=== PATIENT | female | born 1945 | race Caucasian/White ===

== ENCOUNTER → 2024-01-01 05:00 | Outpatient (REF) | payer MEDICARE, SELFPAY ==
[2024-01-01 08:41] LABS: Hematocrit 38.7 % (37-47); Hemoglobin 12.7 g/dL (12.0-15.0); Mean Corp Hgb Conc 32.8 g/dL (32-36); Mean Corpuscular Hgb 29.3 pg (27.0-32.0); Mean Corpuscular Volume 89.2 fL (81-99); Mean Platelet Vol. 9.1 fl (6.2-12.0); Platelet Count 448 K/mm3 (150-450); RBC Distribution Width CV 13.9 % (11.6-14.6); RBC Distribution Width SD 45.8 fl (35.1-43.9); Red Blood Count 4.34 M/mm3 (4.2-5.4); White Blood Count 10.5 K/mm3 (4.4-11.0)
[2024-01-01 09:21] LABS: Anion Gap 6 (5-15); BUN 12 mg/dL (7-18); BUN/Creat Ratio 14.8 RATIO (10-20); Calcium,Total 9.8 mg/dL (8.5-10.1); Chloride 94 mmol/L (98-107); Cholesterol 129 mg/dL (200); Creatinine, Serum 0.81 mg/dL (0.55-1.02); EST Glomerular Filtration Rate 73 mL/min (>60); Est Glom Filt Rate - Afr Amer 88 mL/min (>60); Glucose 121 mg/dL (74-106); High Density Lipoprotein 55 mg/dL; Magnesium 1.9 mg/dL (1.6-2.6); Sodium Level 127 mmol/L (136-145); Thyroid Stim Hormone (TSH) 7.63 uIU/mL (0.358-3.74); Triglycerides 171 mg/dL; Very Low Density Lipoprotein 34 mg/dL (5-40)
[2024-01-01 12:38] LABS: Hemoglobin A1c 5.5 % (3.8-5.6)
== END ==
LOC: OLS.ACW100 05:00
PROVIDERS: Visit Provider Family Medicine
DX: S22.41XD Multiple fractures of ribs, right side, subsequent encounter for fracture with routine healing (principal); J94.2 Hemothorax; R26.2 Difficulty in walking, not elsewhere classified; R27.9 Unspecified lack of coordination
CPT/HCPCS: 36415; 80048; 80061; 82306; 83036; 83735; 84443; 85027

== ENCOUNTER → 2024-01-10 | Outpatient (REF) | payer MEDICARE, SELFPAY ==
[2024-01-10 08:28] LABS: Hematocrit 34.7 % (37-47); Hemoglobin 11.3 g/dL (12.0-15.0); Mean Corp Hgb Conc 32.6 g/dL (32-36); Mean Platelet Vol. 9.7 fl (6.2-12.0); Platelet Count 239 K/mm3 (150-450); RBC Distribution Width CV 13.4 % (11.6-14.6); RBC Distribution Width SD 45.4 fl (35.1-43.9); Red Blood Count 3.77 M/mm3 (4.2-5.4); White Blood Count 7.8 K/mm3 (4.4-11.0)
[2024-01-10 09:06] LABS: Anion Gap 3 (5-15); BUN 19 mg/dL (7-18); BUN/Creat Ratio 21.1 RATIO (10-20); Calcium,Total 9.8 mg/dL (8.5-10.1); Chloride 103 mmol/L (98-107); EST Glomerular Filtration Rate 65 mL/min (>60); Est Glom Filt Rate - Afr Amer 78 mL/min (>60); Glucose 159 mg/dL (74-106); Potassium 4.3 mmol/L (3.5-5.1); Sodium Level 135 mmol/L (136-145)
== END ==
LOC: OLS.ACW100 05:00
PROVIDERS: Visit Provider Family Medicine
DX: J20.8 Acute bronchitis due to other specified organisms (principal); J45.909 Unspecified asthma, uncomplicated
CPT/HCPCS: 36415; 80048; 85027

== ENCOUNTER → 2024-01-17 05:00 | Outpatient (REF) | payer MEDICARE, SELFPAY ==
[2024-01-17 07:46] LABS: Hematocrit 36.3 % (37-47); Hemoglobin 11.7 g/dL (12.0-15.0); Mean Corp Hgb Conc 32.2 g/dL (32-36); Mean Corpuscular Hgb 29.9 pg (27.0-32.0); Mean Corpuscular Volume 92.8 fL (81-99); Mean Platelet Vol. 9.7 fl (6.2-12.0); Platelet Count 274 K/mm3 (150-450); RBC Distribution Width CV 13.7 % (11.6-14.6); RBC Distribution Width SD 46.3 fl (35.1-43.9); Red Blood Count 3.91 M/mm3 (4.2-5.4); White Blood Count 7.6 K/mm3 (4.4-11.0)
[2024-01-17 08:07] LABS: Anion Gap 4 (5-15); BUN 19 mg/dL (7-18); BUN/Creat Ratio 20.2 RATIO (10-20); Calcium,Total 10.2 mg/dL (8.5-10.1); Chloride 106 mmol/L (98-107); Creatinine, Serum 0.94 mg/dL (0.55-1.02); EST Glomerular Filtration Rate 61 mL/min (>60); Est Glom Filt Rate - Afr Amer 74 mL/min (>60); Glucose 77 mg/dL (74-106); Potassium 4.3 mmol/L (3.5-5.1); Sodium Level 137 mmol/L (136-145)
== END ==
LOC: OLS.ACW100 05:00
PROVIDERS: Visit Provider Family Medicine
DX: M62.81 Muscle weakness (generalized) (principal); S22.41XD Multiple fractures of ribs, right side, subsequent encounter for fracture with routine healing; J94.2 Hemothorax; R53.1 Weakness; R26.2 Difficulty in walking, not elsewhere classified; R27.9 Unspecified lack of coordination
CPT/HCPCS: 36415; 80048; 85027

== ENCOUNTER → 2024-10-23 | Outpatient (REF) | payer MEDICARE, SELFPAY ==
[2024-10-23 08:40] LABS: Hematocrit 40.2 % (37-47); Mean Corp Hgb Conc 32.3 g/dL (32-36); Mean Corpuscular Hgb 29.1 pg (27.0-32.0); Mean Corpuscular Volume 90.1 fL (81-99); Mean Platelet Vol. 9.8 fl (6.2-12.0); Platelet Count 239 K/mm3 (150-450); RBC Distribution Width CV 13.2 % (11.6-14.6); RBC Distribution Width SD 43.3 fl (35.1-43.9); Red Blood Count 4.46 M/mm3 (4.2-5.4); White Blood Count 9.9 K/mm3 (4.4-11.0)
[2024-10-23 11:10] LABS: ALB/GLOB Ratio 1.3 RATIO (0.9-2.4); AST(SGOT) 15 U/L (<=31); Alanine Aminotransfer ALT/SGPT 10 U/L (<=34); Albumin, Serum 3.4 g/dL (3.4-4.8); Alkaline Phosphatase 58 U/L (35-104); Anion Gap 8 (5-15); BUN 23 mg/dL (4-19); BUN/Creat Ratio 27.6 RATIO (10-20); Calcium 10.2 mg/dL (7.6-11.0); Carbon Dioxide 24.2 mmol/L (22.0-29.0); Chloride 103 mmol/L (96-108); Creatinine, Serum 0.8 mg/dL (0.6-1.0); EST Glomerular Filtration Rate 72 (>60); Globulin 2.7 g/dL (2.2-4.2); Glucose 178 mg/dL (70-99); Magnesium 1.9 mg/dL (1.5-2.2); Potassium 4.3 mmol/L (3.3-5.1); Protein, Total 6.1 g/dL (5.9-8.4); Sodium Level 136 mmol/L (133-145); Total Bilirubin 0.28 mg/dL (0.00-1.30); Vitamin D,25 Hydroxy 29.8 ng/mL (30-100)
[2024-10-23 20:13] LABS: Cholesterol 173 mg/dL (<=200); High Density Lipoprotein 38 mg/dL; Low Density Lipoprotein Calc. 94 mg/dL; Triglycerides 208 mg/dL; Very Low Density Lipoprotein 42 mg/dL (5-40); cholesterol:hdl ratio screen 4.58
== END ==
LOC: OLS.ACW100 05:00
PROVIDERS: Visit Provider Family Medicine
DX: N39.0 Urinary tract infection, site not specified (principal); R53.81 Other malaise; R53.83 Other fatigue
CPT/HCPCS: 36415; 80053; 80061; 82306; 83036; 83735; 84443; 85027

== ENCOUNTER → 2024-11-03 | Outpatient (REF) | payer MEDICARE, SELFPAY ==
[2024-11-04 08:56] LABS: Color, Urine Yellow (Yellow); Glucose, Dipstick Normal (Normal); Ketone-Dipstick Negative (Negative); Leukocyte Esterase-Dipstick 25 /ul (Negative); Nitrite-Dipstick Negative (Negative); Occult Blood-Urine 25 /ul (Negative); Protein-Dipstick 30 mg/dl (Negative); Specific Gravity, Urine 1.015 (1.002-1.030); Urine Bilirubin Dipstick Negative (Negative); Urine Clarity Clear (Clear); Urine Urobilinogen Normal (Normal)
== END ==
LOC: OLS.ACW100 21:30
PROVIDERS: Visit Provider Family Medicine
DX: N39.0 Urinary tract infection, site not specified (principal)
CPT/HCPCS: 81002; 87086; 87088

== ENCOUNTER → 2025-06-11 05:00 | Outpatient (REF) | payer MEDICARE, SELFPAY ==
[2025-06-11 09:31] LABS: Hematocrit 38.8 % (37-47); Hemoglobin 13.2 g/dL (12.0-15.0); Mean Corp Hgb Conc 34.0 g/dL (32-36); Mean Corpuscular Volume 87.6 fL (81-99); Mean Platelet Vol. 10.0 fl (6.2-12.0); Platelet Count 264 K/mm3 (150-450); RBC Distribution Width CV 12.8 % (11.6-14.6); RBC Distribution Width SD 41.2 fl (35.1-43.9); Red Blood Count 4.43 M/mm3 (4.2-5.4); White Blood Count 8.5 K/mm3 (4.4-11.0)
[2025-06-11 10:02] LABS: AST(SGOT) 16 U/L (<=31); Alanine Aminotransfer ALT/SGPT 8 U/L (<=34); Albumin, Serum 3.6 g/dL (3.4-4.8); Alkaline Phosphatase 43 U/L (35-104); Anion Gap 9 (5-15); BUN 24 mg/dL (4-19); BUN/Creat Ratio 27.4 RATIO (10-20); Calcium,Total 10.4 mg/dL (7.6-11.0); Carbon Dioxide 25.7 mmol/L (21.0-32.0); Chloride 103 mmol/L (98-108); Cholesterol 188 mg/dL (<=200); Globulin 2.5 g/dL (2.2-4.2); Glucose 152 mg/dL (70-99); Low Density Lipoprotein Calc. 105 mg/dL; Potassium 4.3 mmol/L (3.3-5.1); Triglycerides 217 mg/dL; Very Low Density Lipoprotein 43 mg/dL (5-40); Vitamin D,25 Hydroxy 33.0 ng/mL (30-100); cholesterol:hdl ratio screen 4.76
== END ==
LOC: OLS.ACW100 05:00
PROVIDERS: Visit Provider Family Medicine
DX: N39.0 Urinary tract infection, site not specified (principal); W19.XXXD Unspecified fall, subsequent encounter; Z74.1 Need for assistance with personal care; R53.81 Other malaise; J94.2 Hemothorax
CPT/HCPCS: 36415; 80053; 80061; 82306; 83036; 85027

== ENCOUNTER → 2025-07-03 05:00 | Outpatient (REF) | payer MEDICARE, SELFPAY ==
--- OUTSIDE RECORDS SUMMARY | 2025-07-03 04:11 | XMS RPT_ITS | CCD ---
Author Organization [facility] Care Team Providers Care Bond Analyst Name Role Phone Grecia Mccabe Primary Care Provider [phone] Farida OG, Neno Tipton Primary Care Provider Farida OG, Neno Tipton Primary Care Provider Eliot OG, Grecia Primary Care Provider Mónica Roach Attending Provider Unavailsumi Iqbal MD, Neno Tipton Primary Care Provider Farida OG, Neno Tipton Primary Care Provider Ezzie DYE MAKER - PROGRAM DEVELOPMENT MANAGER, Agueda Unavailable Farida OG, Neno Tipton Primary Care Provider Ezzie DYE MAKER - PROGRAM DEVELOPMENT MANAGER, Agueda Unavailable [phone] Mónica Roach Attending Unavailable Mónica Roach Attending Unavailable Mónica Roach Attending Unavailable Neno Euceda MD Unavailable [phone] FARIDA, NENO Primary Care Unavailable MÓNICA TIWARI Admitting Unavailable ARIES CORTEZ Consulting Unavailable WALDO GUILLEN Attending Unavailable IQBAL, NENO Primary Care Unavailable GUILLENWALDO Attending Unavailable GUILLEN WALDO Admitting Unavailable MANISHA PASTOR Consulting Unavailable IQBAL, NENO Primary Care Unavailable JOSY DUENAS Admitting Unavailable SEEMA BARAHONA Attending Unavailable YIFAN DOOLEY Attending Unavailable IQBAL, NENO Primary Care Unavailable EZZIE, AGUEDA Attending Unavailable EZZIE, AGUEDA Referring Unavailable IQBAL, NENO Primary Care Unavailable EZZIE, AGUEDA Attending Unavailable BIRDIE STEELE Referring Unavailable IQBAL, NENO Primary Care Unavailable JOHN CRUZ Attending Unavailable IQBAL, NENO Primary Care Unavailable JOHN CRUZ Attending Unavailable IQBAL, NENO Primary Care Unavailable IQBAL, NENO Primary Care Unavailable EZZIE, AGUEDA Attending Unavailable AGUEDA BURCH Attending Unavailable [facility] Primary [facility] Unavailable LAZARA MOCTEZUMA Attending Unavailable [facility] Primary [facility] Unavailable Allergies Allergy Classification Reported Allergen(s) Allergy Type Date of Onset Reaction(s) Facility (20 sources) Aluminum aspirin Drug Allergy 5 Swelling, Hives [place] (4 sources) Sulfonamides (Antibiotic) Propensity to adverse reactions to drug 5 Swelling [place] (20 sources) Penicillins Propensity to adverse reactions 2 [facility] (20 sources) Sulfonamides (Antibiotic) Drug Intolerance 5 Hives, Swelling [facility] Medications Current Medications Medication Drug Class(es) Dates Sig (Normalized) Sig (Original) acetaminophen 325 mg / oxyCODONE hydrochloride 5 mg oral tablet (4 sources) Opioid Agonist Start: 08-01-2021 End: 08-06-2021 oxyCODONE-acetamin ophen (PERCOCET) 5-325 MG per tablet Indications: Closed fracture of one rib of left side, initial encounter Take 1 tablet by mouth every 6 hours as needed for Pain for up to 5 days. Intended supply: 5 days. Take lowest dose possible to manage pain 20 tablet 0 08/01/2021 08/06/2021 Active Start: 01-21-2020 oxyCODONE-acet aminophen (PERCOCET) 5-325 MG per tablet 1 tablet Start: 01-21-2020 End: 01-28-2020 take 1-2 tablets by mouth every four hours as needed for pain oxyCODONE-acetaminophen (PERCOCET) 5-325 MG per tablet Indications: Hip fracture requiring operative repair, right, closed, initial encounter ([facility]) Take 1-2 tablets by mouth every 4 hours as needed for Pain for up to 7 days. 42 tablet 0 01/21/2020 01/28/2020 Active End: 01-21-2020 take 1 tablet by mouth three times daily oxyCODONE-acetaminophen (PERCOCET) 5-325 MG per tablet Take 1 tablet by mouth 3 times daily. 0 01/21/2020 Discontinued (LIST CLEANUP) Blood Glucose Monitoring Suppl (BLOOD GLUCOSE MONITOR SYSTEM) w/Device KIT (1 source) Start: 01-20-2020 Blood Glucose Monitoring Suppl (BLOOD GLUCOSE MONITOR SYSTEM) w/Device KIT Indications: Uncontrolled type 2 diabetes mellitus without complication, with long-term current use of insulin (HCC) 1 Device by Does not apply route daily Dispense what is covered by insurance 1 kit 0 01/20/2020 Active bupivacaine hydrochloride 2.5 mg/ml injectable solution (1 source) Amide Local Anesthetic Start: 06-09-2020 bupivacaine (MARCAINE) 0.25 % injection 75 mg Continuous Glucose Sensor (Dexcom G7 Sensor) misc (20 sources) Continuous Gluco se Sensor (Dexcom G7 Sensor) misc 1 Device as needed. Use a new sensor every 10 days. Active docusate sodium 50 mg oral capsule (1 source) Start: 01-21-2020 take 2 capsules by mouth twice daily as needed for pain docusate sodium (COLACE) 50 MG capsule Take 2 capsules by mouth 2 times daily 2x daily as needed for constipation while on pain meds 60 capsule 0 01/21/2020 Active docusate sodium 50 mg / sennosides, fdc 8.6 mg oral tablet (3 sources) Start: 01-21-2020 take 1 tablet by mouth twice daily 1 tablet, Oral, 2 TIMES DAILY, First dose on Sun01/21/20 at 2100, Post-op Start: 12-03-2019 take 2 tablets by [facility] once daily sennosides-docusate sodium (SENOKOT-S) 8.6-50 MG tablet Take 2 tablets by mouth daily 0 12/03/2019 Active Start: 12-03-2019 sennosides-doc usate sodium (SENOKOT-S) 8.6-50 MG tablet 2 tablet doxycycline hyclate 100 mg oral tablet (1 source) Tetracycline-class Drug Start: 01-21-2020 End: 01-28-2020 take 1 tablet by mouth twice daily doxycycline hyclate (VIBRA-TABS) 100 MG tablet Take 1 tablet by mouth 2 times daily for 7 days 14 tablet 0 01/21/2020 01/28/2020 Active ergocalciferol 1.25 mg oral capsule (8 sources) Provitamin D2 Compound Start: 12-29-2023 End: 01-22-2024 take 1 capsule by mouth every week ergocalciferol (Vitamin D2) 1.25 MG (42579 UT) capsule Take 1 capsule (1.25 mg) by mouth 1 (one) time per week for 2 doses. 0 01/14/2024 01/22/2024 Active Start: 12-15-2023 End: 12-24-2023 take 1.25 mg by mouth every week 1.25 mg, Oral, Weekly , First dose on 12/15/23 at 0900, For 4 doses fenofibrate 54 mg oral tablet (20 sources) Peroxisome Proliferator Receptor alpha Agonist Start: 12-19-2023 End: 06-09-2025 take 1 tablet by mouth once daily fenofibrate (Tricor) 54 MG tablet Take 1 tablet (54 mg) by mouth daily. 30 tablet 12/25/2023 Active Start: 07-04-2022 End: 12-24-2023 Start: 07-04-2022 End: 12-31-2022 take 1 tablet by mouth in the morning fenofibrate (Tricor) 145 MG tablet Indications: Mixed hyperlipidemia Take 1 tablet (145 mg) by mouth in the morning. 30 tablet 5 07/04/2022 Active Start: 03-30-2021 take 1 capsule by [facility] once daily fenofibric acid (FIBRICOR) 45 MG CPDR capsule Indications: Mixed hyperlipidemia TAKE 1 CAPSULE BY MOUTH EVERY DAY 90 capsule 1 03/30/2021 Active Start: 01-21-2020 take 54 mg by mouth once daily 54 mg, Oral, DAILY, First dose on Sun01/21/20 at 2100 Substituted for Fenofibrate (Non-Formulary Dose). Start: 11-29-2019 take 54 mg by mouth once daily 54 mg, Oral, DAILY, First dose on 11/29/19 at 0900 Substituted for Fenofibrate (Non-Formulary Dose). Start: 09-25-2019 take 1 capsule by mo ut once daily fenofibric acid (FIBRICOR) 45 MG CPDR capsule Indications: Mixed hyperlipidemia TAKE 1 CAPSULE BY MOUTH DAILY 90 capsule 0 09/25/2019 Active Start: 05-13-2019 take 1 capsule by mo [facility] once daily fenofibric acid (FIBRICOR) 45 MG CPDR capsule TAKE 1 CAPSULE BY MOUTH DAILY 90 capsule 0 05/13/2019 Active glipiZIDE 10 mg oral tablet (5 sources) Sulfonylurea Start: 07-04-2021 take 1 tablet by mouth twice daily before mealtime glipiZIDE (GLUCOTROL) 10 MG tablet Indications: Type 2 diabetes mellitus with hyperglycemia, with long-term current use of insulin ([facility]) TAKE 1 TABLET BY MOUTH TWICE A DAY BEFORE MEALS 180 tablet 1 07/04/2021 Active Start: 09-25-2019 take 1 tablet by daniel th twice daily before mealtime glipiZIDE (GLUCOTROL) 10 MG tablet Indications: Uncontrolled type 2 diabetes mellitus without complication, with long-term current use of insulin ([facility]) Take 1 tablet by mouth 2 times daily (before meals) 180 tablet 0 09/25/2019 Active Start: 05-13-2019 take 1 tablet by daniel th twice daily before mealtime glipiZIDE (GLUCOTROL) 10 MG tablet Take 1 tablet by mouth 2 times daily (before meals) 180 tablet 0 05/13/2019 Active HYDROmorphone (DILAUDID) injection 0.25 mg (1 source) Start: 01-21-2020 HYDROmorphone (DILAUDID) injection 0.25 mg magnesium hydroxide 80 mg/ml oral suspension (1 source) Start: 01-21-2020 take 30 mL by mouth once daily as needed for constipation 30 mL, Oral, DAILY PRN, Constipation, Starting 01/21/20 at 1910 First line therapy for constipation. Post-op 5 ml metoprolol tartrate 1 mg/ml injection (1 source) beta-Adrenerg ic Gustavo Start: 11-29-2019 metoprolol (LOPRESSOR) injection 5 mg mirtazapine 30 mg oral tablet (16 sources) Start: 05-04-2022 End: 12-14-2023 take 1 tablet by mouth once daily mirtazapine (Remeron) 30 MG tablet Take 1 tablet (30 mg) by mouth Nightly. 90 tablet 1 09/01/2022 11/30/2022 Active Start: 03-30-2021 take 1 tablet by daniel th once daily in the evening mirtazapine (REMERON) 30 MG tablet Indications: Mood disorder ([facility]) TAKE 1 TABLET BY MOUTH EVERY DAY IN THE EVENING 90 tablet 1 03/30/2021 Active Start: 01-21-2020 take 30 mg by mouth once daily 30 mg, Oral, NIGHTLY, First dose on 01/21/20 at 2100 Start: 11-29-2019 take 15 mg by mouth once daily 15 mg, Oral, NIGHTLY, First dose on Sun11/29/19 at 2100 Start: 09-25-2019 take 1 tablet by daniel th once daily in the evening mirtazapine (REMERON) 30 MG tablet Indications: Mood disorder (HCC) TAKE 1 TABLET BY MOUTH EVERY DAY IN THE EVENING 90 tablet 0 09/25/2019 Active Start: 05-13-2019 take 1 tablet by daniel th once daily in the evening mirtazapine (REMERON) 30 MG tablet Indications: Mood disorder (HCC) TAKE 1 TABLET BY MOUTH EVERY DAY IN THE EVENING 90 tablet 0 05/13/2019 Active morphine sulfate (PF) injection 1 mg (1 source) Start: 11-29-2019 morphine sulfate (PF) injection 1 mg nitrofurantoin, macrocrystals 25 mg / nitrofurantoin, monohydrate 75 mg oral capsule (6 sources) Nitrofuran Antibacterial Start: 07-01-2025 End: 07-06-2025 take 1 capsule by mouth every twelve hours nitrofurantoin, macrocrystal-mo nohydrate, (Macrobid) 100 MG capsule Take 1 capsule (100 mg) by mouth every 12 hours for 5 days. 10 capsule 07/01/2025 07/06/2025 Active Start: 07-01-2025 End: 07-01-2025 take 1 dose by mouth twice daily 100 mg, Oral, Every 12 hours scheduled (2 times per day), First dose on Sun07/01/25 at 0900, For 11 days, Suspected Indication (Select all that apply): Urinary Tract Infection oxyCODONE hydrochloride 5 mg oral tablet (7 sources) Opioid Agonist Start: 12-24-2023 End: 12-29-2023 Start: 11-29-2019 oxyCODONE (JOSE J ICODONE) immediate release tablet 10 mg Start: 11-29-2019 End: 12-04-2019 take 1 tablet by mouth every six hours as needed for pain oxyCODONE (ROXICODONE) 5 MG immediate release tablet Indications: Closed displaced intertrochanteric fracture of right femur, initial encounter ([facility]) Take 1 tablet by mouth every 6 hours as needed for Pain for up to 3 days. 12 tablet 0 12/01/2019 12/04/2019 Active Promethazine (1 source) Phenothiazine Start: 11-29-2019 promethazine (PHENERGAN) tablet 12.5 mg sodium chloride flush 0.9 % injection 3 mL (1 source) Start: 11-29-2019 sodium chloride flush 0.9 % injection 3 mL tiZANidine 2 mg oral tablet (4 sources) Central alpha-2 Adrenergic Agonist Start: 12-11-2019 take 1 tablet by mouth every eight hours as needed tiZANidine (ZANAFLEX) 2 MG tablet Indications: Neck pain TAKE 1 TABLET BY MOUTH EVERY 8 HOURS NEEDED (POST CVA) 90 tablet 0 12/11/2019 Active Start: 11-29-2019 take 2 mg by mouth e very eight hours as needed 2 mg, Oral, EVERY 8 HOURS PRN, post CVA, Starting 11/29/19 at 0809 Start: 05-13-2019 take 1 tablet by daniel th every eight hours as needed tiZANidine (ZANAFLEX) 2 MG tablet Indications: Neck pain Take 1 tablet by mouth every 8 hours as needed (post CVA) 90 tablet 1 05/13/2019 Active traMADol hydrochloride 50 mg oral tablet (3 sources) Opioid Agonist Start: 01-21-2020 End: 01-28-2020 take 50 mg by mouth every six hours 50 mg, Oral, EVERY 6 HOURS, First dose on Sun01/21/20 at 1930 Ok for patient to refuse Start: 01-16-2020 End: 01-21-2020 take 1 tablet by mouth every four hours as needed for pain, then take 1 tablet by mouth as needed for pain traMADol (ULTRAM) 50 MG tablet Indications: Closed displaced intertrochanteric fracture of right femur, initial encounter ([facility]) Take 1 tablet by mouth every 4 hours as needed for Pain for up to 7 days. Intended supply: 7 days. Take lowest dose possible to manage pain 42 tablet 0 01/16/2020 01/21/2020 Discontinued (REORDER) 1 ml triamcinolone acetonide 40 mg/ml prefilled syringe (2 sources) Corticosteroid Start: 06-09-2020 End: 08-30-2022 triamcinolone acetonide (KENALOG-40) injection 40 mg Completed/Discontinued Medications Medication Drug Class(es) Dates Sig (Normalized) Sig (Original) Acetaminophen (20 sources) Start: 06-28-2025 End: 07-01-2025 take 1 tablet by mouth every six hours as needed for pain and fever acetaminophen (Tylenol) tablet 650 mg Start: 06-05-2025 End: 06-09-2025 take 1 tablet by mouth every six hours as needed for pain and fever acetaminophen (Tylenol) tablet 650 mg Start: 10-18-2024 End: 10-23-2024 take 1 tablet by mouth every six hours as needed for pain and fever acetaminophen (Tylenol) tablet 650 mg Start: 01-11-2024 End: 01-15-2024 take 1 tablet by mouth every six hours as needed for pain and fever acetaminophen (Tylenol) tablet 650 mg Start: 12-13-2023 End: 01-24-2024 take 2 tablets by mouth every eight hours acetaminophen (Tylenol) 500 MG tablet Take 2 tablets (1,000 mg) by mouth in the morning and 2 tablets (1,000 mg) at noon and 2 tablets (1,000 mg) before bedtime. Do all this for 10 days. 60 tablet 0 12/24/2023 01/14/2024 Discontinued Start: 01-21-2020 take 650 mg by mouth every six hours, then take 4000 mg by mouth every twenty-four hours 650 mg, Oral, EVERY 6 HOURS, First dose on Sun01/21/20 at 1930 Maximum dose of acetaminophen is 4000 mg from all sources in 24 hours. Post-op Start: 01-21-2020 End: 01-21-2020 acetaminophen (TYLENOL) tabl et 1,000 mg Start: 12-01-2019 take 2 tablets by mo uth every eight hours acetaminophen (APAP EXTRA STRENGTH) 500 MG tablet Take 2 tablets by mouth every 8 hours 120 tablet 0 12/01/2019 Active Start: 11-29-2019 acetaminophen (TYLENOL) tablet 650 mg albuterol 0.833 mg/ml / ipratropium bromide 0.167 mg/ml inhalation solution (18 sources) Anticholinergic, beta2-Adrenergic Agonist Start: 12-24-2023 End: 12-23-2024 Start: 12-13-2023 End: 12-23-2024 ipratropium-albuterol (Duo-N eb) 0.5-2.5 mg/3 mL nebulizer solution Take 3 mL by nebulization 2 times daily as needed for wheezing. 180 mL 11 12/24/2023 10/21/2024 Discontinued (Discontinued by another clinician) ascorbic acid 500 mg chewable tablet (20 sources) Vitamin C Start: 06-28-2025 End: 07-01-2025 take 1000 mg by mouth once daily 1,000 mg, Oral, Daily, First dose on Sun06/28/25 at 2000 Start: 06-05-2025 End: 06-09-2025 take 1000 mg by mouth once daily 1,000 mg, Oral, Daily , First dose on Sun06/05/25 at 1500 take 2 tablets by [facility] once daily ascorbic acid (Vitamin C) 500 MG tablet Take 1,000 mg by mouth daily. Active End: 12-24-2023 calcium carbonate 500 mg chewable tablet (20 sources) Start: 06-05-2025 End: 06-09-2025 take 500 mg by mouth once daily 500 mg, Oral, Daily, First dose on Sun06/05/25 at 1545 take 1 tablet by mouth once samir y Calcium Carbonate (CALCIUM 600 PO) Take 1 tablet by mouth daily. Active calcium chloride 0.0014 meq/ ml / potassium chloride 0.004 meq/ml / sodium chloride 0.103 meq/ml / sodium lactate 0.028 meq/ml injectable solution (11 sources) Start: 12-19-2023 End: 12-19-2023 500 mL, IntraVENous, at 250 mL/hr, Administer over 2 Hours, Once, On Sun12/19/23 at 1600, For 1 dose Start: 12-13-2023 End: 12-14-2023 500 mL, IntraVENous, at 250 mL/hr, Administer over 2 Hours, Once, On Sun12/13/23 at 1415, For 1 dose Start: 12-13-2023 End: 12-15-2023 take 100 mL intravenously every hour 100 mL/hr, IntraVENous, Continuous, Starting on Sun12/13/23 at 0305 Start: 01-21-2020 End: 01-21-2020 lactated ringers infusion ceFAZolin 2000 mg injection (3 sources) Cephalosporin Antibacterial Start: 12-13-2023 End: 12-13-2023 2,000 mg, IntraVENous, Administer over 30 Minutes, Once, On Sun12/13/23 at 0345, For 1 dose, premix bag, Suspected Indication (Select all that apply): Surgical Prophylaxis Start: 01-21-2020 End: 02-01-2020 2 g, Intravenous, EVERY 8 HO URS, 30 doses, First dose on Sun01/21/20 at 2230, Last dose on 01/31/20 at 1830, Post-op ceFAZolin (ANCEF) 1.5 g in dextrose 5 % 100 mL IVPB (1 source) Start: 11-30-2019 End: 11-30-2019 1.5 g, Intravenous, EVERY 8 HOURS, 2 doses, First dose on 11/30/19 at 1400, Last dose on 11/30/19 at 2200 ceFAZolin (ANCEF) 2 g in dextrose 5 % 100 mL IVPB (1 source) Start: 01-21-2020 End: 01-21-2020 ceFAZolin (ANCEF) 2 g in dex trose 5 % 100 mL IVPB cefepime (Maxipime) 2,000 mg in sodium chloride 0.9 % 50 mL IVPB Mini-Bag Plus (4 sources) Start: 06-28-2025 End: 06-28-2025 Start: 06-05-2025 End: 06-06-2025 take 2000 mg intravenously every twelve hours 2,000 mg, IntraVENous, at 100 mL/hr, Administer over 30 Minutes, Every 12 hours, First dose on Sun06/05/25 at 1020, Mini-Bag Plus bag, Suspected Indication (Select all that apply): Skin and Soft Tissue Infection cefTRIAXone (ROCEPHIN) 1 g I VPB in 50 mL D5W minibag (1 source) Start: 11-29-2019 End: 11-29-2019 cefTRIAXone (ROCEPHIN) 1 g I VPB in 50 mL D5W minibag cefTRIAXone (Rocephin) 1,000 mg in sodium chloride 0.9 % 50 mL IVPB Mini-Bag Plus (12 sources) Start: 06-28-2025 End: 07-01-2025 1,000 mg, IntraVENous, at 10 0 mL/hr, Administer over 30 Minutes, Every 24 hours, First dose on 06/28/25 at 2030, Mini-Bag Plus bag, Suspected Indication (Select all that apply): Aspiration Pneumonia Start: 06-06-2025 End: 06-07-2025 1,000 mg, IntraVENous, at 10 0 mL/hr, Administer over 30 Minutes, Every 24 hours, First dose on 06/06/25 at 1030, Mini-Bag Plus bag, Suspected Indication (Select all that apply): Urinary Tract Infection Start: 10-19-2024 End: 10-22-2024 1,000 mg, IntraVENous, at 10 0 mL/hr, Administer over 30 Minutes, Every 24 hours, First dose on 10/19/24 at 2130, For 4 doses, Mini-Bag Plus bag, Suspected Indication (Select all that apply): Urinary Tract Infection Start: 10-18-2024 End: 10-18-2024 1,000 mg, IntraVENous, at 10 0 mL/hr, Administer over 30 Minutes, Once, On 10/18/24 at 2105, For 1 dose, Mini-Bag Plus bag, Suspected Indication (Select all that apply): Urinary Tract Infection Start: 01-12-2024 End: 01-15-2024 cefTRIAXone (Rocephin) 1,000 mg in sodium chloride 0.9 % 50 mL IVPB Mini-Bag Plus Start: 01-10-2024 End: 01-11-2024 cefTRIAXone (Rocephin) 1,000 mg in sodium chloride 0.9 % 50 mL IVPB Mini-Bag Plus cefTRIAXone sodium 1 g in dextrose 5 % 50 mL IVPB (add-vantage) (1 source) Start: 11-30-2019 End: 12-01-2019 1 g, Intravenous, EVERY 24 HOURS, First dose on Sun11/30/19 at 0800, Until Discontinued cephalexin 500 mg oral capsule (5 sources) Cephalosporin Antibacterial Start: 10-22-2024 End: 10-23-2024 take 500 mg by mouth twice daily 500 mg, Oral, 2 times daily, First dose on Sun10/22/24 at 1630, Suspected Indication (Select all that apply): Urinary Tract Infection Start: 08-30-2022 End: 09-04-2022 cephalexin (Keflex) 500 MG c apsule Indications: Dysuria Take 1 capsule (500 mg) by mouth in the morning and 1 capsule (500 mg) at noon and 1 capsule (500 mg) in the evening and 1 capsule (500 mg) before bedtime. Do all this for 5 days. 20 capsule 0 08/30/2022 09/04/2022 Active Start: 01-21-2020 End: 01-28-2020 take 1 capsule by mouth four times daily cephALEXin (KEFLEX) 500 MG capsule Take 1 capsule by mouth 4 times daily for 7 days 28 capsule 0 01/21/2020 01/28/2020 Active cholecalciferol 0.05 mg oral tablet (20 sources) Vitamin D Start: 06-28-2025 End: 07-01-2025 take 5000 [IU] by mouth once daily 5,000 Units, Oral, Daily, First dose on 06/28/25 at 2000 Start: 06-05-2025 End: 06-09-2025 take 5000 [IU] by mouth once daily 5,000 Units, Oral, Daily, First dose on Sun06/05/25 at 1500 Start: 12-05-2023 take 1 tablet by dnaiel th once daily cholecalciferol (Vitamin D3) 25 MCG (1000 UT) tablet Take 5,000 Units by mouth daily. 125mcg 12/05/2023 Active Start: 12-05-2023 End: 10-23-2024 cholecalciferol (Vitamin D3) 25 MCG (1000 UT) tablet Take by mouth daily. 12/05/2023 Active Start: 11-29-2019 take 5000 [IU] by mo uth once daily 5,000 Units, Oral, DAILY, First dose on 11/29/19 at 0900 End: 12-24-2023 take 1 tablet by daniel th in the morning cholecalciferol (D3-5) 5,000 Units tablet Take 5,000 Units by mouth in the morning. 0 Active Cholecalciferol (VITAMIN D3) 5000 UNITS TABS Take 1,000 Units by mouth daily 0 Active cholecalciferol 9.52 unt/ml / glucose 357 mg/ml oral gel (12 sources) Vitamin D Start: 06-28-2025 End: 07-01-2025 Start: 06-05-2025 End: 06-09-2025 Start: 10-18-2024 End: 10-23-2024 Start: 01-11-2024 End: 01-15-2024 15 g, Oral, As needed, low b lood sugar, Starting on Sun01/11/24 at 0325, If blood glucose less than 50 mg/dL and patient ALERT and NOT NPO, give 2 tubes glucose gel. If blood glucose less than 70 mg/dL and patient ALERT and NOT NPO, give 1 tube glucose gel. Repeat blood glucose in 15 minutes. If blood glucose is less than 70 mg/dL, repeat treatment and recheck blood glucose in 15 minutes x2 and notify provider. Start: 12-13-2023 End: 12-24-2023 15 g, Oral, As needed, low b lood sugar, Starting on Sun12/14/23 at 1056, If blood glucose less than 50 mg/dL and patient ALERT and NOT NPO, give 2 tubes glucose gel. If blood glucose less than 70 mg/dL and patient ALERT and NOT NPO, give 1 tube glucose gel. Repeat blood glucose in 15 minutes. If blood glucose is less than 70 mg/dL, repeat treatment and recheck blood glucose in 15 minutes x2 and notify provider. cyancobalamin (Vitamin B-12) tablet 2,500 mcg (2 sources) Start: 06-05-2025 End: 06-09-2025 take 2500 ug by mouth once daily 2,500 mcg, Oral, Daily, First dose on Sun06/05/25 at 1500 dexamethasone phosphate 10 mg/ml injectable solution (1 source) Corticosteroid Start: 01-21-2020 End: 01-22-2020 10 mg, Intravenous, EVERY 8 HOURS, First dose on Sun01/21/20 at 1930, For 2 doses, Post-op donepezil hydrochloride 10 mg oral tablet (20 sources) Start: 06-05-2025 End: 06-09-2025 take 10 mg by mouth once daily 10 mg, Oral, Daily, First dose on Sun06/05/25 at 1500 Start: 01-21-2025 End: 01-21-2026 take 10 mg by mouth once daily 10 mg, Oral, Daily, Fir st dose on Sun06/28/25 at 2000 Start: 01-21-2025 End: 01-21-2026 take 1 tablet by mouth once daily donepezil (Aricept) 5 MG tablet Take 1 tablet (5 mg) by mouth daily. Take for 30 days and then increase to 10 mg daily next month (see other script). 30 tablet 01/21/2025 05/26/2025 Discontinued (Therapy completed) Drug or medicament (substance) (4 sources) Start: 12-13-2023 End: 12-24-2023 apply 1 dose topically every eight hours Topical, Every 8 hours, First dose on Sun12/13/23 at 1130 Start: 12-13-2023 End: 04-29-2024 Topical, As needed, dry skin , Starting on Cata 12/13/23 at 1128 0.4 ml enoxaparin sodium 100 mg/ml prefilled syringe (6 sources) Low Molecular Weight Heparin Start: 06-05-2025 End: 06-06-2025 inject 40 mg by subcutaneous injection every twenty-four hours 40 mg, SubCUTAneous, Every 24 hours scheduled (Daily), First dose on Sun06/05/25 at 1500, Indication of Use: Prophylaxis-DVT/PE, Indications: Prophylaxis of Venous Thromboembolism Start: 12-19-2023 End: 12-22-2023 inject 40 mg by subcutaneous injection every twelve hours 40 mg, SubCUTAneous, Every 12 hours, First dose (after last modification) on Sun12/19/23 at 1800, Indication of Use: Prophylaxis-DVT/PE, Indications: Prophylaxis of Venous Thromboembolism Start: 12-14-2023 End: 12-19-2023 inject 30 mg by subcutaneous injection every twelve hours 30 mg, SubCUTAneous, Every 12 hours, First dose on Sun12/14/23 at 1800, Indication of Use: Prophylaxis-DVT/PE, Indications: Prophylaxis of Venous Thromboembolism famotidine 20 mg oral tablet (15 sources) Histamine-2 Receptor Antagonist Start: 12-23-2023 End: 12-23-2024 take 1 tablet by mouth twice daily as needed for gastroesophageal reflux disease famotidine (Pepcid) 20 MG tablet Take 1 tablet (20 mg) by mouth 2 times daily as needed for heartburn (heartburn). 60 tablet 12/24/2023 10/21/2024 Discontinued (Therapy completed) Start: 01-21-2020 End: 01-21-2020 famotidine (PEPCID) tablet 2 0 mg 2 ml fentaNYL 0.05 mg/ml injection (2 sources) Opioid Agonist Start: 12-12-2023 End: 12-12-2023 take 1 dose by mouth every hour 50 mcg, IntraVENous, Once, On Sun12/12/23 at 2345, For 1 dose, If oral and IV narcotics ordered, use oral first and only use IV if oral is ineffective or cannot take oral. Do Not give oral and IV within 1 hour of each other unless specifically ordered. fluconazole 50 mg oral tablet (2 sources) Azole Antifungal Start: 06-05-2025 End: 06-05-2025 take 200 mg by mouth once 200 mg, Oral, Once, On Sun06/05/25 at 1025, For 1 dose, Coverage: Itzel, Non-albicans, Itzel albicans, Infection Site: Skin folic acid 1 mg oral tablet (10 sources) Start: 12-16-2023 End: 01-24-2024 take 1 mg by mouth once daily 1 mg, Oral, Daily, First dose on Sun01/11/24 at 0900 End: 12-24-2023 glucagon (rdna) 1 mg injecti on (20 sources) Antihypoglycemic Agent Start: 06-28-2025 End: 07-01-2025 Start: 06-05-2025 End: 06-09-2025 Start: 11-20-2024 End: 05-26-2025 inject 0.2 mL by subcutaneous injection once as needed glucagon (Gvoke HypoPen 2-Pack) 1 MG/0.2ML injection Indications: Type 2 diabetes mellitus with hyperglycemia, with long-term current use of insulin (HCC) Inject 0.2 mL (1 mg) under the skin Once as needed for low blood sugar for up to 8 doses. 2 each 3 11/20/2024 05/26/2025 Discontinued (Therapy completed) Start: 10-18-2024 End: 10-23-2024 Start: 01-11-2024 End: 01-15-2024 1 mg, IntraMUSCular, PRN, lo w blood sugar, Blood glucose less than 70 mg/dL and patient NOT ALERT or NPO and does not have IV access., Starting on Sun01/11/24 at 0325, After administration, attempt intravenous access and start D5W at 100 mL/hr. Repeat blood glucose in 15 minutes x2 and notify provider. Start: 12-14-2023 End: 12-24-2023 1 mg, IntraMUSCular, PRN, lo w blood sugar, Blood glucose less than 70 mg/dL and patient NOT ALERT or NPO and does not have IV access., Starting on Sun12/14/23 at 1056, After administration, attempt intravenous access and start D5W at 100 mL/hr. Repeat blood glucose in 15 minutes x2 and notify provider. Start: 01-21-2020 take 1 mL intravenou s route every hour 1 mg, Intramuscular, PRN, Low blood sugar, Blood glucose less than 70 mg/dL and patient NOT ALERT or NPO and does not have IV access., Starting 01/21/20 at 2038 After administration, attempt intravenous access and start D5W at 100 mL/hr. Repeat blood glucose in 15 minutes x2 and notify provider. Start: 11-29-2019 take 1 mL intravenou s route every hour 1 mg, Intramuscular, PRN, Low blood sugar, Blood glucose less than 70 mg/dL and patient NOT ALERT or NPO and does not have IV access., Starting 11/29/19 at 0809 After administration, attempt intravenous access and start D5W at 100 mL/hr. Repeat blood glucose in 15 minutes x2 and notify provider. 50 ml glucose 50 mg/ml injec tion (20 sources) Start: 06-28-2025 End: 07-01-2025 Start: 06-28-2025 End: 07-01-2025 Start: 06-05-2025 End: 06-09-2025 Start: 06-05-2025 End: 06-09-2025 Start: 11-20-2024 End: 05-26-2025 glucose 4 g chewable tablet Indications: Type 2 diabetes mellitus with hyperglycemia, with long-term current use of insulin ([facility]) Chew 4 tablets (16 g) Daily as needed for low blood sugar. 50 tablet 3 11/20/2024 05/26/2025 Discontinued (Therapy completed) Start: 11-20-2024 End: 11-20-2025 glucose 4 g chewable tablet Indications: Type 2 diabetes mellitus with hyperglycemia, with long-term current use of insulin (HCC) Chew 4 tablets (16 g) Daily as needed for low blood sugar. 50 tablet 3 11/20/2024 11/20/2025 Active Start: 10-18-2024 End: 10-23-2024 Start: 10-18-2024 End: 10-23-2024 12.5 g, IntraVENous, PRN, lo w blood sugar, Blood glucose less than 70 mg/dL and patient NOT ALERT or NPO., Starting on 10/18/24 at 2335, If patient does not respond within 5 minutes, repeat dose x1. Start D5W at 100 mL/hour until ordering provider can be reached. Repeat blood glucose in 15 minutes. If blood glucose is less than 70 mg/dL, repeat treatment and recheck blood glucose in 15 minutes x2. If using Glucostabilizer, dose as instructed per system. Start: 10-18-2024 End: 10-18-2024 50 g, IntraVENous, Once, On 10/18/24 at 1910, For 1 dose Start: 01-11-2024 End: 01-15-2024 12.5 g, IntraVENous, PRN, lo w blood sugar, Blood glucose less than 70 mg/dL and patient NOT ALERT or NPO., Starting on Sun01/11/24 at 0325, If patient does not respond within 5 minutes, repeat dose x1. Start D5W at 100 mL/hour until ordering provider can be reached. Repeat blood glucose in 15 minutes. If blood glucose is less than 70 mg/dL, repeat treatment and recheck blood glucose in 15 minutes x2. If using Glucostabilizer, dose as instructed per system. Start: 01-11-2024 End: 01-15-2024 100 mL/hr, IntraVENous, PRN, Blood sugar less than 70mg/dL, Starting on Sun01/11/24 at 0325, Start infusion following administration of dextrose 50% or glucagon. Start: 12-14-2023 End: 12-24-2023 100 mL/hr, IntraVENous, PRN, Blood sugar less than 70mg/dL, Starting on Sun12/14/23 at 1056, Start infusion following administration of dextrose 50% or glucagon. Start: 12-13-2023 End: 12-24-2023 12.5 g, IntraVENous, PRN, lo w blood sugar, Blood glucose less than 70 mg/dL and patient NOT ALERT or NPO., Starting on Sun12/13/23 at 0302, If patient does not respond within 5 minutes, repeat dose x1. Start D5W at 100 mL/hour until ordering provider can be reached. Repeat blood glucose in 15 minutes. If blood glucose is less than 70 mg/dL, repeat treatment and recheck blood glucose in 15 minutes x2. If using Glucostabilizer, dose as instructed per system. Start: 01-21-2020 15 g, Oral, NC N, Low blood sugar, Starting 01/21/20 at 2038 If blood glucose less than 50 mg/dL and patient ALERT and TOLERATING PO, give 2 tubes glucose gel. If blood glucose less than 70 mg/dL and patient ALERT and TOLERATING PO, give 1 tube glucose gel. Repeat blood glucose in 15 minutes. If blood glucose is less than 70 mg/dL, repeat treatment and recheck blood glucose in 15 minutes x2 and notify provider. Start: 01-21-2020 12.5 g, Intrav enous, PRN, Low blood sugar, Blood glucose less than 70 mg/dL and patient NOT ALERT or NPO., Starting 01/21/20 at 2037 If patient does not respond within 5 minutes, repeat dose x1. Start D5W at 100 mL/hour until ordering provider can be reached. Repeat blood glucose in 15 minutes. If blood glucose is less than 70 mg/dL, repeat treatment and recheck blood glucose in 15 minutes x2. If using Glucostabilizer, dose as instructed per system. Start: 01-21-2020 100 mL/hr, Int ravenous, at 100 mL/hr, PRN, Low blood sugar, Starting 01/21/20 at 2037 Start infusion following administration of dextrose 50% or glucagon. Start: 11-29-2019 15 g, Oral, NC N, Low blood sugar, Starting 11/29/19 at 0809 If blood glucose less than 50 mg/dL and patient ALERT and TOLERATING PO, give 2 tubes glucose gel. If blood glucose less than 70 mg/dL and patient ALERT and TOLERATING PO, give 1 tube glucose gel. Repeat blood glucose in 15 minutes. If blood glucose is less than 70 mg/dL, repeat treatment and recheck blood glucose in 15 minutes x2 and notify provider. Start: 11-29-2019 12.5 g, Intrav enous, PRN, Low blood sugar, Blood glucose less than 70 mg/dL and patient NOT ALERT or NPO., Starting 11/29/19 at 0809 If patient does not respond within 5 minutes, repeat dose x1. Start D5W at 100 mL/hour until ordering provider can be reached. Repeat blood glucose in 15 minutes. If blood glucose is less than 70 mg/dL, repeat treatment and recheck blood glucose in 15 minutes x2. If using Glucostabilizer, dose as instructed per system. Start: 11-29-2019 100 mL/hr, Int ravenous, at 100 mL/hr, PRN, Low blood sugar, Starting 11/29/19 at 0809 Start infusion following administration of dextrose 50% or glucagon. 250 ml glucose 50 mg/ml / sodium chloride 4.5 mg/ml injection (2 sources) Start: 10-19-2024 End: 10-21-2024 take 100 mL intravenously every hour 100 mL/hr, IntraVENous, Continuous, Starting on Sun10/19/24 at 0900 1 ml haloperidol 5 mg/ml prefilled syringe (2 sources) Typical Antipsychotic Start: 10-19-2024 End: 10-23-2024 inject 0.5 mg by intramuscular injection every six hours as needed 0.5 mg, IntraMUSCular, Every 6 hours PRN, agitation, Starting on Sun10/19/24 at 1456, IM route of administration preferred. Because of the risk of TdP and QT prolongation, ECG monitoring is recommended if haloperidol is given IV 1 ml hydrALAZINE hydrochloride 20 mg/ml injection (3 sources) Arteriolar Vasodilator Start: 12-17-2023 End: 12-24-2023 take 10 mg intravenously every four hours as needed for hypertension 10 mg, IntraVENous, Every 4 hours PRN, high blood pressure, Starting on 12/17/23 at 1150, 2nd line Administer for SBP >150. Hold for HR >100. Start: 11-29-2019 hydrALAZINE (A PRESOLINE) injection 5 mg 1 ml HYDROmorphone hydrochloride 1 mg/ml cartridge (6 sources) Opioid Agonist Start: 12-20-2023 End: 12-20-2023 take 0.25 mg by mouth once 0.25 mg, IntraVENous, Once, On Cata 12/20/23 at 0945, For 1 dose, If oral and IV narcotics ordered, use oral first and only use IV if oral is ineffective or cannot take oral. Do Not give oral and IV within 1 hour of each other unless specifically ordered. Start: 12-13-2023 End: 12-13-2023 take 0.5 mg by mouth once 0.5 mg, IntraVENous, Once, O n Cata 12/13/23 at 2300, For 1 dose, If oral and IV narcotics ordered, use oral first and only use IV if oral is ineffective or cannot take oral. Do Not give oral and IV within 1 hour of each other unless specifically ordered. Start: 12-13-2023 End: 12-13-2023 take 0.5 mg by mouth once 0.5 mg, IntraVENous, Once, O n Cata 12/13/23 at 2300, For 1 dose, If oral and IV narcotics ordered, use oral first and only use IV if oral is ineffective or cannot take oral. Do Not give oral and IV within 1 hour of each other unless specifically ordered. Start: 01-21-2020 End: 01-21-2020 HYDROmorphone (DILAUDID) inj ection 0.5 mg Start: 11-30-2019 End: 11-30-2019 HYDROmorphone (DILAUDID) inj ection 0.5 mg insulin glargine 100 unt/ml injectable solution (20 sources) Insulin Analog Start: 06-06-2025 End: 06-10-2026 inject 20 [IU] by subcutaneous injection once daily in the morning 20 Units, SubCUTAneous, Every morning, First dose on Sun06/29/25 at 0900 Start: 12-03-2024 End: 12-03-2025 insulin glargine (Basaglar KwikPen) 100 UNIT/ML pen Indications: Type 2 diabetes mellitus with hyperglycemia, with long-term current use of insulin (HCC) Inject 18 Units under the skin every morning. 16.2 mL 3 12/03/2024 02/20/2025 Discontinued (Reorder) Start: 11-20-2024 End: 02-20-2026 insulin glargine (Basaglar KwikPen) 100 UNIT/ML pen Indications: Type 2 diabetes mellitus with hyperglycemia, with long-term current use of insulin (HCC) Inject 24 Units under the skin every morning. 21.6 mL 3 02/20/2025 06/09/2025 Discontinued (Stop taking at discharge) Start: 10-22-2024 End: 11-20-2024 insulin glargine (Basaglar KwikPen) 100 UNIT/ML pen Inject 12 Units under the skin Nightly. 10/22/2024 11/20/2024 Discontinued (Reorder) Start: 10-21-2024 End: 10-23-2024 inject 12 [IU] by subcutaneous injection once daily in the morning 12 Units, SubCUTAneous, Every morning, First dose on Sun10/21/24 at 1200 Start: 12-20-2023 End: 10-21-2024 inject 13 [IU] by subcutaneous injection twice daily insulin glargine (Lantus) 100 UNIT/ML injection Inject 13 Units under the skin 2 times daily. 10 mL 12/24/2023 10/21/2024 Discontinued (Discontinued by another clinician) Start: 12-19-2023 End: 12-20-2023 inject 10 [IU] by subcutaneous injection twice daily 10 Units, SubCUTAneous, 2 times daily, First dose (after last modification) on 12/19/23 at 2100 Start: 12-15-2023 End: 12-19-2023 inject 15 [IU] by subcutaneous injection twice daily 15 Units, SubCUTAneous, 2 times daily, First dose (after last modification) on 12/15/23 at 0915 Start: 12-13-2023 End: 12-15-2023 inject 30 [IU] by subcutaneous injection twice daily 30 Units, SubCUTAneous, 2 times daily, First dose on Cata 12/13/23 at 1100 Start: 12-22-2022 End: 12-24-2023 Start: 07-07-2022 End: 12-19-2022 inject 30 [IU] by subcutaneous injection in the morning insulin glargine (Basaglar KwikPen) 100 UNIT/ML pen Inject 30 Units under the skin in the morning and 30 Units before bedtime. 3 mL 3 07/07/2022 12/19/2022 Discontinued (Reorder) Start: 07-04-2021 End: 08-03-2021 insulin glargine (BASAGLAR KWIKPEN) 100 UNIT/ML injection pen Indications: Type 2 diabetes mellitus with hyperglycemia, with long-term current use of insulin (HCC) Inject 50 Units into the skin nightly 15 mL 3 07/04/2021 08/03/2021 Active Start: 01-21-2020 inject 40 [IU] by alexis bcutaneous injection once daily 40 Units, Subcutaneous, NIGHTLY, First dose on 01/21/20 at 2100 Start: 11-29-2019 inject 40 [IU] by alexis bcutaneous injection once daily 40 Units, Subcutaneous, NIGHTLY, First dose on 11/29/19 at 2100 Start: 09-25-2019 insulin glargi ne (BASAGLAR KWIKPEN) 100 UNIT/ML injection pen Indications: Uncontrolled type 2 diabetes mellitus without complication, with long-term current use of insulin (HCC) Inject 40 Units into the skin nightly 12 mL 3 09/25/2019 Active Start: 05-13-2019 insulin glargi ne (BASAGLAR KWIKPEN) 100 UNIT/ML injection pen Indications: Uncontrolled type 2 diabetes mellitus without complication, with long-term current use of insulin (HCC) Inject 30 Units into the skin nightly 5 pen 5 05/13/2019 Active End: 10-22-2024 insulin glargine (Basaglar KwikPen) 100 UNIT/ML pen Inject 50 Units under the skin 2 times daily. 10/22/2024 Discontinued insulin lispro 100 unt/ml injectable solution (20 sources) Insulin Analog Start: 06-06-2025 End: 06-09-2026 inject 8 [IU] by subcutaneous injection twice daily before mealtime 8 Units, SubCUTAneous, 2 times daily before meals, First dose on Sun06/29/25 at 0800 Start: 06-05-2025 End: 06-06-2025 inject 12 [IU] by subcutaneous injection twice daily before mealtime 12 Units, SubCUTAneous, 2 times daily before meals, First dose on Sun06/05/25 at 1600 Start: 10-20-2024 End: 10-23-2024 inject 5 [IU] by subcutaneous injection four times daily before mealtime 0-5 Units, SubCUTAneous, 4 times daily before meals & nightly, First dose (after last modification) on Sun10/20/24 at 1700, Low Dose Correction Algorithm Glucose: Dose: LESS than 150 No Insulin 150-199 0 Unit 200-249 1 Units 250-299 2 Units 300-349 3 Units 350-400 4 Units Above 400 5 Units Start: 12-24-2023 End: 10-21-2024 inject 6 [IU] by subcutaneous injection three times daily at mealtime 0-6 Units, SubCUTAneous, 3 times daily with meals, First dose on Sun10/19/24 at 0800, Low Dose Correction Algorithm Glucose: Dose: LESS than 150 No Insulin 150-199 1 Unit 200-249 2 Units 250-299 3 Units 300-349 4 Units 350-400 5 Units Above 400 6 Units Start: 12-24-2023 End: 10-23-2024 inject 4 [IU] by subcutaneous injection three times daily at mealtime 4 Units, SubCUTAneous, 3 times daily with meals, First dose on Sun10/21/24 at 1200 Start: 01-21-2020 inject 10 [IU] by alexis bcutaneous injection three times daily at mealtime 10 Units, Subcutaneous, 3 TIMES DAILY WITH MEALS, First dose on Cata 01/22/20 at 0800 Substituted for Insulin aspart (NOVOLOG). Start: 11-30-2019 End: 11-30-2019 insulin lispro (HUMALOG) inj ection vial 6 Units Start: 11-29-2019 0-6 Units, Sub cutaneous, NIGHTLY, First dose on 11/29/19 at 2100 If continuous tube feedings/TPN/NPO, give correction dose based on result, no reduction in dose. If eating or bolus tube feeding: Medium Dose Corrective Algorithm Glucose: Dose: If <139 &nbs p; No Insulin 140-199 &n bsp; 1 Unit 200-249 &nbsp ; &nb sp; 2 Units 250-299 &nbs p; &n bsp; 3 Units 300-349 &nbs p; &n bsp; 4 Units 350-400 &nbs p; &n bsp; 5 Units Above 400 & nbsp; 6 Units Start: 11-29-2019 inject 10 [IU] by alexis bcutaneous injection three times daily at mealtime 10 Units, Subcutaneous, 3 TIMES DAILY WITH MEALS, First dose on 11/29/19 at 0830 Substituted for Insulin aspart (NOVOLOG). Start: 11-29-2019 0-12 Units, Alexis bcutaneous, 3 TIMES DAILY WITH MEALS, First dose on 11/29/19 at 0830 Medium Dose Corrective Algorithm Glucose: Dose: If <139 &nbs p; No Insulin 140-199 2 Units 200-249 4 Units 250-299 6 Units 300-349 8 Units 350-400 10 Units Above 400 & nbsp; 12 Units Insulin Lispro (Humalog) injection 0-12 Units (4 sources) Start: 06-28-2025 End: 07-01-2025 Insulin Lispro (Humalog) injection 0-12 Units Start: 06-05-2025 End: 06-09-2025 Insulin Lispro (Humalog) inj ection 0-12 Units Insulin Lispro (Humalog) injection 0-6 Units (2 sources) Start: 01-11-2024 End: 01-15-2024 Insulin Lispro (Humalog) injection 0-6 Units 3 ml insulin aspart, human 100 unt/ml pen injector (20 sources) Insulin Analog Start: 11-20-2024 End: 02-20-2026 insulin aspart (NovoLOG FLEXPEN) 100 UNIT/ML pen Indications: Type 2 diabetes mellitus with hyperglycemia, with long-term current use of insulin (HCC) Inject 12 Units under the skin 2 times daily (before meals). 21.6 mL 3 02/20/2025 06/09/2025 Discontinued (Stop taking at discharge) Start: 10-04-2021 End: 08-27-2089 insulin aspart (NovoLOG FLEX PEN) 100 UNIT/ML pen Inject 10 Units under the skin in the morning and 10 Units at noon and 10 Units in the evening. Inject with meals. 9 mL 1 12/22/2022 Active Start: 03-30-2021 End: 08-27-2089 insulin aspart (NOVOLOG FLEX PEN) 100 UNIT/ML injection pen Indications: Type 2 diabetes mellitus with hyperglycemia, with long-term current use of insulin (HCC) Inject 10 Units into the skin 3 times daily (before meals) Do not inject if blood sugar reading 9 mL 3 03/30/2021 08/27/2089 Active Start: 12-01-2019 insulin aspart (NOVOLOG FLEXPEN) 100 UNIT/ML injection pen Sliding scale : if BGT 140-199 2 Units,200-249 4 Units,250-299 6 Units,300-349 8 Units,350-400 10 Units,Above 400-12 Units 5 pen 0 12/01/2019 Active Start: 05-13-2019 End: 08-27-2089 inject 4 [IU] by subcutaneous injection three times daily before mealtime insulin aspart (NovoLOG FLEXPEN) 100 UNIT/ML pen Inject 4 Units under the skin 3 times daily (before meals). 10/22/2024 11/20/2024 Discontinued (Reorder) Start: 05-13-2019 insulin aspart (NOVOLOG FLEXPEN) 100 UNIT/ML injection pen Indications: Uncontrolled type 2 diabetes mellitus without complication, with long-term current use of insulin (HCC) Inject 10 Units into the skin 3 times daily (before meals) 5 pen 3 05/13/2019 Active End: 10-23-2024 inject 15 [IU] by subcutaneous injection three times daily at mealtime Insulin Aspart (NOVOLOG FLEXPEN SC) Inject 15 Units under the skin 3 times daily (with meals). 10/23/2024 Discontinued (Stop taking at discharge) iopamidol (Isovue-370) 76 % injection 75 mL (4 sources) Start: 06-28-2025 End: 06-28-2025 take 75 mL intravenously once as needed 75 mL, IntraVENous, IMG once PRN, contrast, Starting on Sun06/28/25 at 1611, For 1 dose Start: 06-05-2025 End: 06-05-2025 take 75 mL intravenously once as needed 75 mL, IntraVENous, IMG once PRN, contrast, Starting on Sun06/05/25 at 0911, For 1 dose labetalol hydrochloride 5 mg/ml injectable solution (4 sources) beta-Adrenergic Gustavo Start: 06-05-2025 End: 06-09-2025 take 10 mg intravenously every four hours as needed for hypertension Start: 12-17-2023 End: 12-24-2023 take 10 mg intravenously every four hours as needed for hypertension 10 mg, IntraVENous, Every 4 hours PRN, high blood pressure, Starting on 12/17/23 at 1151, 1st line Administer for SBP >150. Hold for HR <60. lidocaine 0.04 mg/mg medicated patch (5 sources) Antiarrhythmic, Amide Local Anesthetic Start: 12-13-2023 End: 12-21-2023 apply 1 dose transdermal route once daily, then apply 1 dose transdermal route every twelve hours 1 patch, TransDERmal, Administer over 12 Hours, Daily, First dose on Cata 12/13/23 at 1030, Apply patch to right chest wall. Patch may remain in place for up to 12 hours in any 24 hour period. Start: 08-01-2021 End: 08-11-2021 apply 1 dose transdermal route once daily lidocaine 4 % external patch Place 1 patch onto the skin daily for 10 days 10 patch 0 08/01/2021 08/11/2021 Active Start: 06-09-2020 lidocaine 1 % injection 20 mL Start: 06-09-2020 End: 08-30-2022 lidocaine (Xylocaine) 1 % injection Inject 20 mL into the skin. 0 06/09/2020 08/30/2022 Discontinued (Med list cleanup) 1 ml LORazepam 2 mg/ml injection (2 sources) Benzodiazepine Start: 01-21-2020 End: 01-21-2020 LORazepam (ATIVAN) injection 1 mg Start: 01-21-2020 End: 01-21-2020 LORazepam (ATIVAN) 2 MG/ML i njection losartan potassium 25 mg oral tablet (20 sources) Angiotensin 2 Receptor Gustavo Start: 01-11-2024 End: 01-15-2024 take 25 mg by mouth once daily 25 mg, Oral, Daily, First dose on Sun01/11/24 at 0900, Indications: Hypertension Start: 12-22-2023 End: 06-09-2025 take 1 tablet by mouth once daily losartan (Cozaar) 25 MG tablet Indications: Hypertension Take 1 tablet (25 mg) by mouth daily. 30 tablet 12/25/2023 Active Start: 07-05-2022 End: 12-24-2023 Start: 07-06-2021 take 1 tablet by daniel th once daily losartan (COZAAR) 50 MG tablet Indications: Essential hypertension Take 1 tablet by mouth daily 90 tablet 0 07/06/2021 Active Start: 01-21-2020 take 25 mg by mouth once daily 25 mg, Oral, DAILY, First dose on 01/21/20 at 2100 Start: 12-01-2019 End: 02-29-2020 take 0.5 tablet by mouth once daily losartan (COZAAR) 25 MG tablet Indications: Essential hypertension Take 0.5 tablets by mouth daily 90 tablet 0 12/01/2019 02/29/2020 Active Start: 11-29-2019 take 25 mg by mouth once daily 25 mg, Oral, DAILY, First dose on 11/29/19 at 0900 Start: 09-25-2019 End: 12-01-2019 take 1 tablet by mouth once daily losartan (COZAAR) 25 MG tablet Indications: Essential hypertension Take 1 tablet by mouth daily 90 tablet 0 09/25/2019 12/01/2019 Discontinued (REORDER) Start: 05-13-2019 End: 08-11-2019 take 1 tablet by mouth once daily losartan (COZAAR) 25 MG tablet Indications: Essential hypertension Take 1 tablet by mouth daily 90 tablet 0 05/13/2019 08/11/2019 Active magnesium oxide 400 mg oral tablet (20 sources) Start: 07-07-2022 End: 07-01-2025 take 400 mg by mouth twice daily 400 mg, Oral, 2 times daily, First dose on 06/28/25 at 2100 Start: 04-19-2021 take 1 tablet by daniel th twice daily magnesium oxide (MAG-OX) 400 (241.3 Mg) MG TABS tablet Indications: Hypomagnesemia TAKE 1 TABLET BY MOUTH TWICE DAILY. 180 tablet 0 04/19/2021 Active Start: 09-25-2019 magnesium oxid e (MAG-OX) tablet 400 mg Start: 05-13-2019 take 1 tablet by daniel th twice daily magnesium oxide (MAG-OX) 400 (240 Mg) MG tablet Indications: Hypomagnesemia Take 1 tablet by mouth 2 times daily 180 tablet 0 05/13/2019 Active 50 ml magnesium sulfate 40 m g/ml injection (2 sources) Start: 11-30-2019 End: 11-30-2019 magnesium sulfate 2 g in 50 mL IVPB premix Start: 11-29-2019 End: 11-29-2019 2 g, Intravenous, at 25 mL/h r, Administer over 2 Hours, ONCE, 11/29/19 at 0900, For 1 dose Infuse over 4 hours melatonin 5 mg oral tablet (20 sources) Start: 12-13-2023 End: 07-01-2025 take 5 mg by mouth once daily 5 mg, Oral, Nightly, First dose on 06/28/25 at 2100 metFORMIN hydrochloride 1000 mg oral tablet (1 source) Biguanide Start: 07-02-2015 End: 08-30-2022 metFORMIN (Glucophage) 1000 MG tablet twice a day. 0 07/02/2015 08/30/2022 Discontinued (Med list cleanup) methocarbamol 500 mg oral tablet (3 sources) Muscle Relaxant Start: 12-13-2023 End: 12-14-2023 take 500 mg by mouth every eight hours 500 mg, Oral, Every 8 hours, First dose on Cata 12/13/23 at 0305, For 48 hours Start: 08-01-2021 End: 08-11-2021 take 1 tablet by mouth three times daily methocarbamol (ROBAXIN) 500 MG tablet Take 1 tablet by mouth 3 times daily for 10 days 30 tablet 0 08/01/2021 08/11/2021 Active 2 ml midazolam 1 mg/ml injection (4 sources) Benzodiazepine Start: 12-13-2023 End: 12-13-2023 2 mg, IntraVENous, Once, On Cata 12/13/23 at 0445, For 1 dose Start: 12-13-2023 End: 12-13-2023 Starting on Cata 12/13/23 at 0 335, For 1 dose, Itzel Dupree: justinainet override 1 ml naloxone hydrochloride 0.4 mg/ml injection (2 sources) Opioid Antagonist Start: 12-13-2023 End: 12-24-2023 0.4 mg, IntraVENous, As needed, opioid reversal, pinpoint pupils, Starting on Cata 12/13/23 at 0304, administer IV PRN for oversedation, RR LESS than 10 Nicotine (2 sources) Cholinergic Nicotinic Agonist Start: 10-20-2024 End: 10-23-2024 nicotine (Nicoderm, Step 2) 14 MG/24HR patch 1 patch nystatin 100 unt/mg topical ointment (8 sources) Polyene Antifungal Start: 06-06-2025 End: 06-09-2026 nystatin (Mycostatin) ointment Apply topically 2 times daily. 06/09/2025 07/01/2025 Discontinued (Stop taking at discharge) 2 ml ondansetron 2 mg/ml injection (4 sources) Serotonin-3 Receptor Antagonist Start: 06-05-2025 End: 06-05-2025 4 mg, IntraVENous, Once, On Sun06/05/25 at 1020, For 1 dose Start: 12-24-2023 End: 12-31-2023 take 4 mg by mouth every eight hours as needed for nausea and vomiting ondansetron ODT (Zofran-ODT) disintegrating tablet 4 mg (8 sources) Start: 06-28-2025 End: 07-01-2025 take 1 tablet by mouth every eight hours as needed for nausea and vomiting ondansetron ODT (Zofran-ODT) disintegrating tablet 4 mg Start: 06-05-2025 End: 06-09-2025 take 1 tablet by mouth every eight hours as needed for nausea and vomiting ondansetron ODT (Zofran-ODT) disintegrating tablet 4 mg Start: 10-18-2024 End: 10-23-2024 take 1 tablet by mouth every eight hours as needed for nausea and vomiting ondansetron ODT (Zofran-ODT) disintegrating tablet 4 mg Start: 01-11-2024 End: 01-15-2024 take 1 tablet by mouth every eight hours as needed for nausea and vomiting ondansetron ODT (Zofran-ODT) disintegrating tablet 4 mg perflutren protein A microsphere (Optison) 3 mL in sodium chloride (PF) 0.9 % 10 mL IV (2 sources) Start: 06-05-2025 End: 06-09-2025 polyethylene glycol 3350 [id number] mg powder for oral solution (16 sources) Osmotic Laxative Start: 06-28-2025 End: 07-01-2025 take 17 g by mouth every twenty-four hours as needed for constipation 17 g, Oral, Daily PRN, constipation, Starting on 06/28/25 at 1945, 1st line for treatment of constipation - give scheduled if no bowel movement in past 24 hours. Start: 06-05-2025 End: 06-09-2025 take 17 g by mouth every twenty-four hours as needed for constipation 17 g, Oral, Daily PRN, constipation, Starting on 06/05/25 at 1448, 1st line for treatment of constipation - give scheduled if no bowel movement in past 24 hours. Start: 10-18-2024 End: 10-23-2024 take 17 g by mouth every twenty-four hours as needed for constipation Start: 01-11-2024 End: 01-15-2024 take 17 g by mouth every twenty-four hours as needed for constipation 17 g, Oral, Daily PRN, constipation, Starting on Sun01/11/24 at 0325, 1st line for treatment of constipation - give scheduled if no bowel movement in past 24 hours. Start: 12-13-2023 End: 12-27-2023 17 g, Oral, Daily, First dos e on Sun12/18/23 at 0900 Start: 01-21-2020 take 1 dose by mouth once daily as needed for constipation polyethylene glycol (MIRALAX) 17 g packet Take 17 g by mouth daily as needed for Constipation Take one packet a day as needed for constipation 14 each 0 01/21/2020 Active Start: 11-29-2019 17 g, Oral, DA SAL PRN, Constipation, Starting 11/29/19 at 0809 First line therapy for constipation microencapsulated potassium chloride 10 meq extended release oral tablet (3 sources) Start: 10-18-2024 End: 10-23-2024 Start: 11-30-2019 End: 11-30-2019 potassium chloride (KLOR-CON M) extended release tablet 40 mEq pravastatin sodium 80 mg oral tablet (20 sources) HMG-CoA Reductase Inhibitor Start: 12-13-2023 End: 12-24-2023 take 80 mg by mouth once daily 80 mg, Oral, Daily, First dose on Cata 12/13/23 at 0900 Start: 07-07-2022 End: 07-01-2025 take 80 mg by mouth once daily 80 mg, Oral, Nightly, F irst dose on 06/28/25 at 2100 Start: 03-30-2021 take 1 tablet by daniel th once daily pravastatin (PRAVACHOL) 80 MG tablet Indications: Mixed hyperlipidemia Take 1 tablet by mouth daily 90 tablet 1 03/30/2021 Active Start: 01-12-2020 take 40 mg by mouth once daily 40 mg, Oral, DAILY, First dose on 01/21/20 at 2100 Start: 09-25-2019 take 40 mg by mouth once daily 40 mg, Oral, DAILY, First dose on 11/29/19 at 2200 Start: 05-13-2019 take 1 tablet by daniel th once daily pravastatin (PRAVACHOL) 40 MG tablet Indications: Uncontrolled type 2 diabetes mellitus without complication, with long-term current use of insulin (HCC) Take 1 tablet by mouth daily 90 tablet 1 05/13/2019 Active QUEtiapine 25 mg oral tablet (2 sources) Atypical Antipsychotic Start: 01-11-2024 End: 01-15-2024 take 1 tablet by mouth every eight hours as needed QUEtiapine (SEROquel) tablet 12.5 mg regular insulin, human 100 unt/ml injectable solution (1 source) Insulin Start: 11-29-2019 End: 11-29-2019 insulin regular (HUMULIN R;NOVOLIN R) injection 5 Units rivaroxaban 10 mg oral tablet (20 sources) Factor Xa Inhibitor Start: 06-29-2025 End: 07-01-2025 take 20 mg by mouth once daily at breakfast 20 mg, Oral, Daily with breakfast, First dose on 06/29/25 at 0800, Anticoagulant! Start: 07-07-2022 End: 06-09-2025 take 1 tablet by mouth once daily in the morning rivaroxaban (Xarelto) 20 MG tablet TAKE 1 TABLET BY MOUTH EVERY MORNING WITH BREAKFAST 90 tablet 1 07/07/2022 Active Start: 03-30-2021 take 1 tablet by daniel th once daily at breakfast rivaroxaban (XARELTO) 20 MG TABS tablet TAKE 1 TABLET BY MOUTH EVERY DAY WITH BREAKFAST 90 tablet 1 03/30/2021 Active Start: 05-13-2019 20 mg, Oral, D AILY WITH BREAKFAST, First dose on Sun01/22/20 at 0800 ANTICOAGULANT! Doses greater than 15 mg/day must be administered with food. sennosides, fdc 8.6 mg oral tablet (20 sources) Start: 10-21-2024 End: 10-23-2024 take 1 tablet by mouth twice daily 8.6 mg (1 tablet), Oral, 2 times daily, First dose (after last modification) on Sun10/21/24 at 2100 Start: 12-16-2023 End: 12-23-2024 take 1 tablet by mouth once daily sennosides (Senokot) 8.6 MG tablet Take 1 tablet (8.6 mg) by mouth Nightly. 30 tablet 12/24/2023 12/23/2024 50 ml sodium chloride 9 mg/m l injection (17 sources) Start: 06-28-2025 End: 06-28-2025 1,000 mL, IntraVENous, at 1, 000 mL/hr, Administer over 1 Hours, Once, On Sun06/28/25 at 1450, For 1 dose Start: 06-05-2025 End: 06-05-2025 1,000 mL, IntraVENous, at 1, 000 mL/hr, Administer over 1 Hours, Once, On Sun06/05/25 at 0935, For 1 dose Start: 12-14-2023 End: 12-24-2023 4 mL, Nebulization, PRN, cou gh, Starting on Sun12/14/23 at 1059 Start: 12-12-2023 End: 12-13-2023 1,000 mL, IntraVENous, at 1, 000 mL/hr, Administer over 1 Hours, Once, On Sun12/12/23 at 2340, For 1 dose Start: 08-01-2021 End: 08-01-2021 0.9 % sodium chloride bolus Start: 01-21-2020 10 mL, Intrave nous, EVERY 12 HOURS SCHEDULED (2 times per day), First dose on Sun01/21/20 at 2100, Post-op Start: 01-21-2020 take 10 mL intravenous route o nce 10 mL, Intravenous, PRN, Line Care, Starting Sun01/21/20 at 1910 After every IV line use Post-op Start: 01-21-2020 End: 01-22-2020 Intravenous, at 125 mL/hr, CONTINUOUS, Starting Sun01/21/20 at 1930, Post-op Start: 11-29-2019 10 mL, Intrave nous, EVERY 12 HOURS SCHEDULED (2 times per day), First dose on 11/29/19 at 0900 Start: 11-29-2019 take 10 mL intraveno us route once as needed 10 mL, Intravenous, PRN, Line Care, After every IV line use, Starting 11/29/19 at 0809 Start: 11-29-2019 End: 11-29-2019 0.9 % sodium chloride bolus Start: 11-29-2019 End: 12-02-2019 0.9 % sodium chloride infusi on stomahesive in petrolatum (E T Mix) (6 sources) Start: 10-20-2024 End: 10-23-2024 Topical, Every 8 hours, Firs t dose on Sun10/20/24 at 1130, Sacrum: Pressure Injury (DTI) - Clean with soap and water, apply ET mix then leave ESTELITA TID and PRN Right buttock: Pressure Injury (Stage 3) - Clean with soap and water, apply ET mix then leave ESTELITA TID and PRN Start: 10-20-2024 End: 10-23-2024 Topical, PRN, dry skin, Star ting on Sun10/20/24 at 1125, Sacrum: Pressure Injury (DTI) - Clean with soap and water, apply ET mix then leave JUMP IRON MACHINE PRESSER TID and PRN Right buttock: Pressure Injury (Stage 3) - Clean with soap and water, apply ET mix then leave ESTELITA TID and PRN Start: 01-11-2024 End: 01-15-2024 stomahesive in petrolatum (E T Mix) traZODone hydrochloride 50 mg oral tablet (20 sources) Serotonin Reuptake Inhibitor Start: 12-14-2023 End: 07-09-2025 take 50 mg by mouth once daily as needed for sleep 50 mg, Oral, Nightly PRN, sleep, Starting on 06/28/25 at 1945 Vancomycin (3 sources) Glycopeptide Antibacterial Start: 06-28-2025 End: 06-28-2025 Start: 01-21-2020 End: 01-21-2020 vancomycin (VANCOCIN) 1000 m g in dextrose 5% 200 mL IVPB 24 hr venlafaxine 75 mg extended release oral capsule (20 sources) Serotonin and Norepinephrine Reuptake Inhibitor Start: 06-29-2025 End: 07-01-2025 take 1 capsule by mouth once daily at breakfast 150 mg, Oral, Daily with breakfast, First dose on 06/29/25 at 0800, Capsule may be swallowed whole, or may be opened and its contents sprinkled on applesauce if consumed immediately without chewing. Do not crush or chew. Start: 06-06-2025 End: 06-10-2026 take 1 capsule by mouth once daily at breakfast venlafaxine XR (Effexor XR) 150 MG 24 hr capsule Take 1 capsule (150 mg) by mouth daily (with breakfast). Do not crush or chew. 06/10/2025 06/10/2026 Active Start: 10-23-2024 End: 10-23-2025 take 3 capsules by mouth once daily at breakfast venlafaxine XR (Effexor XR) 75 MG 24 hr capsule Take 3 capsules (225 mg) by mouth daily (with breakfast). Do not crush or chew. 90 capsule 11 10/23/2024 06/09/2025 Discontinued (Stop taking at discharge) Start: 10-22-2024 End: 10-23-2024 take 1 capsule by mouth once daily at breakfast 225 mg, Oral, Daily with breakfast, First dose (after last modification) on 10/22/24 at 0800, Capsule may be swallowed whole, or may be opened and its contents sprinkled on applesauce if consumed immediately without chewing. Do not crush or chew. Start: 12-16-2023 End: 10-21-2024 take 1 capsule by mouth once daily 75 mg, Oral, Nightly, First dose on 10/18/24 at 2345, Capsule may be swallowed whole, or may be opened and its contents sprinkled on applesauce if consumed immediately without chewing. Do not crush or chew. Start: 12-13-2023 End: 12-14-2023 take 1 capsule by mouth once daily at breakfast 150 mg, Oral, Daily with breakfast, First dose on Cata 12/13/23 at 0800, Capsule may be swallowed whole, or may be opened and its contents sprinkled on applesauce if consumed immediately without chewing. Do not crush or chew. Start: 07-07-2022 End: 10-23-2024 take 1 capsule by mouth once daily at breakfast 150 mg, Oral, Daily with breakfast, First dose on 10/19/24 at 0800, Capsule may be swallowed whole, or may be opened and its contents sprinkled on applesauce if consumed immediately without chewing. Do not crush or chew. Start: 07-07-2022 End: 01-24-2024 take 1 capsule by mouth twice daily 150 mg, Oral, 2 times daily, First dose (after last modification) on 12/15/23 at 1600, Capsule may be swallowed whole, or may be opened and its contents sprinkled on applesauce if consumed immediately without chewing. Do not crush or chew. Start: 03-30-2021 take 1 capsule by mo uth twice daily venlafaxine (EFFEXOR XR) 150 MG extended release capsule Indications: Mood disorder (HCC) TAKE 1 CAPSULE BY MOUTH TWICE A DAY 180 capsule 1 03/30/2021 Active Start: 01-22-2020 take 150 mg by mouth once samir y 150 mg, Oral, DAILY, First dose on Cata 01/22/20 at 0900 Do not crush or break. Start: 09-25-2019 End: 12-24-2019 take 1 capsule by mouth once daily venlafaxine (EFFEXOR XR) 150 MG extended release capsule Indications: Mood disorder (HCC) Take 1 capsule by mouth daily 90 capsule 1 09/25/2019 Active Start: 05-13-2019 take 1 capsule by mo ut twice daily venlafaxine (EFFEXOR XR) 150 MG extended release capsule Indications: Mood disorder (HCC) Take 1 capsule by mouth 2 times daily 180 capsule 1 05/13/2019 Active vitamin b12 1 mg oral tablet (20 sources) Vitamin B12 Start: 06-09-2025 End: 07-01-2025 take 1000 ug by mouth once daily 1,000 mcg, Oral, Daily, First dose on 06/28/25 at 2000 Start: 10-19-2024 End: 10-23-2024 take 500 ug by mouth once daily 500 mcg, Oral, Daily, First dose on 10/19/24 at 0900 Start: 01-11-2024 End: 01-15-2024 take 500 ug by mouth once daily 500 mcg, Oral, Daily, First dose on Sun01/11/24 at 0900 Start: 01-21-2020 take 500 ug by mouth once daily 500 mcg, Oral, DAILY, First dose on Sun01/21/20 at 2100 Start: 11-29-2019 End: 12-24-2023 take 500 ug by mouth once daily 500 mcg, Oral, Daily, First dose on Sun12/16/23 at 1030 End: 06-09-2025 cyanocobalamin (Vitamin B-12 ) 1000 MCG tablet Take 2,500 mcg by mouth daily. 06/09/2025 Discontinued cyanocobalamin ( Vitamin B-12) 1000 MCG tablet Take 500 mcg by mouth in the morning. Active (2 sources) Start: 12-15-2023 End: 12-15-2023 take 75 mL intravenously once as needed 75 mL, IntraVENous, IMG once PRN, contrast, Starting on 12/15/23 at 1315, For 1 dose (8 sources) Start: 12-14-2023 End: 12-24-2023 [Order 1 Start] Name: Insulin Lispro (Humalog) injection 0-18 Units Signed Summary: 0-18 Units, SubCUTAneous, 3 times daily with meals, First dose on Sun12/14/23 at 1700, High Dose Correction Algorithm Glucose: Dose: LESS than 139 No Insulin 140-199 3 Unit 200-249 6 Units 250-299 9 Units 300-349 12 Units 350-400 15 Units Above 400 18 Units [Order 1 End] [Order 2 Start] Name: Insulin Lispro (Humalog) injection 0-18 Units Signed Summary: 0-18 Units, SubCUTAneous, Nightly, First dose on Sun12/14/23 at 2100, If continuous tube feedings/TPN/NPO, give correction dose based on result, no reduction in dose. If eating or bolus tube feeding: High Dose Correction Algorithm Glucose: Dose: LESS than 139 No Insulin 140-199 3 Unit 200-249 6 Units 250-299 9 Units 300-349 12 Units 350-400 15 Units Above 400 18 Units [Order 2 End] Start: 12-13-2023 End: 12-14-2023 take 1000 mg intravenously every eight hours 1,000 mg, IntraVENous, at 100 mL/hr, Administer over 30 Minutes, Every 8 hours, First dose on Sun12/13/23 at 1300, For 1 day, Mini-Bag Plus bag, Suspected Indication (Select all that apply): Surgical Prophylaxis, Surgical Site Infection Start: 12-13-2023 End: 12-24-2023 take 5 mg by mouth every six hours as needed for pain [Order 1 Start] Name: oxyCODONE (Roxicodone) immediate release tablet 5 mg Signed Summary: 5 mg, Oral, Every 6 hours PRN, moderate pain (4-6), Starting on Cata 24 at 0256, Use first if patient is tolerating PO and pain is not acute. May repeat times one, no sooner than 60 minutes if no relief. [Order 1 End] [Order 2 Start] Name: oxyCODONE (Roxicodone) immediate release tablet 10 mg Signed Summary: 10 mg, Oral, Every 6 hours PRN, severe pain (7-10), Starting on Cata 12/13/23 at 0256, Use first if Tolerating PO and pain is not acute. [Order 2 End] Start: 12-13-2023 End: 12-24-2023 take 4 mg by mouth every eight hours as needed for nausea and vomiting [Order 1 Start] Name: ondansetron ODT (Zofran-ODT) disintegrating tablet 4 mg Signed Summary: 4 mg, Oral, Every 8 hours PRN, nausea, vomiting, Starting on Cata 24 at 0252, 1st Line. If inadequate response within 60 minutes, proceed to next-line agent or contact provider if no further options ordered. Patient should allow tablet to dissolve on tongue. Do not remove from blister pack until just before administering. [Order 1 End] [Order 2 Start] Name: ondansetron (Zofran) injection 4 mg Signed Summary: 4 mg, IntraVENous, Every 6 hours PRN, nausea, vomiting, Starting on Cata 24 at 0252, 1st Line. Give IV if patient is unable to take orally. If inadequate response within 60 minutes, proceed to next-line agent or contact provider if no further options ordered. [Order 2 End] Problems Active Problems Problem Classification Problem Date Documented Date Episodic/Chronic Anxiety disorders (20 sources) Mixed anxiety and depressive disorder; Translations: [Other specified anxiety disorders] Onset: 05-06-2015 05-06-2015 Chronic Cancer of breast (20 sources) Malignant neoplasm of upper-outer quadrant of female breast; Translations: [Malignant neoplasm of upper-outer quadrant of left female breast] Onset: 02-03-2016 02-03-2016 Chronic Cardiac dysrhythmias (20 sources) Atrial fibrillation; Translations: [Unspecified atrial fibrillation] Onset: 11-29-2019 12-25-2016 Chronic Chronic ulcer of skin (2 sources) Pressure ulcer of other site, unstageable; Translations: [Pressure ulcer, other site] 12-24-2023 Chronic Crushing injury or internal injury (6 sources) Traumatic pneumothorax; Translations: [Traumatic pneumothorax, initial encounter] Onset: 08-01-2021 12-24-2023 Episodic Delirium, dementia, and amnestic and other cognitive disorders (11 sources) Mixed dementia ; Translations: [Alzheimer's disease, unspecified] Onset: 06-05-2025 01-23-2025 Chronic Diabetes mellitus with complications (20 sources) Insulin treated type 2 diabetes mellitus; Translations: [Type 2 diabetes mellitus with hyperglycemia] Onset: 11-29-2019 06-09-2022 Chronic Diabetes mellitus without complication (20 sources) Type 2 diabetes mellitus; Translations: [Type 2 diabetes mellitus with hyperglycemia] Onset: 05-06-2015 Resolved: 04-02-2021 09-06-2017 Chronic Diseases of white blood cells (20 sources) Leukocytosis; Translations: [Elevated white blood cell count, unspecified] Onset: 11-29-2019 11-29-2019 Chronic Disorders of lipid metabolism (20 sources) Hyperlipidemia; Translations: [Hyperlipidemia, unspecified] Onset: 05-06-2015 07-27-2016 Chronic E Codes: Fall (20 sources) Fall; Translations: [Unspecified fall, initial encounter] Onset: 11-29-2019 11-29-2019 Episodic Essential hypertension (20 sources) Hypertensive disorder; Translations: [Essential hypertension] Onset: 05-06-2015 Resolved: 02-26-2019 02-26-2019 Chronic External cause codes: Fall (3 sources) Fall; Translations: [Fall, initial encounter] Onset: 11-29-2019 11-29-2019 Hypertension with complications and secondary hypertension (2 sources) Hypertension secondary to endocrine disorders; 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] Onset: 02-20-2025 Chronic Miscellaneous mental health disorders (20 sources) Psychophysiologic insomnia; Translations: [Psychophysiologic insomnia] Onset: 05-06-2015 05-06-2015 Chronic Mood disorders (20 sources) Mood disorder; Translations: [Unspecified mood [affective] disorder] Onset: 11-13-2020 11-13-2020 Chronic Nonspecific chest pain (3 sources) Chest pain; Translations: [Other chest pain] 08-11-2023 Episodic Nutritional deficiencies (12 sources) Vitamin D deficiency; Translations: [Vitamin D deficiency, unspecified] Onset: 10-18-2024 10-21-2024 Chronic Other aftercare (4 sources) Polypharmacy ; Translations: [Other nursing home (current) drug therapy] 12-24-2023 Episodic Other aftercare (2 sources) Patient encounter status; Translations: [Encounter for palliative care] 01-21-2025 Episodic Other aftercare (2 sources) terminal gauger (current) use of insulin; Translations: [terminal gauger (current) use of insulin (HCC)] Onset: 06-09-2022 Episodic Other circulatory disease (20 sources) History of cerebrovascular accident; Translations: [Personal history of transient ischemic attack (TIA), and cerebral infarction without residual deficits] Onset: 07-31-2018 07-31-2018 Episodic Other connective tissue disease (3 sources) Recurrent falls ; Translations: [Repeated falls] 12-11-2023 Episodic Other connective tissue disease (1 source) Falls; Translations: [Repeated falls] 10-02-2023 Episodic Other connective tissue disease (3 sources) Pain in right hand; Translations: [Pain in right hand] 02-22-2024 Episodic Other endocrine disorders (20 sources) Hypoglycemia; Translations: [Hypoglycemia, unspecified] Onset: 10-18-2024 10-18-2024 Chronic Other endocrine disorders (2 sources) Hypoglycemia, unspecified; Translations: [Hypoglycemia, unspecified] Onset: 10-18-2024 Chronic Other lower respiratory disease (1 source) Rib pain; Translations: [Pleurodynia] 12-11-2023 Episodic Other nervous system disorders (1 source) Difficulty in walking, not elsewhere classified; Translations: [Difficulty in walking, not elsewhere classified] Onset: 11-28-2024 Chronic Other nervous system disorders (3 sources) Unsteady gait; Translations: [Unsteady gait] Onset: 11-29-2019 11-29-2019 Episodic Other nervous system disorders (8 sources) Impaired cognition; Translations: [Other symptoms and signs involving cognitive functions and awareness] 10-23-2024 Episodic Other non-traumatic joint disorders (3 sources) Pain in right shoulder; Translations: [Pain in joint, shoulder region] 02-22-2024 Episodic Other nutritional; endocrine; and metabolic disorders (20 sources) Hypomagnesemia; Translations: [Hypomagnesemia] Onset: 02-18-2019 02-18-2019 Chronic Other nutritional; endocrine; and metabolic disorders (20 sources) Obesity; Translations: [Other obesity due to excess calories] Onset: 11-29-2019 11-29-2019 Chronic Other nutritional; endocrine; and metabolic disorders (2 sources) Body mass index (BMI) 31.0-31.9, adult; Translations: [Body mass index (BMI) 31.0-31.9, adult] Onset: 10-03-2022 Chronic Residual codes; unclassified (20 sources) Memory impairment; Translations: [Other amnesia] Onset: 11-29-2019 11-29-2019 Episodic Residual codes; unclassified (4 sources) At risk of delirium; Translations: [Other specified personal risk factors, not elsewhere classified] 12-24-2023 Episodic Residual codes; unclassified (2 sources) Delirium; Translations: [Disorientation, unspecified] 10-21-2024 Episodic Residual codes; unclassified (2 sources) Altered mental status; Translations: [Altered mental status, unspecified] 06-28-2025 Episodic Residual codes; unclassified (2 sources) Altered mental status, unspecified; Translations: [Altered mental status, unspecified] Onset: 06-28-2025 Episodic Residual codes; unclassified (2 sources) Other specified personal risk factors, not elsewhere classified; Translations: [Other specified personal risk factors, not elsewhere classified] Onset: 06-05-2025 Episodic Spondylosis; intervertebral disc disorders; other back problems (3 sources) Disorder of vertebral column; Translations: [Sacrococcygeal disorders, not elsewhere classified] 03-17-2023 Episodic Substance-related disorders (20 sources) Tobacco dependence syndrome; Translations: [Nicotine dependence, unspecified, uncomplicated] Onset: 11-29-2019 11-29-2019 Chronic Syncope (4 sources) Syncope; Translations: [Syncope and collapse] Onset: 06-05-2025 06-05-2025 Episodic Unclassified (3 sources) Patient encounter status; Translations: [Examination of participant in clinical trial] Onset: 02-03-2016 02-03-2016 Unclassified (1 source) Obesity, class 1; Translations: [Obesity, class 1] Onset: 10-03-2022 Urinary tract infections (20 sources) Urinary tract infectious disease; Translations: [Escherichia coli urinary tract infection] Onset: 11-29-2019 12-01-2019 Episodic Past or Other Problems Problem Classification Problem Date Documented Date Episodic/Chronic Acute cerebrovascular disease (4 sources) Occlusion of cerebral artery with stroke; Translations: [Cerebral infarction due to unspecified occlusion or stenosis of unspecified cerebral artery] Onset: 6 Resolved: 8 07-31-2018 Chronic Administrative/social admission (1 source) Need for assistance with personal care; Translations: [Need for assistance with personal care] Onset: 5 Episodic Diabetes mellitus without complication (20 sources) Hyperglycemia; Translations: [Hyperglycemia, unspecified] Onset: 3 10-03-2022 Episodic Fracture of neck of femur (hip) (20 sources) Closed fracture of hip; Translations: [Closed intertrochanteric fracture] Onset: 0 11-29-2019 Episodic Genitourinary symptoms and ill-defined conditions (1 source) Dysuria; Translations: [Dysuria] Episodic Malaise and fatigue (20 sources) Asthenia; Translations: [Weakness] Onset: 3 10-03-2022 Episodic Other aftercare (20 sources) Drug therapy finding; Translations: [terminal gauger (current) use of anticoagulants] Onset: 1 06-09-2022 Episodic Other aftercare (2 sources) Encounter for palliative care; Translations: [Encounter for palliative care] Onset: 5 Episodic Other aftercare (2 sources) Other termite control representative (current) drug therapy; Translations: [Other termite control representative (current) drug therapy] Onset: 5 Episodic Other fractures (20 sources) Closed fracture of single left rib; Translations: [Fracture of one rib, left side, initial encounter for closed fracture] Onset: 1 Episodic Other fractures (20 sources) Closed fracture of multiple right ribs; Translations: [Multiple fractures of ribs, right side, initial encounter for closed fracture] Onset: 4 12-24-2023 Episodic Other nervous system disorders (20 sources) Abnormal gait; Translations: [Unsteadiness on feet] Onset: 0 11-29-2019 Episodic Other nervous system disorders (3 sources) Other symptoms and signs involving cognitive functions and awareness; Translations: [Other signs and symptoms involving cognition] Onset: 5 01-14-2025 Episodic Pleurisy; pneumothorax; pulmonary collapse (20 sources) Hemothorax; Translations: [Hemothorax] Onset: 1 Episodic Residual codes; unclassified (3 sources) Tobacco user; Translations: [Tobacco abuse] Onset: 5 Resolved: 7 11-24-2016 Chronic Residual codes; unclassified (20 sources) History of radial keratotomy; Translations: [Other specified postprocedural states] Onset: 6 01-31-2017 Episodic Residual codes; unclassified (1 source) Tobacco user; Translations: [Tobacco use] Onset: 5 Resolved: 7 11-24-2016 Episodic Residual codes; unclassified (20 sources) Noncompliance with therapeutic regimen; Translations: [Noncompliance with treatment regimen] Onset: 2 06-30-2022 Episodic Residual codes; unclassified (9 sources) Amnesia; Translations: [Other amnesia] Onset: 5 12-24-2023 Episodic Residual codes; unclassified (2 sources) Other amnesia; Translations: [Other amnesia] Onset: 3 Episodic Residual codes; unclassified (2 sources) Disorientation, unspecified; Translations: [Disorientation, unspecified] Onset: 5 Episodic Unclassified (1 source) Obesity, class 1; Translations: [Obesity, class 1] Onset: 5 Results Test Name Value Interpretation Reference Range [facility] [id number] 07-02-2025 [id number] Patient Choice Patient Name: BEVERLY AGEE Date of : 1945 [facility] [id number] 07-01-2025 [id number] SOURAV notified of patient dc to [facility]. [facility] [id number] 07-01-2025 [id number] Prison/SNF - N [facility] [address] [facility] [address] [facility] [phone] Patient/Family Choice [facility] [id number] [facility] [id number] Transportation has b een confirmed for 2 PM to [facility]. RN and community health nurse staff notified via secure chat. Son, Charbel, notified via TC. [facility] [phone] [facility] [phone] Discharge med list transmitted to [facility] via [facility] per TCC request. [facility] [id number] Discharge order note d in epic. INSURANCE RISK MANAGER tasked to set up transport to [facility]. [facility] [phone] Auth has been obtain ed for discharge to [facility]. notified via secure chat. [facility] BASIC METABOLIC PANELon 11-0 Anion gap [Moles/Vol] 8 mmol/L Normal 3-13 [facility] Comment on above: Performed By: #### L AB15 ####Fisher Mussel: NOA PRYOR ([id number])[facility] ([facility])[address] [place] [address] Calcium [Mass/Vol] 9.5 mg/dL Normal 8.8-10.0 [facility] Comment on above: Performed By: #### L AB15 ####Fisher Mussel: NOA PRYOR ([phone])[facility] ([facility])[address] [place] [address] Chloride [Moles/Vol] 106 mmol/L Normal 98-107 [facility] Comment on above: Performed By: #### L AB15 ####Fisher Mussel: NOA PRYOR ([phone])[facility])[address] [place] [address] CO2 [Moles/Vol] 24 mmol/L Normal 23-31 [facility] Comment on above: Performed By: #### L AB15 ####Fisher Mussel: NOA PRYOR ([phone])[facility])[address] [place] [address] Creatinine [Mass/Vol] 0.71 mg/dL Normal 0.58-1.12 [facility] Comment on above: Performed By: #### L AB15 ####Fisher Mussel: NOA PRYOR ([phone])[facility])[address] [place] [address] GLOMERULAR FILTRATION RATE ML/MIN/1.73 SQ M.PREDICTED 87.7 mL/min/1.73m*2 Normal >60.0 [facility] Comment on above: Result Comment: Calc ulation based on the Chronic Kidney Disease Epidemiology Collaboration (CKD-EPI) equation refit without adjustment for race Performed By: #### L AB15 ####Fisher Mussel: NOA PRYOR ([phone])[facility] ([facility])[address] [place] [address] Glucose [Mass/Vol] 124 mg/dL High 82-115 [facility] Comment on above: Performed By: #### L AB15 ####Fisher Mussel: NOA PRYOR ([phone])[facility])[address] [place] [address] Potassium [Moles/Vol] 4.0 mmol/L Normal 3.5-5.1 [facility] Comment on above: Result Comment: [facility] potassium values may be up to 0.5 mmol/L lower than serum values. Performed By: #### L AB15 ####Fisher Mussel: NOA [id number])[facility] ([facility])[address] [place] [address] Sodium [Moles/Vol] 138 mmol/L Normal 136-145 [facility] Comment on above: Performed By: #### L AB15 ####Fisher Mussel: NOA PRYOR ([id number])[facility])[address] [place] [address] Urea nitrogen [Mass/Vol] 15 mg/dL Normal 9-23 [facility] Comment on above: Performed By: #### L AB15 ####Fisher Mussel: NOA PRYOR ([id number])[facility])[address] [place] [address] Basic metabolic 1998 panelon 07-01-2025 Anion gap [Moles/Vol] 8 mmol/L 3 - 13 mmol/L [facility] Calcium [Mass/Vol] 9.5 mg/dL 8.8 - 10. 0 mg/dL [facility] Chloride [Moles/Vol] 106 mmol/L 98 - 10 7 mmol/L [facility] CO2 [Moles/Vol] 24 mmol/L 23 - 31 mmol/L [facility] Creatinine [Mass/Vol] 0.71 mg/dL 0.58 - 1.12 mg/dL [facility] GFR/1.73 sq M.predicted (S/P/Bld) [Vol rate/Area] 87.7 mL/min - PINF [facility] Comment on above: Calculation based on the Chronic Kidney Disease Epidemiology Collaboration (CKD-EPI) equation refit without adjustment for race Glucose [Mass/Vol] 124 mg/dL High 82 - 115 mg/dL [facility] Interpretation and review of laboratory results Abnormal [facility] Potassium [Moles/Vol] 4 mmol/L 3.5 - 5.1 mmol/L [facility] Comment on above: Plasma potassium ayesha ues may be up to 0.5 mmol/L lower than serum values. Sodium [Moles/Vol] 138 mmol/L 136 - 145 mmol/L [facility] Urea nitrogen [Mass/Vol] 15 mg/dL 9 - 23 mg/dL [facility] CBC (HEMOGRAM)on 07-01-2025 Erythrocyte distribution width (RBC) [Ratio] 12.8 % Normal 11.5-15.0 [facility] Comment on above: Performed By: #### L [id number] ####Fisher Mussel: NOA PRYOR ([id number])[address] Hematocrit (Bld) [Volume fraction] 36.9 % Normal 35.0-47.0 [facility] Comment on above: Performed By: #### L AB294 ####Fisher Mussel: NOA PRYOR ([id number])[facility])[address] [place] [address] Hemoglobin (Bld) [Mass/Vol] 12.3 g/dL Normal 11.7-16.0 [facility] Comment on above: Performed By: #### L AB294 ####Fisher Mussel: NOA PRYOR ([id number])[address] MCH (RBC) [Entitic mass] 29.4 pg Normal 26.0-34.0 [facility] Comment on above: Performed By: #### L AB294 ####Fisher Mussel: NOA PRYOR ([id number])[facility])[address] [place] [address] MCHC 33.3 % Normal 30.5-36.0 [facility] Comment on above: Performed By: #### L AB294 ####Fisher Mussel: NOA PRYOR ([id number])[facility])[address] [place] [address] MCV (RBC) [Entitic vol] 88.1 fL Normal 77.0-99.0 S [facility] Comment on above: Performed By: #### L AB294 ####Fisher Mussel: NOA PRYOR ([phone])[facility])[address] [place] [address] Platelet mean volume (Bld) [Entitic vol] 9.7 fL Normal 9.0-12.7 [facility] Comment on above: Performed By: #### L AB294 ####Fisher Mussel: NOA PRYOR ([id number])[facility] ([facility])[address] [place] [address] Platelets (Bld) [#/Vol] 214 10*3/uL Normal 140-440 [facility] Comment on above: Performed By: #### L AB294 ####Fisher Mussel: NOA PRYOR ([id number])[facility])[address] [place] [address] RBC (Bld) [#/Vol] 4.19 10*6/uL Normal 3.80-5.20 [facility] Comment on above: Performed By: #### L AB294 ####Fisher Mussel: NOA PRYOR ([id number])[facility])[address] [place] [address] WBC (Bld) [#/Vol] 8.5 10*3/uL Normal 3.6-10.7 [facility] Comment on above: Performed By: #### L AB294 ####Fisher Mussel: NOA PRYOR ([id number])[facility] ([facility])[address] [place] [address] CBC panel Auto (Bld)on 07-01 Erythrocyte distribution width (RBC) [Ratio] 12.8 % 11.5 - 15.0 % [facility] Hematocrit (Bld) [Volume fraction] 36.9 % 35.0 - 47.0 % [facility] Hemoglobin (Bld) [Mass/Vol] 12.3 g/dL 11.7 - 16.0 g/dL [facility] Interpretation and review of laboratory results Normal [facility] MCH (RBC) [Entitic mass] 29.4 pg 26.0 - 34.0 pg [facility] MCHC (RBC) [Mass/Vol] 33.3 % 30.5 - 36.0 % [facility] MCV (RBC) [Entitic vol] 88.1 fL 77.0 - 99.0 fL [facility] Platelet mean volume (Bld) [Entitic vol] 9.7 fL 9.0 - 12.7 fL [facility] Platelets (Bld) [#/Vol] 214 10*3/uL 140 - 440 10*3/uL [facility] RBC (Bld) [#/Vol] 4.19 10*6/uL 3.80 - 5.2 0 10*6/uL [facility] WBC (Bld) [#/Vol] 8.5 10*3/uL 3.6 - 10.7 10*3/uL [facility] Laboratory - Chemistry and C hemistry - challengeon 07-01-2025 Glucose [Mass/Vol] 117 mg/dL High 70 - 100 mg/dL [facility] Glucose [Mass/Vol] 140 mg/dL High 70 - 100 mg/dL [facility] No Panel Informationon 07-01 Interpretation and review of laboratory results Abnormal [facility] Performed by: [address] [address] CLIA ID: [id number] [facility] Interpretation and review of laboratory results Abnormal [facility] Performed by: [address] [address] CLIA ID: [id number] [facility] Nursing Noteon 07-01-2025 Nursing Note Discharge instructio ns printed and placed in packet. IV removed. All belongings packed. Report called to nurse at [facility]. Normal [facility] Progress Noteon 07-01-2025 Progress Note Normal [facility] [id number] 06-30-2025 [id number] Reviewed chart. Spok e with son regarding questions for the Pasrr screen. Completed in [facility] for [facility]. Normal [facility] [id number] Normal [facility] BASIC METABOLIC PANELon Anion gap [Moles/Vol] 7 mmol/L Normal 3-13 [facility] Comment on above: Performed By: #### L AB15 ####Fisher Mussel: NOA PRYOR ([id number])[facility] ([facility])[address] [place] [address] Calcium [Mass/Vol] 9.4 mg/dL Normal 8.8-10.0 [facility] Comment on above: Performed By: #### L AB15 ####Fisher Mussel: NOA PRYOR ([id number])[facility] ([facility])[address] [place] [address] Chloride [Moles/Vol] 107 mmol/L Normal 98-107 [facility] Comment on above: Performed By: #### L AB15 ####Fisher Mussel: NOA PRYOR ([id number])[facility] ([facility])[address] [place] [address] CO2 [Moles/Vol] 23 mmol/L Normal 23-31 [facility] Comment on above: Performed By: #### L AB15 ####Fisher Mussel: NOA PRYOR ([id number])[facility])[address] [place] [address] Creatinine [Mass/Vol] 0.77 mg/dL Normal 0.58-1.12 [facility] Comment on above: Performed By: #### L AB15 ####Fisher Mussel: NOA PRYOR ([id number])[facility] ([facility])[address] [place] [address] GLOMERULAR FILTRATION RATE ML/MIN/1.73 SQ M.PREDICTED 79.6 mL/min/1.73m*2 Normal >60.0 [facility] Comment on above: Result Comment: Calc ulation based on the Chronic Kidney Disease Epidemiology Collaboration (CKD-EPI) equation refit without adjustment for race Performed By: #### L AB15 ####Fisher Mussel: NOA PRYOR ([id number])[facility] ([facility])[address] [place] [address] Glucose [Mass/Vol] 150 mg/dL High 82-115 [facility] Comment on above: Performed By: #### L AB15 ####Fisher Mussel: NOA PRYOR ([id number])[facility])[address] [place] [address] Potassium [Moles/Vol] 4.0 mmol/L Normal 3.5-5.1 [facility] Comment on above: Result Comment: [facility] potassium values may be up to 0.5 mmol/L lower than serum values. Performed By: #### L AB15 ####Fisher Mussel: NOA PRYOR ([id number])[facility])[address] [place] [address] Sodium [Moles/Vol] 137 mmol/L Normal 136-145 [facility] Comment on above: Performed By: #### L AB15 ####Fisher Mussel: NOA PRYOR ([id number])[facility] ([facility])[address] [place] [address] Urea nitrogen [Mass/Vol] 14 mg/dL Normal 9-23 [facility] Comment on above: Performed By: #### L AB15 ####Fisher Mussel: NOA PRYOR ([id number])[facility])[address] [place] [address] Bacteria identified Cx Nom ( U)Ordered By: Darrius Blue on 06-30-2025 Interpretation and review of laboratory results Abnormal [facility] Basic metabolic 1998 panelon 06-30-2025 Anion gap [Moles/Vol] 7 mmol/L 3 - 13 mmol/L [facility] Calcium [Mass/Vol] 9.4 mg/dL 8.8 - 10. 0 mg/dL [facility] Chloride [Moles/Vol] 107 mmol/L 98 - 10 7 mmol/L [facility] CO2 [Moles/Vol] 23 mmol/L 23 - 31 mmol/L [facility] Creatinine [Mass/Vol] 0.77 mg/dL 0.58 - 1.12 mg/dL [facility] GFR/1.73 sq M.predicted (S/P/Bld) [Vol rate/Area] 79.6 mL/min - PINF [facility] Comment on above: Calculation based on the Chronic Kidney Disease Epidemiology Collaboration (CKD-EPI) equation refit without adjustment for race Glucose [Mass/Vol] 150 mg/dL High 82 - 115 mg/dL [facility] Interpretation and review of laboratory results Abnormal [facility] Potassium [Moles/Vol] 4 mmol/L 3.5 - 5.1 mmol/L [facility] Comment on above: Plasma potassium ayesha ues may be up to 0.5 mmol/L lower than serum values. Sodium [Moles/Vol] 137 mmol/L 136 - 145 mmol/L [facility] Urea nitrogen [Mass/Vol] 14 mg/dL 9 - 23 mg/dL [facility] CBC (HEMOGRAM)on 06-30-2025 Erythrocyte distribution width (RBC) [Ratio] 12.8 % Normal 11.5-15.0 [facility] Comment on above: Performed By: #### L [id number] ####Fisher Mussel: NOA PRYOR ([id number])[facility])[address] [place] [address] Hematocrit (Bld) [Volume fraction] 35.2 % Normal 35.0-47.0 [facility] Comment on above: Performed By: #### L AB294 ####Fisher Mussel: NOA PRYOR ([id number])[address] Hemoglobin (Bld) [Mass/Vol] 11.7 g/dL Normal 11.7-16.0 [facility] Comment on above: Performed By: #### L AB294 ####Fisher Mussel: NOA PRYOR ([id number])[address] MCH (RBC) [Entitic mass] 29.4 pg Normal 26.0-34.0 [facility] Comment on above: Performed By: #### L AB294 ####Fisher Mussel: NOA PRYOR ([id number])[address] MCHC 33.2 % Normal 30.5-36.0 [facility] Comment on above: Performed By: #### L AB294 ####Fisher Mussel: NOA PRYOR ([id number])[address] MCV (RBC) [Entitic vol] 88.4 fL Normal 77.0-99.0 [facility] Comment on above: Performed By: #### L AB294 ####Fisher Mussel: NOA PRYOR ([id number])[facility])[address] [place] [address] Platelet mean volume (Bld) [Entitic vol] 9.8 fL Normal 9.0-12.7 [facility] Comment on above: Performed By: #### L AB294 ####Fisher Mussel: NOA PRYOR ([id number])[facility])[address] [place] [address] Platelets (Bld) [#/Vol] 219 10*3/uL Normal 140-440 [facility] Comment on above: Performed By: #### L AB294 ####Fisher Mussel: NOA PRYOR ([id number])[facility])[address] [place] [address] RBC (Bld) [#/Vol] 3.98 10*6/uL Normal 3.80-5.20 [facility] Comment on above: Performed By: #### L AB294 ####Fisher Mussel: NOA PRYOR ([id number])[facility])[address] [place] [address] WBC (Bld) [#/Vol] 8.5 10*3/uL Normal 3.6-10.7 [facility] Comment on above: Performed By: #### L [id number] ####Fisher Mussel: NOA PRYOR ([id number])[facility])[address] [place] [address] CBC panel Auto (Bld)on 06-30 Erythrocyte distribution width (RBC) [Ratio] 12.8 % 11.5 - 15.0 % [facility] Hematocrit (Bld) [Volume fraction] 35.2 % 35.0 - 47.0 % [facility] Hemoglobin (Bld) [Mass/Vol] 11.7 g/dL 11.7 - 16.0 g/dL [facility] Interpretation and review of laboratory results Normal [facility] MCH (RBC) [Entitic mass] 29.4 pg 26.0 - 34.0 pg [facility] MCHC (RBC) [Mass/Vol] 33.2 % 30.5 - 36.0 % [facility] MCV (RBC) [Entitic vol] 88.4 fL 77.0 - 99.0 fL [facility] Platelet mean volume (Bld) [Entitic vol] 9.8 fL 9.0 - 12.7 fL [facility] Platelets (Bld) [#/Vol] 219 10*3/uL 140 - 440 10*3/uL [facility] RBC (Bld) [#/Vol] 3.98 10*6/uL 3.80 - 5.2 0 10*6/uL [facility] WBC (Bld) [#/Vol] 8.5 10*3/uL 3.6 - 10.7 10*3/uL [facility] Consulton 06-30-2025 Consult Normal [facility] Laboratory - Chemistry and C hemistry - challengeon 06-30-2025 Glucose [Mass/Vol] 109 mg/dL High 70 - 100 mg/dL [facility] Glucose [Mass/Vol] 169 mg/dL High 70 - 100 mg/dL [facility] Glucose [Mass/Vol] 100 mg/dL 70 - 100 mg/dL [facility] Glucose [Mass/Vol] 160 mg/dL High 70 - 100 mg/dL [facility] Laboratory - Microbiology an d Antimicrobial susceptibilityOrdered By: Darrius Blue on 06-30-2025 Bacteria identified Cx Nom (U) 10,000-50,000 CFU/mL Enterococcus faecalis Abnormal [facility] Comment on above: Susceptibility testi ng performed only upon request for cultures with multiple types of microorganisms below 100,000 CFU/ml. Bacteria identified Cx Nom (U) 10,000-50,000 CFU/mL Escherichia coli Abnormal [facility] Comment on above: Susceptibility testi ng performed only upon request for cultures with multiple types of microorganisms below 100,000 CFU/ml. No Panel Informationon 06-30 Interpretation and review of laboratory results Abnormal [facility] Performed by: [place] [address] CLIA ID: [id number] [facility] Interpretation and review of laboratory results Abnormal [facility] Performed by: [address] [address] CLIA ID: [id number] [facility] Interpretation and review of laboratory results Normal [facility] Performed by: [address] [address] CLIA ID: [id number] [facility] Interpretation and review of laboratory results Abnormal [facility] Performed by: [place] [id number] CLIA ID: [id number] [facility] Progress Noteon 06-30-2025 Progress Note Nutrition rescreen completed. Chart reviewed. Patient to be monitored and followed by the diet microbiology quality control technician. [place] Normal [facility] Progress Note Normal [facility] Progress Note Normal [facility] Progress Note Normal [facility] [id number] 06-29-2025 [id number] Normal [facility] [id number] 06-29-2025 [id number] Normal [facility] 36on 06-29-2025 36 CMN was faxed to [facility] on 06/19/25 Normal [facility] BASIC METABOLIC PANELon 11-0 Anion gap [Moles/Vol] 5 mmol/L Normal 3-13 [facility] Comment on above: Performed By: #### L AB15 ####Fisher Mussel: NOA PRYOR ([phone])[address] Calcium [Mass/Vol] 9.3 mg/dL Normal 8.8-10.0 [facility] Comment on above: Performed By: #### L AB15 ####Fisher Mussel: NOA PRYOR ([phone])[facility])[address] [place] [address] Chloride [Moles/Vol] 111 mmol/L High 98-107 [facility] Comment on above: Performed By: #### L AB15 ####Fisher Mussel: NOA PRYOR ([id number])[facility])[address] [place] [address] CO2 [Moles/Vol] 21 mmol/L Low 23-31 [facility] Comment on above: Performed By: #### L AB15 ####Fisher Mussel: NOA PRYOR ([id number])[facility])[address] [place] [address] Creatinine [Mass/Vol] 0.79 mg/dL Normal 0.58-1.12 [facility] Comment on above: Performed By: #### L AB15 ####Fisher Mussel: NOA PRYOR ([id number])[facility])[address] [place] [address] [place] GLOMERULAR FILTRATION RATE ML/MIN/1.73 SQ M.PREDICTED 77.2 mL/min/1.73m*2 Normal >60.0 [facility] Comment on above: Result Comment: Calc ulation based on the Chronic Kidney Disease Epidemiology Collaboration (CKD-EPI) equation refit without adjustment for race Performed By: #### L AB15 ####Fisher Mussel: NOA PRYOR ([phone])[facility] ([facility])[address] [place] [address] Glucose [Mass/Vol] 154 mg/dL High 82-115 [facility] Comment on above: Performed By: #### L AB15 ####Fisher Mussel: NOA PRYOR ([phone])[facility] ([facility])[address] [place] [address] [place] Potassium [Moles/Vol] 4.1 mmol/L Normal 3.5-5.1 [facility] Comment on above: Result Comment: [facility] potassium values may be up to 0.5 mmol/L lower than serum values. Performed By: #### L AB15 ####Fisher Mussel: NOA PRYOR ([phone])[facility] ([facility])[address] [place] [address] [place] Sodium [Moles/Vol] 137 mmol/L Normal 136-145 [facility] Comment on above: Performed By: #### L AB15 ####Fisher Mussel: NOA PRYOR ([id number])[facility])[address] [place] [address] [place] Urea nitrogen [Mass/Vol] 12 mg/dL Normal 9-23 [facility] Comment on above: Performed By: #### L AB15 ####Fisher Mussel: NOA [id number])[facility] ([facility])[address] [place] [address] Basic metabolic 1998 panelon 06-29-2025 Anion gap [Moles/Vol] 5 mmol/L 3 - 13 mmol/L [facility] Calcium [Mass/Vol] 9.3 mg/dL 8.8 - 10. 0 mg/dL [facility] Chloride [Moles/Vol] 111 mmol/L High 98 - 10 7 mmol/L [facility] CO2 [Moles/Vol] 21 mmol/L Low 23 - 31 mmol/L [facility] Creatinine [Mass/Vol] 0.79 mg/dL 0.58 - 1.12 mg/dL [facility] GFR/1.73 sq M.predicted (S/P/Bld) [Vol rate/Area] 77.2 mL/min - PINF [facility] Comment on above: Calculation based on the Chronic Kidney Disease Epidemiology Collaboration (CKD-EPI) equation refit without adjustment for race Glucose [Mass/Vol] 154 mg/dL High 82 - 115 mg/dL [facility] Interpretation and review of laboratory results Abnormal [facility] Potassium [Moles/Vol] 4.1 mmol/L 3.5 - 5.1 mmol/L [facility] Comment on above: Plasma potassium ayesha ues may be up to 0.5 mmol/L lower than serum values. Sodium [Moles/Vol] 137 mmol/L 136 - 145 mmol/L [facility] Urea nitrogen [Mass/Vol] 12 mg/dL 9 - 23 mg/dL [facility] CBC W Auto Differential pane l (Bld)on 06-29-2025 Basophils (Bld) [#/Vol] 0.1 10*3/uL 0.0 - 0.2 10*3/uL [facility] Basophils/100 WBC (Bld) 0.7 % 0.0 - 2.0 % [facility] Eosinophils (Bld) [#/Vol] 0.3 10*3/uL 0.0 - 0.5 10*3/uL [facility] Eosinophils/100 WBC (Bld) 3.7 % 0.0 - 6.0 % [facility] Erythrocyte distribution width (RBC) [Ratio] 12.9 % 11.5 - 15.0 % [facility] Hematocrit (Bld) [Volume fraction] 36.7 % 35.0 - 47.0 % [facility] Hemoglobin (Bld) [Mass/Vol] 12 g/dL 11.7 - 16.0 g/dL [facility] Immature granulocytes (Bld) [#/Vol] 0.1 10*3/uL High NINF - 0.1 10*3/uL [facility] Immature granulocytes/100 WBC (Bld) 0.7 % 0.0 - 2.0 % [facility] Interpretation and review of laboratory results Abnormal [facility] Lymphocytes (Bld) [#/Vol] 1.9 10*3/uL 1.0 - 4.3 10*3/uL [facility] Lymphocytes/100 WBC (Bld) 21.5 % 15.0 - 45.0 % [facility] MCH (RBC) [Entitic mass] 29.3 pg 26.0 - 34.0 pg [facility] MCHC (RBC) [Mass/Vol] 32.7 % 30.5 - 36.0 % [facility] MCV (RBC) [Entitic vol] 89.7 fL 77.0 - 99.0 fL [facility] Monocytes (Bld) [#/Vol] 0.6 10*3/uL 0.0 - 0.9 10*3/uL [facility] Monocytes/100 WBC (Bld) 7.1 % 5.0 - 13.0 % [facility] Neutrophils (Bld) [#/Vol] 5.7 10*3/uL 1.8 - 7.5 10*3/uL [facility] Neutrophils/100 WBC (Bld) 66.3 % 38.0 - 82.0 % [facility] Nucleated RBC/100 WBC (Bld) [Ratio] 0 % [facility] Platelet mean volume (Bld) [Entitic vol] 9.7 fL 9.0 - 12.7 fL [facility] Platelets (Bld) [#/Vol] 218 10*3/uL 140 - 440 10*3/uL [facility] RBC (Bld) [#/Vol] 4.09 10*6/uL 3.80 - 5.2 0 10*6/uL [facility] WBC (Bld) [#/Vol] 8.7 10*3/uL 3.6 - 10.7 10*3/uL [facility] CBC WITH AUTO DIFFERENTIALon 06-29-2025 Basophils (Bld) [#/Vol] 0.1 10*3/uL Normal 0.0-0.2 [facility] Comment on above: Performed By: #### L [id number] ####Fisher Mussel: NOA PRYOR ([phone])[facility] ([facility])[address] [place] [address] Basophils/100 WBC (Bld) 0.7 % Normal 0.0-2.0 [facility] Comment on above: Performed By: #### L [id number] ####Fisher Mussel: NOA PRYOR ([id number])[facility])[address] [place] [address] Eosinophils (Bld) [#/Vol] 0.3 10*3/uL Normal 0.0-0.5 [facility] Comment on above: Performed By: #### L [id number] ####Fisher Mussel: NOA PRYOR ([id number])[facility] ([facility])[address] [place] [address] Eosinophils/100 WBC (Bld) 3.7 % Normal 0.0-6.0 [facility] Comment on above: Performed By: #### L [id number] ####Fisher Mussel: NOA PRYOR ([phone])[facility])[address] [place] [address] Erythrocyte distribution width (RBC) [Ratio] 12.9 % Normal 11.5-15.0 [facility] Comment on above: Performed By: #### L [id number] ####Fisher Mussel: NOA PRYOR ([phone])[facility])[address] [place] [address] Hematocrit (Bld) [Volume fraction] 36.7 % Normal 35.0-47.0 [facility] Comment on above: Performed By: #### L [id number] ####Fisher Mussel: NOA PRYOR ([id number])[facility])[address] [place] [address] Hemoglobin (Bld) [Mass/Vol] 12.0 g/dL Normal 11.7-16.0 [facility] Comment on above: Performed By: #### L [id number] ####Fisher Mussel: NOA PRYOR ([id number])[facility])[address] [place] [address] IMMATURE GRANS % 0.7 % Normal 0.0-2.0 [facility] Comment on above: Performed By: #### L [id number] ####Fisher Mussel: NOA PRYOR ([id number])[facility])[address] [place] [address] IMMATURE GRANS ABSOLUTE 0.1 10*3/uL High <0.1 [facility] Comment on above: Performed By: #### L [id number] ####Fisher Mussel: NOA PRYOR ([id number])[address] Lymphocytes (Bld) [#/Vol] 1.9 10*3/uL Normal 1.0-4.3 [facility] Comment on above: Performed By: #### L [id number] ####Fisher Mussel: NOA PRYOR ([id number])[address] Lymphocytes/100 WBC (Bld) 21.5 % Normal 15.0-45.0 [facility] Comment on above: Performed By: #### L [id number] ####Fisher Mussel: NOA PRYOR ([id number])[address] MCH (RBC) [Entitic mass] 29.3 pg Normal 26.0-34.0 [facility] Comment on above: Performed By: #### L [id number] ####Fisher Mussel: NOA PRYOR ([id number])[address] MCHC 32.7 % Normal 30.5-36.0 [facility] Comment on above: Performed By: #### L [id number] ####Fisher Mussel: NOA [id number])[facility] ([facility])[address] [place] [address] MCV (RBC) [Entitic vol] 89.7 fL Normal 77.0-99.0 S [facility] Comment on above: Performed By: #### L [id number] ####Fisher Mussel: NOA PRYOR ([id number])[facility] ([facility])[address] [place] [address] Monocytes (Bld) [#/Vol] 0.6 10*3/uL Normal 0.0-0.9 [facility] Comment on above: Performed By: #### L [id number] ####Fisher Mussel: NOA PRYOR ([id number])[facility] ([facility])[address] [place] [address] Monocytes/100 WBC (Bld) 7.1 % Normal 5.0-13.0 [facility] Comment on above: Performed By: #### L [id number] ####Fisher Mussel: NOA PRYOR ([phone])[facility] ([facility])[address] [place] [address] NEUTROPHILS ABSOLUTE 5.7 10*3/uL Normal 1.8-7.5 [facility] Comment on above: Performed By: #### L [id number] ####Fisher Mussel: NOA PRYOR ([id number])[facility] ([facility])[address] [place] [address] Neutrophils/100 WBC (Bld) 66.3 % Normal 38.0-82.0 [facility] Comment on above: Performed By: #### L [id number] ####Fisher Mussel: NOA PRYOR ([id number])[facility] ([facility])[address] [place] [address] NRBC 0.0 /100 WBCs Normal 0.0-2.0 [facility] Comment on above: Performed By: #### L [id number] ####Fisher Mussel: NOA PRYOR ([phone])[facility] [place] ([facility])[address] [place] [address] Platelet mean volume (Bld) [Entitic vol] 9.7 fL Normal 9.0-12.7 [facility] Comment on above: Performed By: #### L [id number] ####Fisher Mussel: NOA PRYOR ([id number])[facility] ([facility])[address] [place] [address] Platelets (Bld) [#/Vol] 218 10*3/uL Normal 140-440 [facility] Comment on above: Performed By: #### L [id number] ####Fisher Mussel: NOA PRYOR ([id number])[facility] ([facility])[address] [place] [address] RBC (Bld) [#/Vol] 4.09 10*6/uL Normal 3.80-5.20 [facility] Comment on above: Performed By: #### L [id number] ####Fisher Mussel: NOA PRYOR ([phone])[facility] ([facility])[address] [place] [address] WBC (Bld) [#/Vol] 8.7 10*3/uL Normal 3.6-10.7 [facility] Comment on above: Performed By: #### L [id number] ####Fisher Mussel: NOA PRYOR ([id number])[facility] ([facility])[address] [place] [address] ECG 12-LEADon 06-29-2025 ECG 12-LEAD IMPRESSION: EKG shows NSR, LAD, normal [place] QRS and QTC intervals, no STEMI, no SVT, no LVH. Signs of old inferior [place] unchanged. Electronically Signed On 06-29-2025 01:06:23 EST by Ethan Hernandez Normal [facility] - Chemistry and C hemistry - challengeon 06-29-2025 Glucose [Mass/Vol] 135 mg/dL High 70 - 100 mg/dL [facility] Glucose [Mass/Vol] 189 mg/dL High 70 - 100 mg/dL [facility] Glucose [Mass/Vol] 99 mg/dL 70 - 100 mg/dL [facility] Glucose [Mass/Vol] 70 mg/dL 70 - 100 mg/dL [facility] Glucose [Mass/Vol] 155 mg/dL High 70 - 100 mg/dL [facility] [employer] No Panel Informationon 06-29 Interpretation and review of laboratory results Abnormal [facility] Performed by: [facility], [address] [place] [address], [facility] [address] CLIA ID: [id number] [facility] [employer] [facility] Interpretation and review of laboratory results Abnormal [facility] Performed by: [facility], [address] [place] [address], [place] [address] CLIA ID: [id number] [facility] Interpretation and review of laboratory results Normal [facility] Performed by: [facility], [address] [place] [address], [place] [address] CLIA ID: [id number] [facility] [employer] [facility] Interpretation and review of laboratory results Normal [facility] Performed by: [facility], [address] [place] [address], [facility] [address] CLIA ID: [id number] [facility] [employer] [facility] Interpretation and review of laboratory results Abnormal [facility] Performed by: [facility], [address] [place] [address], [place] [address] CLIA ID: [id number] [facility] EKG shows NSR, LAD, normal [place] QRS and QTC intervals, no STEMI, no SVT, no LVH. Signs of old inferior [place] unchanged. Electronically Signed On 06-29-2025 01:06:23 EST by Ethan Hernandez CV Ethan Tobin MD - 06/29/2025 IMPRESSION: EKG shows NSR, LAD, normal NC QRS and QTC intervals, no STEMI, no SVT, no LVH. Signs of old inferior [place] unchanged. Electronically Signed On 06-29-2025 01:06:23 EST by Ethan Hernandez [facility] [employer] No Panel InformationOrdered By: Ethan Hernandez on 06-29-2025 P [place] -10 degrees [facility] [employer] Work Phone: NC Interval 184 ms [facility] Work Phone: QRS [place] -48 degrees [facility] Work Phone: QRSD Interval 88 ms [facility] Work Phone: QT Interval 409 ms [facility] Work Phone: QTC Interval 446 ms [facility] Work Phone: T Wave [place] 26 degrees [employer] Work Phone: [employer] Work Phone: Nursing Noteon 06-29-2025 Nursing Note Normal [facility] [employer] [facility] Progress Noteon 06-29-2025 Progress Note Normal [facility] [employer] [facility] Progress [facility] Normal [facility] [employer] [facility] Vital signsOrdered By: Damien Hernandez on 06-29-2025 Heart rate 71 /min bpm [facility] Work Phone: BLOOD CULTUREon 06-28-2025 Bacteria identified Cx Nom (Bld) Normal [facility] [employer] [facility] Comment on above: Performed By: #### L [id number] ####Fisher Mussel: NOA PRYOR ([id number])[facility] ([address] CBC W Auto Differential pane l (Bld)on 06-28-2025 Basophils (Bld) [#/Vol] 0.1 10*3/uL 0.0 - 0.2 10*3/uL [facility] [employer] Basophils/100 WBC (Bld) 0.6 % 0.0 - 2.0 % [facility] [employer] Eosinophils (Bld) [#/Vol] 0.3 10*3/uL 0.0 - 0.5 10*3/uL [facility] [employer] Eosinophils/100 WBC (Bld) 3 % 0.0 - 6.0 % [facility] [employer] Erythrocyte distribution width (RBC) [Ratio] 13 % 11.5 - 15.0 % [facility] [employer] Hematocrit (Bld) [Volume fraction] 41.9 % 35.0 - 47.0 % [facility] [employer] Hemoglobin (Bld) [Mass/Vol] 13.8 g/dL 11.7 - 16.0 g/dL [facility] [employer] Immature granulocytes (Bld) [#/Vol] 0.1 10*3/uL High NINF - 0.1 10*3/uL [facility] [employer] Immature granulocytes/100 WBC (Bld) 0.5 % 0.0 - 2.0 % [facility] Interpretation and review of laboratory results Abnormal [facility] Lymphocytes (Bld) [#/Vol] 2.7 10*3/uL 1.0 - 4.3 10*3/uL [facility] Lymphocytes/100 WBC (Bld) 26.9 % 15.0 - 45.0 % [facility] MCH (RBC) [Entitic mass] 29.4 pg 26.0 - 34.0 pg [facility] MCHC (RBC) [Mass/Vol] 32.9 % 30.5 - 36.0 % [facility] MCV (RBC) [Entitic vol] 89.1 fL 77.0 - 99.0 fL [facility] Monocytes (Bld) [#/Vol] 0.6 10*3/uL 0.0 - 0.9 10*3/uL [facility] Monocytes/100 WBC (Bld) 5.7 % 5.0 - 13.0 % [facility] Neutrophils (Bld) [#/Vol] 6.4 10*3/uL 1.8 - 7.5 10*3/uL [facility] Neutrophils/100 WBC (Bld) 63.3 % 38.0 - 82.0 % [facility] Nucleated RBC/100 WBC (Bld) [Ratio] 0 % [facility] Platelet mean volume (Bld) [Entitic vol] 10 fL 9.0 - 12.7 fL [facility] Platelets (Bld) [#/Vol] 232 10*3/uL 140 - 440 10*3/uL [facility] RBC (Bld) [#/Vol] 4.7 10*6/uL 3.80 - 5.2 0 10*6/uL [facility] WBC (Bld) [#/Vol] 10.1 10*3/uL 3.6 - 10.7 10*3/uL [facility] CBC WITH AUTO DIFFERENTIALon 06-28-2025 Basophils (Bld) [#/Vol] 0.1 10*3/uL Normal 0.0-0.2 [facility] Comment on above: Performed By: #### L [id number] ####Fisher Mussel: NOA PRYOR ([id number])[facility] [place] ([address] Basophils/100 WBC (Bld) 0.6 % Normal 0.0-2.0 [facility] Comment on above: Performed By: #### L [id number] ####Fisher Mussel: NOA PRYOR ([id number])[facility])[address] [place] [address] Eosinophils (Bld) [#/Vol] 0.3 10*3/uL Normal 0.0-0.5 [facility] Comment on above: Performed By: #### L [id number] ####Fisher Mussel: NOA PRYOR ([id number])[facility])[address] [place] [address] Eosinophils/100 WBC (Bld) 3.0 % Normal 0.0-6.0 [facility] Comment on above: Performed By: #### L [id number] ####Fisher Mussel: NOA PRYOR ([id number])[address] Erythrocyte distribution width (RBC) [Ratio] 13.0 % Normal 11.5-15.0 [facility] Comment on above: Performed By: #### L [id number] ####Fisher Mussel: NOA PRYOR ([id number])[address] Hematocrit (Bld) [Volume fraction] 41.9 % Normal 35.0-47.0 [facility] Comment on above: Performed By: #### L [id number] ####Fisher Mussel: NOA PRYOR ([id number])[facility])[address] [place] [address] Hemoglobin (Bld) [Mass/Vol] 13.8 g/dL Normal 11.7-16.0 [facility] Comment on above: Performed By: #### L [id number] ####Fisher Mussel: NOA PRYOR ([phone])[facility])[address] [place] [address] IMMATURE GRANS % 0.5 % Normal 0.0-2.0 [facility] Comment on above: Performed By: #### L [id number] ####Fisher Mussel: NOA [id number])[facility])[address] [place] [address] IMMATURE GRANS ABSOLUTE 0.1 10*3/uL High <0.1 [facility] Comment on above: Performed By: #### L [id number] ####Fisher Mussel: NOA PRYOR ([id number])[facility])[address] [place] [address] Lymphocytes (Bld) [#/Vol] 2.7 10*3/uL Normal 1.0-4.3 [facility] Comment on above: Performed By: #### L [id number] ####Fisher Mussel: NOA PRYOR ([phone])[facility])[address] [place] [address] Lymphocytes/100 WBC (Bld) 26.9 % Normal 15.0-45.0 [facility] Comment on above: Performed By: #### L [id number] ####Fisher Mussel: NOA PRYOR ([phone])[facility])[address] [place] [address] MCH (RBC) [Entitic mass] 29.4 pg Normal 26.0-34.0 [facility] Comment on above: Performed By: #### L [id number] ####Fisher Mussel: NOA PRYOR ([id number])[facility])[address] [place] [address] MCHC 32.9 % Normal 30.5-36.0 [facility] Comment on above: Performed By: #### L [id number] ####Fisher Mussel: NOA PRYOR ([id number])[facility])[address] [place] [address] MCV (RBC) [Entitic vol] 89.1 fL Normal 77.0-99.0 S [facility] Comment on above: Performed By: #### L [id number] ####Fisher Mussel: NOA PRYOR ([phone])[facility])[address] [place] [address] [place] Monocytes (Bld) [#/Vol] 0.6 10*3/uL Normal 0.0-0.9 [facility] Comment on above: Performed By: #### L [id number] ####Fisher Mussel: NOA PRYOR ([phone])[facility] ([facility])[address] [place] [address] Monocytes/100 WBC (Bld) 5.7 % Normal 5.0-13.0 [facility] Comment on above: Performed By: #### L [id number] ####Fisher Mussel: NOA PRYOR ([id number])[facility] ([facility])[address] [place] [address] NEUTROPHILS ABSOLUTE 6.4 10*3/uL Normal 1.8-7.5 [facility] Comment on above: Performed By: #### L [id number] ####Fisher Mussel: NOA PRYOR ([phone])[facility] ([facility])[address] [place] [address] Neutrophils/100 WBC (Bld) 63.3 % Normal 38.0-82.0 [facility] Comment on above: Performed By: #### L [id number] ####Fisher Mussel: NOA PRYOR ([id number])[facility] ([facility])[address] [place] [address] NRBC 0.0 /100 WBCs Normal 0.0-2.0 [facility] Comment on above: Performed By: #### L [id number] ####Fisher Mussel: NOA PRYOR ([phone])[facility] ([facility])[address] [place] [address] Platelet mean volume (Bld) [Entitic vol] 10.0 fL Normal 9.0-12.7 [facility] Comment on above: Performed By: #### L [id number] ####Fisher Mussel: NOA PRYOR ([id number])[facility] ([facility])[address] [place] [address] [place] Platelets (Bld) [#/Vol] 232 10*3/uL Normal 140-440 [facility] Comment on above: Performed By: #### L [id number] ####Fisher Mussel: NOA PRYOR ([phone])[facility])[address] [place] [address] RBC (Bld) [#/Vol] 4.70 10*6/uL Normal 3.80-5.20 [facility] Comment on above: Performed By: #### L [id number] ####Fisher Mussel: NOA PRYOR ([phone])[facility])[address] [place] [address] WBC (Bld) [#/Vol] 10.1 10*3/uL Normal 3.6-10.7 [facility] Comment on above: Performed By: #### L [id number] ####Fisher Mussel: NOA PRYOR ([phone])[facility])[address] [place] [address] COMPLETE URINALYSIS WITH REF JAMES TO CULTUREon 06-28-2025 BACTERIA (#/HPF) IN URINE Few Abnormal Negative [facility] Comment on above: Performed By: #### L [id number], [id number] ####Fisher Mussel: NOA PRYOR ([id number])[facility])[address] [place] [address] BILIRUBIN, TOTAL PRESENCE IN URINE Negative Normal Negative [facility] Comment on above: Performed By: #### Claribel [id number], [id number] ####Fisher Mussel: NOA PRYOR ([id number])[facility])[address] [place] [address] Clarity (U) Extra Turbid Abnormal Clear [facility] Comment on above: Performed By: #### L [id number], [id number] ####Fisher Mussel: NOA PRYOR ([id number])[address] Color (U) Yellow Normal Lt. Yellow [facility] Comment on above: Performed By: #### L [id number], [id number] ####Fisher Mussel: NOA [id number])[facility] ([facility])[address] [place] [address] GLUCOSE (MG/DL) IN URINE Normal Normal Normal (<70) [facility] Comment on above: Performed By: #### L [id number], [id number] ####Fisher Mussel: NOA PRYOR ([id number])[facility] ([facility])[address] [place] [address] HEMOGLOBIN PRESENCE IN URINE 0.06 mg/dL Abnormal Negative [facility] Comment on above: Performed By: #### L [id number], [id number] ####Fisher Mussel: NOA PRYOR ([id number])[facility] ([facility])[address] [place] [address] HYALINE CASTS (#/LPF) IN URINE SEDIMENT BY MICROSCOPY Negative Normal Negative [facility] Comment on above: Performed By: #### L [id number], [id number] ####Fisher Mussel: NOA PRYOR ([id number])[facility] ([facility])[address] [place] [address] Ketones Ql (U) Negative Normal Negative [facility] Comment on above: Performed By: #### L [id number], [id number] ####Fisher Mussel: NOA PRYOR ([id number])[facility] ([facility])[address] [place] [address] LEUKOCYTE ESTERASE PRESENCE IN URINE BY TEST STRIP 500 Veronica/uL Abnormal Negative [facility] Comment on above: Performed By: #### L AB239, [id number] ####Fisher Mussel: NOA PRYOR ([id number])[facility] ([facility])[address] [place] [address] NITRITE PRESENCE IN URINE Positive Abnormal Negative [facility] Comment on above: Performed By: #### L AB239, [id number] ####Fisher Mussel: NOA PRYOR ([id number])[facility] [place] ([facility])[address] [place] [address] NON-SQUAMOUS EPITHELIAL (#/HPF) IN URINE 0-2 Abnormal Negative [facility] Comment on above: Performed By: #### L AB239, [id number] ####Fisher Mussel: NOA PRYOR ([id number])[facility])[address] [place] [address] pH (U) 8.0 [pH] Normal 5.0-8.0 [facility] Comment on above: Performed By: #### L AB239, [id number] ####Fisher Mussel: NOA PRYOR ([id number])[facility])[address] [place] [address] Protein (U) [Mass/Vol] 30 mg/dL Abnormal Negative [facility] Comment on above: Performed By: #### L AB239, [id number] ####Fisher Mussel: NOA PRYOR ([phone])[facility])[address] [place] [address] RBC (#/HPF) IN URINE SEDIMENT 11-25 Abnormal 0-2 [facility] Comment on above: Performed By: #### Claribel AB239, [id number] ####Fisher Mussel: NOA PRYOR ([phone])[facility])[address] [place] [address] Specific gravity (U) [Rel density] 1.013 Normal 1.005-1.030 [facility] Comment on above: Result Comment: CHERISE Morrison COMMENTS:This specimen has been reflexed to urine culture. Performed By: #### L AB239, [id number] ####Fisher Mussel: NOA PRYOR ([phone])[facility])[address] [place] [address] SQUAMOUS EPITHELIAL CELLS (#/HPF) IN URINE SEDIMENT 0-2 Normal 3-5 [facility] Comment on above: Performed By: #### L AB239, [id number] ####Fisher Mussel: NOA PRYOR ([phone])[facility])[address] [place] [address] UROBILINOGEN (MG/DL) IN URINE Normal Normal Normal (0-1) [facility] Comment on above: Performed By: #### L [id number], [id number] ####Fisher Mussel: NOA PRYOR ([phone])[facility] ([facility])[address] [place] [address] WBC (LEUKOCYTE) (#/HPF) IN URINE SEDIMENT >100 Abnormal 0-5 [facility] Comment on above: Performed By: #### L AB239, [id number] ####Fisher Mussel: NOA PRYOR ([phone])[facility] ([facility])[address] [place] [address] WBC (LEUKOCYTE) CLUMPS (#/HPF) IN URINE SEDIMENT Many Abnormal Negative [facility] Comment on above: Performed By: #### Claribel AB239, [id number] ####Fisher Mussel: NOA PRYOR ([phone])[facility])[address] [place] [address] COMPREHENSIVE METABOLIC PANE Satnam 06-28-2025 Albumin [Mass/Vol] 3.7 g/dL Normal 3.1-4.5 [facility] Comment on above: Performed By: #### L AB17, [id number] ####Fisher Mussel: NOA PRYOR ([id number])[facility] ([facility])[address] [place] [address] ALP [Catalytic activity/Vol] 59 U/L Normal 40-150 [facility] Comment on above: Performed By: #### L AB17, [id number] ####Fisher Mussel: NOA PRYOR ([phone])[facility])[address] [place] [address] ALT [Catalytic activity/Vol] U/L Normal <30 [facility] Comment on above: Performed By: #### L AB17, [id number] ####Fisher Mussel: NOA PRYOR ([id number])[facility])[address] [place] [address] Anion gap [Moles/Vol] 10 mmol/L Normal 3-13 [facility] Comment on above: Performed By: #### L AB17, [id number] ####Fisher Mussel: NOA PRYOR ([phone])[facility] ([facility])[address] [place] [address] [place] AST [Catalytic activity/Vol] 15 U/L Normal <34 [facility] Comment on above: Performed By: #### Claribel BLISS, [id number] ####Fisher Mussel: NOA PRYOR ([id number])[facility] ([facility])[address] [place] [address] Bilirubin [Mass/Vol] 0.5 mg/dL Normal <1.2 [facility] Comment on above: Performed By: #### Claribel BLISS, [id number] ####Fisher Mussel: NOA PRYOR ([phone])[facility] ([facility])[address] [place] [address] Calcium [Mass/Vol] 10.1 mg/dL High 8.8-10.0 [facility] Comment on above: Performed By: #### Claribel BLISS, [id number] ####Fisher Mussel: NOA PRYOR ([id number])[facility] ([facility])[address] [place] [address] [place] Chloride [Moles/Vol] 104 mmol/L Normal 98-107 [facility] Comment on above: Performed By: #### Claribel BLISS, [id number] ####Fisher Mussel: NOA PRYOR ([id number])[facility] ([facility])[address] [place] [address] [place] CO2 [Moles/Vol] 24 mmol/L Normal 23-31 [facility] Comment on above: Performed By: #### Claribel AB17, [id number] ####Fisher Mussel: NOA PRYOR ([id number])[facility] ([facility])[address] [place] [address] [place] Creatinine [Mass/Vol] 0.93 mg/dL Normal 0.58-1.12 [facility] Comment on above: Performed By: #### Claribel AB17, [id number] ####Fisher Mussel: NOA PRYOR ([id number])[facility] ([facility])[address] [place] [address] GLOMERULAR FILTRATION RATE ML/MIN/1.73 SQ M.PREDICTED 63.4 mL/min/1.73m*2 Normal >60.0 [facility] Comment on above: Result Comment: Calc ulation based on the Chronic Kidney Disease Epidemiology Collaboration (CKD-EPI) equation refit without adjustment for race Performed By: #### Claribel BLISS, [id number] ####Fisher Mussel: NOA PRYOR ([id number])[facility])[address] [place] [address] Glucose [Mass/Vol] 164 mg/dL High 82-115 [facility] Comment on above: Performed By: #### Claribel BLISS, [id number] ####Fisher Mussel: NOA PRYOR ([id number])[facility])[address] [place] [address] Potassium [Moles/Vol] 4.6 mmol/L Normal 3.5-5.1 [facility] Comment on above: Result Comment: [facility] potassium values may be up to 0.5 mmol/L lower than serum values. Performed By: #### Claribel BLISS, [id number] ####Fisher Mussel: NOA PRYOR ([id number])[address] Protein [Mass/Vol] 7.0 g/dL Normal 6.4-8.3 [facility] Comment on above: Performed By: #### Claribel BLISS, [id number] ####Fisher Mussel: NOA PRYOR ([id number])[facility])[address] [place] [address] [place] Sodium [Moles/Vol] 138 mmol/L Normal 136-145 [facility] Comment on above: Performed By: #### Claribel BLISS, [id number] ####Fisher Mussel: NOA PRYOR ([phone])[address] Urea nitrogen [Mass/Vol] 12 mg/dL Normal 9-23 [facility] Comment on above: Performed By: #### Claribel BLISS, [id number] ####Fisher Mussel: NOA PRYOR ([id number])[facility] ([facility])[address] [place] [address] CT ABDOMEN PELVIS W CONTRAST on 06-28-2025 CT ABDOMEN PELVIS W CONTRAST Normal [facility] CT Abdomen and Pelvis W cont rast Hunter 06-28-2025 1. Diffuse bladder w all thickening. Recommend correlation with urinalysis. 2. Colonic diverticulosis. 3. Atherosclerotic changes, as detailed above. Report Dictated on Electronically Signed By: Dolores Castro MD Electronically Signed Date/Time: 06/28/2025 4:37 PM [facility] RADIOLOGY SYSTEM [facility] 1945 [id number] Exam Date/Time: 06/28/2025 16:07 Procedure: CT ABDOMEN PELVIS W CONTRAST Ordering Provider: AMBROSE MICHAEL Reason For Exam: Abdominal pain, acute, nonlocalized EXAM: CT Abdomen and Pelvis With Intravenous Contrast CLINICAL INDICATION: Abdominal pain, acute, nonlocalized TECHNIQUE: Axial computed tomography images of the abdomen and pelvis with intravenous contrast. This CT exam was performed using one or more of the following dose reduction techniques: automated exposure control, adjustment of the mA and/or kV according to patient size, and/or use of iterative reconstruction technique. COMPARISON: CT abdomen pelvis from 06/05/2025 FINDINGS: LUNG BASES: Calcified left lower lobe granulomas. Interstitial scarring in the lung bases. No consolidation. HEART: Mild cardiomegaly. Aortic valve and mitral annulus calcification. Mild coronary artery calcifications within the [id number]. ABDOMEN: LIVER: Unremarkable. No significant intrahepatic ductal dilatation. Liver is smooth in contour. GALLBLADDER AND BILE DUCTS: Cholecystectomy. Mild prominence of the extrahepatic duct, which appears essentially unchanged since prior. This likely reflects dynamic changes following cholecystectomy. PANCREAS: Diffuse pancreatic parenchymal atrophy. No abnormal pancreatic ductal dilatation. SPLEEN: Unremarkable. No splenomegaly. ADRENALS: Redemonstration of a hypodense right adrenal lesion, measuring 13 mm, compatible with a benign adenoma. Benign fat density 13 mm right adrenal myelolipoma. No follow-up imaging is recommended. KIDNEYS AND URETERS: Simple renal cortical cysts, measuring up to 18 mm. Subcentimeter renal cortical hypodensities are too small to definitively characterize, but likely represent cysts. No follow-up imaging is recommended. No hydronephrosis. STOMACH AND BOWEL: No bowel obstruction. No bowel wall pneumatosis. Colonic diverticulosis. No evidence of acute diverticulitis. PELVIS: APPENDIX: Normal appendix. BLADDER: Diffuse bladder wall thickening. Evaluation of the urinary bladder is limited by metallic artifact. REPRODUCTIVE: Apparent hysterectomy. ABDOMEN and PELVIS: INTRAPERITONEAL SPACE: Unremarkable. No free air. No significant fluid collection. BONES/JOINTS: Degenerative change of the spine. Right posterior rib fixation hardware. Chronic rib fractures. 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 Chronic L5 vertebral body compression fracture. SOFT TISSUES: Bilateral gluteal muscle atrophy. VASCULATURE: Moderate to advanced atherosclerotic changes within the abdomen/pelvis. There appears to be severe stenosis versus occlusion of the proximal superficial femoral arteries bilaterally, similar to prior. LYMPH NODES: Unremarkable. No enlarged lymph nodes. [facility] RADIOLOGY SYSTEM Dolores Castro M D - 06/28/2025 Patient Name: BEVERLY AGEE [facility] 1945 [id number] Exam Date/Time: 06/28/2025 16:07 Procedure: CT ABDOMEN PELVIS W CONTRAST Ordering Provider: AMBROSE MICHAEL Reason For Exam: Abdominal pain, acute, nonlocalized EXAM: CT Abdomen and Pelvis With Intravenous Contrast CLINICAL INDICATION: Abdominal pain, acute, nonlocalized TECHNIQUE: Axial computed tomography images of the abdomen and pelvis with intravenous contrast. This CT exam was performed using one or more of the following dose reduction techniques: automated exposure control, adjustment of the mA and/or kV according to patient size, and/or use of iterative reconstruction technique. COMPARISON: CT abdomen pelvis from 06/05/2025 FINDINGS: LUNG BASES: Calcified left lower lobe granulomas. Interstitial scarring in the lung bases. No consolidation. HEART: Mild cardiomegaly. Aortic valve and mitral annulus calcification. Mild coronary artery calcifications within the [id number]. ABDOMEN: LIVER: Unremarkable. No significant intrahepatic ductal dilatation. Liver is smooth in contour. GALLBLADDER AND BILE DUCTS: Cholecystectomy. Mild prominence of the extrahepatic duct, which appears essentially unchanged since prior. This likely reflects dynamic changes following cholecystectomy. PANCREAS: Diffuse pancreatic parenchymal atrophy. No abnormal pancreatic ductal dilatation. SPLEEN: Unremarkable. No splenomegaly. ADRENALS: Redemonstration of a hypodense right adrenal lesion, measuring 13 mm, compatible with a benign adenoma. Benign fat density 13 mm right adrenal myelolipoma. No follow-up imaging is recommended. KIDNEYS AND URETERS: Simple renal cortical cysts, measuring up to 18 mm. Subcentimeter renal cortical hypodensities are too small to definitively characterize, but likely represent cysts. No follow-up imaging is recommended. No hydronephrosis. STOMACH AND BOWEL: No bowel obstruction. No bowel wall pneumatosis. Colonic diverticulosis. No evidence of acute diverticulitis. PELVIS: APPENDIX: Normal appendix. BLADDER: Diffuse bladder wall thickening. Evaluation of the urinary bladder is limited by metallic artifact. REPRODUCTIVE: Apparent hysterectomy. ABDOMEN and PELVIS: INTRAPERITONEAL SPACE: Unremarkable. No free air. No significant fluid collection. BONES/JOINTS: Degenerative change of the spine. Right posterior rib fixation hardware. Chronic rib fractures. 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 Chronic L5 vertebral body compression fracture. SOFT TISSUES: Bilateral gluteal muscle atrophy. VASCULATURE: Moderate to advanced atherosclerotic changes within the abdomen/pelvis. There appears to be severe stenosis versus occlusion of the proximal superficial femoral arteries bilaterally, similar to prior. LYMPH NODES: Unremarkable. No enlarged lymph nodes. IMPRESSION: 1. Diffuse bladder wall thickening. Recommend correlation with urinalysis. 2. Colonic diverticulosis. 3. Atherosclerotic changes, as detailed above. Report Dictated on Electronically Signed By: Dolores Castro MD Electronically Signed Date/Time: 06/28/2025 4:37 PM [facility] CT HEAD WO IV CONTRASTon CT HEAD WO IV CONTRAST Normal [facility] CT Head WO contraston 2024 1. No acute intracranial findings. 2. Probable chronic ischemic and atrophic changes. Report Dictated on Electronically Signed By: Floyd Nelson MD Electronically Signed Date/Time: 06/28/2025 4:19 PM [facility] Pulmonx SYSTEM Patient Name: BEVERLY SEE : 1945 Exam Date/Time: 06/28/2025 16:07 Procedure: CT HEAD WO IV CONTRAST Ordering Provider: AMBROSE MICHAEL Reason For Exam: AMS CT BRAIN WITHOUT CONTRAST CLINICAL INDICATION: AMS TECHNIQUE: CT scan of the brain without IV contrast. Multiplanar reformations. Dose reduction was employed with automated exposure control. COMPARISON: May,. FINDINGS: No apparent mass or mass effect, hemorrhage, midline shift or hydrocephalus. No evidence of acute cortical infarct. No abnormal, extra-axial fluid or air collection. Patchy low density in the periventricular and subcortical white matter is nonspecific, but may relate to chronic small vessel ischemic change. 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 Moderate, diffuse volume loss. Osseous calvarium grossly intact. [facility] Floyd Nelson MD - 06/28/2025 Patient Name: BEVERLY AGEE : 1945 [id number] Exam Date/Time: 06/28/2025 16:07 Procedure: CT HEAD WO IV CONTRAST Ordering Provider: AMBROSE MICHAEL Reason For Exam: AMS CT BRAIN WITHOUT CONTRAST CLINICAL INDICATION: AMS TECHNIQUE: CT scan of the brain without IV contrast. Multiplanar reformations. Dose reduction was employed with automated exposure control. COMPARISON: May,. FINDINGS: No apparent mass or mass effect, hemorrhage, midline shift or hydrocephalus. No evidence of acute cortical infarct. No abnormal, extra-axial fluid or air collection. Patchy low density in the periventricular and subcortical white matter is nonspecific, but may relate to chronic small vessel ischemic change. 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 Moderate, diffuse volume loss. Osseous calvarium grossly intact. IMPRESSION: 1. No acute intracranial findings. 2. Probable chronic ischemic and atrophic changes. Report Dictated on Electronically Signed By: Floyd Nelson MD Electronically Signed Date/Time: 06/28/2025 4:[address] [employer] [address] Head WO contrastOrdered B y: Floyd Nelson on 06-28-2025 [employer] Work Phone: Comprehensive metabolic 1998 panelon 06-28-2025 Albumin [Mass/Vol] 3.7 g/dL 3.1 - 4.5 g/dL [facility] ALP [Catalytic activity/Vol] 59 U/L 40 - 150 U/L [facility] ALT [Catalytic activity/Vol] U/L NINF - 30 U/L [facility] Anion gap [Moles/Vol] 10 mmol/L 3 - 13 mmol/L [facility] AST [Catalytic activity/Vol] 15 U/L NINF - 34 U/L [facility] Bilirubin [Mass/Vol] 0.5 mg/dL NINF - 1.2 mg/dL [facility] Calcium [Mass/Vol] 10.1 mg/dL High 8.8 - 10. 0 mg/dL [facility] Chloride [Moles/Vol] 104 mmol/L 98 - 10 7 mmol/L [facility] CO2 [Moles/Vol] 24 mmol/L 23 - 31 mmol/L [facility] Creatinine [Mass/Vol] 0.93 mg/dL 0.58 - 1.12 mg/dL [facility] GFR/1.73 sq M.predicted (S/P/Bld) [Vol rate/Area] 63.4 mL/min - PINF [facility] Comment on above: Calculation based on the Chronic Kidney Disease Epidemiology Collaboration (CKD-EPI) equation refit without adjustment for race Glucose [Mass/Vol] 164 mg/dL High 82 - 115 mg/dL [facility] Interpretation and review of laboratory results Abnormal [facility] Potassium [Moles/Vol] 4.6 mmol/L 3.5 - 5.1 mmol/L [facility] Comment on above: Plasma potassium ayesha ues may be up to 0.5 mmol/L lower than serum values. Protein [Mass/Vol] 7 g/dL 6.4 - 8.3 g/dL [facility] Sodium [Moles/Vol] 138 mmol/L 136 - 145 mmol/L [facility] Urea nitrogen [Mass/Vol] 12 mg/dL 9 - 23 mg/dL [facility] ED Nursing Noteon 06-28-2025 ED Nursing Note Normal [facility] ED Nursing Note Pt's saturated brief removed. Placed on a purwick after it was explained to pt and pt agreeable to it. Normal [facility] ED Provider Noteon ED Provider Note Normal [facility] HIGH SENSITIVITY TROPONIN, S ERIAL BASELINEon 06-28-2025 TROPONIN HS SERIAL BASELINE <3 Normal <=14 [facility] Comment on above: Result Comment: In i ndividuals presenting with symptoms > 2h, a baseline troponin <= 5 ng/L suggests acutecardiac injury is unlikely and further serial testing is generally not indicated. Performed By: #### L AB17, [id number] ####Fisher Mussel: NOA PRYOR ([phone])[facility] ([facility] [place] [address] HIGH SENSITIVITY TROPONIN, S ERIAL, SECOND TESTon 06-28-2025 2H TROPONIN HS (SERIAL 2ND TROPONIN) <3 Normal <=14 [facility] Comment on above: Result Comment: Delt a value was unable to be calculated as both baseline and serial troponin tests were below the level of quantitation. As both baseline and 2h troponin values are below the level of quantitation, acute cardiac injury is unlikely. Performed By: #### L [id number] ####Fisher Mussel: NOA PRYOR ([phone])[facility] ([facility])[address] [place] [address] LACTIC ACID WITH REFLEXon Lactate [Moles/Vol] 1.3 mmol/L Normal 0.5-2.2 [facility] Comment on above: Performed By: #### L [id number] ####Fisher Mussel: NOA PRYOR ([phone])[facility] ([facility])[address] [place] [address] Laboratory - Chemistry and C hemistry - challengeon 06-28-2025 Glucose [Mass/Vol] 137 mg/dL High 70 - 100 mg/dL [facility] Lactate [Moles/Vol] 1.3 mmol/L 0.5 - 2. 2 mmol/L [facility] No Panel Informationon 06-28 Interpretation and review of laboratory results Abnormal [facility] Performed by: [place] [address] CLIA ID: [id number] [facility] 2h Troponin HS (Serial 2nd Troponin) ng/L NINF - 14 ng/L [facility] Comment on above: Delta value was unab le to be calculated as both baseline and serial troponin tests were below the level of quantitation. As both baseline and 2h troponin values are below the level of quantitation, acute cardiac injury is unlikely. Interpretation and review of laboratory results Normal [facility] Radiology Study observation (narrative) [facility] sam Interpretation and review of laboratory results Normal [facility] Troponin HS Serial Baseline ng/L NINF - 14 ng/L [facility] Comment on above: In individuals prese nting with symptoms > 2h, a baseline troponin <= 5 ng/L suggests acute cardiac injury is unlikely and further serial testing is generally not indicated. [facility] Interpretation and review of laboratory results Normal [facility] URINE CULTUREon 06-28-2025 Bacteria identified Cx Nom (U) Normal [facility] Comment on above: Performed By: #### L AB239, [id number] ####Fisher Mussel: NOA PRYOR ([phone])[facility] ([address] Urinalysis complete panel (U )Ordered By: Radha Santizo on 06-28-2025 Bacteria LM.HPF (Urine sed) [#/Area] Few Abnormal Negative /HPF [facility] Bilirubin Ql (U) Negative Negative mg/dL [facility] Clarity (U) Extra Turbid Abnormal [facility] Yellow Lt. Yellow [facility] Epithelial cells.squamous LM.HPF (Urine sed) [#/Area] 0-2 [facility] Glucose Ql (U) Normal Normal (<70) mg/dL [facility] Hemoglobin Ql (U) 0.06 mg/dL Abnormal Negative [facility] Hyaline casts Auto (Urine sed) [#/Area] Negative Negative /LPF [facility] Interpretation and review of laboratory results Abnormal [facility] Ketones (U) [Mass/Vol] Negative Negat estrella mg/dL [facility] Leukocyte clumps LM.HPF (Urine sed) [#/Area] Many Abnormal Negative /HPF [facility] Leukocyte esterase Test strip Ql (U) 500 Abnormal Negative Veronica/uL [facility] Nitrite Ql (U) Positive Abnormal Negative [facility] Non-Squamous Epithalial Cells, Urine 0-2 Abnormal Negative /HPF [facility] pH (U) 8.0 [pH] 5.0 - 8.0 pH [facility] Protein (U) [Mass/Vol] 30 mg/dL Abnormal Negative [facility] RBC LM.HPF (Urine sed) [#/Area] 11-25 Abnormal [facility] Specific gravity (U) [Rel density] 1.013 1.005 - 1.030 [facility] Urobilinogen (U) [Mass/Vol] Normal Normal (0-1) mg/dL [facility] WBC LM.HPF (Urine sed) [#/Area] /[HPF] Abnormal [facility] This specimen has be en reflexed to urine culture. [facility] XR Chest Single viewon 06-28 No acute cardiopulmonary abnormality. Stable mild prominence of the cardiac silhouette. Report Dictated on Electronically Signed By: Dolores Castro MD Electronically Signed Date/Time: 06/28/2025 3:16 PM [facility] Pulmonx SYSTEM Patient Name: BEVERLY SEE : 1945 Exam Date/Time: 06/28/2025 15:07 Procedure: XR CHEST 1 VIEW Ordering Provider: AMBROSE MICHAEL Reason For Exam: sob EXAM: XR Chest, 1 View CLINICAL INDICATION: sob TECHNIQUE: Frontal view of the chest. COMPARISON: Chest radiograph from 06/05/2025 FINDINGS: LUNGS AND PLEURAL SPACES: Mild interstitial scarring. No consolidation. No pneumothorax. HEART: Stable mild prominence of the cardiac silhouette. MEDIASTINUM: Unremarkable. Normal mediastinal contour. BONES/JOINTS: Fixation hardware associated with 2 of the right ribs. Degenerative change of the spine. Left acromioclavicular and bilateral glenohumeral joint DJD. Chronic rib fractures. VASCULATURE: Calcification of the thoracic aorta. [facility] Dolores Castro M D - 06/28/2025 Patient Name: BEVERLY AGEE : 1945 Exam Date/Time: 06/28/2025 15:07 Procedure: XR CHEST 1 VIEW Ordering Provider: AMBROSE MICHAEL Reason For Exam: sob EXAM: XR Chest, 1 View CLINICAL INDICATION: sob TECHNIQUE: Frontal view of the chest. COMPARISON: Chest radiograph from 06/05/2025 FINDINGS: LUNGS AND PLEURAL SPACES: Mild interstitial scarring. No consolidation. No pneumothorax. HEART: Stable mild prominence of the cardiac silhouette. MEDIASTINUM: Unremarkable. Normal mediastinal contour. BONES/JOINTS: Fixation hardware associated with 2 of the right ribs. Degenerative change of the spine. Left acromioclavicular and bilateral glenohumeral joint DJD. Chronic rib fractures. VASCULATURE: Calcification of the thoracic aorta. IMPRESSION: No acute cardiopulmonary abnormality. Stable mild prominence of the cardiac silhouette. Report Dictated on Electronically Signed By: Dolores Castro MD Electronically Signed Date/Time: 06/28/2025 3:16 PM EST [facility] Radiology Study observation (narrative) [facility] XR Chest Single viewOrdered By: Dolores Castro on 06-28-2025 [facility] 36on 06-26-2025 36 Normal [facility] 36on 06-24-2025 36 Normal [facility] 36on 06-23-2025 36 Normal [facility] 36on 06-18-2025 36 Faxed form to Dayna at [employer]. Normal [facility] 36 Normal [facility] 36on 06-17-2025 36 Normal [facility] [id number] 06-11-2025 [id number] Patient Choice Patient Name: BEVERLY AGEE Date of : 1945 [facility] [id number] 06-09-2025 [id number] Social Work [id number] completed in [place]. Notified TCC and facility via [employer]. [facility] [id number] [facility] [id number] Prison/SNF - [address] [facility] [phone] Patient/Family Choice [facility] [id number] Discharge med list transmitted to [facility] via [employer] per TCC request. [facility] [phone] Transport arranged f or 2pm to [facility] [facility]. Called and updated son/HPOA Charbel- agreeable. Phys, pt and bedside RN updated. [facility] [id number] [facility] [id number] [facility] CBC (HEMOGRAM)on 06-09-2025 Erythrocyte distribution width (RBC) [Ratio] 12.6 % Normal 11.5-15.0 [facility] Comment on above: Performed By: #### L [id number] ####Fisher Mussel: NOA PRYOR ([id number])[address] Hematocrit (Bld) [Volume fraction] 39.0 % Normal 35.0-47.0 [facility] Comment on above: Performed By: #### L AB294 ####Fisher Mussel: NOA PRYOR ([id number])[address] Hemoglobin (Bld) [Mass/Vol] 13.0 g/dL Normal 11.7-16.0 [facility] Comment on above: Performed By: #### L AB294 ####Fisher Mussel: NOA PRYOR ([id number])[address] MCH (RBC) [Entitic mass] 29.6 pg Normal 26.0-34.0 [facility] Comment on above: Performed By: #### L AB294 ####Fisher Mussel: NOA PRYOR ([id number])[address] MCHC 33.3 % Normal 30.5-36.0 [facility] Comment on above: Performed By: #### L AB294 ####Fisher Mussel: NOA PRYOR ([phone])[facility] ([facility])[address] [place] [address] MCV (RBC) [Entitic vol] 88.8 fL Normal 77.0-99.0 S [facility] Comment on above: Performed By: #### L AB294 ####Fisher Mussel: NOA PRYOR ([phone])[facility] ([facility])[address] [place] [address] Platelet mean volume (Bld) [Entitic vol] 9.4 fL Normal 9.0-12.7 [facility] Comment on above: Performed By: #### L AB294 ####Fisher Mussel: NOA PRYOR ([phone])[facility] ([facility])[address] [place] [address] Platelets (Bld) [#/Vol] 242 10*3/uL Normal 140-440 [facility] Comment on above: Performed By: #### L AB294 ####Fisher Mussel: NOA PRYOR ([phone])[facility] ([facility])[address] [place] [address] RBC (Bld) [#/Vol] 4.39 10*6/uL Normal 3.80-5.20 [facility] Comment on above: Performed By: #### L AB294 ####Fisher Mussel: NOA PRYOR ([phone])[facility] ([facility])[address] [place] [address] WBC (Bld) [#/Vol] 8.8 10*3/uL Normal 3.6-10.7 [facility] Comment on above: Performed By: #### L [id number] ####Fisher Mussel: NOA PRYOR ([phone])[facility])[address] [place] [address] CBC panel Auto (Bld)on 06-09 Erythrocyte distribution width (RBC) [Ratio] 12.6 % 11.5 - 15.0 % [facility] Hematocrit (Bld) [Volume fraction] 39 % 35.0 - 47.0 % [facility] Hemoglobin (Bld) [Mass/Vol] 13 g/dL 11.7 - 16.0 g/dL [facility] Interpretation and review of laboratory results Normal [facility] MCH (RBC) [Entitic mass] 29.6 pg 26.0 - 34.0 pg [facility] MCHC (RBC) [Mass/Vol] 33.3 % 30.5 - 36.0 % [facility] MCV (RBC) [Entitic vol] 88.8 fL 77.0 - 99.0 fL [facility] Platelet mean volume (Bld) [Entitic vol] 9.4 fL 9.0 - 12.7 fL [facility] Platelets (Bld) [#/Vol] 242 10*3/uL 140 - 440 10*3/uL [facility] RBC (Bld) [#/Vol] 4.39 10*6/uL 3.80 - 5.2 0 10*6/uL [facility] WBC (Bld) [#/Vol] 8.8 10*3/uL 3.6 - 10.7 10*3/uL [facility] COMPREHENSIVE METABOLIC PANE Satnam 06-09-2025 Albumin [Mass/Vol] 3.0 g/dL Low 3.4-4.8 [facility] Comment on above: Performed By: #### L AB17 ####Fisher Mussel: NOA PRYOR ([phone])[facility])[address] [place] [address] ALP [Catalytic activity/Vol] 39 U/L Low 40-150 [facility] Comment on above: Performed By: #### L AB17 ####Fisher Mussel: NOA PRYOR ([phone])[facility] [place] ([facility])[address] [place] [address] ALT [Catalytic activity/Vol] 6 U/L Normal <30 [facility] Comment on above: Performed By: #### L AB17 ####Fisher Mussel: NOA PRYOR ([id number])[facility] [place] ([facility])[address] [place] [address] Anion gap [Moles/Vol] 7 mmol/L Normal 3-13 [facility] Comment on above: Performed By: #### L AB17 ####Fisher Mussel: NOA PRYOR ([phone])[facility] [place] ([facility])[address] [place] [address] AST [Catalytic activity/Vol] 19 U/L Normal <34 [facility] Comment on above: Performed By: #### L AB17 ####Fisher Mussel: NOA PRYOR ([id number])[facility] [place] ([facility])[address] [place] [address] Bilirubin [Mass/Vol] 0.3 mg/dL Normal <1.2 [facility] Comment on above: Performed By: #### L AB17 ####Fisher Mussel: NOA PRYOR ([phone])[facility] [place] ([facility])[address] [place] [address] Calcium [Mass/Vol] 9.8 mg/dL Normal 8.8-10.0 [facility] Comment on above: Performed By: #### L AB17 ####Fisher Mussel: NOA PRYOR ([phone])[facility] [place] [facility])[address] [place] [address] [place] Chloride [Moles/Vol] 107 mmol/L Normal 98-107 [facility] Comment on above: Performed By: #### L AB17 ####Fisher Mussel: NOA PRYOR ([phone])[facility] [place] ([facility])[address] [place] [address] [place] CO2 [Moles/Vol] 24 mmol/L Normal 23-31 [facility] Comment on above: Performed By: #### L AB17 ####Fisher Mussel: NOA PRYOR ([id number])[facility] [place] ([facility])[address] [place] [address] [place] Creatinine [Mass/Vol] 0.79 mg/dL Normal 0.57-1.11 [facility] Comment on above: Performed By: #### L AB17 ####Fisher Mussel: NOA PRYOR ([phone])[facility] [place] ([facility])[address] [place] [address] GLOMERULAR FILTRATION RATE ML/MIN/1.73 SQ M.PREDICTED 77.2 mL/min/1.73m*2 Normal >60.0 [facility] Comment on above: Result Comment: Calc ulation based on the Chronic Kidney Disease Epidemiology Collaboration (CKD-EPI) equation refit without adjustment for race Performed By: #### L AB17 ####Fisher Mussel: NOA PRYOR ([id number])[facility])[address] [place] [address] Glucose [Mass/Vol] 110 mg/dL Normal 82-115 [facility] Comment on above: Performed By: #### L AB17 ####Fisher Mussel: NOA PRYOR ([phone])[address] Potassium [Moles/Vol] 4.2 mmol/L Normal 3.5-5.1 [facility] Comment on above: Result Comment: [facility] potassium values may be up to 0.5 mmol/L lower than serum values. Performed By: #### L AB17 ####Fisher Mussel: NOA PRYOR ([id number])[address] Protein [Mass/Vol] 5.8 g/dL Low 6.4-8.3 [facility] Comment on above: Performed By: #### L AB17 ####Fisher Mussel: NOA PRYOR ([id number])[place] [address] [place] Sodium [Moles/Vol] 138 mmol/L Normal 136-145 [facility] Comment on above: Performed By: #### L AB17 ####Fisher Mussel: NOA PRYOR ([id number])[address] Urea nitrogen [Mass/Vol] 19 mg/dL Normal 9-23 [facility] Comment on above: Performed By: #### L AB17 ####Fisher Mussel: NOA PRYOR ([phone])[facility] ([facility])[address] [place] [address] Comprehensive metabolic 1998 panelon 06-09-2025 Albumin [Mass/Vol] 3 g/dL Low 3.4 - 4.8 g/dL [facility] ALP [Catalytic activity/Vol] 39 U/L Low 40 - 150 U/L [facility] ALT [Catalytic activity/Vol] 6 U/L NINF - 30 U/L [facility] Anion gap [Moles/Vol] 7 mmol/L 3 - 13 mmol/L [facility] AST [Catalytic activity/Vol] 19 U/L NINF - 34 U/L [facility] Bilirubin [Mass/Vol] 0.3 mg/dL NINF - 1.2 mg/dL [facility] Calcium [Mass/Vol] 9.8 mg/dL 8.8 - 10. 0 mg/dL [facility] Chloride [Moles/Vol] 107 mmol/L 98 - 10 7 mmol/L [facility] CO2 [Moles/Vol] 24 mmol/L 23 - 31 mmol/L [facility] Creatinine [Mass/Vol] 0.79 mg/dL 0.57 - 1.11 mg/dL [facility] GFR/1.73 sq M.predicted (S/P/Bld) [Vol rate/Area] 77.2 mL/min - PINF [facility] Comment on above: Calculation based on the Chronic Kidney Disease Epidemiology Collaboration (CKD-EPI) equation refit without adjustment for race Glucose [Mass/Vol] 110 mg/dL 82 - 115 mg/dL [facility] Interpretation and review of laboratory results Abnormal [facility] Potassium [Moles/Vol] 4.2 mmol/L 3.5 - 5.1 mmol/L [facility] Comment on above: Plasma potassium ayesha ues may be up to 0.5 mmol/L lower than serum values. Protein [Mass/Vol] 5.8 g/dL Low 6.4 - 8.3 g/dL [facility] Sodium [Moles/Vol] 138 mmol/L 136 - 145 mmol/L [facility] Urea nitrogen [Mass/Vol] 19 mg/dL 9 - 23 mg/dL [facility] Laboratory - Chemistry and C hemistry - challengeon 06-09-2025 Glucose [Mass/Vol] 153 mg/dL High 70 - 100 mg/dL [facility] Glucose [Mass/Vol] 134 mg/dL High 70 - 100 mg/dL [facility] No Panel Informationon 06-09 Interpretation and review of laboratory results Abnormal [facility] Performed by: [facility], [address] [place] [address] CLIA ID: [id number] [facility] Interpretation and review of laboratory results Abnormal [facility] Performed by: [facility], [address] [place] [address] CLIA ID: [id number] [facility] Nursing Noteon 06-09-2025 Nursing Note Called report to [facility]. Ivs taken out. Tele taken off. Belongings gathered by nurse. Transport here to transport pt to new facility. Normal [facility] Progress Noteon 06-09-2025 Progress Note Normal [facility] [id number] 06-08-2025 [id number] Normal [facility] CBC (HEMOGRAM)on 06-08-2025 Erythrocyte distribution width (RBC) [Ratio] 12.8 % Normal 11.5-15.0 [facility] Comment on above: Performed By: #### L [id number] ####Fisher Mussel: NOA PRYOR ([id number])[address] Hematocrit (Bld) [Volume fraction] 37.7 % Normal 35.0-47.0 [facility] Comment on above: Performed By: #### L [id number] ####Fisher Mussel: NOA PRYOR ([id number])[facility])[address] [place] [address] Hemoglobin (Bld) [Mass/Vol] 12.5 g/dL Normal 11.7-16.0 [facility] Comment on above: Performed By: #### L [id number] ####Fisher Mussel: NOA PRYOR ([id number])[facility])[address] [place] [address] MCH (RBC) [Entitic mass] 29.4 pg Normal 26.0-34.0 [facility] Comment on above: Performed By: #### L [id number] ####Fisher Mussel: NOA PRYOR ([id number])[facility] ([facility])[address] [place] [address] MCHC 33.2 % Normal 30.5-36.0 [facility] Comment on above: Performed By: #### L [id number] ####Fisher Mussel: NOA PRYOR ([id number])[facility] ([facility])[address] [place] [address] MCV (RBC) [Entitic vol] 88.7 fL Normal 77.0-99.0 S [facility] Comment on above: Performed By: #### L [id number] ####Fisher Mussel: NOA PRYOR ([id number])[facility])[address] [place] [address] Platelet mean volume (Bld) [Entitic vol] 9.4 fL Normal 9.0-12.7 [facility] Comment on above: Performed By: #### L [id number] ####Fisher Mussel: NOA PRYOR ([id number])[facility] ([facility])[address] [place] [address] [place] Platelets (Bld) [#/Vol] 229 10*3/uL Normal 140-440 [facility] Comment on above: Performed By: #### L [id number] ####Fisher Mussel: NOA PRYOR ([phone])[facility])[address] [place] [address] RBC (Bld) [#/Vol] 4.25 10*6/uL Normal 3.80-5.20 [facility] Comment on above: Performed By: #### L [id number] ####Fisher Mussel: NOA PRYOR ([id number])[facility] ([facility])[address] [place] [address] [place] WBC (Bld) [#/Vol] 8.5 10*3/uL Normal 3.6-10.7 [facility] Comment on above: Performed By: #### L [id number] ####Fisher Mussel: NOA PRYOR ([id number])[facility] ([facility])[address] [place] [address] CBC panel Auto (Bld)on 06-08 Erythrocyte distribution width (RBC) [Ratio] 12.8 % 11.5 - 15.0 % [facility] Hematocrit (Bld) [Volume fraction] 37.7 % 35.0 - 47.0 % [facility] Hemoglobin (Bld) [Mass/Vol] 12.5 g/dL 11.7 - 16.0 g/dL [facility] Interpretation and review of laboratory results Normal [facility] MCH (RBC) [Entitic mass] 29.4 pg 26.0 - 34.0 pg [facility] MCHC (RBC) [Mass/Vol] 33.2 % 30.5 - 36.0 % [facility] MCV (RBC) [Entitic vol] 88.7 fL 77.0 - 99.0 fL [facility] Platelet mean volume (Bld) [Entitic vol] 9.4 fL 9.0 - 12.7 fL [facility] Platelets (Bld) [#/Vol] 229 10*3/uL 140 - 440 10*3/uL [facility] RBC (Bld) [#/Vol] 4.25 10*6/uL 3.80 - 5.2 0 10*6/uL [facility] WBC (Bld) [#/Vol] 8.5 10*3/uL 3.6 - 10.7 10*3/uL [facility] COMPREHENSIVE METABOLIC PANE Satnam 06-08-2025 Albumin [Mass/Vol] 2.9 g/dL Low 3.4-4.8 [facility] Comment on above: Performed By: #### L AB17 ####Fisher Mussel: NOA PRYOR ([phone])[facility])[address] [place] [address] ALP [Catalytic activity/Vol] 40 U/L Normal 40-150 [facility] Comment on above: Performed By: #### L AB17 ####Fisher Mussel: NOA PRYOR ([id number])[facility] [facility])[address] [place] [address] ALT [Catalytic activity/Vol] U/L Normal <30 [facility] Comment on above: Performed By: #### L AB17 ####Fisher Mussel: NOA PRYOR ([phone])[facility] [place] [facility])[address] [place] [address] Anion gap [Moles/Vol] 6 mmol/L Normal 3-13 [facility] Comment on above: Performed By: #### L AB17 ####Fisher Mussel: NOA PRYOR ([id number])[facility] [place] ([facility])[address] [place] [address] AST [Catalytic activity/Vol] 16 U/L Normal <34 [facility] Comment on above: Performed By: #### L AB17 ####Fisher Mussel: NOA PRYOR ([phone])[facility] ([facility])[address] [place] [address] Bilirubin [Mass/Vol] 0.3 mg/dL Normal <1.2 [facility] Comment on above: Performed By: #### L AB17 ####Fisher Mussel: NOA PRYOR ([id number])[facility] ([facility])[address] [place] [address] Calcium [Mass/Vol] 9.4 mg/dL Normal 8.8-10.0 [facility] Comment on above: Performed By: #### L AB17 ####Fisher Mussel: NOA PRYOR ([id number])[facility] [place] ([facility])[address] [place] [address] [place] Chloride [Moles/Vol] 107 mmol/L Normal 98-107 [facility] Comment on above: Performed By: #### L AB17 ####Fisher Mussel: NOA PRYOR ([phone])[facility] [place] [facility])[address] [place] [address] [place] CO2 [Moles/Vol] 26 mmol/L Normal 23-31 [facility] Comment on above: Performed By: #### L AB17 ####Fisher Mussel: NOA PRYOR ([phone])[facility] [place] [facility])[address] [place] [address] [place] Creatinine [Mass/Vol] 0.76 mg/dL Normal 0.57-1.11 [facility] Comment on above: Performed By: #### L AB17 ####Fisher Mussel: NOA PRYOR ([phone])[facility])[address] [place] [address] GLOMERULAR FILTRATION RATE ML/MIN/1.73 SQ M.PREDICTED 80.8 mL/min/1.73m*2 Normal >60.0 [facility] Comment on above: Result Comment: Calc ulation based on the Chronic Kidney Disease Epidemiology Collaboration (CKD-EPI) equation refit without adjustment for race Performed By: #### L AB17 ####Fisher Mussel: NOA PRYOR ([phone])[facility])[address] [place] [address] Glucose [Mass/Vol] 110 mg/dL Normal 82-115 [facility] Comment on above: Performed By: #### L AB17 ####Fisher Mussel: NOA PRYOR ([id number])[address] Potassium [Moles/Vol] 4.1 mmol/L Normal 3.5-5.1 [facility] Comment on above: Result Comment: [facility] potassium values may be up to 0.5 mmol/L lower than serum values. Performed By: #### L AB17 ####Fisher Mussel: NOA PRYOR ([phone])[address] Protein [Mass/Vol] 5.8 g/dL Low 6.4-8.3 [facility] Comment on above: Performed By: #### L AB17 ####Fisher Mussel: NOA PRYOR ([id number])[address] Sodium [Moles/Vol] 139 mmol/L Normal 136-145 [facility] Comment on above: Performed By: #### L AB17 ####Fisher Mussel: NOA PRYOR ([phone])[facility])[address] [place] [address] [place] Urea nitrogen [Mass/Vol] 18 mg/dL Normal 9-23 [facility] Comment on above: Performed By: #### L AB17 ####Fisher Mussel: NOA PRYOR ([phone])[facility] ([facility] Comprehensive metabolic 1998 panelon 06-08-2025 Albumin [Mass/Vol] 2.9 g/dL Low 3.4 - 4.8 g/dL [facility] ALP [Catalytic activity/Vol] 40 U/L 40 - 150 U/L [facility] ALT [Catalytic activity/Vol] U/L NINF - 30 U/L [facility] Anion gap [Moles/Vol] 6 mmol/L 3 - 13 mmol/L [facility] AST [Catalytic activity/Vol] 16 U/L NINF - 34 U/L [facility] Bilirubin [Mass/Vol] 0.3 mg/dL NINF - 1.2 mg/dL [facility] Calcium [Mass/Vol] 9.4 mg/dL 8.8 - 10. 0 mg/dL [facility] Chloride [Moles/Vol] 107 mmol/L 98 - 10 7 mmol/L [facility] CO2 [Moles/Vol] 26 mmol/L 23 - 31 mmol/L [facility] Creatinine [Mass/Vol] 0.76 mg/dL 0.57 - 1.11 mg/dL [facility] GFR/1.73 sq M.predicted (S/P/Bld) [Vol rate/Area] 80.8 mL/min - PINF [facility] Comment on above: Calculation based on the Chronic Kidney Disease Epidemiology Collaboration (CKD-EPI) equation refit without adjustment for race Glucose [Mass/Vol] 110 mg/dL 82 - 115 mg/dL [facility] Interpretation and review of laboratory results Abnormal [facility] Potassium [Moles/Vol] 4.1 mmol/L 3.5 - 5.1 mmol/L [facility] Comment on above: Plasma potassium ayesha ues may be up to 0.5 mmol/L lower than serum values. Protein [Mass/Vol] 5.8 g/dL Low 6.4 - 8.3 g/dL [facility] Sodium [Moles/Vol] 139 mmol/L 136 - 145 mmol/L [facility] Urea nitrogen [Mass/Vol] 18 mg/dL 9 - 23 mg/dL [facility] Laboratory - Chemistry and C hemistry - challengeon 06-08-2025 Glucose [Mass/Vol] 84 mg/dL 70 - 100 mg/dL [facility] Glucose [Mass/Vol] 168 mg/dL High 70 - 100 mg/dL [facility] Glucose [Mass/Vol] 219 mg/dL High 70 - 100 mg/dL [facility] Glucose [Mass/Vol] 226 mg/dL High 70 - 100 mg/dL [facility] Glucose [Mass/Vol] 124 mg/dL High 70 - 100 mg/dL [facility] No Panel Informationon 06-08 Interpretation and review of laboratory results Normal [facility] Performed by: [address] [address] CLIA ID: [id number] [facility] Interpretation and review of laboratory results Abnormal [facility] Performed by: [address] [address] CLIA ID: [id number] [facility] Interpretation and review of laboratory results Abnormal [facility] Performed by: [address] [address] CLIA ID: [id number] [facility] Interpretation and review of laboratory results Abnormal [facility] Performed by: [address] [address] CLIA ID: [id number] [facility] Interpretation and review of laboratory results Abnormal [facility] Performed by: [address] [address] CLIA ID: [id number] [facility] Progress Noteon 06-08-2025 Progress Note [facility] Bacteria identified Cx Nom ( U)Ordered By: Darrius Blue on 06-07-2025 Interpretation and review of laboratory results Abnormal [facility] CBC (HEMOGRAM)on 06-07-2025 Erythrocyte distribution width (RBC) [Ratio] 12.8 % Normal 11.5-15.0 [facility] Comment on above: Performed By: #### L [id number] ####Fisher Mussel: NOA PRYOR ([id number])[facility] ([facility])[address] [place] [address] Hematocrit (Bld) [Volume fraction] 36.1 % Normal 35.0-47.0 [facility] Comment on above: Performed By: #### L [id number] ####Fisher Mussel: NOA PRYOR ([phone])[facility])[address] [place] [address] Hemoglobin (Bld) [Mass/Vol] 12.1 g/dL Normal 11.7-16.0 [facility] Comment on above: Performed By: #### L [id number] ####Fisher Mussel: NOA PRYOR ([phone])[facility])[address] [place] [address] MCH (RBC) [Entitic mass] 30.0 pg Normal 26.0-34.0 [facility] Comment on above: Performed By: #### L [id number] ####Fisher Mussel: NOA PRYOR ([phone])[facility] ([facility])[address] [place] [address] MCHC 33.5 % Normal 30.5-36.0 [facility] Comment on above: Performed By: #### L [id number] ####Fisher Mussel: NOA PRYOR ([id number])[facility] ([facility])[address] [place] [address] MCV (RBC) [Entitic vol] 89.4 fL Normal 77.0-99.0 S [facility] Comment on above: Performed By: #### L [id number] ####Fisher Mussel: NOA PRYOR ([id number])[facility] ([facility])[address] [place] [address] Platelet mean volume (Bld) [Entitic vol] 9.8 fL Normal 9.0-12.7 [facility] Comment on above: Performed By: #### L [id number] ####Fisher Mussel: NOA PRYOR ([phone])[facility] ([facility])[address] [place] [address] Platelets (Bld) [#/Vol] 232 10*3/uL Normal 140-440 [facility] Comment on above: Performed By: #### L [id number] ####Fisher Mussel: NOA PRYOR ([id number])[facility])[address] [place] [address] RBC (Bld) [#/Vol] 4.04 10*6/uL Normal 3.80-5.20 [facility] Comment on above: Performed By: #### L [id number] ####Fisher Mussel: NOA PRYOR ([id number])[facility])[address] [place] [address] WBC (Bld) [#/Vol] 9.5 10*3/uL Normal 3.6-10.7 [facility] Comment on above: Performed By: #### L [id number] ####Fisher Mussel: NOA PRYOR ([id number])[facility])[address] [place] [address] CBC panel Auto (Bld)on 06-07 Erythrocyte distribution width (RBC) [Ratio] 12.8 % 11.5 - 15.0 % [facility] Hematocrit (Bld) [Volume fraction] 36.1 % 35.0 - 47.0 % [facility] Hemoglobin (Bld) [Mass/Vol] 12.1 g/dL 11.7 - 16.0 g/dL [facility] Interpretation and review of laboratory results Normal [facility] MCH (RBC) [Entitic mass] 30 pg 26.0 - 34.0 pg [facility] MCHC (RBC) [Mass/Vol] 33.5 % 30.5 - 36.0 % [facility] MCV (RBC) [Entitic vol] 89.4 fL 77.0 - 99.0 fL [facility] Platelet mean volume (Bld) [Entitic vol] 9.8 fL 9.0 - 12.7 fL [facility] Platelets (Bld) [#/Vol] 232 10*3/uL 140 - 440 10*3/uL [facility] RBC (Bld) [#/Vol] 4.04 10*6/uL 3.80 - 5.2 0 10*6/uL [facility] WBC (Bld) [#/Vol] 9.5 10*3/uL 3.6 - 10.7 10*3/uL [facility] COMPREHENSIVE METABOLIC PANE Satnam 06-07-2025 Albumin [Mass/Vol] 2.9 g/dL Low 3.4-4.8 [facility] Comment on above: Performed By: #### L [id number] ####Fisher Mussel: NOA PRYOR ([id number])[facility] ([facility])[address] [place] [address] ALP [Catalytic activity/Vol] 41 U/L Normal 40-150 [facility] Comment on above: Performed By: #### L [id number] ####Fisher Mussel: NOA PRYOR ([phone])[facility] ([facility])[address] [place] [address] ALT [Catalytic activity/Vol] U/L Normal <30 [facility] Comment on above: Performed By: #### L [id number] ####Fisher Mussel: NOA PRYOR ([id number])[facility] ([facility])[address] [place] [address] Anion gap [Moles/Vol] 6 mmol/L Normal 3-13 [facility] Comment on above: Performed By: #### L [id number] ####Fisher Mussel: NOA PRYOR ([id number])[facility] ([facility])[address] [place] [address] AST [Catalytic activity/Vol] 18 U/L Normal <34 [facility] Comment on above: Performed By: #### L [id number] ####Fisher Mussel: NOA PRYOR ([id number])[facility] ([facility])[address] [place] [address] [place] Bilirubin [Mass/Vol] 0.4 mg/dL Normal <1.2 [facility] Comment on above: Performed By: #### L [id number] ####Fisher Mussel: NOA PRYOR ([id number])[facility] ([facility])[address] [place] [address] Calcium [Mass/Vol] 9.3 mg/dL Normal 8.8-10.0 [facility] Comment on above: Performed By: #### L [id number] ####Fisher Mussel: NOA PRYOR ([id number])[facility] ([facility])[address] [place] [address] Chloride [Moles/Vol] 105 mmol/L Normal 98-107 [facility] Comment on above: Performed By: #### L [id number] ####Fisher Mussel: NOA PRYOR ([id number])[facility] ([facility])[address] [place] [address] CO2 [Moles/Vol] 25 mmol/L Normal 23-31 [facility] Comment on above: Performed By: #### L [id number] ####Fisher Mussel: NOA PRYOR ([id number])[facility])[address] [place] [address] Creatinine [Mass/Vol] 0.81 mg/dL Normal 0.57-1.11 [facility] Comment on above: Performed By: #### L [id number] ####Fisher Mussel: NOA PRYOR ([id number])[facility] ([facility])[address] [place] [address] [place] GLOMERULAR FILTRATION RATE ML/MIN/1.73 SQ M.PREDICTED 74.9 mL/min/1.73m*2 Normal >60.0 [facility] Comment on above: Result Comment: Calc ulation based on the Chronic Kidney Disease Epidemiology Collaboration (CKD-EPI) equation refit without adjustment for race Performed By: #### L [id number] ####Fisher Mussel: NOA PRYOR ([id number])[facility] ([facility])[address] [place] [address] [place] Glucose [Mass/Vol] 106 mg/dL Normal 82-115 [facility] Comment on above: Performed By: #### L [id number] ####Fisher Mussel: NOA PRYOR ([id number])[facility] [place] ([facility])[address] [place] [address] [place] Potassium [Moles/Vol] 4.1 mmol/L Normal 3.5-5.1 [facility] Comment on above: Result Comment: [facility] potassium values may be up to 0.5 mmol/L lower than serum values. Performed By: #### L [id number] ####Fisher Mussel: NOA PRYOR ([id number])[facility] ([facility])[address] [place] [address] Protein [Mass/Vol] 5.6 g/dL Low 6.4-8.3 [facility] Comment on above: Performed By: #### L [id number] ####Fisher Mussel: NOA PRYOR ([id number])[facility] [place] ([facility])[address] [place] [address] Sodium [Moles/Vol] 136 mmol/L Normal 136-145 [facility] Comment on above: Performed By: #### L [id number] ####Fisher Mussel: NOA PRYOR ([id number])[facility] [place] ([facility])[address] [place] [address] Urea nitrogen [Mass/Vol] 18 mg/dL Normal 9-23 [facility] Comment on above: Performed By: #### L [id number] ####Fisher Mussel: NOA PRYOR ([id number])[facility])[address] [place] [address] Comprehensive metabolic 1998 panelon 06-07-2025 Albumin [Mass/Vol] 2.9 g/dL Low 3.4 - 4.8 g/dL [facility] ALP [Catalytic activity/Vol] 41 U/L 40 - 150 U/L [facility] ALT [Catalytic activity/Vol] U/L NINF - 30 U/L [facility] Anion gap [Moles/Vol] 6 mmol/L 3 - 13 mmol/L [facility] AST [Catalytic activity/Vol] 18 U/L NINF - 34 U/L [facility] Bilirubin [Mass/Vol] 0.4 mg/dL NINF - 1.2 mg/dL [facility] Calcium [Mass/Vol] 9.3 mg/dL 8.8 - 10. 0 mg/dL [facility] Chloride [Moles/Vol] 105 mmol/L 98 - 10 7 mmol/L [facility] CO2 [Moles/Vol] 25 mmol/L 23 - 31 mmol/L [facility] Creatinine [Mass/Vol] 0.81 mg/dL 0.57 - 1.11 mg/dL [facility] GFR/1.73 sq M.predicted (S/P/Bld) [Vol rate/Area] 74.9 mL/min - PINF [facility] Comment on above: Calculation based on the Chronic Kidney Disease Epidemiology Collaboration (CKD-EPI) equation refit without adjustment for race Glucose [Mass/Vol] 106 mg/dL 82 - 115 mg/dL [facility] Interpretation and review of laboratory results Abnormal [facility] Potassium [Moles/Vol] 4.1 mmol/L 3.5 - 5.1 mmol/L [facility] Comment on above: Plasma potassium ayesha ues may be up to 0.5 mmol/L lower than serum values. Protein [Mass/Vol] 5.6 g/dL Low 6.4 - 8.3 g/dL [facility] Sodium [Moles/Vol] 136 mmol/L 136 - 145 mmol/L [facility] Urea nitrogen [Mass/Vol] 18 mg/dL 9 - 23 mg/dL [facility] Laboratory - Chemistry and C hemistry - challengeon 06-07-2025 Glucose [Mass/Vol] 139 mg/dL High 70 - 100 mg/dL [facility] Glucose [Mass/Vol] 212 mg/dL High 70 - 100 mg/dL [facility] Glucose [Mass/Vol] 177 mg/dL High 70 - 100 mg/dL [facility] Glucose [Mass/Vol] 166 mg/dL High 70 - 100 mg/dL [facility] Glucose [Mass/Vol] 120 mg/dL High 70 - 100 mg/dL [facility] Laboratory - Microbiology an d Antimicrobial susceptibilityOrdered By: Darrius Blue on 06-07-2025 Bacteria identified Cx Nom (U) Normal urogenital aly present [facility] Bacteria identified Cx Nom (U) >100,000 CFU/mL Escherichia coli Abnormal [facility] No Panel Informationon 06-07 Interpretation and review of laboratory results Abnormal [facility] Performed by: [address] [address] CLIA ID: [id number] [facility] Interpretation and review of laboratory results Abnormal [facility] Performed by: [address] [address] CLIA ID: [id number] [facility] Interpretation and review of laboratory results Abnormal [facility] Performed by: [facility], [address] [place] [address], [facility] [address] CLIA ID: [id number] [facility] Interpretation and review of laboratory results Abnormal [facility] Performed by: [facility], [address] [place] [address] CLIA ID: [id number] [facility] Interpretation and review of laboratory results Abnormal [facility] Performed by: [facility], [address] [place] [address], [facility] [address] CLIA ID: [id number] [facility] Nursing Noteon 06-07-2025 Nursing Note This RN called repor t to 4N RN. Normal [facility] Progress Noteon 06-07-2025 Progress Note Normal [facility] Progress Note Normal [facility] Progress Note Normal [facility] US Heart TransthoracicOrdere d By: Myles Iqbal on 06-07-2025 Aortic Sinus Valsalva 3.8 cm [facility] [employer] Work Phone: Aortic Sinus Valsalva Index 2 cm/m2 [facility] Work Phone: Aortic valve Mean systole pressure gradient by US.doppler derived full Bernoulli 4 mmHg [facility] Work Phone: Aortic valve Orifice area by US 3.1 cm2 [facility] Work Phone: Aortic valve Peak systolic flow by US.doppler 0.9 m/s [facility] Work Phone: Ascending Aorta 3.5 cm [facility] Work Phone: Ascending Aorta Index 1.84 cm/m2 [facility] [employer] Work Phone: AV Area by Peak Velocity 2.1 cm2 [facility] Work Phone: AV Area by VTI 2.1 cm2 [facility] Work Phone: AV Peak Gradient 7 mmHg [facility] Work Phone: AV Peak Velocity 1.3 m/s [facility] Work Phone: AV Velocity Ratio 0.69 [facility] Work Phone: [phone] AV VTI 26.2 cm [facility] Work Phone: [phone] JEWEL/BSA Peak Velocity 1.1 cm2/m2 [facility] Work Phone: [phone] JEWEL/BSA VTI 1.1 cm2/m2 [facility] Work Phone: [phone] E/E' Lateral 11.83 [facility] Work Phone: [phone] E/E' Ratio (Averaged) 14.79 [facility] [employer] Work Phone: [phone] E/E' Septal 17.75 [facility] Work Phone: [phone] Est. RA Pressure 3 mmHg [facility] Work Phone: [phone] Fractional Shortening 2D 28 % 28 - 44 % [facility] Work Phone: [phone] Interpretation and review of laboratory results Abnormal [facility] Work Phone: [phone] IVC Diameter 1.4 cm [facility] [employer] Work Phone: [phone] IVSd 1.3 cm Abnormal 0.6 - 0.9 cm [facility] [employer] Work Phone: [phone] LA Diameter 4 cm [facility] [employer] Work Phone: [phone] LA Size Index 2.11 cm/m2 [facility] Work Phone: [phone] LA Volume 2C 43 mL 22 - 52 mL [facility] [employer] Work Phone: [phone] LA Volume 4C 45 mL 22 - 52 mL [facility] [employer] Work Phone: [phone] LA Volume A/L 48 mL [facility] [employer] Work Phone: [phone] LA Volume BP 45 mL 22 - 52 mL [facility] [employer] Work Phone: [phone] LA Volume Index 2C 23 mL/m2 16 - 34 mL/m2 [facility] [employer] Work Phone: [phone] LA Volume Index 4C 24 mL/m2 16 - 34 mL/m2 [facility] [employer] Work Phone: [phone] LA Volume Index A/L 25 mL/m2 16 - 34 mL/m2 [facility] [employer] Work Phone: LA Volume Index BP 24 ml/m2 16 - 34 ml/m2 [facility] Work Phone: [phone] Left ventricular Ejection fraction by US.2D+Calculated by biplane method of disks 66 % 55 - 100 % [facility] Work Phone: [phone] LV E' Lateral Velocity 6 cm/s [facility] Work Phone: [phone] LV E' Septal Velocity 4 cm/s [facility] Work Phone: LV EDV A2C 73 mL [facility] Work Phone: [phone] LV EDV A4C 67 mL [facility] Work Phone: [phone] LV EDV BP 72 mL 56 - 104 mL [facility] Work Phone: [phone] LV EDV Index A2C 38 mL/m2 [facility] Work Phone: [phone] LV EDV Index A4C 35 mL/m2 [facility] Work Phone: LV EDV Index BP 38 mL/m2 [facility] Work Phone: [phone] LV Ejection Fraction A2C 68 % [facility] Work Phone: [phone] LV Ejection Fraction A4C 63 % [facility] Work Phone: LV ESV A2C 23 mL [facility] Work Phone: [phone] LV ESV A4C 25 mL [facility] Work Phone: [phone] LV ESV BP 24 mL 19 - 49 mL [facility] Work Phone: LV ESV Index A2C 12 mL/m2 [facility] Work Phone: LV ESV Index A4C 13 mL/m2 [facility] Work Phone: LV ESV Index BP 13 mL/m2 [facility] Work Phone: LV Mass 2D 243.3 g Abnormal 67 - 162 g [facility] Work Phone: [phone] LV Mass 2D Index 128 g/m2 Abnormal 43 - 95 g/m2 [facility] Work Phone: LV RWT Ratio 0.61 [facility] Work Phone: [phone] LVIDd 4.6 cm 3.9 - 5.3 cm [facility] Work Phone: [phone] LVIDd Index 2.42 cm/m2 [facility] Work [phone] LVIDs 3.3 cm [facility] Work Phone: [phone] LVIDs Index 1.74 cm/m2 [facility] [employer] Work Phone: [phone] LVOT Cardiac Output 4.3 liter/mi nut e [facility] [employer] Work Phone: [phone] [facility]OT [facility]: [phone] LVOT Mean Gradient 2 mmHg [facility] [employer] Work Phone: [phone] LVOT Peak Gradient 3 mmHg [facility] [employer] Work Phone: LVOT Peak Velocity 0.9 m/s [facility] [employer] Work Phone: [phone] LVOT Stroke Volume Index 29.1 mL/m2 [facility] [employer] Work Phone: [phone] LVOT SV 55.3 ml [facility] [employer] Work Phone: [phone] LVOT VTI 17.6 cm [facility] [employer] Work Phone: LVOT:AV VTI Index 0.67 [facility] Work Phone: LVPWd 1.4 cm Abnormal 0.6 - 0.9 cm [facility] Work Phone: MV A Velocity 0.97 m/s [facility] Work Phone: [phone] MV Area by VTI 1.9 cm2 [facility] Work Phone: [phone] MV E Velocity 0.71 m/s [facility] Work Phone: [phone] MV E Wave Deceleration Time 233.4 ms [facility] Work Phone: [phone] MV E/A 0.73 [facility] Work Phone: MV Max Velocity 1.2 m/s [facility] Work Phone: MV Mean Gradient 3 mmHg [facility] Work Phone: MV Mean Velocity 0.8 m/s [facility] Work Phone: MV Peak Gradient 6 mmHg [facility] Work Phone: MV VTI 29.2 cm [facility] Work Phone: MV:LVOT VTI Index 1.66 [facility] Work Phone: PV Max Velocity 0.8 m/s [facility] Work Phone: PV Mean Gradient 1 mmHg [facility] Work Phone: PV Mean Velocity 0.6 m/s [facility] Work Phone: PV Peak Gradient 3 mmHg [facility] Work Phone: RA Area 4C 23 mL [facility] Work Phone: RV Basal Dimension 2.9 cm [facility] Work Phone: RV Free Wall Peak S' 10 cm/s [facility] Work Phone: RV Longitudinal Dimension 5.3 cm [facility] Work Phone: RV Mid Dimension 2.6 cm [facility] Work Phone: RVOT Mean Gradient 1 mmHg [facility] Work Phone: RVOT Peak Gradient 2 mmHg [facility] Work Phone: RVOT Peak Velocity 0.7 m/s [facility] Work Phone: RVOT VTI 14.4 cm [facility] Work Phone: Sinotubular Junction 2.7 cm [facility] Work Phone: TAPSE 1.4 cm Abnormal 1.7 cm [facility] Work Phone: [facility] Work Phone: Heart Transthoracicon Left Ventricle: Left ventricle size is normal. Mildly increased wall thickness. Normal left ventricular systolic function. EF by 2D [employer] Biplane is 66%. Normal wall motion. Right Ventricle: Right ventricle size is normal. Normal systolic function. No significant valvular abnormalities. Left Ventricle Left ventricle size is normal. Mildly increased wall thickness. Normal left ventricular systolic function. EF by 2D [employer]plane is 66%. Normal wall motion. Indeterminate diastolic function. Right Ventricle Right ventricle size is normal. Normal systolic function. Left Atrium Left atrium size is normal. Right Atrium Right atrium size is normal. IVC/SVC IVC diameter is normal and decreases greater than 50% during inspiration; therefore the estimated right atrial pressure is normal (~3 mmHg). Mitral Valve Mildly thickened leaflets. Mild annular calcification. Trace regurgitation. No stenosis noted. Tricuspid Valve Valve structure is normal. Trace regurgitation. Unable to assess RVSP due to insignificant tricuspid regurgitation. Aortic Valve Trileaflet. No cusp thickening. No cusp calcification. Trace regurgitation. No stenosis. Pulmonic Valve Valve structure is normal. Trace regurgitation. Ascending Aorta Normal sized sinuses of Valsalva. Mildly dilated ascending aorta. Ao ascending diameter is 3.5 cm. Pericardium Evidence of prominent epicardial fat. No pericardial effusion. Septum No interatrial shunt visualized on color Doppler. Study Details Image quality: adequate. Heart rate: 68 bpm. Blood pressure: 136/60 mmHg. No contrast was given. Comparison Study There is a prior study available for comparison. Prior study date: 08/29/2016. Echo Additional Conclusions No significant valvular abnormalities. Wall Scoring Baseline Score Index: 1.00 The left ventricular wall motion is normal. CV CPACS 25-hydroxyvitamin D3 [Mass/V ol]on 06-06-2025 Interpretation and review of laboratory results Normal [employer] Target concentration : 30 - 40 ng/mL; toxicity seen at concentrations >100 ng/mL Less than 20 ng/mL: Indicative of Vit D deficiency Test performed by [employer], measuring Total Vitamin D, not individual fractions. [employer] CBC (HEMOGRAM)on 06-06-2025 Erythrocyte distribution width (RBC) [Ratio] 13.0 % Normal 11.5-15.[address] [employer] [facility] Comment on above: Performed By: #### L [id number] ####Fisher Mussel: NOA PRYOR ([id number])[facility] ([facility] [place] [address] Hematocrit (Bld) [Volume fraction] 40.1 % Normal 35.0-47.0 [facility] Comment on above: Performed By: #### L [id number] ####Fisher Mussel: NOA PRYOR ([id number])[facility])[address] [place] [address] Hemoglobin (Bld) [Mass/Vol] 13.0 g/dL Normal 11.7-16.0 [facility] Comment on above: Performed By: #### L [id number] ####Fisher Mussel: NOA PRYOR ([phone])[facility] ([facility])[address] [place] [address] MCH (RBC) [Entitic mass] 29.0 pg Normal 26.0-34.0 [facility] Comment on above: Performed By: #### L [id number] ####Fisher Mussel: NOA PRYOR ([id number])[facility])[address] [place] [address] MCHC 32.4 % Normal 30.5-36.0 [facility] Comment on above: Performed By: #### L [id number] ####Fisher Mussel: NOA PRYOR ([id number])[facility] ([facility])[address] [place] [address] MCV (RBC) [Entitic vol] 89.5 fL Normal 77.0-99.0 S [facility] Comment on above: Performed By: #### L [id number] ####Fisher Mussel: NOA PRYOR ([id number])[facility])[address] [place] [address] Platelet mean volume (Bld) [Entitic vol] 9.8 fL Normal 9.0-12.7 [facility] Comment on above: Performed By: #### L [id number] ####Fisher Mussel: NOA PRYOR ([id number])[facility])[address] [place] [address] Platelets (Bld) [#/Vol] 243 10*3/uL Normal 140-440 [facility] Comment on above: Performed By: #### L [id number] ####Fisher Mussel: NOA PRYOR ([id number])[facility] ([facility])[address] [place] [address] RBC (Bld) [#/Vol] 4.48 10*6/uL Normal 3.80-5.20 [facility] Comment on above: Performed By: #### L [id number] ####Fisher Mussel: NOA PRYOR ([id number])[facility] ([facility])[address] [place] [address] WBC (Bld) [#/Vol] 10.4 10*3/uL Normal 3.6-10.7 [facility] Comment on above: Performed By: #### L [id number] ####Fisher Mussel: NOA PRYOR ([id number])[facility] ([facility])[address] [place] [address] CBC panel Auto (Bld)Ordered By: Mariely Whitaker on 06-06-2025 Erythrocyte distribution width (RBC) [Ratio] 13 % 11.5 - 15.0 % [facility] Hematocrit (Bld) [Volume fraction] 40.1 % 35.0 - 47.0 % [facility] Hemoglobin (Bld) [Mass/Vol] 13 g/dL 11.7 - 16.0 g/dL [facility] Interpretation and review of laboratory results Normal [facility] MCH (RBC) [Entitic mass] 29 pg 26.0 - 34.0 pg [facility] MCHC (RBC) [Mass/Vol] 32.4 % 30.5 - 36.0 % [facility] MCV (RBC) [Entitic vol] 89.5 fL 77.0 - 99.0 fL [facility] Platelet mean volume (Bld) [Entitic vol] 9.8 fL 9.0 - 12.7 fL [facility] Platelets (Bld) [#/Vol] 243 10*3/uL 140 - 440 10*3/uL [facility] RBC (Bld) [#/Vol] 4.48 10*6/uL 3.80 - 5.2 0 10*6/uL [facility] WBC (Bld) [#/Vol] 10.4 10*3/uL 3.6 - 10.7 10*3/uL [facility] COMPREHENSIVE METABOLIC PANE Satnam 06-06-2025 Albumin [Mass/Vol] 3.1 g/dL Low 3.4-4.8 [facility] Comment on above: Performed By: #### L [id number] ####Fisher Mussel: NOA PRYOR ([id number])[facility] ([facility])[address] [place] [address] ALP [Catalytic activity/Vol] 42 U/L Normal 40-150 [facility] Comment on above: Performed By: #### L [id number] ####Fisher Mussel: NOA PRYOR ([id number])[facility] ([facility])[address] [place] [address] ALT [Catalytic activity/Vol] 7 U/L Normal <30 [facility] Comment on above: Performed By: #### L [id number] ####Fisher Mussel: NOA PRYOR ([id number])[facility] ([facility])[address] [place] [address] Anion gap [Moles/Vol] 8 mmol/L Normal 3-13 [facility] Comment on above: Performed By: #### L [id number] ####Fisher Mussel: NOA PRYOR ([id number])[facility] ([facility])[address] [place] [address] AST [Catalytic activity/Vol] 17 U/L Normal <34 [facility] Comment on above: Performed By: #### L [id number] ####Fisher Mussel: NOA PRYOR ([id number])[facility])[address] [place] [address] Bilirubin [Mass/Vol] 0.4 mg/dL Normal <1.2 [facility] Comment on above: Performed By: #### L [id number] ####Fisher Mussel: NOA PRYOR ([id number])[facility] [facility] [place] [address] Calcium [Mass/Vol] 9.6 mg/dL Normal 8.8-10.0 [facility] Comment on above: Performed By: #### L [id number] ####Fisher Mussel: NOA PRYOR ([phone])[facility] ([facility])[address] [place] [address] Chloride [Moles/Vol] 106 mmol/L Normal 98-107 [facility] Comment on above: Performed By: #### L [id number] ####Fisher Mussel: NOA PRYOR ([phone])[facility] ([facility])[address] [place] [address] CO2 [Moles/Vol] 24 mmol/L Normal 23-31 [facility] Comment on above: Performed By: #### L [id number] ####Fisher Mussel: NOA PRYOR ([phone])[facility])[address] [place] [address] Creatinine [Mass/Vol] 0.89 mg/dL Normal 0.57-1.11 [facility] Comment on above: Performed By: #### L [id number] ####Fisher Mussel: NOA PRYOR ([phone])[facility] ([facility])[address] [place] [address] GLOMERULAR FILTRATION RATE ML/MIN/1.73 SQ M.PREDICTED 66.9 mL/min/1.73m*2 Normal >60.0 [facility] Comment on above: Result Comment: Calc ulation based on the Chronic Kidney Disease Epidemiology Collaboration (CKD-EPI) equation refit without adjustment for race Performed By: #### L [id number] ####Fisher Mussel: NOA PRYOR ([phone])[facility] ([facility])[address] [place] [address] Glucose [Mass/Vol] 123 mg/dL High 82-115 [facility] Comment on above: Performed By: #### L [id number] ####Fisher Mussel: NOA PRYOR ([phone])[facility])[address] [place] [address] Potassium [Moles/Vol] 4.1 mmol/L Normal 3.5-5.1 [facility] Comment on above: Result Comment: [facility] potassium values may be up to 0.5 mmol/L lower than serum values. Performed By: #### L [id number] ####Fisher Mussel: NOA PRYOR ([phone])[facility] ([facility])[address] [place] [address] Protein [Mass/Vol] 5.7 g/dL Low 6.4-8.3 [facility] Comment on above: Performed By: #### L [id number] ####Fisher Mussel: NOA PRYOR ([phone])[facility])[address] [place] [address] Sodium [Moles/Vol] 138 mmol/L Normal 136-145 [facility] Comment on above: Performed By: #### L [id number] ####Fisher Mussel: NOA PRYOR ([phone])[facility])[address] [place] [address] Urea nitrogen [Mass/Vol] 22 mg/dL Normal 9-23 [facility] Comment on above: Performed By: #### L [id number] ####Fisher Mussel: NOA PRYOR ([phone])[facility] ([facility])[address] [place] [address] Comprehensive metabolic 1998 panelOrdered By: Junito Carmen on 06-06-2025 Albumin [Mass/Vol] 3.1 g/dL Low 3.4 - 4.8 g/dL [facility] ALP [Catalytic activity/Vol] 42 U/L 40 - 150 U/L [facility] ALT [Catalytic activity/Vol] 7 U/L NINF - 30 U/L [facility] Anion gap [Moles/Vol] 8 mmol/L 3 - 13 mmol/L [facility] AST [Catalytic activity/Vol] 17 U/L NINF - 34 U/L [facility] Bilirubin [Mass/Vol] 0.4 mg/dL NINF - 1.2 mg/dL [facility] Calcium [Mass/Vol] 9.6 mg/dL 8.8 - 10. 0 mg/dL [facility] Chloride [Moles/Vol] 106 mmol/L 98 - 10 7 mmol/L [facility] CO2 [Moles/Vol] 24 mmol/L 23 - 31 mmol/L [facility] Creatinine [Mass/Vol] 0.89 mg/dL 0.57 - 1.11 mg/dL [facility] GFR/1.73 sq M.predicted (S/P/Bld) [Vol rate/Area] 66.9 mL/min - PINF [facility] Comment on above: Calculation based on the Chronic Kidney Disease Epidemiology Collaboration (CKD-EPI) equation refit without adjustment for race Glucose [Mass/Vol] 123 mg/dL High 82 - 115 mg/dL [facility] Interpretation and review of laboratory results Abnormal [facility] Potassium [Moles/Vol] 4.1 mmol/L 3.5 - 5.1 mmol/L [facility] Comment on above: Plasma potassium ayesha ues may be up to 0.5 mmol/L lower than serum values. Protein [Mass/Vol] 5.7 g/dL Low 6.4 - 8.3 g/dL [facility] Sodium [Moles/Vol] 138 mmol/L 136 - 145 mmol/L [facility] Urea nitrogen [Mass/Vol] 22 mg/dL 9 - 23 mg/dL [facility] Consulton 06-06-2025 Consult Normal [facility] Laboratory - Chemistry and C hemistry - challengeon 06-06-2025 Glucose [Mass/Vol] 122 mg/dL High 70 - 100 mg/dL [facility] Glucose [Mass/Vol] 186 mg/dL High 70 - 100 mg/dL [facility] Glucose [Mass/Vol] 132 mg/dL High 70 - 100 mg/dL [facility] Glucose [Mass/Vol] 59 mg/dL Low 70 - 100 mg/dL [facility] 25-hydroxyvitamin D3 [Mass/Vol] 35 ng/mL 20 - 50 ng/mL [facility] No Panel Informationon 06-06 Interpretation and review of laboratory results Abnormal [facility] Performed by: [address] [address] CLIA ID: [id number] [facility] Interpretation and review of laboratory results Abnormal [facility] Performed by: [address] [address] CLIA ID: [id number] [facility] Interpretation and review of laboratory results Abnormal [facility] Performed by: [address] [address] CLIA ID: [id number] [facility] Interpretation and review of laboratory results Abnormal [facility] Performed by: [facility], [address] [place] [address] CLIA ID: [id number] [facility] Nursing Noteon 06-06-2025 Nursing Note RN contacted Dr. Jennings concerning patients scheduled insulin dose this morning and the resulting blood glucose drop to 59. Patient is ordered lantus, which was delayed giving due to order needing adjusted by pharmacy. RN asking about lantus dose. Normal [facility] Progress Noteon 06-06-2025 Progress Note Normal [facility] Progress Note Normal [facility] Progress Note Normal [facility] VITAMIN D DEFICIENCY SCREENI NG (VIT D 25)on 06-06-2025 VIT D 25-OH, TOTAL 35 ng/mL Normal See comment [facility] Comment on above: Result Comment: CHERISE Morrison COMMENTS:Target concentration: 30 - 40 ng/mL; toxicity seen at concentrations >100 ng/mLLess than 20 ng/mL: Indicative of Vit D deficiencyTest performed by Royal Wins, measuring Total Vitamin D, not individual fractions. Performed By: #### L [id number] ####Fisher Mussel: NOA PRYOR ([phone])[facility] ([facility])[address] [place] [address] BASIC METABOLIC PANELon 10- Anion gap [Moles/Vol] 9 mmol/L Normal 3-13 [facility] Comment on above: Performed By: #### L AB15, [id number], LAB62, [id number], [id number], LAB46 ####Fisher Mussel: NOA PRYOR ([phone])[facility] ([facility])[address] [place] [address] Calcium [Mass/Vol] 10.8 mg/dL High 8.8-10.0 [facility] Comment on above: Performed By: #### L AB15, [id number], LAB62, [id number], [id number], LAB46 ####Fisher Mussel: NOA PRYOR ([phone])[facility] ([facility])[address] [place] [address] Chloride [Moles/Vol] 99 mmol/L Normal 98-107 [facility] Comment on above: Performed By: #### L AB15, [id number], LAB62, [id number], [id number], LAB46 ####Fisher Mussel: NOA PRYOR ([id number])[facility] ([facility])[address] [place] [address] CO2 [Moles/Vol] 26 mmol/L Normal 23-31 [facility] Comment on above: Performed By: #### L AB15, [id number], LAB62, [id number], [id number], LAB46 ####Fisher Mussel: NOA PRYOR ([phone])[facility] [place] ([facility])[address] [place] [address] Creatinine [Mass/Vol] 1.24 mg/dL High 0.57-1.11 [facility] Comment on above: Performed By: #### L AB15, [id number], LAB62, [id number], [id number], LAB46 ####Fisher Mussel: NOA PRYOR ([phone])[facility] ([facility])[address] [place] [address] GLOMERULAR FILTRATION RATE ML/MIN/1.73 SQ M.PREDICTED 44.9 mL/min/1.73m*2 Low >60.0 [facility] Comment on above: Result Comment: Calc ulation based on the Chronic Kidney Disease Epidemiology Collaboration (CKD-EPI) equation refit without adjustment for race Performed By: #### L AB15, SPQ102, LAB62, [id number], [id number], LAB46 ####Fisher Mussel: NOA PRYOR ([phone])[facility] [place] ([facility])[address] [place] [address] [place] Glucose [Mass/Vol] 332 mg/dL High 82-115 [facility] Comment on above: Performed By: #### L AB15, [id number], LAB62, [id number], [id number], LAB46 ####Fisher Mussel: NOA PRYOR ([phone])[facility])[address] [place] [address] [place] Potassium [Moles/Vol] 5.1 mmol/L Normal 3.5-5.1 [facility] Comment on above: Result Comment: [facility] potassium values may be up to 0.5 mmol/L lower than serum values. Performed By: #### L AB15, CIM730, LAB62, [id number], [id number], LAB46 ####Fisher Mussel: NOA PRYOR ([phone])[facility] ([facility])[address] [place] [address] Sodium [Moles/Vol] 134 mmol/L Low 136-145 [facility] Comment on above: Performed By: #### L AB15, BOU105, LAB62, [id number], [id number], LAB46 ####Fisher Mussel: NOA PRYOR ([phone])[facility] ([facility])[address] [place] [address] Urea nitrogen [Mass/Vol] 23 mg/dL Normal 9-23 [facility] Comment on above: Performed By: #### L AB15, [id number], LAB62, [id number], [id number], LAB46 ####Fisher Mussel: NOA PRYOR ([phone])[facility] ([facility])[address] [place] [address] BLOOD CULTUREon 06-05-2025 Bacteria identified Cx Nom (Bld) Normal [facility] Comment on above: Performed By: #### L [id number] ####Fisher Mussel: NOA PRYOR ([phone])[facility] ([facility])[address] [place] [address] BLOOD TYPE AND SCREEN GELon 06-05-2025 ABO GROUPING A Normal [facility] Comment on above: Performed By: #### L [id number] ####Fisher Mussel: NOA PRYOR ([phone])[facility] BLOOD B[facility] ([facility])[address] [place] [address] RH TYPE IN BLOOD Positive Normal [facility] Comment on above: Performed By: #### L [id number] ####Fisher Mussel: NOA PRYOR ([phone])[facility] ([facility])[address] [place] [address] Basic metabolic 1998 panelon 06-05-2025 Anion gap [Moles/Vol] 9 mmol/L 3 - 13 mmol/L [facility] Calcium [Mass/Vol] 10.8 mg/dL High 8.8 - 10. 0 mg/dL [facility] Chloride [Moles/Vol] 99 mmol/L 98 - 10 7 mmol/L [facility] CO2 [Moles/Vol] 26 mmol/L 23 - 31 mmol/L [facility] Creatinine [Mass/Vol] 1.24 mg/dL High 0.57 - 1.11 mg/dL [facility] GFR/1.73 sq M.predicted (S/P/Bld) [Vol rate/Area] 44.9 mL/min Low - PINF [facility] Comment on above: Calculation based on the Chronic Kidney Disease Epidemiology Collaboration (CKD-EPI) equation refit without adjustment for race Glucose [Mass/Vol] 332 mg/dL High 82 - 115 mg/dL [facility] Interpretation and review of laboratory results Abnormal [facility] Potassium [Moles/Vol] 5.1 mmol/L 3.5 - 5.1 mmol/L [facility] Comment on above: Plasma potassium ayesha ues may be up to 0.5 mmol/L lower than serum values. Sodium [Moles/Vol] 134 mmol/L Low 136 - 145 mmol/L [facility] Urea nitrogen [Mass/Vol] 23 mg/dL 9 - 23 mg/dL [facility] Blood type and Crossmatch pa oscar (Bld)on 06-05-2025 ABO group Nom (Bld) A [facility] Blood group antibody screen GEL Ql Negative [facility] D Ag Ql (RBC) Positive [facility] CBC W Auto Differential pane l (Bld)on 06-05-2025 Basophils (Bld) [#/Vol] 0.2 10*3/uL 0.0 - 0.2 10*3/uL [facility] Basophils/100 WBC (Bld) 0.8 % 0.0 - 2.0 % [facility] Eosinophils (Bld) [#/Vol] 0.1 10*3/uL 0.0 - 0.5 10*3/uL [facility] Eosinophils/100 WBC (Bld) 0.3 % 0.0 - 6.0 % [facility] Erythrocyte distribution width (RBC) [Ratio] 12.6 % 11.5 - 15.0 % [facility] Hematocrit (Bld) [Volume fraction] 45.6 % 35.0 - 47.0 % [facility] Hemoglobin (Bld) [Mass/Vol] 15.4 g/dL 11.7 - 16.0 g/dL [facility] Immature granulocytes (Bld) [#/Vol] 0.2 10*3/uL High NINF - 0.1 10*3/uL [facility] Immature granulocytes/100 WBC (Bld) 1.2 % 0.0 - 2.0 % [facility] Interpretation and review of laboratory results Abnormal [facility] Lymphocytes (Bld) [#/Vol] 2.5 10*3/uL 1.0 - 4.3 10*3/uL [facility] Lymphocytes/100 WBC (Bld) 13.8 % Low 15.0 - 45.0 % [facility] MCH (RBC) [Entitic mass] 29.3 pg 26.0 - 34.0 pg [facility] MCHC (RBC) [Mass/Vol] 33.8 % 30.5 - 36.0 % [facility] MCV (RBC) [Entitic vol] 86.9 fL 77.0 - 99.0 fL [facility] Monocytes (Bld) [#/Vol] 1.3 10*3/uL High 0.0 - 0.9 10*3/uL [facility] Monocytes/100 WBC (Bld) 7.2 % 5.0 - 13.0 % [facility] Neutrophils (Bld) [#/Vol] 14 10*3/uL High 1.8 - 7.5 10*3/uL [facility] Neutrophils/100 WBC (Bld) 76.7 % 38.0 - 82.0 % [facility] Nucleated RBC/100 WBC (Bld) [Ratio] 0 % [facility] Platelet mean volume (Bld) [Entitic vol] 9.6 fL 9.0 - 12.7 fL [facility] Platelets (Bld) [#/Vol] 314 10*3/uL 140 - 440 10*3/uL [facility] RBC (Bld) [#/Vol] 5.25 10*6/uL High 3.80 - 5.2 0 10*6/uL [facility] WBC (Bld) [#/Vol] 18.2 10*3/uL High 3.6 - 10.7 10*3/uL [facility] CBC WITH AUTO DIFFERENTIALon 06-05-2025 Basophils (Bld) [#/Vol] 0.2 10*3/uL Normal 0.0-0.2 [facility] Comment on above: Performed By: #### L [id number] ####Fisher Mussel: NOA PRYOR ([phone])[facility] ([facility])[address] [place] [address] [place] Basophils/100 WBC (Bld) 0.8 % Normal 0.0-2.0 S [facility] Comment on above: Performed By: #### L [id number] ####Fisher Mussel: NOA PRYOR ([phone])[facility])[address] [place] [address] Eosinophils (Bld) [#/Vol] 0.1 10*3/uL Normal 0.0-0.5 [facility] Comment on above: Performed By: #### L [id number] ####Fisher Mussel: NOA PRYOR ([phone])[facility] ([facility])[address] [place] [address] Eosinophils/100 WBC (Bld) 0.3 % Normal 0.0-6.0 [facility] Comment on above: Performed By: #### L [id number] ####Fisher Mussel: NOA PRYOR ([phone])[facility])[address] [place] [address] Erythrocyte distribution width (RBC) [Ratio] 12.6 % Normal 11.5-15.0 [facility] Comment on above: Performed By: #### L [id number] ####Fisher Mussel: NOA PRYOR ([phone])[facility] ([facility])[address] [place] [address] Hematocrit (Bld) [Volume fraction] 45.6 % Normal 35.0-47.0 [facility] Comment on above: Performed By: #### L [id number] ####Fisher Mussel: NOA [id number])[facility] ([address] Hemoglobin (Bld) [Mass/Vol] 15.4 g/dL Normal 11.7-16.0 [facility] Comment on above: Performed By: #### L [id number] ####Fisher Mussel: NOA PRYOR ([phone])[facility])[address] [place] [address] IMMATURE GRANS % 1.2 % Normal 0.0-2.0 [facility] Comment on above: Performed By: #### L [id number] ####Fisher Mussel: NOA PRYOR ([phone])[address] IMMATURE GRANS ABSOLUTE 0.2 10*3/uL High <0.1 [facility] Comment on above: Performed By: #### L [id number] ####Fisher Mussel: NOA PRYOR ([phone])[facility])[address] [place] [address] Lymphocytes (Bld) [#/Vol] 2.5 10*3/uL Normal 1.0-4.3 [facility] Comment on above: Performed By: #### L [id number] ####Fisher Mussel: NOA PRYOR ([phone])[address] Lymphocytes/100 WBC (Bld) 13.8 % Low 15.0-45.0 [facility] Comment on above: Performed By: #### L [id number] ####Fisher Mussel: NOA PRYOR ([phone])[facility])[address] [place] [address] MCH (RBC) [Entitic mass] 29.3 pg Normal 26.0-34.0 [facility] Comment on above: Performed By: #### L [id number] ####Fisher Mussel: NOA PRYOR ([phone])[address] MCHC 33.8 % Normal 30.5-36.0 [facility] Comment on above: Performed By: #### L [id number] ####Fisher Mussel: NOA PRYOR ([phone])[facility])[address] [place] [address] MCV (RBC) [Entitic vol] 86.9 fL Normal 77.0-99.0 S [facility] Comment on above: Performed By: #### L [id number] ####Fisher Mussel: NOA PRYOR ([phone])[facility] ([facility])[address] [place] [address] Monocytes (Bld) [#/Vol] 1.3 10*3/uL High 0.0-0.9 [facility] Comment on above: Performed By: #### L [id number] ####Fisher Mussel: NOA PRYOR ([phone])[facility])[address] [place] [address] Monocytes/100 WBC (Bld) 7.2 % Normal 5.0-13.0 [facility] Comment on above: Performed By: #### L [id number] ####Fisher Mussel: NOA PRYOR ([phone])[facility])[address] [place] [address] NEUTROPHILS ABSOLUTE 14.0 10*3/uL High 1.8-7.5 [facility] Comment on above: Performed By: #### L [id number] ####Fisher Mussel: NOA PRYOR ([phone])[facility])[address] [place] [address] Neutrophils/100 WBC (Bld) 76.7 % Normal 38.0-82.0 [facility] Comment on above: Performed By: #### L [id number] ####Fisher Mussel: NOA PRYOR ([phone])[facility])[address] [place] [address] NRBC 0.0 /100 WBCs Normal 0.0-2.0 [facility] Comment on above: Performed By: #### L [id number] ####Fisher Mussel: NOA PRYOR ([phone])[facility] ([facility])[address] [place] [address] Platelet mean volume (Bld) [Entitic vol] 9.6 fL Normal 9.0-12.7 [facility] Comment on above: Performed By: #### L [id number] ####Fisher Mussel: NOA PRYOR ([phone])[facility] ([facility])[address] [place] [address] Platelets (Bld) [#/Vol] 314 10*3/uL Normal 140-440 [facility] Comment on above: Performed By: #### L [id number] ####Fisher Mussel: NOA PRYOR ([phone])[facility] ([facility])[address] [place] [address] RBC (Bld) [#/Vol] 5.25 10*6/uL High 3.80-5.20 [facility] Comment on above: Performed By: #### L [id number] ####Fisher Mussel: NOA PRYOR ([phone])[facility] ([facility])[address] [place] [address] WBC (Bld) [#/Vol] 18.2 10*3/uL High 3.6-10.7 [facility] Comment on above: Performed By: #### L [id number] ####Fisher Mussel: NOA PRYOR ([phone])[facility] ([facility])[address] [place] [address] CKon 06-05-2025 CK [Catalytic activity/Vol] 144 U/L Normal 30-185 [facility] Comment on above: Performed By: #### L [id number], [id number] ####Fisher Mussel: NOA PRYOR ([phone])[facility])[address] [place] [address] CK [Catalytic activity/Vol] 141 U/L Normal 30-185 [facility] Comment on above: Performed By: #### L AB15, [id number], LAB62, [id number], [id number], LAB46 ####Fisher Mussel: NOA PRYOR ([phone])[facility] ([facility])[address] [place] [address] CK [Catalytic activity/Vol]o n 06-05-2025 Interpretation and review of laboratory results Normal [facility] COMPLETE URINALYSIS WITH REF JAMES TO CULTUREon 06-05-2025 BACTERIA (#/HPF) IN URINE Moderate Abnormal Negative [facility] Comment on above: Performed By: #### L [id number], [id number] ####Fisher Mussel: NOA PRYOR ([phone])[facility] ([facility])[address] [place] [address] BILIRUBIN, TOTAL PRESENCE IN URINE Negative Normal Negative [facility] Comment on above: Performed By: #### L [id number], [id number] ####Fisher Mussel: NOA PRYOR ([phone])[facility])[address] [place] [address] Clarity (U) Turbid Abnormal Clear [facility] Comment on above: Performed By: #### L [id number], [id number] ####Fisher Mussel: NOA PRYOR ([phone])[facility])[address] [place] [address] Color (U) Yellow Normal Lt. Yellow [facility] Comment on above: Performed By: #### L [id number], [id number] ####Fisher Mussel: NOA PRYOR ([phone])[facility] ([facility])[address] [place] [address] Glucose (U) [Mass/Vol] 100 mg/dL Abnormal Estrella l (<70) [facility] Comment on above: Performed By: #### L [id number], [id number] ####Fisher Mussel: NOA PRYOR ([phone])[facility])[address] [place] [address] HEMOGLOBIN PRESENCE IN URINE Negative Normal Negative [facility] Comment on above: Performed By: #### L [id number], [id number] ####Fisher Mussel: NOA PRYOR ([phone])[facility] [place] ([facility])[address] [place] [address] HYALINE CASTS (#/LPF) IN URINE SEDIMENT BY MICROSCOPY Negative Normal Negative [facility] Comment on above: Performed By: #### L [id number], [id number] ####Fisher Mussel: NOA PRYOR ([phone])[facility] [place] ([facility])[address] [place] [address] Ketones Ql (U) Negative Normal Negative [facility] Comment on above: Performed By: #### L [id number], [id number] ####Fisher Mussel: NOA PRYOR ([phone])[facility] [place] ([facility])[address] [place] [address] LEUKOCYTE ESTERASE PRESENCE IN URINE BY TEST STRIP 500 Veronica/uL Abnormal Negative [facility] Comment on above: Performed By: #### L [id number], [id number] ####Fisher Mussel: NOA PRYOR ([phone])[facility] [place] ([facility])[address] [place] [address] NITRITE PRESENCE IN URINE Positive Abnormal Negative [facility] Comment on above: Performed By: #### L [id number], [id number] ####Fisher Mussel: NOA PYROR ([phone])[facility] [place] ([facility])[address] [place] [address] pH (U) 7.0 [pH] Normal 5.0-8.0 [facility] Comment on above: Performed By: #### L [id number], [id number] ####Fisher Mussel: NOA PRYOR ([phone])[facility] [place] ([facility])[address] [place] [address] Protein (U) [Mass/Vol] 50 mg/dL Abnormal Negative [facility] Comment on above: Performed By: #### L [id number], [id number] ####Fisher Mussel: NOA PRYOR ([phone])[facility] [facility] ([facility])[address] [place] [address] [place] RBC (#/HPF) IN URINE SEDIMENT 11-25 Abnormal 0-2 [facility] Comment on above: Performed By: #### L [id number], [id number] ####Fisher Mussel: NOA PRYOR ([id number])[address] Specific gravity (U) [Rel density] >1.030 High 1.005-1.030 [facility] Comment on above: Result Comment: CHERISE Morrison COMMENTS:This specimen has been reflexed to urine culture. Performed By: #### L [id number], [id number] ####Fisher Mussel: NOA PRYOR ([id number])[facility] ([facility])[address] [place] [address] SQUAMOUS EPITHELIAL CELLS (#/HPF) IN URINE SEDIMENT 3-5 Normal 3-5 [facility] Comment on above: Performed By: #### L [id number], [id number] ####Fisher Mussel: NOA PRYOR ([id number])[address] UROBILINOGEN (MG/DL) IN URINE Normal Normal Normal (0-1) [facility] Comment on above: Performed By: #### L [id number], [id number] ####Fisher Mussel: NOA PRYOR ([id number])[address] WBC (LEUKOCYTE) (#/HPF) IN URINE SEDIMENT >100 Abnormal 0-5 [facility] Comment on above: Performed By: #### L [id number], [id number] ####Fisher Mussel: NOA PRYOR ([id number])[address] Abdomen and Pelvis WO and W contrast Hunter 06-05-2025 1. Osteopenia with degenerative changes seen throughout the spine with mild superior endplate depression L5 of uncertain age with facet hypertrophy and mild L4-L5 spinal listhesis. Moderate generalized calcific atherosclerosis 2. Old right rib fractures with prior surgery with plating, remote appearing left rib fractures, degenerative joint disease both shoulders. 3. No definite evidence of hemorrhage Report Dictated on Electronically Signed By: Cristian Morgan MD Electronically Signed Date/Time: 06/05/2025 9:31 AM EDT [facility] Patient Name: BEVERLY SEE : 1945 [facility]#: [id number] Exam Date/Time: 06/05/2025 09:10 Procedure: CT CHEST ABDOMEN PELVIS W CONTRAST Ordering Provider: OLIVERA J Reason For Exam: fall with abdominal distension and chest pain HISTORY: Fall CT scans of the chest, abdomen and pelvis were performed following intravenous contrast administration, with images from the lung apices through the pubic symphysis. Dose reduction was employed with automated exposure control. The lungs show scattered areas of interstitial fibrotic appearing change. There is no evidence of pneumothorax or hemothorax. The cardiac size is normal with coronary artery calcifications and enlargement central pulmonary arteries suggesting pulmonary hypertension. There are no pericardial effusions. There is no evidence of mediastinal hematoma. The liver is negative, with no evidence of rupture or laceration. There are no focal liver masses. The gallbladder is absent and biliary tree are normal. The spleen is intact, with no evidence of rupture. The pancreas , stomach, and duodenum are normal except for small hiatal hernia. There is no evidence of free intraperitoneal hemorrhage, and there is no retroperitoneal hemorrhage. There is no free air. There is no evidence of hollow organ injury. There is no evidence of bowel obstruction, and the small bowel, large bowel, and mesentery are unremarkable for moderate diverticulosis colon The kidneys and adrenal glands are intact with small cortical cysts. There is no rupture or hemorrhage. There are no mass lesions nor evidence of obstruction. No calculi are seen. The bladder is unremarkable with prior hysterectomy. No definite acute pelvic fractures are seen with right RIC. No fractures are seen in the thoracic spine. [facility] Cristian Morgan MD - 06/05/2025 [facility] 1945 [id number] Exam Date/Time: 06/05/2025 09:10 Procedure: CT CHEST ABDOMEN PELVIS W CONTRAST Ordering Provider: OLIVERA J Reason For Exam: fall with abdominal distension and chest pain HISTORY: Fall CT scans of the chest, abdomen and pelvis were performed following intravenous contrast administration, with images from the lung apices through the pubic symphysis. Dose reduction was employed with automated exposure control. The lungs show scattered areas of interstitial fibrotic appearing change. There is no evidence of pneumothorax or hemothorax. The cardiac size is normal with coronary artery calcifications and enlargement central pulmonary arteries suggesting pulmonary hypertension. There are no pericardial effusions. There is no evidence of mediastinal hematoma. The liver is negative, with no evidence of rupture or laceration. There are no focal liver masses. The gallbladder is absent and biliary tree are normal. The spleen is intact, with no evidence of rupture. The pancreas , stomach, and duodenum are normal except for small hiatal hernia. There is no evidence of free intraperitoneal hemorrhage, and there is no retroperitoneal hemorrhage. There is no free air. There is no evidence of hollow organ injury. There is no evidence of bowel obstruction, and the small bowel, large bowel, and mesentery are unremarkable for moderate diverticulosis colon The kidneys and adrenal glands are intact with small cortical cysts. There is no rupture or hemorrhage. There are no mass lesions nor evidence of obstruction. No calculi are seen. The bladder is unremarkable with prior hysterectomy. No definite acute pelvic fractures are seen with right RIC. No fractures are seen in the thoracic spine. IMPRESSION: 1. Osteopenia with degenerative changes seen throughout the spine with mild superior endplate depression L5 of uncertain age with facet hypertrophy and mild L4-L5 spinal listhesis. Moderate generalized calcific atherosclerosis 2. Old right rib fractures with prior surgery with plating, remote appearing left rib fractures, degenerative joint disease both shoulders. 3. No definite evidence of hemorrhage Report Dictated on Electronically Signed By: Cristian Morgan MD Electronically Signed Date/Time: 06/05/2025 9:31 AM EDT [facility] CT CERVICAL SPINE WO IV CONT RASTon 06-05-2025 CT CERVICAL SPINE WO IV CONTRAST Normal [facility] CT CHEST ABDOMEN PELVIS W CO NTRASTon 06-05-2025 CT CHEST ABDOMEN PELVIS W CONTRAST Normal [facility] CT Cervical spine WO contras ton 06-05-2025 1. No evidence of cervical spine fracture or dislocation, unchanged since last exam of 10/18/2024. 2. Degenerative changes, as described above. Report Dictated on Electronically Signed By: Cristian Morgan MD Electronically Signed Date/Time: 06/05/2025 9:21 AM EDT [facility] Patient Name: BEVERLY SEE : 1945 Exam Date/Time: 06/05/2025 09:10 Procedure: CT CERVICAL SPINE WO IV CONTRAST Ordering Provider: OLIVERA J Reason For Exam: fall with altered mental staatus Reasons for examination: Fall. Axial scans of the cervical spine are performed from the skull base to the thoracic inlet with sagittal and coronal reconstructions. Dose reduction was employed with automated exposure control. There is normal alignment of the cervical vertebral bodies on the sagittal reconstructions. There is no evidence of fracture or subluxation in the cervical spine. The prevertebral soft-tissues are normal. The craniocervical junction and C1-2 junction appear normal except for anterior hypertrophic degenerative changes. The odontoid is intact with cystic/erosive changes. Degenerative disc disease changes are seen at every level of moderate degree. [facility] Cristian Morgan MD - 06/05/2025 Patient Name: BEVERLY AGEE : 1945 Exam Date/Time: 06/05/2025 09:10 Procedure: CT CERVICAL SPINE WO IV CONTRAST Ordering Provider: OLIVERA J Reason For Exam: fall with altered mental staatus Reasons for examination: Fall. Axial scans of the cervical spine are performed from the skull base to the thoracic inlet with sagittal and coronal reconstructions. Dose reduction was employed with automated exposure control. There is normal alignment of the cervical vertebral bodies on the sagittal reconstructions. There is no evidence of fracture or subluxation in the cervical spine. The prevertebral soft-tissues are normal. The craniocervical junction and C1-2 junction appear normal except for anterior hypertrophic degenerative changes. The odontoid is intact with cystic/erosive changes. Degenerative disc disease changes are seen at every level of moderate degree. IMPRESSION: 1. No evidence of cervical spine fracture or dislocation, unchanged since last exam of 10/18/2024. 2. Degenerative changes, as described above. Report Dictated on Electronically Signed By: Cristian Morgan MD Electronically Signed Date/Time: 06/05/2025 9:21 AM EDT [facility] CT HEAD WO IV CONTRASTon CT HEAD WO IV CONTRAST Normal [facility] CT Head WO contraston 2024 1. Atrophy and remote appearing small vessel white matter/right basal ganglia chronic ischemic/neurodegenerat estrella changes. 2. No definite evidence of acute infarction, mass lesion, nor hemorrhage or fracture. Report Dictated on Electronically Signed By: Cristain Morgan MD Electronically Signed Date/Time: 06/05/2025 9:19 AM EDT [facility] Patient Name: BEVERLY SEE : 1945 Exam Date/Time: 06/05/2025 09:10 Procedure: CT HEAD WO IV CONTRAST Ordering Provider: OLIVERA J Reason For Exam: fall with altered mental status Reasons for examination: Fall with altered mental status Axial unenhanced scans of the brain were obtained. Dose reduction was employed with automated exposure control. The patient has baseline moderate parenchymal volume loss and remote appearing small vessel ischemic / neurodegenerative changes in the periventricular and subcortical white matter of the cerebral hemispheres. There are dilated perivascular spaces. There is no mass lesion or brain edema. There is no hemorrhage. There is no definite evidence of acute infarction. There is no shift or herniation. The brainstem and cerebellum are unremarkable. Bone window images demonstrate no significant abnormalities. The paranasal sinuses and mastoids are unremarkable. [facility] Cristian Morgan MD - 06/05/2025 Patient Name: BEVERLY AGEE : 1945 Exam Date/Time: 06/05/2025 09:10 Procedure: CT HEAD WO IV CONTRAST Ordering Provider: OLIVERA J Reason For Exam: fall with altered mental status Reasons for examination: Fall with altered mental status Axial unenhanced scans of the brain were obtained. Dose reduction was employed with automated exposure control. The patient has baseline moderate parenchymal volume loss and remote appearing small vessel ischemic / neurodegenerative changes in the periventricular and subcortical white matter of the cerebral hemispheres. There are dilated perivascular spaces. There is no mass lesion or brain edema. There is no hemorrhage. There is no definite evidence of acute infarction. There is no shift or herniation. The brainstem and cerebellum are unremarkable. Bone window images demonstrate no significant abnormalities. The paranasal sinuses and mastoids are unremarkable. IMPRESSION: 1. Atrophy and remote appearing small vessel white matter/right basal ganglia chronic ischemic/neurodegenerat estrella changes. 2. No definite evidence of acute infarction, mass lesion, nor hemorrhage or fracture. Report Dictated on Electronically Signed By: Cristian Morgan MD Electronically Signed Date/Time: 06/05/2025 9:19 AM EDT [facility] Consulton 06-05-2025 Consult Normal [facility] Consult Normal [facility] DRUGS OF ABUSEon 06-05-2025 AMPHETAMINE SCREEN Negative Normal [facility] Comment on above: Performed By: #### L [id number] ####Fisher Mussel: NOA PRYOR ([id number])[facility])[address] [place] [address] BARBITURATES SCREEN Negative Normal [facility] Comment on above: Performed By: #### L [id number] ####Fisher Mussel: NOA PRYOR ([id number])[facility])[address] [place] [address] BENZODIAZEPINE SCREEN Negative [facility] Comment on above: Performed By: #### L [id number] ####Fisher Mussel: NOA PRYOR ([id number])[facility])[address] [place] [address] COCAINE METAB. SCREEN Negative Normal [facility] Comment on above: Performed By: #### L [id number] ####Fisher Mussel: NOA PRYOR ([id number])[address] FENTANYL SCREEN, UR QUAL Negative [facility] Comment on above: Result Comment: ORDE R COMMENTS:The expected value for all of the drugs listed above is Negative.The following drugs or drug groups have been screened for by Immunoassay at the following thresholds:Amphetamine class (1000 ng/mL)Barbiturates (200 ng/mL)Benzodiazepines (200 ng/mL)Cocaine (300 ng/mL)Methadone (300 ng/mL)Opiates (300 ng/mL)Oxycodone (100 ng/mL)PCP (25 ng/mL)Fentanyl (1.0 ng/ml)NOTE: These results are for medical treatment only. Analysis performed using non-forensic procedures. POSITIVE results are NOT confirmed by a more specificalternative method unless requested. If confirmation is needed, request confirmation under separate order. Performed By: #### L [id number] ####Fisher Mussel: NOA PRYOR ([phone])[facility] [place] [address] METHADONE SCREEN Negative [facility] Comment on above: Performed By: #### L [id number] ####Fisher Mussel: NOA PRYOR ([phone])[facility] ([facility])[address] [place] [address] OPIATES SCREEN Negative [facility] Comment on above: Performed By: #### L [id number] ####Fisher Mussel: NOA PRYOR ([id number])[facility] ([facility])[address] [place] [address] OXYCODONE SCREEN Negative [facility] Comment on above: Performed By: #### L [id number] ####Fisher Mussel: NOA PRYOR ([id number])[facility] ([facility])[address] [place] [address] PHENCYCLIDINE SCREEN Negative Normal [facility] Comment on above: Performed By: #### L [id number] ####Fisher Mussel: NOA PRYOR ([id number])[facility] ([facility])[address] [place] [address] ECG 12-LEADon 06-05-2025 ECG 12-LEAD IMPRESSION: Sinus rhythm Atrial premature complex Borderline prolonged NC interval Inferior infarct, old Electronically Signed On 06-05-2025 16:32:24 EDT by Rcik Hughes [facility] ED Nursing Noteon 06-05-2025 ED Nursing Note Pt was soiled in uri ne RN performed a complete bed change. [facility] ED Nursing Note Report given to Carmita Ann RN. Normal [facility] ED Provider Noteon ED Provider Note Normal [facility] ETHANOLon 06-05-2025 ETHANOL IN SER/PLAS- ANTONY <10 Normal <10 [facility] Comment on above: Result Comment: ORDE R COMMENTS:CIRCULAR SAWYER HELPER depression is seen >100 mg/dL.NOTE: This result is for medical treatment only. Analysis performed using non-forensic procedures. Performed By: #### L [id number], [id number], [id number], [id number], [id number], LAB46 ####Fisher Mussel: NOA PRYOR ([phone])[address] Ethanol (Bld) [Mass/Vol]on 1 Ethanol [Mass/Vol] mg/dL NINF - 10 mg/dL [facility] CIRCULAR SAWYER HELPER depression is se en >100 mg/dL. NOTE: This result is for medical treatment only. Analysis performed using non-forensic procedures. [facility] HIGH SENSITIVITY TROPONIN, S ERIAL BASELINEon 06-05-2025 TROPONIN HS SERIAL BASELINE 5 ng/L Normal <=14 [facility] Comment on above: Result Comment: In i ndividuals presenting with symptoms > 2h, a baseline troponin <= 5 ng/L suggests acutecardiac injury is unlikely and further serial testing is generally not indicated. Performed By: #### L AB15, [id number], LAB62, [id number], [id number], LAB46 ####Fisher Mussel: NOA PRYOR ([id number])[facility] ([facility])[address] [place] [address] HIGH SENSITIVITY TROPONIN, S ERIAL, SECOND TESTon 06-05-2025 2H TROPONIN HS (SERIAL 2ND TROPONIN) 6 ng/L Normal <=14 [facility] Comment on above: Result Comment: Risi ng or falling troponin delta below 2 ng/L as compared to baseline value suggests thatacute cardiac injury is unlikely. Performed By: #### L [id number], [id number] ####Fisher Mussel: NOA PRYOR ([id number])[facility] ([address] LACTIC ACID WITH REFLEXon Lactate [Moles/Vol] 1.9 mmol/L Normal 0.5-2.2 [facility] Comment on above: Performed By: #### L [id number] ####Fisher Mussel: NOA PRYOR ([id number])[facility] ([facility])[address] [place] [address] Lactate [Moles/Vol] 2.7 mmol/L High 0.5-2.2 [facility] Comment on above: Performed By: #### L [id number] ####Fisher Mussel: NOA PRYOR ([id number])[facility] ([facility])[address] [place] [address] Laboratory - Chemistry and C hemistry - challengeon 06-05-2025 CK [Catalytic activity/Vol] 144 U/L 30 - 185 U/L [facility] Glucose [Mass/Vol] 161 mg/dL High 70 - 100 mg/dL [facility] Lactate [Moles/Vol] 1.9 mmol/L 0.5 - 2. 2 mmol/L [facility] CK [Catalytic activity/Vol] 141 U/L 30 - 185 U/L [facility] Lactate [Moles/Vol] 2.7 mmol/L High 0.5 - 2. 2 mmol/L [facility] Magnesium [Mass/Vol] 1.6 mg/dL 1.6 - 2 .6 mg/dL [facility] Laboratory - Coagulationon 1 aPTT Coag (PPP) [Time] 26.9 s 20.0 - 30.5 s [facility] INR Coag (PPP) [Relative time] 1.1 {INR} 0.9 - 1.1 [facility] Comment on above: Recommended Anticoag ulant Therapy: SEE BELOW ----- INR of 2.0 - 3.0 : - Prophylaxis of Venous Thrombosis (high-risk surgery) - Treatment of Venous Thrombosis - Treatment of Pulmonary Embolism (Includes tissue heart valves, Acute Myocardial Infarction to prevent systemic embolism, Valvular Heart Disease, and Atrial Fibrillation) ----- INR of 2.5 - 3.5 : - Mechanical Prosthetic Valves (high risk) - If oral anticoagulant therapy is used to prevent Myocardial Infarction PT Coag (Bld) [Time] 11.9 s 9.0 - 1 2.0 s [facility] Laboratory - Drug toxicology on 06-05-2025 Amphetamines Screen method >1000 ng/mL Ql (U) Negative [facility] Barbiturates Screen method >200 ng/mL Ql (U) Negative [facility] Benzodiazepines Ql (U) Negative [facility] Methadone Screen Ql (U) Negative [facility] Opiates Screen Ql (U) Negative [facility] oxyCODONE Ql (U) Negative [facility] Phencyclidine Ql (U) Negative [facility] [employer] MAGNESIUMon 06-05-2025 Magnesium [Mass/Vol] 1.6 mg/dL Normal 1.6-2.6 [facility] Comment on above: Result Comment: CHERISE Morrison COMMENTS:Higher values can be expected in females during menses. Performed By: #### L AB15, [id number], LAB62, [id number], [id number], LAB46 ####Fisher Mussel: NOA PRYOR ([id number])[address] Magnesium [Mass/Vol]on 06-05 Higher values can be expected in females during menses. [facility] [employer] No Panel InformationOrdered By: Rick Hughes on 06-05-2025 P [place] 48 degrees [facility] [employer] Work Phone: NC Interval 207 ms [facility] [employer] Work Phone: QRS [place] -54 degrees [facility] [employer] Work Phone: QRSD Interval 91 ms [facility] Work Phone: QT Interval 375 ms [facility] [employer] Work Phone: QTC Interval 473 ms [employer] Work Phone: T Wave [place] 60 degrees [facility] [employer] Work Phone: [facility] [employer] Work Phone: No Panel Informationon 06-05 Sinus rhythm Atrial premature complex Borderline prolonged NC interval Inferior infarct, old Electronically Signed On 06-05-2025 16:32:24 EDT by Rick Hughes CV Rick Varma MD - 06/05/2025 IMPRESSION: Sinus rhythm Atrial premature complex Borderline prolonged NC interval Inferior infarct, old Electronically Signed On 06-05-2025 16:32:24 EDT by Rick Hughes [facility] Interpretation and review of laboratory results Abnormal [facility] Performed by: [facility], [address] [place] [address], [facility] [address] CLIA ID: [id number] [facility] Interpretation and review of laboratory results Normal [facility] 2h Troponin HS (Serial 2nd Troponin) 6 ng/L NINF - 14 ng/L [facility] Comment on above: Rising or falling tr oponin delta below 2 ng/L as compared to baseline value suggests that acute cardiac injury is unlikely. Interpretation and review of laboratory results Normal [facility] COCAINE METAB. SCREEN Negative [facility] FENTANYL SCREEN, UR QUAL Negative [facility] The expected value f or all of the drugs listed above is Negative. The following drugs or drug groups have been screened for by Immunoassay at the following thresholds: Amphetamine class (1000 ng/mL) Barbiturates (200 ng/mL) Benzodiazepines (200 ng/mL) Cocaine (300 ng/mL) Methadone (300 ng/mL) Opiates (300 ng/mL) Oxycodone (100 ng/mL) PCP (25 ng/mL) Fentanyl (1.0 ng/ml) NOTE: These results are for medical treatment only. Analysis performed using non-forensic procedures. POSITIVE results are NOT confirmed by a more specific alternative method unless requested. If confirmation is needed, request confirmation under separate order. [facility] Interpretation and review of laboratory results Normal [facility] Troponin HS Serial Baseline 5 ng/L NINF - 14 ng/L [facility] Comment on above: In individuals prese nting with symptoms > 2h, a baseline troponin <= 5 ng/L suggests acute cardiac injury is unlikely and further serial testing is generally not indicated. [facility] Interpretation and review of laboratory results Abnormal [facility] Interpretation and review of laboratory results Normal [facility] Interpretation and review of laboratory results Normal [facility] Radiology Study observation (narrative) [facility] PHOSPHORUSon 06-05-2025 Phosphate [Mass/Vol] 3.6 mg/dL Normal 2.3-4.7 [facility] Comment on above: Performed By: #### L AB15, [id number], LAB62, [id number], [id number], LAB46 ####Fisher Mussel: NOA PRYOR ([id number])[facility])[address] [place] [address] PROTIME AND APTTon aPTT Coag (Bld) [Time] 26.9 s Normal 20.0-30.5 [facility] Comment on above: Performed By: #### L [id number] ####Fisher Mussel: NOA PRYOR ([id number])[facility] ([facility])[address] [place] [address] INR Coag (PPP) [Relative time] 1.1 {INR} Normal 0.9-1.1 [facility] Comment on above: Result Comment: Gt mmended Anticoagulant Therapy: SEE BELOW----- INR of 2.0 - 3.0 : - Prophylaxis of Venous Thrombosis (high-risk surgery) - Treatment of Venous Thrombosis - Treatment of Pulmonary Embolism (Includes tissue heart valves, Acute Myocardial Infarction to prevent systemic embolism, Valvular Heart Disease, and Atrial Fibrillation)----- INR of 2.5 - 3.5 : - Mechanical Prosthetic Valves (high risk) - If oral anticoagulant therapy is used to prevent Myocardial Infarction Performed By: #### L [id number] ####Fisher Mussel: NOA PRYOR ([phone])[facility] [facility] ([facility])[address] [place] [address] PT Coag (PPP) [Time] 11.9 s Normal 9.0-12.0 [facility] Comment on above: Performed By: #### L [id number] ####Fisher Mussel: NOA PRYOR ([phone])[facility] ([facility])[address] [place] [address] Phosphate [Moles/Vol]on 05-27 Phosphate [Mass/Vol] 3.6 mg/dL 2.3 - 4 .7 mg/dL [facility] Progress Noteon 06-05-2025 Progress Note Normal [facility] URINE CULTUREon 06-05-2025 Bacteria identified Cx Nom (U) Normal [facility] Comment on above: Performed By: #### L [id number], [id number] ####Fisher Mussel: NOA PRYOR ([id number])[facility] ([facility] [place] [address] Urinalysis complete panel (U )Ordered By: Nathalie Catalan on 06-05-2025 Bacteria LM.HPF (Urine sed) [#/Area] Moderate Abnormal Negative /HPF [facility] Bilirubin Ql (U) Negative Negative mg/dL [facility] Clarity (U) Turbid Abnormal Clear [facility] Color (U) Yellow Lt. Yellow [facility] Epithelial cells.squamous LM.HPF (Urine sed) [#/Area] [facility] 100 mg/dL Abnormal Normal (<70) [facility] Hemoglobin Ql (U) Negative Negative mg/dL [facility] Hyaline casts Auto (Urine sed) [#/Area] Negative Negative /LPF [facility] Interpretation and review of laboratory results Abnormal [facility] Ketones (U) [Mass/Vol] Negative Negat estrella mg/dL [facility] Leukocyte esterase Test strip Ql (U) 500 Abnormal Negative Veronica/uL [facility] Nitrite Ql (U) Positive Abnormal Negative [facility] th pH (U) 7.0 [pH] 5.0 - 8.0 pH [facility] Protein (U) [Mass/Vol] 50 mg/dL Abnormal Negative [facility] RBC LM.HPF (Urine sed) [#/Area] 11-25 Abnormal [facility] Specific gravity (U) [Rel density] High 1.005 - 1.030 [facility] Urobilinogen (U) [Mass/Vol] Normal Normal (0-1) mg/dL [facility] WBC LM.HPF (Urine sed) [#/Area] /[HPF] Abnormal [facility] This specimen has be en reflexed to urine culture. [facility] Vital signsOrdered By: Rick Hughes on 06-05-2025 Heart rate 95 /min bpm [facility] Work Phone: XR Chest Single viewon 06-05 Patient Name: BEVERLY SEE : 1945 Exam Date/Time: 06/05/2025 09:06 Procedure: XR CHEST 1 VIEW Ordering Provider: OLIVERA J Reason For Exam: TRAUMA HISTORY: Trauma Frontal view the chest shows no definite acute findings. Prior surgery right lower ribs with plating, cholecystectomy clips. Atherosclerosis aorta with normal heart size. Mild prominent interstitial markings which appear chronic. Report Dictated on Electronically Signed By: Cristian Morgan MD Electronically Signed Date/Time: 06/05/2025 9:15 AM T [facility] Cristian Morgan MD - 06/05/2025 [facility] 1945 [id number] Exam Date/Time: 06/05/2025 09:06 Procedure: XR CHEST 1 VIEW Ordering Provider: OLIVERA J Reason For Exam: TRAUMA HISTORY: Trauma Frontal view the chest shows no definite acute findings. Prior surgery right lower ribs with plating, cholecystectomy clips. Atherosclerosis aorta with normal heart size. Mild prominent interstitial markings which appear chronic. Report Dictated on Electronically Signed By: Crisitan Mrogan MD Electronically Signed Date/Time: 06/05/2025 9:15 AM T [facility] Radiology Study observation (narrative) [facility] alth XR Pelvis 1 or 2 Viewson Patient Name: BEVERLY SEE : 1945 Exam Date/Time: 06/05/2025 09:05 Procedure: XR PELVIS 1-2 VIEWS Ordering Provider: OLIVERA J Reason For Exam: TRAUMA HISTORY: Trauma Frontal view the chest shows no definite acute findings with osteopenia, generalized calcific atherosclerosis. Right RIC with old healed proximal femur fracture. Degenerative joint disease left hip, degenerative changes lower lumbar spine Report Dictated on Electronically Signed By: Cristian Morgan MD Electronically Signed Date/Time: 06/05/2025 9:17 AM T [facility] Cristian Morgan MD - 06/05/2025 Patient Name: BEVERLY AGEE : 1945 [facility]#: [id number] Exam Date/Time: 06/05/2025 09:05 Procedure: XR PELVIS 1-2 VIEWS Ordering Provider: OLIVERA J Reason For Exam: TRAUMA HISTORY: Trauma Frontal view the chest shows no definite acute findings with osteopenia, generalized calcific atherosclerosis. Right RIC with old healed proximal femur fracture. Degenerative joint disease left hip, degenerative changes lower lumbar spine Report Dictated on Electronically Signed By: Cristian Morgan MD Electronically Signed Date/Time: 06/05/2025 9:17 AM EDT [facility] Radiology Study observation (narrative) [facility] XR Pelvis 1 or 2 ViewsOrdere d By: Cristian Morgan on 06-05-2025 [facility] Work Phone: 36on 05-28-2025 36 Spoke to patient's s on and informed him what Ani said. He stated he will have his mom get her fasting bloodwork done. Normal [facility] 36on 05-26-2025 36 Normal [facility] AMB POC HEMOGLOBIN A1Con HbA1c (Bld) [Mass fraction] 9.5 % Abnormal - 5.7 % [facility] HbA1c (Bld) [Mass fraction]o n 05-26-2025 Interpretation and review of laboratory results Abnormal [facility] Progress Noteon 05-26-2025 Progress Note Normal [facility] 36on 04-16-2025 36 Normal [facility] 37on 02-20-2025 37 - Increase Basaglar 24 units qhs - Resume Novolog 12 units 2 times daily before meals Normal [facility] AMB POC GLUCOSE TESTOrdered By: Pao Parikh on 02-20-2025 Glucose [Mass/Vol] 291 mg/dL Abnormal 70 - 100 mg/dL [facility] Interpretation and review of laboratory results Abnormal [facility] Progress Noteon 02-20-2025 Progress Note Normal [facility] 37on 01-21-2025 37 Normal [facility] Progress Noteon 01-21-2025 Progress Note Normal [facility] 36on 01-15-2025 36 Severe hyperglycemia . If the patient is experiencing symptoms of nausea/vomiting/diarrhe a, abd pain, polyuria, polyphagia, polydipsia recommend visiting ER. Will see in 1 month. Son will help her resume her insulin use as prescribed. Will follow. Normal [facility] 36on 01-14-2025 36 Called pts son Marti newby. He verified that she has not been taking her insulin and said that they are looking to get her in palliative care. He said he will be helping her until then. Normal [facility] 36 See dexcom download in media tab Normal [facility] 36 Normal [facility] COMPREHENSIVE METABOLIC PANE Satnam 01-14-2025 Albumin [Mass/Vol] 3.5 g/dL Normal 3.4-4.8 [facility] Comment on above: Performed By: #### L AB17, LAB18 ####Fisher Mussel: NOA PRYOR ([phone])[facility] ([facility])[address] ALP [Catalytic activity/Vol] 63 U/L Normal 40-150 [facility] Comment on above: Performed By: #### L AB17, LAB18 ####Fisher Mussel: NOA PRYOR ([phone])[facility] [place] [place] (SW[place])[address] ALT [Catalytic activity/Vol] 14 U/L Normal <30 [facility] Comment on above: Performed By: #### L AB17, LAB18 ####Fisher Mussel: NOA PRYOR ([phone])[facility] [place] [place] ([place])[address] Anion gap [Moles/Vol] 8 mmol/L Normal 3-13 [facility] Comment on above: Performed By: #### L AB17, LAB18 ####Fisher Mussel: NOA PRYOR ([phone])[facility] ANNIA RITTMAN (SWRLAB)[address] [place] [address] [place] AST [Catalytic activity/Vol] 18 U/L Normal <34 [facility] Comment on above: Performed By: #### L 17, LAB18 ####Fisher Mussel: NOA PRYOR ([phone])[facility] ANNIA RITTMAN (SWRLAB)[address] [place] [address] [place] Bilirubin [Mass/Vol] 0.3 mg/dL Normal <1.2 [facility] Comment on above: Performed By: #### Claribel AB17, LAB18 ####Fisher Mussel: NOA PRYOR ([phone])[facility] [place] [place] ([place])[address] Calcium [Mass/Vol] 10.0 mg/dL Normal 8.8-10.0 [facility] Comment on above: Performed By: #### Claribel RUEDA17, LAB18 ####Fisher Mussel: NOA PRYOR ([phone])[facility] ([place])[address] [place] [address] [place] Chloride [Moles/Vol] 98 mmol/L Normal 98-107 [facility] Comment on above: Performed By: #### Claribel RUEDA17, LAB18 ####Fisher Mussel: NOA PRYOR ([phone])[facility]ITAL[facility]lo CROOKSANNIA RITTMAN (SWRLAB)[address] [place] [address] [place] CO2 [Moles/Vol] 27 mmol/L Normal 23-31 [facility] Comment on above: Performed By: #### L AB17, LAB18 ####Fisher Mussel: NOA PRYOR ([phone])[facility] [place] [place] ([place])[address] [place] [address] [place] Creatinine [Mass/Vol] 1.19 mg/dL High 0.57-1.11 [facility] Comment on above: Performed By: #### L AB17, LAB18 ####Fisher Mussel: NOA PRYOR ([phone])[facility] ([place])[address] GLOMERULAR FILTRATION RATE ML/MIN/1.73 SQ M.PREDICTED 47.2 mL/min/1.73m*2 Low >60.0 [facility] Comment on above: Result Comment: Calc ulation based on the Chronic Kidney Disease Epidemiology Collaboration (CKD-EPI) equation refit without adjustment for race Performed By: #### L 17, LAB18 ####Fisher Mussel: NOA PRYOR ([phone])[facility] MILNER RITTM[place] (SWRLAB)[address] [place] [address] [place] Glucose [Mass/Vol] 519 mg/dL Critically high 82-115 S [facility] Comment on above: Performed By: #### Claribel RUEDA17, LAB18 ####Fisher Mussel: NOA PRYOR ([phone])[facility]ITAL[facility] MILNER RITTM[facility] (SWRLAB)[address] [place] [address] [place] Potassium [Moles/Vol] 5.2 mmol/L High 3.5-5.1 [facility] Comment on above: Result Comment: [facility] potassium values may be up to 0.5 mmol/L lower than serum values. Performed By: #### Claribel BLISS, LAB18 ####Fisher Mussel: NOA PRYOR ([phone])[facility] [place] (SWRL[place])[address] [place] [address] [place] Protein [Mass/Vol] 6.7 g/dL Normal 6.4-8.3 [facility] Comment on above: Performed By: #### L AB17, LAB18 ####Fisher Mussel: NOA PRYOR ([phone])[facility] [place] (SWRLAB)[address] [place] [address] [place] Sodium [Moles/Vol] 133 mmol/L Low 136-145 [facility] Comment on above: Performed By: #### L AB17, LAB18 ####Fisher Mussel: NOA PRYOR ([phone])[facility] [place] [place] (SWRL[place])[address] [place] [address] [place] Urea nitrogen [Mass/Vol] 18 mg/dL Normal 9-23 [facility] Comment on above: Performed By: #### L AB17, LAB18 ####Fisher Mussel: NOA PRYOR ([phone])[facility] ANNIA ADRIANMEIRNAVEED (SWRLAB)[address] [place] [address] Comprehensive metabolic 1998 panelOrdered By: Ragini Melo on 01-14-2025 Albumin [Mass/Vol] 3.5 g/dL 3.4 - 4.8 g/dL [facility] ALP [Catalytic activity/Vol] 63 U/L 40 - 150 U/L [facility] ALT [Catalytic activity/Vol] 14 U/L NINF - 30 U/L [facility] Anion gap [Moles/Vol] 8 mmol/L 3 - 13 mmol/L [facility] AST [Catalytic activity/Vol] 18 U/L NINF - 34 U/L [facility] Bilirubin [Mass/Vol] 0.3 mg/dL NINF - 1.2 mg/dL [facility] Calcium [Mass/Vol] 10 mg/dL 8.8 - 10. 0 mg/dL [facility] Chloride [Moles/Vol] 98 mmol/L 98 - 10 7 mmol/L [facility] CO2 [Moles/Vol] 27 mmol/L 23 - 31 mmol/L [facility] Creatinine [Mass/Vol] 1.19 mg/dL High 0.57 - 1.11 mg/dL [facility] GFR/1.73 sq M.predicted (S/P/Bld) [Vol rate/Area] 47.2 mL/min Low - PINF [facility] Comment on above: Calculation based on the Chronic Kidney Disease Epidemiology Collaboration (CKD-EPI) equation refit without adjustment for race Glucose [Mass/Vol] 519 mg/dL Critically high 82 - 1 15 mg/dL [facility] Interpretation and review of laboratory results Abnormal [facility] Potassium [Moles/Vol] 5.2 mmol/L High 3.5 - 5.1 mmol/L [facility] Comment on above: Plasma potassium ayesha ues may be up to 0.5 mmol/L lower than serum values. Protein [Mass/Vol] 6.7 g/dL 6.4 - 8.3 g/dL [facility] Sodium [Moles/Vol] 133 mmol/L Low 136 - 145 mmol/L [facility] Urea nitrogen [Mass/Vol] 18 mg/dL 9 - 23 mg/dL [facility] HEMOGLOBIN A1Con 01-14-2025 Glucose [Mass/Vol] 249 mg/dL Normal [facility] Comment on above: Result Comment: ORDE R COMMENTS:HbA1c values of 5.7-6.4 percent indicate an increased risk for developing diabetes mellitus. HbA1c values greater than or equal to 6.5 percent are diagnostic of diabetes mellitus. For diagnosis of diabetes in individuals without unequivocal hyperglycemia, results should be confirmed by repeat testing. Performed By: #### L AB90 ####Fisher Mussel: NOA PRYOR ([phone])[facility] [employer] Materials[employer] (RLAB)[address] [place] [address] HEMOGLOBIN A1C 10.3 %HbA1C High <5.7 [facility] Comment on above: Result Comment: Norm al less than 5.7%Prediabetes 5.7% to 6.4%Diabetes 6.5% or higher--HgbA1C levels may not be accurate in patients who have renal disease, received recent blood transfusions, are anemic, or who have dyshemoglobinemia. Performed By: #### L AB90 ####Fisher Mussel: NOA PRYOR ([phone])[facility] [employer] (SWRLAB)[address] [place] [address] Hemoglobin A1con 01-14-2025 Average glucose Estimated from glycated hemoglobin (Bld) [Mass/Vol] 249 mg/dL [facility] HbA1c (Bld) [Mass fraction] 10.3 % High [facility] Comment on above: Normal less than 5.7 % Prediabetes 5.7% to 6.4% Diabetes 6.5% or higher --HgbA1C levels may not be accurate in patients who have renal disease, received recent blood transfusions, are anemic, or who have dyshemoglobinemia. Interpretation and review of laboratory results Abnormal [facility] HbA1c values of 5.7- 6.4 percent indicate an increased risk for developing diabetes mellitus. HbA1c values greater than or equal to 6.5 percent are diagnostic of diabetes mellitus. For diagnosis of diabetes in individuals without unequivocal hyperglycemia, results should be confirmed by repeat testing. [facility] LIPID PANELon 01-14-2025 Cholesterol [Mass/Vol] 212 mg/dL High <200 [facility] Comment on above: Performed By: #### L AB17, LAB18 ####Fisher Mussel: NOA PRYOR ([phone])[facility]ITAL[facility]NER RITTM[facility] (SWRLAB)[address] [place] [address] [place] Cholesterol in HDL [Mass/Vol] 40 mg/dL Low >=60 [facility] Comment on above: Performed By: #### L AB17, LAB18 ####Fisher Mussel: NOA PRYOR ([phone])[facility]ITAL[facility] [place] R[place] (SWRLAB)[address] Cholesterol.total/Subha sterol in HDL [Mass ratio] 5 {ratio} Normal [facility] Comment on above: Result Comment: Ref Range:< 3 Low Risk for CHD3-6 Mod Risk for CHD> 6 High Risk for CHD Performed By: #### L AB17, LAB18 ####Fisher Mussel: NOA PRYOR ([phone])[facility]ITAL[facility]lo CROOKSANNIA RITTMAN (SWRLAB)[address] [place] [address] [place] LOW DENSITY LIPOPROTEIN 98 mg/dL Normal 0-<100 [facility] Comment on above: Performed By: #### L AB17, LAB18 ####Fisher Mussel: NOA PRYOR ([phone])[facility]ITAL[facility]lo CROOKSANNIA RITTMAN (SWRLAB)[address] [place] [address] [place] NON-HDL CHOLESTEROL, CALCULATED 172 High <130 [facility] Comment on above: Performed By: #### L AB17, LAB18 ####Fisher Mussel: NOA PRYOR ([phone])[facility]ITALMarlo CROOKSANNIA RITTMAN (SWRLAB)[address] [place] [address] [place] Triglyceride [Mass/Vol] 371 mg/dL High <150 [facility] Comment on above: Performed By: #### L AB17, LAB18 ####Fisher Mussel: NOA PRYOR ([phone])[facility] ANNIA ADRIANTMAN (SWRLAB)[address] VERY LOW DENSITY LIPOPROTEIN, CALCULATED 74 mg/dL High <=30 [facility] Comment on above: Performed By: #### L AB17, LAB18 ####Fisher Mussel: NOA PRYOR ([phone])[facility] ADRIANTMAN (SWRLAB)[address] Lipid 1996 panelon 5 Cholesterol [Mass/Vol] 212 mg/dL High NINF - 200 mg/dL [facility] [employer] Cholesterol in HDL [Mass/Vol] 40 mg/dL Low 60 - PINF mg/dL [facility] [employer] Cholesterol in LDL [Mass/Vol] 98 mg/dL 0 - <100 [facility] [employer] Cholesterol.total/Subha sterol in HDL [Mass ratio] 5 {ratio} [facility] [employer] Comment on above: Ref Range: < 3 Low Risk for CHD 3-6 Mod Risk for CHD > 6 High Risk for CHD Interpretation and review of laboratory results Abnormal [employer] NON-HDL CHOLESTEROL, CALCULATED 172 High NINF - 130 [facility] [employer] Triglyceride [Mass/Vol] 371 mg/dL High NINF - 150 mg/dL [facility] [employer] VERY LOW DENSITY LIPOPROTEIN, CALCULATED 74 mg/dL High NINF - 30 mg/dL [facility] [employer] [facility] [employer] MISCELLANEOUS SENDOUT TESTon 01-14-2025 RESULT See Comment Normal [facility] Comment on above: Result Comment: CHERISE Morrison COMMENTS:Resulted on behalf of [employer] See attached report. Performed By: #### L AB000 ####[employer] (AMDBEAKER)[id number] [place] [facility] MR Brain WO contraston 01-14 1. No acute intracranial findings. 2. Mild degree of chronic small vessel ischemic change. Report Dictated on Electronically Signed By: Nicholas Nelson MD Electronically Signed Date/Time: 01/14/2025 9:51 PM EDT [facility] [employer] [facility] Patient Name: BEVERLY SEE : 1945 Exam Date/Time: 01/14/2025 12:55 Procedure: MR BRAIN WO CONTRAST Ordering Provider: BURCH BETH Reason For Exam: Mental status change, unknown cause EXAM: MR Head Without Intravenous Contrast CLINICAL INDICATION: Mental status change, unknown cause. Cognitive impairment with memory loss. History of prior stroke. TECHNIQUE: Magnetic resonance images of the head/brain without intravenous contrast in multiple planes. COMPARISON: Several prior studies including brain MRI 08/26/2016. FINDINGS: Limitations: Mild motion artifact on a few sequences. Brain and extra-axial spaces: Moderate degree of diffuse parenchymal volume loss. No extra-axial fluid collection. No restricted diffusion. Mild degree of nonspecific T2/FLAIR hyperintense signal in the periventricular and subcortical white matter and to lesser extent within the meme. Subtle encephalomalacia/gliosi s medial right temporal lobe/hippocampus from remote infarct. No evidence of prior hemorrhage on susceptibility weighted sequences. Bones/joints: Within normal limits. Sinuses: Visualized portions appear fairly well aerated. Mastoid air cells: Trace fluid inferior right and left mastoid air cells, chronic. Orbits: Evidence of prior lens replacement bilaterally. Sella: Within normal limits. [facility] Robby Nelson MD - 01/14/2025 [facility] Name: [facility] 1945 [id number] Exam Date/Time: 01/14/2025 12:55 Procedure: MR BRAIN WO CONTRAST Ordering Provider: BURCH BETH Reason For Exam: Mental status change, unknown cause EXAM: MR Head Without Intravenous Contrast CLINICAL INDICATION: Mental status change, unknown cause. Cognitive impairment with memory loss. History of prior stroke. TECHNIQUE: Magnetic resonance images of the head/brain without intravenous contrast in multiple planes. COMPARISON: Several prior studies including brain MRI 08/26/2016. FINDINGS: Limitations: Mild motion artifact on a few sequences. Brain and extra-axial spaces: Moderate degree of diffuse parenchymal volume loss. No extra-axial fluid collection. No restricted diffusion. Mild degree of nonspecific T2/FLAIR hyperintense signal in the periventricular and subcortical white matter and to lesser extent within the meme. Subtle encephalomalacia/gliosi s medial right temporal lobe/hippocampus from remote infarct. No evidence of prior hemorrhage on susceptibility weighted sequences. Bones/joints: Within normal limits. Sinuses: Visualized portions appear fairly well aerated. Mastoid air cells: Trace fluid inferior right and left mastoid air cells, chronic. Orbits: Evidence of prior lens replacement bilaterally. Sella: Within normal limits. IMPRESSION: 1. No acute intracranial findings. 2. Mild degree of chronic small vessel ischemic change. Report Dictated on Electronically Signed By: Nicholas Nelson MD Electronically Signed Date/Time: 01/14/2025 9:51 PM EDT [employer] Study observation (narrative) [facility] alth MR Brain WO contrastOrdered By: Robby Nelson on 01-14-2025 [employer] Work Phone: [facility]ino AD-DETECT??? PHOSPHORY LATED [id number]), PLASMAon 01-14-2025 [facility] AD DETECT [id number], PLASMA 0.72 pg/mL High < OR = 0.15 [facility] Comment on above: Result Comment: Plas ma [id number] levels are consistent with currentmild cognitive impairment and symptomaticAlzheimer's disease when compared to patients withother neurodegenerative disorders and show strongcorrelation with amyloid PET and tau PET.Lancet Neurol 2021; 20:739-752This test was developed and its analyticalperformance characteristics have been determinedby [employer]. It has not been cleared orapproved by the FDA. This assay has been validatedpursuant to the CLIA regulations and is used forclinical purposes.Test performed by [facility] [address] [place] [id number] [employer] Director: Jazz Richter MD,PHD,MBATest Reported by [employer],[employer],[address] [place], [place] [address]Ilruggjmckayla Dent M.D., Ph.D., Director of [phone], CLIA [id number] Performed By: #### L [id number] ####[employer] (AMDBEAKER)[address] [place] 37on 12-31-2024 37 Normal [facility] Progress Noteon 12-31-2024 Progress Note Normal [facility] 36on 12-05-2024 36 Normal [facility] 36on 12-03-2024 36 Normal [facility] 36 Normal [facility] 36 Normal [facility] 36 Dexcom download in media as per patient request. Please review. Thank you! Normal [facility] 36on 12-02-2024 36 Normal [facility] 36on 11-29-2024 36 Normal [facility] LIPID PANEL, STANDARDon 10-26 Cholesterol [Mass/Vol] 172 mg/dL Normal <200 [facility] Comment on above: Order Comment: 0 0 0 Performed By: #### 7 065, 3630, [id number] #### [facility] [address], [address] [place] [address] Fisher Mussel: Logan Grewal MD Cholesterol in HDL [Mass/Vol] 51 mg/dL Normal > OR = 50 [facility] Comment on above: Order Comment: 0 0 0 Performed By: #### 7 065, 7600, 13573 #### [facility] [address], [address] [place] [address] Fisher Mussel: Logan Grewal MD Cholesterol in LDL [Mass/Vol] 93 mg/dL Normal [facility] Comment on above: Order Comment: 0 0 0 Result Comment: Refe rence range: <100 Desirable range <100 mg/dL for primary prevention; <70 mg/dL for patients with CHD or diabetic patients with > or = 2 CHD risk factors. LDL-C is now calculated using the Jan calculation, which is a validated novel method providing better accuracy than the Friedewald equation in the estimation of LDL-C. Gerson SS et al. CLAYTON. 2013;310(19): 9990-8971 (http://education.[employer]ulus.org.Voxound/faq/LJV794) Performed By: #### 7 095, 6060, 58848 #### [facility] [address], [address] [place] [address] Fisher Mussel: Logan Grewal MD Cholesterol.total/Subha sterol in HDL [Mass ratio] 3.4 {ratio} Normal <5.0 [facility] Comment on above: Order Comment: 0 0 0 Performed By: #### 7 065, 7600, [id number] #### [facility] [address], [address] [place] [address] Fisher Mussel: Logan Grewal MD NON HDL CHOLESTEROL 121 mg/dL (calc) Normal <130 [facility] Comment on above: Order Comment: 0 0 0 Result Comment: For patients with diabetes plus 1 major ASCVD risk factor, treating to a non-HDL-C goal of <100 mg/dL (LDL-C of <70 mg/dL) is considered a therapeutic option. Performed By: #### 7 065, 574, 12954 #### [facility] [place] [address] Fisher Mussel: Logan Grewal MD Triglyceride [Mass/Vol] 189 mg/dL High <150 [facility] Comment on above: Order Comment: 0 0 0 Performed By: #### 7 065, 760, 85681 #### [facility] [place] [address] Fisher Mussel: Logan Grewal MD VITAMIN B12/FOLATE, [facility]UM [facility] Cobalamin (Vitamin B12) [Mass/Vol] 859 pg/mL Normal 200-1100 [facility] Comment on above: Performed By: #### 7 065, 0440, 86625 #### [facility] [place] [address] Fisher Mussel: Logan Grewal MD Folate [Mass/Vol] 8.1 ng/mL Normal [facility] Comment on above: Result Comment: Refe rence Range Low: <3.4 Borderline: 3.4-5.4 Normal: >5.4 Performed By: #### 7 065, 7600, 45889 #### [facility] [place] [address] Fisher Mussel: Logan Grewal MD VITAMIN D,25-OH,TOTAL,IAon 0 11-22-2024 VITAMIN D,25-OH,TOTAL,IA 36 ng/mL Normal 30-100 [facility] Comment on above: Result Comment: Beverly min D Status 25-OH Vitamin D: Deficiency: <20 ng/mL Insufficiency: 20 - 29 ng/mL Optimal: > or = 30 ng/mL For 25-OH Vitamin D testing on patients on D2-supplementation and patients for whom quantitation of D2 and D3 fractions is required, the QuestAssureD(TM) 25-OH VIT D, (D2,D3), LC/MS/MS is recommended: order code 59085 (patients >2yrs). See Note 1 Note 1 For additional information, please refer to http://education.GCW/faq/YMH401 (This link is being provided for informational/ educational purposes only.) Performed By: #### 7 065, 7600, 83268 #### [facility] [place] [address] [facility], [address] [place] [phone] Fisher Mussel: Logan Grewal MD 29on 11-20-2024 29 Addended by: SHAUN FLYNN on: 01/14/2025 01:18 PM Modules accepted: Orders Normal [facility] 37on 11-20-2024 37 Normal [facility] Laboratory - Chemistry and C hemistry - challengeOrdered By: Pao Parikh on 11-20-2024 Glucose [Mass/Vol] 99 mg/dL 70 - 100 mg/dL [facility] No Panel InformationOrdered By: Pao Parikh on 11-20-2024 [facility] Progress Noteon 11-20-2024 Progress Note Normal [facility] Bilirubin Test strip Ql (U)O rdered By: Mónica Ortiz on 11-03-2024 Bilirubin Ql (U) Negative Negative [facility] Glucose Ql (U)Ordered By: Kevin Ortiz on 11-03-2024 Urine Glucose (UA) Normal mg/dl Normal [facility] Ketones Test strip Ql (U)Ord ered By: Mónica Ortiz on 11-03-2024 Ketones Ql (U) Negative Negative [facility] Nitrite Test strip Ql (U)Ord ered By: Mónica Ortiz on 11-03-2024 Nitrite Ql (U) Negative Negative [facility] Protein Test strip Ql (U)Ord ered By: Mónica Ortiz on 11-03-2024 Protein Ql (U) 30 mg/dl High Negative [facility] Urine blood detectionOrdered By: Mónica Ortiz on 11-03-2024 Urine Occult Blood 25 /ul High Negative [facility] Urine clarityOrdered By: Lyle Ortiz on 11-03-2024 Clarity (U) Clear Clear [facility] Urine color determinationOrd ered By: Mónica Ortiz on 11-03-2024 Color (U) Yellow Yellow [facility] Urine cultureOrdered By: Lyle Ortiz on 11-03-2024 Bacteria identified Cx Nom (U) Yeast, not Itzel albicans Abnormal [facility] Urine leukocyte esterase det ection by dipstickOrdered By: Mónica Ortiz on 11-03-2024 Leukocyte esterase Test strip Ql (U) 25 /ul High Negative [facility] Urine pHOrdered By: Mónica liang on 11-03-2024 pH (U) 6.0 [pH] 5.0 - 8.0 [facility] Urine specific gravity measu rementOrdered By: Mónica Ortiz on 11-03-2024 Specific gravity (U) [Rel density] 1.015 1.002-1.030 [facility] Urobilinogen Ql (U)Ordered B y: Mónica Ortiz on 11-03-2024 Urine Urobilinogen Normal mg/dl Normal [facility] [id number] 10-29-2024 [id number] Patient Choice Patient Name: BEVERLY AGEE Date of : 1945 Normal [facility] BUN/creatinine ratioOrdered By: Mónica Ortiz on 10-23-2024 Urea nitrogen/Creatinine [Mass ratio] 27.6 mg/mg High 10- [facility] Bilirubin, totalOrdered By: Mónica Ortiz on 10-23-2024 Bilirubin [Mass/Vol] 0.28 mg/dL 0.00-1.30 [facility] Calculated very low density lipoprotein (VLDL) cholesterol measurementOrdered By: Mónica Ortiz on 10-23-2024 VLDL Cholesterol 42 mg/dL High 5-40 [facility] Carbon dioxide measurementOr dered By: Mónica Ortiz on 10-23-2024 CO2 [Moles/Vol] 24.2 mmol/L 22.0-29.0 [facility] Chloride measurementOrdered By: Mónica Ortiz on 10-23-2024 Chloride [Moles/Vol] 103 mmol/L 96-108 [facility] Erythrocyte distribution wid th (RBC) [Ratio]Ordered By: Mónica Ortiz on 10-23-2024 Erythrocyte distribution width (RBC) [Entitic vol] 43.3 fL 35.1-43.9 [facility] Erythrocyte distribution wid th ratioOrdered By: Mónica Ortiz on 10-23-2024 Erythrocyte distribution width (RBC) [Ratio] 13.2 % 11.6-14.6 [facility] GFR/1.73 sq M.predicted yobany g non-blacks MDRD (S/P/Bld) [Vol rate/Area]Ordered By: Mónica Ortiz on 10-23-2024 Estimated GFR (MDRD) Non-Af Amer 72 >60 [facility] Comment on above: mL/min/1.73m2 CKD-EP I Creatinine Equation (2020) Hematocrit Auto (Bld) [Volum e fraction]Ordered By: Mónica Ortiz on 10-23-2024 Hematocrit (Bld) [Volume fraction] 40.2 % 37-47 [facility] Hemoglobin A1c percentageOrd ered By: Mónica Ortiz on 10-23-2024 HbA1c (Bld) [Mass fraction] 11.0 % >5.7 [facility] Hemoglobin measurementOrdere d By: Mónica Ortiz on 10-23-2024 Hemoglobin (Bld) [Mass/Vol] 13.0 g/dL 12.0-15.0 [facility] LDL calc ser/plasOrdered By: Mónica Ortiz on 10-23-2024 LDL Cholesterol, Calculated 94 mg/dL [facility] Comment on above: Minyuscbzi=203-777 m g/dL & Higher Hdyz=561 mg/dL or greater Laboratory - Chemistry and C hemistry - challengeOrdered By: Mónica Ortiz on 10-23-2024 AST [Catalytic activity/Vol] 15 U/L <32 [facility] MCV (mean corpuscular volume ) determinationOrdered By: Mónica Ortiz on 10-23-2024 MCV (RBC) [Entitic vol] 90.1 fL 81-99 [facility] Magnesium (Unsp spec) [Mass/ Vol]Ordered By: Mónica Ortiz on 10-23-2024 Magnesium [Mass/Vol] 1.9 mg/dL 1.5-2.2 [facility] Mean corpuscular hemoglobin (MCH) determinationOrdered By: Mónica Ortiz on 10-23-2024 MCH (RBC) [Entitic mass] 29.1 pg 27.0-32.0 [facility] Mean corpuscular hemoglobin concentration (MCHC) determinationOrdered By: Mónica Ortiz on 10-23-2024 MCHC (RBC) [Mass/Vol] 32.3 g/dL 32-36 [facility] Mean platelet volume determi nationOrdered By: Mónica Ortiz on 10-23-2024 Platelet mean volume (Bld) [Entitic vol] 9.8 fL 6.2-12.0 [facility] Platelet countOrdered By: Kevin Ortiz on 10-23-2024 Platelets (Bld) [#/Vol] 239 10*3/uL 150-450 [facility] RBC Auto (Bld) [#/Vol]Ordere d By: Mónica Ortiz on 10-23-2024 RBC (Bld) [#/Vol] 4.46 10*6/uL 4.2-5.4 [facility] Screening total cholesterol/ high density lipoprotein (HDL) cholesterol ratioOrdered By: Mónica Ortiz on 10-23-2024 Cholesterol.total/Subha sterol in HDL [Mass ratio] 4.58 {ratio} [facility] Serum creatinine measurement (mass/volume)Ordered By: Mónica Ortiz on 10-23-2024 Creatinine [Mass/Vol] 0.8 mg/dL 0.70-1.20 [facility] Serum globulin measurementOr dered By: Mónica Ortiz on 10-23-2024 Globulin (S) [Mass/Vol] 2.7 g/dL 2.2-4.2 [facility] Serum glucose measurement (m ass/volume)Ordered By: Mónica Ortiz on 10-23-2024 Glucose [Mass/Vol] 178 mg/dL High 70-99 [facility] Serum or plasma alanine barber otransferase (ALT) measurementOrdered By: Mónica Ortiz on 10-23-2024 ALT [Catalytic activity/Vol] 10 U/L <35 [facility] Serum or plasma albumin jonathan urement (mass/volume)Ordered By: Mónica Ortiz on 10-23-2024 Albumin [Mass/Vol] 3.4 g/dL 3.4-4.8 [facility] Serum or plasma albumin/glob ulin mass ratioOrdered By: Mónica Ortiz on 10-23-2024 Albumin/Globulin [Mass ratio] 1.3 {ratio} 0.9-2.4 [facility] Serum or plasma alkaline cassia sphatase measurementOrdered By: Mónica Ortiz on 10-23-2024 ALP [Catalytic activity/Vol] 58 U/L 35-104 [facility] Serum or plasma anion gap de termination (moles/volume)Ordered By: Mónica Ortiz on 10-23-2024 Anion gap [Moles/Vol] 8 mmol/L 5-15 [facility] Serum or plasma calcium jonathan urement (mass/volume)Ordered By: Mónica Ortiz on 10-23-2024 Calcium [Mass/Vol] 10.2 mg/dL 7.6-11.0 [facility] Serum or plasma cholesterol in HDL measurement (mass/volume)Ordered By: Mónica Ortiz on 10-23-2024 Cholesterol in HDL [Mass/Vol] 38 mg/dL Low >40 [facility] Comment on above: National Cholesterol Education Program (NCEP) guidelines:<40 mg/dL: Low HDL-cholesterol (major risk factor for CHD)>= 60 mg/dL: High HDL-cholesterol (negative risk factor for CHD)HDL-cholesterol is affected by a number of factors, e.g. smoking, exercise, hormones, sex and age. Serum or plasma cholesterol measurement (mass/volume)Ordered By: Mónica Ortiz on 10-23-2024 Cholesterol [Mass/Vol] 173 mg/dL <201 [facility] Comment on above: Cholesterol level, D esirable <200 mg/dLBorderline high cholesterol 200-239 mg/dLHigh cholesterol >=240 mg/dLRecommendations of the NCEP Adult Treatment Panel for the following risk-cutoff thresholds for the [place] population. Serum or plasma potassium me asurementOrdered By: Mónica Ortiz on 10-23-2024 Potassium [Moles/Vol] 4.3 mmol/L 3.3-5.1 [facility] Serum or plasma sodium measu rement (moles/volume)Ordered By: Mónica Ortiz on 10-23-2024 Sodium [Moles/Vol] 136 mmol/L 133-145 [facility] Serum or plasma urea nitroge n measurement (mass/volume)Ordered By: Mónica Ortiz on 10-23-2024 Urea nitrogen [Mass/Vol] 23 mg/dL High 4-19 [facility] TSH DL <= 0.005 mIU/L QnOrde red By: Mónica Ortiz on 10-23-2024 Thyroid Stimulating Hormone (TSH) 2.940 uIU/mL 0.300-4.200 [facility] Total proteinOrdered By: Lyle Ortiz on 10-23-2024 Protein [Mass/Vol] 6.1 g/dL 5.9-8.4 [facility] Triglycerides measurementOrd ered By: Mónica Ortiz on 10-23-2024 Triglyceride [Mass/Vol] 208 mg/dL High <199 [facility] Comment on above: The drugs N-Acetylcy steine and Metamizole may falsely depress this assay. Normal range: <150 mg/dLBorderline High: 150-199 mg/dLHigh: 200-499 mg/dLVery High: >500 mg/dL Vitamin D, 25-hydroxyOrdered By: Mónica Ortiz on 10-23-2024 Vitamin D 25-Hydroxy 29.8 ng/mL Low 30-100 [facility] Comment on above: Vitamin D StatusDefi ciency: <20 ng/mL (50nmol/L)Insufficiency: 20-30 ng/mL (50-75 nmol/L)Sufficiency: 30-100 ng/mL (75-250 nmol/L)Toxicity: >100 ng/mL (>250 nmol/L) White blood cell (WBC) count Ordered By: Mónica Ortiz on 10-23-2024 WBC (Bld) [#/Vol] 9.9 10*3/uL 4.4-11.0 [facility] 30on 10-22-2024 30 Normal [facility] [id number] 10-22-2024 [id number] HCL notes discharge plan is SNF. HCL to sign off at this time. [facility] [id number] 10-22-2024 [id number] [facility] [id number] [facility] [phone] Transport requested in [facility]. Awaiting time confirmation. [facility] [id number] [facility] [phone] [facility] BASIC METABOLIC PANELon 09-28 Anion gap [Moles/Vol] 5 mmol/L Normal 3-13 [facility] Comment on above: Performed By: #### L [id number] ####Fisher Mussel: NOA PRYOR ([id number])[facility] ([facility])[address] [place] [address] Calcium [Mass/Vol] 9.6 mg/dL Normal 8.8-10.0 [facility] Comment on above: Performed By: #### L [id number] ####Fisher Mussel: NOA PRYOR ([id number])[facility] ([facility])[address] [place] [address] [place] Chloride [Moles/Vol] 107 mmol/L Normal 98-107 [facility] Comment on above: Performed By: #### L [id number] ####Fisher Mussel: NOA PRYOR ([id number])[facility] ([facility])[address] [place] [address] [place] CO2 [Moles/Vol] 23 mmol/L Normal 23-31 [facility] Comment on above: Performed By: #### L [id number] ####Fisher Mussel: NOA PRYOR ([phone])[facility] ([address] Creatinine [Mass/Vol] 0.79 mg/dL Normal 0.57-1.11 [facility] Comment on above: Performed By: #### L [id number] ####Fisher Mussel: NOA PRYOR ([phone])[facility])[address] [place] [address] GLOMERULAR FILTRATION RATE ML/MIN/1.73 SQ M.PREDICTED 77.2 mL/min/1.73m*2 Normal >60.0 [facility] Comment on above: Result Comment: Calc ulation based on the Chronic Kidney Disease Epidemiology Collaboration (CKD-EPI) equation refit without adjustment for race Performed By: #### L [id number] ####Fisher Mussel: NOA PRYOR ([phone])[address] Glucose [Mass/Vol] 189 mg/dL High 82-115 [facility] Comment on above: Performed By: #### L [id number] ####Fisher Mussel: NOA PRYOR ([phone])[address] Potassium [Moles/Vol] 3.9 mmol/L Normal 3.5-5.1 [facility] Comment on above: Result Comment: [facility] potassium values may be up to 0.5 mmol/L lower than serum values. Performed By: #### L [id number] ####Fisher Mussel: NOA PRYOR ([phone])[address] Sodium [Moles/Vol] 135 mmol/L Low 136-145 [facility] Comment on above: Performed By: #### L [id number] ####Fisher Mussel: NOA [id number])[address] Urea nitrogen [Mass/Vol] 15 mg/dL Normal 9-23 [facility] Comment on above: Performed By: #### L [id number] ####Fisher Mussel: NOA [id number])[facility] [place] [address] Basic metabolic 1998 panelon 10-22-2024 Anion gap [Moles/Vol] 5 mmol/L 3 - 13 mmol/L [facility] Calcium [Mass/Vol] 9.6 mg/dL 8.8 - 10. 0 mg/dL [facility] Chloride [Moles/Vol] 107 mmol/L 98 - 10 7 mmol/L [facility] CO2 [Moles/Vol] 23 mmol/L 23 - 31 mmol/L [facility] Creatinine [Mass/Vol] 0.79 mg/dL 0.57 - 1.11 mg/dL [facility] GFR/1.73 sq M.predicted (S/P/Bld) [Vol rate/Area] 77.2 mL/min - PINF [facility] Comment on above: Calculation based on the Chronic Kidney Disease Epidemiology Collaboration (CKD-EPI) equation refit without adjustment for race Glucose [Mass/Vol] 189 mg/dL High 82 - 115 mg/dL [facility] Interpretation and review of laboratory results Abnormal [facility] Potassium [Moles/Vol] 3.9 mmol/L 3.5 - 5.1 mmol/L [facility] Comment on above: Plasma potassium ayesha ues may be up to 0.5 mmol/L lower than serum values. Sodium [Moles/Vol] 135 mmol/L Low 136 - 145 mmol/L [facility] Urea nitrogen [Mass/Vol] 15 mg/dL 9 - 23 mg/dL [facility] CBC W Auto Differential pane l (Bld)Ordered By: Seymour Pepe on 10-22-2024 Basophils (Bld) [#/Vol] 0.1 10*3/uL 0.0 - 0.2 10*3/uL [facility] Basophils/100 WBC (Bld) 0.9 % 0.0 - 2.0 % [facility] Eosinophils (Bld) [#/Vol] 0.3 10*3/uL 0.0 - 0.5 10*3/uL [facility] Eosinophils/100 WBC (Bld) 2.9 % 0.0 - 6.0 % [facility] Erythrocyte distribution width (RBC) [Ratio] 12.9 % 11.5 - 15.0 % [facility] Hematocrit (Bld) [Volume fraction] 39.9 % 35.0 - 47.0 % [facility] Hemoglobin (Bld) [Mass/Vol] 13.8 g/dL 11.7 - 16.0 g/dL [facility] Immature granulocytes (Bld) [#/Vol] 0.1 10*3/uL High NINF - 0.1 10*3/uL [facility] Immature granulocytes/100 WBC (Bld) 1.1 % 0.0 - 2.0 % [facility] Interpretation and review of laboratory results Abnormal [facility] Lymphocytes (Bld) [#/Vol] 3.5 10*3/uL 1.0 - 4.3 10*3/uL [facility] Lymphocytes/100 WBC (Bld) 38.5 % 15.0 - 45.0 % [facility] MCH (RBC) [Entitic mass] 29.6 pg 26.0 - 34.0 pg [facility] MCHC (RBC) [Mass/Vol] 34.6 % 30.5 - 36.0 % [facility] MCV (RBC) [Entitic vol] 85.6 fL 77.0 - 99.0 fL [facility] Monocytes (Bld) [#/Vol] 0.6 10*3/uL 0.0 - 0.9 10*3/uL [facility] Monocytes/100 WBC (Bld) 6.7 % 5.0 - 13.0 % [facility] Neutrophils (Bld) [#/Vol] 4.5 10*3/uL 1.8 - 7.5 10*3/uL [facility] Neutrophils/100 WBC (Bld) 49.9 % 38.0 - 82.0 % [facility] Nucleated RBC/100 WBC (Bld) [Ratio] 0 % [facility] Platelet mean volume (Bld) [Entitic vol] 9.5 fL 9.0 - 12.7 fL [facility] Platelets (Bld) [#/Vol] 214 10*3/uL 140 - 440 10*3/uL [facility] RBC (Bld) [#/Vol] 4.66 10*6/uL 3.80 - 5.2 0 10*6/uL [facility] WBC (Bld) [#/Vol] 9.1 10*3/uL 3.6 - 10.7 10*3/uL [facility] CBC WITH AUTO DIFFERENTIALon 10-22-2024 Basophils (Bld) [#/Vol] 0.1 10*3/uL Normal 0.0-0.2 [facility] Comment on above: Performed By: #### L [id number] ####Fisher Mussel: NOA PRYOR ([id number])[facility])[address] [place] [address] Basophils/100 WBC (Bld) 0.9 % Normal 0.0-2.0 [facility] Comment on above: Performed By: #### L [id number] ####Fisher Mussel: NOA PRYOR ([id number])[facility])[address] [place] [address] Eosinophils (Bld) [#/Vol] 0.3 10*3/uL Normal 0.0-0.5 [facility] Comment on above: Performed By: #### L [id number] ####Fisher Mussel: NOA PRYOR ([id number])[facility])[address] [place] [address] Eosinophils/100 WBC (Bld) 2.9 % Normal 0.0-6.0 [facility] Comment on above: Performed By: #### L [id number] ####Fisher Mussel: NOA PRYOR ([id number])[facility])[address] [place] [address] Erythrocyte distribution width (RBC) [Ratio] 12.9 % Normal 11.5-15.0 [facility] Comment on above: Performed By: #### L [id number] ####Fisher Mussel: NOA PRYOR ([id number])[facility])[address] [place] [address] Hematocrit (Bld) [Volume fraction] 39.9 % Normal 35.0-47.0 [facility] Comment on above: Performed By: #### L [id number] ####Fisher Mussel: NOA PRYOR ([id number])[facility])[address] [place] [address] Hemoglobin (Bld) [Mass/Vol] 13.8 g/dL Normal 11.7-16.0 [facility] Comment on above: Performed By: #### L [id number] ####Fisher Mussel: NOA PRYOR ([id number])[facility])[address] [place] [address] IMMATURE GRANS % 1.1 % Normal 0.0-2.0 [facility] Comment on above: Performed By: #### L [id number] ####Fisher Mussel: NOA PRYOR ([id number])[facility])[address] [place] [address] IMMATURE GRANS ABSOLUTE 0.1 10*3/uL High <0.1 [facility] Comment on above: Performed By: #### L [id number] ####Fisher Mussel: NOA PRYOR ([id number])[address] Lymphocytes (Bld) [#/Vol] 3.5 10*3/uL Normal 1.0-4.3 [facility] Comment on above: Performed By: #### L [id number] ####Fisher Mussel: NOA PRYOR ([id number])[facility])[address] [place] [address] Lymphocytes/100 WBC (Bld) 38.5 % Normal 15.0-45.0 [facility] Comment on above: Performed By: #### L [id number] ####Fisher Mussel: NOA PRYOR ([phone])[address] MCH (RBC) [Entitic mass] 29.6 pg Normal 26.0-34.0 [facility] Comment on above: Performed By: #### L [id number] ####Fisher Mussel: NOA PRYOR ([id number])[address] MCHC 34.6 % Normal 30.5-36.0 [facility] Comment on above: Performed By: #### L [id number] ####Fisher Mussel: NOA PRYOR ([id number])[facility])[address] [place] [address] MCV (RBC) [Entitic vol] 85.6 fL Normal 77.0-99.0 [facility] Comment on above: Performed By: #### L [id number] ####Fisher Mussel: NOA PRYOR ([id number])[facility] ([facility])[address] [place] [address] Monocytes (Bld) [#/Vol] 0.6 10*3/uL Normal 0.0-0.9 [facility] Comment on above: Performed By: #### L [id number] ####Fisher Mussel: NOA PRYOR ([id number])[facility] ([facility])[address] [place] [address] Monocytes/100 WBC (Bld) 6.7 % Normal 5.0-13.0 [facility] Comment on above: Performed By: #### L [id number] ####Fisher Mussel: NOA PRYOR ([id number])[facility] ([facility])[address] [place] [address] NEUTROPHILS ABSOLUTE 4.5 10*3/uL Normal 1.8-7.5 [facility] Comment on above: Performed By: #### L [id number] ####Fisher Mussel: NOA PRYOR ([id number])[facility] ([facility])[address] [place] [address] Neutrophils/100 WBC (Bld) 49.9 % Normal 38.0-82.0 [facility] Comment on above: Performed By: #### L [id number] ####Fisher Mussel: NOA PRYOR ([id number])[facility] ([facility])[address] [place] [address] NRBC 0.0 /100 WBCs Normal 0.0-2.0 [facility] Comment on above: Performed By: #### L [id number] ####Fisher Mussel: NOA PRYOR ([phone])[facility] ([facility])[address] [place] [address] Platelet mean volume (Bld) [Entitic vol] 9.5 fL Normal 9.0-12.7 [facility] Comment on above: Performed By: #### L [id number] ####Fisher Mussel: NOA PRYOR ([id number])[facility] ([facility])[address] [place] [address] Platelets (Bld) [#/Vol] 214 10*3/uL Normal 140-440 [facility] Comment on above: Performed By: #### L [id number] ####Fisher Mussel: NOA PRYOR ([id number])[facility] ([facility])[address] [place] [address] RBC (Bld) [#/Vol] 4.66 10*6/uL Normal 3.80-5.20 [facility] Comment on above: Performed By: #### L [id number] ####Fisher Mussel: NOA PRYOR ([phone])[facility] ([facility])[address] [place] [address] WBC (Bld) [#/Vol] 9.1 10*3/uL Normal 3.6-10.7 [facility] Comment on above: Performed By: #### L [id number] ####Fisher Mussel: NOA PRYOR ([id number])[facility] ([facility])[address] [place] [address] Laboratory - Chemistry and C hemistry - challengeon 10-22-2024 Glucose [Mass/Vol] 184 mg/dL High 70 - 100 mg/dL [facility] [employer] Glucose [Mass/Vol] 269 mg/dL High 70 - 100 mg/dL [facility] [employer] Glucose [Mass/Vol] 186 mg/dL High 70 - 100 mg/dL [facility] [employer] No Panel Informationon 10-22 Interpretation and review of laboratory results Abnormal [facility] [employer] Performed by: [facility], [address] [place] [address] CLIA ID: [id number] [facility] [employer] [facility] Interpretation and review of laboratory results Abnormal [facility] [employer] Performed by: [facility], [address] [place] [address] CLIA ID: [id number] [facility] Interpretation and review of laboratory results Abnormal [facility] Performed by: [facility], [address] [place] [address] CLIA ID: [id number] [facility] Nursing Noteon 10-22-2024 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 [facility] 30on 10-21-2024 30 Normal [facility] 30 Normal [facility] [id number] 10-21-2024 [id number] Normal [facility] CBC (HEMOGRAM)on 10-21-2024 Erythrocyte distribution width (RBC) [Ratio] 12.6 % Normal 11.5-15.0 [facility] Comment on above: Performed By: #### L [id number] ####Fisher Mussel: NOA PRYOR ([phone])[facility] ([facility])[address] [place] [address] Hematocrit (Bld) [Volume fraction] 42.0 % Normal 35.0-47.0 [facility] Comment on above: Performed By: #### L [id number] ####Fisher Mussel: NOA PRYOR ([phone])[facility] ([facility])[address] [place] [address] Hemoglobin (Bld) [Mass/Vol] 13.7 g/dL Normal 11.7-16.0 [facility] Comment on above: Performed By: #### L AB294 ####Fisher Mussel: NOA PRYOR ([phone])[facility] ([facility])[address] [place] [address] MCH (RBC) [Entitic mass] 29.5 pg Normal 26.0-34.0 [facility] Comment on above: Performed By: #### L AB294 ####Fisher Mussel: NOA PRYOR ([phone])[facility])[address] [place] [address] MCHC 32.6 % Normal 30.5-36.0 [facility] Comment on above: Performed By: #### L AB294 ####Fisher Mussel: NOA PRYOR ([id number])[facility] ([facility])[address] [place] [address] MCV (RBC) [Entitic vol] 90.3 fL Normal 77.0-99.0 S [facility] Comment on above: Performed By: #### L AB294 ####Fisher Mussel: NOA PRYRO ([phone])[facility])[address] [place] [address] Platelet mean volume (Bld) [Entitic vol] 9.1 fL Normal 9.0-12.7 [facility] Comment on above: Performed By: #### L AB294 ####Fisher Mussel: NOA PRYOR ([id number])[facility] ([facility])[address] [place] [address] Platelets (Bld) [#/Vol] 178 10*3/uL Normal 140-440 [facility] Comment on above: Performed By: #### L AB294 ####Fisher Mussel: NOA PRYOR ([phone])[facility])[address] [place] [address] RBC (Bld) [#/Vol] 4.65 10*6/uL Normal 3.80-5.20 [facility] Comment on above: Performed By: #### L AB294 ####Fisher Mussel: NOA PRYOR ([phone])[facility])[address] [place] [address] WBC (Bld) [#/Vol] 8.2 10*3/uL Normal 3.6-10.7 [facility] Comment on above: Performed By: #### L AB294 ####Fisher Mussel: NOA PRYOR ([phone])[facility] ([facility])[address] [place] [address] CBC panel Auto (Bld)on 10-21 Erythrocyte distribution width (RBC) [Ratio] 12.6 % 11.5 - 15.0 % [facility] Hematocrit (Bld) [Volume fraction] 42 % 35.0 - 47.0 % [facility] Hemoglobin (Bld) [Mass/Vol] 13.7 g/dL 11.7 - 16.0 g/dL [facility] Interpretation and review of laboratory results Normal [facility] MCH (RBC) [Entitic mass] 29.5 pg 26.0 - 34.0 pg [facility] MCHC (RBC) [Mass/Vol] 32.6 % 30.5 - 36.0 % [facility] MCV (RBC) [Entitic vol] 90.3 fL 77.0 - 99.0 fL [facility] Platelet mean volume (Bld) [Entitic vol] 9.1 fL 9.0 - 12.7 fL [facility] Platelets (Bld) [#/Vol] 178 10*3/uL 140 - 440 10*3/uL [facility] RBC (Bld) [#/Vol] 4.65 10*6/uL 3.80 - 5.2 0 10*6/uL [facility] WBC (Bld) [#/Vol] 8.2 10*3/uL 3.6 - 10.7 10*3/uL [facility] CORTISOLon 10-21-2024 CORTISOL 9.1 ug/dL Normal 3.7-19.4 [facility] Comment on above: Result Comment: CHERISE Morrison COMMENTS:Before 10am 4.5-22.7 ug/dLAfter 5pm 1.7-14.1 ug/dL Performed By: #### L AB535, LAB61 ####Fisher Mussel: NOA PRYOR ([phone])[facility] ([facility])[address] [place] [address] Cobalamin (Vitamin B12) [Mas s/Vol]on 10-21-2024 Interpretation and review of laboratory results Abnormal [facility] Laboratory - Chemistry and C hemistry - challengeon 10-21-2024 Cobalamin (Vitamin B12) [Mass/Vol] 912 pg/mL High 213 - 816 pg/mL [facility] Glucose [Mass/Vol] 178 mg/dL High 70 - 100 mg/dL [facility] Glucose [Mass/Vol] 239 mg/dL High 70 - 100 mg/dL [facility] TSH Qn 2.07 m[IU]/L [facility] Glucose [Mass/Vol] 275 mg/dL High 70 - 100 mg/dL [facility] 25-hydroxyvitamin D3 [Mass/Vol] 29 ng/mL See comment [facility] Cortisol [Mass/Vol] 9.1 ug/dL 3.7 - 19 .4 ug/dL [facility] Glucose [Mass/Vol] 256 mg/dL High 70 - 100 mg/dL [facility] [employer] No Panel Informationon 10-21 Interpretation and review of laboratory results Abnormal [facility] Performed by: [facility], [address] [place] [id number] CLIA ID: [id number] [facility] Interpretation and review of laboratory results Abnormal [facility] Performed by: [facility], [address] [place] [address] CLIA ID: [id number] [facility] Interpretation and review of laboratory results Abnormal [facility] Performed by: [facility], [address] [place] [address] CLIA ID: [id number] [facility] Interpretation and review of laboratory results Normal [facility] Before 10am 4.5-22.7 ug/dL After 5pm 1.7-14.1 ug/dL [facility] Interpretation and review of laboratory results Abnormal [facility]formed by: [facility], [address] [place] [address] CLIA ID: [id number] [facility] Progress Noteon 10-21-2024 Progress Note Normal [facility] Progress Note Normal [facility] Progress [facility] THYROID STIMULATING HORMONEo n 10-21-2024 THYROID STIMULATING HORMONE 2.07 uIU/mL Normal 0.35-4.94 [facility] Comment on above: Performed By: #### L AB129 ####Fisher Mussel: NOA PRYOR ([id number])[facility] ([facility])[address] [place] [address] TSH Qnon 10-21-2024 Interpretation and review of laboratory results Normal [facility] VITAMIN B12on 10-21-2024 Cobalamin (Vitamin B12) [Mass/Vol] 912 pg/mL High 213-816 [facility] Comment on above: Performed By: #### L AB67 ####Fisher Mussel: CAROL OLIVA ([phone])[facility] ([facility])[address] [place] [address] VITAMIN D DEFICIENCY SCREENI NG (VIT D 25)on 10-21-2024 VIT D 25-OH, TOTAL 29 ng/mL Normal See comment [facility] Comment on above: Result Comment: CHERISE Morrison COMMENTS:Target concentration: 30 - 40 ng/mL; toxicity seen at concentrations >100 ng/mLLess than 20 ng/mL: Indicative of Vit D deficiencyTest performed by [employer], measuring Total Vitamin D, not individual fractions. Performed By: #### L AB535, LAB61 ####Fisher Mussel: NOA PRYOR ([phone])[facility] ([facility])[address] [place] [address] 30on 10-20-2024 30 Normal [facility] 30 Normal [facility] [id number] 10-20-2024 [id number] Continues on IV antibiotics for UTI. Geriatrics and Endocrinology following. May need therapies. TCC will follow for needs. . [facility] [id number] Received routine Soc ial Work consult. Will follow with interdisciplinary team and provide community resources as needed. [facility] BASIC METABOLIC PANELon 09-28 Anion gap [Moles/Vol] 6 mmol/L Normal 3-13 [facility] Comment on above: Performed By: #### L AB15 ####Fisher Mussel: NOA PRYOR ([id number])[facility] ([facility])[address] [place] [address] Calcium [Mass/Vol] 9.6 mg/dL Normal 8.8-10.0 [facility] Comment on above: Performed By: #### L AB15 ####Fisher Mussel: NOA PRYOR ([id number])[facility] ([facility])[address] [place] [address] Chloride [Moles/Vol] 108 mmol/L High 98-107 [facility] Comment on above: Performed By: #### L AB15 ####Fisher Mussel: NOA PRYOR ([id number])[facility] ([facility])[address] [place] [address] CO2 [Moles/Vol] 22 mmol/L Low 23-31 [facility] Comment on above: Performed By: #### L AB15 ####Fisher Mussel: NOA PRYOR ([phone])[facility] ([facility])[address] [place] [address] Creatinine [Mass/Vol] 0.77 mg/dL Normal 0.57-1.11 [facility] Comment on above: Performed By: #### L AB15 ####Fisher Mussel: NOA PRYOR ([phone])[facility] ([facility])[address] [place] [address] [place] GLOMERULAR FILTRATION RATE ML/MIN/1.73 SQ M.PREDICTED 79.6 mL/min/1.73m*2 Normal >60.0 [facility] Comment on above: Result Comment: Calc ulation based on the Chronic Kidney Disease Epidemiology Collaboration (CKD-EPI) equation refit without adjustment for race Performed By: #### L AB15 ####Fisher Mussel: NOA PRYOR ([phone])[facility] ([facility])[address] [place] [address] Glucose [Mass/Vol] 56 mg/dL Low 82-115 [facility] Comment on above: Performed By: #### L AB15 ####Fisher Mussel: NOA PRYOR ([id number])[facility] ([facility])[address] [place] [address] Potassium [Moles/Vol] 4.0 mmol/L Normal 3.5-5.1 [facility] Comment on above: Result Comment: [facility] potassium values may be up to 0.5 mmol/L lower than serum values. Performed By: #### L AB15 ####Fisher Mussel: NOA PRYOR ([phone])[facility] ([facility])[address] [place] [address] Sodium [Moles/Vol] 136 mmol/L Normal 136-145 [facility] Comment on above: Performed By: #### L AB15 ####Fisher Mussel: NOA PRYOR ([phone])[facility] ([facility])[address] [place] [address] Urea nitrogen [Mass/Vol] 11 mg/dL Normal 9-23 [facility] Comment on above: Performed By: #### L AB15 ####Fisher Mussel: NOA PRYOR ([id number])[facility] ([facility])[address] [place] [address] Bacteria identified Cx Nom ( U)Ordered By: Ajit Obrien on 10-20-2024 Interpretation and review of laboratory results Abnormal [facility] Basic metabolic 1998 panelon 10-20-2024 Anion gap [Moles/Vol] 6 mmol/L 3 - 13 mmol/L [facility] Calcium [Mass/Vol] 9.6 mg/dL 8.8 - 10. 0 mg/dL [facility] Chloride [Moles/Vol] 108 mmol/L High 98 - 10 7 mmol/L [facility] CO2 [Moles/Vol] 22 mmol/L Low 23 - 31 mmol/L [facility] Creatinine [Mass/Vol] 0.77 mg/dL 0.57 - 1.11 mg/dL [facility] GFR/1.73 sq M.predicted (S/P/Bld) [Vol rate/Area] 79.6 mL/min - PINF [facility] Comment on above: Calculation based on the Chronic Kidney Disease Epidemiology Collaboration (CKD-EPI) equation refit without adjustment for race Glucose [Mass/Vol] 56 mg/dL Low 82 - 115 mg/dL [facility] Interpretation and review of laboratory results Abnormal [facility] Potassium [Moles/Vol] 4 mmol/L 3.5 - 5.1 mmol/L [facility] Comment on above: Plasma potassium ayesha ues may be up to 0.5 mmol/L lower than serum values. Sodium [Moles/Vol] 136 mmol/L 136 - 145 mmol/L [facility] Urea nitrogen [Mass/Vol] 11 mg/dL 9 - 23 mg/dL [facility] CBC (HEMOGRAM)on 10-20-2024 Erythrocyte distribution width (RBC) [Ratio] 13.0 % Normal 11.5-15.0 [facility] Comment on above: Performed By: #### L AB294 ####Fisher Mussel: NOA PRYOR ([id number])[address] Hematocrit (Bld) [Volume fraction] 40.4 % Normal 35.0-47.0 [facility] Comment on above: Performed By: #### L AB294 ####Fisher Mussel: NOA PRYOR ([id number])[address] Hemoglobin (Bld) [Mass/Vol] 13.5 g/dL Normal 11.7-16.0 [facility] Comment on above: Performed By: #### L AB294 ####Fisher Mussel: NOA PRYOR ([id number])[facility])[address] [place] [address] MCH (RBC) [Entitic mass] 29.0 pg Normal 26.0-34.0 [facility] Comment on above: Performed By: #### L AB294 ####Fisher Mussel: NOA PRYOR ([id number])[address] MCHC 33.4 % Normal 30.5-36.0 [facility] Comment on above: Performed By: #### L AB294 ####Fisher Mussel: NOA PRYOR ([id number])[facility])[address] [place] [address] MCV (RBC) [Entitic vol] 86.9 fL Normal 77.0-99.0 S [facility] Comment on above: Performed By: #### L AB294 ####Fisher Mussel: NOA PRYOR ([phone])[facility])[address] [place] [address] Platelet mean volume (Bld) [Entitic vol] 9.5 fL Normal 9.0-12.7 [facility] Comment on above: Performed By: #### L AB294 ####Fisher Mussel: NOA PRYOR ([phone])[facility])[address] [place] [address] Platelets (Bld) [#/Vol] 226 10*3/uL Normal 140-440 [facility] Comment on above: Performed By: #### L AB294 ####Fisher Mussel: NOA PRYOR ([id number])[facility])[address] [place] [address] RBC (Bld) [#/Vol] 4.65 10*6/uL Normal 3.80-5.20 [facility] Comment on above: Performed By: #### L AB294 ####Fisher Mussel: NOA PRYOR ([id number])[facility])[address] [place] [address] WBC (Bld) [#/Vol] 10.5 10*3/uL Normal 3.6-10.7 [facility] Comment on above: Performed By: #### L AB294 ####Fisher Mussel: NOA PRYOR ([id number])[facility])[address] [place] [address] CBC panel Auto (Bld)on 10-20 Erythrocyte distribution width (RBC) [Ratio] 13 % 11.5 - 15.0 % [facility] Hematocrit (Bld) [Volume fraction] 40.4 % 35.0 - 47.0 % [facility] Hemoglobin (Bld) [Mass/Vol] 13.5 g/dL 11.7 - 16.0 g/dL [facility] Interpretation and review of laboratory results Normal [facility] MCH (RBC) [Entitic mass] 29 pg 26.0 - 34.0 pg [facility] MCHC (RBC) [Mass/Vol] 33.4 % 30.5 - 36.0 % [facility] MCV (RBC) [Entitic vol] 86.9 fL 77.0 - 99.0 fL [facility] Platelet mean volume (Bld) [Entitic vol] 9.5 fL 9.0 - 12.7 fL [facility] Platelets (Bld) [#/Vol] 226 10*3/uL 140 - 440 10*3/uL [facility] RBC (Bld) [#/Vol] 4.65 10*6/uL 3.80 - 5.2 0 10*6/uL [facility] WBC (Bld) [#/Vol] 10.5 10*3/uL 3.6 - 10.7 10*3/uL [facility] Consulton 10-20-2024 Consult Normal [facility] Consult Normal [facility] Consult Normal [facility] Consult Normal [facility] Laboratory - Chemistry and C hemistry - challengeon 10-20-2024 Glucose [Mass/Vol] 253 mg/dL High 70 - 100 mg/dL [facility] Glucose [Mass/Vol] 202 mg/dL High 70 - 100 mg/dL [facility] Glucose [Mass/Vol] 159 mg/dL High 70 - 100 mg/dL [facility] Glucose [Mass/Vol] 80 mg/dL 70 - 100 mg/dL [facility] Laboratory - Microbiology an d Antimicrobial susceptibilityOrdered By: Ajit Obrien on 10-20-2024 Bacteria identified Cx Nom (U) >100,000 CFU/mL Escherichia coli Abnormal [facility] No Panel Informationon 10-20 Interpretation and review of laboratory results Abnormal [facility]formed by: [facility], [address] [place], [place] [id number] CLIA ID: [id number] [facility] Interpretation and review of laboratory results Abnormal [facility] Performed by: [facility], [address] [place] [address] CLIA ID: [id number] [facility] Interpretation and review of laboratory results Abnormal [facility] Performed by: [facility], [address] [place] [address] CLIA ID: [id number] [facility] Interpretation and review of laboratory results Normal [facility] Performed by: [facility], [address] [place] [address] CLIA ID: [id number] [facility] Progress Noteon 10-20-2024 Progress Note Normal [facility] Progress Note Nutrition rescreen completed. Patient referred to the Dietitian due to HgAc1 = 10.8. Sowmya Loya, [place] Normal [facility] 30on 10-19-2024 30 Normal [facility] 30 Normal [facility] CBC (HEMOGRAM)on 10-19-2024 Erythrocyte distribution width (RBC) [Ratio] 12.8 % Normal 11.5-15.0 [facility] Comment on above: Performed By: #### L AB294 ####Fisher Mussel: NOA PRYOR ([phone])[facility])[address] [place] [address] Hematocrit (Bld) [Volume fraction] 38.6 % Normal 35.0-47.0 [facility] Comment on above: Performed By: #### L AB294 ####Fisher Mussel: NOA PRYOR ([phone])[address] Hemoglobin (Bld) [Mass/Vol] 13.3 g/dL Normal 11.7-16.0 [facility] Comment on above: Performed By: #### L AB294 ####Fisher Mussel: NOA PRYOR ([id number])[facility] ([facility])[address] [place] [address] MCH (RBC) [Entitic mass] 29.4 pg Normal 26.0-34.0 [facility] Comment on above: Performed By: #### L AB294 ####Fisher Mussel: NOA PRYOR ([phone])[facility])[address] [place] [address] MCHC 34.5 % Normal 30.5-36.0 [facility] Comment on above: Performed By: #### L AB294 ####Fisher Mussel: NOA PRYOR ([id number])[facility])[address] [place] [address] MCV (RBC) [Entitic vol] 85.4 fL Normal 77.0-99.0 S [facility] Comment on above: Performed By: #### L AB294 ####Fisher Mussel: NOA PRYOR ([phone])[facility] ([facility])[address] [place] [address] Platelet mean volume (Bld) [Entitic vol] 9.3 fL Normal 9.0-12.7 [facility] Comment on above: Performed By: #### L AB294 ####Fisher Mussel: NOA PRYOR ([phone])[facility])[address] [place] [address] Platelets (Bld) [#/Vol] 245 10*3/uL Normal 140-440 [facility] Comment on above: Performed By: #### L AB294 ####Fisher Mussel: NOA PRYOR ([phone])[facility])[address] [place] [address] RBC (Bld) [#/Vol] 4.52 10*6/uL Normal 3.80-5.20 [facility] Comment on above: Performed By: #### L AB294 ####Fisher Mussel: NOA PRYOR ([id number])[facility])[address] [place] [address] WBC (Bld) [#/Vol] 9.7 10*3/uL Normal 3.6-10.7 [facility] Comment on above: Performed By: #### L AB294 ####Fisher Mussel: NOA PRYOR ([id number])[facility])[address] [place] [address] CBC panel Auto (Bld)Ordered By: Josy Victoria on 10-19-2024 Erythrocyte distribution width (RBC) [Ratio] 12.8 % 11.5 - 15.0 % [facility] Hematocrit (Bld) [Volume fraction] 38.6 % 35.0 - 47.0 % [facility] Hemoglobin (Bld) [Mass/Vol] 13.3 g/dL 11.7 - 16.0 g/dL [facility] Interpretation and review of laboratory results Normal [facility] MCH (RBC) [Entitic mass] 29.4 pg 26.0 - 34.0 pg [facility] MCHC (RBC) [Mass/Vol] 34.5 % 30.5 - 36.0 % [facility] MCV (RBC) [Entitic vol] 85.4 fL 77.0 - 99.0 fL [facility] Platelet mean volume (Bld) [Entitic vol] 9.3 fL 9.0 - 12.7 fL [facility] Platelets (Bld) [#/Vol] 245 10*3/uL 140 - 440 10*3/uL [facility] RBC (Bld) [#/Vol] 4.52 10*6/uL 3.80 - 5.2 0 10*6/uL [facility] WBC (Bld) [#/Vol] 9.7 10*3/uL 3.6 - 10.7 10*3/uL [facility] COMPREHENSIVE METABOLIC PANE Satnam 10-19-2024 Albumin [Mass/Vol] 3.2 g/dL Low 3.4-4.8 [facility] Comment on above: Performed By: #### L AB103, LAB17 ####Fisher Mussel: NOA PRYOR ([id number])[address] ALP [Catalytic activity/Vol] 43 U/L Normal 40-150 [facility] Comment on above: Performed By: #### L AB103, LAB17 ####Fisher Mussel: NOA [id number])[address] ALT [Catalytic activity/Vol] 7 U/L Normal <30 [facility] Comment on above: Performed By: #### L AB103, LAB17 ####Fisher Mussel: NOA [id number])[facility] ([facility])[address] [place] [address] [place] Anion gap [Moles/Vol] 8 mmol/L Normal 3-13 [facility] Comment on above: Performed By: #### L AB103, LAB17 ####Fisher Mussel: NOA PRYOR ([id number])[facility] ([facility])[address] AST [Catalytic activity/Vol] 19 U/L Normal <34 [facility] Comment on above: Performed By: #### L AB103, LAB17 ####Fisher Mussel: NOA PRYOR ([phone])[facility] ([facility])[address] Bilirubin [Mass/Vol] 0.3 mg/dL Normal <1.2 [facility] Comment on above: Performed By: #### Claribel HOLCOMB, LAB17 ####Fisher Mussel: NOA PRYOR ([phone])[facility] ([facility])[address] [place] [address] Calcium [Mass/Vol] 9.6 mg/dL Normal 8.8-10.0 [facility] Comment on above: Performed By: #### Claribel HOLCOMB, LAB17 ####Fisher Mussel: NOA PRYOR ([id number])[facility] ([facility])[address] [place] [address] [place] Chloride [Moles/Vol] 107 mmol/L Normal 98-107 [facility] Comment on above: Performed By: #### L AICHA, LAB17 ####Fisher Mussel: NOA PRYOR ([phone])[facility] ([facility])[address] [place] [address] [place] CO2 [Moles/Vol] 24 mmol/L Normal 23-31 [facility] Comment on above: Performed By: #### L AB103, LAB17 ####Fisher Mussel: NOA PRYOR ([phone])[facility] [place] [facility])[address] [place] [address] [place] Creatinine [Mass/Vol] 0.72 mg/dL Normal 0.57-1.11 [facility] Comment on above: Performed By: #### L AB103, LAB17 ####Fisher Mussel: NOA PRYOR ([phone])[facility])[address] [place] [address] GLOMERULAR FILTRATION RATE ML/MIN/1.73 SQ M.PREDICTED 86.2 mL/min/1.73m*2 Normal >60.0 [facility] Comment on above: Result Comment: Calc ulation based on the Chronic Kidney Disease Epidemiology Collaboration (CKD-EPI) equation refit without adjustment for race Performed By: #### L AB103, [id number] ####Fisher Mussel: NOA PRYOR ([id number])[address] Glucose [Mass/Vol] 25 mg/dL Critically low 82-115 [facility] Comment on above: Performed By: #### L AB103, LAB17 ####Fisher Mussel: NOA PRYOR ([id number])[address] Potassium [Moles/Vol] 3.5 mmol/L Normal 3.5-5.1 [facility] Comment on above: Result Comment: [facility] potassium values may be up to 0.5 mmol/L lower than serum values. Performed By: #### L AB103, LAB17 ####Fisher Mussel: NOA PRYOR ([id number])[address] Protein [Mass/Vol] 5.9 g/dL Low 6.4-8.3 [facility] Comment on above: Performed By: #### L AB103, LAB17 ####Fisher Mussel: NOA PRYOR ([phone])[address] Sodium [Moles/Vol] 139 mmol/L Normal 136-145 [facility] Comment on above: Performed By: #### L AB103, LAB17 ####Fisher Mussel: NOA [id number])[address] [place] [address] [place] Urea nitrogen [Mass/Vol] 17 mg/dL Normal - [facility] Comment on above: Performed By: #### L AB103, LAB17 ####Fisher Mussel: NOA PRYOR ([id number])[facility] ([facility])[address] [place] [address] Comprehensive metabolic 1998 panelOrdered By: Yun Siegel on 10-19-2024 Albumin [Mass/Vol] 3.2 g/dL Low 3.4 - 4.8 g/dL [facility] ALP [Catalytic activity/Vol] 43 U/L 40 - 150 U/L [facility] ALT [Catalytic activity/Vol] 7 U/L NINF - 30 U/L [facility] Anion gap [Moles/Vol] 8 mmol/L 3 - 13 mmol/L [facility] AST [Catalytic activity/Vol] 19 U/L [facility] - 34 U/L [facility] Bilirubin [Mass/Vol] 0.3 mg/dL NINF - 1.2 mg/dL [facility] Calcium [Mass/Vol] 9.6 mg/dL 8.8 - 10. 0 mg/dL [facility] Chloride [Moles/Vol] 107 mmol/L 98 - 10 7 mmol/L [facility] CO2 [Moles/Vol] 24 mmol/L 23 - 31 mmol/L [facility] Creatinine [Mass/Vol] 0.72 mg/dL 0.57 - 1.11 mg/dL [facility] GFR/1.73 sq M.predicted (S/P/Bld) [Vol rate/Area] 86.2 mL/min - PINF [facility] Comment on above: Calculation based on the Chronic Kidney Disease Epidemiology Collaboration (CKD-EPI) equation refit without adjustment for race Glucose [Mass/Vol] 25 mg/dL Critically low 82 - 11 5 mg/dL [facility] Interpretation and review of laboratory results Abnormal [facility] Potassium [Moles/Vol] 3.5 mmol/L 3.5 - 5.1 mmol/L [facility] Comment on above: Plasma potassium ayesha ues may be up to 0.5 mmol/L lower than serum values. Protein [Mass/Vol] 5.9 g/dL Low 6.4 - 8.3 g/dL [facility] Sodium [Moles/Vol] 139 mmol/L 136 - 145 mmol/L [facility] Urea nitrogen [Mass/Vol] 17 mg/dL 9 - 23 mg/dL [facility] ECG 12-LEADon 10-19-2024 ECG 12-LEAD IMPRESSION: Sinus rhythm Short NC interval Left axis deviation Electronically Signed On 10-19-2024 01:47:54 EST by Marbin Ambrose Normal [facility] HEMOGLOBIN A1Con 10-19-2024 Glucose [Mass/Vol] 263 mg/dL Normal [facility] Comment on above: Result Comment: ORDE R COMMENTS:If not done within the last 3 [id number] values of 5.7-6.4 percent indicate an increased risk for developing diabetes mellitus. HbA1c values greater than or equal to 6.5 percent are diagnostic of diabetes mellitus. For diagnosis of diabetes in individuals without unequivocal hyperglycemia, results should be confirmed by repeat testing. Performed By: #### L AB90 ####Fisher Mussel: NOA PRYOR ([phone])[facility] [address] HEMOGLOBIN A1C 10.8 %HbA1C High <5.7 [facility] Comment on above: Result Comment: Norm al less than 5.7%Prediabetes 5.7% to 6.4%Diabetes 6.5% or higher--HgbA1C levels may not be accurate in patients who have renal disease, received recent blood transfusions, are anemic, or who have dyshemoglobinemia. Performed By: #### L AB90 ####Fisher Mussel: NOA PRYOR ([phone])[facility] [address] Laboratory - Chemistry and C hemistry - challengeon 10-19-2024 Glucose [Mass/Vol] 157 mg/dL High 70 - 100 mg/dL [facility] Glucose [Mass/Vol] 105 mg/dL High 70 - 100 mg/dL [facility] Glucose [Mass/Vol] 93 mg/dL 70 - 100 mg/dL [facility] Glucose [Mass/Vol] 97 mg/dL 70 - 100 mg/dL [facility] Glucose [Mass/Vol] mg/dL Low 70 - 100 mg/dL [facility] Comment on above: Caregiver Notified; Average glucose Estimated from glycated hemoglobin (Bld) [Mass/Vol] 263 mg/dL [facility] Glucose [Mass/Vol] 94 mg/dL 70 - 100 mg/dL [facility] Magnesium [Mass/Vol] 1.8 mg/dL 1.6 - 2 .6 mg/dL [facility] Glucose [Mass/Vol] 57 mg/dL Low 70 - 100 mg/dL [facility] Glucose [Mass/Vol] mg/dL Low 70 - 100 mg/dL [facility] Comment on above: Caregiver Notified; Laboratory - Hematology and Cell countson 10-19-2024 HbA1c (Bld) [Mass fraction] 10.8 % High NINF [facility] Comment on above: Normal less than 5.7 % Prediabetes 5.7% to 6.4% Diabetes 6.5% or higher --HgbA1C levels may not be accurate in patients who have renal disease, received recent blood transfusions, are anemic, or who have dyshemoglobinemia. MAGNESIUMon 10-19-2024 Magnesium [Mass/Vol] 1.8 mg/dL Normal 1.6-2.6 [facility] Comment on above: Result Comment: CHERISE Morrison COMMENTS:Higher values can be expected in females during menses. Performed By: #### L AB103, LAB17 ####Fisher Mussel: NOA PRYOR ([id number])[facility] ([facility])[address] [place] [address] Magnesium [Mass/Vol]on 10-19 Interpretation and review of laboratory results Normal [facility] Higher values can be expected in females during menses. [facility] [employer] [facility] [employer] No Panel Informationon 10-19 Interpretation and review of laboratory results Abnormal [facility] [employer] Performed by: [facility] [facility], [address] [place] [address] CLIA ID: [id number] [facility] [employer] [facility] Interpretation and review of laboratory results Abnormal [facility] [employer] Performed by: [facility], [address] [place] [address] CLIA ID: [id number] [facility] [employer] [facility] Interpretation and review of laboratory results Normal [facility] [employer] Performed by: [facility], [address] [place] [address] CLIA ID: [id number] [facility] [employer] Interpretation and review of laboratory results Normal [facility] Performed by: [facility], [address] [place] [address] CLIA ID: [id number] [facility] [employer] [facility] [employer] Interpretation and review of laboratory results Abnormal [facility] Performed by: [facility], [address] [place] [address] CLIA ID: [id number] [facility] [employer] [facility] Interpretation and review of laboratory results Abnormal [facility] HbA1c values of 5.7- 6.4 percent indicate an increased risk for developing diabetes mellitus. HbA1c values greater than or equal to 6.5 percent are diagnostic of diabetes mellitus. For diagnosis of diabetes in individuals without unequivocal hyperglycemia, results should be confirmed by repeat testing. [facility] [employer] [facility] Interpretation and review of laboratory results Normal [facility] Performed by: [facility], [address] [place] [address] CLIA ID: [id number] [facility] [employer] [facility] Interpretation and review of laboratory results Abnormal [facility] Performed by: [facility], [address] [place] [address] CLIA ID: [id number] [facility] [employer] [facility] Interpretation and review of laboratory results Abnormal [facility] Performed by: [facility], [address] [place] [address] CLIA ID: [id number] [facility] Sinus rhythm Short NC interval Left axis deviation Electronically Signed On 10-19-2024 01:47:54 EST by Marbin Ambrose CV Marbin Martinez MD - 10/19/2024 IMPRESSION: Sinus rhythm Short NC interval Left axis deviation Electronically Signed On 10-19-2024 01:47:54 EST by Marbin Ambrose [facility] [employer] No Panel InformationOrdered By: Marbin Ambrose on 10-19-2024 P [place] 0 degrees [facility] [employer] Work Phone: NC Interval 78 ms [facility] Work Phone: QRS [place] -37 degrees [facility] [employer] Work Phone: QRSD Interval 97 ms [facility] [employer] Work Phone: QT Interval 433 ms [facility] [employer] Work Phone: QTC Interval 433 ms [employer] Work Phone: T Wave [place] 35 degrees [employer] Work Phone: [employer] Work Phone: Progress Noteon 10-19-2024 Progress Note Normal [employer] [facility] Progress Note Normal [employer] [facility] Vital signsOrdered By: Sukhdeep Ambrose on 10-19-2024 Heart rate 60 /min bpm [employer] Work Phone: CBC W Auto Differential pane l (Bld)on 10-18-2024 Basophils (Bld) [#/Vol] 0 10*3/uL 0.0 - 0.2 10*3/uL [employer] Basophils/100 WBC (Bld) 0.3 % 0.0 - 2.0 % [employer] Eosinophils (Bld) [#/Vol] 0 10*3/uL 0.0 - 0.5 10*3/uL [employer] Eosinophils/100 WBC (Bld) 0.2 % 0.0 - 6.0 % [employer] Erythrocyte distribution width (RBC) [Ratio] 12.5 % 11.5 - 15.0 % [employer] Hematocrit (Bld) [Volume fraction] 41.5 % 35.0 - 47.0 % [employer] Hemoglobin (Bld) [Mass/Vol] 13.6 g/dL 11.7 - 16.0 g/dL [employer] Immature granulocytes (Bld) [#/Vol] 0.1 10*3/uL High NINF - 0.1 10*3/uL [employer] Immature granulocytes/100 WBC (Bld) 1 % 0.0 - 2.0 % [employer] Interpretation and review of laboratory results Abnormal [employer] Lymphocytes (Bld) [#/Vol] 1.4 10*3/uL 1.0 - 4.3 10*3/uL [employer] Lymphocytes/100 WBC (Bld) 14 % Low 15.0 - 45.0 % [employer] MCH (RBC) [Entitic mass] 29.5 pg 26.0 - 34.0 pg [employer] MCHC (RBC) [Mass/Vol] 32.8 % 30.5 - 36.0 % [facility] MCV (RBC) [Entitic vol] 90 fL 77.0 - 99.0 fL [facility] [employer] Monocytes (Bld) [#/Vol] 0.4 10*3/uL 0.0 - 0.9 10*3/uL [facility] Monocytes/100 WBC (Bld) 4.2 % Low 5.0 - 13.0 % [facility] Neutrophils (Bld) [#/Vol] 8.2 10*3/uL High 1.8 - 7.5 10*3/uL [facility] Neutrophils/100 WBC (Bld) 80.3 % 38.0 - 82.0 % [facility] Nucleated RBC/100 WBC (Bld) [Ratio] 0 % [facility] [employer] Platelet mean volume (Bld) [Entitic vol] 9.6 fL 9.0 - 12.7 fL [facility] Platelets (Bld) [#/Vol] 241 10*3/uL 140 - 440 10*3/uL [facility] RBC (Bld) [#/Vol] 4.61 10*6/uL 3.80 - 5.2 0 10*6/uL [facility] WBC (Bld) [#/Vol] 10.2 10*3/uL 3.6 - 10.7 10*3/uL [facility] CBC WITH AUTO DIFFERENTIALon 10-18-2024 Basophils (Bld) [#/Vol] 0.0 10*3/uL Normal 0.0-0.2 [facility] Comment on above: Performed By: #### L [id number] ####Fisher Mussel: NOA PRYOR ([id number])[address] Basophils/100 WBC (Bld) 0.3 % Normal 0.0-2.0 [facility] Comment on above: Performed By: #### L [id number] ####Fisher Mussel: NOA PRYOR ([id number])[facility])[address] [place] [address] Eosinophils (Bld) [#/Vol] 0.0 10*3/uL Normal 0.0-0.5 [facility] Comment on above: Performed By: #### L [id number] ####Fisher Mussel: NOA PRYOR ([id number])[facility])[address] [place] [address] Eosinophils/100 WBC (Bld) 0.2 % Normal 0.0-6.0 [facility] Comment on above: Performed By: #### L [id number] ####Fisher Mussel: NOA PRYOR ([id number])[facility])[address] [place] [address] Erythrocyte distribution width (RBC) [Ratio] 12.5 % Normal 11.5-15.0 [facility] Comment on above: Performed By: #### L [id number] ####Fisher Mussel: NOA PRYOR ([id number])[facility])[address] [place] [address] Hematocrit (Bld) [Volume fraction] 41.5 % Normal 35.0-47.0 [facility] Comment on above: Performed By: #### L [id number] ####Fisher Mussel: NOA PRYOR ([id number])[facility])[address] [place] [address] Hemoglobin (Bld) [Mass/Vol] 13.6 g/dL Normal 11.7-16.0 [facility] Comment on above: Performed By: #### L [id number] ####Fisher Mussel: NOA PRYOR ([id number])[facility])[address] [place] [address] IMMATURE GRANS % 1.0 % Normal 0.0-2.0 [facility] Comment on above: Performed By: #### L [id number] ####Fisher Mussel: NOA PRYOR ([id number])[facility])[address] [place] [address] IMMATURE GRANS ABSOLUTE 0.1 10*3/uL High <0.1 [facility] Comment on above: Performed By: #### L [id number] ####Fisher Mussel: NOA PRYOR ([phone])[facility])[address] [place] [address] [place] Lymphocytes (Bld) [#/Vol] 1.4 10*3/uL Normal 1.0-4.3 [facility] Comment on above: Performed By: #### L [id number] ####Fisher Mussel: NAO PRYOR ([phone])[facility])[address] [place] [address] Lymphocytes/100 WBC (Bld) 14.0 % Low 15.0-45.0 [facility] Comment on above: Performed By: #### L [id number] ####Fisher Mussel: NOA PRYOR ([id number])[facility])[address] [place] [address] MCH (RBC) [Entitic mass] 29.5 pg Normal 26.0-34.0 [facility] Comment on above: Performed By: #### L [id number] ####Fisher Mussel: NOA PRYOR ([id number])[facility])[address] [place] [address] MCHC 32.8 % Normal 30.5-36.0 [facility] Comment on above: Performed By: #### L [id number] ####Fisher Mussel: NOA PRYOR ([id number])[facility])[address] [place] [address] MCV (RBC) [Entitic vol] 90.0 fL Normal 77.0-99.0 S [facility] Comment on above: Performed By: #### L [id number] ####Fisher Mussel: NOA PRYOR ([id number])[facility])[address] [place] [address] Monocytes (Bld) [#/Vol] 0.4 10*3/uL Normal 0.0-0.9 [facility] Comment on above: Performed By: #### L [id number] ####Fisher Mussel: NOA PRYOR ([phone])[facility])[address] [place] [address] Monocytes/100 WBC (Bld) 4.2 % Low 5.0-13.0 [facility] Comment on above: Performed By: #### L [id number] ####Fisher Mussel: NOA PRYOR ([phone])[facility] ([facility])[address] [place] [address] NEUTROPHILS ABSOLUTE 8.2 10*3/uL High 1.8-7.5 [facility] Comment on above: Performed By: #### L [id number] ####Fisher Mussel: NOA PRYOR ([phone])[facility] ([facility])[address] [place] [address] Neutrophils/100 WBC (Bld) 80.3 % Normal 38.0-82.0 [facility] Comment on above: Performed By: #### L [id number] ####Fisher Mussel: NOA PRYOR ([phone])[facility] ([facility])[address] [place] [address] NRBC 0.0 /100 WBCs Normal 0.0-2.0 [facility] Comment on above: Performed By: #### L [id number] ####Fisher Mussel: NOA PRYOR ([id number])[facility] ([facility])[address] [place] [address] Platelet mean volume (Bld) [Entitic vol] 9.6 fL Normal 9.0-12.7 [facility] Comment on above: Performed By: #### L [id number] ####Fisher Mussel: NOA PRYOR ([id number])[facility] ([facility])[address] [place] [address] Platelets (Bld) [#/Vol] 241 10*3/uL Normal 140-440 [facility] Comment on above: Performed By: #### L [id number] ####Fisher Mussel: NOA PRYOR ([id number])[facility] ([facility])[address] [place] [address] RBC (Bld) [#/Vol] 4.61 10*6/uL Normal 3.80-5.20 [facility] Comment on above: Performed By: #### L [id number] ####Fisher Mussel: NOA PRYOR ([id number])[facility])[address] [place] [address] WBC (Bld) [#/Vol] 10.2 10*3/uL Normal 3.6-10.7 [facility] Comment on above: Performed By: #### L [id number] ####Fisher Mussel: NOA PRYOR ([id number])[facility])[address] [place] [address] COMPLETE URINALYSISon 2024 BACTERIA (#/HPF) IN URINE Few Abnormal Negative [facility] Comment on above: Performed By: #### L [id number], [id number] ####Fisher Mussel: NOA PRYOR ([id number])[facility] ([facility])[address] [place] [address] BILIRUBIN, TOTAL PRESENCE IN URINE Negative Normal Negative [facility] Comment on above: Performed By: #### Claribel AB239, [id number] ####Fisher Mussel: NOA PRYOR ([id number])[facility] ([facility])[address] [place] [address] Clarity (U) Turbid Abnormal Clear [facility] Comment on above: Performed By: #### L [id number], [id number] ####Fisher Mussel: NOA PRYOR ([id number])[facility] ([facility])[address] [place] [address] Color (U) Yellow Normal Lt. Yellow [facility] Comment on above: Performed By: #### L [id number], [id number] ####Fisher Mussel: NOA PRYOR ([id number])[facility] ([facility])[address] [place] [address] Glucose (U) [Mass/Vol] 500 mg/dL Abnormal Estrella l (<70) [facility] Comment on above: Performed By: #### L [id number], [id number] ####Fisher Mussel: NOA PRYOR ([id number])[facility] ([facility])[address] [place] [address] HEMOGLOBIN PRESENCE IN URINE Negative Normal Negative [facility] Comment on above: Performed By: #### L [id number], [id number] ####Fisher Mussel: NOA PRYOR ([id number])[facility] ([facility])[address] [place] [address] Ketones Ql (U) Negative Normal Negative [facility] Comment on above: Performed By: #### L [id number], [id number] ####Fisher Mussel: NOA PRYOR ([id number])[facility] ([facility])[address] [place] [address] LEUKOCYTE ESTERASE PRESENCE IN URINE BY TEST STRIP 500 Veronica/uL Abnormal Negative [facility] Comment on above: Performed By: #### L [id number], [id number] ####Fisher Mussel: NOA PRYOR ([id number])[facility] ([facility])[address] [place] [address] NITRITE PRESENCE IN URINE Positive Abnormal Negative [facility] Comment on above: Performed By: #### L [id number], [id number] ####Fisher Mussel: NOA PRYOR ([phone])[facility] ([facility])[address] [place] [address] pH (U) 6.5 [pH] Normal 5.0-8.0 [facility] Comment on above: Performed By: #### L [id number], [id number] ####Fisher Mussel: NOA PRYOR ([id number])[facility] ([facility])[address] [place] [address] Protein (U) [Mass/Vol] 50 mg/dL Abnormal Negative [facility] Comment on above: Performed By: #### L [id number], [id number] ####Fisher Mussel: NOA PRYOR ([id number])[facility] ([facility])[address] [place] [address] [place] RBC (#/HPF) IN URINE SEDIMENT 3-5 Abnormal 0-2 [facility] Comment on above: Performed By: #### L [id number], [id number] ####Fisher Mussel: NOA PRYOR ([id number])[facility] ([facility])[address] [place] [address] Specific gravity (U) [Rel density] 1.019 Normal 1.005-1.030 [facility] Comment on above: Performed By: #### Claribel AB239, [id number] ####Fisher Mussel: NOA PRYOR ([id number])[facility])[address] [place] [address] SQUAMOUS EPITHELIAL CELLS (#/HPF) IN URINE SEDIMENT 0-2 Normal 3-5 [facility] Comment on above: Performed By: #### Claribel AB239, [id number] ####Fisher [employer]: NOA PRYOR ([id number])[facility])[address] [place] [address] UROBILINOGEN (MG/DL) IN URINE Normal Normal Normal (0-1) [facility] Comment on above: Performed By: #### Claribel AB239, [id number] ####Fisher Mussel: NOA PRYOR ([id number])[facility])[address] [place] [address] WBC (LEUKOCYTE) (#/HPF) IN URINE SEDIMENT >100 Abnormal 0-5 [facility] Comment on above: Performed By: #### Claribel AB239, [id number] ####Fisher Mussel: NOA PRYOR ([id number])[facility])[address] [place] [address] COMPREHENSIVE METABOLIC PANE Satnam 10-18-2024 Albumin [Mass/Vol] 3.2 g/dL Low 3.4-4.8 [facility] Comment on above: Performed By: #### L [id number], [id number] ####Fisher Mussel: NOA PRYOR ([id number])[facility])[address] [place] [address] ALP [Catalytic activity/Vol] 43 U/L Normal 40-150 [facility] Comment on above: Performed By: #### L [id number], [id number] ####Fisher Mussel: NAO PRYOR ([id number])[facility])[address] [place] [address] ALT [Catalytic activity/Vol] 8 U/L Normal <30 [facility] Comment on above: Performed By: #### L [id number], [id number] ####Fisher Mussel: NOA PRYOR ([id number])[facility] ([facility])[address] [place] [address] Anion gap [Moles/Vol] 8 mmol/L Normal 3-13 [facility] Comment on above: Performed By: #### L [id number], [id number] ####Fisher Mussel: NOA PRYOR ([id number])[facility] ([facility])[address] [place] [address] AST [Catalytic activity/Vol] 16 U/L Normal <34 [facility] Comment on above: Performed By: #### L [id number], [id number] ####Fisher Mussel: NOA PRYOR ([phone])[facility] [place] ([facility])[address] [place] [address] Bilirubin [Mass/Vol] 0.2 mg/dL Normal <1.2 [facility] Comment on above: Performed By: #### L [id number], [id number] ####Fisher Mussel: NOA PRYOR ([phone])[facility] [place] ([facility])[address] [place] [address] Calcium [Mass/Vol] 9.4 mg/dL Normal 8.8-10.0 [facility] Comment on above: Performed By: #### L [id number], [id number] ####Fisher Mussel: NOA PRYOR ([phone])[facility] ([facility])[address] [place] [address] [place] Chloride [Moles/Vol] 105 mmol/L Normal 98-107 [facility] Comment on above: Performed By: #### L [id number], [id number] ####Fisher Mussel: NOA PRYOR ([id number])[facility] ([facility])[address] [place] [address] CO2 [Moles/Vol] 26 mmol/L Normal 23-31 [facility] Comment on above: Performed By: #### L [id number], [id number] ####Fisher Mussel: NOA PRYOR ([phone])[facility] ([facility])[address] [place] [address] Creatinine [Mass/Vol] 0.82 mg/dL Normal 0.57-1.11 [facility] Comment on above: Performed By: #### L [id number], [id number] ####Fisher Mussel: NOA PRYOR ([phone])[facility])[address] [place] [address] [place] GLOMERULAR FILTRATION RATE ML/MIN/1.73 SQ M.PREDICTED 73.8 mL/min/1.73m*2 Normal >60.0 [facility] Comment on above: Result Comment: Calc ulation based on the Chronic Kidney Disease Epidemiology Collaboration (CKD-EPI) equation refit without adjustment for race Performed By: #### L [id number], [id number] ####Fisher Mussel: NOA PRYOR ([phone])[facility])[address] [place] [address] Glucose [Mass/Vol] 64 mg/dL Low 82-115 [facility] Comment on above: Performed By: #### L [id number], [id number] ####Fisher Mussel: NOA PRYOR ([phone])[address] Potassium [Moles/Vol] 3.4 mmol/L Low 3.5-5.1 [facility] Comment on above: Result Comment: [facility] potassium values may be up to 0.5 mmol/L lower than serum values. Performed By: #### L [id number], [id number] ####Fisher Mussel: NOA PRYOR ([phone])[facility])[address] [place] [address] Protein [Mass/Vol] 6.0 g/dL Low 6.4-8.3 [facility] Comment on above: Performed By: #### L [id number], [id number] ####Fisher Mussel: NOA PRYOR ([id number])[facility])[address] [place] [address] Sodium [Moles/Vol] 139 mmol/L Normal 136-145 [facility] Comment on above: Performed By: #### L [id number], [id number] ####Fisher Mussel: NOA PRYOR ([phone])[facility] ([facility])[address] [place] [address] Urea nitrogen [Mass/Vol] 20 mg/dL Normal 9-23 [facility] Comment on above: Performed By: #### L [id number], [id number] ####Fisher Mussel: NOA PRYOR ([id number])[facility] ([facility])[address] [place] [address] CT CERVICAL SPINE WO IV CONT RASTon 10-18-2024 CT CERVICAL SPINE WO IV CONTRAST Normal [facility] CT Cervical spine WO contras ton 10-18-2024 No fracture or traumatic malalignment. Multilevel cervical spondylosis. Estimated moderate spinal stenosis at C4-5. Report Dictated on Electronically Signed By: Mónica Ly MD Electronically Signed Date/Time: 10/18/2024 8:27 PM EST [facility] [facility] Patient Name: BEVERLY SEE : 1945 Exam Date/Time: 10/18/2024 19:39 Procedure: CT CERVICAL SPINE WO IV CONTRAST Ordering Provider: MARIE TYLER Reason For Exam: possible fall EXAMINATION: CT CERVICAL SPINE WO IV CONTRAST CLINICAL HISTORY: possible fall COMPARISON: None TECHNIQUE: Thin isotropic axial images were obtained from the skull base to the upper thoracic spine without intravenous contrast. Dose reduction was employed with automated exposure control. FINDINGS: Craniocervical Junction: Ganglion cyst in the odontoid process of C2. Degenerative changes of the atlantodental and atlantoaxial joints. Alignment: No traumatic malalignment. Vertebrae: No acute fracture or traumatic malalignment. No aggressive osseous lesions. Severe intervertebral disc height loss with endplate spurring at multiple levels, most pronounced C4. Soft Tissues: No acute abnormality. There are atherosclerotic calcifications at the carotid bifurcations. Canal and Foramina: Estimated moderate spinal stenosis at C4-5 and mild spinal stenosis at other levels. [facility] Mónica Ly M D - 10/18/2024 Patient Name: BEVERLY AGEE : 1945 Exam Date/Time: 10/18/2024 19:39 Procedure: CT CERVICAL SPINE WO IV CONTRAST Ordering Provider: MARIE TYLER Reason For Exam: possible fall EXAMINATION: CT CERVICAL SPINE WO IV CONTRAST CLINICAL HISTORY: possible fall COMPARISON: None TECHNIQUE: Thin isotropic axial images were obtained from the skull base to the upper thoracic spine without intravenous contrast. Dose reduction was employed with automated exposure control. FINDINGS: Craniocervical Junction: Ganglion cyst in the odontoid process of C2. Degenerative changes of the atlantodental and atlantoaxial joints. Alignment: No traumatic malalignment. Vertebrae: No acute fracture or traumatic malalignment. No aggressive osseous lesions. Severe intervertebral disc height loss with endplate spurring at multiple levels, most pronounced C4. Soft Tissues: No acute abnormality. There are atherosclerotic calcifications at the carotid bifurcations. Canal and Foramina: Estimated moderate spinal stenosis at C4-5 and mild spinal stenosis at other levels. IMPRESSION: No fracture or traumatic malalignment. Multilevel cervical spondylosis. Estimated moderate spinal stenosis at C4-5. Report Dictated on Electronically Signed By: Mónica Ly MD Electronically Signed Date/Time: 10/18/2024 8:27 PM [facility] CT HEAD WO IV CONTRASTon CT HEAD WO IV CONTRAST Normal [facility] CT Head WO contraston 2024 No intracranial traumatic injuries. Report Dictated on Electronically Signed By: Mónica Ly MD Electronically Signed Date/Time: 10/18/2024 8:29 PM [facility] Patient Name: BEVERLY SEE : 1945 Exam Date/Time: 10/18/2024 19:39 Procedure: CT HEAD WO IV CONTRAST Ordering Provider: MARIE TYLER Reason For Exam: possible fall CT HEAD WITHOUT CONTRAST CLINICAL HISTORY: possible fall COMPARISON: 11/29/2019 TECHNIQUE: Helical CT of the brain without contrast. Dose reduction was employed with automated exposure control. FINDINGS: Acute Findings: No hemorrhage, mass, or infarct. Chronic Changes: Scattered patchy foci of white matter hypoattenuation, most likely mild chronic microvascular ischemic changes. Ventricles and sulci: Moderate generalized brain parenchymal volume loss with proportionate ventricular enlargement. Other: The skull, included paranasal sinuses and orbits are normal. [facility] Mónica Ly M D - 10/18/2024 Patient Name: BEVERLY AGEE : 1945 Exam Date/Time: 10/18/2024 19:39 Procedure: CT HEAD WO IV CONTRAST Ordering Provider: MARIE TYLER Reason For Exam: possible fall CT HEAD WITHOUT CONTRAST CLINICAL HISTORY: possible fall COMPARISON: 11/29/2019 TECHNIQUE: Helical CT of the brain without contrast. Dose reduction was employed with automated exposure control. FINDINGS: Acute Findings: No hemorrhage, mass, or infarct. Chronic Changes: Scattered patchy foci of white matter hypoattenuation, most likely mild chronic microvascular ischemic changes. Ventricles and sulci: Moderate generalized brain parenchymal volume loss with proportionate ventricular enlargement. Other: The skull, included paranasal sinuses and orbits are normal. IMPRESSION: No intracranial traumatic injuries. Report Dictated on Electronically Signed By: Mónica Ly MD Electronically Signed Date/Time: 10/18/2024 8:29 PM EST [facility] [employer] CT Head WO contrastOrdered B y: Mónica Ly on 10-18-2024 [facility] [employer] Work Phone: Comprehensive metabolic 1998 panelon 10-18-2024 Albumin [Mass/Vol] 3.2 g/dL Low 3.4 - 4.8 g/dL [facility] [employer] ALP [Catalytic activity/Vol] 43 U/L 40 - 150 U/L [facility] [employer] ALT [Catalytic activity/Vol] 8 U/L NINF - 30 U/L [facility] Anion gap [Moles/Vol] 8 mmol/L 3 - 13 mmol/L [facility] AST [Catalytic activity/Vol] 16 U/L NINF - 34 U/L [facility] Bilirubin [Mass/Vol] 0.2 mg/dL NINF - 1.2 mg/dL [facility] Calcium [Mass/Vol] 9.4 mg/dL 8.8 - 10. 0 mg/dL [facility] Chloride [Moles/Vol] 105 mmol/L 98 - 10 7 mmol/L [facility] CO2 [Moles/Vol] 26 mmol/L 23 - 31 mmol/L [facility] Creatinine [Mass/Vol] 0.82 mg/dL 0.57 - 1.11 mg/dL [facility] GFR/1.73 sq M.predicted (S/P/Bld) [Vol rate/Area] 73.8 mL/min - PINF [facility] Comment on above: Calculation based on the Chronic Kidney Disease Epidemiology Collaboration (CKD-EPI) equation refit without adjustment for race Glucose [Mass/Vol] 64 mg/dL Low 82 - 115 mg/dL [facility] Interpretation and review of laboratory results Abnormal [facility] Potassium [Moles/Vol] 3.4 mmol/L Low 3.5 - 5.1 mmol/L [facility] Comment on above: Plasma potassium ayesha ues may be up to 0.5 mmol/L lower than serum values. Protein [Mass/Vol] 6 g/dL Low 6.4 - 8.3 g/dL [facility] Sodium [Moles/Vol] 139 mmol/L 136 - 145 mmol/L [facility] Urea nitrogen [Mass/Vol] 20 mg/dL 9 - 23 mg/dL [facility] ED Nursing Noteon 10-18-2024 ED Nursing Note Pt being transported to . No signs of distress, bilateral breaths unlabored. Pt belongings with pt. Normal [facility] ED Nursing Note Pt in for transport to 5N Normal [facility] ED Nursing Note Pt in CT Normal [facility] ED Provider Noteon ED Provider Note Normal [facility] HIGH SENSITIVITY TROPONIN, S ERIAL BASELINEon 10-18-2024 TROPONIN HS SERIAL BASELINE 4 ng/L Normal <=14 [facility] Comment on above: Result Comment: In i ndividuals presenting with symptoms > 2h, a baseline troponin <= 5 ng/L suggests acutecardiac injury is unlikely and further serial testing is generally not indicated. Performed By: #### L [id number], [id number] ####Fisher Mussel: NOA PRYOR ([phone])[facility] [place] [address] HIGH SENSITIVITY TROPONIN, S ERIAL, SECOND TESTon 10-18-2024 2H TROPONIN HS (SERIAL 2ND TROPONIN) 6 ng/L Normal <=14 [facility] Comment on above: Result Comment: Risi ng or falling troponin delta below 2 ng/L as compared to baseline value suggests thatacute cardiac injury is unlikely. Performed By: #### L [id number] ####Fisher Mussel: NOA PRYOR ([id number])[facility] ([facility])[address] [place] [address] HIGH SENSITIVITY TROPONIN, S ERIAL, THIRD TESTon 10-18-2024 4H TROPONIN HS (SERIAL 3RD TROPONIN) 8 ng/L Normal <=14 [facility] Comment on above: Result Comment: Risi ng or falling troponin delta below 2 ng/L as compared to 2h troponin value suggeststhat acute cardiac injury is unlikely. Performed By: #### L [id number] ####Fisher Mussel: NOA PRYOR ([phone])[facility] ([facility])[address] [place] [address] Laboratory - Chemistry and C hemistry - challengeon 10-18-2024 Glucose [Mass/Vol] 60 mg/dL Low 70 - 100 mg/dL [facility] [employer] Glucose [Mass/Vol] 104 mg/dL High 70 - 100 mg/dL [facility] Glucose [Mass/Vol] 71 mg/dL 70 - 100 mg/dL [facility] Glucose [Mass/Vol] 296 mg/dL High 70 - 100 mg/dL [facility] [employer] No Panel Informationon 10-18 4h Troponin HS (Serial 3rd Troponin) 8 ng/L NINF - 14 ng/L [facility] Comment on above: Rising or falling tr oponin delta below 2 ng/L as compared to 2h troponin value suggests that acute cardiac injury is unlikely. Interpretation and review of laboratory results Normal [facility] Interpretation and review of laboratory results Abnormal [facility] Performed by: [facility], [address] [place] [address] CLIA ID: [id number] [facility] Interpretation and review of laboratory results Abnormal [facility] Performed by: [facility], [address] [place] [address] CLIA ID: [id number] [facility] 2h Troponin HS (Serial 2nd Troponin) 6 ng/L NINF - 14 ng/L [facility] Comment on above: Rising or falling tr oponin delta below 2 ng/L as compared to baseline value suggests that acute cardiac injury is unlikely. Interpretation and review of laboratory results Normal [facility] Interpretation and review of laboratory results Normal [facility] Troponin HS Serial Baseline 4 ng/L NINF - 14 ng/L [facility] Comment on above: In individuals prese nting with symptoms > 2h, a baseline troponin <= 5 ng/L suggests acute cardiac injury is unlikely and further serial testing is generally not indicated. [facility] Interpretation and review of laboratory results Normal [facility] Interpretation and review of laboratory results Abnormal [facility] Performed by: [facility], [address] [place] [address] CLIA ID: [id number] [facility] Radiology Study observation (narrative) [facility] URINE CULTUREon 10-18-2024 Bacteria identified Cx Nom (U) Normal [facility] Comment on above: Performed By: #### L [id number] ####Fisher Mussel: NOA PRYOR ([id number])[facility] ([facility])[address] [place] [address] Urinalysis complete panel (U )Ordered By: Radha Santizo on 10-18-2024 Bacteria LM.HPF (Urine sed) [#/Area] Few Abnormal Negative /HPF [facility] Bilirubin Ql (U) Negative Negative mg/dL [facility] Clarity (U) Turbid Abnormal Clear [facility] Color (U) Yellow Lt. Yellow [facility] Epithelial cells.squamous LM.HPF (Urine sed) [#/Area] 0-2 [facility] Glucose Ql (U) 500 mg/dL Abnormal Normal (<70) [facility] Hemoglobin Ql (U) Negative Negative mg/dL [facility] Interpretation and review of laboratory results Abnormal [facility] Ketones (U) [Mass/Vol] Negative Negat estrella mg/dL [facility] Leukocyte esterase Test strip Ql (U) 500 Abnormal Negative Veronica/uL [facility] Nitrite Ql (U) Positive Abnormal Negative [facility] pH (U) 6.5 [pH] 5.0 - 8.0 pH [facility] Protein (U) [Mass/Vol] 50 mg/dL Abnormal Negative [facility] RBC LM.HPF (Urine sed) [#/Area] 3-5 Abnormal [facility] Specific gravity (U) [Rel density] 1.019 1.005 - 1.030 [facility] Urobilinogen (U) [Mass/Vol] Normal Normal (0-1) mg/dL [facility] WBC LM.HPF (Urine sed) [#/Area] /[HPF] Abnormal [facility] No Panel Informationon 02-21 Radiology Study observation (narrative) [facility] XR Hand - right 3 Viewson * Mild generalized osteopenia. * Moderate to severe osteoarthritic changes involving all the interphalangeal joints manifested by joint space narrowing and marginal spur formation. * Severe osteoarthritic changes of the first carpal metacarpal joint with joint space narrowing and marginal spur formation as well as extensive hypertrophic bone changes * No acute or destructive osseous process. * Unremarkable soft tissues. Report Dictated on Electronically Signed By: Josy Kumar MD Electronically Signed Date/Time: 02/22/2024 4:50 PM EDT [facility] Patient Name: BEVERLY SEE : 1945 Exam Date/Time: 02/22/2024 16:08 Procedure: XR HAND 3+ VIEWS RIGHT Ordering Provider: IQBAL JOSEPH Reason For Exam: [id number] EXAMINATION: XR HAND 3+ VIEWS RIGHT CLINICAL HISTORY: Right hand pain COMPARISON: None TECHNIQUE: XR HAND 3+ VIEWS RIGHT [facility] Josy Kumar MD - 02/22/2024 Patient Name: BEVERLY AGEE : 1945 Exam Date/Time: 02/22/2024 16:08 Procedure: XR HAND 3+ VIEWS RIGHT Ordering Provider: IQBAL JOSEPH Reason For Exam: [id number] EXAMINATION: XR HAND 3+ VIEWS RIGHT CLINICAL HISTORY: Right hand pain COMPARISON: None TECHNIQUE: XR HAND 3+ VIEWS RIGHT IMPRESSION: * Mild generalized osteopenia. * Moderate to severe osteoarthritic changes involving all the interphalangeal joints manifested by joint space narrowing and marginal spur formation. * Severe osteoarthritic changes of the first carpal metacarpal joint with joint space narrowing and marginal spur formation as well as extensive hypertrophic bone changes * No acute or destructive osseous process. * Unremarkable soft tissues. Report Dictated on Electronically Signed By: Josy Kumar MD Electronically Signed Date/Time: 02/22/2024 4:50 PM EDT [employer] XR Hand - right 3 ViewsOrder ed By: Josy Kumar on 02-22-2024 [employer] Work Phone: XR Shoulder - right 2 Viewso n 02-22-2024 * Mild generalized osteopenia. * Severe osteoarthritic changes of the glenohumeral joint and moderate osteoarthritic changes of the acromioclavicular joint. * Narrowing of the subacromial space with calcifications in the region of the rotator cuff compatible with rotator cuff disease and rotator cuff tendinopathy. * No acute or destructive osseous process. * Changes related to remote ORIF of multiple right-sided ribs. * Degenerative changes of the spine. Report Dictated on Electronically Signed By: Josy Kumar MD Electronically Signed Date/Time: 02/22/2024 4:49 PM EDT [facility] 1945 [id number] Exam Date/Time: 02/22/2024 16:08 Procedure: XR SHOULDER 2+ VIEWS RIGHT Ordering Provider: IQBAL JOSEPH Reason For Exam: [id number] EXAMINATION: XR SHOULDER 2+ VIEWS RIGHT CLINICAL HISTORY: Pain in right shoulder. COMPARISON: None TECHNIQUE: XR SHOULDER 2+ VIEWS [facility] Josy Kumar MD - 02/22/2024 Patient Name: BEVERLY AGEE : 1945 [facility]#: [id number] Exam Date/Time: 02/22/2024 16:08 Procedure: XR SHOULDER 2+ VIEWS RIGHT Ordering Provider: IQBAL JOSEPH Reason For Exam: [id number] EXAMINATION: XR SHOULDER 2+ VIEWS RIGHT CLINICAL HISTORY: Pain in right shoulder. COMPARISON: None TECHNIQUE: XR SHOULDER 2+ VIEWS RIGHT IMPRESSION: * Mild generalized osteopenia. * Severe osteoarthritic changes of the glenohumeral joint and moderate osteoarthritic changes of the acromioclavicular joint. * Narrowing of the subacromial space with calcifications in the region of the rotator cuff compatible with rotator cuff disease and rotator cuff tendinopathy. * No acute or destructive osseous process. * Changes related to remote ORIF of multiple right-sided ribs. * Degenerative changes of the spine. Report Dictated on Electronically Signed By: Josy Kumar MD Electronically Signed Date/Time: 02/22/2024 4:49 PM EDT [facility] Laboratory - Chemistry and C hemistry - challengeon 01-15-2024 Glucose [Mass/Vol] 107 mg/dL High 70 - 100 mg/dL [facility] [employer] Glucose [Mass/Vol] 101 mg/dL High 70 - 100 mg/dL [facility] [employer] No Panel Informationon 01-14 Interpretation and review of laboratory results Abnormal [facility] [employer] Performed by: [facility], [address] [place] [address] CLIA ID: [id number] [facility] Interpretation and review of laboratory results Abnormal [facility] Performed by: [facility], [address] [place] [address] CLIA ID: [id number] [facility] Radiology Study observation (narrative) [facility] Radiology Study observation (narrative) [facility] Laboratory - Chemistry and C hemistry - challengeon 01-14-2024 Glucose [Mass/Vol] 114 mg/dL High 70 - 100 mg/dL [facility] [employer] Glucose [Mass/Vol] 155 mg/dL High 70 - 100 mg/dL [facility] [employer] Glucose [Mass/Vol] 157 mg/dL High 70 - 100 mg/dL [facility] Glucose [Mass/Vol] 197 mg/dL High 70 - 100 mg/dL [facility] No Panel Informationon 01-13 Interpretation and review of laboratory results Abnormal [facility] Performed by: [facility], [address] [place] [address] CLIA ID: [id number] [facility] Interpretation and review of laboratory results Abnormal [facility] Performed by: [facility], [address] [place] [address] CLIA ID: [id number] [facility] Interpretation and review of laboratory results Abnormal [facility] Performed by: [facility], [address] [place] [address] CLIA ID: [id number] [facility] Interpretation and review of laboratory results Abnormal [facility] Performed by: [facility], [address] [place] [id number] CLIA ID: [id number] [facility] Radiology Study observation (narrative) [facility] (narrative) [facility] Bacteria identified Cx Nom ( U)Ordered By: Lori Gómez on 01-13-2024 Interpretation and review of laboratory results Abnormal [facility] Laboratory - Chemistry and C hemistry - challengeon 01-13-2024 Glucose [Mass/Vol] 122 mg/dL High 70 - 100 mg/dL [facility] Glucose [Mass/Vol] 112 mg/dL High 70 - 100 mg/dL [facility] Glucose [Mass/Vol] 129 mg/dL High 70 - 100 mg/dL [facility] Glucose [Mass/Vol] 137 mg/dL High 70 - 100 mg/dL [facility] Laboratory - Microbiology an d Antimicrobial susceptibilityOrdered By: Lori Gómez on 01-13-2024 Bacteria identified Cx Nom (U) Normal urogenital aly present [facility] Bacteria identified Cx Nom (U) >100,000 CFU/mL Escherichia coli Abnormal [facility] Panel Informationon 01-12 Interpretation and review of laboratory results Abnormal [facility] Performed by: [facility], [address] [place] [id number] CLIA ID: [id number] [facility] Interpretation and review of laboratory results Abnormal [facility] Performed by: [facility], [address] [place] [address] CLIA ID: [id number] [facility] Interpretation and review of laboratory results Abnormal [facility] Performed by: [facility], [address] [place] [address] CLIA ID: [id number] [facility] Interpretation and review of laboratory results Abnormal [facility] Performed by: [facility], [address] [place] [address] CLIA ID: [id number] [facility] Radiology Study observation (narrative) [facility] Radiology Study observation (narrative) [facility] Radiology Study observation (narrative) [facility] Radiology Study observation (narrative) [facility] Laboratory - Chemistry and C hemistry - challengeon 01-12-2024 Glucose [Mass/Vol] 193 mg/dL High 70 - 100 mg/dL [facility] Glucose [Mass/Vol] 113 mg/dL High 70 - 100 mg/dL [facility] Glucose [Mass/Vol] 120 mg/dL High 70 - 100 mg/dL [facility] Glucose [Mass/Vol] 112 mg/dL High 70 - 100 mg/dL [facility] No Panel Informationon 01-11 Interpretation and review of laboratory results Abnormal [facility] Performed by: [facility], [address] [place] [address] CLIA ID: [id number] [facility] Interpretation and review of laboratory results Abnormal [facility] Performed by: [facility], [address] [place] [id number] CLIA ID: [id number] [facility] Interpretation and review of laboratory results Abnormal [facility] Performed by: [facility], [address] [place] [id number] CLIA ID: [id number] [facility] Interpretation and review of laboratory results Abnormal [facility] Performed by: [facility], [address] [place] [id number] CLIA ID: [id number] [facility] Radiology Study observation (narrative) [facility] Radiology Study observation (narrative) [facility] Radiology Study observation (narrative) [facility] Radiology Study observation (narrative) [facility] Laboratory - Chemistry and C hemistry - challengeon 01-11-2024 Glucose [Mass/Vol] 150 mg/dL High 70 - 100 mg/dL [facility] Glucose [Mass/Vol] 209 mg/dL High 70 - 100 mg/dL [facility] Glucose [Mass/Vol] 160 mg/dL High 70 - 100 mg/dL [facility] Glucose [Mass/Vol] 132 mg/dL High 70 - 100 mg/dL [facility] Troponin I.cardiac [Mass/Vol] ng/mL NINF - 0.034 ng/mL [facility] Lactate [Moles/Vol] 1.1 mmol/L 0.7 - 2. 0 mmol/L [facility] No Panel Informationon 01-10 Interpretation and review of laboratory results Abnormal [facility] Performed by: [facility], [address] [place] [address] CLIA ID: [id number] [facility] Interpretation and review of laboratory results Abnormal [facility] Performed by: [facility], [address] [place] [id number] CLIA ID: [id number] [facility] Interpretation and review of laboratory results Abnormal [facility] Performed by: [facility], [address] [place] [id number] CLIA ID: [id number] [facility] Interpretation and review of laboratory results Abnormal [facility] Performed by: [facility], [address] [place] [id number] CLIA ID: [id number] [facility] Interpretation and review of laboratory results Normal [facility] Radiology Study observation (narrative) [facility] Radiology Study observation (narrative) [facility] Radiology Study observation (narrative) [facility] Radiology Study observation (narrative) [facility] Troponin I.cardiac [Mass/Vol ]on 01-11-2024 Interpretation and review of laboratory results Normal [facility] Patients with high levels of Biotin oral intake (ie >5 mg/day) may have falsely decreased Troponin levels. [facility] CBC W Auto Differential pane l (Bld)on 01-10-2024 Basophils (Bld) [#/Vol] 0.1 10*3/uL 0.0 - 0.2 10*3/uL [facility] Basophils/100 WBC (Bld) 0.8 % 0.0 - 2.0 % [facility] Eosinophils (Bld) [#/Vol] 0.2 10*3/uL 0.0 - 0.5 10*3/uL [facility] Eosinophils/100 WBC (Bld) 2.7 % 0.0 - 6.0 % [facility] Erythrocyte distribution width (RBC) [Ratio] 13.4 % 11.5 - 15.0 % [facility] Hematocrit (Bld) [Volume fraction] 35.6 % 35.0 - 47.0 % [facility] Hemoglobin (Bld) [Mass/Vol] 11.9 g/dL 11.7 - 16.0 g/dL [facility] Immature granulocytes (Bld) [#/Vol] 0.0 10*3/uL NINF - 0.1 10*3/uL [facility] Immature granulocytes/100 WBC (Bld) 0.5 % 0.0 - 2.0 % [facility] Interpretation and review of laboratory results Normal [facility] Lymphocytes (Bld) [#/Vol] 3.3 10*3/uL 1.0 - 4.3 10*3/uL [facility] Lymphocytes/100 WBC (Bld) 37.8 % 15.0 - 45.0 % [facility] MCH (RBC) [Entitic mass] 29.4 pg 26.0 - 34.0 pg [facility] MCHC (RBC) [Mass/Vol] 33.4 % 30.5 - 36.0 % [facility] MCV (RBC) [Entitic vol] 87.9 fL 77.0 - 99.0 fL [facility] Monocytes (Bld) [#/Vol] 0.6 10*3/uL 0.0 - 0.9 10*3/uL [facility] Monocytes/100 WBC (Bld) 7.2 % 5.0 - 13.0 % [facility] Neutrophils (Bld) [#/Vol] 4.5 10*3/uL 1.8 - 7.5 10*3/uL [facility] Neutrophils/100 WBC (Bld) 51.0 % 38.0 - 82.0 % [facility] Nucleated RBC/100 WBC (Bld) [Ratio] 0.0 % [facility] Platelet mean volume (Bld) [Entitic vol] 10.3 fL 9.0 - 12.7 fL [facility] Platelets (Bld) [#/Vol] 281 10*3/uL 140 - 440 10*3/uL [facility] RBC (Bld) [#/Vol] 4.05 10*6/uL 3.80 - 5.2 0 10*6/uL [facility] WBC (Bld) [#/Vol] 8.8 10*3/uL 3.6 - 10.7 10*3/uL [facility] Comprehensive metabolic 1998 panelon 01-10-2024 Albumin [Mass/Vol] 3.9 g/dL 3.5 - 5.0 g/dL [facility] ALP [Catalytic activity/Vol] 64 U/L 38 - 126 U/L [facility] ALT [Catalytic activity/Vol] 14 U/L 0 - 34 U/L [facility] Anion gap [Moles/Vol] 12 mmol/L 3 - 13 mmol/L [facility] AST [Catalytic activity/Vol] 22 U/L 15 - 46 U/L [facility] Bilirubin [Mass/Vol] 0.6 mg/dL 0.2 - 1 .3 mg/dL [facility] Calcium [Mass/Vol] 10.1 mg/dL 8.4 - 10. 4 mg/dL [facility] Chloride [Moles/Vol] 101 mmol/L 98 - 10 7 mmol/L [facility] CO2 [Moles/Vol] 20 mmol/L Low 22 - 30 mmol/L [facility] Creatinine [Mass/Vol] 0.78 mg/dL 0.52 - 1.04 mg/dL [facility] GFR/1.73 sq M.predicted MDRD (S/P/Bld) [Vol rate/Area] 78.8 mL/min/{1.73_m2} - PINF [facility] th Comment on above: Calculation based on the Chronic Kidney Disease Epidemiology Collaboration (CKD-EPI) equation refit without adjustment for race Glucose [Mass/Vol] 193 mg/dL High 70 - 100 mg/dL [facility] Interpretation and review of laboratory results Abnormal [facility] Potassium [Moles/Vol] 4.2 mmol/L 3.5 - 5.1 mmol/L [facility] Protein [Mass/Vol] 6.9 g/dL 6.3 - 8.2 g/dL [facility] Sodium [Moles/Vol] 132 mmol/L Low 135 - 145 mmol/L [facility] Urea nitrogen [Mass/Vol] 16 mg/dL 7 - 17 mg/dL [facility] Laboratory - Chemistry and C hemistry - challengeon 01-10-2024 Troponin I.cardiac [Mass/Vol] ng/mL NINF - 0.034 ng/mL [facility] Glucose [Mass/Vol] 199 mg/dL High 70 - 100 mg/dL [facility] Natriuretic peptide B [Mass/ Vol]on 01-10-2024 Interpretation and review of laboratory results Abnormal [facility] Natriuretic peptide B (Bld) [Mass/Vol] 1360 pg/mL High <20 - 300 [facility] No Panel Informationon 01-09 [facility] Sinus rhythm Left anterior fascicular block No significant change compared to 12/13/2023 Electronically Signed On 01-10-2024 21:40:07 EDT by Shelby Brian Shelby Garcia MD - 01/10/2024 IMPRESSION: Sinus rhythm Left anterior fascicular block No significant change compared to 12/13/2023 Electronically Signed On 01-10-2024 21:40:07 EDT by Shelby Brian [facility] Interpretation and review of laboratory results Abnormal [facility] Performed by: [facility], [address] [place] [address] CLIA ID: [id number] [facility] Radiology Study observation (narrative) Wilbert [facility] No Panel InformationOrdered By: Shelby Carr on 01-10-2024 P Gifford -30 degrees [facility] Work Phone: NC Interval 177 ms [facility] Work Phone: QRS [place] -49 degrees [facility] Work Phone: QRSD Interval 90 ms [facility] [employer] Work Phone: QT Interval 386 ms [facility] Work Phone: QTC Interval 444 ms [facility] Work Phone: T Wave [place] 58 degrees [facility] [employer] Work Phone: [facility] [employer] Work Phone: Troponin I.cardiac [Mass/Vol ]on 01-10-2024 Interpretation and review of laboratory results Normal [facility] Patients with high levels of Biotin oral intake (ie >5 mg/day) may have falsely decreased Troponin levels. [facility] Urinalysis complete panel (U )Ordered By: Dayna Garner on 01-10-2024 Bacteria LM.HPF (Urine sed) [#/Area] Moderate Abnormal Negative /HPF [facility] Bilirubin Ql (U) Negative Negative mg/dL [facility] Clarity (U) Extra Turbid Abnormal Clear [facility] h Color (U) Yellow Lt. Yellow [facility] Epithelial cells.squamous LM.HPF (Urine sed) [#/Area] Negative [facility] Gl[facility] Ql (U) Normal Normal (<70) mg/dL [facility] Hemoglobin Ql (U) 0.06 mg/dL [facility] Hyaline casts Auto (Urine sed) [#/Area] Negative Negative /LPF [facility] Interpretation and review of laboratory results Abnormal [facility] Ketones (U) [Mass/Vol] Negative Negat estrella mg/dL [facility] Leukocyte clumps LM.HPF (Urine sed) [#/Area] Many Abnormal Negative /HPF [facility] Leukocyte esterase Test strip Ql (U) 500 Abnormal Negative Veronica/uL [facility] Nitrite Ql (U) Positive Abnormal Negative [facility] th pH (U) 7.5 [pH] 5.0 - 8.0 pH [facility] Protein (U) [Mass/Vol] 50 mg/dL Abnormal Negative [facility] RBC LM.HPF (Urine sed) [#/Area] 6-10 Abnormal [facility] Specific gravity (U) [Rel density] 1.011 1.005 - 1.030 [facility] Urobilinogen (U) [Mass/Vol] Normal Normal (0-1) mg/dL [facility] WBC LM.HPF (Urine sed) [#/Area] /[HPF] Abnormal [facility] Vital signsOrdered By: Lorena Carr on 01-10-2024 Heart rate 79 /min bpm [facility] [employer] Work Phone: XR Femur - left 2 Viewson No evidence for acute fracture. Osteoarthritis of the left hip. Atherosclerosis. Report Dictated on Electronically Signed By: Marbin Newby MD Electronically Signed Date/Time: 01/10/2024 10:23 PM EDT [facility] Patient Name: BEVERLY SEE : 1945 Exam Date/Time: 01/10/2024 22:07 Procedure: XR FEMUR 2+ VW LEFT Ordering Provider: RICHARDSON PAUL Reason For Exam: Fall, concern for knee/thigh pain LEFT FEMUR CLINICAL INDICATION: Pain Fall, concern for knee/thigh pain AP and lateral plain film views of the left femur were obtained. COMPARISON: None FINDINGS: No fracture or dislocation of the left femur is identified. Atherosclerotic calcifications are noted along the course of the superficial femoral artery. Left total knee arthroplasty is incompletely visualized. There is joint space narrowing osteophyte formation of the left hip. [facility] Marbin Newby MD - 01/10/2024 Patient Name: BEVERLY AGEE : 1945 Exam Date/Time: 01/10/2024 22:07 Procedure: XR FEMUR 2+ VW LEFT Ordering Provider: RICHARDSON PAUL Reason For Exam: Fall, concern for knee/thigh pain LEFT FEMUR CLINICAL INDICATION: Pain Fall, concern for knee/thigh pain AP and lateral plain film views of the left femur were obtained. COMPARISON: None FINDINGS: No fracture or dislocation of the left femur is identified. Atherosclerotic calcifications are noted along the course of the superficial femoral artery. Left total knee arthroplasty is incompletely visualized. There is joint space narrowing osteophyte formation of the left hip. IMPRESSION: No evidence for acute fracture. Osteoarthritis of the left hip. Atherosclerosis. Report Dictated on Electronically Signed By: Marbin Newby MD Electronically Signed Date/Time: 01/10/2024 10:23 PM EDT [facility] Radiology Study observation (narrative) [facility] XR Knee - bilateral 3 Viewso n 01-10-2024 Bilateral total knee arthroplasties without evidence for hardware failure. Report Dictated on Electronically Signed By: Marbin Newby MD Electronically Signed Date/Time: 01/10/2024 10:26 PM [facility] Patient Name: BEVERLY SEE : 1945 Exam Date/Time: 01/10/2024 22:07 Procedure: XR KNEE 3 VIEWS BILATERAL Ordering Provider: RICHARDSON PAUL Reason For Exam: Fall on knees, concern for knee/thigh pain BILATERAL KNEES CLINICAL INDICATION: Bilateral knee pain Fall on knees, concern for knee/thigh pain TECHNIQUE: AP, tunnel, and lateral views of the bilateral knees COMPARISON: Left knee series dated August 01, 2021 FINDINGS: Left knee: No fracture, dislocation, or loosening of the patient's left knee arthroplasty is identified. No joint effusion is seen on the lateral view of the left knee. Atherosclerotic calcifications are noted posterior to the distal femur. Soft tissue detail calcifications are noted anterior to the distal femur. Right knee: No fracture, dislocation, or loosening of the patient's right knee arthroplasty is identified. No joint effusion is seen on the lateral view of the right knee. Atherosclerotic calcifications are noted posterior to the distal femur [facility] Marbin Newby MD - 01/10/2024 Patient Name: BEVERLY AGEE : 1945 Exam Date/Time: 01/10/2024 22:07 Procedure: XR KNEE 3 VIEWS BILATERAL Ordering Provider: RICHARDSON PAUL Reason For Exam: Fall on knees, concern for knee/thigh pain BILATERAL KNEES CLINICAL INDICATION: Bilateral knee pain Fall on knees, concern for knee/thigh pain TECHNIQUE: AP, tunnel, and lateral views of the bilateral knees COMPARISON: Left knee series dated August 01, 2021 FINDINGS: Left knee: No fracture, dislocation, or loosening of the patient's left knee arthroplasty is identified. No joint effusion is seen on the lateral view of the left knee. Atherosclerotic calcifications are noted posterior to the distal femur. Soft tissue detail calcifications are noted anterior to the distal femur. Right knee: No fracture, dislocation, or loosening of the patient's right knee arthroplasty is identified. No joint effusion is seen on the lateral view of the right knee. Atherosclerotic calcifications are noted posterior to the distal femur IMPRESSION: Bilateral total knee arthroplasties without evidence for hardware failure. Report Dictated on Electronically Signed By: Marbin Newby MD Electronically Signed Date/Time: 01/10/2024 10:26 PM EDT [facility] Radiology Study observation (narrative) [facility] - bilateral 3 ViewsO rdered By: Marbin Newby on 01-10-2024 [facility] Work Phone: Laboratory - Chemistry and C hemistry - challengeon 12-24-2023 Glucose [Mass/Vol] 200 mg/dL High 70 - 100 mg/dL [facility] Glucose [Mass/Vol] 104 mg/dL High 70 - 100 mg/dL [facility] No Panel Informationon 12-23 Interpretation and review of laboratory results Abnormal [facility] Interpretation and review of laboratory results Abnormal [facility] Radiology Study observation (narrative) [facility] (narrative) [facility] Basic metabolic 1998 panelon 12-23-2023 Anion gap [Moles/Vol] 9 mmol/L 3 - 13 mmol/L [facility] Calcium [Mass/Vol] 9.7 mg/dL 8.4 - 10. 4 mg/dL [facility] Chloride [Moles/Vol] 97 mmol/L Low 98 - 10 7 mmol/L [facility] CO2 [Moles/Vol] 23 mmol/L 22 - 30 mmol/L [facility] Creatinine [Mass/Vol] 0.58 mg/dL 0.52 - 1.04 mg/dL [facility] GFR/1.73 sq M.predicted MDRD (S/P/Bld) [Vol rate/Area] - PINF [facility] Glucose [Mass/Vol] 122 mg/dL High 70 - 100 mg/dL [facility] Interpretation and review of laboratory results Abnormal [facility] Potassium [Moles/Vol] 3.9 mmol/L 3.5 - 5.1 mmol/L [facility] Sodium [Moles/Vol] 129 mmol/L Low 135 - 145 mmol/L [facility] Urea nitrogen [Mass/Vol] 13 mg/dL 7 - 17 mg/dL [facility] CBC panel Auto (Bld)on 12-22 Erythrocyte distribution width (RBC) [Ratio] 13.8 % 11.5 - 15.0 % [facility] Hematocrit (Bld) [Volume fraction] 34.3 % Low 35.0 - 47.0 % [facility] Hemoglobin (Bld) [Mass/Vol] 11.4 g/dL Low 11.7 - 16.0 g/dL [facility] Interpretation and review of laboratory results Abnormal [facility] MCH (RBC) [Entitic mass] 29.2 pg 26.0 - 34.0 pg [facility] MCHC (RBC) [Mass/Vol] 33.2 % 30.5 - 36.0 % [facility] MCV (RBC) [Entitic vol] 87.7 fL 77.0 - 99.0 fL [facility] Platelet mean volume (Bld) [Entitic vol] 9.1 fL 9.0 - 12.7 fL [facility] Platelets (Bld) [#/Vol] 485 10*3/uL High 140 - 440 10*3/uL [facility] RBC (Bld) [#/Vol] 3.91 10*6/uL 3.80 - 5.2 0 10*6/uL [facility] WBC (Bld) [#/Vol] 10.2 10*3/uL 3.6 - 10.7 10*3/uL [facility] Laboratory - Chemistry and C hemistry - challengeon 12-23-2023 Glucose [Mass/Vol] 124 mg/dL High 70 - 100 mg/dL [facility] Glucose [Mass/Vol] 128 mg/dL High 70 - 100 mg/dL [facility] Glucose [Mass/Vol] 82 mg/dL 70 - 100 mg/dL [facility] Glucose [Mass/Vol] 65 mg/dL Low 70 - 100 mg/dL [facility] Glucose [Mass/Vol] 155 mg/dL High 70 - 100 mg/dL [facility] Glucose [Mass/Vol] 141 mg/dL High 70 - 100 mg/dL [facility] No Panel Informationon 12-22 Interpretation and review of laboratory results Abnormal [facility] Interpretation and review of laboratory results Abnormal [facility] Interpretation and review of laboratory results Normal [facility] Interpretation and review of laboratory results Abnormal [facility] Interpretation and review of laboratory results Abnormal [facility] Interpretation and review of laboratory results Abnormal [facility] Radiology Study observation (narrative) [facility] Rad[facility] Study observation (narrative) [facility] Radiology Study observation (narrative) [facility] Radiology Study observation (narrative) [facility] Radiology Study observation (narrative) [facility] Rad[facility] (narrative) [facility] Laboratory - Chemistry and C hemistry - challengeon 12-22-2023 Glucose [Mass/Vol] 130 mg/dL High 70 - 100 mg/dL [facility] Glucose [Mass/Vol] 144 mg/dL High 70 - 100 mg/dL [facility] Glucose [Mass/Vol] 102 mg/dL High 70 - 100 mg/dL [facility] Glucose [Mass/Vol] 144 mg/dL High 70 - 100 mg/dL [facility] Glucose [Mass/Vol] 182 mg/dL High 70 - 100 mg/dL [facility] No Panel Informationon 12-21 Interpretation and review of laboratory results Abnormal [facility] Interpretation and review of laboratory results Abnormal [facility] Interpretation and review of laboratory results Abnormal [facility] Interpretation and review of laboratory results Abnormal [facility] Interpretation and review of laboratory results Abnormal [facility] Radiology Study observation (narrative) [facility] Radiology Study observation (narrative) [facility] Radiology Study observation (narrative) [facility] Radiology Study observation (narrative) [facility] Radiology Study observation (narrative) [facility] XR Chest Single viewon 12-21 [facility] Radiology Study observation (narrative) [facility] XR Chest Single viewOrdered By: Refugio Kunz on 12-22-2023 [facility] Work Phone: Basic metabolic 1998 panelon 12-21-2023 Anion gap [Moles/Vol] 4 mmol/L 3 - 13 mmol/L [facility] Calcium [Mass/Vol] 9.4 mg/dL 8.4 - 10. 4 mg/dL [facility] Chloride [Moles/Vol] 101 mmol/L 98 - 10 7 mmol/L [facility] CO2 [Moles/Vol] 30 mmol/L 22 - 30 mmol/L [facility] Creatinine [Mass/Vol] 0.69 mg/dL 0.52 - 1.04 mg/dL [facility] GFR/1.73 sq M.predicted MDRD (S/P/Bld) [Vol rate/Area] - PINF [facility] Glucose [Mass/Vol] 79 mg/dL 70 - 100 mg/dL [facility] Interpretation and review of laboratory results Abnormal [facility] Potassium [Moles/Vol] 4.0 mmol/L 3.5 - 5.1 mmol/L [facility] Sodium [Moles/Vol] 135 mmol/L 135 - 145 mmol/L [facility] Urea nitrogen [Mass/Vol] 23 mg/dL High 7 - 17 mg/dL [facility] CBC panel Auto (Bld)on 12-20 Erythrocyte distribution width (RBC) [Ratio] 14.0 % 11.5 - 15.0 % [facility] Hematocrit (Bld) [Volume fraction] 31.6 % Low 35.0 - 47.0 % [facility] Hemoglobin (Bld) [Mass/Vol] 9.9 g/dL Low 11.7 - 16.0 g/dL [facility] Interpretation and review of laboratory results Abnormal [facility] MCH (RBC) [Entitic mass] 28.6 pg 26.0 - 34.0 pg [facility] MCHC (RBC) [Mass/Vol] 31.3 % 30.5 - 36.0 % [facility] MCV (RBC) [Entitic vol] 91.3 fL 77.0 - 99.0 fL [facility] Platelet mean volume (Bld) [Entitic vol] 9.2 fL 9.0 - 12.7 fL [facility] Platelets (Bld) [#/Vol] 406 10*3/uL 140 - 440 10*3/uL [facility] RBC (Bld) [#/Vol] 3.46 10*6/uL Low 3.80 - 5.2 0 10*6/uL [facility] WBC (Bld) [#/Vol] 9.5 10*3/uL 3.6 - 10.7 10*3/uL [facility] Laboratory - Chemistry and C hemistry - challengeon 12-21-2023 Glucose [Mass/Vol] 88 mg/dL 70 - 100 mg/dL [facility] Glucose [Mass/Vol] 91 mg/dL 70 - 100 mg/dL [facility] Glucose [Mass/Vol] 177 mg/dL High 70 - 100 mg/dL [facility] Glucose [Mass/Vol] 101 mg/dL High 70 - 100 mg/dL [facility] No Panel Informationon 12-20 Interpretation and review of laboratory results Normal [facility] Interpretation and review of laboratory results Normal [facility] Interpretation and review of laboratory results Abnormal [facility] Interpretation and review of laboratory results Abnormal [facility] Radiology Study observation (narrative) [facility] Radiology Study observation [facility]narrative) [facility] Study observation (narrative) [facility] Radiology Study observation (narrative) [facility] Basic metabolic 1998 panelon 12-20-2023 Anion gap [Moles/Vol] 3 mmol/L 3 - 13 mmol/L [facility] Calcium [Mass/Vol] 9.3 mg/dL 8.4 - 10. 4 mg/dL [facility] Chloride [Moles/Vol] 99 mmol/L 98 - 10 7 mmol/L [facility] CO2 [Moles/Vol] 31 mmol/L High 22 - 30 mmol/L [facility] Creatinine [Mass/Vol] 0.82 mg/dL 0.52 - 1.04 mg/dL [facility] GFR/1.73 sq M.predicted MDRD (S/P/Bld) [Vol rate/Area] 74.2 mL/min/{1.73_m2} - PINF [facility] th Glucose [Mass/Vol] 83 mg/dL 70 - 100 mg/dL [facility] Interpretation and review of laboratory results Abnormal [facility] Potassium [Moles/Vol] 4.5 mmol/L 3.5 - 5.1 mmol/L [facility] Sodium [Moles/Vol] 133 mmol/L Low 135 - 145 mmol/L [facility] Urea nitrogen [Mass/Vol] 24 mg/dL High 7 - 17 mg/dL [facility] CBC panel Auto (Bld)on 12-19 Erythrocyte distribution width (RBC) [Ratio] 14.0 % 11.5 - 15.0 % [facility] Hematocrit (Bld) [Volume fraction] 27.6 % Low 35.0 - 47.0 % [facility] Hemoglobin (Bld) [Mass/Vol] 8.9 g/dL Low 11.7 - 16.0 g/dL [facility] Interpretation and review of laboratory results Abnormal [facility] MCH (RBC) [Entitic mass] 29.2 pg 26.0 - 34.0 pg [facility] MCHC (RBC) [Mass/Vol] 32.2 % 30.5 - 36.0 % [facility] MCV (RBC) [Entitic vol] 90.5 fL 77.0 - 99.0 fL [facility] Platelet mean volume (Bld) [Entitic vol] 9.6 fL 9.0 - 12.7 fL [facility] Platelets (Bld) [#/Vol] 349 10*3/uL 140 - 440 10*3/uL [facility] RBC (Bld) [#/Vol] 3.05 10*6/uL Low 3.80 - 5.2 0 10*6/uL [facility] WBC (Bld) [#/Vol] 11.1 10*3/uL High 3.6 - 10.7 10*3/uL [facility] Laboratory - Chemistry and C hemistry - challengeon 12-20-2023 Glucose [Mass/Vol] 111 mg/dL High 70 - 100 mg/dL [facility] Glucose [Mass/Vol] 167 mg/dL High 70 - 100 mg/dL [facility] Glucose [Mass/Vol] 131 mg/dL High 70 - 100 mg/dL [facility] Glucose [Mass/Vol] 97 mg/dL 70 - 100 mg/dL [facility] No Panel Informationon 12-19 Interpretation and review of laboratory results Abnormal [facility] Interpretation and review of laboratory results Abnormal [facility] Interpretation and review of laboratory results Abnormal [facility] Interpretation and review of laboratory results Normal [facility] Radiology Study observation (narrative) [facility] Radiology Study observation (narrative) [facility] Radiology Study observation (narrative) [facility] Radiology Study observation (narrative) [facility] XR Chest Single viewon 12-19 [facility] Radiology Study observation (narrative) [facility] Radiology Study observation (narrative) [facility] XR Chest Single viewOrdered By: Trevin Palmer on 12-20-2023 [facility] Work Phone: XR Lumbar spine 2 or 3 Views on 12-20-2023 [facility] Radiology Study observation (narrative) Wilbert Schilling alth Basic metabolic 1998 panelon 12-19-2023 Anion gap [Moles/Vol] 2 mmol/L Low 3 - 13 mmol/L [facility] Calcium [Mass/Vol] 9.3 mg/dL 8.4 - 10. 4 mg/dL [facility] Chloride [Moles/Vol] 98 mmol/L 98 - 10 7 mmol/L [facility] CO2 [Moles/Vol] 32 mmol/L High 22 - 30 mmol/L [facility] Creatinine [Mass/Vol] 0.70 mg/dL 0.52 - 1.04 mg/dL [facility] GFR/1.73 sq M.predicted MDRD (S/P/Bld) [Vol rate/Area] 89.8 mL/min/{1.73_m2} - PINF [facility] Glucose [Mass/Vol] 88 mg/dL 70 - 100 mg/dL [facility] Interpretation and review of laboratory results Abnormal [facility] Potassium [Moles/Vol] 4.3 mmol/L 3.5 - 5.1 mmol/L [facility] Sodium [Moles/Vol] 132 mmol/L Low 135 - 145 mmol/L [facility] Urea nitrogen [Mass/Vol] 19 mg/dL High 7 - 17 mg/dL [facility] CBC panel Auto (Bld)on 12-18 Erythrocyte distribution width (RBC) [Ratio] 13.9 % 11.5 - 15.0 % [facility] Hematocrit (Bld) [Volume fraction] 29.8 % Low 35.0 - 47.0 % [facility] Hemoglobin (Bld) [Mass/Vol] 9.7 g/dL Low 11.7 - 16.0 g/dL [facility] Interpretation and review of laboratory results Abnormal [facility] MCH (RBC) [Entitic mass] 29.3 pg 26.0 - 34.0 pg [facility] MCHC (RBC) [Mass/Vol] 32.6 % 30.5 - 36.0 % [facility] MCV (RBC) [Entitic vol] 90.0 fL 77.0 - 99.0 fL [facility] Platelet mean volume (Bld) [Entitic vol] 9.3 fL 9.0 - 12.7 fL [facility] Platelets (Bld) [#/Vol] 321 10*3/uL 140 - 440 10*3/uL [facility] RBC (Bld) [#/Vol] 3.31 10*6/uL Low 3.80 - 5.2 0 10*6/uL [facility] WBC (Bld) [#/Vol] 11.0 10*3/uL High 3.6 - 10.7 10*3/uL [facility] Laboratory - Chemistry and C hemistry - challengeon 12-19-2023 Glucose [Mass/Vol] 137 mg/dL High 70 - 100 mg/dL [facility] Glucose [Mass/Vol] 164 mg/dL High 70 - 100 mg/dL [facility] Glucose [Mass/Vol] 171 mg/dL High 70 - 100 mg/dL [facility] Glucose [Mass/Vol] 238 mg/dL High 70 - 100 mg/dL [facility] Glucose [Mass/Vol] 109 mg/dL High 70 - 100 mg/dL [facility] No Panel Informationon 12-18 Interpretation and review of laboratory results Abnormal [facility] Interpretation and review of laboratory results Abnormal [facility] Interpretation and review of laboratory results Abnormal [facility] Interpretation and review of laboratory results Abnormal [facility] Interpretation and review of laboratory results Abnormal [facility] Radiology Study observation (narrative) [facility] Radiology Study observation (narrative) [facility] Radiology Study observation (narrative) [facility] Radiology Study observation (narrative) [facility] Single viewon 12-18 [facility] Basic metabolic 1998 panelon 12-18-2023 Anion gap [Moles/Vol] 2 mmol/L Low 3 - 13 mmol/L [facility] Calcium [Mass/Vol] 9.3 mg/dL 8.4 - 10. 4 mg/dL [facility] Chloride [Moles/Vol] 100 mmol/L 98 - 10 7 mmol/L [facility] CO2 [Moles/Vol] 29 mmol/L 22 - 30 mmol/L [facility] Creatinine [Mass/Vol] 0.72 mg/dL 0.52 - 1.04 mg/dL [facility] GFR/1.73 sq M.predicted MDRD (S/P/Bld) [Vol rate/Area] 86.8 mL/min/{1.73_m2} - PINF [facility] Glucose [Mass/Vol] 141 mg/dL High 70 - 100 mg/dL [facility] Interpretation and review of laboratory results Abnormal [facility] Potassium [Moles/Vol] 4.4 mmol/L 3.5 - 5.1 mmol/L [facility] Sodium [Moles/Vol] 131 mmol/L Low 135 - 145 mmol/L [facility] Urea nitrogen [Mass/Vol] 17 mg/dL 7 - 17 mg/dL [facility] CBC panel Auto (Bld)on 12-17 Erythrocyte distribution width (RBC) [Ratio] 13.4 % 11.5 - 15.0 % [facility] Hematocrit (Bld) [Volume fraction] 30.8 % Low 35.0 - 47.0 % [facility] Hemoglobin (Bld) [Mass/Vol] 10.3 g/dL Low 11.7 - 16.0 g/dL [facility] Interpretation and review of laboratory results Abnormal [facility] MCH (RBC) [Entitic mass] 29.8 pg 26.0 - 34.0 pg [facility] MCHC (RBC) [Mass/Vol] 33.4 % 30.5 - 36.0 % [facility] MCV (RBC) [Entitic vol] 89.0 fL 77.0 - 99.0 fL [facility] Platelet mean volume (Bld) [Entitic vol] 9.5 fL 9.0 - 12.7 fL [facility] Platelets (Bld) [#/Vol] 337 10*3/uL 140 - 440 10*3/uL [facility] RBC (Bld) [#/Vol] 3.46 10*6/uL Low 3.80 - 5.2 0 10*6/uL [facility] WBC (Bld) [#/Vol] 14.1 10*3/uL High 3.6 - 10.7 10*3/uL [facility] Laboratory - Chemistry and C hemistry - challengeon 12-18-2023 Glucose [Mass/Vol] 98 mg/dL 70 - 100 mg/dL [facility] Glucose [Mass/Vol] 223 mg/dL High 70 - 100 mg/dL [facility] Glucose [Mass/Vol] 180 mg/dL High 70 - 100 mg/dL [facility] Glucose [Mass/Vol] 120 mg/dL High 70 - 100 mg/dL [facility] No Panel Informationon 12-17 Interpretation and review of laboratory results Normal [facility] Interpretation and review of laboratory results Abnormal [facility] Interpretation and review of laboratory results Abnormal [facility] Interpretation and review of laboratory results Abnormal [facility] Radiology Study observation (narrative) [facility] (narrative) [facility] Shakir al[facility] Radiology Study observation (narrative) [facility] Rad[facility] observation (narrative) [facility] Shakir alth XR Chest Single viewon 12-17 [facility] Radiology Study observation (narrative) [facility] Basic metabolic 1998 panelon 12-17-2023 Anion gap [Moles/Vol] 2 mmol/L Low 3 - 13 mmol/L [facility] Calcium [Mass/Vol] 9.4 mg/dL 8.4 - 10. 4 mg/dL [facility] Chloride [Moles/Vol] 101 mmol/L 98 - 10 7 mmol/L [facility] CO2 [Moles/Vol] 29 mmol/L 22 - 30 mmol/L [facility] Creatinine [Mass/Vol] 0.56 mg/dL 0.52 - 1.04 mg/dL [facility] GFR/1.73 sq M.predicted MDRD (S/P/Bld) [Vol rate/Area] - PINF [facility] Glucose [Mass/Vol] 82 mg/dL 70 - 100 mg/dL [facility] Interpretation and review of laboratory results Abnormal [facility] Potassium [Moles/Vol] 4.0 mmol/L 3.5 - 5.1 mmol/L [facility] Sodium [Moles/Vol] 132 mmol/L Low 135 - 145 mmol/L [facility] Urea nitrogen [Mass/Vol] 11 mg/dL 7 - 17 mg/dL [facility] CBC panel Auto (Bld)on 12-16 Erythrocyte distribution width (RBC) [Ratio] 13.3 % 11.5 - 15.0 % [facility] Hematocrit (Bld) [Volume fraction] 29.5 % Low 35.0 - 47.0 % [facility] Hemoglobin (Bld) [Mass/Vol] 10.1 g/dL Low 11.7 - 16.0 g/dL [facility] Interpretation and review of laboratory results Abnormal [facility] MCH (RBC) [Entitic mass] 30.2 pg 26.0 - 34.0 pg [facility] MCHC (RBC) [Mass/Vol] 34.2 % 30.5 - 36.0 % [facility] MCV (RBC) [Entitic vol] 88.3 fL 77.0 - 99.0 fL [facility] Platelet mean volume (Bld) [Entitic vol] 9.4 fL 9.0 - 12.7 fL [facility] Platelets (Bld) [#/Vol] 285 10*3/uL 140 - 440 10*3/uL [facility] RBC (Bld) [#/Vol] 3.34 10*6/uL Low 3.80 - 5.2 0 10*6/uL [facility] WBC (Bld) [#/Vol] 9.9 10*3/uL 3.6 - 10.7 10*3/uL [facility] Hemoglobin (Bld) [Mass/Vol]o n 12-17-2023 Hematocrit (Bld) [Volume fraction] 33.1 % Low 35.0 - 47.0 % [facility] Interpretation and review of laboratory results Abnormal [facility] Laboratory - Chemistry and C hemistry - challengeon 12-17-2023 Glucose [Mass/Vol] 218 mg/dL High 70 - 100 mg/dL [facility] Glucose [Mass/Vol] 252 mg/dL High 70 - 100 mg/dL [facility] Glucose [Mass/Vol] 252 mg/dL High 70 - 100 mg/dL [facility] Glucose [Mass/Vol] 83 mg/dL 70 - 100 mg/dL [facility] Glucose [Mass/Vol] 95 mg/dL 70 - 100 mg/dL [facility] Laboratory - Hematology and Cell countson 12-17-2023 Hemoglobin (Bld) [Mass/Vol] 11.0 g/dL Low 11.7 - 16.0 g/dL [facility] No Panel Informationon 12-16 Interpretation and review of laboratory results Abnormal [facility] Interpretation and review of laboratory results Abnormal [facility] Interpretation and review of laboratory results Abnormal [facility] Interpretation and review of laboratory results Normal [facility] Interpretation and review of laboratory results Normal [facility] Radiology Study observation (narrative) [facility] Rad[facility]narrative[facility]) [facility]narrative[facility]ative) [facility] XR Chest Single viewon 12-16 [facility] Radiology Study observation (narrative) [facility] RADIOLOGY [facility] Radiology Study observation (narrative) [facility] He alth XR Chest Single viewOrdered By: Mónica Ly on 12-17-2023 [facility] Work Phone: Basic metabolic 1998 panelon 12-16-2023 Anion gap [Moles/Vol] 2 mmol/L Low 3 - 13 mmol/L [facility] Calcium [Mass/Vol] 9.5 mg/dL 8.4 - 10. 4 mg/dL [facility] Chloride [Moles/Vol] 104 mmol/L 98 - 10 7 mmol/L [facility] CO2 [Moles/Vol] 31 mmol/L High 22 - 30 mmol/L [facility] Creatinine [Mass/Vol] 0.60 mg/dL 0.52 - 1.04 mg/dL [facility] GFR/1.73 sq M.predicted MDRD (S/P/Bld) [Vol rate/Area] - PINF [facility] Glucose [Mass/Vol] 58 mg/dL Low 70 - 100 mg/dL [facility] Interpretation and review of laboratory results Abnormal [facility] Potassium [Moles/Vol] 4.0 mmol/L 3.5 - 5.1 mmol/L [facility] Sodium [Moles/Vol] 137 mmol/L 135 - 145 mmol/L [facility] Urea nitrogen [Mass/Vol] 15 mg/dL 7 - 17 mg/dL [facility] CBC panel Auto (Bld)on 12-15 Erythrocyte distribution width (RBC) [Ratio] 13.6 % 11.5 - 15.0 % [facility] Hematocrit (Bld) [Volume fraction] 28.6 % Low 35.0 - 47.0 % [facility] Hemoglobin (Bld) [Mass/Vol] 9.4 g/dL Low 11.7 - 16.0 g/dL [facility] Interpretation and review of laboratory results Abnormal [facility] MCH (RBC) [Entitic mass] 29.2 pg 26.0 - 34.0 pg [facility] MCHC (RBC) [Mass/Vol] 32.9 % 30.5 - 36.0 % [facility] MCV (RBC) [Entitic vol] 88.8 fL 77.0 - 99.0 fL [facility] Platelet mean volume (Bld) [Entitic vol] 9.5 fL 9.0 - 12.7 fL [facility] Platelets (Bld) [#/Vol] 248 10*3/uL 140 - 440 10*3/uL [facility] RBC (Bld) [#/Vol] 3.22 10*6/uL Low 3.80 - 5.2 0 10*6/uL [facility] WBC (Bld) [#/Vol] 10.0 10*3/uL 3.6 - 10.7 10*3/uL [facility] Laboratory - Chemistry and C hemistry - challengeon 12-16-2023 Glucose [Mass/Vol] 99 mg/dL 70 - 100 mg/dL [facility] Glucose [Mass/Vol] 144 mg/dL High 70 - 100 mg/dL [facility] Glucose [Mass/Vol] 130 mg/dL High 70 - 100 mg/dL [facility] Glucose [Mass/Vol] 91 mg/dL 70 - 100 mg/dL [facility] Glucose [Mass/Vol] 123 mg/dL High 70 - 100 mg/dL [facility] Glucose [Mass/Vol] 96 mg/dL 70 - 100 mg/dL [facility] Glucose [Mass/Vol] 106 mg/dL High 70 - 100 mg/dL [facility] Glucose [Mass/Vol] 63 mg/dL Low 70 - 100 mg/dL [facility] Glucose [Mass/Vol] mg/dL Low 70 - 100 mg/dL [facility] No Panel Informationon 12-15 Interpretation and review of laboratory results Normal [facility] Interpretation and review of laboratory results Abnormal [facility] Interpretation and review of laboratory results Abnormal [facility] Interpretation and review of laboratory results Normal [facility] Interpretation and review of laboratory results Abnormal [facility] Interpretation and review of laboratory results Normal [facility] Interpretation and review of laboratory results Abnormal [facility] Interpretation and review of laboratory results Abnormal [facility] Interpretation and review of laboratory results Abnormal [facility] Radiology Study observation (narrative) [facility] Radiology Study observation (narrative) [facility] Radiology Study observation (narrative) [facility] Radiology Study observation (narrative) [facility] Radiology [facility]narrative) [facility] (narrative) [facility] Radiology Study observation (narrative) [facility] Radiology Study observation (narrative) [facility] Radiology Study observation (narrative) [facility] Chest Single viewon 12-15 [facility] Radiology Study observation (narrative) [facility] Basic metabolic 1998 panelon 12-15-2023 Anion gap [Moles/Vol] 3 mmol/L 3 - 13 mmol/L [facility] Calcium [Mass/Vol] 9.3 mg/dL 8.4 - 10. 4 mg/dL [facility] Chloride [Moles/Vol] 106 mmol/L 98 - 10 7 mmol/L [facility] CO2 [Moles/Vol] 27 mmol/L 22 - 30 mmol/L [facility] Creatinine [Mass/Vol] 0.64 mg/dL 0.52 - 1.04 mg/dL [facility] GFR/1.73 sq M.predicted MDRD (S/P/Bld) [Vol rate/Area] - PINF [facility] Glucose [Mass/Vol] 80 mg/dL 70 - 100 mg/dL [facility] Interpretation and review of laboratory results Abnormal [facility] Potassium [Moles/Vol] 3.9 mmol/L 3.5 - 5.1 mmol/L [facility] Sodium [Moles/Vol] 136 mmol/L 135 - 145 mmol/L [facility] Urea nitrogen [Mass/Vol] 20 mg/dL High 7 - 17 mg/dL [facility] CBC panel Auto (Bld)on 12-14 Erythrocyte distribution width (RBC) [Ratio] 13.7 % 11.5 - 15.0 % [facility] Hematocrit (Bld) [Volume fraction] 27.5 % Low 35.0 - 47.0 % [facility] Hemoglobin (Bld) [Mass/Vol] 9.1 g/dL Low 11.7 - 16.0 g/dL [facility] Interpretation and review of laboratory results Abnormal [facility] MCH (RBC) [Entitic mass] 29.5 pg 26.0 - 34.0 pg [facility] MCHC (RBC) [Mass/Vol] 33.1 % 30.5 - 36.0 % [facility] MCV (RBC) [Entitic vol] 89.3 fL 77.0 - 99.0 fL [facility] Platelet mean volume (Bld) [Entitic vol] 9.9 fL 9.0 - 12.7 fL [facility] Platelets (Bld) [#/Vol] 199 10*3/uL 140 - 440 10*3/uL [facility] RBC (Bld) [#/Vol] 3.08 10*6/uL Low 3.80 - 5.2 0 10*6/uL [facility] WBC (Bld) [#/Vol] 8.4 10*3/uL 3.6 - 10.7 10*3/uL [facility] CT Chest W contrast [facility] Radiology Study observation (narrative) [facility] sam CT Chest W contrast IVOrdere d By: Gus Mac on 12-15-2023 [facility] Work Phone: Hemoglobin (Bld) [Mass/Vol]o n 12-15-2023 Hematocrit (Bld) [Volume fraction] 27.1 % Low 35.0 - 47.0 % [facility] Interpretation and review of laboratory results Abnormal [facility] Laboratory - Chemistry and C hemistry - challengeon 12-15-2023 Glucose [Mass/Vol] 87 mg/dL 70 - 100 mg/dL [facility] Glucose [Mass/Vol] 73 mg/dL 70 - 100 mg/dL [facility] Glucose [Mass/Vol] 116 mg/dL High 70 - 100 mg/dL [facility] Glucose [Mass/Vol] 109 mg/dL High 70 - 100 mg/dL [facility] Glucose [Mass/Vol] 81 mg/dL 70 - 100 mg/dL [facility] Glucose [Mass/Vol] 91 mg/dL 70 - 100 mg/dL [facility] Glucose [Mass/Vol] 53 mg/dL Low 70 - 100 mg/dL [facility] Laboratory - Hematology and Cell countson 12-15-2023 Hemoglobin (Bld) [Mass/Vol] 9.1 g/dL Low 11.7 - 16.0 g/dL [facility] No Panel Informationon 12-14 Interpretation and review of laboratory results Normal [facility] Interpretation and review of laboratory results Normal [facility] Interpretation and review of laboratory results Abnormal [facility] Interpretation and review of laboratory results Abnormal [facility] Interpretation and review of laboratory results Normal [facility] Interpretation and review of laboratory results Normal [facility] Interpretation and review of laboratory results Abnormal [facility] Radiology Study observation (narrative) [facility] Radiology Study observation (narrative) [facility] Radiology [facility] (narrative) [facility]narrative[facility] Rad[facility] Study observation (narrative) [facility] Radiology Study observation (narrative) [facility] Radiology Study observation (narrative) [facility] XR Chest Single viewon 12-14 [facility] Radiology Study observation (narrative) [facility] 25-hydroxyvitamin D3 [Mass/V ol]on 12-14-2023 Interpretation and review of laboratory results Abnormal [facility] Basic metabolic 1998 panelon 12-14-2023 Anion gap [Moles/Vol] 2 mmol/L Low 3 - 13 mmol/L [facility] Calcium [Mass/Vol] 9.3 mg/dL 8.4 - 10. 4 mg/dL [facility] Chloride [Moles/Vol] 106 mmol/L 98 - 10 7 mmol/L [facility] CO2 [Moles/Vol] 25 mmol/L 22 - 30 mmol/L [facility] Creatinine [Mass/Vol] 0.84 mg/dL 0.52 - 1.04 mg/dL [facility] GFR/1.73 sq M.predicted MDRD (S/P/Bld) [Vol rate/Area] 72.1 mL/min/{1.73_m2} - PINF [facility] th Glucose [Mass/Vol] 78 mg/dL 70 - 100 mg/dL [facility] Interpretation and review of laboratory results Abnormal [facility] Potassium [Moles/Vol] 3.9 mmol/L 3.5 - 5.1 mmol/L [facility] Sodium [Moles/Vol] 133 mmol/L Low 135 - 145 mmol/L [facility] Urea nitrogen [Mass/Vol] 29 mg/dL High 7 - 17 mg/dL [facility] CBC panel Auto (Bld)on 12-13 Erythrocyte distribution width (RBC) [Ratio] 13.3 % 11.5 - 15.0 % [facility] Hematocrit (Bld) [Volume fraction] 25.2 % Low 35.0 - 47.0 % [facility] Hemoglobin (Bld) [Mass/Vol] 8.1 g/dL Low 11.7 - 16.0 g/dL [facility] Interpretation and review of laboratory results Abnormal [facility] MCH (RBC) [Entitic mass] 29.1 pg 26.0 - 34.0 pg [facility] MCHC (RBC) [Mass/Vol] 32.1 % 30.5 - 36.0 % [facility] MCV (RBC) [Entitic vol] 90.6 fL 77.0 - 99.0 fL [facility] Platelet mean volume (Bld) [Entitic vol] 10.2 fL 9.0 - 12.7 fL [facility] Platelets (Bld) [#/Vol] 183 10*3/uL 140 - 440 10*3/uL [facility] RBC (Bld) [#/Vol] 2.78 10*6/uL Low 3.80 - 5.2 0 10*6/uL [facility] WBC (Bld) [#/Vol] 11.1 10*3/uL High 3.6 - 10.7 10*3/uL [facility] Hemoglobin (Bld) [Mass/Vol]O rdered By: Ester Cat on 12-14-2023 Hematocrit (Bld) [Volume fraction] 24.1 % Low 35.0 - 47.0 % [facility] Interpretation and review of laboratory results Abnormal [facility] Hemoglobin (Bld) [Mass/Vol]O rdered By: Lalo Yu on 12-14-2023 Hematocrit (Bld) [Volume fraction] 23.4 % Low 35.0 - 47.0 % [facility] Interpretation and review of laboratory results Abnormal [facility] Hemoglobin (Bld) [Mass/Vol]o n 12-14-2023 Hematocrit (Bld) [Volume fraction] 25.8 % Low 35.0 - 47.0 % [facility] Interpretation and review of laboratory results Abnormal [facility] Laboratory - Chemistry and C hemistry - challengeon 12-14-2023 Glucose [Mass/Vol] 126 mg/dL High 70 - 100 mg/dL [facility] Glucose [Mass/Vol] 262 mg/dL High 70 - 100 mg/dL [facility] Average glucose Estimated from glycated hemoglobin (Bld) [Mass/Vol] 157 mg/dL [facility] Glucose [Mass/Vol] 120 mg/dL High 70 - 100 mg/dL [facility] 25-hydroxyvitamin D3 [Mass/Vol] 25 ng/mL Low 30 - 100 ng/mL [facility] Laboratory - Hematology and Cell countsOrdered By: Ester Cat on 12-14-2023 Hemoglobin (Bld) [Mass/Vol] 8.2 g/dL Low 11.7 - 16.0 g/dL [facility] Laboratory - Hematology and Cell countson 12-14-2023 HbA1c (Bld) [Mass fraction] 7.1 % High NINF - 5.7 % [facility] Hemoglobin (Bld) [Mass/Vol] 8.4 g/dL Low 11.7 - 16.0 g/dL [facility] Laboratory - Hematology and Cell countsOrdered By: Lalo Yu on 12-14-2023 Hemoglobin (Bld) [Mass/Vol] 7.9 g/dL Low 11.7 - 16.0 g/dL [facility] No Panel Informationon 12-13 Interpretation and review of laboratory results Abnormal [facility] Interpretation and review of laboratory results Abnormal [facility] Blood Expiration Date [id number] [facility] Crossmatch interpretation COMP [facility] Dispense Status Transfused Wilbert King lth Product Blood Type 5100 [facility] PRODUCT CODE [id number] [facility] Unit ABO O [facility] Unit Number [id number] [facility] alth Unit RH Positive [facility] Unit Volume 300 mL [facility] Interpretation and review of laboratory results Abnormal [facility] Interpretation and review of laboratory results Abnormal [facility] CV EPIPHANY [facility] Radiology Study observation (narrative) [facility] Radiology Study observation (narrative) [facility] Radiology Study observation (narrative) [facility] No Panel InformationOrdered By: James Birmingham on 12-14-2023 P [place]ifford -12 degrees [facility] [employer] Work Phone: NC Interval 154 ms [facility] [employer] Work Phone: QRS [place] -43 degrees [facility] [employer] Work Phone: QRSD Interval 92 ms [facility] [employer] Work Phone: QT Interval 404 ms [facility] [employer] Work Phone: QTC Interval 431 ms [facility] [employer] Work Phone: T Wave [place] 19 degrees [facility] [employer] Work Phone: [facility] Work Phone: Vital signsOrdered By: Katiuska Birmingham on 12-14-2023 Heart rate 69 /min bpm [facility] [employer] Work Phone: XR Chest Single viewon 12-13 [facility] Radiology Study observation (narrative) Wilbert vargas Basic metabolic 1998 panelon 12-13-2023 Anion gap [Moles/Vol] 6 mmol/L 3 - 13 mmol/L [facility] Calcium [Mass/Vol] 9.6 mg/dL 8.4 - 10. 4 mg/dL [facility] Chloride [Moles/Vol] 104 mmol/L 98 - 10 7 mmol/L [facility] CO2 [Moles/Vol] 24 mmol/L 22 - 30 mmol/L [facility] Creatinine [Mass/Vol] 1.12 mg/dL High 0.52 - 1.04 mg/dL [facility] GFR/1.73 sq M.predicted MDRD (S/P/Bld) [Vol rate/Area] 51.1 mL/min/{1.73_m2} Low - PINF [facility] Glucose [Mass/Vol] 292 mg/dL High 70 - 100 mg/dL [facility] Interpretation and review of laboratory results Abnormal [facility] Potassium [Moles/Vol] 4.3 mmol/L 3.5 - 5.1 mmol/L [facility] Sodium [Moles/Vol] 134 mmol/L Low 135 - 145 mmol/L [facility] Urea nitrogen [Mass/Vol] 27 mg/dL High 7 - 17 mg/dL [facility] Blood type and Crossmatch pa oscar (Bld)on 12-13-2023 ABO group Nom (Bld) A [facility] Blood group antibody screen GEL Ql Negative [facility] D Ag Ql (RBC) Positive [facility] h [facility] CBC panel Auto (Bld)Ordered By: Edil Batista on 12-13-2023 Erythrocyte distribution width (RBC) [Ratio] 13.3 % 11.5 - 15.0 % [facility] Hematocrit (Bld) [Volume fraction] 33.8 % Low 35.0 - 47.0 % [facility] Hemoglobin (Bld) [Mass/Vol] 11.1 g/dL Low 11.7 - 16.0 g/dL [facility] Interpretation and review of laboratory results Abnormal [facility] MCH (RBC) [Entitic mass] 29.3 pg 26.0 - 34.0 pg [facility] MCHC (RBC) [Mass/Vol] 32.8 % 30.5 - 36.0 % [facility] MCV (RBC) [Entitic vol] 89.2 fL 77.0 - 99.0 fL [facility] Platelet mean volume (Bld) [Entitic vol] 9.7 fL 9.0 - 12.7 fL [facility] Platelets (Bld) [#/Vol] 248 10*3/uL 140 - 440 10*3/uL [facility] RBC (Bld) [#/Vol] 3.79 10*6/uL Low 3.80 - 5.2 0 10*6/uL [facility] WBC (Bld) [#/Vol] 12.9 10*3/uL High 3.6 - 10.7 10*3/uL [facility] Cobalamin (Vitamin B12) [Mas s/Vol]on 12-13-2023 Interpretation and review of laboratory results Normal [facility] Hemoglobin (Bld) [Mass/Vol]o n 12-13-2023 Hematocrit (Bld) [Volume fraction] 26.6 % Low 35.0 - 47.0 % [facility] Interpretation and review of laboratory results Abnormal [facility] Hematocrit (Bld) [Volume fraction] 32.2 % Low 35.0 - 47.0 % [facility] Interpretation and review of laboratory results Abnormal [facility] Laboratory - Chemistry and C hemistry - challengeon 12-13-2023 Glucose [Mass/Vol] 240 mg/dL High 70 - 100 mg/dL [facility] Cobalamin (Vitamin B12) [Mass/Vol] 623 pg/mL 239 - 931 pg/mL [facility] Glucose [Mass/Vol] 230 mg/dL High 70 - 100 mg/dL [facility] Troponin I.cardiac [Mass/Vol] ng/mL NINF - 0.034 ng/mL [facility] Troponin I.cardiac [Mass/Vol] ng/mL [facility] - 0.034 ng/mL [facility] Laboratory - Coagulationon 0 12-13-2023 PT Coag (Bld) [Time] 12.1 s High 9.0 - 1 2.0 s [facility] Laboratory - Hematology and Cell countson 12-13-2023 Hemoglobin (Bld) [Mass/Vol] 8.7 g/dL Low 11.7 - 16.0 g/dL [facility] Hemoglobin (Bld) [Mass/Vol] 10.4 g/dL Low 11.7 - 16.0 g/dL [facility] No Panel Informationon 12-12 Interpretation and review of laboratory results Abnormal [facility] Interpretation and review of laboratory results Abnormal [facility] Radiology Study observation (narrative) [facility] Radiology Study observation (narrative) [facility] PT Coag (Bld) [Time]on 12-12 INR Coag (PPP) [Relative time] 1.1 {INR} 0.9 - 1.1 [facility] Interpretation and review of laboratory results Abnormal [facility] Troponin I.cardiac [Mass/Vol ]on 12-13-2023 Interpretation and review of laboratory results Normal [facility] Interpretation and review of laboratory results Normal [facility] XR Chest Single viewon 12-12 [facility] Radiology Study observation (narrative) [facility] XR Chest Single viewOrdered By: Chico Noguera on 12-13-2023 [facility] Work Phone: CBC W Auto Differential pane l (Bld)on 12-12-2023 Basophils (Bld) [#/Vol] 0.1 10*3/uL 0.0 - 0.2 10*3/uL [facility] Basophils/100 WBC (Bld) 0.4 % 0.0 - 2.0 % [facility] Eosinophils (Bld) [#/Vol] 0.1 10*3/uL 0.0 - 0.5 10*3/uL [facility] Eosinophils/100 WBC (Bld) 0.4 % 0.0 - 6.0 % [facility] Erythrocyte distribution width (RBC) [Ratio] 13.3 % 11.5 - 15.0 % [facility] Hematocrit (Bld) [Volume fraction] 39.6 % 35.0 - 47.0 % [facility] Hemoglobin (Bld) [Mass/Vol] 13.1 g/dL 11.7 - 16.0 g/dL [facility] Immature granulocytes (Bld) [#/Vol] 0.2 10*3/uL High NINF - 0.1 10*3/uL [facility] Immature granulocytes/100 WBC (Bld) 0.9 % 0.0 - 2.0 % [facility] Interpretation and review of laboratory results Abnormal [facility] Lymphocytes (Bld) [#/Vol] 2.5 10*3/uL 1.0 - 4.3 10*3/uL [facility] Lymphocytes/100 WBC (Bld) 15.3 % 15.0 - 45.0 % [facility] MCH (RBC) [Entitic mass] 29.7 pg 26.0 - 34.0 pg [facility] MCHC (RBC) [Mass/Vol] 33.1 % 30.5 - 36.0 % [facility] MCV (RBC) [Entitic vol] 89.8 fL 77.0 - 99.0 fL [facility] Monocytes (Bld) [#/Vol] 1.2 10*3/uL High 0.0 - 0.9 10*3/uL [facility] Monocytes/100 WBC (Bld) 7.4 % 5.0 - 13.0 % [facility] Neutrophils (Bld) [#/Vol] 12.5 10*3/uL High 1.8 - 7.5 10*3/uL [facility] Neutrophils/100 WBC (Bld) 75.6 % 38.0 - 82.0 % [facility] Nucleated RBC/100 WBC (Bld) [Ratio] 0.0 % [facility] Platelet mean volume (Bld) [Entitic vol] 9.8 fL 9.0 - 12.7 fL [facility] Platelets (Bld) [#/Vol] 312 10*3/uL 140 - 440 10*3/uL [facility] RBC (Bld) [#/Vol] 4.41 10*6/uL 3.80 - 5.2 0 10*6/uL [facility] WBC (Bld) [#/Vol] 16.5 10*3/uL High 3.6 - 10.7 10*3/uL [facility] CT Abdomen and Pelvis WO and W contrast Hunter 12-12-2023 [facility] RAD[facility]OLOG[facility] Radiology Study observation (narrative) [facility] CT Abdomen and Pelvis WO and W contrast IVOrdered By: Manisha Conroy on 12-12-2023 [facility] Work Phone: Comprehensive metabolic 1998 panelon 12-12-2023 Albumin [Mass/Vol] 3.7 g/dL 3.5 - 5.0 g/dL [facility] ALP [Catalytic activity/Vol] 52 U/L 38 - 126 U/L [facility] ALT [Catalytic activity/Vol] 13 U/L 0 - 34 U/L [facility] Anion gap [Moles/Vol] 11 mmol/L 3 - 13 mmol/L [facility] AST [Catalytic activity/Vol] 18 U/L 15 - 46 U/L [facility] Bilirubin [Mass/Vol] 0.8 mg/dL 0.2 - 1 .3 mg/dL [facility] Calcium [Mass/Vol] 10.1 mg/dL 8.4 - 10. 4 mg/dL [facility] Chloride [Moles/Vol] 99 mmol/L 98 - 10 7 mmol/L [facility] CO2 [Moles/Vol] 24 mmol/L 22 - 30 mmol/L [facility] Creatinine [Mass/Vol] 0.92 mg/dL 0.52 - 1.04 mg/dL [facility] GFR/1.73 sq M.predicted MDRD (S/P/Bld) [Vol rate/Area] 64.7 mL/min/{1.73_m2} - PINF [facility] th Glucose [Mass/Vol] 299 mg/dL High 70 - 100 mg/dL [facility] Interpretation and review of laboratory results Abnormal [facility] Potassium [Moles/Vol] 4.1 mmol/L 3.5 - 5.1 mmol/L [facility] Protein [Mass/Vol] 6.5 g/dL 6.3 - 8.2 g/dL [facility] Sodium [Moles/Vol] 134 mmol/L Low 135 - 145 mmol/L [facility] Urea nitrogen [Mass/Vol] 21 mg/dL High 7 - 17 mg/dL [facility] Fibrin D-dimer FEU (PPP) [Ma ss/Vol]on 12-12-2023 Interpretation and review of laboratory results Abnormal [facility] Laboratory - Chemistry and C hemistry - challengeon 12-12-2023 Troponin I.cardiac [Mass/Vol] ng/mL NINF - 0.034 ng/mL [facility] Laboratory - Coagulationon 0 12-12-2023 Fibrin D-dimer FEU (PPP) [Mass/Vol] 0.57 mg/L High NINF - 0.50 mg/L [facility] Natriuretic peptide B [Mass/ Vol]on 12-12-2023 Interpretation and review of laboratory results Abnormal [facility] Natriuretic peptide B (Bld) [Mass/Vol] 418 pg/mL High <20 - 300 [facility] No Panel InformationOrdered By: Marbin Flores on 12-12-2023 P [place] 17 degrees [employer] Work Phone: NC Interval 145 ms [employer] Work Phone: QRS [place] -49 degrees [employer] Work Phone: QRSD Interval 79 ms [employer] Work Phone: QT Interval 331 ms [employer] Work Phone: QTC Interval 454 ms [employer] Work Phone: T Wave [place] 35 degrees [employer] Work Phone: [employer] Work Phone: No Panel Informationon 12-11 CV EPIPHANY [employer] Troponin I.cardiac [Mass/Vol ]on 12-12-2023 Interpretation and review of laboratory results Normal [facility] [employer] Vital signsOrdered By: Sukhdeep Flores on 12-12-2023 Heart rate 112 /min bpm [employer] Work Phone: XR Ribs Views and Chest PAon 12-11-2023 1. Right ninth rib fracture. No pneumothorax. 2. Coarse interstitial markings likely related to chronic pulmonary disease. Report Dictated on Electronically Signed By: Dom Guallpa MD Electronically Signed Date/Time: 12/11/2023 2:46 PM EDT [employer] Patient Name: BEVERLY SEE : 1945 Exam Date/Time: 12/11/2023 13:46 Procedure: XR RIBS 2 VIEWS RIGHT WITH CHEST ANTEROPOSTERIOR Ordering Provider: CATALAN ERICA Reason For Exam: FALLING RIGHT RIBS AND CHEST Indication: Fall, pain. Views: PA Chest and three views of the right ribs. Comparison: 08/11/2023. Findings: The cardiomediastinal silhouette is unchanged. Coarse interstitial markings likely related to chronic pulmonary disease. No consolidation, pulmonary edema or sizable pleural effusion. No pneumothorax is noted. Mildly displaced right lateral ninth rib fracture. Degenerative changes in the visualized spine and both shoulders. [facility] [employer] Dom Guallpa MD - 12/11/2023 Patient Name: BEVERLY AGEE : 1945 Exam Date/Time: 12/11/2023 13:46 Procedure: XR RIBS 2 VIEWS RIGHT WITH CHEST ANTEROPOSTERIOR Ordering Provider: CATALAN ERICA Reason For Exam: FALLING RIGHT RIBS AND CHEST Indication: Fall, pain. Views: PA Chest and three views of the right ribs. Comparison: 08/11/2023. Findings: The cardiomediastinal silhouette is unchanged. Coarse interstitial markings likely related to chronic pulmonary disease. No consolidation, pulmonary edema or sizable pleural effusion. No pneumothorax is noted. Mildly displaced right lateral ninth rib fracture. Degenerative changes in the visualized spine and both shoulders. IMPRESSION: 1. Right ninth rib fracture. No pneumothorax. 2. Coarse interstitial markings likely related to chronic pulmonary disease. Report Dictated on Electronically Signed By: Dom Guallpa MD Electronically Signed Date/Time: 12/11/2023 2:46 PM EDT [facility] Radiology Study observation (narrative) [facility] XR Ribs Views and Chest PAOr dered By: Dom Guallpa on 12-11-2023 [facility] [employer] Work Phone: XR Chest 2 Viewson 3 Views interstitial fibrosis without evidence of acute cardiopulmonary process. Report Dictated on Electronically Signed By: Leonel Cobos MD Electronically Signed Date/Time: 08/13/2023 2:34 PM [facility] RADIOLOGY SYSTEM Patient Name: BEVERLY ESE : 1945 Exam Date/Time: 08/11/2023 11:12 Procedure: XR CHEST 2 VIEWS Ordering Provider: IQBAL JOSEPH Reason For Exam: PAIN CLINICAL INFORMATION: Chest pain. Chest x-ray, AP and lateral: AP upright and lateral views are compared to the an AP portable examination of 11/29/2019. There is no abnormality of the mediastinum or cardiac silhouette. There are diffuse increased interstitial densities throughout both lungs consistent with chronic fibrosis. No pleural effusion, vascular congestion, focal consolidation or pneumothorax is seen. 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 [facility] RADIOLOGY SYSTEM Leonel Cboos MD - 08/13/2023 Patient Name: BEVERLY AGEE : 1945 Exam Date/Time: 08/11/2023 11:12 Procedure: XR CHEST 2 VIEWS Ordering Provider: IQBAL JOSEPH Reason For Exam: PAIN CLINICAL INFORMATION: Chest pain. Chest x-ray, AP and lateral: AP upright and lateral views are compared to the an AP portable examination of 11/29/2019. There is no abnormality of the mediastinum or cardiac silhouette. There are diffuse increased interstitial densities throughout both lungs consistent with chronic fibrosis. No pleural effusion, vascular congestion, focal consolidation or pneumothorax is seen. 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 IMPRESSION: Views interstitial fibrosis without evidence of acute cardiopulmonary process. Report Dictated on Electronically Signed By: Leonel Cobos MD Electronically Signed Date/Time: 08/13/2023 2:34 PM [facility] XR Chest 2 ViewsOrdered By: Leonel Cobos on 08-13-2023 [facility] Work Phone: XR Chest 2 Viewson 3 Radiology Study observation (narrative) [facility] XR Lumbar spine 2 or 3 Views on 03-20-2023 Etiology of symptoms is not certain. No acute process visualized. Consider bone scan for persistent symptoms. Report Dictated on Electronically Signed By: Gus Mac MD Electronically Signed Date/Time: 03/20/2023 2:27 PM EDT [facility] RADIOLOGY SYSTEM Patient Name: BEVERLY SEE : 1945 Exam Date/Time: 03/17/2023 09:14 Procedure: XR LUMBAR SPINE 2-3 VIEWS Ordering Provider: IQBAL JOSEPH Reason For Exam: M53.3 Indication: Trauma. Tailbone pain. Sacral pain. FINDINGS: Lumbar spine three views. Bone density normal. Moderate degenerative change multiple levels of the lumbar spine noted including disc space narrowing facet sclerosis spur formation. No compression deformity or fracture. Right hip replaced. [facility] Gus Mac MD - 03/20/2023 Patient Name: BEVERLY AGEE : 1945 Exam Date/Time: 03/17/2023 09:14 Procedure: XR LUMBAR SPINE 2-3 VIEWS Ordering Provider: IQBAL JOSEPH Reason For Exam: M53.3 Indication: Trauma. Tailbone pain. Sacral pain. FINDINGS: Lumbar spine three views. Bone density normal. Moderate degenerative change multiple levels of the lumbar spine noted including disc space narrowing facet sclerosis spur formation. No compression deformity or fracture. Right hip replaced. IMPRESSION: Etiology of symptoms is not certain. No acute process visualized. Consider bone scan for persistent symptoms. Report Dictated on Electronically Signed By: Gus Mac MD Electronically Signed Date/Time: 03/20/2023 2:27 PM EDT [facility] [employer] XR Lumbar spine 2 or 3 Views Ordered By: Gus Mac on 03-20-2023 [facility] [employer] Work Phone: XR Lumbar spine 2 or 3 Views on 03-17-2023 Radiology Study observation (narrative) [facility] AMB POC URINALYSIS DIP STICK AUTO W/O MICROon 08-30-2022 Bilirubin, UA Negative [facility] Blood, UA Negative [facility] Glucose, UA Negative [facility] Interpretation and review of laboratory results Abnormal [facility] Ketones, UA Negative [facility] Leukocytes, UA Moderate [facility] Comment on above: 500 Nitrite, UA Positive [facility] pH, UA 5.0 [facility] Protein, UA 30 [facility] Spec Grav, UA 1.020 [facility] Urobilinogen, UA 0.2 [facility] [employer] Basic Metabolic Panelon 12-0 Calcium [Mass/Vol] 10.0 mg/dL Normal 8.4-10.4 [facility] Comment on above: Performed By: #### H EMDF, BMP3M, LFT3, LIPA4 #### [address] [address] [address] [place], [place] Glucose [Mass/Vol] 293 mg/dL High 70-100 [facility] Comment on above: Performed By: #### H EMDF, BMP3M, LFT3, LIPA4 #### [address] [address] [place], [place] Urea nitrogen [Mass/Vol] 15 mg/dL Normal 9-20 [facility] Comment on above: Performed By: #### H EMDF, BMP3M, LFT3, LIPA4 #### [address] [address] [place], [place] Anion gap [Moles/Vol] 10 mmol/L Normal 3-13 [facility] Comment on above: Performed By: #### H EMDF, BMP3M, LFT3, LIPA4 #### [address] [address] [place], [place] CO2 [Moles/Vol] 26 mmol/L Normal 22-30 [facility] Comment on above: Performed By: #### H EMDF, BMP3M, LFT3, LIPA4 #### [address] [address] [place], [place] Creatinine [Mass/Vol] 0.77 mg/dL Normal 0.52-1.25 [facility] Comment on above: Performed By: #### H EMDF, BMP3M, LFT3, LIPA4 #### [address] [address] [address] [place], [place] GFR/1.73 sq M.predicted among blacks MDRD (S/P/Bld) [Vol rate/Area] 88.2 mL/min/{1.73_m2} Normal >60 [facility] Comment on above: Performed By: #### H EMDF, BMP3M, LFT3, LIPA4 #### [address] [address] [place], [place] GFR/1.73 sq M.predicted among non-blacks MDRD (S/P/Bld) [Vol rate/Area] 76.1 mL/min/{1.73_m2} Normal >60 [facility] Comment on above: Result Comment: KDIG O guidelines provide the following GFR categories: Stage GFR(ml/min/1.73 m2) Terms G1 >=90 Normal or high G2 60-89 Mildly decreased* G3a 45-59 Mildly to moderately decreased G3b 30-44 Moderately to severely decreased G4 15-29 Severely decreased G5 <15 Kidney failure *Relative to young adult level. In the absence of evidence of kidney damage, neither GFR category G1 nor G2 fulfill the criteria for CKD. The CKD-EPI equation is validated in individuals 18 years of age and older. Currently the best equation for estimating glomerular filtration rate (GFR) from serum creatinine in children is the Bedside Leonardo equation. It is less accurate in patients with extremes of muscle mass, restriction of dietary protein, ingestion of creatine, extra-renal metabolism of creatinine, or treatment with medications that affect renal tubular creatinine secretion. Performed By: #### H EMDF, BMP3M, LFT3, LIPA4 #### [address] Chloride [Moles/Vol] 99 mmol/L Normal 98-107 [facility] Comment on above: Performed By: #### H EMDF, BMP3M, LFT3, LIPA4 #### [address] Potassium [Moles/Vol] 4.3 mmol/L Normal 3.5-5.1 [facility] Comment on above: Performed By: #### H EMDF, BMP3M, LFT3, LIPA4 #### [address] Sodium [Moles/Vol] 135 mmol/L Normal 135-145 [facility] Comment on above: Performed By: #### H EMDF, BMP3M, LFT3, LIPA4 #### [address] Basic Metabolic Panel w/ Ref james to MGon 08-01-2021 Anion gap [Moles/Vol] 10 mmol/L 3 - 13 mmol/L [facility] Calcium [Mass/Vol] 10.0 mg/dL 8.4 - 10. 4 mg/dL [facility] Chloride [Moles/Vol] 99 mmol/L 98 - 10 7 mmol/L [facility] CO2 [Moles/Vol] 26 mmol/L 22 - 30 mmol/L [facility] Creatinine [Mass/Vol] 0.77 mg/dL 0.52 - 1.25 mg/dL [facility] EGFR IF NonAfrican Ecuadorean 76.1 mL/min >60 [facility] Comment on above: KDIGO guidelines pro vide the following GFR categories: Stage GFR(ml/min/1.73 m2) Terms G1 >=90 Normal or high G2 60-89 Mildly decreased* G3a 45-59 Mildly to moderately decreased G3b 30-44 Moderately to severely decreased G4 15-29 Severely decreased G5 <15 Kidney failure *Relative to young adult level. In the absence of evidence of kidney damage, neither GFR category G1 nor G2 fulfill the criteria for CKD. The CKD-EPI equation is validated in individuals 18 years of age and older. Currently the best equation for estimating glomerular filtration rate (GFR) from serum creatinine in children is the Bedside Leonardo equation. It is less accurate in patients with extremes of muscle mass, restriction of dietary protein, ingestion of creatine, extra-renal metabolism of creatinine, or treatment with medications that affect renal tubular creatinine secretion. GFR/1.73 sq M.predicted among blacks MDRD (S/P/Bld) [Vol rate/Area] 88.2 mL/min/{1.73_m2} >60 [facility] Glucose [Mass/Vol] 293 mg/dL High 70 - 100 mg/dL [facility] Interpretation and review of laboratory results Abnormal [facility] Potassium [Moles/Vol] 4.3 mmol/L 3.5 - 5.1 mmol/L [facility] Sodium [Moles/Vol] 135 mmol/L 135 - 145 mmol/L [facility] Urea nitrogen (BldV) [Mass/Vol] 15 mg/dL 9 - 20 mg/dL [facility] CBC Auto Differentialon 12-0 Absolute Baso # 0.1 10*3/uL 0.0 - 0.2 10*3/uL [facility] Absolute Neut # 8.9 10*3/uL High 1.8 - 7.0 10*3/uL [facility] Basophils/100 WBC (Bld) 0.6 % 0.0 - 2.0 % [facility] Eosinophils (Bld) [#/Vol] 0.2 10*3/uL 0.0 - 0.5 10*3/uL [facility] Eosinophils/100 WBC (Bld) 1.3 % 1.0 - 6.0 % [facility] Granulocytes/100 WBC (Bld) 70.0 % 40.0 - 80.0 % [facility] Hematocrit (Bld) [Volume fraction] 46.6 % 35.0 - 47.0 % [facility] Hemoglobin.gastrointest inal spec 1 Ql (Stl) 15.6 g/dL 11.7 - 16.0 g/dL [facility] Interpretation and review of laboratory results Abnormal [facility] Lymphocytes (Bld) [#/Vol] 2.7 10*3/uL 1.0 - 4.3 10*3/uL [facility] Lymphocytes/100 WBC (Bld) 21.6 % 20.0 - 40.0 % [facility] MCH (RBC) [Entitic mass] 29.7 pg 26.0 - 34.0 pg [facility] MCHC (RBC) [Mass/Vol] 33.5 % 32.0 - 36.0 % [facility] MCV (RBC) [Entitic vol] 88.9 fL 79.0 - 98.0 fL [facility] Monocytes (Bld) [#/Vol] 0.8 10*3/uL 0.0 - 0.8 10*3/uL [facility] Monocytes/100 WBC (Bld) 6.5 % 2.0 - 10.0 % [facility] Platelet distribution width (Bld) [Ratio] 13.5 % 11.5 - 14.5 % [facility] Platelet mean volume (Bld) [Entitic vol] 7.9 fL 7.4 - 10.4 fL [facility] Platelets (Bld) [#/Vol] 224 10*3/uL 140 - 440 10*3/uL [facility] RBC (Bld) [#/Vol] 5.24 10*6/uL High 3.80 - 5.2 0 10*6/uL [facility] WBC (Bld) [#/Vol] 12.7 10*3/uL High 3.6 - 10.7 10*3/uL [facility] Test Performed by [facility], [address] [place] [id number] [facility] CR Knee 3 Views Lefton 08-01 CR Knee 3 Views Left Patient Name: BEVERLY CASTANON Diagnostic Radiology ACCESSION EXAM DATE/TIME PROCEDURE ORDERING PROVIDER [id number] 08/01/2021 17:33 EST CR Knee 3 Views Left [id number] BARRIOS CPT code 73313 Reason For Exam (CR Knee 3 Views Left) pain sp fall Report LEFT KNEE THREE VIEWS CLINICAL INDICATION: pain sp fall TECHNIQUE: Three views of the left knee. COMPARISON: None FINDINGS: Bones are osteopenic. Left total knee arthroplasty appears uncomplicated. Small joint effusion. No fracture or dislocation seen. IMPRESSION: 1. Left total knee arthroplasty. Small joint effusion. Report Dictated on Workstation: ADIN Final Dictated: 08/01/2021 6:19 pm Dictating Physician: MD CAMARENA JOHN R Signed Date and Time: 08/01/2021 6:20 pm Signed by: MD CAMARENA JOHN R Transcribed Date and Time: 08/01/2021 6:[address] [facility] [address] CHEST WO CONTRASTon 08-01 Patient Name: BEVERLY SEE Computed Tomography ACCESSION EXAM DATE/TIME PROCEDURE ORDERING PROVIDER [id number] 08/01/2021 14:[address] Thorax w/o Contrast [id number] KEN HODGE CPT code 11228 Reason For Exam (CT Thorax w/o Contrast) rib and LUQ pain Report CT scan chest: 08/01/2021. CLINICAL INFORMATION: Left-sided pain. FINDINGS: CT scans of the chest were performed at 3 mm slice thickness. No prior studies for comparison. There is a small left pleural effusion and left basal atelectasis. There is a nondisplaced fracture of the left 11th rib. No pneumothorax is identified. There is respiratory motion throughout the examination which could obscure small nodules. No parenchymal mass lesions or infiltrates are otherwise seen. No right pleural effusion is identified. No mediastinal or hilar lymphadenopathy is identified. IMPRESSION: Fracture left 11th rib with left pleural effusion. Left basal atelectasis. Study limited due to lack of contrast. No abnormalities otherwise identified. Report Dictated on --- Final --- Dictated: 08/01/2021 2:47 pm Dictating Physician: MD SHARMA RISA Signed Date and Time: 08/01/2021 2:55 pm Signed by: MD SHARMA RISA Transcribed Date and Time: 08/01/2021 2:47 [facility] Laly Sharma MD - 08/01/2021 [id number] ACCESSION EXAM DATE/TIME PROCEDURE ORDERING PROVIDER [id number] 08/01/2021 14:[address] Thorax w/o Contrast [id number] -KEN STRONG CPT code 18903 Reason For Exam (CT Thorax w/o Contrast) rib and LUQ pain Report CT scan chest: 08/01/2021. CLINICAL INFORMATION: Left-sided pain. FINDINGS: CT scans of the chest were performed at 3 mm slice thickness. No prior studies for comparison. There is a small left pleural effusion and left basal atelectasis. There is a nondisplaced fracture of the left 11th rib. No pneumothorax is identified. There is respiratory motion throughout the examination which could obscure small nodules. No parenchymal mass lesions or infiltrates are otherwise seen. No right pleural effusion is identified. No mediastinal or hilar lymphadenopathy is identified. IMPRESSION: Fracture left 11th rib with left pleural effusion. Left basal atelectasis. Study limited due to lack of contrast. No abnormalities otherwise identified. Report Dictated on --- Final --- Dictated: 08/01/2021 2:47 pm Dictating Physician: MD SAHRMA RISA Signed Date and Time: 08/01/2021 2:55 pm Signed by: MD SHARMA RISA Transcribed Date and Time: 08/01/2021 2:47 [facility] Work Phone: Radiology Study observation (narrative) [facility] Work Phone: CT CHEST WO CONTRASTOrdered By: Laly Sharma on 08-01-2021 [facility] Work Phone: CT Chest w/o Contraston CT Chest w/o Contrast [facility]: [id number] Comput[facility] Tom[facility] ACCESSION EXAM DATE/TIME PROCEDURE ORDERING PROVIDER [id number] 08/01/2021 14:[address] Thorax w/o Contrast [id number] -KEN STRONG CPT code 13676 Reason For Exam (CT Thorax w/o Contrast) rib and LUQ pain Report CT scan chest: 08/01/2021. CLINICAL INFORMATION: Left-sided pain. FINDINGS: CT scans of the chest were performed at 3 mm slice thickness. No prior studies for comparison. There is a small left pleural effusion and left basal atelectasis. There is a nondisplaced fracture of the left 11th rib. No pneumothorax is identified. There is respiratory motion throughout the examination which could obscure small nodules. No parenchymal mass lesions or infiltrates are otherwise seen. No right pleural effusion is identified. No mediastinal or hilar lymphadenopathy is identified. IMPRESSION: Fracture left 11th rib with left pleural effusion. Left basal atelectasis. Study limited due to lack of contrast. No abnormalities otherwise identified. Report Dictated on Final Dictated: 08/01/2021 2:47 pm Dictating Physician: MD SHARMA RISA Signed Date and Time: 08/01/2021 2:55 pm Signed by: MD SHARMA RISA Transcribed Date and Time: 08/01/2021 2:47 Normal [facility] ED Provider Noteon ED Provider Note Emergency Department Encounter [facility] EMERGENCY DEPT Patient: Beverly Agee : 1945 Date of Evaluation: 08/01/2021 ED Supervising Physician: Josh Mercedes MD I independently examined and evaluated Beverly Agee. In brief, Beverly Agee is a 75 y.o. female that presents to the emergency department left-sided thoracoabdominal pain Focused exam: Lungs clear to auscultation slight pain with palpation lateral rib cage abdomen is benign Brief ED course/MDM: Patient presenting with thoracoabdominal pain after a fall 3 days ago she is awake alert well-appearing CT shows 1/11 rib fracture with a hemothorax plan to consult trauma. All diagnostic, treatment, and disposition decisions were made by myself in conjunction with the MILKA. For all further details of the patient's emergency department visit, please see their documentation. (Please note that portions of this note may have been completed with a voice recognition program. Efforts were made to edit the dictations but occasionally words are mis-transcribed.) Josh Mercedes MD [facility] Josh Mercedes MD 08/01/21 1530 Normal [facility] Hemogram w/ Autodiffon 08-01 Abs Baso Cnt 0.1 10*3/uL Normal 0.0-0.2 [facility] Comment on above: Performed By: #### H EMDF, BMP3M, LFT3, LIPA4 #### [address] [address] Abs Neutrophile Cnt 8.9 10*3/uL High 1.8-7.0 [facility] Comment on above: Performed By: #### H EMDF, BMP3M, LFT3, LIPA4 #### [address] [address] Basophils/100 WBC (Bld) 0.6 % Normal 0.0-2.0 S [facility] Comment on above: Performed By: #### H EMDF, BMP3M, LFT3, LIPA4 #### [address] [address] Eosinophils (Bld) [#/Vol] 0.2 10*3/uL Normal 0.0-0.5 [facility] Comment on above: Performed By: #### H EMDF, BMP3M, LFT3, LIPA4 #### [address] [address] Eosinophils/100 WBC (Bld) 1.3 % Normal 1.0-6.0 [facility] Comment on above: Performed By: #### H EMDF, BMP3M, LFT3, LIPA4 #### [address] [address] Erythrocyte distribution width (RBC) [Ratio] 13.5 % Normal 11.5-14.5 [facility] Comment on above: Performed By: #### H EMDF, BMP3M, LFT3, LIPA4 #### [address] Granulocytes/100 WBC (Bld) 70.0 % Normal 40.0-80.0 [facility] Comment on above: Performed By: #### H EMDF, BMP3M, LFT3, LIPA4 #### [address] Hematocrit (Bld) [Volume fraction] 46.6 % Normal 35.0-47.0 [facility] Comment on above: Performed By: #### H EMDF, BMP3M, LFT3, LIPA4 #### [address] Hemoglobin (Bld) [Mass/Vol] 15.6 g/dL Normal 11.7-16.0 [facility] Comment on above: Performed By: #### H EMDF, BMP3M, LFT3, LIPA4 #### [address] Lymphocytes (Bld) [#/Vol] 2.7 10*3/uL Normal 1.0-4.3 [facility] Comment on above: Performed By: #### H EMDF, BMP3M, LFT3, LIPA4 #### [address] Lymphocytes/100 WBC (Bld) 21.6 % Normal 20.0-40.0 [facility] Comment on above: Performed By: #### H EMDF, BMP3M, LFT3, LIPA4 #### [address] MCH (RBC) [Entitic mass] 29.7 pg Normal 26.0-34.0 [facility] Comment on above: Performed By: #### H EMDF, BMP3M, LFT3, LIPA4 #### [address] MCHC 33.5 % Normal 32.0-36.0 [facility] Comment on above: Performed By: #### H EMDF, BMP3M, LFT3, LIPA4 #### [place] [address] [address] [place], [place] MCV (RBC) [Entitic vol] 88.9 fL Normal 79.0-98.0 S [facility] Comment on above: Performed By: #### H EMDF, BMP3M, LFT3, LIPA4 #### [address] [address] [address] [place], [place] Monocytes (Bld) [#/Vol] 0.8 10*3/uL Normal 0.0-0.8 [facility] Comment on above: Performed By: #### H EMDF, BMP3M, LFT3, LIPA4 #### [address] Monocytes/100 WBC (Bld) 6.5 % Normal 2.0-10.0 S [facility] Comment on above: Performed By: #### H EMDF, BMP3M, LFT3, LIPA4 #### [address] [address] [address] [place], [place] Platelet mean volume (Bld) [Entitic vol] 7.9 fL Normal 7.4-10.4 [facility] Comment on above: Performed By: #### H EMDF, BMP3M, LFT3, LIPA4 #### [place] [place] [address] [address] [place], [place] Platelets (Bld) [#/Vol] 224 10*3/uL Normal 140-440 [facility] Comment on above: Performed By: #### H EMDF, BMP3M, LFT3, LIPA4 #### [place] [place] [address] [address] [place], [place] RBC (Bld) [#/Vol] 5.24 10*6/uL High 3.80-5.20 [facility] Comment on above: Performed By: #### H EMDF, BMP3M, LFT3, LIPA4 #### [address] [address] [place], [place] WBC (Bld) [#/Vol] 12.7 10*3/uL High 3.6-10.7 [facility] Comment on above: Performed By: #### H EMDF, BMP3M, LFT3, LIPA4 #### [place] [address] [address] [place] Hepatic Functionon 1 ALP [Catalytic activity/Vol] 92 U/L Normal 38-126 [facility] Comment on above: Performed By: #### H EMDF, BMP3M, LFT3, LIPA4 #### [place] [place] [address] [address] [place], [place] ALT [Catalytic activity/Vol] 11 U/L Normal 0-34 [facility] Comment on above: Result Comment: The ALT test is performed by an updated assay method. Please note that the reference intervals have been changed and are now sex specific. Performed By: #### H EMDF, BMP3M, LFT3, LIPA4 #### [place] [place] [address] [address] [place], [place] AST [Catalytic activity/Vol] 16 U/L Normal 15-46 [facility] Comment on above: Performed By: #### H EMDF, BMP3M, LFT3, LIPA4 #### [address] [place] [address] [address] [place], [place] Protein [Mass/Vol] 7.0 g/dL Normal 6.3-8.2 [facility] Comment on above: Performed By: #### H EMDF, BMP3M, LFT3, LIPA4 #### [place] [place] [address] [address] [place] Bilirubin [Mass/Vol] 0.6 mg/dL Normal 0.2-1.3 [facility] Comment on above: Performed By: #### H EMDF, BMP3M, LFT3, LIPA4 #### [place] [place] [address] [address] [place], [place] Bilirubin.indirect [Mass/Vol] 0.0 mg/dL Normal 0.0-0.3 [facility] Comment on above: Performed By: #### H EMDF, BMP3M, LFT3, LIPA4 #### [place] [address] [address] [place] Albumin [Mass/Vol] 4.0 g/dL Normal 3.5-5.0 [facility] Comment on above: Performed By: #### H EMDF, BMP3M, LFT3, LIPA4 #### [address] [address] Hepatic Function Panelon Albumin [Mass/Vol] 4.0 g/dL 3.5 - 5.0 g/dL [facility] ALP (Bld) [Catalytic activity/Vol] 92 U/L 38 - 126 U/L [facility] ALT [Catalytic activity/Vol] 11 U/L 0 - 34 U/L [facility] Comment on above: The ALT test is perf ormed by an updated assay method. Please note that the reference intervals have been changed and are now sex specific. AST [Catalytic activity/Vol] 16 U/L 15 - 46 U/L [facility] Bilirubin [Mass/Vol] 0.6 mg/dL 0.2 - 1 .3 mg/dL [facility] Bilirubin.indirect [Mass/Vol] 0.0 mg/dL 0.0 - 0.3 mg/dL [facility] Free PSA/Total PSA [Mass fraction] 7.0 g/dL 6.3 - 8.2 g/dL [facility] Lipaseon 08-01-2021 Lipase [Catalytic activity/Vol] 36 U/L Normal 23-300 [facility] Comment on above: Performed By: #### H EMDF, BMP3M, LFT3, LIPA4 #### [address] [address] Lipase [Catalytic activity/Vol] 36 U/L 23 - 300 U/L [facility] No Panel Informationon 08-01 Test Performed by [facility], [address] [place] [id number] [facility] XR KNEE LEFT (3 VIEWS)on Patient Name: BEVERLY SEE Diagnostic Radiology ACCESSION EXAM DATE/TIME PROCEDURE ORDERING PROVIDER [id number] 08/01/2021 17:33 EST CR Knee 3 Views Left [id number] STEVEN MUNROE CPT code 37419 Reason For Exam (CR Knee 3 Views Left) pain sp fall Report LEFT KNEE THREE VIEWS CLINICAL INDICATION: pain sp fall TECHNIQUE: Three views of the left knee. COMPARISON: None FINDINGS: Bones are osteopenic. Left total knee arthroplasty appears uncomplicated. Small joint effusion. No fracture or dislocation seen. IMPRESSION: 1. Left total knee arthroplasty. Small joint effusion. Report Dictated on Workstation: ADIN --- Final --- Dictated: 08/01/2021 6:19 pm Dictating Physician: MD CAMARENA JOHN R Signed Date and Time: 08/01/2021 6:20 pm Signed by: MD CAMARENA JOHN R Transcribed Date and Time: 08/01/2021 6:19 [facility] Gus Camarena MD - 08/01/2021 Patient Name: BEVERLY AGEE Diagnostic Radiology ACCESSION EXAM DATE/TIME PROCEDURE ORDERING PROVIDER [id number] 08/01/2021 17:33 EST CR Knee 3 Views Left [id number] [facility] CPT code 93020 Reason For Exam (CR Knee 3 Views Left) pain sp fall Report LEFT KNEE THREE VIEWS CLINICAL INDICATION: pain sp fall TECHNIQUE: Three views of the left knee. COMPARISON: None FINDINGS: Bones are osteopenic. Left total knee arthroplasty appears uncomplicated. Small joint effusion. No fracture or dislocation seen. IMPRESSION: 1. Left total knee arthroplasty. Small joint effusion. Report Dictated on Workstation: ADIN --- Final --- Dictated: 08/01/2021 6:19 pm Dictating Physician: MD CAMARENA JOHN R Signed Date and Time: 08/01/2021 6:20 pm Signed by: MD CAMARENA JOHN R Transcribed Date and Time: 08/01/2021 6:19 [facility] Work Phone: Radiology Study observation (narrative) [facility] Work Phone: XR KNEE LEFT (3 VIEWS)Chrise florentino By: Gus Camarena on 08-01-2021 [facility] Work Phone: CULT/STAIN - AEROBIC AND HARVINDER Silveira 01-26-2020 CULT/STAIN - AEROBIC AND ANAEROBIC STAIN GRAM --> Status: F Few polymorphonuclear cells/lpf. No organisms seen. No organisms seen. CULT./ST. BACTERIA --> Status: F No growth at 5 days. CULTURE ANAEROBE --> Status: F No growth of anaerobes at 5 days. Normal [facility] Comment on above: Performed By: #### C VOLODYMYR #### [facility] [address] [place] [address] CULTURE AND STAIN - TISSUEon 01-24-2020 CULTURE AND STAIN - TISSUE CULTURE & STAIN - TISSUE --> Status: F No growth at 3 days. Normal [facility] Comment on above: Performed By: #### T SGL #### [facility] [address] #### LRC #### [address] [address] Leukodepleted Red Cellson Leukodepleted Red Cells Leukodepleted Re d Cells: [id number] released 01/24/20 08:46 TR1 Unit Blood Type: O Unit Blood Rh: POS Blood Product Code: AS3 Unit Number: [id number] Unit Status: released Barcoded Unit Number: =[id number] Barcoded Product Code: = Barcoded ABO/Rh: =%5100 Unit Expiration: [id number] Leukodepleted Red Cells: [id number] released 01/24/20 08:46 TR1 Unit Blood Type: O Unit Blood Rh: POS Blood Product Code: LP2 Unit Number: [id number] Unit Status: released Barcoded Unit Number: =[id number] Barcoded Product Code: = Barcoded ABO/Rh: =%5100 Unit Expiration: [id number] Normal [facility] Comment on above: Performed By: #### T SGL #### [facility] [address] [place], [place] [address] [place] [address] #### LRC #### [address] [address] Glucose,Bedsideon 01-23-2020 Glucose [Mass/Vol] 214 mg/dL High 70-100 [facility] Comment on above: Result Comment: Test performed by glucose meter. Results may be 10%-15% lower than serum/plasma values. (CLIA ID [id number]) Performed By: #### T SGL #### [facility] [address] [place] [address] [facility] #### LRC #### [address] [address] Glucose [Mass/Vol] 96 mg/dL Normal 70-100 [facility] Comment on above: Result Comment: Test performed by glucose meter. Results may be 10%-15% lower than serum/plasma values. (CLIA ID [id number]) Performed By: #### T SGL #### [facility] [address] [place] [address] [facility] #### LRC #### [address] [address] POCT Glucoseon 01-23-2020 Glucose [Mass/Vol] 214 mg/dL High 70 - 100 mg/dL [place], [place] Comment on above: Test performed by gl ucose meter. Results may be 10%-15% lower than serum/plasma values. (CLIA ID [id number]) Interpretation and review of laboratory results Abnormal [place], [place] Test Performed by [facility], [address] Glucose [Mass/Vol] 96 mg/dL 70 - 100 mg/dL [place] Comment on above: Test performed by gl ucose meter. Results may be 10%-15% lower than serum/plasma values. (CLIA ID [id number]) Test Performed by [facility], [address] [place], [place] [address] [place] [address] [id number] 01-23-2020 SARS-CoV-2 SARS-CoV-2 --> Statu s: F Not Detected Expected Result: Not Detected _ Real-time, RT-PCR performed on the [employer] System by the [facility]. Negative results do not preclude SARS-CoV-2 infection and should not be used as the sole basis for treatment or other patient management decisions. This assay was developed by [employer] and distributed under an Emergency Use Authorization (EUA) granted by the FDA for the qualitative detection of SARS-CoV-2 nucleic acid. Expected Result: Not Detected _ Real-time, RT-PCR performed on the [employer] System by the [facility]. Negative results do not preclude SARS-CoV-2 infection and should not be used as the sole basis for treatment or other patient management decisions. This assay was developed by [employer] and distributed under an Emergency Use Authorization (EUA) granted by the FDA for the qualitative detection of SARS-CoV-2 nucleic acid. Normal [facility] Comment on above: Order Comment: Speci men Source Comment:Nasopharyngeal Swab Performed By: #### T SGL #### [facility] [address] [place] [address] [facility] #### LRC #### [address] [address] Basic Metabolic Panelon 05-2 Anion gap [Moles/Vol] 12 Normal [facility] Comment on above: Performed By: #### T SGL #### [facility] [address] [place] [address] [facility] #### LRC #### [address] [address] Calcium [Mass/Vol] 9.5 mg/dL Normal 8.4-10.4 [facility] Comment on above: Performed By: #### T SGL #### [facility] [address] [place] [address] [facility] #### LRC #### [address] [address] CO2 [Moles/Vol] 23 mmol/L Normal 22-30 [facility] Comment on above: Performed By: #### T SGL #### [facility] [address] [place] [address] [facility] #### LRC #### [address] [address] Glucose [Mass/Vol] 273 mg/dL High 70-100 [facility] Comment on above: Performed By: #### T SGL #### [facility] [address] [place] [address] [facility] #### LRC #### [address] [address] Urea nitrogen [Mass/Vol] 11 mg/dL Normal 7-20 [facility] Comment on above: Performed By: #### T SGL #### [facility] [address] [place] [address] [facility] #### LRC #### [address] [address] Creatinine [Mass/Vol] 0.61 mg/dL Normal 0.52-1.25 [facility] Comment on above: Performed By: #### T SGL #### [facility] [address] [place] [address] [facility] #### LRC #### [address] [address] GFR/1.73 sq M predicted among blacks MDRD (S/P/Bld) [Vol rate/Area] mL/min/{1.73_m2} Normal >60 [facility] Comment on above: Performed By: #### T SGL #### [place] [address] [place] [address] [facility] #### LRC #### [address] [address] GFR/1.73 sq M predicted among non-blacks MDRD (S/P/Bld) [Vol rate/Area] mL/min/{1.73_m2} Normal >60 [facility] Comment on above: Result Comment: KDIG O guidelines provide the following GFR categories: Stage GFR(ml/min/1.73 m2) Terms G1 >=90 Normal or high G2 60-89 Mildly decreased* G3a 45-59 Mildly to moderately decreased G3b 30-44 Moderately to severely decreased G4 15-29 Severely decreased G5 <15 Kidney failure *Relative to young adult level. In the absence of evidence of kidney damage, neither GFR category G1 nor G2 fulfill the criteria for CKD. The CKD-EPI equation is validated in individuals 18 years of age and older. Currently the best equation for estimating glomerular filtration rate (GFR) from serum creatinine in children is the Bedside Leonardo equation. It is less accurate in patients with extremes of muscle mass, restriction of dietary protein, ingestion of creatine, extra-renal metabolism of creatinine, or treatment with medications that affect renal tubular creatinine secretion. Performed By: #### T SGL #### [facility] [address] [place] [address] [facility] #### LRC #### [address] [address] Chloride [Moles/Vol] 101 mmol/L Normal 98-107 [facility] Comment on above: Performed By: #### T SGL #### [facility] [address] [place] [address] [facility] #### LRC #### [address] [address] Potassium [Moles/Vol] 4.4 mmol/L Normal 3.5-5.1 [facility] Comment on above: Performed By: #### T SGL #### [facility] [address] [place] [address] [facility] #### LRC #### [address] [address] Sodium [Moles/Vol] 135 mmol/L Normal 135-145 [facility] Comment on above: Performed By: #### T SGL #### [facility] [address] [place] [address] [facility] #### LRC #### [address] [address] Anion gap [Moles/Vol] 12 mmol/L [place], [place] Calcium [Mass/Vol] 9.5 mg/dL 8.4 - 10. 4 mg/dL [place], [place] Chloride [Moles/Vol] 101 mmol/L 98 - 10 7 mmol/L [place] CO2 [Moles/Vol] 23 mmol/L 22 - 30 mmol/L [place] Creatinine [Mass/Vol] 0.61 mg/dL 0.52 - 1.25 mg/dL [place] EGFR IF NonAfrican Ecuadorean >90.0 >60 mL/min [place] Comment on above: KDIGO guidelines pro vide the following GFR categories: Stage GFR(ml/min/1.73 m2) Terms G1 >=90 Normal or high G2 60-89 Mildly decreased* G3a 45-59 Mildly to moderately decreased G3b 30-44 Moderately to severely decreased G4 15-29 Severely decreased G5 <15 Kidney failure *Relative to young adult level. In the absence of evidence of kidney damage, neither GFR category G1 nor G2 fulfill the criteria for CKD. The CKD-EPI equation is validated in individuals 18 years of age and older. Currently the best equation for estimating glomerular filtration rate (GFR) from serum creatinine in children is the Bedside Leonardo equation. It is less accurate in patients with extremes of muscle mass, restriction of dietary protein, ingestion of creatine, extra-renal metabolism of creatinine, or treatment with medications that affect renal tubular creatinine secretion. GFR/1.73 sq M predicted among blacks MDRD (S/P/Bld) [Vol rate/Area] mL/min/{1.73_m2} >60 mL/min [place], [place] Glucose [Mass/Vol] 273 mg/dL High 70 - 100 mg/dL [place] Interpretation and review of laboratory results Abnormal [place] Potassium [Moles/Vol] 4.4 mmol/L 3.5 - 5.1 mmol/L [place] Sodium [Moles/Vol] 135 mmol/L 135 - 145 mmol/L [place] Urea nitrogen [Mass/Vol] 11 mg/dL 7 - 20 mg/dL [place] Test Performed by [facility] [employer] [facility], [address] [place], [place] [address] [place] COVID-19on 01-22-2020 SARS-CoV-2 Not Detected Expected Result: Not Detected _ Real-time, RT-PCR performed on the [employer] System by the [facility]. Negative results do not preclude SARS-CoV-2 infection and should not be used as the sole basis for treatment or other patient management decisions. This assay was developed by [employer] and distributed under an Emergency Use Authorization (EUA) granted by the FDA for the qualitative detection of SARS-CoV-2 nucleic acid. [place], [place] Test Performed by [employer] [facility], [address] [place] [address] Specimen Source Comment:Nasopharyngeal Swab [facility] [place], [place] CULTURE ANAEROBEon 0 CULTURE ANAEROBE CULTURE ANAEROBE --> Status: F No growth of anaerobes at 5 days. STAIN GRAM --> Status: F Rare polymorphonuclear cells/lpf. No organisms seen. No organisms seen. Normal [facility] Comment on above: Performed By: #### T SGL #### [facility] [address] [place] [address] [facility] #### LRC #### [address] [address] Glucose,Bedsideon 01-22-2020 Glucose [Mass/Vol] 99 mg/dL Normal 70-100 [facility] Comment on above: Result Comment: Test performed by glucose meter. Results may be 10%-15% lower than serum/plasma values. (CLIA ID [id number]) Performed By: #### T SGL #### [facility] [address] [place], [place] [address] [place] [address] #### LRC #### [address] [address] Glucose [Mass/Vol] 220 mg/dL High 70-100 [facility] Comment on above: Result Comment: Test performed by glucose meter. Results may be 10%-15% lower than serum/plasma values. (CLIA ID [id number]) Performed By: #### T SGL #### [facility] [address] [place] [address] [facility] #### LRC #### [address] [address] Glucose [Mass/Vol] 158 mg/dL High 70-100 [facility], [place] Comment on above: Test performed by gl ucose meter. Results may be 10%-15% lower than serum/plasma values. (CLIA ID [id number]) Result Comment: Test performed by glucose meter. Results may be 10%-15% lower than serum/plasma values. (CLIA ID [id number]) Performed By: #### T SGL #### [facility] [address] [place] [address] [facility] #### LRC #### [address] [address] Glucose [Mass/Vol] 310 mg/dL High 70-100 [facility] Comment on above: Result Comment: Test performed by glucose meter. Results may be 10%-15% lower than serum/plasma values. (CLIA ID [id number]) Performed By: #### T SGL #### [facility] [address] [place] [address] [facility] #### LRC #### [address] [address] Hemoglobin AND Hematocriton 01-22-2020 Hematocrit (Bld) [Volume fraction] 30.8 % Low 35.0-47.0 [facility] Comment on above: Performed By: #### H GHCT, BMP3 #### [facility] [address] [place] [address] Hemoglobin (Bld) [Mass/Vol] 10.1 g/dL Low 11.7-16.0 [facility] Comment on above: Performed By: #### H GHCT, BMP3 #### [facility] [address] [place] [address] Hemoglobin and hematocrit, b loodon 01-22-2020 Hematocrit (Bld) [Volume fraction] 30.8 % Low 35 - 47 % [place] Hemoglobin (Bld) [Mass/Vol] 10.1 g/dL Low 11.7 - 16 g/dL [place] Interpretation and review of laboratory results Abnormal [facility], [place] Test Performed by [facility], [address] [place], [place] [address] [place], [place] [address] [place], [place] Otheron 01-22-2020 Interpretation and review of laboratory results Abnormal [facility] [place] [place] Test Performed by [facility], [address] [place], [place] [address] [place] [address], [place] POCT Glucoseon 01-22-2020 Glucose [Mass/Vol] 99 mg/dL 70 - 100 mg/dL [place] Comment on above: Test performed by gl ucose meter. Results may be 10%-15% lower than serum/plasma values. (CLIA ID [id number]) Test Performed by [facility], [address], [place], [place] [address] [place] Glucose [Mass/Vol] 220 mg/dL High 70 - 100 mg/dL [place] Comment on above: Test performed by gl ucose meter. Results may be 10%-15% lower than serum/plasma values. (CLIA ID [id number]) Glucose [Mass/Vol] 310 mg/dL High 70 - 100 mg/dL [place] Comment on above: Test performed by gl ucose meter. Results may be 10%-15% lower than serum/plasma values. (CLIA ID [id number]) Interpretation and review of laboratory results Abnormal [place] Test Performed by [facility], [address], [place], [place] [address] [place] CBCon 01-21-2020 Erythrocyte distribution width (RBC) [Ratio] 13.9 % 11.5 - 14.5 % [place] Hematocrit (Bld) [Volume fraction] 42.0 % 35 - 47 % [place] Hemoglobin (Bld) [Mass/Vol] 13.6 g/dL 11.7 - 16 g/dL [place] MCH (RBC) [Entitic mass] 28.5 pg 26 - 34 pg [place] MCHC (RBC) [Mass/Vol] 32.4 % 32 - 36 % [place], [place] MCV (RBC) [Entitic vol] 87.9 fL 79 - 98 fL [place], [place] Platelet mean volume (Bld) [Entitic vol] 7.6 fL 7.4 - 10.4 fL [place] Platelets (Bld) [#/Vol] 382 10*3/uL 140 - 440 10*3/uL [place] RBC (Bld) [#/Vol] 4.78 10*6/uL 3.8 - 5.2 10*6/uL [place] WBC (Bld) [#/Vol] 10.5 10*3/uL 3.6 - 10.7 10*3/uL [place] Test Performed by [facility], [address], [place] [address] [facility], [place] CR Hip w/ Pelvis 1 View Righ ton 01-21-2020 CR Hip w/ Pelvis 1 View Right Patient Name: BEVERLY AGEE Diagnostic Radiology Exam Date/Time 01/21/2020 17:34:39 EDT Exam CR Hip w/ Pelvis 1 View Right n Ordering Physician DEYVI BUSH, DOM Sellers Accession Number [id number] CPT4 Codes 74471 () Reason For Exam s/p RIC Report RIGHT HIP: CLINICAL INDICATION: Right hip pain. TECHNIQUE: AP Pelvis and frog leg lateral views of the right hip were obtained. COMPARISON: 11/30/2019. FINDINGS: There is interval replacement of right hip dynamic screw and medullary angella for right hip arthroplasty. Right hip arthroplasty with iliac screw fixation and cerclage wire around the femoral stem are intact and aligned in position. No loosening is seen. There is medial displacement of the lesser trochanter, unchanged from prior exam. Dystrophic calcification is seen about the proximal femur. There is no evidence for fracture or dislocation. Normal bone mineral density is evident. There is soft tissue air within the right lateral hip consistent with postoperative changes.. Surgical drain is seen within the right lateral hip soft tissues. Right superficial femoral atherosclerotic changes are identified. IMPRESSION: Status post right hip arthroplasty. No loosening. Drainage tube placement. Report Dictated on Final Dictating Physician: MOE FARIAS DO, I Signed Date and Time: 01/21/2020 6:59 pm Signed by: MOE FARIAS DO, I Transcribed Date and Time: 01/21/2020 7:00 Normal [facility] Glucose,Bedsideon 01-21-2020 Glucose [Mass/Vol] 318 mg/dL High 70-100 [facility] Comment on above: Result Comment: Test performed by glucose meter. Results may be 10%-15% lower than serum/plasma values. (CLIA ID [id number]) Performed By: #### B GLU #### [facility] [address] [place] [address] Glucose [Mass/Vol] 216 mg/dL High 70-100 [facility] Comment on above: Result Comment: Test performed by glucose meter. Results may be 10%-15% lower than serum/plasma values. (CLIA ID [id number]) Performed By: #### B GLU #### [facility] [address] [place] [address] Glucose [Mass/Vol] 129 mg/dL High 70-100 [facility] Comment on above: Result Comment: Test performed by glucose meter. Results may be 10%-15% lower than serum/plasma values. (CLIA ID [id number]) Performed By: #### B GLU #### [facility] [address] [place] [address] Hemogramon 01-21-2020 Erythrocyte distribution width (RBC) [Ratio] 13.9 % Normal 11.5-14.5 [facility] Comment on above: Performed By: #### H EMOG #### [facility] [address] [place] [address] Hematocrit (Bld) [Volume fraction] 42.0 % Normal 35.0-47.0 [facility] Comment on above: Performed By: #### H EMOG #### [facility] [address] [place] [address] Hemoglobin (Bld) [Mass/Vol] 13.6 g/dL Normal 11.7-16.0 [facility] Comment on above: Performed By: #### H EMOG #### [facility] [address] [place] [address] MCH (RBC) [Entitic mass] 28.5 pg Normal 26.0-34.0 [facility] Comment on above: Performed By: #### H EMOG #### [facility] [address] [place] [address] MCHC (RBC) [Mass/Vol] 32.4 % Normal 32.0-36.0 [facility] Comment on above: Performed By: #### H EMOG #### [facility] [address] [place] [address] MCV (RBC) [Entitic vol] 87.9 fL Normal 79.0-98.0 [facility] Comment on above: Performed By: #### H EMOG #### [facility] [address] [place] [address] Platelet mean volume (Bld) [Entitic vol] 7.6 fL Normal 7.4-10.4 [facility] Comment on above: Performed By: #### H EMOG #### [facility] [address] [place] [address] Platelets (Bld) [#/Vol] 382 10*3/uL Normal 140-440 [facility] Comment on above: Performed By: #### H EMOG #### [facility] [address] [place] [address] RBC (Bld) [#/Vol] 4.78 10*6/uL Normal 3.80-5.20 [facility] Comment on above: Performed By: #### H EMOG #### [facility] [address] [place] [address] WBC (Bld) [#/Vol] 10.5 10*3/uL Normal 3.6-10.7 [facility] Comment on above: Performed By: #### H EMOG #### [facility] [address] [place] [address] Op Noteon 01-21-2020 Op Note [facility] [address] [place] [address] Dept: [phone] Loc: [phone] Operative Report Patient Name: Beverly Agee Date of : 1945 Date of Surgery: 01/21/2020 Pre-operative diagnosis: Right failed hip fracture surgery Post-operative diagnosis: Same Procedure(s): Conversion of previous surgery to right total hip arthroplasty Surgeon: Melo Keane M.D. Seat Cover Maker(s): Taran BECKFORD The first-management assistant was critical to all steps of the operation, including retraction and leg stabilization during exposure and bone preparation, as well as the deep and superficial wound closure. I understand that section 1842(b)(7)(D) of the Social Security Act generally prohibits Medicare physician fee schedule payment for the services of assistants at surgery in teaching hospitals when qualified residents are available to furnish such services. I certify that the services for which payment is claimed were medically necessary and that no qualified resident was available to perform the services. I further understand that these services are subject to post-payment review by the Medicare carrier. Heather boyd, rakesh pgy1 Anesthesia: Spinal EBL: 400 IVF: Crystalloid Medications: One gram of Vancomycin was given., 1 gram Tranexamic acid Complications: None Intraop findings: severe degenerative joint disease Implants: biomet balta [id number] stem with A 50 body, g7 50mm multihole cup, 40mm dual mobility liner, 40mm poly ball with a biolox delta ceramic 28mm -6 ball Clinical History/Indication for Surgery This is a 74 y.o.-year-old patient with a history of a right intertrochanteric hip fracture. She underwent nailing without complication. Her x-rays in 2 weeks with an appropriate position however she had 2 falls and increasing pain and presentation my office was found have cut out of the nail into the acetabulum. After review of the appropriate imaging studies, a detailed physical examination and history, it was recommended that the patient undergo right total hip arthroplasty as the patient had failed conservative management. The risks and benefits of hip arthroplasty have been discussed with the patient which include, but are not limited to, infections (including severe sequelae), potential component failure, fracture, DVT, pulmonary embolus, nerve palsy, dislocation, leg length inequality, persistent pain, wound healing complications, transfusions and . Operative Procedure: The patient was identified in the pre-operative holding area and the operative site was marked by the patient and myself. Prophylactic antibiotics were administered intravenously within 1 hour prior to skin incision. The patient was positioned right side up on the operating table. The pelvis was secured to the operating table between hip positioners. A time out was performed and the right lower extremity was prepped and draped in the usual sterile fashion. A posterior approach was utilized to expose the hip joint. The skin was sharply incised down to and through the iliotibial band and gluteus liam fascia. Deep Charnley retractors were placed and the trochanteric bursa was incised. A cobra retractor was placed over the femoral neck between the gluteus medius and minimus. A capsulotomy was performed along the proximal edge and parallel to the piriformis tendon extending from the posterior rim of the acetabulum to its insertion on the greater trochanter. The capsule, piriformis tendon, short external rotators and quadratus femoris were taken down as a single video player mechanic the posterior aspect of the proximal femur exposing the lesser trochanter. At this point prophylactic cable was then placed below the level of the fracture. The lag and compression screw was removed. The femoral head was then dislocated and found to have no evidence of healing. Any soft tissue overlying the saddle of the femoral neck adjacent to the greater trochanter was removed. Next the proximal aspect of the nail was identified and distal locking screw was removed Nail was easily removed from the top. The wound was then irrigated a dilute Betadine solution as well as 3 L normal saline. The acetabulum was then exposed. The inferior capsule was incised. A partial capsulotomy was performed along the superior and anterior aspect of the acetabulum to facilitate retraction of the femur anterior to the socket. The pubis and the ischium were palpated and deep retractors were placed. The residual labrum was sharply excised. There was a hole in the anterior superior acetabulum however I didn't feel there is enough remaining bone to purchase a cup in the anterior superior posterior inferior aspects of the acetabulum. Reaming of the acetabulum was guided by the [employer] anteversion of the acetabulum which was defined by the plane between the pubis and the ischium as well as the transverse acetabular ligament. The reamers were kept reltively parallel to this plane and the edge of the reamer was advanced just medial to the transverse acetabular ligament. Inclination of the reamers was held between 40-45 degrees. The acetabulum was progressively reamed until the anterior and posterior de la torre were engaged with a 49 mm reamer. A multi-hole 50 mm porous coated cup was impacted with satisfactory anteversion and inclination using anatomic landmarks and external reference points. Primary stability of the cup was achieved. Multiple screws were then placed in the posterior superior quadrant. A neutral 40mm inner diameter dual mobility liner was inserted and locked into the socket. The femur was then exposed. A canal finder was used to find the center point of the canal. The femur was then reamed to a size 15. Any bony prominences along the anterior aspect of the greater trochanter relative to the anterior aspect of the femoral neck were also taken down to minimize the risk of bony impingement on the pelvis. Fluoroscopic images were obtained and showed excellent cortical fit with no evidence of perforation. The hip was reduced and taken through a range of motion to impingment. Combined anteversion, offset and leg lengths were also assessed. Attention was focused on restoring leg lengths and offset as closely as possible according to the pre-operative plan and to maximize the range of motion possible before encountering prosthetic or bony impingment. The femoral trial was removed, the canal irrigated, and a size 15 150 stem inserted. Axial and rotational stability of the stem was achieved. A size a 50 mm body was impacted in attached with the screw. A 40/28 mm -6 femoral head was impacted on a clean, dry trunion and the hip reduced. The wound was thoroughly irrigated with 3 liters of an antibiotic solution and the posterior capsulotomy closed with a #3 ethibond. The sciatic nerve was palpated and it did not feel to be under undue tension. The iliotibial band and the gluteus liam fascia were closed with a #1 vicryl. A subcutaneous drain was placed. The skin was then closed with 2-0 vicryl and a running 4-0 monocryl suture. The final instrument count was correct and a sterile bandage applied. The patient was taken to recovery in a satisfactory condition. Post-Operative Instructions: 50% weightbearing Strict anterior posterior hip precautions dvt proph: Okay to resume home anticoagulation Continue antibiotics for cultures are pending followup 2-4wks Signed by: Melo Keane MD Date Time: 01/21/2020 4:33 PM Normal [facility] POCT Glucoseon 01-21-2020 Glucose [Mass/Vol] 318 mg/dL High 70 - 100 mg/dL [facility] Comment on above: Test performed by [employer] ucose meter. Results may be 10%-15% lower than serum/plasma values. (CLIA ID [id number]) Interpretation and review of laboratory results Abnormal [employer] Test Performed by [facility], [address], [place], [place] [address] [employer] Glucose [Mass/Vol] 216 mg/dL High 70 - 100 mg/dL [employer] Comment on above: Test performed by [employer] ucose meter. Results may be 10%-15% lower than serum/plasma values. (CLIA ID [id number]) Interpretation and review of laboratory results Abnormal [employer] Test Performed by [facility], [address], [place], [place] [id number] [place] [address] Glucose [Mass/Vol] 129 mg/dL High 70 - 100 mg/dL [facility] [place] Comment on above: Test performed by gl ucose meter. Results may be 10%-15% lower than serum/plasma values. (CLIA ID [id number]) Interpretation and review of laboratory results Abnormal [facility] [employer] [place] Test Performed by [facility], [address] [place] [address] [facility] [employer] YOLANDA TS GELon 01-21-2020 TS GEL ABO Group: A Rh, Gel: POS Antibody Screen Gel: NEG Normal [facility] [employer] [facility] Comment on above: Performed By: #### T SGL #### [facility] [address] [place], [place] [id number] [place] [address] #### LRC #### [address] [address] TYPE AND SCREENon 01-21-2020 Sodium [Moles/Vol] Negative [facility] [employer] Sodium [Moles/Vol] Positive [facility] Sodium [Moles/Vol] A [facility] Test Performed by [facility], [address] [place], [place] [id number] [place], [place] [address] [place] XR HIP 1 VW W PELVIS RIGHTon 01-21-2020 Woody, [facility] Incoming Radiology Results From [facility] - 01/21/2020 7:00 PM EDT Patient Name: BEVERLY AGEE ---Diagnostic Radiology--- Exam Date/Time 01/21/2020 17:34:39 EDT Exam CR Hip w/ Pelvis 1 View Right n Ordering Physician DEYVI BUSH NICHOLAS A Accession Number [id number] CPT4 Codes 34967 () Reason For Exam s/p RIC Report RIGHT HIP: CLINICAL INDICATION: Right hip pain. TECHNIQUE: AP Pelvis and frog leg lateral views of the right hip were obtained. COMPARISON: 11/30/2019. FINDINGS: There is interval replacement of right hip dynamic screw and medullary angella for right hip arthroplasty. Right hip arthroplasty with iliac screw fixation and cerclage wire around the femoral stem are intact and aligned in position. No loosening is seen. There is medial displacement of the lesser trochanter, unchanged from prior exam. Dystrophic calcification is seen about the proximal femur. There is no evidence for fracture or dislocation. Normal bone mineral density is evident. There is soft tissue air within the right lateral hip consistent with postoperative changes.. Surgical drain is seen within the right lateral hip soft tissues. Right superficial femoral atherosclerotic changes are identified. IMPRESSION: Status post right hip arthroplasty. No loosening. Drainage tube placement. Report Dictated on --- Final --- Dictating Physician: MOE FARIAS DO, I Signed Date and Time: 01/21/2020 6:59 pm Signed by: MOE FARIAS DO, I Transcribed Date and Time: 01/21/2020 7:00 [place], [place] Patient Name: BEVERLY SEE ---Diagnostic Radiology--- Exam Date/Time 01/21/2020 17:34:39 EDT Exam CR Hip w/ Pelvis 1 View Right n Ordering Physician DEYVI BUSH, DOM Sellers Accession Number [id number] CPT4 Codes 08263 () Reason For Exam s/p RIC Report RIGHT HIP: CLINICAL INDICATION: Right hip pain. TECHNIQUE: AP Pelvis and frog leg lateral views of the right hip were obtained. COMPARISON: 11/30/2019. FINDINGS: There is interval replacement of right hip dynamic screw and medullary angella for right hip arthroplasty. Right hip arthroplasty with iliac screw fixation and cerclage wire around the femoral stem are intact and aligned in position. No loosening is seen. There is medial displacement of the lesser trochanter, unchanged from prior exam. Dystrophic calcification is seen about the proximal femur. There is no evidence for fracture or dislocation. Normal bone mineral density is evident. There is soft tissue air within the right lateral hip consistent with postoperative changes.. Surgical drain is seen within the right lateral hip soft tissues. Right superficial femoral atherosclerotic changes are identified. IMPRESSION: Status post right hip arthroplasty. No loosening. Drainage tube placement. Report Dictated on --- Final --- Dictating Physician: MOE FARIAS DO, I Signed Date and Time: 01/21/2020 6:59 pm Signed by: MOE FARIAS DO, I Transcribed Date and Time: 01/21/2020 7:00 [place], [place] Basic Metabolic Panel w/ Ref james to MGon 12-03-2019 Anion gap [Moles/Vol] 4 mmol/L [place], [place] Comment on above: Test Performed by [facility], [facility] [place] [address] Calcium [Mass/Vol] 9.0 mg/dL 8.4 - 10. 4 mg/dL [place], [place] Comment on above: Test Performed by [employer] [facility], [facility] [place] [address] Chloride [Moles/Vol] 102 mmol/L 98 - 10 7 mmol/L [place] Comment on above: Test Performed by [facility], [facility] [place] [address] CO2 [Moles/Vol] 30 mmol/L 22 - 30 mmol/L [place] Comment on above: Test Performed by [facility], [facility] [place] [address] Creatinine [Mass/Vol] 0.53 mg/dL 0.52 - 1.25 mg/dL [place] Comment on above: Test Performed by [facility], [facility] [place] [address] EGFR IF NonAfrican Ecuadorean >60.0 >60 mL/min [place], [place] Comment on above: Test Performed by [facility] [employer] [facility], [facility] [place] [address] Source- MDRD equation with creatinine calibration to IDMS(NKDEP) eGFR not recommended for drug dose adjustment GFR/1.73 sq M predicted among blacks MDRD (S/P/Bld) [Vol rate/Area] mL/min/{1.73_m2} >60 mL/min [place], [place] Comment on above: Test Performed by [employer] [facility], [facility] [place] [address] Glucose [Mass/Vol] 219 mg/dL High 70 - 100 mg/dL [place] Comment on above: Test Performed by [employer] [facility], [facility] [place] [address] Interpretation and review of laboratory results Abnormal [place] Potassium [Moles/Vol] 3.8 mmol/L 3.5 - 5.1 mmol/L [place] Comment on above: Test Performed by [facility], [address] [place] [address] Sodium [Moles/Vol] 135 mmol/L 135 - 145 mmol/L [place] Urea nitrogen [Mass/Vol] 12 mg/dL 7 - 20 mg/dL [place] Comment on above: Test Performed by [facility], [address] [place] [address] Test Performed by [facility], [address] [place] [address] [place], [place] CBCon 12-03-2019 Erythrocyte distribution width (RBC) [Ratio] 13.5 % 11.5 - 14.5 % [place] Comment on above: Test Performed by [facility], [address] [place] [address] Hematocrit (Bld) [Volume fraction] 30.2 % Low 35 - 47 % [place] Comment on above: Test Performed by [facility], [address] [place] [address] Hemoglobin (Bld) [Mass/Vol] 10.1 g/dL Low 11.7 - 16 g/dL [place] Comment on above: Test Performed by [facility], [address] [place] [address] Interpretation and review of laboratory results Abnormal [place] MCH (RBC) [Entitic mass] 29.9 pg 26 - 34 pg [place] Comment on above: Test Performed by [facility], [address] [place] [address] MCHC (RBC) [Mass/Vol] 33.5 % 32 - 36 % [place] Comment on above: Test Performed by [facility], [address] [place] [address] MCV (RBC) [Entitic vol] 89.3 fL 79 - 98 fL [place], [place] Comment on above: Test Performed by [facility] [employer] [facility], [facility] [place] [address] Platelet mean volume (Bld) [Entitic vol] 7.9 fL 7.4 - 10.4 fL [place] Comment on above: Test Performed by [facility], [address] [place] [address] Platelets (Bld) [#/Vol] 250 10*3/uL 140 - 440 10*3/uL [place] Comment on above: Test Performed by [facility], [address] [place] [address] RBC (Bld) [#/Vol] 3.38 10*6/uL Low 3.8 - 5.2 10*6/uL [place] Comment on above: Test Performed by [facility], [address] [place] [address] WBC (Bld) [#/Vol] 11.5 10*3/uL High 3.6 - 10.7 10*3/uL [place] Test Performed by [facility], [address] [place] [address] [place] POCT Glucoseon 12-03-2019 Glucose [Mass/Vol] 230 mg/dL High 70 - 100 mg/dL [place] Comment on above: Test performed by gl ucose meter. Results may be 10%-15% lower than serum/plasma values. (CLIA ID [id number]) Interpretation and review of laboratory results Abnormal [place] Test Performed by [facility], [address] [place] [address] [place] Glucose [Mass/Vol] 286 mg/dL High 70 - 100 mg/dL [place] Comment on above: Test performed by gl ucose meter. Results may be 10%-15% lower than serum/plasma values. (CLIA ID [id number]) Interpretation and review of laboratory results Abnormal [place] Test Performed by [facility], [address] [place] [address] [place] Glucose [Mass/Vol] 251 mg/dL High 70 - 100 mg/dL [place] Comment on above: Test performed by gl ucose meter. Results may be 10%-15% lower than serum/plasma values. (CLIA ID [id number]) Interpretation and review of laboratory results Abnormal [place] Test Performed by [facility], [facility] [place] [address] [place] Glucose [Mass/Vol] 283 mg/dL High 70 - 100 mg/dL [place] Comment on above: Test performed by gl ucose meter. Results may be 10%-15% lower than serum/plasma values. (CLIA ID [id number]) Interpretation and review of laboratory results Abnormal [place] Test Performed by [facility], [facility] [place] [address] [place] Basic Metabolic Panel w/ Ref james to MGon 12-02-2019 Anion gap [Moles/Vol] 6 mmol/L [place] Comment on above: Test Performed by [employer] [facility], [facility] [place] [address] Calcium [Mass/Vol] 8.8 mg/dL 8.4 - 10. 4 mg/dL [place] Comment on above: Test Performed by [employer] [facility], [facility] [place] [address] Chloride [Moles/Vol] 105 mmol/L 98 - 10 7 mmol/L [place] Comment on above: Test Performed by [facility] [facility], [facility] [place] [address] CO2 [Moles/Vol] 26 mmol/L 22 - 30 mmol/L [place] Comment on above: Test Performed by [facility] [facility], [address] [place] [address] Creatinine [Mass/Vol] 0.61 mg/dL 0.52 - 1.25 mg/dL [place] Comment on above: Test Performed by [facility] [facility], [facility] [place] [address] EGFR IF NonAfrican Ecuadorean >60.0 >60 mL/min [place] Comment on above: Test Performed by [facility], [facility] [place] [address] Source- MDRD equation with creatinine calibration to IDMS(NKDEP) eGFR not recommended for drug dose adjustment GFR/1.73 sq M predicted among blacks MDRD (S/P/Bld) [Vol rate/Area] mL/min/{1.73_m2} >60 mL/min [place] Comment on above: Test Performed by [facility], [facility] [place] [address] Glucose [Mass/Vol] 105 mg/dL High 70 - 100 mg/dL [place] Comment on above: Test Performed by [facility], [facility] [place] [address] Interpretation and review of laboratory results Abnormal [place] Potassium [Moles/Vol] 3.6 mmol/L 3.5 - 5.1 mmol/L [place] Comment on above: Test Performed by [facility], [facility] [place] [address] Sodium [Moles/Vol] 137 mmol/L 135 - 145 mmol/L [place] Urea nitrogen [Mass/Vol] 13 mg/dL 7 - 20 mg/dL [place], [place] Comment on above: Test Performed by [facility], [facility] [place] [address] Test Performed by [facility], [address] [place] [address] [place], [place] CBCon 12-02-2019 Erythrocyte distribution width (RBC) [Ratio] 13.3 % 11.5 - 14.5 % [place] Comment on above: Test Performed by [facility], [facility] [place] [address] Hematocrit (Bld) [Volume fraction] 27.4 % Low 35 - 47 % [place] Comment on above: Test Performed by [facility], [facility] [place] [address] Hemoglobin (Bld) [Mass/Vol] 9.2 g/dL Low 11.7 - 16 g/dL [place] Comment on above: Test Performed by [facility], [facility] [place] [address] Interpretation and review of laboratory results Abnormal [place] MCH (RBC) [Entitic mass] 30.2 pg 26 - 34 pg [place] Comment on above: Test Performed by [facility], [facility] [place] [address] MCHC (RBC) [Mass/Vol] 33.6 % 32 - 36 % [place], [place] Comment on above: Test Performed by [facility], [address] [place] [place] [address] MCV (RBC) [Entitic vol] 89.9 fL 79 - 98 fL [place] Comment on above: Test Performed by [facility], [address] [place] [place] [address] Platelet mean volume (Bld) [Entitic vol] 8.3 fL 7.4 - 10.4 fL [place] Comment on above: Test Performed by [facility], [address] [place] [address] Platelets (Bld) [#/Vol] 205 10*3/uL 140 - 440 10*3/uL [place] Comment on above: Test Performed by [facility], [address] [place] [address] RBC (Bld) [#/Vol] 3.05 10*6/uL Low 3.8 - 5.2 10*6/uL [place] Comment on above: Test Performed by [facility], [address] [place] [address] WBC (Bld) [#/Vol] 12.0 10*3/uL High 3.6 - 10.7 10*3/uL [place] Test Performed by [facility], [address] [place] [address] [place], [place] POCT Glucoseon 12-02-2019 Glucose [Mass/Vol] 237 mg/dL High 70 - 100 mg/dL [place] Comment on above: Test performed by gl ucose meter. Results may be 10%-15% lower than serum/plasma values. (CLIA ID [id number]) Interpretation and review of laboratory results Abnormal [place] Test Performed by [facility], [address] [place] [address] [place] Glucose [Mass/Vol] 266 mg/dL High 70 - 100 mg/dL [place] Comment on above: Test performed by gl ucose meter. Results may be 10%-15% lower than serum/plasma values. (CLIA ID [id number]) Interpretation and review of laboratory results [facility] [place] Test Performed by [employer] [facility], [address] [facility] [place] [address] [facility], [place] Glucose [Mass/Vol] 241 mg/dL High 70 - 100 mg/dL [place] Comment on above: Test performed by gl ucose meter. Results may be 10%-15% lower than serum/plasma values. (CLIA ID [id number]) Interpretation and review of laboratory results Abnormal [facility] Test Performed by [employer] [facility], [address] [place] [address] [facility], [place] Glucose [Mass/Vol] 158 mg/dL High 70 - 100 mg/dL [place], [place] Comment on above: Test performed by gl ucose meter. Results may be 10%-15% lower than serum/plasma values. (CLIA ID [id number]) Interpretation and review of laboratory results Abnormal [facility] [employer]- [place] Test Performed by [employer] [facility], [address] [place] [address] [place] Glucose [Mass/Vol] 122 mg/dL High 70 - 100 mg/dL [place], [place] Comment on above: Test performed by gl ucose meter. Results may be 10%-15% lower than serum/plasma values. (CLIA ID [id number]) Interpretation and review of laboratory results Abnormal [facility] [employer] Test Performed by [employer] [facility], [facility] [place] [address] [place] Basic Metabolic Panel w/ Ref james to MGon 12-01-2019 Anion gap [Moles/Vol] 6 mmol/L [place], [place] Comment on above: Test Performed by [employer] [facility], [address] [place] [address] Calcium [Mass/Vol] 8.6 mg/dL 8.4 - 10. 4 mg/dL [place] Comment on above: Test Performed by [facility], [address] [place] [address] Chloride [Moles/Vol] 102 mmol/L 98 - 10 7 mmol/L [place] Comment on above: Test Performed by [facility], [facility] [place] [address] CO2 [Moles/Vol] 22 mmol/L 22 - 30 mmol/L [place] Comment on above: Test Performed by [facility], [facility] [place] [address] Creatinine [Mass/Vol] 0.64 mg/dL 0.52 - 1.25 mg/dL [place] Comment on above: Test Performed by [facility], [facility] [place] [address] EGFR IF NonAfrican Ecuadorean >60.0 >60 mL/min [place], [place] Comment on above: Test Performed by [facility], [facility] [place] [address] Source- MDRD equation with creatinine calibration to IDMS(NKDEP) eGFR not recommended for drug dose adjustment GFR/1.73 sq M predicted among blacks MDRD (S/P/Bld) [Vol rate/Area] mL/min/{1.73_m2} >60 mL/min [place] Comment on above: Test Performed by [facility], [facility] [place] [address] Glucose [Mass/Vol] 322 mg/dL High 70 - 100 mg/dL [place], [place] Comment on above: Test Performed by [facility] [employer] [facility], [facility] [place] [address] Interpretation and review of laboratory results Abnormal [place] Potassium [Moles/Vol] 4.2 mmol/L 3.5 - 5.1 mmol/L [place] Comment on above: Test Performed by [facility] [employer] [facility], [facility] [place] [address] Sodium [Moles/Vol] 131 mmol/L Low 135 - 145 mmol/L [place] Urea nitrogen [Mass/Vol] 17 mg/dL 7 - 20 mg/dL [place] Comment on above: Test Performed by [employer] [facility], [facility] [place] [address] Test Performed by [facility], [facility] [place] [address] [place] CBCon 12-01-2019 Erythrocyte distribution width (RBC) [Ratio] 13.3 % 11.5 - 14.5 % [place] Comment on above: Test Performed by [facility], [facility] [place] [address] Hematocrit (Bld) [Volume fraction] 30.1 % Low 35 - 47 % [place] Comment on above: Test Performed by [facility], [facility] [place] [address] Hemoglobin (Bld) [Mass/Vol] 10.0 g/dL Low 11.7 - 16 g/dL [place] Comment on above: Test Performed by [facility], [facility] [place] [address] Interpretation and review of laboratory results Abnormal [place] MCH (RBC) [Entitic mass] 29.8 pg 26 - 34 pg [place] Comment on above: Test Performed by [facility], [facility] [place] [address] MCHC (RBC) [Mass/Vol] 33.4 % 32 - 36 % [place], [place] Comment on above: Test Performed by [facility], [facility] [place] [address] MCV (RBC) [Entitic vol] 89.3 fL 79 - 98 fL [place], [place] Comment on above: Test Performed by [facility], [facility] [place] [address] Platelet mean volume (Bld) [Entitic vol] 8.3 fL 7.4 - 10.4 fL [place] Comment on above: Test Performed by [facility], [address] [place] [address] Platelets (Bld) [#/Vol] 194 10*3/uL 140 - 440 10*3/uL [place] Comment on above: Test Performed by [facility], [address] [place] [address] RBC (Bld) [#/Vol] 3.37 10*6/uL Low 3.8 - 5.2 10*6/uL [place] Comment on above: Test Performed by [facility], [address] [place] [address] WBC (Bld) [#/Vol] 11.0 10*3/uL High 3.6 - 10.7 10*3/uL [facility] Test Performed by [facility], [facility] [place] [address] [facility] Culture, Urineon 12-01-2019 Bacteria identified Cx Nom (U) Escherichia coli Abnormal [facility], [place] Bacteria identified Cx Nom (U) >100,000 CFU/ml [facility] Comment on above: Test Performed by [facility], [facility] [place] [address] Interpretation and review of laboratory results Abnormal [facility] Test Performed by [facility], [facility] [place] [address] [facility], [place] POCT Glucoseon 12-01-2019 Glucose [Mass/Vol] 406 mg/dL High 70 - 100 mg/dL [facility], [place] Comment on above: Test performed by gl ucose meter. Results may be 10%-15% lower than serum/plasma values. (CLIA ID [id number]) Interpretation and review of laboratory results Abnormal [facility] [employer] Test Performed by [facility], [facility] [place] [address] [facility], [place] Glucose [Mass/Vol] 436 mg/dL High 70 - 100 mg/dL [facility], [place] Comment on above: Test performed by gl ucose meter. Results may be 10%-15% lower than serum/plasma values. (CLIA ID [id number]) Interpretation and review of laboratory results Abnormal [facility] [employer] Test Performed by [facility], [facility] [place] [address] [facility], [place] Glucose [Mass/Vol] 247 mg/dL High 70 - 100 mg/dL [facility], [place] Comment on above: Test performed by gl ucose meter. Results may be 10%-15% lower than serum/plasma values. (CLIA ID [id number]) Interpretation and review of laboratory results Abnormal [facility] Test Performed by [facility], [facility] [place] [address] [place] Glucose [Mass/Vol] 334 mg/dL High 70 - 100 mg/dL [place] Comment on above: Test performed by ucose meter. Results may be 10%-15% lower than serum/plasma values. (CLIA ID [id number]) Interpretation and review of laboratory results Abnormal [place] Test Performed by [facility], [facility] [place], [place] [address] [place] [address] Add On Lab Teston 11-30-2019 Sodium [Moles/Vol] Accepted [place], [place] Comment on above: Specimen available & acceptable for analysis. Test Performed by [facility], [facility] [place], [place] [address] [place] [address] Sodium [Moles/Vol] Accepted [place], [place] Comment on above: Specimen available & acceptable for analysis. Test Performed by [facility], [facility] [place], [place] [address] [place] [address] Basic Metabolic Panelon Anion gap [Moles/Vol] 7 mmol/L [place], [place] Comment on above: Test Performed by [facility], [facility] [place] [address] Calcium [Mass/Vol] 8.4 mg/dL 8.4 - 10. 4 mg/dL [place] Comment on above: Test Performed by [facility], [facility] [place] [address] Chloride [Moles/Vol] 104 mmol/L 98 - 10 7 mmol/L [place] Comment on above: Test Performed by [facility], [facility] [place] [address] CO2 [Moles/Vol] 21 mmol/L Low 22 - 30 mmol/L [place], [place] Comment on above: Test Performed by [facility], [facility] [place] [address] Creatinine [Mass/Vol] 0.54 mg/dL 0.52 - 1.25 mg/dL [place], [place] Comment on above: Test Performed by [facility], [facility] [place] [address] EGFR IF NonAfrican Ecuadorean >60.0 >60 mL/min [place] Comment on above: Test Performed by [facility], [address] [place] [address] Source- MDRD equation with creatinine calibration to IDMS(NKDEP) eGFR not recommended for drug dose adjustment GFR/1.73 sq M predicted among blacks MDRD (S/P/Bld) [Vol rate/Area] mL/min/{1.73_m2} >60 mL/min [place] Comment on above: Test Performed by [facility], [address] [place] [address] Glucose [Mass/Vol] 133 mg/dL High 70 - 100 mg/dL [place], [place] Comment on above: Test Performed by [facility], [address] [place] [address] Potassium [Moles/Vol] 3.3 mmol/L Low 3.5 - 5.1 mmol/L [place], [place] Comment on above: Test Performed by [facility], [address] [place] [address] Sodium [Moles/Vol] 132 mmol/L Low 135 - 145 mmol/L [place] Urea nitrogen [Mass/Vol] 15 mg/dL 7 - 20 mg/dL [place], [place] Comment on above: Test Performed by [facility], [address] [place] [address] CBCon 11-30-2019 Erythrocyte distribution width (RBC) [Ratio] 13.6 % 11.5 - 14.5 % [place] Comment on above: Test Performed by [facility], [address] [place] [address] Hematocrit (Bld) [Volume fraction] 33.6 % Low 35 - 47 % [place] Comment on above: Test Performed by [facility], [address] [place] [address] Hemoglobin (Bld) [Mass/Vol] 11.5 g/dL Low 11.7 - 16 g/dL [place], [place] Comment on above: Test Performed by [facility], [address] [place] [address] repeated Interpretation and review of laboratory results Abnormal [place] MCH (RBC) [Entitic mass] 30.2 pg 26 - 34 pg [place], [place] Comment on above: Test Performed by [facility], [address] [place] [address] MCHC (RBC) [Mass/Vol] 34.1 % 32 - 36 % [place], [place] Comment on above: Test Performed by [facility], [facility] [address] [facility] [place] [address] MCV (RBC) [Entitic vol] 88.4 fL 79 - 98 fL [place] Comment on above: Test Performed by [facility], [facility] [address] [facility] [place] [address] Platelet mean volume (Bld) [Entitic vol] 8.1 fL 7.4 - 10.4 fL [place], [place] Comment on above: Test Performed by [facility], [facility] [place] [address] Platelets (Bld) [#/Vol] 192 10*3/uL 140 - 440 10*3/uL [place] Comment on above: Test Performed by [facility], [facility] [place] [address] RBC (Bld) [#/Vol] 3.80 10*6/uL 3.8 - 5.2 10*6/uL [place], [place] Comment on above: Test Performed by [facility], [facility] [place] [address] WBC (Bld) [#/Vol] 11.6 10*3/uL High 3.6 - 10.7 10*3/uL [place] Test Performed by [facility], [facility] [place] [facility] [place] [address] [place], [place] CKon 11-30-2019 Total CK 281 U/L High 30 - 170 U/L [place], [place] EKG 12 Leadon 11-30-2019 [facility] Test Date: 2019-11-29 Pat Name: Beverly Agee Department: 1AH6 Room: [facility] Gender: F Filler In: SAEED : 1945 Requested By: KHADAR CHUA Order Number: [id number] [place] MD: Rick Sawant Measurements Intervals [place] Rate: 77 P: 14 NC: 139 QRS: -35 QRSD: 114 T: QT: 430 QTc: 487 Interpretive Statements Sinus rhythm Borderline IVCD with LAD Nonspecific T abnrm, anterolateral leads Borderline prolonged QT interval Electronically Signed On 11-30-2019 11:17:35 EDT by Rick Sawant [place], [place], [facility] Incoming Cardiology Results From [facility] - 11/30/2019 11:18 AM EDT [facility] Test Date: 2019-11-29 Pat Name: Beverly Agee Department: 1A6 Room: [facility] Gender: F Filler In: YB : 1945 Requested By: KHADAR CUHA Order Number: [id number] Reading MD: Rick Sawant Measurements Intervals [place] Rate: 77 P: 14 NC: 139 QRS: -35 QRSD: 114 T: QT: 430 QTc: 487 Interpretive Statements Sinus rhythm Borderline IVCD with LAD Nonspecific T abnrm, anterolateral leads Borderline prolonged QT interval Electronically Signed On 11-30-2019 11:17:35 EDT by Rick Sawant [place], [place] Hepatic function panelon Albumin [Mass/Vol] 3.1 g/dL Low 3.5 - 5 g/dL [place] ALP [Catalytic activity/Vol] 68 U/L 38 - 126 U/L [place], [place] Comment on above: Test Performed by [facility], [address] [place] [address] ALT [Catalytic activity/Vol] 11 U/L 0 - 34 U/L [place] Comment on above: Test Performed by [facility], [address] [place] [address] The ALT test is performed by an updated assay method. Please note that the reference intervals have been changed and are now sex specific. AST [Catalytic activity/Vol] 27 U/L 15 - 46 U/L [place], [place] Comment on above: Test Performed by [facility], [address] [place] [address] Bilirubin Ql (U) 0.4 mg/dL 0.2 - 1.3 mg/dL [place], [place] Comment on above: Test Performed by [facility], [address] [place] [address] [place] [address] Bilirubin.direct [Mass/Vol] 0.0 mg/dL 0 - 0.3 mg/dL [place], [place] Comment on above: Test Performed by [facility], [address] [place] [address] Interpretation and review of laboratory results Abnormal [place] Protein [Mass/Vol] 5.7 g/dL Low 6.3 - 8.2 g/dL [place], [place] Comment on above: Test Performed by [facility], [address] [place] [address] Test Performed by [facility], [facility] [place] [address] [place] Magnesiumon 11-30-2019 Magnesium [Mass/Vol] 1.5 mg/dL Low 1.6 - 2 .3 mg/dL [place] Otheron 11-30-2019 Interpretation and review of laboratory results Abnormal [place] Test Performed by [facility], [facility] [place] [address] [place], [place] POCT Glucoseon 11-30-2019 Glucose [Mass/Vol] 359 mg/dL High 70 - 100 mg/dL [place], [place] Comment on above: Test performed by gl ucose meter. Results may be 10%-15% lower than serum/plasma values. (CLIA ID [id number]) Interpretation and review of laboratory results Abnormal [place] Test Performed by [facility], [facility] [place] [address] [place], [place] Glucose [Mass/Vol] 345 mg/dL High 70 - 100 mg/dL [place], [place] Comment on above: Test performed by gl ucose meter. Results may be 10%-15% lower than serum/plasma values. (CLIA ID [id number]) Interpretation and review of laboratory results Abnormal [place] Test Performed by [facility], [address] [place] [address] [place] Glucose [Mass/Vol] 286 mg/dL High 70 - 100 mg/dL [place], [place] Comment on above: Test performed by gl ucose meter. Results may be 10%-15% lower than serum/plasma values. (CLIA ID [id number]) Interpretation and review of laboratory results Abnormal [facility] Test Performed by [facility], [address] [place] [place] [address] [facility] Glucose [Mass/Vol] 244 mg/dL High 70 - 100 mg/dL [facility] Comment on above: Test performed by gl ucose meter. Results may be 10%-15% lower than serum/plasma values. (CLIA ID [id number]) Interpretation and review of laboratory results Abnormal [facility] Test Performed by [facility], [address] [place] [place] [address] [facility] Glucose [Mass/Vol] 268 mg/dL High 70 - 100 mg/dL [facility] Comment on above: Test performed by gl ucose meter. Results may be 10%-15% lower than serum/plasma values. (CLIA ID [id number]) Interpretation and review of laboratory results Abnormal [facility] Test Performed by [facility], [address] [place] [address] [facility] Glucose [Mass/Vol] 224 mg/dL High 70 - 100 mg/dL [facility] Comment on above: Test performed by gl ucose meter. Results may be 10%-15% lower than serum/plasma values. (CLIA ID [id number]) Interpretation and review of laboratory results Abnormal [facility] Test Performed by [facility] [facility], [address] [place] [address] [facility] XR FEMUR RIGHT (MIN 2 VIEWS) on 11-30-2019 [facility], [facility] Incoming Radiology Results From [facility] - 11/30/2019 3:33 PM EDT Patient Name: BEVERLY AGEE ---Diagnostic Radiology--- Exam Date/Time 11/30/2019 15:29:03 EDT Exam CR Femur 2+ Views Right n Ordering Physician MD SHARON, RAPHAEL GARCIA Accession Number [id number] CPT4 Codes 22054 () Reason For Exam post op portable Report AP and lateral views of the right femur, 11/30/2019. Reason for examination: Right leg pain. Follow-up fracture. COMPARISON: 11/29/2019. FINDINGS: There has been interval surgical reduction and fixation of a comminuted, intertrochanteric fracture of the right proximal femur noted on the previous study. The lesser trochanter remains avulsed, in relatively stable position. This is the only notably displaced fracture fragment. An intramedullary angella is present, extending from the greater trochanter to the proximal diaphysis. Proximal and distal fixation screws are present. Surgical hardware appears intact. There are surgical skin prakash lateral to the proximal femur. No new fracture is identified. There is no evidence of hip dislocation. A right knee arthroplasty is again noted. IMPRESSION: Interval surgical reduction and fixation of fracture of the right proximal femur. Report Dictated on --- Final --- Dictated: 11/30/2019 3:28 pm Dictating Physician: MD BARCLAY JOE M Signed Date and Time: 11/30/2019 3:32 pm Signed by: MD BARCLAY JOE M Transcribed Date and Time: 11/30/2019 3:28 [place] Patient Name: BEVERLY SEE ---Diagnostic Radiology--- Exam Date/Time 11/30/2019 15:29:03 EDT Exam CR Femur 2+ Views Right n Ordering Physician MD HERRERA JAMES EDWARD Accession Number [id number] CPT4 Codes 30300 () Reason For Exam post op portable Report AP and lateral views of the right femur, 11/30/2019. Reason for examination: Right leg pain. Follow-up fracture. COMPARISON: 11/29/2019. FINDINGS: There has been interval surgical reduction and fixation of a comminuted, intertrochanteric fracture of the right proximal femur noted on the previous study. The lesser trochanter remains avulsed, in relatively stable position. This is the only notably displaced fracture fragment. An intramedullary angella is present, extending from the greater trochanter to the proximal diaphysis. Proximal and distal fixation screws are present. Surgical hardware appears intact. There are surgical skin prakash lateral to the proximal femur. No new fracture is identified. There is no evidence of hip dislocation. A right knee arthroplasty is again noted. IMPRESSION: Interval surgical reduction and fixation of fracture of the right proximal femur. Report Dictated on --- Final --- Dictated: 11/30/2019 3:28 pm Dictating Physician: MD BARCLAY JOE M Signed Date and Time: 11/30/2019 3:32 pm Signed by: MD BARCLAY JOE M Transcribed Date and Time: 11/30/2019 3:28 [place], [place] Add On Lab Teston 11-29-2019 Sodium [Moles/Vol] Accepted [place], [place] Comment on above: Specimen available & acceptable for analysis. Test Performed by [facility], [address] [place] [address] Sodium [Moles/Vol] Accepted [place] Comment on above: Specimen available & acceptable for analysis. Test Performed by [facility] [facility], [address] [place] [address] Sodium [Moles/Vol] Accepted [place], [place] Comment on above: Specimen available & acceptable for analysis. Test Performed by [facility], [address] [place] [address] Brain Natriuretic Peptideon 11-29-2019 Interpretation and review of laboratory results Abnormal [place] Natriuretic peptide B (Bld) [Mass/Vol] 221 pg/mL High 0 - 125 pg/mL [place] Test Performed by [facility], [address] [place] [address] CKon 11-29-2019 Total CK 283 U/L High 30 - 170 U/L [place] CT Cervical Spine WO Contras ton 11-29-2019 [facility] Incoming Radiology Results From [facility] - 11/29/2019 4:21 AM EDT Patient Name: BEVERLY AGEE ---CT--- Exam Date/Time 11/29/2019 04:09:[address] Spine Cervical w/o Contrast Ordering Physician DONY JUSTIN DANIEL M Accession Number [id number] CPT4 Codes 35511 () Reason For Exam fall, on floor for 24 hours Report Clinical indication: Fall. Pain. Comparison: None Radiation dose: DLP 556 mGycm Multidetector imaging from skull base through thoracic inlet was performed with axial, coronal and sagittal reconstructions evaluated. No fracture is noted. There are severe degenerative changes diffusely with severe disc height loss and endplate hypertrophy. Hypertrophic facet arthropathy is also present diffusely. There is no focal level of significant spondylolisthesis. Canal stenosis is most severe at C6-C7. Multilevel foraminal stenosis is noted. IMPRESSION: No acute osseous abnormality is noted in the cervical spine. Severe degenerative changes with canal stenosis most severe at C6-C7 and multilevel foraminal stenoses Report Dictated on --- Final --- Dictated: 11/29/2019 4:17 am Dictating Physician: MD MARIA DIANE Signed Date and Time: 11/29/2019 4:20 am Signed by: MD MARIA DIANE Transcribed Date and Time: 11/29/2019 4:17 [place] Patient Name: BEVERLY SEE ---CT--- Exam Date/Time 11/29/2019 04:09:[address] Spine Cervical w/o Contrast Ordering Physician DONY JUSTIN DANIEL M Accession Number [id number] CPT4 Codes 43758 () Reason For Exam fall, on floor for 24 hours Report Clinical indication: Fall. Pain. Comparison: None Radiation dose: DLP 556 mGycm Multidetector imaging from skull base through thoracic inlet was performed with axial, coronal and sagittal reconstructions evaluated. No fracture is noted. There are severe degenerative changes diffusely with severe disc height loss and endplate hypertrophy. Hypertrophic facet arthropathy is also present diffusely. There is no focal level of significant spondylolisthesis. Canal stenosis is most severe at C6-C7. Multilevel foraminal stenosis is noted. IMPRESSION: No acute osseous abnormality is noted in the cervical spine. Severe degenerative changes with canal stenosis most severe at C6-C7 and multilevel foraminal stenoses Report Dictated on --- Final --- Dictated: 11/29/2019 4:17 am Dictating Physician: MD MARIA DIANE Signed Date and Time: 11/29/2019 4:20 am Signed by: MD MARIA DIANE Transcribed Date and Time: 11/29/2019 4:17 [facility], [place] CT Head WO Contraston 2019 Patient Name: BEVERLY SEE ---CT--- Exam Date/Time 11/29/2019 04:08:[address] Head or Brain w/o Contrast Ordering Physician DONY JUSTIN DANIEL M Accession Number [id number] CPT4 Codes 00073 () Reason For Exam fall, on floor for 24 hours Report Clinical indication: Fall. On floor for 24 hours. Pain. Comparison: 08/25/2016 Radiation dose: DLP 1324 mGycm Imaging between skull base and vertex was performed without intravenous contrast. No intracranial hemorrhage, edema, mass or mass effect is identified. No extra axial hemorrhagic collections are identified. 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 No fracture the calvarium is identified. IMPRESSION: No acute intracranial abnormality is identified specifically with no acute infarction identified. Report Dictated on --- Final --- Dictated: 11/29/2019 4:16 am Dictating Physician: MD MARIA DIANE Signed Date and Time: 11/29/2019 4:17 am Signed by: MD MARIA DIANE Transcribed Date and Time: 11/29/2019 4:16 [facility], [place] [facility] Incoming Radiology Results From [facility] - 11/29/2019 4:18 AM EDT Patient Name: BEVERLY AGEE ---CT--- Exam Date/Time 11/29/2019 04:08:[address] Head or Brain w/o Contrast Ordering Physician DONY JUSTIN DANIEL M Accession Number [id number] CPT4 Codes 05554 () Reason For Exam fall, on floor for 24 hours Report Clinical indication: Fall. On floor for 24 hours. Pain. Comparison: 08/25/2016 Radiation dose: DLP 1324 mGycm Imaging between skull base and vertex was performed without intravenous contrast. No intracranial hemorrhage, edema, mass or mass effect is identified. No extra axial hemorrhagic collections are identified. 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 No fracture the calvarium is identified. IMPRESSION: No acute intracranial abnormality is identified specifically with no acute infarction identified. Report Dictated on --- Final --- Dictated: 11/29/2019 4:16 am Dictating Physician: MD MARIA DIANE Signed Date and Time: 11/29/2019 4:17 am Signed by: MD MARIA DIANE Transcribed Date and Time: 11/29/2019 4:16 [place], [place] Comprehensive Metabolic Pane satnam 11-29-2019 Albumin [Mass/Vol] 4.2 g/dL 3.5 - 5 g/dL [place], [place] Comment on above: Test Performed by [facility], [address] [place] [address] ALP [Catalytic activity/Vol] 94 U/L 38 - 126 U/L [place], [place] Comment on above: Test Performed by [facility], [address] [place] [address]26 ALT [Catalytic activity/Vol] 15 U/L 0 - 34 U/L [place] Comment on above: Test Performed by [facility], [address] [place] [address] The ALT test is performed by an updated assay method. Please note that the reference intervals have been changed and are now sex specific. Anion gap [Moles/Vol] 11 mmol/L [place], [place] Comment on above: Test Performed by [facility], [address] [place] [address] AST [Catalytic activity/Vol] 22 U/L 15 - 46 U/L [place] Comment on above: Test Performed by [address] [address] Bilirubin Ql (U) 0.6 mg/dL 0.2 - 1.3 mg/dL [place] Comment on above: Test Performed by [facility], [address] [place] [address] Calcium [Mass/Vol] 9.6 mg/dL 8.4 - 10. 4 mg/dL [place], [place] Comment on above: Test Performed by [facility], [facility] [place] [address] Chloride [Moles/Vol] 99 mmol/L 98 - 10 7 mmol/L [place] Comment on above: Test Performed by [facility], [facility] [place] [address] CO2 [Moles/Vol] 24 mmol/L 22 - 30 mmol/L [place] Comment on above: Test Performed by [facility], [facility] [place] [address] Creatinine [Mass/Vol] 0.69 mg/dL 0.52 - 1.25 mg/dL [place] Comment on above: Test Performed by [facility], [facility] [place] [address] EGFR IF NonAfrican Ecuadorean >60.0 >60 mL/min [place] Comment on above: Test Performed by [facility], [facility] [place] [address] Source- MDRD equation with creatinine calibration to IDVA(NKDEP) eGFR not recommended for drug dose adjustment GFR/1.73 sq M predicted among blacks MDRD (S/P/Bld) [Vol rate/Area] mL/min/{1.73_m2} >60 mL/min [place] Comment on above: Test Performed by [facility], [facility] [place] [address] Glucose [Mass/Vol] 452 mg/dL Critically high 70 - 1 00 mg/dL [place], [place] Comment on above: Test Performed by [facility], [facility] [place] [address] Potassium [Moles/Vol] 4.0 mmol/L 3.5 - 5.1 mmol/L [place] Comment on above: Test Performed by [facility], [facility] [place] [address] Protein [Mass/Vol] 7.0 g/dL 6.3 - 8.2 g/dL [place] Comment on above: Test Performed by [facility], [facility] [place] [address] Sodium [Moles/Vol] 134 mmol/L Low 135 - 145 mmol/L [place] Urea nitrogen [Mass/Vol] 21 mg/dL High 7 - 20 mg/dL [place] Comment on above: Test Performed by [facility], [address] [place] [address] Hemoglobin A1Con 11-29-2019 eAG 303 mg/dL [place], [place] Comment on above: Test Performed by [facility], [address] [place] [address] HbA1c (Bld) [Mass fraction] 12.2 % High 4 - 5.7 % [place] Comment on above: --HgbA1C levels may not be accurate in patients who have renal disease, received recent blood transfusions, are anemic, or who have dyshemoglobinemia. Interpretation and review of laboratory results Abnormal [place] Test Performed by [id number] [place] [address] Hemogram (CBC) w/Auto Diffon 11-29-2019 Absolute Baso # 0.1 10*3/uL 0 - 0.2 10*3/uL [place] Comment on above: Test Performed by [facility], [address] [place] [address] Absolute Neut # 10.5 10*3/uL High 1.8 - 7 10*3/uL [place] Comment on above: Test Performed by [facility], [address] [place] [address] Basophils/100 WBC (Bld) 0.7 % 0 - 2 % [place], [place] Comment on above: Test Performed by [facility], [address] [place] [address] Eosinophils (Bld) [#/Vol] 0.0 10*3/uL 0 - 0.5 10*3/uL [place] Comment on above: Test Performed by [facility], [address] [place] [address] Eosinophils/100 WBC (Bld) 0.1 % Low 1 - 6 % [place] Comment on above: Test Performed by [facility], [address] [place] [address] Erythrocyte distribution width (RBC) [Ratio] 13.7 % 11.5 - 14.5 % [place] Comment on above: Test Performed by [facility], [address] [place] [address] Granulocytes/100 WBC (Bld) 76.2 % 40 - 80 % [place] Comment on above: Test Performed by [facility], [address] [place] [address] Hematocrit (Bld) [Volume fraction] 42.0 % 35 - 47 % [place] Comment on above: Test Performed by [facility], [address] [place] [address] Hemoglobin (Bld) [Mass/Vol] 14.2 g/dL 11.7 - 16 g/dL [place] Comment on above: Test Performed by [facility], [address] [place] [address] Interpretation and review of laboratory results Abnormal [place] Lymphocytes (Bld) [#/Vol] 2.3 10*3/uL 1 - 4.3 10*3/uL [place] Comment on above: Test Performed by [facility], [address] [place] [address] Lymphocytes/100 WBC (Bld) 16.5 % Low 20 - 40 % [place] Comment on above: Test Performed by [facility], [address] [place] [address] MCH (RBC) [Entitic mass] 29.9 pg 26 - 34 pg [place], [place] Comment on above: Test Performed by [facility], [address] [place] [address] MCHC (RBC) [Mass/Vol] 33.7 % 32 - 36 % [place], [place] Comment on above: Test Performed by [facility], [address] [place] [address] MCV (RBC) [Entitic vol] 88.8 fL 79 - 98 fL [place] Comment on above: Test Performed by [facility], [address] [place] [address] Monocytes (Bld) [#/Vol] 0.9 10*3/uL High 0 - 0.8 10*3/uL [place] Comment on above: Test Performed by [facility], [address] [place] [address] Monocytes/100 WBC (Bld) 6.5 % 2 - 10 % [place] Comment on above: Test Performed by [facility], [address] [place] [address] Platelet mean volume (Bld) [Entitic vol] 8.2 fL 7.4 - 10.4 fL [place] Comment on above: Test Performed by [facility], [address] [place] [address] Platelets (Bld) [#/Vol] 243 10*3/uL 140 - 440 10*3/uL [place] Comment on above: Test Performed by [facility], [address] [place] [address] RBC (Bld) [#/Vol] 4.72 10*6/uL 3.8 - 5.2 10*6/uL [place] Comment on above: Test Performed by [facility], [address] [place] [address] WBC (Bld) [#/Vol] 13.8 10*3/uL High 3.6 - 10.7 10*3/uL [place] Test Performed by [facility], [address] [place] [address] [place] Magnesiumon 11-29-2019 Magnesium [Mass/Vol] 1.5 mg/dL Low 1.6 - 2 .3 mg/dL [place] Metabolic Panelon 11-29-2019 Sodium [Moles/Vol] Negative [place] Otheron 11-29-2019 Test Performed by [facility], [address] [place] [address] [place] Interpretation and review of laboratory results Abnormal [place] Test Performed by [facility], [address] [place] [address] [place] POCT Glucoseon 11-29-2019 Glucose [Mass/Vol] 306 mg/dL High 70 - 100 mg/dL [facility] Comment on above: Test performed by gl ucose meter. Results may be 10%-15% lower than serum/plasma values. (CLIA ID [id number]) Interpretation and review of laboratory results Abnormal [facility] [place] [place] Test Performed by [facility], [address] [place] [address] [facility] Glucose [Mass/Vol] 220 mg/dL High 70 - 100 mg/dL [facility] Comment on above: Test performed by gl ucose meter. Results may be 10%-15% lower than serum/plasma values. (CLIA ID [id number]) Interpretation and review of laboratory results Abnormal [facility] [employer]- [place] Test Performed by [facility], [facility] [place] [address] [facility] Glucose [Mass/Vol] 343 mg/dL High 70 - 100 mg/dL [place], [place] Comment on above: Test performed by gl ucose meter. Results may be 10%-15% lower than serum/plasma values. (CLIA ID [id number]) Interpretation and review of laboratory results Abnormal [facility] [employer]- [place] Test Performed by [facility], [facility] [place] [address] [facility] Glucose [Mass/Vol] 322 mg/dL High 70 - 100 mg/dL [place], [place] Comment on above: Test performed by gl ucose meter. Results may be 10%-15% lower than serum/plasma values. (CLIA ID [id number]) Interpretation and review of laboratory results Abnormal [facility] [employer]- [place] Test Performed by [facility], [address] [place] [address] [place] Protime/INR & PTTon 11-29-19 20 aPTT Coag (Bld) [Time] 23.9 s 20 - 30.5 s [place], [place] Comment on above: Test Performed by [facility], [address] [place] [address] NOTE: The therapeutic time for Heparin anticoagulation, based on Xa activity inhibition, is an APTT of 46-80 seconds. INR Coag (PPP) [Relative time] 1.0 {INR} [place] Comment on above: Test Performed by [facility], [facility] [place] [address] Recommended Anticoagulant Therapy: SEE BELOW ----- INR of 2.0 - 3.0 : - Prophylaxis of Venous Thrombosis (high-risk surgery) - Treatment of Venous Thrombosis - Treatment of Pulmonary Embolism (Includes tissue heart valves, Acute Myocardial Infarction to prevent systemic embolism, Valvular Heart Disease, and Atrial Fibrillation) ----- INR of 2.5 - 3.5 : - Mechanical Prosthetic Valves (high risk) - If oral anticoagulant therapy is used to prevent Myocardial Infarction PT Coag (PPP) [Time] 11 s 9 - 12 s [place], [place] Comment on above: . Test Performed by [facility], [facility] [place] [place] [address] [place] [address] TYPE AND SCREENon 11-29-2019 Sodium [Moles/Vol] Negative [place] Comment on above: Test Performed by [facility], [facility] [place] [address] Sodium [Moles/Vol] Positive [place], [place] Comment on above: Test Performed by [facility], [address] [place] [address] Sodium [Moles/Vol] A [place] Test Performed by [facility], [facility] [place], [place] [address] [place] [address] Troponin x1on 11-29-2019 Troponin I.cardiac [Mass/Vol] ng/mL 0 - 0.034 ng/mL [place] Comment on above: . Urinalysison 11-29-2019 Appearance (U) Turbid Clear NA [place] Comment on above: Test Performed by [facility], [facility] [place] [address] Bacteria, UA Moderate Negative /[HPF] [place] Comment on above: Test Performed by [facility], [facility] [place] [address] Bilirubin Urine Negative Negative mg/dL [place] Comment on above: Test Performed by [facility], [facility] [place] [address] Color (U) Light-Yellow Lt. Yellow NA [place], [place] Comment on above: Test Performed by [facility], [address] [facility] [place] [address] Glucose, Ur >1,000 Normal (<70) mg/dL [place] Ketones Ql (U) Trace Negative mg/dL [place] Comment on above: Test Performed by [facility], [facility] [address] [facility] [place] [address] LEUKOCYTES, UA 500 Negative Veronica/uL [place] Comment on above: Test Performed by [facility], [address] [facility] [place] [address] Mucous Threads Few Negative /[LPF] [place] Comment on above: Test Performed by [facility], [facility] [place] [facility] [place] [address] Nitrite, Urine Positive Negative NA [place], [place] Comment on above: Test Performed by [facility], [facility] [place] [facility] [place] [address] Occult Blood,Urine 0.03 mg/dL Negative [place], [place] Comment on above: Test Performed by [facility], [facility] [place] [facility] [place] [address] pH (U) 5.5 [pH] [place] Comment on above: Test Performed by [facility], [facility] [place] [facility] [place] [address] Protein (U) [Mass/Vol] Negative Negat estrella mg/dL [place], [place] Comment on above: Test Performed by [facility], [facility] [address] [facility] [place] [place] [address] RBC (U) [#/Vol] 6-10 0 - 2 /[HPF] [place] Comment on above: Test Performed by [facility], [facility] [address] [facility] [place] [place] [address] Specific [place], Urine >1.030 [place] Comment on above: Test Performed by [facility], [facility] [address] [facility] [place] [place] [address] Squam Epithel, UA 0-2 3 - 5 /[HPF] [place] Comment on above: Test Performed by [facility], [facility] [address] [facility] [address] [place] [address] Urobilinogen, Urine Normal Normal (0-1) mg/dL [place] Comment on above: Test Performed by [facility], [address] [place] [address] WBC Clumps, Urine Moderate Negative /[HPF] [place] Comment on above: Test Performed by [facility], [address] [place] [address] WBC, UA >100 0 - 5 /[HPF] [place] Comment on above: Test Performed by [facility], [address] [place] [address] Test Performed by [facility], [address] [place] [address] [place] XR CHEST PORTABLEon 11-29-19 [facility] Incoming Radiology Results From [facility] - 11/29/2019 5:04 AM EDT Patient Name: BEVERLY AGEE ---Diagnostic Radiology--- Exam Date/Time 11/29/2019 04:48:39 EDT Exam CR Chest Portable Ordering Physician DONY JUSTIN DANIEL M Accession Number [id number] CPT4 Codes 82288 () Reason For Exam cough, weakness Report PORTABLE CHEST Clinical indication: cough, weakness Comparison: 08/06/2018. The cardiac silhouette and mediastinal contours are not enlarged. Aorta is atherosclerotic. Lungs are clear. No pleural effusions are noted. IMPRESSION: No acute radiographic abnormality Report Dictated on --- Final --- Dictated: 11/29/2019 5:02 am Dictating Physician: MD MARIA DIANE Signed Date and Time: 11/29/2019 5:03 am Signed by: MD MARIA DIANE Transcribed Date and Time: 11/29/2019 5:02 [place], [place] Patient Name: BEVERLY SEE ---Diagnostic Radiology--- Exam Date/Time 11/29/2019 04:48:39 EDT Exam CR Chest Portable Ordering Physician DONY JUSTIN DANIEL M Accession Number [id number] CPT4 Codes 39373 () Reason For Exam cough, weakness Report PORTABLE CHEST Clinical indication: cough, weakness Comparison: 08/06/2018. The cardiac silhouette and mediastinal contours are not enlarged. Aorta is atherosclerotic. Lungs are clear. No pleural effusions are noted. IMPRESSION: No acute radiographic abnormality Report Dictated on --- Final --- Dictated: 11/29/2019 5:02 am Dictating Physician: MD MARIA DIANE Signed Date and Time: 11/29/2019 5:03 am Signed by: MD MARIA DIANE Transcribed Date and Time: 11/29/2019 5:02 [facility] [place] [place] X[facility] HIP RIGHT (2-3 VIEWS)on 0 11-29-2019 Patient Name: BEVERLY SEE ---Diagnostic Radiology--- Exam Date/Time 11/29/2019 04:48:39 EDT Exam CR Hip w/ Pelvis 2 or 3 Views Right n Ordering Physician DONY JUSTIN DANIEL M Accession Number [id number] CPT4 Codes 72747 () Reason For Exam pain, fall Report Right hip CLINICAL INDICATION: Pain after fall AP view of the pelvis and AP and lateral views of the right hip were obtained. There is severely comminuted intertrochanteric fracture of the right femur with proximal displacement of the femoral shaft fracture fragment. No significant anterior to posterior angulation or displacement is noted. There is no fracture noted in the pelvis. IMPRESSION: Comminuted intertrochanteric fracture with proximal displacement of the femoral shaft fracture fragment Report Dictated on --- Final --- Dictated: 11/29/2019 5:01 am Dictating Physician: MD MARIA DIANE Signed Date and Time: 11/29/2019 5:02 am Signed by: MD MARIA DIANE Transcribed Date and Time: 11/29/2019 5:01 [facility] [place], [place] [facility] Incoming Radiology Results From [facility] - 11/29/2019 5:04 AM EDT Patient Name: BEVERLY AGEE ---Diagnostic Radiology--- Exam Date/Time 11/29/2019 04:48:39 EDT Exam CR Hip w/ Pelvis 2 or 3 Views Right n Ordering Physician DONY JUSTIN DANIEL M Accession Number [id number] CPT4 Codes 83244 () Reason For Exam pain, fall Report Right hip CLINICAL INDICATION: Pain after fall AP view of the pelvis and AP and lateral views of the right hip were obtained. There is severely comminuted intertrochanteric fracture of the right femur with proximal displacement of the femoral shaft fracture fragment. No significant anterior to posterior angulation or displacement is noted. There is no fracture noted in the pelvis. IMPRESSION: Comminuted intertrochanteric fracture with proximal displacement of the femoral shaft fracture fragment Report Dictated on --- Final --- Dictated: 11/29/2019 5:01 am Dictating Physician: MD MARIA DIANE Signed Date and Time: 11/29/2019 5:02 am Signed by: MD MARIA DIANE Transcribed Date and Time: 11/29/2019 5:01 [place] XR KNEE RIGHT (1-2 VIEWS)on 11-29-2019 [facility] Incoming Radiology [facility] [facility] - 11/29/2019 5:02 AM EDT Patient Name: BEVERLY AGEE ---Diagnostic Radiology--- Exam Date/Time 11/29/2019 04:48:39 EDT Exam CR Knee 1 or 2 Views Right Ordering Physician DONY JUSTIN DANIEL M Accession Number [id number] CPT4 Codes 46345 () Reason For Exam rt hip fracture, include distal femur Report Right knee CLINICAL INDICATION: Right hip fracture. Evaluate distal femur. AP and lateral views of the right knee were obtained. There is an endoprosthesis. No fracture, dislocation or joint effusion is noted. IMPRESSION: No acute abnormality is noted in the right knee Report Dictated on --- Final --- Dictated: 11/29/2019 5:00 am Dictating Physician: MD MARIA DIANE Signed Date and Time: 11/29/2019 5:01 am Signed by: MD MARIA DIANE Transcribed Date and Time: 11/29/2019 5:00 [place] Patient Name: BEVERLY SEE ---Diagnostic Radiology--- Exam Date/Time 11/29/2019 04:48:39 EDT Exam CR Knee 1 or 2 Views Right Ordering Physician DONY JUSTIN DANIEL M Accession Number [id number] CPT4 Codes 69849 () Reason For Exam rt hip fracture, include distal femur Report Right knee CLINICAL INDICATION: Right hip fracture. Evaluate distal femur. AP and lateral views of the right knee were obtained. There is an endoprosthesis. No fracture, dislocation or joint effusion is noted. IMPRESSION: No acute abnormality is noted in the right knee Report Dictated on --- Final --- Dictated: 11/29/2019 5:00 am Dictating Physician: MD MARIA DIANE Signed Date and Time: 11/29/2019 5:01 am Signed by: MD MARIA DIANE Transcribed Date and Time: 11/29/2019 5:00 [place], [place] Vital Signs Date Time Vital Sign Value Performing Clinician Faci lity 07-01-2025 07:26-0500 Body temperature 97.7 [degF] Marbin Ambrose MD Work Phone: [facility] [employer] 07-01-2025 07:26-0500 Diastolic blood pressure 77 mm[Hg] Marbin Ambrose MD Work Phone: [facility] [employer] 07-01-2025 07:26-0500 Heart rate 59 /min Marbin Ambrose MD Work Phone: [facility] [employer] 07-01-2025 07:26-0500 Respiratory rate 18 /min Marbin Ambrose MD Work Phone: [employer] 07-01-2025 07:26-0500 SaO2% (BldA) [Mass fraction] 97 % Marbin Ambrose MD Work Phone: [facility] [employer] 07-01-2025 07:26-0500 Systolic blood pressure 117 mm[Hg] Marbin Ambrose MD Work Phone: [facility] [employer] 06-28-2025 19:59-0500 Body height 167.6 cm Marbin Ambrose MD Work Phone: [employer] 06-28-2025 19:59-0500 Body mass index (BMI) [Ratio] 28.15 kg/m2 Marbin Ambrose MD Work Phone: [employer] 06-28-2025 19:59-0500 Body weight 79.1 kg Marbin Ambrose MD Work Phone: [employer] 06-09-2025 08:07-0400 Body temperature 97.59 [degF] NICOLASA Olivera MD Work Phone: [employer] 06-09-2025 08:07-0400 Diastolic blood pressure 63 mm[Hg] NICOLASA Olivera MD Work Phone: [employer] 06-09-2025 08:07-0400 Heart rate 58 /min NICOLASA Olivrea MD Work Phone: [employer] 06-09-2025 08:07-0400 Respiratory rate 14 /min NICOLASA Olivera MD Work Phone: [employer] 06-09-2025 08:07-0400 SaO2% (BldA) [Mass fraction] 94 % NICOLASA Olivera MD Work Phone: [employer] 06-09-2025 08:07-0400 Systolic blood pressure 137 mm[Hg] NICOLASA Olivera MD Work Phone: [employer] 06-05-2025 14:40-0400 Body height 167.6 cm NICOLASA Olivera MD Work Phone: [employer] 06-05-2025 14:40-0400 Body mass index (BMI) [Ratio] 28.54 kg/m2 NICOLASA Olivera MD Work Phone: [employer] 06-05-2025 14:40-0400 Body weight 80.2 kg NICOLASA Olivera MD Work Phone: [employer] 05-26-2025 15:27-0400 Body height 167.6 cm iYfan Dooley DYE MAKER - PROGRAM DEVELOPMENT MANAGER Work Phone: [employer] 05-26-2025 15:27-0400 Body mass index (BMI) [Ratio] 29.54 kg/m2 Yifan Dooley DYE MAKER - PROGRAM DEVELOPMENT MANAGER Work Phone: [facility] [employer] 05-26-2025 15:27-0400 Body weight 83.01 kg Yifan Dooley DYE MAKER - PROGRAM DEVELOPMENT MANAGER Work Phone: [facility] [employer] 05-26-2025 15:27-0400 Diastolic blood pressure 76 mm[Hg] Yifan Dooley DYE MAKER - PROGRAM DEVELOPMENT MANAGER Work Phone: [facility] [employer] 05-26-2025 15:27-0400 Heart rate 102 /min Yifan Dooley DYE MAKER - PROGRAM DEVELOPMENT MANAGER Work Phone: [facility] [employer] 05-26-2025 15:27-0400 Systolic blood pressure 124 mm[Hg] Yifan Dooley DYE MAKER - PROGRAM DEVELOPMENT MANAGER Work Phone: [facility] [employer] 02-20-2025 13:50-0400 Diastolic blood pressure 70 mm[Hg] Gunner Stall PA-C Work Phone: [facility] [employer] 02-20-2025 13:50-0400 Systolic blood pressure 132 mm[Hg] Gunner Stall PA-C Work Phone: [facility] [employer] 02-20-2025 13:41-0400 Body height 160 cm Gunner Stall PA-C Work Phone: [facility] [employer] 02-20-2025 13:41-0400 Body mass index (BMI) [Ratio] 28.52 kg/m2 Gunner Stall PA-C Work Phone: [facility] [employer] 02-20-2025 13:41-0400 Body weight 73.03 kg Gunner Stall PA-C Work Phone: [facility] [employer] 02-20-2025 13:41-0400 Heart rate 98 /min Gunner Stall PA-C Work Phone: [facility] [employer] 01-21-2025 13:27-0400 Body mass index (BMI) [Ratio] 30.72 kg/m2 Agueda Burch DYE MAKER - PROGRAM DEVELOPMENT MANAGER Work Phone: [facility] [employer] 01-21-2025 13:27-0400 Body weight 78.65 kg Agueda Ezluisae DYE MAKER - PROGRAM DEVELOPMENT MANAGER Work Phone: [facility] [employer] 01-21-2025 11:40-0400 Body height 160 cm Lazara Moctezuma DYE MAKER - PROGRAM DEVELOPMENT MANAGER Work Phone: [facility] [employer] 01-21-2025 11:40-0400 Body mass index (BMI) [Ratio] 30.11 kg/m2 Lazara Moctezuma DYE MAKER - PROGRAM DEVELOPMENT MANAGER Work Phone: [facility] [employer] 01-21-2025 11:40-0400 Body temperature 96.3 [degF] Lazara Moctezuma DYE MAKER - PROGRAM DEVELOPMENT MANAGER Work Phone: [facility] [employer] 01-21-2025 11:40-0400 Body weight 77.11 kg Lazara Moctezuma DYE MAKER - PROGRAM DEVELOPMENT MANAGER Work Phone: [facility] [employer] 01-21-2025 11:40-0400 Diastolic blood pressure 71 mm[Hg] Lazara Moctezuma DYE MAKER - PROGRAM DEVELOPMENT MANAGER Work Phone: [facility] [employer] 01-21-2025 11:40-0400 Heart rate 75 /min Lazara Moctezuma DYE MAKER - PROGRAM DEVELOPMENT MANAGER Work Phone: [facility] [employer] 01-21-2025 11:40-0400 Respiratory rate 12 /min Lazara Moctezuma DYE MAKER - PROGRAM DEVELOPMENT MANAGER Work Phone: [facility] [employer] 01-21-2025 11:40-0400 SaO2% (BldA) [Mass fraction] 97 % Lazara Moctezuma DYE MAKER - PROGRAM DEVELOPMENT MANAGER Work Phone: [facility] [employer] 01-21-2025 11:40-0400 Systolic blood pressure 127 mm[Hg] Lazara Moctezuma DYE MAKER - PROGRAM DEVELOPMENT MANAGER Work Phone: [facility] [employer] 12-31-2024 14:50-0400 Diastolic blood pressure 62 mm[Hg] Agueda Ezzie DYE MAKER - PROGRAM DEVELOPMENT MANAGER Work Phone: [facility] [employer] 12-31-2024 14:50-0400 Heart rate 106 /min Agueda Ezzie DYE MAKER - PROGRAM DEVELOPMENT MANAGER Work Phone: [facility] [employer] 12-31-2024 14:50-0400 Systolic blood pressure 99 mm[Hg] Agueda Burch DYE MAKER - PROGRAM DEVELOPMENT MANAGER Work Phone: [employer] 12-31-2024 14:49-0400 Body mass index (BMI) [Ratio] 30.44 kg/m2 Agueda Burch DYE MAKER - PROGRAM DEVELOPMENT MANAGER Work Phone: [employer] 12-31-2024 14:49-0400 Body weight 77.93 kg Agueda Burch DYE MAKER - PROGRAM DEVELOPMENT MANAGER Work Phone: [employer] 11-20-2024 13:03-0400 Body height 160 cm Gunner Stall PA-C Work Phone: [employer] 11-20-2024 13:03-0400 Body mass index (BMI) [Ratio] 30.9 kg/m2 Gunner Stall PA-C Work Phone: [employer] 11-20-2024 13:03-0400 Body weight 79.11 kg Gunner Stall PA-C Work Phone: [employer] 11-20-2024 13:03-0400 Diastolic blood pressure 74 mm[Hg] Gunner Stall PA-C Work Phone: [employer] 11-20-2024 13:03-0400 Heart rate 88 /min Gunner Stall PA-C Work Phone: [employer] 11-20-2024 13:03-0400 Systolic blood pressure 134 mm[Hg] Gunner Stall PA-C Work Phone: [employer] 10-22-2024 07:58-0500 Body temperature 97.3 [degF] Wilber Gombash DO Work Phone: [employer] 10-22-2024 07:58-0500 Diastolic blood pressure 74 mm[Hg] Wilber Gombash DO Work Phone: [employer] 10-22-2024 07:58-0500 Heart rate 80 /min Wilber Gombash DO Work Phone: [employer] 10-22-2024 07:58-0500 Respiratory rate 16 /min Wilber Gombash DO Work Phone: [employer] 10-22-2024 07:58-0500 SaO2% (BldA) [Mass fraction] 96 % Wilber Gombash DO Work Phone: [employer] 10-22-2024 07:58-0500 Systolic blood pressure 148 mm[Hg] Wilber Gombash DO Work Phone: [employer] 10-22-2024 07:12-0500 Body height 160 cm Wilber Gombash DO Work Phone: [employer] 10-18-2024 23:47-0500 Body mass index (BMI) [Ratio] 31.59 kg/m2 Wilber Gombash DO Work Phone: [employer] 10-18-2024 23:47-0500 Body weight 80.88 kg Wilber Suleiman DO Work Phone: [employer] 01-15-2024 05:40-0400 Body temperature 96.3 [degF] Topher Alejandrarakola DO Work Phone: [employer] 01-15-2024 05:40-0400 Diastolic blood pressure 64 mm[Hg] Topher Mudrakola DO Work Phone: [employer] 01-15-2024 05:40-0400 Heart rate 71 /min Topher Aeljandrarakola DO Work Phone: [employer] 01-15-2024 05:40-0400 Respiratory rate 18 /min Topher Alejandrarakola DO Work Phone: [employer] 01-15-2024 05:40-0400 SaO2% (BldA) [Mass fraction] 100 % Topher Mudrakola DO Work Phone: [employer] 01-15-2024 05:40-0400 Systolic blood pressure 133 mm[Hg] Topher Mudrakola DO Work Phone: [employer] 01-10-2024 18:54-0400 Body height 167.6 cm Topher Mudrakola DO Work Phone: [facility] [employer] 01-10-2024 18:54-0400 Body mass index (BMI) [Ratio] 25.82 kg/m2 Topher Saini DO Work Phone: [facility] [employer] 01-10-2024 18:54-0400 Body weight 72.58 kg Topher Saini DO Work Phone: [facility] [employer] 12-24-2023 15:48-0400 Body temperature 97.59 [degF] Alexander Ledbetter MD Work Phone: [facility] [employer] 12-24-2023 15:48-0400 Diastolic blood pressure 58 mm[Hg] Alexander Ledbetter MD Work Phone: [facility] [employer] 12-24-2023 15:48-0400 Heart rate 97 /min Alexander Ledbetter MD Work Phone: [facility] [employer] 12-24-2023 15:48-0400 Respiratory rate 16 /min Alexander Ledbetter MD Work Phone: [facility] [employer] 12-24-2023 15:48-0400 SaO2% (BldA) [Mass fraction] 99 % Alexander Ledbetter MD Work Phone: [facility] [employer] 12-24-2023 15:48-0400 Systolic blood pressure 100 mm[Hg] Alexander Ledbetter MD Work Phone: [facility] [employer] 12-12-2023 21:42-0400 Body height 160 cm Alexander Ledbetter MD Work Phone: [facility] [employer] 12-12-2023 21:42-0400 Body mass index (BMI) [Ratio] 28.34 kg/m2 Alexander Ledbetter MD Work Phone: [facility] [employer] 12-12-2023 21:42-0400 Body weight 72.58 kg Alexander Ledbetter MD Work Phone: [facility] [employer] 12-11-2023 13:21-0400 Body mass index (BMI) [Ratio] 26.63 kg/m2 Mariah Hossein DO Work Phone: [facility] [employer] 12-11-2023 13:21-0400 Body temperature 97 [degF] Mariah Catalan DO Work Phone: [facility] [employer] 12-11-2023 13:21-0400 Body weight 72.58 kg Mariah Catalan DO Work Phone: [facility] [employer] 12-11-2023 13:21-0400 Diastolic blood pressure 78 mm[Hg] Mariah Catalan DO Work Phone: [facility] [employer] 12-11-2023 13:21-0400 Heart rate 74 /min Mariah Catalan DO Work Phone: [facility] [employer] 12-11-2023 13:21-0400 SaO2% (BldA) [Mass fraction] 96 % Mariah Catalan DO Work Phone: [facility] [employer] 12-11-2023 13:21-0400 Systolic blood pressure 132 mm[Hg] Mariah Catalan DO Work Phone: [facility] [employer] 08-30-2022 15:57-0500 Body height 165.1 cm Laisha Hodge APRN - DONY Work Phone: [facility] [employer] 08-30-2022 15:57-0500 Body mass index (BMI) [Ratio] 34.65 kg/m2 Laisha Hodge APRN - PROGRAM DEVELOPMENT MANAGER Work Phone: [facility] [employer] 08-30-2022 15:57-0500 Body temperature 97.11 [degF] Laisha Hodge APRN - PROGRAM DEVELOPMENT MANAGER Work Phone: [facility] [employer] 08-30-2022 15:57-0500 Body weight 94.44 kg Laisha Hodge DYE MAKER - PROGRAM DEVELOPMENT MANAGER Work Phone: [facility] [employer] 08-30-2022 15:57-0500 Diastolic blood pressure 84 mm[Hg] Laisha Hodge APRN - PROGRAM DEVELOPMENT MANAGER Work Phone: [facility] [employer] 08-30-2022 15:57-0500 Heart rate 99 /min Laisha Hodge APRN - PROGRAM DEVELOPMENT MANAGER Work Phone: [facility] [employer] 08-30-2022 15:57-0500 SaO2% (BldA) [Mass fraction] 96 % Laisha Hodge APRN Mariella PROGRAM DEVELOPMENT MANAGER Work Phone: [facility] 08-30-2022 15:57-0500 Systolic blood pressure 130 mm[Hg] Laisha Hodge APRN Mariella PROGRAM DEVELOPMENT MANAGER Work Phone: [facility] 08-01-2021 17:06-0500 Diastolic blood pressure 77 mm[Hg] Josh Mercedes MD Work Phone: [facility] 08-01-2021 17:06-0500 Heart rate 104 /min Josh Daren OG Work Phone: [facility] 08-01-2021 17:06-0500 Respiratory rate 20 /min Josh Mercedes MD Work Phone: [facility] 08-01-2021 17:06-0500 SaO2% (BldA) [Mass fraction] 94 % Johs Mercedes MD Work Phone: [facility] 08-01-2021 17:06-0500 Systolic blood pressure 131 mm[Hg] Josh Mercedes MD Work Phone: [facility] 08-01-2021 13:45-0500 Body height 165.1 cm Josh Mercedes MD Work Phone: [facility] 08-01-2021 13:45-0500 Body mass index (BMI) [Ratio] 36.61 kg/m2 Johs Mercedes MD Work Phone: [facility] 08-01-2021 13:45-0500 Body temperature 98.29 [degF] Josh Mercedes MD Work Phone: [facility] 08-01-2021 13:45-0500 Body weight 99.79 kg Josh Mercedes MD Work Phone: [facility] 01-23-2020 12:12-0400 Body Temperature 97.39 [degF] [facility], [place] 01-23-2020 12:12-0400 BP Diastolic 56 mm[Hg] [facility] [place] 01-23-2020 12:12-0400 BP Systolic 96 mm[Hg] [facility] , [place] 01-23-2020 12:12-0400 Pulse (Heart Rate) 88 /min [facility], [place] 01-23-2020 12:12-0400 Pulse Oximetry 97 % [facility] , [place] 01-23-2020 12:12-0400 Respiratory Rate 16 /min [facility] [place] 01-21-2020 12:24-0400 BMI (Body Mass Index) 31.3 kg/m2 Melo Keane [facility], [place] 01-21-2020 12:24-0400 Body weight 85.31 kg [facility] , [place] 01-21-2020 12:24-0400 Height 165.1 cm [facility] [place] 12-03-2019 06:16-0400 Body Temperature 96.91 [degF] [facility] [place] 12-03-2019 06:16-0400 BP Diastolic 52 mm[Hg] [facility] [place] 12-03-2019 06:16-0400 BP Systolic 104 mm[Hg] [facility] [place] 12-03-2019 06:16-0400 Pulse (Heart Rate) 79 /min [facility] [place] 12-03-2019 06:16-0400 Pulse Oximetry 91 % [facility] [place] 12-03-2019 06:16-0400 Respiratory Rate 18 /min [facility] [place] 11-29-2019 04:04-0400 BMI (Body Mass Index) 33.28 kg/m2 Ez Cano [facility], [place] 11-29-2019 04:04-0400 Body weight 90.72 kg [facility] [place] 11-29-2019 04:04-0400 Height 165.1 cm [place] Encounters Encounter Date Encounter Type Care Provider Facility Start: 06-28-2025 End: 07-01-2025 ambulatory [facility] Start: 06-28-2025 End: 07-01-2025 Evaluation and management of inpatient Marbin Ambrose MD Work Phone: [facility] Comment on above: Urinary tract infect ion in female (Primary Dx); Altered mental status, unspecified altered mental status type Start: 06-24-2025 End: 06-24-2025 Telephone encounter Neno Euceda MD Work Phone: [facility] Comment on above: New Patient (07/02/25 1:00 PM new patient appointment/) Start: 06-23-2025 End: 06-23-2025 Telephone encounter Neno Iqbal MD Work Phone: [facility] Clinical Communication Comment on above: Other Start: 06-11-2025 ambulatory Mónica Rodriguez ity:[facility] Start: 06-05-2025 End: 06-09-2025 ambulatory [facility] Start: 06-05-2025 End: 06-09-2025 Evaluation and management of inpatient J Vivienne Olivera MD Work Phone: [facility] Medical Unit [address] Comment on above: Fall, initial encoun ter (Primary Dx); Syncope, unspecified syncope type; Mixed Alzheimer and vascular dementia (CMS/HCC); At risk for delirium Start: 05-26-2025 End: 05-26-2025 Office outpatient visit 25 minutes Yifan Dooley DYE MAKER - PROGRAM DEVELOPMENT MANAGER Work Phone: [facility] Comment on above: Type 2 diabetes quentin itus with hyperglycemia, with long-term current use of insulin (HCC) (Primary Dx); Hypertension associated with type 2 diabetes mellitus (HCC); Hyperlipidemia associated with type 2 diabetes mellitus (HCC); Class 1 obesity with serious comorbidity and body mass index (BMI) of 31.0 to 31.9 in adult, unspecified obesity type Start: 05-26-2025 End: 05-26-2025 ambulatory [facility] Start: 05-26-2025 End: 05-26-2025 Telephone encounter Yifan Dooley DYE MAKER - PROGRAM DEVELOPMENT MANAGER Work Phone: [facility] Start: 04-16-2025 End: 04-16-2025 Telephone encounter Agueda Burch DYE MAKER - PROGRAM DEVELOPMENT MANAGER [facility] Start: 02-20-2025 End: 02-20-2025 Office outpatient visit 25 minutes John Nancy CARNES Work Phone: [facility] Comment on above: Type 2 diabetes quentin itus with hyperglycemia, with long-term current use of insulin (HCC) (Primary Dx); Hypertension associated with type 2 diabetes mellitus (HCC); Hyperlipidemia associated with type 2 diabetes mellitus (HCC); Class 1 obesity with serious comorbidity and body mass index (BMI) of 31.0 to 31.9 in adult, unspecified obesity type Start: 02-20-2025 End: 02-20-2025 ambulatory JOHN CRUZ [facility] Start: 02-05-2025 End: 04-07-2025 Follow-up encounter Agueda Burch DYE MAKER - PROGRAM DEVELOPMENT MANAGER Work Phone: [facility] Comment on above: Phosphorylated 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), Plasma Start: 01-22-2025 End: 03-24-2025 Follow-up encounter Agueda Burch DYE MAKER - PROGRAM DEVELOPMENT MANAGER Work Phone: [facility] Comment on above: MR brain wo contrast Start: 01-21-2025 End: 01-21-2025 Office outpatient visit 40 minutes Agueda Paresh DYE MAKER - PROGRAM DEVELOPMENT MANAGER Work Phone: [facility] Comment on above: Mixed Alzheimer's an d vascular dementia (HCC) (Primary Dx); Depression, unspecified depression type Start: 01-21-2025 End: 01-21-2025 ambulatory AGUEDA BURCH [facility] Start: 01-21-2025 End: 01-21-2025 ambulatory LAZARA MOCTEZUMA [facility] Start: 01-21-2025 End: 01-21-2025 Office outpatient visit 25 minutes Lazara Moctezuma DYE MAKER - PROGRAM DEVELOPMENT MANAGER Work Phone: [facility] Comment on above: Memory impairment (P rimary Dx); Palliative care encounter Start: 01-15-2025 End: 03-17-2025 Follow-up encounter John BECKFORD-C Work Phone: [facility] Comment on above: Lipid panel Start: 01-14-2025 End: 04-15-2025 Patient encounter procedure Shaun Lara RN [facility] al Communication Comment on above: Other symptoms and s igns involving cognitive functions and awareness (Primary Dx); Other amnesia Start: 01-14-2025 End: 01-14-2025 ambulatory Shaun Lara RN [facility] Clinical Communication Start: 12-31-2024 End: 12-31-2024 Office outpatient visit 40 minutes [facility] RADHA - PROGRAM DEVELOPMENT MANAGER Work Phone: [facility] Comment on above: Memory loss (Primary Dx); Cognitive impairment; Depression, unspecified depression type Start: 12-31-2024 End: 12-31-2024 ambulatory [facility] Start: 12-05-2024 End: 12-05-2024 ambulatory Danni Mckeon RN [facility] Clinical Communication Start: 12-05-2024 End: 12-05-2024 [facility] Start: 12-02-2024 End: 12-03-2024 Telephone encounter John Cruz PA-C Work Phone: [facility] Start: 11-29-2024 End: 11-29-2024 [facility]ulatory [facility] Start: 11-29-2024 End: 11-29-2024 Patient encounter procedure Glenda Oliveira RN [facility] al Communication Start: 11-20-2024 End: 11-20-2024 Office outpatient new 45 minutes John BECKFORD-C Work Phone: [facility] Comment on above: Type 2 diabetes quentin itus with hyperglycemia, with long-term current use of insulin (HCC) (Primary Dx); Hypertension associated with type 2 diabetes mellitus (HCC) (HCC); Hyperlipidemia associated with type 2 diabetes mellitus (HCC) (HCC); Class 1 obesity with serious comorbidity and body mass index (BMI) of 31.0 to 31.9 in adult, unspecified obesity type Start: 11-20-2024 End: 11-20-2024 [facility] Start: 11-03-2024 End: 11-03-2024 ambulatory Mónica Angel OLS [facility] Work Phone: Start: 11-03-2024 End: 11-03-2024 Departed Referred Mónica Cro[place]sworth - [address] Start: 11-03-2024 Registered Referred Mónica Alan ltmilonorberto Milner - [address] Start: 11-03-2024 End: 11-03-2024 ambulatory Mónica Angel SAN Facility:[facility] Start: 10-23-2024 End: 10-23-2024 ambulatory Mónica SAN [facility] Work Phone: Start: 10-23-2024 End: 10-23-2024 Departed Referred Mónica Milner - [address] Start: 10-23-2024 End: 10-23-2024 ambulatory Mónica Angel SAN Facility:[facility] Start: 10-18-2024 End: 10-22-2024 Evaluation and management of inpatient Wilber Marie DO Work Phone: [facility] Comment on above: Hypoglycemia (Primar y Dx); Urinary tract infection without hematuria, site unspecified; Cognitive impairment; Fall, initial encounter; Vitamin D deficiency; Polypharmacy; Delirium Start: 03-24-2024 End: 03-24-2024 ambulatory Shaun Hill RN [facility] Start: 03-24-2024 End: 03-24-2024 Patient encounter procedure Shaun Hill RN [facility] Start: 02-22-2024 End: 05-23-2024 Subsequent hospital visit by physician Neno Iqbal MD Work Phone: [facility] Radiology Comment on above: Pain in right hand; Pain in right shoulder Pain in right hand ( Primary Dx); Pain in right shoulder Start: 01-10-2024 End: 01-15-2024 Evaluation and management of inpatient Topher Saini DO Work Phone: [facility] Respiratory Unit 7W Comment on above: Complicated UTI (uri nary tract infection) (Primary Dx); Fall, initial encounter Start: 12-12-2023 End: 12-24-2023 Evaluation and management of inpatient Alexander Ledbetter MD Work Phone: [facility] Surgical Progressive Care Unit PCU H6 Start: 12-11-2023 End: 12-11-2023 Office outpatient visit 15 minutes Mariah Catalan DO Work Phone: [facility] Comment on above: Rib pain on right si de (Primary Dx); Frequent falls Start: 10-02-2023 Transcribe Orders Neno Iqbal MD Work Phone: [facility] Central Scheduling Comment on above: Repeated falls (Prim ana paula Dx) Start: 09-27-2023 Transcribe Orders Neno Iqbal MD Work Phone: [facility] Central Scheduling Start: 09-02-2023 ambulatory Femi Bhatia RN [facility] Clinical Communication Start: 09-02-2023 Patient encounter procedure Femi mcfarlane RN [facility] Clinical Communication Start: 08-11-2023 End: 08-11-2023 Subsequent hospital visit by physician Neno Iqbal MD Work Phone: [facility] X-ray Imaging Comment on above: Other chest pain Other chest pain (Pr imary Dx) Start: 03-17-2023 End: 03-17-2023 Subsequent hospital visit by physician Neno Iqbal MD Work Phone: [facility] X-ray Imaging Comment on above: Sacrococcygeal disor ders, not elsewhere classified Sacrococcygeal disor ders, not elsewhere classified (Primary Dx) Start: 02-17-2023 ambulatory Jocelyne Adam RN [facility] Clinical Communication Start: 02-17-2023 Patient encounter procedure Jocelyne Adam RN [facility] Clinical Communication Start: 12-18-2022 Shilo salguero MD Work Phone: [facility] Internal Medicine Start: 09-11-2022 Telephone encounter Laisha Brownlee rter DYE MAKER - PROGRAM DEVELOPMENT MANAGER Work Phone: [facility] Comment on above: Release of Informati on Start: 08-31-2022 Refill Grecia salguero MD Work Phone: [facility] [place] [facility] Start: 08-30-2022 End: 08-30-2022 Office outpatient visit 25 minutes Laisha Hodge DYE MAKER - PROGRAM DEVELOPMENT MANAGER Work Phone: [facility] Comment on above: Dysuria (Primary Dx) Start: 08-25-2022 ambulatory Charlotte Berkowitz RN [facility] C linical Communication Start: 08-25-2022 Patient encounter procedure Charlotte tee RN [facility] Clinical Communication Start: 08-01-2021 End: 08-01-2021 Emergency department patient visit Josh Mercedes MD Work Phone: [facility] Emergency Dept Comment on above: Closed fracture of o ne rib of left side, initial encounter (Primary Dx); Hemothorax Start: 01-21-2020 End: 01-23-2020 Subsequent hospital visit by physician Melo Keane Work Phone: [facility] MED SURG Comment on above: Hip fracture requiri ng operative repair, right, closed, initial encounter (HCC) (Primary Dx); Closed displaced intertrochanteric fracture of right femur, initial encounter (HCC) Start: 11-29-2019 End: 12-03-2019 Evaluation and management of inpatient Ez Cano Work Phone: [facility] Comment on above: Hyperglycemia (Prima ry Dx); Generalized weakness; Urinary tract infection without hematuria, site unspecified; Fall, initial encounter; Closed displaced intertrochanteric fracture of right femur, initial encounter (HCC); Essential hypertension Start: 08-01-2019 End: 08-01-2019 Subsequent hospital visit by physician Grecia Mccabe Work Phone: [facility] Comment on above: Arrived Start: 02-03-2016 Patient encounter procedure Shital Mercedes MD Work Phone: [facility] Work Phone: Procedures Date Procedure Procedure Detail Performing Clinician Start: 07-01-2025 Glucose quantitative blood xcpt reagent strip Waldo Guillen MD Work Phone: Start: 07-01-2025 Glucose quantitative blood xcpt reagent strip Waldo Guillen MD Work Phone: Start: 07-01-2025 Basic metabolic pane l calcium total Mindi Shirley Stanik DYE MAKER - PROGRAM DEVELOPMENT MANAGER Work Phone: Start: 06-30-2025 Glucose quantitative blood xcpt reagent strip Waldo Guillen MD Work Phone: Start: 06-30-2025 Glucose quantitative blood xcpt reagent strip Waldo Guillen MD Work Phone: Start: 06-30-2025 Glucose quantitative blood xcpt reagent strip Waldo Guillen MD Work Phone: Start: 06-30-2025 Glucose quantitative blood xcpt reagent strip Waldo Guillen MD Work Phone: Start: 06-30-2025 Basic metabolic pane l calcium total Mindi Shirley Stanandrea DYE MAKER - PROGRAM DEVELOPMENT MANAGER Work Phone: Start: 06-29-2025 Glucose quantitative blood xcpt reagent strip Waldo Guillen MD Work Phone: Start: 06-29-2025 Glucose quantitative blood xcpt reagent strip Waldo Guillen MD Work Phone: Start: 06-29-2025 Glucose quantitative blood xcpt reagent strip Waldo Guillen MD Work Phone: Start: 06-29-2025 Glucose quantitative blood xcpt reagent strip Waldo Guillen MD Work Phone: Start: 06-29-2025 End: 06-29-2025 Basic metabolic panel calcium total Darrin Iniguez MD Work Phone: Start: 06-28-2025 Glucose quantitative blood xcpt reagent strip Darrin Iniguez MD Work Phone: Start: 06-28-2025 Assay of troponin quantitative Annabel Ferreira DO Work Phone: Start: 06-28-2025 Culture bacterial quanttative colony count urine Annabel Ferreira DO Work Phone: Start: 06-28-2025 Ct abdomen & pelvis w/contrast material Annabel Ferreira DO Work Phone: Start: 06-28-2025 Ct head/brain w/o co ntrast material Annabel Ferreira DO Work Phone: Start: 06-28-2025 Radiologic exam ches t single view Annabel Ferreira DO Work Phone: Start: 06-28-2025 Ecg routine ecg w/le ast 12 lds trcg only w/o i&r Annabel Ferreira DO Work Phone: Start: 06-28-2025 Bacteria identified in Blood by Culture Annabel Ferreira DO Work Phone: Start: 06-28-2025 Comprehensive metabo lic panel Annabel Ferreira DO Work Phone: Start: 06-09-2025 Glucose quantitative blood xcpt reagent strip Seema Barahona MD Work Phone: Start: 06-09-2025 Glucose quantitative blood xcpt reagent strip Seema Barahona MD Work Phone: Start: 06-09-2025 Comprehensive metabo lic panel Jayy White MD Work Phone: Start: 06-08-2025 Glucose quantitative blood xcpt reagent strip Josy Duenas MD Work Phone: Start: 06-08-2025 Glucose quantitative blood xcpt reagent strip Josy Duensa MD Work Phone: Start: 06-08-2025 End: 06-08-2025 Glucose quantitative blood xcpt reagent strip Josy Duenas MD Work Phone: Start: 06-08-2025 End: 06-08-2025 Comprehensive metabolic panel Jayy White MD Work Phone: Start: 06-07-2025 Glucose quantitative blood xcpt reagent strip Yayo Merrittntire DO Work Phone: Start: 06-07-2025 Glucose quantitative blood xcpt reagent strip Yayo Ramírezire DO Work Phone: Start: 06-07-2025 Glucose quantitative blood xcpt reagent strip Yayo Ramírezire DO Work Phone: Start: 06-07-2025 Glucose quantitative blood xcpt reagent strip Yayo Merrittntire DO Work Phone: Start: 06-07-2025 Glucose quantitative blood xcpt reagent strip Yayo Merrittntire DO Work Phone: Start: 06-07-2025 Comprehensive metabo lic panel Jayy White MD Work Phone: Start: 06-06-2025 Glucose quantitative blood xcpt reagent strip Yayo Merrittntire DO Work Phone: Start: 06-06-2025 Echo tthrc r-t 2d w/wom-mode compl spec&colr d Jayy White MD Work Phone: Start: 06-06-2025 Glucose quantitative blood xcpt reagent strip Yayo Ramírezire DO Work Phone: Start: 06-06-2025 End: 06-06-2025 Glucose quantitative blood xcpt reagent strip Yayo Ramírezire DO Work Phone: Start: 06-06-2025 Comprehensive metabo lic panel Jayy White MD Work Phone: Start: 06-05-2025 Glucose quantitative blood xcpt reagent strip Jayy White MD Work Phone: Start: 06-05-2025 Assay of lactate J Franca Olivera MD Work Phone: Start: 06-05-2025 Bacteria identified in Blood by Culture Rob Shepard MD Work Phone: Start: 06-05-2025 Creatine kinase total H link White MD Work Phone: Start: 06-05-2025 Culture bacterial quanttative colony count urine J Vivienne Olivera MD Work Phone: Start: 06-05-2025 Drug tst prsmv instr mnt chem analyzers pr date J Vivienne Olivera MD Work Phone: Start: 06-05-2025 Ct abdomen & pelvis w/contrast material Jen Olivera MD Work Phone: Start: 06-05-2025 Ct cervical spine w/ o contrast material Jen Olivera MD Work Phone: Start: 06-05-2025 Ct head/brain w/o co ntrast material Jen Olivera MD Work Phone: Start: 06-05-2025 Ecg routine ecg w/le ast 12 lds trcg only w/o i&r Jen Olivera MD Work Phone: Start: 06-05-2025 Radiologic exam ches t single view Jen Olivear MD Work Phone: Start: 06-05-2025 Radiologic examinati on pelvis 1/2 views Jen Olivera MD Work Phone: Start: 06-05-2025 Antibody screen NENO IQBAL Comment on above: Performed By: #### L [id number] ####Fisher Mussel: NOA PRYOR ([id number])[facility] ([address] Start: 06-05-2025 Basic metabolic pane l calcium total Jen Olivera MD Work Phone: Start: 06-05-2025 Drug test def 1-7 classes Jen Olivera MD Work Phone: Start: 05-26-2025 Hemoglobin glycosylated a1c Yifan Dooley DYE MAKER - PROGRAM DEVELOPMENT MANAGER Work Phone: Start: 05-26-2025 Follow-up visit NENO IQBAL Start: 02-20-2025 Follow-up visit NENO IQBAL Start: 02-20-2025 Glucose post glucose dose Gunner Stall PA-C Work Phone: Start: 01-21-2025 End: 01-21-2025 Follow-up visit NENO IQBAL Start: 01-14-2025 Comprehensive metabo lic panel John Stall PA-C Work Phone: Start: 01-14-2025 Lipid panel John Sta ll PA-C Work Phone: Start: 12-31-2024 Follow-up visit NENO IQBAL Start: 11-20-2024 Glucose post glucose dose John Stall PA-C Work Phone: Start: 11-20-2024 Follow-up visit NENO IQBAL Start: 11-03-2024 Urine culture Mónica Guerra hner OLS Start: 10-22-2024 Glucose quantitative blood xcpt reagent strip Waldo Guillen MD Work Phone: Start: 10-22-2024 Glucose quantitative blood xcpt reagent strip Waldo Guillen MD Work Phone: Start: 10-22-2024 Glucose quantitative blood xcpt reagent strip Waldo Guillen MD Work Phone: Start: 10-22-2024 Basic metabolic pane l calcium total Waldo Guillen MD Work Phone: Start: 10-21-2024 Glucose quantitative blood xcpt reagent strip Waldo Guillen MD Work Phone: Start: 10-21-2024 End: 10-21-2024 Cyanocobalamin vitamin b-12 May Fern Aron DYE MAKER - PROGRAM DEVELOPMENT MANAGER Work Phone: Start: 10-21-2024 Assay of thyroid stimulating hormone tsh May M Banko DYE MAKER - PROGRAM DEVELOPMENT MANAGER Work Phone: Start: 10-21-2024 Glucose quantitative blood xcpt reagent strip Waldo Guillen MD Work Phone: Start: 10-21-2024 End: 10-21-2024 Cortisol total Dwayne Tutu-Radha Work Phone: Start: 10-20-2024 Glucose quantitative blood xcpt reagent strip Darrin Iniguez MD Work Phone: Start: 10-20-2024 Glucose quantitative blood xcpt reagent strip Darrin Iniguez MD Work Phone: Start: 10-20-2024 Glucose quantitative blood xcpt reagent strip Darrin Iniguez MD Work Phone: Start: 10-20-2024 Glucose quantitative blood xcpt reagent strip Darrin Iniguez MD Work Phone: Start: 10-20-2024 Basic metabolic pane l calcium total Darrin Iniguez MD Work Phone: Start: 10-19-2024 Glucose quantitative blood xcpt reagent strip Darrin Iniguez MD Work Phone: Start: 10-19-2024 Glucose quantitative blood xcpt reagent strip Darrin Iniguez MD Work Phone: Start: 10-19-2024 Glucose quantitative blood xcpt reagent strip Darrin Iniguez MD Work Phone: Start: 10-19-2024 End: 10-19-2024 POCT GLUCOSE METER UNSOLICITED RESULTS Darrin Iniguez MD Work Phone: Start: 10-19-2024 End: 10-19-2024 Comprehensive metabolic panel Mónica Tiwari MD Work Phone: Start: 10-19-2024 POCT GLUCOSE METER UNSOLICITED RESULTS Mónica Tiwari MD Work Phone: Start: 10-18-2024 End: 10-18-2024 Assay of troponin quantitative Melinda Jesus Manuel DO Work Phone: Start: 10-18-2024 End: 10-18-2024 Assay of troponin quantitative Melinda Jesus Manuel DO Work Phone: Start: 10-18-2024 Culture bacterial quanttative colony count urine Melinda Jesus Manuel DO Work Phone: Start: 10-18-2024 Urinalysis complete panel - Urine Melinda Jesus Manuel DO Work Phone: Start: 10-18-2024 Ct cervical spine w/ o contrast material Melinda Jesus Manuel DO Work Phone: Start: 10-18-2024 Ct head/brain w/o co ntrast material Melinda Ken DO Work Phone: Start: 10-18-2024 End: 10-18-2024 Comprehensive metabolic panel Melinda Ken DO Work Phone: Start: 10-18-2024 Ecg routine ecg w/le ast 12 lds trcg only w/o i&r Melinda Ken DO Work Phone: Start: 02-22-2024 Radex shoulder compl ete minimum 2 views Neno Iqbal MD Work Phone: Start: 01-15-2024 Glucose quantitative blood xcpt reagent strip Graciela Ledbetter DO Work Phone: Start: 01-15-2024 Glucose quantitative blood xcpt reagent strip Graciela Ledbetter DO Work Phone: Start: 01-14-2024 Glucose quantitative blood xcpt reagent strip Ethan Urbina MD Work Phone: Start: 01-14-2024 Glucose quantitative blood xcpt reagent strip Ethan Urbina MD Work Phone: Start: 01-14-2024 Glucose quantitative blood xcpt reagent strip Ethan Urbina MD Work Phone: Start: 01-14-2024 Glucose quantitative blood xcpt reagent strip Ethan Urbina MD Work Phone: Start: 01-13-2024 Glucose quantitative blood xcpt reagent strip Ethan Urbina MD Work Phone: Start: 01-13-2024 Glucose quantitative blood xcpt reagent strip Ethan Urbina MD Work Phone: Start: 01-13-2024 Glucose quantitative blood xcpt reagent strip Ethan Urbina MD Work Phone: Start: 01-13-2024 Glucose quantitative blood xcpt reagent strip Ethan Urbina MD Work Phone: Start: 01-12-2024 Glucose quantitative blood xcpt reagent strip Ethan Urbina MD Work Phone: Start: 01-12-2024 Glucose quantitative blood xcpt reagent strip Ethan Urbina MD Work Phone: Start: 01-12-2024 Glucose quantitative blood xcpt reagent strip Ethan Urbina MD Work Phone: Start: 01-12-2024 Glucose quantitative blood xcpt reagent strip Ethan Urbina MD Work Phone: Start: 01-11-2024 Glucose quantitative blood xcpt reagent strip Ethan Urbina MD Work Phone: Start: 01-11-2024 Glucose quantitative blood xcpt reagent strip Ethan Urbina MD Work Phone: Start: 01-11-2024 Glucose quantitative blood xcpt reagent strip Ethan Urbina MD Work Phone: Start: 01-11-2024 Glucose quantitative blood xcpt reagent strip Ethan Urbina MD Work Phone: Start: 01-11-2024 Assay of troponin quantitative Evan Richardson MD Work Phone: Start: 01-10-2024 Assay of lactate Topher Yeny DO Work Phone: Start: 01-10-2024 Culture bacterial quanttative colony count urine Evan Richardson MD Work Phone: Start: 01-10-2024 Urinalysis complete panel - Urine Evan Richardson MD Work Phone: Start: 01-10-2024 End: 01-10-2024 Radiologic examination femur minimum 2 views Evan Richardson MD Work Phone: Start: 01-10-2024 Ecg routine ecg w/le ast 12 lds trcg only w/o i&r Evan Richardson MD Work Phone: Start: 01-10-2024 Comprehensive metabo lic panel Evan Richardson MD Work Phone: Start: 01-10-2024 Glucose quantitative blood xcpt reagent strip Topher Saini DO Work Phone: Start: 12-24-2023 Glucose quantitative blood xcpt reagent strip Charlotte Braswell MD Work Phone: Start: 12-24-2023 Glucose quantitative blood xcpt reagent strip Charlotte Braswell MD Work Phone: Start: 12-23-2023 Glucose quantitative blood xcpt reagent strip Charlotte Braswell MD Work Phone: Start: 12-23-2023 Glucose quantitative blood xcpt reagent strip Charlotte Braswell MD Work Phone: Start: 12-23-2023 End: 12-23-2023 Glucose quantitative blood xcpt reagent strip Charlotte Braswell MD Work Phone: Start: 12-23-2023 Glucose quantitative blood xcpt reagent strip Charlotte Braswell MD Work Phone: Start: 12-23-2023 Glucose quantitative blood xcpt reagent strip Charlotte Braswell MD Work Phone: Start: 12-23-2023 Basic metabolic pane l calcium total Charlotte Damon DYE MAKER - PROGRAM DEVELOPMENT MANAGER Work Phone: Start: 12-22-2023 Glucose quantitative blood xcpt reagent strip Charlotte Braswell MD Work Phone: Start: 12-22-2023 Glucose quantitative blood xcpt reagent strip Charlotte Braswell MD Work Phone: Start: 12-22-2023 Glucose quantitative blood xcpt reagent strip Charlotte Braswell MD Work Phone: Start: 12-22-2023 End: 12-22-2023 Glucose quantitative blood xcpt reagent strip Charlotte Braswell MD Work Phone: Start: 12-22-2023 Radiologic exam ches t single view Charlotte Damon DYE MAKER - PROGRAM DEVELOPMENT MANAGER Work Phone: Start: 12-21-2023 Glucose quantitative blood xcpt reagent strip Charlotte Braswell MD Work Phone: Start: 12-21-2023 Glucose quantitative blood xcpt reagent strip Charlotte Braswell MD Work Phone: Start: 12-21-2023 Glucose quantitative blood xcpt reagent strip Charlotte Braswell MD Work Phone: Start: 12-21-2023 Glucose quantitative blood xcpt reagent strip Charlotte Braswell MD Work Phone: Start: 12-21-2023 Basic metabolic pane l calcium total Lucille Soto MD Work Phone: Start: 12-20-2023 Glucose quantitative blood xcpt reagent strip Charlotte Braswell MD Work Phone: Start: 12-20-2023 Glucose quantitative blood xcpt reagent strip Charlotte Braswell MD Work Phone: Start: 12-20-2023 Radex spine lumbosac ral 2/3 views Carmelmanjinder Sanchezon DYE MAKER - PROGRAM DEVELOPMENT MANAGER Work Phone: Start: 12-20-2023 Radiologic exam ches t single view Carmel Ceballos DYE MAKER - PROGRAM DEVELOPMENT MANAGER Work Phone: Start: 12-20-2023 Glucose quantitative blood xcpt reagent strip Charlotte Braswell MD Work Phone: Start: 12-20-2023 Glucose quantitative blood xcpt reagent strip Charlotte Braswell MD Work Phone: Start: 12-20-2023 Radiologic exam ches t single view Lucille Soto MD Work Phone: Start: 12-20-2023 Basic metabolic pane l calcium total Lucille Soto MD Work Phone: Start: 12-19-2023 Glucose quantitative blood xcpt reagent strip Charlotte Braswell MD Work Phone: Start: 12-19-2023 Glucose quantitative blood xcpt reagent strip Charlotte Braswell MD Work Phone: Start: 12-19-2023 Glucose quantitative blood xcpt reagent strip Charlotte Braswell MD Work Phone: Start: 12-19-2023 Glucose quantitative blood xcpt reagent strip Charlotte Braswell MD Work Phone: Start: 12-19-2023 Radiologic exam ches t single view Lucille Soto MD Work Phone: Start: 12-19-2023 End: 12-19-2023 Basic metabolic panel calcium total Lucille Soto MD Work Phone: Start: 12-18-2023 Glucose quantitative blood xcpt reagent strip Charlotte Braswell MD Work Phone: Start: 12-18-2023 Glucose quantitative blood xcpt reagent strip Charlotte Braswell MD Work Phone: Start: 12-18-2023 Glucose quantitative blood xcpt reagent strip Charlotte Braswell MD Work Phone: Start: 12-18-2023 Glucose quantitative blood xcpt reagent strip Charlotte Braswell MD Work Phone: Start: 12-18-2023 Radiologic exam ches t single view Lucille Soto MD Work Phone: Start: 12-18-2023 Basic metabolic pane l calcium total Lucille Soto MD Work Phone: Start: 12-17-2023 Radiologic exam ches t single view Linda Bueno MD Work Phone: Start: 12-17-2023 End: 12-17-2023 Open tx rib fx w/fixj thoracoscopic vis 1-3 ribs Charlotte Braswell MD Work Phone: Start: 3 End: 12-17-2023 Thorsc dx lungs/pericar/med/pleural space w/o bx Charlotte Braswell MD Work Phone: Start: 12-17-2023 Radiologic exam ches t single view Lucille Soto MD Work Phone: Start: 12-17-2023 End: 12-17-2023 Basic metabolic panel calcium total Lucille Soto MD Work Phone: Start: 12-17-2023 Glucose quantitative blood xcpt reagent strip Charlotte Braswell MD Work Phone: Start: 12-16-2023 Glucose quantitative blood xcpt reagent strip Charlotte Braswell MD Work Phone: Start: 12-16-2023 Glucose quantitative blood xcpt reagent strip Charlotte Braswell MD Work Phone: Start: 12-16-2023 Glucose quantitative blood xcpt reagent strip Charlotte Braswell MD Work Phone: Start: 12-16-2023 Glucose quantitative blood xcpt reagent strip Charlotte Braswell MD Work Phone: Start: 12-16-2023 Glucose quantitative blood xcpt reagent strip Charlotte Braswell MD Work Phone: Start: 12-16-2023 Radiologic exam ches t single view Lucille Soto MD Work Phone: Start: 12-16-2023 End: 12-16-2023 Basic metabolic panel calcium total Lucille Soto MD Work Phone: Start: 12-16-2023 POCT GLUCOSE METER UNSOLICITED RESULTS Charlotte Braswell MD Work Phone: Start: 12-15-2023 Blood count hematocrit Natashail Marlo Eugene MD Work Phone: Start: 12-15-2023 Glucose quantitative blood xcpt reagent strip Charlotte Braswell MD Work Phone: Start: 12-15-2023 Glucose quantitative blood xcpt reagent strip Charlotte Braswell MD Work Phone: Start: 12-15-2023 Ct thorax w/contrast material Evan Richardson MD Work Phone: Start: 12-15-2023 Glucose quantitative blood xcpt reagent strip Charlotte Braswell MD Work Phone: Start: 12-15-2023 Glucose quantitative blood xcpt reagent strip Charlotte Braswell MD Work Phone: Start: 12-15-2023 Radiologic exam ches t single view Lucille Soto MD Work Phone: Start: 12-15-2023 End: 12-15-2023 Basic metabolic panel calcium total Lucille Soto MD Work Phone: Start: 12-15-2023 End: 12-15-2023 Glucose quantitative blood xcpt reagent strip Charlotte Braswell MD Work Phone: Start: 12-14-2023 Glucose quantitative blood xcpt reagent strip Charlotte Braswell MD Work Phone: Start: 12-14-2023 End: 12-14-2023 Blood count hematocrit Linda Bueno MD Work Phone: Start: 12-14-2023 Compatibility each u nit antiglobulin Linda Bueno MD Work Phone: Start: 12-14-2023 End: 12-14-2023 TRANSFUSE RED BLOOD CELLS Linda Bueno MD Work Phone: Start: 12-14-2023 End: 12-14-2023 Hemoglobin glycosylated a1c Evan Richardson MD Work Phone: Start: 12-14-2023 Radiologic exam ches t single view Lucille Soto MD Work Phone: Start: 12-14-2023 Basic metabolic pane l calcium total Lucille Soto MD Work Phone: Start: 12-14-2023 Blood count hematocrit Linda Bueno MD Work Phone: Start: 12-13-2023 Glucose quantitative blood xcpt reagent strip Charlotte Braswell MD Work Phone: Start: 12-13-2023 Blood count hematocrit Linda Bueno MD Work Phone: Start: 12-13-2023 Blood typing serologic abo Linda Bueno MD Work Phone: Start: 12-13-2023 Ecg routine ecg w/le ast 12 lds trcg only w/o i&r Birgit Ramsey MD Work Phone: Start: 12-13-2023 Blood count hematocrit Linda Bueno MD Work Phone: Start: 12-13-2023 Glucose quantitative blood xcpt reagent strip Charlotte Braswell MD Work Phone: Start: 12-13-2023 Radiologic exam ches t single view Marybeth Marroquin MD Work Phone: Start: 12-13-2023 Basic metabolic pane l calcium total Lucille Soto MD Work Phone: Start: 12-13-2023 Tube thoracostomy in cludes water seal Marybeth Marroquin MD Work Phone: Start: 12-13-2023 Assay of troponin quantitative Noa BECKFORD Work Phone: Start: 12-12-2023 Ct thorax w/o contra st material Noa BECKFORD Work Phone: Start: 12-12-2023 Comprehensive metabo lic panel Noa BECKFORD Work Phone: Start: 12-12-2023 Ecg routine ecg w/le ast 12 lds trcg only w/o i&r Alexander Ledbetter MD Work Phone: Start: 12-11-2023 Radex ribs uni w/pos teroant ch minimum 3 views Mariah Catalan DO Work Phone: Start: 08-30-2022 Urnls dip stick/tabl et rgnt auto w/o microscopy Laisha Nerissa Hodge DYE MAKER - PROGRAM DEVELOPMENT MANAGER Work Phone: Start: 07-01-2022 Lipid 1996 panel - S katiana or Plasma Laisha Hodge DYE MAKER - PROGRAM DEVELOPMENT MANAGER Work Phone: Start: 08-01-2021 Radiologic examinati on knee 3 views Steven Lorenzo MD Work Phone: Start: 08-01-2021 Assay of lipase Ken Strong MD Work Phone: Start: 08-01-2021 BASIC METABOLIC PANE L W/ REFLEX TO MG FOR LOW K Ken Strong MD Work Phone: Start: 08-01-2021 Hepatic function panel Ken Strong MD Work Phone: Start: 08-01-2021 Ct thorax w/o contra st material Ken Strong MD Work Phone: Start: 01-23-2020 Gluc bld gluc mntr d ev cleared fda spec home use Melo Jen Pfefferle Work Phone: Start: 01-23-2020 Gluc bld gluc mntr d ev cleared fda spec home use Dexter Jen Pfefferle Work Phone: Start: 01-22-2020 Gluc bld gluc mntr d ev cleared fda spec home use Melo Jen Pfefferle Work Phone: Start: 01-22-2020 Gluc bld gluc mntr d ev cleared fda spec home use Dexter Jen Pfefferle Work Phone: Start: 01-22-2020 COVID-19 Jeovany ren Work Phone: Start: 01-22-2020 Gluc bld gluc mntr d ev cleared fda spec home use Melo Li [employer] Work Phone: Start: 01-22-2020 Gluc bld gluc mntr d ev cleared fda spec home use Emlo J [employer] Work Phone: Start: 01-22-2020 Basic metabolic pane l calcium total [employer] Work Phone: Start: 01-22-2020 Blood count hemoglobin [employer] Work Phone: Start: 01-21-2020 Gluc bld gluc mntr d ev cleared fda spec home use Melo J Pfefferle Work Phone: Start: 01-21-2020 OPERATIVE REPORT 3m Sca nning Start: 01-21-2020 Radex hip unilateral with pelvis 1 view Dom Marlo [employer] Work Phone: Start: 01-21-2020 Gluc bld gluc mntr d ev cleared fda spec home use Melo [facility] Work Phone: Start: 01-21-2020 Cul bact xcpt urine blood/stool aerobic isol Melo Li [email or web address] Work Phone: Start: 01-21-2020 Culture bacterial an y source anaerobic iso&id Melo Li [email or web address] Work Phone: Start: 01-21-2020 Cul prsmptv pthgnc o rganism scrn w/colony estimj Melo iL [email or web address] Work Phone: Start: 01-21-2020 Blood count complete automated Melo Li [employer] Work Phone: Start: 01-21-2020 Gluc bld gluc mntr d ev cleared fda spec home use Melo Li [email or web address] Work Phone: Start: 01-21-2020 Blood typing serologic abo Melo Li [email or web address] Work Phone: Start: 12-03-2019 Gluc bld gluc mntr d ev cleared fda spec home use [email or web address] Work Phone: Start: 12-03-2019 Gluc bld gluc mntr d ev cleared fda spec home use [employer] Work Phone: Start: 12-03-2019 End: 12-03-2019 Gluc bld gluc mntr dev cleared fda spec home use [employer] Work Phone: Start: 12-03-2019 BASIC METABOLIC PANE L W/ REFLEX TO MG FOR LOW K Raphael [employer] Work Phone: Start: 12-03-2019 Blood count complete automated Raphael [employer] Work Phone: Start: 12-02-2019 Gluc bld gluc mntr d ev cleared fda spec home use Taranjot Reina Work Phone: Start: 12-02-2019 Gluc bld gluc mntr d ev cleared fda spec home use Taranjot Reina Work Phone: Start: 12-02-2019 Gluc bld gluc mntr d ev cleared fda spec home use [employer] Work Phone: Start: 12-02-2019 Gluc bld gluc mntr d ev cleared fda spec home use Tarankojot Reina Work Phone: Start: 12-02-2019 Gluc bld gluc mntr d ev cleared fda spec home use Roula Kuzmin Work Phone: Start: 12-02-2019 BASIC METABOLIC PANE L W/ REFLEX TO MG FOR LOW K [facility] Work Phone: Start: 12-02-2019 Blood count complete automated [facility] Work Phone: Start: 12-01-2019 Gluc bld gluc mntr d ev cleared fda spec home use Roula Kuzmin Work Phone: Start: 12-01-2019 Gluc bld gluc mntr d ev cleared fda spec home use Ez D Mukundaner Work Phone: Start: 12-01-2019 Gluc bld gluc mntr d ev cleared fda spec home use Roula Kuzmin Work Phone: Start: 12-01-2019 Gluc bld gluc mntr d ev cleared fda spec home use Roula Kuzmin Work Phone: Start: 12-01-2019 BASIC METABOLIC PANE L W/ REFLEX TO MG FOR LOW K [facility] Work Phone: Start: 12-01-2019 Blood count complete automated [facility] Work Phone: Start: 11-30-2019 Gluc bld gluc mntr d ev cleared fda spec home use Roula Kuzmin Work Phone: Start: 11-30-2019 Gluc bld gluc mntr d ev cleared fda spec home use Roula Kuzmin Work Phone: Start: 11-30-2019 Radiologic examinati on femur minimum 2 views [facility] Work Phone: Start: 11-30-2019 Gluc bld gluc mntr d ev cleared fda spec home use Roula Kuzmin Work Phone: Start: 11-30-2019 OPERATIVE REPORT 3m Sca nning Start: 11-30-2019 Gluc bld gluc mntr d ev cleared fda spec home use Roula Kuzmin Work Phone: Start: 11-30-2019 Gluc bld gluc mntr d ev cleared fda spec home use Roula Kuzmin Work Phone: Start: 11-30-2019 Gluc bld gluc mntr d ev cleared fda spec home use Roula Kuzmin Work Phone: Start: 11-30-2019 ADD ON LAB TEST Roula Eleazar zmin Work Phone: Start: 11-30-2019 Assay of magnesium Roula Kuzmin Work Phone: Start: 11-30-2019 Basic metabolic pane l calcium total Roula Kuzmin Work Phone: Start: 11-30-2019 Blood count complete automated [employer] Work Phone: Start: 11-30-2019 Creatine kinase total O lga Eleazarzmin Work Phone: Start: 11-30-2019 Hepatic function panel Roula Kuzmin Work Phone: Start: 11-29-2019 Gluc bld gluc mntr d ev cleared fda spec home use Roula Kuzmin Work Phone: Start: 11-29-2019 Gluc bld gluc mntr d ev cleared fda spec home use Ez Florentino Cano Work Phone: Start: 11-29-2019 Gluc bld gluc mntr d ev cleared fda spec home use Roula Kuzmin Work Phone: Start: 11-29-2019 Blood typing serologic abo Khadar Bolivarmignon Work Phone: Start: 11-29-2019 C (LITTLE) ANTIGEN TYPING Khadar Chua Work Phone: Start: 11-29-2019 E ANTIGEN TYPING Khadar Bolivarmignon Work Phone: Start: 11-29-2019 Gluc bld gluc mntr d ev cleared fda spec home use Roula Kuzmin Work Phone: Start: 11-29-2019 Ecg routine ecg w/le ast 12 lds w/i&r Khadar Chua Work Phone: Start: 11-29-2019 End: 11-29-2019 ADD ON LAB TEST Roula Coleman Work Phone: Start: 11-29-2019 Assay of magnesium Victor Manuel Chener Work Phone: Start: 11-29-2019 Assay of troponin quantitative Mickey Nita Work Phone: Start: 11-29-2019 Blood count complete auto&auto difrntl wbc Mickey Chener Work Phone: Start: 11-29-2019 Comprehensive metabo lic panel Mickey Nita Work Phone: Start: 11-29-2019 Creatine kinase total D graham Chener Work Phone: Start: 11-29-2019 Culture bacterial quanttative colony count urine Mickey Nita Work Phone: Start: 11-29-2019 Hemoglobin glycosylated a1c Mickey Justin Work Phone: Start: 11-29-2019 Natriuretic peptide Gagandeep yasminel Nita Work Phone: Start: 11-29-2019 PROTIME/INR & PTT Yobani Justin Work Phone: Start: 11-29-2019 Urnls dip stick/tabl et rgnt auto w/o microscopy Mickey Justin Work Phone: Start: 11-29-2019 Radiologic examinati on knee 1/2 views Mickey Justin Work Phone: Start: 11-29-2019 Radex hip unilateral with pelvis 2-3 views Mickey Justin Work Phone: Start: 11-29-2019 Radiologic exam ches t single view Mickey Justin Work Phone: Start: 11-29-2019 Ct cervical spine w/ o contrast material Mickey Justin Work Phone: Start: 11-29-2019 Ct head/brain w/o co ntrast material Mickey Justin Work Phone: Plan of Treatment Date Care Activity Detail Author Start: 01-14-2026 Diabetes: Estimated Glomerular Filtration Rate for Kidney [facility] Diabetes: Estimated Glomerular Filtration Rate for Kidney [facility] Start: 11-25-2025 End: 11-25-2025 Patient encounter procedure 11/25/2025 3:00 PM EDT Office Visit [facility] [address] [place] [address] Yifan Dooley, DYE MAKER - PROGRAM DEVELOPMENT MANAGER [address] [place] [address] [facility] Start: 10-22-2025 Diabetes: Estimated Glomerular Filtration Rate for Kidney [facility] Diabetes: Estimated Glomerular Filtration Rate for Kidney [facility] Start: 09-14-2025 End: 09-14-2025 Patient encounter procedure 09/14/2025 3:20 PM EST Office [facility] [address] [facility] [address] [place] [address] Raphael Dill MD [address] [place] [address] [facility] Start: 08-05-2025 End: 08-05-2025 Patient encounter procedure 08/05/2025 1:00 PM EST Office Visit [facility] [address] [place] [address] Agueda Burch, DYE MAKER - PROGRAM DEVELOPMENT MANAGER [address] [phone] [facility] Start: 07-03-2025 Depression Monitoring Depression Monitoring [facility] Start: 07-02-2025 End: 07-02-2025 Patient encounter procedure 07/02/2025 1:00 PM EST Office Visit [facility] [address] [place] [phone] Neno Euceda MD [address] [facility] [address] [place] [address] [facility] Start: 05-26-2025 End: 05-26-2025 Patient encounter procedure 05/26/2025 3:30 PM EDT Office Visit [facility] [address] [place] [phone] Yifan Dooley, DYE MAKER - PROGRAM DEVELOPMENT MANAGER [address] [place] [address] [facility] Start: 05-26-2025 End: 05-26-2026 Basic metabolic 1998 panel - Serum or Plasma Basic metabolic panel Lab Routine Type 2 diabetes mellitus with hyperglycemia, with long-term current use of insulin (HCC) Expected: 05/26/2025 (Approximate), Expires: 05/26/2026 [facility] [employer] Comment on above: Expected: 05/26/2025 (Approximate), Expi res: 05/26/2026 Start: 05-26-2025 End: 05-26-2026 C-peptide C-peptide Lab Routine Type 2 diabetes mellitus with hyperglycemia, with long-term current use of insulin (HCC) Expected: 05/26/2025 (Approximate), Expires: 05/26/2026 [facility] [employer] Work Phone: Comment on above: Expected: 05/26/2025 (Approximate), Expi res: 05/26/2026 Start: 04-27-2025 COVID-19 Vaccine ( season) COVID-19 Vaccine ( season) [facility] Start: 04-27-2025 Influenza vaccination Influenza Vaccine (#1) [facility] Start: 02-20-2025 End: 11-20-2025 Comprehensive metabolic 1998 panel - Serum or Plasma Comprehensive metabolic panel Lab Routine Type 2 diabetes mellitus with hyperglycemia, with long-term current use of insulin (HCC) Expected: 02/20/2025 (Approximate), Expires: 11/20/2025 [facility] [employer] Work Phone: Comment on above: Expected: 02/20/2025 (Approximate), Expi res: 11/20/2025 Start: 02-20-2025 End: 11-20-2025 Hemoglobin A1c measurement Hemoglobin A1c Lab Routine Type 2 diabetes mellitus with hyperglycemia, with long-term current use of insulin (HCC) Expected: 02/20/2025 (Approximate), Expires: 11/20/2025 [facility] Comment on above: Expected: 02/20/2025 (Approximate), Expi res: 11/20/2025 Start: 02-20-2025 End: 11-20-2025 Lipid 1996 panel - Serum or Plasma Lipid panel Lab Routine Hyperlipidemia associated with type 2 diabetes mellitus (HCC) (HCC) Expected: 02/20/2025 (Approximate), Expires: 11/20/2025 [facility] [employer] Comment on above: Expected: 02/20/2025 (Approximate), Expi res: 11/20/2025 Start: 02-20-2025 End: 11-20-2025 Microalbumin/Creatinine panel in random Urine Microalbumin / creatinine urine ratio Lab Routine Type 2 diabetes mellitus with hyperglycemia, with long-term current use of insulin (HCC) Expected: 02/20/2025 (Approximate), Expires: 11/20/2025 [facility] Comment on above: Expected: 02/20/2025 (Approximate), Expi res: 11/20/2025 Start: 02-20-2025 End: 02-20-2025 Patient encounter procedure 02/20/2025 2:00 PM EDT Office Visit [facility] [address] [place] [phone] John Cruz PA-C [address] [place] [address] [facility] Start: 01-21-2025 End: 01-21-2025 Patient encounter procedure [facility] Start: 01-14-2025 End: 01-14-2026 Beta Amyloid 42/40 Ratio, AD-Detect ([facility]) Beta Amyloid 42/40 Ratio, AD-Detect ([facility]) Lab Routine Other symptoms and signs involving cognitive functions and awareness Other amnesia Expected: 01/14/2025 (Approximate), Expires: 01/14/2026 [facility] Work Phone: Comment on above: Expected: 01/14/2025 (Approximate), Expi res: 01/14/2026 Start: 01-14-2025 End: 01-14-2025 Patient encounter procedure 01/14/2025 1:00 PM EDT Appointment [facility] [address] [place] [address] Agueda Burch, DYE MAKER - PROGRAM DEVELOPMENT MANAGER [address] [place] [address] [facility] Start: 12-31-2024 End: 12-31-2024 Patient encounter procedure 12/31/2024 3:00 PM EDT Office Visit [facility] [address] [place] [address] [place] [phone] Agueda Burch, DYE MAKER - PROGRAM DEVELOPMENT MANAGER [address] [address] [facility] Start: 12-31-2024 End: 12-31-2025 Beta Amyloid 42/40 Ratio, AD-Detect ([facility]) Beta Amyloid 42/40 Ratio, AD-Detect ([facility]) Lab Routine Cognitive impairment Memory loss Expected: 12/31/2024 (Approximate), Expires: 12/31/2025 [facility] Work Phone: Comment on above: Expected: 12/31/2024 (Approximate), Expi res: 12/31/2025 Start: 12-31-2024 End: 12-31-2025 MR Brain WO contrast MR brain wo contrast Imaging Routine Cognitive impairment Memory loss Expected: 12/31/2024, Expires: 12/31/2025 [facility] Comment on above: Expected: 12/31/2024, Expires: Start: 12-31-2024 End: 12-31-2025 Phosphorylated [id number]), Plasma Phosphorylated [id number]), Plasma Lab Routine Cognitive impairment Memory loss Expected: 12/31/2024 (Approximate), Expires: 12/31/2025 [facility] Comment on above: Expected: 12/31/2024 (Approximate), Expi res: 12/31/2025 Start: 12-14-2024 Screening for malignant neoplasm of lung Lung Cancer Screening [facility] Start: 11-20-2024 End: 11-20-2024 Patient encounter procedure 11/20/2024 1:00 PM EDT Office Visit [facility] [address] [place] [phone] John Cruz PA-C [address] [place] [address] [facility] Start: 08-27-2024 Medicare Advantage Annual Wellness Visit Medicare Advantage Annual Wellness Visit [facility] Start: 04-27-2024 COVID-19 Vaccine () COVID-19 Vaccine () [facility] Start: 04-27-2024 COVID-19 Vaccine ( season) COVID-19 Vaccine () [facility] Start: 04-27-2024 Influenza vaccination [facility] Start: 04-27-2024 [facility] Start: 08-27-2023 Medicare Advantage Annual Wellness Visit Medicare Advantage Annual Wellness Visit [facility] Start: 08-27-2023 [facility] Start: 07-01-2023 Diabetes: Urine Albumin-Creatinine Ratio for Kidney Health Diabetes: Urine Albumin-Creatinine Ratio for Kidney Health [facility] Start: 07-01-2023 Lipid panel Lipid Panel [facility] Start: 07-01-2023 Urine screening for protein Diabetes: Urine Protein Screening [facility] Start: 04-27-2023 COVID-19 Vaccine () COVID-19 Vaccine () [facility] Start: 04-27-2023 Influenza vaccination Influenza Vaccine (#1) [facility] Start: 04-27-2023 [facility] Start: 10-04-2022 End: 10-04-2022 Patient encounter procedure 10/04/2022 Office Visit Endocrinology Manisha Moss, DYE MAKER - PROGRAM DEVELOPMENT MANAGER [address] [place] [address] Endocrinology [facility] Start: 09-28-2022 Hemoglobin A1c measurement Diabetes: Hemoglobin A1C [facility] Start: 08-30-2022 End: 08-30-2023 Bacteria identified in Urine by Culture Urine culture (clean catch) Microbiology Routine Dysuria Expected: 08/30/2022 (Approximate), Expires: 08/30/2023 [facility] Comment on above: Expected: 08/30/2022 (Approximate), Expi res: 08/30/2023 Start: 08-30-2022 End: 08-30-2023 Urinalysis complete panel - Urine Complete Urinalysis Lab Routine Dysuria Expected: 08/30/2022 (Approximate), Expires: 08/30/2023 [facility] Work Phone: Comment on above: Expected: 08/30/2022 (Approximate), Expi res: 08/30/2023 Start: 2022 RSV Immunization for Adults (1 - 1-dose 75+ series) RSV Immunization for Adults (1 - 1-dose 75+ series) [facility] Start: 08-01-2022 Creatinine measurement Creatinine monitoring [facility] Start: 08-01-2022 Potassium monitoring Potassium monitoring [facility] Start: 08-01-2022 Screening for malignant neoplasm of lung Low dose CT lung screening [facility] Start: 10-04-2021 End: 10-04-2021 Patient encounter procedure 10/04/2021 Office Visit Internal Medicine Grecia Mccabe MD [address] [facility] [address] [place] [address] [facility] Start: 10-04-2021 Hemoglobin A1c measurement A1C test (Diabetic or Prediabetic) [facility] Start: 08-11-2021 COVID-19 Vaccine (4 - Booster for Pfizer series) COVID-19 Vaccine (4 - Booster for Pfizer series) [facility] Start: 08-11-2021 COVID-19 Vaccine (4 - Pfizer series) COVID-19 Vaccine (4 - Pfizer series) [facility] Start: 06-09-2021 Lipid panel Lipid screen [facility] Start: 01-21-2021 Creatinine measurement Creatinine monitoring [place], [place] Start: 01-21-2021 Potassium monitoring Potassium monitoring [place], [place] Start: 12-02-2020 Creatinine monitoring Creatinine monitoring [place] Start: 12-02-2020 Potassium monitoring Potassium monitoring [place] Start: 08-01-2020 Breast cancer screen Breast cancer screen [place] Start: 08-01-2020 Screening for malignant neoplasm of breast Breast cancer screen [facility] Start: 02-28-2020 A1C test (Diabetic or Prediabetic) A1C test (Diabetic or Prediabetic) [place] Start: 02-28-2020 HbA1c (Bld) [Mass fraction] A1C test (Diabetic or Prediabetic) [place] Start: 02-10-2020 End: 02-10-2020 Office Visit 02/10/2020 Office Visit Internal Medicine Grecia Mccabe MD [address] [place] [address] [phone] [facility] Start: 12-23-2019 End: 12-23-2019 Virtual Visit 12/23/2019 Virtual Visit Internal Medicine Grecia Mccabe MD [address] [place] [address] [phone] [facility] Start: 08-21-2019 End: 08-21-2019 Office Visit 08/21/2019 Office Visit Internal Medicine Grecia Mccabe MD [address] [place] [address] [facility] Start: 08-12-2019 A1C test (Diabetic or Prediabetic) A1C test (Diabetic or Prediabetic) [place] Start: 08-06-2019 Creatinine monitoring Creatinine monitoring [place], [place] Start: 08-06-2019 Potassium monitoring Potassium monitoring [place] Start: 02-12-2019 Annual Wellness Visit (AWV) Annual Wellness Visit (AWV) [facility] Start: 02-12-2019 Breast cancer screen Breast cancer screen [place], [place] Start: 01-04-2019 Lipid panel Lipid screen [place] Start: 01-04-2019 Lipid screen Lipid screen [place] Start: 09-06-2018 Diabetic microalbuminuria test Diabetic microalbuminuria test [facility] Start: 2012 DEXA (modify frequency per FRAX score) DEXA (modify frequency per FRAX score) [place] Start: 2007 Hepatitis B Vaccines (1 of 3 - Risk 3-dose series) Hepatitis B Vaccines (1 of 3 - Risk 3-dose series) [facility] Start: 2007 RSV Immunization aged 60 or older (1 - 1-dose 60+ series) RSV Immunization aged 60 or older (1 - 1-dose 60+ series) [facility] Start: 2007 [facility] Start: 2002 DEXA (modify frequency per FRAX score) DEXA (modify frequency per FRAX score) [place] Start: 2002 Screening for osteoporosis DEXA (modify frequency per FRAX score) [facility] Start: 1997 Colon cancer screen colonoscopy Colon cancer screen colonoscopy [place] Start: 1997 Screening for malignant neoplasm of colon Colon cancer screen colonoscopy [place] Start: 1997 Shingles Vaccine (1 of 2) Shingles Vaccine (1 of 2) [facility] Start: 1997 Zoster Vaccines (1 of 2) Zoster Vaccines (1 of 2) [facility] Start: 1997 [facility] Start: 1992 Screening for malignant neoplasm of colon Colon cancer screen colonoscopy [facility] Start: 1966 DTaP/Tdap/Td vaccine (1 - Tdap) DTaP/Tdap/Td vaccine (1 - Tdap) [facility] Start: 1966 DTaP/Tdap/Td Vaccines (1 - Tdap) DTaP/Tdap/Td Vaccines (1 - Tdap) [facility] Start: 1966 Hepatitis A Vaccines (1 of 2 - Risk 2-dose series) Hepatitis A Vaccines (1 of 2 - Risk 2-dose series) [facility] Start: 1966 Zoster Vaccines (1 of 2) Zoster Vaccines (1 of 2) [facility] Start: 1966 [facility] Start: 1965 Hepatitis C screening [facility] Start: 1959 Depression Monitoring Depression Monitoring [facility] Start: 1959 Depresssion Monitoring Depresssion Monitoring [facility] Start: 1959 [facility] Start: 1958 DTaP/Tdap/Td vaccine (1 - Tdap) DTaP/Tdap/Td vaccine (1 - Tdap) [place] Start: 1957 [object Object] Diabetic foot exam [place] Start: 1957 Diabetic foot examination [facility] Start: 1957 Diabetic retinal exam Diabetic retinal exam [facility] Start: 1957 Glaucoma screening Diabetes: Retinopathy Screening [facility] Start: 1957 Preventive dental service Diabetes: Dental Exam [facility] Start: 1948 Hepatitis A Vaccines (1 of 2 - Risk 2-dose series) Hepatitis A Vaccines (1 of 2 - Risk 2-dose series) [facility] Start: 1947 Hepatitis B Vaccines (1 of 3 - 3-dose series) Hepatitis B Vaccines (1 of 3 - 3-dose series) [facility] Start: 1947 Hepatitis C screen Hepatitis C screen [place], [place] Start: 1947 Hepatitis C screening Hepatitis C screen [facility] Start: 1947 Medicare Advantage Annual Wellness Visit (AWV) Medicare Advantage Annual Wellness Visit (AWV) [facility] Start: 1947 Screening for malignant neoplasm of colon [facility] Start: 1947 Screening for osteoporosis [facility] Bacteria identified in Blood by Culture [facility] Work Phone: Bacteria identified in Blood by Culture [facility] Work Phone: Basic Metabolic Pane l w/ Reflex to MG Basic Metabolic Panel w/ Reflex to MG Lab Routine Daily until discontinued starting 12/01/2019, 3 completed [place] Comment on above: Daily until discontinued starting 2019, 3 completed End: 12-03-2019 CBC CBC Lab Routine Daily for 4 Occurrences starting 11/30/2019 until 12/03/2019, 3 completed [facility] [place] Comment on above: Daily for 4 Occurrences starting 020 until 12/03/2019, 3 completed End: 12-02-2019 CBC CBC Lab Routine Tomorrow AM for 2 Occurrences starting 12/01/2019 until 12/02/2019, 1 completed [facility] [place] Comment on above: Tomorrow AM for 2 Occurrences starting 0 12/01/2019 until 12/02/2019, 1 completed CBC CBC Lab Routine 12/02/2019 1:21 AM EDT [facility] [place] Culture, Anaerobic Culture, Anae robic Microbiology Routine 01/21/2020 3:41 PM [facility], Anaerobic a nd Aerobic Culture, Anaerobic and Aerobic Microbiology Routine 01/21/2020 3:40 PM EDT [facility] [place] Culture, Tissue Culture, Tissue Microbiology Routine 01/21/2020 3:41 PM [facility] 12 Lead EKG 12 Lead ECG Routine 12/03/2019 10:58 AM EDT [facility] [place] End: 11-30-2019 FL Greater Than 1 Hour FL Greater Than 1 Hour Imaging Routine Once for 1 Occurrences starting 11/30/2019 until 11/30/2019 [facility] [place] Comment on above: Once for 1 Occurrences starting 11/30/19 20 until 11/30/2019 FL Greater Than 1 Hour [facility] [place] End: 01-21-2020 FL Greater Than 1 Hour FL Greater Than 1 Hour Imaging Routine Once for 1 Occurrences starting 01/21/2020 until 01/21/2020 [facility] [place] Comment on above: Once for 1 Occurrences starting 01/21/20 20 until 01/21/2020 Incentive spirometry Incentive s pirometry Respiratory Care Routine Every 2hr while awake until discontinued starting 01/21/2020 [facility] [place] Comment on above: Every 2hr while awake until discontinued starting 01/21/2020 Initiate Oxygen Ther apy Protocol [facility] [place] Comment on above: Daily until discontinued starting 2019 Daily until disconti nued starting 01/21/2020 OUTSIDE PROCEDURE SCAN OUTSIDE P ROCEDURE SCAN Procedures Ordered: 03/17/2023 [facility] Comment on above: Ordered: 03/17/2023 OUTSIDE PROCEDURE SCAN OUTSIDE P ROCEDURE SCAN Procedures Ordered: 08/11/2023 [facility] Comment on above: Ordered: 08/11/2023 OUTSIDE PROCEDURE SCAN OUTSIDE P ROCEDURE SCAN Procedures Ordered: 01/14/2025 [facility] Comment on above: Ordered: 01/14/2025 POCT glucose [facility] YOLANDA Osorio Comment on above: 4X Daily (AC & HS) until discontinued st arting 11/29/2019 As Needed until disc ontinued starting 11/29/2019 4X Daily (AC & HS) u ntil discontinued starting 01/21/2020 As Needed until disc ontinued starting 01/21/2020 End: 01-21-2020 POCT Glucose POCT Glucose Point of Care Testing Routine One Time for 1 Occurrences starting 01/21/2020 until 01/21/2020 [facility] [place] Comment on above: One Time for 1 Occurrences starting 12/26 until 01/21/2020 PREPARE RBC (CROSSMATCH) PREPARE RBC (CROSSMATCH) Blood Bank Today 01/21/2020 12[facility]35 [facility]: [facility]2019 Screening digital breast tomosynthesis bi Britney Bear Digital Screen Bilateral Imaging Routine Once for 1 Occurrences starting 08/01/2019 until 08/01/2019 [facility] [place] Comment on above: Once for 1 Occurrences starting 08/01/20 19 until 08/01/2019 Screening digital br east tomosynthesis bi Britney Bear Digital Screen Bilateral Imaging Routine 08/01/2019 12:01 PM EST [facility] 01-21-2020 Tissue Homogenization Tissue Homogenization Lab Routine Once for 1 Occurrences starting 01/21/2020 until 01/21/2020 [facility] [place] Comment on above: Once for 1 Occurrences starting 01/21/20 20 until 01/21/2020 Tissue Homogenization Tissue Patrice ogenization Lab Routine 01/21/2020 3:41 PM EDT [facility]: 06-05-2025 US TRAUMA FAST POCUS [facility] Work Phone: Comment on above: Once for 1 Occurrences starting 06/05/20 25 until 06/05/2025 End: 08-11-2023 XR Chest 2 Views [facility] Work Phone: Comment on above: Once for 1 Occurrences starting 08/11/20 until 08/11/2023 End: 03-17-2023 XR Lumbar spine 2 or 3 Views [facility] Work Phone: Comment on above: Once for 1 Occurrences starting 03/17/20 until 03/17/2023 Immunizations Immunization Date Immunization Notes Care Provider [facility] 06-05-2025 Seasonal trivalent influenza vaccine, adjuvanted, preservative free NICOLASA Olivera MD Work Phone: [facility] 05-07-2024 influenza virus vacc ine, unspecified formulation John Cruz PA-C Work Phone: [facility] 06-28-2022 influenza, high dose seasonal, preservative-free Charlotte Berkowitz RN [facility] 06-28-2022 influenza virus vacc ine, unspecified formulation Neno Iqbal MD Work Phone: [facility] 07-04-2021 Influenza, High-dose , Quadv, 65 yrs +, IM (Fluzone) Josh Mercedes MD Work Phone: [facility] 06-16-2021 Pfizer SARS-CoV-2 Vaccination Charlotte Berkowitz RN [facility] 12-02-2020 Pfizer SARS-CoV-2 Vaccination Charlotte Berkowitz RN [facility] 11-12-2020 Pfizer SARS-CoV-2 Vaccination Charlotte Berkowitz RN [facility] 07-21-2019 influenza, high dose seasonal, preservative-free [facility] 07-16-2019 zoster recombinant adjuvanted vaccine (SHINGRIX) 50 MCG/0.5ML SUSR injection [facility] 07-02-2017 influenza, high dose seasonal, preservative-free [facility] 06-06-2017 influenza, high dose seasonal, preservative-free [facility] 08-07-2016 influenza, high dose seasonal, preservative-free [facility] 08-07-2016 pneumococcal polysaccharide vaccine, 23 valent [facility] 08-11-2015 Influenza Vaccine, unspecified formulation [facility] , [place] 08-11-2015 influenza, high dose seasonal, preservative-free [facility] 08-11-2015 influenza, seasonal, injectable Charlotte Berkowitz RN [facility] 08-11-2015 pneumococcal conjuga te vaccine, 13 valent [facility] 07-10-2014 Influenza Vaccine, unspecified formulation [facility] , [place] 07-10-2014 influenza virus vacc ine, unspecified formulation [facility] 07-10-2014 influenza, seasonal, injectable Charlotte Berkowitz RN [facility] 05-21-2013 influenza virus vacc ine, unspecified formulation [facility] [place] 05-21-2013 influenza virus vacc ine, whole virus [facility], [place] 08-01-2012 pneumococcal Conjuga te, unspecified formulation [facility] , [place] 06-27-2012 influenza virus vacc ine, unspecified formulation [facility] , [place] 06-27-2012 influenza virus vacc ine, whole virus [facility] Payers Date Payer Category Payer Self-pay 2014 Medicare [facility] MEDICARE [facility] xxxxxxxxxxxxxxx 2014-Present [address] [address] [place] [address] xxxxxxxxxxxxxxx [id number] 2014 Medicare [id number] 2014 Medicare O [facility]MERLY [facility] MEDICARE ADVANTAGE [id number] 2014 Medicare [id number] Unknown [id number] Unknown [id number] Unknown [id number] Social History Date Type Detail Facility Start: 05-13-2019 Tobacco smoking stat [facility] Light tobacco smoker [place] Start: 08-27-1957 History of tobacco use Cigarette Smo ker [place] Start: 05-13-2019 End: 02-20-2025 Alcohol intake Current drinker of alcohol (finding) [place] Start: 08-06-2018 Tobacco Comment 15 cigarettes per da y [place] Start: 12-13-2017 Alcohol Comment rarely [facility] [place] Start: 1945 Sex Assigned At Not on file [place] Start: 12-01-2019 End: 01-22-2020 Tobacco smoking status [facility] Heavy tobacco sm[place] Start: 12-01-2019 End: 06-28-2025 Cigarettes smoked current (pack per day) - Reported [facility] Exposure to SARS-CoV -2 (event) Unable to assess [place] Start: 12-30-2019 Tobacco Comment 15 cigarettes per day- one pack [place] Start: 1958 End: 06-30-2025 Tobacco smoking status [facility] Smokes tobacco daily [facility] Start: 07-14-2020 End: 06-30-2025 Tobacco use and exposure Smokeless tobacco non-user [facility] Work Phone: Start: 07-04-2021 History SDOH Financial 5 [facility] Work Phone: Start: 07-04-2021 History SDOH Food Worry 1 [facility] Work Phone: Start: 08-20-2022 End: 03-17-2023 Exposure to SARS-CoV-2 (event) Not sure [facility] Start: 08-30-2022 End: 06-28-2025 Tobacco use panel [facility] Within the last year , have you been afraid of your partner or ex-partner? No [facility] How often to you hav e a drink containing alcohol? Never [facility] How many standard drinks containing alcohol do you have on a typical day? [facility] How often to you hav e a drink containing alcohol? Monthly or less [facility] How many standard drinks containing alcohol do you have on a typical day? 1 or 2 [facility] (I/We) worried wheth er (my/our) food would run out before (I/we) got money to buy more. Never true [facility] Start: 03-27-2022 End: 11-28-2024 Sex Female (finding) [facility] Work Phone: Start: 1945 Sex Assigned At Female W [facility] Start: 05-26-2025 End: 06-30-2025 Alcoholic beverage intake Ex-drinker (finding) [facility] History of tobacco use Passive smoker [facility] Start: 06-30-2025 Tobacco Comment 06/30/25 Starte d smoking age 15, smoked 2 ppd. Tapered down to 1 ppd the last 2-3 months. No vape, smokeless tobacco or nicotine pouch use. [facility] Medical Equipment Procedure Code Equipment Code Equipment Origin al Text Equipment Identifier Dates [id number] Start: 03-28-2017 1 each by Does n ot apply route daily [id number] Start: 03-28-2017 1 each by Does n ot apply route daily [id number] Start: 09-25-2019 1 strip by Other route 2 times daily Fill whatever insurance covers [id number] Start: 01-20-2020 1 each by In Vit ro route 5 times daily As needed. [id number] Start: 01-16-2020 1 each by Does n ot apply route 2 times daily [id number] Start: 01-20-2020 [id number] Start: 12-17-2023 [id number] Start: 12-17-2023 [id number] Start: 12-17-2023 Goals Date Patient Goal Desired Activity /State Comment on above: Patient stated she i s going to start monitoring her portions when consuming food Patient stated she is going to use her Silver Sneakers more by changing to [facility] [place] where her friends go to Barriers: lack of motivation, lack of support, overwhelmed by complexity of regimen and stress Plan for overcoming my barriers: working with healthcare team, using the plate method for meal planning and portion control Confidence: 01/03 Anticipated Goal Completion Date: 03/26/2020 Patient given copy of goals Formatting of this n ote might be different from the original. Patient stated she is going to start monitoring her portions when consuming food Patient stated she is going to use her Silver Sneakers more by changing to [facility] [place] where her friends go to Barriers: lack of motivation, lack of support, overwhelmed by complexity of regimen and stress Plan for overcoming my barriers: working with healthcare team, using the plate method for meal planning and portion control Confidence: 01/03 Anticipated Goal Completion Date: 03/26/2020 Patient given copy of goals Functional Status Date Assessment Result Facility 06-05-2025 Total score [AUDIT-C] 0 06/05/20 25 9:13 AM Cristian Sol RN [facility] 12-31-2024 Patient Health Quest ionnaire 2 item (PHQ-2) [Reported] [facility] Clinical Notes 08-01-2021 to 07-01-2025 Jocelyne Garland RN - 07/01/2025 2:09 PM Anthony Garland RN - 07/01/2025 2:09 PM Elena Torres RN - 06/29/2025 4:41 AM RADHA Isaac CNP - 07/01/2025 12:49 PM Harvey Note Date & Type Note Facility 07-01-2025 Nurse Note Discharge instructions printed and placed in packet. IV removed. All belongings packed. Report called to nurse at [facility]. [facility] 07-01-2025 Nurse Note Discharge instructions printed and placed in packet. IV removed. All belongings packed. Report called to nurse at [facility]. During admission interview, pt stated that she does not know what medications she takes, but that her son would. Call placed to son, Charbel, and home medications reviewed with him. Son stated that he normally gives pt all of her medications around 3pm- when he gets off work- including the multiple doses of fast acting insulin, all at once. Instead of twice daily like ordered. Pt and son would benefit from further medication education. documented in this encounter [facility] 07-01-2025 History of Present illness Narrative [facility] Inpatient Consult Service Admission Date:06/28/2025 Admission Status: OBSERVATION Assessment Principal Problem: Urinary tract infection in female Active Problems: H/O: CVA (cerebrovascular accident) Memory impairment Obesity Atrial fibrillation (HCC) Plan Acute encephalopathy - appears to be near baseline at this time - likely secondary to infection (UTI) in setting of baseline dementia, with recent hospitalization/SNF stay- multiple recent transitions of care - CT head without acute findings - recommend delirium order set - continue to assess and treat for pain should agitation present - monitor for urinary retention/constipation- last BM documented 06/30 - promote sleep/wake cycle- agree with scheduled nightly melatonin - Avoid sedating/anticholinergic medications, encourage sleep hygiene, encourage family visits, optimize sensory input and access to assistive devices where indicated, encourage time up in chair as able and D/c Monge, restraints, IV lines, as able Mixed dementia -Known patient to the [place] for [facility]- last [facility] on 12/31/24 with score of 13/30- follow up scheduled on 08/05/25- recommend to keep this appt for repeat cognitive testing/caregiver supports -Continue donepezil. Monitor for bradycardia. -Son reports worsening of "sundowning" type behaviors- monitor while inpatient, if difficulty with sleep- may consider addition of medication if needed-- no reported issues overnight per nursing -Continue supportive care. Declining functional status - in setting of recent hospitalization, progression of dementia - Family is currently assisting with ADLs and IADLs in home - Dietitian consult - continue PT/OT as able while inpatient - PT recommending SNF- plan for discharge to [facility] later today Follow-up: Geriatrics will sign off at this time, please page for questions. Thank you for the consult. Subjective: Chief Complaint: altered mental status Geriatrics consulted for encephalopathy, dementia HPI- patient is known to me 79 y.o. year-old female with past medical history of atrial fibrillation, mixed dementia, history of CVA, type 2 diabetes mellitus, depression presented from home for confusion. Per review of chart, recent admission 06/05-06/09 after being found down for unknown amount of time. Found to have UTI, per EMS pt had family visiting the home who called for change in mental status. Seen by inpt geriatric consult during her last recent admission. Also, known patient to [facility]- follows with Agueda Burch NP Interval history: remains on 6W No reported overnight events Patient reports that she is doing well today, thinks that she slept overnight, denies pain, she knows that the plan is for [facility] later today and knows that she is currently at [facility]. Therapy recommendations: Seen by PT-ambulated 42ft min assist with FWW- recommending SNF Review of Systems Constitutional: Negative for activity change and appetite change. Respiratory: Negative for cough and shortness of breath. Cardiovascular: Negative for chest pain. Gastrointestinal: Negative for abdominal pain and nausea. Musculoskeletal: Positive for gait problem. Negative for arthralgias. Neurological: Negative for dizziness and headaches. Psychiatric/Behavioral: Positive for confusion. Negative for sleep disturbance. Objective: BP 117/77 (BP Location: Left arm, Patient Position: Sitting) Pulse 59 Temp 36.5 C (97.7 F) (Temporal) Resp 18 Ht 5' 6" (1.676 m) Wt 174 lb 6.1 oz (79.1 kg) SpO2 97% BMI 28.15 kg/m Intake/Output Summary (Last 24 hours) at 07/01/2025 1249 Last data filed at 07/01/2025 0954 Gross per 24 hour Intake 1280 ml Output 650 ml Net 630 ml Wt Readings from Last 4 Encounters: 06/28/25 174 lb 6.1 oz (79.1 kg) 06/05/25 176 lb 12.9 oz (80.2 kg) 05/26/25 183 lb (83 kg) 02/20/25 161 lb (73 kg) Current Medications[1] Physical Exam Constitutional: General: She is not in acute distress. Comments: Sitting up in bed, alert and cooperative with exam HENT: Mouth/Throat: Mouth: Mucous membranes are moist. Pharynx: Oropharynx is clear. Eyes: General: Right eye: No discharge. Left eye: No discharge. Conjunctiva/sclera: Conjunctivae normal. Cardiovascular: Rate and Rhythm: Normal rate. Pulmonary: Effort: Pulmonary effort is normal. No respiratory distress. Breath sounds: No wheezing or rales. Abdominal: General: Bowel sounds are normal. There is no distension. Palpations: Abdomen is soft. Tenderness: There is no abdominal tenderness. There is no guarding. Musculoskeletal: Right lower leg: No edema. Left lower leg: No edema. Neurological: Mental Status: She is alert. She is disoriented. Comments: Alert and oriented to self and place, not date Psychiatric: Attention and Perception: Attention normal. Mood and Affect: Mood normal. Behavior: Behavior normal. Cognition and Memory: She exhibits impaired recent memory. Labs and Imaging: Recent Results (from the past 24 hours) POCT glucose meter Collection Time: 06/30/25 4:42 PM Result Value Ref Range Glucose 169 (H) 70 - 100 mg/dL POCT glucose meter Collection Time: 06/30/25 8:04 PM Result Value Ref Range Glucose 109 (H) 70 - 100 mg/dL Basic metabolic panel Collection Time: 07/01/25 2:38 AM Result Value Ref Range SODIUM 138 136 - 145 mmol/L POTASSIUM 4.0 3.5 - 5.1 mmol/L CHLORIDE 106 98 - 107 mmol/L CARBON DIOXIDE 24 23 - 31 mmol/L UREA NITROGEN 15 9 - 23 mg/dL CREATININE 0.71 0.58 - 1.12 mg/dL GLUCOSE 124 (H) 82 - 115 mg/dL CALCIUM 9.5 8.8 - 10.0 mg/dL ANION GAP 8 3 - 13 mmol/L eGFR 87.7 >60.0 mL/min/1.73m*2 CBC Collection Time: 07/01/25 2:38 AM Result Value Ref Range Auto WBC 8.5 3.6 - 10.7 10*3/uL RBC 4.19 3.80 - 5.20 10*6/uL Hemoglobin 12.3 11.7 - 16.0 g/dL Hematocrit 36.9 35.0 - 47.0 % MCV 88.1 77.0 - 99.0 fL MCH 29.4 26.0 - 34.0 pg MCHC 33.3 30.5 - 36.0 % RDW 12.8 11.5 - 15.0 % Platelets 214 140 - 440 10*3/uL MPV 9.7 9.0 - 12.7 fL POCT glucose meter Collection Time: 07/01/25 7:27 AM Result Value Ref Range Glucose 140 (H) 70 - 100 mg/dL POCT glucose meter Collection Time: 07/01/25 12:02 PM Result Value Ref Range Glucose 117 (H) 70 - 100 mg/dL Lab Results Component Value Date TSH 2.07 10/21/2024 No components found for: "B12" Lab Results Component Value Date VITD25 35 06/06/2025 Reviewed: active problem list, medication list, allergies, notes from last encounter, lab results [1] Current Facility-Administered Medications: acetaminophen (Tylenol) tablet 650 mg, 650 mg, Oral, q6h PRN OR acetaminophen (Tylenol) suppository 650 mg, 650 mg, Rectal, q6h PRN, Darrin Iniguez MD ascorbic acid (Vitamin C) tablet 1,000 mg, 1,000 mg, Oral, Daily, Darrin Iniguez MD, 1,000 mg at 07/01/25 0810 cholecalciferol (Vitamin D-3) tablet 5,000 Units, 5,000 Units, Oral, Daily, Darrin Iniguez MD, 5,000 Units at 07/01/25 0810 cyanocobalamin (Vitamin B-12) tablet 1,000 mcg, 1,000 mcg, Oral, Daily, Darrin Iniguez MD, 1,000 mcg at 07/01/25 0811 dextrose 5 % infusion, 100 mL/hr, IntraVENous, PRN, Darrin Iniguez MD dextrose 50 % solution 12.5 g, 12.5 g, IntraVENous, PRN, Darrin Iniguez MD donepezil (Aricept) tablet 10 mg, 10 mg, Oral, Daily, Darrin Iniguez MD, 10 mg at 07/01/25 0810 glucagon (human recombinant) injection 1 mg, 1 mg, IntraMUSCular, PRN, Darrin Iniguez MD glucose oral gel 15 g, 15 g, Oral, PRN, Darrin Iniguez MD insulin glargine (Lantus) injection 20 Units, 20 Units, SubCUTAneous, q AM, Darrin Iniguez MD, 20 Units at 07/01/25 0811 Insulin Lispro (Humalog) injection 0-12 Units, 0-12 Units, SubCUTAneous, TID WC, 2 Units at 06/30/25 1747 AND Insulin Lispro (Humalog) injection 0-12 Units, 0-12 Units, SubCUTAneous, Nightly, Darrin Iniguez MD Insulin Lispro (Humalog) injection 8 Units, 8 Units, SubCUTAneous, BID AC, Darrin Iniguez MD, 8 Units at 07/01/25 0811 magnesium oxide (Mag-Ox) tablet 400 mg, 400 mg, Oral, BID, Darrin Iniguez MD, 400 mg at 07/01/25810 melatonin tablet 5 mg, 5 mg, Oral, Nightly, Darrin Iniguez MD, 5 mg at 06/30/252003 nitrofurantoin (macrocrystal-monohydrate) (Macrobid) capsule 100 mg, 100 mg, Oral, 2 times per day, Cele Ledbetter NP, 100 mg at 07/01/25 0953 ondansetron ODT (Zofran-ODT) disintegrating tablet 4 mg, 4 mg, Oral, q8h PRN OR ondansetron (Zofran) injection 4 mg, 4 mg, IntraVENous, q6h PRN, Darrin Iniguez MD, 4 mg at 06/29/25 0228 polyethylene glycol (PEG) 3350 (Miralax) packet 17 g, 17 g, Oral, Daily PRN, Darrin Iniguez MD, 17 g at 06/29/252009 pravastatin (Pravachol) tablet 80 mg, 80 mg, Oral, Nightly, Darrin Iniguez MD, 80 mg at 06/30/252003 rivaroxaban (Xarelto) tablet 20 mg, 20 mg, Oral, Daily with breakfast, Darrin Iniguez MD, 20 mg at 07/01/25 0810 traZODone (Desyrel) tablet 50 mg, 50 mg, Oral, Nightly PRN, Darrin Iniguez MD, 50 mg at 06/30/252003 venlafaxine XR (Effexor XR) 24 hr capsule 150 mg, 150 mg, Oral, Daily with breakfast, Darrin Iniguez MD, 150 mg at 07/01/25 0811 Nutrition rescreen completed. Chart reviewed. Patient to be monitored and followed by the diet microbiology quality control technician. [place] Images from the original note were not included. [facility] Smoking Cessation Progress Note Smoking Cessation Intervention Session type: initial Session length: 20 minutes Smoking History: Started smoking age 15, smoked 2 ppd. Tapered down to 1 ppd the last 2-3 months. No vape, smokeless tobacco or nicotine pouch use. Pack Years: 129.6 How important is it to the patient to quit? (0-not important, 10-extremely important): 0 How confident is the patient that they can quit? (0-not confident, 10-extremely confident): 0 Stage of Change: Pre-contemplation Fagerstrom Test for Nicotine Dependence Score: 5 Reasons to quit smoking identified: [x]Yes []No Triggers for smoking identified: [x]Yes []No Quit strategies for smoking identified: [x]Yes []No Nicotine withdrawal symptoms reviewed: [x]Yes []No Smoking urge distractions discussed: [x]Yes []No Request for nicotine withdrawal medication: []Yes [x]No If yes, provider notified: []Yes []No Ready to choose a quit date in the next 30 days: []Yes [x]No Additional Comments: Met with patient at bedside. She is pleasant and willing to discuss her smoking history and cessation with me. Smoking cessation education with contact information explained and given to patient. Patient lives alone and smokes in the house. States she does enjoy smoking. Offered praise for tapering down use over the last few months. Discussed NRT options, OP program and possible Rx cessation medication. No NRT this admission. Hospitalist Progress Note 06/30/2025 Subjective: Admit Date: 06/28/2025 PCP: NENO IQBAL MD Room#: [id number] A BRIEF HOSPITAL COURSE: Beverly is a 79 y.o. female with a PMH of atrial fibrillation, arthritis, breast cancer s/p lumpectomy, radiation and chemotherapy (2012), depression, HLD, HTN, mixed alzheimer's and vascular dementia, T2DM that presented to the ED on 06/28/25 for altered mental status. Per review of chart, pt had recent admission 06/05-06/09/25 after being found down on floor for unknown period of time. Pt was treated for UTI. Family was visiting pt and concerned that she had AMS and called EMS. In the ED, pt was afebrile, CMP showed glucose 164, Ca 10.1 otherwise unremarkable, negative troponin x 2, lactic acid 1.3, CBC unremarkable, blood cultures penidng, UA turbid, + WBC, bacteria, RBC, nitrites, LE. Urine culture pending, Chest xray showed no acute process, CT head no acute process, CT A/P showed Diffuse bladder wall thickening. Administered IV Cefepime and admitted to medicine for further evaluation and mgt. Urine culture growing 10-50,000 enterococcus faecalis and 10-50,000 e coli. Interval History: Pt seen sitting in chair at side of bed, less anxious today. Reports her lower abdominal discomfort is improving. Discussed PT recommendations for SNF on discharge and pt in agreement with plan. No overnight issues. Case and plan discussed with patient and bedside nurse. All questions answered. Adult diet Regular 24HR INTAKE/OUTPUT: Intake/Output Summary (Last 24 hours) at 06/30/2025 0934 Last data filed at 06/29/2025 1735 Gross per 24 hour Intake -- Output 500 ml Net -500 ml Past Medical History: Medical History[1] LABS: CBC: Recent Labs 06/28/25 1452 06/29/25 0402 06/30/25 0020 WBC 10.1 8.7 8.5 RBC 4.70 4.09 3.98 HGB 13.8 12.0 11.7 HCT 41.9 36.7 35.2 MCV 89.1 89.7 88.4 RDW 13.0 12.9 12.8 PLT 232 218 219 BMP: Recent Labs 06/28/25 1452 06/29/25 0402 06/30/25 0020 NA 138 137 137 K 4.6 4.1 4.0 CL 104 111* 107 CO2 24 21* 23 BUN 12 12 14 CREATININE 0.93 0.79 0.77 GLUCOSE 164* 154* 150* CALCIUM 10.1* 9.3 9.4 ANIONGAP 10 5 7 LIVER PROFILE: Recent Labs 06/28/25 1452 AST 15 ALT <6 BILITOT 0.5 ALKPHOS 59 PROT 7.0 PT/INR: No results for input(s): "PROTIME", "INR" in the last 72 hours. CARDIAC ENZYMES: No results for input(s): "TROPONINI" in the last 72 hours. Procalcitonin: No results found for: "PROCAL" COVID-19 PCR: No results for input(s): "COVID19" in the last 72 hours. Objective: Vitals: BP 133/58 (BP Location: Right arm, Patient Position: Lying) Pulse 55 Temp 36.4 C (97.5 F) (Temporal) Resp 16 Ht 5' 6" (1.676 m) Wt 174 lb 6.1 oz (79.1 kg) SpO2 97% BMI 28.15 kg/m Pulse Ox: SpO2 Av.7 % Min: 93 % Max: 97 % Supplemental O2: Physical Exam Constitutional: General: She is not in acute distress. Cardiovascular: Rate and Rhythm: Regular rhythm. Bradycardia present. Pulmonary: Effort: Pulmonary effort is normal. Breath sounds: Normal breath sounds. Abdominal: General: Bowel sounds are normal. Palpations: Abdomen is soft. Tenderness: There is abdominal tenderness in the suprapubic area. Skin: General: Skin is warm. Neurological: Mental Status: She is alert. Medications: Scheduled PRN Scheduled Meds[2] PRN Meds[3] Continuous Continuous Meds[4] Assessment/Plan: Data: (CAT1) Reviewed 1 notes from different specialty or health system (each=1). (CAT1) Reviewed 2 labs/studies ordered by another provider not previously counted (each=1, panels count as 1). (LOW: 2x CAT1 or independent historian MOD: 3x CAT1 or 1x CAT3 EXTENSIVE: 3x CAT1 and 1x CAT3) Acute, acute on chronic, unstable/uncontrolled chronic problems/diagnoses: Acute encephalopathy - improving 2. Hx of Dementia - CT brain no acute process - continue aricept - likely in the setting of acute infection - geriatrics consult 3. UTI - culture growing e coli and enterococcus faecalis - continue IV rocephin 4. T2DM with hyperglycemia - Accuchecks AC/HS - lantus 20 units daily - SSI with meals/bedtime - hypoglycemia protocol 4. At risk for delirium - geriatrics on consult - melatonin at bedtime - fall precautions Stable chronic problems affecting care, new non-acute diagnoses: Atrial fibrillation - on Xarelto 2. Arthritis 3. Breast cancer s/p lumpectomy, radiation and chemotherapy (2012) 4. Depression - on venlafaxine 5. HLD - on pravastatin 6. HTN - am labs, replace lytes prn - PT/OT/CM/SW - delirium precautions: increase activity and limit nighttime disturbances - DVT prophylaxis: encourage ambulation and already anticoagulated Advance Directive: DNR-CCA Anticipated Discharge - Date - 07/01/25 - Location - Skilled Facility - Pending the following - auth Total time spent (which include face to face and non face to face encounters) : 40 minutes Extended Emergency Contact Information Primary Emergency Contact: Charbel Agee (POA) [address]: [address] [place] [id number] [place] [address] Mobile Relation: Child Pasteuriser Operator needed? No Secondary Emergency Contact: Marbin Agee [facility] Mobile Relation: Son Pasteuriser Operator needed? 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 right temporal /occiptial/ and hypocapal Depression History of blood transfusion Hyperlipidemia Hypertension Mixed Alzheimer's and vascular dementia (CMS/HCC) 01/21/2025 Type 2 diabetes mellitus (HCC) Type II or unspecified type diabetes mellitus without mention of complication, not stated as uncontrolled (HCC) [2] ascorbic acid, 1,000 mg, Oral, Daily cefTRIAXone, 1,000 mg, IntraVENous, q24h cholecalciferol, 5,000 Units, Oral, Daily cyanocobalamin, 1,000 mcg, Oral, Daily donepezil, 10 mg, Oral, Daily insulin glargine, 20 Units, SubCUTAneous, q AM insulin lispro, 0-12 Units, SubCUTAneous, TID WC And insulin lispro, 0-12 Units, SubCUTAneous, Nightly Insulin Lispro, 8 Units, SubCUTAneous, BID AC magnesium oxide, 400 mg, Oral, BID melatonin, 5 mg, Oral, Nightly pravastatin, 80 mg, Oral, Nightly rivaroxaban, 20 mg, Oral, Daily with breakfast venlafaxine XR, 150 mg, Oral, Daily with breakfast [3] PRN medications: acetaminophen OR acetaminophen, dextrose, dextrose, glucagon (rDNA), glucose, ondansetron ODT OR ondansetron, polyethylene glycol (PEG) 3350, traZODone [4] Images from the original note were not included. OCCUPATIONAL THERAPY [facility] Initial Evaluation Name/MRN: Beverly Agee ([id number]) Evaluation Date: 06/30/2025 Date of : 1945 Admission Date: 06/28/2025 2:42 PM Age: 79 y.o. Room[facility]Bed: [facility] A Discharge Recommendation: [facility] Facility Assessment IMPRESSION: Pt presented to the ED with AMS, Hx of dementia and a-fib, recent admission on 06/05 due to a fall. Pt Ox3, difficulty with recalling recent and past events. Pt lives alone, sons live nearby who assist w/ homemaking responsibilities. Pt is IND at baseline with ADLs and uses a FWW for mobility in the home and manual WC in community per pt. Pt currently requiring SBA with increased effort and cues for technique for bed mobility, and Min A for sit to stand. CGA with cues for bedside chair transfer. Pt currently limited by cognitive deficits and and decreased mobility, pt is unsafe to go home alone at this time. Recommending SNF level therapies at discharge to increase safety and occupational performance. Admitting Diagnosis: AMS, UTI Performance Deficits /Impairments: Decreased Functional Mobility, Decreased ADL status, Decreased Strength, Decreased Safety Awareness, Decreased Endurance, and Decreased High Level IADLs Prognosis: Good and Fair Decision Making: Medium Complexity Subjective Pt unable to recall how she fell recently when asked about what happened Pain: Pt denies any current pain. Past Medical History: Medical History[1] Past Surgical History: Surgical History[2] Admission Diagnosis: Patient Active Problem List Diagnosis Date Noted Urinary tract infection in female 06/28/2025 Moderate malnutrition (CMS/HCC) ([facility]) 06/06/2025 Fall, initial encounter 06/05/2025 Hypoglycemia 10/18/2024 Complicated UTI (urinary tract infection) 01/11/2024 Closed fracture of multiple ribs of right side, initial encounter 12/12/2023 Weakness 10/03/2022 Hyperglycemia 10/03/2022 Noncompliance with treatment regimen 06/30/2022 UTI (urinary tract infection) 11/29/2019 Closed fracture of one rib of left side 08/01/2021 Hemothorax 08/01/2021 Anticoagulated 08/01/2021 Mood disorder 11/13/2020 Hip fracture requiring operative repair, right, closed, initial encounter ([facility]) 01/21/2020 E-coli UTI 12/01/2019 H/O: CVA (cerebrovascular accident) 11/29/2019 Tobacco dependence syndrome 11/29/2019 Memory impairment 11/29/2019 Fall 11/29/2019 Leukocytosis 11/29/2019 Closed fracture of hip ([facility]) 11/29/2019 Unsteady gait 11/29/2019 Type 2 diabetes mellitus with hyperglycemia, with long-term current use of insulin ([facility]) 11/29/2019 Acute cystitis 11/29/2019 Obesity 11/29/2019 Atrial fibrillation ([facility]) 11/29/2019 Hypomagnesemia 02/18/2019 History of radial keratotomy 01/31/2017 Examination of participant in clinical trial 02/03/2016 Malignant neoplasm of upper-outer quadrant of female breast (HCC) 02/03/2016 Psychophysiological insomnia 05/06/2015 Essential hypertension 05/06/2015 Mixed anxiety depressive disorder 05/06/2015 Hyperlipidemia 05/06/2015 Medical Precautions: No active isolations Proper PPE donned/doffed in accordance with facility standards. Fall Risk: Loyd Fall Risk Score: 100 (High Risk) Precautions/Restrictions: Lines/Drains/Airways: purewick Fall Precautions Family/Caregiver Present: none Overall Cognitive Status: Exceptions - Following commands: follows one step commands consistently - Memory: decreased recall of recent events - Safety judgement: decreased awareness of need for safety - Insights: decreased awareness of deficits - Sequencing: requires cues for some Overall Orientation Status: Ox3 Social/Functional History Patient admitted from home. Lives With: Alone Type of Home: single family home Home Layout: Single Level Home Home Access: Stairs to Enter with Rails (# of stairs: 3) w/ rail Bathroom Shower/Tub: walk-in w/ shower chair Toilet: Standard Home Equipment: front wheeled walker, cane, manual WC (uses in community) Homemaking Responsibilities: Needs Assist Receives Help From: Family and Neighbor - sons come over and assist with laundry, cooking, cleaning, transportation Active Optomechanical Engineer: No Prior Level of Function Prior Level of ADL Function: Independent Prior Level of Mobility: Independent; Device: Front wheeled walker Prior Level of Transfers: Independent Objective ADLs LE Dressing: SBA, doff/donned B socks seated EOB with cues for technique Upper Extremity Assessment AROM: WFL Strength: WFL Bed Mobility Supine to sit: Contact Guard, x2 attempts w/ HOB slightly elevated - difficulty sitting up 1st time without use of bed rails, Verbal and manual cues provided for use of bedrails with B Ue's, Pt able to complete HOB Elevated Use of bed rail(s) Transfers/Mobility Sit to stand: Min Assist, w/ FWW, cues for technique Stand to sit: Contact Guard, cues for technique Bed to chair: Contact Guard, cues for safe technique w/ hand placement and alignment to chair Functional mobility: Contact Guard Few steps to bedside chair, cues for turning with FWW Device(s) used: Front wheeled walker Tone: Normal Tone Sensation: Normal Sensation Vision: wears glasses for reading and and are NOT being used during the eval AM-PAC AM-PAC Inpatient Daily Activity Raw Score: 20 ADL Inpatient CMS G-Code Modifier: CJ Plan Pt would benefit from skilled acute OT services to address Strengthening, Gait Training, Balance Training, Self-Care/ADL Training, Functional Mobility Training, Endurance Training, Safety Education and Training, Pain Management, and Cognitive Reorientation. Frequency: 3x/weekfor 4 weeks Barriers: Limited safety awareness, Decreased endurance, Confusion, Cognitive deficit, and Limited insight into deficits Safety/Education Safety Safety Devices in place: All fall risk precautions in place, call light within reach, and left in chair Restraints: No Education Education Given To: patient Education Provided: OT Role, Plan of Care, Fall Prevention Education, Discharge Recommendations, and Benefits of Increasing Activity Education Method: Verbal Barriers to Learning: Cognition Education Outcome: Verbalized Understanding Goals Patient Stated Goal: to get better Encounter Problems Encounter Problems (Active) Bathing Patient will bathe body independently after setup Start: 06/30/25 Expected End: 08/04/25 Dressings Lower Extremities Patient will dress lower body independently Start: 06/30/25 Expected End: 08/04/25 Grooming Patient will complete daily grooming tasks independently at sink Start: 06/30/25 Expected End: 08/04/25 Mobility Patient will demonstrate functional ambulation with least restrictive device Ind Start: 06/30/25 Expected End: 08/04/25 Toileting Patient will complete toileting tasks at standard toilet with modified independence. Start: 06/30/25 Expected End: 08/04/25 Transfers Patient will complete functional transfer with least restrictive device with independence in order to prepare for ambulation. Start: 06/30/25 Expected End: 08/04/25 Patient will perform bed mobility with independence and minimal Vc's for technique in order to improve independence and prepare for out of bed mobility. Start: 06/30/25 Expected End: 08/04/25 Therapy Time Individual Co-Treatment Co-Evaluation Time In 0855 Time Out 0920 Minutes 25 Timed Code Treatment Minutes: 25 Minutes Lou Hodges OT Patient's Occupational Therapy Plan of Care supervision is transferred to a [facility] Therapy Services Occupational Therapist. Goals and/or treatment plan was established in collaboration with patient/family/other representatives. 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 right temporal /occiptial/ and hypocapal Depression History of blood transfusion Hyperlipidemia Hypertension Mixed Alzheimer's and vascular dementia (CMS/HCC) 01/21/2025 Type 2 diabetes mellitus (HCC) Type II or unspecified type diabetes mellitus without mention of complication, not stated as uncontrolled (HCC) [2] Past Surgical History: Procedure Laterality Date BREAST LUMPECTOMY Left BREAST LUMPECTOMY Left 2012 s/p radiation as well CATARACT EXTRACTION W/ INTRAOCULAR LENS IMPLANT Bilateral 10/2015, 12/2015 SECTION (HISTORICAL) SECTION, LOW TRANSVERSE [id number] CHOLECYSTECTOMY DILATION AND CURETTAGE OF UTERUS FEMUR FRACTURE SURGERY Right 11/30/2019 HIP ARTHROPLASTY Right 01/21/2020 conversion JOINT REPLACEMENT Bilateral ROTATOR CUFF REPAIR Right TOTAL ABDOMINAL HYSTERECTOMY Images from the original note were not included. PHYSICAL THERAPY [facility] Initial Evaluation Name/MRN: Beverly Agee ([id number]) Evaluation Date: 06/29/2025 Date of : 1945 Admission Date: 06/28/2025 2:42 PM Age: 79 y.o. Room[facility]Bed: [facility] A Discharge Recommendation: [facility] Facility Other: tbd Assessment IMPRESSION: Pt admitted due to recent fall. Pt with impaired mobility, decreased balance and reduced functional independence. Currently pt requires min assist with bed mobility, transfers and gait. Expressed fear of falling. She is unsafe to return home alone due to high risk of falling. Given the patient's current functional limitations, recommend SNF to facilitate safe return to prior level of function and to prevent further decline or injury. Admitting Diagnosis: Altered Mental Status, UTI, Fall Prognosis: fair Performance Deficits /Impairments: Decreased Functional Mobility, Decreased ADL status, Decreased Strength, Decreased Endurance, and Decreased Balance Decision Making: Low Complexity Subjective Pt in bed. Agree with PT treatment. RN cleared for PT. Pain: Pt denies any current pain. Past Medical History: Medical History[1] Past Surgical History: Surgical History[2] Admission Diagnosis: Patient Active Problem List Diagnosis Date Noted Urinary tract infection in female 06/28/2025 Moderate malnutrition ([facility]/HCC) ([facility]) 06/06/2025 Fall, initial encounter 06/05/2025 Hypoglycemia 10/18/2024 Complicated UTI (urinary tract infection) 01/11/2024 Closed fracture of multiple ribs of right side, initial encounter 12/12/2023 Weakness 10/03/2022 Hyperglycemia 10/03/2022 Noncompliance with treatment regimen 06/30/2022 UTI (urinary tract infection) 11/29/2019 Closed fracture of one rib of left side 08/01/2021 Hemothorax 08/01/2021 Anticoagulated 08/01/2021 Mood disorder 11/13/2020 Hip fracture requiring operative repair, right, closed, initial encounter ([facility]) 01/21/2020 E-coli UTI 12/01/2019 H/O: CVA (cerebrovascular accident) 11/29/2019 Tobacco dependence syndrome 11/29/2019 Memory impairment 11/29/2019 Fall 11/29/2019 Leukocytosis 11/29/2019 Closed fracture of hip ([facility]) 11/29/2019 Unsteady gait 11/29/2019 Type 2 diabetes mellitus with hyperglycemia, with long-term current use of insulin ([facility]) 11/29/2019 Acute cystitis 11/29/2019 Obesity 11/29/2019 Atrial fibrillation ([facility]) 11/29/2019 Hypomagnesemia 02/18/2019 History of radial keratotomy 01/31/2017 Examination of participant in clinical trial 02/03/2016 Malignant neoplasm of upper-outer quadrant of female breast ([facility]) 02/03/2016 Psychophysiological insomnia 05/06/2015 Essential hypertension 05/06/2015 Mixed anxiety depressive disorder 05/06/2015 Hyperlipidemia 05/06/2015 Medical Precautions: No active isolations Proper PPE donned/doffed in accordance with facility standards. Fall Risk: Loyd Fall Risk Score: 100 (High Risk) Precautions/Restrictions: N/A Family/Caregiver Present: none Overall Cognitive Status: Exceptions - Problem solving: assistance required to generate solutions and assistance required to implement solutions - Initiation: requires cues for some - Sequencing: requires cues for some Overall Orientation Status: Oriented to Place and Oriented to Person Vision: Not Assessed Hearing: normal Social/Functional History Patient admitted from home. Lives With: Alone Type of Home: single family home Home Layout: Single Level Home Home Access: Stairs to Enter with Rails (# of stairs: 3) Bathroom Shower/Tub: Toilet: Standard Home Equipment: front wheeled walker Homemaking Responsibilities: Needs Assist Receives Help From: Family and Neighbor Active Optomechanical Engineer: No Prior Level of Function Prior Level of ADL Function: Independent Prior Level of Mobility: Independent; Device: Front wheeled walker Prior Level of Transfers: Independent Objective Lower Extremity Assessment AROM: WFL PROM: WFL Strength: Lower Extremity Strength Right Left Hip Flexion 4 4 Hip Abduction Hip Extension Hip External Rotation (ER) Hip Internal Rotation (IR) Knee Extension 4+ 4+ Knee Flexion Ankle Dorsiflexion (DF) Ankle Plantarflexion (PF) 3+ 3+ Inversion Eversion Sensation: WFL Balance: Balance During Session: Posture: fair Sitting - Static: SBA Sitting - Dynamic: SBA Standing - Static: Min Assist Standing - Dynamic: Min Assist Bed Mobility: Supine to sit: Min Assist Scooting: Min Assist Transfers Sit to stand: Min Assist Stand to sit: Min Assist Stand pivot: Min Assist Ambulation Ambulation 1 Assistive device(s) used: Front wheeled walker Assist level: Min Assist Distance (ft): 40 Quality of gait: step to pattern, shuffling, slow savanna, postural sway, path deviations, instability through all phases, fear of falling Ambulation 2 Assistive device(s) used: Front wheeled walker Assist level: Min Assist Distance (ft): 42 Quality of gait: step to pattern, shuffling, uneven step length, slow savanna, postural sway, path deviations, instability through all phases, fear of falling Sit to stand from EOB, from chair, toilet transfer-min assist. Needed re-assurance due to pt expressed fear of falling. Standing with fww, weight shifting for pre-gait. Outcome Measures AM-PAC How much HELP from another person do you currently need Turning from your back to your side while in a flat bed without using bedrails?: A Little Moving from lying on your back to sitting on the side of a flat bed without using bedrails?: A Little Moving to and from a bed to a chair (including a wheelchair)?: A Little Standing up from a chair using your arms (wheelchair or bedside chair)?: A Little Walking in a hospital room?: A Little Stair climbing assessed?: No AM-PAC Inpatient Mobility Raw Score (No Stairs) : 15 JH-HLM JH-HLM Scale: Walked 25 ft or more (i.e. walked outside of room) Plan Pt would benefit from skilled acute PT services to address Strengthening, Gait Training, Balance Training, and Functional Mobility Training. Frequency: 2x/weekfor 4 weeks Barriers: Impaired balance, Lower extremity weakness, Decreased endurance, Limited safety awareness, and Cognitive deficit Safety/Education Safety Safety Devices in place: call light within reach, left in chair, chair alarm in place, gait belt, and nurse notified Restraints: No Education Education Given To: patient Education Provided: PT Role, PT Goals, and Plan of Care Education Method: Verbal Barriers to Learning: Education Outcome: Verbalized Understanding and Continued Education Needed Goals Patient Stated Goal: To go home. Encounter Problems Encounter Problems (Active) Balance Patient will maintain dynamic standing balance for 3 minutes with supervision in order to demonstrate decreased risk of falling. Start: 06/29/25 Expected End: 07/27/25 Mobility Patient will ambulate 250 feet with supervision and rolling walker in order to improve safety and independence with mobility. Start: 06/29/25 Expected End: 07/27/25 Transfers Patient will perform bed mobility with modified independence in order to improve independence and prepare for out of bed mobility. Start: 06/29/25 Expected End: 07/27/25 Patient will complete functional transfer with rolling walker with supervision in order to prepare for ambulation. Start: 06/29/25 Expected End: 07/27/25 Therapy Time Individual Co-Treatment Co-Evaluation Time In 0925 Time Out 0948 Minutes 23 Timed Code Treatment Minutes: 8 Minutes (FA) Rin Navarro PT Patient's Physical Therapy Plan of Care supervision is transferred to a [facility] Therapy Services Physical Therapist. Goals and/or treatment plan was established in collaboration with patient/family/other representatives. 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 right temporal /occiptial/ and hypocapal Depression History of blood transfusion Hyperlipidemia Hypertension Mixed Alzheimer's and vascular dementia (CMS/HCC) 01/21/2025 Type 2 diabetes mellitus (HCC) Type II or unspecified type diabetes mellitus without mention of complication, not stated as uncontrolled (HCC) [2] Past Surgical History: Procedure Laterality Date BREAST LUMPECTOMY Left BREAST LUMPECTOMY Left 2012 s/p radiation as well CATARACT EXTRACTION W/ INTRAOCULAR LENS IMPLANT Bilateral 10/2015, 12/2015 SECTION (HISTORICAL) SECTION, LOW TRANSVERSE [id number] CHOLECYSTECTOMY DILATION AND CURETTAGE OF UTERUS FEMUR FRACTURE SURGERY Right 11/30/2019 HIP ARTHROPLASTY Right 01/21/2020 conversion JOINT REPLACEMENT Bilateral ROTATOR CUFF REPAIR Right TOTAL ABDOMINAL HYSTERECTOMY Hospitalist Progress Note 06/29/2025 Subjective: Admit Date: 06/28/2025 PCP: NENO IQBAL MD Room#: [id number] A BRIEF HOSPITAL COURSE: Beverly is a 79 y.o. female with a PMH of atrial fibrillation, arthritis, breast cancer s/p lumpectomy, radiation and chemotherapy (2012), depression, HLD, HTN, mixed alzheimer's and vascular dementia, T2DM that presented to the ED on 06/28/25 for altered mental status. Per review of chart, pt had recent admission 06/05-06/09/25 after being found down on floor for unknown period of time. Pt was treated for UTI. Family was visiting pt and concerned that she had AMS and called EMS. In the ED, pt was afebrile, CMP showed glucose 164, Ca 10.1 otherwise unremarkable, negative troponin x 2, lactic acid 1.3, CBC unremarkable, blood cultures penidng, UA turbid, + WBC, bacteria, RBC, nitrites, LE. Urine culture pending, Chest xray showed no acute process, CT head no acute process, CT A/P showed Diffuse bladder wall thickening. Administered IV Cefepime and admitted to medicine for further evaluation and mgt. Interval History: Pt seen sitting in bedside chair, tearful, afraid she is going to fall from chair. Oriented to person and place. Becomes easily agitated and yells when asks questions. She is unable to provide any history as to why she is at the hospital. VSS, urine and blood cultures pending. Adult diet Regular 24HR INTAKE/OUTPUT: Intake/Output Summary (Last 24 hours) at 06/29/2025 1020 Last data filed at 06/29/2025 0500 Gross per 24 hour Intake -- Output 700 ml Net -700 ml Past Medical History: Medical History[1] LABS: CBC: Recent Labs 06/28/25 1452 06/29/25 0402 WBC 10.1 8.7 RBC 4.70 4.09 HGB 13.8 12.0 HCT 41.9 36.7 MCV 89.1 89.7 RDW 13.0 12.9 PLT 232 218 BMP: Recent Labs 06/28/25 1452 06/29/25 0402 NA 138 137 K 4.6 4.1 CL 104 111* CO2 24 21* BUN 12 12 CREATININE 0.93 0.79 GLUCOSE 164* 154* CALCIUM 10.1* 9.3 ANIONGAP 10 5 LIVER PROFILE: Recent Labs 06/28/25 1452 AST 15 ALT <6 BILITOT 0.5 ALKPHOS 59 PROT 7.0 PT/INR: No results for input(s): "PROTIME", "INR" in the last 72 hours. CARDIAC ENZYMES: No results for input(s): "TROPONINI" in the last 72 hours. Procalcitonin: No results found for: "PROCAL" COVID-19 PCR: No results for input(s): "COVID19" in the last 72 hours. Objective: Vitals: BP 156/71 Pulse 72 Temp 36.6 C (97.9 F) (Temporal) Resp 18 Ht 5' 6" (1.676 m) Wt 174 lb 6.1 oz (79.1 kg) SpO2 96% BMI 28.15 kg/m Pulse Ox: SpO2 Av % Min: 96 % Max: 100 % Supplemental O2: Physical Exam Constitutional: General: She is not in acute distress. Cardiovascular: Rate and Rhythm: Normal rate and regular rhythm. Pulmonary: Effort: Pulmonary effort is normal. Breath sounds: Normal breath sounds. Abdominal: General: Bowel sounds are normal. Palpations: Abdomen is soft. Tenderness: There is abdominal tenderness in the suprapubic area. Skin: General: Skin is warm. Neurological: Mental Status: She is alert. She is disoriented. Psychiatric: Mood and Affect: Affect is tearful. Medications: Scheduled PRN Scheduled Meds[2] PRN Meds[3] Continuous Continuous Meds[4] Assessment/Plan: Data: (CAT1) Reviewed 1 notes from different specialty or health system (each=1). (CAT1) Reviewed 2 labs/studies ordered by another provider not previously counted (each=1, panels count as 1). (CAT1) Ordered 2 new labs and/or studies (each=1, panels count as 1). (LOW: 2x CAT1 or independent historian MOD: 3x CAT1 or 1x CAT3 EXTENSIVE: 3x CAT1 and 1x CAT3) Acute, acute on chronic, unstable/uncontrolled chronic problems/diagnoses: Acute encephalopathy 2. Hx of Dementia - in setting of UTI - CT brain no acute process - continue aricept UTI - continue IV rocephin - follow urine culture results T2DM with hyperglycemia - Accucheck AC/HS - Lantus 20 units daily - SSI with meals and bedtime - Hypoglycemia protocol orders 4. At risk for delirium - geriatrics consult - melatonin at bedtime - fall precautions Stable chronic problems affecting care, new non-acute diagnoses: Atrial fibrillation - on Xarelto 2. Arthritis 3. Breast cancer s/p lumpectomy, radiation and chemotherapy (2012) 4. Depression - on venlafaxine 5. HLD - on pravastatin 6. HTN - am labs, replace lytes prn - PT/OT/CM/SW - delirium precautions: increase activity and limit nighttime disturbances - DVT prophylaxis: encourage ambulation and already anticoagulated Advance Directive: DNR-CCA Anticipated Discharge - Date - 07/01/25 - Location - Skilled Facility - Pending the following - above clinical course, auth Total time spent (which include face to face and non face to face encounters) : 50 minutes Extended Emergency Contact Information Primary Emergency Contact: Charbel Agee (POA) [address]: [address] [place] [id number] [place] [address] Mobile Relation: Child Pasteuriser Operator needed? No Secondary Emergency Contact: Marbin Agee [facility] Mobile Relation: Son Pasteuriser Operator needed? 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 right temporal /occiptial/ and hypocapal Depression History of blood transfusion Hyperlipidemia Hypertension Mixed Alzheimer's and vascular dementia (CMS/HCC) 01/21/2025 Type 2 diabetes mellitus (HCC) Type II or unspecified type diabetes mellitus without mention of complication, not stated as uncontrolled (HCC) [2] ascorbic acid, 1,000 mg, Oral, Daily cefTRIAXone, 1,000 mg, IntraVENous, q24h cholecalciferol, 5,000 Units, Oral, Daily cyanocobalamin, 1,000 mcg, Oral, Daily donepezil, 10 mg, Oral, Daily insulin glargine, 20 Units, SubCUTAneous, q AM insulin lispro, 0-12 Units, SubCUTAneous, TID WC And insulin lispro, 0-12 Units, SubCUTAneous, Nightly Insulin Lispro, 8 Units, SubCUTAneous, BID AC magnesium oxide, 400 mg, Oral, BID melatonin, 5 mg, Oral, Nightly pravastatin, 80 mg, Oral, Nightly QUEtiapine, 12.5 mg, Oral, Nightly rivaroxaban, 20 mg, Oral, Daily with breakfast venlafaxine XR, 150 mg, Oral, Daily with breakfast [3] PRN medications: acetaminophen OR acetaminophen, dextrose, dextrose, glucagon (rDNA), glucose, ondansetron ODT OR ondansetron, polyethylene glycol (PEG) 3350, traZODone [4] documented in this encounter [facility] 07-01-2025 Note [facility] Hospital course Narrative Hospitalist Discharge Summary Beverly Agee : 1945 Admit date: 06/28/2025 Discharge date: 07/01/2025 Admitting Physician: Waldo Guillen MD Primary Care Physician: NENO IQBAL MD Visit Status: Observation Code Status: DNR-CCA BRIEF HOSPITAL COURSE: Beverly is a 79 y.o. female with a PMH of atrial fibrillation, arthritis, breast cancer s/p lumpectomy, radiation and chemotherapy (2012), depression, HLD, HTN, mixed alzheimer's and vascular dementia, T2DM that presented to the ED on 06/28/25 for altered mental status. Per review of chart, pt had recent admission 06/05-06/09/25 after being found down on floor for unknown period of time. Pt was treated for UTI. Family was visiting pt and concerned that she had AMS and called EMS. In the ED, pt was afebrile, CMP showed glucose 164, Ca 10.1 otherwise unremarkable, negative troponin x 2, lactic acid 1.3, CBC unremarkable, blood cultures penidng, UA turbid, + WBC, bacteria, RBC, nitrites, LE. Urine culture pending, Chest xray showed no acute process, CT head no acute process, CT A/P showed Diffuse bladder wall thickening. Administered IV Cefepime and admitted to medicine for further evaluation and mgt. Urine culture growing enterococcus faecalis and e coli- abx transitioned to nitrofurantoin 100mg BID x 5 more days to finish course of abx. Patient evaluated by geriatrics for acute encephalopathy and mixed dementia. Recommended outpatient follow-up with [facility]. Evaluated by PT/OT and recommended SNF. Patient deemed medically stable and ready for discharge to [facility] care [facility]. Acute, acute on chronic, unstable/uncontrolled chronic problems/discharge diagnoses: Acute encephalopathy-resolved Mixed dementia UTI Type 2 diabetes mellitus with hyperglycemia Declining functional status Stable chronic problems affecting care, new non-acute discharge diagnoses: Medical History[1] Procedures: As above Hospital Course: See discharge diagnoses list above and medication adjustments below in med rec.The patient is discharged in improved and stable condition. Consults: IP CONSULT TO WOUND PREVENTION IP CONSULT TO GERIATRICS Discharge Instructions: Diet: Dietary Orders (From admission, onward) Start Ordered 06/28/251945 Adult diet Regular Diet effective now Question: Diet type Answer: Regular 06/28/251944 Activity: as tolerated Recommended Outpatient Tests: Disposition: Patient discharged in stable condition to SNF. Greater than 31 minutes spent discharging the patient and coming up with patient discharge plan. Vitals: BP 117/77 (BP Location: Left arm, Patient Position: Sitting) Pulse 59 Temp 36.5 C (97.7 F) (Temporal) Resp 18 Ht 5' 6" (1.676 m) Wt 174 lb 6.1 oz (79.1 kg) SpO2 97% BMI 28.15 kg/m Pulse Ox: SpO2 Av.5 % Min: 96 % Max: 97 % Supplemental O2: Physical Exam Vitals and nursing note reviewed. Cardiovascular: Rate and Rhythm: Regular rhythm. Heart sounds: Normal heart sounds. Pulmonary: Breath sounds: Normal breath sounds. Abdominal: General: Bowel sounds are normal. Palpations: Abdomen is soft. Skin: General: Skin is warm and dry. Neurological: Mental Status: She is alert and oriented to person, place, and time. LABS: Recent Labs 06/29/25 0402 06/30/25 0020 07/01/25 0238 NA 137 137 138 K 4.1 4.0 4.0 CL 111* 107 106 CO2 21* 23 24 BUN 12 14 15 CREATININE 0.79 0.77 0.71 GLUCOSE 154* 150* 124* CALCIUM 9.3 9.4 9.5 Recent Labs 06/29/25 0402 06/30/25 0020 07/01/25 0238 WBC 8.7 8.5 8.5 RBC 4.09 3.98 4.19 HGB 12.0 11.7 12.3 HCT 36.7 35.2 36.9 MCV 89.7 88.4 88.1 MCH 29.3 29.4 29.4 MCHC 32.7 33.2 33.3 RDW 12.9 12.8 12.8 PLT 218 219 214 MPV 9.7 9.8 9.7 Discharge Medications: Medication List START taking these medications nitrofurantoin (macrocrystal-monohydrate) 100 MG capsule Commonly known as: Macrobid Take 1 capsule (100 mg) by mouth every 12 hours for 5 days. CHANGE how you take these medications melatonin 5 MG tablet Take 1 tablet (5 mg) by mouth Nightly. CONTINUE taking these medications ascorbic acid 500 MG tablet Commonly known as: Vitamin C CALCIUM 600 PO cholecalciferol 25 MCG (1000 UT) tablet Commonly known as: Vitamin D3 cyanocobalamin 1000 MCG tablet Commonly known as: Vitamin B-12 Take 1 tablet (1,000 mcg) by mouth daily. Dexcom G7 Sensor misc donepezil 10 MG tablet Commonly known as: Aricept Take 1 tablet (10 mg) by mouth daily. Drug [place] Unifine Pentips Plus 32G X 4 MM misc Generic drug: insulin pen needle fenofibrate 54 MG tablet Commonly known as: Tricor Take 1 tablet (54 mg) by mouth daily. insulin glargine 100 UNIT/ML injection Commonly known as: Lantus Inject 20 Units under the skin every morning. Insulin Lispro 100 UNIT/ML solution injection Commonly known as: Humalog Inject 8 Units under the skin 2 times daily (before meals). losartan 25 MG tablet Commonly known as: Cozaar Take 1 tablet (25 mg) by mouth daily. magnesium oxide 400 (240 Mg) MG tablet Commonly known as: Mag-Ox Take 1 tablet (400 mg) by mouth 2 times daily. pravastatin 80 MG tablet Commonly known as: Pravachol Take 1 tablet (80 mg) by mouth in the morning. traZODone 50 MG tablet Commonly known as: Desyrel Take 1 tablet (50 mg) by mouth Nightly as needed for sleep. venlafaxine XR 150 MG 24 hr capsule Commonly known as: Effexor XR Take 1 capsule (150 mg) by mouth daily (with breakfast). Do not crush or chew. Xarelto 20 MG tablet Generic drug: rivaroxaban TAKE 1 TABLET BY MOUTH EVERY MORNING WITH BREAKFAST STOP taking these medications nystatin ointment Commonly known as: Mycostatin Where to Get Your Medications These medications were sent to [facility] [address] [place] [address] Hours: Sunday to Sunday 10 am to 6 pm nitrofurantoin (macrocrystal-monohydrate) 100 MG capsule Recommended Follow-up: Neno Iqbal MD [address] [id number] Follow up Complexity of Follow up: [] Moderate Complexity: follow up within 7-14 calendar days (95783) [x] Severe Complexity: follow up within 7 calendar days (97354) Follow up Testing, Pending results or Referrals at Transitional Care Visit: [x] yes [] no Instructions to MA: Please call patient on day after discharge (must document patient contacted within 2 business days of discharge). Follow up questions for MA: 1. Did you get medications filled and taking them as instructed from discharge? 2. Are you following your discharge instructions from your hospital stay? 3. Please confirm patient is scheduled for a follow up appointment within the above time frame. 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 I agree with the current plan of care including the workup, evaluation, management, and diagnosis. Care plan has been discussed. The documentation below has been reviewed and edited as needed to reflect the findings of my evaluation. Greater than 51% of the 15 minute face to face encounter was spent discussing/counseling the patient regarding the care plan for this patient. The patient was seen and examined independently and relevant data reviewed by myself. A full chart review was performed. Patient seen at bedside today. She had no acute complaints on my exam. Discussed case with MILKA. Plans to discharge to [facility] today. Rest as per below Waldo Guillen MD Division of Hospitalist Medicine [facility] 12:41 PM 07/01/25 documented in this encounter [facility] 07-01-2025 Patient's home Note SOURAV notified of patient dc to [facility]. [facility] 07-01-2025 Miscellaneous Notes SOURAV notified of patient dc to [facility]. Transportation has been confirmed for 2 PM to [facility]. RN and community health nurse staff notified via secure chat. Son, Charbel, notified via TC. Confirmed pickup time of 2:00pm on 07/01/25 by transport [employer]Factor at phone number [phone]. Location of facility drop off is [facility]. Facility notified via [facility], TCC notified on secure chat. Patient Choice Patient Name: BEVERLY AGEE Date of : 1945 All Providers Sent Referral Name: [facility] Phone: [phone] Address: [address] [place] [address] [address] [place] [address] Discharge med list transmitted to [facility] via [facility] per TCC request. Discharge order noted in epic. [facility] tasked to set up transport to [facility]. Auth has been obtained for discharge to [facility]. notified via secure chat. Reviewed chart. Spoke with son regarding questions for the Pasrr screen. Completed in [facility] for [facility]. Care Management Progress Note Short Medical why still here: Chart reviewed. OT see today placed and consult completed. Patient is on iv abx for PNA. OT note provided to [facility] via [facility]. Requested that they start auth. SW notified to complete pas-r. Planned Discharge Disposition: [facility] Facility Barriers/Today we still Wait: Facility pre-cert, Other (comment) (pas-r) Length of Stay (Days): 0 GMLOS: No GMLOS Documented Referral placed to SNF- [facility] via [facility] per TCC request. Await review and response regarding ability to accept. TCC notified. Care Managment Initial Assessment Date: 06/29/2025 Patient Name: Beverly Agee : 1945 Patient Information Source of Information: Patient Honing Machine Try Out Setter Name/Contact Information: Charbel sauceda via TC Cognition/Language: Impaired, Confused at baseline Permission given to speak with patient plastic products sales representative/caregiver as indicated: Yes Confirmation of Payer with patient/family: Yes Payer Name: Alex medicare : No Confirmation of Primary Care Physician: Confirmed PCP Name: Neno Iqbal Seen in last 2 years?: Yes Primary Caregiver: Self If assistance needed, confirmed caregiver ready, willing and able to care for patient at discharge: No Confirmed with: sohail Barger Living Arrangements Current Residence: House Number of Floors 1 Number of Entry Steps: 2 Bed/Bath Levels: Both first floor Lives with: Alone Support Systems: Children, Family members, Home care staff Activities of Daily Living Ambulation: Independent Bathing/Dressing: Independent (son sits in bedroom while patient showers as she has a fear of falling) Elimination/Continence/Toileting: Independent Feeding: Independent Who Assists with Activities of Daily Living: Instrumental Activities of Daily Living Prescription Coverage: Yes Pharmacy Used: [facility] [place] [facility] [address] [facility] [address] Medication Management: Prescription pick-up Who assists with medication securing and setup?: sohail Charbel Transportation/Shopping: Assistance Provider Transportation/Shopping Assistance Provider Name: sohail Barger Transportation Mode: Car Needs Assistance with Transportation at Discharge: Comments (TBD) Meal Preparation: Independent Laundry/Cleaning: Independent (assist PRN) Finances/Bill Paying: Assistance Provider Finances/Bill Payer Assistance Provider Name: sohail Barger Communication: Independent Types of Care Services/Equipment Utilized Care Services: Skilled Home Health Services Care Services Provider Name: SOURAV since home from SNF 1 week ago Durable Medical Equipment: Walker, Wheelchair (standard or power), Shower Seat Patient's Goal/Discharge Plan Patient expects to be discharged to: SNF Discharge Planning Actions: Continue to follow, [facility] Facility referral indicated [place] of choice: [place] of choice discussed, Choice list provided Patient's Choice Rights and [employer] and Collaborative Relationships Disclosed as Indicated for Post-Acute Care: Yes Interdisciplinary Team Engagement: PT/OT Social Work Referral for: Additional Information: Introduced self and role to patient son ANGEL Barger via TC. Patient admitted with change in mental statues. +UA on iv abx. Discussed with Charbel that PT is recommending SNF. He is agreeable and stated that she has been to [facility] in the past and that would be his first choice. INSURANCE RISK MANAGER tasked to place referral. Juliana Rodriguez RN Patient is currently active with [facility]. The patients current certification period will on 08/21/25. The patient is currently receiving SN/PT/OT services through the agency. [place]ling Ball Marker to continue to follow. documented in this encounter [facility] 07-01-2025 Progress note Formatting of t his note might be different from the original. Transportation has been confirmed for 2 PM to [facility]. RN and community health nurse staff notified via secure chat. SonCharbel, notified via TC. [facility] 07-01-2025 Progress note Formatting of t his note might be different from the original. Confirmed pickup time of 2:00pm on 07/01/25 by transport [employer] at phone number [phone]. Location of facility drop off is [facility]. Facility [facility], TCC notified on secure chat. [facility] 07-01-2025 Progress note Formatting of t his note might be different from the original. Patient Choice Patient Name: BEVERLY AGEE Date of : 1945 All Providers Sent Referral Name: [facility] Phone: [phone] Address: [address] [place] [address] [facility] 07-01-2025 Progress note Formatting of t his note might be different from the original. Discharge med list transmitted to [facility] via [facility] per TCC request. [facility] 07-01-2025 Progress note Formatting of t his note might be different from the original. Discharge order noted in epic. [facility] tasked to set up transport to [facility]. [facility] 07-01-2025 Progress note Formatting of t his note might be different from the original. Auth has been obtained for discharge to [facility]. MD notified via secure chat. [facility] 06-30-2025 Progress note Formatting of t his note might be different from the original. Reviewed chart. Spoke with son regarding questions for the Pasrr screen. Completed in [facility] for [facility]. [facility] 06-30-2025 Progress note Formatting of t his note might be different from the original. Care Management Progress Note Short Medical why still here: Chart reviewed. OT see today placed and consult completed. Patient is on iv abx for PNA. [facility] Requested that they start auth. SW notified to complete pas-r. Planned Discharge Disposition: [facility] Facility Barriers/Today we still Wait: Facility pre-cert, Other (comment) (pas-r) Length of Stay (Days): 0 GMLOS: No GMLOS Documented [facility] 06-30-2025 Consult note Associated Order (s): IP CONSULT TO GERIATRICS [facility] Inpatient Consult Service Admission Date:06/28/2025 Admission Status: OBSERVATION Chief Complaint: altered mental status Reason for Appointment Geriatrics consulted for encephalopathy, dementia Assessment Principal Problem: Urinary tract infection in female Active Problems: H/O: CVA (cerebrovascular accident) Memory impairment Obesity Atrial fibrillation (HCC) Plan Acute encephalopathy - improving - likely secondary to infection (UTI) in setting of baseline dementia, with recent hospitalization/SNF stay- multiple recent transitions of care - CT head without acute findings - recommend delirium order set - continue to assess and treat for pain should agitation present - monitor for urinary retention/constipation- last BM documented 06/30 - promote sleep/wake cycle- agree with scheduled nightly melatonin - Avoid sedating/anticholinergic medications, encourage sleep hygiene, encourage family visits, optimize sensory input and access to assistive devices where indicated, encourage time up in chair as able and D/c Monge, restraints, IV lines, as able Mixed dementia -Known patient to the [facility] for [facility]- last MoCA on 12/31/24 with score of 13/30 -Continue donepezil. Monitor for bradycardia. -Son reports worsening of "sundowning" type behaviors- monitor while inpatient, if difficulty with sleep- may consider addition of medication if needed -Continue supportive care. -Already has a follow up appointment scheduled at the [facility] for [facility] on 08/05/25- recommend to keep this appt for repeat cognitive testing/caregiver supports Declining functional status - in setting of recent hospitalization, progression of dementia - Family is currently assisting with ADLs and IADLs in home - Dietitian consult - continue PT/OT as able while inpatient - PT recommending SNF- family is agreeable to this plan Follow-up: 1-2 days Subjective: HPI 79 y.o. year-old female with past medical history of atrial fibrillation, mixed dementia, history of CVA, type 2 diabetes mellitus, depression presented from home for confusion. Per review of chart, recent admission 06/05-06/09 after being found down for unknown amount of time. Found to have UTI, per EMS pt had family visiting the home who called for change in mental status. Seen by inpt geriatric consult during her last recent admission. Also, known patient to [facility]- follows with Agueda Burch NP Seen by PT yesterday- ambulated 42ft min assist with FWW Patient repots that she is doing well today, she denies pain, states she thinks she is in the hospital because she fell again, she admits to being forgetful. States her sleep as been good, she knows she is at a hospital at this time. Conversation with caregiver: son Reports that in the last week of the rehab stay she seemed to have more "sundowning" type behaviors- reports that this occurs btwn 330-4pm - reports that when this happens she becomes more anxious thinking that she needs to be doing something but can't remember what it is. Denies her having agitation or wandering type behaviors. Reports that it is hard to tell if she's been having more confusion than usual due to the UTI concerns. Denies falls or mobility issues, Eating well- his MIL goes over 5 days a week to help her get lunch and he is there in the evenings. Healthcare Power of Director Investor Relations: Yes: son (Charbel) Scanned in [employer] Financial Power of Director Investor Relations: Yes: son (Charbel) Scanned in [employer] Living Will: Yes Guardian: No Code Status: DNRCC-A Allergies[1] Current Medications[2] Medical History[3] Surgical History[4] Social History Social History Tobacco Use Smoking status: Every Day Current packs/day: 1.00 Average packs/day: 1 pack/day for 125.8 years (125.8 ttl pk-yrs) Types: Cigarettes Start date: 08/27/1959 Smokeless tobacco: Never Substance Use Topics Alcohol use: Not Currently Alcohol/week: 0.0 standard drinks of alcohol Social History Social History Narrative Not on file Patient Currently Lives: alone- but with frequent family visits/support Level of Family Support: multiple family members involved in care Community Resources: already established with [facility], [facility], cleaning service Elder Abuse: denied Family History Family History[5] Family Status Relation Name Status Son Marbin Agee Alive Brother Mother Wanda Younger Father Ko Younger Brother Son Charbel Agee Alive Son Alive Sister No partnership data on file Family history reviewed as above Review of Systems Constitutional: Negative for activity change and appetite change. HENT: Negative for hearing loss. Respiratory: Negative for cough and shortness of breath. Cardiovascular: Negative for chest pain. Gastrointestinal: Negative for abdominal pain and nausea. Musculoskeletal: Positive for gait problem. Negative for arthralgias. Neurological: Negative for dizziness and headaches. Psychiatric/Behavioral: Positive for confusion. Negative for sleep disturbance. Functional Status (I: Independent, A: Assisted, D: Dependent)-- Reported to outpatient furnace worker during clinic visit 12/31/24 ADLs I A D Notes Bathing [] [x] [] Son has to be there when patient showers, son has to cue patient to do it twice per week Dressing [x] [] [] Changing daily, can dress herself, stays in nightclothes often Toileting [x] [] [] Has a few accidents, wears Depends, manages on her own most of the time Transfers [x] [] [] Feeding [x] [] [] No issues Ambulation [] [x] [] Uses a walker Assistive devices: Grab bars, Raised toilet seat, and Walker IADLs I A D Telephone [] [x] [] Has a cell phone, only will call son rarely, can answer the phone, son sets up appointments, patient needs multiple reminders Transportation [] [] [x] Driving safety concerns: Not currently driving Shopping [] [] [x] Son orders groceries and have them delivered Meal prep [] [x] [] Eats breakfast and dinner, may snack in between, not losing weight-- family helping with lunches multiple days a week Housework [] [x] [] Cleaning service once per month, son does laundry, patient will do some dishes Medications [] [x] [] Forgets evening medications frequently, son calls her to remind her, still forgets even when he calls to remind her Finances [] [] [x] Son manages Objective: BP 133/58 (BP Location: Right arm, Patient Position: Lying) Pulse 55 Temp 36.4 C (97.5 F) (Temporal) Resp 16 Ht 5' 6" (1.676 m) Wt 174 lb 6.1 oz (79.1 kg) SpO2 97% BMI 28.15 kg/m Intake/Output Summary (Last 24 hours) at 06/30/2025 1032 Last data filed at 06/29/2025 1735 Gross per 24 hour Intake -- Output 500 ml Net -500 ml Wt Readings from Last 4 Encounters: 06/28/25 174 lb 6.1 oz (79.1 kg) 06/05/25 176 lb 12.9 oz (80.2 kg) 05/26/25 183 lb (83 kg) 02/20/25 161 lb (73 kg) Physical Exam Constitutional: General: She is not in acute distress. Comments: Sitting up in bedside chair, alert and cooperative with exam HENT: Head: Normocephalic. Right Ear: External ear normal. Left Ear: External ear normal. Mouth/Throat: Mouth: Mucous membranes are moist. Pharynx: Oropharynx is clear. Eyes: General: Right eye: No discharge. Left eye: No discharge. Conjunctiva/sclera: Conjunctivae normal. Cardiovascular: Rate and Rhythm: Normal rate. Pulmonary: Effort: Pulmonary effort is normal. No respiratory distress. Breath sounds: No wheezing or rales. Abdominal: General: Bowel sounds are normal. There is no distension. Palpations: Abdomen is soft. Tenderness: There is no abdominal tenderness. There is no guarding. Musculoskeletal: Right lower leg: No edema. Left lower leg: No edema. Skin: General: Skin is warm. Neurological: Mental Status: She is alert. She is disoriented. Comments: Alert and oriented to self and place, not date Follows commands Psychiatric: Attention and Perception: Attention normal. Mood and Affect: Mood normal. Behavior: Behavior normal. Cognition and Memory: She exhibits impaired recent memory. Mini-Mental Status Exam: Not performed at this time, patient already established with outpt geriatric clinic Labs and Imaging: Recent Results (from the past 24 hours) POCT glucose meter Collection Time: 06/29/25 12:00 PM Result Value Ref Range Glucose 70 70 - 100 mg/dL POCT glucose meter Collection Time: 06/29/25 12:20 PM Result Value Ref Range Glucose 99 70 - 100 mg/dL POCT glucose meter Collection Time: 06/29/25 5:26 PM Result Value Ref Range Glucose 189 (H) 70 - 100 mg/dL POCT glucose meter Collection Time: 06/29/25 7:45 PM Result Value Ref Range Glucose 135 (H) 70 - 100 mg/dL Basic metabolic panel Collection Time: 06/30/25 12:20 AM Result Value Ref Range SODIUM 137 136 - 145 mmol/L POTASSIUM 4.0 3.5 - 5.1 mmol/L CHLORIDE 107 98 - 107 mmol/L CARBON DIOXIDE 23 23 - 31 mmol/L UREA NITROGEN 14 9 - 23 mg/dL CREATININE 0.77 0.58 - 1.12 mg/dL GLUCOSE 150 (H) 82 - 115 mg/dL CALCIUM 9.4 8.8 - 10.0 mg/dL ANION GAP 7 3 - 13 mmol/L eGFR 79.6 >60.0 mL/min/1.73m*2 CBC Collection Time: 06/30/25 12:20 AM Result Value Ref Range Auto WBC 8.5 3.6 - 10.7 10*3/uL RBC 3.98 3.80 - 5.20 10*6/uL Hemoglobin 11.7 11.7 - 16.0 g/dL Hematocrit 35.2 35.0 - 47.0 % MCV 88.4 77.0 - 99.0 fL MCH 29.4 26.0 - 34.0 pg MCHC 33.2 30.5 - 36.0 % RDW 12.8 11.5 - 15.0 % Platelets 219 140 - 440 10*3/uL MPV 9.8 9.0 - 12.7 fL POCT glucose meter Collection Time: 06/30/25 7:24 AM Result Value Ref Range Glucose 160 (H) 70 - 100 mg/dL Lab Results Component Value Date TSH 2.07 10/21/2024 No components found for: "B12" Lab Results Component Value Date VITD25 35 06/06/2025 Reviewed: active problem list, medication list, allergies, notes from last encounter, lab results, imaging [1] Allergies Allergen Reactions Aspirin Hives and Swelling Blotchy, GI, hives Penicillins Blotchiness tolerates cephalosporins 09/2024 Sulfa Antibiotics Hives and Swelling blotchy [2] Current Facility-Administered Medications: acetaminophen (Tylenol) tablet 650 mg, 650 mg, Oral, q6h PRN OR acetaminophen (Tylenol) suppository 650 mg, 650 mg, Rectal, q6h PRN, Darrin Iniguez MD ascorbic acid (Vitamin C) tablet 1,000 mg, 1,000 mg, Oral, Daily, Darrin Iniguez MD, 1,000 mg at 06/30/25 0846 cefTRIAXone (Rocephin) 1,000 mg in sodium chloride 0.9 % 50 mL IVPB Mini-Bag Plus, 1,000 mg, IntraVENous, q24h, Darrin Iniguez MD, Stopped at 06/29/251 cholecalciferol (Vitamin D-3) tablet 5,000 Units, 5,000 Units, Oral, Daily, Darrin Iniguez MD, 5,000 Units at 06/30/25 0846 cyanocobalamin (Vitamin B-12) tablet 1,000 mcg, 1,000 mcg, Oral, Daily, Darrin Iniguez MD, 1,000 mcg at 06/30/25 0846 dextrose 5 % infusion, 100 mL/hr, IntraVENous, PRN, Darrin Iniguez MD dextrose 50 % solution 12.5 g, 12.5 g, IntraVENous, PRN, Darrin Iniguez MD donepezil (Aricept) tablet 10 mg, 10 mg, Oral, Daily, Darrin Iniguez MD, 10 mg at 06/30/25 0846 glucagon (human recombinant) injection 1 mg, 1 mg, IntraMUSCular, PRN, Darrin Iniguez MD glucose oral gel 15 g, 15 g, Oral, PRN, Darrin Iniguez MD insulin glargine (Lantus) injection 20 Units, 20 Units, SubCUTAneous, q AM, Darrin Iniguez MD, 20 Units at 06/30/25 0847 Insulin Lispro (Humalog) injection 0-12 Units, 0-12 Units, SubCUTAneous, TID WC, 2 Units at 06/30/25 0847 AND Insulin Lispro (Humalog) injection 0-12 Units, 0-12 Units, SubCUTAneous, Nightly, Darrin Iniguez MD Insulin Lispro (Humalog) injection 8 Units, 8 Units, SubCUTAneous, BID AC, Darrin Iniguez MD, 8 Units at 06/30/25 0847 magnesium oxide (Mag-Ox) tablet 400 mg, 400 mg, Oral, BID, Darrin Iniguez MD, 400 mg at 06/30/25845 melatonin tablet 5 mg, 5 mg, Oral, Nightly, Darrin Iniguez MD, 5 mg at 06/29/252009 ondansetron ODT (Zofran-ODT) disintegrating tablet 4 mg, 4 mg, Oral, q8h PRN OR ondansetron (Zofran) injection 4 mg, 4 mg, IntraVENous, q6h PRN, Darrin Iniguez MD, 4 mg at 06/29/25227 polyethylene glycol (PEG) 3350 (Miralax) packet 17 g, 17 g, Oral, Daily PRN, Darrin Iniguez MD, 17 g at 06/29/252009 pravastatin (Pravachol) tablet 80 mg, 80 mg, Oral, Nightly, Darrin Iniguez MD, 80 mg at 06/29/252009 rivaroxaban (Xarelto) tablet 20 mg, 20 mg, Oral, Daily with breakfast, Darrin Iniguez MD, 20 mg at 06/30/25845 traZODone (Desyrel) tablet 50 mg, 50 mg, Oral, Nightly PRN, Darrin Iniguez MD, 50 mg at 06/29/252009 venlafaxine XR (Effexor XR) 24 hr capsule 150 mg, 150 mg, Oral, Daily with breakfast, Darrin Iniguez MD, 150 mg at 06/30/25 0846 [3] Past Medical History: Diagnosis Date Arrhythmia Arthritis Atrial fibrillation (HCC) Breast CA (HCC) Cancer (HCC) 09/30/2012 Left quadrantectomy & axillary LN 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 right temporal /occiptial/ and hypocapal Depression History of blood transfusion Hyperlipidemia Hypertension Mixed Alzheimer's and vascular dementia (CMS/HCC) 01/21/2025 Type 2 diabetes mellitus (HCC) Type II or unspecified type diabetes mellitus without mention of complication, not stated as uncontrolled (HCC) [4] Past Surgical History: Procedure Laterality Date BREAST LUMPECTOMY Left BREAST LUMPECTOMY Left 2012 s/p radiation as well CATARACT EXTRACTION W/ INTRAOCULAR LENS IMPLANT Bilateral 10/2015, 12/2015 SECTION (HISTORICAL) SECTION, LOW TRANSVERSE [id number] CHOLECYSTECTOMY DILATION AND CURETTAGE OF UTERUS FEMUR FRACTURE SURGERY Right 11/30/2019 HIP ARTHROPLASTY Right 01/21/2020 conversion JOINT REPLACEMENT Bilateral ROTATOR CUFF REPAIR Right TOTAL ABDOMINAL HYSTERECTOMY [5] Family History Problem Relation Name Age of Onset Asthma Son Thyroid disease Brother Cancer Mother Cancer Father Thyroid disease Mother Cancer Brother Asthma Son Asthma Son Diabetes Son Charbel Agee [facility] 06-30-2025 Consult note Associated Order (s): IP CONSULT TO GERIATRICS [facility] Inpatient Consult Service Admission Date:06/28/2025 Admission Status: OBSERVATION Chief Complaint: altered mental status Reason for Appointment Geriatrics consulted for encephalopathy, dementia Assessment Principal Problem: Urinary tract infection in female Active Problems: H/O: CVA (cerebrovascular accident) Memory impairment Obesity Atrial fibrillation (HCC) Plan Acute encephalopathy - improving - likely secondary to infection (UTI) in setting of baseline dementia, with recent hospitalization/SNF stay- multiple recent transitions of care - CT head without acute findings - recommend delirium order set - continue to assess and treat for pain should agitation present - monitor for urinary retention/constipation- last BM documented 06/30 - promote sleep/wake cycle- agree with scheduled nightly melatonin - Avoid sedating/anticholinergic medications, encourage sleep hygiene, encourage family visits, optimize sensory input and access to assistive devices where indicated, encourage time up in chair as able and D/c Monge, restraints, IV lines, as able Mixed dementia -Known patient to the [facility]- last MoCA on 12/31/24 with score of 13/30 -Continue donepezil. Monitor for bradycardia. -Son reports worsening of "sundowning" type behaviors- monitor while inpatient, if difficulty with sleep- may consider addition of medication if needed -Continue supportive care. -Already has a follow up appointment scheduled at the [facility] on 08/05/25- recommend to keep this appt for repeat cognitive testing/caregiver supports Declining functional status - in setting of recent hospitalization, progression of dementia - Family is currently assisting with ADLs and IADLs in home - Dietitian consult - continue PT/OT as able while inpatient - PT recommending SNF- family is agreeable to this plan Follow-up: 1-2 days Subjective: HPI 79 y.o. year-old female with past medical history of atrial fibrillation, mixed dementia, history of CVA, type 2 diabetes mellitus, depression presented from home for confusion. Per review of chart, recent admission 06/05-06/09 after being found down for unknown amount of time. Found to have UTI, per EMS pt had family visiting the home who called for change in mental status. Seen by inpt geriatric consult during her last recent admission. Also, known patient to [facility]- follows with Agueda Burch NP Seen by PT yesterday- ambulated 42ft min assist with FWW Patient repots that she is doing well today, she denies pain, states she thinks she is in the hospital because she fell again, she admits to being forgetful. States her sleep as been good, she knows she is at a hospital at this time. Conversation with caregiver: son Reports that in the last week of the rehab stay she seemed to have more "sundowning" type behaviors- reports that this occurs btwn 330-4pm - reports that when this happens she becomes more anxious thinking that she needs to be doing something but can't remember what it is. Denies her having agitation or wandering type behaviors. Reports that it is hard to tell if she's been having more confusion than usual due to the UTI concerns. Denies falls or mobility issues, Eating well- his MIL goes over 5 days a week to help her get lunch and he is there in the evenings. Healthcare Power of Director Investor Relations: Yes: son (Charbel) Scanned in [employer] Financial Power of Director Investor Relations: Yes: son Sherly) Scanned in [facility] Living Will: Yes Guardian: No Code Status: DNRCC-A Allergies[1] Current Medications[2] Medical History[3] Surgical History[4] Social History Social History Tobacco Use Smoking status: Every Day Current packs/day: 1.00 Average packs/day: 1 pack/day for 125.8 years (125.8 ttl pk-yrs) Types: Cigarettes Start date: 08/27/1959 Smokeless tobacco: Never Substance Use Topics Alcohol use: Not Currently Alcohol/week: 0.0 standard drinks of alcohol Social History Social History Narrative Not on file Patient Currently Lives: alone- but with frequent family visits/support Level of Family Support: multiple family members involved in care Community Resources: already established with [facility], [facility], [facility] service Elder Abuse: denied Family History Family History[5] Family Status Relation Name Status Son Marbin Agee Alive Brother Mother Wanda Younger Father Ko Younger Brother Son Charbel Agee Alive Son Alive Sister No partnership data on file Family history reviewed as above Review of Systems Constitutional: Negative for activity change and appetite change. HENT: Negative for hearing loss. Respiratory: Negative for cough and shortness of breath. Cardiovascular: Negative for chest pain. Gastrointestinal: Negative for abdominal pain and nausea. Musculoskeletal: Positive for gait problem. Negative for arthralgias. Neurological: Negative for dizziness and headaches. Psychiatric/Behavioral: Positive for confusion. Negative for sleep disturbance. Functional Status (I: Independent, A: Assisted, D: Dependent)-- Reported to outpatient furnace worker during clinic visit 12/31/24 ADLs I A D Notes Bathing [] [x] [] Son has to be there when patient showers, son has to cue patient to do it twice per week Dressing [x] [] [] Changing daily, can dress herself, stays in nightclothes often Toileting [x] [] [] Has a few accidents, wears Depends, manages on her own most of the time Transfers [x] [] [] Feeding [x] [] [] No issues Ambulation [] [x] [] Uses a walker Assistive devices: Grab bars, Raised toilet seat, and Walker IADLs I A D Telephone [] [x] [] Has a cell phone, only will call son rarely, can answer the phone, son sets up appointments, patient needs multiple reminders Transportation [] [] [x] Driving safety concerns: Not currently driving Shopping [] [] [x] Son orders groceries and have them delivered Meal prep [] [x] [] Eats breakfast and dinner, may snack in between, not losing weight-- family helping with lunches multiple days a week Housework [] [x] [] Cleaning service once per month, son does laundry, patient will do some dishes Medications [] [x] [] Forgets evening medications frequently, son calls her to remind her, still forgets even when he calls to remind her Finances [] [] [x] Son manages Objective: BP 133/58 (BP Location: Right arm, Patient Position: Lying) Pulse 55 Temp 36.4 C (97.5 F) (Temporal) Resp 16 Ht 5' 6" (1.676 m) Wt 174 lb 6.1 oz (79.1 kg) SpO2 97% BMI 28.15 kg/m Intake/Output Summary (Last 24 hours) at 06/30/2025 1032 Last data filed at 06/29/2025 1735 Gross per 24 hour Intake -- Output 500 ml Net -500 ml Wt Readings from Last 4 Encounters: 06/28/25 174 lb 6.1 oz (79.1 kg) 06/05/25 176 lb 12.9 oz (80.2 kg) 05/26/25 183 lb (83 kg) 02/20/25 161 lb (73 kg) Physical Exam Constitutional: General: She is not in acute distress. Comments: Sitting up in bedside chair, alert and cooperative with exam HENT: Head: Normocephalic. Right Ear: External ear normal. Left Ear: External ear normal. Mouth/Throat: Mouth: Mucous membranes are moist. Pharynx: Oropharynx is clear. Eyes: General: Right eye: No discharge. Left eye: No discharge. Conjunctiva/sclera: Conjunctivae normal. Cardiovascular: Rate and Rhythm: Normal rate. Pulmonary: Effort: Pulmonary effort is normal. No respiratory distress. Breath sounds: No wheezing or rales. Abdominal: General: Bowel sounds are normal. There is no distension. Palpations: Abdomen is soft. Tenderness: There is no abdominal tenderness. There is no guarding. Musculoskeletal: Right lower leg: No edema. Left lower leg: No edema. Skin: General: Skin is warm. Neurological: Mental Status: She is alert. She is disoriented. Comments: Alert and oriented to self and place, not date Follows commands Psychiatric: Attention and Perception: Attention normal. Mood and Affect: Mood normal. Behavior: Behavior normal. Cognition and Memory: She exhibits impaired recent memory. Mini-Mental Status Exam: Not performed at this time, patient already established with outpt geriatric clinic Labs and Imaging: Recent Results (from the past 24 hours) POCT glucose meter Collection Time: 06/29/25 12:00 PM Result Value Ref Range Glucose 70 70 - 100 mg/dL POCT glucose meter Collection Time: 06/29/25 12:20 PM Result Value Ref Range Glucose 99 70 - 100 mg/dL POCT glucose meter Collection Time: 06/29/25 5:26 PM Result Value Ref Range Glucose 189 (H) 70 - 100 mg/dL POCT glucose meter Collection Time: 06/29/25 7:45 PM Result Value Ref Range Glucose 135 (H) 70 - 100 mg/dL Basic metabolic panel Collection Time: 06/30/25 12:20 AM Result Value Ref Range SODIUM 137 136 - 145 mmol/L POTASSIUM 4.0 3.5 - 5.1 mmol/L CHLORIDE 107 98 - 107 mmol/L CARBON DIOXIDE 23 23 - 31 mmol/L UREA NITROGEN 14 9 - 23 mg/dL CREATININE 0.77 0.58 - 1.12 mg/dL GLUCOSE 150 (H) 82 - 115 mg/dL CALCIUM 9.4 8.8 - 10.0 mg/dL ANION GAP 7 3 - 13 mmol/L eGFR 79.6 >60.0 mL/min/1.73m*2 CBC Collection Time: 06/30/25 12:20 AM Result Value Ref Range Auto WBC 8.5 3.6 - 10.7 10*3/uL RBC 3.98 3.80 - 5.20 10*6/uL Hemoglobin 11.7 11.7 - 16.0 g/dL Hematocrit 35.2 35.0 - 47.0 % MCV 88.4 77.0 - 99.0 fL MCH 29.4 26.0 - 34.0 pg MCHC 33.2 30.5 - 36.0 % RDW 12.8 11.5 - 15.0 % Platelets 219 140 - 440 10*3/uL MPV 9.8 9.0 - 12.7 fL POCT glucose meter Collection Time: 06/30/25 7:24 AM Result Value Ref Range Glucose 160 (H) 70 - 100 mg/dL Lab Results Component Value Date TSH 2.07 10/21/2024 No components found for: "B12" Lab Results Component Value Date VITD25 35 06/06/2025 Reviewed: active problem list, medication list, allergies, notes from last encounter, lab results, imaging [1] Allergies Allergen Reactions Aspirin Hives and Swelling Blotchy, GI, hives Penicillins Blotchiness tolerates cephalosporins 09/2024 Sulfa Antibiotics Hives and Swelling blotchy [2] Current Facility-Administered Medications: acetaminophen (Tylenol) tablet 650 mg, 650 mg, Oral, q6h PRN OR acetaminophen (Tylenol) suppository 650 mg, 650 mg, Rectal, q6h PRN, Darrin Iniguez MD ascorbic acid (Vitamin C) tablet 1,000 mg, 1,000 mg, Oral, Daily, Darrin Iniguez MD, 1,000 mg at 06/30/25 0846 cefTRIAXone (Rocephin) 1,000 mg in sodium chloride 0.9 % 50 mL IVPB Mini-Bag Plus, 1,000 mg, IntraVENous, q24h, Darrin Iniguez MD, Stopped at 06/29/25 2131 cholecalciferol (Vitamin D-3) tablet 5,000 Units, 5,000 Units, Oral, Daily, Darrin Iniguez MD, 5,000 Units at 06/30/25 0846 cyanocobalamin (Vitamin B-12) tablet 1,000 mcg, 1,000 mcg, Oral, Daily, Darrin Iniguez MD, 1,000 mcg at 06/30/25 0846 dextrose 5 % infusion, 100 mL/hr, IntraVENous, PRN, Darrin Iniguez MD dextrose 50 % solution 12.5 g, 12.5 g, IntraVENous, PRN, Darrin Iniguez MD donepezil (Aricept) tablet 10 mg, 10 mg, Oral, Daily, Darrin Iniguez MD, 10 mg at 06/30/25 0846 glucagon (human recombinant) injection 1 mg, 1 mg, IntraMUSCular, PRN, Darrin Iniguez MD glucose oral gel 15 g, 15 g, Oral, PRN, Darrin Iniguez MD insulin glargine (Lantus) injection 20 Units, 20 Units, SubCUTAneous, q AM, Darrin Iniguez MD, 20 Units at 06/30/25 0847 Insulin Lispro (Humalog) injection 0-12 Units, 0-12 Units, SubCUTAneous, TID WC, 2 Units at 06/30/25846 AND Insulin Lispro (Humalog) injection 0-12 Units, 0-12 Units, SubCUTAneous, Nightly, Darrin Iniguez MD Insulin Lispro (Humalog) injection 8 Units, 8 Units, SubCUTAneous, BID AC, Darrin Iniguez MD, 8 Units at 06/30/25846 magnesium oxide (Mag-Ox) tablet 400 mg, 400 mg, Oral, BID, Darrin Iniguez MD, 400 mg at 06/30/25845 melatonin tablet 5 mg, 5 mg, Oral, Nightly, Darrin Iniguez MD, 5 mg at 06/29/252009 ondansetron ODT (Zofran-ODT) disintegrating tablet 4 mg, 4 mg, Oral, q8h PRN OR ondansetron (Zofran) injection 4 mg, 4 mg, IntraVENous, q6h PRN, Darrin Iniguez MD, 4 mg at 06/29/25227 polyethylene glycol (PEG) 3350 (Miralax) packet 17 g, 17 g, Oral, Daily PRN, Darrin Iniguez MD, 17 g at 06/29/252009 pravastatin (Pravachol) tablet 80 mg, 80 mg, Oral, Nightly, Darrin Iniguez MD, 80 mg at 06/29/252009 rivaroxaban (Xarelto) tablet 20 mg, 20 mg, Oral, Daily with breakfast, Darrin Iniguez MD, 20 mg at 06/30/25845 traZODone (Desyrel) tablet 50 mg, 50 mg, Oral, Nightly PRN, Darrin Iniguez MD, 50 mg at 06/29/252009 venlafaxine XR (Effexor XR) 24 hr capsule 150 mg, 150 mg, Oral, Daily with breakfast, Darrin Iniguez MD, 150 mg at 06/30/25 08 [3] Past Medical History: Diagnosis Date Arrhythmia Arthritis Atrial fibrillation (HCC) Breast CA (HCC) Cancer (HCC) 09/30/2012 Left quadrantectomy & axillary LN 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 right temporal /occiptial/ and hypocapal Depression History of blood transfusion Hyperlipidemia Hypertension Mixed Alzheimer's and vascular dementia (CMS/HCC) 01/21/2025 Type 2 diabetes mellitus (HCC) Type II or unspecified type diabetes mellitus without mention of complication, not stated as uncontrolled (HCC) [4] Past Surgical History: Procedure Laterality Date BREAST LUMPECTOMY Left BREAST LUMPECTOMY Left 2012 s/p radiation as well CATARACT EXTRACTION W/ INTRAOCULAR LENS IMPLANT Bilateral 10/2015, 12/2015 SECTION (HISTORICAL) SECTION, LOW TRANSVERSE [id number] CHOLECYSTECTOMY DILATION AND CURETTAGE OF UTERUS FEMUR FRACTURE SURGERY Right 11/30/2019 HIP ARTHROPLASTY Right 01/21/2020 conversion JOINT REPLACEMENT Bilateral ROTATOR CUFF REPAIR Right TOTAL ABDOMINAL HYSTERECTOMY [5] Family History Problem Relation Name Age of Onset Asthma Son Thyroid disease Brother Cancer Mother Cancer Father Thyroid disease Mother Cancer Brother Asthma Son Asthma Son Diabetes Son Charbel Agee documented in this encounter [facility] 06-30-2025 Hospital Discharge instructions Jocelyne Garland RN - 06/30/2025 8:00 AM EST Images from the original note were not included. Continuity of Care Form Patient Name: Beverly Agee : 1945 Admit date: 06/28/2025 Discharge date: 07/01/25 Code Status Order: DNR-CCA Advance Directives: Y Admitting Physician: Waldo Guillen MD PCP: NENO IQBAL MD Discharging Nurse: TYLER Casanova Discharging Hospital Unit/Room#: [id number]/[id number] A Discharging Unit Emergency Contact: Extended Emergency Contact Information Primary Emergency Contact: Charbel Agee (POA) [address]: [address] [place] [id number] [place] [address] Mobile Relation: Child Pasteuriser Operator needed? No Secondary Emergency Contact: Marbin Agee [facility] Mobile Relation: Son Pasteuriser Operator needed? No Past Surgical History: Past Surgical History: Procedure Laterality Date BREAST LUMPECTOMY Left BREAST LUMPECTOMY Left 2013 s/p radiation as well CATARACT EXTRACTION W/ INTRAOCULAR LENS IMPLANT Bilateral 10/2015, 12/2015 SECTION (HISTORICAL) SECTION, LOW TRANSVERSE [id number] CHOLECYSTECTOMY DILATION AND CURETTAGE OF UTERUS FEMUR FRACTURE SURGERY Right 11/30/2019 HIP ARTHROPLASTY Right 01/21/2020 conversion JOINT REPLACEMENT Bilateral ROTATOR CUFF REPAIR Right TOTAL ABDOMINAL HYSTERECTOMY Immunization History: Immunization History Administered Date(s) Administered Influenza Whole 06/27/2012, 05/21/2013 Influenza, High Dose Seasonal, Preservative Free 08/11/2015, 08/07/2016, 06/06/2017, 07/02/2017, 07/21/2019, 06/28/2022 Influenza, High-dose Seasonal, Quadrivalent, Preservative Free 07/04/2021 Influenza, Unspecified 06/27/2012, 05/21/2013, 07/10/2014 Influenza, adjuvanted, trivalent, preservative-free 06/05/2025 Influenza, seasonal, injectable 07/10/2014, 08/11/2015 Pfizer SARS-CoV-2 Vaccination 11/12/2020, 12/02/2020, 06/16/2021 Pneumococcal Conjugate PCV 13 08/11/2015 Pneumococcal Conjugate, Unspecified 08/01/2012 Pneumococcal Polysaccharide PPSV23 08/07/2016 Active Problems: Medical Problems Problem List * (Principal) Urinary tract infection in female Noncompliance with treatment regimen Weakness UTI (urinary tract infection) Hyperglycemia Closed fracture of multiple ribs of right side, initial encounter Complicated UTI (urinary tract infection) Hypoglycemia Fall, initial encounter Moderate malnutrition (CMS/HCC) ([facility]) Mood disorder Overview Signed 06/23/2022 9:33 AM by Corin Lucero MA Last Assessment & Plan: Unsure ofstability of patient on Effexor and Remeron and compliance for diabetic management. Closed fracture of one rib of left side Hemothorax Anticoagulated H/O: CVA (cerebrovascular accident) Tobacco dependence syndrome Hip fracture requiring operative repair, right, closed, initial encounter ([facility]) Memory impairment Examination of participant in clinical trial Malignant neoplasm of upper-outer quadrant of female breast (HCC) Fall Leukocytosis Closed fracture of hip (HCC) Unsteady gait Type 2 diabetes mellitus with hyperglycemia, with long-term current use of insulin (HCC) Acute cystitis E-coli UTI Obesity History of radial keratotomy Psychophysiological insomnia Hypomagnesemia Essential hypertension Overview Signed 06/23/2022 9:33 AM by Corin Lucero MA Last Assessment & Plan: Controlled on losartan. Mixed anxiety depressive disorder Hyperlipidemia Overview Signed 06/23/2022 9:33 AM by Corin Lucero MA Last Assessment & Plan: Uncertain control since patient has not had any lab work done on pravastatin. Atrial fibrillation (HCC) Isolation/Infection: No active isolations No active infections Nurse Assessment: Last Vital Signs: BP 154/74 Pulse 57 Temp 36.6 C (97.9 F) (Temporal) Resp 16 Ht 1.676 m (5' 6") Wt 79.1 kg (174 lb 6.1 oz) SpO2 97% BMI 28.15 kg/m Last documented pain score (0-10 scale): Last Weight: Wt Readings from Last 1 Encounters: 06/28/25 79.1 kg (174 lb 6.1 oz) Mental Status: SEAN Patient Mental Status: oriented and alert, disoriented at times IV Access: SEAN IV Access: None Nursing Mobility/ADLs: Walking Minimal assistance Transfer Minimal assistance Bathing Minimal assistance Dressing Minimal assistance Toileting Minimal assistance Feeding Independent Photography Intern Total assistance Med Delivery yes Wound Care Documentation and Therapy: Wound/Incision 12/12/23 Pressure Injury Sacrum Medial (Active) Number of days: 565 Wound/Incision 12/17/23 Incision Flank Right (Active) Number of days: 561 Wound/Incision 01/11/24 Incision Back Right (Active) Number of days: 536 Wound/Incision 01/12/24 Traumatic Ischium Right;Lateral (Active) Number of days: 534 Wound/Incision 06/28/25 Pressure Injury Buttock Left;Medial (Active) Site Assessment Purple;Blanchable erythema 06/29/252009 Lisa-Wound Assessment Blanchable erythema 06/29/25 2010 Odor None 06/29/252009 Drainage Amount None 06/29/252009 Treatments Site care;Moisture barrier ointment 06/29/252009 Primary Dressing Open to air 06/29/252009 Number of days: 2 Elimination: Continence: Bowel: no Bladder: no Urinary Catheter: None Colostomy/Ileostomy/Ileal Conduit: None Date of Last BM: 06/27 Intake/Output Summary (Last 24 hours) at 06/30/2025 0800 Last data filed at 06/29/2025 1735 Gross per 24 hour Intake -- Output 500 ml Net -500 ml I/O last 3 completed shifts: In: - (0 mL/kg) Out: 1200 (15.2 mL/kg) [Urine:1200 (0.4 mL/kg/hr)] Weight: 79.1 kg Safety Concerns: at risk for falls Impairments/Disabilities: none Nutrition Therapy: Current Nutrition Therapy: Oral diet: general Routes of Feeding: oral Liquids: no restrictions Daily Fluid Restriction: no Last Modified Barium Swallow with Video (Video Swallowing Test): not done Treatments at the Time of Hospital Discharge: Respiratory Treatments: Oxygen Therapy: is not on home oxygen therapy. Ventilator: No ventilator support Rehab Therapies: physical therapy and occupational therapy Weight Bearing Status/Restrictions: no restriction Other Medical Equipment (for information only, NOT a DME order): none Other Treatments: Patient's personal belongings (please select all that are sent with patient): Cell phone, scrap charger, clothing, dentures, glasses RN SIGNATURE: MANAGEMENT/SOCIAL WORK SECTION Inpatient Status Date: OBS 06/28/25 Discharging to Facility/ Agency Name: [facility] Address: [address] [place] [address] Dialysis Facility (if applicable) Name: Address: Dialysis Schedule: Phone: Fax: Hydroelectric Systems Technician/Roll Dough Divider signature: ICIAN SECTION Name: Beverly Agee Prognosis: good Condition at Discharge: stable Rehab Potential (if transferring to Rehab): good Recommended Labs or Other Treatments After Discharge: BMP The individual is being admitted to a nursing facility directly from an [facility] or a unit of a [facility] that is not operated by or licensed by [facility] under section 5119.14 or 5160-3-15.1 5 The individual requires the level of services provided by a nursing facility for the condition for which he or she was treated in the hospital and, Physician Certification: I certify the above information and transfer of Beverly Agee is necessary for the continuing treatment of the diagnosis listed and that she requires intermediate facility for less than 30 days. Update Admission H&P: No change in H&P PHYSICIAN SIGNATURE: The following attachments cannot be sent through Care Everywhere.Acute Cystitis Discharge Instructions (Bengali)Nitrofurantoin, ADULT (Bengali)documented in this encounter [facility] 06-29-2025 Note Referral placed to [facility] request. Await review and response regarding ability to accept. [facility] notified. [facility] 06-29-2025 Progress note Formatting of t his note might be different from the original. Referral placed to [facility] via [facility] per [facility] request. Await review and response regarding ability to accept. TCC notified. [facility] 06-29-2025 Progress note Formatting of t his note might be different from the original. Care Managment Initial Assessment Date: 06/29/2025 Patient Name: Beverly Agee : 1945 Patient Information Source of Information: Patient Honing Machine Try Out Setter Name/Contact Information: Charbel sauceda via TC Cognition/Language: Impaired, Confused at baseline Permission given to speak with patient plastic products sales representative/caregiver as indicated: Yes Confirmation of Payer with patient/family: Yes [place]: No Confirmation of Primary Care Physician: Confirmed PCP Name: Neno Iqbal Seen in last 2 years?: Yes Primary Caregiver: Self If assistance needed, confirmed caregiver ready, willing and able to care for patient at discharge: No Confirmed with: sohail Barger Living Arrangements Current Residence: House Number of Floors 1 Number of Entry Steps: 2 Bed/Bath Levels: Both first floor Lives with: Alone Support Systems: Children, Family members, Home care staff Activities of Daily Living Ambulation: Independent Bathing/Dressing: Independent (son sits in bedroom while patient showers as she has a fear of falling) Elimination/Continence/Toileting: Independent Feeding: Independent Who Assists with Activities of Daily Living: Instrumental Activities of Daily Living Prescription Coverage: Yes Pharmacy Used: [facility] [address] [facility] [address] Medication Management: Prescription pick-up Who assists with medication securing and setup?: sohail Barger Transportation/Shopping: Assistance Provider Transportation/Shopping Assistance Provider Name: sohail Barger Transportation Mode: Car Needs Assistance with Transportation at Discharge: Comments (TBD) Meal Preparation: Independent Laundry/Cleaning: Independent (assist PRN) Finances/Bill Paying: Assistance Provider Finances/Bill Payer Assistance Provider Name: sohail Barger Communication: Independent Types of Care Services/Equipment Utilized Care Services: Skilled Home Health Services Care Services Provider Name: SOURAV since home from SNF 1 week ago Durable Medical Equipment: Walker, Wheelchair (standard or power), Shower Seat Patient's Goal/Discharge Plan Patient expects to be discharged to: SNF Discharge Planning Actions: Continue to follow, [facility] Facility referral indicated [place] of choice: [place] of choice discussed, Choice list provided Patient's Choice Rights and [employer] and Collaborative Relationships Disclosed as Indicated for Post-Acute Care: Yes Interdisciplinary Team Engagement: PT/OT Social Work Referral for: Additional Information: Introduced self and role to patient son ANGEL Barger via TC. Patient admitted with change in mental statues. +UA on iv abx. Discussed with Charbel that PT is recommending SNF. He is agreeable and stated that she has been to [facility] in the past and that would be his first choice. INSURANCE RISK MANAGER tasked to place referral. Juliana Rodriguez RN [facility] 06-29-2025 Patient's home Note Patient is currently active with [facility]. The patients current certification period will on 08/21/25. The patient is currently receiving SN/PT/OT services through the agency. Bowling Ball Marker to continue to follow. [facility] 06-29-2025 Nurse Note During admission interview, pt stated that she does not know what medications she takes, but that her son would. Call placed to sonCharbel, and home medications reviewed with him. Son stated that he normally gives pt all of her medications around 3pm- when he gets off work- including the multiple doses of fast acting insulin, all at once. Instead of twice daily like ordered. Pt and son would benefit from further medication education. [facility] 06-28-2025 Emergency department Note Stable for transport. Admit uti/ams from home alone. Tolerating atb without adverse ss noted. Responds to verbal. Brief c/d/I. Urine collection device in place. Alert to self location and situation not date. Vss and updated. Unlabored. Anxious at times. States "I dont know what's I should be doing" [facility] 06-28-2025 Emergency department Note Stable for transport. Admit uti/ams from home alone. Tolerating atb without adverse ss noted. Responds to verbal. Brief c/d/I. Urine collection device in place. Alert to self location and situation not date. Vss and updated. Unlabored. Anxious at times. States "I dont know what's I should be doing" Pt's saturated brief removed. Placed on a purwick after it was explained to pt and pt agreeable to it. EMERGENCY DEPARTMENT ENCOUNTER Pt Name: Beverly Agee Birthdate 1945 Date of evaluation: 06/28/2025 ED Provider: Annabel Ferreira DO CHIEF COMPLAINT Chief Complaint Patient presents with Altered Mental Status Pt from home, lives alone. Recently admitted for a fall. Pt has no complaints. Pt is afraid to fall and very emotional during triage HISTORY OF PRESENT ILLNESS (Location/Symptom, Timing/Onset, Context/Setting, Quality, Duration, Modifying Factors, Severity) Note limiting factors. I wore appropriate PPE for the entirety of this encounter. HPI Beverly Agee is a 79 y.o. who presents to the emergency department with altered mental status. The patient has a history of dementia, HTN, HLD, T2DM, paroxysmal A-fib on Xarelto. The patient was recently admitted to the hospital from 06/05 to 06/09 after being found down on the floor for an unknown amount of time. The patient was found at that time to have a urinary tract infection for which she completed an antibiotic course. Per EMS report the patient had family visiting the home who called them for a change in her mental status. Patient is currently oriented to self only. Nursing Notes were reviewed. Limitations to history: Altered mental status/confusion Outside historians: EMS REVIEW OF SYSTEMS Review of Systems Unable to perform ROS: Dementia Pertinent positives and negatives as per HPI. PAST MEDICAL HISTORY Medical History[1] SURGICAL HISTORY Surgical History[2] CURRENT MEDICATIONS Previous Medications ASCORBIC ACID (VITAMIN C) 500 MG TABLET Take 1,000 mg by mouth daily. CALCIUM CARBONATE (CALCIUM 600 PO) Take 1 tablet by mouth daily. CHOLECALCIFEROL (VITAMIN D3) 25 MCG (1000 UT) TABLET Take 5,000 Units by mouth daily. 125mcg CONTINUOUS GLUCOSE SENSOR ([employer] G7 SENSOR) MISC 1 Device as needed. Use a new sensor every 10 days. CYANOCOBALAMIN (VITAMIN B-12) 1000 MCG TABLET Take 1 tablet (1,000 mcg) by mouth daily. DONEPEZIL (ARICEPT) 10 MG TABLET Take 1 tablet (10 mg) by mouth daily. [facility] UNIFINE PENTIPS PLUS 32G X 4 MM MISC use 1 (ONE) needle FOUR TIMES DAILY FENOFIBRATE (TRICOR) 54 MG TABLET Take 1 tablet (54 mg) by mouth daily. INSULIN GLARGINE (LANTUS) 100 UNIT/ML INJECTION Inject 20 Units under the skin every morning. INSULIN LISPRO (HUMALOG) 100 UNIT/ML SOLUTION INJECTION Inject 8 Units under the skin 2 times daily (before meals). LOSARTAN (COZAAR) 25 MG TABLET Take 1 tablet (25 mg) by mouth daily. MAGNESIUM OXIDE (MAG-OX) 400 (240 MG) MG TABLET Take 1 tablet (400 mg) by mouth 2 times daily. MELATONIN 5 MG TABLET Take 1 tablet (5 mg) by mouth Nightly. NYSTATIN (MYCOSTATIN) OINTMENT Apply topically 2 times daily. PRAVASTATIN (PRAVACHOL) 80 MG TABLET Take 1 tablet (80 mg) by mouth in the morning. RIVAROXABAN (XARELTO) 20 MG TABLET TAKE 1 TABLET BY MOUTH EVERY MORNING WITH BREAKFAST TRAZODONE (DESYREL) 50 MG TABLET Take 1 tablet (50 mg) by mouth Nightly as needed for sleep. VENLAFAXINE XR (EFFEXOR XR) 150 MG 24 HR CAPSULE Take 1 capsule (150 mg) by mouth daily (with breakfast). Do not crush or chew. ALLERGIES Aspirin, Penicillins, and Sulfa antibiotics FAMILY HISTORY Family History[3] SOCIAL HISTORY Social History[4] SCREENINGS PHYSICAL EXAM ED Triage Vitals Temp Pulse Resp BP -- -- -- -- SpO2 Temp src Heart Rate Source Patient Position -- -- -- -- BP Location FiO2 (%) -- -- Physical Exam Constitutional: General: She is not in acute distress. Comments: Patient is anxious appearing, confused. Patient appears disheveled with dirty clothing and socks. Cardiovascular: Rate and Rhythm: Normal rate and regular rhythm. Heart sounds: Normal heart sounds. Pulmonary: Effort: Pulmonary effort is normal. No respiratory distress. Breath sounds: No wheezing. Abdominal: General: Abdomen is flat. There is no distension. Palpations: Abdomen is soft. Tenderness: There is abdominal tenderness. Comments: Tenderness to left lower quadrant. No guarding. Musculoskeletal: Right lower leg: No edema. Left lower leg: No edema. Skin: General: Skin is warm and dry. Neurological: Mental Status: She is alert. Sensory: No sensory deficit. Motor: No weakness. Coordination: Coordination normal. Comments: Oriented to self only. DIAGNOSTIC RESULTS RADIOLOGY (Per Emergency Physician): Interpretation per the Radiologist below, if available at the time of this note: CT abdomen pelvis w contrast Final Result 1. Diffuse bladder wall thickening. Recommend correlation with urinalysis. 2. Colonic diverticulosis. 3. Atherosclerotic changes, as detailed above. Report Dictated on Electronically Signed By: Dolores Castro MD Electronically Signed Date/Time: 06/28/2025 4:[address] head wo IV contrast Final Result 1. No acute intracranial findings. 2. Probable chronic ischemic and atrophic changes. Report Dictated on Electronically Signed By: Floyd Nelson MD Electronically Signed Date/Time: 06/28/2025 4:19 PM EST XR chest 1 view Final Result No acute cardiopulmonary abnormality. Stable mild prominence of the cardiac silhouette. Report Dictated on Electronically Signed By: Dolores Castro MD Electronically Signed Date/Time: 06/28/2025 3:16 PM EST LABS: Labs Reviewed CBC WITH AUTO DIFFERENTIAL - Abnormal Result Value Auto WBC 10.1 RBC 4.70 Hemoglobin 13.8 Hematocrit 41.9 MCV 89.1 MCH 29.4 MCHC 32.9 RDW 13.0 Platelets 232 MPV 10.0 nRBC 0.0 Neutrophils Relative 63.3 Lymphocytes Relative 26.9 Monocytes Relative 5.7 Eosinophils Relative 3.0 Basophils Relative 0.6 Immature Grans % 0.5 Neutrophils Absolute 6.4 Lymphocytes Absolute 2.7 Monocytes Absolute 0.6 Eosinophils Absolute 0.3 Basophils Absolute 0.1 Immature Grans Absolute 0.1 (*) COMPREHENSIVE METABOLIC PANEL - Abnormal SODIUM 138 POTASSIUM 4.6 CHLORIDE 104 CARBON DIOXIDE 24 ANION GAP 10 UREA NITROGEN 12 CREATININE 0.93 GLUCOSE 164 (*) CALCIUM 10.1 (*) AST (SGOT) 15 ALT <6 ALKALINE PHOSPHATASE 59 ALBUMIN 3.7 BILIRUBIN, TOTAL 0.5 TOTAL PROTEIN 7.0 eGFR 63.4 COMPLETE URINALYSIS WITH REFLEX TO CULTURE - Abnormal Color, Urine Yellow Clarity, Urine Extra Turbid (*) pH, Urine 8.0 Leukocytes, Urine 500 (*) Nitrite, Urine Positive (*) Protein, Urine 30 (*) Glucose, Urine Normal Bilirubin, Urine Negative Ketones, Urine Negative Urobilinogen, Urine Normal Blood, Urine 0.06 (*) RBC, Urine 11-25 (*) WBC, Urine >100 (*) Squamous Epithelial, Urine 0-2 Non-Squamous Epithalial Cells, Urine 0-2 (*) Bacteria, Urine Few (*) Hyaline Casts, Urine Negative WBC Clumps, Urine Many (*) SPECIFIC GRAVITY OF URINE (NUMERIC) 1.013 Narrative: This specimen has been reflexed to urine culture. BLOOD CULTURE - Normal Blood Culture Blood culture incubation started Narrative: Blood Collection Site: Right Forearm BLOOD CULTURE - Normal Blood Culture Blood culture incubation started Narrative: Blood Collection Site: Left Hand LACTIC ACID WITH REFLEX - Normal LACTIC ACID 1.3 HIGH SENSITIVITY TROPONIN, SERIAL BASELINE - Normal Troponin HS Serial Baseline <3 HIGH SENSITIVITY TROPONIN, SERIAL, SECOND TEST - Normal 2h Troponin HS (Serial 2nd Troponin) <3 URINE CULTURE All other labs were within normal range or not returned as of this dictation. EMERGENCY DEPARTMENT COURSE and DIFFERENTIAL DIAGNOSIS/MDM: Vitals: Vitals: 06/28/25 1445 BP: 123/70 Pulse: 71 Resp: 16 Temp: 36.6 C (97.9 F) TempSrc: Oral SpO2: 100% Weight: 79.4 kg (175 lb) Height: 1.676 m (5' 6") The patient presented with a chief complaint of AMS. The differential diagnosis associated with this patient's presentation includes sepsis versus UTI versus diverticulitis versus colitis versus dehydration versus electrolyte derangement versus arrhythmia. Our workup consisted of ordering/reviewing CT abdomen/pelvis, CT head, CXR, EKG, blood cultures, CBC, CMP, lactic acid, troponin, urinalysis. As the patient had a recent admission for sepsis secondary to UTI and has a change in her mental status she would be covered with vancomycin and cefepime for possible septic cause of her change in mental status. She was also given a liter fluid bolus. Patient does not appear septic, she has no white count, lactic acid within normal limits. Urinalysis is concerning for infection which explains her altered mental status. CT abdomen/pelvis also shows diffuse bladder wall thickening consistent with this UTI. CT head negative for acute process. The patient will be admitted to the hospital for further IV antibiotics to treat her urinary tract infection. FINAL IMPRESSION 1. Urinary tract infection in female 2. Altered mental status, unspecified altered mental status type DISPOSITION Admit 06/28/2025 03:53:58 PM PATIENT REFERRED TO: No follow-up provider specified. DISCHARGE MEDICATIONS: New Prescriptions No medications on file (Comment: Please note this report has been produced using speech recognition software and may contain errors related to that system including errors in grammar, punctuation, and spelling, as well as words and phrases that may be inappropriate. 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 Depression History of blood transfusion Hyperlipidemia Hypertension Mixed Alzheimer's and vascular dementia ([facility]/HCC) 01/21/2025 Type 2 diabetes mellitus (HCC) Type II or unspecified type diabetes mellitus without mention of complication, not stated as uncontrolled ([facility]) [2] Past Surgical History: Procedure Laterality Date BREAST LUMPECTOMY Left BREAST LUMPECTOMY Left 2012 s/p radiation as well CATARACT EXTRACTION W/ INTRAOCULAR LENS IMPLANT Bilateral 10/2015, 12/2015 SECTION (HISTORICAL) SECTION, LOW TRANSVERSE [id number] CHOLECYSTECTOMY DILATION AND CURETTAGE OF UTERUS FEMUR FRACTURE SURGERY Right 11/30/2019 HIP ARTHROPLASTY Right 01/21/2020 conversion JOINT REPLACEMENT Bilateral ROTATOR CUFF REPAIR Right TOTAL ABDOMINAL HYSTERECTOMY [3] Family History Problem Relation Name Age of Onset Asthma Son Thyroid disease Brother Cancer Mother Cancer Father Thyroid disease Mother Cancer Brother Asthma Son Asthma Son Diabetes Son Charbel Agee [4] Social History Socioeconomic History Marital status: Number of children: 3 Tobacco Use Smoking status: Every Day Current packs/day: 1.00 Average packs/day: 1 pack/day for 125.8 years (125.8 ttl pk-yrs) Types: Cigarettes Start date: 08/27/1959 Smokeless tobacco: Never Vaping Use Vaping status: Never Used Substance and Sexual Activity Alcohol use: Not Currently Alcohol/week: 0.0 standard drinks of alcohol Drug use: Never Sexual activity: Not Currently Partners: Male control/protection: None Social Drivers of Health Financial Resource Strain: Low Risk (07/04/2021) Received from [facility] Overall Financial Resource Strain (CARDIA) Difficulty of Paying Living Expenses: Not hard at all Food Insecurity: No Food Insecurity (06/05/2025) Hunger Vital Sign Worried About Running Out of Food in the Last Year: Never true Ran Out of Food in the Last Year: Never true Transportation Needs: No Transportation Needs (06/05/2025) PRAPARE - Transportation Lack of Transportation (Medical): No Lack of Transportation (Non-Medical): No Intimate Partner Violence: Not At Risk (06/05/2025) Humiliation, Afraid, Rape, and Kick questionnaire Fear of Current or Ex-Partner: No Emotionally Abused: No Physically Abused: No Sexually Abused: No Housing Stability: Low Risk (06/05/2025) Housing Stability Vital Sign Unable to Pay for Housing in the Last Year: No Number of Times Moved in the Last Year: 0 Homeless in the Last Year: No Annabel Ferreira DO Resident 06/28/25 1711 Cosigned by Marbin Ambrose MD at 06/28/2025 6:01 PM EST Emergency Department Encounter [facility] EMERGENCY DEPT Patient: Beverly Agee : 1945 Date of Evaluation: 06/28/2025 ED Supervising Physician: Marbin Ambrose MD I independently examined and evaluated Beverly Agee. This will serve as my Supervisory note and shared attestation. I did perform a substantive portion of the visit including all aspects of the Medical Decision Making. I wore appropriate PPE for the entirety of this encounter. History: In brief, Beverly Agee is a 79 y.o. female that presents to the emergency department from home. Family called because they were concerned about the patient. She has had change in mental status. She has had a recent fall and was recently admitted earlier in the month of May. Patient herself is extremely angry that she is here. She screams that she does not want to be here. Focused exam: On examination the patient is a older female found lying on a cart. She is poorly cooperative. She moves all 4 extremities without difficulty. Her oral mucosa membranes are dry. Chest is clear. Normal cardiac exam. Abdomen is soft and is [employer]. Differential Diagnosis: Differential diagnosis includes potential causes of falls including infection. This may involve a urinary tract infection which the patient has had issues with in the past. Diagnostic testing undertaken, as well as those tests considered but not ordered: Laboratory work will be obtained on this patient including urinalysis. ED testing and evaluation will be obtained to help differentiate these diagnostic possibilities and determine the most likely cause. Brief ED course/MDM: Patient has remained stable in the emergency department. Disposition will be based on results of diagnostic testing, response to therapy, and reassessment. Sources of History: I evaluated other historical sources including previous outpatient records and admission records. Patient is aware of care plan. All diagnostic, treatment, and disposition decisions were made by myself in conjunction with the Resident. I also supervised virk portions of any procedures performed by the Resident. For all further details of the patient's emergency department visit, please see their documentation. (Comment: Please note this report has been produced using speech recognition software and may contain errors related to that system including errors in grammar, punctuation, and spelling, as well as words and phrases that may be inappropriate. If there are any questions or concerns please feel free to contact the dictating provider for clarification.) Marbin Ambrose MD [employer] Marbin Ambrose MD 06/28/25 [id number] documented in this encounter [facility] 06-28-2025 History and physical note History and Physical Admit Date: 06/28/2025 PCP: NENO IQBAL MD CHIEF COMPLAINT: confusion HISTORY OF PRESENT ILLNESS: Beverly Agee is a 79 y.o. who presents to the emergency department with altered mental status. The patient has a history of dementia, HTN, HLD, T2DM, paroxysmal A-fib on Xarelto. The patient was recently admitted to the hospital from 06/05 to 06/09 after being found down on the floor for an unknown amount of time. The patient was found at that time to have a urinary tract infection for which she completed an antibiotic course. Per EMS report the patient had family visiting the home who called them for a change in her mental status. Noted some pyuria in ED Pt reports she feels weak in general No new urine symptoms Past Medical History: Medical History[1] Past Surgical History: Surgical History[2] Social History: Social History Socioeconomic History Marital status: Spouse name: Not on file Number of children: 3 Years of education: Not on file Highest education level: Not on file Occupational History Not on file Tobacco Use Smoking status: Every Day Current packs/day: 1.00 Average packs/day: 1 pack/day for 125.8 years (125.8 ttl pk-yrs) Types: Cigarettes Start date: 08/27/1959 Smokeless tobacco: Never Vaping Use Vaping status: Never Used Substance and Sexual Activity Alcohol use: Not Currently Alcohol/week: 0.0 standard drinks of alcohol Drug use: Never Sexual activity: Not Currently Partners: Male control/protection: None Other Topics Concern Not on file Social History Narrative Not on file Social Drivers of Health Financial Resource Strain: Low Risk (07/04/2021) Received from [facility] Overall Financial Resource Strain (CARDIA) Difficulty of Paying Living Expenses: Not hard at all Food Insecurity: No Food Insecurity (06/05/2025) Hunger Vital Sign Worried About Running Out of Food in the Last Year: Never true Ran Out of Food in the Last Year: Never true Transportation Needs: No Transportation Needs (06/05/2025) PRAPARE - Transportation Lack of Transportation (Medical): No Lack of Transportation (Non-Medical): No Physical Activity: Not on file Stress: Not on file Social Connections: Not on file Intimate Partner Violence: Not At Risk (06/05/2025) Humiliation, Afraid, Rape, and Kick questionnaire Fear of Current or Ex-Partner: No Emotionally Abused: No Physically Abused: No Sexually Abused: No Housing Stability: Low Risk (06/05/2025) Housing Stability Vital Sign Unable to Pay for Housing in the Last Year: No Number of Times Moved in the Last Year: 0 Homeless in the Last Year: No Family History: Family History[3] Medications Prior to Admission: Current Medications[4] Allergies: Aspirin, Penicillins, and Sulfa antibiotics REVIEW OF SYSTEMS: Constitutional: Negative for fever, chills, Respiratory: Negative for shortness of breath, wheezing and stridor. Cardiovascular: Negative for chest pain. Gastrointestinal: Negative for nausea, Genitourinary: Negative for dysuria Musculoskeletal: Negative for myalgias and joint swelling. Skin: Negative for rash. Neurological: Negative for dizziness, tremors, Vitals: BP 123/70 Pulse 71 Temp 36.6 C (97.9 F) (Oral) Resp 16 Ht 5' 6" (1.676 m) Wt 175 lb (79.4 kg) SpO2 100% BMI 28.25 kg/m Pulse Ox: SpO2 Av % Min: 100 % Max: 100 % Supplemental O2: PHYSICAL EXAM: CONSTITUTIONAL: awake, HEENT: Normocephalic, PERRLA NECK: no JVD, no LAD HEART: RRR, LUNGS: clear to auscultation bilaterally, no wheezes, crackles, or rhonchi. ABDOMEN: soft/NT/ND, positive BS MUSCULOSKELETAL: negative for edema, +2 pulses SKIN: intact Neuro: No obvious focal deficits DATA: Recent Results (from the past 24 hours) CBC auto differential Collection Time: 06/28/25 2:52 PM Result Value Ref Range Auto WBC 10.1 3.6 - 10.7 10*3/uL RBC 4.70 3.80 - 5.20 10*6/uL Hemoglobin 13.8 11.7 - 16.0 g/dL Hematocrit 41.9 35.0 - 47.0 % MCV 89.1 77.0 - 99.0 fL MCH 29.4 26.0 - 34.0 pg MCHC 32.9 30.5 - 36.0 % RDW 13.0 11.5 - 15.0 % Platelets 232 140 - 440 10*3/uL MPV 10.0 9.0 - 12.7 fL nRBC 0.0 0.0 - 2.0 /100 WBCs Neutrophils Relative 63.3 38.0 - 82.0 % Lymphocytes Relative 26.9 15.0 - 45.0 % Monocytes Relative 5.7 5.0 - 13.0 % Eosinophils Relative 3.0 0.0 - 6.0 % Basophils Relative 0.6 0.0 - 2.0 % Immature Grans % 0.5 0.0 - 2.0 % Neutrophils Absolute 6.4 1.8 - 7.5 10*3/uL Lymphocytes Absolute 2.7 1.0 - 4.3 10*3/uL Monocytes Absolute 0.6 0.0 - 0.9 10*3/uL Eosinophils Absolute 0.3 0.0 - 0.5 10*3/uL Basophils Absolute 0.1 0.0 - 0.2 10*3/uL Immature Grans Absolute 0.1 (H) <0.1 10*3/uL Comprehensive metabolic panel Collection Time: 06/28/25 2:52 PM Result Value Ref Range SODIUM 138 136 - 145 mmol/L POTASSIUM 4.6 3.5 - 5.1 mmol/L CHLORIDE 104 98 - 107 mmol/L CARBON DIOXIDE 24 23 - 31 mmol/L ANION GAP 10 3 - 13 mmol/L UREA NITROGEN 12 9 - 23 mg/dL CREATININE 0.93 0.58 - 1.12 mg/dL GLUCOSE 164 (H) 82 - 115 mg/dL CALCIUM 10.1 (H) 8.8 - 10.0 mg/dL AST (SGOT) 15 <34 U/L ALT <6 <30 U/L ALKALINE PHOSPHATASE 59 40 - 150 U/L ALBUMIN 3.7 3.1 - 4.5 g/dL BILIRUBIN, TOTAL 0.5 <1.2 mg/dL TOTAL PROTEIN 7.0 6.4 - 8.3 g/dL eGFR 63.4 >60.0 mL/min/1.73m*2 Lactic acid with reflex Collection Time: 06/28/25 2:52 PM Result Value Ref Range LACTIC ACID 1.3 0.5 - 2.2 mmol/L Blood culture Site #1 - Suspected Infection Collection Time: 06/28/25 2:52 PM Specimen: Blood, Venous Result Value Ref Range Blood Culture Blood culture incubation started Blood culture Site #2 - Suspected Infection Collection Time: 06/28/25 2:52 PM Specimen: Blood, Venous Result Value Ref Range Blood Culture Blood culture incubation started Serial Troponin, High Sensitivity Collection Time: 06/28/25 2:52 PM Result Value Ref Range Troponin HS Serial Baseline <3 <=14 ng/L ECG 12 lead Collection Time: 06/28/25 2:56 PM Result Value Ref Range Heart Rate 71 bpm QRSD Interval 88 ms QT Interval 409 ms QTC Interval 446 ms P Gifford -10 degrees QRS Giff[place] -48 degrees T Wave G[place] 26 degrees NC Interval 184 ms Urinalysis Complete with reflex to Culture Collection Time: 06/28/25 4:33 PM Result Value Ref Range Color, Urine Yellow Lt. Yellow Clarity, Urine Extra Turbid (A) Clear pH, Urine 8.0 5.0 - 8.0 pH Leukocytes, Urine 500 (A) Negative Veronica/uL Nitrite, Urine Positive (A) Negative Protein, Urine 30 (A) Negative mg/dL Glucose, Urine Normal Normal (<70) mg/dL Bilirubin, Urine Negative Negative mg/dL Ketones, Urine Negative Negative mg/dL Urobilinogen, Urine Normal Normal (0-1) mg/dL Blood, Urine 0.06 (A) Negative mg/dL RBC, Urine 11-25 (A) 0 - 2 /HPF WBC, Urine >100 (A) 0 - 5 /HPF Squamous Epithelial, Urine 0-2 3 - 5 /HPF Non-Squamous Epithalial Cells, Urine 0-2 (A) Negative /HPF Bacteria, Urine Few (A) Negative /HPF Hyaline Casts, Urine Negative Negative /LPF WBC Clumps, Urine Many (A) Negative /HPF SPECIFIC GRAVITY OF URINE (NUMERIC) 1.013 1.005 - 1.030 Troponin, High Sensitivity, Serial, Second Test Collection Time: 06/28/25 4:34 PM Result Value Ref Range 2h Troponin HS (Serial 2nd Troponin) <3 <=14 ng/L I reviewed: [x] laboratory results [x] radiographic results At the time of today's encounter. Discussed management with the ED provider and agree with hospitalization. IMPRESSION: Principal Problem: Urinary tract infection in female Active Problems: H/O: CVA (cerebrovascular accident) Memory impairment Obesity Atrial fibrillation (HCC) Dementia DM Encephalopathy in setting of underlying dementia- better Cont abx and await urine cx PT/OT Is established with geriatric team for her dementia, consider re consult. Was dc to SNF at last admit, remains fall risk for home Due to the review of above complex data and the acute illness and/or undiagnosed new problem which may pose significant morbidity, The complexity of this case is: High Orders Placed This Encounter Procedures Blood culture Site #1 - Suspected Infection Blood culture Site #2 - Suspected Infection Urine culture XR chest [address] abdomen pelvis w contrast CT head wo IV contrast CBC auto differential Comprehensive metabolic panel Lactic acid with reflex Urinalysis Complete with reflex to Culture Serial Troponin, High Sensitivity Troponin, High Sensitivity, Serial, Second Test Vital Signs Straight cath if unable to void ECG 12 lead Insert peripheral IV Admit to inpatient Code status: Prior Please forward a copy of this H&P to the patient's PCP. Thank you. Darrin Iniguez MD Medications Reconciliation: Medications were reviewed in chart but unable to verify accurate with patient 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 right temporal /occiptial/ and hypocapal Depression History of blood transfusion Hyperlipidemia Hypertension Mixed Alzheimer's and vascular dementia (CMS/HCC) 01/21/2025 Type 2 diabetes mellitus (HCC) Type II or unspecified type diabetes mellitus without mention of complication, not stated as uncontrolled (HCC) [2] Past Surgical History: Procedure Laterality Date BREAST LUMPECTOMY Left BREAST LUMPECTOMY Left 2012 s/p radiation as well CATARACT EXTRACTION W/ INTRAOCULAR LENS IMPLANT Bilateral 10/2015, 12/2015 SECTION (HISTORICAL) SECTION, LOW TRANSVERSE [id number] CHOLECYSTECTOMY DILATION AND CURETTAGE OF UTERUS FEMUR FRACTURE SURGERY Right 11/30/2019 HIP ARTHROPLASTY Right 01/21/2020 conversion JOINT REPLACEMENT Bilateral ROTATOR CUFF REPAIR Right TOTAL ABDOMINAL HYSTERECTOMY [3] Family History Problem Relation Name Age of Onset Asthma Son Thyroid disease Brother Cancer Mother Cancer Father Thyroid disease Mother Cancer Brother Asthma Son Asthma Son Diabetes Son Charbel Félix [4] No current facility-administered medications for this encounter. Current Outpatient Medications: ascorbic acid (Vitamin C) 500 MG tablet, Take 1,000 mg by mouth daily., Disp: , Rfl: Calcium Carbonate (CALCIUM 600 PO), Take 1 tablet by mouth daily., Disp: , Rfl: cholecalciferol (Vitamin D3) 25 MCG (1000 UT) tablet, Take 5,000 Units by mouth daily. 125mcg, Disp: , Rfl: Continuous Glucose Sensor (Dexcom G7 Sensor) [facility] [place], 1 Device as needed. Use a new sensor every 10 days., Disp: , Rfl: cyanocobalamin (Vitamin B-12) 1000 MCG tablet, Take 1 tablet (1,000 mcg) by mouth daily., Disp: , Rfl: donepezil (Aricept) 10 MG tablet, Take 1 tablet (10 mg) by mouth daily., Disp: 90 tablet, Rfl: 1 Drug [place] Unifine Pentips Plus 32G X 4 MM misc, use 1 (ONE) needle FOUR TIMES DAILY, Disp: , Rfl: fenofibrate (Tricor) 54 MG tablet, Take 1 tablet (54 mg) by mouth daily., Disp: 30 tablet, Rfl: 0 insulin glargine (Lantus) 100 UNIT/ML injection, Inject 20 Units under the skin every morning., Disp: , Rfl: Insulin Lispro (Humalog) 100 UNIT/ML solution injection, Inject 8 Units under the skin 2 times daily (before meals)., Disp: , Rfl: losartan (Cozaar) 25 MG tablet, Take 1 tablet (25 mg) by mouth daily., Disp: 30 tablet, Rfl: 0 magnesium oxide (Mag-Ox) 400 (240 Mg) MG tablet, Take 1 tablet (400 mg) by mouth 2 times daily., Disp: 30 tablet, Rfl: 0 melatonin 5 MG tablet, Take 1 tablet (5 mg) by mouth Nightly., Disp: 30 tablet, Rfl: 0 nystatin (Mycostatin) ointment, Apply topically 2 times daily., Disp: , Rfl: pravastatin (Pravachol) 80 MG tablet, Take 1 tablet (80 mg) by mouth in the morning., Disp: 90 tablet, Rfl: 1 rivaroxaban (Xarelto) 20 MG tablet, TAKE 1 TABLET BY MOUTH EVERY MORNING WITH BREAKFAST, Disp: 90 tablet, Rfl: 1 traZODone (Desyrel) 50 MG tablet, Take 1 tablet (50 mg) by mouth Nightly as needed for sleep., Disp: , Rfl: venlafaxine XR (Effexor XR) 150 MG 24 hr capsule, Take 1 capsule (150 mg) by mouth daily (with breakfast). Do not crush or chew., Disp: , Rfl: [facility] 06-28-2025 Note [facility] 06-28-2025 History and physical note History and Physical Admit Date: 06/28/2025 PCP: NENO IQBAL MD CHIEF COMPLAINT: confusion HISTORY OF PRESENT ILLNESS: Beverly Agee is a 79 y.o. who presents to the emergency department with altered mental status. The patient has a history of dementia, HTN, HLD, T2DM, paroxysmal A-fib on Xarelto. The patient was recently admitted to the hospital from 06/05 to 06/09 after being found down on the floor for an unknown amount of time. The patient was found at that time to have a urinary tract infection for which she completed an antibiotic course. Per EMS report the patient had family visiting the home who called them for a change in her mental status. Noted some pyuria in ED Pt reports she feels weak in general No new urine symptoms Past Medical History: Medical History[1] Past Surgical History: Surgical History[2] Social History: Social History Socioeconomic History Marital status: Spouse name: Not on file Number of children: 3 Years of education: Not on file Highest education level: Not on file Occupational History Not on file Tobacco Use Smoking status: Every Day Current packs/day: 1.00 Average packs/day: 1 pack/day for 125.8 years (125.8 ttl pk-yrs) Types: Cigarettes Start date: 08/27/1959 Smokeless tobacco: Never Vaping Use Vaping status: Never Used Substance and Sexual Activity Alcohol use: Not Currently Alcohol/week: 0.0 standard drinks of alcohol Drug use: Never Sexual activity: Not Currently Partners: Male control/protection: None Other Topics Concern Not on file Social History Narrative Not on file Social Drivers of Health Financial Resource Strain: Low Risk (07/04/2021) Received from [facility] Overall Financial Resource Strain (CARDIA) Difficulty of Paying Living Expenses: Not hard at all Food Insecurity: No Food Insecurity (06/05/2025) Hunger Vital Sign Worried About Running Out of Food in the Last Year: Never true Ran Out of Food in the Last Year: Never true Transportation Needs: No Transportation Needs (06/05/2025) PRAPARE - Transportation Lack of Transportation (Medical): No Lack of Transportation (Non-Medical): No Physical Activity: Not on file Stress: Not on file Social Connections: Not on file Intimate Partner Violence: Not At Risk (06/05/2025) Humiliation, Afraid, Rape, and Kick questionnaire Fear of Current or Ex-Partner: No Emotionally Abused: No Physically Abused: No Sexually Abused: No Housing Stability: Low Risk (06/05/2025) Housing Stability Vital Sign Unable to Pay for Housing in the Last Year: No Number of Times Moved in the Last Year: 0 Homeless in the Last Year: No Family History: Family History[3] Medications Prior to Admission: Current Medications[4] Allergies: Aspirin, Penicillins, and Sulfa antibiotics REVIEW OF SYSTEMS: Constitutional: Negative for fever, chills, Respiratory: Negative for shortness of breath, wheezing and stridor. Cardiovascular: Negative for chest pain. Gastrointestinal: Negative for nausea, Genitourinary: Negative for dysuria Musculoskeletal: Negative for myalgias and joint swelling. Skin: Negative for rash. Neurological: Negative for dizziness, tremors, Vitals: BP 123/70 Pulse 71 Temp 36.6 C (97.9 F) (Oral) Resp 16 Ht 5' 6" (1.676 m) Wt 175 lb (79.4 kg) SpO2 100% BMI 28.25 kg/m Pulse Ox: SpO2 Av % Min: 100 % Max: 100 % Supplemental O2: PHYSICAL EXAM: CONSTITUTIONAL: awake, HEENT: Normocephalic, PERRLA NECK: no JVD, no LAD HEART: RRR, LUNGS: clear to auscultation bilaterally, no wheezes, crackles, or rhonchi. ABDOMEN: soft/NT/ND, positive BS MUSCULOSKELETAL: negative for edema, +2 pulses SKIN: intact Neuro: No obvious focal deficits DATA: Recent Results (from the past 24 hours) CBC auto differential Collection Time: 06/28/25 2:52 PM Result Value Ref Range Auto WBC 10.1 3.6 - 10.7 10*3/uL RBC 4.70 3.80 - 5.20 10*6/uL Hemoglobin 13.8 11.7 - 16.0 g/dL Hematocrit 41.9 35.0 - 47.0 % MCV 89.1 77.0 - 99.0 fL MCH 29.4 26.0 - 34.0 pg MCHC 32.9 30.5 - 36.0 % RDW 13.0 11.5 - 15.0 % Platelets 232 140 - 440 10*3/uL MPV 10.0 9.0 - 12.7 fL nRBC 0.0 0.0 - 2.0 /100 WBCs Neutrophils Relative 63.3 38.0 - 82.0 % Lymphocytes Relative 26.9 15.0 - 45.0 % Monocytes Relative 5.7 5.0 - 13.0 % Eosinophils Relative 3.0 0.0 - 6.0 % Basophils Relative 0.6 0.0 - 2.0 % Immature Grans % 0.5 0.0 - 2.0 % Neutrophils Absolute 6.4 1.8 - 7.5 10*3/uL Lymphocytes Absolute 2.7 1.0 - 4.3 10*3/uL Monocytes Absolute 0.6 0.0 - 0.9 10*3/uL Eosinophils Absolute 0.3 0.0 - 0.5 10*3/uL Basophils Absolute 0.1 0.0 - 0.2 10*3/uL Immature Grans Absolute 0.1 (H) <0.1 10*3/uL Comprehensive metabolic panel Collection Time: 06/28/25 2:52 PM Result Value Ref Range SODIUM 138 136 - 145 mmol/L POTASSIUM 4.6 3.5 - 5.1 mmol/L CHLORIDE 104 98 - 107 mmol/L CARBON DIOXIDE 24 23 - 31 mmol/L ANION GAP 10 3 - 13 mmol/L UREA NITROGEN 12 9 - 23 mg/dL CREATININE 0.93 0.58 - 1.12 mg/dL GLUCOSE 164 (H) 82 - 115 mg/dL CALCIUM 10.1 (H) 8.8 - 10.0 mg/dL AST (SGOT) 15 <34 U/L ALT <6 <30 U/L ALKALINE PHOSPHATASE 59 40 - 150 U/L ALBUMIN 3.7 3.1 - 4.5 g/dL BILIRUBIN, TOTAL 0.5 <1.2 mg/dL TOTAL PROTEIN 7.0 6.4 - 8.3 g/dL eGFR 63.4 >60.0 mL/min/1.73m*2 Lactic acid with reflex Collection Time: 06/28/25 2:52 PM Result Value Ref Range LACTIC ACID 1.3 0.5 - 2.2 mmol/L Blood culture Site #1 - Suspected Infection Collection Time: 06/28/25 2:52 PM Specimen: Blood, Venous Result Value Ref Range Blood Culture Blood culture incubation started Blood culture Site #2 - Suspected Infection Collection Time: 06/28/25 2:52 PM Specimen: Blood, Venous Result Value Ref Range Blood Culture Blood culture incubation started Serial Troponin, High Sensitivity Collection Time: 06/28/25 2:52 PM Result Value Ref Range Troponin HS Serial Baseline <3 <=14 ng/L ECG 12 lead Collection Time: 06/28/25 2:56 PM Result Value Ref Range Heart Rate 71 bpm QRSD Interval 88 ms QT Interval 409 ms QTC Interval 446 ms P Giff[place] -10 degrees QRS Giff[place] -48 degrees T Wave [place] 26 degrees NC Interval 184 ms Urinalysis Complete with reflex to Culture Collection Time: 06/28/25 4:33 PM Result Value Ref Range Color, Urine Yellow Lt. Yellow Clarity, Urine Extra Turbid (A) Clear pH, Urine 8.0 5.0 - 8.0 pH Leukocytes, Urine 500 (A) Negative Veronica/uL Nitrite, Urine Positive (A) Negative Protein, Urine 30 (A) Negative mg/dL Glucose, Urine Normal Normal (<70) mg/dL Bilirubin, Urine Negative Negative mg/dL Ketones, Urine Negative Negative mg/dL Urobilinogen, Urine Normal Normal (0-1) mg/dL Blood, Urine 0.06 (A) Negative mg/dL RBC, Urine 11-25 (A) 0 - 2 /HPF WBC, Urine >100 (A) 0 - 5 /HPF Squamous Epithelial, Urine 0-2 3 - 5 /HPF Non-Squamous Epithalial Cells, Urine 0-2 (A) Negative /HPF Bacteria, Urine Few (A) Negative /HPF Hyaline Casts, Urine Negative Negative /LPF WBC Clumps, Urine Many (A) Negative /HPF SPECIFIC GRAVITY OF URINE (NUMERIC) 1.013 1.005 - 1.030 Troponin, High Sensitivity, Serial, Second Test Collection Time: 06/28/25 4:34 PM Result Value Ref Range 2h Troponin HS (Serial 2nd Troponin) <3 <=14 ng/L I reviewed: [x] laboratory results [x] radiographic results At the time of today's encounter. Discussed management with the ED provider and agree with hospitalization. IMPRESSION: Principal Problem: Urinary tract infection in female Active Problems: H/O: CVA (cerebrovascular accident) Memory impairment Obesity Atrial fibrillation (HCC) Dementia DM Encephalopathy in setting of underlying dementia- better Cont abx and await urine cx PT/OT Is established with geriatric team for her dementia, consider re consult. Was dc to SNF at last admit, remains fall risk for home Due to the review of above complex data and the acute illness and/or undiagnosed new problem which may pose significant morbidity, The complexity of this case is: High Orders Placed This Encounter Procedures Blood culture Site #1 - Suspected Infection Blood culture Site #2 - Suspected Infection Urine culture XR chest [address] abdomen pelvis w contrast CT head wo IV contrast CBC auto differential Comprehensive metabolic panel Lactic acid with reflex Urinalysis Complete with reflex to Culture Serial Troponin, High Sensitivity Troponin, High Sensitivity, Serial, Second Test Vital Signs Straight cath if unable to void ECG 12 lead Insert peripheral IV Admit to inpatient Code status: Prior Please forward a copy of this H&P to the patient's PCP. Thank you. Darrin Iniguez MD Medications Reconciliation: Medications were reviewed in chart but unable to verify accurate with patient 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 right temporal /occiptial/ and hypocapal Depression History of blood transfusion Hyperlipidemia Hypertension Mixed Alzheimer's and vascular dementia (CMS/HCC) 01/21/2025 Type 2 diabetes mellitus (HCC) Type II or unspecified type diabetes mellitus without mention of complication, not stated as uncontrolled (HCC) [2] Past Surgical History: Procedure Laterality Date BREAST LUMPECTOMY Left BREAST LUMPECTOMY Left 2012 s/p radiation as well CATARACT EXTRACTION W/ INTRAOCULAR LENS IMPLANT Bilateral 10/2015, 12/2015 SECTION (HISTORICAL) SECTION, LOW TRANSVERSE [id number] CHOLECYSTECTOMY DILATION AND CURETTAGE OF UTERUS FEMUR FRACTURE SURGERY Right 11/30/2019 HIP ARTHROPLASTY Right 01/21/2020 conversion JOINT REPLACEMENT Bilateral ROTATOR CUFF REPAIR Right TOTAL ABDOMINAL HYSTERECTOMY [3] Family History Problem Relation Name Age of Onset Asthma Son Thyroid disease Brother Cancer Mother Cancer Father Thyroid disease Mother Cancer Brother Asthma Son Asthma Son Diabetes Son Charbel Agee [4] No current facility-administered medications for this encounter. Current Outpatient Medications: ascorbic acid (Vitamin C) 500 MG tablet, Take 1,000 mg by mouth daily., Disp: , Rfl: Calcium Carbonate (CALCIUM 600 PO), Take 1 tablet by mouth daily., Disp: , Rfl: cholecalciferol (Vitamin D3) 25 MCG (1000 UT) tablet, Take 5,000 Units by mouth daily. 125mcg, Disp: , Rfl: Continuous Glucose Sensor (Dexcom G7 Sensor) [facility] [place], 1 Device as needed. Use a new sensor every 10 days., Disp: , Rfl: cyanocobalamin (Vitamin B-12) 1000 MCG tablet, Take 1 tablet (1,000 mcg) by mouth daily., Disp: , Rfl: donepezil (Aricept) 10 MG tablet, Take 1 tablet (10 mg) by mouth daily., Disp: 90 tablet, Rfl: 1 Drug [place] Unifine Pentips Plus 32G X 4 MM misc, use 1 (ONE) needle FOUR TIMES DAILY, Disp: , Rfl: fenofibrate (Tricor) 54 MG tablet, Take 1 tablet (54 mg) by mouth daily., Disp: 30 tablet, Rfl: 0 insulin glargine (Lantus) 100 UNIT/ML injection, Inject 20 Units under the skin every morning., Disp: , Rfl: Insulin Lispro (Humalog) 100 UNIT/ML solution injection, Inject 8 Units under the skin 2 times daily (before meals)., Disp: , Rfl: losartan (Cozaar) 25 MG tablet, Take 1 tablet (25 mg) by mouth daily., Disp: 30 tablet, Rfl: 0 magnesium oxide (Mag-Ox) 400 (240 Mg) MG tablet, Take 1 tablet (400 mg) by mouth 2 times daily., Disp: 30 tablet, Rfl: 0 melatonin 5 MG tablet, Take 1 tablet (5 mg) by mouth Nightly., Disp: 30 tablet, Rfl: 0 nystatin (Mycostatin) ointment, Apply topically 2 times daily., Disp: , Rfl: pravastatin (Pravachol) 80 MG tablet, Take 1 tablet (80 mg) by mouth in the morning., Disp: 90 tablet, Rfl: 1 rivaroxaban (Xarelto) 20 MG tablet, TAKE 1 TABLET BY MOUTH EVERY MORNING WITH BREAKFAST, Disp: 90 tablet, Rfl: 1 traZODone (Desyrel) 50 MG tablet, Take 1 tablet (50 mg) by mouth Nightly as needed for sleep., Disp: , Rfl: venlafaxine XR (Effexor XR) 150 MG 24 hr capsule, Take 1 capsule (150 mg) by mouth daily (with breakfast). Do not crush or chew., Disp: , Rfl: documented in this encounter [facility] 06-28-2025 Emergency department Note Pt's saturated brief removed. Placed on a purwick after it was explained to pt and pt agreeable to it. [facility] 06-28-2025 Physician Emergency department Note EMERGENCY DEPARTMENT ENCOUNTER Pt Name: Beverly Agee Birthdate 1945 Date of evaluation: 06/28/2025 ED Provider: Annabel Ferreira DO CHIEF COMPLAINT Chief Complaint Patient presents with Altered Mental Status Pt from home, lives alone. Recently admitted for a fall. Pt has no complaints. Pt is afraid to fall and very emotional during triage HISTORY OF PRESENT ILLNESS (Location/Symptom, Timing/Onset, Context/Setting, Quality, Duration, Modifying Factors, Severity) Note limiting factors. I wore appropriate PPE for the entirety of this encounter. HPI Beverly Agee is a 79 y.o. who presents to the emergency department with altered mental status. The patient has a history of dementia, HTN, HLD, T2DM, paroxysmal A-fib on Xarelto. The patient was recently admitted to the hospital from 06/05 to 06/09 after being found down on the floor for an unknown amount of time. The patient was found at that time to have a urinary tract infection for which she completed an antibiotic course. Per EMS report the patient had family visiting the home who called them for a change in her mental status. Patient is currently oriented to self only. Nursing Notes were reviewed. Limitations to history: Altered mental status/confusion Outside historians: EMS REVIEW OF SYSTEMS Review of Systems Unable to perform ROS: Dementia Pertinent positives and negatives as per HPI. PAST MEDICAL HISTORY Medical History[1] SURGICAL HISTORY Surgical History[2] CURRENT MEDICATIONS Previous Medications ASCORBIC ACID (VITAMIN C) 500 MG TABLET Take 1,000 mg by mouth daily. CALCIUM CARBONATE (CALCIUM 600 PO) Take 1 tablet by mouth daily. CHOLECALCIFEROL (VITAMIN D3) 25 MCG (1000 UT) TABLET Take 5,000 Units by mouth daily. 125mcg CONTINUOUS GLUCOSE SENSOR (ILD [employer] G7 SENSOR) MISC 1 Device as needed. Use a new sensor every 10 days. CYANOCOBALAMIN (VITAMIN B-12) 1000 MCG TABLET Take 1 tablet (1,000 mcg) by mouth daily. DONEPEZIL (ARICEPT) 10 MG TABLET Take 1 tablet (10 mg) by mouth daily. [facility] UNIFINE PENTIPS PLUS 32G X 4 MM MISC use 1 (ONE) needle FOUR TIMES DAILY FENOFIBRATE (TRICOR) 54 MG TABLET Take 1 tablet (54 mg) by mouth daily. INSULIN GLARGINE (LANTUS) 100 UNIT/ML INJECTION Inject 20 Units under the skin every morning. INSULIN LISPRO (HUMALOG) 100 UNIT/ML SOLUTION INJECTION Inject 8 Units under the skin 2 times daily (before meals). LOSARTAN (COZAAR) 25 MG TABLET Take 1 tablet (25 mg) by mouth daily. MAGNESIUM OXIDE (MAG-OX) 400 (240 MG) MG TABLET Take 1 tablet (400 mg) by mouth 2 times daily. MELATONIN 5 MG TABLET Take 1 tablet (5 mg) by mouth Nightly. NYSTATIN (MYCOSTATIN) OINTMENT Apply topically 2 times daily. PRAVASTATIN (PRAVACHOL) 80 MG TABLET Take 1 tablet (80 mg) by mouth in the morning. RIVAROXABAN (XARELTO) 20 MG TABLET TAKE 1 TABLET BY MOUTH EVERY MORNING WITH BREAKFAST TRAZODONE (DESYREL) 50 MG TABLET Take 1 tablet (50 mg) by mouth Nightly as needed for sleep. VENLAFAXINE XR (EFFEXOR XR) 150 MG 24 HR CAPSULE Take 1 capsule (150 mg) by mouth daily (with breakfast). Do not crush or chew. ALLERGIES Aspirin, Penicillins, and Sulfa antibiotics FAMILY HISTORY Family History[3] SOCIAL HISTORY Social History[4] SCREENINGS PHYSICAL EXAM ED Triage Vitals Temp Pulse Resp BP -- -- -- -- SpO2 Temp src Heart Rate Source Patient Position -- -- -- -- BP Location FiO2 (%) -- -- Physical Exam Constitutional: General: She is not in acute distress. Comments: Patient is anxious appearing, confused. Patient appears disheveled with dirty clothing and socks. Cardiovascular: Rate and Rhythm: Normal rate and regular rhythm. Heart sounds: Normal heart sounds. Pulmonary: Effort: Pulmonary effort is normal. No respiratory distress. Breath sounds: No wheezing. Abdominal: General: Abdomen is flat. There is no distension. Palpations: Abdomen is soft. Tenderness: There is abdominal tenderness. Comments: Tenderness to left lower quadrant. No guarding. Musculoskeletal: Right lower leg: No edema. Left lower leg: No edema. Skin: General: Skin is warm and dry. Neurological: Mental Status: She is alert. Sensory: No sensory deficit. Motor: No weakness. Coordination: Coordination normal. Comments: Oriented to self only. DIAGNOSTIC RESULTS RADIOLOGY (Per Emergency Physician): Interpretation per the Radiologist below, if available at the time of this note: CT abdomen pelvis w contrast Final Result 1. Diffuse bladder wall thickening. Recommend correlation with urinalysis. 2. Colonic diverticulosis. 3. Atherosclerotic changes, as detailed above. Report Dictated on Electronically Signed By: Dolores Castro MD Electronically Signed Date/Time: 06/28/2025 4:[address] head wo IV contrast Final Result 1. No acute intracranial findings. 2. Probable chronic ischemic and atrophic changes. Report Dictated on Electronically Signed By: Floyd Nelson MD Electronically Signed Date/Time: 06/28/2025 4:19 PM EST XR chest 1 view Final Result No acute cardiopulmonary abnormality. Stable mild prominence of the cardiac silhouette. Report Dictated on Electronically Signed By: Dolores Castro MD Electronically Signed Date/Time: 06/28/2025 3:16 PM EST LABS: Labs Reviewed CBC WITH AUTO DIFFERENTIAL - Abnormal Result Value Auto WBC 10.1 RBC 4.70 Hemoglobin 13.8 Hematocrit 41.9 MCV 89.1 MCH 29.4 MCHC 32.9 RDW 13.0 Platelets 232 MPV 10.0 nRBC 0.0 Neutrophils Relative 63.3 Lymphocytes Relative 26.9 Monocytes Relative 5.7 Eosinophils Relative 3.0 Basophils Relative 0.6 Immature Grans % 0.5 Neutrophils Absolute 6.4 Lymphocytes Absolute 2.7 Monocytes Absolute 0.6 Eosinophils Absolute 0.3 Basophils Absolute 0.1 Immature Grans Absolute 0.1 (*) COMPREHENSIVE METABOLIC PANEL - Abnormal SODIUM 138 POTASSIUM 4.6 CHLORIDE 104 CARBON DIOXIDE 24 ANION GAP 10 UREA NITROGEN 12 CREATININE 0.93 GLUCOSE 164 (*) CALCIUM 10.1 (*) AST (SGOT) 15 ALT <6 ALKALINE PHOSPHATASE 59 ALBUMIN 3.7 BILIRUBIN, TOTAL 0.5 TOTAL PROTEIN 7.0 eGFR 63.4 COMPLETE URINALYSIS WITH REFLEX TO CULTURE - Abnormal Color, Urine Yellow Clarity, Urine Extra Turbid (*) pH, Urine 8.0 Leukocytes, Urine 500 (*) Nitrite, Urine Positive (*) Protein, Urine 30 (*) Glucose, Urine Normal Bilirubin, Urine Negative Ketones, Urine Negative Urobilinogen, Urine Normal Blood, Urine 0.06 (*) RBC, Urine 11-25 (*) WBC, Urine >100 (*) Squamous Epithelial, Urine 0-2 Non-Squamous Epithalial Cells, Urine 0-2 (*) Bacteria, Urine Few (*) Hyaline Casts, Urine Negative WBC Clumps, Urine Many (*) SPECIFIC GRAVITY OF URINE (NUMERIC) 1.013 Narrative: This specimen has been reflexed to urine culture. BLOOD CULTURE - Normal Blood Culture Blood culture incubation started Narrative: Blood Collection Site: Right Forearm BLOOD CULTURE - Normal Blood Culture Blood culture incubation started Narrative: Blood Collection Site: Left Hand LACTIC ACID WITH REFLEX - Normal LACTIC ACID 1.3 HIGH SENSITIVITY TROPONIN, SERIAL BASELINE - Normal Troponin HS Serial Baseline <3 HIGH SENSITIVITY TROPONIN, SERIAL, SECOND TEST - Normal 2h Troponin HS (Serial 2nd Troponin) <3 URINE CULTURE All other labs were within normal range or not returned as of this dictation. EMERGENCY DEPARTMENT COURSE and DIFFERENTIAL DIAGNOSIS/MDM: Vitals: Vitals: 06/28/25 1445 BP: 123/70 Pulse: 71 Resp: 16 Temp: 36.6 C (97.9 F) TempSrc: Oral SpO2: 100% Weight: 79.4 kg (175 lb) Height: 1.676 m (5' 6") The patient presented with a chief complaint of AMS. The differential diagnosis associated with this patient's presentation includes sepsis versus UTI versus diverticulitis versus colitis versus dehydration versus electrolyte derangement versus arrhythmia. Our workup consisted of ordering/reviewing CT abdomen/pelvis, CT head, CXR, EKG, blood cultures, CBC, CMP, lactic acid, troponin, urinalysis. As the patient had a recent admission for sepsis secondary to UTI and has a change in her mental status she would be covered with vancomycin and cefepime for possible septic cause of her change in mental status. She was also given a liter fluid bolus. Patient does not appear septic, she has no white count, lactic acid within normal limits. Urinalysis is concerning for infection which explains her altered mental status. CT abdomen/pelvis also shows diffuse bladder wall thickening consistent with this UTI. CT head negative for acute process. The patient will be admitted to the hospital for further IV antibiotics to treat her urinary tract infection. FINAL IMPRESSION 1. Urinary tract infection in female 2. Altered mental status, unspecified altered mental status type DISPOSITION Admit 06/28/2025 03:53:58 PM PATIENT REFERRED TO: No follow-up provider specified. DISCHARGE MEDICATIONS: New Prescriptions No medications on file (Comment: Please note this report has been produced using speech recognition software and may contain errors related to that system including errors in grammar, punctuation, and spelling, as well as words and phrases that may be inappropriate. 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 Type 2 diabetes mellitus (HCC) Type II or unspecified type diabetes mellitus without mention of complication, not stated as uncontrolled (HCC) [2] Past Surgical History: Procedure Laterality Date BREAST LUMPECTOMY Left BREAST LUMPECTOMY Left 2013 s/p radiation as well CATARACT EXTRACTION W/ INTRAOCULAR LENS IMPLANT Bilateral 10/2015, 12/2015 SECTION (HISTORICAL) SECTION, LOW TRANSVERSE [id number] CHOLECYSTECTOMY DILATION AND CURETTAGE OF UTERUS FEMUR FRACTURE SURGERY Right 11/30/2019 HIP ARTHROPLASTY Right 01/21/2020 conversion JOINT REPLACEMENT Bilateral ROTATOR CUFF REPAIR Right TOTAL ABDOMINAL HYSTERECTOMY [3] Family History Problem Relation Name Age of Onset Asthma Son Thyroid disease Brother Cancer Mother Cancer Father Thyroid disease Mother Cancer Brother Asthma Son Asthma Son Diabetes Son Charbel Agee [4] Social History Socioeconomic History Marital status: Number of children: 3 Tobacco Use Smoking status: Every Day Current packs/day: 1.00 Average packs/day: 1 pack/day for 125.8 years (125.8 ttl pk-yrs) Types: Cigarettes Start date: 08/27/1959 Smokeless tobacco: Never Vaping Use Vaping status: Never Used Substance and Sexual Activity Alcohol use: Not Currently Alcohol/week: 0.0 standard drinks of alcohol Drug use: Never Sexual activity: Not Currently Partners: Male control/protection: None Social Drivers of Health Financial Resource Strain: Low Risk (07/04/2021) Received from [facility] Overall Financial Resource Strain (CARDIA) Difficulty of Paying Living Expenses: Not hard at all Food Insecurity: No Food Insecurity (06/05/2025) Hunger Vital Sign Worried About Running Out of Food in the Last Year: Never true Ran Out of Food in the Last Year: Never true Transportation Needs: No Transportation Needs (06/05/2025) PRAPARE - Transportation Lack of Transportation (Medical): No Lack of Transportation (Non-Medical): No Intimate Partner Violence: Not At Risk (06/05/2025) Humiliation, Afraid, Rape, and Kick questionnaire Fear of Current or Ex-Partner: No Emotionally Abused: No Physically Abused: No Sexually Abused: No Housing Stability: Low Risk (06/05/2025) Housing Stability Vital Sign Unable to Pay for Housing in the Last Year: No Number of Times Moved in the Last Year: 0 Homeless in the Last Year: No Annabel Ferreira DO Resident 06/28/25 1711 Cosigned by Marbin Ambrose MD at 06/28/2025 6:01 PM EST [facility] 06-28-2025 Physician Emergency department Note Emergency Department Encounter [facility] EMERGENCY DEPT Patient: Beverly Agee : 1945 Date of Evaluation: 06/28/2025 ED Supervising Physician: Marbin Ambrose MD I independently examined and evaluated Beverly Agee. This will serve as my Supervisory note and shared attestation. I did perform a substantive portion of the visit including all aspects of the Medical Decision Making. I wore appropriate PPE for the entirety of this encounter. History: In brief, Beverly Agee is a 79 y.o. female that presents to the emergency department from home. Family called because they were concerned about the patient. She has had change in mental status. She has had a recent fall and was recently admitted earlier in the month of May. Patient herself is extremely angry that she is here. She screams that she does not want to be here. Focused exam: On examination the patient is a older female found lying on a cart. She is poorly cooperative. She moves all 4 extremities without difficulty. Her oral mucosa membranes are dry. Chest is clear. Normal cardiac exam. Abdomen is soft and is nontender. Differential Diagnosis: Differential diagnosis includes potential causes of falls including infection. This may involve a urinary tract infection which the patient has had issues with in the past. Diagnostic testing undertaken, as well as those tests considered but not ordered: Laboratory work will be obtained on this patient including urinalysis. ED testing and evaluation will be obtained to help differentiate these diagnostic possibilities and determine the most likely cause. Brief ED course/MDM: Patient has remained stable in the emergency department. Disposition will be based on results of diagnostic testing, response to therapy, and reassessment. Sources of History: I evaluated other historical sources including previous outpatient records and admission records. Patient is aware of care plan. All diagnostic, treatment, and disposition decisions were made by myself in conjunction with the Resident. I also supervised virk portions of any procedures performed by the Resident. For all further details of the patient's emergency department visit, please see their documentation. (Comment: Please note this report has been produced using speech recognition software and may contain errors related to that system including errors in grammar, punctuation, and spelling, as well as words and phrases that may be inappropriate. If there are any questions or concerns please feel free to contact the dictating provider for clarification.) Marbin Ambrose MD [facility] Marbin Ambrose MD 06/28/25 1801 [facility] Work Phone: 06-24-2025 Telephone encounter Note Name of caller: Charbel Relation to patient: Burt Contact phone number: [phone] Appointment scheduled with: Dr. Euceda Appointment date & time: 07/02/25 1:00 PM Reason for visit (are you having any symptoms): New Patient - Urinary tract infection, urinary incontinence Transportation issues/ concerns: No Special accommodations? ( wheel chair, etc) : No Current medications: Patient encouraged to bring a list of current medications to new patient visit. Any refills need: No Any chronic conditions the provider should be aware of: No [facility] 06-24-2025 Miscellaneous Notes Name of caller: Charbel Relation to patient: Burt Contact phone number: [phone] Appointment scheduled with: Dr. Euceda Appointment date & time: 07/02/25 1:00 PM Reason for visit (are you having any symptoms): New Patient - Urinary tract infection, urinary incontinence Transportation issues/ concerns: No Special accommodations? ( wheel chair, etc) : No Current medications: Patient encouraged to bring a list of current medications to new patient visit. Any refills need: No Any chronic conditions the provider should be aware of: No documented in this encounter [facility] 06-23-2025 Telephone encounter Note Name of caller: Itzel Contact phone number: [phone] Relationship to Patient: [facility] Provider: Dr. Iqbal Practice: [facility] Carlos Chief Complaint/Reason for Call: Itzel from [facility] stated that they are seeing the patient for nursing, physical therapy, and occupational therapy. Itzel stated that the patient was recently in the hospital for a UTI. Itzel stated that the patient has dementia and is a high fall risk but has not fallen recently. Itzel stated that the patient is currently doing okay. Itzel can be reached at telephone number [phone] . Please advise. Best time of day caller can be reached: Any Patient advised that office/PCP has 24-48 business hours to return their call: Yes [facility] 06-23-2025 Miscellaneous Notes Name of caller: Itzel Contact phone number: [phone] Relationship to Patient: [facility] Provider: Dr. Iqbal Practice: [facility] Carlos Chief Complaint/Reason for Call: Itzel from [facility] stated that they are seeing the patient for nursing, physical therapy, and occupational therapy. Itzel stated that the patient was recently in the hospital for a UTI. Itzel stated that the patient has dementia and is a high fall risk but has not fallen recently. Itzel stated that the patient is currently doing okay. Itzel can be reached at telephone number [phone] . Please advise. Best time of day caller can be reached: Any Patient advised that office/PCP has 24-48 business hours to return their call: Yes documented in this encounter [facility] 06-09-2025 Progress note Formatting of t his note might be different from the original. Social Work [id number] completed in [facility]. Notified TCC and facility via [employer]. [facility] 06-09-2025 Miscellaneous Notes Social Work [id number] completed in [facility]. Notified TCC and facility via careport. Patient Choice Patient Name: BEVERLY AGEE Date of : 1945 All Providers Sent Referral Name: [facility] Phone: [phone] Address: [address] [place] [address] [place] [address] Discharge med list transmitted to [facility] via [facility] per [facility] request. Transport arranged for 2pm to [facility]. Called and updated son/HPDEEPALI Barger- agreeable. Phys, pt and bedside RN updated. Confirmed pickup time of 2:00pm on 06/09/25 by transport Brandizi at phone number [phone]. Location of facility drop off is [facility]. Facility notified via Careport, TCC notified on secure chat. Care Management Progress Note Short Medical why still here: pt being treated following a fall. Medically stable for discharge. Planned Discharge Disposition: auth obtained for skilled care at [facility]. Phys updated for completion of discharge orders. SW to complete pasr d/t OBS status. INSURANCE RISK MANAGER to arrange transport Called son/JAMES Barger- introduced self and role. Discussed above plan and son agreeable. Barriers/Today we still Wait: discharge today/phys orders. Length of Stay (Days): 0 GMLOS: 3.4 Care Management Progress Note Short Medical why still here: pt adm for tx/evaluation after fall at home. Cardiology reviewed and signed off. Planned Discharge Disposition: met with pt- introduced self and role. Pt from home with son. Pt uses a walker at baseline. Son helps with meds- uses daily pill box. Son provides transportation. Pt says her neighbor helps prn also. No active HC. Discussed discharge plan and recommendation by therapy to go to SNF. Pt agreeable and stated she had "gone somewhere before". Per records, pt discharged to [facility] in 09/2024. Informed pt of last SNF she was at and pt agreeable to return. [facility] received referral and accepted- will submit for auth. Barriers/Today we still Wait: auth for SNF. Length of Stay (Days): 0 GMLOS: 3.4 Referral placed to SNF- [facility] via [facility] per TCC request. Await review and response regarding ability to accept. TCC notified. [facility] Beverly M Félix : 1945 Primary Care Physician: NENO IQBAL MD The patient and/or family/surrogate voluntarily agreed to participate in ACP services. Patient s cognitive capacity: Intact Code Status: [ ] [FULL CODE - Continue all advanced life support: CPR,intubation,invasive procedures] [X_] [DNR-CCA - DO NOT do CPR, intubation] [_] [DNR-ANIMAL LABORATORY TECHNICIAN - Comfort care only] [_] DNR form [was/was not] signed Summary of discussion: The patient health care POA/ surrogate is the following: Son Félix (POA)Charbel . [Condition that instigated the ACP on this DOS, relevant PMH, functional status, goals of care, and whom this was discussed with including names and relationship to the patient, and any relevant advance care documentation discussion] I answered all the patient/family questions that I could within the range and scope of the current medical situation. We discussed the medical conditions, risks, benefits, outcomes, and goals of care at this time for the patient's medical issues at hand in the face of the patient's chronic issues and current presentation. Total time spent: 2 minutes were spent discussing the patient's resuscitation status, advance care planning, and end of life care, with patient and/or family/surrogate. Jayy White MD [facility] 06/05/2025, 1:05 PM documented in this encounter [facility] 06-09-2025 Nurse Note Called report to yung. Ivs taken out. Tele taken off. Belongings gathered by nurse. Transport here to transport pt to new facility. [facility] 06-09-2025 Nurse Note Called report to yung. Ivs taken out. Tele taken off. Belongings gathered by nurse. Transport here to transport pt to new facility. This RN called report to 4N RN. RN contacted Dr. Jennings concerning patients scheduled insulin dose this morning and the resulting blood glucose drop to 59. Patient is ordered lantus, which was delayed giving due to order needing adjusted by pharmacy. RN asking about lantus dose. documented in this encounter [facility] 06-09-2025 History of Present illness Narrative Images from the original note were not included. PHYSICAL THERAPY [facility] Treatment Note Name/MRN: Beverly Agee ([id number]) Date of : 1945 Age: 79 y.o. Room/Bed: N4-463/N4-463 A Discharge Recommendation: [facility] Facility Equipment Needed: (TBD at next level of care) Assessment Pt requires min to mod assist for bed mobility and transfers, min assist for ambulation with use of FWW. Pt demos decreased strength, balance, and endurance. No PT goals met this session. Recommend SNF at discharge. Subjective Pt is supine in the bed, agrees to PT. Pain: Pt denies any current pain. Medical Precautions: No active isolations Proper PPE donned/doffed in accordance with facility standards. Fall Risk: Loyd Fall Risk Score: 85 (High Risk) Precautions/Restrictions: Fall Precautions Telemetry, Purewick, bed alarm Overall Cognitive Status: Exceptions - Safety judgement: decreased awareness of need for safety - Problem solving: assistance required to identify errors made and assistance required to correct errors made Overall Orientation Status: Oriented to Place and Oriented to Person Family/Caregiver Present: none Objective Bed Mobility Supine to sit: Min Assist Sit to supine: Min Assist Rolling to left: Min Assist HOB Elevated Use of bed rail(s) Increased time needed Transfers/Mobility Sit to stand: Mod Assist Stand to sit: Min Assist Verbal cues needed for hand placement with transfers Ambulation Ambulation 1 Assistive device(s) used: Front wheeled walker Assist level: Min Assist Distance (ft): 15 ft x 2 Balance During Session: Static stand at FWW with min assist x 1 Exercises Exercises Quad Sets: x 10 Heelslides: x 10 Hip Flexion: x 10 seated Hip Abduction: x 10 Knee Long Arc Quad: Seated, 10x each with 3 second hold Ankle Pumps: Seated, 10x each with 3 second hold Plan Continue acute PT per plan of care. Safety/Education Safety Safety Devices in place: All fall risk precautions in place, call light within reach, left in bed, bed alarm in place, and patient at risk for falls Restraints: No Education Education Given To: patient Education Provided: PT Role, PT Goals, Gait Training, Plan of Care, Transfer Training, and Discharge Recommendations Education Method: Verbal Barriers to Learning: None Education Outcome: Verbalized Understanding and Continued Education Needed Outcome Measures AM-PAC AM-PAC Inpatient Mobility Raw Score (No Stairs) : 14 JH-HLM JH-HLM Scale: Walked 25 ft or more (i.e. walked outside of room) Goals Patient Stated Goal: not fall down again Encounter Problems Encounter Problems (Active) Balance Patient will maintain static standing balance for 2 minutes with supervision in order to demonstrate decreased risk of falling. (Progressing) Start: 06/06/25 Expected End: 06/20/25 Mobility Patient will ambulate 75 feet with min assist and device in order to improve safety and independence with mobility. (Progressing) Start: 06/06/25 Expected End: 06/20/25 Patient will ascend and descend 3 stairs with one railing and min assist in order to safely negotiate home. (Not Addressed) Start: 06/06/25 Expected End: 06/20/25 1) if home 2) pt notes she never does stairs on own Transfers Patient will perform bed mobility with independence in order to improve independence and prepare for out of bed mobility. (Progressing) Start: 06/06/25 Expected End: 06/20/25 Patient will complete sit to stand transfer with supervision to device in order to improve safety and prepare for out of bed mobility. (Progressing) Start: 06/06/25 Expected End: 06/20/25 Therapy Time Individual Co-treatment Time In 1117 Time Out 1140 Minutes 23 Timed Code Treatment Minutes: (GT, TP) Blanca Treviño DIRECTOR OF [employer] Cosigned by Darrin Guerrero, PT at 06/09/2025 1:31 PM EDT Images from the original note were not included. [facility] Inpatient Consult Service Admission Date: 06/05/2025 Admission Status: INPATIENT Assessment and Plan Principal Problem: Fall, initial encounter Active Problems: Moderate malnutrition (CMS/HCC) (HCC) Fall -Multiple risk factors including weakness, chronic pain, cognitive deficits, diabetes, and acute illness -Vitamin D within normal limits - continue home supplementation -Check orthostatic vital signs as able -Cardiology signed off- per note, Echo with normal biventricular function -Medications with associated fall risk include: losartan -Continue PT/OT as able while inpatient- PT recommending SNF- Per CM note, awaiting accepting facility Mixed Alzheimer's and vascular dementia -Known patient to the [place] for [facility]- last MoCA on 12/31/24 with score of 13/30 -Continue donepezil. Monitor for bradycardia. -Continue supportive care. At risk for delirium -Nursing Delirium Screen (Nu-Desc): Nursing Delirium Symptom Checklist Total Score: 1 Predisposing factors for this patient include:advanced age, dementia Precipitating factors for this patient include:infection -Delirium protocol. -If agitated, assess for and consider treating for pain -QTc= 473 -Continue scheduled melatonin at HS -Monitor for constipation/urinary retention - last BM unknown - assess for need for addition of scheduled bowel regimen -Encourage PO intake, time up in chair, family visits, supervised ambulation, and sleep hygiene Follow up: PRN, please page for questions Subjective: Reason for Appointment Chief Complaint Patient presents with Fall Geriatrics consulted for Syncope, concern for fall, please evalate HPI- patient is new to me, previously seen by inpatient geriatric consult service 79 y.o. year-old female presented from home for fall on 06/05/2025 . Reportedly found down by her neighbor after her son had not heard from her. She was sitting in a chair reportedly and fell off but did not have much recollection of what happened or how long she was down. On admission she had a leukocytosis with a white blood cell count of 18.2. Lactic acid was elevated to 2.7. Creatinine was elevated to 1.24. Lactic acid trended down into the normal range. Urinalysis positive for nitrites and leuk esterase. Pyuria on urinalysis. Blood cultures pending. Empiric cefepime started. CT head showed no definite evidence of acute infarction, mass lesion, or hemorrhage. CT head did show atrophy and remote appearing small vessel white matter/right basal ganglia chronic ischemic/neurodegenerative changes. CT abdomen and pelvis showed old right rib fractures with prior surgery with plating, remote appearing left rib fractures, osteopenia of the spine with mild superior endplate depression of L5, uncertain age. X-ray pelvis showed right RIC with old healed proximal femur fracture. Seen by the geriatric consult service in September of this year and November of last year. Cardiology consulted. Interval history: remains on 4N No reported overnight events Cardiology note reviewed Echocardiogram was ordered and completed yesterday--results reviewed showing normal biventricular function and no significant valve disease. Telemetry reviewed-1 alarm detected during nocturnal hours showing SB with HR 50 bpm but otherwise NSR with HR 60-70s. At this time, cardiology will sign off. " Patient reports that she is doing well today, states that she knows that she is here for a fall, slept well overnight, no BM today, appetite is good, able to report that she is at the hospital. Therapy recommendations Seen by PT yesterday: 35ft with CGA, FWW- recommending SNF Review of Systems Constitutional: Negative for decreased appetite and malaise/fatigue. Cardiovascular: Negative for chest pain. Respiratory: Negative for cough and shortness of breath. Musculoskeletal: Negative for arthritis. Gastrointestinal: Negative for constipation and nausea. Psychiatric/Behavioral: The patient does not have insomnia. Objective: BP 131/67 (BP Location: Right arm, Patient Position: Lying) Pulse 64 Temp 36.5 C (97.7 F) (Temporal) Resp 18 Ht 5' 6" (1.676 m) Wt 176 lb 12.9 oz (80.2 kg) SpO2 95% BMI 28.54 kg/m Current Medications[1] Physical Exam Constitutional: General: She is not in acute distress. HENT: Mouth/Throat: Mouth: Mucous membranes are moist. Pharynx: Oropharynx is clear. Eyes: General: Right eye: No discharge. Left eye: No discharge. Conjunctiva/sclera: Conjunctivae normal. Cardiovascular: Rate and Rhythm: Normal rate. Pulmonary: Effort: Pulmonary effort is normal. No respiratory distress. Breath sounds: No wheezing or rales. Abdominal: General: Bowel sounds are normal. Palpations: Abdomen is soft. Musculoskeletal: Right lower leg: Edema present. Left lower leg: Edema present. Neurological: Mental Status: She is alert and oriented to person, place, and time. Sensory: No sensory deficit. Psychiatric: Attention and Perception: Attention normal. Behavior: Behavior is not agitated or aggressive. Behavior is cooperative. Cognition and Memory: Memory is impaired. Labs and Imaging: Lab Results Component Value Date WBC 8.5 06/08/2025 HGB 12.5 06/08/2025 HCT 37.7 06/08/2025 MCV 88.7 06/08/2025 PLT 229 06/08/2025 Lab Results Component Value Date NA 139 06/08/2025 K 4.1 06/08/2025 CL 107 06/08/2025 CO2 26 06/08/2025 BUN 18 06/08/2025 CREATININE 0.76 06/08/2025 GLUCOSE 110 06/08/2025 CALCIUM 9.4 06/08/2025 PROT 5.8 (L) 06/08/2025 BILITOT 0.3 06/08/2025 ALKPHOS 40 06/08/2025 AST 16 06/08/2025 ALT <6 06/08/2025 Lab Results Component Value Date VITD25 35 06/06/2025 TSH 2.07 10/21/2024 Reviewed: active medication list, recent labs, notes from last several encounters [1] Current Facility-Administered Medications: acetaminophen (Tylenol) tablet 650 mg, 650 mg, Oral, q6h PRN, 650 mg at 06/07/25 0859 OR acetaminophen (Tylenol) suppository 650 mg, 650 mg, Rectal, q6h PRN, Jayy White MD ascorbic acid (Vitamin C) tablet 1,000 mg, 1,000 mg, Oral, Daily, Jayy White MD, 1,000 mg at 06/08/25 0839 calcium carbonate (Tums) chewable tablet 500 mg, 500 mg, Oral, Daily, Jayy White MD, 500 mg at 06/08/25 0839 cholecalciferol (Vitamin D-3) tablet 5,000 Units, 5,000 Units, Oral, Daily, Jayy White MD, 5,000 Units at 06/08/25 0839 cyancobalamin (Vitamin B-12) tablet 2,500 mcg, 2,500 mcg, Oral, Daily, Jayy White MD, 2,500 mcg at 06/08/25 0840 dextrose 5 % infusion, 100 mL/hr, IntraVENous, PRN, Jayy White MD dextrose 50 % solution 12.5 g, 12.5 g, IntraVENous, PRN, Jayy White MD donepezil (Aricept) tablet 10 mg, 10 mg, Oral, Daily, Jayy White MD, 10 mg at 06/08/25 0839 fenofibrate (Tricor) tablet 54 mg, 54 mg, Oral, Daily, Jayy White MD, 54 mg at 06/08/25 1012 glucagon (human recombinant) injection 1 mg, 1 mg, IntraMUSCular, PRN, Jayy White MD glucose oral gel 15 g, 15 g, Oral, PRN, Jayy White MD insulin glargine (Lantus) injection 20 Units, 20 Units, SubCUTAneous, q AM, Yayo Jennings DO, 20 Units at 06/08/25 0838 Insulin Lispro (Humalog) injection 0-12 Units, 0-12 Units, SubCUTAneous, TID WC, 4 Units at 06/08/25 1159 AND Insulin Lispro (Humalog) injection 0-12 Units, 0-12 Units, SubCUTAneous, Nightly, Jayy White MD, 2 Units at 06/05/25 2133 Insulin Lispro (Humalog) injection 8 Units, 8 Units, SubCUTAneous, BID AC, Yayo Jennings DO, 8 Units at 06/07/25 1756 labetalol (Normodyne,Trandate) injection 10 mg, 10 mg, IntraVENous, q4h PRN, Jayy White MD losartan (Cozaar) tablet 25 mg, 25 mg, Oral, Daily, Jayy White MD, 25 mg at 06/08/25 0840 magnesium oxide (Mag-Ox) tablet 400 mg, 400 mg, Oral, BID, Jayy White MD, 400 mg at 06/08/25 0840 melatonin tablet 5 mg, 5 mg, Oral, Nightly, Jayy White MD, 5 mg at 06/07/25 2121 nystatin (Mycostatin) ointment, , Topical, BID, Shalini Prado MD, Given at 06/08/25 0842 ondansetron ODT (Zofran-ODT) disintegrating tablet 4 mg, 4 mg, Oral, q8h PRN OR ondansetron (Zofran) injection 4 mg, 4 mg, IntraVENous, q6h PRN, Jayy White MD perflutren protein A microsphere (Optison) 3 mL in sodium chloride (PF) 0.9 % 10 mL IV, 0-10 mL, IntraVENous, Once PRN, Jayy White MD polyethylene glycol (PEG) 3350 (Miralax) packet 17 g, 17 g, Oral, Daily PRN, Jayy White MD, 17 g at 06/07/25 0900 pravastatin (Pravachol) tablet 80 mg, 80 mg, Oral, Daily, Jayy White MD, 80 mg at 06/08/25 0839 rivaroxaban (Xarelto) tablet 20 mg, 20 mg, Oral, Daily with breakfast, Jayy White MD, 20 mg at 06/08/25 0839 traZODone (Desyrel) tablet 50 mg, 50 mg, Oral, Nightly PRN, Jayy White MD, 50 mg at 06/07/25 2240 venlafaxine XR (Effexor XR) 24 hr capsule 150 mg, 150 mg, Oral, Daily with breakfast, Jayy White MD, 150 mg at 06/08/25 1012 Hospitalist Progress Note 06/08/2025 Subjective: Admit Date: 06/05/2025 PCP: NENO IQBAL MD Room#: [id number] A BRIEF HOSPITAL COURSE: 79-year-old female with past medical history of HTN,HPL, DM 2, paroxysmal A-fib on Xarelto, and dementia was brought in after being found down by son at home for an unknown known period of time. Due to patient being on a blood thinner and possible fall she came in as a trauma team. CT head, cervical spine, chest, abdomen, pelvis, chest x-ray, pelvic x-ray all negative for fracture. Her urinalysis was consistent with UTI and she was started on cefepime. Patient with known dementia and is unable to recall the events that led to her fall and being on the basement floor Interval History: 06/08: seen by neurology and cardiology for syncope- not felt to be cardiogenic or neuro- rec of outpatient event monitor- found UTI- on rocephin Urine sensitivity reviewed. Feels well today, no complaint Adult diet Regular; 4 carb choices (60 gm/meal) 24HR INTAKE/OUTPUT: Intake/Output Summary (Last 24 hours) at 06/08/2025 0937 Last data filed at 06/07/2025 1757 Gross per 24 hour Intake 250 ml Output 1000 ml Net -750 ml Past Medical History: Medical History[1] LABS: CBC: Recent Labs 06/06/2550106/07/2524306/08/25 0735 WBC 10.4 9.5 8.5 RBC 4.48 4.04 4.25 HGB 13.0 12.1 12.5 HCT 40.1 36.1 37.7 MCV 89.5 89.4 88.7 RDW 13.0 12.8 12.8 PLT 243 232 229 BMP: Recent Labs 06/06/2550106/07/2524306/08/25 0735 NA 138 136 139 K 4.1 4.1 4.1 CL 106 105 107 CO2 24 25 26 BUN 22 18 18 CREATININE 0.89 0.81 0.76 GLUCOSE 123* 106 110 CALCIUM 9.6 9.3 9.4 ANIONGAP 8 6 6 LIVER PROFILE: Recent Labs 06/06/2550106/07/2524306/08/25 0735 AST 17 18 16 ALT 7 <6 <6 BILITOT 0.4 0.4 0.3 ALKPHOS 42 41 40 PROT 5.7* 5.6* 5.8* PT/INR: No results for input(s): "PROTIME", "INR" in the last 72 hours. CARDIAC ENZYMES: No results for input(s): "TROPONINI" in the last 72 hours. Procalcitonin: No results found for: "PROCAL" COVID-19 PCR: No results for input(s): "COVID19" in the last 72 hours. Objective: Vitals: BP 131/67 (BP Location: Right arm, Patient Position: Lying) Pulse 64 Temp 36.5 C (97.7 F) (Temporal) Resp 18 Ht 5' 6" (1.676 m) Wt 176 lb 12.9 oz (80.2 kg) SpO2 95% BMI 28.54 kg/m Pulse Ox: SpO2 Av.3 % Min: 94 % Max: 97 % Supplemental O2: Physical Exam Constitutional: Appearance: She is not ill-appearing. Cardiovascular: Rate and Rhythm: Normal rate and regular rhythm. Pulses: Normal pulses. Pulmonary: Effort: Pulmonary effort is normal. Breath sounds: Normal breath sounds. Abdominal: General: Abdomen is flat. Palpations: Abdomen is soft. Neurological: Mental Status: She is alert. Medications: Scheduled PRN Scheduled Meds[2] PRN Meds[3] Continuous Continuous Meds[4] Assessment Data: (CAT1) Reviewed 2 notes from different specialty or health system (each=1). (CAT1) Reviewed 2 labs/studies ordered by another provider not previously counted (each=1, panels count as 1). (LOW: 2x CAT1 or independent historian MOD: 3x CAT1 or 1x CAT3 EXTENSIVE: 3x CAT1 and 1x CAT3) Acute, acute on chronic, unstable/uncontrolled chronic problems/diagnoses: Syncope with collapse UTI with Severe Sepsis Hypertension uncontrolled DM2 with hyperglycemia Generalized weakness Moderate malnutrition Stable chronic problems affecting care, new non-acute diagnoses: Dementia A fib Plan As a result of the above findings & factors, the following mgmt was pursued: - patient was admitted to hospital for further workup of Syncope and collapse, found down for unknown timeframe- CPK only mild elevation, noited leukocytosis that rapidly improved. Echo reviewed and OK, seen by cardiology and neurology- probably vagal spell. As workup reassuring, rec for outpatient event monitor. Cardiology and neurology signed off. -UTI with e coli- fan sensitive- severe sepsis criterai resolved- completed 3 days abx- stopped. - cont lantus and SSI Cont antihypertensives - am labs, replace lytes prn - PT/OT- rec SNF. - delirium precautions: increase activity and limit nighttime disturbances - DVT prophylaxis: anticoagulated on xarelto Advance Directive: DNR-CCA Anticipated Discharge - Date - 0-2 days - Location - Skilled Facility - Pending the following - medically stable for DC once facility lined up. Extended Emergency Contact Information Primary Emergency Contact: Charbel Agee (POA) Address: [facility] [place] [address] [facility] Mobile Relation: Child Pasteuriser Operator needed? No Secondary Emergency Contact: Marbin Agee [facility] Mobile Relation: Son Pasteuriser Operator needed? No Josy Duenas MD Division of Hospitalist Medicine [facility] 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 right temporal /occiptial/ and hypocapal Depression History of blood transfusion Hyperlipidemia Hypertension Mixed Alzheimer's and vascular dementia ([facility]/HCC) 01/21/2025 Type 2 diabetes mellitus (HCC) Type II or unspecified type diabetes mellitus without mention of complication, not stated as uncontrolled ([facility]) [2] ascorbic acid, 1,000 mg, Oral, Daily calcium carbonate, 500 mg, Oral, Daily cholecalciferol, 5,000 Units, Oral, Daily cyanocobalamin, 2,500 mcg, Oral, Daily donepezil, 10 mg, Oral, Daily fenofibrate, 54 mg, Oral, Daily insulin glargine, 20 Units, SubCUTAneous, q AM insulin lispro, 0-12 Units, SubCUTAneous, TID WC And insulin lispro, 0-12 Units, SubCUTAneous, Nightly insulin lispro, 8 Units, SubCUTAneous, BID AC losartan, 25 mg, Oral, Daily magnesium oxide, 400 mg, Oral, BID melatonin, 5 mg, Oral, Nightly nystatin, , Topical, BID pravastatin, 80 mg, Oral, Daily rivaroxaban, 20 mg, Oral, Daily with breakfast venlafaxine XR, 150 mg, Oral, Daily with breakfast [3] PRN medications: acetaminophen OR acetaminophen, dextrose, dextrose, glucagon (rDNA), glucose, labetalol, ondansetron ODT OR ondansetron, perflutren protein A microsphere (Optison) 3 mL in sodium chloride (PF) 0.9 % 10 mL IV, polyethylene glycol (PEG) 3350, traZODone [4] Brief cardiology note. Cardiology initially consulted syncope/fall in setting of dementia and confusion. Echocardiogram was ordered and completed yesterday--results reviewed showing normal biventricular function and no significant valve disease. Telemetry reviewed-1 alarm detected during nocturnal hours showing SB with HR 50 bpm but otherwise NSR with HR 60-70s. At this time, cardiology will sign off. Rest of care per primary service. Hospitalist Progress Note 06/07/2025 Subjective: Admit Date: 06/05/2025 PCP: NENO IQBAL MD Room#: [id number] A BRIEF HOSPITAL COURSE: This is a 79-year-old female with past medical history of hypertension, hyperlipidemia, DM 2, paroxysmal A-fib on Xarelto, dementia, memory loss who was brought in after being found down by son at home for an unknown known period of time. Due to patient being on a blood thinner and possible fall she came in as a trauma team. CT head, cervical spine, chest, abdomen, pelvis, chest x-ray, pelvic x-ray all negative for fracture. Her urinalysis was consistent with UTI and she was started on cefepime. Patient with known dementia and is unable to recall the events that led to her fall and being on the basement floor. Cardiology was consulted as potential cardiac etiology for her syncope/fall. Echocardiogram was ordered and showed normal EF at 66%, no WMA, and no significant valvular disease. Neurology saw patient and recommended event monitor and signed off. Patient was noted to have weakness and PT was recommending SNF. Interval History: Patient seen and examined. Chart reviewed. No overnight issues. Case and plan discussed with patient and beds This morning patient is feeling confused, anxious, and nauseous. + Generalized weakness. Denies fevers, chills, chest pain, shortness of breath, abdominal pain, or emesis. All questions answered. Adult diet Regular; 4 carb choices (60 gm/meal) 24HR INTAKE/OUTPUT: Intake/Output Summary (Last 24 hours) at 06/07/2025 1251 Last data filed at 06/07/2025 1226 Gross per 24 hour Intake 750 ml Output -- Net 750 ml Past Medical History: Medical History[1] LABS: CBC: Recent Labs 06/05/2590006/06/2550106/07/25 0244 WBC 18.2* 10.4 9.5 RBC 5.25* 4.48 4.04 HGB 15.4 13.0 12.1 HCT 45.6 40.1 36.1 MCV 86.9 89.5 89.4 RDW 12.6 13.0 12.8 PLT 314 243 232 BMP: Recent Labs 06/05/25 0906/06/25 0502 06/07/25 0244 NA 134* 138 136 K 5.1 4.1 4.1 CL 99 106 105 CO2 26 24 25 BUN 23 22 18 CREATININE 1.24* 0.89 0.81 GLUCOSE 332* 123* 106 CALCIUM 10.8* 9.6 9.3 ANIONGAP 9 8 6 LIVER PROFILE: Recent Labs 06/06/25 05006/07/25 0244 AST 17 18 ALT 7 <6 BILITOT 0.4 0.4 ALKPHOS 42 41 PROT 5.7* 5.6* PT/INR: Recent Labs 06/05/25900 PROTIME 11.9 INR 1.1 CARDIAC ENZYMES: No results for input(s): "TROPONINI" in the last 72 hours. Procalcitonin: No results found for: "PROCAL" COVID-19 PCR: No results for input(s): "COVID19" in the last 72 hours. Objective: Vitals: BP 133/61 (BP Location: Left arm, Patient Position: Lying) Pulse 74 Temp 36.3 C (97.4 F) (Temporal) Resp 18 Ht 5' 6" (1.676 m) Wt 176 lb 12.9 oz (80.2 kg) SpO2 95% BMI 28.54 kg/m Pulse Ox: SpO2 Av % Min: 93 % Max: 97 % Supplemental O2: Physical Exam Constitutional: General: She is not in acute distress. HENT: Head: Normocephalic and atraumatic. Mouth/Throat: Mouth: Mucous membranes are moist. Eyes: Extraocular Movements: Extraocular movements intact. Conjunctiva/sclera: Conjunctivae normal. Cardiovascular: Rate and Rhythm: Normal rate and regular rhythm. Pulmonary: Effort: Pulmonary effort is normal. Breath sounds: Normal breath sounds. Abdominal: General: There is no distension. Palpations: Abdomen is soft. Tenderness: There is no abdominal tenderness. Musculoskeletal: General: No swelling. Skin: General: Skin is warm and dry. Neurological: General: No focal deficit present. Mental Status: She is alert. She is disoriented. Psychiatric: Comments: +anxious Medications: Scheduled PRN Scheduled Meds[2] PRN Meds[3] Continuous Continuous Meds[4] Assessment Plan Fall Possible syncope - Continue to monitor on telemetry -Seen by cardiology -Echocardiogram shows normal EF, no WMA, no significant valvular disease -Neurology has seen and recommends event monitor and they signed off Uncontrolled hypertension -Continue losartan 25 mg p.o. daily -BP improved today DM2 with hyperglycemia -Continue Lantus 20 units subcu in the a.m. -Continue Humalog 12 units 2 times daily before meals -Continue SSI -Check blood sugar POCT with meals and at bedtime to monitor for hypoglycemia -Hypoglycemia protocol Severe sepsis due to UTI, met in the ER -No drug-resistant organism previously -Changed IV cefepime to IV Rocephin -urine culture shows E. coli that is fan susceptible -Has received 3 days of antibiotics and discontinuing Lactic acidosis -Resolved Paroxysmal A-fib -Continue Xarelto Dementia-continue donepezil Generalized weakness-PT/OT Advance Directive: DNR-CCA Anticipated Discharge - Date - DC [facility] 06/08 Extended Emergency Contact Information Primary Emergency Contact: Charbel Agee (POA) Address: [address] [place] [id number] [facility] Mobile Relation: Child Pasteuriser Operator needed? No Secondary Emergency Contact: Marbin Agee [facility] Mobile Relation: Son Pasteuriser Operator needed? 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 right temporal /occiptial/ and hypocapal Depression History of blood transfusion Hyperlipidemia Hypertension Mixed Alzheimer's and vascular dementia (CMS/HCC) 01/21/2025 Type 2 diabetes mellitus (HCC) Type II or unspecified type diabetes mellitus without mention of complication, not stated as uncontrolled (HCC) [2] ascorbic acid, 1,000 mg, Oral, Daily calcium carbonate, 500 mg, Oral, Daily cefTRIAXone, 1,000 mg, IntraVENous, q24h cholecalciferol, 5,000 Units, Oral, Daily cyanocobalamin, 2,500 mcg, Oral, Daily donepezil, 10 mg, Oral, Daily fenofibrate, 54 mg, Oral, Daily insulin glargine, 20 Units, SubCUTAneous, q AM insulin lispro, 0-12 Units, SubCUTAneous, TID WC And insulin lispro, 0-12 Units, SubCUTAneous, Nightly insulin lispro, 8 Units, SubCUTAneous, BID AC losartan, 25 mg, Oral, Daily magnesium oxide, 400 mg, Oral, BID melatonin, 5 mg, Oral, Nightly nystatin, , Topical, BID pravastatin, 80 mg, Oral, Daily rivaroxaban, 20 mg, Oral, Daily with breakfast venlafaxine XR, 150 mg, Oral, Daily with breakfast [3] PRN medications: acetaminophen OR acetaminophen, dextrose, dextrose, glucagon (rDNA), glucose, labetalol, ondansetron ODT OR ondansetron, perflutren protein A microsphere (Optison) 3 mL in sodium chloride (PF) 0.9 % 10 mL IV, polyethylene glycol (PEG) 3350, traZODone [4] Images from the original note were not included. PHYSICAL THERAPY [facility] Treatment Note Name/MRN: Beverly Agee ([id number]) Date of : 1945 Age: 79 y.o. Room/Bed: N3-346/N3-346 A Discharge Recommendation: [facility] Facility Equipment Needed: (TBD) Assessment Patient showing modest improvements since evaluation, Increased capacity for weightbearing activities and endurance but still unsteady and very fearful of ambulation. Added lower extremity therapeutic exercise to improve strength needed for transfers. Saw some improvement with sit to stand transfer with repetition. Incontinence upon standing rec'd brief donning for ambulation. Continues to present well below baseline and as fall risk. Recommend intermediate facility upon discharge. Subjective Patient in chair and agreeable to therapy Pain: Pt denies any current pain. Does endorse mild nausea that comes in waves Medical Precautions: No active isolations Proper PPE donned/doffed in accordance with facility standards. Fall Risk: Loyd Fall Risk Score: 85 (High Risk) Precautions/Restrictions: Fall Precautions Telemetry, Purewick, bed alarm Overall Cognitive Status: Exceptions - Following commands: follows one step commands consistently - Memory: decreased recall of recent events - Insights: decreased awareness of deficits - Initiation: requires cues for some Overall Orientation Status: Oriented to Place, Oriented to Situation, and Oriented to Person Family/Caregiver Present: none Objective Transfers/Mobility Sit to stand: Mod Assist Stand to sit: Mod Assist Sitting balance: Supervision Standing balance: Contact Guard 3x Sit to stand from chair, with 30 second standing balance trials between each transfer. Rest breaks required. Device(s) used: Front wheeled walker Ambulation Ambulation 1 Assistive device(s) used: Front wheeled walker Assist level: Contact Guard, verging on Min A but not quite Distance (ft): 35 Quality of gait: reciprocal stepping, slow savanna, instability through all phases, very unsteady, heavily reliant on Fww Exercises Exercises Knee Long Arc Quad: Seated, 10x each with 3 second hold Ankle Pumps: Seated, 10x each with 3 second hold Plan Continue acute PT per plan of care. Safety/Education Safety Safety Devices in place: call light within reach, left in chair, chair alarm in place, gait belt, patient at risk for falls, and nurse notified Restraints: No Education Education Given To: patient Education Provided: Transfer Training Education Method: Verbal and Demonstration Barriers to Learning: Cognition Education Outcome: Continued Education Needed Outcome Measures AM-PAC AM-PAC Inpatient Mobility Raw Score (No Stairs) : 15 JH-HLM JH-HLM Scale: Walked 25 ft or more (i.e. walked outside of room) Goals Patient Stated Goal: not fall down again Encounter Problems Encounter Problems (Active) Balance Patient will maintain static standing balance for 2 minutes with supervision in order to demonstrate decreased risk of falling. (Progressing) Start: 06/06/25 Expected End: 06/20/25 Mobility Patient will ambulate 75 feet with min assist and device in order to improve safety and independence with mobility. (Progressing) Start: 06/06/25 Expected End: 06/20/25 Patient will ascend and descend 3 stairs with one railing and min assist in order to safely negotiate home. (Not Addressed) Start: 06/06/25 Expected End: 06/20/25 1) if home 2) pt notes she never does stairs on own Transfers Patient will perform bed mobility with independence in order to improve independence and prepare for out of bed mobility. (Not Addressed) Start: 06/06/25 Expected End: 06/20/25 Patient will complete sit to stand transfer with supervision to device in order to improve safety and prepare for out of bed mobility. (Progressing) Start: 06/06/25 Expected End: 06/20/25 Therapy Time Individual Co-treatment Time In 1041 Time Out 1112 Minutes 31 Timed Code Treatment Minutes: 31 Minutes (Gt, TP) Laisha Islas PTA Cosigned by Wanda Powell PT at 06/07/2025 3:24 PM EDT Images from the original note were not included. OCCUPATIONAL THERAPY [facility] Initial Evaluation Name/MRN: Beverly Agee ([id number]) Evaluation Date: 06/07/2025 Date of : 1945 Admission Date: 06/05/2025 8:41 AM Age: 79 y.o. Room/Bed: N3-346/N3-346 A Discharge Recommendation: [facility] Facility Assessment IMPRESSION: OT eval completed, deficits as below. Not at functional baseline. Increased risk for falls. Lives alone, poor ability to manage daily routine safely upon homegoing. Recommend SNF upon discharge for safety/independence with functional tasks. Admitting Diagnosis: Fall Performance Deficits /Impairments: Decreased Functional Mobility, Decreased ADL status, Decreased Strength, Decreased Safety Awareness, Decreased Endurance, Decreased Balance, Decreased High Level IADLs, and Decreased Cognition Prognosis: Good Decision Making: Medium Complexity Subjective Pt in bed upon arrival, pleasantly confused, agreeable to OT. Pain: RN managing pain. Past Medical History: Medical History[1] Past Surgical History: Surgical History[2] Admission Diagnosis: Patient Active Problem List Diagnosis Date Noted Moderate malnutrition ([facility]) ([facility]) 06/06/2025 Fall, initial encounter 06/05/2025 Hypoglycemia 10/18/2024 Complicated UTI (urinary tract infection) 01/11/2024 Closed fracture of multiple ribs of right side, initial encounter 12/12/2023 Weakness 10/03/2022 Hyperglycemia 10/03/2022 Noncompliance with treatment regimen 06/30/2022 UTI (urinary tract infection) 11/29/2019 Closed fracture of one rib of left side 08/01/2021 Hemothorax 08/01/2021 Anticoagulated 08/01/2021 Mood disorder 11/13/2020 Hip fracture requiring operative repair, right, closed, initial encounter ([facility]) 01/21/2020 E-coli UTI 12/01/2019 H/O: CVA (cerebrovascular accident) 11/29/2019 Tobacco dependence syndrome 11/29/2019 Memory impairment 11/29/2019 Fall 11/29/2019 Leukocytosis 11/29/2019 Closed fracture of hip ([facility]) 11/29/2019 Unsteady gait 11/29/2019 Type 2 diabetes mellitus with hyperglycemia, with long-term current use of insulin ([facility]) 11/29/2019 Acute cystitis 11/29/2019 Obesity 11/29/2019 Atrial fibrillation ([facility]) 11/29/2019 Hypomagnesemia 02/18/2019 History of radial keratotomy 01/31/2017 Examination of participant in clinical trial 02/03/2016 Malignant neoplasm of upper-outer quadrant of female breast (HCC) 02/03/2016 Psychophysiological insomnia 05/06/2015 Essential hypertension 05/06/2015 Mixed anxiety depressive disorder 05/06/2015 Hyperlipidemia 05/06/2015 Medical Precautions: No active isolations Proper PPE donned/doffed in accordance with facility standards. Fall Risk: Loyd Fall Risk Score: 85 (High Risk) Precautions/Restrictions: Fall Precautions, bed alarm Family/Caregiver Present: none Overall Cognitive Status: Exceptions - Following commands: follows one step commands consistently - Memory: decreased short term memory and decreased termite control representative memory - Safety judgement: decreased awareness of need for assistance - Problem solving: assistance required to generate solutions Overall Orientation Status: Oriented to Place, Oriented to Person, and Disoriented to Time Social/Functional History Patient admitted from home. Lives With: Alone Type of Home: single family home Home Layout: pt unable to recall if she resides in 1- or 2-story home Bathroom Shower/Tub: Shower Chair with Back, Walk in Shower, and Grab Bars Toilet: Handicap Height and Grab Bars Home Equipment: front wheeled walker Homemaking Responsibilities: Needs Assist Receives Help From: Family and Neighbor Active Optomechanical Engineer: No Prior Level of Function Prior Level of ADL Function: Independent (son supervises showers) Prior Level of Mobility: Independent; Device: Front wheeled walker Prior Level of Transfers: Independent Pt does light meal prep; has monthly greenhouse laborer; son manages meds and finances. Objective ADLs LE Dressing: Min Assist, for skyler socks seated Upper Extremity Assessment AROM: WFL Strength: Exceptions: skyler Ues grossly 4+/5 Bed Mobility Supine to sit: Mod Assist, for trunk; increased time required HOB Elevated Use of bed rail(s) Transfers/Mobility Sit to stand: Mod Assist, x2 trials. W/ FWW & elevated bed. Stand to sit: Min Assist, x2 trials, w/ FWW Sitting balance: Supervision Standing balance: Min Assist, w. FWW Bed to chair: stand pivot w/ FWW. Min Assist. Increased time and verbal cues required. Device(s) used: Front wheeled walker Vision: No Visual Deficits AM-PAC AM-PAC Inpatient Daily Activity Raw Score: 15 ADL Inpatient [facility] G-Code Modifier: CK Plan Pt would benefit from skilled acute OT services to address Strengthening, Balance Training, Self-Care/ADL Training, Functional Mobility Training, Endurance Training, Safety Education and Training, Cognitive Reorientation, Home Management Training, Patient/Caregiver Training, and Cognitive/Perceptual Training Frequency: 4x/week for 4 weeks Barriers: Confusion Safety/Education Safety Safety Devices in place: call light within reach, left in chair, chair alarm in place, and gait belt Restraints: N/A Education Education Given To: patient Education Provided: OT Role, Plan of Care, and Discharge Recommendations Education Method: Verbal Barriers to Learning: Cognition Education Outcome: Verbalized Understanding and Continued Education Needed Goals Patient Stated Goal: to get stronger Encounter Problems Encounter Problems (Active) Balance Patient will maintain dynamic standing balance for 10 minutes with supervision in order to demonstrate decreased risk of falling. Start: 06/07/25 Expected End: 07/05/25 Dressings Lower Extremities Patient will dress lower body w/ supv. Start: 06/07/25 Expected End: 07/05/25 Grooming Patient will complete daily grooming tasks standing sinkside w/ supv. Start: 06/07/25 Expected End: 07/05/25 Transfers Patient will complete functional transfer with rolling walker with supervision in order to prepare for ambulation. Start: 06/07/25 Expected End: 07/05/25 Therapy Time Individual Co-Treatment Co-Evaluation Time In 0942 Time Out 1005 Minutes 23 Timed Code Treatment Minutes: 8 Minutes (ther act-1) LYNNE Hein/Claribel Patient's Occupational Therapy Plan of Care supervision is transferred to a [facility] Occupational Therapist. Goals and/or treatment plan was established in collaboration with patient/family/other representatives. 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 right temporal /occiptial/ and hypocapal Depression History of blood transfusion Hyperlipidemia Hypertension Mixed Alzheimer's and vascular dementia (CMS/HCC) 01/21/2025 Type 2 diabetes mellitus (HCC) Type II or unspecified type diabetes mellitus without mention of complication, not stated as uncontrolled (HCC) [2] Past Surgical History: Procedure Laterality Date BREAST LUMPECTOMY Left BREAST LUMPECTOMY Left 2012 s/p radiation as well CATARACT EXTRACTION W/ INTRAOCULAR LENS IMPLANT Bilateral 10/2015, 12/2015 SECTION (HISTORICAL) SECTION, LOW TRANSVERSE [id number] CHOLECYSTECTOMY DILATION AND CURETTAGE OF UTERUS FEMUR FRACTURE SURGERY Right 11/30/2019 HIP ARTHROPLASTY Right 01/21/2020 conversion JOINT REPLACEMENT Bilateral ROTATOR CUFF REPAIR Right TOTAL ABDOMINAL HYSTERECTOMY Nutrition Assessment Type and Reason for Visit: Initial, Positive Nutrition Screen (poor po intake and weight loss) Nutrition Recommendations/Plan: PATIENT MEETS CRITERIA FOR MODERATE MALNUTRITION IN ACUTE ILLNESS Continue with carb control (4) diet and consider liberalize diet to regular to promote po intake. Per MNT protocol provide chocolate Glucerna Shake for PM snack for patient to trial. Recommend document all po intake in nursing flow sheets RD continue to monitor overall nutritional status and follow up weekly Malnutrition Assessment: Malnutrition Status: Moderate malnutrition Context: Acute Illness Findings of the 6 clinical characteristics of malnutrition: Energy Intake: 75% or less of estimated energy requirements for 7 or more days Weight Loss: Greater than 2% over 1 week Body Fat Loss: No significant body fat loss Muscle Mass Loss: No significant muscle mass loss Fluid Accumulation: Mild Extremities (+1 BLE) Cage Operator Strength: Not Performed Nutrition Assessment: 79 y.o. female with past medical history below who presents with found down by his son/neighbors. She states she was sitting in chair fell off, found by his neighbors/son, she did not remember what happened, not sure how much time she was down. Son called EMS. She states she lives alone at home and her son manages her medication. She denies chest pain, shortness of breath, cough, wheezing, abdominal pain nausea, vomiting, bowel or bladder changes. She is complaining of some lower back pain on her left side. Her urinalysis was consistent with UTI and she was started on cefepime. CT head showed no definite evidence of acute infarction, mass lesion, or hemorrhage. CT head did show atrophy and remote appearing small vessel white matter/right basal ganglia chronic ischemic/neurodegenerative changes. CT abdomen and pelvis showed old right rib fractures with prior surgery with plating, remote appearing left rib fractures, osteopenia of the spine with mild superior endplate depression of L5, uncertain age. X-ray pelvis showed right RIC with old healed proximal femur fracture. Cardiology and Geriatrics consulted. Cardiology does not suspect cardiac etiology for syncope/fall and signed off. Patient currently ordered carb control (4) which is appropriate at this time, most recent HgbA1c is 9.5% (05/26/25). Received nursing referral for poor po intake and weight loss [employer]OR OF [employer]. Review of weight history patient has lost 3.8% in the past 10 days which is significant. Suspect weight loss may be from poor po intake [employer]. Patient awakened to name call during RD visit. Lunch tray on tray table with <50% consumed. RD asked patient how she was eating at home and how she receives her meals. Patient stated "I don't remember". Did state she does not drink any type of ONS at home and agreeable to trial Glucerna Shake during admission. Estimated Daily Nutrient Needs: Energy Requirements Based On: Kcal/kg Weight Used for Energy Requirements: [place] Weight for Energy Calculation (kg): 59 kg Total Energy Requirements (kcals/day): 7327-2307 (25-28) Weight Used for Protein Requirements: [place] Weight in Kg Used for Protein Requirements: 59 kg Estimated Total Protein (g/day): 59-71 (1.0-1.2) Estimated Daily Total Fluid (ml/day): per MD Nutrition Related Findings: Lives with: Alone Orientation Level: Oriented to person, Disoriented to place, Disoriented to time, Disoriented to situation Cognition: Follows commands, Poor safety awareness, Short term memory loss Best Verbal Response: Confused Patient Behaviors/Mood: Anxious, Other (Comment) (confused) Teeth: Missing teeth, Dentures upper, Dentures lower Feeding: Needs assistance Room Service Room Service: Selective Jose Martin Scale Score: 15 Wound Type: None Net IO Since Admission: No IO data has been entered for this period [06/06/25 1342] Gastrointestinal (WDL): Exceptions to WDL Edema: RLE Edema: Mild pitting, slight indentation, LLE Edema: Mild pitting, slight indentation Oxygen Therapy: None (Room air) Labs and meds reviewed: BMP: Recent Labs 06/05/25 0901 06/06/25 0502 NA 134* 138 K 5.1 4.1 CL 99 106 CO2 26 24 BUN 23 22 CREATININE 1.24* 0.89 GLUCOSE 332* 123* CALCIUM 10.8* 9.6 MG 1.6 -- PHOS 3.6 -- HEPATIC: Recent Labs 06/06/25 0502 AST 17 ALT 7 BILITOT 0.4 ALKPHOS 42 Glucose Date Value Ref Range Status 06/06/2025 132 (H) 70 - 100 mg/dL Final 06/06/2025 59 (L) 70 - 100 mg/dL Final 06/05/2025 161 (H) 70 - 100 mg/dL Final Scheduled: Scheduled Meds[1] Continuous: Continuous Meds[2] Current Nutrition Therapies: Adult diet Regular; 4 carb choices (60 gm/meal) Current Oral Intake Average Meal Intake: 26-50% (lunch) Anthropometric Measures: Height: 167.6 cm (5' 6") Admission Body Weight: 79.8 kg (176 lb) (bed scale) Usual Body Weight: 83 kg (183 lb) (05/26/25) [place] Body Weight (lbs) (Calculated): 130 lbs [place] Body Weight (Kg) (Calculated): 59 kg Wt Readings from Last 5 Encounters: 06/05/25 80.2 kg (176 lb 12.9 oz) 05/26/25 83 kg (183 lb) 02/20/25 73 kg (161 lb) 01/21/25 78.7 kg (173 lb 6.4 oz) 01/21/25 77.1 kg (170 lb) Nutrition Diagnosis: Altered nutrition-related lab values related to endocrine dysfuntion as evidenced by lab values Moderate malnutrition, In context of acute illness or injury related to inadequate protein-energy intake, cognitive or neurological impairment as evidenced by weight loss, poor intake prior to admission, localized or generalized fluid accumulation Nutrition Interventions: Nutrition Education/Counseling: No recommendation at this time Coordination of Nutrition Care: Continue to monitor while inpatient Goals: Goals: PO intake 50% or greater, by next RD assessment Nutrition Monitoring and Evaluation: Behavioral-Environmental Outcomes: None Identified Food/Nutrient Intake Outcomes: Food and Nutrient Intake, Supplement Intake Physical Signs/Symptoms Outcomes: Biochemical Data, GI Status, Fluid Status or Edema, Skin, Weight Discharge Planning: Too soon to determine Noa Rowley, MS RD LD Contact: [employer] or *[phone] [1] ascorbic acid, 1,000 mg, Oral, Daily calcium carbonate, 500 mg, Oral, Daily cefTRIAXone, 1,000 mg, IntraVENous, q24h cholecalciferol, 5,000 Units, Oral, Daily cyanocobalamin, 2,500 mcg, Oral, Daily donepezil, 10 mg, Oral, Daily fenofibrate, 54 mg, Oral, Daily insulin glargine, 24 Units, SubCUTAneous, q AM insulin lispro, 0-12 Units, SubCUTAneous, TID WC And insulin lispro, 0-12 Units, SubCUTAneous, Nightly insulin lispro, 12 Units, SubCUTAneous, BID AC losartan, 25 mg, Oral, Daily magnesium oxide, 400 mg, Oral, BID melatonin, 5 mg, Oral, Nightly nystatin, , Topical, BID pravastatin, 80 mg, Oral, Daily rivaroxaban, 20 mg, Oral, Daily with breakfast venlafaxine XR, 150 mg, Oral, Daily with breakfast [2] Images from the original note were not included. PHYSICAL THERAPY [facility] Initial Evaluation Name/MRN: Beverly Agee ([id number]) Evaluation Date: 06/06/2025 Date of : 1945 Admission Date: 06/05/2025 8:41 AM Age: 79 y.o. Room/Bed: N3-346/N3-346 A Discharge Recommendation: [facility] Facility Equipment Needed: (TBD) Assessment IMPRESSION: Pt with marked fear with mobility. During session, blood sugar was checked and was 59 (aide administered juice). Pt does not recall how she fell. She required min supine to sit, mod sit to stand, mod (nearly max) during gait with FWW. Pt normally is alone during the day and has son help her after work (meals, finances, she only showers when he's there). Based on today's mobility, it does not appear that pt can currently manage basic mobility without assist. If discharge were today, would recommend SNF-level PT Admitting Diagnosis: s/p fall, syncope, UTI, mixed dementia Prognosis: good Performance Deficits /Impairments: Decreased Functional Mobility, Decreased Endurance, Decreased Balance, and Decreased Cognition Decision Making: Medium Complexity Subjective Pt in bed, denies any pain from fall. She states she really doesn't understand how she fell-all she remembers is waking up at the bottom of basement steps (and she does not go to basement) and neighbor found her. Pt denies currently feeling dizzy or lightheaded. She states she does feel afraid of mobility. In regard to continence, she answers usually I can make it to bathroom." Aide checked blood sugar-which was 59. Pt states she did not feel abnormal. Pain: Pt denies any current pain. Past Medical History: Medical History[1] Past Surgical History: Surgical History[2] Admission Diagnosis: Patient Active Problem List Diagnosis Date Noted Fall, initial encounter 06/05/2025 Hypoglycemia 10/18/2024 Complicated UTI (urinary tract infection) 01/11/2024 Closed fracture of multiple ribs of right side, initial encounter 12/12/2023 Weakness 10/03/2022 Hyperglycemia 10/03/2022 Noncompliance with treatment regimen 06/30/2022 UTI (urinary tract infection) 11/29/2019 Closed fracture of one rib of left side 08/01/2021 Hemothorax 08/01/2021 Anticoagulated 08/01/2021 Mood disorder 11/13/2020 Hip fracture requiring operative repair, right, closed, initial encounter ([facility]) 01/21/2020 E-coli UTI 12/01/2019 H/O: CVA (cerebrovascular accident) 11/29/2019 Tobacco dependence syndrome 11/29/2019 Memory impairment 11/29/2019 Fall 11/29/2019 Leukocytosis 11/29/2019 Closed fracture of hip ([facility]) 11/29/2019 Unsteady gait 11/29/2019 Type 2 diabetes mellitus with hyperglycemia, with long-term current use of insulin ([facility]) 11/29/2019 Acute cystitis 11/29/2019 Obesity 11/29/2019 Atrial fibrillation ([facility]) 11/29/2019 Hypomagnesemia 02/18/2019 History of radial keratotomy 01/31/2017 Examination of participant in clinical trial 02/03/2016 Malignant neoplasm of upper-outer quadrant of female breast ([facility]) 02/03/2016 Psychophysiological insomnia 05/06/2015 Essential hypertension 05/06/2015 Mixed anxiety depressive disorder 05/06/2015 Hyperlipidemia 05/06/2015 Medical Precautions: No active isolations Proper PPE donned/doffed in accordance with facility standards. Fall Risk: Loyd Fall Risk Score: 70 (High Risk) Precautions/Restrictions: Fall Precautions Telemetry, Purewick, bed alarm Family/Caregiver Present: none Overall Cognitive Status: answers many questions, but for some questions, she states she does not know the answers (one in particular was who prepares her food at home) Overall Orientation Status: Oriented to Place, Oriented to Situation, Oriented to Person, and Disoriented to Time Vision: denies issues Hearing: normal Social/Functional History Lives in house-alone, but son checks on her daily and has neighbors who help. Pt notes she only takes showers when son is there (but she can do on own). He manages medication, finances. She has FWW (but states she can't recall if she uses it all of the time). Only does entry stairs when someone is there to watch me. Prior Level of Function Prior Level of ADL Function: Independent (assist with household ADLs, mostly indep with self-care) Prior Level of Mobility: Independent; Device: Front wheeled walker Prior Level of Transfers: Independent Objective Lower Extremity Assessment AROM: WNL -SLR approx 20 deg UE ROM WFL Strength: hip extn fair isometric (poor functionally), Hip ABD poor+, knee extn 4/5, DF 4/5 Sensation: identifies touch skyler LEs Balance: sitting good-, standing poor+ (mod with FWW) Bed Mobility: Supine to sit: Min Assist Scooting: Min Assist Transfers Sit to stand mod from standard height bed, min once bed elevated Ambulation Ambulation 1 Assistive device(s) used: Front wheeled walker Assist level: Mod Assist (bordering on max) Distance (ft): 20 Quality of gait: flexed trunk approx 15-20 deg. Minimal knee flex during swing skyler, Pt admits she is very afraid with gait. When approaching chair, she asked "what do I do now?" Outcome Measures AM-PAC How much HELP from another person do you currently need Turning from your back to your side while in a flat bed without using bedrails?: A Little Moving from lying on your back to sitting on the side of a flat bed without using bedrails?: A Little Moving to and from a bed to a chair (including a wheelchair)?: A Lot Standing up from a chair using your arms (wheelchair or bedside chair)?: A Lot Walking in a hospital room?: A Lot Stair climbing assessed?: No AM-PAC Inpatient Mobility Raw Score (No Stairs) : 12 JH-HLM -HLM Scale: Walked 10 steps or more (i.e. walked to restroom) Plan Pt would benefit from skilled acute PT services to address Strengthening, ROM, Gait Training, Balance Training, Functional Mobility Training, Safety Education and Training, Stair Training, Home Management Training, and Patient/Caregiver Training. Frequency: 3x/weekfor 2 weeks Barriers: Impaired balance, Lower extremity weakness, Limited safety awareness, Limited insight into deficits, and Medical complications Safety/Education Safety Safety Devices in place: call light within reach, left in chair, chair alarm in place, and aide aware (as she replaced Purewick) Restraints: No Education Only exit chair/ bed with assist (pt could repeat one minute later) Goals Patient Stated Goal: not fall down again Encounter Problems Encounter Problems (Active) Balance Patient will maintain static standing balance for 2 minutes with supervision in order to demonstrate decreased risk of falling. Start: 06/06/25 Expected End: 06/20/25 Mobility Patient will ambulate 75 feet with min assist and device in order to improve safety and independence with mobility. Start: 06/06/25 Expected End: 06/20/25 Patient will ascend and descend 3 stairs with one railing and min assist in order to safely negotiate home. Start: 06/06/25 Expected End: 06/20/25 1) if home 2) pt notes she never does stairs on own Transfers Patient will perform bed mobility with independence in order to improve independence and prepare for out of bed mobility. Start: 06/06/25 Expected End: 06/20/25 Patient will complete sit to stand transfer with supervision to device in order to improve safety and prepare for out of bed mobility. Start: 06/06/25 Expected End: 06/20/25 Therapy Time Individual Co-Treatment Co-Evaluation Time In 1140 Time Out 1205 Minutes 25 Victor M Fuentes PT Patient's Physical Therapy Plan of Care supervision is transferred to a [facility] Therapy Services Physical Therapist. Goals and/or treatment plan was established in collaboration with patient/family/other representatives. 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 right temporal /occiptial/ and hypocapal Depression History of blood transfusion Hyperlipidemia Hypertension Mixed Alzheimer's and vascular dementia ([facility]/HCC) 01/21/2025 Type 2 diabetes mellitus (HCC) Type II or unspecified type diabetes mellitus without mention of complication, not stated as uncontrolled (HCC) [2] Past Surgical History: Procedure Laterality Date BREAST LUMPECTOMY Left BREAST LUMPECTOMY Left 2012 s/p radiation as well CATARACT EXTRACTION W/ INTRAOCULAR LENS IMPLANT Bilateral 10/2015, 12/2015 SECTION (HISTORICAL) SECTION, LOW TRANSVERSE [id number] CHOLECYSTECTOMY DILATION AND CURETTAGE OF UTERUS FEMUR FRACTURE SURGERY Right 11/30/2019 HIP ARTHROPLASTY Right 01/21/2020 conversion JOINT REPLACEMENT Bilateral ROTATOR CUFF REPAIR Right TOTAL ABDOMINAL HYSTERECTOMY Hospitalist Progress Note 06/06/2025 Subjective: Admit Date: 06/05/2025 PCP: NENO IQBAL MD Room#: [facility]/N[facility] A BRIEF HOSPITAL COURSE: This is a 79-year-old female with past medical history of hypertension, hyperlipidemia, DM 2, paroxysmal A-fib on Xarelto, dementia, memory loss who was brought in after being found down by son at home for an unknown known period of time. Due to patient being on a blood thinner and possible fall she came in as a trauma team. CT head, cervical spine, chest, abdomen, pelvis, chest x-ray, pelvic x-ray all negative for fracture. Her urinalysis was consistent with UTI and she was started on cefepime. Patient with known dementia and is unable to recall the events that led to her fall and being on the basement floor. Cardiology was consulted as potential cardiac etiology for her syncope/fall. Echocardiogram was ordered and is pending. Interval History: Patient seen and examined. Chart reviewed. No overnight issues. Denies any new numbness, focal weakness, fever, chills, chest pain, shortness of breath, abdominal pain, nausea or vomiting. + Generalized weakness + memory issues. Case and plan discussed with patient and bedside nurse. All questions answered. Adult diet Regular; 4 carb choices (60 gm/meal) 24HR INTAKE/OUTPUT: No intake or output data in the 24 hours ending 06/06/25 0819 Past Medical History: Medical History[1] LABS: CBC: Recent Labs 06/05/25 0901 06/06/25 0502 WBC 18.2* 10.4 RBC 5.25* 4.48 HGB 15.4 13.0 HCT 45.6 40.1 MCV 86.9 89.5 RDW 12.6 13.0 PLT 314 243 BMP: Recent Labs 06/05/25 0901 06/06/25 0502 NA 134* 138 K 5.1 4.1 CL 99 106 CO2 26 24 BUN 23 22 CREATININE 1.24* 0.89 GLUCOSE 332* 123* CALCIUM 10.8* 9.6 ANIONGAP 9 8 LIVER PROFILE: Recent Labs 06/06/25 0502 AST 17 ALT 7 BILITOT 0.4 ALKPHOS 42 PROT 5.7* PT/INR: Recent Labs 06/05/25 09 PROTIME 11.9 INR 1.1 CARDIAC ENZYMES: No results for input(s): "TROPONINI" in the last 72 hours. Procalcitonin: No results found for: "PROCAL" COVID-19 PCR: No results for input(s): "COVID19" in the last 72 hours. Objective: Vitals: BP 136/60 (BP Location: Left arm, Patient Position: Sitting) Pulse 70 Temp (!) 35.8 C (96.5 F) (Temporal) Resp 16 Ht 5' 6" (1.676 m) Wt 176 lb 12.9 oz (80.2 kg) SpO2 96% BMI 28.54 kg/m Pulse Ox: SpO2 Av.2 % Min: 94 % Max: 100 % Supplemental O2: Physical Exam Constitutional: General: She is not in acute distress. HENT: Head: Normocephalic and atraumatic. Mouth/Throat: Mouth: Mucous membranes are moist. Eyes: Extraocular Movements: Extraocular movements intact. Conjunctiva/sclera: Conjunctivae normal. Cardiovascular: Rate and Rhythm: Normal rate and regular rhythm. Pulmonary: Effort: Pulmonary effort is normal. Breath sounds: Normal breath sounds. Abdominal: General: There is no distension. Palpations: Abdomen is soft. Tenderness: There is no abdominal tenderness. Musculoskeletal: General: No swelling. Skin: General: Skin is warm and dry. Neurological: General: No focal deficit present. Mental Status: She is alert. She is disoriented. Comments: +globally weak Psychiatric: Mood and Affect: Mood normal. Medications: Scheduled PRN Scheduled Meds[2] PRN Meds[3] Continuous Continuous Meds[4] Assessment Plan Fall Possible syncope -Monitor on telemetry -Seen by cardiology -Echocardiogram pending -Neurology consult Uncontrolled hypertension -Continue losartan 25 mg p.o. daily DM2 with hyperglycemia -Continue Lantus subcu in the a.m. -Continue Humalog 12 units 2 times daily before meals -Continue SSI -Check blood sugar POCT with meals and at bedtime to monitor for hypoglycemia -Hypoglycemia protocol Severe sepsis due to UTI, met in the ER -No drug-resistant organism previously -Change IV cefepime to IV Rocephin -Follow urine culture Lactic acidosis -Resolved Paroxysmal A-fib -Continue Xarelto Dementia-continue donepezil Generalized weakness-PT/OT Advance Directive: DNR-CCA Anticipated Discharge - Date - DC SNF 06/07 Extended Emergency Contact Information Primary Emergency Contact: Charbel Agee (POA) Address: [address] [place] [address] Mobile Relation: Child Pasteuriser Operator needed? No Secondary Emergency Contact: Marbin Agee [facility] Mobile Relation: Son Pasteuriser Operator needed? 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 right temporal /occiptial/ and hypocapal Depression History of blood transfusion Hyperlipidemia Hypertension Mixed Alzheimer's and vascular dementia (CMS/HCC) 01/21/2025 Type 2 diabetes mellitus (HCC) Type II or unspecified type diabetes mellitus without mention of complication, not stated as uncontrolled ([facility]) [2] ascorbic acid, 1,000 mg, Oral, Daily calcium carbonate, 500 mg, Oral, Daily cefepime, 2,000 mg, IntraVENous, q12h cholecalciferol, 5,000 Units, Oral, Daily cyanocobalamin, 2,500 mcg, Oral, Daily donepezil, 10 mg, Oral, Daily enoxaparin, 40 mg, SubCUTAneous, Daily fenofibrate, 54 mg, Oral, Daily insulin glargine, 24 Units, SubCUTAneous, q AM insulin lispro, 0-12 Units, SubCUTAneous, TID WC And insulin lispro, 0-12 Units, SubCUTAneous, Nightly insulin lispro, 12 Units, SubCUTAneous, BID AC losartan, 25 mg, Oral, Daily magnesium oxide, 400 mg, Oral, BID melatonin, 5 mg, Oral, Nightly nystatin, , Topical, BID pravastatin, 80 mg, Oral, Daily rivaroxaban, 20 mg, Oral, Daily with breakfast venlafaxine XR, 150 mg, Oral, Daily with breakfast [3] PRN medications: acetaminophen OR acetaminophen, dextrose, dextrose, glucagon (rDNA), glucose, labetalol, ondansetron ODT OR ondansetron, perflutren protein A microsphere (Optison) 3 mL in sodium chloride (PF) 0.9 % 10 mL IV, polyethylene glycol (PEG) 3350, traZODone [4] documented in this encounter [facility] 06-09-2025 Progress note Formatting of t his note might be different from the original. Patient Choice Patient Name: BEVERLY AGEE Date of : 1945 All Providers Sent Referral Name: [facility] Phone: [phone] Address: [address] [place] [address] [place] [address] [facility] 06-09-2025 Progress note Formatting of t his note might be different from the original. Discharge med list transmitted to [facility] via [facility] per TCC request. [facility] 06-09-2025 Progress note Formatting of t his note might be different from the original. Transport arranged for 2pm to [facility]. Called and updated son/HPOA Charbel- agreeable. Phys, pt and bedside RN updated. [facility] 06-09-2025 Note [facility] 06-09-2025 Hospital course Narrative Hospitalist Discharge Summary Beverly Agee : 1945 Admit date: 06/05/2025 Discharge date: 06/09/2025 Admitting Physician: Josy Duenas MD Primary Care Physician: NENO IQBAL MD Code Status: Prior Hospital Course: 79-year-old female with past medical history of HTN,HPL, DM 2, paroxysmal A-fib on Xarelto, and dementia was brought in after being found down by son at home for an unknown known period of time. Due to patient being on a blood thinner and possible fall she came in as a trauma team. CT head, cervical spine, chest, abdomen, pelvis, chest x-ray, pelvic x-ray all negative for fracture. Her urinalysis was consistent with UTI and she was started on cefepime. Patient with known dementia and is unable to recall the events that led to her fall and being on the basement floor . patient was admitted to hospital for further workup of Syncope and collapse, found down for unknown timeframe- CPK only mild elevation, noited leukocytosis that rapidly improved. Echo reviewed and OK, seen by neurology and cardiology for syncope- not felt to be cardiogenic or neurogenic. Probably vagal episode. Recommended outpatient event monitor- found UTI- completed abx course. The patient is discharged in improved and stable condition. See discharge diagnoses list and medication adjustments below in med rec. DISCHARGE DIAGNOSIS: Fall, initial encounter Syncope with collapse UTI with Severe Sepsis Hypertension uncontrolled DM2 with hyperglycemia Generalized weakness Moderate malnutrition Afib Dementia Medical History[1] Discharge Instructions: Diet: Activity: as tolerated Disposition: Patient discharged in stable condition to SNF. Greater than 31 minutes spent discharging the patient and coming up with patient discharge plan. Vitals: BP 137/63 (BP Location: Right arm, Patient Position: Sitting) Pulse 58 Temp 36.4 C (97.6 F) (Temporal) Resp 14 Ht 5' 6" (1.676 m) Wt 176 lb 12.9 oz (80.2 kg) SpO2 94% BMI 28.54 kg/m Body mass index is 28.54 kg/m . Pulse Ox: SpO2 Av.5 % Min: 94 % Max: 95 % Supplemental O2: General appearance: No apparent distress HEENT: Eyes: No scleral icterus Oral: Tongue is semi-moist Cardiovascular: S1/S2 heard, RRR Respiratory: Clear to auscultation bilaterally Abdomen: Soft, non-tender, non-distended bowel sounds positive Musculoskeletal: No obvious deformities seen Discharge Medications: Medication List START taking these medications insulin glargine 100 UNIT/ML injection Commonly known as: Lantus Inject 20 Units under the skin every morning. Start taking on: June 10, 2025 Replaces: Basaglar KwikPen 100 UNIT/ML pen Insulin Lispro 100 UNIT/ML solution injection Commonly known as: Humalog Inject 8 Units under the skin 2 times daily (before meals). nystatin ointment Commonly known as: Mycostatin Apply topically 2 times daily. CHANGE how you take these medications cyanocobalamin 1000 MCG tablet Commonly known as: Vitamin B-12 Take 1 tablet (1,000 mcg) by mouth daily. What changed: how much to take traZODone 50 MG tablet Commonly known as: Desyrel Take 1 tablet (50 mg) by mouth Nightly as needed for sleep. What changed: additional instructions venlafaxine XR 150 MG 24 hr capsule Commonly known as: Effexor XR Take 1 capsule (150 mg) by mouth daily (with breakfast). Do not crush or chew. Start taking on: June 10, 2025 What changed: medication strength how much to take CONTINUE taking these medications ascorbic acid 500 MG tablet Commonly known as: Vitamin C CALCIUM 600 PO cholecalciferol 25 MCG (1000 UT) tablet Commonly known as: Vitamin D3 Dexcom G7 Sensor misc donepezil 10 MG tablet Commonly known as: Aricept Take 1 tablet (10 mg) by mouth daily. Drug [place] Unifine Pentips Plus 32G X 4 MM misc Generic drug: insulin pen needle fenofibrate 54 MG tablet Commonly known as: Tricor Take 1 tablet (54 mg) by mouth daily. losartan 25 MG tablet Commonly known as: Cozaar Take 1 tablet (25 mg) by mouth daily. magnesium oxide 400 (240 Mg) MG tablet Commonly known as: Mag-Ox Take 1 tablet (400 mg) by mouth 2 times daily. melatonin 5 MG tablet Take 1 tablet (5 mg) by mouth Nightly. pravastatin 80 MG tablet Commonly known as: Pravachol Take 1 tablet (80 mg) by mouth in the morning. Xarelto 20 MG tablet Generic drug: rivaroxaban TAKE 1 TABLET BY MOUTH EVERY MORNING WITH BREAKFAST STOP taking these medications Basaglar KwikPen 100 UNIT/ML pen Generic drug: insulin glargine Replaced by: insulin glargine 100 UNIT/ML injection NovoLOG FLEXPEN 100 UNIT/ML pen Generic drug: insulin aspart Where to Get Your Medications Information about where to get these medications is not yet available Ask your nurse or doctor about these medications cyanocobalamin 1000 MCG tablet insulin glargine 100 UNIT/ML injection Insulin Lispro 100 UNIT/ML solution injection nystatin ointment traZODone 50 MG tablet venlafaxine XR 150 MG 24 hr capsule Recommended Follow-up: Neno Iqbal MD [id number] [place] [phone] Schedule an appointment as soon as possible for a visit post hospital follow up Complexity of Follow up: [] Moderate Complexity: follow up within 7-14 calendar days (37873) [x] Severe Complexity: follow up within 7 calendar days (24758) Follow up Testing, Pending results or Referrals at Transitional Care Visit: [x] yes [] no Instructions to MA: Please call patient on day after discharge (must document patient contacted within 2 business days of discharge). Follow up questions for MA: 1. Did you get medications filled and taking them as instructed from discharge? 2. Are you following your discharge instructions from your hospital stay? 3. Please confirm patient is scheduled for a follow up appointment within the above time frame. 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 Confirmed pickup time of 2:00pm on 06/09/25 by transport Brandizi at phone number [phone]. Location of facility drop off is [facility]. Facility notified via Ceon, TCC notified on secure chat. [facility] 06-09-2025 Progress note Formatting of t his note might be different from the original. Care Management Progress Note Short Medical why still here: pt being treated following a fall. Medically stable for discharge. Planned Discharge Disposition: auth obtained for skilled care at [facility]. Phys updated for completion of discharge orders. SW to complete pasr d/t OBS status. INSURANCE RISK MANAGER to arrange transport Called son/JAMES Barger- introduced self and role. Discussed above plan and son agreeable. Barriers/Today we still Wait: discharge today/phys orders. Length of Stay (Days): 0 GMLOS: 3.4 [facility] 06-09-2025 Hospital Discharge instructions Jenni Garrison RN - 06/09/2025 9:55 AM EDT Images from the original note were not included. Continuity of Care Form Patient Name: Beverly Agee : 1945 Admit date: 06/05/2025 Discharge date: 06/09/2025 Code Status Order: DNR-CCA Advance Directives: Y Admitting Physician: Josy Duenas MD PCP: NENO IQBAL MD Discharging Nurse: Jenni [facility] Hospital Unit/Room#: N4-463/[id number] A Discharging Unit Phone Number: Jenni Emergency Contact: Extended Emergency Contact Information Primary Emergency Contact: Félix ArriolaDAINACharbel Bautista Address: [address] [place] [address] [facility] Mobile Relation: Child Pasteuriser Operator needed? No Secondary Emergency Contact: Marbin Agee [facility] Mobile Relation: Son Pasteuriser Operator needed? No Past Surgical History: Past Surgical History: Procedure Laterality Date BREAST LUMPECTOMY Left BREAST LUMPECTOMY Left 2012 s/p radiation as well CATARACT EXTRACTION W/ INTRAOCULAR LENS IMPLANT Bilateral 10/2015, 12/2015 SECTION (HISTORICAL) SECTION, LOW TRANSVERSE [id number] CHOLECYSTECTOMY DILATION AND CURETTAGE OF UTERUS FEMUR FRACTURE SURGERY Right 11/30/2019 HIP ARTHROPLASTY Right 01/21/2020 conversion JOINT REPLACEMENT Bilateral ROTATOR CUFF REPAIR Right TOTAL ABDOMINAL HYSTERECTOMY Immunization History: Immunization History Administered Date(s) Administered Influenza Whole 06/27/2012, 05/21/2013 Influenza, High Dose Seasonal, Preservative Free 08/11/2015, 08/07/2016, 06/06/2017, 07/02/2017, 07/21/2019, 06/28/2022 Influenza, High-dose Seasonal, Quadrivalent, Preservative Free 07/04/2021 Influenza, Unspecified 06/27/2012, 05/21/2013, 07/10/2014 Influenza, adjuvanted, trivalent, preservative-free 06/05/2025 Influenza, seasonal, injectable 07/10/2014, 08/11/2015 Pfizer SARS-CoV-2 Vaccination 11/12/2020, 12/02/2020, 06/16/2021 Pneumococcal Conjugate PCV 13 08/11/2015 Pneumococcal Conjugate, Unspecified 08/01/2012 Pneumococcal Polysaccharide PPSV23 08/07/2016 Active Problems: Medical Problems Problem List * (Principal) Fall, initial encounter Noncompliance with treatment regimen Weakness UTI (urinary tract infection) Hyperglycemia Closed fracture of multiple ribs of right side, initial encounter Complicated UTI (urinary tract infection) Hypoglycemia Moderate malnutrition (CMS/HCC) (HCC) Mood disorder Overview Signed 06/23/2022 9:33 AM by Corin Lucero MA Last Assessment & Plan: Unsure ofstability of patient on Effexor and Remeron and compliance for diabetic management. Closed fracture of one rib of left side Hemothorax Anticoagulated H/O: CVA (cerebrovascular accident) Tobacco dependence syndrome Hip fracture requiring operative repair, right, closed, initial encounter ([facility]) Memory impairment Examination of participant in clinical trial Malignant neoplasm of upper-outer quadrant of female breast (HCC) Fall Leukocytosis Closed fracture of hip ([facility]) Unsteady gait Type 2 diabetes mellitus with hyperglycemia, with long-term current use of insulin (HCC) Acute cystitis E-coli UTI Obesity History of radial keratotomy Psychophysiological insomnia Hypomagnesemia Essential hypertension Overview Signed 06/23/2022 9:33 AM by Corin Lucero MA Last Assessment & Plan: Controlled on losartan. Mixed anxiety depressive disorder Hyperlipidemia Overview Signed 06/23/2022 9:33 AM by Corin Lucero MA Last Assessment & Plan: Uncertain control since patient has not had any lab work done on pravastatin. Atrial fibrillation ([facility]) Isolation/Infection: No active isolations No active infections Nurse Assessment: Last Vital Signs: BP 137/63 (BP Location: Right arm, Patient Position: Sitting) Pulse 58 Temp 36.4 C (97.6 F) (Temporal) Resp 14 Ht 1.676 m (5' 6") Wt 80.2 kg (176 lb 12.9 oz) SpO2 94% BMI 28.54 kg/m Last documented pain score (0-10 scale): Last Weight: Wt Readings from Last 1 Encounters: 06/05/25 80.2 kg (176 lb 12.9 oz) Mental Status: SEAN Patient Mental Status: oriented and alert IV Access: SEAN IV Access: None Nursing Mobility/ADLs: Walking Total assistance Transfer Total assistance Bathing Total assistance Dressing Total assistance Toileting Total assistance Feeding Minimal assistance Photography Intern Minimal assistance Med Delivery yes Wound Care Documentation and Therapy: Wound/Incision 12/12/23 Pressure Injury Sacrum Medial (Active) Number of days: 544 Wound/Incision 12/17/23 Incision Flank Right (Active) Number of days: 540 Wound/Incision 01/11/24 Incision Back Right (Active) Number of days: 515 Wound/Incision 01/12/24 Traumatic Ischium Right;Lateral (Active) Number of days: 513 Elimination: Continence: Bowel: no Bladder: no Urinary Catheter: None Colostomy/Ileostomy/Ileal Conduit: None Date of Last BM: 06/07/2025 Intake/Output Summary (Last 24 hours) at 06/09/2025 0919 Last data filed at 06/09/2025 0553 Gross per 24 hour Intake 100 ml Output 700 ml Net -600 ml I/O last 3 completed shifts: In: 100 (1.2 mL/kg) [P.O.:100] Out: 700 (8.7 mL/kg) [Urine:700 (0.2 mL/kg/hr)] Weight: 80.2 kg Safety Concerns: sundowners syndrome, history of falls (last 30 days), and at risk for falls Impairments/Disabilities: none Nutrition Therapy: Current Nutrition Therapy: Oral diet: general and carb control 4 carbs/meal (1800kcals/day) Routes of Feeding: oral Liquids: thin liquids Daily Fluid Restriction: no Last Modified Barium Swallow with Video (Video Swallowing Test): not done Treatments at the Time of Hospital Discharge: Respiratory Treatments: . Oxygen Therapy: is not on home oxygen therapy. Ventilator: No ventilator support Rehab Therapies: physical therapy, occupational therapy, nursing, and aide Weight Bearing Status/Restrictions: no restriction Other Medical Equipment (for information only, NOT a DME order): bedside commode, wheeled walker, and wheelchair Other Treatments: Patient's personal belongings (please select all that are sent with patient): 2 bags of belongings RN SIGNATURE: MANAGEMENT/SOCIAL WORK SECTION Inpatient Status Date: OBS 06/05/25 Discharging to Facility/ Agency Name: [facility] (3 reviews) custodial in [place], [place] [address] [place] [address] 12 mi Open 24 hours Hydroelectric Systems Technician/Roll Dough Divider signature: ICIAN SECTION Name: Beverly Agee Prognosis: good Condition at Discharge: stable Rehab Potential (if transferring to Rehab): good Recommended Labs or Other Treatments After Discharge: cbc bmp in 3-5 days The individual is being admitted to a nursing facility directly from an [facility] or a unit of a hospital that is not operated by or licensed by [facility] under section 5119.14 or 5160-3-15.1 5 The individual requires the level of services provided by a nursing facility for the condition for which he or she was treated in the hospital and, Physician Certification: I certify the above information and transfer of Beverly Agee is necessary for the continuing treatment of the diagnosis listed and that she requires intermediate facility for less than 30 days. Update Admission H&P: No change in H&P PHYSICIAN SIGNATURE: documented in this encounter [facility] 06-08-2025 Progress note Formatting of t his note might be different from the original. Care Management Progress Note Short Medical why still here: pt adm for tx/evaluation after fall at home. Cardiology reviewed and signed off. Planned Discharge Disposition: met with pt- introduced self and role. Pt from home with son. Pt uses a walker at baseline. Son helps with meds- uses daily pill box. Son provides transportation. Pt says her neighbor helps prn also. No active HC. Discussed discharge plan and recommendation by therapy to go to SNF. Pt agreeable and stated she had "gone somewhere before". Per records, [facility]. Informed pt of last SNF she was at and pt agreeable to return. [facility] received referral and accepted- will submit for auth. Barriers/Today we still Wait: auth for SNF. Length of Stay (Days): 0 GMLOS: 3.4 [facility] 06-08-2025 Note Referral placed to [facility] via [facility] per TCC request. Await review and response regarding ability to accept. TCC notified. [facility] 06-08-2025 Progress note Formatting of t his note might be different from the original. Referral placed to [facility] via [facility] per TCC request. Await review and response regarding ability to accept. TCC notified. [facility] 06-07-2025 Nurse Note This RN called report to 4N RN. T [facility] 06-06-2025 Consult note Associated Order (s): IP CONSULT TO NEUROLOGY Neurology Consult Note - Neurology Service Patient Name: Beverly Agee Patient : 1945 Acct: [id number] Date of Admission: 06/05/2025 Room[facility]Bed: [facility] A PCP: NENO IQBAL MD 06/06/2025 Reason for Consult: Syncope. History of Presenting Illness: The patient is 79 y.o. -female- who is being seen as a new consult for syncope. Symptom: Episode of loss of consciousness, found down on the ground. Manner of onset: Apparently sudden. Description of event(s): The patient was reportedly sitting in her chair and was found down on the ground apparently after she fell from her chair. She was found down by her son and it is unclear how long the patient was down on the ground. The patient did not remember what happened to her and, the patient's son called EMS services for assistance. No associated tongue bite or loss of bowel or bladder control reported with the episode. Initially, she had a low blood pressure reported at the time of the incident however since then she has had no episode of low BP. The patient's urinalysis study in the ER showed positive nitrites and was noted positive for urinary tract infection. Duration: The exact duration of patient being down on the ground is unclear. However, the episode of LOC appears to have been brief lasting for anywhere between 1 to 2 minutes at best. Current state: The patient is currently back to her baseline mentation and is symptom-free. Severity: At the time of occurrence symptoms were severe. Modifying factors: The patient has a prior past medical history of hypertension, hyperlipidemia, atrial fibrillation-on Xarelto therapy and, generalized arthritis and low back pain especially on the left side, history of breast cancer and mild mixed Alzheimer's/vascular dementia. No other pertinent precipitating or modifying factors reported except for the ones noted above. Neurology service was consulted. Thank you. Review of systems: General: No reported chills, no fever, reports obesity. HEENT: No reported headache, no head injury. No reported eye pain or eye congestion. No reported ear pain or ear congestion. No reported nasal congestion or nosebleed. No reported throat congestion or infection. Neck: No reported neck pain. No reported neck stiffness. Respiratory: No reported wheezing and no reported shortness of breath. Cardiac: No reported chest pain and no reported palpitations. Gastrointestinal: No reported nausea, vomiting, abdominal pain and, no reported diarrhea. Musculoskeletal: Reports generalized arthralgia and, mild low back pain. Endocrine: No reported thyroid disease. Reports type 2 diabetes mellitus. Psychiatry: No reported anxiety and no reported depression. Neurological: No reported alteration in mental state. Reported episode of LOC, resolved. No reported weakness in extremities. No reported speech deficit. No reported seizures. No reported tongue bite or loss of bowel/bladder control. No reported stroke. No reported visual changes. No reported vertigo. Reports modest hearing loss. Reports modest gait difficulty and reported recent fall event that was associated with LOC event. Past medical History, surgical history, family history and social history were reviewed with the patient/care provider and were reviewed in the chart. Only the available information is documented below. Thank you. Past Medical History: Medical History[1] Past Surgical History: Surgical History[2] Family History: Family History[3] Social History: TOBACCO: reports that she has been smoking cigarettes. She started smoking about 65 years ago. She has a 125.8 pack-year smoking history. She has never used smokeless tobacco. ETOH: reports that she does not currently use alcohol. RECREATIONAL DRUG USE: Social History Substance and Sexual Activity Drug Use Never The patient's medications and allergies were reviewed and the available information is documented below. Thank you. Allergies: Aspirin, Penicillins, and Sulfa antibiotics Home Medications: Prior to Admission medications Medication Sig Start Date End Date Taking? Authorizing Provider ascorbic acid (Vitamin C) 500 MG tablet Take 1,000 mg by mouth daily. Yes Historical Provider, Calcium Carbonate (CALCIUM 600 PO) Take 1 tablet by mouth daily. Yes Historical Provider, cholecalciferol (Vitamin D3) 25 MCG (1000 UT) tablet Take 5,000 Units by mouth daily. 125mcg 12/05/23 Yes Historical Provider, Continuous Glucose Sensor (Dexcom G7 Sensor) misc 1 Device as needed. Use a new sensor every 10 days. Yes Historical Provider, cyanocobalamin (Vitamin B-12) 1000 MCG tablet Take 2,500 mcg by mouth daily. Yes Historical Provider, donepezil (Aricept) 10 MG tablet Take 1 tablet (10 mg) by mouth daily. 01/21/25 01/21/26 Yes RADHA Mosqueda CNP Drug [place] Unifine Pentips Plus 32G X 4 MM misc use 1 (ONE) needle FOUR TIMES DAILY 03/29/23 Yes Historical Provider, insulin aspart (NovoLOG FLEXPEN) 100 UNIT/ML pen Inject 12 Units under the skin 2 times daily (before meals). 02/20/25 02/20/26 Yes John Cruz PA-C insulin glargine (Basaglar KwikPen) 100 UNIT/ML pen Inject 24 Units under the skin every morning. 02/20/25 02/20/26 Yes John Cruz PA-C magnesium oxide (Mag-Ox) 400 (240 Mg) MG tablet Take 1 tablet (400 mg) by mouth 2 times daily. 12/24/23 Yes RADHA Miller CNP melatonin 5 MG tablet Take 1 tablet (5 mg) by mouth Nightly. 12/24/23 Yes Shaun Wang APRN - DONY pravastatin (Pravachol) 80 MG tablet Take 1 tablet (80 mg) by mouth in the morning. 07/07/22 Yes Grecia Mccabe MD rivaroxaban (Xarelto) 20 MG tablet TAKE 1 TABLET BY MOUTH EVERY MORNING WITH BREAKFAST 07/07/22 Yes Grecia Mccabe MD fenofibrate (Tricor) 54 MG tablet Take 1 tablet (54 mg) by mouth daily. 12/25/23 02/20/25 RADHA Miller CNP losartan (Cozaar) 25 MG tablet Take 1 tablet (25 mg) by mouth daily. 12/25/23 05/26/25 RADHA Miller CNP traZODone (Desyrel) 50 MG tablet Take 50 mg by mouth Nightly as needed for sleep. Patient states she takes most nights Patient not taking: No sig reported Historical Provider, venlafaxine XR (Effexor XR) 75 MG 24 hr capsule Take 3 capsules (225 mg) by mouth daily (with breakfast). Do not crush or chew. Patient not taking: Reported on 06/05/2025 10/23/24 10/23/25 Waldo Guillen MD Current Hospital Medications: Current Medications[4] Continuous Infusions: Continuous Meds[5] Vital Signs: Patient Vitals for the past 24 hrs: BP Temp Temp src Pulse Resp SpO2 06/06/25 0702 136/60 (!) 35.8 C (96.5 F) Temporal 70 16 96 % 06/05/25 2009 127/87 36 C (96.8 F) Temporal 94 16 94 % 06/05/25 1616 146/64 36.2 C (97.2 F) Temporal 74 18 97 % Physical Examination: General Exam: Constitutional: The patient is modestly obese. Cardiovascular: S1 and S2, regular rate and rhythm no overt murmurs. No carotid bruit and normal carotid pulse. Extremities: No cyanosis, no clubbing, and no edema. Ophthalmology/funduscopic exam: Unremarkable/normal. Neurological Exam: Dexterity: The patient is RIGHT handed. Mental Status: Alert, Awake, Oriented x 4, Normal Speech and intact comprehension - 3/3 repetition and recall. Follows 1-3 step commands. Fund of knowledge: Adequate. Attention/concentration: Adequate. Cranial Nerves: CN-II, CN-III, CN-IV, CN-V, CN-, CN-VII, CN-VIII, CN-IX, CN-X, CN-XI and, CN-XII are within normal limits bilaterally except for modest bilateral hearing loss. Motor: Bulk = Symmetric and within normal limits bilaterally. Tone = Symmetric and within normal limits bilaterally. Strength = 5+/5 in all 4 extremities. DTRs = Trace throughout. Plantars = Down-going bilaterally. Abnormal movements = None. Opposition = Normal in both upper extremities. Pronator Drift = No pronator drift on the RIGHT and, no pronator drift on the LEFT side. Sensory: Light touch, pinprick and vibration exams are within normal limits. Coordination: Finger to nose is normal on the right side and, on the left side. Heel to whaley is normal on the right side and, on the left side. Rapid alternation movements are normal on the right side and, on the left side. Gait: Deferred due to patient's inability to participate at this time. Romberg: Deferred due to patient's inability to participate at this time. NIHSS score: N/A. Results: Labs: Last 24hrs Recent Results (from the past 24 hours) POCT glucose meter Collection Time: 06/05/25 4:15 PM Result Value Ref Range Glucose 161 (H) 70 - 100 mg/dL CBC Collection Time: 06/06/25 5:02 AM Result Value Ref Range Auto WBC 10.4 3.6 - 10.7 10*3/uL RBC 4.48 3.80 - 5.20 10*6/uL Hemoglobin 13.0 11.7 - 16.0 g/dL Hematocrit 40.1 35.0 - 47.0 % MCV 89.5 77.0 - 99.0 fL MCH 29.0 26.0 - 34.0 pg MCHC 32.4 30.5 - 36.0 % RDW 13.0 11.5 - 15.0 % Platelets 243 140 - 440 10*3/uL MPV 9.8 9.0 - 12.7 fL Comprehensive metabolic panel Collection Time: 06/06/25 5:02 AM Result Value Ref Range SODIUM 138 136 - 145 mmol/L POTASSIUM 4.1 3.5 - 5.1 mmol/L CHLORIDE 106 98 - 107 mmol/L CARBON DIOXIDE 24 23 - 31 mmol/L ANION GAP 8 3 - 13 mmol/L UREA NITROGEN 22 9 - 23 mg/dL CREATININE 0.89 0.57 - 1.11 mg/dL GLUCOSE 123 (H) 82 - 115 mg/dL CALCIUM 9.6 8.8 - 10.0 mg/dL AST (SGOT) 17 <34 U/L ALT 7 <30 U/L ALKALINE PHOSPHATASE 42 40 - 150 U/L ALBUMIN 3.1 (L) 3.4 - 4.8 g/dL BILIRUBIN, TOTAL 0.4 <1.2 mg/dL TOTAL PROTEIN 5.7 (L) 6.4 - 8.3 g/dL eGFR 66.9 >60.0 mL/min/1.73m*2 Vitamin D Deficiency Screening (Vit D 25) Collection Time: 06/06/25 5:02 AM Result Value Ref Range VIT D 25-OH, TOTAL 35 See comment ng/mL POCT glucose meter Collection Time: 06/06/25 11:52 AM Result Value Ref Range Glucose 59 (L) 70 - 100 mg/dL POCT glucose meter Collection Time: 06/06/25 12:42 PM Result Value Ref Range Glucose 132 (H) 70 - 100 mg/dL Since admission: Recent Labs 06/05/25 0901 06/05/25 1046 CKTOTAL 141 144 Recent Labs 06/06/25 0502 ALKPHOS 42 ALT 7 AST 17 BILITOT 0.4 Coagulation: Recent Labs 06/05/25 0901 INR 1.1 TSH: Lab Results Component Value Date TSH 2.07 10/21/2024 Radiology Personal review: CT head without contrast and CT cervical spine show no acute or pertinent findings. Neurophysiology Results: EEG: N/A EMG/NCS: N/A. ASSESSMENT / PLAN / RECOMMENDATIONS : Assessment: No clinical evidence of seizure in this patient at this time. Vasovagal versus cardiogenic syncope. Baseline history of multiple medical problems with currently positive urine for UTI/nitrite positive. Recommendations: 30-day cardiac event monitor placement for further evaluation and recommendations. If the above heart monitoring is negative in terms of capturing any pertinent episode then, please consider loop recorder assessment. Please continue with home medications, per discretion of the prescribing providers. Please implement fall precautions. Please continue with supportive care. Disposition/Discharge issues: Neurology service is signing off. Please recall us if/as needed. Further recommendations including discharge instructions, per primary and the other care providing teams. Attestation: I discussed the above assessment and plan with the patient and her family, present at the bedside in detail and addressed their questions and concerns to their expressed understanding and satisfaction. I reviewed patient's neuroimaging study, the CT head and CT cervical spine, myself. I also reviewed patient's outside charts and, lab workup myself. I discussed the above case with the attending of the primary team as well. Total time spent in providing care to this patient was 80 minutes. Thank you. 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 right temporal /occiptial/ and hypocapal Depression History of blood transfusion Hyperlipidemia Hypertension Mixed Alzheimer's and vascular dementia (CMS/HCC) 01/21/2025 Type 2 diabetes mellitus (HCC) Type II or unspecified type diabetes mellitus without mention of complication, not stated as uncontrolled (HCC) [2] Past Surgical History: Procedure Laterality Date BREAST LUMPECTOMY Left BREAST LUMPECTOMY Left 2012 s/p radiation as well CATARACT EXTRACTION W/ INTRAOCULAR LENS IMPLANT Bilateral 10/2015, 12/2015 SECTION (HISTORICAL) SECTION, LOW TRANSVERSE [id number] CHOLECYSTECTOMY DILATION AND CURETTAGE OF UTERUS FEMUR FRACTURE SURGERY Right 11/30/2019 HIP ARTHROPLASTY Right 01/21/2020 conversion JOINT REPLACEMENT Bilateral ROTATOR CUFF REPAIR Right TOTAL ABDOMINAL HYSTERECTOMY [3] Family History Problem Relation Name Age of Onset Asthma Son Thyroid disease Brother Cancer Mother Cancer Father Thyroid disease Mother Cancer Brother Asthma Son Asthma Son Diabetes Son Charbel Agee [4] Current Facility-Administered Medications: acetaminophen (Tylenol) tablet 650 mg, 650 mg, Oral, q6h PRN OR acetaminophen (Tylenol) suppository 650 mg, 650 mg, Rectal, q6h PRN, Jayy White MD ascorbic acid (Vitamin C) tablet 1,000 mg, 1,000 mg, Oral, Daily, Jayy White MD, 1,000 mg at 06/06/25 0920 calcium carbonate (Tums) chewable tablet 500 mg, 500 mg, Oral, Daily, Jayy White MD, 500 mg at 06/06/25 1522 cefTRIAXone (Rocephin) 1,000 mg in sodium chloride 0.9 % 50 mL IVPB Mini-Bag Plus, 1,000 mg, IntraVENous, q24h, Yayo Jennings DO, Last Rate: 100 mL/hr at 06/06/25 1523, 1,000 mg at 06/06/25 1523 cholecalciferol (Vitamin D-3) tablet 5,000 Units, 5,000 Units, Oral, Daily, Jayy White MD, 5,000 Units at 06/06/25 1522 cyanocobalamin (Vitamin B-12) tablet 2,500 mcg, 2,500 mcg, Oral, Daily, Jayy White MD, 2,500 mcg at 06/06/25 0920 dextrose 5 % infusion, 100 mL/hr, IntraVENous, PRN, Jayy White MD dextrose 50 % solution 12.5 g, 12.5 g, IntraVENous, PRN, Jayy White MD donepezil (Aricept) tablet 10 mg, 10 mg, Oral, Daily, Jayy White MD, 10 mg at 06/06/25 0921 fenofibrate (Tricor) tablet 54 mg, 54 mg, Oral, Daily, Jayy White MD, 54 mg at 06/06/25 0923 glucagon (human recombinant) injection 1 mg, 1 mg, IntraMUSCular, PRN, Jayy White MD glucose oral gel 15 g, 15 g, Oral, PRN, Jayy White MD insulin glargine (Lantus) injection 20 Units, 20 Units, SubCUTAneous, q AM, Yayo Jennings DO, 20 Units at 06/06/25 1520 Insulin Lispro (Humalog) injection 0-12 Units, 0-12 Units, SubCUTAneous, TID WC, 2 Units at 06/05/25 1738 AND Insulin Lispro (Humalog) injection 0-12 Units, 0-12 Units, SubCUTAneous, Nightly, Jayy White MD, 2 Units at 06/05/25 213 Insulin Lispro (Humalog) injection 8 Units, 8 Units, SubCUTAneous, BID Yayo NEGRETE DO labetalol (Normodyne,Trandate) injection 10 mg, 10 mg, IntraVENous, q4h PRN, Jayy White MD losartan (Cozaar) tablet 25 mg, 25 mg, Oral, Daily, Jayy White MD, 25 mg at 06/06/25919 magnesium oxide (Mag-Ox) tablet 400 mg, 400 mg, Oral, BID, Jayy White MD, 400 mg at 06/06/25920 melatonin tablet 5 mg, 5 mg, Oral, Nightly, Jayy White MD, 5 mg at 06/05/252125 nystatin (Mycostatin) ointment, , Topical, BID, Shalini Prado MD, Given at 06/06/25 0531 ondansetron ODT (Zofran-ODT) disintegrating tablet 4 mg, 4 mg, Oral, q8h PRN OR ondansetron (Zofran) injection 4 mg, 4 mg, IntraVENous, q6h PRN, Jayy White MD perflutren protein A microsphere (Optison) 3 mL in sodium chloride (PF) 0.9 % 10 mL IV, 0-10 mL, IntraVENous, Once PRN, Jayy White MD polyethylene glycol (PEG) 3350 (Miralax) packet 17 g, 17 g, Oral, Daily PRN, Jayy White MD pravastatin (Pravachol) tablet 80 mg, 80 mg, Oral, Daily, Jayy White MD, 80 mg at 06/06/25920 rivaroxaban (Xarelto) tablet 20 mg, 20 mg, Oral, Daily with breakfast, Jayy White MD, 20 mg at 06/06/2521 traZODone (Desyrel) tablet 50 mg, 50 mg, Oral, Nightly PRN, Jayy White MD venlafaxine XR (Effexor XR) 24 hr capsule 150 mg, 150 mg, Oral, Daily with breakfast, Jayy White MD, 150 mg at 06/06/25 0920 [5] [facility]25 Consult note Associated Order (s): IP CONSULT TO NEUROLOGY Neurology Consult Note - Neurology Service Patient Name: Beverly Agee Patient : 1945 Acct: [id number] Date of Admission: 06/05/2025 Room[facility]Bed: [facility] A PCP: NENO IQBAL MD 06/06/2025 Reason for Consult: Syncope. History of Presenting Illness: The patient is 79 y.o. -female- who is being seen as a new consult for syncope. Symptom: Episode of loss of consciousness, found down on the ground. Manner of onset: Apparently sudden. Description of event(s): The patient was reportedly sitting in her chair and was found down on the ground apparently after she fell from her chair. She was found down by her son and it is unclear how long the patient was down on the ground. The patient did not remember what happened to her and, the patient's son called EMS services for assistance. No associated tongue bite or loss of bowel or bladder control reported with the episode. Initially, she had a low blood pressure reported at the time of the incident however since then she has had no episode of low BP. The patient's urinalysis study in the ER showed positive nitrites and was noted positive for urinary tract infection. Duration: The exact duration of patient being down on the ground is unclear. However, the episode of LOC appears to have been brief lasting for anywhere between 1 to 2 minutes at best. Current state: The patient is currently back to her baseline mentation and is symptom-free. Severity: At the time of occurrence symptoms were severe. Modifying factors: The patient has a prior past medical history of hypertension, hyperlipidemia, atrial fibrillation-on Xarelto therapy and, generalized arthritis and low back pain especially on the left side, history of breast cancer and mild mixed Alzheimer's/vascular dementia. No other pertinent precipitating or modifying factors reported except for the ones noted above. Neurology service was consulted. Thank you. Review of systems: General: No reported chills, no fever, reports obesity. HEENT: No reported headache, no head injury. No reported eye pain or eye congestion. No reported ear pain or ear congestion. No reported nasal congestion or nosebleed. No reported throat congestion or infection. Neck: No reported neck pain. No reported neck stiffness. Respiratory: No reported wheezing and no reported shortness of breath. Cardiac: No reported chest pain and no reported palpitations. Gastrointestinal: No reported nausea, vomiting, abdominal pain and, no reported diarrhea. Musculoskeletal: Reports generalized arthralgia and, mild low back pain. Endocrine: No reported thyroid disease. Reports type 2 diabetes mellitus. Psychiatry: No reported anxiety and no reported depression. Neurological: No reported alteration in mental state. Reported episode of LOC, resolved. No reported weakness in extremities. No reported speech deficit. No reported seizures. No reported tongue bite or loss of bowel/bladder control. No reported stroke. No reported visual changes. No reported vertigo. Reports modest hearing loss. Reports modest gait difficulty and reported recent fall event that was associated with LOC event. Past medical History, surgical history, family history and social history were reviewed with the patient/care provider and were reviewed in the chart. Only the available information is documented below. Thank you. Past Medical History: Medical History[1] Past Surgical History: Surgical History[2] Family History: Family History[3] Social History: TOBACCO: reports that she has been smoking cigarettes. She started smoking about 65 years ago. She has a 125.8 pack-year smoking history. She has never used smokeless tobacco. ETOH: reports that she does not currently use alcohol. RECREATIONAL DRUG USE: Social History Substance and Sexual Activity Drug Use Never The patient's medications and allergies were reviewed and the available information is documented below. Thank you. Allergies: Aspirin, Penicillins, and Sulfa antibiotics Home Medications: Prior to Admission medications Medication Sig Start Date End Date Taking? Authorizing Provider ascorbic acid (Vitamin C) 500 MG tablet Take 1,000 mg by mouth daily. Yes Historical Provider, Calcium Carbonate (CALCIUM 600 PO) Take 1 tablet by mouth daily. Yes Historical Provider, cholecalciferol (Vitamin D3) 25 MCG (1000 UT) tablet Take 5,000 Units by mouth daily. 125mcg 4/10/24 Yes Historical Provider, Continuous Glucose Sensor (Dexcom G7 Sensor) misc 1 Device as needed. Use a new sensor every 10 days. Yes Historical Provider, cyanocobalamin (Vitamin B-12) 1000 MCG tablet Take 2,500 mcg by mouth daily. Yes Historical Provider, donepezil (Aricept) 10 MG tablet Take 1 tablet (10 mg) by mouth daily. 01/21/25 01/21/26 Yes RADHA Mosqueda CNP Drug [place] Unifine Pentips Plus 32G X 4 MM misc use 1 (ONE) needle FOUR TIMES DAILY 03/29/23 Yes Historical Provider, insulin aspart (NovoLOG FLEXPEN) 100 UNIT/ML pen Inject 12 Units under the skin 2 times daily (before meals). 02/20/25 02/20/26 Yes John Cruz PA-C insulin glargine (Basaglar KwikPen) 100 UNIT/ML pen Inject 24 Units under the skin every morning. 02/20/25 02/20/26 Yes John Cruz PA-C magnesium oxide (Mag-Ox) 400 (240 Mg) MG tablet Take 1 tablet (400 mg) by mouth 2 times daily. 12/24/23 Yes RADHA Miller CNP melatonin 5 MG tablet Take 1 tablet (5 mg) by mouth Nightly. 12/24/23 Yes RADHA Miller CNP pravastatin (Pravachol) 80 MG tablet Take 1 tablet (80 mg) by mouth in the morning. 07/07/22 Yes Grecia Mccabe MD rivaroxaban (Xarelto) 20 MG tablet TAKE 1 TABLET BY MOUTH EVERY MORNING WITH BREAKFAST 07/07/22 Yes Grecia Mccabe MD fenofibrate (Tricor) 54 MG tablet Take 1 tablet (54 mg) by mouth daily. 12/25/23 02/20/25 RADHA Miller CNP losartan (Cozaar) 25 MG tablet Take 1 tablet (25 mg) by mouth daily. 12/25/23 05/26/25 RADHA Miller CNP traZODone (Desyrel) 50 MG tablet Take 50 mg by mouth Nightly as needed for sleep. Patient states she takes most nights Patient not taking: No sig reported Historical Provider, MD venlafaxine XR (Effexor XR) 75 MG 24 hr capsule Take 3 capsules (225 mg) by mouth daily (with breakfast). Do not crush or chew. Patient not taking: Reported on 06/05/2025 10/23/24 10/23/25 Waldo Guillen MD Current Hospital Medications: Current Medications[4] Continuous Infusions: Continuous Meds[5] Vital Signs: Patient Vitals for the past 24 hrs: BP Temp Temp src Pulse Resp SpO2 06/06/25 0702 136/60 (!) 35.8 C (96.5 F) Temporal 70 16 96 % 06/05/25 2009 127/87 36 C (96.8 F) Temporal 94 16 94 % 06/05/25 1616 146/64 36.2 C (97.2 F) Temporal 74 18 97 % Physical Examination: General Exam: Constitutional: The patient is modestly obese. Cardiovascular: S1 and S2, regular rate and rhythm no overt murmurs. No carotid bruit and normal carotid pulse. Extremities: No cyanosis, no clubbing, and no edema. Ophthalmology/funduscopic exam: Unremarkable/normal. Neurological Exam: Dexterity: The patient is RIGHT handed. Mental Status: Alert, Awake, Oriented x 4, Normal Speech and intact comprehension - 3/3 repetition and recall. Follows 1-3 step commands. Fund of knowledge: Adequate. Attention/concentration: Adequate. Cranial Nerves: CN-II, CN-III, CN-IV, CN-V, CN-, CN-VII, CN-VIII, CN-IX, CN-X, CN-XI and, CN-XII are within normal limits bilaterally except for modest bilateral hearing loss. Motor: Bulk = Symmetric and within normal limits bilaterally. Tone = Symmetric and within normal limits bilaterally. Strength = 5+/5 in all 4 extremities. DTRs = Trace throughout. Plantars = Down-going bilaterally. Abnormal movements = None. Opposition = Normal in both upper extremities. Pronator Drift = No pronator drift on the RIGHT and, no pronator drift on the LEFT side. Sensory: Light touch, pinprick and vibration exams are within normal limits. Coordination: Finger to nose is normal on the right side and, on the left side. Heel to whaley is normal on the right side and, on the left side. Rapid alternation movements are normal on the right side and, on the left side. Gait: Deferred due to patient's inability to participate at this time. Romberg: Deferred due to patient's inability to participate at this time. NIHSS score: N/A. Results: Labs: Last 24hrs Recent Results (from the past 24 hours) POCT glucose meter Collection Time: 06/05/25 4:15 PM Result Value Ref Range Glucose 161 (H) 70 - 100 mg/dL CBC Collection Time: 06/06/25 5:02 AM Result Value Ref Range Auto WBC 10.4 3.6 - 10.7 10*3/uL RBC 4.48 3.80 - 5.20 10*6/uL Hemoglobin 13.0 11.7 - 16.0 g/dL Hematocrit 40.1 35.0 - 47.0 % MCV 89.5 77.0 - 99.0 fL MCH 29.0 26.0 - 34.0 pg MCHC 32.4 30.5 - 36.0 % RDW 13.0 11.5 - 15.0 % Platelets 243 140 - 440 10*3/uL MPV 9.8 9.0 - 12.7 fL Comprehensive metabolic panel Collection Time: 06/06/25 5:02 AM Result Value Ref Range SODIUM 138 136 - 145 mmol/L POTASSIUM 4.1 3.5 - 5.1 mmol/L CHLORIDE 106 98 - 107 mmol/L CARBON DIOXIDE 24 23 - 31 mmol/L ANION GAP 8 3 - 13 mmol/L UREA NITROGEN 22 9 - 23 mg/dL CREATININE 0.89 0.57 - 1.11 mg/dL GLUCOSE 123 (H) 82 - 115 mg/dL CALCIUM 9.6 8.8 - 10.0 mg/dL AST (SGOT) 17 <34 U/L ALT 7 <30 U/L ALKALINE PHOSPHATASE 42 40 - 150 U/L ALBUMIN 3.1 (L) 3.4 - 4.8 g/dL BILIRUBIN, TOTAL 0.4 <1.2 mg/dL TOTAL PROTEIN 5.7 (L) 6.4 - 8.3 g/dL eGFR 66.9 >60.0 mL/min/1.73m*2 Vitamin D Deficiency Screening (Vit D 25) Collection Time: 06/06/25 5:02 AM Result Value Ref Range VIT D 25-OH, TOTAL 35 See comment ng/mL POCT glucose meter Collection Time: 06/06/25 11:52 AM Result Value Ref Range Glucose 59 (L) 70 - 100 mg/dL POCT glucose meter Collection Time: 06/06/25 12:42 PM Result Value Ref Range Glucose 132 (H) 70 - 100 mg/dL Since admission: Recent Labs 06/05/25 0901 06/05/25 1046 CKTOTAL 141 144 Recent Labs 06/06/25 0502 ALKPHOS 42 ALT 7 AST 17 BILITOT 0.4 Coagulation: Recent Labs 06/05/25 0901 INR 1.1 TSH: Lab Results Component Value Date TSH 2.07 10/21/2024 Radiology Personal review: CT head without contrast and CT cervical spine show no acute or pertinent findings. Neurophysiology Results: EEG: N/A EMG/NCS: N/A. ASSESSMENT / PLAN / RECOMMENDATIONS : Assessment: No clinical evidence of seizure in this patient at this time. Vasovagal versus cardiogenic syncope. Baseline history of multiple medical problems with currently positive urine for UTI/nitrite positive. Recommendations: 30-day cardiac event monitor placement for further evaluation and recommendations. If the above heart monitoring is negative in terms of capturing any pertinent episode then, please consider loop recorder assessment. Please continue with home medications, per discretion of the prescribing providers. Please implement fall precautions. Please continue with supportive care. Disposition/Discharge issues: Neurology service is signing off. Please recall us if/as needed. Further recommendations including discharge instructions, per primary and the other care providing teams. Attestation: I discussed the above assessment and plan with the patient and her family, present at the bedside in detail and addressed their questions and concerns to their expressed understanding and satisfaction. I reviewed patient's neuroimaging study, the CT head and CT cervical spine, myself. I also reviewed patient's outside charts and, lab workup myself. I discussed the above case with the attending of the primary team as well. Total time spent in providing care to this patient was 80 minutes. Thank you. 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 right temporal /occiptial/ and hypocapal Depression History of blood transfusion Hyperlipidemia Hypertension Mixed Alzheimer's and vascular dementia ([facility]/HCC) 01/21/2025 Type 2 diabetes mellitus (HCC) Type II or unspecified type diabetes mellitus without mention of complication, not stated as uncontrolled (HCC) [2] Past Surgical History: Procedure Laterality Date BREAST LUMPECTOMY Left BREAST LUMPECTOMY Left 2012 s/p radiation as well CATARACT EXTRACTION W/ INTRAOCULAR LENS IMPLANT Bilateral 10/2015, 12/2015 SECTION (HISTORICAL) SECTION, LOW TRANSVERSE [id number] CHOLECYSTECTOMY DILATION AND CURETTAGE OF UTERUS FEMUR FRACTURE SURGERY Right 11/30/2019 HIP ARTHROPLASTY Right 01/21/2020 conversion JOINT REPLACEMENT Bilateral ROTATOR CUFF REPAIR Right TOTAL ABDOMINAL HYSTERECTOMY [3] Family History Problem Relation Name Age of Onset Asthma Son Thyroid disease Brother Cancer Mother Cancer Father Thyroid disease Mother Cancer Brother Asthma Son Asthma Son Diabetes Son Charbel Agee [4] Current Facility-Administered Medications: acetaminophen (Tylenol) tablet 650 mg, 650 mg, Oral, q6h PRN OR acetaminophen (Tylenol) suppository 650 mg, 650 mg, Rectal, q6h PRN, Jayy White MD ascorbic acid (Vitamin C) tablet 1,000 mg, 1,000 mg, Oral, Daily, Jayy White MD, 1,000 mg at 06/06/25 0920 calcium carbonate (Tums) chewable tablet 500 mg, 500 mg, Oral, Daily, Jayy White MD, 500 mg at 06/06/25 1522 cefTRIAXone (Rocephin) 1,000 mg in sodium chloride 0.9 % 50 mL IVPB Mini-Bag Plus, 1,000 mg, IntraVENous, q24h, Yayo Jennings DO, Last Rate: 100 mL/hr at 06/06/25 1523, 1,000 mg at 06/06/25 1523 cholecalciferol (Vitamin D-3) tablet 5,000 Units, 5,000 Units, Oral, Daily, Jayy White MD, 5,000 Units at 06/06/25 1522 cyanocobalamin (Vitamin B-12) tablet 2,500 mcg, 2,500 mcg, Oral, Daily, Jayy White MD, 2,500 mcg at 06/06/25 0920 dextrose 5 % infusion, 100 mL/hr, IntraVENous, PRN, Jayy White MD dextrose 50 % solution 12.5 g, 12.5 g, IntraVENous, PRN, Jayy White MD donepezil (Aricept) tablet 10 mg, 10 mg, Oral, Daily, Jayy White MD, 10 mg at 06/06/25 0921 fenofibrate (Tricor) tablet 54 mg, 54 mg, Oral, Daily, Jayy White MD, 54 mg at 06/06/25 0923 glucagon (human recombinant) injection 1 mg, 1 mg, IntraMUSCular, PRN, Jayy White MD glucose oral gel 15 g, 15 g, Oral, PRN, Jyay White MD insulin glargine (Lantus) injection 20 Units, 20 Units, SubCUTAneous, q AM, Yayo Jennings DO, 20 Units at 06/06/25 1520 Insulin Lispro (Humalog) injection 0-12 Units, 0-12 Units, SubCUTAneous, TID WC, 2 Units at 06/05/25 1738 AND Insulin Lispro (Humalog) injection 0-12 Units, 0-12 Units, SubCUTAneous, Nightly, Jayy White MD, 2 Units at 06/05/25 2133 Insulin Lispro (Humalog) injection 8 Units, 8 Units, SubCUTAneous, BID AC, Yayo Jennings DO labetalol (Normodyne,Trandate) injection 10 mg, 10 mg, IntraVENous, q4h PRN, Jayy White MD losartan (Cozaar) tablet 25 mg, 25 mg, Oral, Daily, Jayy White MD, 25 mg at 06/06/25919 magnesium oxide (Mag-Ox) tablet 400 mg, 400 mg, Oral, BID, Jayy White MD, 400 mg at 06/06/2521 melatonin tablet 5 mg, 5 mg, Oral, Nightly, Jayy White MD, 5 mg at 06/05/252125 nystatin (Mycostatin) ointment, , Topical, BID, Shalini Prado MD, Given at 06/06/25 0531 ondansetron ODT (Zofran-ODT) disintegrating tablet 4 mg, 4 mg, Oral, q8h PRN OR ondansetron (Zofran) injection 4 mg, 4 mg, IntraVENous, q6h PRN, Jayy White MD perflutren protein A microsphere (Optison) 3 mL in sodium chloride (PF) 0.9 % 10 mL IV, 0-10 mL, IntraVENous, Once PRN, Jayy White MD polyethylene glycol (PEG) 3350 (Miralax) packet 17 g, 17 g, Oral, Daily PRN, Jayy White MD pravastatin (Pravachol) tablet 80 mg, 80 mg, Oral, Daily, Jayy White MD, 80 mg at 06/06/25 0921 rivaroxaban (Xarelto) tablet 20 mg, 20 mg, Oral, Daily with breakfast, Jayy White MD, 20 mg at 06/06/25 0921 traZODone (Desyrel) tablet 50 mg, 50 mg, Oral, Nightly PRN, Jayy White MD venlafaxine XR (Effexor XR) 24 hr capsule 150 mg, 150 mg, Oral, Daily with breakfast, Jayy White MD, 150 mg at 06/06/25 0920 [5] Associated Order(s): IP CONSULT TO GERIATRICS Images from the original note were not included. [facility] Inpatient Consult Service Admission Date: 06/05/2025 Admission Status: INPATIENT Reason for Appointment Chief Complaint Patient presents with Fall Geriatrics consulted for Syncope, concern for fall, please evalate Assessment Principal Problem: Fall, initial encounter Plan During this encounter, I spent 55 minutes -Reviewing previous notes, -Reviewing labs, -Reviewing previous cognitive tests, -Documenting clinical information in the patients electronic record, -Coordination of care for the patient, and -Performing a medically appropriate exam and/or evaluation. Fall -Multiple risk factors including weakness, chronic pain, cognitive deficits, diabetes, and acute illness -Continue PT/OT as able while inpatient -Vitamin D pending -Check orthostatic vital signs as able -Medications with associated fall risk include:losartan Mixed Alzheimer's and vascular dementia -Continue supportive care. -Continue donepezil. Monitor for bradycardia. -Continue follow up with the [facility]. At risk for delirium -Nursing Delirium Screen (Nu-Desc): Nursing Delirium Symptom Checklist Total Score: 0 Predisposing factors for this patient include:advanced age, dementia Precipitating factors for this patient include:infection -Delirium protocol. On empiric antibiotics. - Continue evidence-based nonpharmacologic interventions for prevention and treatment of delirium: - redirect/reorient/reassure frequently - avoid restraints and instead utilize sitter as needed for safety - early mobilization as medically appropriate, OOB for meals as able - have patient use glasses and hearing aides - use familiar objects (family photos and items from home) - sleep hygiene, limit nighttime care to promote sleep/wake cycle - hydrate and encourage PO intake when medically appropriate - minimize/camouflage lines and tethers as able - minimize narcotics as long as pain is adequately controlled - avoid benzos and anticholinergic medications -Avoid antipsychotics unless patient is a danger to themselves or others. -Encourage PO intake, time up in chair, family visits, supervised ambulation, and sleep hygiene -If agitated, assess for and consider treating for pain -QTc= 473 -Continue scheduled melatonin at HS -Monitor for constipation/urinary retention - last BM unknown Subjective: HPI 79 y.o. year-old female presented from home for fall on 06/05/2025 . History and physical she was found down by her neighbor after her son had not heard from her. She was sitting in a chair reportedly and fell off but did not have much recollection of what happened or how long she was down. On admission she had a leukocytosis with a white blood cell count of 18.2. Lactic acid was elevated to 2.7. Creatinine was elevated to 1.24. Lactic acid trended down into the normal range. Urinalysis positive for nitrites and leuk esterase. Pyuria on urinalysis. Blood cultures pending. Empiric cefepime started. CT head showed no definite evidence of acute infarction, mass lesion, or hemorrhage. CT head did show atrophy and remote appearing small vessel white matter/right basal ganglia chronic ischemic/neurodegenerative changes. CT abdomen and pelvis showed old right rib fractures with prior surgery with plating, remote appearing left rib fractures, osteopenia of the spine with mild superior endplate depression of L5, uncertain age. X-ray pelvis showed right RIC with old healed proximal femur fracture. Seen by the geriatric consult service in September of this year and November of last year. Cardiology consulted. Collateral history obtained from NA. She is here because she fell down her basement stairs. She cannot member what she was attempting to do when she fell. States that a neighbor found her. She denies any pain or any acute complaints at this time time. States that her son comes by after work to check on her. Geriatric Risk Tool The following questions were answered by:: Patient Do you (or your loved one) have problems with your memory that affect your (their) day to day activities or that you or your family notice most days?: Yes Do you (or loved one) live alone AND/OR Do you (they) need more help at home then you (they) have now or currently available?: Yes Have you (or loved one) been in the hospital in the last 3 months?: No Do you (or loved one) have trouble with your walking or balance? Or Have you (they) fallen recently?: Yes Do you (or loved one) take more than 5 medications or vitamins every day?: Yes When compared to others your (their) own age, are you (or loved one) in worse health?: No Total Score: 5 Quick Cognitive Screen (QCS): Positive QCS Intervention Patient Safety: Curtain Open / Maintain privacy bureau chief completed: Pt deemed to not be an elopement risk Nursing Delirium Screen (Nu-Desc): Nursing Delirium Symptom Checklist Total Score: 0 Known to the [facility]? Yes, Explain: Last seen in [facility] 12/31/24. MOCA 13 MIS 5 Allergies[1] Medications reviewed in hospital records. Medical History[2] Surgical History[3] Social History Tobacco Use Smoking status: Every Day Current packs/day: 1.00 Average packs/day: 1 pack/day for 125.8 years (125.8 ttl pk-yrs) Types: Cigarettes Start date: 08/27/1959 Smokeless tobacco: Never Substance Use Topics Alcohol use: Not Currently Alcohol/week: 0.0 standard drinks of alcohol Present at visit: patient Marital status: Children: 3 sons Living arrangement: lives alone Household safety problems: falls Driving safety concerns: no longer drives Elder abuse: Community resources: . Per last visit with the [facility] she did have a [employer], cleaning service once a month. Healthcare Power of Director Investor Relations: Yes Living Will: Yes Code Status: DNR-CCA Family History Family History[4] Family Status Relation Name Status Son Marbin Agee Alive Brother Mother Wanda Younger Father Ko Younger Brother Son Charbel Agee Alive Son Alive Sister No partnership data on file Review of Systems HENT: Negative for hearing loss. Eyes: Negative for blurred vision and double vision. Gastrointestinal: Positive for constipation. Negative for diarrhea. Genitourinary: Negative for dysuria, frequency and urgency. Functional Status Prior to Admission (I: Independent, A: Assisted, D: Dependent) ADLs I A D Notes Bathing [x] [] [] Dressing [x] [] [] Toileting [x] [] [] Transfers [x] [] [] Feeding [x] [] [] Ambulation [] [x] [] Assistive devices: walker IADLs I A D Telephone [] [x] [] Transportation [] [] [x] Shopping [] [] [x] Meal prep [] [x] [] Housework [] [x] [] Medications [] [x] [] Finances [] [] [x] Objective: BP 146/64 (BP Location: Left arm, Patient Position: Lying) Pulse 74 Temp 36.2 C (97.2 F) (Temporal) Resp 18 Ht 5' 6" (1.676 m) Wt 176 lb 12.9 oz (80.2 kg) SpO2 97% BMI 28.54 kg/m Physical Exam Constitutional: General: She is not in acute distress. Eyes: Extraocular Movements: Extraocular movements intact. Pupils: Pupils are equal, round, and reactive to light. Cardiovascular: Rate and Rhythm: Normal rate. Rhythm irregular. Pulmonary: Effort: Pulmonary effort is normal. No respiratory distress. Abdominal: General: Bowel sounds are normal. Palpations: Abdomen is soft. Musculoskeletal: Right lower leg: Edema present. Left lower leg: Edema present. Skin: General: Skin is warm and dry. Neurological: Mental Status: She is alert and oriented to person, place, and time. Psychiatric: Attention and Perception: Attention normal. Mood and Affect: Mood normal. Speech: Speech normal. Behavior: Behavior is cooperative. Cognition and Memory: Memory is impaired. 3 item recall/short term memory: Not assessed Clock Drawing Test: not assessed Labs and Imaging: Lab Results Component Value Date WBC 18.2 (H) 06/05/2025 HGB 15.4 06/05/2025 HCT 45.6 06/05/2025 MCV 86.9 06/05/2025 PLT 314 06/05/2025 Lab Results Component Value Date NA 134 (L) 06/05/2025 K 5.1 06/05/2025 CL 99 06/05/2025 CO2 26 06/05/2025 BUN 23 06/05/2025 CREATININE 1.24 (H) 06/05/2025 GLUCOSE 332 (H) 06/05/2025 CALCIUM 10.8 (H) 06/05/2025 PROT 6.7 01/14/2025 BILITOT 0.3 01/14/2025 ALKPHOS 63 01/14/2025 AST 18 01/14/2025 ALT 14 01/14/2025 Lab Results Component Value Date VITD25 29 10/21/2024 TSH 2.07 10/21/2024 UA: Lab Results Component Value Date COLORU Yellow 06/05/2025 GLUCOSEU 100 (A) 06/05/2025 UROBILINOGEN Normal 06/05/2025 No results found for the last 90 days. Pain Management Panel 06/05/2025 Pain Management Panel AMPHETAMINE SCREEN Negative COCAINE METAB. SCREEN Negative METHADONE SCREEN Negative === 06/05/25 === CT CHEST ABDOMEN PELVIS W CONTRAST - Impression - 1. Osteopenia with degenerative changes seen throughout the spine with mild superior endplate depression L5 of uncertain age with facet hypertrophy and mild L4-L5 spinal listhesis. Moderate generalized calcific atherosclerosis 2. Old right rib fractures with prior surgery with plating, remote appearing left rib fractures, degenerative joint disease both shoulders. 3. No definite evidence of hemorrhage Report Dictated on Electronically Signed By: Cristian Morgan MD Electronically Signed Date/Time: 06/05/2025 9:31 AM EDT No results found for this or any previous visit from the past 365 days. === 06/05/25 === XR PELVIS 1-2 VIEWS === 01/14/25 === MR BRAIN WO CONTRAST - Impression - 1. No acute intracranial findings. 2. Mild degree of chronic small vessel ischemic change. Report Dictated on Electronically Signed By: Nicholas Nelson MD Electronically Signed Date/Time: 01/14/2025 9:51 PM EDT Comment: Please note that portions of this report were produced using speech recognition software and may contain errors related to that system including errors in grammar, punctuation, and spelling, as well as words and phrases that may be inappropriate. If there are any questions or concerns please feel free to contact the dictating provider for clarification. 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 right temporal /occiptial/ and hypocapal Depression History of blood transfusion Hyperlipidemia Hypertension Mixed Alzheimer's and vascular dementia ([facility]/HCC) 01/21/2025 Type 2 diabetes mellitus (HCC) Type II or unspecified type diabetes mellitus without mention of complication, not stated as uncontrolled ([facility]) [3] Past Surgical History: Procedure Laterality Date BREAST LUMPECTOMY Left BREAST LUMPECTOMY Left 2012 s/p radiation as well CATARACT EXTRACTION W/ INTRAOCULAR LENS IMPLANT Bilateral 10/2015, 12/2015 SECTION (HISTORICAL) SECTION, LOW TRANSVERSE [id number] CHOLECYSTECTOMY DILATION AND CURETTAGE OF UTERUS FEMUR FRACTURE SURGERY Right 11/30/2019 HIP ARTHROPLASTY Right 01/21/2020 conversion JOINT REPLACEMENT Bilateral ROTATOR CUFF REPAIR Right TOTAL ABDOMINAL HYSTERECTOMY [4] Family History Problem Relation Name Age of Onset Asthma Son Thyroid disease Brother Cancer Mother Cancer Father Thyroid disease Mother Cancer Brother Asthma Son Asthma Son Diabetes Son Charbel Félix Associated Order(s): IP CONSULT TO CARDIOLOGY [facility] [place] Card[place] /Electrophysiology Consult Note Reason for Consult/Chief Complaint: Syncope Referring provider: Dr. White Established assisted living nursing director: None (Dr. Hayes, but has not seen since 2019) History of Present Illness: Beverly Agee is a 79 y.o. female with cardiac history paroxysmal atrial fibrillation on rivaroxaban. Her other medical history includes HTN, HLP, DM, dementia, and memory loss. She was brought to [facility] ED by EMS due to fall/found down. Her son called the neighbor to check on patient as he had not heard from her. On interview, she does not recall the events and last she remembers was sitting in her chair and then was on the basement floor. Confused. On admission, blood pressure 159/88. HR 93. EKG NSR with first-degree AV block (NC 207 ms). High-sensitivity troponin 5->6. Glucose 332. Admitted for further workup and management cardiology consulted. Assessment/Plan Syncope/fall, not suspect cardiac etiology -patient is unclear of the events surrounding the circumstances that brought her to the hospital. She has significant confusion regarding her medical history and suspect at least mild to moderate dementia likely contributed to fall. Agree with geriatrics consult. Cardiovascular exam is benign. EKG has a narrow QRS and borderline prolonged NC. Telemetry unremarkable. Low suspicion for bradycardia arrhythmia as cause. She does not have any anginal symptoms. Her cardiac biomarkers are normal. No evidence of ADHF or severe valve disease that would cause fall/syncope. -Echocardiogram ordered by primary team and we will follow-up on these results Hypertension, uncontrolled -blood pressure 177/71 -Resume home losartan 25 mg daily when creatinine at baseline -Further management per primary team; goal blood pressure > 140/90 Paroxysmal Atrial Fibrillation, currently in NSR - Continue with rivaroxaban 20 mg daily for stroke prevention Hyperlipidemia, controlled - Continue with pravastatin 80 mg daily and ezetimibe 10 mg daily Echocardiogram ordered by primary team and we will follow-up on these results. Otherwise we will sign off at this time. These page with any further questions or concerns. Her atrial fibrillation is managed by her PCP and she can follow-up with our office on an as needed basis. Medications: Scheduled Meds[1] Infusion Medications: Continuous Meds[2] Physical Examination: Vitals: 06/05/25 1146 06/05/25 1336 06/05/25 1421 06/05/25 1440 BP: (!) 168/81 (!) 149/81 (!) 172/71 BP Location: Right arm Patient Position: Lying Pulse: 99 76 76 Resp: 18 16 18 Temp: 36.2 C (97.1 F) TempSrc: Temporal SpO2: 99% 96% 97% Weight: 176 lb 12.9 oz (80.2 kg) Height: 5' 6" (1.676 m) No intake or output data in the 24 hours ending 06/05/25 1547 Wt Readings from Last 3 Encounters: 06/05/25 176 lb 12.9 oz (80.2 kg) 05/26/25 183 lb (83 kg) 02/20/25 161 lb (73 kg) Physical Exam Constitutional: General: She is not in acute distress. Appearance: Normal appearance. She is normal weight. HENT: Head: Normocephalic and atraumatic. Neck: Vascular: No JVD. Cardiovascular: Rate and Rhythm: Normal rate and regular rhythm. Pulses: Normal pulses. Heart sounds: No murmur heard. Pulmonary: Effort: Pulmonary effort is normal. No respiratory distress. Breath sounds: No wheezing. Musculoskeletal: General: Normal range of motion. Right lower leg: No edema. Left lower leg: No edema. Neurological: Mental Status: She is alert and oriented to person, place, and time. Psychiatric: Mood and Affect: Mood normal. Laboratory Tests: TROPONIN I, CONVENTIONAL SENSITIVITY CK Date Value Ref Range Status 06/05/2025 141 30 - 185 U/L Final 11/30/2019 281 (H) 30 - 170 U/L Final 11/29/2019 283 (H) 30 - 170 U/L Final TROPONIN I Date Value Ref Range Status 01/11/2024 <0.012 <0.034 ng/mL Final 01/10/2024 <0.012 <0.034 ng/mL Final 12/13/2023 <0.012 <0.034 ng/mL Final 12/13/2023 <0.012 <0.034 ng/mL Final 12/12/2023 <0.012 <0.034 ng/mL Final TROPONIN I, HIGH SENSITIVITY Troponin HS Serial Baseline Date Value Ref Range Status 06/05/2025 5 <=14 ng/L Final Comment: In individuals presenting with symptoms > 2h, a baseline troponin <= 5 ng/L suggests acute cardiac injury is unlikely and further serial testing is generally not indicated. 10/18/2024 4 <=14 ng/L Final Comment: In individuals presenting with symptoms > 2h, a baseline troponin <= 5 ng/L suggests acute cardiac injury is unlikely and further serial testing is generally not indicated. 2h Troponin HS (Serial 2nd Troponin) Date Value Ref Range Status 06/05/2025 6 <=14 ng/L Final Comment: Rising or falling troponin delta below 2 ng/L as compared to baseline value suggests that acute cardiac injury is unlikely. 10/18/2024 6 <=14 ng/L Final Comment: Rising or falling troponin delta below 2 ng/L as compared to baseline value suggests that acute cardiac injury is unlikely. No results found for: TROPDELTBASE 4h Troponin HS (Serial 3rd Troponin) Date Value Ref Range Status 10/18/2024 8 <=14 ng/L Final Comment: Rising or falling troponin delta below 2 ng/L as compared to 2h troponin value suggests that acute cardiac injury is unlikely. No results found for: TROPDELTSEC Recent Labs 06/05/25 0901 NA 134* K 5.1 CL 99 CO2 26 BUN 23 CREATININE 1.24* EGFR 44.9* Recent Labs 06/05/25 0901 WBC 18.2* HGB 15.4 HCT 45.6 MCV 86.9 PLT 314 Lab Results Component Value Date HGBA1C 9.5 (A) 05/26/2025 Lab Results Component Value Date TSH 2.07 10/21/2024 Lab Results Component Value Date CHOL 212 (H) 01/14/2025 CHOL 187 07/01/2022 CHOL 207 (A) 06/09/2020 Lab Results Component Value Date HDL 40 (L) 01/14/2025 HDL 33 (L) 07/01/2022 HDL 38 (L) 06/09/2020 Lab Results Component Value Date LDLCALC 98 01/14/2025 LDLCALC 07/01/2022 Comment: Calculated LDL invalid, triglycerides >400 mg/dl Lab Results Component Value Date TRIG 371 (H) 01/14/2025 TRIG 449 (H) 07/01/2022 TRIG 204 (A) 06/09/2020 No results found for: "CHOLHDL" No results found for: LDLCHOLESTER No results for input(s): "BNP" in the last 72 hours. Recent Labs 06/05/25 0901 INR 1.1 No results found for: "IRON", "TIBC", "FERRITIN" Radiology: REVIEWED Cardiac Tests Personally Reviewed: Last EKG 06/05/25 ECG 12-LEAD (Preliminary) This result has not been signed. Information might be incomplete. Impression Sinus rhythm Atrial premature complex Borderline prolonged NC interval Inferior infarct, old Telemetry findings: NSR, 70s Reports reviewed: Last Echo 08/29/16 (Final) Narrative Ordered by an unspecified provider. Last Cath No results found for this or any previous visit. Last Stress Test No results found for this or any previous visit. Last EP study No results found for this or any previous visit. No results found for: "EFBP", "PLVEF", "LVEFPHYS", "LVEF2D", EF Susan Travis MD DATE of SERVICE: 06/05/2025 [1] ascorbic acid, 1,000 mg, Oral, Daily calcium carbonate, 500 mg, Oral, Daily cefepime, 2,000 mg, IntraVENous, q12h cholecalciferol, 5,000 Units, Oral, Daily cyanocobalamin, 2,500 mcg, Oral, Daily donepezil, 10 mg, Oral, Daily enoxaparin, 40 mg, SubCUTAneous, Daily influenza, 0.5 mL, IntraMUSCular, Once [START ON 06/06/2025] insulin glargine, 24 Units, SubCUTAneous, q AM insulin lispro, 0-12 Units, SubCUTAneous, TID WC And insulin lispro, 0-12 Units, SubCUTAneous, Nightly insulin lispro, 12 Units, SubCUTAneous, BID AC magnesium oxide, 400 mg, Oral, BID melatonin, 5 mg, Oral, Nightly pravastatin, 80 mg, Oral, Daily [START ON 06/06/2025] rivaroxaban, 20 mg, Oral, Daily with breakfast [START ON 06/06/2025] venlafaxine XR, 150 mg, Oral, Daily with breakfast [2] documented in this encounter [facility] 06-06-2025 Nurse Note RN contacted Dr. Jennings concerning patients scheduled insulin dose this morning and the resulting blood glucose drop to 59. Patient is ordered lantus, which was delayed giving due to order needing adjusted by pharmacy. RN asking about lantus dose. [facility] 06-05-2025 Consult note Associated Order (s): IP CONSULT TO GERIATRICS Images from the original note were not included. [facility] Inpatient Consult Service Admission Date: 06/05/2025 Admission Status: INPATIENT Reason for Appointment Chief Complaint Patient presents with Fall Geriatrics consulted for Syncope, concern for fall, please evalate Assessment Principal Problem: Fall, initial encounter Plan During this encounter, I spent 55 minutes -Reviewing previous notes, -Reviewing labs, -Reviewing previous cognitive tests, -Documenting clinical information in the patients electronic record, -Coordination of care for the patient, and -Performing a medically appropriate exam and/or evaluation. Fall -Multiple risk factors including weakness, chronic pain, cognitive deficits, diabetes, and acute illness -Continue PT/OT as able while inpatient -Vitamin D pending -Check orthostatic vital signs as able -Medications with associated fall risk include:losartan Mixed Alzheimer's and vascular dementia -Continue supportive care. -Continue donepezil. Monitor for bradycardia. -Continue follow up with the [facility]. At risk for delirium -Nursing Delirium Screen (Nu-Desc): Nursing Delirium Symptom Checklist Total Score: 0 Predisposing factors for this patient include:advanced age, dementia Precipitating factors for this patient include:infection -Delirium protocol. On empiric antibiotics. - Continue evidence-based nonpharmacologic interventions for prevention and treatment of delirium: - redirect/reorient/reassure frequently - avoid restraints and instead utilize sitter as needed for safety - early mobilization as medically appropriate, OOB for meals as able - have patient use glasses and hearing aides - use familiar objects (family photos and items from home) - sleep hygiene, limit nighttime care to promote sleep/wake cycle - hydrate and encourage PO intake when medically appropriate - minimize/camouflage lines and tethers as able - minimize narcotics as long as pain is adequately controlled - avoid benzos and anticholinergic medications -Avoid antipsychotics unless patient is a danger to themselves or others. -Encourage PO intake, time up in chair, family visits, supervised ambulation, and sleep hygiene -If agitated, assess for and consider treating for pain -QTc= 473 -Continue scheduled melatonin at HS -Monitor for constipation/urinary retention - last BM unknown Subjective: HPI 79 y.o. year-old female presented from home for fall on 06/05/2025 . History and physical she was found down by her neighbor after her son had not heard from her. She was sitting in a chair reportedly and fell off but did not have much recollection of what happened or how long she was down. On admission she had a leukocytosis with a white blood cell count of 18.2. Lactic acid was elevated to 2.7. Creatinine was elevated to 1.24. Lactic acid trended down into the normal range. Urinalysis positive for nitrites and leuk esterase. Pyuria on urinalysis. Blood cultures pending. Empiric cefepime started. CT head showed no definite evidence of acute infarction, mass lesion, or hemorrhage. CT head did show atrophy and remote appearing small vessel white matter/right basal ganglia chronic ischemic/neurodegenerative changes. CT abdomen and pelvis showed old right rib fractures with prior surgery with plating, remote appearing left rib fractures, osteopenia of the spine with mild superior endplate depression of L5, uncertain age. X-ray pelvis showed right RIC with old healed proximal femur fracture. Seen by the geriatric consult service in September of this year and November of last year. Cardiology consulted. Collateral history obtained from NA. She is here because she fell down her basement stairs. She cannot member what she was attempting to do when she fell. States that a neighbor found her. She denies any pain or any acute complaints at this time time. States that her son comes by after work to check on her. Geriatric Risk Tool The following questions were answered by:: Patient Do you (or your loved one) have problems with your memory that affect your (their) day to day activities or that you or your family notice most days?: Yes Do you (or loved one) live alone AND/OR Do you (they) need more help at home then you (they) have now or currently available?: Yes Have you (or loved one) been in the hospital in the last 3 months?: No Do you (or loved one) have trouble with your walking or balance? Or Have you (they) fallen recently?: Yes Do you (or loved one) take more than 5 medications or vitamins every day?: Yes When compared to others your (their) own age, are you (or loved one) in worse health?: No Total Score: 5 Quick Cognitive Screen (QCS): Positive QCS Intervention Patient Safety: Curtain Open / Maintain privacy bureau chief completed: Pt deemed to not be an elopement risk Nursing Delirium Screen (Nu-Desc): Nursing Delirium Symptom Checklist Total Score: 0 Known to the [facility]? Yes, Explain: Last seen in [facility] 12/31/24. MOCA 13 MIS 5 Allergies[1] Medications reviewed in hospital records. Medical History[2] Surgical History[3] Social History Tobacco Use Smoking status: Every Day Current packs/day: 1.00 Average packs/day: 1 pack/day for 125.8 years (125.8 ttl pk-yrs) Types: Cigarettes Start date: 08/27/1957 Smokeless tobacco: Never Substance Use Topics Alcohol use: Not Currently Alcohol/week: 0.0 standard drinks of alcohol Present at visit: patient Marital status: Children: 3 sons Living arrangement: lives alone Household safety problems: falls Driving safety concerns: no longer drives Elder abuse: Community resources: . Per last visit with the [facility] she did have a [employer], cleaning service once a month. Healthcare Power of Director Investor Relations: Yes Living Will: Yes Code Status: DNR-CCA Family History Family History[4] Family Status Relation Name Status Son Mabrin Agee Alive Brother Mother Wanda Younger Father Ko Younger Brother Son Charbel Agee Alive Son Alive Sister No partnership data on file Review of Systems HENT: Negative for hearing loss. Eyes: Negative for blurred vision and double vision. Gastrointestinal: Positive for constipation. Negative for diarrhea. Genitourinary: Negative for dysuria, frequency and urgency. Functional Status Prior to Admission (I: Independent, A: Assisted, D: Dependent) ADLs I A D Notes Bathing [x] [] [] Dressing [x] [] [] Toileting [x] [] [] Transfers [x] [] [] Feeding [x] [] [] Ambulation [] [x] [] Assistive devices: walker IADLs I A D Telephone [] [x] [] Transportation [] [] [x] Shopping [] [] [x] Meal prep [] [x] [] Housework [] [x] [] Medications [] [x] [] Finances [] [] [x] Objective: BP 146/64 (BP Location: Left arm, Patient Position: Lying) Pulse 74 Temp 36.2 C (97.2 F) (Temporal) Resp 18 Ht 5' 6" (1.676 m) Wt 176 lb 12.9 oz (80.2 kg) SpO2 97% BMI 28.54 kg/m Physical Exam Constitutional: General: She is not in acute distress. Eyes: Extraocular Movements: Extraocular movements intact. Pupils: Pupils are equal, round, and reactive to light. Cardiovascular: Rate and Rhythm: Normal rate. Rhythm irregular. Pulmonary: Effort: Pulmonary effort is normal. No respiratory distress. Abdominal: General: Bowel sounds are normal. Palpations: Abdomen is soft. Musculoskeletal: Right lower leg: Edema present. Left lower leg: Edema present. Skin: General: Skin is warm and dry. Neurological: Mental Status: She is alert and oriented to person, place, and time. Psychiatric: Attention and Perception: Attention normal. Mood and Affect: Mood normal. Speech: Speech normal. Behavior: Behavior is cooperative. Cognition and Memory: Memory is impaired. 3 item recall/short term memory: Not assessed Clock Drawing Test: not assessed Labs and Imaging: Lab Results Component Value Date WBC 18.2 (H) 06/05/2025 HGB 15.4 06/05/2025 HCT 45.6 06/05/2025 MCV 86.9 06/05/2025 PLT 314 06/05/2025 Lab Results Component Value Date NA 134 (L) 06/05/2025 K 5.1 06/05/2025 CL 99 06/05/2025 CO2 26 06/05/2025 BUN 23 06/05/2025 CREATININE 1.24 (H) 06/05/2025 GLUCOSE 332 (H) 06/05/2025 CALCIUM 10.8 (H) 06/05/2025 PROT 6.7 01/14/2025 BILITOT 0.3 01/14/2025 ALKPHOS 63 01/14/2025 AST 18 01/14/2025 ALT 14 01/14/2025 Lab Results Component Value Date VITD25 29 10/21/2024 TSH 2.07 10/21/2024 UA: Lab Results Component Value Date COLORU Yellow 06/05/2025 GLUCOSEU 100 (A) 06/05/2025 UROBILINOGEN Normal 06/05/2025 No results found for the last 90 days. Pain Management Panel 06/05/2025 Pain Management Panel AMPHETAMINE SCREEN Negative COCAINE METAB. SCREEN Negative METHADONE SCREEN Negative === 06/05/25 === CT CHEST ABDOMEN PELVIS W CONTRAST - Impression - 1. Osteopenia with degenerative changes seen throughout the spine with mild superior endplate depression L5 of uncertain age with facet hypertrophy and mild L4-L5 spinal listhesis. Moderate generalized calcific atherosclerosis 2. Old right rib fractures with prior surgery with plating, remote appearing left rib fractures, degenerative joint disease both shoulders. 3. No definite evidence of hemorrhage Report Dictated on Electronically Signed By: Cristian Morgan MD Electronically Signed Date/Time: 06/05/2025 9:31 AM EDT No results found for this or any previous visit from the past 365 days. === 06/05/25 === XR PELVIS 1-2 VIEWS === 01/14/25 === MR BRAIN WO CONTRAST - Impression - 1. No acute intracranial findings. 2. Mild degree of chronic small vessel ischemic change. Report Dictated on Electronically Signed By: Nicholas Nelson MD Electronically Signed Date/Time: 01/14/2025 9:51 PM EDT Comment: Please note that portions of this report were produced using speech recognition software and may contain errors related to that system including errors in grammar, punctuation, and spelling, as well as words and phrases that may be inappropriate. If there are any questions or concerns please feel free to contact the dictating provider for clarification. 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 Type 2 diabetes mellitus (HCC) Type II or unspecified type diabetes mellitus without mention of complication, not stated as uncontrolled (HCC) [3] Past Surgical History: Procedure Laterality Date BREAST LUMPECTOMY Left BREAST LUMPECTOMY Left 2012 s/p radiation as well CATARACT EXTRACTION W/ INTRAOCULAR LENS IMPLANT Bilateral 10/2015, 12/2015 SECTION (HISTORICAL) SECTION, LOW TRANSVERSE [id number] CHOLECYSTECTOMY DILATION AND CURETTAGE OF UTERUS FEMUR FRACTURE SURGERY Right 11/30/2019 HIP ARTHROPLASTY Right 01/21/2020 conversion JOINT REPLACEMENT Bilateral ROTATOR CUFF REPAIR Right TOTAL ABDOMINAL HYSTERECTOMY [4] Family History Problem Relation Name Age of Onset Asthma Son Thyroid disease Brother Cancer Mother Cancer Father Thyroid disease Mother Cancer Brother Asthma Son Asthma Son Diabetes Son Charbel Agee [facility] 06-05-2025 Consult note Associated Order (s): IP CONSULT TO CARDIOLOGY [facility] [place] /Electrophysiology Consult Note Reason for Consult/Chief Complaint: Syncope Referring provider: Dr. White Established assisted living nursing director: None (Dr. Hayes, but has not seen since 2019) History of Present Illness: Beverly Agee is a 79 y.o. female with cardiac history paroxysmal atrial fibrillation on rivaroxaban. Her other medical history includes HTN, HLP, DM, dementia, and memory loss. She was brought to [facility] ED by EMS due to fall/found down. Her son called the neighbor to check on patient as he had not heard from her. On interview, she does not recall the events and last she remembers was sitting in her chair and then was on the basement floor. Confused. On admission, blood pressure 159/88. HR 93. EKG NSR with first-degree AV block (NC 207 ms). High-sensitivity troponin 5->6. Glucose 332. Admitted for further workup and management cardiology consulted. Assessment/Plan Syncope/fall, not suspect cardiac etiology -patient is unclear of the events surrounding the circumstances that brought her to the hospital. She has significant confusion regarding her medical history and suspect at least mild to moderate dementia likely contributed to fall. Agree with geriatrics consult. Cardiovascular exam is benign. EKG has a narrow QRS and borderline prolonged NC. Telemetry unremarkable. Low suspicion for bradycardia arrhythmia as cause. She does not have any anginal symptoms. Her cardiac biomarkers are normal. No evidence of ADHF or severe valve disease that would cause fall/syncope. -Echocardiogram ordered by primary team and we will follow-up on these results Hypertension, uncontrolled -blood pressure 177/71 -Resume home losartan 25 mg daily when creatinine at baseline -Further management per primary team; goal blood pressure > 140/90 Paroxysmal Atrial Fibrillation, currently in NSR - Continue with rivaroxaban 20 mg daily for stroke prevention Hyperlipidemia, controlled - Continue with pravastatin 80 mg daily and ezetimibe 10 mg daily Echocardiogram ordered by primary team and we will follow-up on these results. Otherwise we will sign off at this time. These page with any further questions or concerns. Her atrial fibrillation is managed by her PCP and she can follow-up with our office on an as needed basis. Medications: Scheduled Meds[1] Infusion Medications: Continuous Meds[2] Physical Examination: Vitals: 06/05/25 1146 06/05/25 1336 06/05/25 1421 06/05/25 1440 BP: (!) 168/81 (!) 149/81 (!) 172/71 BP Location: Right arm Patient Position: Lying Pulse: 99 76 76 Resp: 18 16 18 Temp: 36.2 C (97.1 F) TempSrc: Temporal SpO2: 99% 96% 97% Weight: 176 lb 12.9 oz (80.2 kg) Height: 5' 6" (1.676 m) No intake or output data in the 24 hours ending 06/05/25 1547 Wt Readings from Last 3 Encounters: 06/05/25 176 lb 12.9 oz (80.2 kg) 05/26/25 183 lb (83 kg) 02/20/25 161 lb (73 kg) Physical Exam Constitutional: General: She is not in acute distress. Appearance: Normal appearance. She is normal weight. HENT: Head: Normocephalic and atraumatic. Neck: Vascular: No JVD. Cardiovascular: Rate and Rhythm: Normal rate and regular rhythm. Pulses: Normal pulses. Heart sounds: No murmur heard. Pulmonary: Effort: Pulmonary effort is normal. No respiratory distress. Breath sounds: No wheezing. Musculoskeletal: General: Normal range of motion. Right lower leg: No edema. Left lower leg: No edema. Neurological: Mental Status: She is alert and oriented to person, place, and time. Psychiatric: Mood and Affect: Mood normal. Laboratory Tests: TROPONIN I, CONVENTIONAL SENSITIVITY CK Date Value Ref Range Status 06/05/2025 141 30 - 185 U/L Final 11/30/2019 281 (H) 30 - 170 U/L Final 11/29/2019 283 (H) 30 - 170 U/L Final TROPONIN I Date Value Ref Range Status 01/11/2024 <0.012 <0.034 ng/mL Final 01/10/2024 <0.012 <0.034 ng/mL Final 12/13/2023 <0.012 <0.034 ng/mL Final 12/13/2023 <0.012 <0.034 ng/mL Final 12/12/2023 <0.012 <0.034 ng/mL Final TROPONIN I, HIGH SENSITIVITY Troponin HS Serial Baseline Date Value Ref Range Status 06/05/2025 5 <=14 ng/L Final Comment: In individuals presenting with symptoms > 2h, a baseline troponin <= 5 ng/L suggests acute cardiac injury is unlikely and further serial testing is generally not indicated. 10/18/2024 4 <=14 ng/L Final Comment: In individuals presenting with symptoms > 2h, a baseline troponin <= 5 ng/L suggests acute cardiac injury is unlikely and further serial testing is generally not indicated. 2h Troponin HS (Serial 2nd Troponin) Date Value Ref Range Status 06/05/2025 6 <=14 ng/L Final Comment: Rising or falling troponin delta below 2 ng/L as compared to baseline value suggests that acute cardiac injury is unlikely. 10/18/2024 6 <=14 ng/L Final Comment: Rising or falling troponin delta below 2 ng/L as compared to baseline value suggests that acute cardiac injury is unlikely. No results found for: TROPDELTBASE 4h Troponin HS (Serial 3rd Troponin) Date Value Ref Range Status 10/18/2024 8 <=14 ng/L Final Comment: Rising or falling troponin delta below 2 ng/L as compared to 2h troponin value suggests that acute cardiac injury is unlikely. No results found for: TROPDELTSEC Recent Labs 06/05/25 09 NA 134* K 5.1 CL 99 CO2 26 BUN 23 CREATININE 1.24* EGFR 44.9* Recent Labs 06/05/25 0901 WBC 18.2* HGB 15.4 HCT 45.6 MCV 86.9 PLT 314 Lab Results Component Value Date HGBA1C 9.5 (A) 05/26/2025 Lab Results Component Value Date TSH 2.07 10/21/2024 Lab Results Component Value Date CHOL 212 (H) 01/14/2025 CHOL 187 07/01/2022 CHOL 207 (A) 06/09/2020 Lab Results Component Value Date HDL 40 (L) 01/14/2025 HDL 33 (L) 07/01/2022 HDL 38 (L) 06/09/2020 Lab Results Component Value Date LDLCALC 98 01/14/2025 LDLCALC 07/01/2022 Comment: Calculated LDL invalid, triglycerides >400 mg/dl Lab Results Component Value Date TRIG 371 (H) 01/14/2025 TRIG 449 (H) 07/01/2022 TRIG 204 (A) 06/09/2020 No results found for: "CHOLHDL" No results found for: LDLCHOLESTER No results for input(s): "BNP" in the last 72 hours. Recent Labs 06/05/25 09 INR 1.1 No results found for: "IRON", "TIBC", "FERRITIN" Radiology: REVIEWED Cardiac Tests Personally Reviewed: Last EKG 06/05/25 ECG 12-LEAD (Preliminary) This result has not been signed. Information might be incomplete. Impression Sinus rhythm Atrial premature complex Borderline prolonged NC interval Inferior infarct, old Telemetry findings: NSR, 70s Reports reviewed: Last Echo 08/29/16 (Final) Narrative Ordered by an unspecified provider. Last Cath No results found for this or any previous visit. Last Stress Test No results found for this or any previous visit. Last EP study No results found for this or any previous visit. No results found for: "EFBP", "PLVEF", "LVEFPHYS", "LVEF2D", EF Susan Travis MD DATE of SERVICE: 06/05/2025 [1] ascorbic acid, 1,000 mg, Oral, Daily calcium carbonate, 500 mg, Oral, Daily cefepime, 2,000 mg, IntraVENous, q12h cholecalciferol, 5,000 Units, Oral, Daily cyanocobalamin, 2,500 mcg, Oral, Daily donepezil, 10 mg, Oral, Daily enoxaparin, 40 mg, SubCUTAneous, Daily influenza, 0.5 mL, IntraMUSCular, Once [START ON 06/06/2025] insulin glargine, 24 Units, SubCUTAneous, q AM insulin lispro, 0-12 Units, SubCUTAneous, TID WC And insulin lispro, 0-12 Units, SubCUTAneous, Nightly insulin lispro, 12 Units, SubCUTAneous, BID AC magnesium oxide, 400 mg, Oral, BID melatonin, 5 mg, Oral, Nightly pravastatin, 80 mg, Oral, Daily [START ON 06/06/2025] rivaroxaban, 20 mg, Oral, Daily with breakfast [START ON 06/06/2025] venlafaxine XR, 150 mg, Oral, Daily with breakfast [2] [facility] [employer] Work Phone: 06-05-2025 Emergency department Note Pt was soiled in urine RN performed a complete bed change. [facility] 06-05-2025 Emergency department Note Pt was soiled in urine RN performed a complete bed change. Report given to Candelaria Ann RN. Emergency Department Encounter [facility] EMERGENCY DEPT Patient: Beverly Agee : 1945 Date of Evaluation: 06/05/2025 ED Supervising Physician: Ramiro Olivera MD I independently examined and evaluated Beverly Agee. THIS IS MY SUPERVISORY AND SHARED VISIT NOTE: I personally saw the patient and made/approved the management plan and take responsibility for the patient management. In brief, Beverly Agee is a 79 y.o. female that presents to the emergency department as a level 3 trauma activation. History provided by EMS, states that they were called because the patient's son had not been able to get a hold of the patient, so neighbor went to check on her and found her down. The patient states that she sustained a fall, but is unsure how long she was down for or why she fell. She denies any chest pain or shortness of breath. EMS states that her glucose was 314 and that she is on Xarelto for atrial fibrillation. They report that when they initially arrived, she seemed to be very altered, confused about which building she was in and having hallucinations, but once they helped her up, she seemed to "snap out of it" and become more oriented. She endorses vomiting and stomach upset. Focused exam: Pupils 4 mm equal, reactive to light bilaterally. Erythema and induration beneath the right breast. No reproducible TTP along the chest wall. Brief ED course/MDM: EMERGENCY DEPARTMENT COURSE and DIFFERENTIAL DIAGNOSIS/MDM: Vitals: Vitals: 06/05/25 0851 06/05/25 0904 06/05/25 0906 BP: (!) 159/88 (!) 140/78 Pulse: 93 90 Resp: 20 (!) 98 Temp: 36.6 C (97.8 F) TempSrc: Oral SpO2: 98% (!) 18% Weight: 81.6 kg (180 lb) Height: 1.676 m (5' 6") The patient presented with a chief complaint of a fall. Trauma team activated prior to arrival, as patient is on Xarelto and had altered mental status The differential diagnosis associated with this patient's presentation includes but is not limited to: Presentation concerning for traumatic injuries, including fractures or intracranial hemorrhage, rhabdomyolysis from being down. Rash to the inframammary fold most concerning for fungal infection. I reviewed external records from: PDMP demonstrating 2 prescriptions, to include [place] and tramadol The patient will be admitted The patient is in agreement with this plan. ED Medications managed: Medications iopamidol (Isovue-370) 76 % injection 75 mL (has no administration in time range) CRITICAL CARE TIME None All diagnostic, treatment, and disposition decisions were made by myself in conjunction with the Resident or MILKA. I also supervised virk portions of any procedures performed by the Resident. For all further details of the patient's emergency department visit, please see their documentation. (Comment: Please note this report has been produced using speech recognition software and may contain errors related to that system including errors in grammar, punctuation, and spelling, as well as words and phrases that may be inappropriate. If there are any questions or concerns please feel free to contact the dictating provider for clarification.) Ramiro Olivera MD [facility] Jen Olivera MD 06/05/25 1022 documented in this encounter [facility] 06-05-2025 Note Formatting of this n ote is different from the original. ADV[employer]ANNING Beverly Agee : 1945 Primary Care Physician: NENO IQBAL MD The patient and/or family/surrogate voluntarily agreed to participate in ACP services. Patient s cognitive capacity: Intact Code Status: [ ] [FULL CODE - Continue all advanced life support: CPR,intubation,invasive procedures] [X_] [DNR-CCA - DO NOT do CPR, intubation] [_] [DNR-ANIMAL LABORATORY TECHNICIAN - Comfort care only] [_] DNR form [was/was not] signed Summary of discussion: The patient health care POA/ surrogate is the following: Sohail Agee (POA)Charbel . [Condition that instigated the ACP on this DOS, relevant PMH, functional status, goals of care, and whom this was discussed with including names and relationship to the patient, and any relevant advance care documentation discussion] I answered all the patient/family questions that I could within the range and scope of the current medical situation. We discussed the medical conditions, risks, benefits, outcomes, and goals of care at this time for the patient's medical issues at hand in the face of the patient's chronic issues and current presentation. Total time spent: 2 minutes were spent discussing the patient's resuscitation status, advance care planning, and end of life care, with patient and/or family/surrogate. Jayy White MD [facility] 06/05/2025, 1:05 PM T [facility] 06-05-2025 Note Formatting of this n ote is different from the original. ADVANCED CARE PLANNING Beverly Agee : 1945 Primary Care Physician: NENO IQBAL MD The patient and/or family/surrogate voluntarily agreed to participate in ACP services. Patient s cognitive capacity: Intact Code Status: [ ] [FULL CODE - Continue all advanced life support: CPR,intubation,invasive procedures] [X_] [DNR-CCA - DO NOT do CPR, intubation] [_] [DNR-ANIMAL LABORATORY TECHNICIAN - Comfort care only] [_] DNR form [was/was not] signed Summary of discussion: The patient health care POA/ surrogate is the following: Sohail Agee (POA)Charbel . [Condition that instigated the ACP on this DOS, relevant PMH, functional status, goals of care, and whom this was discussed with including names and relationship to the patient, and any relevant advance care documentation discussion] I answered all the patient/family questions that I could within the range and scope of the current medical situation. We discussed the medical conditions, risks, benefits, outcomes, and goals of care at this time for the patient's medical issues at hand in the face of the patient's chronic issues and current presentation. Total time spent: 2 minutes were spent discussing the patient's resuscitation status, advance care planning, and end of life care, with patient and/or family/surrogate. Jayy White MD [facility] 06/05/2025, 1:05 PM T [facility] 06-05-2025 History and physical note Attending History and Physical Admit Date: 06/05/2025 PCP: NENO IBQAL MD Chief Complaint Patient presents with Fall Reason for Admission: Syncope, fall History Obtained From: patient, EMR HISTORY OF PRESENT ILLNESS: Beverly is a 79 y.o. female with past medical history below who presents with found down by his son/neighbors. She states she was sitting in chair fell off, found by his neighbors/son, she did not remember what happened, not sure how much time she was down. Son called EMS. She states she lives alone at home and her son manages her medication. She denies chest pain, shortness of breath, cough, wheezing, abdominal pain nausea, vomiting, bowel or bladder changes. She is complaining of some lower back pain on her left side. In the ED, vital signs are as follows: temp 97.8, HR 93, RR 20, BP 159/88, oxygen sat 98% on room air. Pertinent labs: Sodium 134, creatinine 1.24, was 1.19 four months ago, glucose elevated 332, magnesium 1.6, normal, first lactic acid 2.7, elevated, repeat lactic acid normal, CPK 141, normal, WBC 18.2, elevated, hemoglobin 15.4, normal, platelets 314, normal, UA shows UTI, follow-up blood cultures, urine culture. Will admit for further evaluation and management. EKG shows Sinus rhythm Atrial premature complex Borderline prolonged NC interval Inferior infarct, old 2 sets of troponin negative CT head shows 1. Atrophy and remote appearing small vessel white matter/right basal ganglia chronic ischemic/neurodegenerative changes. 2. No definite evidence of acute infarction, mass lesion, nor hemorrhage or fracture. CT cervical spine shows 1. No evidence of cervical spine fracture or dislocation, unchanged since last exam of 10/18/2024. 2. Degenerative changes CT chest abdomen and pelvis shows 1. Osteopenia with degenerative changes seen throughout the spine with mild superior endplate depression L5 of uncertain age with facet hypertrophy and mild L4-L5 spinal listhesis. Moderate generalized calcific atherosclerosis 2. Old right rib fractures with prior surgery with plating, remote appearing left rib fractures, degenerative joint disease both shoulders. 3. No definite evidence of hemorrhage X-ray pelvis shows Right RIC with old healed proximal femur fracture. Degenerative joint disease left hip, degenerative changes lower lumbar spine Patient was started on cefepime in ED Cardiology consulted for syncope Neurology consulted for syncope Geriatrics consulted for follow-up PT/OT consulted Past Medical History: Medical History[1] Past Surgical History: Surgical History[2] Social History: Social History Socioeconomic History Marital status: Spouse name: Not on file Number of children: 3 Years of education: Not on file Highest education level: Not on file Occupational History Not on file Tobacco Use Smoking status: Every Day Current packs/day: 1.00 Average packs/day: 1 pack/day for 125.8 years (125.8 ttl pk-yrs) Types: Cigarettes Start date: 08/27/1959 Smokeless tobacco: Never Vaping Use Vaping status: Never Used Substance and Sexual Activity Alcohol use: Not Currently Alcohol/week: 0.0 standard drinks of alcohol Drug use: Never Sexual activity: Not Currently Partners: Male control/protection: None Other Topics Concern Not on file Social History Narrative Not on file Social Drivers of Health Financial Resource Strain: Low Risk (07/04/2021) [facility] Overall Financial Resource Strain (CARDIA) Difficulty of Paying Living Expenses: Not hard at all Food Insecurity: No Food Insecurity (10/19/2024) Hunger Vital Sign Worried About Running Out of Food in the Last Year: Never true Ran Out of Food in the Last Year: Never true Transportation Needs: No Transportation Needs (10/19/2024) PRAPARE - Transportation Lack of Transportation (Medical): No Lack of Transportation (Non-Medical): No Physical Activity: Not on file Stress: Not on file Social Connections: Not on file Intimate Partner Violence: Not At Risk (10/19/2024) Humiliation, Afraid, Rape, and Kick questionnaire Fear of Current or Ex-Partner: No Emotionally Abused: No Physically Abused: No Sexually Abused: No Housing Stability: Low Risk (10/19/2024) Housing Stability Vital Sign Unable to Pay for Housing in the Last Year: No Number of Times Moved in the Last Year: 1 Homeless in the Last Year: No Family History: Family History[3] Medications Reconciliation: Allergies: Allergies[4] REVIEW OF SYSTEMS: 10 point ROS obtained, as per HPI, otherwise NEG Vitals: BP (!) 168/81 Pulse 99 Temp 36.6 C (97.8 F) (Oral) Resp 18 Ht 5' 6" (1.676 m) Wt 180 lb (81.6 kg) SpO2 99% BMI 29.05 kg/m BMI Classification: Overweight (BMI 25.0-29.9) Pulse Ox: SpO2 Av.2 % Min: 95 % Max: 100 % Supplemental O2: PHYSICAL EXAM: Physical Exam HENT: Head: Normocephalic and atraumatic. Mouth/Throat: Mouth: Mucous membranes are moist. Cardiovascular: Rate and Rhythm: Normal rate and regular rhythm. Pulmonary: Effort: Pulmonary effort is normal. Abdominal: Palpations: Abdomen is soft. Skin: General: Skin is warm and dry. Neurological: Mental Status: She is alert and oriented to person, place, and time. DATA: CBC: Recent Labs 06/05/25 0901 WBC 18.2* RBC 5.25* HGB 15.4 HCT 45.6 MCV 86.9 RDW 12.6 PLT 314 BMP: Recent Labs 06/05/25 09 NA 134* K 5.1 CL 99 CO2 26 BUN 23 CREATININE 1.24* GLUCOSE 332* CALCIUM 10.8* ANIONGAP 9 LIVER PROFILE:No results for input(s): "AST", "ALT", "BILITOT", "ALKPHOS", "PROT" in the last 72 hours. No lab exists for component: LABALBU PT/INR: Recent Labs 06/05/25 0901 PROTIME 11.9 INR 1.1 CARDIAC ENZYMES: No results for input(s): "TROPONINI" in the last 72 hours. Procalcitonin: No results found for: "PROCAL" Urine Culture: Results for orders placed or performed during the hospital encounter of 10/18/24 Urine culture Collection Time: 10/18/24 8:04 PM Specimen: Urine, Clean Catch Result Value Ref Range Urine Culture >100,000 CFU/mL Escherichia coli (A) Susceptibility Escherichia coli - BROTH MICRODILUTION Amoxicillin / Clavulanate <=2 Susceptible ug/ml Ampicillin <=2 Susceptible ug/ml Ampicillin / Sulbactam <=2 Susceptible ug/ml Aztreonam <=1 Susceptible ug/ml Cefazolin <=4 Susceptible ug/ml Cefepime <=1 Susceptible ug/ml Ceftriaxone <=1 Susceptible ug/ml Ciprofloxacin <=0.25 Susceptible ug/ml Gentamicin <=1 Susceptible ug/ml Meropenem <=0.25 Susceptible ug/ml Nitrofurantoin <=16 Susceptible ug/ml Piperacillin / Tazobactam <=4 Susceptible ug/ml Trimethoprim / Sulfamethoxazole <=20 Susceptible ug/ml COVID-19 PCR: No results for input(s): "COVID19" in the last 72 hours. I reviewed: [x] laboratory results [x] radiographic results At the time of today's encounter. Pt was advised of the results. Data: (CAT1) Reviewed 2 notes from different specialty or health system (each=1). (CAT1) Reviewed 3 or more labs/studies ordered by another provider not previously counted (each=1, panels count as 1). (CAT1) Ordered 3 or more new labs and/or studies (each=1, panels count as 1). (LOW: 2x CAT1 or independent historian MOD: 3x CAT1 or 1x CAT3 EXTENSIVE: 3x CAT1 and 1x CAT3) Assessment Discussed management with the ED provider and agree with hospitalization. Acute, acute on chronic, unstable/uncontrolled chronic problems/diagnoses: Syncope Fall UTI Severe sepsis in ED Leukocytosis Diabetes mellitus with hyperglycemia Uncontrolled hypertension, resumed losartan, added as needed labetalol Stable chronic problems affecting care, new non-acute diagnoses: Medical History[5] Plan As a result of the above findings & factors, the following mgmt was pursued: - Admit to telemetry - Continue with cefepime - Follow-up blood cultures, urine culture - Cardiology consulted - Neurology consulted - Geriatrics consulted - PT/OT consulted - Home meds as ordered - Hypoglycemia protocol - Added insulin sliding scale - am labs, replace lytes prn - PT/OT/CM/SW - delirium precautions: increase activity, limit nighttime disturbances, and avoid anticholinergic meds, benzos, etc - DVT prophylaxis: encourage ambulation and already anticoagulated SEP-1 CORE MEASURE DATA SIRS Criteria Sepsis Criteria Severe Sepsis Criteria Septic Shock Criteria Must meet 2: [] Temperature > 100.4 F (38 C) or < 96.8 F (36 C) [x] HR > 90 [] RR > 20 [x] WBC > 12 or < 4 or 10% bands Must be confirmed or suspected to move forward with diagnosis of sepsis. Must select at least one: [x] Bacterial Infection Confirmed or Suspected. [] Viral Infection Confirmed or Suspected. [] Fungal Infection Confirmed or Suspected. [] No infection present. Patient does not meet criteria for Sepsis. Must meet 1: [x] Lactate > 2 or [] Signs of Organ Dysfunction: - SBP < 90 or MAP < 65 - Altered mental status - Creatinine > 2 or increased from baseline - Urine Output < 0.5 ml/kg/hr - Bilirubin > 2 - INR > 1.5 - Platelets < 100,000 - Acute Respiratory Failure as evidenced by new need for NIPPV or mechanical ventilation [] No criteria met for Severe Sepsis. Must meet 1: [] Lactate = or > 4 or [] SBP < 90 or MAP < 65 for at least two readings in the first hour after fluid bolus administration [] No criteria met for Septic Shock. No data found. Recent Labs 06/05/25 0901 06/05/25 1311 WBC 18.2* -- LACTATE 2.7* 1.9 CREATININE 1.24* -- INR 1.1 -- PLT 314 -- Sepsis Identified at 0901 hours. Fluid Resuscitation Rational: at least 30mL/kg based on entered actual body weight at time of triage Infection Source: Urinary System Reassessment Exam: Not applicable. Patient does not have Septic Shock. Jayy White MD Complexity: Acute illness or injury posing a threat to life or body function (HIGH). Risk: Advance Directive: Prior Anticipated Discharge - Date -2 to 3 days - Location -likely home - Pending the following -clinical course, consult recommendations Total time spent (which include face to face and non face to face encounters) : 75.5 minutes. Extended Emergency Contact Information Primary Emergency Contact: Charbel Agee (POA) [address]: [address] [place] [address] Mobile Relation: Child Pasteuriser Operator needed? No Secondary Emergency Contact: Marbin Agee [facility] Mobile Relation: Son Pasteuriser Operator needed? 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 right temporal /occiptial/ and hypocapal Depression History of blood transfusion Hyperlipidemia Hypertension Mixed Alzheimer's and vascular dementia ([facility]/HCC) 01/21/2025 Type 2 diabetes mellitus (HCC) Type II or unspecified type diabetes mellitus without mention of complication, not stated as uncontrolled (HCC) [2] Past Surgical History: Procedure Laterality Date BREAST LUMPECTOMY Left BREAST LUMPECTOMY Left 2013 s/p radiation as well CATARACT EXTRACTION W/ INTRAOCULAR LENS IMPLANT Bilateral 10/2015, 12/2015 SECTION (HISTORICAL) SECTION, LOW TRANSVERSE [id number] CHOLECYSTECTOMY DILATION AND CURETTAGE OF UTERUS FEMUR FRACTURE SURGERY Right 11/30/2019 HIP ARTHROPLASTY Right 01/21/2020 conversion JOINT REPLACEMENT Bilateral ROTATOR CUFF REPAIR Right TOTAL ABDOMINAL HYSTERECTOMY [3] Family History Problem Relation Name Age of Onset Asthma Son Thyroid disease Brother Cancer Mother Cancer Father Thyroid disease Mother Cancer Brother Asthma Son Asthma Son Diabetes Son Charbel Agee [4] Allergies Allergen Reactions Aspirin Hives and Swelling Blotchy, GI, hives Penicillins Blotchiness tolerates cephalosporins 09/2024 Sulfa Antibiotics Hives and Swelling blotchy [5] Past Medical History: Diagnosis Date Arrhythmia Arthritis Atrial fibrillation (HCC) Breast CA (HCC) Cancer (HCC) 09/30/2012 Left quadrantectomy & axillary LN 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 right temporal /occiptial/ and hypocapal Depression History of blood transfusion Hyperlipidemia Hypertension Mixed Alzheimer's and vascular dementia (CMS/HCC) 01/21/2025 Type 2 diabetes mellitus (HCC) Type II or unspecified type diabetes mellitus without mention of complication, not stated as uncontrolled (HCC) [facility] 06-05-2025 Note [facility] 06-05-2025 History and physical note Attending History and Physical Admit Date: 06/05/2025 PCP: NENO IQBAL MD Chief Complaint Patient presents with Fall Reason for Admission: Syncope, fall History Obtained From: patient, EMR HISTORY OF PRESENT ILLNESS: Beverly is a 79 y.o. female with past medical history below who presents with found down by his son/neighbors. She states she was sitting in chair fell off, found by his neighbors/son, she did not remember what happened, not sure how much time she was down. Son called EMS. She states she lives alone at home and her son manages her medication. She denies chest pain, shortness of breath, cough, wheezing, abdominal pain nausea, vomiting, bowel or bladder changes. She is complaining of some lower back pain on her left side. In the ED, vital signs are as follows: temp 97.8, HR 93, RR 20, BP 159/88, oxygen sat 98% on room air. Pertinent labs: Sodium 134, creatinine 1.24, was 1.19 four months ago, glucose elevated 332, magnesium 1.6, normal, first lactic acid 2.7, elevated, repeat lactic acid normal, CPK 141, normal, WBC 18.2, elevated, hemoglobin 15.4, normal, platelets 314, normal, UA shows UTI, follow-up blood cultures, urine culture. Will admit for further evaluation and management. EKG shows Sinus rhythm Atrial premature complex Borderline prolonged NC interval Inferior infarct, old 2 sets of troponin negative CT head shows 1. Atrophy and remote appearing small vessel white matter/right basal ganglia chronic ischemic/neurodegenerative changes. 2. No definite evidence of acute infarction, mass lesion, nor hemorrhage or fracture. CT cervical spine shows 1. No evidence of cervical spine fracture or dislocation, unchanged since last exam of 10/18/2024. 2. Degenerative changes CT chest abdomen and pelvis shows 1. Osteopenia with degenerative changes seen throughout the spine with mild superior endplate depression L5 of uncertain age with facet hypertrophy and mild L4-L5 spinal listhesis. Moderate generalized calcific atherosclerosis 2. Old right rib fractures with prior surgery with plating, remote appearing left rib fractures, degenerative joint disease both shoulders. 3. No definite evidence of hemorrhage X-ray pelvis shows Right RIC with old healed proximal femur fracture. Degenerative joint disease left hip, degenerative changes lower lumbar spine Patient was started on cefepime in ED Cardiology consulted for syncope Neurology consulted for syncope Geriatrics consulted for follow-up PT/OT consulted Past Medical History: Medical History[1] Past Surgical History: Surgical History[2] Social History: Social History Socioeconomic History Marital status: Spouse name: Not on file Number of children: 3 Years of education: Not on file Highest education level: Not on file Occupational History Not on file Tobacco Use Smoking status: Every Day Current packs/day: 1.00 Average packs/day: 1 pack/day for 125.8 years (125.8 ttl pk-yrs) Types: Cigarettes Start date: 08/27/1959 Smokeless tobacco: Never Vaping Use Vaping status: Never Used Substance and Sexual Activity Alcohol use: Not Currently Alcohol/week: 0.0 standard drinks of alcohol Drug use: Never Sexual activity: Not Currently Partners: Male control/protection: None Other Topics Concern Not on file Social History Narrative Not on file Social Drivers of Health Financial Resource Strain: Low Risk (07/04/2021) Received from [facility] Overall Financial Resource Strain (CARDIA) Difficulty of Paying Living Expenses: Not hard at all Food Insecurity: No Food Insecurity (10/19/2024) Hunger Vital Sign Worried About Running Out of Food in the Last Year: Never true Ran Out of Food in the Last Year: Never true Transportation Needs: No Transportation Needs (10/19/2024) PRAPARE - Transportation Lack of Transportation (Medical): No Lack of Transportation (Non-Medical): No Physical Activity: Not on file Stress: Not on file Social Connections: Not on file Intimate Partner Violence: Not At Risk (10/19/2024) Humiliation, Afraid, Rape, and Kick questionnaire Fear of Current or Ex-Partner: No Emotionally Abused: No Physically Abused: No Sexually Abused: No Housing Stability: Low Risk (10/19/2024) Housing Stability Vital Sign Unable to Pay for Housing in the Last Year: No Number of Times Moved in the Last Year: 1 Homeless in the Last Year: No Family History: Family History[3] Medications Reconciliation: Allergies: Allergies[4] REVIEW OF SYSTEMS: 10 point ROS obtained, as per HPI, otherwise NEG Vitals: BP (!) 168/81 Pulse 99 Temp 36.6 C (97.8 F) (Oral) Resp 18 Ht 5' 6" (1.676 m) Wt 180 lb (81.6 kg) SpO2 99% BMI 29.05 kg/m BMI Classification: Overweight (BMI 25.0-29.9) Pulse Ox: SpO2 Av.2 % Min: 95 % Max: 100 % Supplemental O2: PHYSICAL EXAM: Physical Exam HENT: Head: Normocephalic and atraumatic. Mouth/Throat: Mouth: Mucous membranes are moist. Cardiovascular: Rate and Rhythm: Normal rate and regular rhythm. Pulmonary: Effort: Pulmonary effort is normal. Abdominal: Palpations: Abdomen is soft. Skin: General: Skin is warm and dry. Neurological: Mental Status: She is alert and oriented to person, place, and time. DATA: CBC: Recent Labs 06/05/25 09 WBC 18.2* RBC 5.25* HGB 15.4 HCT 45.6 MCV 86.9 RDW 12.6 PLT 314 BMP: Recent Labs 06/05/25900 NA 134* K 5.1 CL 99 CO2 26 BUN 23 CREATININE 1.24* GLUCOSE 332* CALCIUM 10.8* ANIONGAP 9 LIVER PROFILE:No results for input(s): "AST", "ALT", "BILITOT", "ALKPHOS", "PROT" in the last 72 hours. No lab exists for component: LABALBU PT/INR: Recent Labs 06/05/25900 PROTIME 11.9 INR 1.1 CARDIAC ENZYMES: No results for input(s): "TROPONINI" in the last 72 hours. Procalcitonin: No results found for: "PROCAL" Urine Culture: Results for orders placed or performed during the hospital encounter of 10/18/24 Urine culture Collection Time: 10/18/24 8:04 PM Specimen: Urine, Clean Catch Result Value Ref Range Urine Culture >100,000 CFU/mL Escherichia coli (A) Susceptibility Escherichia coli - BROTH MICRODILUTION Amoxicillin / Clavulanate <=2 Susceptible ug/ml Ampicillin <=2 Susceptible ug/ml Ampicillin / Sulbactam <=2 Susceptible ug/ml Aztreonam <=1 Susceptible ug/ml Cefazolin <=4 Susceptible ug/ml Cefepime <=1 Susceptible ug/ml Ceftriaxone <=1 Susceptible ug/ml Ciprofloxacin <=0.25 Susceptible ug/ml Gentamicin <=1 Susceptible ug/ml Meropenem <=0.25 Susceptible ug/ml Nitrofurantoin <=16 Susceptible ug/ml Piperacillin / Tazobactam <=4 Susceptible ug/ml Trimethoprim / Sulfamethoxazole <=20 Susceptible ug/ml COVID-19 PCR: No results for input(s): "COVID19" in the last 72 hours. I reviewed: [x] laboratory results [x] radiographic results At the time of today's encounter. Pt was advised of the results. Data: (CAT1) Reviewed 2 notes from different specialty or health system (each=1). (CAT1) Reviewed 3 or more labs/studies ordered by another provider not previously counted (each=1, panels count as 1). (CAT1) Ordered 3 or more new labs and/or studies (each=1, panels count as 1). (LOW: 2x CAT1 or independent historian MOD: 3x CAT1 or 1x CAT3 EXTENSIVE: 3x CAT1 and 1x CAT3) Assessment Discussed management with the ED provider and agree with hospitalization. Acute, acute on chronic, unstable/uncontrolled chronic problems/diagnoses: Syncope Fall UTI Severe sepsis in ED Leukocytosis Diabetes mellitus with hyperglycemia Uncontrolled hypertension, resumed losartan, added as needed labetalol Stable chronic problems affecting care, new non-acute diagnoses: Medical History[5] Plan As a result of the above findings & factors, the following mgmt was pursued: - Admit to telemetry - Continue with cefepime - Follow-up blood cultures, urine culture - Cardiology consulted - Neurology consulted - Geriatrics consulted - PT/OT consulted - Home meds as ordered - Hypoglycemia protocol - Added insulin sliding scale - am labs, replace lytes prn - PT/OT/CM/SW - delirium precautions: increase activity, limit nighttime disturbances, and avoid anticholinergic meds, benzos, etc - DVT prophylaxis: encourage ambulation and already anticoagulated SEP-1 CORE MEASURE DATA SIRS Criteria Sepsis Criteria Severe Sepsis Criteria Septic Shock Criteria Must meet 2: [] Temperature > 100.4 F (38 C) or < 96.8 F (36 C) [x] HR > 90 [] RR > 20 [x] WBC > 12 or < 4 or 10% bands Must be confirmed or suspected to move forward with diagnosis of sepsis. Must select at least one: [x] Bacterial Infection Confirmed or Suspected. [] Viral Infection Confirmed or Suspected. [] Fungal Infection Confirmed or Suspected. [] No infection present. Patient does not meet criteria for Sepsis. Must meet 1: [x] Lactate > 2 or [] Signs of Organ Dysfunction: - SBP < 90 or MAP < 65 - Altered mental status - Creatinine > 2 or increased from baseline - Urine Output < 0.5 ml/kg/hr - Bilirubin > 2 - INR > 1.5 - Platelets < 100,000 - Acute Respiratory Failure as evidenced by new need for NIPPV or mechanical ventilation [] No criteria met for Severe Sepsis. Must meet 1: [] Lactate = or > 4 or [] SBP < 90 or MAP < 65 for at least two readings in the first hour after fluid bolus administration [] No criteria met for Septic Shock. No data found. Recent Labs 06/05/25 0901 06/05/25 1311 WBC 18.2* -- LACTATE 2.7* 1.9 CREATININE 1.24* -- INR 1.1 -- PLT 314 -- Sepsis Identified at 0901 hours. Fluid Resuscitation Rational: at least 30mL/kg based on entered actual body weight at time of triage Infection Source: Urinary System Reassessment Exam: Not applicable. Patient does not have Septic Shock. Jayy White MD Complexity: Acute illness or injury posing a threat to life or body function (HIGH). Risk: Advance Directive: Prior Anticipated Discharge - Date -2 to 3 days - Location -likely home - Pending the following -clinical course, consult recommendations Total time spent (which include face to face and non face to face encounters) : 75.5 minutes. Extended Emergency Contact Information Primary Emergency Contact: Charbel Agee (POA) [address]: [address] [place] [address] Mobile Relation: Child Pasteuriser Operator needed? No Secondary Emergency Contact: Marbin Agee [facility] Mobile Relation: Son Pasteuriser Operator needed? 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 right temporal /occiptial/ and hypocapal Depression History of blood transfusion Hyperlipidemia Hypertension Mixed Alzheimer's and vascular dementia (CMS/HCC) 01/21/2025 Type 2 diabetes mellitus (HCC) Type II or unspecified type diabetes mellitus without mention of complication, not stated as uncontrolled (HCC) [2] Past Surgical History: Procedure Laterality Date BREAST LUMPECTOMY Left BREAST LUMPECTOMY Left 2012 s/p radiation as well CATARACT EXTRACTION W/ INTRAOCULAR LENS IMPLANT Bilateral 10/2015, 12/2015 SECTION (HISTORICAL) SECTION, LOW TRANSVERSE [id number] CHOLECYSTECTOMY DILATION AND CURETTAGE OF UTERUS FEMUR FRACTURE SURGERY Right 11/30/2019 HIP ARTHROPLASTY Right 01/21/2020 conversion JOINT REPLACEMENT Bilateral ROTATOR CUFF REPAIR Right TOTAL ABDOMINAL HYSTERECTOMY [3] Family History Problem Relation Name Age of Onset Asthma Son Thyroid disease Brother Cancer Mother Cancer Father Thyroid disease Mother Cancer Brother Asthma Son Asthma Son Diabetes Son Charbel Agee [4] Allergies Allergen Reactions Aspirin Hives and Swelling Blotchy, GI, hives Penicillins Blotchiness tolerates cephalosporins 09/2024 Sulfa Antibiotics Hives and Swelling blotchy [5] Past Medical History: Diagnosis Date Arrhythmia Arthritis Atrial fibrillation (HCC) Breast CA (HCC) Cancer (HCC) 09/30/2012 Left quadrantectomy & axillary LN 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 [facility] 06-05-2025 Physician Emergency department Note Emergency Department Encounter [facility] EMERGENCY DEPT Patient: Beverly Agee : 1945 Date of Evaluation: 06/05/2025 ED Supervising Physician: Ramiro Olivera MD I independently examined and evaluated Beverly Agee. THIS IS MY SUPERVISORY AND SHARED VISIT NOTE: I personally saw the patient and made/approved the management plan and take responsibility for the patient management. In brief, Beverly Agee is a 79 y.o. female that presents to the emergency department as a level 3 trauma activation. History provided by EMS, states that they were called because the patient's son had not been able to get a hold of the patient, so neighbor went to check on her and found her down. The patient states that she sustained a fall, but is unsure how long she was down for or why she fell. She denies any chest pain or shortness of breath. EMS states that her glucose was 314 and that she is on Xarelto for atrial fibrillation. They report that when they initially arrived, she seemed to be very altered, confused about which building she was in and having hallucinations, but once they helped her up, she seemed to "snap out of it" and become more oriented. She endorses vomiting and stomach upset. Focused exam: Pupils 4 mm equal, reactive to light bilaterally. Erythema and induration beneath the right breast. No reproducible TTP along the chest wall. Brief ED course/MDM: EMERGENCY DEPARTMENT COURSE and DIFFERENTIAL DIAGNOSIS/MDM: Vitals: Vitals: 06/05/25 0851 06/05/25 0904 06/05/25 0906 BP: (!) 159/88 (!) 140/78 Pulse: 93 90 Resp: 20 (!) 98 Temp: 36.6 C (97.8 F) TempSrc: Oral SpO2: 98% (!) 18% Weight: 81.6 kg (180 lb) Height: 1.676 m (5' 6") The patient presented with a chief complaint of a fall. Trauma team activated prior to arrival, as patient is on Xarelto and had altered mental status The differential diagnosis associated with this patient's presentation includes but is not limited to: Presentation concerning for traumatic injuries, including fractures or intracranial hemorrhage, rhabdomyolysis from being down. Rash to the inframammary fold most concerning for fungal infection. I reviewed external records from: PDMP demonstrating 2 prescriptions, to include [place] and tramadol The patient will be admitted The patient is in agreement with this plan. ED Medications managed: Medications iopamidol (Isovue-370) 76 % injection 75 mL (has no administration in time range) CRITICAL CARE TIME None All diagnostic, treatment, and disposition decisions were made by myself in conjunction with the Resident or MILKA. I also supervised virk portions of any procedures performed by the Resident. For all further details of the patient's emergency department visit, please see their documentation. (Comment: Please note this report has been produced using speech recognition software and may contain errors related to that system including errors in grammar, punctuation, and spelling, as well as words and phrases that may be inappropriate. If there are any questions or concerns please feel free to contact the dictating provider for clarification.) Ramiro Olivera MD [facility] Jen Olivera MD 06/05/25 1022 [employer] Work Phone: 05-28-2025 Telephone encounter Note Spoke to patient's son and informed him what Ani said. He stated he will have his mom get her fasting bloodwork done. [employer] 05-28-2025 Miscellaneous Notes Spoke to patient's son and informed him what Ani said. He stated he will have his mom get her fasting bloodwork done. Please call patient's son and notify him that we should be able to work with [employer] and come up with a system to be able to use this pump. The problem is is that we need to have fasting blood work completed before we can move forward to determine if she is producing insulin. In order to have this blood work done she needs to again be fasting and have her blood sugar be less than 225. There is a chance that we will not be able to use this pump depending on the labs. If that is the case we will be able to then move forward with the OmniPod. I do think it is important to go ahead and have this labs checked because the [employer] pump is going to give her so much better coverage. documented in this encounter [facility] 05-26-2025 Telephone encounter Note Please call patient's son and notify him that we should be able to work with [employer] and come up with a system to be able to use this pump. The problem is is that we need to have fasting blood work completed before we can move forward to determine if she is producing insulin. In order to have this blood work done she needs to again be fasting and have her blood sugar be less than 225. There is a chance that we will not be able to use this pump depending on the labs. If that is the case we will be able to then move forward with the OmniPod. I do think it is important to go ahead and have this labs checked because the [employer] pump is going to give her so much better coverage. [facility] Work Phone: 05-26-2025 Miscellaneous Notes Please call patient's son and notify him that we should be able to work with [employer] and come up with a system to be able to use this pump. The problem is is that we need to have fasting blood work completed before we can move forward to determine if she is producing insulin. In order to have this blood work done she needs to again be fasting and have her blood sugar be less than 225. There is a chance that we will not be able to use this pump depending on the labs. If that is the case we will be able to then move forward with the OmniPod. I do think it is important to go ahead and have this labs checked because the [employer] pump is going to give her so much better coverage. documented in this encounter [facility] 05-26-2025 History of Present illness Narrative Images from the original note were not included. [facility] [place] [address] [facility] [address] [facility] [address] Dept: [phone] Dept Loc: [phone] Visit type: Established patient Reason for Visit: Diabetes Mellitus, Hyperglycemia, and Follow-up Assessment 1. Type 2 diabetes mellitus with hyperglycemia, with long-term current use of insulin (HCC) - AMB POC HEMOGLOBIN A1C - C-peptide - Basic metabolic panel 2. Hypertension associated with type 2 diabetes mellitus (HCC) 3. Hyperlipidemia associated with type 2 diabetes mellitus (HCC) 4. Class 1 obesity with serious comorbidity and body mass index (BMI) of 31.0 to 31.9 in adult, unspecified obesity type PLAN Type 2 diabetes mellitus with hyperglycemia, with long-term current use of insulin Lab Results Component Value Date HGBA1C 9.5 (A) 05/26/2025 Reviewed CGM data- TIR 20%, High 35, Very High 45, Low 0, very low 0, Average glucose 242, GMI 9.1% trends are high through out Diabetes is not stable Goal A1C = 8.0 Glucose goal range: 150-200 Insulin is necessary for ongoing mgmt. Based on patient discussion and available data, patient will make the following changes to their antihyperglycemic regimen: Continue Basaglar 24 units Continue Humalog 08/07/12 Continue dexcom G7- from [employer] Will send information to [employer] and consider using the 7 day tubing and the simplera Sync so that all changes can be made at one time - this will enable her son to be able to change site 1 time per week, still assit with daily checking in on her and assisting with bolus, Will check c peptide and fasting BMP to qualify will need to have fasting glucose less then 225 Scripts sent to pharmacy of pt choice: Yes Recommend FSBS to occur 4 times daily, be recorded, and message sent to office in 2 weeks for review. If CGM is worn, send message to the office with each sensor change for download. Diabetic Health Screen Micro albumin -05/2022 Eye exam -none recently Feet exam - per PODS they come to her house AMB POC HEMOGLOBIN A1C Hypertension associated with type 2 diabetes mellitus BP at today's visit-124/76 Continue losartan Hyperlipidemia associated with type 2 diabetes mellitus I have reviewed labs from 01/14/2025, total cholesterol 212, triglycerides 371, LDL 98, HDL 40, Goal LDL level is less than 100 The ASCVD Risk score (Evie AKBAR, et al., 2019) failed to calculate for the following reasons: Risk score cannot be calculated because patient has a medical history suggesting prior/existing ASCVD Continue Pravastatin Encouraged low fat low cholesterol diet Encouraged to increase exercise until at goal of minimum 150 minutes per week Class 1 obesity with serious comorbidity and body mass index (BMI) of 31.0 to 31.9 in adult, unspecified obesity type Body mass index is 29.54 kg/m . Wt Readings from Last 3 Encounters: 05/26/25 183 lb (83 kg) 02/20/25 161 lb (73 kg) 01/21/25 173 lb 6.4 oz (78.7 kg) Pt was counseled that diet and exercise are the foundation of DM treatment. If these 2 areas are not optimized then the pt will likely require more medications or higher doses to achieve control. Pt was asked to limit CHO consumption at each meal. Pt was advised to perform regular regimented brisk aerobic activity (ie walking, biking, swimming, etc) 30 min/d, 5d/wk (total of 150min weekly). Patient education: - Recommend FSBS to occur 4 times daily, be recorded, and send to office in 2 weeks for review. - Discussed healthy balanced diet and exercise - Discussed potential medication side effects - Discussed blood glucose goals and A1C targets - Discussed uncontrolled diabetes potential effects on organ systems - Discussed hypoglycemia treatment plan- glucose tabs and gvoke use - Discussed importance of annual dilated eye exam for Diabetes - Discussed importance of taking meds as prescribed - Discussed importance of foot care and follow up with Podiatry as needed for Diabetes - Discussed importance of Follow up for Diabetes - Patient instructed to call office if BG over 250 or under 70 consistently I REVIEWED laboratory Results/available data related to DM and complicationsYes: Pt was advised of the results. Discussed A1C and BG goals Encouraged lifestyle modifications of diet and exercise Encouraged optimal foot care- follow with podiatry if needed Encouraged following with ophthalmology Patient counseled on the importance of taking medication as prescribed Patient counseled on the effects of uncontrolled DM on other organ systems Patient counseled on risk factors assoicated with diabetes Patient counseled on detection and treatment of hypoglycemia Patient instructed to call office if BG >250 or <70 consistently Pt counseled about these recommendations. Pt voiced understanding. These recommendations made based on interpretation of available data (which may include FSBS, A1C, venous sampling, or data from pt recall). Records from outside facility/PCP office to be requested: No No follow-ups on file. Subjective HPI PCP is NENO IQBAL MD Referring is PCP Initial [facility] office visit: 11/20/2024 Last Visit with telecommunications technician none Last office visit: 02/20/2025 Presents with son- DM Onset: 5 years ago Type of DM: 2 Patient lives at home alone, has dementia and has her son and her sons mother in law coame about 2 times daily to give insulin, son misses 1-2 times per week, he give the lantus at dinner time , MIL gives AM humlaog with breakfast Complications: Cardiovascular -- Yes CVA, HTN, HLD, Statin Use -- Yes Retinopathy -- No, Last LAINA/Retina Eval: Nephropathy -- No, RIN/ARB Use -- Yes Polyneuropathy -- No , Foot Exam: 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 home visit for feet care Obesity -- No Other -- No Personal history of pancreatitis-- No History of alcohol consumption--No Family history of thyroid cancer-- No Personal history o recent/severe Mycotic/Urinary tract infections -- no Current DM Medications: Basaglar 24 units daily- son stops every day and makes sure that she gets it, Humalog 12/0/0 Does not get with other meals Taking Medications w/o Missed Doses: No - see above Pt c/o SEs from Medications at today's visit: no Pt voices concerns about cost of medications at today's visit: no Hyperglycemia present: Yes Symptoms associated none Hypoglycemia present: No Symptoms associated none documented, she is forgetful Blood sugar monitoring device used: dexcom Frequency of BGL checks continue Meter present:Yes Log present: Yes Reviewed w/ pt: Yes Scanned into Media: Yes Following Diet for DM: No Usually 2 meals daily Breakfast and dinner - Sugary Beverages - not regularly- as a treat Following Exercise Regimen: No AADL Previously Used DM Meds: Yes Review of Systems Constitutional: Negative for activity change, appetite change and unexpected weight change. Gastrointestinal: Negative for diarrhea, nausea and vomiting. Endocrine: Negative for polydipsia, polyphagia and polyuria. Genitourinary: Negative for dysuria. Skin: Negative for color change, pallor and wound. Allergies[1] Current Medications[2] Medical History[3] Social History Tobacco Use Smoking status: Every Day Current packs/day: 1.00 Average packs/day: 1 pack/day for 125.7 years (125.7 ttl pk-yrs) Types: Cigarettes Start date: [birth year]/27/1957 Smokeless tobacco: Never Substance Use Topics Alcohol use: Not Currently Alcohol/week: 0.0 standard drinks of alcohol Surgical History[4] Family History[5] Objective BP 124/76 (BP Location: Right arm, Patient Position: Sitting, BP Cuff Size: Large adult) Pulse 102 Ht 5' 6" (1.676 m) Wt 183 lb (83 kg) BMI 29.54 kg/m Physical Exam Vitals reviewed. Constitutional: General: She is not in acute distress. Appearance: Normal appearance. She is obese. She is not ill-appearing. HENT: Head: Normocephalic and atraumatic. Left Ear: External ear normal. Nose: Nose normal. Mouth/Throat: Mouth: Mucous membranes are moist. Pulmonary: Effort: Pulmonary effort is normal. No respiratory distress. Musculoskeletal: General: Normal range of motion. Skin: General: Skin is warm and dry. Neurological: General: No focal deficit present. Mental Status: She is alert. Mental status is at baseline. Comments: Alert to name, pleasant sitting in wheelchair, answering some questions, deferrs to her son mostly Psychiatric: Mood and Affect: Mood normal. Behavior: Behavior normal. Data Reviewed and Summarized Labs: No components found for: "LABA1C" No components found for: "EAG" Lab Results Component Value Date NA 133 (L) 01/14/2025 K 5.2 (H) 01/14/2025 CL 98 01/14/2025 CO2 27 01/14/2025 BUN 18 01/14/2025 CREATININE 1.19 (H) 01/14/2025 CREATININE 0.77 08/01/2021 GLUCOSE 519 (HH) 01/14/2025 CALCIUM 10.0 01/14/2025 Lab Results Component Value Date CHOL 212 (H) 01/14/2025 CHOL 187 07/01/2022 CHOL 207 (A) 06/09/2020 Lab Results Component Value Date TRIG 371 (H) 01/14/2025 TRIG 449 (H) 07/01/2022 TRIG 204 (A) 06/09/2020 Lab Results Component Value Date HDL 40 (L) 01/14/2025 HDL 33 (L) 07/01/2022 HDL 38 (L) 06/09/2020 Lab Results Component Value Date LDLCALC 98 01/14/2025 LDLCALC 07/01/2022 Comment: Calculated LDL invalid, triglycerides >400 mg/dl No results found for: "VLDL" Lab Results Component Value Date CHOLHDLRATIO 5 01/14/2025 CHOLHDLRATIO 6 07/01/2022 CHOLHDLRATIO 5 06/09/2020 No results found for: "LQZD36CNP" Imaging/Testing: Electronically signed by Yifan Dooley MSN, DYE MAKER, WEIGHTS AND MEASURES SEALER-C, CDECS on 05/26/2025 5:20 PM Portions of the information within this encounter were entered using an electronic dictation system. Best attempts were made to edit/proofread the information prior to note completion. Despite the review of information, some errors may remain. If there are questions related to the information contained within the note please contact the signing physician directly. [1] Allergies Allergen Reactions Aspirin Hives and Swelling Blotchy, GI, hives Penicillins Blotchiness tolerates cephalosporins 09/2024 Sulfa Antibiotics Hives and Swelling blotchy [2] Current Outpatient Medications: ascorbic acid (Vitamin C) 500 MG tablet, Take 1,000 mg by mouth daily., Disp: , Rfl: Calcium Carbonate (CALCIUM 600 PO), Take 1 tablet by mouth daily., Disp: , Rfl: cholecalciferol (Vitamin D3) 25 MCG (1000 UT) tablet, Take 5,000 Units by mouth daily. 125mcg, Disp: , Rfl: Continuous Glucose Sensor (Dexcom G7 Sensor) [facility] [place], 1 Device as needed. Use a new sensor every 10 days., Disp: , Rfl: cyanocobalamin (Vitamin B-12) 1000 MCG tablet, Take 2,500 mcg by mouth daily., Disp: , Rfl: donepezil (Aricept) 10 MG tablet, Take 1 tablet (10 mg) by mouth daily., Disp: 90 tablet, Rfl: 1 insulin aspart (NovoLOG FLEXPEN) 100 UNIT/ML pen, Inject 12 Units under the skin 2 times daily (before meals)., Disp: 21.6 mL, Rfl: 3 insulin glargine (Basaglar KwikPen) 100 UNIT/ML pen, Inject 24 Units under the skin every morning., Disp: 21.6 mL, Rfl: 3 losartan (Cozaar) 25 MG tablet, Take 1 tablet (25 mg) by mouth daily., Disp: 30 tablet, Rfl: 0 magnesium oxide (Mag-Ox) 400 (240 Mg) MG tablet, Take 1 tablet (400 mg) by mouth 2 times daily., Disp: 30 tablet, Rfl: 0 melatonin 5 MG tablet, Take 1 tablet (5 mg) by mouth Nightly., Disp: 30 tablet, Rfl: 0 pravastatin (Pravachol) 80 MG tablet, Take 1 tablet (80 mg) by mouth in the morning., Disp: 90 tablet, Rfl: 1 rivaroxaban (Xarelto) 20 MG tablet, TAKE 1 TABLET BY MOUTH EVERY MORNING WITH BREAKFAST, Disp: 90 tablet, Rfl: 1 venlafaxine XR (Effexor XR) 75 MG 24 hr capsule, Take 3 capsules (225 mg) by mouth daily (with breakfast). Do not crush or chew. (Patient taking differently: Take 150 mg by mouth 2 times daily. Do not crush or chew.), Disp: 90 capsule, Rfl: 11 Drug [place] Unifine Pentips Plus 32G X 4 MM misc, use 1 (ONE) needle FOUR TIMES DAILY, Disp: , Rfl: fenofibrate (Tricor) 54 MG tablet, Take 1 tablet (54 mg) by mouth daily., Disp: 30 tablet, Rfl: 0 traZODone (Desyrel) 50 MG tablet, Take 50 mg by mouth Nightly as needed for sleep. 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 temporal /occiptial/ and hypocapal Depression History of blood transfusion Hyperlipidemia Hypertension Mixed Alzheimer's and vascular dementia (CMS/HCC) 01/21/2025 Type 2 diabetes mellitus (HCC) Type II or unspecified type diabetes mellitus without mention of complication, not stated as uncontrolled (HCC) [4] Past Surgical History: Procedure Laterality Date BREAST LUMPECTOMY Left BREAST LUMPECTOMY Left 2013 s/p radiation as well CATARACT EXTRACTION W/ INTRAOCULAR LENS IMPLANT Bilateral 10/2015, 12/2015 SECTION (HISTORICAL) SECTION, LOW TRANSVERSE [id number] CHOLECYSTECTOMY DILATION AND CURETTAGE OF UTERUS FEMUR FRACTURE SURGERY Right 11/30/2019 HIP ARTHROPLASTY Right 01/21/2020 conversion JOINT REPLACEMENT Bilateral ROTATOR CUFF REPAIR Right TOTAL ABDOMINAL HYSTERECTOMY [5] Family History Problem Relation Name Age of Onset Asthma Son Thyroid disease Brother Cancer Mother Cancer Father Thyroid disease Mother Cancer Brother Asthma Son Asthma Son Diabetes Son Charbel Agee documented in this encounter [facility] 04-16-2025 Telephone encounter Note Called and spoke with sohail Bargre. He reports patient does not take medications on her own. He fills pill box and administers her morning medications when he arrives to her home at 3 pm. She then takes nighttime medications before he leaves. She continues on the Donepezil 10mg daily and is tolerating. No reported side effects. She is eating well. He assists with insulin. He has looked into [facility] but is trying to hold off. There is family that may chip in for increased help. Patient refuses Adult Day Program. Reviewed results of Alzheimer Biomarker test. [id number] positive. Discussed Dementia likely due to mixed Alzheimer's and Vascular etiology. He will call with any questions and concerns. [facility] 04-16-2025 Miscellaneous Notes Called and spoke with sohail Barger. He reports patient does not take medications on her own. He fills pill box and administers her morning medications when he arrives to her home at 3 pm. She then takes nighttime medications before he leaves. She continues on the Donepezil 10mg daily and is tolerating. No reported side effects. She is eating well. He assists with insulin. He has looked into [facility] but is trying to hold off. There is family that may chip in for increased help. Patient refuses Adult Day Program. Reviewed results of Alzheimer Biomarker test. [id number] positive. Discussed Dementia likely due to mixed Alzheimer's and Vascular etiology. He will call with any questions and concerns. documented in this encounter [facility] 02-20-2025 History of Present illness Narrative Images from the original note were not included. [facility] [address] [place] [address] Dept: [phone] Dept Loc: [phone] Visit type: Established patient Reason for Visit: Follow-up and Diabetes Mellitus Assessment and Plan 1. Type 2 diabetes mellitus with hyperglycemia, with long-term current use of insulin (HCC) - AMB POC GLUCOSE TEST - insulin glargine (Basaglar KwikPen) 100 UNIT/ML pen; Inject 24 Units under the skin every morning., Starting Sun02/20/2025, Until 02/20/2026, Normal - insulin aspart (NovoLOG FLEXPEN) 100 UNIT/ML pen; Inject 12 Units under the skin 2 times daily (before meals)., Starting Sun02/20/2025, Until 02/20/2026, Normal 2. Hypertension associated with type 2 diabetes mellitus (HCC) 3. Hyperlipidemia associated with type 2 diabetes mellitus (HCC) 4. Class 1 obesity with serious comorbidity and body mass index (BMI) of 31.0 to 31.9 in adult, unspecified obesity type Lab Results Component Value Date EGFR 47.2 (L) 01/14/2025 TSH 2.07 10/21/2024 CHOL 212 (H) 01/14/2025 HDL 40 (L) 01/14/2025 LDLCALC 98 01/14/2025 MICROALBCREA 57.0 (H) 07/01/2022 DM2 Diabetes is: poorly controlled A1C Target: 7.5% without hypoglycemia Insulin is necessary for ongoing management Lab Results Component Value Date HGBA1C 10.3 (H) 01/14/2025 HGBA1C 10.8 (H) 10/19/2024 POC glucose test: 291 Recommendations: Patient will make the following changes to regimen: Needs to take doses consistently- unable to manage herself Discussed at length need for more frequent visits home from son or transferring to retirement for ongoing care Discussed risk with ongoing hyperglycemia at this level - Increase Basaglar 24 units qhs - Resume Novolog 12 units 2 times daily before meals- has not been taking Will likely need to adjust with blood glucose data- when available Needs to take doses consistently- unable to manage herself Discussed at length need for more frequent visits home from son or transferring to retirement for ongoing care Discussed risk with ongoing hyperglycemia at this level --> Labs to be done fasting prior to next visit; discussed holding supplements 5 days prior. --> Continue BG monitoring: via DG7/phone (or FSBS 4 times per day) and send in BGL in 1-2 weeks for review. --> Backup Meter: [employer] has supplies on hand --> Hypos: Glucagon and Glucose Tabs sent today and educated on use Education: Discussed with Patient: - Notification Parameters - Discussed healthy balanced diet and exercise - Discussed importance of annual dilated eye exam for Diabetes - Discussed potential medication side effects - Discussed blood glucose goals and A1C targets - Discussed uncontrolled diabetes potential effects on organ systems - Discussed hypoglycemia treatment plan - Discussed importance of taking meds as prescribed - Discussed importance of foot care and follow up with Podiatry as needed for Diabetes - Discussed importance of Follow up for Diabetes - Patient instructed to call office if BG over 250 or under 70 consistently HTN PCP Managed Losartan 25mg BP 132/70 --> Continue current therapy HLD PCP Managed Pravastatin 80mg, fenofibrate 54mg LOW DENSITY LIPOPROTEIN Date Value Ref Range Status 01/14/2025 98 0 - <100 mg/dL Final --> Continue statin. Follow FLP. Obesity Body mass index is 28.52 kg/m . Wt Readings from Last 3 Encounters: 02/20/25 161 lb (73 kg) 01/21/25 173 lb 6.4 oz (78.7 kg) 01/21/25 170 lb (77.1 kg) --> Continue to work on lifestyle changes: dietary habits; increasing activity as able, weight reduction --> Optimize DM agents to aid w/ the same. \\ - Patient counseled about these recommendations. Patient voiced understanding. [] Records from outside facility/PCP office to be requested. [x] Scripts sent to pharmacy of choice. No follow-ups on file. Diagnostic Data Reviewed Today: CGM AGP Reviewed: No Subjective HPI PCP: NENO IQBAL MD Referring Provider: Hospital follow up Initial [facility] Office visit: 11/20/2024 History of Type 2 Diabetes Time of Onset: 5 years ago Circumstances surrounding dx: screening Previous hospitalizations for DM: Endorses- hypoglycemia Family hx DM: Denies Family hx thyroid disease: Denies Family hx autoimmune disease: Denies Here with son Patient current complaints include: Patient with dementia, memory issues Patients son states that he is able to come give her insulin 5-6 days of the week Otherwise she does not give the insulin to herself Has not had dexcom Denies N/V/D abd pain Denies polys Son is organizing for at home care during the day- if he cannot set it up understands need for retirement Denies any recent surgeries, denies any new illnesses Denies any steroid use recently Current Medication Regimen: - Basaglar 18 units 5-6 days a week ( prescribed 18 units nightly) - Not taking Novolog (prescribed 12 units BIDAC) Previously Used DM Agents: Basaglar 50 units BID Novolog 15 TIDAC Injection Sites/Rotation: abdomen, rotates Missed Medication Doses: Denies Medication Side Effects: Denies Medication Cost Concerns: Denies OTC Supplement Usage: Denies Glucose Monitoring CGM use: Yes-DG7 BG Meter: [facility] BGL present: no Scanned into media: no BGL discussed with patient: unable Recent Hyperglycemia - Endorses Recent Hypoglycemia: Denies Hypoglycemic Treatment Plan: gvoke- and glucose tablets sent today BG Trends: unable Dietary Patterns: Usually 2 meals daily Breakfast and dinner - Sugary Beverages - not regularly- as a treat Exercise Patterns: ADLs Complication History Retinopathy: Denies - Last Dilated Eye Exam: patient will sched Neuropathy: Denies - Last DMFE: UTD PCP. 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 Gastrointestinal: Negative for diarrhea, nausea and vomiting. Endocrine: Negative for polydipsia, polyphagia and polyuria. Genitourinary: Negative for dysuria. Skin: Negative for color change, pallor and wound. ROS was performed at the time of this encounter. Unless noted above in the HPI, the ROS is negative. Allergies Allergen Reactions Aspirin Hives and Swelling Blotchy, GI, hives Penicillins Blotchiness tolerates cephalosporins 09/2024 Sulfa Antibiotics Hives and Swelling blotchy Outpatient Medications Prior to Visit Medication Sig Dispense Refill ascorbic acid (Vitamin C) 500 MG tablet Take 1,000 mg by mouth daily. Calcium Carbonate (CALCIUM 600 PO) Take 1 tablet by mouth daily. cholecalciferol (Vitamin D3) 25 MCG (1000 UT) tablet Take 5,000 Units by mouth daily. 125mcg Continuous Glucose Sensor (St[employer] Systems G7 Sensor) misc 1 Device as needed. Use a new sensor every 10 days. cyanocobalamin (Vitamin B-12) 1000 MCG tablet Take 2,500 mcg by mouth daily. donepezil (Aricept) 5 MG tablet Take 1 tablet (5 mg) by mouth daily. Take for 30 days and then increase to 10 mg daily next month (see other script). 30 tablet 0 Drug [place] Unifine Pentips Plus 32G X 4 MM misc use 1 (ONE) needle FOUR TIMES DAILY fenofibrate (Tricor) 54 MG tablet Take 1 tablet (54 mg) by mouth daily. 30 tablet 0 losartan (Cozaar) 25 MG tablet Take 1 tablet (25 mg) by mouth daily. 30 tablet 0 magnesium oxide (Mag-Ox) 400 (240 Mg) MG tablet Take 1 tablet (400 mg) by mouth 2 times daily. 30 tablet 0 melatonin 5 MG tablet Take 1 tablet (5 mg) by mouth Nightly. 30 tablet 0 pravastatin (Pravachol) 80 MG tablet Take 1 tablet (80 mg) by mouth in the morning. 90 tablet 1 rivaroxaban (Xarelto) 20 MG tablet TAKE 1 TABLET BY MOUTH EVERY MORNING WITH BREAKFAST 90 tablet 1 traZODone (Desyrel) 50 MG tablet Take 50 mg by mouth Nightly as needed for sleep. Patient states she takes most nights venlafaxine XR (Effexor XR) 75 MG 24 hr capsule Take 3 capsules (225 mg) by mouth daily (with breakfast). Do not crush or chew. (Patient taking differently: Take 150 mg by mouth 2 times daily. Do not crush or chew.) 90 capsule 11 donepezil (Aricept) 10 MG tablet Take 1 tablet (10 mg) by mouth daily. (Patient not taking: Reported on 02/20/2025) 90 tablet 1 glucagon (Gvoke HypoPen 2-Pack) 1 MG/0.2ML injection Inject 0.2 mL (1 mg) under the skin Once as needed for low blood sugar for up to 8 doses. 2 each 3 glucose 4 g chewable tablet Chew 4 tablets (16 g) Daily as needed for low blood sugar. 50 tablet 3 insulin aspart (NovoLOG FLEXPEN) 100 UNIT/ML pen Inject 12 Units under the skin 2 times daily (before meals). 21.6 mL 3 insulin glargine (Basaglar KwikPen) 100 UNIT/ML pen Inject 18 Units under the skin every morning. 16.2 mL 3 No facility-administered medications prior to visit. 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 Depression History of blood transfusion Hyperlipidemia Hypertension Mixed Alzheimer's and vascular dementia ([facility]) 01/21/2025 Type II or unspecified type diabetes mellitus without mention of complication, not stated as uncontrolled ([facility]) Social History Tobacco Use Smoking status: Every Day Current packs/day: 0.75 Types: Cigarettes Smokeless tobacco: Never Substance Use Topics Alcohol use: Yes Alcohol/week: 0.0 standard drinks of alcohol Past Surgical History: Procedure Laterality Date BREAST LUMPECTOMY Left BREAST LUMPECTOMY Left 2012 s/p radiation as well CATARACT EXTRACTION W/ INTRAOCULAR LENS IMPLANT Bilateral 10/2015, 12/2015 SECTION (HISTORICAL) CHOLECYSTECTOMY DILATION AND CURETTAGE OF UTERUS FEMUR FRACTURE SURGERY Right 11/30/2019 HIP ARTHROPLASTY Right 01/21/2020 conversion JOINT REPLACEMENT Bilateral ROTATOR CUFF REPAIR Right TOTAL ABDOMINAL HYSTERECTOMY Family History Problem Relation Name Age of Onset Asthma Son Thyroid disease Brother Cancer Mother Cancer Father Thyroid disease Mother Cancer Brother Asthma Son Asthma Son Objective BP 132/70 Pulse 98 Ht 5' 3" (1.6 m) Wt 161 lb (73 kg) BMI 28.52 kg/m Physical Exam Vitals reviewed. Constitutional: General: She is not in acute distress. Appearance: Normal appearance. HENT: Head: Normocephalic and atraumatic. Nose: Nose normal. Pulmonary: Effort: Pulmonary effort is normal. Skin: General: Skin is warm and dry. Neurological: General: No focal deficit present. Mental Status: She is alert and oriented to person, place, and time. Psychiatric: Mood and Affect: Mood normal. Behavior: Behavior normal. Thought Content: Thought content normal. Judgment: Judgment normal. Data Reviewed and Summarized Labs: Lab Results Component Value Date HGBA1C 10.3 (H) 01/14/2025 Lab Results Component Value Date CHOL 212 (H) 01/14/2025 CHOL 187 07/01/2022 CHOL 207 (A) 06/09/2020 Lab Results Component Value Date TRIG 371 (H) 01/14/2025 TRIG 449 (H) 07/01/2022 TRIG 204 (A) 06/09/2020 Lab Results Component Value Date HDL 40 (L) 01/14/2025 HDL 33 (L) 07/01/2022 HDL 38 (L) 06/09/2020 Lab Results Component Value Date LDL 128 (A) 06/09/2020 LDLCALC 98 01/14/2025 LDLCALC 07/01/2022 Comment: Calculated LDL invalid, triglycerides >400 mg/dl Lab Results Component Value Date EGFR 47.2 (L) 01/14/2025 EGFR 77.2 10/22/2024 EGFR 79.6 10/20/2024 Lab Results Component Value Date MICROALBCREA 57.0 (H) 07/01/2022 Lab Results Component Value Date TSH 2.07 10/21/2024 Lab Results Component Value Date [id number] 912 (H) 10/21/2024 Electronically signed by John Cruz PA-C Portions of the information within this encounter were entered using an electronic dictation system. Best attempts were made to edit/proofread the information prior to note completion. Despite the review of information, some errors may remain. If there are questions related to the information contained within the note please contact the signing physician directly. documented in this encounter [facility] 02-20-2025 Instructions John Cruz PA-C - 02/20/2025 2:00 PM EDT - Increase Basaglar 24 units qhs - Resume Novolog 12 units 2 times daily before meals documented in this encounter [facility] 01-21-2025 History of Present illness Narrative Images from the original note were not included. [facility] [address] [facility] [address] Dept: [phone] Dept Loc: [phone] Visit type: [facility] Family Summary Conference Reason for Visit: Memory Loss Visit Date: 01/21/25 Assessment and Plan 1. Mixed Alzheimer's and vascular dementia (HCC) 2. Depression, unspecified depression type We reviewed the diagnosis of mild to moderate stage Mixed Alzheimer's and Vascular Dementia, course, prognosis and treatment. Alzheimer's biomarkers pending. Discussed the option of medication. Opted to start donepezil (Aricept) 5 mg once a day to slow down memory loss. Take it with breakfast to lessen the side effects of nausea and diarrhea. In one month increase the dose to 10 mg once a day. Call if any problems with this medication.. HR 80 today. Reviewed management of the following behavioral symptoms: depression and indifference/social withdrawal Discussed safety management: using a pill box, automated pill dispenser, and increased supervision Discussed concern for uncontrolled DM and management of insulin. Will be having an endocrinology follow up. Reviewed the importance of caregiver stress and support through following means: Alzheimer's Association support and Adult Day Program Reviewed advanced care plan. DNRCCA form completed by palliative care today. Educational information and handouts on the above was provided to the caregiver. Discussed adding Melatonin 3mg at night as needed to help with sleep. On Venlafaxine for mood. Follow up in about 6 months (around 07/24/2025) for cognitive surveillance and support. Subjective Beverly Agee is a 79 y.o. female who returns today for a Family Summary Conference to review the care plan based on the comprehensive geriatric assessment completed at the last appointment. Initial appointment 12/31/24: -MoCA 13 MIS 5 Clock 1 PHQ-9 1 -Mental status change with cognitive deficits in the following areas: short term memory, executive functions, visuospatial function, language, attention, and orientation which have been slowly progressive over time with subsequent impairment in function. History and exam are concerning for Mild to moderate stage unspecified dementia. Concern depression also contributing. Have ordered labs and brain MRI to complete the assessment. Will review results at the Family Summary Conference. -Discussed increasing supervision of medications. Recommend automatic alarmed dispenser. Concern for insulin management. -Currently on Venlafaxine for mood. Usually forgets to take evening dose. Discussed with son that patient can take second dose in afternoon/dinner especially if son is usually visiting at that time. Nighttime dosing can affect sleep. Recommend Adult Day programs to improve socialization. -Son interested in additional help at home. Social work reviewed private duty help and Adult Day programs. Patient update: No ER, PCP visits. No med changes. She is taking Venlafaxine only in the morning. She is taking total of 150mg daily. Seen by Palliative care today. Code status reviewed and DNRCCA signed. 01/14/25 A1C 10.3 Na 133 K 5.2 BUN 18 creat 1.19 Allergies[1] Current Medications[2] Medical History[3] Social History Tobacco Use Smoking status: Every Day Current packs/day: 0.75 Types: Cigarettes Smokeless tobacco: Never Substance Use Topics Alcohol use: Yes Alcohol/week: 0.0 standard drinks of alcohol Surgical History[4] Family History[5] Family Status Relation Name Status Son Alive Brother Mother Father Brother Son Alive Son Alive Sister No partnership data on file Objective Wt Readings from Last 3 Encounters: 01/21/25 173 lb 6.4 oz (78.7 kg) 01/21/25 170 lb (77.1 kg) 12/31/24 171 lb 12.8 oz (77.9 kg) No physical exam performed Discussion only Data Reviewed and Summarized Problems and recommendations from initial assessment reviewed, Medications reviewed, Recent laboratory tests reviewed, and Recent diagnostic imaging reviewed Labs: Lab Results Component Value Date WBC 9.1 10/22/2024 HGB 13.8 10/22/2024 HCT 39.9 10/22/2024 MCV 85.6 10/22/2024 PLT 214 10/22/2024 Lab Results Component Value Date NA 133 (L) 01/14/2025 K 5.2 (H) 01/14/2025 CL 98 01/14/2025 CO2 27 01/14/2025 BUN 18 01/14/2025 CREATININE 1.19 (H) 01/14/2025 GLUCOSE 519 (HH) 01/14/2025 CALCIUM 10.0 01/14/2025 PROT 6.7 01/14/2025 BILITOT 0.3 01/14/2025 ALKPHOS 63 01/14/2025 AST 18 01/14/2025 ALT 14 01/14/2025 Lab Results Component Value Date TSH 2.07 10/21/2024 No results found for: "FOLATE" Lab Results Component Value Date [id number] 912 (H) 10/21/2024 No results found for: "RPR" Imaging: Brain MRI reviewed EXAM: MR Head Without Intravenous Contrast CLINICAL INDICATION: Mental status change, unknown cause. Cognitive impairment with memory loss. History of prior stroke. TECHNIQUE: Magnetic resonance images of the head/brain without intravenous contrast in multiple planes. COMPARISON: Several prior studies including brain MRI 08/26/2016. FINDINGS: Limitations: Mild motion artifact on a few sequences. Brain and extra-axial spaces: Moderate degree of diffuse parenchymal volume loss. No extra-axial fluid collection. No restricted diffusion. Mild degree of nonspecific T2/FLAIR hyperintense signal in the periventricular and subcortical white matter and to lesser extent within the meme. Subtle encephalomalacia/gliosis medial right temporal lobe/hippocampus from remote infarct. No evidence of prior hemorrhage on susceptibility weighted sequences. Bones/joints: Within normal limits. Sinuses: Visualized portions appear fairly well aerated. Mastoid air cells: Trace fluid inferior right and left mastoid air cells, chronic. Orbits: Evidence of prior lens replacement bilaterally. Sella: Within normal limits. IMPRESSION: 1. No acute intracranial findings. 2. Mild degree of chronic small vessel ischemic change. Testing: I reviewed the [place] CognitiveAssessment from the initial assessment with the patient and family. Total score was 13 out of 30. I spent total time of 45 minutes face to face with the patient and/or family discussing the diagnosis and importance of compliance with the treatment plan as well as documenting on the day of the visit. In addition, that total time includes the following (this does not include the time spent in Advanced Care Planning which, if done, was documented elsewhere in the note): -Reviewing previous notes, -Reviewing labs, -Reviewing previous cognitive tests, -Obtaining and/or reviewing separately obtained history, -Ordering prescription medications, tests and procedures, -Communicating results to the patient/family/caregiver, -Counseling/educating the patient/family/caregiver, and -Documenting clinical information in the patients electronic record [1] Allergies Allergen Reactions Aspirin Hives and Swelling Blotchy, GI, hives Penicillins Blotchiness tolerates cephalosporins 09/2024 Sulfa Antibiotics Hives and Swelling blotchy [2] Current Outpatient Medications Medication Sig Dispense Refill ascorbic acid (Vitamin C) 500 MG tablet Take 1,000 mg by mouth daily. Calcium Carbonate (CALCIUM 600 PO) Take 1 tablet by mouth daily. cholecalciferol (Vitamin D3) 25 MCG (1000 UT) tablet Take 5,000 Units by mouth daily. 125mcg Continuous Glucose Sensor (Dexcom G7 Sensor) misc 1 Device as needed. Use a new sensor every 10 days. cyanocobalamin (Vitamin B-12) 1000 MCG tablet Take 2,500 mcg by mouth daily. donepezil (Aricept) 10 MG tablet Take 1 tablet (10 mg) by mouth daily. 90 tablet 1 donepezil (Aricept) 5 MG tablet Take 1 tablet (5 mg) by mouth daily. Take for 30 days and then increase to 10 mg daily next month (see other script). 30 tablet 0 Drug [place] Unifine Pentips Plus 32G X 4 MM misc use 1 (ONE) needle FOUR TIMES DAILY fenofibrate (Tricor) 54 MG tablet Take 1 tablet (54 mg) by mouth daily. 30 tablet 0 glucagon (Gvoke HypoPen 2-Pack) 1 MG/0.2ML injection Inject 0.2 mL (1 mg) under the skin Once as needed for low blood sugar for up to 8 doses. 2 each 3 glucose 4 g chewable tablet Chew 4 tablets (16 g) Daily as needed for low blood sugar. 50 tablet 3 insulin aspart (NovoLOG FLEXPEN) 100 UNIT/ML pen Inject 12 Units under the skin 2 times daily (before meals). 21.6 mL 3 insulin glargine (Basaglar KwikPen) 100 UNIT/ML pen Inject 18 Units under the skin every morning. 16.2 mL 3 losartan (Cozaar) 25 MG tablet Take 1 tablet (25 mg) by mouth daily. 30 tablet 0 magnesium oxide (Mag-Ox) 400 (240 Mg) MG tablet Take 1 tablet (400 mg) by mouth 2 times daily. 30 tablet 0 melatonin 5 MG tablet Take 1 tablet (5 mg) by mouth Nightly. (Patient not taking: Reported on 12/31/2024) 30 tablet 0 pravastatin (Pravachol) 80 MG tablet Take 1 tablet (80 mg) by mouth in the morning. 90 tablet 1 rivaroxaban (Xarelto) 20 MG tablet TAKE 1 TABLET BY MOUTH EVERY MORNING WITH BREAKFAST 90 tablet 1 traZODone (Desyrel) 50 MG tablet Take 50 mg by mouth Nightly as needed for sleep. Patient states she takes most nights venlafaxine XR (Effexor XR) 75 MG 24 hr capsule Take 3 capsules (225 mg) by mouth daily (with breakfast). Do not crush or chew. (Patient taking differently: Take 150 mg by mouth 2 times daily. Do not crush or chew.) 90 capsule 11 No current facility-administered medications for this visit. 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 Depression History of blood transfusion Hyperlipidemia Hypertension Mixed Alzheimer's and vascular dementia (HCC) 01/21/2025 Type II or unspecified type diabetes mellitus without mention of complication, not stated as uncontrolled ([facility]) [4] Past Surgical History: Procedure Laterality Date BREAST LUMPECTOMY Left BREAST LUMPECTOMY Left 2012 s/p radiation as well CATARACT EXTRACTION W/ INTRAOCULAR LENS IMPLANT Bilateral 10/2015, 12/2015 SECTION (HISTORICAL) CHOLECYSTECTOMY DILATION AND CURETTAGE OF UTERUS FEMUR FRACTURE SURGERY Right 11/30/2019 HIP ARTHROPLASTY Right 01/21/2020 conversion JOINT REPLACEMENT Bilateral ROTATOR CUFF REPAIR Right TOTAL ABDOMINAL HYSTERECTOMY [5] Family History Problem Relation Name Age of Onset Asthma Son Thyroid disease Brother Cancer Mother Cancer Father Thyroid disease Mother Cancer Brother Asthma Son Asthma Son Interval history since last appointment: Any visits to primary care provider? No Any visits to the emergency department/hospital? No Any medication changes? No Any falls? No Present for visit: patient, sohail Barger Educational Materials reviewed/provided at visit: Memory/Cognitive Ability Next Steps After an Alzheimer's Diagnosis Memory Tips (moderate to severe) 5Ms Dealing with Dementia Stages of Memory Loss 10 Ways to Love Your Brain Exercise/Activities Dementia exercise tips Activities/Reminiscence guide Communication/Behaviors Communication - All Stages Communication Tips Redirecting Confabulation Therapeutic Fibbing Apathy Caregiver Stress Coping Techniques for Caregiver Stress Self Care for Caregivers Home Care/Facility Options (gave at initial visit) Adult Day Center list Home Care Agency list Diet Healthy Nutrition for Older Adults - [facility] Injury Prevention/Home Safety [facility] Home Safety Checklist [facility] Mobility for Adults Falls Prevention Conversation Guide for Caregivers Medications Medication Safety/Dispensers Sleep Getting a Good Night's Sleep ([facility]) Personal Care Personal Care Tips Bathing Tips documented in this encounter [facility] 01-21-2025 Instructions RADHA Mosqueda CNP - 01/21/2025 2:00 PM EDT You have a memory loss which appears to affect your function. This is called dementia. You are in the early moderate stage. It is important that your family monitors your finances, medication, meals, and doctor appointments. We will follow you every 6 months to monitor this. We recommend continued physical activity, social interaction, mental stimulation and a healthy balanced diet. In patients with memory impairment, any illness, surgery or hospitalization can make confusion worse. Some over the counter medications, especially, Benadryl (diphenhydramine) can worsen confusion. Avoid over the counter sleep aides which often contain diphenhydramine. You can take Melatonin 3 mg at night for sleep. Recommend taking a FPC product such as Nature Made. Start donepezil (Aricept) 5 mg once a day to slow down memory loss. Most common side effects are nausea and diarrhea. In one month increase the dose to 10 mg once a day. Call if any problems with this medication. documented in this encounter [facility] 01-21-2025 History of Present illness Narrative What is the most important item you want to discuss with your provider today? Son states pt lives at home alone. See's [facility] Burch for long term. Would like to discuss home caregivers who they would need to set that up through. Son visits every day after work to help pt with her medications. Not in any pain but has a really hard time sleeping. Pt has diarrhea as well. Complete med rec line by line. Yes Do you need refills on any medications today? No Pharmacy confirmed in Med management section. Yes Images from the original note were not included. [facility] [address] [place], [place] [id number] Visit type: new patient, consultation Reason for Visit: Beverly Agee is a 79 y.o. female with chief complaint of Fatigue and Depression Assessment and Plan Beverly was seen today for fatigue and depression. Diagnoses and all orders for this visit: Memory impairment (Primary)- [facility] She denies depression- but states feels lonely and isolated at times. Charbel notes possible need for more support during day time help with med administration and insulin and meal times. Discussed possible day-programs or use of [facility] for aide support vs private pay. Palliative care encounter- Reviewed advanced care planning, reviewed dnr-cca code status and completed dnr [facility] [place] dnr form, printed and gave a copy to patient. No orders of the defined types were placed in this encounter. Manuel Paul is a 79 year old with memory impairment, short term and diabetes. Notes follows with [facility]. Denies any other changes. Denies any other symptoms. Charbel notes that she needs some help at home, interested in home health aide. Pain 0 Sandoval Symptom Assessment Score Sandoval Symptom Assessment System Pain Score: 1 Tiredness Score: 8 Nausea Score: 1 Depression Score: 5 Anxiety Score: 2 Drowsiness Score: 6 Appetite Score: 1 Wellbeing Score: 7 Dyspnea Score: 1 Other Problem Score: 1 Assessed by:patient Review of Systems PCP: NENO IQBAL MD Goals of care: Live Longer, extend life as much as possible Code status: DNR Comfort Care Arrest Advance directives: Health Care Proxy, Living Will Surrogate: ANGEL and sohail Barger Prognosis: uncertain at this time Spiritual assessment: No spiritual distress identified Bereavement and grief: Grief Issues Not Identified Social history: Marital status: Children: sohail Barger Living status: with family Objective Vitals: 01/21/25 1140 BP: 127/71 BP Location: Left arm Patient Position: Sitting BP Cuff Size: Adult Pulse: 75 Resp: 12 Temp: (!) 35.7 C (96.3 F) TempSrc: Temporal SpO2: 97% Weight: 170 lb (77.1 kg) Height: 5' 3" (1.6 m) Physical Exam Vitals reviewed. Constitutional: Appearance: Normal appearance. She is normal weight. HENT: Mouth/Throat: Mouth: Mucous membranes are moist. Eyes: General: No scleral icterus. Extraocular Movements: Extraocular movements intact. Pupils: Pupils are equal, round, and reactive to light. Cardiovascular: Rate and Rhythm: Normal rate and regular rhythm. Pulses: Normal pulses. Pulmonary: Effort: Pulmonary effort is normal. Breath sounds: Normal breath sounds. No wheezing or rales. Abdominal: General: Abdomen is flat. There is no distension. Tenderness: There is no abdominal tenderness. Musculoskeletal: General: Normal range of motion. Right lower leg: No edema. Left lower leg: No edema. Skin: General: Skin is warm. Coloration: Skin is pale. Findings: No rash. Neurological: General: No focal deficit present. Mental Status: She is alert and oriented to person, place, and time. Cranial Nerves: No cranial nerve deficit. Psychiatric: Mood and Affect: Mood normal. ECOG: ECOG : 1 - Restricted in physically strenuous activity but ambulatory and able to carry out work of a light or sedentary nature, e.g., light house work, office work PPS:70 Data Reviewed and Summarized Opiate Prescribing OARRS was reviewed and is supportive of the care plan. Controlled Substance Agreement Form completed in past 12 months: yes [place]ARRS Report Review: Report reviewed Opiate Risk Assessment Tool SOAPP given yes SOAPP score: <7, low risk Red Flags for Abuse or Diversion: None Identified Results/Verification of Data Review Objective data reviewed: Labs: Lab Results Component Value Date WBC 9.1 10/22/2024 HGB 13.8 10/22/2024 HCT 39.9 10/22/2024 MCV 85.6 10/22/2024 PLT 214 10/22/2024 Lab Results Component Value Date NA 133 (L) 01/14/2025 K 5.2 (H) 01/14/2025 CL 98 01/14/2025 CO2 27 01/14/2025 BUN 18 01/14/2025 CREATININE 1.19 (H) 01/14/2025 GLUCOSE 519 (HH) 01/14/2025 CALCIUM 10.0 01/14/2025 PROT 6.7 01/14/2025 BILITOT 0.3 01/14/2025 ALKPHOS 63 01/14/2025 AST 18 01/14/2025 ALT 14 01/14/2025 No results found for: "PSA", "CEA", "CA125", "[id number]", "CA199" documented in this encounter [facility] 01-21-2025 History of Present illness Narrative What is the most important item you want to discuss with your provider today? Son states pt lives at home alone. See's [facility] Burch for long term. Would like to discuss home caregivers who they would need to set that up through. Son visits every day after work to help pt with her medications. Not in any pain but has a really hard time sleeping. Pt has diarrhea as well. Complete med rec line by line. Yes Do you need refills on any medications today? No Pharmacy confirmed in Med management section. Yes Images from the original note were not included. [facility] [address] [place] [address] Visit type: new patient, consultation Reason for Visit: Beverly Agee is a 79 y.o. female with chief complaint of Fatigue and Depression Assessment and Plan Beverly was seen today for fatigue and depression. Diagnoses and all orders for this visit: Memory impairment (Primary)- Follows with [facility], Agueda B[facility]. She denies depression- but states feels lonely and isolated at times. Charbel notes possible need for more support during day time help with med administration and insulin and meal times. Discussed possible day-programs or use of [facility] home for aide support vs private pay. Palliative care encounter- Reviewed advanced care planning, reviewed dnr-cca code status and completed dnr [place] [place] d[place] form, printed and gave a copy to patient. Time in: 11:20 Time out: 12:00pm No orders of the defined types were placed in this encounter. Subjective Beverly is a 79 year old with memory impairment, short term and diabetes. Notes follows with [facility]. Denies any other changes. Denies any other symptoms. Charbel notes that she needs some help at home, interested in home health aide. Pain 0 Sandoval Symptom Assessment Score Sandoval Symptom Assessment System Pain Score: 1 Tiredness Score: 8 Nausea Score: 1 Depression Score: 5 Anxiety Score: 2 Drowsiness Score: 6 Appetite Score: 1 Wellbeing Score: 7 Dyspnea Score: 1 Other Problem Score: 1 Assessed by:patient Review of Systems PCP: NENO IQBAL MD Goals of care: Live Longer, extend life as much as possible Code status: DNR Comfort Care Arrest Advance directives: Health Care Proxy, Living Will Surrogate: HCPOA and son Charbel Prognosis: uncertain at this time Spiritual assessment: No spiritual distress identified Bereavement and grief: Grief Issues Not Identified Social history: Marital status: Children: son Charbel Living status: with family Objective Vitals: 01/21/25 1140 BP: 127/71 BP Location: Left arm Patient Position: Sitting BP Cuff Size: Adult Pulse: 75 Resp: 12 Temp: (!) 35.7 C (96.3 F) TempSrc: Temporal SpO2: 97% Weight: 170 lb (77.1 kg) Height: 5' 3" (1.6 m) Physical Exam Vitals reviewed. Constitutional: Appearance: Normal appearance. She is normal weight. HENT: Mouth/Throat: Mouth: Mucous membranes are moist. Eyes: General: No scleral icterus. Extraocular Movements: Extraocular movements intact. Pupils: Pupils are equal, round, and reactive to light. Cardiovascular: Rate and Rhythm: Normal rate and regular rhythm. Pulses: Normal pulses. Pulmonary: Effort: Pulmonary effort is normal. Breath sounds: Normal breath sounds. No wheezing or rales. Abdominal: General: Abdomen is flat. There is no distension. Tenderness: There is no abdominal tenderness. Musculoskeletal: General: Normal range of motion. Right lower leg: No edema. Left lower leg: No edema. Skin: General: Skin is warm. Coloration: Skin is pale. Findings: No rash. Neurological: General: No focal deficit present. Mental Status: She is alert and oriented to person, place, and time. Cranial Nerves: No cranial nerve deficit. Psychiatric: Mood and Affect: Mood normal. ECOG: ECOG : 1 - Restricted in physically strenuous activity but ambulatory and able to carry out work of a light or sedentary nature, e.g., light house work, office work PPS:70 Data Reviewed and Summarized Opiate Prescribing OARRS was reviewed and is supportive of the care plan. Controlled Substance Agreement Form completed in past 12 months: yes OARRS Report Review: Report reviewed Opiate Risk Assessment Tool SOAPP given yes SOAPP score: <7, low risk Red Flags for Abuse or Diversion: None Identified Results/Verification of Data Review Objective data reviewed: Labs: Lab Results Component Value Date WBC 9.1 10/22/2024 HGB 13.8 10/22/2024 HCT 39.9 10/22/2024 MCV 85.6 10/22/2024 PLT 214 10/22/2024 Lab Results Component Value Date NA 133 (L) 01/14/2025 K 5.2 (H) 01/14/2025 CL 98 01/14/2025 CO2 27 01/14/2025 BUN 18 01/14/2025 CREATININE 1.19 (H) 01/14/2025 GLUCOSE 519 (HH) 01/14/2025 CALCIUM 10.0 01/14/2025 PROT 6.7 01/14/2025 BILITOT 0.3 01/14/2025 ALKPHOS 63 01/14/2025 AST 18 01/14/2025 ALT 14 01/14/2025 No results found for: "PSA", "CEA", "CA125", "[id number]", "CA199" documented in this encounter [facility] 01-14-2025 Telephone encounter Note Called pts sohail Barger. He verified that she has not been taking her insulin and said that they are looking to get her in palliative care. He said he will be helping her until then. [facility] 01-14-2025 Miscellaneous Notes Called pts sohail Barger. He verified that she has not been taking her insulin and said that they are looking to get her in palliative care. He said he will be helping her until then. See dexcom download in media tab S: Gisell from [facility] lab called the clinical access center with complaint of Critical Lab - glucose high B: Ongoing high glucose 519 today just resulted. A1C 10.3. A: Patient this was drawn today 01/14/25. R: teams messaged Elena Avilesz she stated "looks like her hgba1c is 10.3 so always high. I think she has a CGM so will pull report and send to provider" Message to the office for review by the provider and needs recommendation from Provider for treatment going forward. Reason for Disposition Lab or radiology calling with CRITICAL test results Protocols used: PCP Call - No [id number] documented in this encounter [facility] 01-14-2025 Telephone encounter Note See dexcom download in media tab [facility] 01-14-2025 Telephone encounter Note S: Gisell from [facility] lab called the clinical access center with complaint of Critical Lab - glucose high B: Ongoing high glucose 519 today just resulted. A1C 10.3. A: Patient this was drawn today 01/14/25. R: teams messaged Elena Avilesz she stated "looks like her hgba1c is 10.3 so always high. I think she has a CGM so will pull report and send to provider" Message to the office for review by the provider and needs recommendation from Provider for treatment going forward. Reason for Disposition Lab or radiology calling with CRITICAL test results Protocols used: PCP Call - No [id number] [facility] 12-31-2024 History of Present illness Narrative Images from the original note were not included. [address] [facility] [address] Dept: [phone] Dept Loc: [phone] Visit type: [facility] Follow up Visit Date: 12/31/24 Reason for Visit: Memory Loss Assessment and Plan 1. Memory loss - Beta Amyloid 42/40 Ratio, AD-Detect ([facility]) - Phosphorylated [id number]), Plasma - MR brain wo contrast 2. Cognitive impairment - [facility] - Beta Amyloid 42/40 Ratio, AD-Detect ([facility]) - Phosphorylated [id number]), Plasma - MR brain wo contrast 3. Depression, unspecified depression type - Mental status change with cognitive deficits in the following areas: short term memory, executive functions, visuospatial function, language, attention, and orientation which have been slowly progressive over time with subsequent impairment in function. History and exam are concerning for Mild to moderate stage unspecified dementia. Concern depression also contributing. Have ordered labs and brain MRI to complete the assessment. Will review results at the Family Summary Conference. -Discussed increasing supervision of medications. Recommend automatic alarmed dispenser. Concern for insulin management. -Currently on Venlafaxine for mood. Usually forgets to take evening dose. Discussed with son that patient can take second dose in afternoon/dinner especially if son is usually visiting at that time. Nighttime dosing can affect sleep. Recommend Adult Day programs to improve socialization. -Son interested in additional help at home. Social work reviewed private duty help and Adult Day programs. Follow up in about 4 weeks (around 01/28/2025) for Family Summary Conference. Subjective HPI: Beverly Agee is a 79 y.o. female who presents to the [facility] for a comprehensive geriatric assessment. The patient is new to me but seen by the Geriatric Inpatient Consult team. PMH of arthritis, atrial fibrillation, breast cancer, stroke, depression, HLD, HTN, DM Followed by geriatrics inpatient team during November 2023 hospitalization and Sep 2024 hospitalization. November 2023 - hospitalized for fall sustaining rib fractures and hemothorax. Concern for memory loss and cognitive decline since stroke in 2016. Recommended outpatient [facility] follow up. Concern for polypharmacy. Noted she was no longer taking Mirtazapine. Agreed with slower reduction of venlafaxine and change of night dose to afternoon to prevent effect on sleep. On high dose weekly Vit D replacement. Sep 2024 - hospitalized for hypoglycemia and UTI. A1C 10.8. Family has been assisting with insulin. Recommended increased supervision with medications. She did have some delirium during that stay. Chart review: -Follows with [facility] History obtained from caregiver(s): sohail [place] Memory "terrible" Short term memory loss: Examples of difficulties patient is experiencing: alf memory is good. Poor short term memory. Son concerned for dementia. Had more confusion while in rehab. Not as anxious when home. Gets coffee herself. Microwaves. She has melted a plastic coffee pot. Son disconnected stove. She is by herself during the day. Have a camera. She may have doubled dose of insulin. Forgets she took it. Son sets up medications. Forgetting nighttime meds. Son calls to remind her. Takes Venlafaxine BID, Magnesium BID - may be missing the second doses. Severity (as seen by the provider based on caregiver history): moderate, Duration- symptoms started 2 years, worse since rib fractures. , Timing- slowly progressive, all day everyday, no difference whether morning or night, cognitive changes are stable day to day, Context- (give details of any "yes" answers) *history of stroke- Yes - stroke several years. Did not notice changes after this initially , *history of head trauma- No (may have - has fallen off toilet or her chair) *history of seizures- No, *history of hospitalization or surgery that made memory worse- Yes - increased confusion *History of cancer? - Yes - breast cancer had chemotherapy and lump removed *Hearing Loss? - Yes - may have some *Hearing Aids? -no Associated signs and symptoms- *delusions or hallucinations- No not usually. When in rehab thought son was her . *paranoia- Yes - always afraid of dark. Poor sleep. Afraid of being alone. 2013. *Trouble sleeping? Yes - May not go to bed until 3 or 4 am and sleeps late. Takes naps. *Any over the counter sleep or allergy medications? No *Symptoms of REM-related sleep disorder- Does he/she appear to "act out their dreams" while sleeping (punch or flail arms, shout or scream? no Minor falls over past year. If workup results in a diagnosis of dementia/Alzheimer's, do you have any concerns about your loved one hearing this diagnosis?" No Mood: She enjoyed socialization while at rehab. Feel she has bouts of depression. Mobility: not very active at home. Sits in chair mostly at home. History obtained from patient: Smokes daily, maybe half a pack. Memory loss: "not great". Son puts medications in pill box. Takes insulin different times of the day. Mood: occasionally feels depressed/sad or anxious. "Does not get stuck on it". Watches TV - likes [employer] shows. Mobility: uses a walker. Fall in bathroom a month ago. Squad came to assist. Sleep: good. Hearing Screen: HHIE-S: Able to identify --: yes Current events: no Current President? "Blond hair alyson my age" Reviewed progress notes completed by [facility])and social work. Son is there 5-6 times a week. He is HCPOA. Cleaning service once a month. Has Life alert. Son cues for showers. Wears nightgowns often but will change. Wears depends - manages on her own. Has a cell phone, occasionally calls son but no one else. She will answer the phone. Son sets up all appointments. Son does laundry, she helps with dishes. Allergies Allergen Reactions Aspirin Hives and Swelling Blotchy, GI, hives Penicillins Blotchiness tolerates cephalosporins 09/2024 Sulfa Antibiotics Hives and Swelling blotchy Current Outpatient Medications Medication Sig Dispense Refill ascorbic acid (Vitamin C) 500 MG tablet Take 1,000 mg by mouth daily. Calcium Carbonate (CALCIUM 600 PO) Take 1 tablet by mouth daily. Continuous Glucose Sensor (Dexcom G7 Sensor) misc 1 Device as needed. Use a new sensor every 10 days. cyanocobalamin (Vitamin B-12) 1000 MCG tablet Take 2,500 mcg by mouth daily. Drug [place] Unifine Pentips Plus 32G X 4 MM misc use 1 (ONE) needle FOUR TIMES DAILY insulin aspart (NovoLOG FLEXPEN) 100 UNIT/ML pen Inject 12 Units under the skin 2 times daily (before meals). 21.6 mL 3 insulin glargine (Basaglar KwikPen) 100 UNIT/ML pen Inject 18 Units under the skin every morning. 16.2 mL 3 magnesium oxide (Mag-Ox) 400 (240 Mg) MG tablet Take 1 tablet (400 mg) by mouth 2 times daily. 30 tablet 0 pravastatin (Pravachol) 80 MG tablet Take 1 tablet (80 mg) by mouth in the morning. 90 tablet 1 rivaroxaban (Xarelto) 20 MG tablet TAKE 1 TABLET BY MOUTH EVERY MORNING WITH BREAKFAST 90 tablet 1 traZODone (Desyrel) 50 MG tablet Take 50 mg by mouth Nightly as needed for sleep. Patient states she takes most nights venlafaxine XR (Effexor XR) 75 MG 24 hr capsule Take 3 capsules (225 mg) by mouth daily (with breakfast). Do not crush or chew. (Patient taking differently: Take 150 mg by mouth 2 times daily. Do not crush or chew.) 90 capsule 11 cholecalciferol (Vitamin D3) 25 MCG (1000 UT) tablet Take 5,000 Units by mouth daily. 125mcg fenofibrate (Tricor) 54 MG tablet Take 1 tablet (54 mg) by mouth daily. 30 tablet 0 glucagon (Gvoke HypoPen 2-Pack) 1 MG/0.2ML injection Inject 0.2 mL (1 mg) under the skin Once as needed for low blood sugar for up to 8 doses. 2 each 3 glucose 4 g chewable tablet Chew 4 tablets (16 g) Daily as needed for low blood sugar. 50 tablet 3 losartan (Cozaar) 25 MG tablet Take 1 tablet (25 mg) by mouth daily. 30 tablet 0 melatonin 5 MG tablet Take 1 tablet (5 mg) by mouth Nightly. (Patient not taking: Reported on 12/31/2024) 30 tablet 0 No current facility-administered medications for this visit. 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 Depression History of blood transfusion Hyperlipidemia Hypertension Type II or unspecified type diabetes mellitus without mention of complication, not stated as uncontrolled (HCC) Social History Tobacco Use Smoking status: Every Day Current packs/day: 0.75 Types: Cigarettes Smokeless tobacco: Never Substance Use Topics Alcohol use: Yes Alcohol/week: 0.0 standard drinks of alcohol Past Surgical History: Procedure Laterality Date BREAST LUMPECTOMY Left BREAST LUMPECTOMY Left 2012 s/p radiation as well CATARACT EXTRACTION W/ INTRAOCULAR LENS IMPLANT Bilateral 10/2015, 12/2015 SECTION (HISTORICAL) CHOLECYSTECTOMY DILATION AND CURETTAGE OF UTERUS FEMUR FRACTURE SURGERY Right 11/30/2019 HIP ARTHROPLASTY Right 01/21/2020 conversion JOINT REPLACEMENT Bilateral ROTATOR CUFF REPAIR Right TOTAL ABDOMINAL HYSTERECTOMY Family History Problem Relation Name Age of Onset Asthma Son Thyroid disease Brother Cancer Mother Cancer Father Thyroid disease Mother Cancer Brother Asthma Son Asthma Son Family Status Relation Name Status Son Alive Brother Mother Father Brother Son Alive Son Alive Sister No partnership data on file Objective Vitals: 12/31/24 1449 12/31/24 1450 BP: 113/69 99/62 BP Location: Right arm Right arm Patient Position: Sitting Standing BP Cuff Size: Adult long Adult long Pulse: 92 106 Weight: 171 lb 12.8 oz (77.9 kg) Wt Readings from Last 3 Encounters: 12/31/24 171 lb 12.8 oz (77.9 kg) 11/20/24 174 lb 6.4 oz (79.1 kg) 10/18/24 178 lb 4.8 oz (80.9 kg) Physical Exam Vitals reviewed. HENT: Head: Normocephalic and atraumatic. Cardiovascular: Rate and Rhythm: Normal rate and regular rhythm. Pulmonary: Effort: Pulmonary effort is normal. No respiratory distress. Breath sounds: Normal breath sounds. Abdominal: General: Bowel sounds are normal. There is no distension. Palpations: Abdomen is soft. Tenderness: There is no abdominal tenderness. Musculoskeletal: Right lower leg: No edema. Left lower leg: No edema. Neurological: Mental Status: She is alert. Motor: No tremor. Comments: No rigidity Psychiatric: Mood and Affect: Mood normal. Behavior: Behavior is cooperative. Cognition and Memory: Cognition is impaired. Memory is impaired. Data Reviewed and Summarized Old records reviewed and summarized here: labs as recorded below and CT head- see below Labs: Lab Results Component Value Date WBC 9.1 10/22/2024 HGB 13.8 10/22/2024 HCT 39.9 10/22/2024 MCV 85.6 10/22/2024 PLT 214 10/22/2024 Lab Results Component Value Date NA 135 (L) 10/22/2024 K 3.9 10/22/2024 CL 107 10/22/2024 CO2 23 10/22/2024 BUN 15 10/22/2024 CREATININE 0.79 10/22/2024 GLUCOSE 189 (H) 10/22/2024 CALCIUM 9.6 10/22/2024 PROT 5.9 (L) 10/19/2024 BILITOT 0.3 10/19/2024 ALKPHOS 43 10/19/2024 AST 19 10/19/2024 ALT 7 10/19/2024 Lab Results Component Value Date TSH 2.07 10/21/2024 No results found for: "FOLATE" Lab Results Component Value Date [id number] 912 (H) 10/21/2024 No results found for: "RPR" CT head 10/18/24: CT HEAD WITHOUT CONTRAST CLINICAL HISTORY: possible fall COMPARISON: 11/29/2019 TECHNIQUE: Helical CT of the brain without contrast. Dose reduction was employed with automated exposure control. FINDINGS: Acute Findings: No hemorrhage, mass, or infarct. Chronic Changes: Scattered patchy foci of white matter hypoattenuation, most likely mild chronic microvascular ischemic changes. Ventricles and sulci: Moderate generalized brain parenchymal volume loss with proportionate ventricular enlargement. Other: The skull, included paranasal sinuses and orbits are normal. IMPRESSION: No intracranial traumatic injuries. Testing: The following tests were performed at today's visit and scanned in to the chart: MoCA score: 13, MIS score: 5 Clock drawing score: 1 PHQ-9 score: 1 KELLIE score: not done I independently reviewed the [place] Cognitive Assessment from 01/07/2025. Test scanned in to the chart. I spent total time of 60 minutes face to face with the patient and/or family discussing the diagnosis and importance of compliance with the treatment plan as well as documenting on the day of the visit. In addition, that total time includes the following: -Reviewing previous notes, -Reviewing labs, -Obtaining and/or reviewing separately obtained history, -Ordering prescription medications, tests and procedures, -Communicating results to the patient/family/caregiver, -Counseling/educating the patient/family/caregiver, -Documenting clinical information in the patients electronic record, -Coordination of care for the patient, and -Performing a medically appropriate exam and/or evaluation Review of Systems Constitutional: Positive for appetite change and fatigue. Negative for unexpected weight change. HENT: Negative for dental problem, hearing loss and trouble swallowing. Eyes: Negative for visual disturbance. Gastrointestinal: Negative for constipation and diarrhea. Genitourinary: Negative for difficulty urinating and dysuria. Musculoskeletal: Positive for arthralgias and gait problem. Negative for back pain. Neurological: Positive for weakness. Negative for tremors and speech difficulty. Psychiatric/Behavioral: Positive for confusion, dysphoric mood and sleep disturbance. Negative for agitation and hallucinations. The patient is not nervous/anxious. Senior Services/Geriatrics Social History Present at visit: patient, sohail Medellin Marital status: in 2013 Children: 3 children (3 local, only 1 really involved) Living arrangement: alone, own home Household safety problems: has had a few falls, one time son had to call fire dept to help get up, was using stove to heat up coffee pot so now son unplugged stove Concerning Behaviors: Delusions- thinking parents were sill alive, was confusing son for other people Wandering potential: No Pets: No Guns in the home: None Elder abuse: No/Denied Concerns Alcohol/Tobacco/Marijuana/Drug Use History: smoking since middle school service: Neither pt or spouse/partner Highest level of education: 2 years college Occupation: homemaker Activities: watches tv, sits and sleeps in a chair 22-24 hours per day Exercise: none Finances: gets social security and pension, has some savings My Chart: Only son uses Healthcare Power of Director Investor Relations: Yes: sohail Dubois) Scanned in [facility] Financial Power of Director Investor Relations: Yes: sohail Dubois) Scanned in [facility] Living Will: Yes Guardian: No Code Status: DNRCC-A Primary Caregiver: sohail Medellin Current care plan/supervision: sohail Medellin sees her about 5 days per week Community resources: Yes: Lifeline, Video Monitoring, and Cleaning Service (once per month) Caregiver stressors: son feeling some stress Goals for care: evaluate memory As a Caregiver, What Matters Most to You: Patient safety >>12/31/24 Patient lives alone, needing much help with things. She has cleaning service once per month. Sohail Medellin comes in about 5 days per week. He is ordering groceries for her, reminding her to take meds, being there when she showers in case of a fall. SW talked about hiring help or using Adult Day Program to get more supervision and get patient more engaged in activities. She mostly just sits in front of the tv all day and sleeps in the same chair. SW discussed getting a plan B in place as patient continues to need more and more supervision. Functional Status (I: Independent, A: Assisted, D: Dependent) ADLs I A D Notes Bathing [] [x] [] Son has to be there when patient showers, son has to cue patient to do it twice per week Dressing [x] [] [] Changing daily, can dress herself, stays in nightclothes often Toileting [x] [] [] Has a few accidents, wears Depends, manages on her own most of the time Transfers [x] [] [] Feeding [x] [] [] No issues Ambulation [] [x] [] Uses a walker Assistive devices: Grab bars, Raised toilet seat, and Walker IADLs I A D Telephone [] [x] [] Has a cell phone, only will call son rarely, can answer the phone, son sets up appointments, patient needs multiple reminders Transportation [] [] [x] Driving safety concerns: Not currently driving Shopping [] [] [x] Son orders groceries and have them delivered Meal prep [] [x] [] Eats breakfast and dinner, may snack in between, not losing weight Housework [] [x] [] Cleaning service once per month, son does laundry, patient will do some dishes Medications [] [x] [] Forgets evening medications frequently, son calls her to remind her, still forgets even when he calls to remind her Finances [] [] [x] Son manages Educational materials will be provided at next visit: Memory/Cognitive Ability Next Steps After an Alzheimer's Diagnosis Memory Tips (moderate to severe) 5Ms Dealing with Dementia Stages of Memory Loss 10 Ways to Love Your Brain Exercise/Activities Dementia exercise tips Activities/Reminiscence guide Communication/Behaviors Communication - All Stages Communication Tips Redirecting Confabulation Therapeutic Fibbing Apathy Caregiver Stress Coping Techniques for Caregiver Stress Self Care for Caregivers Home Care/Facility Options (gave at initial visit) Adult Day Center list Home Care Agency list Diet Healthy Nutrition for Older Adults - [facility] Injury Prevention/Home Safety [facility] Home Safety Checklist [facility] Mobility for Adults Falls Prevention Conversation Guide for Caregivers Medications Medication Safety/Dispensers Sleep Getting a Good Night's Sleep ([facility]) Personal Care Personal Care Tips Bathing Tips documented in this encounter [facility] 12-31-2024 Instructions RADHA Mosqueda CNP - 12/31/2024 3:00 PM EDT We will see you in a few weeks for the Family Summary Conference. During that visit we will discuss today's findings, diagnosis, and potential treatment and support moving forward. In the meantime, please complete imaging as discussed, complete labs as discussed, and continue your current medications . Thank you for allowing me to participate in your care today. documented in this encounter [facility] 12-05-2024 Telephone encounter Note S: Zacarias from [facility] spoke with [facility] nurse regarding referral received and patient accepted B: Onset of symptoms/concern today A: Referral received and patient accepted. Requested fax number of the office. R: Advised note will be sent to office regarding call. Zacarias understands care advice. No further needs at this time. Reason for Disposition General information question, no triage required and triager able to answer question Protocols used: Information Only Call - No [id number] [facility] 12-05-2024 Miscellaneous Notes S: Zacarias from [facility] spoke with [facility] nurse regarding referral received and patient accepted B: Onset of symptoms/concern today A: Referral received and patient accepted. Requested fax number of the office. R: Advised note will be sent to office regarding call. Zacarias understands care advice. No further needs at this time. Reason for Disposition General information question, no triage required and triager able to answer question Protocols used: Information Only Call - No [id number] documented in this encounter [facility] 12-03-2024 Telephone encounter Note Spoke to Charbel. Patient has memory issues and Charbel is not with patient. Does call patient 2x day and does see patient but not always there with patient. Believes patient is taking insulin and not eating. Advised to look into getting correctional case records supervisor. Charbel has reached out to agencies but will get with PCP. Is also having testing done for dementia and alzheimers. Charbel does not believe patient is eating much and is going to hold Humalog for a day or two to see where patients readings are. Advised to keep in touch with office. Charbel agreed. [facility] 12-03-2024 Miscellaneous Notes Spoke to Charbel. Patient has memory issues and Charbel is not with patient. Does call patient 2x day and does see patient but not always there with patient. Believes patient is taking insulin and not eating. Advised to look into getting correctional case records supervisor. Charbel has reached out to agencies but will get with PCP. Is also having testing done for dementia and alzheimers. Charbel does not believe patient is eating much and is going to hold Humalog for a day or two to see where patients readings are. Advised to keep in touch with office. Charbel agreed. Name of caller: Charbel Contact phone number: [phone] Relationship to Patient: Son Provider: John Cruz PA-C Practice: [facility] Chief Complaint/Reason for Call: Charbel returned call per voicemail message and states concerns that Beverly has not been eating as much and has been taking less insulin. He is requesting a call back to discuss recommendations. Please contact Charbel and advise. Best time of day caller can be reached: Any Patient advised that office/PCP has 24-48 business hours to return their call: Yes Attempted to call patient's son Charbel with results of Dexcom download. Patient having significant hypoglycemia that she had not previously had. I do not see any change in insulin dosing from her last appointment. Asked that son return the call and clarify any changes if she increased the insulin dose otherwise recommend to decrease Basaglar to 18 units. Will wait to hear clarification of current doses. Dexcom download in media as per patient request. Please review. Thank you! Name of caller: Charbel Contact phone number: [phone] Relationship to Patient: Son Provider: Nancy BECKFORD Practice: Endo Chief Complaint/Reason for Call: Charbel states that Beverly has her dexcom on and ready for the office to DL readings Best time of day caller can be reached: Any Patient advised that office/PCP has 24-48 business hours to return their call: Yes documented in this encounter [facility] [employer] 12-03-2024 Telephone encounter Note Name of caller: Charbel Contact phone number: [phone] Relationship to Patient: Son Provider: John Cruz PA-C Practice: [facility] Chief Complaint/Reason for Call: Charbel returned call per voicemail message and states concerns that Beverly has not been eating as much and has been taking less insulin. He is requesting a call back to discuss recommendations. Please contact Charbel and advise. Best time of day caller can be reached: Any Patient advised that office/PCP has 24-48 business hours to return their call: Yes [facility] [employer] 12-03-2024 Telephone encounter Note Attempted to call patient's son Charbel with results of Dexcom download. Patient having significant hypoglycemia that she had not previously had. I do not see any change in insulin dosing from her last appointment. Asked that son return the call and clarify any changes if she increased the insulin dose otherwise recommend to decrease Basaglar to 18 units. Will wait to hear clarification of current doses. T [facility] 12-03-2024 Telephone encounter Note Dexcom download in media as per patient request. Please review. Thank you! [facility] 12-02-2024 Telephone encounter Note Name of caller: Charbel Contact phone number: [phone] Relationship to Patient: Son Provider: Nancy BECKFORD Practice: Endo Chief Complaint/Reason for Call: Charbel states that Beverly has her dexcom on and ready for the office to DL readings Best time of day caller can be reached: Any Patient advised that office/PCP has 24-48 business hours to return their call: Yes T [facility] 11-29-2024 Telephone encounter Note S: Patient's son spoke to [facility] nurse regarding sensor reading upload B: Onset of symptoms/concerns today A: Son states that he is trying to upload the readings from his mother's sensor to the office. R: Advised son that he would need to call the office on Sunday when they are open. Son verbalized understanding. Instructed son to call back with any new concerns or questions. Reason for Disposition [1] Caller requesting NON-URGENT health information AND [2] PCP's office is the best resource Protocols used: Information Only Call - No [id number] [facility] 11-29-2024 Miscellaneous Notes S: Patient's son spoke to [facility] nurse regarding sensor reading upload B: Onset of symptoms/concerns today A: Son states that he is trying to upload the readings from his mother's sensor to the office. R: Advised son that he would need to call the office on Sunday when they are open. Son verbalized understanding. Instructed son to call back with any new concerns or questions. Reason for Disposition [1] Caller requesting NON-URGENT health information AND [2] PCP's office is the best resource Protocols used: Information Only Call - No [id number] documented in this encounter [facility] 11-20-2024 History of Present illness Narrative Images from the original note were not included. [facility] [place] [id number] [address] Dept: [phone] Dept Loc: [phone] Visit type: New Patient Reason for Visit: Hospital Follow-up Assessment and Plan 1. Type 2 diabetes mellitus with hyperglycemia, with long-term current use of insulin ([facility]) - AMB POC GLUCOSE TEST - insulin glargine (Basaglar KwikPen) 100 UNIT/ML pen; Inject 24 Units under the skin every morning., Starting Cata 11/20/2024, Until Sun11/20/2025, Normal - insulin aspart (NovoLOG FLEXPEN) 100 UNIT/ML pen; Inject 12 Units under the skin 2 times daily (before meals)., Starting Cata 11/20/2024, Until Sun11/20/2025, Normal - glucose 4 g chewable tablet; Chew 4 tablets (16 g) Daily as needed for low blood sugar., Starting Cata 11/20/2024, Until Sun11/20/2025 at 2359, Normal - glucagon (Gvoke HypoPen 2-Pack) 1 MG/0.2ML injection; Inject 0.2 mL (1 mg) under the skin Once as needed for low blood sugar for up to 8 doses., Starting Cata 11/20/2024, Normal - Comprehensive metabolic panel - Hemoglobin A1c - Microalbumin / creatinine urine ratio 2. Hypertension associated with type 2 diabetes mellitus (HCC) ([facility]) 3. Hyperlipidemia associated with type 2 diabetes mellitus (HCC) ([facility]) - Lipid panel 4. Class 1 obesity with serious comorbidity and body mass index (BMI) of 31.0 to 31.9 in adult, unspecified obesity type Lab Results Component Value Date EGFR 77.2 10/22/2024 TSH 2.07 10/21/2024 CHOL 187 07/01/2022 HDL 33 (L) 07/01/2022 LDLCALC 07/01/2022 Comment: Calculated LDL invalid, triglycerides >400 mg/dl MICROALBCREA 57.0 (H) 07/01/2022 DM2 Diabetes is: poorly controlled A1C Target: 7.5% without hypoglycemia Insulin is necessary for ongoing management Lab Results Component Value Date HGBA1C 10.8 (H) 10/19/2024 HGBA1C 7.1 (H) 12/14/2023 POC glucose test: 99 Recommendations: Patient will make the following changes to regimen: - Continue Basaglar 24 units qam - Continue Novolog 12 units 2 times daily before meals Will likely need to adjust with blood glucose data- when available --> Labs to be done fasting prior to next visit; discussed holding supplements 5 days prior. --> Continue BG monitoring: via DG7 (or FSBS 4 times per day) and send in BGL in 1-2 weeks for review. --> Backup Meter: [employer] has supplies on hand --> Hypos: Glucagon and Glucose Tabs sent today and educated on use Education: Discussed with Patient: - Notification Parameters - Discussed healthy balanced diet and exercise - Discussed importance of annual dilated eye exam for Diabetes - Discussed potential medication side effects - Discussed blood glucose goals and A1C targets - Discussed uncontrolled diabetes potential effects on organ systems - Discussed hypoglycemia treatment plan - Discussed importance of taking meds as prescribed - Discussed importance of foot care and follow up with Podiatry as needed for Diabetes - Discussed importance of Follow up for Diabetes - Patient instructed to call office if BG over 250 or under 70 consistently HTN PCP Managed Losartan 25mg BP 134/74 --> Continue current therapy HLD PCP Managed Pravastatin 80mg, fenofibrate 54mg LOW DENSITY LIPOPROTEIN Date Value Ref Range Status 07/01/2022 Final Comment: Calculated LDL invalid, triglycerides >400 mg/dl --> Continue statin. Follow FLP. Obesity Body mass index is 30.9 kg/m . Wt Readings from Last 3 Encounters: 11/20/24 174 lb 6.4 oz (79.1 kg) 10/18/24 178 lb 4.8 oz (80.9 kg) 01/10/24 160 lb (72.6 kg) --> Continue to work on lifestyle changes: dietary habits; increasing activity as able, weight reduction --> Optimize DM agents to aid w/ the same. \\ - Patient counseled about these recommendations. Patient voiced understanding. [] Records from outside facility/PCP office to be requested. [x] Scripts sent to pharmacy of choice. Follow up in about 3 months (around 02/20/2025). Diagnostic Data Reviewed Today: CGM AGP Reviewed: No Subjective HPI PCP: NENO IQBAL MD Referring Provider: Hospital follow up Initial [facility] Office visit: 11/20/2024 History of Type 2 Diabetes Time of Onset: 5 years ago Circumstances surrounding dx: screening Previous hospitalizations for DM: Endorses- hypoglycemia Family hx DM: Denies Family hx thyroid disease: Denies Family hx autoimmune disease: Denies Here with son Patient current complaints include: Patient here for hospital follow up: found unconscious dt hypoglycemia- dt UTI and insulin administration DM previously managed by PCP Since hospitalization no low blood sugar Has been in rehab/retirement since Has DG7 with phone- has been for 2 weeks with no change- no data for 2 weeks Has been taking insulin differently: Basaglar 12 units BID Novolog 12 units BIDAC Denies any recent surgeries, denies any new illnesses Denies any steroid use recently Current Medication Regimen: - Basaglar 12 units BID ( prescribed 12 nightly) - Novolog 12 units BIDAC (prescribed 4 units TIDAC) Previously Used DM Agents: Basaglar 50 units BID Novolog 15 TIDAC Injection Sites/Rotation: abdomen, rotates Missed Medication Doses: Denies Medication Side Effects: Denies Medication Cost Concerns: Denies OTC Supplement Usage: Denies Glucose Monitoring CGM use: Yes-DG7 BG Meter: [employer] BGL present: no Scanned into media: no BGL discussed with patient: unable Recent Hyperglycemia - Endorses Recent Hypoglycemia: Denies Hypoglycemic Treatment Plan: gvoke- and glucose tablets sent today BG Trends: unable Dietary Patterns: Usually 2 meals daily Breakfast and dinner - Sugary Beverages - not regularly- as a treat Exercise Patterns: ADLs Complication History Retinopathy: Denies - Last Dilated Eye Exam: patient will sched Neuropathy: Denies - Last DMFE: UTD PCP. 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 Gastrointestinal: Negative for diarrhea, nausea and vomiting. Endocrine: Positive for polydipsia. Negative for polyphagia and polyuria. Genitourinary: Negative for dysuria. Skin: Negative for color change, pallor and wound. ROS was performed at the time of this encounter. Unless noted above in the HPI, the ROS is negative. Allergies Allergen Reactions Aspirin Hives and Swelling Blotchy, GI, hives Penicillins Blotchiness tolerates cephalosporins 09/2024 Sulfa Antibiotics Hives and Swelling blotchy Outpatient Medications Prior to Visit Medication Sig Dispense Refill ascorbic acid (Vitamin C) 500 MG tablet Take 1,000 mg by mouth daily. cholecalciferol (Vitamin D3) 25 MCG (1000 UT) tablet Take by mouth daily. cyanocobalamin (Vitamin B-12) 1000 MCG tablet Take 500 mcg by mouth in the morning. Drug [place] Unifine Pentips Plus 32G X 4 MM misc use 1 (ONE) needle FOUR TIMES DAILY magnesium oxide (Mag-Ox) 400 (240 Mg) MG tablet Take 1 tablet (400 mg) by mouth 2 times daily. 30 tablet 0 melatonin 5 MG tablet Take 1 tablet (5 mg) by mouth Nightly. 30 tablet 0 pravastatin (Pravachol) 80 MG tablet Take 1 tablet (80 mg) by mouth in the morning. 90 tablet 1 rivaroxaban (Xarelto) 20 MG tablet TAKE 1 TABLET BY MOUTH EVERY MORNING WITH BREAKFAST 90 tablet 1 sennosides (Senokot) 8.6 MG tablet Take 1 tablet (8.6 mg) by mouth Nightly. (Patient taking differently: Take 1 tablet by mouth Nightly as needed.) 30 tablet 11 traZODone (Desyrel) 50 MG tablet Take 50 mg by mouth Nightly as needed for sleep. Patient states she takes most nights venlafaxine XR (Effexor XR) 75 MG 24 hr capsule Take 3 capsules (225 mg) by mouth daily (with breakfast). Do not crush or chew. 90 capsule 11 insulin aspart (NovoLOG FLEXPEN) 100 UNIT/ML pen Inject 4 Units under the skin 3 times daily (before meals). insulin glargine (Basaglar KwikPen) 100 UNIT/ML pen Inject 12 Units under the skin Nightly. (Patient taking differently: Inject 12 Units under the skin 2 times daily.) Continuous Glucose Sensor ([employer] G7 Sensor) misc 1 Device as needed. Use a new sensor every 10 days. fenofibrate (Tricor) 54 MG tablet Take 1 tablet (54 mg) by mouth daily. 30 tablet 0 losartan (Cozaar) 25 MG tablet Take 1 tablet (25 mg) by mouth daily. 30 tablet 0 No facility-administered medications prior to visit. 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 Depression History of blood transfusion Hyperlipidemia Hypertension Type II or unspecified type diabetes mellitus without mention of complication, not stated as uncontrolled (HCC) Social History Tobacco Use Smoking status: Every Day Current packs/day: 0.75 Types: Cigarettes Smokeless tobacco: Never Substance Use Topics Alcohol use: Yes Alcohol/week: 0.0 standard drinks of alcohol Past Surgical History: Procedure Laterality Date BREAST LUMPECTOMY Left BREAST LUMPECTOMY Left 2012 s/p radiation as well CATARACT EXTRACTION W/ INTRAOCULAR LENS IMPLANT Bilateral 10/2015, 12/2015 SECTION (HISTORICAL) CHOLECYSTECTOMY DILATION AND CURETTAGE OF UTERUS FEMUR FRACTURE SURGERY Right 11/30/2019 HIP ARTHROPLASTY Right 01/21/2020 conversion JOINT REPLACEMENT Bilateral ROTATOR CUFF REPAIR Right TOTAL ABDOMINAL HYSTERECTOMY Family History Problem Relation Name Age of Onset Asthma Son Thyroid disease Brother Cancer Mother Cancer Father Thyroid disease Mother Cancer Brother Asthma Son Asthma Son Objective BP 134/74 Pulse 88 Ht 5' 2.99" (1.6 m) Wt 174 lb 6.4 oz (79.1 kg) BMI 30.90 kg/m Physical Exam Vitals reviewed. Constitutional: General: She is not in acute distress. Appearance: Normal appearance. She is obese. HENT: Head: Normocephalic and atraumatic. Nose: Nose normal. Pulmonary: Effort: Pulmonary effort is normal. Skin: General: Skin is warm and dry. Neurological: General: No focal deficit present. Mental Status: She is alert and oriented to person, place, and time. Psychiatric: Mood and Affect: Mood normal. Behavior: Behavior normal. Thought Content: Thought content normal. Judgment: Judgment normal. Data Reviewed and Summarized Labs: Lab Results Component Value Date HGBA1C 10.8 (H) 10/19/2024 Lab Results Component Value Date CHOL 187 07/01/2022 CHOL 207 (A) 06/09/2020 Lab Results Component Value Date TRIG 449 (H) 07/01/2022 TRIG 204 (A) 06/09/2020 Lab Results Component Value Date HDL 33 (L) 07/01/2022 HDL 38 (L) 06/09/2020 Lab Results Component Value Date LDL 128 (A) 06/09/2020 LDLCALC 07/01/2022 Comment: Calculated LDL invalid, triglycerides >400 mg/dl Lab Results Component Value Date EGFR 77.2 10/22/2024 EGFR 79.6 10/20/2024 EGFR 86.2 10/19/2024 Lab Results Component Value Date MICROALBCREA 57.0 (H) 07/01/2022 Lab Results Component Value Date TSH 2.07 10/21/2024 Lab Results Component Value Date [id number] 912 (H) 10/21/2024 Electronically signed by John Cruz PA-C Portions of the information within this encounter were entered using an electronic dictation system. Best attempts were made to edit/proofread the information prior to note completion. Despite the review of information, some errors may remain. If there are questions related to the information contained within the note please contact the signing physician directly. documented in this encounter [facility] 11-20-2024 History of Present illness Narrative Images from the original note were not included. [facility] END[facility] [address] [place] [address] Dept: [phone] Dept Loc: [phone] Visit type: New Patient Reason for Visit: Hospital Follow-up Assessment and Plan 1. Type 2 diabetes mellitus with hyperglycemia, with long-term current use of insulin ([facility]) - AMB POC GLUCOSE TEST - insulin glargine (Basaglar KwikPen) 100 UNIT/ML pen; Inject 24 Units under the skin every morning., Starting Cata 11/20/2024, Until Sun11/20/2025, Normal - insulin aspart (NovoLOG FLEXPEN) 100 UNIT/ML pen; Inject 12 Units under the skin 2 times daily (before meals)., Starting Cata 11/20/2024, Until Sun11/20/2025, Normal - glucose 4 g chewable tablet; Chew 4 tablets (16 g) Daily as needed for low blood sugar., Starting Cata 11/20/2024, Until Sun11/20/2025 at 2359, Normal - glucagon (Gvoke HypoPen 2-Pack) 1 MG/0.2ML injection; Inject 0.2 mL (1 mg) under the skin Once as needed for low blood sugar for up to 8 doses., Starting Cata 11/20/2024, Normal - Comprehensive metabolic panel - Hemoglobin A1c - Microalbumin / creatinine urine ratio 2. Hypertension associated with type 2 diabetes mellitus ([facility]) ([facility]) 3. Hyperlipidemia associated with type 2 diabetes mellitus ([facility]) ([facility]) - Lipid panel 4. Class 1 obesity with serious comorbidity and body mass index (BMI) of 31.0 to 31.9 in adult, unspecified obesity type Lab Results Component Value Date EGFR 77.2 10/22/2024 TSH 2.07 10/21/2024 CHOL 187 07/01/2022 HDL 33 (L) 07/01/2022 LDLCALC 07/01/2022 Comment: Calculated LDL invalid, triglycerides >400 mg/dl MICROALBCREA 57.0 (H) 07/01/2022 DM2 Diabetes is: poorly controlled A1C Target: 7.5% without hypoglycemia Insulin is necessary for ongoing management Lab Results Component Value Date HGBA1C 10.8 (H) 10/19/2024 HGBA1C 7.1 (H) 12/14/2023 POC glucose test: 99 Recommendations: Patient will make the following changes to regimen: - Continue Basaglar 24 units qam - Continue Novolog 12 units 2 times daily before meals Will likely need to adjust with blood glucose data- when available --> Labs to be done fasting prior to next visit; discussed holding supplements 5 days prior. --> Continue BG monitoring: via DG7 (or FSBS 4 times per day) and send in BGL in 1-2 weeks for review. --> Backup Meter: [employer] has supplies on hand --> Hypos: Glucagon and Glucose Tabs sent today and educated on use Education: Discussed with Patient: - Notification Parameters - Discussed healthy balanced diet and exercise - Discussed importance of annual dilated eye exam for Diabetes - Discussed potential medication side effects - Discussed blood glucose goals and A1C targets - Discussed uncontrolled diabetes potential effects on organ systems - Discussed hypoglycemia treatment plan - Discussed importance of taking meds as prescribed - Discussed importance of foot care and follow up with Podiatry as needed for Diabetes - Discussed importance of Follow up for Diabetes - Patient instructed to call office if BG over 250 or under 70 consistently HTN PCP Managed Losartan 25mg BP 134/74 --> Continue current therapy HLD PCP Managed Pravastatin 80mg, fenofibrate 54mg LOW DENSITY LIPOPROTEIN Date Value Ref Range Status 07/01/2022 Final Comment: Calculated LDL invalid, triglycerides >400 mg/dl --> Continue statin. Follow FLP. Obesity Body mass index is 30.9 kg/m . Wt Readings from Last 3 Encounters: 11/20/24 174 lb 6.4 oz (79.1 kg) 10/18/24 178 lb 4.8 oz (80.9 kg) 01/10/24 160 lb (72.6 kg) --> Continue to work on lifestyle changes: dietary habits; increasing activity as able, weight reduction --> Optimize DM agents to aid w/ the same. \\ - Patient counseled about these recommendations. Patient voiced understanding. [] Records from outside facility/PCP office to be requested. [x] Scripts sent to pharmacy of choice. Follow up in about 3 months (around 02/20/2025). Diagnostic Data Reviewed Today: CGM AGP Reviewed: No Subjective HPI PCP: NENO IQBAL MD Referring Provider: Hospital follow up Initial [facility] Office visit: 11/20/2024 History of Type 2 Diabetes Time of Onset: 5 years ago Circumstances surrounding dx: screening Previous hospitalizations for DM: Endorses- hypoglycemia Family hx DM: Denies Family hx thyroid disease: Denies Family hx autoimmune disease: Denies Here with son Patient current complaints include: Patient here for hospital follow up: found unconscious dt hypoglycemia- dt UTI and insulin administration DM previously managed by PCP Since hospitalization no low blood sugar Has been in rehab/retirement since Has DG7 with phone- has been for 2 weeks with no change- no data for 2 weeks Has been taking insulin differently: Basaglar 12 units BID Novolog 12 units BIDAC Denies any recent surgeries, denies any new illnesses Denies any steroid use recently Current Medication Regimen: - Basaglar 12 units BID ( prescribed 12 nightly) - Novolog 12 units BIDAC (prescribed 4 units TIDAC) Previously Used DM Agents: Basaglar 50 units BID Novolog 15 TIDAC Injection Sites/Rotation: abdomen, rotates Missed Medication Doses: Denies Medication Side Effects: Denies Medication Cost Concerns: Denies OTC Supplement Usage: Denies Glucose Monitoring CGM use: Yes-DG7 BG Meter: [employer] BGL present: no Scanned into media: no BGL discussed with patient: unable Recent Hyperglycemia - Endorses Recent Hypoglycemia: Denies Hypoglycemic Treatment Plan: gvoke- and glucose tablets sent today BG Trends: unable Dietary Patterns: Usually 2 meals daily Breakfast and dinner - Sugary Beverages - not regularly- as a treat Exercise Patterns: ADLs Complication History Retinopathy: Denies - Last Dilated Eye Exam: patient will sched Neuropathy: Denies - Last DMFE: UTD PCP. 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 Gastrointestinal: Negative for diarrhea, nausea and vomiting. Endocrine: Positive for polydipsia. Negative for polyphagia and polyuria. Genitourinary: Negative for dysuria. Skin: Negative for color change, pallor and wound. ROS was performed at the time of this encounter. Unless noted above in the HPI, the ROS is negative. Allergies Allergen Reactions Aspirin Hives and Swelling Blotchy, GI, hives Penicillins Blotchiness tolerates cephalosporins 09/2024 Sulfa Antibiotics Hives and Swelling blotchy Outpatient Medications Prior to Visit Medication Sig Dispense Refill ascorbic acid (Vitamin C) 500 MG tablet Take 1,000 mg by mouth daily. cholecalciferol (Vitamin D3) 25 MCG (1000 UT) tablet Take by mouth daily. cyanocobalamin (Vitamin B-12) 1000 MCG tablet Take 500 mcg by mouth in the morning. Drug [place] Unifine Pentips Plus 32G X 4 MM misc use 1 (ONE) needle FOUR TIMES DAILY magnesium oxide (Mag-Ox) 400 (240 Mg) MG tablet Take 1 tablet (400 mg) by mouth 2 times daily. 30 tablet 0 melatonin 5 MG tablet Take 1 tablet (5 mg) by mouth Nightly. 30 tablet 0 pravastatin (Pravachol) 80 MG tablet Take 1 tablet (80 mg) by mouth in the morning. 90 tablet 1 rivaroxaban (Xarelto) 20 MG tablet TAKE 1 TABLET BY MOUTH EVERY MORNING WITH BREAKFAST 90 tablet 1 sennosides (Senokot) 8.6 MG tablet Take 1 tablet (8.6 mg) by mouth Nightly. (Patient taking differently: Take 1 tablet by mouth Nightly as needed.) 30 tablet 11 traZODone (Desyrel) 50 MG tablet Take 50 mg by mouth Nightly as needed for sleep. Patient states she takes most nights venlafaxine XR (Effexor XR) 75 MG 24 hr capsule Take 3 capsules (225 mg) by mouth daily (with breakfast). Do not crush or chew. 90 capsule 11 insulin aspart (NovoLOG FLEXPEN) 100 UNIT/ML pen Inject 4 Units under the skin 3 times daily (before meals). insulin glargine (Basaglar KwikPen) 100 UNIT/ML pen Inject 12 Units under the skin Nightly. (Patient taking differently: Inject 12 Units under the skin 2 times daily.) Continuous Glucose Sensor ([employer] G7 Sensor) misc 1 Device as needed. Use a new sensor every 10 days. fenofibrate (Tricor) 54 MG tablet Take 1 tablet (54 mg) by mouth daily. 30 tablet 0 losartan (Cozaar) 25 MG tablet Take 1 tablet (25 mg) by mouth daily. 30 tablet 0 No facility-administered medications prior to visit. 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 Depression History of blood transfusion Hyperlipidemia Hypertension Type II or unspecified type diabetes mellitus without mention of complication, not stated as uncontrolled (HCC) Social History Tobacco Use Smoking status: Every Day Current packs/day: 0.75 Types: Cigarettes Smokeless tobacco: Never Substance Use Topics Alcohol use: Yes Alcohol/week: 0.0 standard drinks of alcohol Past Surgical History: Procedure Laterality Date BREAST LUMPECTOMY Left BREAST LUMPECTOMY Left 2013 s/p radiation as well CATARACT EXTRACTION W/ INTRAOCULAR LENS IMPLANT Bilateral 10/2015, 12/2015 SECTION (HISTORICAL) CHOLECYSTECTOMY DILATION AND CURETTAGE OF UTERUS FEMUR FRACTURE SURGERY Right 11/30/2019 HIP ARTHROPLASTY Right 01/21/2020 conversion JOINT REPLACEMENT Bilateral ROTATOR CUFF REPAIR Right TOTAL ABDOMINAL HYSTERECTOMY Family History Problem Relation Name Age of Onset Asthma Son Thyroid disease Brother Cancer Mother Cancer Father Thyroid disease Mother Cancer Brother Asthma Son Asthma Son Objective BP 134/74 Pulse 88 Ht 5' 2.99" (1.6 m) Wt 174 lb 6.4 oz (79.1 kg) BMI 30.90 kg/m Physical Exam Vitals reviewed. Constitutional: General: She is not in acute distress. Appearance: Normal appearance. She is obese. HENT: Head: Normocephalic and atraumatic. Nose: Nose normal. Pulmonary: Effort: Pulmonary effort is normal. Skin: General: Skin is warm and dry. Neurological: General: No focal deficit present. Mental Status: She is alert and oriented to person, place, and time. Psychiatric: Mood and Affect: Mood normal. Behavior: Behavior normal. Thought Content: Thought content normal. Judgment: Judgment normal. Data Reviewed and Summarized Labs: Lab Results Component Value Date HGBA1C 10.8 (H) 10/19/2024 Lab Results Component Value Date CHOL 187 07/01/2022 CHOL 207 (A) 06/09/2020 Lab Results Component Value Date TRIG 449 (H) 07/01/2022 TRIG 204 (A) 06/09/2020 Lab Results Component Value Date HDL 33 (L) 07/01/2022 HDL 38 (L) 06/09/2020 Lab Results Component Value Date LDL 128 (A) 06/09/2020 LDLCALC 07/01/2022 Comment: Calculated LDL invalid, triglycerides >400 mg/dl Lab Results Component Value Date EGFR 77.2 10/22/2024 EGFR 79.6 10/20/2024 EGFR 86.2 10/19/2024 Lab Results Component Value Date MICROALBCREA 57.0 (H) 07/01/2022 Lab Results Component Value Date TSH 2.07 10/21/2024 Lab Results Component Value Date [id number] 912 (H) 10/21/2024 Electronically signed by John Cruz PA-C Portions of the information within this encounter were entered using an electronic dictation system. Best attempts were made to edit/proofread the information prior to note completion. Despite the review of information, some errors may remain. If there are questions related to the information contained within the note please contact the signing physician directly. documented in this encounter [facility] [employer] 11-20-2024 Instructions John Cruz PA-C - 11/20/2024 1:00 PM EDT - Continue Basaglar 24 units qam - Continue Novolog 12 units 2 times daily before meals --> Labs to be done fasting prior to next visit; discussed holding supplements 5 days prior. --> Continue BG monitoring: via DG7 (or FSBS 4 times per day) and send in BGL in 1-2 weeks for review. documented in this encounter [facility] [employer] 11-20-2024 Instructions John Cruz PA-C - 11/20/2024 1:00 PM EDT - Continue Basaglar 24 units qam - Continue Novolog 12 units 2 times daily before meals --> Labs to be done fasting prior to next visit; discussed holding supplements 5 days prior. --> Continue BG monitoring: via DG7 (or FSBS 4 times per day) and send in BGL in 1-2 weeks for review. 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 Report given documented in this encounter [facility] 10-22-2024 Note Formatting of this n ote might be different from the original. HCL notes discharge plan is SNF. HCL to sign off at this time. [facility] 10-22-2024 Note Formatting of this n ote might be different from the original. HCL notes discharge plan is SNF. HCL to sign off at this time. [facility] 10-22-2024 Miscellaneous Notes [facility] notes discharge plan is SNF. HCL to sign off at this time. Problem: Knowledge Deficit Goal: Patient/family/caregiver demonstrates understanding of disease process, treatment plan, medications, and discharge instructions Outcome: Adequate for Discharge Problem: Potential for Compromised Skin Integrity Goal: Skin Integrity is Maintained or Improved Outcome: Adequate for Discharge Goal: Nutritional status is improving Outcome: Adequate for Discharge Problem: Urinary Incontinence Goal: Perineal skin integrity is maintained or improved Outcome: Adequate for Discharge Problem: Potential for Falls Goal: I will remain free of falls Outcome: Adequate for Discharge Problem: Discharge Barriers Goal: My discharge needs are met Outcome: Adequate for Discharge Confirmed pickup time of 6:30pm by transport [employer] at phone number [phone]. Location of facility drop off is [facility]. Facility notified via [employer], Ronda Portillo notified on secure chat. Discharge med list transmitted to [facility] via [facility] per TCC request. Patient Choice Patient Name: BEVERLY AGEE Date of : 1945 All Providers Sent Referral Name: Nancy hawthorne Annia Phone: [phone] Address: [address] [place] [address] [place] [address] Transport requested in [employer]. Awaiting time confirmation. Rec msg from [facility] with Nancy Milner able to accept and meet SNF on Demand criteria. Able to admit today if ready- msg sent to Dr Guillen and will plan discharge for today- floor nurse notified and will inform patient- call placed to sohail Barger informed of above and agreeable Msg sent to [facility]- Please complete the 7[address] In HENS and then send the discharge med list to Nancy Milner Time 6p and location [facility] Oxygen no bariatric no Any lines or drains no cot If the patient is going by cot, Reason- unsteady gait- safety concern Transportation time confirmed - scheduled for Call placed to [facility] and informed , bedside nurse to notify patient, and facility notified- Referral placed to SNF [facility] via [facility] per TCC request. Await review and response regarding ability to accept. TCC notified Care Management Progress Note PT eval- [facility] -discussed with patient and agreeable- SNF list given with explanation of medicare star ratings and the [employer] collaborative list. She would like to discuss with sohail Barger-offered to send son a copy and she was agreeable Call placed to [facility] reviewed above- interested in Nancy [facility]ner- agreeable to reviewing SNF list for further options- SNF list emailed to [email or web address] Msg sent to [facility] to send referral to Nancy Milner Problem: Knowledge Deficit Goal: Patient/family/caregiver demonstrates understanding of disease process, treatment plan, medications, and discharge instructions Outcome: Progressing Pt from home alone. Medical history includes prior CVA, breast cancer, atrial fibrillation on Xarelto, DM2, HTN, HLD. Pt was found down, unresponsive. EMS found pt's BS to be 30's,dextrose administration improved cognition and responsiveness. Pt was found to have a UTI, IV ATB's started. PT/OT for Dispo. HC referral referral made to follow. [facility] (has ACP docs)/[facility] (POA)[facility], . CM to follow. Problem: Knowledge Deficit Goal: Patient/family/caregiver demonstrates understanding of disease process, treatment plan, medications, and discharge instructions Outcome: Progressing Problem: Potential for Compromised Skin Integrity Goal: Skin Integrity is Maintained or Improved Outcome: Progressing Goal: Nutritional status is improving Outcome: Progressing Problem: Urinary Incontinence Goal: Perineal skin integrity is maintained or improved Outcome: Progressing Problem: Potential for Falls Goal: I will remain free of falls Outcome: Progressing Problem: Discharge Barriers Goal: My discharge needs are met Outcome: Progressing Problem: Metabolic/Fluid and Electrolytes - Adult Goal: Electrolytes maintained within normal limits Outcome: Progressing Goal: Glucose maintained within prescribed range Outcome: Progressing Problem: Knowledge Deficit Goal: Patient/family/caregiver demonstrates understanding of disease process, treatment plan, medications, and discharge instructions Outcome: Progressing Problem: Potential for Compromised Skin Integrity Goal: Skin Integrity is Maintained or Improved Outcome: Progressing Goal: Nutritional status is improving Outcome: Progressing Problem: Urinary Incontinence Goal: Perineal skin integrity is maintained or improved Outcome: Progressing Problem: Potential for Falls Goal: I will remain free of falls Outcome: Progressing Problem: Metabolic/Fluid and Electrolytes - Adult Goal: Electrolytes maintained within normal limits Outcome: Progressing Goal: Glucose maintained within prescribed range Outcome: Progressing Problem: Knowledge Deficit Goal: Patient/family/caregiver demonstrates understanding of disease process, treatment plan, medications, and discharge instructions Outcome: Progressing Problem: Potential for Compromised Skin Integrity Goal: Skin Integrity is Maintained or Improved Outcome: Progressing Goal: Nutritional status is improving Outcome: Progressing Problem: Urinary Incontinence Goal: Perineal skin integrity is maintained or improved Outcome: Progressing Problem: Potential for Falls Goal: I will remain free of falls Outcome: Progressing Problem: Discharge Barriers Goal: My discharge needs are met Outcome: Progressing Problem: Metabolic/Fluid and Electrolytes - Adult Goal: Electrolytes maintained within normal limits Outcome: Progressing Goal: Glucose maintained within prescribed range Outcome: Progressing Continues on IV antibiotics for UTI. Geriatrics and Endocrinology following. May need therapies. TCC will follow for needs. . Received routine Social Work consult. Will follow with interdisciplinary team and provide community resources as needed. Problem: Knowledge Deficit Goal: Patient/family/caregiver demonstrates understanding of disease process, treatment plan, medications, and discharge instructions Outcome: Progressing Problem: Potential for Compromised Skin Integrity Goal: Skin Integrity is Maintained or Improved Outcome: Progressing Goal: Nutritional status is improving Outcome: Progressing Problem: Urinary Incontinence Goal: Perineal skin integrity is maintained or improved Outcome: Progressing Problem: Potential for Falls Goal: I will remain free of falls Outcome: Progressing Problem: Discharge Barriers Goal: My discharge needs are met Outcome: Progressing Problem: Metabolic/Fluid and Electrolytes - Adult Goal: Electrolytes maintained within normal limits Outcome: Progressing Goal: Glucose maintained within prescribed range Outcome: Progressing Problem: Potential for Falls Goal: I will remain free of falls Outcome: Progressing Note: Side rails upx2, bed low, brakes on, call light in reach. Problem: Metabolic/Fluid and Electrolytes - Adult Goal: Glucose maintained within prescribed range Outcome: Progressing Flowsheets (Taken 10/19/2024 1017) Glucose maintained within prescribed range: Monitor blood glucose as ordered Assess for signs and symptoms of hyperglycemia and hypoglycemia Administer ordered medications to maintain glucose within target range Assess barriers to adequate nutritional intake and initiate nutrition consult as needed Problem: Knowledge Deficit Goal: Patient/family/caregiver demonstrates understanding of disease process, treatment plan, medications, and discharge instructions Outcome: Progressing Problem: Potential for Compromised Skin Integrity Goal: Skin Integrity is Maintained or Improved Outcome: Progressing Goal: Nutritional status is improving Outcome: Progressing Problem: Urinary Incontinence Goal: Perineal skin integrity is maintained or improved Outcome: Progressing Problem: Potential for Falls Goal: I will remain free of falls Outcome: Progressing Problem: Discharge Barriers Goal: My discharge needs are met Outcome: Progressing documented in this encounter [facility] 10-22-2024 Plan of care note Problem: Knowledge Deficit Goal: Patient/family/caregiver demonstrates understanding of disease process, treatment plan, medications, and discharge instructions Outcome: Adequate for Discharge Problem: Potential for Compromised Skin Integrity Goal: Skin Integrity is Maintained or Improved Outcome: Adequate for Discharge Goal: Nutritional status is improving Outcome: Adequate for Discharge Problem: Urinary Incontinence Goal: Perineal skin integrity is maintained or improved Outcome: Adequate for Discharge Problem: Potential for Falls Goal: I will remain free of falls Outcome: Adequate for Discharge Problem: Discharge Barriers Goal: My discharge needs are met Outcome: Adequate for Discharge [facility] 10-22-2024 History of Present illness Narrative Images from the original note were not included. PHYSICAL THERAPY [facility] Treatment Note Name/MRN: Beverly Agee ([id number]) Date of : 1945 Age: 79 y.o. Room/Bed: N5-555/[facility] Discharge Recommendation: [facility] Prior Level of Function Prior Level of ADL Function: Independent Prior Level of Mobility: Independent; Device: Front wheeled walker Prior Level of Transfers: Independent Assessment Patient required Min assit for bed mobility, transfers and ambulation 45 feet with FWW this session. Patient questionable historian and demonstrates decreased recall of current events. She is able to recall event that brought her here, unable to recall that she is at hospital. Patient unsafe to return home at this time due to decreased strength and balance with high risk for falls/decreased safety awareness. Recommend SNF upon hospital discharge to address noted deficits. Subjective Patient presents in bed, pleasant and agreeable to session. RN cleared Pain: RN managing pain. Medical Precautions: No active isolations Proper PPE donned/doffed in accordance with facility standards. Fall Risk: Loyd Fall Risk Score: 70 (Low Risk) Loyd Fall Risk Score: 70 (High Risk) Precautions/Restrictions: Fall Precautions Bed alarm Overall Cognitive Status: Exceptions - Following commands: follows one step commands consistently - Memory: decreased recall of biographical information - Safety judgement: decreased awareness of need for assistance - Insights: decreased awareness of deficits - Initiation: requires cues for some Overall Orientation Status: Oriented to Situation and Oriented to Person Family/Caregiver Present: none Objective Bed Mobility Supine to sit: Min Assist for scooting to EOB, HOB near 90 and patient required use of bed features Transfers/Mobility Sit to stand: Contact Guard, Min Assist Stand to sit: Contact Guard, Min Assist Cues for sequence Device(s) used: Front wheeled walker Ambulation Ambulation 1 Assistive device(s) used: Front wheeled walker Assist level: Min Assist Distance (ft): 35 feet Quality of gait: slow savanna, decreased step amplitude bilat, decreased postural control with assist to maintain balance and cues for FWW management Plan Continue acute PT per plan of care. Safety/Education Safety Safety Devices in place: All fall risk precautions in place, call light within reach, left in chair, gait belt, patient at risk for falls, nurse notified, and no alarms engaged upon entry Restraints: No Education Call don't fall/ With staff assist: up to chair for all meals and increase daily ambulation with nursing help for all needs Outcome Measures AM-PAC How much HELP from another person do you currently need Turning from your back to your side while in a flat bed without using bedrails?: A Little Moving from lying on your back to sitting on the side of a flat bed without using bedrails?: A Little Moving to and from a bed to a chair (including a wheelchair)?: A Little Standing up from a chair using your arms (wheelchair or bedside chair)?: A Little Walking in a hospital room?: A Little Stair climbing assessed?: No AM-PAC Inpatient Mobility Raw Score (No Stairs) : 15 JH-HLM JH-HLM Score: Walked 25 ft or more (i.e. walked outside of room) Goals Patient Stated Goal: To go home Encounter Problems Encounter Problems (Active) Balance Patient will maintain dynamic standing balance for 5 minutes with supervision in order to demonstrate decreased risk of falling. (Progressing) Start: 10/21/24 Expected End: 11/18/24 Mobility Patient will ambulate 150 feet with supervision and rolling walker in order to improve safety and independence with mobility. (Progressing) Start: 10/21/24 Expected End: 11/18/24 Patient will ascend and descend 3 stairs with one railing and supervision in order to safely negotiate home. (Not Addressed) Start: 10/21/24 Expected End: 11/18/24 Transfers Patient will perform bed mobility with independence in order to improve independence and prepare for out of bed mobility. (Progressing) Start: 10/21/24 Expected End: 11/18/24 Patient will complete functional transfer with rolling walker with modified independence in order to prepare for ambulation. (Progressing) Start: 10/21/24 Expected End: 11/18/24 Therapy Time Individual Co-treatment Time In 1451 Time Out 1515 Minutes 24 Helena Suggs PTA Cosigned by Victor M Fuentes PT at 10/22/2024 4:30 PM EST Department of Internal Medicine Division of Endocrinology, Diabetes, & Metabolism Endocrinology Note Patient Name: Beverly Agee : 1945 AGE: 79 y.o. Room[facility]: [facility] B Admission Date: 10/18/2024 Visit Date: 10/22/2024 Reason for Endocrine Consult: Diabetes mellitus type 2, hypoglycemia. Provider/Team Requesting Consult: Darrin Iniguez MD. PCP: NENO IQBAL MD Outpt Analytical Scientist: No ASSESSMENT: #1. Type 2 diabetes mellitus, uncontrolled. #2. Hypoglycemia secondary to infection and insulin administration. #3. Urinary tract infection. PLAN: #1. Will start Lantus 12 units/day and Humalog 4 units with meal. #2. Cont with modified low-dose scale, #3. Can discont dextrose 5% infusion as PO intake has improved and no further hypoglycemia. ICU goal 140-180 GMF goal 150-200 POCT BG ACHS Hypoglycemia management per protocol Carb controlled diet ANTICIPATED ENDOCRINE HOME GOING RECOMMENDATIONS: Optimized for Discharge from Endocrine standpoint: YES Home Going Endocrine Rx Recommendations-- Basaglar kwikpen Use 12 units/day Novolog Flexpen Use: 4 units with meals Dexcom G7 CGM Use: Q10 days Pt has this meds at home. Outpt Follow Up-- Endo staff will notify pt (message sent to office). SUBJECTIVE/HPI: Interim 10/21 No further hypoglycemia. Good appetite. Started on Basal-Bolus yest. POC glucose and insulin administration for last 24h reviewed. CHIEF COMPLAINT: Chief Complaint Patient presents with Hypoglycemia Found by ems to have blood sugar in 30's and unresponsive. EMS gave 2 amps of dextrose. 79-year-old female who was brought to the ER after was found unconscious by her neighbor, blood glucose when EMS arrived was in the 30s, upon admission to the ER was 62. Patient has had multiple episodes of hypoglycemia since admission, despite no insulin administration since hospitalization. She has history of type 2 diabetes mellitus diagnosed approximately 5 years ago, currently under managed by her primary care physician Dr. Iqbal. Most current regimen is Basaglar 50 units twice daily and NovoLog 15 units with each meal. Patient does not recall last insulin administration. She uses a Dexcom G7 CGM, I was able to review the data, and it shows hypoglycemia between 12 and 6 AM today. Blood glucose was in the 50s and 60s. Denies previous history of microvascular complications, no history of chronic kidney disease, she does have history of stroke, no history of myocardial infarction. Currently has a good appetite, her son is at bedside, which has aided in the history. Type of DM: 2 Onset of DM: 5 years ago Home DM Medication Regimen: Basaglar 50 units twice daily, NovoLog 15 units 3 times daily. DM control (last A1c/glucose data): Lab Results Component Value Date HGBA1C 10.8 (H) 10/19/2024 Glucose Date/Time Value Ref Range Status 10/22/2024 07:58 AM 186 (H) 70 - 100 mg/dL Final 10/21/2024 08:12 PM 178 (H) 70 - 100 mg/dL Final 10/21/2024 05:26 PM 239 (H) 70 - 100 mg/dL Final 10/21/2024 11:40 AM 275 (H) 70 - 100 mg/dL Final 10/21/2024 08:00 AM 256 (H) 70 - 100 mg/dL Final 10/20/2024 08:48 PM 253 (H) 70 - 100 mg/dL Final Review of Systems ROS negative except for those mentioned in HPI. OBJECTIVE: Vitals: 10/21/24 0801 10/21/24 2102 10/22/24 0712 10/22/24 0758 BP: 153/91 130/64 148/74 BP Location: Right arm Right arm Right arm Patient Position: Lying Lying Lying Pulse: 85 65 80 Resp: 16 16 16 Temp: 36.2 C (97.2 F) 36.7 C (98 F) 36.3 C (97.3 F) TempSrc: Temporal Temporal Temporal SpO2: 98% 95% 96% Weight: Height: 5' 2.99" (1.6 m) Physical Exam Vitals reviewed. Constitutional: Appearance: Normal appearance. HENT: Head: Normocephalic and atraumatic. Mouth/Throat: Mouth: Mucous membranes are moist. Eyes: Extraocular Movements: Extraocular movements intact. Cardiovascular: Rate and Rhythm: Normal rate and regular rhythm. Heart sounds: Normal heart sounds. Pulmonary: Effort: Pulmonary effort is normal. Breath sounds: Normal breath sounds. Abdominal: General: Bowel sounds are normal. Palpations: Abdomen is soft. Musculoskeletal: Right lower leg: No edema. Left lower leg: No edema. Skin: General: Skin is warm. Neurological: General: No focal deficit present. Mental Status: She is alert and oriented to person, place, and time. Psychiatric: Mood and Affect: Mood normal. Behavior: Behavior normal. 24 hour intake/output: Intake/Output Summary (Last 24 hours) at 10/22/2024 1013 Last data filed at 10/21/2024 2231 Gross per 24 hour Intake 390 ml Output -- Net 390 ml Diet: Adult diet Regular; 5 carb choices (75 gm/meal) Medications (as per EMR): HomeMeds: Current Outpatient Medications Medication Instructions ascorbic acid (VITAMIN C) 1,000 mg, Oral, Daily Basaglar KwikPen 50 Units, SubCUTAneous, 2 times daily cholecalciferol (Vitamin D3) 25 MCG (1000 UT) tablet Oral, Daily cyanocobalamin (VITAMIN B-12) 500 mcg, Oral, Daily Drug [place] Unifine Pentips Plus 32G X 4 MM misc use 1 (ONE) needle FOUR TIMES DAILY fenofibrate (TRICOR) 54 mg, Oral, Daily Insulin Aspart (NOVOLOG FLEXPEN SC) 15 Units, SubCUTAneous, 3 times daily with meals losartan (COZAAR) 25 mg, Oral, Daily magnesium oxide (MAG-OX) 400 mg, Oral, 2 times daily melatonin 5 mg, Oral, Nightly pravastatin (PRAVACHOL) 80 mg, Oral, Daily rivaroxaban (Xarelto) 20 MG tablet TAKE 1 TABLET BY MOUTH EVERY MORNING WITH BREAKFAST sennosides (SENOKOT) 8.6 mg, Oral, Nightly traZODone (DESYREL) 50 mg, Oral, Nightly PRN, Patient states she takes most nights venlafaxine XR (EFFEXOR XR) 150 mg, Oral, Daily with breakfast, Do not crush or chew. Scheduled Meds:cefTRIAXone, 1,000 mg, IntraVENous, q24h cyanocobalamin, 500 mcg, Oral, Daily insulin glargine, 12 Units, SubCUTAneous, q AM insulin lispro, 0-5 Units, SubCUTAneous, 4x daily AC & HS insulin lispro, 4 Units, SubCUTAneous, TID WC losartan, 25 mg, Oral, Daily magnesium oxide, 400 mg, Oral, BID melatonin, 5 mg, Oral, Nightly nicotine, 1 patch, TransDERmal, Daily Followed by [START ON 12/01/2024] nicotine, 1 patch, TransDERmal, Daily pravastatin, 80 mg, Oral, Daily rivaroxaban, 20 mg, Oral, Daily with breakfast sennosides, 1 tablet, Oral, BID stomahesive in petrolatum, , Topical, q8h venlafaxine XR, 225 mg, Oral, Daily with breakfast Continuous Infusions: PRN Meds:PRN medications: acetaminophen OR acetaminophen, dextrose, dextrose, glucagon (rDNA), glucose, haloperidol lactate, ipratropium-albuterol, ondansetron ODT OR ondansetron, polyethylene glycol (PEG) 3350, potassium chloride CR, stomahesive in petrolatum, traZODone Diagnostic Workup: I reviewed pertinent Laboratory results, Radiographic results, and Other Clinical Notes at the time of today's encounter. Labs: No components found for: "LABA1C" No components found for: "EAG" Lab Results Component Value Date NA 135 (L) 10/22/2024 K 3.9 10/22/2024 CL 107 10/22/2024 CO2 23 10/22/2024 BUN 15 10/22/2024 CREATININE 0.79 10/22/2024 GLUCOSE 189 (H) 10/22/2024 CALCIUM 9.6 10/22/2024 Lab Results Component Value Date CHOL 187 07/01/2022 CHOL 207 (A) 06/09/2020 Lab Results Component Value Date TRIG 449 (H) 07/01/2022 TRIG 204 (A) 06/09/2020 Lab Results Component Value Date HDL 33 (L) 07/01/2022 HDL 38 (L) 06/09/2020 Lab Results Component Value Date LDLCALC 07/01/2022 Comment: Calculated LDL invalid, triglycerides >400 mg/dl No results found for: "VLDL" Lab Results Component Value Date CHOLHDLRATIO 6 07/01/2022 CHOLHDLRATIO 5 06/09/2020 No results found for: "GMMT62PPQ" Lab Results Component Value Date TSH 2.07 10/21/2024 Radiology reportsas per the Radiologist Radiology: POCT glucose meter Result Date: 10/19/2024 Performed by: [facility] [place] [facility], [address] [place] [address], [place] [address] CLIA ID: [id number] POCT glucose meter Result Date: 10/19/2024 Performed by: [facility], [address] [place] [address], [place] [address] CLIA ID: [id number] POCT glucose meter Result Date: 10/19/2024 Performed by: [facility] [place] [facility], [address] [place] [address], [place] [address] CLIA ID: [id number] POCT glucose meter Result Date: 10/19/2024 Performed by: [facility] [place] [facility], [address] [place] [address], [place] [address] CLIA ID: [id number] POCT glucose meter Result Date: 10/19/2024 Performed by: [facility], [address] [place] [address], [place] [address] CLIA ID: [id number] POCT glucose meter Result Date: 10/19/2024 Performed by: [facility] [place] [facility], [address] [place] [address], [place] [address] CLIA ID: [id number] POCT glucose meter Result Date: 10/19/2024 Performed by: [facility], [address] [place] [address], [place] [address] CLIA ID: [id number] POCT glucose meter Result Date: 10/19/2024 Performed by: [facility], [address] [place] [address], [place] [address] CLIA ID: [id number] POCT glucose meter Result Date: 10/19/2024 Performed by: [facility], [address] [place] [address], [place] [address] CLIA ID: [id number] ECG 12 lead Sinus rhythm Short NC interval Left axis deviation Electronically Signed On 10-19-2024 01:47:54 EST by Marbin Ambrose POCT glucose meter Result Date: 10/18/2024 Performed by: [facility] [place] [facility], [address] [place] [address], [place] [address] CLIA ID: [id number] POCT glucose meter Result Date: 10/18/2024 Performed by: [facility], [address] [place] [address] CLIA ID: [id number] CT head wo IV contrast Result Date: 10/18/2024 Patient Name: BEVERLY AGEE : 1945 Exam Date/Time: 10/18/2024 19:39 Procedure: CT HEAD WO IV CONTRAST Ordering Provider: MARIE TYLER Reason For Exam: possible fall CT HEAD WITHOUT CONTRAST CLINICAL HISTORY: possible fall COMPARISON: 11/29/2019 TECHNIQUE: Helical CT of the brain without contrast. Dose reduction was employed with automated exposure control. FINDINGS: Acute Findings: No hemorrhage, mass, or infarct. Chronic Changes: Scattered patchy foci of white matter hypoattenuation, most likely mild chronic microvascular ischemic changes. Ventricles and sulci: Moderate generalized brain parenchymal volume loss with proportionate ventricular enlargement. Other: The skull, included paranasal sinuses and orbits are normal. No intracranial traumatic injuries. Report Dictated on Electronically Signed By: Mónica Ly MD Electronically Signed Date/Time: 10/18/2024 8:[address] cervical spine wo IV contrast Result Date: 10/18/2024 Patient Name: BEVERLY AGEE : 1945 Exam Date/Time: 10/18/2024 19:39 Procedure: CT CERVICAL SPINE WO IV CONTRAST Ordering Provider: MARIE TYLER Reason For Exam: possible fall EXAMINATION: CT CERVICAL SPINE WO IV CONTRAST CLINICAL HISTORY: possible fall COMPARISON: None TECHNIQUE: Thin isotropic axial images were obtained from the skull base to the upper thoracic spine without intravenous contrast. Dose reduction was employed with automated exposure control. FINDINGS: Craniocervical Junction: Ganglion cyst in the odontoid process of C2. Degenerative changes of the atlantodental and atlantoaxial joints. Alignment: No traumatic malalignment. Vertebrae: No acute fracture or traumatic malalignment. No aggressive osseous lesions. Severe intervertebral disc height loss with endplate spurring at multiple levels, most pronounced C4. Soft Tissues: No acute abnormality. There are atherosclerotic calcifications at the carotid bifurcations. Canal and Foramina: Estimated moderate spinal stenosis at C4-5 and mild spinal stenosis at other levels. No fracture or traumatic malalignment. Multilevel cervical spondylosis. Estimated moderate spinal stenosis at C4-5. Report Dictated on Electronically Signed By: Mónica Ly MD Electronically Signed Date/Time: 10/18/2024 8:27 PM EST POCT glucose meter Result Date: 10/18/2024 [facility]formed by: [facility], [address] [place] [address] CLIA ID: [id number] POCT glucose meter Result Date: 10/18/2024 [facility]formed by: [email or web address], [address] [place] [address] CLIA ID: [id number] History/Other: 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 Depression History of blood transfusion Hyperlipidemia Hypertension Type II or unspecified type diabetes mellitus without mention of complication, not stated as uncontrolled (HCC) Past Surgical History: Past Surgical History: Procedure Laterality Date BREAST LUMPECTOMY Left BREAST LUMPECTOMY Left 2012 s/p radiation as well CATARACT EXTRACTION W/ INTRAOCULAR LENS IMPLANT Bilateral 10/2015, 12/2015 SECTION (HISTORICAL) CHOLECYSTECTOMY DILATION AND CURETTAGE OF UTERUS FEMUR FRACTURE SURGERY Right 11/30/2019 HIP ARTHROPLASTY Right 01/21/2020 conversion JOINT REPLACEMENT Bilateral ROTATOR CUFF REPAIR Right TOTAL ABDOMINAL HYSTERECTOMY Allergy(ies): Allergies Allergen Reactions Aspirin Hives and Swelling Blotchy, GI, hives Penicillins blotchiness Sulfa Antibiotics Hives and Swelling blotchy Family History: Family History Problem Relation Name Age of Onset Asthma Son Thyroid disease Brother Cancer Mother Cancer Father Thyroid disease Mother Cancer Brother Asthma Son Asthma Son Social History: Social History Tobacco Use Smoking status: Every Day Current packs/day: 0.75 Types: Cigarettes Smokeless tobacco: Never Substance Use Topics Alcohol use: Yes Alcohol/week: 0.0 standard drinks of alcohol Drug use: No Portions of the information within this encounter were entered using an electronic dictation system. Best attempts were made to edit/proofread the information prior to note completion. Despite the review of information, some errors may remain. If there are questions related to the information contained within the note please contact the signing physician directly. I spent 35 minutes with the pt which involved coordination of care, medical evaluation, review of records, and/or counseling of the pt regarding his/her condition/disease state/prognosis on the date of this note. Hospitalist Progress Note 10/22/2024 Subjective: Admit Date: 10/18/2024 PCP: NENO IQBAL MD Room#: N5-555/N5-555 B BRIEF HOSPITAL COURSE: Beverly is a 79 y.o. female with past medical history of prior CVA, breast cancer, atrial fibrillation on Xarelto, DM2, HTN, HLD. Per ED report-patient was found unresponsive by her neighbor. EMS called to assess who noted patient's blood sugar was in 30s-dextrose administration improved cognition and responsiveness. Initial ED workup noted potassium at 3.4. Hypoglycemic with glucose at 64-improved with initial management. UA positive for bacteria, WBCs, nitrite and leukocyte esterase consistent with infection. Vital signs showed initial hypotension-improved with initial treatment. Interval History: - No overnight issues. -Patient says she feels well today. Denies any lightheadedness, confusion. No new complaints. -Physical therapy evaluated patient recommending SNF. 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 Depression History of blood transfusion Hyperlipidemia Hypertension Type II or unspecified type diabetes mellitus without mention of complication, not stated as uncontrolled (HCC) LABS: CBC: Recent Labs 10/20/24 0516 10/21/24 0553 10/22/24 0416 WBC 10.5 8.2 9.1 RBC 4.65 4.65 4.66 HGB 13.5 13.7 13.8 HCT 40.4 42.0 39.9 MCV 86.9 90.3 85.6 RDW 13.0 12.6 12.9 PLT 226 178 214 BMP: Recent Labs 10/20/24 0516 10/22/24 0416 NA 136 135* K 4.0 3.9 CL 108* 107 CO2 22* 23 BUN 11 15 CREATININE 0.77 0.79 GLUCOSE 56* 189* CALCIUM 9.6 9.6 ANIONGAP 6 5 LIVER PROFILE: No results for input(s): "AST", "ALT", "BILITOT", "ALKPHOS", "PROT" in the last 72 hours. No lab exists for component: LABALBU PT/INR: No results for input(s): "PROTIME", "INR" in the last 72 hours. CARDIAC ENZYMES: No results for input(s): "TROPONINI" in the last 72 hours. Procalcitonin: No results found for: "PROCAL" COVID-19 PCR: No results for input(s): "COVID19" in the last 72 hours. Objective: Vitals: BP 148/74 (BP Location: Right arm, Patient Position: Lying) Pulse 80 Temp 36.3 C (97.3 F) (Temporal) Resp 16 Ht 5' 2.99" (1.6 m) Wt 178 lb 4.8 oz (80.9 kg) SpO2 96% BMI 31.59 kg/m Pulse Ox: SpO2 Av.5 % Min: 95 % Max: 96 % Supplemental O2: Physical Exam Constitutional: General: She is not in acute distress. Appearance: She is obese. She is not ill-appearing. HENT: Head: Normocephalic and atraumatic. Mouth/Throat: Mouth: Mucous membranes are moist. Eyes: Extraocular Movements: Extraocular movements intact. Pupils: Pupils are equal, round, and reactive to light. Cardiovascular: Rate and Rhythm: Normal rate and regular rhythm. Pulses: Normal pulses. Heart sounds: Normal heart sounds. Pulmonary: Effort: Pulmonary effort is normal. Breath sounds: Normal breath sounds. Abdominal: General: Abdomen is flat. Bowel sounds are normal. Palpations: Abdomen is soft. Musculoskeletal: General: No swelling or tenderness. Normal range of motion. Right lower leg: No edema. Left lower leg: No edema. Skin: General: Skin is warm and dry. Neurological: General: No focal deficit present. Mental Status: She is alert. She is disoriented. Motor: Weakness present. Medications: Scheduled PRN cefTRIAXone, 1,000 mg, IntraVENous, q24h cyanocobalamin, 500 mcg, Oral, Daily insulin glargine, 12 Units, SubCUTAneous, q AM insulin lispro, 0-5 Units, SubCUTAneous, 4x daily AC & HS insulin lispro, 4 Units, SubCUTAneous, TID WC losartan, 25 mg, Oral, Daily magnesium oxide, 400 mg, Oral, BID melatonin, 5 mg, Oral, Nightly nicotine, 1 patch, TransDERmal, Daily Followed by [START ON 12/01/2024] nicotine, 1 patch, TransDERmal, Daily pravastatin, 80 mg, Oral, Daily rivaroxaban, 20 mg, Oral, Daily with breakfast sennosides, 1 tablet, Oral, BID stomahesive in petrolatum, , Topical, q8h venlafaxine XR, 225 mg, Oral, Daily with breakfast PRN medications: acetaminophen OR acetaminophen, dextrose, dextrose, glucagon (rDNA), glucose, haloperidol lactate, ipratropium-albuterol, ondansetron ODT OR ondansetron, polyethylene glycol (PEG) 3350, potassium chloride CR, stomahesive in petrolatum, traZODone Continuous Assessment Acute, acute on chronic, unstable/uncontrolled chronic problems/diagnoses: # Acute metabolic encephalopathy, unresponsiveness secondary to hypoglycemia and infection below: Resolved # Urinary tract infection: -Urine cultures growing E. coli -On IV ceftriaxone -to be completed tomorrow # Type 2 diabetes with hyperglycemia on long-term insulin: Complicated by hypoglycemia on arrival. Uncontrolled, A1c of 10.8 -On sliding scale insulin -Endocrinology following. Appreciate recommendations, optimizing insulin regimen -Stable for discharge from endocrinology standpoint. Stable chronic problems affecting care, new non-acute diagnoses: # Paroxysmal A-fib: On Xarelto 20 times daily # Hypertension # HLD # Depression #History of prior CVA #History of breast cancer #Obesity, class I Plan As a result of the above findings & factors, the following mgmt was pursued: -Resume home medication as ordered -Rest of plan as above -Endocrine plan optimized for discharge -PT recommending SNF. Will discuss with correctional case records supervisor, pending placement now - am labs, replace lytes prn - PT/OT/CM/SW Delirium precautions: increase activity DVT prophylaxis: encourage ambulation and already anticoagulated Advance Directive: DNR-CCA Complexity: Acute illness or injury posing a threat to life or body function (HIGH). Risk: Admission to hospital-level care was considered or occurred (HIGH). Anticipated Discharge - Date - 10/24/2024 - Location - Home versus SNF - Pending the following -PT-OT evaluation and optimization of insulin per endocrine Total time spent (which include face to face and non face to face encounters) : 41 minutes Extended Emergency Contact Information Primary Emergency Contact: Agee (POA)Charbel Relation: Child Secondary Emergency Contact: FélixMarbin Relation: Child Waldo Guillen MD Division of Hospitalist Medicine Acute care [facility] Disclaimers: This note may have been dictated using [employer] Practice Edition 2.6 and/or Tag & See Voice Recognition Feature. The document was proofread; however, unrecognized voice recognition sieve grader tender errors may be present. [facility] Inpatient Consult Service Admission Date: 10/18/2024 Assessment Principal Problem: Hypoglycemia Plan Cognitive deficits --+ history of cognitive decline at home. + history of decline in ADL's and IADL's --TSH WNL, B12 912 --Head imaging - CT head showing scattered patchy foci of white matter hypoattenuation, most likely mild chronic microvascular ischemic changes. Moderate generalized brain parenchymal volume loss with proportionate ventricular enlargement. --Concern for vascular dementia given cognitive changes since stroke in 2016. --Recommend increased supervision with medication management and administration. --Recommend outpatient follow up at [facility] ([facility]) for more in depth cognitive evaluation when in usual state of health. --Recommend to continue to involve family in conversations regarding discharge planning. Discussed referral previously with son and agreeable to outpatient follow up. Fall -Multiple risk factors including hypoglycemia, weakness, cognitive deficits, diabetes, and acute illness -Continue PT/OT as able while inpatient -Vitamin D 29- continue home supplementation -Check orthostatic vital signs as able -Medications with associated fall risk include: insulin and antihypertensives Delirium --Waxing/waning --Etiology likely related to possible infection, hypoglycemia (resolved), age, cognitive deficits, age, constipation --Encourage PO intake, time up in chair, family visits, supervised ambulation, and sleep hygiene --If agitated, assess for and consider treating for pain --QTc= 433 on 10/18/24 --No antipsychotic unless patient is danger to self/others/treatment --Continue scheduled melatonin at HS --Monitor for constipation/urinary retention - last BM unknown. Agree with scheduled bowel regimen as below --Possible medication contributions: n/a Debility --Related to physical deconditioning, acute injuries, diabetes, cognitive deficits --Continue PT/OT as able while inpatient --Anticipate d/c to SNF for ongoing daily PT/OT- Discussed with patient and agreeable to plan. --Social work following-Consider Direction Home Referral Polypharmacy Medications reviewed with geriatric pharmacist with recommendations as below: --Agree with adjusting venlafaxine XR to 225 mg qam (this is maximum recommended dose) Son reported that patient often has insomnia. She takes at home venlafaxine XR 150 mg twice daily with one dose a couple of hours before bedtime. Last dose is likely causing insomnia. Vitamin D deficiency Lab Results Component Value Date VITD25 29 10/21/2024 --Will continue home vitamin D 1000 units daily. Goal vitamin D 30-60. Constipation -No documented BM on admission -Continue Senokot-S BID. Consider adding Miralax daily and as needed Dulcolax suppository. Plan discussed with geriatric pharmacist Follow-up: 1-2 days Subjective Chief Complaint: Patient presents with Hypoglycemia Found by ems to have blood sugar in 30's and unresponsive. EMS gave 2 amps of dextrose. Geriatrics consulted for "Falls. Concern for worsening memory, failure to thrive" HPI- The patient is known to me. 79 y.o. year-old female admitted to acute care from home for altered mental status. Diagnosed with hypoglycemia and UTI. Started on ceftriaxone. Endocrinology following for adjustments to home diabetic regimen. Known to inpatient geriatric team. Last seen 11/2023 following a fall with rib fractures. Per initial consult note, patient receives assistance with bathing and ambulates with straight cane and walker. No longer driving and son manages IADLs. Interval History: Remains on general medical/surgical floor . No documented overnight events. Labs reviewed with sodium 135, glucose 186. CBC unremarkable. Seen by endocrinology with adjustments to home regimen. Patient awake and alert in bed. Patient alert to person and place. States the month is June and corrects herself to state is September. Reports the year as 1930. Denies pain and slept well overnight. She states she is yet to have a BM. Reports she is aware she was found down by her neighbor. Did not recall working with PT yesterday. Discussed recommendation of SNF for plan for discharge. Patient agreeable to plan. 10/22: Seen by PT. Recommending SNF. Min assist. Ambulated 25 ft. Review of Systems Constitutional: Negative for activity change, appetite change and fatigue. Respiratory: Negative for cough and shortness of breath. Gastrointestinal: Negative for abdominal pain and constipation. Genitourinary: Negative for difficulty urinating. Musculoskeletal: Negative for arthralgias and gait problem. Neurological: Negative for dizziness and headaches. Psychiatric/Behavioral: Positive for confusion. Negative for sleep disturbance. The patient is not nervous/anxious. Objective BP 148/74 (BP Location: Right arm, Patient Position: Lying) Pulse 80 Temp 36.3 C (97.3 F) (Temporal) Resp 16 Ht 5' 2.99" (1.6 m) Wt 178 lb 4.8 oz (80.9 kg) SpO2 96% BMI 31.59 kg/m Intake/Output Summary (Last 24 hours) at 10/22/2024 1207 Last data filed at 10/21/2024 2231 Gross per 24 hour Intake 390 ml Output -- Net 390 ml Wt Readings from Last 3 Encounters: 10/18/24 178 lb 4.8 oz (80.9 kg) 01/10/24 160 lb (72.6 kg) 12/12/23 160 lb (72.6 kg) Current Facility-Administered Medications: acetaminophen (Tylenol) tablet 650 mg, 650 mg, Oral, q6h PRN OR acetaminophen (Tylenol) suppository 650 mg, 650 mg, Rectal, q6h PRN, Mónica Tiwari MD cefTRIAXone (Rocephin) 1,000 mg in sodium chloride 0.9 % 50 mL IVPB Mini-Bag Plus, 1,000 mg, IntraVENous, q24h, Waldo Guillen MD, Stopped at 10/21/24 2301 cholecalciferol (Vitamin D-3) tablet 1,000 Units, 1,000 Units, Oral, Daily, May Sharp, DYE MAKER - PROGRAM DEVELOPMENT MANAGER cyanocobalamin (Vitamin B-12) tablet 500 mcg, 500 mcg, Oral, Daily, Mónica Tiwari MD, 500 mcg at 10/22/24 0914 dextrose 5 % infusion, 100 mL/hr, IntraVENous, PRN, Mónica Tiwari MD dextrose 50 % solution 12.5 g, 12.5 g, IntraVENous, PRN, Mónica Tiwari MD, 12.5 g at 10/19/24 0829 glucagon (human recombinant) injection 1 mg, 1 mg, IntraMUSCular, PRN, Mónica Tiwari MD glucose oral gel 15 g, 15 g, Oral, PRN, Mónica Tiwari MD haloperidol lactate (Haldol) injection 0.5 mg, 0.5 mg, IntraMUSCular, q6h PRN, Darrin Iniguez MD insulin glargine (Lantus) injection 12 Units, 12 Units, SubCUTAneous, q AM, Dwayne Cam-Radha, 12 Units at 10/22/24 0913 Insulin Lispro (Humalog) injection 0-5 Units, 0-5 Units, SubCUTAneous, 4x daily AC & HS, 1 Units at 10/21/24 1809 AND [DISCONTINUED] Insulin Lispro (Humalog) injection 0-6 Units, 0-6 Units, SubCUTAneous, Nightly, Mónica Tiwari MD Insulin Lispro (Humalog) injection 4 Units, 4 Units, SubCUTAneous, TID WC, Dwayne Cam-Radha, 4 Units at 10/22/24 0913 ipratropium-albuterol (Duo-Neb) 0.5-2.5 mg/3 mL nebulizer solution 3 mL, 3 mL, Nebulization, BID PRN, Mónica Tiwari MD losartan (Cozaar) tablet 25 mg, 25 mg, Oral, Daily, Mónica Tiwari MD, 25 mg at 10/22/24 0914 magnesium oxide (Mag-Ox) tablet 400 mg, 400 mg, Oral, BID, Mónica Tiwari MD, 400 mg at 10/22/2414 melatonin tablet 5 mg, 5 mg, Oral, Nightly, Mónica Tiwari MD, 5 mg at 10/21/242012 nicotine (Nicoderm, Step 2) 14 MG/24HR patch 1 patch, 1 patch, TransDERmal, Daily, 1 patch at 10/22/2416 FOLLOWED BY [START ON 12/01/2024] nicotine (Nicoderm, Step 3) 7 MG/24HR patch 1 patch, 1 patch, TransDERmal, Daily, Darrin Iniguez MD ondansetron ODT (Zofran-ODT) disintegrating tablet 4 mg, 4 mg, Oral, q8h PRN OR ondansetron (Zofran) injection 4 mg, 4 mg, IntraVENous, q6h PRN, Mónica Tiwari MD polyethylene glycol (PEG) 3350 (Miralax) packet 17 g, 17 g, Oral, Daily PRN, Mónica Tiwari MD potassium chloride CR (Klor-Con M10) ER tablet 40 mEq, 40 mEq, Oral, Daily PRN, Mónica Tiwari MD pravastatin (Pravachol) tablet 80 mg, 80 mg, Oral, Daily, Mónica Tiwari MD, 80 mg at 10/22/24 0900 rivaroxaban (Xarelto) tablet 20 mg, 20 mg, Oral, Daily with breakfast, Mónica Tiwari MD, 20 mg at 10/22/24 0925 sennosides (Senokot) tablet 8.6 mg, 1 tablet, Oral, BID, Waldo Guillen MD, 8.6 mg at 10/22/24 0915 stomahesive in petrolatum (ET Mix), , Topical, q8h, RADHA Anne CNP, Given at 10/22/24 0922 stomahesive in petrolatum (ET Mix), , Topical, PRN, RADHA Anne CNP, Given at 10/21/24 0925 traZODone (Desyrel) tablet 50 mg, 50 mg, Oral, Nightly PRN, Mónica Tiwari MD venlafaxine XR (Effexor XR) 24 hr capsule 225 mg, 225 mg, Oral, Daily with breakfast, Waldo Guillen MD, 225 mg at 10/22/24 0914 Physical exam: Constitutional: No acute distress, well-nourished, well kempt Psych: Mood and affect Appropriate. Good eye contact. Cardiovascular: Regular rate and rhythm, no murmur, no BLE edema Pulmonary/Chest: Clear to auscultation anteriorly, normal respiratory effort, no coughing noted Abdominal: Soft, not distended, no tenderness to palpation, BS present, Neurological: alert, attentive, speech is clear but vague , oriented x place and self, follows commands, no tremor Musculoskeletal: Muscle strength 5/5 RLE, 5/5 LLE. Gait: assessment deferred Skin: warm and dry, no visible rashes or wounds Labs and Imaging: Recent Results (from the past 24 hours) TSH Collection Time: 10/21/24 2:56 PM Result Value Ref Range THYROID STIMULATING HORMONE 2.07 0.35 - 4.94 uIU/mL POCT glucose meter Collection Time: 10/21/24 5:26 PM Result Value Ref Range Glucose 239 (H) 70 - 100 mg/dL Vitamin B12 Collection Time: 10/21/24 5:54 PM Result Value Ref Range VITAMIN B12 912 (H) 213 - 816 pg/mL POCT glucose meter Collection Time: 10/21/24 8:12 PM Result Value Ref Range Glucose 178 (H) 70 - 100 mg/dL CBC auto differential Collection Time: 10/22/24 4:16 AM Result Value Ref Range Auto WBC 9.1 3.6 - 10.7 10*3/uL RBC 4.66 3.80 - 5.20 10*6/uL Hemoglobin 13.8 11.7 - 16.0 g/dL Hematocrit 39.9 35.0 - 47.0 % MCV 85.6 77.0 - 99.0 fL MCH 29.6 26.0 - 34.0 pg MCHC 34.6 30.5 - 36.0 % RDW 12.9 11.5 - 15.0 % Platelets 214 140 - 440 10*3/uL MPV 9.5 9.0 - 12.7 fL nRBC 0.0 0.0 - 2.0 /100 WBCs Neutrophils Relative 49.9 38.0 - 82.0 % Lymphocytes Relative 38.5 15.0 - 45.0 % Monocytes Relative 6.7 5.0 - 13.0 % Eosinophils Relative 2.9 0.0 - 6.0 % Basophils Relative 0.9 0.0 - 2.0 % Immature Grans % 1.1 0.0 - 2.0 % Neutrophils Absolute 4.5 1.8 - 7.5 10*3/uL Lymphocytes Absolute 3.5 1.0 - 4.3 10*3/uL Monocytes Absolute 0.6 0.0 - 0.9 10*3/uL Eosinophils Absolute 0.3 0.0 - 0.5 10*3/uL Basophils Absolute 0.1 0.0 - 0.2 10*3/uL Immature Grans Absolute 0.1 (H) <0.1 10*3/uL Basic metabolic panel Collection Time: 10/22/24 4:16 AM Result Value Ref Range SODIUM 135 (L) 136 - 145 mmol/L POTASSIUM 3.9 3.5 - 5.1 mmol/L CHLORIDE 107 98 - 107 mmol/L CARBON DIOXIDE 23 23 - 31 mmol/L UREA NITROGEN 15 9 - 23 mg/dL CREATININE 0.79 0.57 - 1.11 mg/dL GLUCOSE 189 (H) 82 - 115 mg/dL CALCIUM 9.6 8.8 - 10.0 mg/dL ANION GAP 5 3 - 13 mmol/L eGFR 77.2 >60.0 mL/min/1.73m*2 POCT glucose meter Collection Time: 10/22/24 7:58 AM Result Value Ref Range Glucose 186 (H) 70 - 100 mg/dL POCT glucose meter Collection Time: 10/22/24 11:28 AM Result Value Ref Range Glucose 269 (H) 70 - 100 mg/dL Lab Results Component Value Date TSH 2.07 10/21/2024 Lab Results Component Value Date [id number] 912 (H) 10/21/2024 Lab Results Component Value Date VITD25 29 10/21/2024 Reviewed: allergies, active problem lists, medications, and labs Images from the original note were not included. PHYSICAL THERAPY [facility] Initial Evaluation Name/MRN: Beverly Agee ([id number]) Evaluation Date: 10/21/2024 Date of : 1945 Admission Date: 10/18/2024 6:23 PM Age: 79 y.o. Room[facility]: [facility] Discharge Recommendation: [facility] Facility Assessment IMPRESSION: 79 y/o female admitted to [facility] 10/18/2024 after being found unresponsive with hypoglycemia. Pt lives alone and is typically indep in home with use of FWW. Pt a questionable historian and demo difficulty recalling home set-up and PLOF. Niece at bedside reports pt son supervises showering and her neighbor often brings her meals, but otherwise pt cares for self. Pt required min assist for bed mobility, transfers, and ambulation 25ft with FWW this date. Pt unsafe to return home at this time due to decreased strength & balance with high risk for falls, decreased safety & indep in mobility, & decreased activity tolerance with inability to care for self. Admitting Diagnosis: hypoglycemia Prognosis: good Performance Deficits /Impairments: Decreased Functional Mobility, Decreased Strength, Decreased Safety Awareness, Decreased Endurance, and Decreased Balance Decision Making: Low Complexity Subjective Pt resting in bed and agreeable to PT tx Pain: Pt denies any current pain. 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 Depression History of blood transfusion Hyperlipidemia Hypertension Type II or unspecified type diabetes mellitus without mention of complication, not stated as uncontrolled (HCC) Past Surgical History: Past Surgical History: Procedure Laterality Date BREAST LUMPECTOMY Left BREAST LUMPECTOMY Left 2012 s/p radiation as well CATARACT EXTRACTION W/ INTRAOCULAR LENS IMPLANT Bilateral 10/2015, 12/2015 SECTION (HISTORICAL) CHOLECYSTECTOMY DILATION AND CURETTAGE OF UTERUS FEMUR FRACTURE SURGERY Right 11/30/2019 HIP ARTHROPLASTY Right 01/21/2020 conversion JOINT REPLACEMENT Bilateral ROTATOR CUFF REPAIR Right TOTAL ABDOMINAL HYSTERECTOMY Admission Diagnosis: Patient Active Problem List Diagnosis Date Noted Hypoglycemia 10/18/2024 Complicated UTI (urinary tract infection) 01/11/2024 Closed fracture of multiple ribs of right side, initial encounter 12/12/2023 Weakness 10/03/2022 Hyperglycemia 10/03/2022 Noncompliance with treatment regimen 06/30/2022 UTI (urinary tract infection) 11/29/2019 Closed fracture of one rib of left side 08/01/2021 Hemothorax 08/01/2021 Anticoagulated 08/01/2021 Mood disorder ([facility]) 11/13/2020 Hip fracture requiring operative repair, right, closed, initial encounter ([facility]) 01/21/2020 E-coli UTI 12/01/2019 H/O: CVA (cerebrovascular accident) 11/29/2019 Tobacco dependence syndrome 11/29/2019 Memory impairment 11/29/2019 Fall 11/29/2019 Leukocytosis 11/29/2019 Closed fracture of hip ([facility]) 11/29/2019 Unsteady gait 11/29/2019 Type 2 diabetes mellitus with hyperglycemia, with long-term current use of insulin ([facility]) 11/29/2019 Acute cystitis 11/29/2019 Obesity 11/29/2019 Atrial fibrillation ([facility]) 11/29/2019 Hypomagnesemia 02/18/2019 History of radial keratotomy 01/31/2017 Examination of participant in clinical trial 02/03/2016 Malignant neoplasm of upper-outer quadrant of female breast ([facility]) 02/03/2016 Psychophysiological insomnia 05/06/2015 Essential hypertension 05/06/2015 Mixed anxiety depressive disorder 05/06/2015 Hyperlipidemia 05/06/2015 Medical Precautions: No active isolations Proper PPE donned/doffed in accordance with facility standards. Fall Risk: Loyd Fall Risk Score: 70 (Low Risk) Loyd Fall Risk Score: 70 (High Risk) Precautions/Restrictions: Fall Precautions Bed alarm Family/Caregiver Present: niece Overall Cognitive Status: Exceptions - Following commands: follows one step commands consistently - Memory: decreased recall of biographical information - Safety judgement: decreased awareness of need for assistance - Insights: decreased awareness of deficits - Initiation: requires cues for some - Sequencing: requires cues for some Overall Orientation Status: Oriented to Place and Oriented to Person Vision: Not Assessed Hearing: normal Social/Functional History Patient admitted from home. Lives With: Alone Type of Home: single family home Home Layout: Single Level Home Home Access: Stairs to Enter with Rails (# of stairs: 3) Bathroom Shower/Tub: Tub/Shower Combo and Shower Chair with Back Toilet: Standard Home Equipment: front wheeled walker Homemaking Responsibilities: Needs Assist Receives Help From: Family and Neighbor Active Optomechanical Engineer: No Prior Level of Function Prior Level of ADL Function: Independent Prior Level of Mobility: Independent; Device: Front wheeled walker Prior Level of Transfers: Independent Objective Lower Extremity Assessment AROM: WFL PROM: WFL Strength: Exceptions: hip flex 3+/5 bilat, knee ext 4-/5 bilat Sensation: Not assessed this session Balance: Balance During Session: Posture: fair Sitting - Static: Modified Independent Sitting - Dynamic: Min Assist Standing - Static: Contact Guard Standing - Dynamic: Min Assist Bed Mobility: Supine to sit: Min Assist; assist to elevate trunk Sit to supine: Min Assist; assist to lift LLE into bed Transfers Sit to stand: Min Assist Stand to sit: Min Assist Ambulation Ambulation 1 Assistive device(s) used: Front wheeled walker Assist level: Min Assist Distance (ft): 25 Quality of gait: slow savanna, decreased step amplitude bilat, decreased postural control with assist to maintain balance and cues for FWW management Outcome Measures AM-PAC How much HELP from another person do you currently need Turning from your back to your side while in a flat bed without using bedrails?: A Little Moving from lying on your back to sitting on the side of a flat bed without using bedrails?: A Little Moving to and from a bed to a chair (including a wheelchair)?: A Little Standing up from a chair using your arms (wheelchair or bedside chair)?: A Little Walking in a hospital room?: A Little Stair climbing assessed?: No AM-PAC Inpatient Mobility Raw Score (No Stairs) : 15 [id number] Score: Walked 25 ft or more (i.e. walked outside of room) Plan Pt would benefit from skilled acute PT services to address Strengthening, Gait Training, Balance Training, Functional Mobility Training, Endurance Training, Safety Education and Training, and Stair Training. Frequency: 3x/week for 4 weeks Barriers: Impaired balance, Lower extremity weakness, Decreased endurance, Limited safety awareness, and Stairs at home Safety/Education Safety Safety Devices in place: call light within reach, left in bed, bed alarm in place, and gait belt Restraints: No Education Education Given To: patient Education Provided: PT Role, PT Goals, Gait Training, Transfer Training, Fall Prevention Education, and Discharge Recommendations Education Method: Verbal Barriers to Learning: None Education Outcome: Verbalized Understanding Goals Patient Stated Goal: To go home Encounter Problems Encounter Problems (Active) Balance Patient will maintain dynamic standing balance for 5 minutes with supervision in order to demonstrate decreased risk of falling. Start: 10/21/24 Expected End: 11/18/24 Mobility Patient will ambulate 150 feet with supervision and rolling walker in order to improve safety and independence with mobility. Start: 10/21/24 Expected End: 11/18/24 Patient will ascend and descend 3 stairs with one railing and supervision in order to safely negotiate home. Start: 10/21/24 Expected End: 11/18/24 Transfers Patient will perform bed mobility with independence in order to improve independence and prepare for out of bed mobility. Start: 10/21/24 Expected End: 11/18/24 Patient will complete functional transfer with rolling walker with modified independence in order to prepare for ambulation. Start: 10/21/24 Expected End: 11/18/24 Therapy Time Individual Co-Treatment Co-Evaluation Time In 1520 Time Out 1535 Minutes 15 Dolores Gomez PT Patient's Physical Therapy Plan of Care supervision is transferred to a [facility] Therapy Services Physical Therapist. Goals and/or treatment plan was established in collaboration with patient/family/other representatives. Department of Internal Medicine Division of Endocrinology, Diabetes, & Metabolism Endocrinology Note Patient Name: Beverly Agee : 1945 AGE: 79 y.o. Room[facility]Bed: [facility] B Admission Date: 10/18/2024 Visit Date: 10/21/2024 Reason for Endocrine Consult: Diabetes mellitus type 2, hypoglycemia. Provider/Team Requesting Consult: Darrin Iniguez MD. PCP: NENO IQBAL MD Outpt Analytical Scientist: No ASSESSMENT: #1. Type 2 diabetes mellitus, uncontrolled. #2. Hypoglycemia secondary to infection and insulin administration. #3. Urinary tract infection. PLAN: #1. Will start Lantus 12 units/day and Humalog 4 units with meal. #2. Cont with modified low-dose scale, #3. Can discont dextrose 5% infusion as PO intake has improved and no further hypoglycemia. ICU goal 140-180 GMF goal 150-200 POCT BG ACHS Hypoglycemia management per protocol Carb controlled diet ANTICIPATED ENDOCRINE HOME GOING RECOMMENDATIONS: Optimized for Discharge from Endocrine standpoint: No Home Going Endocrine Rx Recommendations-- TBD Outpt Follow Up-- TBD SUBJECTIVE/HPI: Interim 10/21 No further hypoglycemia. Good appetite. POC glucose and insulin administration for last 24h reviewed. CHIEF COMPLAINT: Chief Complaint Patient presents with Hypoglycemia Found by ems to have blood sugar in 30's and unresponsive. EMS gave 2 amps of dextrose. 79-year-old female who was brought to the ER after was found unconscious by her neighbor, blood glucose when EMS arrived was in the 30s, upon admission to the ER was 62. Patient has had multiple episodes of hypoglycemia since admission, despite no insulin administration since hospitalization. She has history of type 2 diabetes mellitus diagnosed approximately 5 years ago, currently under managed by her primary care physician Dr. Iqbal. Most current regimen is Basaglar 50 units twice daily and NovoLog 15 units with each meal. Patient does not recall last insulin administration. She uses a DexVoxound G7 CGM, I was able to review the data, and it shows hypoglycemia between 12 and 6 AM today. Blood glucose was in the 50s and 60s. Denies previous history of microvascular complications, no history of chronic kidney disease, she does have history of stroke, no history of myocardial infarction. Currently has a good appetite, her son is at bedside, which has aided in the history. Type of DM: 2 Onset of DM: 5 years ago Home DM Medication Regimen: Basaglar 50 units twice daily, NovoLog 15 units 3 times daily. DM control (last A1c/glucose data): Lab Results Component Value Date HGBA1C 10.8 (H) 10/19/2024 Glucose Date/Time Value Ref Range Status 10/21/2024 08:00 AM 256 (H) 70 - 100 mg/dL Final 10/20/2024 08:48 PM 253 (H) 70 - 100 mg/dL Final 10/20/2024 04:09 PM 202 (H) 70 - 100 mg/dL Final 10/20/2024 11:45 AM 159 (H) 70 - 100 mg/dL Final 10/20/2024 07:47 AM 80 70 - 100 mg/dL Final 10/19/2024 08:26 PM 157 (H) 70 - 100 mg/dL Final Review of Systems ROS negative except for those mentioned in HPI. OBJECTIVE: Vitals: 10/19/24201110/20/24 0745 10/20/24 2134 10/21/24 0801 BP: 123/95 139/79 148/78 153/91 BP Location: Right arm Right arm Right arm Patient Position: Lying Sitting Lying Pulse: 66 62 76 85 Resp: 16 16 18 16 Temp: 36.9 C (98.4 F) 36.3 C (97.4 F) 36.4 C (97.5 F) 36.2 C (97.2 F) TempSrc: Temporal Temporal Temporal Temporal SpO2: 95% 98% 97% 98% Weight: Height: Physical Exam Vitals reviewed. Constitutional: Appearance: Normal appearance. HENT: Head: Normocephalic and atraumatic. Mouth/Throat: Mouth: Mucous membranes are moist. Eyes: Extraocular Movements: Extraocular movements intact. Cardiovascular: Rate and Rhythm: Normal rate and regular rhythm. Heart sounds: Normal heart sounds. Pulmonary: Effort: Pulmonary effort is normal. Breath sounds: Normal breath sounds. Abdominal: General: Bowel sounds are normal. Palpations: Abdomen is soft. Musculoskeletal: Right lower leg: No edema. Left lower leg: No edema. Skin: General: Skin is warm. Neurological: General: No focal deficit present. Mental Status: She is alert and oriented to person, place, and time. Psychiatric: Mood and Affect: Mood normal. Behavior: Behavior normal. 24 hour intake/output: Intake/Output Summary (Last 24 hours) at 10/21/2024 1133 Last data filed at 10/20/2024 2246 Gross per 24 hour Intake 2291.66 ml Output 1000 ml Net 1291.66 ml Diet: Adult diet Regular; 5 carb choices (75 gm/meal) Medications (as per EMR): HomeMeds: Current Outpatient Medications Medication Instructions cholecalciferol (Vitamin D3) 25 MCG (1000 UT) tablet Oral, Daily cyanocobalamin (VITAMIN B-12) 500 mcg, Oral, Daily Drug [place] Unifine Pentips Plus 32G X 4 MM misc use 1 (ONE) needle FOUR TIMES DAILY famotidine (PEPCID) 20 mg, Oral, 2 times daily PRN fenofibrate (TRICOR) 54 mg, Oral, Daily insulin glargine (LANTUS) 13 Units, SubCUTAneous, 2 times daily Insulin Lispro (Humalog) 100 UNIT/ML solution injection Dosage Start Date End Date Remaining doses
0-18 Units 3 times daily (with meals) High Dose Correction AlgorithmGlucose: Dose: LESS than 139 No [id number] ipratropium-albuterol (Duo-Neb) 0.5-2.5 mg/3 mL nebulizer solution 3 mL, Nebulization, 2 times daily PRN losartan (COZAAR) 25 mg, Oral, Daily magnesium oxide (MAG-OX) 400 mg, Oral, 2 times daily melatonin 5 mg, Oral, Nightly pravastatin (PRAVACHOL) 80 mg, Oral, Daily rivaroxaban (Xarelto) 20 MG tablet TAKE 1 TABLET BY MOUTH EVERY MORNING WITH BREAKFAST sennosides (SENOKOT) 8.6 mg, Oral, Nightly traZODone (DESYREL) 50 mg, Oral, Nightly PRN, Patient states she takes most nights venlafaxine XR (EFFEXOR XR) 150 mg, Oral, Daily with breakfast, Do not crush or chew. venlafaxine XR (EFFEXOR XR) 75 mg, Oral, Nightly, Do not crush or chew. Scheduled Meds:cefTRIAXone, 1,000 mg, IntraVENous, q24h cyanocobalamin, 500 mcg, Oral, Daily insulin lispro, 0-5 Units, SubCUTAneous, 4x daily AC & HS losartan, 25 mg, Oral, Daily magnesium oxide, 400 mg, Oral, BID melatonin, 5 mg, Oral, Nightly nicotine, 1 patch, TransDERmal, Daily Followed by [START ON 12/01/2024] nicotine, 1 patch, TransDERmal, Daily pravastatin, 80 mg, Oral, Daily rivaroxaban, 20 mg, Oral, Daily with breakfast sennosides, 1 tablet, Oral, Nightly stomahesive in petrolatum, , Topical, q8h venlafaxine XR, 150 mg, Oral, Daily with breakfast venlafaxine XR, 75 mg, Oral, Nightly Continuous Infusions:dextrose 5 % and sodium chloride 0.45 %, 100 mL/hr, Last Rate: 100 mL/hr (10/20/246) PRN Meds:PRN medications: acetaminophen OR acetaminophen, dextrose, dextrose, glucagon (rDNA), glucose, haloperidol lactate, ipratropium-albuterol, ondansetron ODT OR ondansetron, polyethylene glycol (PEG) 3350, potassium chloride CR, stomahesive in petrolatum, traZODone Diagnostic Workup: I reviewed pertinent Laboratory results, Radiographic results, and Other Clinical Notes at the time of today's encounter. Labs: No components found for: "LABA1C" No components found for: "EAG" Lab Results Component Value Date NA 136 10/20/2024 K 4.0 10/20/2024 CL 108 (H) 10/20/2024 CO2 22 (L) 10/20/2024 BUN 11 10/20/2024 CREATININE 0.77 10/20/2024 GLUCOSE 56 (L) 10/20/2024 CALCIUM 9.6 10/20/2024 Lab Results Component Value Date CHOL 187 07/01/2022 CHOL 207 (A) 06/09/2020 Lab Results Component Value Date TRIG 449 (H) 07/01/2022 TRIG 204 (A) 06/09/2020 Lab Results Component Value Date HDL 33 (L) 07/01/2022 HDL 38 (L) 06/09/2020 Lab Results Component Value Date LDLCALC 07/01/2022 Comment: Calculated LDL invalid, triglycerides >400 mg/dl No results found for: "VLDL" Lab Results Component Value Date CHOLHDLRATIO 6 07/01/2022 CHOLHDLRATIO 5 06/09/2020 No results found for: "DYVT72DYQ" No results found for: "TSH", "B1TLZYY", "A0OYIWO", "THYROIDAB" Radiology reportsas per the Radiologist Radiology: POCT glucose meter Result Date: 10/19/2024 Performed by: [facility], [address] [place] [address] CLIA ID: [id number] POCT glucose meter Result Date: 10/19/2024 Performed by: [facility], [address] [place] [address] CLIA ID: [id number] POCT glucose meter Result Date: 10/19/2024 Performed by: [facility] [place] [facility], [address] [place] [address], [place] [address] CLIA ID: [id number] POCT glucose meter Result Date: 10/19/2024 Performed by: [facility] [place] [facility], [address] [place] [address], [place] [address] CLIA ID: [id number] POCT glucose meter Result Date: 10/19/2024 Performed by: [facility], [address] [place] [address], [place] [address] CLIA ID: [id number] POCT glucose meter Result Date: 10/19/2024 Performed by: [facility] [place] [facility], [address] [place] [address], [place] [address] CLIA ID: [id number] POCT glucose meter Result Date: 10/19/2024 Performed by: [facility] [place] [facility], [address] [place] [address], [place] [address] CLIA ID: [id number] POCT glucose meter Result Date: 10/19/2024 Performed by: [facility], [address] [place] [address], [place] [address] CLIA ID: [id number] POCT glucose meter Result Date: 10/19/2024 Performed by: [facility] [place] [facility], [address] [place] [address], [place] [address] CLIA ID: [id number] ECG 12 lead Sinus rhythm Short NC interval Left axis deviation Electronically Signed On 10-19-2024 01:47:54 EST by Marbin Ambrose POCT glucose meter Result Date: 10/18/2024 Performed by: [facility], [address] [place] [address], [place] [address] CLIA ID: [id number] POCT glucose meter Result Date: 10/18/2024 Performed by: [facility], [address] [place] [address], [place] [address] CLIA ID: [id number] CT head wo IV contrast Result Date: 10/18/2024 [facility] 1945 [id number] Exam Date/Time: 10/18/2024 19:39 Procedure: CT HEAD WO IV CONTRAST Ordering Provider: MARIE TYLER Reason For Exam: possible fall CT HEAD WITHOUT CONTRAST CLINICAL HISTORY: possible fall COMPARISON: 11/29/2019 TECHNIQUE: Helical CT of the brain without contrast. Dose reduction was employed with automated exposure control. FINDINGS: Acute Findings: No hemorrhage, mass, or infarct. Chronic Changes: Scattered patchy foci of white matter hypoattenuation, most likely mild chronic microvascular ischemic changes. Ventricles and sulci: Moderate generalized brain parenchymal volume loss with proportionate ventricular enlargement. Other: The skull, included paranasal sinuses and orbits are normal. No intracranial traumatic injuries. Report Dictated on Electronically Signed By: Mónica Ly MD Electronically Signed Date/Time: 10/18/2024 8:[address] cervical spine wo IV contrast Result Date: 10/18/2024 Patient Name: BEVERLY AGEE : 1945 [facility]#: [id number] Exam Date/Time: 10/18/2024 19:39 Procedure: CT CERVICAL SPINE WO IV CONTRAST Ordering Provider: MARIE TYLER Reason For Exam: possible fall EXAMINATION: CT CERVICAL SPINE WO IV CONTRAST CLINICAL HISTORY: possible fall COMPARISON: None TECHNIQUE: Thin isotropic axial images were obtained from the skull base to the upper thoracic spine without intravenous contrast. Dose reduction was employed with automated exposure control. FINDINGS: Craniocervical Junction: Ganglion cyst in the odontoid process of C2. Degenerative changes of the atlantodental and atlantoaxial joints. Alignment: No traumatic malalignment. Vertebrae: No acute fracture or traumatic malalignment. No aggressive osseous lesions. Severe intervertebral disc height loss with endplate spurring at multiple levels, most pronounced C4. Soft Tissues: No acute abnormality. There are atherosclerotic calcifications at the carotid bifurcations. Canal and Foramina: Estimated moderate spinal stenosis at C4-5 and mild spinal stenosis at other levels. No fracture or traumatic malalignment. Multilevel cervical spondylosis. Estimated moderate spinal stenosis at C4-5. Report Dictated on Electronically Signed By: Mónica Ly MD Electronically Signed Date/Time: 10/18/2024 8:27 PM EST POCT glucose meter Result Date: 10/18/2024 Performed by: [facility], [address] [place] [address] CLIA ID: [id number] POCT glucose meter Result Date: 10/18/2024 Performed by: [facility], [address] [place] [address] CLIA ID: [id number] History/Other: 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 Depression History of blood transfusion Hyperlipidemia Hypertension Type II or unspecified type diabetes mellitus without mention of complication, not stated as uncontrolled (HCC) Past Surgical History: Past Surgical History: Procedure Laterality Date BREAST LUMPECTOMY Left BREAST LUMPECTOMY Left 2012 s/p radiation as well CATARACT EXTRACTION W/ INTRAOCULAR LENS IMPLANT Bilateral 10/2015, 12/2015 SECTION (HISTORICAL) CHOLECYSTECTOMY DILATION AND CURETTAGE OF UTERUS FEMUR FRACTURE SURGERY Right 11/30/2019 HIP ARTHROPLASTY Right 01/21/2020 conversion JOINT REPLACEMENT Bilateral ROTATOR CUFF REPAIR Right TOTAL ABDOMINAL HYSTERECTOMY Allergy(ies): Allergies Allergen Reactions Aspirin Hives and Swelling Blotchy, GI, hives Penicillins blotchiness Sulfa Antibiotics Hives and Swelling blotchy Family History: Family History Problem Relation Name Age of Onset Asthma Son Thyroid disease Brother Cancer Mother Cancer Father Thyroid disease Mother Cancer Brother Asthma Son Asthma Son Social History: Social History Tobacco Use Smoking status: Every Day Current packs/day: 0.75 Types: Cigarettes Smokeless tobacco: Never Substance Use Topics Alcohol use: Yes Alcohol/week: 0.0 standard drinks of alcohol Drug use: No Portions of the information within this encounter were entered using an electronic dictation system. Best attempts were made to edit/proofread the information prior to note completion. Despite the review of information, some errors may remain. If there are questions related to the information contained within the note please contact the signing physician directly. I spent 35 minutes with the pt which involved coordination of care, medical evaluation, review of records, and/or counseling of the pt regarding his/her condition/disease state/prognosis on the date of this note. [facility] Medicine Inpatient Consult Service Admission Date: 10/18/2024 Assessment Principal Problem: Hypoglycemia Plan Cognitive deficits --+ history of cognitive decline at home. + history of decline in ADL's and IADL's --TSH pending, B12 pending --Head imaging - CT head showing scattered patchy foci of white matter hypoattenuation, most likely mild chronic microvascular ischemic changes. Moderate generalized brain parenchymal volume loss with proportionate ventricular enlargement. --Concern for vascular dementia given cognitive changes since stroke in 2016. --Recommend increased supervision with medication management and administration. --Recommend outpatient follow up at [facility] ([facility]) for more in depth cognitive evaluation when in usual state of health. --Recommend to continue to involve family in conversations regarding discharge planning. Discussed referral with son and agreeable to outpatient follow up. Fall -Multiple risk factors including hypoglycemia, weakness, cognitive deficits, diabetes, and acute illness -Continue PT/OT as able while inpatient -Vitamin D 29- continue home supplementation -Check orthostatic vital signs as able -Medications with associated fall risk include: insulin and antihypertensives Delirium --Mildly confused at time of visit. --Waxing/waning --Etiology likely related to possible infection, hypoglycemia (resolved), age, cognitive deficits, age --Encourage PO intake, time up in chair, family visits, supervised ambulation, and sleep hygiene --If agitated, assess for and consider treating for pain --QTc= 433 on 10/18/24 --No antipsychotic unless patient is danger to self/others/treatment --Continue scheduled melatonin at HS --Monitor for constipation/urinary retention - last BM unknown. Consider scheduled bowel regimen --Possible medication contributions: n/a Debility --Related to physical deconditioning, acute injuries, diabetes, cognitive deficits --Continue PT/OT as able while inpatient --Anticipate d/c to SNF for ongoing daily PT/OT --Social work following-Consider Direction Home Referral Polypharmacy --Will review medications with geriatric pharmacist for recommendations. Follow-up: will follow with you Subjective Chief Complaint: Patient presents with Hypoglycemia Found by ems to have blood sugar in 30's and unresponsive. EMS gave 2 amps of dextrose. Geriatrics consulted for "Falls. Concern for worsening memory, failure to thrive" HPI- The patient is new to me but seen by the Geriatric Inpatient Consult team. 79 y.o. year-old female admitted to acute care from home for altered mental status. Diagnosed with hypoglycemia and UTI. Started on ceftriaxone. Endocrinology following for adjustments to home diabetic regimen. Known to inpatient geriatric team. Last seen 11/2023 following a fall with rib fractures. Per initial consult note, patient receives assistance with bathing and ambulates with straight cane and walker. No longer driving and son manages IADLs. Interval History: Remains on general medical/surgical floor . No documented overnight events. CBC unremarkable. IVF discontinued. Has not needed PRN medications. Patient awake and alert in bed. Denies pain and slept well overnight. Alert to person and place. Reports the month as August and year as 2022. Reports she is in the hospital as she falls a lot. Asked for son to bring in her walker from home. Lives alone and reports she feels safe at home. Son and neighbors available to help with her care if she calls them. Reports her son sets out her medications and may forget to take every once in a while. Does not recall if she is supposed to take insulin at home. Patient reports in case of emergency she would call daily [place] with emergency response number stating it is 6-6-6. Discussed PT/OT to come work with her today. Agreeable to work with therapies. Spoke to RN. Slight confusion overnight. Easily redirectable with confusion. No reported agitation. Called son Charbel. She has poor short term memory and has a good nursing home memory. Figures she may have dementia. Resources provided by PCP for additional services, never officially diagnosed. Lives alone and has alarms on her phone to remind her to take her medications. She does OK with reminders. Able to use the bathroom on her own. Worries about falling. Son goes over when she has to shower to help with her fear of falling. Tries to get her to move more but she is worried about falling. Over the past week, she had a ground level fall and called EMS to help her up. He sets up pill box once or twice a week. Has a 7 day pill box. She has 2 insulins in the refrigerator and phone set to remind. When she is in the hospital or at rehab, she has had confusion and calls him in the middle of the night. She has had a third UTI. She is in her chair 22 or 23 hours of the day. Only out of her chair to eat food. Unsure if she has had weight loss. She likes junk food. Concern she may have double dosed her insulin. Dexcom reader at home and he places on the back of her arm. She has a fall detection button, did not alert when she fell this time. They have tested it in the past and has worked properly. She did not call when she fell, only found out she fell since he called her at home. Usually wears fall detection button. She has been to rehab in the past. Having to call and remind her regarding medications over the past month. Spoke on the phone with Charbel for 13 minutes. Awaiting PT/OT referral. Review of Systems Constitutional: Positive for activity change. Negative for appetite change and fatigue. Respiratory: Negative for cough and shortness of breath. Gastrointestinal: Negative for abdominal pain and constipation. Genitourinary: Negative for difficulty urinating. Musculoskeletal: Negative for arthralgias and gait problem. Neurological: Negative for dizziness and headaches. Psychiatric/Behavioral: Positive for confusion. Negative for sleep disturbance. The patient is not nervous/anxious. Objective BP 153/91 (BP Location: Right arm, Patient Position: Lying) Pulse 85 Temp 36.2 C (97.2 F) (Temporal) Resp 16 Ht 5' 3" (1.6 m) Wt 178 lb 4.8 oz (80.9 kg) SpO2 98% BMI 31.58 kg/m Intake/Output Summary (Last 24 hours) at 10/21/2024 1304 Last data filed at 10/20/2024 2246 Gross per 24 hour Intake 981.66 ml Output -- Net 981.66 ml Wt Readings from Last 3 Encounters: 10/18/24 178 lb 4.8 oz (80.9 kg) 01/10/24 160 lb (72.6 kg) 12/12/23 160 lb (72.6 kg) Current Facility-Administered Medications: acetaminophen (Tylenol) tablet 650 mg, 650 mg, Oral, q6h PRN OR acetaminophen (Tylenol) suppository 650 mg, 650 mg, Rectal, q6h PRN, Mónica Tiwari MD cefTRIAXone (Rocephin) 1,000 mg in sodium chloride 0.9 % 50 mL IVPB Mini-Bag Plus, 1,000 mg, IntraVENous, q24h, Waldo Guillen MD, Stopped at 10/20/24 210 cyanocobalamin (Vitamin B-12) tablet 500 mcg, 500 mcg, Oral, Daily, Mónica Tiwari MD, 500 mcg at 10/21/24 0858 dextrose 5 % infusion, 100 mL/hr, IntraVENous, PRN, Mónica Tiwari MD dextrose 50 % solution 12.5 g, 12.5 g, IntraVENous, PRN, Mónica Tiwari MD, 12.5 g at 10/19/24 0829 glucagon (human recombinant) injection 1 mg, 1 mg, IntraMUSCular, PRN, Mónica Tiwari MD glucose oral gel 15 g, 15 g, Oral, PRN, Mónica Tiwari MD haloperidol lactate (Haldol) injection 0.5 mg, 0.5 mg, IntraMUSCular, q6h PRN, Darrin Iniguez MD insulin glargine (Lantus) injection 12 Units, 12 Units, SubCUTAneous, q AM, Dwayne Dietrichaleon, 12 Units at 10/21/24 1212 Insulin Lispro (Humalog) injection 0-5 Units, 0-5 Units, SubCUTAneous, 4x daily AC & HS, 2 Units at 10/21/24 1211 AND [DISCONTINUED] Insulin Lispro (Humalog) injection 0-6 Units, 0-6 Units, SubCUTAneous, Nightly, Mónica Tiwari MD Insulin Lispro (Humalog) injection 4 Units, 4 Units, SubCUTAneous, TID WC, Dwayne Dietrichaleon, 4 Units at 10/21/24 1214 ipratropium-albuterol (Duo-Neb) 0.5-2.5 mg/3 mL nebulizer solution 3 mL, 3 mL, Nebulization, BID PRN, Mónica Tiwari MD losartan (Cozaar) tablet 25 mg, 25 mg, Oral, Daily, Mónica Tiwari MD, 25 mg at 10/21/24 0859 magnesium oxide (Mag-Ox) tablet 400 mg, 400 mg, Oral, BID, Mónica Tiwari MD, 400 mg at 10/21/24 0859 melatonin tablet 5 mg, 5 mg, Oral, Nightly, Mónica Tiwari MD, 5 mg at 10/20/242033 nicotine (Nicoderm, Step 2) 14 MG/24HR patch 1 patch, 1 patch, TransDERmal, Daily, 1 patch at 10/21/24 0903 FOLLOWED BY [START ON 12/01/2024] nicotine (Nicoderm, Step 3) 7 MG/24HR patch 1 patch, 1 patch, TransDERmal, Daily, Darrin Iniguez MD ondansetron ODT (Zofran-ODT) disintegrating tablet 4 mg, 4 mg, Oral, q8h PRN OR ondansetron (Zofran) injection 4 mg, 4 mg, IntraVENous, q6h PRN, óMnica Tiwari MD polyethylene glycol (PEG) 3350 (Miralax) packet 17 g, 17 g, Oral, Daily PRN, Mónica Tiwari MD potassium chloride CR (Klor-Con M10) ER tablet 40 mEq, 40 mEq, Oral, Daily PRN, Mónica Tiwari MD pravastatin (Pravachol) tablet 80 mg, 80 mg, Oral, Daily, Mónica Tiwari MD, 80 mg at 10/21/24 0859 rivaroxaban (Xarelto) tablet 20 mg, 20 mg, Oral, Daily with breakfast, Mónica Tiwari MD, 20 mg at 10/21/24 0900 sennosides (Senokot) tablet 8.6 mg, 1 tablet, Oral, Nightly, Mónica Tiwari MD, 8.6 mg at 10/19/24 2146 stomahesive in petrolatum (ET Mix), , Topical, q8h, Danni Beckman APRN - PROGRAM DEVELOPMENT MANAGER, Given at 10/21/24 1211 stomahesive in petrolatum (ET Mix), , Topical, PRN, RADHA Anne CNP, Given at 10/21/24 0925 traZODone (Desyrel) tablet 50 mg, 50 mg, Oral, Nightly PRN, Mónica iTwari MD venlafaxine XR (Effexor XR) 24 hr capsule 150 mg, 150 mg, Oral, Daily with breakfast, Mónica Tiwari MD, 150 mg at 10/21/24 0901 venlafaxine XR (Effexor XR) 24 hr capsule 75 mg, 75 mg, Oral, Nightly, Mónica Tiwari MD, 75 mg at 10/20/242033 Physical exam: Constitutional: No acute distress, well-nourished, well kempt Psych: Mood and affect Appropriate. Good eye contact. Cardiovascular: Regular rate and rhythm, no murmur, no BLE edema Pulmonary/Chest: Clear to auscultation anteriorly, normal respiratory effort, no coughing noted Abdominal: Soft, not distended, no tenderness to palpation, BS present, Neurological: alert, attentive, speech is clear but vague , oriented x place and self, follows commands, no tremor Musculoskeletal: Muscle strength 5/5 RLE, 5/5 LLE. Gait: assessment deferred Skin: warm and dry, no visible rashes or wounds Labs and Imaging: Recent Results (from the past 24 hours) POCT glucose meter Collection Time: 10/20/24 4:09 PM Result Value Ref Range Glucose 202 (H) 70 - 100 mg/dL POCT glucose meter Collection Time: 10/20/24 8:48 PM Result Value Ref Range Glucose 253 (H) 70 - 100 mg/dL CBC Collection Time: 10/21/24 5:53 AM Result Value Ref Range Auto WBC 8.2 3.6 - 10.7 10*3/uL RBC 4.65 3.80 - 5.20 10*6/uL Hemoglobin 13.7 11.7 - 16.0 g/dL Hematocrit 42.0 35.0 - 47.0 % MCV 90.3 77.0 - 99.0 fL MCH 29.5 26.0 - 34.0 pg MCHC 32.6 30.5 - 36.0 % RDW 12.6 11.5 - 15.0 % Platelets 178 140 - 440 10*3/uL MPV 9.1 9.0 - 12.7 fL Vitamin D Deficiency Screening (Vit D 25) Collection Time: 10/21/24 5:53 AM Result Value Ref Range VIT D 25-OH, TOTAL 29 See comment ng/mL Cortisol Collection Time: 10/21/24 5:53 AM Result Value Ref Range CORTISOL 9.1 3.7 - 19.4 ug/dL POCT glucose meter Collection Time: 10/21/24 8:00 AM Result Value Ref Range Glucose 256 (H) 70 - 100 mg/dL POCT glucose meter Collection Time: 10/21/24 11:40 AM Result Value Ref Range Glucose 275 (H) 70 - 100 mg/dL No results found for: "TSH" Lab Results Component Value Date [id number] 623 12/13/2023 Lab Results Component Value Date VITD25 29 10/21/2024 Reviewed: allergies, previous encounters, social history, imaging, active problem lists, medications, and labs Hospitalist Progress Note 10/21/2024 Subjective: Admit Date: 10/18/2024 PCP: NENO IQBAL MD Room#: [id number] B BRIEF HOSPITAL COURSE: Beverly is a 79 y.o. female with past medical history of prior CVA, breast cancer, atrial fibrillation on Xarelto, DM2, HTN, HLD. Per ED report-patient was found unresponsive by her neighbor. EMS called to assess who noted patient's blood sugar was in 30s-dextrose administration improved cognition and responsiveness. Initial ED workup noted potassium at 3.4. Hypoglycemic with glucose at 64-improved with initial management. UA positive for bacteria, WBCs, nitrite and leukocyte esterase consistent with infection. Vital signs showed initial hypotension-improved with initial treatment. Interval History: - No overnight issues. -Patient appears to have some memory loss. Was disoriented to time but was oriented to place, president and person -Denies any chest pain shortness breath today. Says she feels well today. Does not remember what happened but understands that she was found unresponsive. 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 Depression History of blood transfusion Hyperlipidemia Hypertension Type II or unspecified type diabetes mellitus without mention of complication, not stated as uncontrolled (HCC) LABS: CBC: Recent Labs 10/19/24 0334 10/20/24 0516 10/21/24 0553 WBC 9.7 10.5 8.2 RBC 4.52 4.65 4.65 HGB 13.3 13.5 13.7 HCT 38.6 40.4 42.0 MCV 85.4 86.9 90.3 RDW 12.8 13.0 12.6 PLT 245 226 178 BMP: Recent Labs 10/18/24191910/19/24 0334 10/20/24 0516 NA 139 139 136 K 3.4* 3.5 4.0 CL 105 107 108* CO2 26 24 22* BUN 20 17 11 CREATININE 0.82 0.72 0.77 GLUCOSE 64* 25* 56* CALCIUM 9.4 9.6 9.6 ANIONGAP 8 8 6 LIVER PROFILE: Recent Labs 10/18/24191910/19/24 0334 AST 16 19 ALT 8 7 BILITOT 0.2 0.3 ALKPHOS 43 43 PROT 6.0* 5.9* PT/INR: No results for input(s): "PROTIME", "INR" in the last 72 hours. CARDIAC ENZYMES: No results for input(s): "TROPONINI" in the last 72 hours. Procalcitonin: No results found for: "PROCAL" COVID-19 PCR: No results for input(s): "COVID19" in the last 72 hours. Objective: Vitals: BP 153/91 (BP Location: Right arm, Patient Position: Lying) Pulse 85 Temp 36.2 C (97.2 F) (Temporal) Resp 16 Ht 5' 3" (1.6 m) Wt 178 lb 4.8 oz (80.9 kg) SpO2 98% BMI 31.58 kg/m Pulse Ox: SpO2 Av.5 % Min: 97 % Max: 98 % Supplemental O2: Physical Exam Constitutional: General: She is not in acute distress. Appearance: She is obese. She is not ill-appearing. HENT: Head: Normocephalic and atraumatic. Mouth/Throat: Mouth: Mucous membranes are moist. Eyes: Extraocular Movements: Extraocular movements intact. Pupils: Pupils are equal, round, and reactive to light. Cardiovascular: Rate and Rhythm: Normal rate and regular rhythm. Pulses: Normal pulses. Heart sounds: Normal heart sounds. Pulmonary: Effort: Pulmonary effort is normal. Breath sounds: Normal breath sounds. Abdominal: General: Abdomen is flat. Bowel sounds are normal. Palpations: Abdomen is soft. Musculoskeletal: General: No swelling or tenderness. Normal range of motion. Right lower leg: No edema. Left lower leg: No edema. Skin: General: Skin is warm and dry. Neurological: General: No focal deficit present. Mental Status: She is alert. She is disoriented. Motor: Weakness present. Medications: Scheduled PRN cefTRIAXone, 1,000 mg, IntraVENous, q24h cyanocobalamin, 500 mcg, Oral, Daily insulin lispro, 0-5 Units, SubCUTAneous, 4x daily AC & HS losartan, 25 mg, Oral, Daily magnesium oxide, 400 mg, Oral, BID melatonin, 5 mg, Oral, Nightly nicotine, 1 patch, TransDERmal, Daily Followed by [START ON 12/01/2024] nicotine, 1 patch, TransDERmal, Daily pravastatin, 80 mg, Oral, Daily rivaroxaban, 20 mg, Oral, Daily with breakfast sennosides, 1 tablet, Oral, Nightly stomahesive in petrolatum, , Topical, q8h venlafaxine XR, 150 mg, Oral, Daily with breakfast venlafaxine XR, 75 mg, Oral, Nightly PRN medications: acetaminophen OR acetaminophen, dextrose, dextrose, glucagon (rDNA), glucose, haloperidol lactate, ipratropium-albuterol, ondansetron ODT OR ondansetron, polyethylene glycol (PEG) 3350, potassium chloride CR, stomahesive in petrolatum, traZODone Continuous dextrose 5 % and sodium chloride 0.45 %, 100 mL/hr, Last Rate: 100 mL/hr (10/20/24 9460) Assessment Acute, acute on chronic, unstable/uncontrolled chronic problems/diagnoses: # Acute metabolic encephalopathy, unresponsiveness secondary to hypoglycemia and infection below: Resolved # Urinary tract infection: -Urine cultures growing E. coli -On IV ceftriaxone # Type 2 diabetes with hyperglycemia on long-term insulin: Complicated by hypoglycemia on arrival -On sliding scale insulin -Endocrinology following. Appreciate recommendations, optimizing insulin regimen -Not stable for discharge yet from endocrinology standpoint Stable chronic problems affecting care, new non-acute diagnoses: # Paroxysmal A-fib: On Xarelto 20 times daily # Hypertension # HLD # Depression #History of prior CVA #History of breast cancer #Obesity, class I Plan As a result of the above findings & factors, the following mgmt was pursued: -Resume home medication as ordered -Rest of plan as above -Will need to optimize insulin for discharge -Pending physical therapy and OT evaluations for possible placement - am labs, replace lytes prn - PT/OT/CM/SW Delirium precautions: increase activity DVT prophylaxis: encourage ambulation and already anticoagulated Advance Directive: DNR-CCA Complexity: Acute illness or injury posing a threat to life or body function (HIGH). Risk: Admission to hospital-level care was considered or occurred (HIGH). Anticipated Discharge - Date - 10/22/2024 - Location - Home versus SNF - Pending the following -PT-OT evaluation and optimization of insulin per endocrine Total time spent (which include face to face and non face to face encounters) : 45 minutes Extended Emergency Contact Information Primary Emergency Contact: Félix (JACKCharbel Relation: Child Secondary Emergency Contact: Marbin Agee Relation: Child Waldo Guillen MD Division of Hospitalist Medicine [facility] Disclaimers: This note may have been dictated using [employer] Edition 2.6 and/or Tag & See Voice Recognition Feature. The document was proofread; however, unrecognized voice recognition sieve grader tender errors may be present. Patient declined smoking cessation counseling. Accepting of handout with contact information for future reference. Hospitalist Progress Note 10/20/2024 9:59 AM Subjective: Admit Date: 10/18/2024 PCP: NENO IQBAL MD Beverly is a 79 y.o. female with past medical history below who presents with chief complaint listed above. Medical history includes prior CVA, breast cancer, atrial fibrillation on Xarelto, DM2, HTN, HLD. Per ED report-patient was found earlier today unresponsive by her neighbor. EMS called to assess who noted patient's blood sugar was in 30s-dextrose administration improved cognition and responsiveness. At time of physical assessment patient is awake, poor historian and is unable to provide significant history. Initial ED workup notes potassium at 3.4. Hypoglycemic with glucose at 64-improved with initial management. Initial troponin 4-6 on recheck. WBCs WNL at 10.2. UA positive for bacteria, WBCs, nitrite and leukocyte esterase consistent with infection. ECG showing sinus rhythm, HR of 60 bpm. Vital signs show initial hypotension-improved with initial treatment. HR in 60s. Patient is afebrile. Will admit for further evaluation and management. Interval History: pt awake Still with low glucose Is tolerating PO Reports flu like symptom day before admit 10/20 Pt awake Per staff some confusion last night No specific complaints today Adult diet Regular; 5 carb choices (75 gm/meal) @IODETAILS@ @[id number]@ Medications: dextrose 5 % and sodium chloride 0.45 %, 100 mL/hr, Last Rate: 100 mL/hr (10/20/24 0858) cefTRIAXone, 1,000 mg, IntraVENous, q24h cyanocobalamin, 500 mcg, Oral, Daily [Held by provider] insulin glargine, 13 Units, SubCUTAneous, BID insulin lispro, 0-6 Units, SubCUTAneous, TID WC And insulin lispro, 0-6 Units, SubCUTAneous, Nightly losartan, 25 mg, Oral, Daily magnesium oxide, 400 mg, Oral, BID melatonin, 5 mg, Oral, Nightly pravastatin, 80 mg, Oral, Daily rivaroxaban, 20 mg, Oral, Daily with breakfast sennosides, 1 tablet, Oral, Nightly venlafaxine XR, 150 mg, Oral, Daily with breakfast venlafaxine XR, 75 mg, Oral, Nightly Recent Labs 10/18/240 10/19/24 0334 10/20/24 0516 WBC 10.2 9.7 10.5 HGB 13.6 13.3 13.5 PLT 241 245 226 Recent Labs 10/18/24191910/19/24 0334 10/20/24 0516 NA 139 139 136 K 3.4* 3.5 4.0 CL 105 107 108* CO2 26 24 22* BUN 20 17 11 CREATININE 0.82 0.72 0.77 GLUCOSE 64* 25* 56* Recent Labs 10/18/24 1920 10/19/24 0334 AST 16 19 ALT 8 7 BILITOT 0.2 0.3 ALKPHOS 43 43 No results found for: "TRIG", "HDL", "LDLCALC", "CHOL" No results for input(s): "INR" in the last 72 hours. No results for input(s): "CKTOTAL", "CKMB", "TROPONINI" in the last 72 hours. Objective: Vitals: BP 139/79 Pulse 62 Temp 36.3 C (97.4 F) (Temporal) Resp 16 Ht 5' 3" (1.6 m) Wt 178 lb 4.8 oz (80.9 kg) SpO2 98% BMI 31.58 kg/m Pulse Ox: SpO2 Av.5 % Min: 95 % Max: 98 % Supplemental O2: General appearance: Alert and cooperative with exam Lungs: clear to auscultation bilaterally Heart: regular rate and rhythm, S1, S2 normal, no murmur, click, rub or gallop Abdomen: soft, non-tender; bowel sounds normal; no masses, no organomegaly Extremities: extremities normal, atraumatic, no cyanosis or edema Neurologic: No obvious focal neurologic deficits. Assessment Principal Problem: Hypoglycemia Acute, acute on chronic, unstable/uncontrolled chronic problems/diagnoses: Urinary tract infection 2. Found down, physical debility -Fall precautions -PT/OT -Geriatric specialty consulted Stable chronic problems affecting care, new non-acute diagnoses: Diabetes mellitus - 2. Atrial fibrillation -Continue home Xarelto 20 mg 3. Hypertension -Losartan 25 mg 4. Hyperlipidemia -Pravastatin 80 mg -Tricor 54 mg 5. Depression -Effexor 75 mg / 150 mg Cont abx and await urine culture D5 gtt for hypoglycemia Pt reports son sets up insulin for her. Last PCP note was 50 bid basiglar and 15 bid fiasp-- son confirms. Says he has phone alarms set for her to take medication Layne to follow as well-- has seen in [facility] , cognitive deficit noted 2023 Cont supportive care PT/OT endo c/s for home regimen-- A1c >10 Anticipated Discharge - Date - 10/21 - Location - Home? - Pending the following - course Total time spent (which include face to face and non face to face encounters) : 52 minutes See orders, continue POC Advance Directive: DNR-CCA Darrin Iniguez MD, [facility] Hospitalist Nutrition rescreen completed. Patient referred to the Dietitian due to HgAc1 = 10.8. RIVER Christie Images from the original note were not included. [facility] Geriatric Medicine Inpatient Consult Service Admission Date: 10/18/2024 Consult Date: 10/18/24 Consult reason: Falls, concern for worsening memory, failure to thrive Geriatric consult acknowledged. Please contact covering physician via Secure Chat with urgent questions or concerns. Consult will be completed on next business day. Marissa Naqvi MD 10/19/2024 5:00 PM Hospitalist Progress Note 10/19/2024 10:55 AM Subjective: Admit Date: 10/18/2024 PCP: NENO IQBAL MD Beverly is a 79 y.o. female with past medical history below who presents with chief complaint listed above. Medical history includes prior CVA, breast cancer, atrial fibrillation on Xarelto, DM2, HTN, HLD. Per ED report-patient was found earlier today unresponsive by her neighbor. EMS called to assess who noted patient's blood sugar was in 30s-dextrose administration improved cognition and responsiveness. At time of physical assessment patient is awake, poor historian and is unable to provide significant history. Initial ED workup notes potassium at 3.4. Hypoglycemic with glucose at 64-improved with initial management. Initial troponin 4-6 on recheck. WBCs WNL at 10.2. UA positive for bacteria, WBCs, nitrite and leukocyte esterase consistent with infection. ECG showing sinus rhythm, HR of 60 bpm. Vital signs show initial hypotension-improved with initial treatment. HR in 60s. Patient is afebrile. Will admit for further evaluation and management. Interval History: pt awake Still with low glucose Is tolerating PO Reports flu like symptom day before admit Adult diet Regular; 5 carb choices (75 gm/meal) @IODETAILS@ @[id number]@ Medications: dextrose 5 % and sodium chloride 0.45 %, 100 mL/hr, Last Rate: 100 mL/hr (10/19/24 0912) cefTRIAXone, 1,000 mg, IntraVENous, q24h cyanocobalamin, 500 mcg, Oral, Daily [Held by provider] insulin glargine, 13 Units, SubCUTAneous, BID insulin lispro, 0-6 Units, SubCUTAneous, TID WC And insulin lispro, 0-6 Units, SubCUTAneous, Nightly losartan, 25 mg, Oral, Daily magnesium oxide, 400 mg, Oral, BID melatonin, 5 mg, Oral, Nightly pravastatin, 80 mg, Oral, Daily rivaroxaban, 20 mg, Oral, Daily with breakfast sennosides, 1 tablet, Oral, Nightly venlafaxine XR, 150 mg, Oral, Daily with breakfast venlafaxine XR, 75 mg, Oral, Nightly Recent Labs 10/18/24191910/19/24 0334 WBC 10.2 9.7 HGB 13.6 13.3 PLT 241 245 Recent Labs 10/18/24191910/19/24 0334 NA 139 139 K 3.4* 3.5 CL 105 107 CO2 26 24 BUN 20 17 CREATININE 0.82 0.72 GLUCOSE 64* 25* Recent Labs 10/18/240 10/19/24 0334 AST 16 19 ALT 8 7 BILITOT 0.2 0.3 ALKPHOS 43 43 No results found for: "TRIG", "HDL", "LDLCALC", "CHOL" No results for input(s): "INR" in the last 72 hours. No results for input(s): "CKTOTAL", "CKMB", "TROPONINI" in the last 72 hours. Objective: Vitals: BP 147/71 (BP Location: Right arm, Patient Position: Sitting) Pulse 62 Temp 36.1 C (97 F) (Temporal) Resp 20 Ht 5' 3" (1.6 m) Wt 178 lb 4.8 oz (80.9 kg) SpO2 94% BMI 31.58 kg/m Pulse Ox: SpO2 Av % Min: 94 % Max: 100 % Supplemental O2: General appearance: Alert and cooperative with exam Lungs: clear to auscultation bilaterally Heart: regular rate and rhythm, S1, S2 normal, no murmur, click, rub or gallop Abdomen: soft, non-tender; bowel sounds normal; no masses, no organomegaly Extremities: extremities normal, atraumatic, no cyanosis or edema Neurologic: No obvious focal neurologic deficits. Assessment Principal Problem: Hypoglycemia Acute, acute on chronic, unstable/uncontrolled chronic problems/diagnoses: Urinary tract infection 2. Found down, physical debility -Fall precautions -PT/OT -Geriatric specialty consulted Stable chronic problems affecting care, new non-acute diagnoses: Diabetes mellitus - 2. Atrial fibrillation -Continue home Xarelto 20 mg 3. Hypertension -Losartan 25 mg 4. Hyperlipidemia -Pravastatin 80 mg -Tricor 54 mg 5. Depression -Effexor 75 mg / 150 mg Cont abx and await urine culture D5 gtt for hypoglycemia Pt reports son sets up insulin for her. Last PCP note was 50 bid basiglar and 15 bid fiasp Cont supportive care PT/OT Consider endo if questions about home regimen-- A1c >10 Anticipated Discharge - Date - 10/21 - Location - Home - Pending the following - course Total time spent (which include face to face and non face to face encounters) : 51 minutes See orders, continue POC Advance Directive: DNR-CCA Darrin Iniguez MD, [facility] Hospitalist documented in this encounter [facility] 10-22-2024 Note Formatting of this n ote might be different from the original. Confirmed pickup time of 6:30pm by [employer] at phone number [phone]. Location of facility drop off is [facility]. Facility notified via [employer], Ronda Portillo notified on secure chat. Discharge med list transmitted to [facility] via [employer] per TCC request. [facility] 10-22-2024 Note Formatting of this n ote might be different from the original. Confirmed pickup time of 6:30pm by transport [employer] at phone number [phone]. Location of facility drop off is [facility]. Facility notified via [employer], Ronda Bandar notified on secure chat. Discharge med list transmitted to [facility] via [employer] per TCC request. [facility] [employer] 10-22-2024 Note Formatting of this n ote might be different from the original. Patient Choice Patient Name: BEVERLY AGEE Date of : 1945 All Providers Sent Referral Name: Yung Phone: [phone] Address: [address] [place] [id number] [facility] 10-22-2024 Note Formatting of this n ote might be different from the original. Patient Choice Patient Name: BEVERLY AGEE Date of : 1945 All Providers Sent Referral Name: Yung Phone: [phone] Address: [address] [place] [id number] [facility] 10-22-2024 Note Formatting of this n ote might be different from the original. Transport requested in Roundtrip. Awaiting time confirmation. [facility] [employer] 10-22-2024 Note Formatting of this n ote might be different from the original. Transport requested in Roundtrip. Awaiting time confirmation. [facility] 10-22-2024 Note [facility] 10-22-2024 Note Formatting of this n ote might be different from the original. Rec msg from [facility] with Nancy Milner able to accept and meet SNF on Demand criteria. Able to admit today if ready- msg sent to Dr Guillen and will plan discharge for today- floor nurse notified and will inform patient- call placed to sohail Barger informed of above and agreeable Msg sent to [facility]- Please complete the 7000 In HENS and then send the discharge med list to [facility] Time 6p and location [facility] Oxygen no bariatric no Any lines or drains no cot If the patient is going by cot, Reason- unsteady gait- safety concern Transportation time confirmed - scheduled for Call placed to [facility] and informed , bedside nurse to notify patient, and facility notified- [facility] 10-22-2024 Note Formatting of this n ote might be different from the original. Rec msg from [facility] with Nancy Milner able to accept and meet SNF on Demand criteria. Able to admit today if ready- msg sent to Dr Guillen and will plan discharge for today- floor nurse notified and will inform patient- call placed to sohail Barger informed of above and agreeable Msg sent to [facility]- Please complete the 7000 In HENS and then [facility] the [facility] Time 6p and location [facility] Oxygen no bariatric no Any lines or drains no cot If the patient is going by cot, Reason- unsteady gait- safety concern Transportation time confirmed - scheduled for Call placed to [facility] and informed , bedside nurse to notify patient, and facility notified- [facility] 10-22-2024 Hospital course Narrative Discharge Summary Beverly Fern Agee : 1945 ADMIT DATE: 10/18/2024 DISCHARGE DATE: 10/22/2024 PRIMARY CARE PHYSICIAN: NENO IQBAL VISIT STATUS: Admission CODE STATUS: DNR-CCA DISCHARGE DIAGNOSES: Principal Problem: Hypoglycemia Acute, acute on chronic, unstable/uncontrolled chronic problems/diagnoses: # Acute metabolic encephalopathy, unresponsiveness secondary to hypoglycemia and infection below: Resolved # Urinary tract infection: -Urine cultures growing E. coli -On IV ceftriaxone -to be completed tomorrow # Type 2 diabetes with hyperglycemia on long-term insulin: Complicated by hypoglycemia on arrival. Uncontrolled, A1c of 10.8 -On sliding scale insulin -Endocrinology following. Appreciate recommendations, optimizing insulin regimen -Stable for discharge from endocrinology standpoint. Stable chronic problems affecting care, new non-acute diagnoses: # Paroxysmal A-fib: On Xarelto 20 times daily # Hypertension # HLD # Depression #History of prior CVA #History of breast cancer #Obesity, class I HOSPITAL COURSE: Beverly is a 79 y.o. female with past medical history of prior CVA, breast cancer, atrial fibrillation on Xarelto, DM2, HTN, HLD. Per ED report-patient was found unresponsive by her neighbor. EMS called to assess who noted patient's blood sugar was in 30s-dextrose administration improved cognition and responsiveness. Initial ED workup noted potassium at 3.4. Hypoglycemic with glucose at 64-improved with initial management. UA positive for bacteria, WBCs, nitrite and leukocyte esterase consistent with infection. Vital signs showed initial hypotension-improved with initial treatment. Endocrinology was consulted and patient had her insulin adjusted. She will be discharged on basal insulin 12 units every morning +4 units with meals. She will need to follow-up with endocrinology. She completed ceftriaxone for 5 days for UTI. Will SIGNIFICANT DIAGNOSTIC STUDIES: Low glucose levels in the ED Rest of studies as above CONSULTANTS: Endocrinology Geriatrics RECOMMENDED NEXT STEPS: Follow-up with PCP and discharged to SNF Physical Exam Constitutional: General: She is not in acute distress. Appearance: She is obese. She is not ill-appearing. HENT: Head: Normocephalic and atraumatic. Mouth/Throat: Mouth: Mucous membranes are moist. Eyes: Extraocular Movements: Extraocular movements intact. Pupils: Pupils are equal, round, and reactive to light. Cardiovascular: Rate and Rhythm: Normal rate and regular rhythm. Pulses: Normal pulses. Heart sounds: Normal heart sounds. Pulmonary: Effort: Pulmonary effort is normal. Breath sounds: Normal breath sounds. Abdominal: General: Abdomen is flat. Bowel sounds are normal. Palpations: Abdomen is soft. Musculoskeletal: General: No swelling or tenderness. Normal range of motion. Right lower leg: No edema. Left lower leg: No edema. Skin: General: Skin is warm and dry. Neurological: General: No focal deficit present. Mental Status: She is alert. She is disoriented. DISCHARGE MEDICATIONS: Medication List CHANGE how you take these medications Basaglar KwikPen 100 UNIT/ML pen Generic drug: insulin glargine Inject 12 Units under the skin Nightly. What changed: how much to take when to take this NovoLOG FLEXPEN 100 UNIT/ML pen Generic drug: insulin aspart Inject 4 Units under the skin 3 times daily (before meals). What changed: medication strength how much to take when to take this venlafaxine XR 75 MG 24 hr capsule Commonly known as: Effexor XR Take 3 capsules (225 mg) by mouth daily (with breakfast). Do not crush or chew. Start taking on: October 23, 2024 What changed: medication strength how much to take CONTINUE taking these medications ascorbic acid 500 MG tablet Commonly known as: Vitamin C cholecalciferol 25 MCG (1000 UT) tablet Commonly known as: Vitamin D3 cyanocobalamin 1000 MCG tablet Commonly known as: Vitamin B-12 Drug [place] Unifine Pentips Plus 32G X 4 MM misc Generic drug: insulin pen needle fenofibrate 54 MG tablet Commonly known as: Tricor Take 1 tablet (54 mg) by mouth daily. losartan 25 MG tablet Commonly known as: Cozaar Take 1 tablet (25 mg) by mouth daily. magnesium oxide 400 (240 Mg) MG tablet Commonly known as: Mag-Ox Take 1 tablet (400 mg) by mouth 2 times daily. melatonin 5 MG tablet Take 1 tablet (5 mg) by mouth Nightly. pravastatin 80 MG tablet Commonly known as: Pravachol Take 1 tablet (80 mg) by mouth in the morning. sennosides 8.6 MG tablet Commonly known as: Senokot Take 1 tablet (8.6 mg) by mouth Nightly. traZODone 50 MG tablet Commonly known as: Desyrel Xarelto 20 MG tablet Generic drug: rivaroxaban TAKE 1 TABLET BY MOUTH EVERY MORNING WITH BREAKFAST Where to Get Your Medications These medications were sent to [facility] - [address] [place] [address] venlafaxine XR 75 MG 24 hr capsule Information about where to get these medications is not yet available Ask your nurse or doctor about these medications Basaglar KwikPen 100 UNIT/ML pen NovoLOG FLEXPEN 100 UNIT/ML pen DIET: Adult diet Regular; 5 carb choices (75 gm/meal) ACTIVITY: No restriction. COMPLEXITY OF FOLLOW UP: [x] Moderate Complexity: follow up within 7-14 calendar days (39407) [] Severe Complexity: follow up within 7 calendar days (57592) FOLLOW UP TESTING, PENDING RESULTS OR REFERRALS AT TRANSITIONAL CARE VISIT: [] Yes [x] No PENDING STUDIES: None DISPOSITION: Skilled Facility FACILITY/HOME CARE AGENCY NAME: Follow up with [facility] - [address] [address] Neno Iqbal MD [address] [place] [address] Follow up in 1 week(s) INSTRUCTIONS TO MA/SW: Please call patient on day after discharge (must document patient contacted within 2 business days of discharge). FOLLOW UP QUESTIONS FOR MA/SW: 1. Did you get medications filled and taking them as instructed from discharge? 2. Are you following your discharge instructions from your hospital stay? 3. Please confirm patient is scheduled for a follow up appointment within the above time frame. DISCHARGE TIME: > 30 minutes SIGNED: Waldo Guillen MD 10/22/2024, 2:50 PM documented in this encounter [facility] 10-22-2024 Hospital Discharge instructions Shanel Rodney RN - 10/22/2024 2:45 PM EST Images from the original note were not included. Continuity of Care Form Patient Name: Beverly Agee : 1945 Admit date: 10/18/2024 Discharge date: 10/22/24 Code Status Order: DNR-CCA Advance Directives: Y Admitting Physician: Mónica Tiwari MD PCP: NENO IQBAL MD Discharging Nurse: Shanel Rodney Discharging Hospital Unit/Room#: N5-555/N5-555 B Discharging Unit Emergency Contact: Extended Emergency Contact Information Primary Emergency Contact: Félix (Charbel SANTIAGO Relation: Child Secondary Emergency Contact: Marbin Agee Relation: Child Past Surgical History: Past Surgical History: Procedure Laterality Date BREAST LUMPECTOMY Left BREAST LUMPECTOMY Left 2012 s/p radiation as well CATARACT EXTRACTION W/ INTRAOCULAR LENS IMPLANT Bilateral 10/2015, 12/2015 SECTION (HISTORICAL) CHOLECYSTECTOMY DILATION AND CURETTAGE OF UTERUS FEMUR FRACTURE SURGERY Right 11/30/2019 HIP ARTHROPLASTY Right 01/21/2020 conversion JOINT REPLACEMENT Bilateral ROTATOR CUFF REPAIR Right TOTAL ABDOMINAL HYSTERECTOMY Immunization History: Immunization History Administered Date(s) Administered Influenza Whole 06/27/2012, 05/21/2013 Influenza, High Dose Seasonal, Preservative Free 08/11/2015, 08/07/2016, 06/06/2017, 07/02/2017, 07/21/2019, 06/28/2022 Influenza, High-dose Seasonal, Quadrivalent, Preservative Free 07/04/2021 Influenza, Unspecified 06/27/2012, 05/21/2013, 07/10/2014 Influenza, seasonal, injectable 07/10/2014, 08/11/2015 Pfizer SARS-CoV-2 Vaccination 11/12/2020, 12/02/2020, 06/16/2021 Pneumococcal Conjugate PCV 13 08/11/2015 Pneumococcal Conjugate, Unspecified 08/01/2012 Pneumococcal Polysaccharide PPSV23 08/07/2016 Active Problems: Medical Problems Problem List * (Principal) Hypoglycemia Noncompliance with treatment regimen Weakness UTI (urinary tract infection) Hyperglycemia Closed fracture of multiple ribs of right side, initial encounter Complicated UTI (urinary tract infection) Mood disorder (HCC) Overview Signed 06/23/2022 9:33 AM by Corin Lucero MA Last Assessment & Plan: Unsure ofstability of patient on Effexor and Remeron and compliance for diabetic management. Closed fracture of one rib of left side Hemothorax Anticoagulated H/O: CVA (cerebrovascular accident) Tobacco dependence syndrome Hip fracture requiring operative repair, right, closed, initial encounter ([facility]) Memory impairment Examination of participant in clinical trial Malignant neoplasm of upper-outer quadrant of female breast ([facility]) Fall Leukocytosis Closed fracture of hip ([facility]) Unsteady gait Type 2 diabetes mellitus with hyperglycemia, with long-term current use of insulin ([facility]) Acute cystitis E-coli UTI Obesity History of radial keratotomy Psychophysiological insomnia Hypomagnesemia Essential hypertension Overview Signed 06/23/2022 9:33 AM by Corin Lucero MA Last Assessment & Plan: Controlled on losartan. Mixed anxiety depressive disorder Hyperlipidemia Overview Signed 06/23/2022 9:33 AM by Corin Lucero MA Last Assessment & Plan: Uncertain control since patient has not had any lab work done on pravastatin. Atrial fibrillation ([facility]) Isolation/Infection: No active isolations No active infections Nurse Assessment: Last Vital Signs: BP 148/74 (BP Location: Right arm, Patient Position: Lying) Pulse 80 Temp 36.3 C (97.3 F) (Temporal) Resp 16 Ht 5' 2.99" (1.6 m) Wt 178 lb 4.8 oz (80.9 kg) SpO2 96% BMI 31.59 kg/m Last documented pain score (0-10 scale): Last Weight: Wt Readings from Last 1 Encounters: 10/18/24 178 lb 4.8 oz (80.9 kg) Mental Status: {SEAN Patient Mental Status:66856} IV Access: SEAN IV Access: None Nursing Mobility/ADLs: Walking Total assistance Transfer Total assistance Bathing Minimal assistance Dressing Minimal assistance Toileting Total assistance Feeding Minimal assistance Photography Intern Independent Med Delivery no Wound Care Documentation and Therapy: Wound/Incision 12/12/23 Pressure Injury Sacrum Medial (Active) Number of days: 314 Wound/Incision 12/17/23 Incision Flank Right (Active) Number of days: 310 Wound/Incision 01/11/24 Incision Back Right (Active) Number of days: 285 Wound/Incision 01/12/24 Traumatic Ischium Right;Lateral (Active) Number of days: 283 Elimination: Continence: Bowel: no Bladder: no Urinary Catheter: None Colostomy/Ileostomy/Ileal Conduit: None Date of Last BM: unknown Intake/Output Summary (Last 24 hours) at 10/22/2024 1445 Last data filed at 10/22/2024 1349 Gross per 24 hour Intake 630 ml Output -- Net 630 ml I/O last 3 completed shifts: In: 848.3 (10.5 mL/kg) [P.O.:240; I.V.:458.3 (5.7 mL/kg); IV Piggyback:150] Out: - (0 mL/kg) Weight: 80.9 kg Safety Concerns: history of falls (last 30 days) and at risk for falls Impairments/Disabilities: none Nutrition Therapy: Current Nutrition Therapy: Oral diet: general Routes of Feeding: oral Liquids: thin liquids Daily Fluid Restriction: no Last Modified Barium Swallow with Video (Video Swallowing Test): not done Treatments at the Time of Hospital Discharge: Respiratory Treatments: none Oxygen Therapy: is not on home oxygen therapy. Ventilator: No ventilator support Rehab Therapies: physical therapy and occupational therapy Weight Bearing Status/Restrictions: no restriction Other Medical Equipment (for information only, NOT a DME order): none Other Treatments: none Patient's personal belongings (please select all that are sent with patient): earl SCOTT SIGNATURE: MANAGEMENT/SOCIAL WORK SECTION Inpatient Status Date: Discharging to Facility/ Agency Name: Name: [facility] Phone: [phone] Address: [address] [place] [address] [place] [address] Hydroelectric Systems Technician/Roll Dough Divider signature: ICIAN SECTION Name: Beverly Agee Prognosis: good Condition at Discharge: stable Rehab Potential (if transferring to Rehab): good Recommended Labs or Other Treatments After Discharge: cbc and bmp in 2 days The individual is being admitted to a nursing facility directly from an [facility] or a unit of a hospital that is not operated by or licensed by [facility] under section 5119.14 or 5160-3-15.1 5 The individual requires the level of services provided by a nursing facility for the condition for which he or she was treated in the hospital and, Physician Certification: I certify the above information and transfer of Beverly Agee is necessary for the continuing treatment of the diagnosis listed and that she requires intermediate facility for less than 30 days. Update Admission H&P: No change in H&P PHYSICIAN SIGNATURE: documented in this encounter [facility] 10-22-2024 Note Formatting of this n ote might be different from the original. Referral placed to [facility] via [facility] per T[facility] request. Await review and response regarding ability to accept. TCC notified [facility] 10-22-2024 Note Formatting of this n ote might be different from the original. Referral placed to [facility] via [facility] per TCC request. Await review and response regarding ability to accept. TCC notified [facility] 10-22-2024 Note Referral placed to [facility] via [facility] per TCC request. Await review and response regarding ability to accept. TCC notified [facility] 10-22-2024 Note Formatting of this n ote might be different from the original. Care Management Progress Note PT eval- [facility] -discussed with patient and agreeable- SNF list given with explanation of medicare star ratings and [facility]. She would like to discuss with son Charbel-offered to send son a copy and she was agreeable Call placed to Charbel reviewed above- interested in [facility]- agreeable to reviewing SNF list for further options- SNF list emailed to [email or web address] Msg sent to [facility] to send referral to [facility] 10-22-2024 Note Formatting of this n ote might be different from the original. Care Management Progress Note PT eval- [facility] -discussed with patient and agreeable- SNF list given with explanation of medicare star ratings and [facility]. She would like to discuss with son Charbel-offered to send son a copy and she was agreeable Call placed to Charbel reviewed above- interested in [facility]- agreeable to reviewing SNF list for further options- SNF list emailed to [email or web address] Msg sent to [facility] to send referral to [facility] 10-22-2024 Note Problem: Knowledge D eficit Goal: Patient/family/caregiver demonstrates understanding of disease process, treatment plan, medications, and discharge instructions Outcome: Progressing [facility] 10-22-2024 Plan of care note Problem: Knowledge Deficit Goal: Patient/family/caregiver demonstrates understanding of disease process, treatment plan, medications, and discharge instructions Outcome: Progressing [facility] 10-21-2024 Note Formatting of this n ote might be different from the original. Pt from home alone. Medical history includes prior CVA, breast cancer, atrial fibrillation on Xarelto, DM2, HTN, HLD. Pt was found down, unresponsive. EMS found pt's BS to be 30's,dextrose administration improved cognition and responsiveness. Pt was found to have a UTI, IV ATB's started. PT/OT for Dispo. HC referral referral made to follow. DNR-OSIRIS (has [facility] docs)/Charbel Agee (POA), . CM to follow. [facility] 10-21-2024 Note Formatting of this n ote might be different from the original. Pt from home alone. Medical history includes prior CVA, breast cancer, atrial fibrillation on Xarelto, DM2, HTN, HLD. Pt was found down, unresponsive. EMS found pt's BS to be 30's,dextrose administration improved cognition and responsiveness. Pt was found to have a UTI, IV ATB's started. PT/OT for Dispo. HC referral referral made to follow. DNR-OSIRIS (has [facility] docs)/Charbel Agee (POA), . CM to follow. [facility] 10-21-2024 Plan of care note Problem: Knowledge Deficit Goal: Patient/family/caregiver demonstrates understanding of disease process, treatment plan, medications, and discharge instructions Outcome: Progressing Problem: Potential for Compromised Skin Integrity Goal: Skin Integrity is Maintained or Improved Outcome: Progressing Goal: Nutritional status is improving Outcome: Progressing Problem: Urinary Incontinence Goal: Perineal skin integrity is maintained or improved Outcome: Progressing Problem: Potential for Falls Goal: I will remain free of falls Outcome: Progressing Problem: Discharge Barriers Goal: My discharge needs are met Outcome: Progressing Problem: Metabolic/Fluid and Electrolytes - Adult Goal: Electrolytes maintained within normal limits Outcome: Progressing Goal: Glucose maintained within prescribed range Outcome: Progressing [facility] 10-21-2024 Plan of care note Problem: Knowledge Deficit Goal: Patient/family/caregiver demonstrates understanding of disease process, treatment plan, medications, and discharge instructions Outcome: Progressing Problem: Potential for Compromised Skin Integrity Goal: Skin Integrity is Maintained or Improved Outcome: Progressing Goal: Nutritional status is improving Outcome: Progressing Problem: Urinary Incontinence Goal: Perineal skin integrity is maintained or improved Outcome: Progressing Problem: Potential for Falls Goal: I will remain free of falls Outcome: Progressing Problem: Metabolic/Fluid and Electrolytes - Adult Goal: Electrolytes maintained within normal limits Outcome: Progressing Goal: Glucose maintained within prescribed range Outcome: Progressing [facility] 10-20-2024 Consult note Associated Order (s): IP CONSULT TO ENDOCRINOLOGY Department of Internal Medicine Division of Endocrinology, Diabetes, & Metabolism Endocrinology Note Patient Name: Beverly Agee : 1945 AGE: 79 y.o. Room[facility]: [facility] Admission Date: 10/18/2024 Visit Date: 10/20/2024 Reason for Endocrine Consult: Diabetes mellitus type 2, hypoglycemia. Provider/Team Requesting Consult: Darrin Iniguez MD. PCP: NENO IQBAL MD Outpt Analytical Scientist: No ASSESSMENT: #1. Type 2 diabetes mellitus, uncontrolled. #2. Hypoglycemia secondary to infection and insulin administration. #3. Urinary tract infection. PLAN: #1. Continue to monitor blood glucose before meals and at bedtime, will use correction insulin low-dose but starting at 200 mg/dL. #2. Given patient's age and comorbidities strict glycemic control is not recommended. #3. Will hold any standing insulin administration at the moment. #4. Continue with dextrose 5% infusion. #5. Check 8 AM cortisol. ICU goal 140-180 GMF goal 150-200 POCT BG ACHS Hypoglycemia management per protocol Carb controlled diet ANTICIPATED ENDOCRINE HOME GOING RECOMMENDATIONS: Optimized for Discharge from Endocrine standpoint: No Home Going Endocrine Rx Recommendations-- TBD Outpt Follow Up-- TBD SUBJECTIVE/HPI: CHIEF COMPLAINT: Chief Complaint Patient presents with Hypoglycemia Found by ems to have blood sugar in 30's and unresponsive. EMS gave 2 amps of dextrose. 79-year-old female who was brought to the ER after was found unconscious by her neighbor, blood glucose when EMS arrived was in the 30s, upon admission to the ER was 62. Patient has had multiple episodes of hypoglycemia since admission, despite no insulin administration since hospitalization. She has history of type 2 diabetes mellitus diagnosed approximately 5 years ago, currently under managed by her primary care physician Dr. Iqbal. Most current regimen is Basaglar 50 units twice daily and NovoLog 15 units with each meal. Patient does not recall last insulin administration. She uses a [employer] G7 CGM, I was able to review the data, and it shows hypoglycemia between 12 and 6 AM today. Blood glucose was in the 50s and 60s. Denies previous history of microvascular complications, no history of chronic kidney disease, she does have history of stroke, no history of myocardial infarction. Currently has a good appetite, her son is at bedside, which has aided in the history. Type of DM: 2 Onset of DM: 5 years ago Home DM Medication Regimen: Basaglar 50 units twice daily, NovoLog 15 units 3 times daily. DM control (last A1c/glucose data): Lab Results Component Value Date HGBA1C 10.8 (H) 10/19/2024 Glucose Date/Time Value Ref Range Status 10/20/2024 11:45 AM 159 (H) 70 - 100 mg/dL Final 10/20/2024 07:47 AM 80 70 - 100 mg/dL Final 10/19/2024 08:26 PM 157 (H) 70 - 100 mg/dL Final 10/19/2024 05:00 PM 105 (H) 70 - 100 mg/dL Final 10/19/2024 11:47 AM 93 70 - 100 mg/dL Final 10/19/2024 09:04 AM 97 70 - 100 mg/dL Final Review of Systems ROS negative except for those mentioned in HPI. OBJECTIVE: Vitals: 10/18/24 2347 10/19/24 0830 10/19/24201110/20/24 0745 BP: 128/56 147/71 123/95 139/79 BP Location: Right arm Right arm Patient Position: Sitting Lying Pulse: 60 62 66 62 Resp: 18 20 16 16 Temp: 36.1 C (96.9 F) 36.1 C (97 F) 36.9 C (98.4 F) 36.3 C (97.4 F) TempSrc: Temporal Temporal Temporal Temporal SpO2: 100% 94% 95% 98% Weight: 178 lb 4.8 oz (80.9 kg) Height: 5' 3" (1.6 m) Physical Exam Vitals reviewed. Constitutional: Appearance: Normal appearance. HENT: Head: Normocephalic and atraumatic. Mouth/Throat: Mouth: Mucous membranes are moist. Eyes: Extraocular Movements: Extraocular movements intact. Cardiovascular: Rate and Rhythm: Normal rate and regular rhythm. Heart sounds: Normal heart sounds. Pulmonary: Effort: Pulmonary effort is normal. Breath sounds: Normal breath sounds. Abdominal: General: Bowel sounds are normal. Palpations: Abdomen is soft. Musculoskeletal: Right lower leg: No edema. Left lower leg: No edema. Skin: General: Skin is warm. Neurological: General: No focal deficit present. Mental Status: She is alert and oriented to person, place, and time. Psychiatric: Mood and Affect: Mood normal. Behavior: Behavior normal. 24 hour intake/output: Intake/Output Summary (Last 24 hours) at 10/20/2024 1452 Last data filed at 10/20/2024 1257 Gross per 24 hour Intake 1766.67 ml Output 1900 ml Net -133.33 ml Diet: Adult diet Regular; 5 carb choices (75 gm/meal) Medications (as per EMR): HomeMeds: Current Outpatient Medications Medication Instructions cholecalciferol (Vitamin D3) 25 MCG (1000 UT) tablet Oral, Daily cyanocobalamin (VITAMIN B-12) 500 mcg, Oral, Daily Drug [place] Unifine Pentips Plus 32G X 4 MM misc use 1 (ONE) needle FOUR TIMES DAILY famotidine (PEPCID) 20 mg, Oral, 2 times daily PRN fenofibrate (TRICOR) 54 mg, Oral, Daily insulin glargine (LANTUS) 13 Units, SubCUTAneous, 2 times daily Insulin Lispro (Humalog) 100 UNIT/ML solution injection Dosage Start Date End Date Remaining doses0-18 Units 3 times daily (with meals) High Dose Correction AlgorithmGlucose: Dose: LESS than 139 No [id number] ipratropium-albuterol (Duo-Neb) 0.5-2.5 mg/3 mL nebulizer solution 3 mL, Nebulization, 2 times daily PRN losartan (COZAAR) 25 mg, Oral, Daily magnesium oxide (MAG-OX) 400 mg, Oral, 2 times daily melatonin 5 mg, Oral, Nightly pravastatin (PRAVACHOL) 80 mg, Oral, Daily rivaroxaban (Xarelto) 20 MG tablet TAKE 1 TABLET BY MOUTH EVERY MORNING WITH BREAKFAST sennosides (SENOKOT) 8.6 mg, Oral, Nightly traZODone (DESYREL) 50 mg, Oral, Nightly PRN, Patient states she takes most nights venlafaxine XR (EFFEXOR XR) 150 mg, Oral, Daily with breakfast, Do not crush or chew. venlafaxine XR (EFFEXOR XR) 75 mg, Oral, Nightly, Do not crush or chew. Scheduled Meds:cefTRIAXone, 1,000 mg, IntraVENous, q24h cyanocobalamin, 500 mcg, Oral, Daily [Held by provider] insulin glargine, 13 Units, SubCUTAneous, BID insulin lispro, 0-6 Units, SubCUTAneous, TID WC And insulin lispro, 0-6 Units, SubCUTAneous, Nightly losartan, 25 mg, Oral, Daily magnesium oxide, 400 mg, Oral, BID melatonin, 5 mg, Oral, Nightly pravastatin, 80 mg, Oral, Daily rivaroxaban, 20 mg, Oral, Daily with breakfast sennosides, 1 tablet, Oral, Nightly stomahesive in petrolatum, , Topical, q8h venlafaxine XR, 150 mg, Oral, Daily with breakfast venlafaxine XR, 75 mg, Oral, Nightly Continuous Infusions:dextrose 5 % and sodium chloride 0.45 %, 100 mL/hr, Last Rate: 100 mL/hr (10/20/24 [facility]) PRN Meds:PRN medications: acetaminophen OR acetaminophen, dextrose, dextrose, glucagon (rDNA), glucose, haloperidol lactate, ipratropium-albuterol, ondansetron ODT OR ondansetron, polyethylene glycol (PEG) 3350, potassium chloride CR, stomahesive in petrolatum, traZODone Diagnostic Workup: I reviewed pertinent Laboratory results, Radiographic results, and Other Clinical Notes at the time of today's encounter. Labs: No components found for: "LABA1C" No components found for: "EAG" Lab Results Component Value Date NA 136 10/20/2024 K 4.0 10/20/2024 CL 108 (H) 10/20/2024 CO2 22 (L) 10/20/2024 BUN 11 10/20/2024 CREATININE 0.77 10/20/2024 GLUCOSE 56 (L) 10/20/2024 CALCIUM 9.6 10/20/2024 Lab Results Component Value Date CHOL 187 07/01/2022 CHOL 207 (A) 06/09/2020 Lab Results Component Value Date TRIG 449 (H) 07/01/2022 TRIG 204 (A) 06/09/2020 Lab Results Component Value Date HDL 33 (L) 07/01/2022 HDL 38 (L) 06/09/2020 Lab Results Component Value Date LDLCALC 07/01/2022 Comment: Calculated LDL invalid, triglycerides >400 mg/dl No results found for: "VLDL" Lab Results Component Value Date CHOLHDLRATIO 6 07/01/2022 CHOLHDLRATIO 5 06/09/2020 No results found for: "QKCW83SML" No results found for: "TSH", "Q4EWJED", "D1ECOSJ", "THYROIDAB" Radiology reportsas per the Radiologist Radiology: POCT glucose meter Result Date: 10/19/2024 Performed by: [facility], [address] [place] [place] [address] CLIA ID: [id number] POCT glucose meter Result Date: 10/19/2024 Performed by: [facility], [address] [place] [address] CLIA ID: [id number] POCT glucose meter Result Date: 10/19/2024 Performed by: [facility], [address] [place] [address] CLIA ID: [id number] POCT glucose meter Result Date: 10/19/2024 Performed by: [facility], [address] [place] [address] CLIA ID: [id number] POCT glucose meter Result Date: 10/19/2024 Performed by: [facility] [place] [facility], [address] [place] [address], [place] [address] CLIA ID: [id number] POCT glucose meter Result Date: 10/19/2024 Performed by: [facility] [place] [facility], [address] [place] [address], [place] [address] CLIA ID: [id number] POCT glucose meter Result Date: 10/19/2024 [facility]formed by: [facility] [place] [facility], [address] [place] [address], [place] [address] CLIA ID: [id number] POCT glucose meter Result Date: 10/19/2024 Performed by: [facility] [place] [facility], [address] [place] [address], [place] [address] CLIA ID: [id number] POCT glucose meter Result Date: 10/19/2024 Performed by: [facility], [address] [place] [address], [place] [address] CLIA ID: [id number] ECG 12 lead Sinus rhythm Short NC interval Left axis deviation Electronically Signed On 10-19-2024 01:47:54 EST by Marbin Ambrose POCT glucose meter Result Date: 10/18/2024 [facility]formed by: [facility] [facility], [address] [place] [address], [place] [address] CLIA ID: [id number] POCT glucose meter Result Date: 10/18/2024 Performed by: [facility], [address] [place] [address], [place] [address] CLIA ID: [id number] CT head wo IV contrast Result Date: 10/18/2024 [facility] 1945 [id number] Exam Date/Time: 10/18/2024 19:39 Procedure: CT HEAD WO IV CONTRAST Ordering Provider: MARIE TYLER Reason For Exam: possible fall CT HEAD WITHOUT CONTRAST CLINICAL HISTORY: possible fall COMPARISON: 11/29/2019 TECHNIQUE: Helical CT of the brain without contrast. Dose reduction was employed with automated exposure control. FINDINGS: Acute Findings: No hemorrhage, mass, or infarct. Chronic Changes: Scattered patchy foci of white matter hypoattenuation, most likely mild chronic microvascular ischemic changes. Ventricles and sulci: Moderate generalized brain parenchymal volume loss with proportionate ventricular enlargement. Other: The skull, included paranasal sinuses and orbits are normal. No intracranial traumatic injuries. Report Dictated on Electronically Signed By: Mónica Ly MD Electronically Signed Date/Time: 10/18/2024 8:[address] cervical spine wo IV contrast Result Date: 10/18/2024 [facility] 1945 [id number] Exam Date/Time: 10/18/2024 19:39 Procedure: CT CERVICAL SPINE WO IV CONTRAST Ordering Provider: MARIE TYLER Reason For Exam: possible fall EXAMINATION: CT CERVICAL SPINE WO IV CONTRAST CLINICAL HISTORY: possible fall COMPARISON: None TECHNIQUE: Thin isotropic axial images were obtained from the skull base to the upper thoracic spine without intravenous contrast. Dose reduction was employed with automated exposure control. FINDINGS: Craniocervical Junction: Ganglion cyst in the odontoid process of C2. Degenerative changes of the atlantodental and atlantoaxial joints. Alignment: No traumatic malalignment. Vertebrae: No acute fracture or traumatic malalignment. No aggressive osseous lesions. Severe intervertebral disc height loss with endplate spurring at multiple levels, most pronounced C4. Soft Tissues: No acute abnormality. There are atherosclerotic calcifications at the carotid bifurcations. Canal and Foramina: Estimated moderate spinal stenosis at C4-5 and mild spinal stenosis at other levels. No fracture or traumatic malalignment. Multilevel cervical spondylosis. Estimated moderate spinal stenosis at C4-5. Report Dictated on Electronically Signed By: Mónica Ly MD Electronically Signed Date/Time: 10/18/2024 8:27 PM EST POCT glucose meter Result Date: 10/18/2024 Performed by: [facility], [address] [place] [address] CLIA ID: [id number] POCT glucose meter Result Date: 10/18/2024 Performed by: [facility], [address] [place] [address] CLIA ID: [id number] History/Other: 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 Depression History of blood transfusion Hyperlipidemia Hypertension Type II or unspecified type diabetes mellitus without mention of complication, not stated as uncontrolled (HCC) Past Surgical History: Past Surgical History: Procedure Laterality Date BREAST LUMPECTOMY Left BREAST LUMPECTOMY Left 2013 s/p radiation as well CATARACT EXTRACTION W/ INTRAOCULAR LENS IMPLANT Bilateral 10/2015, 12/2015 SECTION (HISTORICAL) CHOLECYSTECTOMY DILATION AND CURETTAGE OF UTERUS FEMUR FRACTURE SURGERY Right 11/30/2019 HIP ARTHROPLASTY Right 01/21/2020 conversion JOINT REPLACEMENT Bilateral ROTATOR CUFF REPAIR Right TOTAL ABDOMINAL HYSTERECTOMY Allergy(ies): Allergies Allergen Reactions Aspirin Hives and Swelling Blotchy, GI, hives Penicillins blotchiness Sulfa Antibiotics Hives and Swelling blotchy Family History: Family History Problem Relation Name Age of Onset Asthma Son Thyroid disease Brother Cancer Mother Cancer Father Thyroid disease Mother Cancer Brother Asthma Son Asthma Son Social History: Social History Tobacco Use Smoking status: Every Day Current packs/day: 0.75 Types: Cigarettes Smokeless tobacco: Never Substance Use Topics Alcohol use: Yes Alcohol/week: 0.0 standard drinks of alcohol Drug use: No Portions of the information within this encounter were entered using an electronic dictation system. Best attempts were made to edit/proofread the information prior to note completion. Despite the review of information, some errors may remain. If there are questions related to the information contained within the note please contact the signing physician directly. I spent 60 minutes with the pt which involved coordination of care, medical evaluation, review of records, and/or counseling of the pt regarding his/her condition/disease state/prognosis on the date of this note. [facility] 10-20-2024 Consult note Associated Order (s): IP CONSULT TO ENDOCRINOLOGY Department of Internal Medicine Division of Endocrinology, Diabetes, & Metabolism Endocrinology Note Patient Name: Beverly Agee : 1945 AGE: 79 y.o. Room/Bed: N5-555/[facility] B Admission Date: 10/18/2024 Visit Date: 10/20/2024 Reason for Endocrine Consult: Diabetes mellitus type 2, hypoglycemia. Provider/Team Requesting Consult: Darrin Iniguez MD. PCP: NENO IQBAL MD Outpt Analytical Scientist: No ASSESSMENT: #1. Type 2 diabetes mellitus, uncontrolled. #2. Hypoglycemia secondary to infection and insulin administration. #3. Urinary tract infection. PLAN: #1. Continue to monitor blood glucose before meals and at bedtime, will use correction insulin low-dose but starting at 200 mg/dL. #2. Given patient's age and comorbidities strict glycemic control is not recommended. #3. Will hold any standing insulin administration at the moment. #4. Continue with dextrose 5% infusion. #5. Check 8 AM cortisol. ICU goal 140-180 GMF goal 150-200 POCT BG ACHS Hypoglycemia management per protocol Carb controlled diet ANTICIPATED ENDOCRINE HOME GOING RECOMMENDATIONS: Optimized for Discharge from Endocrine standpoint: No Home Going Endocrine Rx Recommendations-- TBD Outpt Follow Up-- TBD SUBJECTIVE/HPI: CHIEF COMPLAINT: Chief Complaint Patient presents with Hypoglycemia Found by ems to have blood sugar in 30's and unresponsive. EMS gave 2 amps of dextrose. 79-year-old female who was brought to the ER after was found unconscious by her neighbor, blood glucose when EMS arrived was in the 30s, upon admission to the ER was 62. Patient has had multiple episodes of hypoglycemia since admission, despite no insulin administration since hospitalization. She has history of type 2 diabetes mellitus diagnosed approximately 5 years ago, currently under managed by her primary care physician Dr. Iqbal. Most current regimen is Basaglar 50 units twice daily and NovoLog 15 units with each meal. Patient does not recall last insulin administration. She uses a DexVoxound G7 CGM, I was able to review the data, and it shows hypoglycemia between 12 and 6 AM today. Blood glucose was in the 50s and 60s. Denies previous history of microvascular complications, no history of chronic kidney disease, she does have history of stroke, no history of myocardial infarction. Currently has a good appetite, her son is at bedside, which has aided in the history. Type of DM: 2 Onset of DM: 5 years ago Home DM Medication Regimen: Basaglar 50 units twice daily, NovoLog 15 units 3 times daily. DM control (last A1c/glucose data): Lab Results Component Value Date HGBA1C 10.8 (H) 10/19/2024 Glucose Date/Time Value Ref Range Status 10/20/2024 11:45 AM 159 (H) 70 - 100 mg/dL Final 10/20/2024 07:47 AM 80 70 - 100 mg/dL Final 10/19/2024 08:26 PM 157 (H) 70 - 100 mg/dL Final 10/19/2024 05:00 PM 105 (H) 70 - 100 mg/dL Final 10/19/2024 11:47 AM 93 70 - 100 mg/dL Final 10/19/2024 09:04 AM 97 70 - 100 mg/dL Final Review of Systems ROS negative except for those mentioned in HPI. OBJECTIVE: Vitals: 10/18/24 2347 10/19/24 0830 10/19/24201110/20/24 0745 BP: 128/56 147/71 123/95 139/79 BP Location: Right arm Right arm Patient Position: Sitting Lying Pulse: 60 62 66 62 Resp: 18 20 16 16 Temp: 36.1 C (96.9 F) 36.1 C (97 F) 36.9 C (98.4 F) 36.3 C (97.4 F) TempSrc: Temporal Temporal Temporal Temporal SpO2: 100% 94% 95% 98% Weight: 178 lb 4.8 oz (80.9 kg) Height: 5' 3" (1.6 m) Physical Exam Vitals reviewed. Constitutional: Appearance: Normal appearance. HENT: Head: Normocephalic and atraumatic. Mouth/Throat: Mouth: Mucous membranes are moist. Eyes: Extraocular Movements: Extraocular movements intact. Cardiovascular: Rate and Rhythm: Normal rate and regular rhythm. Heart sounds: Normal heart sounds. Pulmonary: Effort: Pulmonary effort is normal. Breath sounds: Normal breath sounds. Abdominal: General: Bowel sounds are normal. Palpations: Abdomen is soft. Musculoskeletal: Right lower leg: No edema. Left lower leg: No edema. Skin: General: Skin is warm. Neurological: General: No focal deficit present. Mental Status: She is alert and oriented to person, place, and time. Psychiatric: Mood and Affect: Mood normal. Behavior: Behavior normal. 24 hour intake/output: Intake/Output Summary (Last 24 hours) at 10/20/2024 1452 Last data filed at 10/20/2024 1257 Gross per 24 hour Intake 1766.67 ml Output 1900 ml Net -133.33 ml Diet: Adult diet Regular; 5 carb choices (75 gm/meal) Medications (as per EMR): HomeMeds: Current Outpatient Medications Medication Instructions cholecalciferol (Vitamin D3) 25 MCG (1000 UT) tablet Oral, Daily cyanocobalamin (VITAMIN B-12) 500 mcg, Oral, Daily Drug [place] Unifine Pentips Plus 32G X 4 MM misc use 1 (ONE) needle FOUR TIMES DAILY famotidine (PEPCID) 20 mg, Oral, 2 times daily PRN fenofibrate (TRICOR) 54 mg, Oral, Daily insulin glargine (LANTUS) 13 Units, SubCUTAneous, 2 times daily Insulin Lispro (Humalog) 100 UNIT/ML solution injection Dosage Start Date End Date Remaining doses
0-18 Units 3 times daily (with meals) High Dose Correction AlgorithmGlucose: Dose: LESS than 139 No [id number] ipratropium-albuterol (Duo-Neb) 0.5-2.5 mg/3 mL nebulizer solution 3 mL, Nebulization, 2 times daily PRN losartan (COZAAR) 25 mg, Oral, Daily magnesium oxide (MAG-OX) 400 mg, Oral, 2 times daily melatonin 5 mg, Oral, Nightly pravastatin (PRAVACHOL) 80 mg, Oral, Daily rivaroxaban (Xarelto) 20 MG tablet TAKE 1 TABLET BY MOUTH EVERY MORNING WITH BREAKFAST sennosides (SENOKOT) 8.6 mg, Oral, Nightly traZODone (DESYREL) 50 mg, Oral, Nightly PRN, Patient states she takes most nights venlafaxine XR (EFFEXOR XR) 150 mg, Oral, Daily with breakfast, Do not crush or chew. venlafaxine XR (EFFEXOR XR) 75 mg, Oral, Nightly, Do not crush or chew. Scheduled Meds:cefTRIAXone, 1,000 mg, IntraVENous, q24h cyanocobalamin, 500 mcg, Oral, Daily [Held by provider] insulin glargine, 13 Units, SubCUTAneous, BID insulin lispro, 0-6 Units, SubCUTAneous, TID WC And insulin lispro, 0-6 Units, SubCUTAneous, Nightly losartan, 25 mg, Oral, Daily magnesium oxide, 400 mg, Oral, BID melatonin, 5 mg, Oral, Nightly pravastatin, 80 mg, Oral, Daily rivaroxaban, 20 mg, Oral, Daily with breakfast sennosides, 1 tablet, Oral, Nightly stomahesive in petrolatum, , Topical, q8h venlafaxine XR, 150 mg, Oral, Daily with breakfast venlafaxine XR, 75 mg, Oral, Nightly Continuous Infusions:dextrose 5 % and sodium chloride 0.45 %, 100 mL/hr, Last Rate: 100 mL/hr (10/20/24 1257) PRN Meds:PRN medications: acetaminophen OR acetaminophen, dextrose, dextrose, glucagon (rDNA), glucose, haloperidol lactate, ipratropium-albuterol, ondansetron ODT OR ondansetron, polyethylene glycol (PEG) 3350, potassium chloride CR, stomahesive in petrolatum, traZODone Diagnostic Workup: I reviewed pertinent Laboratory results, Radiographic results, and Other Clinical Notes at the time of today's encounter. Labs: No components found for: "LABA1C" No components found for: "EAG" Lab Results Component Value Date NA 136 10/20/2024 K 4.0 10/20/2024 CL 108 (H) 10/20/2024 CO2 22 (L) 10/20/2024 BUN 11 10/20/2024 CREATININE 0.77 10/20/2024 GLUCOSE 56 (L) 10/20/2024 CALCIUM 9.6 10/20/2024 Lab Results Component Value Date CHOL 187 07/01/2022 CHOL 207 (A) 06/09/2020 Lab Results Component Value Date TRIG 449 (H) 07/01/2022 TRIG 204 (A) 06/09/2020 Lab Results Component Value Date HDL 33 (L) 07/01/2022 HDL 38 (L) 06/09/2020 Lab Results Component Value Date LDLCALC 07/01/2022 Comment: Calculated LDL invalid, triglycerides >400 mg/dl No results found for: "VLDL" Lab Results Component Value Date CHOLHDLRATIO 6 07/01/2022 CHOLHDLRATIO 5 06/09/2020 No results found for: "SPWV66VOC" No results found for: "TSH", "Q2EFRLB", "U9BCCEZ", "THYROIDAB" Radiology reportsas per the Radiologist Radiology: POCT glucose meter Result Date: 10/19/2024 Performed by: [facility] [place] [facility], [address] [place] [address], [place] [address] CLIA ID: [id number] POCT glucose meter Result Date: 10/19/2024 Performed by: [facility], [address] [place] [address], [place] [address] CLIA ID: [id number] POCT glucose meter Result Date: 10/19/2024 Performed by: [facility] [place] [facility], [address] [place] [address], [place] [address] CLIA ID: [id number] POCT glucose meter Result Date: 10/19/2024 Performed by: [facility] [place] [facility], [address] [place] [address], [place] [address] CLIA ID: [id number] POCT glucose meter Result Date: 10/19/2024 Performed by: [facility], [address] [place] [address], [place] [address] CLIA ID: [id number] POCT glucose meter Result Date: 10/19/2024 Performed by: [facility], [address] [place] [address], [place] [address] CLIA ID: [id number] POCT glucose meter Result Date: 10/19/2024 Performed by: [facility] [place] [facility], [address] [place] [address], [place] [address] CLIA ID: [id number] POCT glucose meter Result Date: 10/19/2024 Performed by: [facility] [place] [facility], [address] [place] [address], [place] [address] CLIA ID: [id number] POCT glucose meter Result Date: 10/19/2024 Performed by: [facility] [place] [facility], [address] [place] [address], [place] [address] CLIA ID: [id number] ECG 12 lead Sinus rhythm Short NC interval Left axis deviation Electronically Signed On 10-19-2024 01:47:54 EST by Marbin Ambrose POCT glucose meter Result Date: 10/18/2024 Performed by: [facility] [place] [facility], [address] [place] [address], [place] [address] CLIA ID: [id number] POCT glucose meter Result Date: 10/18/2024 Performed by: [facility], [address] [place] [address] CLIA ID: [id number] CT head wo IV contrast Result Date: 10/18/2024 Patient Name: BEVERLY AGEE : 1945 Exam Date/Time: 10/18/2024 19:39 Procedure: CT HEAD WO IV CONTRAST Ordering Provider: MARIE TYLER Reason For Exam: possible fall CT HEAD WITHOUT CONTRAST CLINICAL HISTORY: possible fall COMPARISON: 11/29/2019 TECHNIQUE: Helical CT of the brain without contrast. Dose reduction was employed with automated exposure control. FINDINGS: Acute Findings: No hemorrhage, mass, or infarct. Chronic Changes: Scattered patchy foci of white matter hypoattenuation, most likely mild chronic microvascular ischemic changes. Ventricles and sulci: Moderate generalized brain parenchymal volume loss with proportionate ventricular enlargement. Other: The skull, included paranasal sinuses and orbits are normal. No intracranial traumatic injuries. Report Dictated on Electronically Signed By: Mónica Ly MD Electronically Signed Date/Time: 10/18/2024 8:[address] cervical spine wo IV contrast Result Date: 10/18/2024 Patient Name: BEVERLY AGEE : 1945 Exam Date/Time: 10/18/2024 19:39 Procedure: CT CERVICAL SPINE WO IV CONTRAST Ordering Provider: MARIE TYLER Reason For Exam: possible fall EXAMINATION: CT CERVICAL SPINE WO IV CONTRAST CLINICAL HISTORY: possible fall COMPARISON: None TECHNIQUE: Thin isotropic axial images were obtained from the skull base to the upper thoracic spine without intravenous contrast. Dose reduction was employed with automated exposure control. FINDINGS: Craniocervical Junction: Ganglion cyst in the odontoid process of C2. Degenerative changes of the atlantodental and atlantoaxial joints. Alignment: No traumatic malalignment. Vertebrae: No acute fracture or traumatic malalignment. No aggressive osseous lesions. Severe intervertebral disc height loss with endplate spurring at multiple levels, most pronounced C4. Soft Tissues: No acute abnormality. There are atherosclerotic calcifications at the carotid bifurcations. Canal and Foramina: Estimated moderate spinal stenosis at C4-5 and mild spinal stenosis at other levels. No fracture or traumatic malalignment. Multilevel cervical spondylosis. Estimated moderate spinal stenosis at C4-5. Report Dictated on Electronically Signed By: Mónica Ly MD Electronically Signed Date/Time: 10/18/2024 8:27 PM EST POCT glucose meter Result Date: 10/18/2024 [facility]: [facility], [address] [place] [address] CLIA ID: [id number] POCT glucose meter Result Date: 10/18/2024 Performed by: [facility], [address] [place] [address] CLIA ID: [id number] History/Other: 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 Depression History of blood transfusion Hyperlipidemia Hypertension Type II or unspecified type diabetes mellitus without mention of complication, not stated as uncontrolled (HCC) Past Surgical History: Past Surgical History: Procedure Laterality Date BREAST LUMPECTOMY Left BREAST LUMPECTOMY Left 2012 s/p radiation as well CATARACT EXTRACTION W/ INTRAOCULAR LENS IMPLANT Bilateral 10/2015, 12/2015 SECTION (HISTORICAL) CHOLECYSTECTOMY DILATION AND CURETTAGE OF UTERUS FEMUR FRACTURE SURGERY Right 11/30/2019 HIP ARTHROPLASTY Right 01/21/2020 conversion JOINT REPLACEMENT Bilateral ROTATOR CUFF REPAIR Right TOTAL ABDOMINAL HYSTERECTOMY Allergy(ies): Allergies Allergen Reactions Aspirin Hives and Swelling Blotchy, GI, hives Penicillins blotchiness Sulfa Antibiotics Hives and Swelling blotchy Family History: Family History Problem Relation Name Age of Onset Asthma Son Thyroid disease Brother Cancer Mother Cancer Father Thyroid disease Mother Cancer Brother Asthma Son Asthma Son Social History: Social History Tobacco Use Smoking status: Every Day Current packs/day: 0.75 Types: Cigarettes Smokeless tobacco: Never Substance Use Topics Alcohol use: Yes Alcohol/week: 0.0 standard drinks of alcohol Drug use: No Portions of the information within this encounter were entered using an electronic dictation system. Best attempts were made to edit/proofread the information prior to note completion. Despite the review of information, some errors may remain. If there are questions related to the information contained within the note please contact the signing physician directly. I spent 60 minutes with the pt which involved coordination of care, medical evaluation, review of records, and/or counseling of the pt regarding his/her condition/disease state/prognosis on the date of this note. Associated Order(s): IP CONSULT TO SCHEDULER Pt does not meet criteria for bedside, in-patient Survival Skills Diabetes Education; Criteria includes the following; Newly diagnosed Diabetes and/or pre-existing Diabetes and new to insulin therapy. Out-patient Diabetes Self-Management Education (DSME) is appropriate for this patient: [facility] [place]: Endocrinology [phone] Associated Order(s): IP CONSULT TO GERIATRICS Images from the original note were not included. [facility] Inpatient Consult Service Admission Date: 10/18/2024 Admission Status: INPATIENT Reason for Appointment Chief Complaint Patient presents with Hypoglycemia Found by ems to have blood sugar in 30's and unresponsive. EMS gave 2 amps of dextrose. Geriatrics consulted for Falls. Concern for worsening memory, failure to thrive Assessment Principal Problem: Hypoglycemia Plan During this encounter, I spent 55 minutes -Reviewing previous notes, -Reviewing labs, -Documenting clinical information in the patients electronic record, -Coordination of care for the patient, and -Performing a medically appropriate exam and/or evaluation. Fall -Multiple risk factors including hypoglycemia, weakness, chronic pain, cognitive deficits, diabetes, and acute illness -Continue PT/OT as able while inpatient -Vitamin D pending -Check orthostatic vital signs as able -Medications with associated fall risk include:[facility] need [facility]. Cognitive impairment -May need increased supervision with regard to medications. -Appointment information for [facility] included in discharge paperwork. Vitamin D deficiency -last Vitamin D checked in November and was low. -Recheck vitamin d Delirium Predisposing factors for this patient include: advanced age, cognitive impairment Precipitating factors for this patient include: infection, hypoglycemia -Delirium protocol - Continue evidence-based nonpharmacologic interventions for prevention and treatment of delirium: - redirect/reorient/reassure frequently - avoid restraints and instead utilize sitter as needed for safety - early mobilization as medically appropriate, OOB for meals as able - have patient use glasses and hearing aides - use familiar objects (family photos and items from home) - sleep hygiene, limit nighttime care to promote sleep/wake cycle - hydrate and encourage PO intake when medically appropriate - minimize/camouflage lines and tethers as able - minimize narcotics as long as pain is adequately controlled - avoid benzos and anticholinergic medications -Avoid antipsychotics unless patient is a danger to themselves or others. -Encourage PO intake, time up in chair, family visits, supervised ambulation, and sleep hygiene -If agitated, assess for and consider treating for pain -Monitor for constipation/urinary retention Polypharmcy -Dispense history reviewed. No fills listed after 11/2023. Will need to clarify which pharmacy she is using. -[facility] Subjective: HPI 79 y.o. year-old female presented from home for altered mental status. Found by her neighbor unresponsive. EMS reported that her blood sugar was in the 30s on arrival. Dextrose was administered and her mentation improved. Urinalysis was positive for nitrites and showed significant pyuria. Urine culture grew E. coli that is pansensitive. CT head showed no acute findings. Mild chronic microvascular ischemic changes noted. CT cervical spine showed no fracture or traumatic malalignment. Glucose was 25 on 10/19 improved to 157 on fingerstick.. Hemoglobin A1c was 10.8. Fingerstick glucose this morning was 80. Per progress note yesterday from primary team family sets up insulin for her. Per primary team staff reported confusion overnight. Started on ceftriaxone yesterday. Per urine culture the E. coli is sensitive to ceftriaxone. She is known to the geriatric medicine inpatient consult service that she was last seen by our service in November of last year. Collateral history obtained from NA. Says that her son said she was here because her sugar was "out of control". Her son helps her set up her meds and her insulin. Admits that she is having trouble remembering things at this time. Her pharmacy is [facility]. Quick Cognitive Screen (QCS): Positive QCS Intervention Patient Safety: Maintain visualization, Curtain Open / Maintain privacy Nursing Delirium Screen (Nu-Desc): Nursing Delirium Symptom Checklist Total Score: 1 Known to the [facility]? No Allergies Allergen Reactions Aspirin Hives and Swelling Blotchy, GI, hives Penicillins blotchiness Sulfa Antibiotics Hives and Swelling blotchy Medications reviewed in hospital records. 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 Depression History of blood transfusion Hyperlipidemia Hypertension Type II or unspecified type diabetes mellitus without mention of complication, not stated as uncontrolled ([facility]) Past Surgical History: Procedure Laterality Date BREAST LUMPECTOMY Left BREAST LUMPECTOMY Left 2012 s/p radiation as well CATARACT EXTRACTION W/ INTRAOCULAR LENS IMPLANT Bilateral 10/2015, 12/2015 SECTION (HISTORICAL) CHOLECYSTECTOMY DILATION AND CURETTAGE OF UTERUS FEMUR FRACTURE SURGERY Right 11/30/2019 HIP ARTHROPLASTY Right 01/21/2020 conversion JOINT REPLACEMENT Bilateral ROTATOR CUFF REPAIR Right TOTAL ABDOMINAL HYSTERECTOMY Social History Tobacco Use Smoking status: Every Day Current packs/day: 0.75 Types: Cigarettes Smokeless tobacco: Never Substance Use Topics Alcohol use: Yes Alcohol/week: 0.0 standard drinks of alcohol Present at visit: patient Marital status: Children: 3 sons Living arrangement: Lives alone Household safety problems: Memory loss Driving safety concerns: No longer drives Elder abuse: Community resources: . Healthcare Power of Director Investor Relations: Yes Living Will: Unknown Code Status: DNR-CCA Family History Family History Problem Relation Name Age of Onset Asthma Son Thyroid disease Brother Cancer Mother Cancer Father Thyroid disease Mother Cancer Brother Asthma Son Asthma Son Family Status Relation Name Status Son Alive Brother Mother Father Brother Son Alive Son Alive Sister No partnership data on file Review of Systems Respiratory: Negative for shortness of breath. Genitourinary: Negative for dysuria. Functional Status Prior to Admission (I: Independent, A: Assisted, D: Dependent) ADLs I A D Notes Bathing [] [x] [] Dressing [x] [] [] Toileting [x] [] [] Transfers [x] [] [] Feeding [x] [] [] Ambulation [] [] [] Assistive devices: straight cane and walker IADLs I A D Telephone [] [] [] Transportation [] [] [x] No longer drives. Shopping [] [x] [] Meal prep [] [x] [] Housework [] [x] [] Medications [] [x] [] Son does Finances [] [x] [] Son does Objective: BP 139/79 Pulse 62 Temp 36.3 C (97.4 F) (Temporal) Resp 16 Ht 5' 3" (1.6 m) Wt 178 lb 4.8 oz (80.9 kg) SpO2 98% BMI 31.58 kg/m Physical Exam Constitutional: General: She is not in acute distress. Cardiovascular: Rate and Rhythm: Normal rate. Pulses: Radial pulses are 2+ on the right side and 2+ on the left side. Pulmonary: Effort: Pulmonary effort is normal. No respiratory distress. Abdominal: General: Bowel sounds are normal. Palpations: Abdomen is soft. Musculoskeletal: Right lower leg: Edema present. Left lower leg: Edema present. Skin: General: Skin is warm and dry. Neurological: Mental Status: She is alert. Psychiatric: Cognition and Memory: Memory is impaired. 3 item recall/short term memory: not assessed Clock Drawing Test: not assessed Labs and Imaging: Lab Results Component Value Date WBC 10.5 10/20/2024 HGB 13.5 10/20/2024 HCT 40.4 10/20/2024 MCV 86.9 10/20/2024 PLT 226 10/20/2024 Lab Results Component Value Date NA 136 10/20/2024 K 4.0 10/20/2024 CL 108 (H) 10/20/2024 CO2 22 (L) 10/20/2024 BUN 11 10/20/2024 CREATININE 0.77 10/20/2024 GLUCOSE 56 (L) 10/20/2024 CALCIUM 9.6 10/20/2024 PROT 5.9 (L) 10/19/2024 BILITOT 0.3 10/19/2024 ALKPHOS 43 10/19/2024 AST 19 10/19/2024 ALT 7 10/19/2024 Lab Results Component Value Date VITD25 25 (L) 12/14/2023 UA: Lab Results Component Value Date COLORU Yellow 10/18/2024 GLUCOSEU 500 (A) 10/18/2024 UROBILINOGEN Normal 10/18/2024 Susceptibility data from last 90 days. Collected Specimen Info Organism Amoxicillin + Clavulanate Ampicillin ( g/mL) Ampicillin/Sulbactam ( g/mL) Aztreonam ( g/mL) Cefazolin ( g/mL) Cefepime ( g/mL) Ceftriaxone ( g/mL) Ciprofloxacin ( g/mL) 10/18/24 Urine, Clean Catch Escherichia coli S S S S S S S S Collected Specimen Info Organism Gentamicin ( g/mL) Meropenem ( g/mL) Nitrofurantoin ( g/mL) Pipercillin + Tazobactam ( g/mL) Trimethoprim/Sulfa-Methoxazole ( g/mL) 10/18/24 Urine, Clean Catch Escherichia coli S S S S S Pain Management Panel No data to display === 10/18/24 === CT CERVICAL SPINE WO IV CONTRAST - Impression - No fracture or traumatic malalignment. Multilevel cervical spondylosis. Estimated moderate spinal stenosis at C4-5. Report Dictated on Electronically Signed By: Mónica Ly MD Electronically Signed Date/Time: 10/18/2024 8:27 PM EST No results found for this or any previous visit from the past 365 days. Comment: Please note that portions of this report were produced using speech recognition software and may contain errors related to that system including errors in grammar, punctuation, and spelling, as well as words and phrases that may be inappropriate. If there are any questions or concerns please feel free to contact the dictating provider for clarification. Associated Order(s): IP WOUND CARE NURSE CONSULT TO EVAL Images from the original note were not included. [facility] Wound Care CONSULT Note Beverly Agee AGE: 79 y.o. GENDER: female : 1945 Subjective: HISTORY of PRESENT ILLNESS HPI Beverly Agee is a 79 y.o. female who presents for a wound consult. HPI: Ms. Agee is a 79 y.o. female with past medical history below who is admitted with hypoglycemia. Medical history includes prior CVA, breast cancer, atrial fibrillation on Xarelto, DM2, HTN, HLD. Per ED report-patient was found earlier today unresponsive by her neighbor. Wound Care consulted for pressure injury. 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 Depression History of blood transfusion Hyperlipidemia Hypertension Type II or unspecified type diabetes mellitus without mention of complication, not stated as uncontrolled (HCC) PAST SURGICAL HISTORY Past Surgical History: Procedure Laterality Date BREAST LUMPECTOMY Left BREAST LUMPECTOMY Left 2012 s/p radiation as well CATARACT EXTRACTION W/ INTRAOCULAR LENS IMPLANT Bilateral 10/2015, 12/2015 SECTION (HISTORICAL) CHOLECYSTECTOMY DILATION AND CURETTAGE OF UTERUS FEMUR FRACTURE SURGERY Right 11/30/2019 HIP ARTHROPLASTY Right 01/21/2020 conversion JOINT REPLACEMENT Bilateral ROTATOR CUFF REPAIR Right TOTAL ABDOMINAL HYSTERECTOMY FAMILY HISTORY Family History Problem Relation Name Age of Onset Asthma Son Thyroid disease Brother Cancer Mother Cancer Father Thyroid disease Mother Cancer Brother Asthma Son Asthma Son SOCIAL HISTORY Social History Tobacco Use Smoking status: Every Day Current packs/day: 0.75 Types: Cigarettes Smokeless tobacco: Never Substance Use Topics Alcohol use: Yes Alcohol/week: 0.0 standard drinks of alcohol Drug use: No ALLERGIES Allergies Allergen Reactions Aspirin Hives and Swelling Blotchy, GI, hives Penicillins blotchiness Sulfa Antibiotics Hives and Swelling blotchy MEDICATIONS No current facility-administered medications on file prior to encounter. Current Outpatient Medications on File Prior to Encounter Medication Sig Dispense Refill cholecalciferol (Vitamin D3) 25 MCG (1000 UT) tablet Take by mouth daily. cyanocobalamin (Vitamin B-12) 1000 MCG tablet Take 500 mcg by mouth in the morning. [facility] [place] Unifine Pentips Plus 32G X 4 MM misc use 1 (ONE) needle FOUR TIMES DAILY famotidine (Pepcid) 20 MG tablet Take 1 tablet (20 mg) by mouth 2 times daily as needed for heartburn (heartburn). 60 tablet 0 fenofibrate (Tricor) 54 MG tablet Take 1 tablet (54 mg) by mouth daily. 30 tablet 0 insulin glargine (Lantus) 100 UNIT/ML injection Inject 13 Units under the skin 2 times daily. 10 mL 0 Insulin Lispro (Humalog) 100 UNIT/ML solution injection Dosage Start Date End Date Remaining doses 0-18 Units 3 times daily (with meals) High Dose Correction AlgorithmGlucose: Dose: LESS than 139 No [id number] 10 mL 0 ipratropium-albuterol (Duo-Neb) 0.5-2.5 mg/3 mL nebulizer solution Take 3 mL by nebulization 2 times daily as needed for wheezing. 180 mL 11 losartan (Cozaar) 25 MG tablet Take 1 tablet (25 mg) by mouth daily. 30 tablet 0 magnesium oxide (Mag-Ox) 400 (240 Mg) MG tablet Take 1 tablet (400 mg) by mouth 2 times daily. 30 tablet 0 melatonin 5 MG tablet Take 1 tablet (5 mg) by mouth Nightly. 30 tablet 0 pravastatin (Pravachol) 80 MG tablet Take 1 tablet (80 mg) by mouth in the morning. 90 tablet 1 rivaroxaban (Xarelto) 20 MG tablet TAKE 1 TABLET BY MOUTH EVERY MORNING WITH BREAKFAST 90 tablet 1 sennosides (Senokot) 8.6 MG tablet Take 1 tablet (8.6 mg) by mouth Nightly. 30 tablet 11 traZODone (Desyrel) 50 MG tablet Take 50 mg by mouth Nightly as needed for sleep. Patient states she takes most nights venlafaxine XR (Effexor XR) 150 MG 24 hr capsule Take 1 capsule (150 mg) by mouth daily (with breakfast). Do not crush or chew. 30 capsule 0 venlafaxine XR (Effexor XR) 75 MG 24 hr capsule Take 1 capsule (75 mg) by mouth Nightly. Do not crush or chew. 30 capsule 0 REVIEW OF SYSTEMS Pertinent items are noted in HPI. Objective: BP 139/79 Pulse 62 Temp 36.3 C (97.4 F) (Temporal) Resp 16 Ht 5' 3" (1.6 m) Wt 178 lb 4.8 oz (80.9 kg) SpO2 98% BMI 31.58 kg/m PHYSICAL EXAM General appearance: in no apparent distress, alert, and cooperative Skin: warm and dry Pulmonary: Normal effort, no respiratory distress, no cyanosis Sacrum: 2.0cmx2.0cmxUTD. Non-blanchable deep purple discoloration. No openings. No drainage. Periwound fragile Right buttock: 1.0cmx1.0cmx0.2cm. [place] tissue present. Scant serosang drainage. Periwound fragile 10/20/24 LABS CBC: Lab Results Component Value Date WBC 10.5 10/20/2024 HGB 13.5 10/20/2024 HCT 40.4 10/20/2024 MCV 86.9 10/20/2024 PLT 226 10/20/2024 BMP: Lab Results Component Value Date NA 136 10/20/2024 K 4.0 10/20/2024 CL 108 (H) 10/20/2024 CO2 22 (L) 10/20/2024 BUN 11 10/20/2024 CREATININE 0.77 10/20/2024 PT/INR: No results found for: "PROTIME", "INR" Prealbumin: No results found for: PREALBUMIN Albumin:No components found for: LABALBU Sed Rate:No results found for: SEDRATE Micro: No components found for: BC Assessment/Plan: Sacrum: Pressure Injury (DTI) - Clean with soap and water, apply ET mix then leave JUMP IRON MACHINE PRESSER TID and PRN Right buttock: Pressure Injury (Stage 3) - Clean with soap and water, apply ET mix then leave JUMP IRON MACHINE PRESSER TID and PRN P 500 bed Reposition q2hrs Incontinent checks q2hrs Nutritional support Wound Care to follow Recommend to follow up at [facility] Outpatient wound care center after hospital discharge. Any questions or concerns please secure chat "ACH wound/ostomy". Thank you for the consult! I personally obtained the virk and critical portions of the history and physical exam. I reviewed the labs, imaging studies, and electronic medical record. I reviewed the chart documentation and discussed the patient with treatment team members. I have edited the note to reflect my clinical findings and my assessment and plan. Please note, the time of this note does not reflect the time I saw this patient today, but the time of this documentaton. Portions of this note including HPI, ROS, impression/plan, and examination may have been copied forward from admission to today as to provide important historical information essential in contributing to medical decision making. Documentation has been reviewed and edited as necessary to support clinical decision making for today's visit and to reflect my own independent evaluation of this patient. Decision making for today's visit and to reflect my own independent evaluation of this patient. Cosigned by Evan Latham DO at 10/20/2024 4:38 PM EST documented in this encounter [facility] 10-20-2024 Note Patient declined smo yoseph cessation counseling. Accepting of handout with contact information for future reference. [facility] 10-20-2024 Consult note Associated Order (s): IP CONSULT TO SCHEDULER Pt does not meet criteria for bedside, in-patient Survival Skills Diabetes Education; Criteria includes the following; Newly diagnosed Diabetes and/or pre-existing Diabetes and new to insulin therapy. Out-patient Diabetes Self-Management Education (DSME) is appropriate for this patient: [facility] [place]: Endocrinology [phone] [facility] 10-20-2024 Plan of care note Problem: Knowledge Deficit Goal: Patient/family/caregiver demonstrates understanding of disease process, treatment plan, medications, and discharge instructions Outcome: Progressing Problem: Potential for Compromised Skin Integrity Goal: Skin Integrity is Maintained or Improved Outcome: Progressing Goal: Nutritional status is improving Outcome: Progressing Problem: Urinary Incontinence Goal: Perineal skin integrity is maintained or improved Outcome: Progressing Problem: Potential for Falls Goal: I will remain free of falls Outcome: Progressing Problem: Discharge Barriers Goal: My discharge needs are met Outcome: Progressing Problem: Metabolic/Fluid and Electrolytes - Adult Goal: Electrolytes maintained within normal limits Outcome: Progressing Goal: Glucose maintained within prescribed range Outcome: Progressing [facility] 10-20-2024 Note Formatting of this n ote might be different from the original. Continues on IV antibiotics for UTI. Geriatrics and Endocrinology following. May need therapies. TCC will follow for needs. . [facility] 10-20-2024 Note Formatting of this n ote might be different from the original. Continues on IV antibiotics for UTI. Geriatrics and Endocrinology following. May need therapies. TCC will follow for needs. . [facility] 10-20-2024 Note Formatting of this n ote might be different from the original. Received routine Social Work consult. Will follow with interdisciplinary team and provide community resources as needed. [facility] 10-20-2024 Note Formatting of this n ote might be different from the original. Received routine Social Work consult. Will follow with interdisciplinary team and provide community resources as needed. [facility] 10-20-2024 Consult note Associated Order (s): IP CONSULT TO GERIATRICS Images from the original note were not included. [facility] Geriatric Medicine Inpatient Consult Service Admission Date: 10/18/2024 Admission Status: INPATIENT Reason for Appointment Chief Complaint Patient presents with Hypoglycemia Found by ems to have blood sugar in 30's and unresponsive. EMS gave 2 amps of dextrose. Geriatrics consulted for Falls. Concern for worsening memory, failure to thrive Assessment Principal Problem: Hypoglycemia Plan During this encounter, I spent 55 minutes -Reviewing previous notes, -Reviewing labs, -Documenting clinical information in the patients electronic record, -Coordination of care for the patient, and -Performing a medically appropriate exam and/or evaluation. Fall -Multiple risk factors including hypoglycemia, weakness, chronic pain, cognitive deficits, diabetes, and acute illness -Continue PT/OT as able while inpatient -Vitamin D pending -Check orthostatic vital signs as able -Medications with associated fall risk include:[facility]. Cognitive impairment -May need increased supervision with regard to medications. -Appointment information for [facility] included in discharge paperwork. Vitamin D deficiency -last Vitamin D checked in November and was low. -Recheck vitamin d Delirium Predisposing factors for this patient include: advanced age, cognitive impairment Precipitating factors for this patient include: infection, hypoglycemia -Delirium protocol - Continue evidence-based nonpharmacologic interventions for prevention and treatment of delirium: - redirect/reorient/reassure frequently - avoid restraints and instead utilize sitter as needed for safety - early mobilization as medically appropriate, OOB for meals as able - have patient use glasses and hearing aides - use familiar objects (family photos and items from home) - sleep hygiene, limit nighttime care to promote sleep/wake cycle - hydrate and encourage PO intake when medically appropriate - minimize/camouflage lines and tethers as able - minimize narcotics as long as pain is adequately controlled - avoid benzos and anticholinergic medications -Avoid antipsychotics unless patient is a danger to themselves or others. -Encourage PO intake, time up in chair, family visits, supervised ambulation, and sleep hygiene -If agitated, assess for and consider treating for pain -Monitor for constipation/urinary retention Polypharmcy -Dispense history reviewed. No fills listed after 11/2023. Will need to clarify which pharmacy she is using. -[facility] Subjective: HPI 79 y.o. year-old female presented from home for altered mental status. Found by her neighbor unresponsive. EMS reported that her blood sugar was in the 30s on arrival. Dextrose was administered and her mentation improved. Urinalysis was positive for nitrites and showed significant pyuria. Urine culture grew E. coli that is pansensitive. CT head showed no acute findings. Mild chronic microvascular ischemic changes noted. CT cervical spine showed no fracture or traumatic malalignment. Glucose was 25 on 10/19 improved to 157 on fingerstick.. Hemoglobin A1c was 10.8. Fingerstick glucose this morning was 80. Per progress note yesterday from primary team family sets up insulin for her. Per primary team staff reported confusion overnight. Started on ceftriaxone yesterday. Per urine culture the E. coli is sensitive to ceftriaxone. She is known to the geriatric medicine inpatient consult service that she was last seen by our service in November of last year. Collateral history obtained from NA. Says that her son said she was here because her sugar was "out of control". Her son helps her set up her meds and her insulin. Admits that she is having trouble remembering things at this time. Her pharmacy is [facility]. Quick Cognitive Screen (QCS): Positive QCS Intervention Patient Safety: Maintain visualization, Curtain Open / Maintain privacy Nursing Delirium Screen (Nu-Desc): Nursing Delirium Symptom Checklist Total Score: 1 Known to the [facility]? No Allergies Allergen Reactions Aspirin Hives and Swelling Blotchy, GI, hives Penicillins blotchiness Sulfa Antibiotics Hives and Swelling blotchy Medications reviewed in hospital records. 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 Depression History of blood transfusion Hyperlipidemia Hypertension Type II or unspecified type diabetes mellitus without mention of complication, not stated as uncontrolled ([facility]) Past Surgical History: Procedure Laterality Date BREAST LUMPECTOMY Left BREAST LUMPECTOMY Left 2012 s/p radiation as well CATARACT EXTRACTION W/ INTRAOCULAR LENS IMPLANT Bilateral 10/2015, 12/2015 SECTION (HISTORICAL) CHOLECYSTECTOMY DILATION AND CURETTAGE OF UTERUS FEMUR FRACTURE SURGERY Right 11/30/2019 HIP ARTHROPLASTY Right 01/21/2020 conversion JOINT REPLACEMENT Bilateral ROTATOR CUFF REPAIR Right TOTAL ABDOMINAL HYSTERECTOMY Social History Tobacco Use Smoking status: Every Day Current packs/day: 0.75 Types: Cigarettes Smokeless tobacco: Never Substance Use Topics Alcohol use: Yes Alcohol/week: 0.0 standard drinks of alcohol Present at visit: patient Marital status: Children: 3 sons Living arrangement: Lives alone Household safety problems: Memory loss Driving safety concerns: No longer drives Elder abuse: Community resources: . Healthcare Power of Director Investor Relations: Yes Living Will: Unknown Code Status: DNR-CCA Family History Family History Problem Relation Name Age of Onset Asthma Son Thyroid disease Brother Cancer Mother Cancer Father Thyroid disease Mother Cancer Brother Asthma Son Asthma Son Family Status Relation Name Status Son Alive Brother Mother Father Brother Son Alive Son Alive Sister No partnership data on file Review of Systems Respiratory: Negative for shortness of breath. Genitourinary: Negative for dysuria. Functional Status Prior to Admission (I: Independent, A: Assisted, D: Dependent) ADLs I A D Notes Bathing [] [x] [] Dressing [x] [] [] Toileting [x] [] [] Transfers [x] [] [] Feeding [x] [] [] Ambulation [] [] [] Assistive devices: straight cane and walker IADLs I A D Telephone [] [] [] Transportation [] [] [x] No longer drives. Shopping [] [x] [] Meal prep [] [x] [] Housework [] [x] [] Medications [] [x] [] Son does Finances [] [x] [] Son does Objective: BP 139/79 Pulse 62 Temp 36.3 C (97.4 F) (Temporal) Resp 16 Ht 5' 3" (1.6 m) Wt 178 lb 4.8 oz (80.9 kg) SpO2 98% BMI 31.58 kg/m Physical Exam Constitutional: General: She is not in acute distress. Cardiovascular: Rate and Rhythm: Normal rate. Pulses: Radial pulses are 2+ on the right side and 2+ on the left side. Pulmonary: Effort: Pulmonary effort is normal. No respiratory distress. Abdominal: General: Bowel sounds are normal. Palpations: Abdomen is soft. Musculoskeletal: Right lower leg: Edema present. Left lower leg: Edema present. Skin: General: Skin is warm and dry. Neurological: Mental Status: She is alert. Psychiatric: Cognition and Memory: Memory is impaired. 3 item recall/short term memory: not assessed Clock Drawing Test: not assessed Labs and Imaging: Lab Results Component Value Date WBC 10.5 10/20/2024 HGB 13.5 10/20/2024 HCT 40.4 10/20/2024 MCV 86.9 10/20/2024 PLT 226 10/20/2024 Lab Results Component Value Date NA 136 10/20/2024 K 4.0 10/20/2024 CL 108 (H) 10/20/2024 CO2 22 (L) 10/20/2024 BUN 11 10/20/2024 CREATININE 0.77 10/20/2024 GLUCOSE 56 (L) 10/20/2024 CALCIUM 9.6 10/20/2024 PROT 5.9 (L) 10/19/2024 BILITOT 0.3 10/19/2024 ALKPHOS 43 10/19/2024 AST 19 10/19/2024 ALT 7 10/19/2024 Lab Results Component Value Date VITD25 25 (L) 12/14/2023 UA: Lab Results Component Value Date COLORU Yellow 10/18/2024 GLUCOSEU 500 (A) 10/18/2024 UROBILINOGEN Normal 10/18/2024 Susceptibility data from last 90 days. Collected Specimen Info Organism Amoxicillin + Clavulanate Ampicillin ( g/mL) Ampicillin/Sulbactam ( g/mL) Aztreonam ( g/mL) Cefazolin ( g/mL) Cefepime ( g/mL) Ceftriaxone ( g/mL) Ciprofloxacin ( g/mL) 10/18/24 Urine, Clean Catch Escherichia coli S S S S S S S S Collected Specimen Info Organism Gentamicin ( g/mL) Meropenem ( g/mL) Nitrofurantoin ( g/mL) Pipercillin + Tazobactam ( g/mL) Trimethoprim/Sulfa-Methoxazole ( g/mL) 10/18/24 Urine, Clean Catch Escherichia coli S S S S S Pain Management Panel No data to display === 10/18/24 === CT CERVICAL SPINE WO IV CONTRAST - Impression - No fracture or traumatic malalignment. Multilevel cervical spondylosis. Estimated moderate spinal stenosis at C4-5. Report Dictated on Electronically Signed By: Mónica Ly MD Electronically Signed Date/Time: 10/18/2024 8:27 PM EST No results found for this or any previous visit from the past 365 days. Comment: Please note that portions of this report were produced using speech recognition software and may contain errors related to that system including errors in grammar, punctuation, and spelling, as well as words and phrases that may be inappropriate. If there are any questions or concerns please feel free to contact the dictating provider for clarification. [facility] 10-20-2024 Consult note Associated Order (s): IP WOUND CARE NURSE CONSULT TO EVAL Images from the original note were not included. [facility] Wound Care CONSULT Note Beverly Agee AGE: 79 y.o. GENDER: female : 1945 Subjective: HISTORY of PRESENT ILLNESS HPI Beverly Agee is a 79 y.o. female who presents for a wound consult. HPI: Ms. Agee is a 79 y.o. female with past medical history below who is admitted with hypoglycemia. Medical history includes prior CVA, breast cancer, atrial fibrillation on Xarelto, DM2, HTN, HLD. Per ED report-patient was found earlier today unresponsive by her neighbor. Wound Care consulted for pressure injury. 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 Depression History of blood transfusion Hyperlipidemia Hypertension Type II or unspecified type diabetes mellitus without mention of complication, not stated as uncontrolled (HCC) PAST SURGICAL HISTORY Past Surgical History: Procedure Laterality Date BREAST LUMPECTOMY Left BREAST LUMPECTOMY Left 2012 s/p radiation as well CATARACT EXTRACTION W/ INTRAOCULAR LENS IMPLANT Bilateral 10/2015, 12/2015 SECTION (HISTORICAL) CHOLECYSTECTOMY DILATION AND CURETTAGE OF UTERUS FEMUR FRACTURE SURGERY Right 11/30/2019 HIP ARTHROPLASTY Right 01/21/2020 conversion JOINT REPLACEMENT Bilateral ROTATOR CUFF REPAIR Right TOTAL ABDOMINAL HYSTERECTOMY FAMILY HISTORY Family History Problem Relation Name Age of Onset Asthma Son Thyroid disease Brother Cancer Mother Cancer Father Thyroid disease Mother Cancer Brother Asthma Son Asthma Son SOCIAL HISTORY Social History Tobacco Use Smoking status: Every Day Current packs/day: 0.75 Types: Cigarettes Smokeless tobacco: Never Substance Use Topics Alcohol use: Yes Alcohol/week: 0.0 standard drinks of alcohol Drug use: No ALLERGIES Allergies Allergen Reactions Aspirin Hives and Swelling Blotchy, GI, hives Penicillins blotchiness Sulfa Antibiotics Hives and Swelling blotchy MEDICATIONS No current facility-administered medications on file prior to encounter. Current Outpatient Medications on File Prior to Encounter Medication Sig Dispense Refill cholecalciferol (Vitamin D3) 25 MCG (1000 UT) tablet Take by mouth daily. cyanocobalamin (Vitamin B-12) 1000 MCG tablet Take 500 mcg by mouth in the morning. Drug [place] Unifine Pentips Plus 32G X 4 MM misc use 1 (ONE) needle FOUR TIMES DAILY famotidine (Pepcid) 20 MG tablet Take 1 tablet (20 mg) by mouth 2 times daily as needed for heartburn (heartburn). 60 tablet 0 fenofibrate (Tricor) 54 MG tablet Take 1 tablet (54 mg) by mouth daily. 30 tablet 0 insulin glargine (Lantus) 100 UNIT/ML injection Inject 13 Units under the skin 2 times daily. 10 mL 0 Insulin Lispro (Humalog) 100 UNIT/ML solution injection Dosage Start Date End Date Remaining doses 0-18 Units 3 times daily (with meals) High Dose Correction AlgorithmGlucose: Dose: LESS than 139 No [id number] 10 mL 0 ipratropium-albuterol (Duo-Neb) 0.5-2.5 mg/3 mL nebulizer solution Take 3 mL by nebulization 2 times daily as needed for wheezing. 180 mL 11 losartan (Cozaar) 25 MG tablet Take 1 tablet (25 mg) by mouth daily. 30 tablet 0 magnesium oxide (Mag-Ox) 400 (240 Mg) MG tablet Take 1 tablet (400 mg) by mouth 2 times daily. 30 tablet 0 melatonin 5 MG tablet Take 1 tablet (5 mg) by mouth Nightly. 30 tablet 0 pravastatin (Pravachol) 80 MG tablet Take 1 tablet (80 mg) by mouth in the morning. 90 tablet 1 rivaroxaban (Xarelto) 20 MG tablet TAKE 1 TABLET BY MOUTH EVERY MORNING WITH BREAKFAST 90 tablet 1 sennosides (Senokot) 8.6 MG tablet Take 1 tablet (8.6 mg) by mouth Nightly. 30 tablet 11 traZODone (Desyrel) 50 MG tablet Take 50 mg by mouth Nightly as needed for sleep. Patient states she takes most nights venlafaxine XR (Effexor XR) 150 MG 24 hr capsule Take 1 capsule (150 mg) by mouth daily (with breakfast). Do not crush or chew. 30 capsule 0 venlafaxine XR (Effexor XR) 75 MG 24 hr capsule Take 1 capsule (75 mg) by mouth Nightly. Do not crush or chew. 30 capsule 0 REVIEW OF SYSTEMS Pertinent items are noted in HPI. Objective: BP 139/79 Pulse 62 Temp 36.3 C (97.4 F) (Temporal) Resp 16 Ht 5' 3" (1.6 m) Wt 178 lb 4.8 oz (80.9 kg) SpO2 98% BMI 31.58 kg/m PHYSICAL EXAM General appearance: in no apparent distress, alert, and cooperative Skin: warm and dry Pulmonary: Normal effort, no respiratory distress, no cyanosis Sacrum: 2.0cmx2.0cmxUTD. Non-blanchable deep purple discoloration. No openings. No drainage. Periwound fragile Right buttock: 1.0cmx1.0cmx0.2cm. [place] tissue present. Scant serosang drainage. Periwound fragile 10/20/24 LABS CBC: Lab Results Component Value Date WBC 10.5 10/20/2024 HGB 13.5 10/20/2024 HCT 40.4 10/20/2024 MCV 86.9 10/20/2024 PLT 226 10/20/2024 BMP: Lab Results Component Value Date NA 136 10/20/2024 K 4.0 10/20/2024 CL 108 (H) 10/20/2024 CO2 22 (L) 10/20/2024 BUN 11 10/20/2024 CREATININE 0.77 10/20/2024 PT/INR: No results found for: "PROTIME", "INR" Prealbumin: No results found for: PREALBUMIN Albumin:No components found for: LABALBU Sed Rate:No results found for: SEDRATE Micro: No components found for: BC Assessment/Plan: Sacrum: Pressure Injury (DTI) - Clean with soap and water, apply ET mix then leave ESTELITA TID and PRN Right buttock: Pressure Injury (Stage 3) - Clean with soap and water, apply ET mix then leave ESTELITA TID and PRN P 500 bed Reposition q2hrs Incontinent checks q2hrs Nutritional support Wound Care to follow Recommend to follow up at [facility] Outpatient wound care center after hospital discharge. Any questions or concerns please secure chat "ACH wound/ostomy". Thank you for the consult! I personally obtained the virk and critical portions of the history and physical exam. I reviewed the labs, imaging studies, and electronic medical record. I reviewed the chart documentation and discussed the patient with treatment team members. I have edited the note to reflect my clinical findings and my assessment and plan. Please note, the time of this note does not reflect the time I saw this patient today, but the time of this documentaton. Portions of this note including HPI, ROS, impression/plan, and examination may have been copied forward from admission to today as to provide important historical information essential in contributing to medical decision making. Documentation has been reviewed and edited as necessary to support clinical decision making for today's visit and to reflect my own independent evaluation of this patient. Decision making for today's visit and to reflect my own independent evaluation of this patient. Cosigned by Evan Latham DO at 10/20/2024 4:38 PM EST [facility] [employer] Work Phone: 10-20-2024 Plan of care note Problem: Knowledge Deficit Goal: Patient/family/caregiver demonstrates understanding of disease process, treatment plan, medications, and discharge instructions Outcome: Progressing Problem: Potential for Compromised Skin Integrity Goal: Skin Integrity is Maintained or Improved Outcome: Progressing Goal: Nutritional status is improving Outcome: Progressing Problem: Urinary Incontinence Goal: Perineal skin integrity is maintained or improved Outcome: Progressing Problem: Potential for Falls Goal: I will remain free of falls Outcome: Progressing Problem: Discharge Barriers Goal: My discharge needs are met Outcome: Progressing Problem: Metabolic/Fluid and Electrolytes - Adult Goal: Electrolytes maintained within normal limits Outcome: Progressing Goal: Glucose maintained within prescribed range Outcome: Progressing [facility] 10-19-2024 Plan of care note Problem: Potential for Falls Goal: I will remain free of falls Outcome: Progressing Note: Side rails upx2, bed low, brakes on, call light in reach. Problem: Metabolic/Fluid and Electrolytes - Adult Goal: Glucose maintained within prescribed range Outcome: Progressing Flowsheets (Taken 10/19/2024 1017) Glucose maintained within prescribed range: Monitor blood glucose as ordered Assess for signs and symptoms of hyperglycemia and hypoglycemia Administer ordered medications to maintain glucose within target range Assess barriers to adequate nutritional intake and initiate nutrition consult as needed [facility] 10-19-2024 Plan of care note Problem: Knowledge Deficit Goal: Patient/family/caregiver demonstrates understanding of disease process, treatment plan, medications, and discharge instructions Outcome: Progressing Problem: Potential for Compromised Skin Integrity Goal: Skin Integrity is Maintained or Improved Outcome: Progressing Goal: Nutritional status is improving Outcome: Progressing Problem: Urinary Incontinence Goal: Perineal skin integrity is maintained or improved Outcome: Progressing Problem: Potential for Falls Goal: I will remain free of falls Outcome: Progressing Problem: Discharge Barriers Goal: My discharge needs are met Outcome: Progressing [facility] 10-18-2024 Emergency department Note Pt being transported to 5N. No signs of distress, bilateral breaths unlabored. Pt belongings with pt. [facility] 10-18-2024 Emergency department Note Pt being transported to 5N. No signs of distress, bilateral breaths unlabored. Pt belongings with pt. Pt in for transport to Pt in [place] EMERGENCY DEPARTMENT ENCOUNTER Pt Name: Beverly Agee Birthdate 1945 Date of evaluation: 10/18/2024 ED Provider: Melinda Ken DO CHIEF COMPLAINT Chief Complaint Patient presents with Hypoglycemia Found by ems to have blood sugar in 30's and unresponsive. EMS gave 2 amps of dextrose. HISTORY OF PRESENT ILLNESS (Location/Symptom, Timing/Onset, Context/Setting, Quality, Duration, Modifying Factors, Severity) Note limiting factors. I wore appropriate PPE for the entirety of this encounter. HPI Beverly Agee is a 79 y.o. who presents to the emergency department after being found unresponsive by her neighbor. EMS noted that her blood sugar was in the 30s and they administered 2 A of dextrose with improvement. Initially unknown where she was found unresponsive or if there is any concern for head injury. No thinners. Patient denies any pain or concerns at this time. She does still seem somewhat confused but is awake and alert. Patient's son arrived to bedside later explaining that she was found unresponsive in her recliner and there is no concern for injury at this time. He states that she has had multiple episodes in the past where she has been hypoglycemic with decreased responsiveness as well. States that he is not the patient's POA and that is another son who is not currently present. He also reports that placement in a intermediate facility has been discussed in the past and declined. Nursing Notes were reviewed. Limitations to history: Altered mental status/confusion Outside historians: Family son at bedside REVIEW OF SYSTEMS Review of Systems Pertinent positives and negatives as per HPI. 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 Depression History of blood transfusion Hyperlipidemia Hypertension Type II or unspecified type diabetes mellitus without mention of complication, not stated as uncontrolled (HCC) SURGICAL HISTORY Past Surgical History: Procedure Laterality Date BREAST LUMPECTOMY Left BREAST LUMPECTOMY Left 2012 s/p radiation as well CATARACT EXTRACTION W/ INTRAOCULAR LENS IMPLANT Bilateral 10/2015, 12/2015 SECTION (HISTORICAL) CHOLECYSTECTOMY DILATION AND CURETTAGE OF UTERUS FEMUR FRACTURE SURGERY Right 11/30/2019 HIP ARTHROPLASTY Right 01/21/2020 conversion JOINT REPLACEMENT Bilateral ROTATOR CUFF REPAIR Right TOTAL ABDOMINAL HYSTERECTOMY CURRENT MEDICATIONS Current Discharge Medication List CONTINUE these medications which have NOT CHANGED Details cholecalciferol (Vitamin D3) 25 MCG (1000 UT) tablet Take by mouth daily. cyanocobalamin (Vitamin B-12) 1000 MCG tablet Take 500 mcg by mouth in the morning. Drug [place] Unifine Pentips Plus 32G X 4 MM misc use 1 (ONE) needle FOUR TIMES DAILY famotidine (Pepcid) 20 MG tablet Take 1 tablet (20 mg) by mouth 2 times daily as needed for heartburn (heartburn). Qty: 60 tablet, Refills: 0 fenofibrate (Tricor) 54 MG tablet Take 1 tablet (54 mg) by mouth daily. Qty: 30 tablet, Refills: 0 insulin glargine (Lantus) 100 UNIT/ML injection Inject 13 Units under the skin 2 times daily. Qty: 10 mL, Refills: 0 Insulin Lispro (Humalog) 100 UNIT/ML solution injection Dosage Start Date End Date Remaining doses 0-18 Units 3 times daily (with meals) High Dose Correction AlgorithmGlucose: Dose: LESS than 139 No [id number] Qty: 10 mL, Refills: 0 ipratropium-albuterol (Duo-Neb) 0.5-2.5 mg/3 mL nebulizer solution Take 3 mL by nebulization 2 times daily as needed for wheezing. Qty: 180 mL, Refills: 11 losartan (Cozaar) 25 MG tablet Take 1 tablet (25 mg) by mouth daily. Qty: 30 tablet, Refills: 0 magnesium oxide (Mag-Ox) 400 (240 Mg) MG tablet Take 1 tablet (400 mg) by mouth 2 times daily. Qty: 30 tablet, Refills: 0 melatonin 5 MG tablet Take 1 tablet (5 mg) by mouth Nightly. Qty: 30 tablet, Refills: 0 pravastatin (Pravachol) 80 MG tablet Take 1 tablet (80 mg) by mouth in the morning. Qty: 90 tablet, Refills: 1 rivaroxaban (Xarelto) 20 MG tablet TAKE 1 TABLET BY MOUTH EVERY MORNING WITH BREAKFAST Qty: 90 tablet, Refills: 1 sennosides (Senokot) 8.6 MG tablet Take 1 tablet (8.6 mg) by mouth Nightly. Qty: 30 tablet, Refills: 11 traZODone (Desyrel) 50 MG tablet Take 50 mg by mouth Nightly as needed for sleep. Patient states she takes most nights venlafaxine XR (Effexor XR) 150 MG 24 hr capsule Take 1 capsule (150 mg) by mouth daily (with breakfast). Do not crush or chew. Qty: 30 capsule, Refills: 0 venlafaxine XR (Effexor XR) 75 MG 24 hr capsule Take 1 capsule (75 mg) by mouth Nightly. Do not crush or chew. Qty: 30 capsule, Refills: 0 ALLERGIES Aspirin, Penicillins, and Sulfa antibiotics FAMILY HISTORY Family History Problem Relation Name Age of Onset Asthma Son Thyroid disease Brother Cancer Mother Cancer Father Thyroid disease Mother Cancer Brother Asthma Son Asthma Son SOCIAL HISTORY Social History Socioeconomic History Marital status: Tobacco Use Smoking status: Every Day Current packs/day: 0.75 Types: Cigarettes Smokeless tobacco: Never Substance and Sexual Activity Alcohol use: Yes Alcohol/week: 0.0 standard drinks of alcohol Drug use: No Social Drivers of Health Financial Resource Strain: Low Risk (07/04/2021) Received from [facility] Overall Financial Resource Strain (CARDIA) Difficulty of Paying Living Expenses: Not hard at all Food Insecurity: No Food Insecurity (10/19/2024) Hunger Vital Sign Worried About Running Out of Food in the Last Year: Never true Ran Out of Food in the Last Year: Never true Transportation Needs: No Transportation Needs (10/19/2024) PRAPARE - Transportation Lack of Transportation (Medical): No Lack of Transportation (Non-Medical): No Intimate Partner Violence: Not At Risk (10/19/2024) Humiliation, Afraid, Rape, and Kick questionnaire Fear of Current or Ex-Partner: No Emotionally Abused: No Physically Abused: No Sexually Abused: No Housing Stability: Low Risk (10/19/2024) Housing Stability Vital Sign Unable to Pay for Housing in the Last Year: No Number of Times Moved in the Last Year: 1 Homeless in the Last Year: No SCREENINGS [place] Coma Scale Best Eye Response: Spontaneous Best Verbal Response: Oriented Best Motor Response: Follows commands [place] Coma Scale Score: 15 PHYSICAL EXAM ED Triage Vitals Temp Heart Rate Resp BP 10/18/24182710/18/24182710/18/24182710/18/241827 36.3 C (97.4 F) 65 16 (!) 107/49 SpO2 Temp Source Heart Rate Source Patient Position 10/18/24182710/18/24182710/18/24204710/18/242047 100 % Oral Monitor Lying BP Location FiO2 (%) 10/18/241827 -- Right arm Physical Exam PRIMARY SURVEY: Vital signs: reviewed, as documented Airway: patent, patient talking, no hoarse or muffled voice Pulmonary: spontaneous respiration, bilateral breath sounds Cardiovascular: Regular rate, peripheral pulses intact Disability: GCS 14 for confusion gross motor intact upper and lower extremities gross sensory intact upper and lower extremities SECONDARY SURVEY: General: Awake and alert, oriented x2, no acute distress Head: normocephalic, atraumatic, no cephalohematoma or lacerations, no facial deformity Eyes: PERRL, pupils 3 mm b/l, EOMI, no signs of trauma Ears: Grossly normal Nose: no blood in nares bilaterally, no fluid drainage, no septal hematoma Face: midface stable and nontender Mouth: oropharynx clear, no fractured teeth Neck: trachea midline with no masses, no midline tenderness Chest: nontender, no crepitance, lungs CTA bilaterally Abdomen: soft, non-tender, non-distended Pelvis: stable to compression and nontender Musculoskeletal: Right Arm: no obvious deformity, strength and sensation grossly intact, distal pulses intact Left Arm: no obvious deformity, strength and sensation grossly intact, distal pulses intact Right Leg: no obvious deformity, strength and sensation grossly intact, distal pulses intact Left Leg: no obvious deformity, strength and sensation grossly intact, distal pulses intact Back: no midline tenderness, no step-offs Integumentary: warm, dry DIAGNOSTIC RESULTS RADIOLOGY (Per Emergency Physician): Interpretation per the Radiologist below, if available at the time of this note: CT head wo IV contrast Final Result No intracranial traumatic injuries. Report Dictated on Electronically Signed By: Mónica Ly MD Electronically Signed Date/Time: 10/18/2024 8:[address] cervical spine wo IV contrast Final Result No fracture or traumatic malalignment. Multilevel cervical spondylosis. Estimated moderate spinal stenosis at C4-5. Report Dictated on Electronically Signed By: Mónica Ly MD Electronically Signed Date/Time: 10/18/2024 8:27 PM EST LABS: Labs Reviewed COMPREHENSIVE METABOLIC PANEL - Abnormal Result Value SODIUM 139 POTASSIUM 3.4 (*) CHLORIDE 105 CARBON DIOXIDE 26 ANION GAP 8 UREA NITROGEN 20 CREATININE 0.82 GLUCOSE 64 (*) CALCIUM 9.4 AST (SGOT) 16 ALT 8 ALKALINE PHOSPHATASE 43 ALBUMIN 3.2 (*) BILIRUBIN, TOTAL 0.2 TOTAL PROTEIN 6.0 (*) eGFR 73.8 CBC WITH AUTO DIFFERENTIAL - Abnormal Auto WBC 10.2 RBC 4.61 Hemoglobin 13.6 Hematocrit 41.5 MCV 90.0 MCH 29.5 MCHC 32.8 RDW 12.5 Platelets 241 MPV 9.6 nRBC 0.0 Neutrophils Relative 80.3 Lymphocytes Relative 14.0 (*) Monocytes Relative 4.2 (*) Eosinophils Relative 0.2 Basophils Relative 0.3 Immature Grans % 1.0 Neutrophils Absolute 8.2 (*) Lymphocytes Absolute 1.4 Monocytes Absolute 0.4 Eosinophils Absolute 0.0 Basophils Absolute 0.0 Immature Grans Absolute 0.1 (*) COMPLETE URINALYSIS - Abnormal Color, Urine Yellow Clarity, Urine Turbid (*) pH, Urine 6.5 Leukocytes, Urine 500 (*) Nitrite, Urine Positive (*) Protein, Urine 50 (*) Glucose, Urine 500 (*) Bilirubin, Urine Negative Ketones, Urine Negative Urobilinogen, Urine Normal Blood, Urine Negative RBC, Urine 3-5 (*) WBC, Urine >100 (*) Squamous Epithelial, Urine 0-2 Bacteria, Urine Few (*) SPECIFIC GRAVITY OF URINE (NUMERIC) 1.019 POCT GLUCOSE METER UNSOLICITED RESULTS - Abnormal Glucose 296 (*) Narrative: Performed by: [facility], [address] [place] [id number] CLIA ID: [id number] POCT GLUCOSE METER UNSOLICITED RESULTS - Abnormal Glucose 104 (*) Narrative: Performed by: [facility], [address] [place] [id number] CLIA ID: [id number] POCT GLUCOSE METER UNSOLICITED RESULTS - Abnormal Glucose 60 (*) Narrative: Performed by: [facility], [address] [place] [id number] CLIA ID: [id number] HIGH SENSITIVITY TROPONIN, SERIAL BASELINE - Normal Troponin HS Serial Baseline 4 HIGH SENSITIVITY TROPONIN, SERIAL, SECOND TEST - Normal 2h Troponin HS (Serial 2nd Troponin) 6 HIGH SENSITIVITY TROPONIN, SERIAL, THIRD TEST - Normal 4h Troponin HS (Serial 3rd Troponin) 8 POCT GLUCOSE METER UNSOLICITED RESULTS - Normal Glucose 71 Narrative: Performed by: [facility], [address] [place] [id number] CLIA ID: [id number] URINE CULTURE COMPLETE URINALYSIS WITH REFLEX TO CULTURE Narrative: The following orders were created for panel order Urinalysis complete with reflex to Culture. Procedure Abnormality Status --------- ------ Complete Urinalysis[[id number]] Abnormal Final result Please view results for these tests on the individual orders. HEMOGLOBIN A1C COMPREHENSIVE METABOLIC PANEL MAGNESIUM CBC (HEMOGRAM) All other labs were within normal range or not returned as of this dictation. EMERGENCY DEPARTMENT COURSE and DIFFERENTIAL DIAGNOSIS/MDM: Vitals: Vitals: 10/18/24 2146 10/18/24 2256 10/18/24 2320 10/18/24 2347 BP: 129/66 (!) 165/80 (!) 140/75 128/56 BP Location: Patient Position: Pulse: 63 64 66 60 Resp: 18 16 16 18 Temp: 36.1 C (96.9 F) TempSrc: Temporal SpO2: 100% 100% 100% 100% Weight: 80.9 kg (178 lb 4.8 oz) Height: 1.6 m (5' 3") The patient presented with a chief complaint of hypoglycemia and unresponsive episode. Vitals reviewed. The differential diagnosis associated with this patient's presentation includes metabolic derangement, infectious process. Our workup consisted of ordering/reviewing teqco-bp-[id number] glucose which was 71 on arrival following 2 A of D50 for glucose in the 30s an additional amp was given in the ED. Also obtained EKG, CT head and C-spine, and labs. Imaging negative for any traumatic injuries. Labs concerning for nitrite positive UTI on UA. Given ceftriaxone. To be admitted for further evaluation management. Diagnoses as of 10/19/24 0027 Hypoglycemia Urinary tract infection without hematuria, site unspecified External records reviewed: none Diagnostics interpreted by me: none Discussions with other clinicians: Admitting team Chronic conditions impacting care: none Social determinants of health affecting care: none ED Medications managed: Medications cyanocobalamin (Vitamin B-12) tablet 500 mcg (has no administration in time range) insulin glargine (Lantus) injection 13 Units ( SubCUTAneous Dose Auto Held 10/26/24 2100) ipratropium-albuterol (Duo-Neb) 0.5-2.5 mg/3 mL nebulizer solution 3 mL (has no administration in time range) losartan (Cozaar) tablet 25 mg (has no administration in time range) magnesium oxide (Mag-Ox) tablet 400 mg (has no administration in time range) melatonin tablet 5 mg (has no administration in time range) pravastatin (Pravachol) tablet 80 mg (has no administration in time range) rivaroxaban (Xarelto) tablet 20 mg (has no administration in time range) sennosides (Senokot) tablet 8.6 mg (has no administration in time range) traZODone (Desyrel) tablet 50 mg (has no administration in time range) venlafaxine XR (Effexor XR) 24 hr capsule 150 mg (has no administration in time range) venlafaxine XR (Effexor XR) 24 hr capsule 75 mg (has no administration in time range) acetaminophen (Tylenol) tablet 650 mg (has no administration in time range) Or acetaminophen (Tylenol) suppository 650 mg (has no administration in time range) ondansetron ODT (Zofran-ODT) disintegrating tablet 4 mg (has no administration in time range) Or ondansetron (Zofran) injection 4 mg (has no administration in time range) polyethylene glycol (PEG) 3350 (Miralax) packet 17 g (has no administration in time range) Insulin Lispro (Humalog) injection 0-6 Units (has no administration in time range) And Insulin Lispro (Humalog) injection 0-6 Units ( SubCUTAneous Not Given 10/18/245) glucose oral gel 15 g (has no administration in time range) dextrose 50 % solution 12.5 g (has no administration in time range) glucagon (human recombinant) injection 1 mg (has no administration in time range) dextrose 5 % infusion (has no administration in time range) potassium chloride CR (Klor-Con M10) ER tablet 40 mEq (has no administration in time range) cefTRIAXone (Rocephin) 1,000 mg in sodium chloride 0.9 % 50 mL IVPB Mini-Bag Plus (has no administration in time range) dextrose 50 % solution 50 g (50 g IntraVENous Given 10/18/241919) cefTRIAXone (Rocephin) 1,000 mg in sodium chloride 0.9 % 50 mL IVPB Mini-Bag Plus (0 mg IntraVENous Stopped 10/18/242255) Prescription drugs considered: none PROCEDURES: Unless otherwise noted below, none Procedures FINAL IMPRESSION 1. Hypoglycemia 2. Urinary tract infection without hematuria, site unspecified DISPOSITION Admit 10/18/2024 10:01:27 PM PATIENT REFERRED TO: No follow-up provider specified. DISCHARGE MEDICATIONS: Current Discharge Medication List (Comment: Please note this report has been produced using speech recognition software and may contain errors related to that system including errors in grammar, punctuation, and spelling, as well as words and phrases that may be inappropriate. If there are any questions or concerns please feel free to contact the dictating provider for clarification.) Melinda Ken DO (electronically signed) Emergency Medicine Provider Melinda Ken DO Resident 10/19/24 0033 Cosigned by Wilber Marie DO at 10/19/2024 1:14 AM EST Emergency Department Encounter [facility] 5N Patient: Beverly Agee : 1945 Date of Evaluation: 10/18/2024 ED Supervising Physician: Wilber Marie DO I personally saw Beverly Agee and made/approved the management plan and take responsibility for the patient management. This will serve as my Supervisory note and shared attestation. I did perform a substantive portion of the visit including all aspects of the Medical Decision Making. I wore appropriate PPE for the entirety of this encounter. In brief, Beverly Agee is a 79 y.o. that presents to the emergency department found unresponsive by neighbor. EMS reported her glucose was in the 30s, given 2 A of dextrose with improvement of her mentation, transferred to our facility for evaluation. Patient states she does not eat or drink much, does live alone. Does not remember what happened today. Does not think she took too much of her insulin. Family member states this has happened multiple times in the past. Son does not think that she takes care of herself. Focused exam: Alert and oriented 4, no acute distress, nontoxic appearing, Pulm: clear to auscultation bilaterally, Cardiac: regular rate and rhythm, Abdomen: soft nontender, Neuro: no focal motor or sensory deficits. Brief ED course/MDM: Patient presents with unresponsive episode due to hypoglycemia. Lab work shows glucose 64, potassium 3.4, given at 30 amp of dextrose with improvement of the glucose to 296. The rest of the lab work showed no leukocytosis, did have a nitrite positive urinary tract infection. Started on Rocephin, will admit for strict glucose monitoring, continued IV antibiotics, PT OT evaluation possible placement Diagnostics interpreted by me: I personally discussed the patient's management with other clinicians: All diagnostic, treatment, and disposition decisions were made by myself in conjunction with the resident. I also supervised virk portions of any procedures performed by the Resident. For all further details of the patient's emergency department visit, please see their documentation. (Comment: Please note this report has been produced using speech recognition software and may contain errors related to that system including errors in grammar, punctuation, and spelling, as well as words and phrases that may be inappropriate. If there are any questions or concerns please feel free to contact the dictating provider for clarification.) DO SHRUTI [employer] Wilber Marie, DO 10/19/24 0421 documented in this encounter [facility] 10-18-2024 Emergency department Note Pt in for transport to [facility] 10-18-2024 History and physical note Attending History and Physical Admit Date: 10/18/2024 PCP: NENO IQBAL MD CHIEF COMPLAINT: Unresponsive, hypoglycemia Reason for Admission: Hypoglycemic episode, failure to thrive with physical debilitation History Obtained From: patient, EMR HISTORY OF PRESENT ILLNESS: Beverly is a 79 y.o. female with past medical history below who presents with chief complaint listed above. Medical history includes prior CVA, breast cancer, atrial fibrillation on Xarelto, DM2, HTN, HLD. Per ED report-patient was found earlier today unresponsive by her neighbor. EMS called to assess who noted patient's blood sugar was in 30s-dextrose administration improved cognition and responsiveness. At time of physical assessment patient is awake, poor historian and is unable to provide significant history. Initial ED workup notes potassium at 3.4. Hypoglycemic with glucose at 64-improved with initial management. Initial troponin 4-6 on recheck. WBCs WNL at 10.2. UA positive for bacteria, WBCs, nitrite and leukocyte esterase consistent with infection. ECG showing sinus rhythm, HR of 60 bpm. Vital signs show initial hypotension-improved with initial treatment. HR in 60s. Patient is afebrile. Will admit for further evaluation and management. -CT head Acute Findings: No hemorrhage, mass, or infarct. Chronic Changes: Scattered patchy foci of white matter hypoattenuation, most likely mild chronic microvascular ischemic changes. Ventricles and sulci: Moderate generalized brain parenchymal volume loss with proportionate ventricular enlargement. Other: The skull, included paranasal sinuses and orbits are normal. IMPRESSION: No intracranial traumatic injuries. 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 Depression History of blood transfusion Hyperlipidemia Hypertension Type II or unspecified type diabetes mellitus without mention of complication, not stated as uncontrolled (HCC) Past Surgical History: Past Surgical History: Procedure Laterality Date BREAST LUMPECTOMY Left BREAST LUMPECTOMY Left 2013 s/p radiation as well CATARACT EXTRACTION W/ INTRAOCULAR LENS IMPLANT Bilateral 10/2015, 12/2015 SECTION (HISTORICAL) CHOLECYSTECTOMY DILATION AND CURETTAGE OF UTERUS FEMUR FRACTURE SURGERY Right 11/30/2019 HIP ARTHROPLASTY Right 01/21/2020 conversion JOINT REPLACEMENT Bilateral ROTATOR CUFF REPAIR Right TOTAL ABDOMINAL HYSTERECTOMY Social History: Social History Socioeconomic History Marital status: Spouse name: Not on file Number of children: Not on file Years of education: Not on file Highest education level: Not on file Occupational History Not on file Tobacco Use Smoking status: Every Day Current packs/day: 0.75 Types: Cigarettes Smokeless tobacco: Never Substance and Sexual Activity Alcohol use: Yes Alcohol/week: 0.0 standard drinks of alcohol Drug use: No Sexual activity: Not on file Other Topics Concern Not on file Social History Narrative Not on file Social Drivers of Health Financial Resource Strain: Low Risk (07/04/2021) Received from [facility] Overall Financial Resource Strain (CARDIA) Difficulty of Paying Living Expenses: Not hard at all Food Insecurity: No Food Insecurity (07/04/2021) Received from [facility] Hunger Vital Sign Worried About Running Out of Food in the Last Year: Never true Ran Out of Food in the Last Year: Never true Transportation Needs: Patient Declined (01/11/2024) PRAPARE - Transportation Lack of Transportation (Medical): Patient declined Lack of Transportation (Non-Medical): Patient declined Physical Activity: Not on file Stress: Not on file Social Connections: Not on file Intimate Partner Violence: Not At Risk (01/11/2024) Humiliation, Afraid, Rape, and Kick questionnaire Fear of Current or Ex-Partner: No Emotionally Abused: No Physically Abused: No Sexually Abused: No Housing Stability: Patient Declined (01/11/2024) Housing Stability Vital Sign Unable to Pay for Housing in the Last Year: Patient declined Number of Places Lived in the Last Year: 2 Unstable Housing in the Last Year: Patient declined Family History: Family History Problem Relation Name Age of Onset Asthma Son Thyroid disease Brother Cancer Mother Cancer Father Thyroid disease Mother Cancer Brother Asthma Son Asthma Son Medications Prior to Admission: No current facility-administered medications on file prior to encounter. Current Outpatient Medications on File Prior to Encounter Medication Sig Dispense Refill cholecalciferol (Vitamin D3) 25 MCG (1000 UT) tablet Take by mouth daily. cyanocobalamin (Vitamin B-12) 1000 MCG tablet Take 500 mcg by mouth in the morning. Drug [place] Unifine Pentips Plus 32G X 4 MM misc use 1 (ONE) needle FOUR TIMES DAILY famotidine (Pepcid) 20 MG tablet Take 1 tablet (20 mg) by mouth 2 times daily as needed for heartburn (heartburn). 60 tablet 0 fenofibrate (Tricor) 54 MG tablet Take 1 tablet (54 mg) by mouth daily. 30 tablet 0 insulin glargine (Lantus) 100 UNIT/ML injection Inject 13 Units under the skin 2 times daily. 10 mL 0 Insulin Lispro (Humalog) 100 UNIT/ML solution injection Dosage Start Date End Date Remaining doses 0-18 Units 3 times daily (with meals) High Dose Correction AlgorithmGlucose: Dose: LESS than 139 No [id number] 10 mL 0 ipratropium-albuterol (Duo-Neb) 0.5-2.5 mg/3 mL nebulizer solution Take 3 mL by nebulization 2 times daily as needed for wheezing. 180 mL 11 losartan (Cozaar) 25 MG tablet Take 1 tablet (25 mg) by mouth daily. 30 tablet 0 magnesium oxide (Mag-Ox) 400 (240 Mg) MG tablet Take 1 tablet (400 mg) by mouth 2 times daily. 30 tablet 0 melatonin 5 MG tablet Take 1 tablet (5 mg) by mouth Nightly. 30 tablet 0 pravastatin (Pravachol) 80 MG tablet Take 1 tablet (80 mg) by mouth in the morning. 90 tablet 1 rivaroxaban (Xarelto) 20 MG tablet TAKE 1 TABLET BY MOUTH EVERY MORNING WITH BREAKFAST 90 tablet 1 sennosides (Senokot) 8.6 MG tablet Take 1 tablet (8.6 mg) by mouth Nightly. 30 tablet 11 traZODone (Desyrel) 50 MG tablet Take 50 mg by mouth Nightly as needed for sleep. Patient states she takes most nights venlafaxine XR (Effexor XR) 150 MG 24 hr capsule Take 1 capsule (150 mg) by mouth daily (with breakfast). Do not crush or chew. 30 capsule 0 venlafaxine XR (Effexor XR) 75 MG 24 hr capsule Take 1 capsule (75 mg) by mouth Nightly. Do not crush or chew. 30 capsule 0 Allergies: Allergies Allergen Reactions Aspirin Hives and Swelling Blotchy, GI, hives Penicillins blotchiness Sulfa Antibiotics Hives and Swelling blotchy REVIEW OF SYSTEMS: As documented in HPI Vitals: BP 129/66 Pulse 63 Temp 36.3 C (97.4 F) (Oral) Resp 18 Ht 5' 6" (1.676 m) Wt 165 lb (74.8 kg) SpO2 100% BMI 26.63 kg/m BMI Classification: Overweight (BMI 25.0-29.9) Pulse Ox: SpO2 Av.5 % Min: 99 % Max: 100 % Supplemental O2: PHYSICAL EXAM: Physical Exam Constitutional: General: She is awake. Comments: Patient sleeping on my arrival to room. Rouses with gentle tactile stimulation HENT: Head: Normocephalic and atraumatic. Eyes: General: Vision grossly intact. Gaze aligned appropriately. Extraocular Movements: Extraocular movements intact. Cardiovascular: Rate and Rhythm: Normal rate and regular rhythm. Pulmonary: Breath sounds: Normal breath sounds. No wheezing, rhonchi or rales. Skin: General: Skin is warm and dry. Neurological: General: No focal deficit present. Cranial Nerves: Cranial nerves 2-12 are intact. Psychiatric: Behavior: Behavior is cooperative. DATA: CBC: Recent Labs 10/18/241919 WBC 10.2 RBC 4.61 HGB 13.6 HCT 41.5 MCV 90.0 RDW 12.5 PLT 241 BMP: Recent Labs 10/18/241919 NA 139 K 3.4* CL 105 CO2 26 BUN 20 CREATININE 0.82 GLUCOSE 64* CALCIUM 9.4 ANIONGAP 8 LIVER PROFILE: Recent Labs 02/22/25 1920 AST 16 ALT 8 BILITOT 0.2 ALKPHOS 43 PROT 6.0* PT/INR: No results for input(s): "PROTIME", "INR" in the last 72 hours. CARDIAC ENZYMES: No results for input(s): "TROPONINI" in the last 72 hours. Procalcitonin: No results found for: "PROCAL" Urine Culture: Results for orders placed or performed during the hospital encounter of 01/10/24 Urine culture Collection Time: 01/10/24 10:42 PM Specimen: Urine, Clean Catch Result Value Ref Range Urine Culture Normal urogenital aly present Urine Culture >100,000 CFU/mL Escherichia coli (A) Susceptibility Escherichia coli - BROTH MICRODILUTION Amoxicillin / Clavulanate 4 Susceptible ug/ml Ampicillin 4 Susceptible ug/ml Ampicillin / Sulbactam <=2 Susceptible ug/ml Aztreonam <=1 Susceptible ug/ml Cefazolin <=4 Susceptible ug/ml Cefepime <=1 Susceptible ug/ml Ceftriaxone <=1 Susceptible ug/ml Ciprofloxacin <=0.25 Susceptible ug/ml Gentamicin <=1 Susceptible ug/ml Meropenem <=0.25 Susceptible ug/ml Nitrofurantoin <=16 Susceptible ug/ml Piperacillin / Tazobactam <=4 Susceptible ug/ml Trimethoprim / Sulfamethoxazole <=20 Susceptible ug/ml COVID-19 PCR: No results for input(s): "COVID19" in the last 72 hours. I reviewed: [x] laboratory results [x] radiographic results At the time of today's encounter. Pt was advised of the results. Data: Assessment Discussed management with the ED provider and agree with hospitalization. Acute, acute on chronic, unstable/uncontrolled chronic problems/diagnoses: Urinary tract infection -Review of prior urine cultures note pansensitive E. Coli -IV Rocephin -Urine culture pending 2. Found down, physical debility -Fall precautions -PT/OT -Geriatric specialty consulted Stable chronic problems affecting care, new non-acute diagnoses: Diabetes mellitus -Hold home Lantus on admission due to low pressures, reported decreased p.o. intake at home -Check blood glucose q. ACHS with insulin sliding scale coverage -Hypoglycemia protocol in place 2. Atrial fibrillation -Continue home Xarelto 20 mg 3. Hypertension -Losartan 25 mg 4. Hyperlipidemia -Pravastatin 80 mg -Tricor 54 mg 5. Depression -Effexor 75 mg / 150 mg Plan As a result of the above findings & factors, the following mgmt was pursued: - am labs, replace lytes prn - PT/OT/CM/SW - delirium precautions: increase activity and limit nighttime disturbances - DVT prophylaxis: encourage ambulation and already anticoagulated Complexity: Chronic illness with mild to moderate exacerbation, progression, or side effect of tx (MOD). Acute illness with systemic symptoms (MOD). Risk: Admission to hospital-level care was considered or occurred (HIGH). Advance Directive: DNR-CCA based on prior admission documentation Anticipated Discharge - Date -10/21 - Location -TBD Total time spent (which include face to face and non face to face encounters) : 60 minutes. Extended Emergency Contact Information Primary Emergency Contact: Félix (POA)Charbel Relation: Child Secondary Emergency Contact: Marbin Agee Relation: Child Mónica Tiwari MD Division of Hospital Medicine Inpatient Medical Services/[facility] [employer] Work Phone: 10-18-2024 Note [employer] [facility] 10-18-2024 History and physical note Attending History and Physical Admit Date: 10/18/2024 PCP: NENO IQBAL MD CHIEF COMPLAINT: Unresponsive, hypoglycemia Reason for Admission: Hypoglycemic episode, failure to thrive with physical debilitation History Obtained From: patient, EMR HISTORY OF PRESENT ILLNESS: Beverly is a 79 y.o. female with past medical history below who presents with chief complaint listed above. Medical history includes prior CVA, breast cancer, atrial fibrillation on Xarelto, DM2, HTN, HLD. Per ED report-patient was found earlier today unresponsive by her neighbor. EMS called to assess who noted patient's blood sugar was in 30s-dextrose administration improved cognition and responsiveness. At time of physical assessment patient is awake, poor historian and is unable to provide significant history. Initial ED workup notes potassium at 3.4. Hypoglycemic with glucose at 64-improved with initial management. Initial troponin 4-6 on recheck. WBCs WNL at 10.2. UA positive for bacteria, WBCs, nitrite and leukocyte esterase consistent with infection. ECG showing sinus rhythm, HR of 60 bpm. Vital signs show initial hypotension-improved with initial treatment. HR in 60s. Patient is afebrile. Will admit for further evaluation and management. -CT head Acute Findings: No hemorrhage, mass, or infarct. Chronic Changes: Scattered patchy foci of white matter hypoattenuation, most likely mild chronic microvascular ischemic changes. Ventricles and sulci: Moderate generalized brain parenchymal volume loss with proportionate ventricular enlargement. Other: The skull, included paranasal sinuses and orbits are normal. IMPRESSION: No intracranial traumatic injuries. 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 Depression History of blood transfusion Hyperlipidemia Hypertension Type II or unspecified type diabetes mellitus without mention of complication, not stated as uncontrolled (HCC) Past Surgical History: Past Surgical History: Procedure Laterality Date BREAST LUMPECTOMY Left BREAST LUMPECTOMY Left 2012 s/p radiation as well CATARACT EXTRACTION W/ INTRAOCULAR LENS IMPLANT Bilateral 10/2015, 12/2015 SECTION (HISTORICAL) CHOLECYSTECTOMY DILATION AND CURETTAGE OF UTERUS FEMUR FRACTURE SURGERY Right 11/30/2019 HIP ARTHROPLASTY Right 01/21/2020 conversion JOINT REPLACEMENT Bilateral ROTATOR CUFF REPAIR Right TOTAL ABDOMINAL HYSTERECTOMY Social History: Social History Socioeconomic History Marital status: Spouse name: Not on file Number of children: Not on file Years of education: Not on file Highest education level: Not on file Occupational History Not on file Tobacco Use Smoking status: Every Day Current packs/day: 0.75 Types: Cigarettes Smokeless tobacco: Never Substance and Sexual Activity Alcohol use: Yes Alcohol/week: 0.0 standard drinks of alcohol Drug use: No Sexual activity: Not on file Other Topics Concern Not on file Social History Narrative Not on file Social Drivers of Health Financial Resource Strain: Low Risk (07/04/2021) Received from [facility] Overall Financial Resource Strain (CARDIA) Difficulty of Paying Living Expenses: Not hard at all Food Insecurity: No Food Insecurity (07/04/2021) Received from [facility] Hunger Vital Sign Worried About Running Out of Food in the Last Year: Never true Ran Out of Food in the Last Year: Never true Transportation Needs: Patient Declined (01/11/2024) PRAPARE - Transportation Lack of Transportation (Medical): Patient declined Lack of Transportation (Non-Medical): Patient declined Physical Activity: Not on file Stress: Not on file Social Connections: Not on file Intimate Partner Violence: Not At Risk (01/11/2024) Humiliation, Afraid, Rape, and Kick questionnaire Fear of Current or Ex-Partner: No Emotionally Abused: No Physically Abused: No Sexually Abused: No Housing Stability: Patient Declined (01/11/2024) Housing Stability Vital Sign Unable to Pay for Housing in the Last Year: Patient declined Number of Places Lived in the Last Year: 2 Unstable Housing in the Last Year: Patient declined Family History: Family History Problem Relation Name Age of Onset Asthma Son Thyroid disease Brother Cancer Mother Cancer Father Thyroid disease Mother Cancer Brother Asthma Son Asthma Son Medications Prior to Admission: No current facility-administered medications on file prior to encounter. Current Outpatient Medications on File Prior to Encounter Medication Sig Dispense Refill cholecalciferol (Vitamin D3) 25 MCG (1000 UT) tablet Take by mouth daily. cyanocobalamin (Vitamin B-12) 1000 MCG tablet Take 500 mcg by mouth in the morning. Drug [place] Unifine Pentips Plus 32G X 4 MM misc use 1 (ONE) needle FOUR TIMES DAILY famotidine (Pepcid) 20 MG tablet Take 1 tablet (20 mg) by mouth 2 times daily as needed for heartburn (heartburn). 60 tablet 0 fenofibrate (Tricor) 54 MG tablet Take 1 tablet (54 mg) by mouth daily. 30 tablet 0 insulin glargine (Lantus) 100 UNIT/ML injection Inject 13 Units under the skin 2 times daily. 10 mL 0 Insulin Lispro (Humalog) 100 UNIT/ML solution injection Dosage Start Date End Date Remaining doses 0-18 Units 3 times daily (with meals) High Dose Correction AlgorithmGlucose: Dose: LESS than 139 No [id number] 10 mL 0 ipratropium-albuterol (Duo-Neb) 0.5-2.5 mg/3 mL nebulizer solution Take 3 mL by nebulization 2 times daily as needed for wheezing. 180 mL 11 losartan (Cozaar) 25 MG tablet Take 1 tablet (25 mg) by mouth daily. 30 tablet 0 magnesium oxide (Mag-Ox) 400 (240 Mg) MG tablet Take 1 tablet (400 mg) by mouth 2 times daily. 30 tablet 0 melatonin 5 MG tablet Take 1 tablet (5 mg) by mouth Nightly. 30 tablet 0 pravastatin (Pravachol) 80 MG tablet Take 1 tablet (80 mg) by mouth in the morning. 90 tablet 1 rivaroxaban (Xarelto) 20 MG tablet TAKE 1 TABLET BY MOUTH EVERY MORNING WITH BREAKFAST 90 tablet 1 sennosides (Senokot) 8.6 MG tablet Take 1 tablet (8.6 mg) by mouth Nightly. 30 tablet 11 traZODone (Desyrel) 50 MG tablet Take 50 mg by mouth Nightly as needed for sleep. Patient states she takes most nights venlafaxine XR (Effexor XR) 150 MG 24 hr capsule Take 1 capsule (150 mg) by mouth daily (with breakfast). Do not crush or chew. 30 capsule 0 venlafaxine XR (Effexor XR) 75 MG 24 hr capsule Take 1 capsule (75 mg) by mouth Nightly. Do not crush or chew. 30 capsule 0 Allergies: Allergies Allergen Reactions Aspirin Hives and Swelling Blotchy, GI, hives Penicillins blotchiness Sulfa Antibiotics Hives and Swelling blotchy REVIEW OF SYSTEMS: As documented in HPI Vitals: BP 129/66 Pulse 63 Temp 36.3 C (97.4 F) (Oral) Resp 18 Ht 5' 6" (1.676 m) Wt 165 lb (74.8 kg) SpO2 100% BMI 26.63 kg/m BMI Classification: Overweight (BMI 25.0-29.9) Pulse Ox: SpO2 Av.5 % Min: 99 % Max: 100 % Supplemental O2: PHYSICAL EXAM: Physical Exam Constitutional: General: She is awake. Comments: Patient sleeping on my arrival to room. Rouses with gentle tactile stimulation HENT: Head: Normocephalic and atraumatic. Eyes: General: Vision grossly intact. Gaze aligned appropriately. Extraocular Movements: Extraocular movements intact. Cardiovascular: Rate and Rhythm: Normal rate and regular rhythm. Pulmonary: Breath sounds: Normal breath sounds. No wheezing, rhonchi or rales. Skin: General: Skin is warm and dry. Neurological: General: No focal deficit present. Cranial Nerves: Cranial nerves 2-12 are intact. Psychiatric: Behavior: Behavior is cooperative. DATA: CBC: Recent Labs 10/18/241919 WBC 10.2 RBC 4.61 HGB 13.6 HCT 41.5 MCV 90.0 RDW 12.5 PLT 241 BMP: Recent Labs 10/18/241919 NA 139 K 3.4* CL 105 CO2 26 BUN 20 CREATININE 0.82 GLUCOSE 64* CALCIUM 9.4 ANIONGAP 8 LIVER PROFILE: Recent Labs 10/18/241919 AST 16 ALT 8 BILITOT 0.2 ALKPHOS 43 PROT 6.0* PT/INR: No results for input(s): "PROTIME", "INR" in the last 72 hours. CARDIAC ENZYMES: No results for input(s): "TROPONINI" in the last 72 hours. Procalcitonin: No results found for: "PROCAL" Urine Culture: Results for orders placed or performed during the hospital encounter of 01/10/24 Urine culture Collection Time: 01/10/24 10:42 PM Specimen: Urine, Clean Catch Result Value Ref Range Urine Culture Normal urogenital aly present Urine Culture >100,000 CFU/mL Escherichia coli (A) Susceptibility Escherichia coli - BROTH MICRODILUTION Amoxicillin / Clavulanate 4 Susceptible ug/ml Ampicillin 4 Susceptible ug/ml Ampicillin / Sulbactam <=2 Susceptible ug/ml Aztreonam <=1 Susceptible ug/ml Cefazolin <=4 Susceptible ug/ml Cefepime <=1 Susceptible ug/ml Ceftriaxone <=1 Susceptible ug/ml Ciprofloxacin <=0.25 Susceptible ug/ml Gentamicin <=1 Susceptible ug/ml Meropenem <=0.25 Susceptible ug/ml Nitrofurantoin <=16 Susceptible ug/ml Piperacillin / Tazobactam <=4 Susceptible ug/ml Trimethoprim / Sulfamethoxazole <=20 Susceptible ug/ml COVID-19 PCR: No results for input(s): "COVID19" in the last 72 hours. I reviewed: [x] laboratory results [x] radiographic results At the time of today's encounter. Pt was advised of the results. Data: Assessment Discussed management with the ED provider and agree with hospitalization. Acute, acute on chronic, unstable/uncontrolled chronic problems/diagnoses: Urinary tract infection -Review of prior urine cultures note pansensitive E. Coli -IV Rocephin -Urine culture pending 2. Found down, physical debility -Fall precautions -PT/OT -Geriatric specialty consulted Stable chronic problems affecting care, new non-acute diagnoses: Diabetes mellitus -Hold home Lantus on admission due to low pressures, reported decreased p.o. intake at home -Check blood glucose q. ACHS with insulin sliding scale coverage -Hypoglycemia protocol in place 2. Atrial fibrillation -Continue home Xarelto 20 mg 3. Hypertension -Losartan 25 mg 4. Hyperlipidemia -Pravastatin 80 mg -Tricor 54 mg 5. Depression -Effexor 75 mg / 150 mg Plan As a result of the above findings & factors, the following mgmt was pursued: - am labs, replace lytes prn - PT/OT/CM/SW - delirium precautions: increase activity and limit nighttime disturbances - DVT prophylaxis: encourage ambulation and already anticoagulated Complexity: Chronic illness with mild to moderate exacerbation, progression, or side effect of tx (MOD). Acute illness with systemic symptoms (MOD). Risk: Admission to hospital-level care was considered or occurred (HIGH). Advance Directive: DNR-CCA based on prior admission documentation Anticipated Discharge - Date -10/21 - Location -TBD Total time spent (which include face to face and non face to face encounters) : 60 minutes. Extended Emergency Contact Information Primary Emergency Contact: Félix POWELLLilyCharbel Relation: Child Secondary Emergency Contact: FélixMarbin Relation: Child Mónica Tiwari MD Division of Hospital Medicine Inpatient Medical Services/[facility] documented in this encounter [facility] 10-18-2024 Emergency department Note Pt in CT [facility] 10-18-2024 Physician Emergency department Note EMERGENCY DEPARTMENT ENCOUNTER Pt Name: Beverly Agee Birthdate 1945 Date of evaluation: 10/18/2024 ED Provider: Melinda Ken DO CHIEF COMPLAINT Chief Complaint Patient presents with Hypoglycemia Found by ems to have blood sugar in 30's and unresponsive. EMS gave 2 amps of dextrose. HISTORY OF PRESENT ILLNESS (Location/Symptom, Timing/Onset, Context/Setting, Quality, Duration, Modifying Factors, Severity) Note limiting factors. I wore appropriate PPE for the entirety of this encounter. HPI Beverly Agee is a 79 y.o. who presents to the emergency department after being found unresponsive by her neighbor. EMS noted that her blood sugar was in the 30s and they administered 2 A of dextrose with improvement. Initially unknown where she was found unresponsive or if there is any concern for head injury. No thinners. Patient denies any pain or concerns at this time. She does still seem somewhat confused but is awake and alert. Patient's son arrived to bedside later explaining that she was found unresponsive in her recliner and there is no concern for injury at this time. He states that she has had multiple episodes in the past where she has been hypoglycemic with decreased responsiveness as well. States that he is not the patient's POA and that is another son who is not currently present. He also reports that placement in a intermediate facility has been discussed in the past and declined. Nursing Notes were reviewed. Limitations to history: Altered mental status/confusion Outside historians: Family son at bedside REVIEW OF SYSTEMS Review of Systems Pertinent positives and negatives as per HPI. 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 Depression History of blood transfusion Hyperlipidemia Hypertension Type II or unspecified type diabetes mellitus without mention of complication, not stated as uncontrolled (HCC) SURGICAL HISTORY Past Surgical History: Procedure Laterality Date BREAST LUMPECTOMY Left BREAST LUMPECTOMY Left 2012 s/p radiation as well CATARACT EXTRACTION W/ INTRAOCULAR LENS IMPLANT Bilateral 10/2015, 12/2015 SECTION (HISTORICAL) CHOLECYSTECTOMY DILATION AND CURETTAGE OF UTERUS FEMUR FRACTURE SURGERY Right 11/30/2019 HIP ARTHROPLASTY Right 01/21/2020 conversion JOINT REPLACEMENT Bilateral ROTATOR CUFF REPAIR Right TOTAL ABDOMINAL HYSTERECTOMY CURRENT MEDICATIONS Current Discharge Medication List CONTINUE these medications which have NOT CHANGED Details cholecalciferol (Vitamin D3) 25 MCG (1000 UT) tablet Take by mouth daily. cyanocobalamin (Vitamin B-12) 1000 MCG tablet Take 500 mcg by mouth in the morning. Drug [place] Unifine Pentips Plus 32G X 4 MM misc use 1 (ONE) needle FOUR TIMES DAILY famotidine (Pepcid) 20 MG tablet Take 1 tablet (20 mg) by mouth 2 times daily as needed for heartburn (heartburn). Qty: 60 tablet, Refills: 0 fenofibrate (Tricor) 54 MG tablet Take 1 tablet (54 mg) by mouth daily. Qty: 30 tablet, Refills: 0 insulin glargine (Lantus) 100 UNIT/ML injection Inject 13 Units under the skin 2 times daily. Qty: 10 mL, Refills: 0 Insulin Lispro (Humalog) 100 UNIT/ML solution injection Dosage Start Date End Date Remaining doses 0-18 Units 3 times daily (with meals) High Dose Correction AlgorithmGlucose: Dose: LESS than 139 No [id number] Qty: 10 mL, Refills: 0 ipratropium-albuterol (Duo-Neb) 0.5-2.5 mg/3 mL nebulizer solution Take 3 mL by nebulization 2 times daily as needed for wheezing. Qty: 180 mL, Refills: 11 losartan (Cozaar) 25 MG tablet Take 1 tablet (25 mg) by mouth daily. Qty: 30 tablet, Refills: 0 magnesium oxide (Mag-Ox) 400 (240 Mg) MG tablet Take 1 tablet (400 mg) by mouth 2 times daily. Qty: 30 tablet, Refills: 0 melatonin 5 MG tablet Take 1 tablet (5 mg) by mouth Nightly. Qty: 30 tablet, Refills: 0 pravastatin (Pravachol) 80 MG tablet Take 1 tablet (80 mg) by mouth in the morning. Qty: 90 tablet, Refills: 1 rivaroxaban (Xarelto) 20 MG tablet TAKE 1 TABLET BY MOUTH EVERY MORNING WITH BREAKFAST Qty: 90 tablet, Refills: 1 sennosides (Senokot) 8.6 MG tablet Take 1 tablet (8.6 mg) by mouth Nightly. Qty: 30 tablet, Refills: 11 traZODone (Desyrel) 50 MG tablet Take 50 mg by mouth Nightly as needed for sleep. Patient states she takes most nights venlafaxine XR (Effexor XR) 150 MG 24 hr capsule Take 1 capsule (150 mg) by mouth daily (with breakfast). Do not crush or chew. Qty: 30 capsule, Refills: 0 venlafaxine XR (Effexor XR) 75 MG 24 hr capsule Take 1 capsule (75 mg) by mouth Nightly. Do not crush or chew. Qty: 30 capsule, Refills: 0 ALLERGIES Aspirin, Penicillins, and Sulfa antibiotics FAMILY HISTORY Family History Problem Relation Name Age of Onset Asthma Son Thyroid disease Brother Cancer Mother Cancer Father Thyroid disease Mother Cancer Brother Asthma Son Asthma Son SOCIAL HISTORY Social History Socioeconomic History Marital status: Tobacco Use Smoking status: Every Day Current packs/day: 0.75 Types: Cigarettes Smokeless tobacco: Never Substance and Sexual Activity Alcohol use: Yes Alcohol/week: 0.0 standard drinks of alcohol Drug use: No Social Drivers of Health Financial Resource Strain: Low Risk (07/04/2021) Received from [facility] Overall Financial Resource Strain ([facility]) Difficulty of Paying Living Expenses: Not hard at all Food Insecurity: No Food Insecurity (10/19/2024) Hunger Vital Sign Worried About Running Out of Food in the Last Year: Never true Ran Out of Food in the Last Year: Never true Transportation Needs: No Transportation Needs (10/19/2024) PRAPARE - Transportation Lack of Transportation (Medical): No Lack of Transportation (Non-Medical): No Intimate Partner Violence: Not At Risk (10/19/2024) Humiliation, Afraid, Rape, and Kick questionnaire Fear of Current or Ex-Partner: No Emotionally Abused: No Physically Abused: No Sexually Abused: No Housing Stability: Low Risk (10/19/2024) Housing Stability Vital Sign Unable to Pay for Housing in the Last Year: No Number of Times Moved in the Last Year: 1 Homeless in the Last Year: No SCREENINGS [place] Coma Scale Best Eye Response: Spontaneous Best Verbal Response: Oriented Best Motor Response: Follows commands [place] Coma Scale Score: 15 PHYSICAL EXAM ED Triage Vitals Temp Heart Rate Resp BP 10/18/248 10/18/24182710/18/24182710/18/241827 36.3 C (97.4 F) 65 16 (!) 107/49 SpO2 Temp Source Heart Rate Source Patient Position 10/18/24182710/18/24182710/18/24204710/18/242047 100 % Oral Monitor Lying BP Location FiO2 (%) 10/18/241827 -- Right arm Physical Exam PRIMARY SURVEY: Vital signs: reviewed, as documented Airway: patent, patient talking, no hoarse or muffled voice Pulmonary: spontaneous respiration, bilateral breath sounds Cardiovascular: Regular rate, peripheral pulses intact Disability: GCS 14 for confusion gross motor intact upper and lower extremities gross sensory intact upper and lower extremities SECONDARY SURVEY: General: Awake and alert, oriented x2, no acute distress Head: normocephalic, atraumatic, no cephalohematoma or lacerations, no facial deformity Eyes: PERRL, pupils 3 mm b/l, EOMI, no signs of trauma Ears: Grossly normal Nose: no blood in nares bilaterally, no fluid drainage, no septal hematoma Face: midface stable and nontender Mouth: oropharynx clear, no fractured teeth Neck: trachea midline with no masses, no midline tenderness Chest: nontender, no crepitance, lungs CTA bilaterally Abdomen: soft, non-tender, non-distended Pelvis: stable to compression and nontender Musculoskeletal: Right Arm: no obvious deformity, strength and sensation grossly intact, distal pulses intact Left Arm: no obvious deformity, strength and sensation grossly intact, distal pulses intact Right Leg: no obvious deformity, strength and sensation grossly intact, distal pulses intact Left Leg: no obvious deformity, strength and sensation grossly intact, distal pulses intact Back: no midline tenderness, no step-offs Integumentary: warm, dry DIAGNOSTIC RESULTS RADIOLOGY (Per Emergency Physician): Interpretation per the Radiologist below, if available at the time of this note: CT head wo IV contrast Final Result No intracranial traumatic injuries. Report Dictated on Electronically Signed By: Mónica Ly MD Electronically Signed Date/Time: 10/18/2024 8:[address] cervical spine wo IV contrast Final Result No fracture or traumatic malalignment. Multilevel cervical spondylosis. Estimated moderate spinal stenosis at C4-5. Report Dictated on Electronically Signed By: Mónica Ly MD Electronically Signed Date/Time: 10/18/2024 8:27 PM EST LABS: Labs Reviewed COMPREHENSIVE METABOLIC PANEL - Abnormal Result Value SODIUM 139 POTASSIUM 3.4 (*) CHLORIDE 105 CARBON DIOXIDE 26 ANION GAP 8 UREA NITROGEN 20 CREATININE 0.82 GLUCOSE 64 (*) CALCIUM 9.4 AST (SGOT) 16 ALT 8 ALKALINE PHOSPHATASE 43 ALBUMIN 3.2 (*) BILIRUBIN, TOTAL 0.2 TOTAL PROTEIN 6.0 (*) eGFR 73.8 CBC WITH AUTO DIFFERENTIAL - Abnormal Auto WBC 10.2 RBC 4.61 Hemoglobin 13.6 Hematocrit 41.5 MCV 90.0 MCH 29.5 MCHC 32.8 RDW 12.5 Platelets 241 MPV 9.6 nRBC 0.0 Neutrophils Relative 80.3 Lymphocytes Relative 14.0 (*) Monocytes Relative 4.2 (*) Eosinophils Relative 0.2 Basophils Relative 0.3 Immature Grans % 1.0 Neutrophils Absolute 8.2 (*) Lymphocytes Absolute 1.4 Monocytes Absolute 0.4 Eosinophils Absolute 0.0 Basophils Absolute 0.0 Immature Grans Absolute 0.1 (*) COMPLETE URINALYSIS - Abnormal Color, Urine Yellow Clarity, Urine Turbid (*) pH, Urine 6.5 Leukocytes, Urine 500 (*) Nitrite, Urine Positive (*) Protein, Urine 50 (*) Glucose, Urine 500 (*) Bilirubin, Urine Negative Ketones, Urine Negative Urobilinogen, Urine Normal Blood, Urine Negative RBC, Urine 3-5 (*) WBC, Urine >100 (*) Squamous Epithelial, Urine 0-2 Bacteria, Urine Few (*) SPECIFIC GRAVITY OF URINE (NUMERIC) 1.019 POCT GLUCOSE METER UNSOLICITED RESULTS - Abnormal Glucose 296 (*) Narrative: [facility]formed by: [email or web address], [address] [place] [address] CLIA ID: [id number] POCT GLUCOSE METER UNSOLICITED RESULTS - Abnormal Glucose 104 (*) Narrative: Performed by: [facility], [address] [place] [address] CLIA ID: [id number] POCT GLUCOSE METER UNSOLICITED RESULTS - Abnormal Glucose 60 (*) Narrative: Performed by: [facility], [address] [place] [id number] CLIA ID: [id number] HIGH SENSITIVITY TROPONIN, SERIAL BASELINE - Normal Troponin HS Serial Baseline 4 HIGH SENSITIVITY TROPONIN, SERIAL, SECOND TEST - Normal 2h Troponin HS (Serial 2nd Troponin) 6 HIGH SENSITIVITY TROPONIN, SERIAL, THIRD TEST - Normal 4h Troponin HS (Serial 3rd Troponin) 8 POCT GLUCOSE METER UNSOLICITED RESULTS - Normal Glucose 71 Narrative: Performed by: [facility], [address] [place] [id number] CLIA ID: [id number] URINE CULTURE COMPLETE URINALYSIS WITH REFLEX TO CULTURE Narrative: The following orders were created for panel order Urinalysis complete with reflex to Culture. Procedure Abnormality Status --------- ------ Complete Urinalysis[[id number]] Abnormal Final result Please view results for these tests on the individual orders. HEMOGLOBIN A1C COMPREHENSIVE METABOLIC PANEL MAGNESIUM CBC (HEMOGRAM) All other labs were within normal range or not returned as of this dictation. EMERGENCY DEPARTMENT COURSE and DIFFERENTIAL DIAGNOSIS/MDM: Vitals: Vitals: 10/18/24 2146 10/18/24 2256 10/18/24 2320 10/18/24 2347 BP: 129/66 (!) 165/80 (!) 140/75 128/56 BP Location: Patient Position: Pulse: 63 64 66 60 Resp: 18 16 16 18 Temp: 36.1 C (96.9 F) TempSrc: Temporal SpO2: 100% 100% 100% 100% Weight: 80.9 kg (178 lb 4.8 oz) Height: 1.6 m (5' 3") The patient presented with a chief complaint of hypoglycemia and unresponsive episode. Vitals reviewed. The differential diagnosis associated with this patient's presentation includes metabolic derangement, infectious process. Our workup consisted of ordering/reviewing [id number] glucose which was 71 on arrival following 2 A of D50 for glucose in the 30s an additional amp was given in the ED. Also obtained EKG, CT head and C-spine, and labs. Imaging negative for any traumatic injuries. Labs concerning for nitrite positive UTI on UA. Given ceftriaxone. To be admitted for further evaluation management. Diagnoses as of 10/19/24 0027 Hypoglycemia Urinary tract infection without hematuria, site unspecified External records reviewed: none Diagnostics interpreted by me: none Discussions with other clinicians: Admitting team Chronic conditions impacting care: none Social determinants of health affecting care: none ED Medications managed: Medications cyanocobalamin (Vitamin B-12) tablet 500 mcg (has no administration in time range) insulin glargine (Lantus) injection 13 Units ( SubCUTAneous Dose Auto Held 10/26/24 2100) ipratropium-albuterol (Duo-Neb) 0.5-2.5 mg/3 mL nebulizer solution 3 mL (has no administration in time range) losartan (Cozaar) tablet 25 mg (has no administration in time range) magnesium oxide (Mag-Ox) tablet 400 mg (has no administration in time range) melatonin tablet 5 mg (has no administration in time range) pravastatin (Pravachol) tablet 80 mg (has no administration in time range) rivaroxaban (Xarelto) tablet 20 mg (has no administration in time range) sennosides (Senokot) tablet 8.6 mg (has no administration in time range) traZODone (Desyrel) tablet 50 mg (has no administration in time range) venlafaxine XR (Effexor XR) 24 hr capsule 150 mg (has no administration in time range) venlafaxine XR (Effexor XR) 24 hr capsule 75 mg (has no administration in time range) acetaminophen (Tylenol) tablet 650 mg (has no administration in time range) Or acetaminophen (Tylenol) suppository 650 mg (has no administration in time range) ondansetron ODT (Zofran-ODT) disintegrating tablet 4 mg (has no administration in time range) Or ondansetron (Zofran) injection 4 mg (has no administration in time range) polyethylene glycol (PEG) 3350 (Miralax) packet 17 g (has no administration in time range) Insulin Lispro (Humalog) injection 0-6 Units (has no administration in time range) And Insulin Lispro (Humalog) injection 0-6 Units ( SubCUTAneous Not Given 10/18/24 9325) glucose oral gel 15 g (has no administration in time range) dextrose 50 % solution 12.5 g (has no administration in time range) glucagon (human recombinant) injection 1 mg (has no administration in time range) dextrose 5 % infusion (has no administration in time range) potassium chloride CR (Klor-Con M10) ER tablet 40 mEq (has no administration in time range) cefTRIAXone (Rocephin) 1,000 mg in sodium chloride 0.9 % 50 mL IVPB Mini-Bag Plus (has no administration in time range) dextrose 50 % solution 50 g (50 g IntraVENous Given 10/18/24 1920) cefTRIAXone (Rocephin) 1,000 mg in sodium chloride 0.9 % 50 mL IVPB Mini-Bag Plus (0 mg IntraVENous Stopped 10/18/242255) Prescription drugs considered: none PROCEDURES: Unless otherwise noted below, none Procedures FINAL IMPRESSION 1. Hypoglycemia 2. Urinary tract infection without hematuria, site unspecified DISPOSITION Admit 10/18/2024 10:01:27 PM PATIENT REFERRED TO: No follow-up provider specified. DISCHARGE MEDICATIONS: Current Discharge Medication List (Comment: Please note this report has been produced using speech recognition software and may contain errors related to that system including errors in grammar, punctuation, and spelling, as well as words and phrases that may be inappropriate. If there are any questions or concerns please feel free to contact the dictating provider for clarification.) Melinda Ken DO (electronically signed) Emergency Medicine Provider Melinda Ken DO Resident 10/19/24 0033 Cosigned by Wilber Marie DO at 10/19/2024 1:14 AM EST [facility] 10-18-2024 Physician Emergency department Note Emergency Department Encounter [facility] ADAPTABLE UNIT AAU 5N Patient: Beverly Agee : 1945 Date of Evaluation: 10/18/2024 ED Supervising Physician: Wilber Marie DO I personally saw Beverly Agee and made/approved the management plan and take responsibility for the patient management. This will serve as my Supervisory note and shared attestation. I did perform a substantive portion of the visit including all aspects of the Medical Decision Making. I wore appropriate PPE for the entirety of this encounter. In brief, Beverly Agee is a 79 y.o. that presents to the emergency department found unresponsive by neighbor. EMS reported her glucose was in the 30s, given 2 A of dextrose with improvement of her mentation, transferred to our facility for evaluation. Patient states she does not eat or drink much, does live alone. Does not remember what happened today. Does not think she took too much of her insulin. Family member states this has happened multiple times in the past. Son does not think that she takes care of herself. Focused exam: Alert and oriented 4, no acute distress, nontoxic appearing, Pulm: clear to auscultation bilaterally, Cardiac: regular rate and rhythm, Abdomen: soft nontender, Neuro: no focal motor or sensory deficits. Brief ED course/MDM: Patient presents with unresponsive episode due to hypoglycemia. Lab work shows glucose 64, potassium 3.4, given at 30 amp of dextrose with improvement of the glucose to 296. The rest of the lab work showed no leukocytosis, did have a nitrite positive urinary tract infection. Started on Rocephin, will admit for strict glucose monitoring, continued IV antibiotics, PT OT evaluation possible placement Diagnostics interpreted by me: I personally discussed the patient's management with other clinicians: All diagnostic, treatment, and disposition decisions were made by myself in conjunction with the resident. I also supervised virk portions of any procedures performed by the Resident. For all further details of the patient's emergency department visit, please see their documentation. (Comment: Please note this report has been produced using speech recognition software and may contain errors related to that system including errors in grammar, punctuation, and spelling, as well as words and phrases that may be inappropriate. If there are any questions or concerns please feel free to contact the dictating provider for clarification.) Wilber Marie DO [employer] Wilber Marie DO 10/19/241 [employer] Work Phone: 03-24-2024 Miscellaneous Notes S: TYLER Jones from [facility] calling [facility] with information for PCP. B: Karen had a home visit today with pt. A: Pt is being discharged from [facility]. R: Message sent to Dr. Iqbal office. Reason for Disposition [1] Follow-up call to recent contact AND [2] information only call, no triage required Protocols used: Information Only Call - No [id number] documented in this encounter [facility] 03-24-2024 Telephone encounter Note S: TYLER Jones from [facility] calling [facility] with information for PCP. B: Karen had a home visit today with pt. A: Pt is being discharged from [facility]. R: Message sent to Dr. Iqbal office. Reason for Disposition [1] Follow-up call to recent contact AND [2] information only call, no triage required Protocols used: Information Only Call - No [id number] [facility] 01-15-2024 History of Present illness Narrative Spiritual Care Note [facility] Patient Name:Beverly Agee Chief Complaint: Chief Complaint Patient presents with Knee Pain Pt states that today she fell and no she has bilateral knee pain. Altered Mental Status Per EMS the pt family states that she is not acting like her normal self. EMS states that the pt was just at a retirement for rehab after being in the hospital however, they were unsure of what the pt was in the hospital for. Reason for visit: Senior Procurement Specialist Consult Services Provided To:patient Background and visit note: Patient was a consult from volunteer who shared patient was struggling emotionally. Introduced myself and pastoral care to patient. She was experiencing some distress. She was crying when I came to visit. She shared she didn't feel like herself. She expressed still missing her of 55 years who .She is a Vood[employer] who reflected on God's presence in her life. No follow up needed. Is there spiritual distress? YES Comment: Patient was experiencing grief. Interventions: spiritual support provided, emotional support provided, empathetic listening, and validated feelings. Care Plan: No care plan needed . Follow Up: PRN and when patient is able. Debriefed: with childcare attendant team. Estee Darden 01/15/24 Images from the original note were not included. Hospitalist Progress Note 01/15/2024 Subjective: Admit Date: 01/10/2024 PCP: NENO IQBAL MD Room#: [facility]735/[facility]73 A Interval History: Hemoglobin stable afebrile and on room air no overnight issues. Case and plan discussed with patient and bedside nurse. All questions answered. 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 BMP:No results for input(s): "NA", "K", "CL", "CO2", "BUN", "CREATININE", "GLUCOSE", "CALCIUM", "ANIONGAP" in the last 72 hours. LIVER PROFILE:No results for input(s): "AST", "ALT", "BILITOT", "ALKPHOS", "PROT" in the last 72 hours. No lab exists for component: LABALBU PT/INR: No results for input(s): "PROTIME", "INR" in the last 72 hours. CARDIAC ENZYMES: No results for input(s): "TROPONINI" in the last 72 hours. Procalcitonin: No results found for: "PROCAL" COVID-19 PCR: No results for input(s): "COVID19" in the last 72 hours. Objective: Vitals: BP 133/64 Pulse 71 Temp (!) 35.7 C (96.3 F) (Temporal) Resp 18 Ht 5' 6" (1.676 m) Wt 160 lb (72.6 kg) SpO2 100% BMI 25.82 kg/m Pulse Ox: SpO2 Av.5 % Min: 99 % Max: 100 % Supplemental O2: Physical Exam Constitutional: Appearance: Normal appearance. Eyes: Extraocular Movements: Extraocular movements intact. Conjunctiva/sclera: Conjunctivae normal. Pupils: Pupils are equal, round, and reactive to light. Cardiovascular: Rate and Rhythm: Normal rate and regular rhythm. Pulmonary: Effort: Pulmonary effort is normal. No respiratory distress. Breath sounds: Normal breath sounds. Abdominal: General: Bowel sounds are normal. Palpations: Abdomen is soft. Tenderness: There is no abdominal tenderness. Neurological: Mental Status: She is alert. She is disoriented. Comments: Able to state her name Mentation at baseline Medications: Scheduled PRN cefTRIAXone, 1,000 mg, IntraVENous, q24h cyanocobalamin, 500 mcg, Oral, Daily fenofibrate, 54 mg, Oral, Daily folic acid, 1 mg, Oral, Daily insulin glargine, 13 Units, SubCUTAneous, BID insulin lispro, 0-6 Units, SubCUTAneous, TID WC And insulin lispro, 0-6 Units, SubCUTAneous, Nightly losartan, 25 mg, Oral, Daily magnesium oxide, 400 mg, Oral, BID melatonin, 5 mg, Oral, Nightly pravastatin, 80 mg, Oral, Daily rivaroxaban, 20 mg, Oral, Daily with breakfast sennosides, 1 tablet, Oral, Nightly stomahesive in petrolatum, , Topical, q8h venlafaxine XR, 150 mg, Oral, Daily with breakfast venlafaxine XR, 75 mg, Oral, Nightly PRN medications: acetaminophen OR acetaminophen, dextrose, dextrose, famotidine, glucagon (rDNA), glucose, ipratropium-albuterol, ondansetron ODT OR ondansetron, polyethylene glycol (PEG) 3350, QUEtiapine, traZODone Continuous Assessment 78-year-old female presented with a fall Acute, acute on chronic, unstable/uncontrolled chronic problems/diagnoses: Urinary tract infection/cystitis patient has completed course of Rocephin Stable chronic problems affecting care, new non-acute diagnoses: Recent fall with hemothorax and rib fracture. Diabetes mellitus, insulin-dependent continue sliding scale insulin and Lantus Atrial fibrillation continue Xarelto Hypertension continue losartan Hyperlipidemia continue statin and fenofibrate Mood disorder continue Effexor Plan As a result of the above findings & factors, the following mgmt was pursued: - Disposition intermediate facility - am labs, replace lytes prn - PT/OT/CM/SW Advance Directive: DNR-CCA Extended Emergency Contact Information Primary Emergency Contact: Charbel Agee (POA) Relation: Child Secondary Emergency Contact: FélixMarbin Relation: Child Graciela Ledbetter DO Division of Hospitalist Medicine [facility] Images from the original note were not included. Hospitalist Progress Note 01/14/2024 Subjective: Admit Date: 01/10/2024 PCP: NENO IQBAL MD Room#: [id number]/[id number] A Brief Hospital course: Patient admitted with a fall - found to have UTI Interval History: 01/12/2024-No overnight issues. Pleasantly confused this AM - ate a good breakfast - no pain 01/13/2024 - pleasantly confused in bed - no complaints 01/14/2024 - no overnight issues Case and plan discussed with patient and bedside nurse. All questions answered. 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 BMP: No results for input(s): "NA", "K", "CL", "CO2", "BUN", "CREATININE", "GLUCOSE", "CALCIUM", "ANIONGAP" in the last 72 hours. LIVER PROFILE: No results for input(s): "AST", "ALT", "BILITOT", "ALKPHOS", "PROT" in the last 72 hours. No lab exists for component: LABALBU PT/INR: No results for input(s): "PROTIME", "INR" in the last 72 hours. CARDIAC ENZYMES: No results for input(s): "TROPONINI" in the last 72 hours. Procalcitonin: No results found for: "PROCAL" COVID-19 PCR: No results for input(s): "COVID19" in the last 72 hours. Objective: Vitals: BP 115/64 (BP Location: Right arm, Patient Position: Lying) Pulse 94 Temp 36.2 C (97.1 F) (Temporal) Resp 18 Ht 5' 6" (1.676 m) Wt 160 lb (72.6 kg) SpO2 97% BMI 25.82 kg/m Pulse Ox: SpO2 Av.5 % Min: 96 % Max: 97 % Supplemental O2: Physical Exam HENT: Mouth/Throat: Mouth: Mucous membranes are moist. Cardiovascular: Rate and Rhythm: Normal rate and regular rhythm. Pulmonary: Effort: Pulmonary effort is normal. Breath sounds: Normal breath sounds. Abdominal: General: Abdomen is flat. Bowel sounds are normal. Palpations: Abdomen is soft. Neurological: General: No focal deficit present. Mental Status: She is alert. She is disoriented. Medications: Scheduled PRN cefTRIAXone, 1,000 mg, IntraVENous, q24h cyanocobalamin, 500 mcg, Oral, Daily fenofibrate, 54 mg, Oral, Daily folic acid, 1 mg, Oral, Daily insulin glargine, 13 Units, SubCUTAneous, BID insulin lispro, 0-6 Units, SubCUTAneous, TID WC And insulin lispro, 0-6 Units, SubCUTAneous, Nightly losartan, 25 mg, Oral, Daily magnesium oxide, 400 mg, Oral, BID melatonin, 5 mg, Oral, Nightly pravastatin, 80 mg, Oral, Daily rivaroxaban, 20 mg, Oral, Daily with breakfast sennosides, 1 tablet, Oral, Nightly stomahesive in petrolatum, , Topical, q8h venlafaxine XR, 150 mg, Oral, Daily with breakfast venlafaxine XR, 75 mg, Oral, Nightly PRN medications: acetaminophen OR acetaminophen, dextrose, dextrose, famotidine, glucagon (rDNA), glucose, ipratropium-albuterol, ondansetron ODT OR ondansetron, polyethylene glycol (PEG) 3350, QUEtiapine, traZODone Continuous Assessment Data: (CAT1) Reviewed 3 or more labs/studies previously ordered by me not previously counted (each=1, panels count as 1). (LOW: 2x CAT1 or independent historian MOD: 3x CAT1 or 1x CAT3 EXTENSIVE: 3x CAT1 and 1x CAT3) Acute, acute on chronic, unstable/uncontrolled chronic problems/diagnoses: UTI with metabolic encephalopathy Stable chronic problems affecting care, new non-acute diagnoses: Recent fall with hemothorax / rib fractures DM2 Afib HTN Plan As a result of the above findings & factors, the following mgmt was pursued: - continue IV rocephin - end after today - UC with pansensitive E coli - complete 3 day course of rocephin - mentation seems improved and back to baseline - will need to return to snf for more therapy - am labs, replace lytes prn - PT/OT/CM/SW - delirium precautions: increase activity - DVT prophylaxis: enoxaparin and encourage ambulation Complexity: Acute illness with systemic symptoms (MOD). Risk: Prescription drug/IVF/colloid was initiated, discontinued, adjusted; or reviewed with decision to maintain current orders (MOD). Advance Directive: DNR-CCA Anticipated Discharge - Date - 01/13 - Location - Skilled Facility - Pending the following - approval for return Total time spent (which include face to face and non face to face encounters) : 38 minutes Extended Emergency Contact Information Primary Emergency Contact: Charbel Agee (POA) Relation: Child Secondary Emergency Contact: Marbin Agee Relation: Child Ethan Urbina MD Division of Hospitalist Medicine [facility] Images from the original note were not included. OCCUPATIONAL THERAPY [facility] Initial Evaluation Name/MRN: Beverly Agee ([id number]) Evaluation Date: 01/14/2024 Date of : 1945 Admission Date: 01/10/2024 6:51 PM Age: 78 y.o. Room/Bed: [facility] A Discharge Recommendation: [facility] Facility Equipment Needed: Yes (fww) Assessment IMPRESSION: Admitted with UTI. Patient admitted from SNF, poor historian chart reports that she required assist for ADLs and mobility at baseline. Chart reports patient was using front wheel walker at facility. On eval patient reports that she is aware that she is in [place] and it is 2023. Required min assist for bed mobility, min assist for functional transfers from edge of bed and min assist for lower body dressing due to generalized weakness. Patient is most appropriate to return to SNF. Performance Deficits /Impairments: Decreased Functional Mobility, Decreased ADL status, Decreased Strength, Decreased Safety Awareness, Decreased Cognition, Decreased Endurance, Decreased Balance, and Decreased High Level IADLs Prognosis: Fair Decision Making: Low Complexity Subjective In bed, agreeable. Pain: Pt denies any current pain. 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 Depression History of blood transfusion Hyperlipidemia Hypertension Type II or unspecified type diabetes mellitus without mention of complication, not stated as uncontrolled (HCC) Past Surgical History: Past Surgical History: Procedure Laterality Date BREAST LUMPECTOMY Left BREAST LUMPECTOMY Left 2012 s/p radiation as well CATARACT EXTRACTION W/ INTRAOCULAR LENS IMPLANT Bilateral 10/2015, 12/2015 SECTION (HISTORICAL) CHOLECYSTECTOMY DILATION AND CURETTAGE OF UTERUS FEMUR FRACTURE SURGERY Right 11/30/2019 HIP ARTHROPLASTY Right 01/21/2020 conversion JOINT REPLACEMENT Bilateral ROTATOR CUFF REPAIR Right TOTAL ABDOMINAL HYSTERECTOMY Admission Diagnosis: Patient Active Problem List Diagnosis Date Noted Complicated UTI (urinary tract infection) 01/11/2024 Closed fracture of multiple ribs of right side, initial encounter 12/12/2023 Weakness 10/03/2022 Hyperglycemia 10/03/2022 Noncompliance with treatment regimen 06/30/2022 UTI (urinary tract infection) 11/29/2019 Closed fracture of one rib of left side 08/01/2021 Hemothorax 08/01/2021 Anticoagulated 08/01/2021 Mood disorder (HCC) 11/13/2020 Hip fracture requiring operative repair, right, closed, initial encounter ([facility]) 01/21/2020 E-coli UTI 12/01/2019 H/O: CVA (cerebrovascular accident) 11/29/2019 Tobacco dependence syndrome 11/29/2019 Memory impairment 11/29/2019 Fall 11/29/2019 Leukocytosis 11/29/2019 Closed fracture of hip (HCC) 11/29/2019 Unsteady gait 11/29/2019 Type 2 diabetes mellitus with hyperglycemia, with long-term current use of insulin ([facility]) 11/29/2019 Acute cystitis 11/29/2019 Obesity 11/29/2019 Atrial fibrillation ([facility]) 11/29/2019 Hypomagnesemia 02/18/2019 History of radial keratotomy 01/31/2017 Examination of participant in clinical trial 02/03/2016 Malignant neoplasm of upper-outer quadrant of female breast ([facility]) 02/03/2016 Psychophysiological insomnia 05/06/2015 Essential hypertension 05/06/2015 Mixed anxiety depressive disorder 05/06/2015 Hyperlipidemia 05/06/2015 Medical Precautions: No active isolations Proper PPE donned/doffed in accordance with facility standards. Fall Risk: Loyd Fall Risk Score: 45 (High Risk) Precautions/Restrictions: N/A Family/Caregiver Present: none Overall Cognitive Status: Exceptions - Following commands: follows one step commands with increased time - Memory: decreased recall of biographical information, decreased recall of recent events, decreased short term memory, and decreased termite control representative memory - Problem solving: assistance required to generate solutions - Insights: decreased awareness of deficits Overall Orientation Status: Oriented to Time and Oriented to Person Social/Functional History Patient admitted from SNF. Assistive Equipment: front wheeled walker Prior Level of Function ADL Assistance: Needs Assist Ambulation Assistance: Needs Assistance Transfer Assistance: Needs Assist Objective ADLs LE Dressing: Min Assist Assist with RLE Upper Extremity Assessment AROM: WFL PROM: Not assessed this session Strength: WFL Vision: wears glasses for reading and and are NOT being used during the eval Hearing: normal Bed Mobility Supine to sit: Min Assist Sit to supine: Min Assist Scooting: SBA Transfers/Functional Mobility Sit to stand: Min Assist Stand to sit: Min Assist Sitting balance: SBA Standing balance: Min Assist Device(s) used: Used therapist for support. AM-PAC AM-PAC Inpatient Daily Activity Raw Score: 19 ADL Inpatient CMS G-Code Modifier: CK Plan Pt would benefit from skilled acute OT services to address Strengthening, Balance Training, Functional Mobility Training, Endurance Training, Gait Training, Pain Management, Safety Education and Training, Patient/Caregiver Training, Equipment Evaluation/Education, and Self-Care/ADL Training. Frequency: 2x/week for 4 weeks Barriers: Pain, Confusion, and Lower extremity weakness Prognosis: fair Safety/Education Safety Safety Devices in place: All fall risk precautions in place, call light within reach, left in bed, and no alarms engaged upon entry Restraints: No Education Education Given To: patient Education Provided: OT Role and Plan of Care Education Method: Verbal Barriers to Learning: Cognition Education Outcome: Continued Education Needed Goals Patient Stated Goal: Patient unable to participate in goal setting at this time. Encounter Problems Encounter Problems (Active) Dressings Lower Extremities Patient will dress lower body SBA with AE Start: 01/14/24 Expected End: 02/11/24 Grooming Patient will complete grooming standing at sink in FWW SBA Start: 01/14/24 Expected End: 02/11/24 Safety Patient will demo FWW safety during ADLs no cues Start: 01/14/24 Expected End: 02/11/24 Toileting Patient will complete toileting tasks SBA Start: 01/14/24 Expected End: 02/11/24 Therapy Time Individual Co-treatment Time In 1018 Time Out 1031 Minutes 13 Dom Govea OT Patient's Occupational Therapy Plan of Care supervision is transferred to a [facility] Therapy Services Occupational Therapist. Goals and/or treatment plan was established in collaboration with patient/family/other representatives. Images from the original note were not included. PHYSICAL THERAPY [facility] Treatment Note Name/MRN: Beverly Agee ([id number]) Date of : 1945 Age: 78 y.o. Room/Bed: [id number] A Discharge Recommendation: [facility] Facility Prior Level of Function ADL Assistance: Needs Assist Ambulation Assistance: Needs Assistance Transfer Assistance: Needs Assist Poor historian. Pt reports using walker previously Assessment Pt precert for updated PT note. Pt min assist for bed mobility and gait, min/mod assist for transfer. Increase time to complete task. Fatigues with gait. Retrograde balance with static standing. Rec SNF upon discharge. Subjective Pt in bed, agreeable to PT. Pleasantly confused. Pain: Pt denies any current pain. Medical Precautions: No active isolations Proper PPE donned/doffed in accordance with facility standards. Fall Risk: Loyd Fall Risk Score: 45 (High Risk) Precautions/Restrictions: periwick catheter, bed/chair alarm Overall Cognitive Status: Exceptions - Memory: decreased recall of recent events - Problem solving: assistance required to correct errors made - Initiation: requires cues for some Overall Orientation Status: Oriented to Person Family/Caregiver Present: none Objective Ambulation Ambulation 1 Assistive device(s) used: front wheeled walker Assist level: Min Assist Distance (ft): 18ft x 2 Quality of gait: uneven step length, slow savanna, postural sway, double stance time, fatigue SOBOE Ambulation 2 Assistive device(s) used: front wheeled walker Assist level: Min Assist Distance (ft): 25ftx2 Quality of gait: uneven step length, wide LUCA, slow savanna Ambulation 3 Assistive device(s) used: front wheeled walker Assist level: Min Assist Distance (ft): 20ft x2 with seated rest break Quality of gait: uneven step length, slow savanna, postural sway, instability through all phases, more unsteady due to dizziness Transfers/Mobility Sit to stand: Min Assist, Mod Assist Stand to sit: Min Assist 6 reps from different surfaces (x2 from EOB, x2 from chair, x2 from toilet). Cues for hand placement and sequencing. Increase assist from lower surfaces. Device(s) used: front wheeled walker Exercises Exercises Quad Sets: x 10 reps each Heelslides: x 10 reps each Hip Abduction: supine x 10 reps each Knee Long Arc Quad: x 10 reps each Ankle Pumps: x 10 reps each Bed Mobility Supine to sit: Min Assist Rolling to left: Min Assist Scooting: Min Assist HOB elevated, bed rails used. Extra time Balance: seated at EOB, BUE support, occasional retro LOB, min assist for balance. Standing with FWW, wide LUCA, retrograde balance, unsteady, mod assist for balance and able to progress to min assist. Dynamic standing with FWW, skyler mini marches in preparation of gait, improved balance, min assist. Dynamic sitting for pericare and hand hygiene, SBA for balance. Plan Continue acute PT per plan of care. Safety/Education Safety Safety Devices in place: call light within reach, left in chair, chair alarm in place, gait belt, patient at risk for falls, and nurse notified Restraints: No Education Education Given To: patient Education Provided: PT Goals, Gait Training, Plan of Care, Home Exercise Program, Transfer Training, Fall Prevention Education, Discharge Recommendations, and Benefits of Increasing Activity Education Method: Verbal Barriers to Learning: Cognition Education Outcome: Continued Education Needed Outcome Measures AM-PAC AM-PAC Inpatient Mobility Raw Score (No Stairs) : 15 JH-HLM JH-HLM Score: Walked 25 ft or more (i.e. walked outside of room) Goals Patient Stated Goal: no goal stated Encounter Problems Encounter Problems (Active) Mobility Patient will ambulate 175 feet with supervision and least restrictive device in order to improve safety and independence with mobility. (Progressing) Start: 01/11/24 Expected End: 01/25/24 Pain - Adult Transfers Patient will perform bed mobility with supervision in order to improve independence and prepare for out of bed mobility. (Progressing) Start: 01/11/24 Expected End: 01/25/24 Patient will complete functional transfer with least restrictive device with supervision in order to prepare for ambulation. (Progressing) Start: 01/11/24 Expected End: 01/25/24 Therapy Time Individual Co-treatment Time In 0807 Time Out 0848 Minutes 41 Timed Code Treatment Minutes: 41 Minutes (neuro; tp; gait) Shaun Dalal, DIRECTOR OF [employer] Images from the original note were not included. Hospitalist Progress Note 01/13/2024 Subjective: Admit Date: 01/10/2024 PCP: NENO IQBAL MD Room#: /-860 A Brief Hospital course: Patient admitted with a fall - found to have UTI Interval History: 01/12/2024-No overnight issues. Pleasantly confused this AM - ate a good breakfast - no pain 01/13/2024 - pleasantly confused in bed - no complaints Case and plan discussed with patient and bedside nurse. All questions answered. 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 Depression History of blood transfusion Hyperlipidemia Hypertension Type II or unspecified type diabetes mellitus without mention of complication, not stated as uncontrolled (HCC) Adult diet Regular; 5 carb choices (75 gm/meal); 1500 ml 24HR INTAKE/OUTPUT: Intake/Output Summary (Last 24 hours) at 01/13/2024 0938 Last data filed at 01/13/2024 0858 Gross per 24 hour Intake 120 ml Output 700 ml Net -580 ml LABS: CBC: Recent Labs 01/10/242130 WBC 8.8 RBC 4.05 HGB 11.9 HCT 35.6 MCV 87.9 RDW 13.4 PLT 281 BMP: Recent Labs 01/10/242130 NA 132* K 4.2 CL 101 CO2 20* BUN 16 CREATININE 0.78 GLUCOSE 193* CALCIUM 10.1 ANIONGAP 12 LIVER PROFILE: Recent Labs 01/10/242130 AST 22 ALT 14 BILITOT 0.6 ALKPHOS 64 PROT 6.9 PT/INR: No results for input(s): "PROTIME", "INR" in the last 72 hours. CARDIAC ENZYMES: Recent Labs 01/10/24213001/11/24 0056 TROPONINI <0.012 <0.012 Procalcitonin: No results found for: "PROCAL" COVID-19 PCR: No results for input(s): "COVID19" in the last 72 hours. Objective: Vitals: BP 142/73 (BP Location: Right arm, Patient Position: Lying) Pulse 73 Temp 36.2 C (97.2 F) (Temporal) Resp 16 Ht 5' 6" (1.676 m) Wt 160 lb (72.6 kg) SpO2 99% BMI 25.82 kg/m Pulse Ox: SpO2 Av % Min: 99 % Max: 99 % Supplemental O2: Physical Exam HENT: Mouth/Throat: Mouth: Mucous membranes are moist. Cardiovascular: Rate and Rhythm: Normal rate and regular rhythm. Pulmonary: Effort: Pulmonary effort is normal. Breath sounds: Normal breath sounds. Abdominal: General: Abdomen is flat. Bowel sounds are normal. Palpations: Abdomen is soft. Neurological: General: No focal deficit present. Mental Status: She is alert. She is disoriented. Medications: Scheduled PRN cefTRIAXone, 1,000 mg, IntraVENous, q24h cyanocobalamin, 500 mcg, Oral, Daily fenofibrate, 54 mg, Oral, Daily folic acid, 1 mg, Oral, Daily insulin glargine, 13 Units, SubCUTAneous, BID insulin lispro, 0-6 Units, SubCUTAneous, TID WC And insulin lispro, 0-6 Units, SubCUTAneous, Nightly losartan, 25 mg, Oral, Daily magnesium oxide, 400 mg, Oral, BID melatonin, 5 mg, Oral, Nightly pravastatin, 80 mg, Oral, Daily rivaroxaban, 20 mg, Oral, Daily with breakfast sennosides, 1 tablet, Oral, Nightly stomahesive in petrolatum, , Topical, q8h venlafaxine XR, 150 mg, Oral, Daily with breakfast venlafaxine XR, 75 mg, Oral, Nightly PRN medications: acetaminophen OR acetaminophen, dextrose, dextrose, famotidine, glucagon (rDNA), glucose, ipratropium-albuterol, ondansetron ODT OR ondansetron, polyethylene glycol (PEG) 3350, QUEtiapine, traZODone Continuous Assessment Data: (CAT1) Reviewed 3 or more labs/studies previously ordered by me not previously counted (each=1, panels count as 1). (LOW: 2x CAT1 or independent historian MOD: 3x CAT1 or 1x CAT3 EXTENSIVE: 3x CAT1 and 1x CAT3) Acute, acute on chronic, unstable/uncontrolled chronic problems/diagnoses: UTI with metabolic encephalopathy Stable chronic problems affecting care, new non-acute diagnoses: Recent fall with hemothorax / rib fractures DM2 Afib HTN Plan As a result of the above findings & factors, the following mgmt was pursued: - continue IV rocephin - UC with pansensitive E coli - complete 3 day course of rocephin - mentation seems improved today - will need to return to snf for more therapy - am labs, replace lytes prn - PT/OT/CM/SW - delirium precautions: increase activity - DVT prophylaxis: enoxaparin and encourage ambulation Complexity: Acute illness with systemic symptoms (MOD). Risk: Prescription drug/IVF/colloid was initiated, discontinued, adjusted; or reviewed with decision to maintain current orders (MOD). Advance Directive: DNR-CCA Anticipated Discharge - Date - 01/13 - Location - Skilled Facility - Pending the following - treatment of UTI Total time spent (which include face to face and non face to face encounters) : 38 minutes Extended Emergency Contact Information Primary Emergency Contact: Félix (JACKCharbel Relation: Child Secondary Emergency Contact: Marbin Agee Relation: Child Ethan Urbina MD Division of Hospitalist Medicine Inpatient Medical Services/[facility] .Nutrition rescreen completed. Chart reviewed. Patient to be monitored and followed by the diet microbiology quality control technician. [place] Images from the original note were not included. Hospitalist Progress Note 01/12/2024 Subjective: Admit Date: 01/10/2024 PCP: NENO IQBAL MD Room#: W5-556/W0-651 A Brief Hospital course: Patient admitted with a fall - found to have UTI Interval History: 01/12/2024-No overnight issues. Pleasantly confused this AM - ate a good breakfast - no pain Case and plan discussed with patient and bedside nurse. All questions answered. 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 Depression History of blood transfusion Hyperlipidemia Hypertension Type II or unspecified type diabetes mellitus without mention of complication, not stated as uncontrolled (HCC) Adult diet Regular; 5 carb choices (75 gm/meal); 1500 ml 24HR INTAKE/OUTPUT: Intake/Output Summary (Last 24 hours) at 01/12/2024 0855 Last data filed at 01/11/2024 0909 Gross per 24 hour Intake 120 ml Output -- Net 120 ml LABS: CBC: Recent Labs 01/10/242130 WBC 8.8 RBC 4.05 HGB 11.9 HCT 35.6 MCV 87.9 RDW 13.4 PLT 281 BMP: Recent Labs 01/10/242130 NA 132* K 4.2 CL 101 CO2 20* BUN 16 CREATININE 0.78 GLUCOSE 193* CALCIUM 10.1 ANIONGAP 12 LIVER PROFILE: Recent Labs 01/10/242130 AST 22 ALT 14 BILITOT 0.6 ALKPHOS 64 PROT 6.9 PT/INR: No results for input(s): "PROTIME", "INR" in the last 72 hours. CARDIAC ENZYMES: Recent Labs 01/10/24213001/11/24 0056 TROPONINI <0.012 <0.012 Procalcitonin: No results found for: "PROCAL" COVID-19 PCR: No results for input(s): "COVID19" in the last 72 hours. Objective: Vitals: BP 125/84 (BP Location: Right arm, Patient Position: Lying) Pulse 72 Temp 36.2 C (97.2 F) (Temporal) Resp 16 Ht 5' 6" (1.676 m) Wt 160 lb (72.6 kg) SpO2 96% BMI 25.82 kg/m Pulse Ox: SpO2 Av.5 % Min: 96 % Max: 97 % Supplemental O2: Physical Exam HENT: Mouth/Throat: Mouth: Mucous membranes are moist. Cardiovascular: Rate and Rhythm: Normal rate and regular rhythm. Pulmonary: Effort: Pulmonary effort is normal. Breath sounds: Normal breath sounds. Abdominal: General: Abdomen is flat. Bowel sounds are normal. Palpations: Abdomen is soft. Neurological: General: No focal deficit present. Mental Status: She is alert. She is disoriented. Medications: Scheduled PRN cefTRIAXone, 1,000 mg, IntraVENous, q24h cyanocobalamin, 500 mcg, Oral, Daily fenofibrate, 54 mg, Oral, Daily folic acid, 1 mg, Oral, Daily insulin glargine, 13 Units, SubCUTAneous, BID insulin lispro, 0-6 Units, SubCUTAneous, TID WC And insulin lispro, 0-6 Units, SubCUTAneous, Nightly losartan, 25 mg, Oral, Daily magnesium oxide, 400 mg, Oral, BID melatonin, 5 mg, Oral, Nightly pravastatin, 80 mg, Oral, Daily rivaroxaban, 20 mg, Oral, Daily with breakfast sennosides, 1 tablet, Oral, Nightly stomahesive in petrolatum, , Topical, q8h venlafaxine XR, 150 mg, Oral, Daily with breakfast venlafaxine XR, 75 mg, Oral, Nightly PRN medications: acetaminophen OR acetaminophen, dextrose, dextrose, famotidine, glucagon (rDNA), glucose, ipratropium-albuterol, ondansetron ODT OR ondansetron, polyethylene glycol (PEG) 3350, QUEtiapine, traZODone Continuous Assessment Data: (CAT1) Reviewed 3 or more labs/studies previously ordered by me not previously counted (each=1, panels count as 1). (LOW: 2x CAT1 or independent historian MOD: 3x CAT1 or 1x CAT3 EXTENSIVE: 3x CAT1 and 1x CAT3) Acute, acute on chronic, unstable/uncontrolled chronic problems/diagnoses: UTI with metabolic encephalopathy Stable chronic problems affecting care, new non-acute diagnoses: Recent fall with hemothorax / rib fractures DM2 Afib HTN Plan As a result of the above findings & factors, the following mgmt was pursued: - continue IV rocephin - await UC result - mentation seems improved today - will need to return to snf for more therapy - am labs, replace lytes prn - PT/OT/CM/SW - delirium precautions: increase activity - DVT prophylaxis: enoxaparin and encourage ambulation Complexity: Acute illness with systemic symptoms (MOD). Risk: Prescription drug/IVF/colloid was initiated, discontinued, adjusted; or reviewed with decision to maintain current orders (MOD). Advance Directive: DNR-CCA Anticipated Discharge - Date - 01/13 - Location - Skilled Facility - Pending the following - treatment of UTI Total time spent (which include face to face and non face to face encounters) : 41 minutes Extended Emergency Contact Information Primary Emergency Contact: Agee (POA)Charbel Relation: Child Secondary Emergency Contact: Marbin Agee Relation: Child Ethan Urbina MD Division of Hospitalist Medicine Inpatient Medical Services/[facility] Images from the original note were not included. PHYSICAL THERAPY [facility] Initial Evaluation Name/MRN: Beverly Agee ([id number]) Evaluation Date: 01/11/2024 Date of : 1945 Admission Date: 01/10/2024 6:51 PM Age: 78 y.o. Room/Bed: [facility] A Discharge Recommendation: [facility] Facility Assessment IMPRESSION: Pt is a 78 year old patient admitted for complicated UTI. Pt, prior to admission, was living at [facility] per RN (marbin). As per RN, pt had hx of falls with "multiple right rib fractures" and "pneumothorax" in November 2023. Pt requires min assist x1 during session. Pt is A&Ox1. Pt would benefit from SNF. Diagnosis: Complicated UTI Prognosis: excellent Performance Deficits /Impairments: Decreased Functional Mobility Decision Making: Medium Complexity Subjective Pt agreeable for therapy. Pt is pleasantly confused. Pt is A&Ox1. 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 Depression History of blood transfusion Hyperlipidemia Hypertension Type II or unspecified type diabetes mellitus without mention of complication, not stated as uncontrolled ([facility]) Past Surgical History: Past Surgical History: Procedure Laterality Date BREAST LUMPECTOMY Left BREAST LUMPECTOMY Left 2013 s/p radiation as well CATARACT EXTRACTION W/ INTRAOCULAR LENS IMPLANT Bilateral 10/2015, 12/2015 SECTION (HISTORICAL) CHOLECYSTECTOMY DILATION AND CURETTAGE OF UTERUS FEMUR FRACTURE SURGERY Right 11/30/2019 HIP ARTHROPLASTY Right 01/21/2020 conversion JOINT REPLACEMENT Bilateral ROTATOR CUFF REPAIR Right TOTAL ABDOMINAL HYSTERECTOMY Admission Diagnosis: Patient Active Problem List Diagnosis Date Noted Complicated UTI (urinary tract infection) 01/11/2024 Closed fracture of multiple ribs of right side, initial encounter 12/12/2023 Weakness 10/03/2022 Hyperglycemia 10/03/2022 Noncompliance with treatment regimen 06/30/2022 UTI (urinary tract infection) 11/29/2019 Closed fracture of one rib of left side 08/01/2021 Hemothorax 08/01/2021 Anticoagulated 08/01/2021 Mood disorder ([facility]) 11/13/2020 Hip fracture requiring operative repair, right, closed, initial encounter ([facility]) 01/21/2020 E-coli UTI 12/01/2019 H/O: CVA (cerebrovascular accident) 11/29/2019 Tobacco dependence syndrome 11/29/2019 Memory impairment 11/29/2019 Fall 11/29/2019 Leukocytosis 11/29/2019 Closed fracture of hip ([facility]) 11/29/2019 Unsteady gait 11/29/2019 Type 2 diabetes mellitus with hyperglycemia, with long-term current use of insulin ([facility]) 11/29/2019 Acute cystitis 11/29/2019 Obesity 11/29/2019 Atrial fibrillation ([facility]) 11/29/2019 Hypomagnesemia 02/18/2019 History of radial keratotomy 01/31/2017 Examination of participant in clinical trial 02/03/2016 Malignant neoplasm of upper-outer quadrant of female breast ([facility]) 02/03/2016 Psychophysiological insomnia 05/06/2015 Essential hypertension 05/06/2015 Mixed anxiety depressive disorder 05/06/2015 Hyperlipidemia 05/06/2015 Medical Precautions: No active isolations Proper PPE donned/doffed in accordance with facility standards. Fall Risk: Loyd Fall Risk Score: 85 (High Risk) Precautions/Restrictions: periwick catheter, bed alarm Family/Caregiver Present: none Overall Cognitive Status: Exceptions - Arousal/alertness: appropriate responses to stimuli - Following commands: follows one step commands consistently - Attention span: appears intact - Memory: decreased recall of recent events, decreased short term memory, and decreased nursing home memory - Safety judgement: decreased awareness of need for assistance - Problem solving: assistance required to generate solutions and assistance required to implement solutions - Insights: decreased awareness of deficits - Initiation: requires cues for some - Sequencing: requires cues for some Overall Orientation Status: Oriented to Person, Disoriented to Situation, Disoriented to Time, and Disoriented to Place Vision: wears glasses for reading and and are NOT being used during the eval Hearing: normal Social/Functional History Patient admitted from SNF. Assistive Equipment: front wheeled walker Prior Level of Function ADL Assistance: Needs Assist Ambulation Assistance: Needs Assistance Transfer Assistance: Needs Assist Poor historian. Pt reports using walker previously Objective Lower Extremity Assessment AROM: WFL PROM: Not assessed this session Strength: WFL-BLE is 4-/5; BUE is 4-/5 Bed Mobility: Pt sitting on EOB upon arrival. Transfers Sit to stand: Min Assist Stand to sit: Min Assist Ambulation Ambulation 1 Assistive device(s) used: front wheeled walker Assist level: Min Assist Distance (ft): 40 feet x1 Quality of gait: narrow LUCA Sensation: [facility] Outcome Measures AM-PAC How much HELP from another person do you currently need Turning from your back to your side while in a flat bed without using bedrails?: A Little Moving from lying on your back to sitting on the side of a flat bed without using bedrails?: A Little Moving to and from a bed to a chair (including a wheelchair)?: A Little Standing up from a chair using your arms (wheelchair or bedside chair)?: A Little Walking in a hospital room?: A Little Stair climbing assessed?: No AM-PAC Inpatient Mobility Raw Score (No Stairs) : 15 JH-HLM JH-HLM Score: Walked 25 ft or more (i.e. walked outside of room) Plan Pt would benefit from skilled acute PT services to address Strengthening, ROM, Balance Training, Functional Mobility Training, Endurance Training, Gait Training, Stair Training, Safety Education and Training, and Patient/Caregiver Training. Frequency: 3x/week for 2 weeks Barriers: Confusion Safety/Education Safety Safety Devices in place: call light within reach, left in bed, bed alarm in place, gait belt, patient at risk for falls, and nurse notified Restraints: N/A Education Education Given To: patient Education Provided: PT Role, PT Goals, and Plan of Care Education Method: Verbal Barriers to Learning: None Education Outcome: Verbalized Understanding Goals Patient Stated Goal: no goal stated Encounter Problems Encounter Problems (Active) Mobility Patient will ambulate 175 feet with supervision and least restrictive device in order to improve safety and independence with mobility. Start: 01/11/24 Expected End: 01/25/24 Pain - Adult Transfers Patient will perform bed mobility with supervision in order to improve independence and prepare for out of bed mobility. Start: 01/11/24 Expected End: 01/25/24 Patient will complete functional transfer with least restrictive device with supervision in order to prepare for ambulation. Start: 01/11/24 Expected End: 01/25/24 Therapy Time Individual Co-treatment Time In 1326 Time Out 1335 Minutes 9 Darrin Guerrero PT Patient's Physical Therapy Plan of Care supervision is transferred to a [facility] Therapy Services Physical Therapist. Goals and/or treatment plan was established in collaboration with patient/family/other representatives. Brief note - pt admitted early this AM by my partner for a fall at snf Pt pleasantly confused and not able to provide much additional history Has UTI - continue rocephin and await culture - PT eval documented in this encounter [facility] 01-15-2024 Miscellaneous Notes Patient Choice Patient Name: BEVERLY AGEE Date of : 1945 All Providers Sent Referral Name: Yung Phone: [phone] Address: [address] [place] [address] [place] [address] 7000 was entered into [facility] Tasked [facility] to complete the 7000 for this pt as pt was discharged to the community so will need the 7000 completed again. Confirmed via email from [facility] that Femi Hinkle will transport pt to [facility] at 3pm this afternoon. Notified snf of discharge time via Ceon message; reviewed time with RN and TCC. Called sohail Barger to update on discharge time/plan; he is agreeable. Discharge med list, MAR and updated notes transmitted to [facility] via [facility] per TCC request. Initiated transport to [facility] via [facility]; requested pickup at 2pm. Awaiting confirmation and then will update staff. Discharge order to pt chart, SEAN completed. Auth obtained from [facility] for [facility]. Secure chat with attending, floor SN and SW, verified okay for pt to go to SNF; Pt is ready to go anytime per SN. Tasked SW via [employer] to set up transport(also included in secure chat). Tasked INSURANCE RISK MANAGER to send discharge orders to [facility]. Secure chat to [facility] to verify if able to use prior 7000 form completed on 12/23. If unable to use will task INSURANCE RISK MANAGER to complete the 7000 form. Await Transport time. TCC will continue to follow through discharge. Care Managment Initial Assessment Date: 01/14/2024 Patient Name: Beverly Agee : 1945 Patient Information Source of Information: Patient, Patient Honing Machine Try Out Setter Name/Contact Information: Sohail Agee Cognition/Language: Confused at baseline, Impaired Permission given to speak with patient plastic products sales representative/caregiver as indicated: Yes (Charbel Agee POA) Confirmation of Payer with patient/family: Yes Payer Name: Alex Medicare [place]: Confirmation of Primary Care Physician: Confirmed PCP Name: Dr Iqbal Primary Caregiver: Other (Comment) (Pt from home but had just left SNF the day she was admitted here. Cares for self in home with assist of her Son, but per son will need add assistance in the home.) If assistance needed, confirmed caregiver ready, willing and able to care for patient at discharge: Yes Confirmed with: Son is willing and able to assist, but will need further assistance once returns home. Living Arrangements Current Residence: House Number of Floors 1 Number of Entry Steps: 1 Bed/Bath Levels: Both first floor Facility: Nursing Facility Skilled Facility Name: Pt had just discharged from SNF to home the same day she came here. Plan to Return: Comments (Pt wants to return to her home eventually, but agreeable to go to SNF at this time.) Lives with: Children Support Systems: Children Activities of Daily Living Ambulation: Assistance Bathing/Dressing: Assistance Elimination/Continence/Toileting: Assistance Feeding: Independent Who Assists with Activities of Daily Living: SNF staff was assisting pt, prior to SNF admit pt was independent. Instrumental Activities of Daily Living Prescription Coverage: Yes Pharmacy Used: [facility] [address], [place] Medication Management: Prescription pick-up Who assists with medication securing and setup?: Family picked edge sewing machine operator scripts for pt. Transportation/Shopping: Assistance Provider Transportation/Shopping Assistance Provider Name: Family Transportation Mode: Car Needs Assistance with Transportation at Discharge: Yes, Comments (SW to assist with transport to SNF.) Meal Preparation: Assistance Provider Meal Prep Assistance Provider Name: SNF staff was assisting pt, prior to SNF admit pt received Meals on wheels. Laundry/Cleaning: Assistance Provider Laundry/Cleaning Assistance Provider Name: SNF staff was assisting pt, prior to SNF admit pt paid privately for assistance. Finances/Bill Paying: Assistance Provider Finances/Bill Payer Assistance Provider Name: , Sohail Communication: Independent Types of Care Services/Equipment Utilized Care Services: (Pt was to start HHC, but ended up in the hospital prior to HHC starting.) Dialysis Type: NA Durable Medical Equipment: Walker, Cane, Shower Seat, Glucometer Patient's Goal/Discharge Plan Patient expects to be discharged to: SNF, prior to returning to her home. Discharge Planning Actions: Continue to follow Patient's Choice Rights and [employer] and Collaborative Relationships Disclosed as Indicated for Post-Acute Care: NA Interdisciplinary Team Engagement: Social Work Referral for: Transportation Assistance, Direction Home Waiver, Community Resources Additional Information: IA done. Spoke with pt at bedside, introduced self and role. Pt is alert and oriented to person and place. Verified personal information mainly from prior admit IA, as pt not a good historian. PT/OT recommend SNF. Spoke with pt and she is agreeable to go to SNF for ST rehab. Discussed prior admit to [facility]. Pt agreeable to returning to this SNF. Call placed to Charbel Agee pt's, Son and HCPOA. Discussed the MD's are looking to discharge pt, but therapy recommending SNF stay. Pt reported agreeable to return to [facility] where she had been previous. Son agreeable. Son reporting that would like pt to return home eventually but will need more assistance. Discussed talking with SW at SNF to see if able to get enrolled with DH to provide add assist in the home and to make sure HHC involved at discharge again after SNF stay. Son also noting need to have pt evaluated for dementia. Discussed talking with PCP and follow up with the [facility], but may need referrral from PCP. Son stated understanding. Discussed will check facility willing to accept and then will submit for auth from ins, once received pt can transfer to SNF. Noted will talk again if facility not able to accept. Son agreeable to plan. Will print a PD list for pt and family for when pt goes home as well, so may be able to have this set up prior to discharge from SNF. [employer] task to INSURANCE RISK MANAGER to submit referral for SNF to [facility]. [facility] willing to accept pt and have a bed available. Notified will start auth and pt will be ready to come to SNF once we have auth. [employer] task to Process Stripper Gwen Martinez to obtain auth for pt to go to [facility]. Plan SNF and SW to assist with transport. Pt and Son agreeable to plan and deny questions at this time. TCC will continue to follow. Mary Adam RN Referral [facility] request. Await review and response regarding ability to accept. TCC notified. [facility]. Await review and response regarding ability to accept. TCC notified. Patient was pending a start of care with [facility] on 01/12/24 prior to current admission. Bowling Ball Marker following case for Discharge Needs. documented in this encounter [facility] 01-15-2024 Note Formatting of this n ote might be different from the original. Patient Choice Patient Name: BEVERLY AGEE Date of : 1945 All Providers Sent Referral Name: Yung Phone: [phone] Address: [address] [place] [id number] [facility] 01-15-2024 Note Formatting of this n ote might be different from the original. Patient Choice Patient Name: BEVERLY AGEE Date of : 1945 All Providers Sent Referral Name: Yung Phone: [phone] Address: [address] [place] [id number] [facility] 01-15-2024 Note Formatting of this n ote might be different from the original. 7000 was entered into [employer] for the SNF- [employer] [facility] 01-15-2024 Note Formatting of this n ote might be different from the original. 7000 was entered into [employer] for the SNF- [facility] 01-15-2024 Note Formatting of this n ote might be different from the original. Tasked INSURANCE RISK MANAGER to complete the 7000 for this pt as pt was discharged to the community so will need the 7000 completed again. [facility] 01-15-2024 Note Formatting of this n ote might be different from the original. Tasked [facility] to complete the 7000 for this pt as pt was discharged to the community so will need the 7000 completed again. [facility] 01-15-2024 Note Formatting of this n ote might be different from the original. Confirmed via email from [facility] that Femi Hinkle will transport pt to [facility] at 3pm this afternoon. Notified snf of discharge time via [facility] message; reviewed time with RN and TCC. Called sohail Barger to update on discharge time/plan; he is agreeable. [facility] 01-15-2024 Note Formatting of this n ote might be different from the original. Confirmed via email from [facility] that Femi Hinkle will transport pt to [facility] at 3pm this afternoon. Notified snf of discharge time via [facility] message; reviewed time with RN and TCC. Called sohail Barger to update on discharge time/plan; he is agreeable. [facility] 01-15-2024 Note Formatting of this n ote might be different from the original. Discharge med list, MAR and updated notes transmitted to [facility] via Careport per TCC request. [facility] 01-15-2024 Note Formatting of this n ote might be different from the original. Discharge med list, MAR and updated notes transmitted to [facility] via [facility] per TCC request. [facility] 01-15-2024 Note Formatting of this n ote might be different from the original. Initiated transport to [facility] via Round Trip; requested pickup at 2pm. Awaiting confirmation and then will update staff. [facility] 01-15-2024 Note Formatting of this n ote might be different from the original. Initiated transport to [facility] via Round Trip; requested pickup at 2pm. Awaiting confirmation and then will update staff. [facility] 01-15-2024 Note Formatting of this n ote might be different from the original. Discharge order to pt chart, SEAN completed. Auth obtained from [facility] for [facility]. Secure chat with attending, floor SN and SW, verified okay for pt to go to [facility]; Pt is ready to go anytime per SN. Tasked SW via [facility] to set up transport(also included in secure chat). Tasked INSURANCE RISK MANAGER to send discharge orders to [facility]. Secure chat to [facility] to verify if able to use prior 7000 form completed on 12/23. If unable to use will task INSURANCE RISK MANAGER to complete the 7000 form. Await Transport time. TCC will continue to follow through discharge. [facility] 01-15-2024 Note Formatting of this n ote might be different from the original. Discharge order to pt chart, SEAN completed. Auth obtained from [facility] for [facility]. Secure chat with attending, floor SN and SW, verified okay for pt to go to SNF; Pt is ready to go anytime per SN. Tasked SW via [facility]port to set up transport(also included in secure chat). Tasked INSURANCE RISK MANAGER to send discharge orders to [facility]. Secure chat to [facility] to verify if able to use prior 7000 form completed on 12/23. If unable to use will task INSURANCE RISK MANAGER to complete the 7000 form. Await Transport time. TCC will continue to follow through discharge. [facility] 01-15-2024 Hospital course Narrative Images from the original note were not included. Hospitalist Discharge Summary Beverly Agee : 1945 Admit date: 01/10/2024 Discharge date: 01/15/2024 Admitting Physician: Mónica Tiwari MD Primary Care Physician: NENO IQBAL MD Code Status: DNR-CCA 78-year-old female presented with a fall Acute, acute on chronic, unstable/uncontrolled chronic problems/diagnoses: Urinary tract infection/cystitis patient has completed course of Rocephin Stable chronic problems affecting care, new non-acute diagnoses: Recent fall with hemothorax and rib fracture. 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 Consults: IP WOUND CARE NURSE CONSULT TO EVAL Discharge Instructions: Diet: Dietary Orders (From admission, onward) Start Ordered 01/11/24 0326 Adult diet Regular; 5 carb choices (75 gm/meal); 1500 ml Diet effective now Question Answer Comment Diet type Regular Carbohydrate restriction: 5 carb choices (75 gm/meal) Dietary fluid restriction / 24h: 1500 ml 01/11/24 0325 Activity: as tolerated Recommended Outpatient Tests: Vitals: BP 133/64 Pulse 71 Temp (!) 35.7 C (96.3 F) (Temporal) Resp 18 Ht 5' 6" (1.676 m) Wt 160 lb (72.6 kg) SpO2 100% BMI 25.82 kg/m Pulse Ox: SpO2 Av.5 % Min: 99 % Max: 100 % Supplemental O2: LABS: No results for input(s): "NA", "K", "CL", "CO2", "BUN", "CREATININE", "GLUCOSE", "CALCIUM" in the last 72 hours. No results for input(s): "WBC", "RBC", "HGB", "HCT", "MCV", "MCH", "MCHC", "RDW", "PLT", "MPV" in the last 72 hours. Discharge Medications: Medication List CONTINUE taking these medications acetaminophen 500 MG tablet Commonly known as: Tylenol Take 2 tablets (1,000 mg) by mouth in the morning and 2 tablets (1,000 mg) at noon and 2 tablets (1,000 mg) before bedtime. Do all this for 10 days. cyanocobalamin 1000 MCG tablet Commonly known as: Vitamin B-12 ergocalciferol 1.25 MG (10351 UT) capsule Commonly known as: Vitamin D2 Take 1 capsule (1.25 mg) by mouth 1 (one) time per week for 2 doses. famotidine 20 MG tablet Commonly known as: Pepcid Take 1 tablet (20 mg) by mouth 2 times daily as needed for heartburn (heartburn). fenofibrate 54 MG tablet Commonly known as: Tricor Take 1 tablet (54 mg) by mouth daily. folic acid 1 MG tablet Commonly known as: Folvite Take 1 tablet (1 mg) by mouth daily. insulin glargine 100 UNIT/ML injection Commonly known as: Lantus Inject 13 Units under the skin 2 times daily. Insulin Lispro 100 UNIT/ML solution injection Commonly known as: Humalog Dosage Start Date End Date Remaining doses 0-18 Units 3 times daily (with meals) High Dose Correction AlgorithmGlucose: Dose: LESS than 139 No [id number] ipratropium-albuterol 0.5-2.5 mg/3 mL nebulizer solution Commonly known as: Duo-Neb Take 3 mL by nebulization 2 times daily as needed for wheezing. losartan 25 MG tablet Commonly known as: Cozaar Take 1 tablet (25 mg) by mouth daily. magnesium oxide 400 (240 Mg) MG tablet Commonly known as: Mag-Ox Take 1 tablet (400 mg) by mouth 2 times daily. melatonin 5 MG tablet Take 1 tablet (5 mg) by mouth Nightly. pravastatin 80 MG tablet Commonly known as: Pravachol Take 1 tablet (80 mg) by mouth in the morning. sennosides 8.6 MG tablet Commonly known as: Senokot Take 1 tablet (8.6 mg) by mouth Nightly. traZODone 50 MG tablet Commonly known as: Desyrel * venlafaxine XR 75 MG 24 hr capsule Commonly known as: Effexor XR Take 1 capsule (75 mg) by mouth Nightly. Do not crush or chew. * venlafaxine XR 150 MG 24 hr capsule Commonly known as: Effexor XR Take 1 capsule (150 mg) by mouth daily (with breakfast). Do not crush or chew. Xarelto 20 MG tablet Generic drug: rivaroxaban TAKE 1 TABLET BY MOUTH EVERY MORNING WITH BREAKFAST * This list has 2 medication(s) that are the same as other medications prescribed for you. Read the directions carefully, and ask your doctor or other care provider to review them with you. Where to Get Your Medications Information about where to get these medications is not yet available Ask your nurse or doctor about these medications acetaminophen 500 MG tablet ergocalciferol 1.25 MG (88504 UT) capsule Recommended Follow-up: No follow-up provider specified. Complexity of Follow up: [] Moderate Complexity: follow up within 7-14 calendar days (03053) [x] Severe Complexity: follow up within 7 calendar days (12330) Follow up Testing, Pending results or Referrals at Transitional Care Visit: [x] yes [] no Instructions to MA: Please call patient on day after discharge (must document patient contacted within 2 business days of discharge). Follow up questions for MA: 1. Did you get medications filled and taking them as instructed from discharge? 2. Are you following your discharge instructions from your hospital stay? 3. Please confirm patient is scheduled for a follow up appointment within the above time frame. Signed: Graciela Ledbetter DO Division of Hospitalist Medicine [facility] 01/15/2024, 12:08 PM documented in this encounter [facility] 01-14-2024 Note Formatting of this n ote might be different from the original. Care Managment Initial Assessment Date: 01/14/2024 Patient Name: Beverly Agee : 1945 Patient Information Source of Information: Patient, Patient Honing Machine Try Out Setter Name/Contact Information: Sohail Agee Cognition/Language: Confused at baseline, Impaired Permission given to speak with patient plastic products sales representative/caregiver as indicated: Yes (Charbel Agee POA) Confirmation of Payer with patient/family: Yes Payer Name: Alex [employer] [place]: Confirmation of Primary Care Physician: Confirmed PCP Name: Dr Iqbal Primary Caregiver: Other (Comment) (Pt from home but had just left SNF the day she was admitted here. Cares for self in home with assist of her Son, but per son will need add assistance in the home.) If assistance needed, confirmed caregiver ready, willing and able to care for patient at discharge: Yes Confirmed with: Son is willing and able to assist, but will need further assistance once returns home. Living Arrangements Current Residence: House Number of Floors 1 Number of Entry Steps: 1 Bed/Bath Levels: Both first floor Facility: Nursing Facility Skilled Facility Name: Pt had just discharged from SNF to home the same day she came here. Plan to Return: Comments (Pt wants to return to her home eventually, but agreeable to go to SNF at this time.) Lives with: Children Support Systems: Children Activities of Daily Living Ambulation: Assistance Bathing/Dressing: Assistance Elimination/Continence/Toileting: Assistance Feeding: Independent Who Assists with Activities of Daily Living: SNF staff was assisting pt, prior to SNF admit pt was independent. Instrumental Activities of Daily Living Prescription Coverage: Yes Pharmacy Used: [address], [place] Medication Management: Prescription pick-up Who assists with medication securing and setup?: Family picked edge sewing machine operator scripts for pt. Transportation/Shopping: Assistance Provider Transportation/Shopping Assistance Provider Name: Family Transportation Mode: Car Needs Assistance with Transportation at Discharge: Yes, Comments (SW to assist with transport to SNF.) Meal Preparation: Assistance Provider Meal Prep Assistance Provider Name: SNF staff was assisting pt, prior to SNF admit pt received Meals on wheels. Laundry/Cleaning: Assistance Provider Laundry/Cleaning Assistance Provider Name: SNF staff was assisting pt, prior to SNF admit pt paid privately for assistance. Finances/Bill Paying: Assistance Provider Finances/Bill Payer Assistance Provider Name: Family, Sohail Communication: Independent Types of Care Services/Equipment Utilized Care Services: (Pt was to start HHC, but ended up in the hospital prior to HHC starting.) Dialysis Type: NA Durable Medical Equipment: Walker, Cane, Shower Seat, Glucometer Patient's Goal/Discharge Plan Patient expects to be discharged to: SNF, prior to returning to her home. Discharge Planning Actions: Continue to follow Patient's Choice Rights and [employer] and Collaborative Relationships Disclosed as Indicated for Post-Acute Care: NA Interdisciplinary Team Engagement: Social Work Referral for: Transportation Assistance, Direction Home Waiver, Community Resources Additional Information: IA done. Spoke with pt at bedside, introduced self and role. Pt is alert and oriented to person and place. Verified personal information mainly from prior admit IA, as pt not a good historian. PT/OT recommend SNF. Spoke with pt and she is agreeable to go to SNF for ST rehab. Discussed prior admit to [facility]. Pt agreeable to returning to this SNF. Call placed to Charbel Agee pt's, Son and HCPOA. Discussed the MD's are looking to discharge pt, but therapy recommending SNF stay. Pt reported agreeable to return to [facility] where she had been previous. Son agreeable. Son reporting that would like pt to return home eventually but will need more assistance. Discussed talking with SW at SNF to see if able to get enrolled with DH to provide add assist in the home and to make sure HHC involved at discharge again after SNF stay. Son also noting need to have pt evaluated for dementia. Discussed talking with PCP and follow up with the [facility], but may need referrral from PCP. Son stated understanding. Discussed will check facility willing to accept and then will submit for auth from [facility], once received pt can transfer to SNF. Noted will talk again if facility not able to accept. Son agreeable to plan. Will print a PD list for pt and family for when pt goes home as well, so may be able to have this set up prior to discharge from SNF. [facility]port task to [facility] to submit referral for SNF to [facility]. [facility] willing to accept pt and have a bed available. Notified will start auth and pt will be ready to come to SNF once we have auth. Careport task to Process Stripper Gwen Martinez to obtain auth for pt to go to [facility]. Plan SNF and SW to assist with transport. Pt and Son agreeable to plan and deny questions at this time. TCC will continue to follow. Mary Adam RN [facility] 01-14-2024 Note Formatting of this n ote might be different from the original. Care Managment Initial Assessment Date: 01/14/2024 Patient Name: Beverly Agee : 1945 Patient Information Source of Information: Patient, Patient Honing Machine Try Out Setter Name/Contact Information: Sohail Agee Cognition/Language: Confused at baseline, Impaired Permission given to speak with patient plastic products sales representative/caregiver as indicated: Yes (Charbel Agee DAINA) Confirmation of Payer with patient/family: Yes Payer Name: [employer] [place]: Confirmation of Primary Care Physician: Confirmed PCP Name: Dr Iqbal Primary Caregiver: Other (Comment) (Pt from home but had just left SNF the day she was admitted here. Cares for self in home with assist of her Son, but per son will need add assistance in the home.) If assistance needed, confirmed caregiver ready, willing and able to care for patient at discharge: Yes Confirmed with: Son is willing and able to assist, but will need further assistance once returns home. Living Arrangements Current Residence: House Number of Floors 1 Number of Entry Steps: 1 Bed/Bath Levels: Both first floor Facility: Nursing Facility Skilled Facility Name: Pt had just discharged from SNF to home the same day she came here. Plan to Return: Comments (Pt wants to return to her home eventually, but agreeable to go to SNF at this time.) Lives with: Children Support Systems: Children Activities of Daily Living Ambulation: Assistance Bathing/Dressing: Assistance Elimination/Continence/Toileting: Assistance Feeding: Independent Who Assists with Activities of Daily Living: SNF staff was assisting pt, prior to SNF admit pt was independent. Instrumental Activities of Daily Living Prescription Coverage: Yes Pharmacy Used: [facility] [address], [place] Medication Management: Prescription pick-up Who assists with medication securing and setup?: Family picked edge sewing machine operator scripts for pt. Transportation/Shopping: Assistance Provider Transportation/Shopping Assistance Provider Name: Family Transportation Mode: Car Needs Assistance with Transportation at Discharge: Yes, Comments (SW to assist with transport to SNF.) Meal Preparation: Assistance Provider Meal Prep Assistance Provider Name: SNF staff was assisting pt, prior to SNF admit pt received Meals on wheels. Laundry/Cleaning: Assistance Provider Laundry/Cleaning Assistance Provider Name: SNF staff was assisting pt, prior to SNF admit pt paid privately for assistance. Finances/Bill Paying: Assistance Provider Finances/Bill Payer Assistance Provider Name: Family, Sohail Communication: Independent Types of Care Services/Equipment Utilized Care Services: (Pt was to start HHC, but ended up in the hospital prior to HHC starting.) Dialysis Type: NA Durable Medical Equipment: Walker, Cane, Shower Seat, Glucometer Patient's Goal/Discharge Plan Patient expects to be discharged to: SNF, prior to returning to her home. Discharge Planning Actions: Continue to follow Patient's Choice Rights and [employer] and Collaborative Relationships Disclosed as Indicated for Post-Acute Care: NA Interdisciplinary Team Engagement: Social Work Referral for: Transportation Assistance, Direction Home Waiver, Community Resources Additional Information: SAVANA done. Spoke with pt at bedside, introduced self and role. Pt is alert and oriented to person and place. Verified personal information mainly from prior admit IA, as pt not a good historian. PT/OT recommend SNF. Spoke with pt and she is agreeable to go to SNF for ST rehab. Discussed prior admit to [facility]. Pt agreeable to returning to this SNF. Call placed to Charbel Félix pt's, Son and HCPOA. Discussed the MD's are looking to discharge pt, but therapy recommending SNF stay. Pt reported agreeable to return to [facility] where she had been previous. Son agreeable. Son reporting that would like pt to return home eventually but will need more assistance. Discussed talking with SW at SNF to see if able to get enrolled with DH to provide add assist in the home and to make sure HHC involved at discharge again after SNF stay. Son also noting need to have pt evaluated for dementia. Discussed talking with PCP and follow up with the [facility], but may need referrral from PCP. Son stated understanding. Discussed will check facility willing to accept and then will submit for auth from ins, once received pt can transfer to SNF. Noted will talk again if facility not able to accept. Son agreeable to plan. Will print a PD list for pt and family for when pt goes home as well, so may be able to have this set up prior to discharge from SNF. Careport task to INSURANCE RISK MANAGER to submit referral for SNF to [facility]. [facility] willing to accept pt and have a bed available. Notified will start auth and pt will be ready to come to SNF once we have auth. Careport task to Process Stripper Gwen Martinez to obtain auth for pt to go to [facility]. Plan SNF and SW to assist with transport. Pt and Son agreeable to plan and deny questions at this time. TCC will continue to follow. Mary Adam RN T [facility] 01-14-2024 Note Formatting of this n ote might be different from the original. Referral placed to SNF-[facility] via Careport per TCC request. Await review and response regarding ability to accept. TCC notified. [facility] 01-14-2024 Note Formatting of this n ote might be different from the original. Referral placed to [facility] via Careport per TCC request. Await review and response regarding ability to accept. TCC notified. [facility] 01-14-2024 Hospital Discharge instructions Mary Adam RN - 01/14/2024 9:00 AM EDT Continuity of Care Form Patient Name: Beverly Agee : 1945 Admit date: 01/10/2024 Discharge date: Code Status Order: DNR-CCA Advance Directives: Y Admitting Physician: Mónica Tiwari MD PCP: NENO IQBAL MD Discharging Nurse: Discharging Hospital Unit/Room#: W7-545/[id number] A Discharging Unit Phone Number: Emergency Contact: Extended Emergency Contact Information Primary Emergency Contact: Félix ANDRECharbel Bautista Relation: Child Secondary Emergency Contact: Marbin Agee Relation: Child Past Surgical History: Past Surgical History: Procedure Laterality Date BREAST LUMPECTOMY Left BREAST LUMPECTOMY Left 2012 s/p radiation as well CATARACT EXTRACTION W/ INTRAOCULAR LENS IMPLANT Bilateral 10/2015, 12/2015 SECTION (HISTORICAL) CHOLECYSTECTOMY DILATION AND CURETTAGE OF UTERUS FEMUR FRACTURE SURGERY Right 11/30/2019 HIP ARTHROPLASTY Right 01/21/2020 conversion JOINT REPLACEMENT Bilateral ROTATOR CUFF REPAIR Right TOTAL ABDOMINAL HYSTERECTOMY Immunization History: Immunization History Administered Date(s) Administered Influenza Whole 06/27/2012, 05/21/2013 Influenza, High Dose Seasonal, Preservative Free 08/11/2015, 08/07/2016, 06/06/2017, 07/02/2017, 07/21/2019, 06/28/2022 Influenza, High-dose Seasonal, Quadrivalent, Preservative Free 07/04/2021 Influenza, Unspecified 06/27/2012, 05/21/2013, 07/10/2014 Influenza, seasonal, injectable 07/10/2014, 08/11/2015 Pfizer SARS-CoV-2 Vaccination 11/12/2020, 12/02/2020, 06/16/2021 Pneumococcal Conjugate PCV 13 08/11/2015 Pneumococcal Conjugate, Unspecified 08/01/2012 Pneumococcal Polysaccharide PPSV23 08/07/2016 Active Problems: Medical Problems Problem List * (Principal) Complicated UTI (urinary tract infection) Noncompliance with treatment regimen Weakness UTI (urinary tract infection) Hyperglycemia Closed fracture of multiple ribs of right side, initial encounter Mood disorder (HCC) Overview Signed 06/23/2022 9:33 AM by Corin Lucero MA Last Assessment & Plan: Unsure ofstability of patient on Effexor and Remeron and compliance for diabetic management. Closed fracture of one rib of left side Hemothorax Anticoagulated H/O: CVA (cerebrovascular accident) Tobacco dependence syndrome Hip fracture requiring operative repair, right, closed, initial encounter ([facility]) Memory impairment Examination of participant in clinical trial Malignant neoplasm of upper-outer quadrant of female breast (HCC) Fall Leukocytosis Closed fracture of hip (HCC) Unsteady gait Type 2 diabetes mellitus with hyperglycemia, with long-term current use of insulin (HCC) Acute cystitis E-coli UTI Obesity History of radial keratotomy Psychophysiological insomnia Hypomagnesemia Essential hypertension Overview Signed 06/23/2022 9:33 AM by Corin Lucero MA Last Assessment & Plan: Controlled on losartan. Mixed anxiety depressive disorder Hyperlipidemia Overview Signed 06/23/2022 9:33 AM by Corin Lucero MA Last Assessment & Plan: Uncertain control since patient has not had any lab work done on pravastatin. Atrial fibrillation (HCC) Isolation/Infection: No active isolations No active infections Nurse Assessment: Last Vital Signs: BP 115/64 (BP Location: Right arm, Patient Position: Lying) Pulse 94 Temp 36.2 C (97.1 F) (Temporal) Resp 18 Ht 5' 6" (1.676 m) Wt 160 lb (72.6 kg) SpO2 97% BMI 25.82 kg/m Last documented pain score (0-10 scale): Last Weight: Wt Readings from Last 1 Encounters: 01/10/24 160 lb (72.6 kg) Mental Status: {SEAN Patient Mental Status:42198} IV Access: {SEAN IV Access:71747} Nursing Mobility/ADLs: Walking {LIMA ADL:24765::"Independent"} Transfer {LIMA ADL:48250::"Independent"} Bathing {LIMA ADL:88480::"Independent"} Dressing {LIMA ADL:57129::"Independent"} Toileting {LIMA ADL:84428::"Independent"} Feeding {LIMA ADL:::"Independent"} Photography Intern {LIMA ADL:::"Independent"} Med Delivery {yes/no:86907} Wound Care Documentation and Therapy: Wound/Incision 12/12/23 Pressure Injury Sacrum Medial (Active) Site Assessment Red 01/11/242216 Drainage Description Red 01/11/24 0406 Odor None 01/11/242216 Drainage Amount None 01/11/242216 Treatments Pharmaceutical agent 01/11/242216 Primary Dressing Open to air 01/11/242216 Number of days: 32 Wound/Incision 12/17/23 Incision Flank Right (Active) Site Assessment Clean;Dry;Intact 01/12/242137 Odor None 01/11/242216 Drainage Amount None 01/11/242216 Primary Dressing Open to air 01/12/242137 Dressing Status Clean, dry & intact 01/11/242216 Number of days: 28 Wound/Incision 01/11/24 Incision Back Right (Active) Site Assessment Dry;Intact 01/11/242216 Odor None 01/11/242216 Drainage Amount None 01/11/242216 Primary Dressing Open to air 01/11/242216 Number of days: 3 Wound/Incision 01/12/24 Traumatic Ischium Right;Lateral (Active) Number of days: 1 Elimination: Continence: Bowel: {yes/no:64525} Bladder: {yes/no:83869} Urinary Catheter: {SEAN Urinary Catheter:56969} Colostomy/Ileostomy/Ileal Conduit: {YES / NO:} Date of Last BM: No intake or output data in the 24 hours ending 01/14/24 0900 I/O last 3 completed shifts: In: 120 (1.7 mL/kg) [P.O.:120] Out: - (0 mL/kg) Weight: 72.6 kg Safety Concerns: {SEAN Safety Concerns:38229} Impairments/Disabilities: {SEAN Impairments/Disabilities:47344} Nutrition Therapy: Current Nutrition Therapy: {SEAN Diet List:38576} Routes of Feeding: {routes of feedin} Liquids: {liquid consistency:24307} Daily Fluid Restriction: {daily fluid restriction:27489} Last Modified Barium Swallow with Video (Video Swallowing Test): {done not done:64055} Treatments at the Time of Hospital Discharge: Respiratory Treatments: Oxygen Therapy: {Therapy; copd oxygen:70425} Ventilator: {SEAN Ventilator:49509} Rehab Therapies: {GEN THERAPY DISCIPLINE SCAL:4999640} Weight Bearing Status/Restrictions: {POD WEIGHT BEARIN} Other Medical Equipment (for information only, NOT a DME order): {Assistive Devices DME:66410} Other Treatments: Patient's personal belongings (please select all that are sent with patient): {SEAN Patient Belongings:26114} RN SIGNATURE: {E-signature:01960} CASE MANAGEMENT/SOCIAL WORK SECTION Inpatient Status Date: 01/11/2024 Readmission Risk Assessment Score: @READMISSIONRISKDETAILS@ Discharging to Facility/ Agency Name: [facility] Address: [address] [place] [address] [address] [place] [address] Fax: Dialysis Facility (if applicable) Name: Address: Dialysis Schedule: Phone: Fax: [employer] Technician/Roll Dough Divider signature: ICIAN SECTION Prognosis: good Condition at Discharge: stable Rehab Potential (if transferring to Rehab): good Recommended Labs or Other Treatments After Discharge: none Physician Certification: I certify the above information and transfer of Beverly Agee is necessary for the continuing treatment of the diagnosis listed and that she requires intermediate facility for less than 30 days. Update Admission H&P: No change in H&P PHYSICIAN SIGNATURE: documented in this encounter [facility] 01-14-2024 Note Formatting of this n ote might be different from the original. Referral placed to RETURN [facility] via [facility] per TCC request. Await review and response regarding ability to accept. TCC notified. [facility] 01-14-2024 Note Formatting of this n ote might be different from the original. Referral placed to RETURN [facility] via [facility] per TCC request. Await review and response regarding ability to accept. TCC notified. [facility] 01-11-2024 Note Formatting of this n ote might be different from the original. Patient was pending a start of care with [facility] on 01/12/24 prior to current admission. Bowling [employer] Marker following case for Discharge Needs. [facility] 01-11-2024 Note Formatting of this n ote might be different from the original. Patient was pending a start of care with [facility] on 01/12/24 prior to current admission. [employer] Marker following case for Discharge Needs. [facility] 01-11-2024 Consult note Associated Order (s): IP WOUND CARE NURSE CONSULT TO EVAL Images from the original note were not included. [facility] Wound Care CONSULT Note Beverly Fern Agee AGE: 78 y.o. GENDER: female : 1945 Subjective: HISTORY of PRESENT ILLNESS HPI Beverly Agee is a 78 y.o. female who presents for a wound consult. HPI: Ms. Agee is a 78 y.o. female admitted with complicated UTI. Per chart review, patient fell and home and family reports she has not been acting herself since she was discharged from SNF. Wound Care consulted for pressure injury. 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 Depression History of blood transfusion Hyperlipidemia Hypertension Type II or unspecified type diabetes mellitus without mention of complication, not stated as uncontrolled (HCC) PAST SURGICAL HISTORY Past Surgical History: Procedure Laterality Date BREAST LUMPECTOMY Left BREAST LUMPECTOMY Left 2012 s/p radiation as well CATARACT EXTRACTION W/ INTRAOCULAR LENS IMPLANT Bilateral 10/2015, 12/2015 SECTION (HISTORICAL) CHOLECYSTECTOMY DILATION AND CURETTAGE OF UTERUS FEMUR FRACTURE SURGERY Right 11/30/2019 HIP ARTHROPLASTY Right 01/21/2020 conversion JOINT REPLACEMENT Bilateral ROTATOR CUFF REPAIR Right TOTAL ABDOMINAL HYSTERECTOMY FAMILY HISTORY Family History Problem Relation Name Age of Onset Asthma Son Thyroid disease Brother Cancer Mother Cancer Father Thyroid disease Mother Cancer Brother Asthma Son Asthma Son SOCIAL HISTORY Social History Tobacco Use Smoking status: Every Day Packs/day: .75 Types: Cigarettes Smokeless tobacco: Never Substance Use Topics Alcohol use: Yes Alcohol/week: 0.0 standard drinks of alcohol Drug use: No ALLERGIES Allergies Allergen Reactions Aspirin Hives and Swelling Blotchy, GI, hives Penicillins blotchiness Sulfa Antibiotics Hives and Swelling blotchy MEDICATIONS No current facility-administered medications on file prior to encounter. Current Outpatient Medications on File Prior to Encounter Medication Sig Dispense Refill cyanocobalamin (Vitamin B-12) 1000 MCG tablet Take 500 mcg by mouth in the morning. [] ergocalciferol (Vitamin D2) 1.25 MG (08357 UT) capsule Take 1 capsule (1.25 mg) by mouth 1 (one) time per week for 2 doses. 2 capsule 0 famotidine (Pepcid) 20 MG tablet Take 1 tablet (20 mg) by mouth 2 times daily as needed for heartburn (heartburn). 60 tablet 0 fenofibrate (Tricor) 54 MG tablet Take 1 tablet (54 mg) by mouth daily. 30 tablet 0 folic acid (Folvite) 1 MG tablet Take 1 tablet (1 mg) by mouth daily. 30 tablet 0 insulin glargine (Lantus) 100 UNIT/ML injection Inject 13 Units under the skin 2 times daily. 10 mL 0 Insulin Lispro (Humalog) 100 UNIT/ML solution injection Dosage Start Date End Date Remaining doses 0-18 Units 3 times daily (with meals) High Dose Correction AlgorithmGlucose: Dose: LESS than 139 No [id number] 10 mL 0 ipratropium-albuterol (Duo-Neb) 0.5-2.5 mg/3 mL nebulizer solution Take 3 mL by nebulization 2 times daily as needed for wheezing. 180 mL 11 losartan (Cozaar) 25 MG tablet Take 1 tablet (25 mg) by mouth daily. 30 tablet 0 magnesium oxide (Mag-Ox) 400 (240 Mg) MG tablet Take 1 tablet (400 mg) by mouth 2 times daily. 30 tablet 0 melatonin 5 MG tablet Take 1 tablet (5 mg) by mouth Nightly. 30 tablet 0 pravastatin (Pravachol) 80 MG tablet Take 1 tablet (80 mg) by mouth in the morning. 90 tablet 1 rivaroxaban (Xarelto) 20 MG tablet TAKE 1 TABLET BY MOUTH EVERY MORNING WITH BREAKFAST 90 tablet 1 sennosides (Senokot) 8.6 MG tablet Take 1 tablet (8.6 mg) by mouth Nightly. 30 tablet 11 traZODone (Desyrel) 50 MG tablet Take 50 mg by mouth Nightly as needed for sleep. Patient states she takes most nights venlafaxine XR (Effexor XR) 150 MG 24 hr capsule Take 1 capsule (150 mg) by mouth daily (with breakfast). Do not crush or chew. 30 capsule 0 venlafaxine XR (Effexor XR) 75 MG 24 hr capsule Take 1 capsule (75 mg) by mouth Nightly. Do not crush or chew. 30 capsule 0 REVIEW OF SYSTEMS Pertinent items are noted in HPI. Objective: BP 144/77 Pulse 76 Temp 36.5 C (97.7 F) (Oral) Resp 20 Ht 1.676 m (5' 6") Wt 72.6 kg (160 lb) SpO2 99% BMI 25.82 kg/m PHYSICAL EXAM General appearance: in no apparent distress, alert, and cooperative Skin: warm and dry Pulmonary: Normal effort, no respiratory distress, no cyanosis Sacrum: Blanchable pink tissue. No openings. No wounds. No drainage. LABS CBC: Lab Results Component Value Date WBC 8.8 01/10/2024 HGB 11.9 01/10/2024 HCT 35.6 01/10/2024 MCV 87.9 01/10/2024 PLT 281 01/10/2024 BMP: Lab Results Component Value Date NA 132 (L) 01/10/2024 K 4.2 01/10/2024 CL 101 01/10/2024 CO2 20 (L) 01/10/2024 BUN 16 01/10/2024 CREATININE 0.78 01/10/2024 PT/INR: No results found for: "PROTIME", "INR" Prealbumin: No results found for: PREALBUMIN Albumin:No components found for: LABALBU Sed Rate:No results found for: SEDRATE Micro: No components found for: BC Assessment/Plan: Sacrum: PREVENTION - Clean with soap and water, apply ET mix then leave ESTELITA TID Reposition q2hrs Incontinent check q2hrs Nutritional support Wound care to sign off service at this time. Please re-consult if services are needed. Recommend to follow up at [facility] Outpatient wound care center after hospital discharge. Any questions or concerns please secure chat "ACH wound/ostomy". Thank you for the consult! I personally obtained the virk and critical portions of the history and physical exam. I reviewed the labs, imaging studies, and electronic medical record. I reviewed the chart documentation and discussed the patient with treatment team members. I have edited the note to reflect my clinical findings and my assessment and plan. Please note, the time of this note does not reflect the time I saw this patient today, but the time of this documentaton. Portions of this note including HPI, ROS, impression/plan, and examination may have been copied forward from admission to today as to provide important historical information essential in contributing to medical decision making. Documentation has been reviewed and edited as necessary to support clinical decision making for today's visit and to reflect my own independent evaluation of this patient. Decision making for today's visit and to reflect my own independent evaluation of this patient. [facility] [employer] Work Phone: 01-11-2024 Consult note Associated Order (s): IP WOUND CARE NURSE CONSULT TO EVAL Images from the original note were not included. [facility] Wound Care CONSULT Note Beverly Agee AGE: 78 y.o. GENDER: female : 1945 Subjective: HISTORY of PRESENT ILLNESS HPI Beverly Agee is a 78 y.o. female who presents for a wound consult. HPI: Ms. Agee is a 78 y.o. female admitted with complicated UTI. Per chart review, patient fell and home and family reports she has not been acting herself since she was discharged from SNF. Wound Care consulted for pressure injury. 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 Depression History of blood transfusion Hyperlipidemia Hypertension Type II or unspecified type diabetes mellitus without mention of complication, not stated as uncontrolled (HCC) PAST SURGICAL HISTORY Past Surgical History: Procedure Laterality Date BREAST LUMPECTOMY Left BREAST LUMPECTOMY Left 2012 s/p radiation as well CATARACT EXTRACTION W/ INTRAOCULAR LENS IMPLANT Bilateral 10/2015, 12/2015 SECTION (HISTORICAL) CHOLECYSTECTOMY DILATION AND CURETTAGE OF UTERUS FEMUR FRACTURE SURGERY Right 11/30/2019 HIP ARTHROPLASTY Right 01/21/2020 conversion JOINT REPLACEMENT Bilateral ROTATOR CUFF REPAIR Right TOTAL ABDOMINAL HYSTERECTOMY FAMILY HISTORY Family History Problem Relation Name Age of Onset Asthma Son Thyroid disease Brother Cancer Mother Cancer Father Thyroid disease Mother Cancer Brother Asthma Son Asthma Son SOCIAL HISTORY Social History Tobacco Use Smoking status: Every Day Packs/day: .75 Types: Cigarettes Smokeless tobacco: Never Substance Use Topics Alcohol use: Yes Alcohol/week: 0.0 standard drinks of alcohol Drug use: No ALLERGIES Allergies Allergen Reactions Aspirin Hives and Swelling Blotchy, GI, hives Penicillins blotchiness Sulfa Antibiotics Hives and Swelling blotchy MEDICATIONS No current facility-administered medications on file prior to encounter. Current Outpatient Medications on File Prior to Encounter Medication Sig Dispense Refill cyanocobalamin (Vitamin B-12) 1000 MCG tablet Take 500 mcg by mouth in the morning. [] ergocalciferol (Vitamin D2) 1.25 MG (46643 UT) capsule Take 1 capsule (1.25 mg) by mouth 1 (one) time per week for 2 doses. 2 capsule 0 famotidine (Pepcid) 20 MG tablet Take 1 tablet (20 mg) by mouth 2 times daily as needed for heartburn (heartburn). 60 tablet 0 fenofibrate (Tricor) 54 MG tablet Take 1 tablet (54 mg) by mouth daily. 30 tablet 0 folic acid (Folvite) 1 MG tablet Take 1 tablet (1 mg) by mouth daily. 30 tablet 0 insulin glargine (Lantus) 100 UNIT/ML injection Inject 13 Units under the skin 2 times daily. 10 mL 0 Insulin Lispro (Humalog) 100 UNIT/ML solution injection Dosage Start Date End Date Remaining doses 0-18 Units 3 times daily (with meals) High Dose Correction AlgorithmGlucose: Dose: LESS than 139 No [id number] 10 mL 0 ipratropium-albuterol (Duo-Neb) 0.5-2.5 mg/3 mL nebulizer solution Take 3 mL by nebulization 2 times daily as needed for wheezing. 180 mL 11 losartan (Cozaar) 25 MG tablet Take 1 tablet (25 mg) by mouth daily. 30 tablet 0 magnesium oxide (Mag-Ox) 400 (240 Mg) MG tablet Take 1 tablet (400 mg) by mouth 2 times daily. 30 tablet 0 melatonin 5 MG tablet Take 1 tablet (5 mg) by mouth Nightly. 30 tablet 0 pravastatin (Pravachol) 80 MG tablet Take 1 tablet (80 mg) by mouth in the morning. 90 tablet 1 rivaroxaban (Xarelto) 20 MG tablet TAKE 1 TABLET BY MOUTH EVERY MORNING WITH BREAKFAST 90 tablet 1 sennosides (Senokot) 8.6 MG tablet Take 1 tablet (8.6 mg) by mouth Nightly. 30 tablet 11 traZODone (Desyrel) 50 MG tablet Take 50 mg by mouth Nightly as needed for sleep. Patient states she takes most nights venlafaxine XR (Effexor XR) 150 MG 24 hr capsule Take 1 capsule (150 mg) by mouth daily (with breakfast). Do not crush or chew. 30 capsule 0 venlafaxine XR (Effexor XR) 75 MG 24 hr capsule Take 1 capsule (75 mg) by mouth Nightly. Do not crush or chew. 30 capsule 0 REVIEW OF SYSTEMS Pertinent items are noted in HPI. Objective: BP 144/77 Pulse 76 Temp 36.5 C (97.7 F) (Oral) Resp 20 Ht 1.676 m (5' 6") Wt 72.6 kg (160 lb) SpO2 99% BMI 25.82 kg/m PHYSICAL EXAM General appearance: in no apparent distress, alert, and cooperative Skin: warm and dry Pulmonary: Normal effort, no respiratory distress, no cyanosis Sacrum: Blanchable pink tissue. No openings. No wounds. No drainage. LABS CBC: Lab Results Component Value Date WBC 8.8 01/10/2024 HGB 11.9 01/10/2024 HCT 35.6 01/10/2024 MCV 87.9 01/10/2024 PLT 281 01/10/2024 BMP: Lab Results Component Value Date NA 132 (L) 01/10/2024 K 4.2 01/10/2024 CL 101 01/10/2024 CO2 20 (L) 01/10/2024 BUN 16 01/10/2024 CREATININE 0.78 01/10/2024 PT/INR: No results found for: "PROTIME", "INR" Prealbumin: No results found for: PREALBUMIN Albumin:No components found for: LABALBU Sed Rate:No results found for: SEDRATE Micro: No components found for: BC Assessment/Plan: Sacrum: PREVENTION - Clean with soap and water, apply ET mix then leave ESTELITA TID Reposition q2hrs Incontinent check q2hrs Nutritional support Wound care to sign off service at this time. Please re-consult if services are needed. Recommend to follow up at [facility] Outpatient wound care center after hospital discharge. Any questions or concerns please secure chat "ACH wound/ostomy". Thank you for the consult! I personally obtained the virk and critical portions of the history and physical exam. I reviewed the labs, imaging studies, and electronic medical record. I reviewed the chart documentation and discussed the patient with treatment team members. I have edited the note to reflect my clinical findings and my assessment and plan. Please note, the time of this note does not reflect the time I saw this patient today, but the time of this documentaton. Portions of this note including HPI, ROS, impression/plan, and examination may have been copied forward from admission to today as to provide important historical information essential in contributing to medical decision making. Documentation has been reviewed and edited as necessary to support clinical decision making for today's visit and to reflect my own independent evaluation of this patient. Decision making for today's visit and to reflect my own independent evaluation of this patient. documented in this encounter [facility] 01-11-2024 Nurse Note To bedside for second set of eyes for skin assessment. Stage 1 on coccyx, Bruising that is old to right hip and lower abdomin, purple and yellow. Surgical scare right back and side from chest tube and drain. [facility] 01-11-2024 Nurse Note To bedside for second set of eyes for skin assessment. Stage 1 on coccyx, Bruising that is old to right hip and lower abdomin, purple and yellow. Surgical scare right back and side from chest tube and drain. documented in this encounter [facility] 01-10-2024 Emergency department Note Emergency Department Encounter [facility] Patient: Beverly Agee : 1945 Date of Evaluation: 01/10/2024 ED Supervising Physician: Topher Saini DO I personally evaluated Beverly Agee and made/approved the management plan and take responsibility for the patient management. This will serve as my Supervisory note and shared attestation. I did perform a substantive portion of the visit including all aspects of the Medical Decision Making. I wore appropriate PPE for the entirety of this encounter. In brief, Beverly Agee is a 78 y.o. that presents to the emergency department with chief complaint of fall and bilateral knee pain. Family also concerned she is not acting her normal self. Recently just got her rehab. Son at bedside states she is more weak than usual and more forgetful than usual and has less energy. Sleeping more. Focused exam: Alert and oriented x 2. Heart is regular in rhythm. Lungs are auscultation bilaterally. Generalized weakness noted but no focal or unilateral weakness noted. Pale skin. Overall ill-appearing. Mild suprapubic tenderness. Brief ED course/MDM: Based on the workup results, I suspect the worsening weakness and confusion is due to UTI. No signs of any acute intracranial process, CVA/TIA. No signs of severe sepsis or shock. Suitable for floor. All diagnostic, treatment, and disposition decisions were made by myself in conjunction with the Resident. I also supervised virk portions of any procedures performed by the Resident. For all further details of the patient's emergency department visit, please see their documentation. (Comment: Please note this report has been produced using speech recognition software and may contain errors related to that system including errors in grammar, punctuation, and spelling, as well as words and phrases that may be inappropriate. If there are any questions or concerns please feel free to contact the dictating provider for clarification.) Topher Saini DO [employer] Topher Saini DO 01/13/24 1315 documented in this encounter [facility] 01-10-2024 Physician Emergency department Note Emergency Department Encounter [facility] Patient: Beverly Agee : 1945 Date of Evaluation: 01/10/2024 ED Supervising Physician: Topher Saini DO I personally evaluated Beverly Agee and made/approved the management plan and take responsibility for the patient management. This will serve as my Supervisory note and shared attestation. I did perform a substantive portion of the visit including all aspects of the Medical Decision Making. I wore appropriate PPE for the entirety of this encounter. In brief, Beverly Agee is a 78 y.o. that presents to the emergency department with chief complaint of fall and bilateral knee pain. Family also concerned she is not acting her normal self. Recently just got her rehab. Son at bedside states she is more weak than usual and more forgetful than usual and has less energy. Sleeping more. Focused exam: Alert and oriented x 2. Heart is regular in rhythm. Lungs are auscultation bilaterally. Generalized weakness noted but no focal or unilateral weakness noted. Pale skin. Overall ill-appearing. Mild suprapubic tenderness. Brief ED course/MDM: Based on the workup results, I suspect the worsening weakness and confusion is due to UTI. No signs of any acute intracranial process, CVA/TIA. No signs of severe sepsis or shock. Suitable for floor. All diagnostic, treatment, and disposition decisions were made by myself in conjunction with the Resident. I also supervised virk portions of any procedures performed by the Resident. For all further details of the patient's emergency department visit, please see their documentation. (Comment: Please note this report has been produced using speech recognition software and may contain errors related to that system including errors in grammar, punctuation, and spelling, as well as words and phrases that may be inappropriate. If there are any questions or concerns please feel free to contact the dictating provider for clarification.) Topher Saini DO [employer] Topher Saini DO 01/13/24 1315 T [facility] 12-24-2023 History of Present illness Narrative Images from the original note were not included. PHYSICAL THERAPY [facility] Treatment Note Name/MRN: Beverly Agee ([id number]) Date of : 1945 Age: 78 y.o. Room/Bed: [facility] A Discharge Recommendation: IP Rehab, [facility] Facility Equipment Needed: No Other: tbd Assessment Pt presents with impaired mobility. Noted generalized weakness and decreased activity tolerance. Impaired balance during standing and gait. Pt is requires assist with all functional mobility due to high risk of falling. Recommend SNF vs IP Rehab. Subjective Pt on bed, agree with PT treatment. RN cleared for PT. Pain: Pt denies any current pain. Medical Precautions: No active isolations Proper PPE donned/doffed in accordance with facility standards. Fall Risk: Loyd Fall Risk Score: 85 (High Risk) Overall Cognitive Status: Exceptions - Problem solving: assistance required to generate solutions - Insights: decreased awareness of deficits - Initiation: requires cues for some - Sequencing: requires cues for some Overall Orientation Status: Oriented to Place and Oriented to Person Family/Caregiver Present: none Objective Ambulation Ambulation 1 Assistive device(s) used: front wheeled walker Assist level: Min Assist Distance (ft): 15 Quality of gait: step to pattern, uneven step length, wide LUCA, slow savanna, postural sway, path deviations, instability through all phases Ambulation 2 Assistive device(s) used: front wheeled walker Assist level: Min Assist Distance (ft): 10 Quality of gait: step to pattern, uneven step length, wide LUCA, slow savanna, postural sway, path deviations, instability through all phases Transfers/Mobility Sit to stand: Min Assist Stand to sit: Min Assist Stand pivot: Min Assist From EOB, from chair. Cues with hand placement and technique Device(s) used: front wheeled walker Bed Mobility Supine to sit: Min Assist Scooting: Min Assist Balance: static standing x 2 minutes, with fww, min assist. Weight shifting, cues to improve posture. Posture: fair Sitting - Static: Supervision Sitting - Dynamic: SBA Standing - Static: Min Assist Standing - Dynamic: Min Assist Plan Continue acute PT per plan of care. Safety/Education Safety Safety Devices in place: call light within reach, left in chair, chair alarm in place, and gait belt Restraints: No Education Education Given To: patient Education Provided: PT Role, PT Goals, and Plan of Care Education Method: Verbal Barriers to Learning: impaired STM Education Outcome: Verbalized Understanding and Continued Education Needed Outcome Measures AM-PAC AM-PAC Inpatient Mobility Raw Score (No Stairs) : 15 JH-HLM JH-HLM Score: Walked 10 steps or more (i.e. walked to restroom) Goals Patient Stated Goal: To be able to walk. Encounter Problems Encounter Problems (Active) Balance Patient will maintain dynamic standing balance for 5 minutes with supervision in order to demonstrate decreased risk of falling. (Progressing) Start: 12/18/23 Expected End: 01/15/24 Mobility Patient will ambulate 75 feet with supervision and least restrictive device in order to improve safety and independence with mobility. (Progressing) Start: 12/18/23 Expected End: 01/15/24 Patient will ascend and descend 3 stairs with least restrictive device and supervision in order to safely negotiate home. (Not Addressed) Start: 12/18/23 Expected End: 01/15/24 Transfers Patient will perform bed mobility with supervision in order to improve independence and prepare for out of bed mobility. (Progressing) Start: 12/18/23 Expected End: 01/15/24 Patient will complete functional transfer with least restrictive device with modified independence in order to prepare for ambulation. (Progressing) Start: 12/18/23 Expected End: 01/15/24 Therapy Time Individual Co-treatment Time In 1336 Time Out 1359 Minutes 23 Timed Code Treatment Minutes: 23 Minutes (FA, gait) Rin Navarro PT Nutrition Assessment Type and Reason for Visit: Reassess Nutrition Recommendations/Plan: Continue with regular, 4 CHO Choices (60 gm/meal) and Ensure HP BID. Request a current weight. Please record % of meals and oral nutrition supplements consumed daily on nursing flow sheets. Monitor weight, labs, I/O, skin assessment, BM, and overall nutritional status. RD will follow up weekly. Malnutrition Assessment: Malnutrition Status: At risk for malnutrition Context: Acute Illness Findings of the 6 clinical characteristics of malnutrition: Energy Intake: 50% or less of estimated energy requirements for 5 or more days (Flow sheets indicate recent po intake of 0% x 1 meal and 1-25% x 1 meal. Patient reports only eating fruit cup this am. Decreased appetite.) Weight Loss: Unable to assess (Request a current weight to further assess.) Body Fat Loss: Unable to assess Muscle Mass Loss: Unable to assess Fluid Accumulation: No significant fluid accumulation Extremities Cage Operator Strength: Not Performed Nutrition Assessment: 78 y.o. female s/p fall on Xarelto with right 8,9,10 rib fractures, small right anterior pneumothorax, large right hemothorax s/p VATS 12/16 with cryo and external rib plating R ribs 9, 10. RD spoke with patient this am. She reports eating a fruit cup for breakfast. Appetite is decreased. She drinks Ensure depending on how she is eating, but drinks at least one per day. She has been requesting chocolate flavor. There are 3 packages of Ensure in her room. Encourage protein intake for healing- pt reports that she eats eggs, meat, and fish. Patient thinks that she had a BM yesterday. Denies heartburn at this time. Estimated Daily Nutrient Needs: Energy Requirements Based On: Kcal/kg Weight Used for Energy Requirements: [place] Weight for Energy Calculation (kg): 52.2 kg Total Energy Requirements (kcals/day): 25-30 kcals/kg = 5547-8510 kcals/day Weight Used for Protein Requirements: [place] Weight in Kg Used for Protein Requirements: 52.2 kg Estimated Total Protein (g/day): 1.2-1.4g protein/kg IBW = 63-73g protein/day Estimated Daily Total Fluid (ml/day): per MD Nutrition Related Findings: Jose Martin = 17, abdomen soft, rounded, active bowel sounds, non pitting BLE edema, + room service assist, upper/lower dentures Wound Type: (unstageable pressure injury sacrum, incision right flank) BMP: Recent Labs 12/23/23 0505 NA 129* K 3.9 CL 97* CO2 23 BUN 13 CREATININE 0.58 GLUCOSE 122* CALCIUM 9.7 Medications: acetaminophen, 1,000 mg, Oral, q8h cyanocobalamin, 500 mcg, Oral, Daily ergocalciferol, 1.25 mg, Oral, Weekly fenofibrate, 54 mg, Oral, Daily folic acid, 1 mg, Oral, Daily insulin glargine, 13 Units, SubCUTAneous, BID insulin lispro, 0-18 Units, SubCUTAneous, TID WC And insulin lispro, 0-18 Units, SubCUTAneous, Nightly losartan, 25 mg, Oral, Daily magnesium oxide, 400 mg, Oral, BID melatonin, 5 mg, Oral, Nightly polyethylene glycol (PEG) 3350, 17 g, Oral, Daily pravastatin, 80 mg, Oral, Daily rivaroxaban, 20 mg, Oral, Daily with breakfast sennosides, 1 tablet, Oral, Nightly stomahesive in petrolatum, , Topical, q8h venlafaxine XR, 150 mg, Oral, Daily with breakfast venlafaxine XR, 75 mg, Oral, Nightly Current Nutrition Therapies: Adult diet Regular; 4 carb choices (60 gm/meal) Current Oral Intake Average Meal Intake: 0%, 1-25% Average Supplements Intake: Unable to assess Anthropometric Measures: Height: 160 cm (5' 3") Current Body Weight: 72.6 kg (160 lb 0.9 oz) Weight Source: Stated [place] Body Weight (lbs) (Calculated): 115 lbs [place] Body Weight (Kg) (Calculated): 52 kg BMI (kg/m2) (Calculated): 28.4 BMI Categories: Overweight (BMI 25.0-29.9) Nutrition Interventions: Nutrition Education/Counseling: No recommendation at this time Coordination of Nutrition Care: Continue to monitor while inpatient Goals: Goals: PO intake 75% or greater, by next RD assessment Nutrition Monitoring and Evaluation: Behavioral-Environmental Outcomes: None Identified Food/Nutrient Intake Outcomes: Food and Nutrient Intake, Supplement Intake Physical Signs/Symptoms Outcomes: Biochemical Data, GI Status, Fluid Status or Edema, Meal Time Behavior, Nutrition Focused Physical Findings, Skin, Weight Discharge Planning: Too soon to determine Maria Del Carmen Gonzalez RD Contact: *[phone] Images from the original note were not included. Daily Trauma Progress Note Nurse Practitioner 12/24/2023 7:07 AM Admit Date: 12/12/2023 PHD 12 HPI: 78 y.o. female status post fall 4 days ago. The incident happened on 12/10/23 at home. When the event happened the patient fell and hit a table. She was seen by her PCP on 12/10 who ordered CXR, which showed rib fracture. She presented to [place] ED with SOB, hypoxic, and tachycardic. CT showed large R effusion likely hemothorax. She was directly admitted to T2 ICU. The patient reports mild right chest pain and SOB. No LH or dizziness. Has been having frequent falls recently. She did not lose consciousness and recalls the fall, it was due to weakness in her legs. Doesn't think she hit her head. No other preceding symptoms. Last took Xarelto 1 day ago. Patient notes that she lives at home by herself. PROCEDURES: 12/12 - R CT placement 12/16 - R VATS, cry, ribs 9,10 rib plating 12/19 - R CT removed CHIEF COMPLAINT: Right rib pain PREVIOUS 24 HOUR EVENTS: - No acute events overnight Consults: IP CONSULT TO ANESTHESIOLOGY IP CONSULT TO PALLIATIVE CARE IP CONSULT TO GERIATRICS IP WOUND CARE NURSE CONSULT TO EVAL MEDICATIONS: Current Facility-Administered Medications: acetaminophen (Tylenol) tablet 1,000 mg, 1,000 mg, Oral, q8h, Lucille Soto MD, 1,000 mg at 12/24/23 05 cyanocobalamin (Vitamin B-12) tablet 500 mcg, 500 mcg, Oral, Daily, Birgit Ramsey MD, 500 mcg at 12/23/23 08 dextrose 5 % infusion, 100 mL/hr, IntraVENous, PRN, Evan Richardson MD dextrose 50 % solution 12.5 g, 12.5 g, IntraVENous, PRN, Lucille Soto MD ergocalciferol (Vitamin D2) capsule 1.25 mg, 1.25 mg, Oral, Weekly, Cass Howe, DYE MAKER - PROGRAM DEVELOPMENT MANAGER, 1.25 mg at 12/22/23 08 famotidine (Pepcid) tablet 20 mg, 20 mg, Oral, BID PRN, Charlotte Damon, DYE MAKER - PROGRAM DEVELOPMENT MANAGER, 20 mg at 12/23/23 08 fenofibrate (Tricor) tablet 54 mg, 54 mg, Oral, Daily, Ricky Abel MD, 54 mg at 12/23/23 08 folic acid (Folvite) tablet 1 mg, 1 mg, Oral, Daily, Birgit Ramsey MD, 1 mg at 12/23/23 08 glucagon (human recombinant) injection 1 mg, 1 mg, IntraMUSCular, PRN, Evan Richardson MD glucose oral gel 15 g, 15 g, Oral, PRN, Lucille Soto MD glucose oral gel 15 g, 15 g, Oral, PRN, Evan Richardson MD, 15 g at 12/16/23 0217 hydrALAZINE (Apresoline) injection 10 mg, 10 mg, IntraVENous, q4h PRN, Linda Bueno MD insulin glargine (Lantus) injection 13 Units, 13 Units, SubCUTAneous, BID, Carmel Ceballos APRN - PROGRAM DEVELOPMENT MANAGER, 13 Units at 12/23/232102 Insulin Lispro (Humalog) injection 0-18 Units, 0-18 Units, SubCUTAneous, TID WC, 3 Units at 12/23/23 1245 AND Insulin Lispro (Humalog) injection 0-18 Units, 0-18 Units, SubCUTAneous, Nightly, Linda Bueno MD, 6 Units at 12/17/232043 ipratropium-albuterol (Duo-Neb) 0.5-2.5 mg/3 mL nebulizer solution 3 mL, 3 mL, Nebulization, BID PRN, Charlotte Braswell MD labetalol (Normodyne,Trandate) injection 10 mg, 10 mg, IntraVENous, q4h PRN, Linda Bueno MD losartan (Cozaar) tablet 25 mg, 25 mg, Oral, Daily, Charlotte Damon APRN - PROGRAM DEVELOPMENT MANAGER, 25 mg at 12/23/23805 magnesium oxide (Mag-Ox) tablet 400 mg, 400 mg, Oral, BID, Birgit Ramsey MD, 400 mg at 12/23/232102 melatonin tablet 5 mg, 5 mg, Oral, Nightly, Lucille Soto MD, 5 mg at 12/23/232102 naloxone (Narcan) injection 0.4 mg, 0.4 mg, IntraVENous, PRN, Lucille Soto MD ondansetron ODT (Zofran-ODT) disintegrating tablet 4 mg, 4 mg, Oral, q8h PRN OR ondansetron (Zofran) injection 4 mg, 4 mg, IntraVENous, q6h PRN, Lucille oSto MD, 4 mg at 12/22/232206 oxyCODONE (Roxicodone) immediate release tablet 5 mg, 5 mg, Oral, q6h PRN, 5 mg at 12/18/23 1504 OR oxyCODONE (Roxicodone) immediate release tablet 10 mg, 10 mg, Oral, q6h PRN, Lucille Soto MD, 10 mg at 12/24/23 0637 polyethylene glycol (PEG) 3350 (Miralax) packet 17 g, 17 g, Oral, Daily PRN, Lucille Soto MD, 17 g at 12/16/23 0954 polyethylene glycol (PEG) 3350 (Miralax) packet 17 g, 17 g, Oral, Daily, Jess Roca MD, 17 g at 12/23/23805 pravastatin (Pravachol) tablet 80 mg, 80 mg, Oral, Daily, Lucille Soto MD, 80 mg at 12/23/23805 rivaroxaban (Xarelto) tablet 20 mg, 20 mg, Oral, Daily with breakfast, RADHA Mary CNP, 20 mg at 12/23/23805 sennosides (Senokot) tablet 8.6 mg, 1 tablet, Oral, Nightly, Birgit Ramsey MD, 8.6 mg at 12/23/232102 sodium chloride 3 % hypertonic nebulizer solution 4 mL, 4 mL, Nebulization, PRN, Evan Richardson MD stomahesive in petrolatum (ET Mix), , Topical, q8h, RADHA Toth CNP, Given at 12/24/23 0513 stomahesive in petrolatum (ET Mix), , Topical, PRN, RADHA Toth CNP traZODone (Desyrel) tablet 50 mg, 50 mg, Oral, Nightly PRN, Linda Bueno MD, 50 mg at 12/23/232102 venlafaxine XR (Effexor XR) 24 hr capsule 150 mg, 150 mg, Oral, Daily with breakfast, Birgit Ramsey MD, 150 mg at 12/23/23805 venlafaxine XR (Effexor XR) 24 hr capsule 75 mg, 75 mg, Oral, Nightly, Birgit Ramsey MD, 75 mg at 12/23/232104 ARE THERE PERTINENT UPDATES TO PAST,FAMILY, OR SOCIAL HISTORY?: No Subjective: Patient feels small improvement every day with rib pain. Currently OOB in chair. Pain well controlled. Tolerating diet. Had BM earlier today. Reports some heartburn Review of Systems Constitutional: Positive for activity change. Negative for chills and fever. HENT: Negative. Negative for congestion and drooling. Eyes: Negative. Negative for redness and visual disturbance. Respiratory: Negative for cough, choking, shortness of breath and wheezing. R chest tube removed, occlusive dressing applied Cardiovascular: Positive for chest pain (right rib pain). Negative for leg swelling. Gastrointestinal: Negative. Negative for nausea and vomiting. Endocrine: Negative. Genitourinary: Negative. Musculoskeletal: Positive for myalgias. Skin: Positive for wound (Incisional sites, right chest. Prior right chest tube site). Negative for rash. Neurological: Negative for dizziness, speech difficulty, light-headedness and headaches. Hematological: Bruises/bleeds easily. Psychiatric/Behavioral: Negative for agitation, behavioral problems and confusion. Objective: Patient Vitals for the past 24 hrs: BP Temp Temp src Pulse Resp SpO2 12/23/23 2100 145/78 36.8 C (98.3 F) Temporal 97 16 99 % 12/23/23 1951 150/86 36.3 C (97.3 F) Temporal 96 16 97 % 12/23/23 0741 157/90 36.3 C (97.4 F) Temporal 83 16 98 % No intake or output data in the 24 hours ending 12/24/23 0707 No intake/output data recorded. Diet: Regular 4 carb control BM: 12/22 PHYSICAL: Physical Exam Vitals and nursing note reviewed. Constitutional: General: She is not in acute distress. Appearance: Normal appearance. She is normal weight. HENT: Head: Normocephalic and atraumatic. Right Ear: External ear normal. Left Ear: External ear normal. Nose: Nose normal. Mouth/Throat: Mouth: Mucous membranes are moist. Eyes: Extraocular Movements: Extraocular movements intact. Conjunctiva/sclera: Conjunctivae normal. Pupils: Pupils are equal, round, and reactive to light. Cardiovascular: Rate and Rhythm: Normal rate. Pulses: Normal pulses. Pulmonary: Effort: Pulmonary effort is normal. Breath sounds: Normal breath sounds. No wheezing. Comments: Right CT site dressing C/D/I Chest: Chest wall: Tenderness present. Abdominal: General: Bowel sounds are normal. Palpations: Abdomen is soft. Tenderness: There is no abdominal tenderness. Musculoskeletal: General: Tenderness present. Normal range of motion. Cervical back: Normal range of motion. Skin: General: Skin is warm and dry. Capillary Refill: Capillary refill takes less than 2 seconds. Findings: Bruising (right lateral chest) present. Comments: Incisions c/d/I right lateral chest s/p VATS Neurological: General: No focal deficit present. Mental Status: She is alert and oriented to person, place, and time. Mental status is at baseline. Psychiatric: Mood and Affect: Mood normal. Behavior: Behavior normal. Data CBC with Differential: Lab Results Component Value Date WBC 10.2 12/23/2023 RBC 3.91 12/23/2023 HGB 11.4 (L) 12/23/2023 HCT 34.3 (L) 12/23/2023 PLT 485 (H) 12/23/2023 CMP: Lab Results Component Value Date NA 129 (L) 12/23/2023 K 3.9 12/23/2023 CL 97 (L) 12/23/2023 CO2 23 12/23/2023 BUN 13 12/23/2023 CREATININE 0.58 12/23/2023 GLUCOSE 122 (H) 12/23/2023 CALCIUM 9.7 12/23/2023 BMP: Hepatic Function Panel:Ionized Calcium: No components found for: "IONCA" Magnesium: No results found for: MG Phosphorus: No results found for: PHOS PT/INR: No results found for: "PROTIME", INR PTT: No results found for: "APTT"[APTT Last 3 Troponin: No results found for: "TROPONINI" Radiology: ECG 12 lead Result Date: 12/14/2023 Sinus rhythm Atrial premature complex Left anterior fascicular block Electronically Signed On 12-14-2023 08:24:18 EDT by James Birmingham POCT glucose meter Result Date: 12/13/2023 Performed by: [facility], [address] [place] [id number] CLIA ID: [id number] POCT glucose meter Result Date: 12/13/2023 Performed by: [facility], [address] [place] [id number] CLIA ID: [id number] XR chest 1 view Result Date: 12/13/2023 Patient Name: BEVERLY AGEE : 1945 Exam Date/Time: 12/13/2023 04:41 Procedure: XR CHEST 1 VIEW Ordering Provider: BRASWELL LAURA Reason For Exam: s/p right chest tube insertion for hemopneumothorax CLINICAL INFORMATION: Shortness of breath. Hemopneumothorax. Right-sided chest tube now in place. Portable view of the chest at 0435 hours is provided and compared to a previous CT dated December 12, 2023. FINDINGS: A chest tube is now in place on the right. The sizable effusion is been evacuated. There is no significant pneumothorax. Emphysematous changes are noted diffusely. 1. New right-sided chest tube. 2. No pneumothorax. Report Dictated on Electronically Signed By: Chico Noguera MD Electronically Signed Date/Time: 12/13/2023 4:[address] chest abdomen pelvis without contrast Result Date: 12/12/2023 Patient Name: BEVERLY AGEE : 1945 Exam Date/Time: 12/12/2023 23:06 Procedure: CT CHEST ABDOMEN PELVIS WO CONTRAST Ordering Provider: GOLDMAN AMY Reason For Exam: Fall INDICATION: 78-year-old; fall; rib pain (same day imaging demonstrated right rib#9 fracture) and difficulty breathing after a fall yesterday; fell on right side Scan Parameters: Multiple axial 1mm images were obtained of the chest and 3mm images of the abdomen and pelvis. Coronal and sagittal reconstructions were reviewed as well. Dose reduction was employed with automated exposure control. Additional reconstructed MIP images provided with 3-D postprocessing. A total of 11 image sets provided for review. CONTRAST: No IV and no oral contrast COMPARISON: Chest and right RIBS 12/11/2023; CT chest 08/01/2021 FINDINGS: CHEST: A very small right pneumothorax is present anteriorly and medially. There is a moderate to large right pleural effusion with associated blood products with compressive atelectasis and/or infiltrate. Pulmonary vascular congestion is present with septal thickening. There are multiple posterior right rib fractures including 8,9,10. Ribs #9 and 10 are displaced with surrounding locules of air. The bones are osteopenic. Old LEFT rib fractures #5,6,10,11. Ribs #6 and 10 are not united. Multilevel endplate degenerative changes are present. There is a soft tissue hematoma posterior to the right rib fractures with associated air locules within the muscle. This measures in greatest axial dimension 1.9 x 4.1 cm. The thyroid gland contour is normal. The airway is patent the tracheobronchial tree calcifications. The esophagus is decompressed with a small hiatal hernia. Dense atherosclerotic calcifications are present along the aorta and coronary arteries. There is no sizable pericardial effusion. The heart is not enlarged. There is no mediastinal, hilar, or axillary adenopathy. There is limited evaluation the breast tissue, correlate with mammography. 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 Superior endplate compression of L5 with mild height loss, age indeterminate. The gallbladder is surgically absent with clips present. The liver, pancreas, and spleen are within normal limits. A right adrenal gland with a rich adenoma measures 13 mm. There is thickening of the medial limb of the left adrenal gland versus small adenoma. There is no hydronephrosis. A left renal 14 mm cyst is present. There is thinning of the renal cortex of the right and left. The bladder contour is normal. The uterus is surgically absent. Multiple colonic diverticuli are present. Fecal retention is present. The appendix is normal. The aorta is tortuous with atherosclerotic dense calcifications. CHEST: 1. Acute RIGHT rib fractures # 8,9,10. Ribs #9 and 10 are displaced with surrounding locules of air and an associated hematoma in the posterior musculature measuring 4.1 cm. Old left rib fractures. 2. Very small RIGHT anterior pneumothorax. 3. Moderate to large RIGHT pleural fluid with blood products with associated atelectasis. 4. Atherosclerotic disease. ABDOMEN/PELVIS: 1. Superior endplate compression at L5, age indeterminate. Osteopenia. Right total hip arthroplasty. 2. Other: Cholecystectomy. Bilateral adrenal gland adenomas. Left renal cyst. Perinephric stranding. Colonic diverticulosis. Atherosclerotic disease. 3. Additional findings, as above. CRITICAL TEST COMMUNICATION: I called the emergency department around 11:26pm and spoke with SHAKEEL Saxena. Report Dictated on Electronically Signed By: Manisha Conroy MD Electronically Signed Date/Time: 12/12/2023 11:28 PM EDT ECG 12 lead Sinus tachycardia Abnormal R-wave progression, late transition Inferior infarct, old no stemi Electronically Signed On 12-12-2023 23:13:52 EDT by Marbin Flores Patient Active Problem List Diagnosis Mood disorder (HCC) Closed fracture of one rib of left side Hemothorax Anticoagulated H/O: CVA (cerebrovascular accident) Tobacco dependence syndrome Hip fracture requiring operative repair, right, closed, initial encounter ([facility]) Memory impairment Examination of participant in clinical trial Malignant neoplasm of upper-outer quadrant of female breast (HCC) Fall Leukocytosis Closed fracture of hip (HCC) Unsteady gait Type 2 diabetes mellitus with hyperglycemia, with long-term current use of insulin (HCC) Acute cystitis E-coli UTI Obesity History of radial keratotomy Psychophysiological insomnia Hypomagnesemia Essential hypertension Mixed anxiety depressive disorder Hyperlipidemia Atrial fibrillation (HCC) Noncompliance with treatment regimen Weakness UTI (urinary tract infection) Hyperglycemia Closed fracture of multiple ribs of right side, initial encounter ASSESSMENT: 78 y.o. female s/p fall on Xarelto with right 8,9,10 rib fractures, small right anterior pneumothorax, large right hemothorax s/p VATS 12/16 with cryo and external rib plating R ribs 9, 10 PLAN: Neuro/Spine: - Multimodal pain control: Ajay tylenol, PRN oxy, robaxin - Palliative care, geriatrics consult Hx of Depression - Cont home Effexor - Follow Geriatrics note for updated medications - Cont vitamins and mag oxide - Trazodone nightly HEENT: - No acute issues Cardiovascular: Hx of Afib - Cont home Xarelto - Telemetry Hypotension in the setting of acute rib fractures and hemothorax (Resolved) - MAP goal > 60 - Cont home pravastatin - Positive Orthostatic BP measurement 12/13 Hx HTN - restart home losartan (reports taking 25 mg not 50mg daily) Hx HLD - cont home fenofibrate Pulmonary: R hemothorax s/p R VATS with cryo and rib plating R ribs 9,10 - Chest tube removed 12/19 - continue to monitor output - EZ pap, IS (pulling 1000 ml), acapella - Ajay duoneb - AM CXR stable small right PTX FEN/GI: - Regular diet, carb controlled, Ensure - Bowel regimen: Miralax daily prn, Senna nightly - Hyponatremia 129 - Encourage PO intake, limit h20 - Start Famotidine 20mg BID PRN heartburn - BMP q 48hrs : - Monitor UOP - voiding spontaneously Heme: - HGB stable 9.9 - Cont home Xarelto - CBC PRN ID: - Afebrile without leukocytosis - S/p ancef 24hr complete - CBC PRN Endo: Hx of DM, BG 102-182 - Home lantus 15 BID- cont Lantus 13 units BID due to poor to fair appetite - continue SSI - POC glucose - HA1c 7.1 Lines/Devices: - PIV - R CT removed 12/19 Prophylaxis: DVT: SCD, cont home Xarelto Has DVT PPX been started? yes If no, why? na GI: Pressure Ulcer: turn self Musculoskeletal: - PT/OT recs for SNF- pending approval to [facility] Medications Reconciled- Yes [x] NO [], why Disposition: Cont H6 care, patient medically ready for dc to [facility] when auth received. Shaun Wang, DYE MAKER - PROGRAM DEVELOPMENT MANAGER Trauma Surgery/Critical Care Associated attestation - Charlotte Braswell MD - 12/24/2023 8:43 PM EDT ATTENDING ADDENDUM Patient Active Problem List Diagnosis Mood disorder (HCC) Closed fracture of one rib of left side Hemothorax Anticoagulated H/O: CVA (cerebrovascular accident) Tobacco dependence syndrome Hip fracture requiring operative repair, right, closed, initial encounter ([facility]) Memory impairment Examination of participant in clinical trial Malignant neoplasm of upper-outer quadrant of female breast (HCC) Fall Leukocytosis Closed fracture of hip (HCC) Unsteady gait Type 2 diabetes mellitus with hyperglycemia, with long-term current use of insulin (HCC) Acute cystitis E-coli UTI Obesity History of radial keratotomy Psychophysiological insomnia Hypomagnesemia Essential hypertension Mixed anxiety depressive disorder Hyperlipidemia Atrial fibrillation (HCC) Noncompliance with treatment regimen Weakness UTI (urinary tract infection) Hyperglycemia Closed fracture of multiple ribs of right side, initial encounter I have personally performed a face to face diagnostic evaluation on this patient. I have reviewed and agree with the care plan as documented above by my DYE MAKER/DEYVI. I personally discussed the review of systems and interviewed the patient along with performing a physical examination. In addition, I discussed the patient's condition and treatment options with him/her when possible. All of the patient's questions were answered and family updated when appropriate and possible. I I performed a physical exam and ROS on the same date of service as above. My findings agree with the above note except for any details corrected below. 78F s/p fall on 12/07 resulting in acute R rib fractures # 8, 9, 10 w/ large R hemothorax now s/p R VATS evacuation of retained hemothorax, ORIF of ribs 9, 10 and cryoablation of intercostal nerves 5-10. Chest tube removed 12/19. PT recommending SNF. Doing well and awaiting discharge to rehab. Charlotte Braswell MD Division of Trauma Department of Surgery [facility] Images from the original note were not included. PHYSICAL THERAPY [facility] Treatment Note Name/MRN: Beverly Agee ([id number]) Date of : 1945 Age: 78 y.o. Room/Bed: [facility] A Discharge Recommendation: IP Rehab Equipment Needed: No Other: tbd Prior Level of Function ADL Assistance: Independent Ambulation Assistance: Independent Transfer Assistance: Independent Assessment Pt min assist for all functional mobility. Unsteady, increase time to complete task. Voices her fear of falling. Not at her baseline. Rec rehab upon discharge. Subjective Pt in bed, agreeable to PT. Pain: Benjamin-Yu Pain Ratin = Hurts a little bit Pain Location: side/ribs Medical Precautions: No active isolations Proper PPE donned/doffed in accordance with facility standards. Fall Risk: Loyd Fall Risk Score: 85 (High Risk) Precautions/Restrictions: Lines/Drains/Airways: PIV, tele, Overall Cognitive Status: WNL Overall Orientation Status: Oriented x4 Family/Caregiver Present: none Objective Ambulation Ambulation 1 Assistive device(s) used: front wheeled walker Assist level: Min Assist Distance (ft): 3 ft bed>BSC Quality of gait: uneven step length, slow savanna, postural sway, unsteady, fatigue, flexed posture Ambulation 2 Assistive device(s) used: front wheeled walker Assist level: Min Assist Distance (ft): 20ft Quality of gait: uneven step length, slow savanna, flexed posture, extra time, fatigue Transfers/Mobility Sit to stand: Min Assist Stand to sit: Min Assist X 3 reps; EOB and BSC x 2 Device(s) used: front wheeled walker Exercises Exercises Heelslides: x 10 reps each Gluteal Sets: x 10 reps Hip Abduction: supine x 10 reps each Knee Long Arc Quad: x 10 reps each Ankle Pumps: x 10 reps each Upper Extremity: P&C ex #1-9 all x 10 reps each Bed Mobility Supine to sit: Min Assist Rolling to right: Min Assist Scooting: Min Assist HOB elevated, bed rails used. Increase time. Balance: seated at EOB, no c/o dizziness, occasional UE support, SBA; standing with FWW, postural sway, flexed posture, min assist. Dynamic standing for hygiene care, min assist for balance, assist for posture hygiene care, fatigues, seated rest break needed. Plan Continue acute PT per plan of care. Safety/Education Safety Safety Devices in place: call light within reach, left in chair, chair alarm in place, gait belt, and patient at risk for falls Restraints: No Education Education Given To: patient Education Provided: PT Goals, Gait Training, Plan of Care, Home Exercise Program, Fall Prevention Education, Discharge Recommendations, Benefits of Increasing Activity, and Breathing Techniques Education Method: Verbal Barriers to Learning: None Education Outcome: Verbalized Understanding Outcome Measures AM-PAC AM-PAC Inpatient Mobility Raw Score (No Stairs) : 15 JH-HLM -HLM Score: Walked 10 steps or more (i.e. walked to restroom) Goals Patient Stated Goal: to feel better Encounter Problems Encounter Problems (Active) Balance Patient will maintain dynamic standing balance for 5 minutes with supervision in order to demonstrate decreased risk of falling. (Progressing) Start: 12/18/23 Expected End: 01/15/24 Mobility Patient will ambulate 75 feet with supervision and least restrictive device in order to improve safety and independence with mobility. (Progressing) Start: 12/18/23 Expected End: 01/15/24 Patient will ascend and descend 3 stairs with least restrictive device and supervision in order to safely negotiate home. (Not Addressed) Start: 12/18/23 Expected End: 01/15/24 Transfers Patient will perform bed mobility with supervision in order to improve independence and prepare for out of bed mobility. (Progressing) Start: 12/18/23 Expected End: 01/15/24 Patient will complete functional transfer with least restrictive device with modified independence in order to prepare for ambulation. (Progressing) Start: 12/18/23 Expected End: 01/15/24 Therapy Time Individual Co-treatment Time In 951 Time Out 1021 Minutes 29 Timed Code Treatment Minutes: 29 Minutes (fa; tp) Shaun Dalal PTA Images from the original note were not included. PHYSICAL THERAPY [facility] Treatment Note Name/MRN: Beverly Agee ([id number]) Date of : 1945 Age: 78 y.o. Room[facility]Bed: [facility] A Discharge Recommendation: IP Rehab Equipment Needed: No Other: tbd Prior Level of Function ADL Assistance: Independent Ambulation Assistance: Independent Transfer Assistance: Independent Assessment Pt requires min assist for all mobility at this time. No PT goals met this session. Recommend IP rehab at discharge. Subjective Pt supine in the bed, agrees to PT Pain: Pt denies any current pain. Medical Precautions: No active isolations Proper PPE donned/doffed in accordance with facility standards. Fall Risk: Loyd Fall Risk Score: 85 (High Risk) Precautions/Restrictions: Lines/Drains/Airways: PIV, tele, purewick Overall Cognitive Status: WFL Family/Caregiver Present: none Objective Ambulation Ambulation 1 Assistive device(s) used: front wheeled walker Assist level: Min Assist Distance (ft): 10 ft, 15 ft x 2 Ambulation 2 Assistive device(s) used: front wheeled walker Assist level: Min Assist Distance (ft): 25 ft Transfers/Mobility Sit to stand: Min Assist Stand to sit: Min Assist Bedside commode: Min Assist Verbal cues for hand placement with transfers Exercises Exercises Quad Sets: x 10 Heelslides: x10 Gluteal Sets: x 10 Knee Long Arc Quad: x10 Ankle Pumps: x15 rep BLE Bed Mobility Supine to sit: Min Assist Sit to supine: Min Assist Plan Continue acute PT per plan of care. Safety/Education Safety Safety Devices in place: All fall risk precautions in place, call light within reach, left in bed, gait belt, patient at risk for falls, and no alarms engaged upon entry Restraints: No Education Education Given To: patient Education Provided: PT Role, PT Goals, Gait Training, Plan of Care, Transfer Training, and Discharge Recommendations Education Method: Verbal Barriers to Learning: None Education Outcome: Verbalized Understanding and Continued Education Needed Outcome Measures AM-PAC AM-PAC Inpatient Mobility Raw Score (No Stairs) : 15 JH-HLM JH-HLM Score: Walked 25 ft or more (i.e. walked outside of room) Goals Patient Stated Goal: to feel better Encounter Problems Encounter Problems (Active) Balance Patient will maintain dynamic standing balance for 5 minutes with supervision in order to demonstrate decreased risk of falling. (Progressing) Start: 12/18/23 Expected End: 01/15/24 Mobility Patient will ambulate 75 feet with supervision and least restrictive device in order to improve safety and independence with mobility. (Progressing) Start: 12/18/23 Expected End: 01/15/24 Patient will ascend and descend 3 stairs with least restrictive device and supervision in order to safely negotiate home. (Not Addressed) Start: 12/18/23 Expected End: 01/15/24 Transfers Patient will perform bed mobility with supervision in order to improve independence and prepare for out of bed mobility. (Progressing) Start: 12/18/23 Expected End: 01/15/24 Patient will complete functional transfer with least restrictive device with modified independence in order to prepare for ambulation. (Progressing) Start: 12/18/23 Expected End: 01/15/24 Therapy Time Individual Co-treatment Time In 1515 Time Out 1543 Minutes 28 Timed Code Treatment Minutes: (GT, FA) Blanca Treviño PTA [facility] Medicine Inpatient Consult Service Admission Date: 12/12/2023 Assessment Principal Problem: Closed fracture of multiple ribs of right side, initial encounter Plan Acute pain due to trauma -Improving after CT removed -Continue scheduled acetaminophen 1g TID with PRN oxycodone (5-10mg) PRN for breakthrough. Tolerating PRN oxycodone use, using 10mg 2 times a day for the past 2 days -Optimize nonpharmacologic pain treatment modalities. -Ensure that bowel regimen is in place while on narcotic regimen. Fall -Multiple risk factors including weakness, cognitive deficits, diabetes, and possible medication side effect -Continue PT/OT as able while inpatient -Vitamin D low - see below -Check orthostatic vital signs as able -Medications with associated fall risk include: Insulin - continue closely monitoring blood sugars to determine most appropriate discharge dosing. Avoid hypoglycemia. Antihypertensives - continue to monitor vitals. Vitamin D deficiency Lab Results Component Value Date VITD25 25 (L) 12/14/2023 --Continue high dose replacement 50,000 Qweek x 8 weeks; follow up with PCP for follow up levels and need for on-going supplementation. Cognitive deficits --+ history of cognitive decline at home since stroke. + history of decline in IADL's --No recent TSH noted, B12 (623) WNL --Head imaging - none recent --At risk for vascular dementia given cognitive changes since stroke in 2016. --Recommend outpatient follow up at [facility] ([facility]) for more in depth cognitive evaluation when in usual state of health. Follow up information has been placed on discharge instructions At risk for delirium --Not delirious today --Risk factors: pain, advanced age, high risk medications, and baseline cognitive deficits --Encourage PO intake, time up in chair, family visits, supervised ambulation, and sleep hygiene --If agitated, assess for and consider treating for pain --QTc= 431 on 12/13 --No antipsychotic unless patient is danger to self/others/treatment --Continue scheduled melatonin at HS --Monitor for constipation/urinary retention - last BM 12/18 --Possible medication contributions: n/a Polypharmacy -Continue home trazodone 50 mg at bedtime prn-used last on 12/18 -Agree with slower reduction of venlafaxine - continue 150mg in the AM, 75mg in the PM. Recommend switching PM dose to 4pm to prevent interference with sleep. -Continue home Vitamin B12 500 mcg daily, and folic acid 400 mcg daily -Watch for need to restart losartan 25 mg daily - on [employer] , not on now. Overall Sbp controlled without losartan Declining functional status --Related to acute injuries, physical deconditioning --Continue PT/OT as able while inpatient --Anticipate d/c to SNF for ongoing daily PT/OT; patient and family agreeable to SNF, awaiting precert to [facility] OK to d/c to SNF from geriatrics standpoint when cleared by primary team/other consultants. Follow-up: prn, please page with any questions/issues Subjective Chief Complaint: fall Geriatrics consulted for "Fall at home with rib Fx and hemothorax HPI- The patient is new to me but seen by the Geriatric Inpatient Consult team. 78 y.o. year-old female admitted to acute care from home for falls. Diagnosed with hemothorax, rib fracture. Per initial geriatrics consult, lives at home alone. History of recurrent falls over the past year. Memory decline since stroke in 2016. Independent in ADL's, family manages most IADL's. Interval History: Remains on general medical/surgical floor . Patient today reports her pain is much better now that the CT has been removed. She reports she slept well last night. She knows she is going to rehab for PT/OT. Reports occasional cough Discussed with nurse, no agitation or disruptive behaviors noted. Patient has been cooperative with medications. Progress notes reviewed: -family has chosen [facility] for SNF -if CXR stable in the AM, restart home eliquis PRN meds in past 24 hours: Oxycodone 10mg times 2 on 12/19 Labs: 12/20: Sodium 135, Potassium 4.0, BUN 23, Creatinine 0.69 12/20: WBC 9.5 (improving), Hgb 9.9, platelets 406 Seen by PT 12/20. Sit to stand min assist, stand to sit contact guard. Ambulating 18 feet times 2, min assist with stand rest. Recommending IP Rehab Review of Systems Constitutional: Positive for activity change. HENT: Negative for congestion and rhinorrhea. Respiratory: Positive for cough (occasional). Negative for shortness of breath. Cardiovascular: Negative for chest pain, palpitations and leg swelling. Gastrointestinal: Negative for abdominal distention, constipation and nausea. Genitourinary: Negative for difficulty urinating and dysuria. Musculoskeletal: Positive for arthralgias, gait problem and myalgias. Neurological: Positive for weakness. Negative for dizziness, light-headedness and headaches. Psychiatric/Behavioral: Positive for confusion. Negative for sleep disturbance. Objective BP 120/70 (BP Location: Left arm, Patient Position: Sitting) Pulse 90 Temp 36.2 C (97.2 F) (Temporal) Resp 16 Ht 5' 3" (1.6 m) Wt 160 lb (72.6 kg) SpO2 97% BMI 28.34 kg/m Intake/Output Summary (Last 24 hours) at 12/21/2023 1310 Last data filed at 12/21/2023 0448 Gross per 24 hour Intake -- Output 600 ml Net -600 ml Wt Readings from Last 3 Encounters: 12/12/23 160 lb (72.6 kg) 12/11/23 160 lb (72.6 kg) 08/30/22 208 lb 3.2 oz (94.4 kg) Current Facility-Administered Medications: acetaminophen (Tylenol) tablet 1,000 mg, 1,000 mg, Oral, q8h, Lucille Soto MD, 1,000 mg at 12/21/23 1201 cyanocobalamin (Vitamin B-12) tablet 500 mcg, 500 mcg, Oral, Daily, Birgit Ramsey MD, 500 mcg at 12/21/23 0814 dextrose 5 % infusion, 100 mL/hr, IntraVENous, PRN, Evan Richardson MD dextrose 50 % solution 12.5 g, 12.5 g, IntraVENous, PRN, Lucille Soto MD enoxaparin (Lovenox) syringe 40 mg, 40 mg, SubCUTAneous, q12h, Ricky Abel MD, 40 mg at 12/21/23 0536 ergocalciferol (Vitamin D2) capsule 1.25 mg, 1.25 mg, Oral, Weekly, Cass Howe APRN - PROGRAM DEVELOPMENT MANAGER, 1.25 mg at 12/15/23 0954 fenofibrate (Tricor) tablet 54 mg, 54 mg, Oral, Daily, Ricky Abel MD, 54 mg at 12/21/23 0815 folic acid (Folvite) tablet 1 mg, 1 mg, Oral, Daily, Birgit Ramsey MD, 1 mg at 12/21/23 0814 glucagon (human recombinant) injection 1 mg, 1 mg, IntraMUSCular, PRN, Evan Richardson MD glucose oral gel 15 g, 15 g, Oral, PRN, Lucille Soto MD glucose oral gel 15 g, 15 g, Oral, PRN, Evan Richardson MD, 15 g at 12/16/23 0217 hydrALAZINE (Apresoline) injection 10 mg, 10 mg, IntraVENous, q4h PRN, Linda Bueno MD insulin glargine (Lantus) injection 13 Units, 13 Units, SubCUTAneous, BID, Carmel Ceballos, DYE MAKER - PROGRAM DEVELOPMENT MANAGER, 13 Units at 12/21/23 0814 Insulin Lispro (Humalog) injection 0-18 Units, 0-18 Units, SubCUTAneous, TID WC, 3 Units at 12/21/23 1201 AND Insulin Lispro (Humalog) injection 0-18 Units, 0-18 Units, SubCUTAneous, Nightly, Linda Bueno MD, 6 Units at 12/17/23 2044 ipratropium-albuterol (Duo-Neb) 0.5-2.5 mg/3 mL nebulizer solution 3 mL, 3 mL, Nebulization, BID PRN, Charlotte Braswell MD labetalol (Normodyne,Trandate) injection 10 mg, 10 mg, IntraVENous, q4h PRN, Linda Bueno MD magnesium oxide (Mag-Ox) tablet 400 mg, 400 mg, Oral, BID, Birgit Ramsey MD, 400 mg at 12/21/23813 melatonin tablet 5 mg, 5 mg, Oral, Nightly, Lucille Soto MD, 5 mg at 12/20/232001 naloxone (Narcan) injection 0.4 mg, 0.4 mg, IntraVENous, PRN, Lucille Soto MD ondansetron ODT (Zofran-ODT) disintegrating tablet 4 mg, 4 mg, Oral, q8h PRN OR ondansetron (Zofran) injection 4 mg, 4 mg, IntraVENous, q6h PRN, Lucille Soto MD oxyCODONE (Roxicodone) immediate release tablet 5 mg, 5 mg, Oral, q6h PRN, 5 mg at 12/18/23 1504 OR oxyCODONE (Roxicodone) immediate release tablet 10 mg, 10 mg, Oral, q6h PRN, Lucille Soto MD, 10 mg at 12/20/23 1513 polyethylene glycol (PEG) 3350 (Miralax) packet 17 g, 17 g, Oral, Daily PRN, Lucille Soto MD, 17 g at 12/16/23 0954 polyethylene glycol (PEG) 3350 (Miralax) packet 17 g, 17 g, Oral, Daily, Jess Roca MD, 17 g at 12/21/23 0814 pravastatin (Pravachol) tablet 80 mg, 80 mg, Oral, Daily, Lucille Soto MD, 80 mg at 12/21/23 0814 sennosides (Senokot) tablet 8.6 mg, 1 tablet, Oral, Nightly, Birgit Ramsey MD, 8.6 mg at 12/20/232001 sodium chloride 3 % hypertonic nebulizer solution 4 mL, 4 mL, Nebulization, PRN, Evan Richardson MD stomahesive in petrolatum (ET Mix), , Topical, q8h, Rhianna Engel APRN - DONY, Given at 12/21/23 1201 stomahesive in petrolatum (ET Mix), , Topical, PRN, Rhianna Engel APRN - PROGRAM DEVELOPMENT MANAGER traZODone (Desyrel) tablet 50 mg, 50 mg, Oral, Nightly PRN, Linda Bueno MD, 50 mg at 12/19/23 2205 venlafaxine XR (Effexor XR) 24 hr capsule 150 mg, 150 mg, Oral, Daily with breakfast, Birgit Ramsey MD, 150 mg at 12/21/23 0815 venlafaxine XR (Effexor XR) 24 hr capsule 75 mg, 75 mg, Oral, Nightly, Birgit Ramsey MD, 75 mg at 12/20/232002 Physical Exam Vitals and nursing note reviewed. Constitutional: General: She is not in acute distress. Comments: Pleasant female sitting up in bed, on RA, talkative. Patient's son at bedside HENT: Right Ear: External ear normal. Left Ear: External ear normal. Nose: Nose normal. No congestion. Mouth/Throat: Mouth: Mucous membranes are moist. Pharynx: Oropharynx is clear. Eyes: General: Right eye: No discharge. Left eye: No discharge. Conjunctiva/sclera: Conjunctivae normal. Cardiovascular: Rate and Rhythm: Normal rate. Pulses: Normal pulses. Pulmonary: Effort: Pulmonary effort is normal. No respiratory distress. Breath sounds: Normal breath sounds. No wheezing or rales. Comments: Right CT removed, occlusive dressing intact with serous drainage. Chest: Chest wall: Tenderness (R side) present. Abdominal: General: Bowel sounds are normal. There is no distension. Palpations: Abdomen is soft. Tenderness: There is no abdominal tenderness. There is no guarding. Musculoskeletal: General: Tenderness (R side of chest) present. Right lower leg: No edema. Left lower leg: No edema. Skin: General: Skin is warm and dry. Findings: Bruising (right lateral chest) present. Comments: Ecchymosis notes to R lateral chest and lower abdomen Neurological: Mental Status: She is alert and oriented to person, place, and time. Psychiatric: Mood and Affect: Mood normal. Behavior: Behavior normal. Labs and Imaging: Recent Results (from the past 24 hour(s)) POCT glucose meter Collection Time: 12/20/23 5:46 PM Result Value Ref Range Glucose 167 (H) 70 - 100 mg/dL POCT glucose meter Collection Time: 12/20/23 7:58 PM Result Value Ref Range Glucose 111 (H) 70 - 100 mg/dL CBC Collection Time: 12/21/23 4:20 AM Result Value Ref Range Auto WBC 9.5 3.6 - 10.7 10*3/uL RBC 3.46 (L) 3.80 - 5.20 10*6/uL Hemoglobin 9.9 (L) 11.7 - 16.0 g/dL Hematocrit 31.6 (L) 35.0 - 47.0 % MCV 91.3 77.0 - 99.0 fL MCH 28.6 26.0 - 34.0 pg MCHC 31.3 30.5 - 36.0 % RDW 14.0 11.5 - 15.0 % Platelets 406 140 - 440 10*3/uL MPV 9.2 9.0 - 12.7 fL Basic metabolic panel Collection Time: 12/21/23 4:20 AM Result Value Ref Range SODIUM 135 135 - 145 mmol/L POTASSIUM 4.0 3.5 - 5.1 mmol/L CHLORIDE 101 98 - 107 mmol/L CARBON DIOXIDE 30 22 - 30 mmol/L UREA NITROGEN 23 (H) 7 - 17 mg/dL CREATININE 0.69 0.52 - 1.04 mg/dL GLUCOSE 79 70 - 100 mg/dL CALCIUM 9.4 8.4 - 10.4 mg/dL ANION GAP 4 3 - 13 mmol/L eGFR >90.0 >60.0 mL/min/1.73m*2 POCT glucose meter Collection Time: 12/21/23 7:34 AM Result Value Ref Range Glucose 101 (H) 70 - 100 mg/dL POCT glucose meter Collection Time: 12/21/23 11:57 AM Result Value Ref Range Glucose 177 (H) 70 - 100 mg/dL No results found for: "TSH" Lab Results Component Value Date [id number] 623 12/13/2023 Lab Results Component Value Date VITD25 25 (L) 12/14/2023 Reviewed: active problem lists, medications, and labs Images from the original note were not included. OCCUPATIONAL THERAPY [facility] Treatment Note Name/MRN: Beverly Agee ([id number]) Date of : 1945 Age: 78 y.o. Room/Bed: 63/4848 A Discharge Recommendation: IP Rehab Prior Level of Function ADL Assistance: Independent Ambulation Assistance: Independent Device(s) used: front wheeled walker Transfer Assistance: Independent Assessment Progressing toward goals; Would benefit from intensive rehab level therapies at discharge. Subjective Pt in chair, agrees to OT. Son present part of session. Pt c/o R flank pain, does not quantify. Medical Precautions: No active isolations Proper PPE donned/doffed in accordance with facility standards. Fall Risk: Loyd Fall Risk Score: 85 (High Risk) Objective ADLs Grooming: Supervision, chair level LE Dressing: Mod Assist Toileting: Mod Assist Transfers/Mobility Sit to stand: Min Assist, from chair, cues for technique Stand to sit: Min Assist Stand step: Min Assist, FWW Bedside commode: Min Assist Standing balance: Min Assist, static stand at FWW IS x 10 reps, 750ml-1000ml, cues for technique and reinforced instruction. Pt appears with good understanding but admits memory deficit. Marked IS with frequency. Plan Continue acute OT per plan of care. Safety/Education Safety Safety Devices in place: call light within reach, left in chair, and chair alarm in place Restraints: N/A AM-PAC AM-PAC Inpatient Daily Activity Raw Score: 18 ADL Inpatient CMS G-Code Modifier: CK Goals Patient Stated Goal: na Encounter Problems Encounter Problems (Active) Dressings Lower Extremities Patient will dress lower body Estephania (Progressing) Start: 12/18/23 Expected End: 01/15/24 Grooming Patient will complete daily grooming tasks Estephania at sink (Not Addressed) Start: 12/18/23 Expected End: 01/15/24 Toileting Patient will complete toileting tasks Estephania (Progressing) Start: 12/18/23 Expected End: 01/15/24 Transfers Patient will complete functional toilet transfer Estephania (Progressing) Start: 12/18/23 Expected End: 01/15/24 Therapy Time Individual Co-treatment Time In 1041 Time Out 1106 Minutes 25 Timed Code Treatment Minutes: (Funct--1; Self--1) GWENDOLYN Purcell Images from the original note were not included. PHYSICAL THERAPY [facility] Treatment Note Name/MRN: Beverly Agee ([id number]) Date of : 1945 Age: 78 y.o. Room/Bed: -6113/-6113 A Discharge Recommendation: IP Rehab Equipment Needed: No Other: tbd Prior Level of Function ADL Assistance: Independent Ambulation Assistance: Independent Transfer Assistance: Independent Assessment Pt progressing w/ PT mobility goals, and is limited by increased pain w/ trunk exertion and LE weakness w/ WB activity. Pt able to sit EOB w/ Min/Mod x1 today; HOB elevated. Pt able to stand x2 trials w/ Min x1 today. Pt able to increase ambulation distance w/ x1 stand rest and FWW. Pt would benefit from ongoing Facility based therapy post Disch. Subjective Pt in bed, agreeable to PT. Nsg cleared pt for PT. Pt reports she has a poor short term memory, and could not remember any of cues for pursed lip exhale w/ exertion, how far she was able to walk yesterday... Pain: RN managing pain. Pt reported increased pain w/ trunk exertion. Cues for pursed lip exhale w/ exertion and pillow splinting w/ coughing Medical Precautions: No active isolations Proper PPE donned/doffed in accordance with facility standards. Fall Risk: Loyd Fall Risk Score: 85 (High Risk) Precautions/Restrictions: Lines/Drains/Airways: PIV, tele, purewick Overall Cognitive Status: WFL Overall Orientation Status: Oriented to Place, Oriented to Time, Oriented to Situation, and Oriented to Person Family/Caregiver Present: none Objective Ambulation Ambulation 1 Assistive device(s) used: front wheeled walker Assist level: Min Assist Distance (ft): 18ft x2; stand rest Quality of gait: antalgic, reciprocal stepping, B foot clearance, uneven step length, slow savanna, instability through all phases Ambulation 2 Assistive device(s) used: front wheeled walker Assist level: Min Assist Distance (ft): 16ft x2 Quality of gait: antalgic, reciprocal stepping, B foot clearance, uneven step length, slow savanna, instability through all phases Transfers/Mobility Sit to stand: Min Assist Stand to sit: Contact Guard X2 from EOB Device(s) used: front wheeled walker Exercises Exercises Heelslides: x8 rep ea LE AROM Knee Long Arc Quad: x10 rep ea LE Ankle Pumps: x15 rep BLE Upper Extremity: shoulder flexion, ABD, shrugs x8 rep ea BUE AROM Comments: Pt encouraged to perform I.S. and BUE ROM Ex on own during day Other exercises Other exercises?: No Other exercises 1: IS x5 to 750mL Bed Mobility Supine to sit: Mod Assist Rolling to right: Min Assist Scooting: Min Assist HOB elevated; use of rail Balance: Pt able to stand w/ FWW; progressed to lateral weight shifting to mini marches to prepare for gait; CGA Posture: fair Sitting - Static: SBA Sitting - Dynamic: Contact Guard, Min Assist Standing - Static: Contact Guard, Min Assist Standing - Dynamic: Min Assist Plan Continue acute PT per plan of care. Safety/Education Safety Safety Devices in place: All fall risk precautions in place, call light within reach, left in chair, chair alarm in place, gait belt, patient at risk for falls, and nurse notified Restraints: No Education Up in chair for meals; up to BSC or toilet w/ assist; ambulate x3 daily w/ assist Outcome Measures AM-PAC AM-PAC Inpatient Mobility Raw Score (No Stairs) : 14 JH-HLM JH-HLM Score: Walked 25 ft or more (i.e. walked outside of room) Other: na Goals Patient Stated Goal: to feel better Encounter Problems Encounter Problems (Active) Balance Patient will maintain dynamic standing balance for 5 minutes with supervision in order to demonstrate decreased risk of falling. (Progressing) Start: 12/18/23 Expected End: 01/15/24 Mobility Patient will ambulate 75 feet with supervision and least restrictive device in order to improve safety and independence with mobility. (Progressing) Start: 12/18/23 Expected End: 01/15/24 Patient will ascend and descend 3 stairs with least restrictive device and supervision in order to safely negotiate home. (Not Addressed) Start: 12/18/23 Expected End: 01/15/24 Transfers Patient will perform bed mobility with supervision in order to improve independence and prepare for out of bed mobility. (Progressing) Start: 12/18/23 Expected End: 01/15/24 Patient will complete functional transfer with least restrictive device with modified independence in order to prepare for ambulation. (Progressing) Start: 12/18/23 Expected End: 01/15/24 Therapy Time Individual Co-treatment Time In 0958 Time Out 1015 Minutes 17 Timed Code Treatment Minutes: 17 Minutes (GT x1) Marbin Mcguire PTA Images from the original note were not included. OCCUPATIONAL THERAPY [facility] Treatment Note Name/MRN: Beverly Agee ([id number]) Date of : 1945 Age: 78 y.o. Room/Bed: H-6113/H-6113 A Discharge Recommendation: IP Rehab Prior Level of Function ADL Assistance: Independent Ambulation Assistance: Independent Device(s) used: front wheeled walker Transfer Assistance: Independent Assessment Limited session as pt just returned to bed. Would benefit from ongoing OT at discharge. Most appropriate for intensive rehab level to promote return to functional baseline. Subjective P in bed, just returned via nursing staff. C/o R flank pain (chest tube out), does not quantify. Medical Precautions: No active isolations Proper PPE donned/doffed in accordance with facility standards. Fall Risk: Loyd Fall Risk Score: 85 (High Risk) Family/Caregiver Present: none Objective ADLs Grooming: Supervision, bed level; wash face, comb hair Exercise Comment: BUE ROM, 2 sets x 10 reps x 5 exer, brief rests between sets. Suggest completion of same 10x/hour while awake. IS to 1000, 5 reps. Encouraged 10 x/hour while awake. pt verbalizes understanding of all. Plan Continue acute OT per plan of care. Safety/Education Safety Safety Devices in place: call light within reach and left in bed Restraints: N/A AM-PAC AM-PAC Inpatient Daily Activity Raw Score: 17 ADL Inpatient CMS G-Code Modifier: CK Goals Patient Stated Goal: na Encounter Problems Encounter Problems (Active) Dressings Lower Extremities Patient will dress lower body Estephania (Not Addressed) Start: 12/18/23 Expected End: 01/15/24 Grooming Patient will complete daily grooming tasks Estephania at sink (Progressing) Start: 12/18/23 Expected End: 01/15/24 Toileting Patient will complete toileting tasks Estephania (Not Addressed) Start: 12/18/23 Expected End: 01/15/24 Transfers Patient will complete functional toilet transfer Estephania (Not Addressed) Start: 12/18/23 Expected End: 01/15/24 Therapy Time Individual Co-treatment Time In 1502 Time Out 1512 Minutes 10 Timed Code Treatment Minutes: (Ther Ex--1) GWENDOLYN Purcell Images from the original note were not included. PHYSICAL THERAPY [facility] Treatment Note Name/MRN: Beverly Agee ([id number]) Date of : 1945 Age: 78 y.o. Room/Bed: H-6113/H-6113 A Discharge Recommendation: IP Rehab Equipment Needed: No Other: tbd Prior Level of Function ADL Assistance: Independent Ambulation Assistance: Independent Transfer Assistance: Independent Assessment Pt progressing w/ PT mobility goals, but is limited by BLE weakness and R rib pain w/ core/trunk exertion. Pt required Mod x1 to complete torso elevation w/ HOB elevated today. Pt able to stand x2 trials w/ Min x1 and FWW today. Pt able to ambulate w/ FWW for increased distance; narrow LUCA, shuffling gait pattern and unsteady BLE during gait cycle. Pt encouraged to ambulate in room w/ assist multiple times daily. Pt would benefit from ongoing Facility based therapy post Disch. Subjective Pt in bed, reports her chest tube was pulled about 30 min ago. Pt agreeable to PT. Nsg cleared Pt for PT. Pt reports she was having falls almost daily for weeks [employer] for broken ribs. Pain: RN managing pain. Pt reports "tolerable pain" after PT Rx now that chest tube is removed Medical Precautions: No active isolations Proper PPE donned/doffed in accordance with facility standards. Fall Risk: Loyd Fall Risk Score: 85 (High Risk) Precautions/Restrictions: Lines/Drains/Airways: PIV, tele, chest tube to wall suction, purewick, 2L O2 via NC Overall Cognitive Status: WFL Overall Orientation Status: Oriented to Place, Oriented to Time, Oriented to Situation, and Oriented to Person Family/Caregiver Present: none Objective Ambulation Ambulation 1 Assistive device(s) used: front wheeled walker Assist level: Min Assist Distance (ft): 15ft x2 Quality of gait: reciprocal stepping, B foot clearance, shuffling, uneven step length, narrow LUCA, slow savanna, instability through all phases, intermittent knee buckling noted Transfers/Mobility Sit to stand: Min Assist Stand to sit: Contact Guard X2 from EOB; Cues for pursed lip exhale w/ core exertion Device(s) used: front wheeled walker Exercises Exercises Heelslides: x8 rep ea LE AROM Hip Extension/Leg Presses: x3 rep ea LE w/ light manual resist in extn. Knee Long Arc Quad: x10 rep ea LE Ankle Pumps: x15 rep BLE Bed Mobility Supine to sit: Mod Assist Rolling to right: Min Assist Scooting: Contact Guard, Min Assist HOB elevated; use of rail noted Balance: Pt rodrigo to sit EOB w/o UE support w/ no truncal LOB noted. Pt able to stand w/ FWW; progressed to lateral weight shifting--> mini marches Posture: fair Sitting - Static: SBA Sitting - Dynamic: Contact Guard, Min Assist Standing - Static: Contact Guard, Min Assist Standing - Dynamic: Min Assist Plan Continue acute PT per plan of care. Safety/Education Safety Safety Devices in place: All fall risk precautions in place, call light within reach, left in chair, chair alarm in place, gait belt, patient at risk for falls, and nurse notified Restraints: No Education Up to chair daily for meals; up to BSC or toilet w/ assist; ambulate daily w/ assist; I.S. every hour while awake Outcome Measures AM-PAC AM-PAC Inpatient Mobility Raw Score (No Stairs) : 14 JH-HLM JH-HLM Score: Walked 25 ft or more (i.e. walked outside of room) Other: na Goals Patient Stated Goal: to feel better Encounter Problems Encounter Problems (Active) Balance Patient will maintain dynamic standing balance for 5 minutes with supervision in order to demonstrate decreased risk of falling. (Progressing) Start: 12/18/23 Expected End: 01/15/24 Mobility Patient will ambulate 75 feet with supervision and least restrictive device in order to improve safety and independence with mobility. (Progressing) Start: 12/18/23 Expected End: 01/15/24 Patient will ascend and descend 3 stairs with least restrictive device and supervision in order to safely negotiate home. (Not Addressed) Start: 12/18/23 Expected End: 01/15/24 Transfers Patient will perform bed mobility with supervision in order to improve independence and prepare for out of bed mobility. (Progressing) Start: 12/18/23 Expected End: 01/15/24 Patient will complete functional transfer with least restrictive device with modified independence in order to prepare for ambulation. (Progressing) Start: 12/18/23 Expected End: 01/15/24 Therapy Time Individual Co-treatment Time In 1041 Time Out 1108 Minutes 27 Timed Code Treatment Minutes: 27 Minutes (FA x1; GT x1) Marbin Mcguire PTA At patient bedside for chest tube removal. Explained procedure to patient and patient voiced understanding. Chest tube negative for air leak. Sutures removed and upon a large inspiratory breath, chest tube removed and occlusive dressing immediately applied. Pt tolerated procedure well. Follow-up chest xray ordered in 4 hours. Images from the original note were not included. [facility] Wound Care Progress Note Beverly Agee AGE: 78 y.o. GENDER: female : 1945 Subjective: HISTORY of PRESENT ILLNESS HPI Beverly Agee is a 78 y.o. female who presents for a wound follow up. HPI: 78 y.o. female status post fall 4 days ago. The incident happened on 12/10/23 at home. When the event happened the patient fell and hit a table. She was seen by her PCP on 12/10 who ordered CXR, which showed rib fracture. She presented to [place] ED with SOB, hypoxic, and tachycardic. CT showed large R effusion likely hemothorax. Wound Care consulted for pressure injury. Patient resting in bed, eating breakfast at time of visit. Treatment applied at time of visit. 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 Depression History of blood transfusion Hyperlipidemia Hypertension Type II or unspecified type diabetes mellitus without mention of complication, not stated as uncontrolled (HCC) PAST SURGICAL HISTORY Past Surgical History: Procedure Laterality Date BREAST LUMPECTOMY Left BREAST LUMPECTOMY Left 2012 s/p radiation as well CATARACT EXTRACTION W/ INTRAOCULAR LENS IMPLANT Bilateral 10/2015, 12/2015 SECTION (HISTORICAL) CHOLECYSTECTOMY DILATION AND CURETTAGE OF UTERUS FEMUR FRACTURE SURGERY Right 11/30/2019 HIP ARTHROPLASTY Right 01/21/2020 conversion JOINT REPLACEMENT Bilateral ROTATOR CUFF REPAIR Right TOTAL ABDOMINAL HYSTERECTOMY FAMILY HISTORY Family History Problem Relation Name Age of Onset Asthma Son Thyroid disease Brother Cancer Mother Cancer Father Thyroid disease Mother Cancer Brother Asthma Son Asthma Son SOCIAL HISTORY Social History Tobacco Use Smoking status: Every Day Packs/day: .75 Types: Cigarettes Smokeless tobacco: Never Substance Use Topics Alcohol use: Yes Alcohol/week: 0.0 standard drinks of alcohol Drug use: No ALLERGIES Allergies Allergen Reactions Aspirin Hives and Swelling Blotchy, GI, hives Penicillins blotchiness Sulfa Antibiotics Hives and Swelling blotchy MEDICATIONS No current facility-administered medications on file prior to encounter. Current Outpatient Medications on File Prior to Encounter Medication Sig Dispense Refill ascorbic acid (Vitamin C) 1000 MG tablet Take 1,000 mg by mouth daily. cholecalciferol (Vitamin D-3) 25 MCG (1000 UT) capsule Take 1,000 Units by mouth in the morning. cyanocobalamin (Vitamin B-12) 1000 MCG tablet Take 500 mcg by mouth in the morning. fenofibrate (Tricor) 145 MG tablet Take 1 tablet (145 mg) by mouth in the morning. 30 tablet 5 folic acid (Folvite) 400 MCG tablet Take by mouth daily. insulin aspart (NovoLOG FLEXPEN) 100 UNIT/ML pen Inject 10 Units under the skin in the morning and 10 Units at noon and 10 Units in the evening. Inject with meals. (Patient taking differently: Inject under the skin 3 times daily (with meals). Patient unsure of mealtime doses) 9 mL 1 insulin glargine (Basaglar KwikPen) 100 UNIT/ML pen Inject 30 Units under the skin 2 times daily. (Patient taking differently: Inject 30 Units under the skin 2 times daily. Patient unsure of dose) 3 mL 1 losartan (Cozaar) 50 MG tablet Take 1 tablet (50 mg) by mouth in the morning. Take 50 mg by mouth in the morning.. (Patient taking differently: Take 25 mg by mouth daily. Take 50 mg by mouth in the morning.) 90 tablet 1 magnesium oxide (Mag-Ox) 400 MG tablet Take 1 tablet (400 mg) by mouth in the morning and 1 tablet (400 mg) before bedtime. 180 tablet 1 pravastatin (Pravachol) 80 MG tablet Take 1 tablet (80 mg) by mouth in the morning. 90 tablet 1 rivaroxaban (Xarelto) 20 MG tablet TAKE 1 TABLET BY MOUTH EVERY MORNING WITH BREAKFAST 90 tablet 1 traZODone (Desyrel) 50 MG tablet Take 50 mg by mouth Nightly as needed for sleep. Patient states she takes most nights venlafaxine XR (Effexor XR) 150 MG 24 hr capsule TAKE 1 CAPSULE BY MOUTH TWICE DAILY 180 capsule 1 [DISCONTINUED] insulin aspart (NovoLOG) 100 UNIT/ML pen Inject 10 Int'l Units under the skin. [DISCONTINUED] mirtazapine (Remeron) 30 MG tablet Take 1 tablet (30 mg) by mouth Nightly. 90 tablet 1 REVIEW OF SYSTEMS Pertinent items are noted in HPI. Objective: BP 127/60 (BP Location: Right arm, Patient Position: Lying) Pulse 61 Temp 36.3 C (97.4 F) (Temporal) Resp 16 Ht 1.6 m (5' 3") Wt 72.6 kg (160 lb) SpO2 95% BMI 28.34 kg/m PHYSICAL EXAM General appearance: in no apparent distress, well developed and well nourished, non-toxic, in no respiratory distress and acyanotic, and alert Skin: warm and dry Pulmonary: Normal effort, no respiratory distress, no cyanosis Sacrum: open wound noted. 0.5x0.5xUTDcm. Slough noted to wound bed. Scant sreosang drainage present. Lisa-wound intact and fragile. Stable LABS CBC: Lab Results Component Value Date WBC 11.1 (H) 12/20/2023 HGB 8.9 (L) 12/20/2023 HCT 27.6 (L) 12/20/2023 MCV 90.5 12/20/2023 PLT 349 12/20/2023 BMP: Lab Results Component Value Date NA 133 (L) 12/20/2023 K 4.5 12/20/2023 CL 99 12/20/2023 CO2 31 (H) 12/20/2023 BUN 24 (H) 12/20/2023 CREATININE 0.82 12/20/2023 PT/INR: No results found for: "PROTIME", INR Prealbumin: No results found for: PREALBUMIN Albumin:No components found for: LABALBU Sed Rate:No results found for: SEDRATE Micro: No components found for: BC Assessment/Plan: Sacrum: Unstageable pressure injury - Present on admission - Cleanse with NS. Apply ET mix. Leave JUMP IRON MACHINE PRESSER. Apply TID and PRN. - Q2 hour turn and reposition - incontinent check q2hrs Nutritional support Wound Care to follow Recommend to follow up at [facility] wound care center after hospital discharge. Any questions or concerns please secure chat "ACH wound/ostomy". Thank you for the consult! I personally obtained the virk and critical portions of the history and physical exam. I reviewed the labs, imaging studies, and electronic medical record. I reviewed the chart documentation and discussed the patient with treatment team members. I have edited the note to reflect my clinical findings and my assessment and plan. Please note, the time of this note does not reflect the time I saw this patient today, but the time of this documentaton. Portions of this note including HPI, ROS, impression/plan, and examination may have been copied forward from admission to today as to provide important historical information essential in contributing to medical decision making. Documentation has been reviewed and edited as necessary to support clinical decision making for today's visit and to reflect my own independent evaluation of this patient. Decision making for today's visit and to reflect my own independent evaluation of this patient. [facility] Medicine Inpatient Consult Service Admission Date: 12/12/2023 Assessment Principal Problem: Closed fracture of multiple ribs of right side, initial encounter Plan Acute pain due to trauma --Recommend scheduled acetaminophen 1g TID with PRN oxycodone (5-10mg) PRN for breakthrough. Appears to be tolerating PRN oxycodone use. -Optimize nonpharmacologic pain treatment modalities. -Ensure that bowel regimen is in place while on narcotic regimen. Fall -Multiple risk factors includingweakness, cognitive deficits, diabetes, and possible medication side effect -Continue PT/OT as able while inpatient -Vitamin D low - see below -Check orthostatic vital signs as able -Medications with associated fall risk include: Insulin - continue closely monitoring blood sugars to determine most appropriate discharge dosing. Avoid hypoglycemia. Antihypertensives - continue to monitor vitals. Vitamin D deficiency Lab Results Component Value Date VITD25 25 (L) 12/14/2023 --Continue high dose replacement 50,000 Qweek x 8 weeks; follow up with PCP for follow up levels and need for on-going supplementation. Cognitive deficits --+ history of cognitive decline at home since stroke. + history of decline in IADL's --TSH WNL, B12 WNL --Head imaging - none recent --At risk for vascular dementia given cognitive changes since stroke in 2016. --Recommend outpatient follow up at [facility] for more in depth cognitive evaluation when in usual state of health. At risk for delirium --No evidence of at present --Risk factors: pain, advanced age, high risk medications, and baseline cognitive deficits --Encourage PO intake, time up in chair, family visits, supervised ambulation, and sleep hygiene --If agitated, assess for and consider treating for pain --QTc= 431 --No antipsychotic unless patient is danger to self/others/treatment --Continue scheduled melatonin at HS --Monitor for constipation/urinary retention - last BM 12/18 --Possible medication contributions: n/a Polypharmacy -Continue home trazodone 50 mg at bedtime prn -Agree with slower reduction of venlafaxine - continue 150mg in the AM, 75mg in the PM. Recommend switching PM dose to 4pm to prevent interference with sleep. -Continue home Vitamin B12 500 mcg daily, and folic acid 400 mcg daily -Watch for need to restart losartan 25 mg daily - on [employer] , not on now. Declining functional status --Related to acute injuries --Continue PT/OT as able while inpatient --Anticipate d/c to SNF for ongoing daily PT/OT; she is agreeable. OK to d/c to SNF from geriatrics standpoint when cleared by primary team/other consultants. Follow-up: 1-2 days Subjective Chief Complaint: fall Geriatrics consulted for "Fall at home with rib Fx and hemothorax HPI- The patient is known to me. 78 y.o. year-old female admitted to acute care from home for falls. Diagnosed with hemothorax, rib fracture. Per initial geriatrics consult, lives at home alone. History of recurrent falls over the past year. Memory decline since stroke in 2016. Independent in ADL's, family manages most IADL's. Interval History: Transferred to general medical/surgical floor . Remains cooperative with PO medications. Lantus decreased after low BS overnight. Continues to use PRN oxycodone 1-2x/day. Na improved to 132. WBC improved to 11. Pt reports feeling better. Still has pain in R ribs but tolerable, not significantly limited sleep or mobility. Knows she's in the hospital, feels safe, feels thinking is at baseline (describes that as "not great but not that bad either"). Not a great appetite still. Recalls plan for SNF at discharge, remains agreeable. Seen by PT and OT, min assist (improved), ambulated 6ft x 2 (improved), recommending SNF. Review of Systems Musculoskeletal: Positive for arthralgias, gait problem and myalgias. Psychiatric/Behavioral: Positive for confusion. Negative for sleep disturbance. Objective BP 95/53 Pulse 94 Temp (!) 35.9 C (96.6 F) Resp 18 Ht 5' 3" (1.6 m) Wt 160 lb (72.6 kg) SpO2 94% BMI 28.34 kg/m Intake/Output Summary (Last 24 hours) at 12/19/2023 1610 Last data filed at 12/19/2023 0622 Gross per 24 hour Intake -- Output 520 ml Net -520 ml Wt Readings from Last 3 Encounters: 12/12/23 160 lb (72.6 kg) 12/11/23 160 lb (72.6 kg) 08/30/22 208 lb 3.2 oz (94.4 kg) Current Facility-Administered Medications: acetaminophen (Tylenol) tablet 1,000 mg, 1,000 mg, Oral, q8h, Lucille Soto MD, 1,000 mg at 12/19/23 1246 cyanocobalamin (Vitamin B-12) tablet 500 mcg, 500 mcg, Oral, Daily, Birgit Ramsey MD, 500 mcg at 12/19/23 0818 dextrose 5 % infusion, 100 mL/hr, IntraVENous, PRN, Evan Richardson MD dextrose 50 % solution 12.5 g, 12.5 g, IntraVENous, PRN, Lucille Soto MD enoxaparin (Lovenox) syringe 40 mg, 40 mg, SubCUTAneous, q12h, Ricky Abel MD ergocalciferol (Vitamin D2) capsule 1.25 mg, 1.25 mg, Oral, Weekly, Cass Howe, RADHA - PROGRAM DEVELOPMENT MANAGER, 1.25 mg at 12/15/23 0954 fenofibrate (Tricor) tablet 54 mg, 54 mg, Oral, Daily, Ricky Abel MD, 54 mg at 12/19/23 1154 folic acid (Folvite) tablet 1 mg, 1 mg, Oral, Daily, Birgit Ramsey MD, 1 mg at 12/19/23 0818 glucagon (human recombinant) injection 1 mg, 1 mg, IntraMUSCular, PRN, Evan Richardson MD glucose oral gel 15 g, 15 g, Oral, PRN, Lucille Soto MD glucose oral gel 15 g, 15 g, Oral, PRN, Evan Richardson MD, 15 g at 12/16/23 0217 hydrALAZINE (Apresoline) injection 10 mg, 10 mg, IntraVENous, q4h PRN, Linda Bueno MD [DISCONTINUED] HYDROmorphone (Dilaudid) injection 0.25 mg, 0.25 mg, IntraVENous, q4h PRN, 0.25 mg at 12/13/231 OR HYDROmorphone (Dilaudid) injection 0.5 mg, 0.5 mg, IntraVENous, q4h PRN, Ricky Abel MD insulin glargine (Lantus) injection 10 Units, 10 Units, SubCUTAneous, BID, Ricky Abel MD Insulin Lispro (Humalog) injection 0-18 Units, 0-18 Units, SubCUTAneous, TID WC, 3 Units at 12/19/23 1435 AND Insulin Lispro (Humalog) injection 0-18 Units, 0-18 Units, SubCUTAneous, Nightly, Linda Bueno MD, 6 Units at 12/17/23 2044 ipratropium-albuterol (Duo-Neb) 0.5-2.5 mg/3 mL nebulizer solution 3 mL, 3 mL, Nebulization, BID PRN, Charlotte Braswell MD labetalol (Normodyne,Trandate) injection 10 mg, 10 mg, IntraVENous, q4h PRN, Linda Bueno MD lactated ringers bolus 500 mL, 500 mL, IntraVENous, Once, Charlotte Damon, DYE MAKER - PROGRAM DEVELOPMENT MANAGER, Last Rate: 250 mL/hr at 12/19/23 1607, 500 mL at 12/19/23 1607 Lidocaine 4 % patch 1 patch, 1 patch, TransDERmal, Daily, Birgit Ramsey MD, 1 patch at 12/19/23 0818 magnesium oxide (Mag-Ox) tablet 400 mg, 400 mg, Oral, BID, Birgit Ramsey MD, 400 mg at 12/19/23 0818 melatonin tablet 5 mg, 5 mg, Oral, Nightly, Lucille Soto MD, 5 mg at 12/18/23 2020 naloxone (Narcan) injection 0.4 mg, 0.4 mg, IntraVENous, PRN, Lucille Soto MD ondansetron ODT (Zofran-ODT) disintegrating tablet 4 mg, 4 mg, Oral, q8h PRN OR ondansetron (Zofran) injection 4 mg, 4 mg, IntraVENous, q6h PRN, Lucille Soto MD oxyCODONE (Roxicodone) immediate release tablet 5 mg, 5 mg, Oral, q6h PRN, 5 mg at 12/18/23 1504 OR oxyCODONE (Roxicodone) immediate release tablet 10 mg, 10 mg, Oral, q6h PRN, Lucille Soto MD, 10 mg at 12/19/23 1117 polyethylene glycol (PEG) 3350 (Miralax) packet 17 g, 17 g, Oral, Daily PRN, Lucille Soto MD, 17 g at 12/16/23 0954 polyethylene glycol (PEG) 3350 (Miralax) packet 17 g, 17 g, Oral, Daily, Jess Roca MD, 17 g at 12/19/23 0818 pravastatin (Pravachol) tablet 80 mg, 80 mg, Oral, Daily, Lucille Soto MD, 80 mg at 12/19/23 0818 sennosides (Senokot) tablet 8.6 mg, 1 tablet, Oral, Nightly, Birgit Ramsey MD, 8.6 mg at 12/18/232019 sodium chloride 3 % hypertonic nebulizer solution 4 mL, 4 mL, Nebulization, PRN, Evan Richardson MD stomahesive in petrolatum (ET Mix), , Topical, q8h, Rhianna Engel DYE MAKER - PROGRAM DEVELOPMENT MANAGER, Given at 12/19/23 1247 stomahesive in petrolatum (ET Mix), , Topical, PRN, Rhianna Engel DYE MAKER - PROGRAM DEVELOPMENT MANAGER traZODone (Desyrel) tablet 50 mg, 50 mg, Oral, Nightly PRN, Linda Bueno MD, 50 mg at 12/15/232204 venlafaxine XR (Effexor XR) 24 hr capsule 150 mg, 150 mg, Oral, Daily with breakfast, Birgit Ramsey MD, 150 mg at 12/19/23820 venlafaxine XR (Effexor XR) 24 hr capsule 75 mg, 75 mg, Oral, Nightly, Birgit Ramsey MD, 75 mg at 12/18/232020 Physical Exam Constitutional: No acute distress, well-nourished, mildly disheveled Psych: Mood and affect Appropriate. Good eye contact. Cardiovascular: Regular rate and rhythm, no murmur, no BLE edema Pulmonary/Chest: Diminished to auscultation bilaterally, normal respiratory effort, no coughing noted. Chest tube still in place. Abdominal: Soft, not distended, no tenderness to palpation, BS present, Neurological: alert, attentive, speech is clear but vague , follows commands, no tremor Labs and Imaging: Recent Results (from the past 24 hour(s)) POCT glucose meter Collection Time: 12/18/23 5:05 PM Result Value Ref Range Glucose 223 (H) 70 - 100 mg/dL POCT glucose meter Collection Time: 12/18/23 8:12 PM Result Value Ref Range Glucose 98 70 - 100 mg/dL CBC Collection Time: 12/19/23 2:11 AM Result Value Ref Range Auto WBC 11.0 (H) 3.6 - 10.7 10*3/uL RBC 3.31 (L) 3.80 - 5.20 10*6/uL Hemoglobin 9.7 (L) 11.7 - 16.0 g/dL Hematocrit 29.8 (L) 35.0 - 47.0 % MCV 90.0 77.0 - 99.0 fL MCH 29.3 26.0 - 34.0 pg MCHC 32.6 30.5 - 36.0 % RDW 13.9 11.5 - 15.0 % Platelets 321 140 - 440 10*3/uL MPV 9.3 9.0 - 12.7 fL Basic metabolic panel Collection Time: 12/19/23 2:11 AM Result Value Ref Range SODIUM 132 (L) 135 - 145 mmol/L POTASSIUM 4.3 3.5 - 5.1 mmol/L CHLORIDE 98 98 - 107 mmol/L CARBON DIOXIDE 32 (H) 22 - 30 mmol/L UREA NITROGEN 19 (H) 7 - 17 mg/dL CREATININE 0.70 0.52 - 1.04 mg/dL GLUCOSE 88 70 - 100 mg/dL CALCIUM 9.3 8.4 - 10.4 mg/dL ANION GAP 2 (L) 3 - 13 mmol/L eGFR 89.8 >60.0 mL/min/1.73m*2 POCT glucose meter Collection Time: 12/19/23 8:56 AM Result Value Ref Range Glucose 109 (H) 70 - 100 mg/dL POCT glucose meter Collection Time: 12/19/23 11:56 AM Result Value Ref Range Glucose 238 (H) 70 - 100 mg/dL POCT glucose meter Collection Time: 12/19/23 2:11 PM Result Value Ref Range Glucose 171 (H) 70 - 100 mg/dL No results found for: "TSH" Lab Results Component Value Date [id number] 623 12/13/2023 Lab Results Component Value Date VITD25 25 (L) 12/14/2023 Reviewed: active problem lists, medications, and labs Images from the original note were not included. PHYSICAL THERAPY [facility] Treatment Note Name/MRN: Beverly Agee ([id number]) Date of : 1945 Age: 78 y.o. Room/Bed: -6113/-6113 A Discharge Recommendation: IP Rehab Equipment Needed: No Prior Level of Function ADL Assistance: Independent Ambulation Assistance: Independent Transfer Assistance: Independent Assessment Patient is progressing with mobility and was able to increase ambulation distance today to 6 feet x 2 with min assist. She continues to have difficulty with mobility due to weakness and impaired balance and would benefit from continued PT intervention. Patient with good activity tolerance and would be able tolerate 15 hours of therapy per week. Recommend IP rehab at discharge. Subjective Patient in bed. She is agreeable to PT. Pain: 0-10 pain scale: 2-3/10 Location: chest tube site Medical Precautions: No active isolations Proper PPE donned/doffed in accordance with facility standards. Fall Risk: Loyd Fall Risk Score: 70 (High Risk) Precautions/Restrictions: Lines/Drains/Airways: PIV, tele, chest tube to water seal, purewick Overall Cognitive Status: WFL Overall Orientation Status: Oriented x4 Family/Caregiver Present: none Objective Ambulation Ambulation 1 Assistive device(s) used: front wheeled walker Assist level: Min Assist Distance (ft): 6 x 2 Quality of gait: slow savanna, instability through all phases, decreased bilateral step length, wide base of support, flexed posture, weak quads on R - difficulty stabilizing in extention Transfers/Mobility Sit to stand: Min Assist, Mod Assist, 3 reps, mod assist from bed, min assist from chair Stand to sit: Min Assist Device(s) used: front wheeled walker Exercises Exercises Quad Sets: x 10 R Gluteal Sets: x 10 Hip Flexion: seated x 10 bilaterally Knee Long Arc Quad: x 10 bilaterally with assist for TKE on R Knee Short Arc Quad: x 8 R with assist for TKE Other exercises Other exercises?: No Bed Mobility Supine to sit: Min Assist Scooting: Min Assist, seated scoot Plan Continue acute PT per plan of care. Safety/Education Safety Safety Devices in place: call light within reach, left in chair, chair alarm in place, and gait belt Restraints: No Education Education Given To: patient Education Provided: Gait Training, Home Exercise Program, and Transfer Training Education Method: Verbal and Demonstration Barriers to Learning: None Education Outcome: Verbalized Understanding Outcome Measures AM-PAC AM-PAC Inpatient Mobility Raw Score (No Stairs) : 13 JH-HLM JH-HLM Score: Walked 10 steps or more (i.e. walked to restroom) Goals Patient Stated Goal: to feel better Encounter Problems Encounter Problems (Active) Balance Patient will maintain dynamic standing balance for 5 minutes with supervision in order to demonstrate decreased risk of falling. (Progressing) Start: 12/18/23 Expected End: 01/15/24 Mobility Patient will ambulate 75 feet with supervision and least restrictive device in order to improve safety and independence with mobility. (Progressing) Start: 12/18/23 Expected End: 01/15/24 Patient will ascend and descend 3 stairs with least restrictive device and supervision in order to safely negotiate home. (Not Addressed) Start: 12/18/23 Expected End: 01/15/24 Transfers Patient will perform bed mobility with supervision in order to improve independence and prepare for out of bed mobility. (Progressing) Start: 12/18/23 Expected End: 01/15/24 Patient will complete functional transfer with least restrictive device with modified independence in order to prepare for ambulation. (Progressing) Start: 12/18/23 Expected End: 01/15/24 Therapy Time Individual Co-treatment Time In 1424 Time Out 1505 Minutes 41 Timed Code Treatment Minutes: 41 Minutes (GT, FA, TP) PPE worn in accordance with [facility] guidelines. Patient s Physical Therapy Plan of Care supervision is transferred to [facility] Rehab Department Physical Therapist. Dunia Lee PT [facility] Wound Care Progress Note Beverly Agee AGE: 78 y.o. GENDER: female : 1945 Subjective: HISTORY of PRESENT ILLNESS HPI Beverly Agee is a 78 y.o. female who presents for a wound follow up. HPI: 78 y.o. female status post fall 4 days ago. The incident happened on 12/10/23 at home. When the event happened the patient fell and hit a table. She was seen by her PCP on 12/10 who ordered CXR, which showed rib fracture. She presented to [place] ED with SOB, hypoxic, and tachycardic. CT showed large R effusion likely hemothorax. Wound Care consulted for pressure injury. Patient resting in bed at time of visit. Treatment applied at time of visit. RN at bedside. 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 Depression History of blood transfusion Hyperlipidemia Hypertension Type II or unspecified type diabetes mellitus without mention of complication, not stated as uncontrolled (HCC) PAST SURGICAL HISTORY Past Surgical History: Procedure Laterality Date BREAST LUMPECTOMY Left BREAST LUMPECTOMY Left 2012 s/p radiation as well CATARACT EXTRACTION W/ INTRAOCULAR LENS IMPLANT Bilateral 10/2015, 12/2015 SECTION (HISTORICAL) CHOLECYSTECTOMY DILATION AND CURETTAGE OF UTERUS FEMUR FRACTURE SURGERY Right 11/30/2019 HIP ARTHROPLASTY Right 01/21/2020 conversion JOINT REPLACEMENT Bilateral ROTATOR CUFF REPAIR Right TOTAL ABDOMINAL HYSTERECTOMY FAMILY HISTORY Family History Problem Relation Name Age of Onset Asthma Son Thyroid disease Brother Cancer Mother Cancer Father Thyroid disease Mother Cancer Brother Asthma Son Asthma Son SOCIAL HISTORY Social History Tobacco Use Smoking status: Every Day Packs/day: .75 Types: Cigarettes Smokeless tobacco: Never Substance Use Topics Alcohol use: Yes Alcohol/week: 0.0 standard drinks of alcohol Drug use: No ALLERGIES Allergies Allergen Reactions Aspirin Hives and Swelling Blotchy, GI, hives Penicillins blotchiness Sulfa Antibiotics Hives and Swelling blotchy MEDICATIONS No current facility-administered medications on file prior to encounter. Current Outpatient Medications on File Prior to Encounter Medication Sig Dispense Refill ascorbic acid (Vitamin C) 1000 MG tablet Take 1,000 mg by mouth daily. cholecalciferol (Vitamin D-3) 25 MCG (1000 UT) capsule Take 1,000 Units by mouth in the morning. cyanocobalamin (Vitamin B-12) 1000 MCG tablet Take 500 mcg by mouth in the morning. fenofibrate (Tricor) 145 MG tablet Take 1 tablet (145 mg) by mouth in the morning. 30 tablet 5 folic acid (Folvite) 400 MCG tablet Take by mouth daily. insulin aspart (NovoLOG FLEXPEN) 100 UNIT/ML pen Inject 10 Units under the skin in the morning and 10 Units at noon and 10 Units in the evening. Inject with meals. (Patient taking differently: Inject under the skin 3 times daily (with meals). Patient unsure of mealtime doses) 9 mL 1 insulin glargine (Basaglar KwikPen) 100 UNIT/ML pen Inject 30 Units under the skin 2 times daily. (Patient taking differently: Inject 30 Units under the skin 2 times daily. Patient unsure of dose) 3 mL 1 losartan (Cozaar) 50 MG tablet Take 1 tablet (50 mg) by mouth in the morning. Take 50 mg by mouth in the morning.. (Patient taking differently: Take 25 mg by mouth daily. Take 50 mg by mouth in the morning.) 90 tablet 1 magnesium oxide (Mag-Ox) 400 MG tablet Take 1 tablet (400 mg) by mouth in the morning and 1 tablet (400 mg) before bedtime. 180 tablet 1 pravastatin (Pravachol) 80 MG tablet Take 1 tablet (80 mg) by mouth in the morning. 90 tablet 1 rivaroxaban (Xarelto) 20 MG tablet TAKE 1 TABLET BY MOUTH EVERY MORNING WITH BREAKFAST 90 tablet 1 traZODone (Desyrel) 50 MG tablet Take 50 mg by mouth Nightly as needed for sleep. Patient states she takes most nights venlafaxine XR (Effexor XR) 150 MG 24 hr capsule TAKE 1 CAPSULE BY MOUTH TWICE DAILY 180 capsule 1 [DISCONTINUED] insulin aspart (NovoLOG) 100 UNIT/ML pen Inject 10 Int'l Units under the skin. [DISCONTINUED] mirtazapine (Remeron) 30 MG tablet Take 1 tablet (30 mg) by mouth Nightly. 90 tablet 1 REVIEW OF SYSTEMS Pertinent items are noted in HPI. Objective: BP 119/68 Pulse 63 Temp 36.4 C (97.5 F) (Temporal) Resp 20 Ht 1.6 m (5' 3") Wt 72.6 kg (160 lb) SpO2 99% BMI 28.34 kg/m PHYSICAL EXAM General appearance: in no apparent distress, well developed and well nourished, non-toxic, in no respiratory distress and acyanotic, and alert Skin: warm and dry Pulmonary: Normal effort, no respiratory distress, no cyanosis Sacrum: open wound noted. 0.5x0.5xUTDcm. Slough noted to wound bed. Scant sreosang drainage present. Ilsa-wound intact and fragile. Stable LABS CBC: Lab Results Component Value Date WBC 11.0 (H) 12/19/2023 HGB 9.7 (L) 12/19/2023 HCT 29.8 (L) 12/19/2023 MCV 90.0 12/19/2023 PLT 321 12/19/2023 BMP: Lab Results Component Value Date NA 132 (L) 12/19/2023 K 4.3 12/19/2023 CL 98 12/19/2023 CO2 32 (H) 12/19/2023 BUN 19 (H) 12/19/2023 CREATININE 0.70 12/19/2023 PT/INR: No results found for: "PROTIME", INR Prealbumin: No results found for: PREALBUMIN Albumin:No components found for: LABALBU Sed Rate:No results found for: SEDRATE Micro: No components found for: BC Assessment/Plan: Sacrum: Unstageable pressure injury - Present on admission - Cleanse with NS. Apply ET mix. Leave ESTELITA. Apply TID and PRN. - Q2 hour turn and reposition - incontinent check q2hrs Nutritional support Wound Care to follow Recommend to follow up at [facility] wound care center after hospital discharge. Any questions or concerns please secure chat "ACH wound/ostomy". Thank you for the consult! I personally obtained the virk and critical portions of the history and physical exam. I reviewed the labs, imaging studies, and electronic medical record. I reviewed the chart documentation and discussed the patient with treatment team members. I have edited the note to reflect my clinical findings and my assessment and plan. Please note, the time of this note does not reflect the time I saw this patient today, but the time of this documentaton. Portions of this note including HPI, ROS, impression/plan, and examination may have been copied forward from admission to today as to provide important historical information essential in contributing to medical decision making. Documentation has been reviewed and edited as necessary to support clinical decision making for today's visit and to reflect my own independent evaluation of this patient. Decision making for today's visit and to reflect my own independent evaluation of this patient. Images from the original note were not included. OCCUPATIONAL THERAPY [facility] Treatment Note Name/MRN: Beevrly Agee ([id number]) Date of : 1945 Age: 78 y.o. Room/Bed: -6113/-6113 A Discharge Recommendation: IP Rehab Prior Level of Function ADL Assistance: Independent Ambulation Assistance: Independent Device(s) used: front wheeled walker Transfer Assistance: Independent Assessment Motivated, demos good tolerance for therapy. Would benefit from ongoing therapies at discharge, intensive rehab level, to promote return to baseline function. Subjective Pt in bed, agrees to OT as requested for insurance precert. C/o R sided discomfort, does not quantify. Medical Precautions: No active isolations Proper PPE donned/doffed in accordance with facility standards. Fall Risk: Loyd Fall Risk Score: 70 (High Risk) Family/Caregiver Present: none Objective ADLs Grooming: Supervision, seated EOB UE Bathing: Supervision LE Bathing: Max Assist UE Dressing: Min Assist LE Dressing: Max Assist Toileting: Max Assist, x2 Person Assist, assist for balance as well as hygiene Bed Mobility Supine to sit: Mod Assist, for elevation of trunk Sit to supine: Mod Assist Scooting: Max Assist, x2 Person Assist, scoot to HOB in supine Transfers/Mobility Sit to stand: Mod Assist, x2 Person Assist, from EOB Stand to sit: Min Assist, x2 Person Assist Stand step: Mod Assist, x2 Person Assist, no device Bedside commode: Mod Assist, x2 Person Assist Sitting balance: Supervision Standing balance: static stand at FWW, initially mod assist of 2, progresses to min assist of 2. Pt fearful with standing (history of falls), respond well to encouragment. Exercise Comment: IS x 8 reps , 750-100ml if uses proper technique. Encouraged use of same 10x/hour while awake. Pt appears with good understanding. Plan Continue acute OT per plan of care. Safety/Education Safety Safety Devices in place: left in bed and RNMD present Restraints: N/A AM-PAC AM-PAC Inpatient Daily Activity Raw Score: 17 ADL Inpatient CMS G-Code Modifier: CK Goals Patient Stated Goal: na Encounter Problems Encounter Problems (Active) Dressings Lower Extremities Patient will dress lower body Estephania (Progressing) Start: 12/18/23 Expected End: 01/15/24 Grooming Patient will complete daily grooming tasks Estephania at sink (Progressing) Start: 12/18/23 Expected End: 01/15/24 Toileting Patient will complete toileting tasks Estephania (Progressing) Start: 12/18/23 Expected End: 01/15/24 Transfers Patient will complete functional toilet transfer Estephania (Progressing) Start: 12/18/23 Expected End: 01/15/24 Therapy Time Individual Co-treatment Time In 1005 Time Out 1106 Minutes 61 Timed Code Treatment Minutes: 54 Minutes (Funct--2; Self--2) Variance: 7 (pt on BSC) GWENDOLYN Purcell Images from the original note were not included. Daily SICU Progress Note Nurse Practitioner 12/19/2023 4:09 PM Admit Date: 12/12/2023 HPI: 78 y.o. female status post fall 4 days ago. The incident happened on 12/10/23 at home. When the event happened the patient fell and hit a table. She was seen by her PCP on 12/10 who ordered CXR, which showed rib fracture. She presented to [place] ED with SOB, hypoxic, and tachycardic. CT showed large R effusion likely hemothorax. She was directly admitted to T2 ICU. The patient reports mild right chest pain and SOB. No LH or dizziness. Has been having frequent falls recently. She did not lose consciousness and recalls the fall, it was due to weakness in her legs. Doesn't think she hit her head. No other preceding symptoms. Last took Xarelto 1 day ago. Patient notes that she lives at home by herself. PROCEDURES: 12/12 - R CT placement 12/16 - R VATS, cry, ribs 9,10 rib plating CHIEF COMPLAINT: Right rib pain PREVIOUS 24 HOUR EVENTS: - Transferred to H6 tele nursing floor from ICU - Lantus held last night Consults: IP CONSULT TO ANESTHESIOLOGY IP CONSULT TO PALLIATIVE CARE IP CONSULT TO GERIATRICS IP WOUND CARE NURSE CONSULT TO EVAL MEDICATIONS: Current Facility-Administered Medications: acetaminophen (Tylenol) tablet 1,000 mg, 1,000 mg, Oral, q8h, Lucille Soto MD, 1,000 mg at 12/19/23 1246 cyanocobalamin (Vitamin B-12) tablet 500 mcg, 500 mcg, Oral, Daily, Birgit Ramsey MD, 500 mcg at 12/19/23 0818 dextrose 5 % infusion, 100 mL/hr, IntraVENous, PRN, Evan Richardson MD dextrose 50 % solution 12.5 g, 12.5 g, IntraVENous, PRN, Lucille Soto MD enoxaparin (Lovenox) syringe 40 mg, 40 mg, SubCUTAneous, q12h, Ricky Abel MD ergocalciferol (Vitamin D2) capsule 1.25 mg, 1.25 mg, Oral, Weekly, Cass Howe, RADHA - PROGRAM DEVELOPMENT MANAGER, 1.25 mg at 12/15/23 0954 fenofibrate (Tricor) tablet 54 mg, 54 mg, Oral, Daily, Ricky Abel MD, 54 mg at 12/19/23 1154 folic acid (Folvite) tablet 1 mg, 1 mg, Oral, Daily, Birgit Ramsey MD, 1 mg at 12/19/23 0818 glucagon (human recombinant) injection 1 mg, 1 mg, IntraMUSCular, PRN, Evan Richardson MD glucose oral gel 15 g, 15 g, Oral, PRN, Lucille Soto MD glucose oral gel 15 g, 15 g, Oral, PRN, Evan Richardson MD, 15 g at 12/16/23 0217 hydrALAZINE (Apresoline) injection 10 mg, 10 mg, IntraVENous, q4h PRN, Linda Bueno MD [DISCONTINUED] HYDROmorphone (Dilaudid) injection 0.25 mg, 0.25 mg, IntraVENous, q4h PRN, 0.25 mg at 12/13/232100 OR HYDROmorphone (Dilaudid) injection 0.5 mg, 0.5 mg, IntraVENous, q4h PRN, Ricky Abel MD insulin glargine (Lantus) injection 10 Units, 10 Units, SubCUTAneous, BID, Ricky Abel MD Insulin Lispro (Humalog) injection 0-18 Units, 0-18 Units, SubCUTAneous, TID WC, 3 Units at 12/19/23 1435 AND Insulin Lispro (Humalog) injection 0-18 Units, 0-18 Units, SubCUTAneous, Nightly, Linda Bueno MD, 6 Units at 12/17/23 2044 ipratropium-albuterol (Duo-Neb) 0.5-2.5 mg/3 mL nebulizer solution 3 mL, 3 mL, Nebulization, BID PRN, Charlotte Braswell MD labetalol (Normodyne,Trandate) injection 10 mg, 10 mg, IntraVENous, q4h PRN, Linda Bueno MD lactated ringers bolus 500 mL, 500 mL, IntraVENous, Once, Charlotte Damon APRN - PROGRAM DEVELOPMENT MANAGER, Last Rate: 250 mL/hr at 12/19/23 1607, 500 mL at 12/19/23 1607 Lidocaine 4 % patch 1 patch, 1 patch, TransDERmal, Daily, Birgit Ramsey MD, 1 patch at 12/19/23 0818 magnesium oxide (Mag-Ox) tablet 400 mg, 400 mg, Oral, BID, Birgit Ramsey MD, 400 mg at 12/19/23 0818 melatonin tablet 5 mg, 5 mg, Oral, Nightly, Lucille Soto MD, 5 mg at 12/18/23 2020 naloxone (Narcan) injection 0.4 mg, 0.4 mg, IntraVENous, PRN, Lucille Soto MD ondansetron ODT (Zofran-ODT) disintegrating tablet 4 mg, 4 mg, Oral, q8h PRN OR ondansetron (Zofran) injection 4 mg, 4 mg, IntraVENous, q6h PRN, Lucille oSto MD oxyCODONE (Roxicodone) immediate release tablet 5 mg, 5 mg, Oral, q6h PRN, 5 mg at 12/18/23 1504 OR oxyCODONE (Roxicodone) immediate release tablet 10 mg, 10 mg, Oral, q6h PRN, Lucille Soto MD, 10 mg at 12/19/23 1117 polyethylene glycol (PEG) 3350 (Miralax) packet 17 g, 17 g, Oral, Daily PRN, Lucille Soto MD, 17 g at 12/16/23 0954 polyethylene glycol (PEG) 3350 (Miralax) packet 17 g, 17 g, Oral, Daily, Jess Roca MD, 17 g at 12/19/23 0818 pravastatin (Pravachol) tablet 80 mg, 80 mg, Oral, Daily, Lucille Soto MD, 80 mg at 12/19/23 0818 sennosides (Senokot) tablet 8.6 mg, 1 tablet, Oral, Nightly, Birgit Ramsey MD, 8.6 mg at 12/18/232019 sodium chloride 3 % hypertonic nebulizer solution 4 mL, 4 mL, Nebulization, PRN, Evan Richardson MD stomahesive in petrolatum (ET Mix), , Topical, q8h, Rhianna Engel APRN - DONY, Given at 12/19/23 1247 stomahesive in petrolatum (ET Mix), , Topical, PRN, Rhianna Engel APRN - DONY traZODone (Desyrel) tablet 50 mg, 50 mg, Oral, Nightly PRN, Linda Bueno MD, 50 mg at 12/15/23 2205 venlafaxine XR (Effexor XR) 24 hr capsule 150 mg, 150 mg, Oral, Daily with breakfast, Birgit Ramsey MD, 150 mg at 12/19/23 0821 venlafaxine XR (Effexor XR) 24 hr capsule 75 mg, 75 mg, Oral, Nightly, Birgit Ramsey MD, 75 mg at 12/18/232020 ARE THERE PERTINENT UPDATES TO PAST,FAMILY, OR SOCIAL HISTORY?: No Subjective: Overall doing well. On 2L NC overnight. Endorses pain but states it is well controlled. Review of Systems Constitutional: Negative for chills and fever. HENT: Negative for congestion and drooling. Eyes: Negative for redness and visual disturbance. Respiratory: Negative for cough and choking. Cardiovascular: Negative for chest pain and leg swelling. Gastrointestinal: Negative for nausea and vomiting. Skin: Negative for rash and wound. Neurological: Negative for dizziness and light-headedness. Psychiatric/Behavioral: Negative for agitation and confusion. Objective: Patient Vitals for the past 24 hrs: BP Temp Temp src Pulse Resp SpO2 12/19/23 1544 95/53 (!) 35.9 C (96.6 F) -- 94 18 94 % 12/19/23 0842 119/68 36.4 C (97.5 F) Temporal 63 20 99 % 12/19/23 0019 122/54 36.3 C (97.4 F) Temporal 68 18 99 % 12/18/232012 (!) 116/47 36.3 C (97.4 F) Temporal 64 16 94 % 12/18/232003 108/54 36.4 C (97.6 F) Temporal 70 18 100 % 12/18/23 1858 103/52 36.5 C (97.7 F) Temporal 71 20 95 % Intake/Output Summary (Last 24 hours) at 12/19/2023 1609 Last data filed at 12/19/2023 0622 Gross per 24 hour Intake -- Output 520 ml Net -520 ml No intake/output data recorded. Right CT: 220 ,ml out Diet: Regular 4 carb control BM: 12/18 PHYSICAL: Physical Exam Vitals and nursing note reviewed. Constitutional: General: She is not in acute distress. Appearance: Normal appearance. She is normal weight. HENT: Head: Normocephalic and atraumatic. Right Ear: External ear normal. Left Ear: External ear normal. Nose: Nose normal. Mouth/Throat: Mouth: Mucous membranes are moist. Eyes: Extraocular Movements: Extraocular movements intact. Pupils: Pupils are equal, round, and reactive to light. Cardiovascular: Rate and Rhythm: Normal rate and regular rhythm. Pulses: Normal pulses. Pulmonary: Effort: Pulmonary effort is normal. Breath sounds: Normal breath sounds. No wheezing. Comments: Right CT in place, serous drainage to dressing. CT to atrium with serosang drainage, (-) air leak, right chest wall tenderness, (-) crepitus Chest: Chest wall: Tenderness present. Abdominal: General: Bowel sounds are normal. Palpations: Abdomen is soft. Tenderness: There is no abdominal tenderness. Musculoskeletal: General: Tenderness present. Normal range of motion. Cervical back: Normal range of motion. Skin: General: Skin is warm and dry. Capillary Refill: Capillary refill takes less than 2 seconds. Neurological: Mental Status: She is alert and oriented to person, place, and time. Mental status is at baseline. Psychiatric: Behavior: Behavior normal. Data CBC with Differential: Lab Results Component Value Date WBC 11.0 (H) 12/19/2023 RBC 3.31 (L) 12/19/2023 HGB 9.7 (L) 12/19/2023 HCT 29.8 (L) 12/19/2023 PLT 321 12/19/2023 CMP: Lab Results Component Value Date NA 132 (L) 12/19/2023 K 4.3 12/19/2023 CL 98 12/19/2023 CO2 32 (H) 12/19/2023 BUN 19 (H) 12/19/2023 CREATININE 0.70 12/19/2023 GLUCOSE 88 12/19/2023 CALCIUM 9.3 12/19/2023 BMP: Hepatic Function Panel:Ionized Calcium: No components found for: "IONCA" Magnesium: No results found for: MG Phosphorus: No results found for: PHOS PT/INR: No results found for: "PROTIME", INR PTT: No results found for: "APTT"[APTT Last 3 Troponin: No results found for: "TROPONINI" Radiology: ECG 12 lead Result Date: 12/14/2023 Sinus rhythm Atrial premature complex Left anterior fascicular block Electronically Signed On 12-14-2023 08:24:18 EDT by James Birmingham POCT glucose meter Result Date: 12/13/2023 Performed by: [facility], [address] [place] [id number] CLIA ID: [id number] POCT glucose meter Result Date: 12/13/2023 Performed by: [employer] [facility], [address] [place] [id number] CLIA ID: [id number] XR chest 1 view Result Date: 12/13/2023 Patient Name: BEVERLY AGEE : 1945 Exam Date/Time: 12/13/2023 04:41 Procedure: XR CHEST 1 VIEW Ordering Provider: BRASWELL LAURA Reason For Exam: s/p right chest tube insertion for hemopneumothorax CLINICAL INFORMATION: Shortness of breath. Hemopneumothorax. Right-sided chest tube now in place. Portable view of the chest at 0435 hours is provided and compared to a previous CT dated December 12, 2023. FINDINGS: A chest tube is now in place on the right. The sizable effusion is been evacuated. There is no significant pneumothorax. Emphysematous changes are noted diffusely. 1. New right-sided chest tube. 2. No pneumothorax. Report Dictated on Electronically Signed By: Chico Noguera MD Electronically Signed Date/Time: 12/13/2023 4:[address] chest abdomen pelvis without contrast Result Date: 12/12/2023 [facility] 1945 [id number] Exam Date/Time: 12/12/2023 23:06 Procedure: CT CHEST ABDOMEN PELVIS WO CONTRAST Ordering Provider: GOLDMAN AMY Reason For Exam: Fall INDICATION: 78-year-old; fall; rib pain (same day imaging demonstrated right rib#9 fracture) and difficulty breathing after a fall yesterday; fell on right side Scan Parameters: Multiple axial 1mm images were obtained of the chest and 3mm images of the abdomen and pelvis. Coronal and sagittal reconstructions were reviewed as well. Dose reduction was employed with automated exposure control. Additional reconstructed MIP images provided with 3-D postprocessing. A total of 11 image sets provided for review. CONTRAST: No IV and no oral contrast COMPARISON: Chest and right RIBS 12/11/2023; CT chest 08/01/2021 FINDINGS: CHEST: A very small right pneumothorax is present anteriorly and medially. There is a moderate to large right pleural effusion with associated blood products with compressive atelectasis and/or infiltrate. Pulmonary vascular congestion is present with septal thickening. There are multiple posterior right rib fractures including 8,9,10. Ribs #9 and 10 are displaced with surrounding locules of air. The bones are osteopenic. Old LEFT rib fractures #5,6,10,11. Ribs #6 and 10 are not united. Multilevel endplate degenerative changes are present. There is a soft tissue hematoma posterior to the right rib fractures with associated air locules within the muscle. This measures in greatest axial dimension 1.9 x 4.1 cm. The thyroid gland contour is normal. The airway is patent the tracheobronchial tree calcifications. The esophagus is decompressed with a small hiatal hernia. Dense atherosclerotic calcifications are present along the aorta and coronary arteries. There is no sizable pericardial effusion. The heart is not enlarged. There is no mediastinal, hilar, or axillary adenopathy. There is limited evaluation the breast tissue, correlate with mammography. 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 Superior endplate compression of L5 with mild height loss, age indeterminate. The gallbladder is surgically absent with clips present. The liver, pancreas, and spleen are within normal limits. A right adrenal gland with a rich adenoma measures 13 mm. There is thickening of the medial limb of the left adrenal gland versus small adenoma. There is no hydronephrosis. A left renal 14 mm cyst is present. There is thinning of the renal cortex of the right and left. The bladder contour is normal. The uterus is surgically absent. Multiple colonic diverticuli are present. Fecal retention is present. The appendix is normal. The aorta is tortuous with atherosclerotic dense calcifications. CHEST: 1. Acute RIGHT rib fractures # 8,9,10. Ribs #9 and 10 are displaced with surrounding locules of air and an associated hematoma in the posterior musculature measuring 4.1 cm. Old left rib fractures. 2. Very small RIGHT anterior pneumothorax. 3. Moderate to large RIGHT pleural fluid with blood products with associated atelectasis. 4. Atherosclerotic disease. ABDOMEN/PELVIS: 1. Superior endplate compression at L5, age indeterminate. Osteopenia. Right total hip arthroplasty. 2. Other: Cholecystectomy. Bilateral adrenal gland adenomas. Left renal cyst. Perinephric stranding. Colonic diverticulosis. Atherosclerotic disease. 3. Additional findings, as above. CRITICAL TEST COMMUNICATION: I called the emergency department around 11:26pm and spoke with SHAKEEL Saxena. Report Dictated on Electronically Signed By: Manisha Conroy MD Electronically Signed Date/Time: 12/12/2023 11:28 PM EDT ECG 12 lead Sinus tachycardia Abnormal R-wave progression, late transition Inferior infarct, old no stemi Electronically Signed On 12-12-2023 23:13:52 EDT by Marbin Flores Patient Active Problem List Diagnosis Mood disorder ([facility]) Closed fracture of one rib of left side Hemothorax Anticoagulated H/O: CVA (cerebrovascular accident) Tobacco dependence syndrome Hip fracture requiring operative repair, right, closed, initial encounter ([facility]) Memory impairment Examination of participant in clinical trial Malignant neoplasm of upper-outer quadrant of female breast (HCC) Fall Leukocytosis Closed fracture of hip (HCC) Unsteady gait Type 2 diabetes mellitus with hyperglycemia, with long-term current use of insulin (HCC) Acute cystitis E-coli UTI Obesity History of radial keratotomy Psychophysiological insomnia Hypomagnesemia Essential hypertension Mixed anxiety depressive disorder Hyperlipidemia Atrial fibrillation (HCC) Noncompliance with treatment regimen Weakness UTI (urinary tract infection) Hyperglycemia Closed fracture of multiple ribs of right side, initial encounter ASSESSMENT: 78 y.o. female s/p fall on Xarelto with right 8,9,10 rib fractures, small right anterior pneumothorax, large right hemothorax s/p VATS 12/16 with cryo and external rib plating R ribs 9, 10 PLAN: Neuro/Spine: - Multimodal pain control: Ajay tylenol, PRN oxy, dilaudid, PO robaxin, lidocaine patches - Palliative care, geriatrics consult Hx of Depression - Cont home Effexor - Follow Geriatrics note for updated medications - Restart vitamins and mag oxide HEENT: - No acute issues Cardiovascular: Hx of Afib - Hold Xarelto plan to start when CT discontiued - Telemetry Hypotension in the setting of acute rib fractures and hemothorax (Resolved) - MAP goal > 60 - Cont home pravastatin - Positive Orthostatic BP measurement 12/13 HTN - Hold losartan (Possibly restart tomorrow) HLD - Home Statin -restart home fenofibrate Pulmonary: R hemothorax s/p R VATS with cryo and rib plating R ribs 9,10 - Chest tube water seal today (-) air leak - continue to monitor output - Change CT dressing as needed for drainage - EZ pap, IS, acapella - Ajay duoneb - Daily CXR FEN/GI: - Regular diet, carb controlled, Ensure - Consider D51/2NS at 50ml/hr if continues with poor oral intake- will monitor - Bowel regimen: Miralax daily prn, Senna nightly : - Monitor UOP Heme: - Daily CBC - Hold home Xarelto [address] discontinued ID: Chest tube placement - S/p ancef 24hr Endo: Hx of DM, BG 98-223 yesterday, evning lantus held 2/2 glucose of 98 - Home lantus 15 BID decrease to Lantus 10 units BID due to poor appetite - continue SSI - POC glucose -HA1c 7.1 Lines/Devices: - PIV - R CT to water seal Prophylaxis: DVT: SCD only, Lovenox plan to restart home eliquis Has DVT PPX been started? No If no, why? Bleeding disorder GI: none indicated Pressure Ulcer: turn self Musculoskeletal: - PT/OT recs for SNF- pending approval to [facility] Medications Reconciled- Yes [x] NO [], why Disposition: Cont H6 tele care, Maintain R CT to water seal. Aggressive pulmonary hygiene, PT/OT for dispo planning, CM assisting with placement. RADHA Mary CNP Trauma Surgery/Critical Care Nutrition Assessment Type and Reason for Visit: Reassess Nutrition Recommendations/Plan: Continue Adult diet Regular; 4 carb choices (60 gm/meal) Supplement(s): Continue Vanilla Ensure HP pm snack and hs snack (provides 160 kcals, 16 grams protein, 8 oz per serving) as tolerated Please document % of po/ONS intakes in nsg flowsheets for accurate review of po trends Please obtain standing scale or zero'd out bed scale wts for more accurate review of anthropometric data and record in EMR - appreciated Pt is a meal service assist to ensure participation in room service Will continue to monitor labs, meds, po intakes and/or enteral nutrition tolerance, skin integrity, wt trends, and overall nutrition status - RD to follow weekly Malnutrition Assessment: Malnutrition Status: Insufficient data (at risk - variable po, wound, acute fx) Context: Acute Illness Findings of the 6 clinical characteristics of malnutrition: Energy Intake: 75% or less of estimated energy requirements for 7 or more days (variable po intakes) Weight Loss: No significant weight loss Body Fat Loss: Unable to assess Muscle Mass Loss: Unable to assess Fluid Accumulation: Mild Extremities Cage Operator Strength: Not Performed Nutrition Assessment: 78 y.o. female status post fall 4 days ago. The incident happened on 12/10/23 at home. When the event happened the patient fell and hit a table. She was seen by her PCP on 12/10 who ordered CXR, which showed rib fracture. She presented to [place] ED with SOB, hypoxic, and tachycardic. CT showed large R effusion likely hemothorax. She was directly admitted to T2 ICU. The patient reports mild right chest pain and SOB. No LH or dizziness. Has been having frequent falls recently. She did not lose consciousness and recalls the fall, it was due to weakness in her legs. Doesn't think she hit her head. No other preceding symptoms. Last took Xarelto 1 day ago. Patient notes that she lives at home by herself." S/p R CT placement 12/12. S/p R VATS, cry, ribs 9,10 rib plating 12/16. Thinks she's eating OK, can't recall what she had for breakfast. Admits to difficulty with her memory. PO intakes documented are fair/variable. Continues ensure BID. RD modified to assist for meal service. Estimated Daily Nutrient Needs: Energy Requirements Based On: Kcal/kg Weight Used for Energy Requirements: [place] Weight for Energy Calculation (kg): 52.2 kg Total Energy Requirements (kcals/day): 25-30 kcals/kg = 6985-3847 kcals/day Weight Used for Protein Requirements: [place] Weight in Kg Used for Protein Requirements: 52.2 kg Estimated Total Protein (g/day): 1.2-1.4g protein/kg IBW = 63-73g protein/day Estimated Daily Total Fluid (ml/day): per MD Nutrition Related Findings: Wound Type: Multiple, Pressure Injury, Unstageable, Surgical Incision (per wound care: Sacrum: Unstageable pressure injury - Present on admission; S/p R CT placement 12/12. S/p R VATS, cry, ribs 9,10 rib plating 12/16.) Isolation Status: none Food Allergies: NKFA Teeth: Dentures upper, Dentures lower Room Service: Assist Jose Martin Scale Score: 17 Net IO Since Admission: -209 mL [12/18/231823] BLE Edema: Non-pitting Bowel Sounds (All Quadrants): Active Last BM Date: 12/17/23 Nutrition History: Independent of feeding and Lives alone at home Intake/Output Summary (Last 24 hours) at 12/18/20231823 Last data filed at 12/18/2023 1712 Gross per 24 hour Intake 480 ml Output 1105 ml Net -625 ml Labs/Meds Reviewed: acetaminophen, 1,000 mg, Oral, q8h cyanocobalamin, 500 mcg, Oral, Daily enoxaparin, 30 mg, SubCUTAneous, q12h ergocalciferol, 1.25 mg, Oral, Weekly folic acid, 1 mg, Oral, Daily insulin glargine, 15 Units, SubCUTAneous, BID insulin lispro, 0-18 Units, SubCUTAneous, TID WC And insulin lispro, 0-18 Units, SubCUTAneous, Nightly Lidocaine, 1 patch, TransDERmal, Daily magnesium oxide, 400 mg, Oral, BID melatonin, 5 mg, Oral, Nightly polyethylene glycol (PEG) 3350, 17 g, Oral, Daily pravastatin, 80 mg, Oral, Daily sennosides, 1 tablet, Oral, Nightly stomahesive in petrolatum, , Topical, q8h venlafaxine XR, 150 mg, Oral, Daily with breakfast venlafaxine XR, 75 mg, Oral, Nightly BMP: Recent Labs 12/16/23 0213 12/17/23 0400 12/18/23 0359 NA 137 132* 131* K 4.0 4.0 4.4 CL 104 101 100 CO2 31* 29 29 BUN 15 11 17 CREATININE 0.60 0.56 0.72 GLUCOSE 58* 82 141* CALCIUM 9.5 9.4 9.3 CBC: Recent Labs 12/16/23 0213 12/17/23 0400 12/17/23 1716 12/18/23 0359 WBC 10.0 9.9 -- 14.1* HGB 9.4* 10.1* 11.0* 10.3* HCT 28.6* 29.5* 33.1* 30.8* MCV 88.8 88.3 -- 89.0 PLT 248 285 -- 337 Lab Results Component Value Date VITD25 25 (L) 12/14/2023 [id number] 623 12/13/2023 Lab Results Component Value Date HGBA1C 7.1 (H) 12/14/2023 HGBA1C 11.7 (A) 06/28/2022 HGBA1C 12.2 01/04/2022 Recent Labs 12/17/23 0135 12/17/23 0812 12/17/23 1528 12/17/23 1717 12/17/23 2039 12/18/23 0813 12/18/23 1248 12/18/23 1705 POCGLU 95 83 252* 252* 218* 120* 180* 223* Current Nutrition Therapies: Adult diet Regular; 4 carb choices (60 gm/meal) Current Oral Intake Average Meal Intake: 26-50%, 51-75%, 76-100%, 1-25% (variable) Average Supplements Intake: Unable to assess Anthropometric Measures: Height: 160 cm (5' 3") Current Body Weight: 72.6 kg (160 lb 0.9 oz) Weight Source: Stated [place] Body Weight (lbs) (Calculated): 115 lbs [place] Body Weight (Kg) (Calculated): 52 kg BMI (kg/m2) (Calculated): 28.4 BMI Categories: Overweight (BMI 25.0-29.9) BMI (Calculated): 28.35 Weight: 72.6 kg (160 lb) Weight Method: Stated Weight History: Wt Readings from Last 20 Encounters: 12/12/23 72.6 kg (160 lb) 12/11/23 72.6 kg (160 lb) 08/30/22 94.4 kg (208 lb 3.2 oz) 06/28/22 94.8 kg (208 lb 14.4 oz) 01/04/22 94.8 kg (208 lb 14.4 oz) 10/04/21 98.2 kg (216 lb 6.4 oz) 07/04/21 98.6 kg (217 lb 4.8 oz) 03/30/21 100 kg (221 lb 6.4 oz) 11/10/20 96.8 kg (213 lb 8 oz) 07/14/20 88.5 kg (195 lb) 07/02/20 88.5 kg (195 lb) 06/09/20 88.5 kg (195 lb) 05/12/20 88.5 kg (195 lb) 04/02/20 85.3 kg (188 lb) 02/20/20 85.3 kg (188 lb) 01/16/20 90.7 kg (200 lb) 12/30/19 90.7 kg (200 lb) 12/04/19 104 kg (230 lb) 09/25/19 93.4 kg (206 lb) Nutrition Diagnosis: Increased nutrient needs related to acute injury/trauma as evidenced by wounds related to as evidenced by Nutrition Interventions: Nutrition Education/Counseling: No recommendation at this time Coordination of Nutrition Care: Continue to monitor while inpatient Goals: Previous Goal Met: Progressing toward Goal(s) Goals: PO intake 75% or greater, by next RD assessment Nutrition Monitoring and Evaluation: Food/Nutrient Intake Outcomes: Food and Nutrient Intake, Supplement Intake Physical Signs/Symptoms Outcomes: Biochemical Data, GI Status, Skin, Weight, Nutrition Focused Physical Findings Discharge Planning: Too soon to determine Laisha Castro MS, RD, LD Contact: or BriefMe Chat (dial [phone] from hospital phone) Spiritual Care Note [facility] Patient Name:Beverly Agee Chief Complaint: Chief Complaint Patient presents with Rib Injury Shortness of Breath Reason for visit: Initial Visit Services Provided To:patient Background and visit note: Patient resting in bed wearing an oxygen cannula. Patient is a . Patient has three sons and eleven grandchildren. Life review conducted. Patient lost three babies before having her first son. Patient is a V[employer] and so is her sons. Patient lives alone and is concerned about her frequent falls with subsequent injuries. Patient is supported by her family. Provided supportive prayer specifically asking for healing. A total of 25 minutes was spent with this encounter including visitation and dcumentation. Is there spiritual distress? YES Comment: Anxious about th causes of her frequent falls. Interventions: spiritual support provided, emotional support provided, empathetic listening, validated feelings, alleviation of fear and anxiety, and spiritual Support. Care Plan: build trust, legacy building, spiritual integration, find peace/acceptance, and connect to higher power. Follow Up: PRN. Debriefed: N/A. Lai Cuellar 12/18/23 Images from the original note were not included. PHYSICAL THERAPY [facility] Re-Evaluation Name/MRN: Beverly Agee ([id number]) Evaluation Date: 12/18/2023 Date of : 1945 Admission Date: 12/12/2023 9:42 PM Age: 78 y.o. Room/Bed: T2-204/T2-204 A Discharge Recommendation: [facility] Facility Equipment Needed: No Assessment IMPRESSION: PT re-eval completed s/p VATS, rib blocking and plating 12/16. She was Mod A x2 for bed mobility, Mod A x1 and Min A x1 for transfers, and Min A x2 for ambulation. Limited mainly d/t pain in R side. She is from home alone, remains unsafe for return at discharge. Would recommend SNF. Diagnosis: fall, R side rib fractures, NEW VATS with evac of hematoma, rib plating R 9-10, and rib block 5-10 12/16 Prognosis: fair Performance Deficits /Impairments: Increased Pain, Decreased Functional Mobility, Decreased Strength, Decreased Endurance, and Decreased Balance Decision Making: Medium Complexity Subjective Pt supine in bed. Agreeable to PT session. Cleared by nursing. Stated she is starting to notice a difference in pain levels following surgery yesterday. 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 Depression History of blood transfusion Hyperlipidemia Hypertension Type II or unspecified type diabetes mellitus without mention of complication, not stated as uncontrolled ([facility]) Past Surgical History: Past Surgical History: Procedure Laterality Date BREAST LUMPECTOMY Left BREAST LUMPECTOMY Left 2012 s/p radiation as well CATARACT EXTRACTION W/ INTRAOCULAR LENS IMPLANT Bilateral 10/2015, 12/2015 SECTION (HISTORICAL) CHOLECYSTECTOMY DILATION AND CURETTAGE OF UTERUS FEMUR FRACTURE SURGERY Right 11/30/2019 HIP ARTHROPLASTY Right 01/21/2020 conversion JOINT REPLACEMENT Bilateral ROTATOR CUFF REPAIR Right TOTAL ABDOMINAL HYSTERECTOMY Admission Diagnosis: Patient Active Problem List Diagnosis Date Noted Closed fracture of multiple ribs of right side, initial encounter 12/12/2023 Weakness 10/03/2022 Hyperglycemia 10/03/2022 Noncompliance with treatment regimen 06/30/2022 UTI (urinary tract infection) 11/29/2019 Closed fracture of one rib of left side 08/01/2021 Hemothorax 08/01/2021 Anticoagulated 08/01/2021 Mood disorder ([facility]) 11/13/2020 Hip fracture requiring operative repair, right, closed, initial encounter ([facility]) 01/21/2020 E-coli UTI 12/01/2019 H/O: CVA (cerebrovascular accident) 11/29/2019 Tobacco dependence syndrome 11/29/2019 Memory impairment 11/29/2019 Fall 11/29/2019 Leukocytosis 11/29/2019 Closed fracture of hip ([facility]) 11/29/2019 Unsteady gait 11/29/2019 Type 2 diabetes mellitus with hyperglycemia, with long-term current use of insulin ([facility]) 11/29/2019 Acute cystitis 11/29/2019 Obesity 11/29/2019 Atrial fibrillation ([facility]) 11/29/2019 Hypomagnesemia 02/18/2019 History of radial keratotomy 01/31/2017 Examination of participant in clinical trial 02/03/2016 Malignant neoplasm of upper-outer quadrant of female breast ([facility]) 02/03/2016 Psychophysiological insomnia 05/06/2015 Essential hypertension 05/06/2015 Mixed anxiety depressive disorder 05/06/2015 Hyperlipidemia 05/06/2015 Medical Precautions: No active isolations Proper PPE donned/doffed in accordance with facility standards. Fall Risk: Loyd Fall Risk Score: 45 (High Risk) Precautions/Restrictions: Lines/Drains/Airways: PIV, tele, chest tube to wall suction, purewick, 2L O2 via NC Family/Caregiver Present: none Overall Cognitive Status: WFL Overall Orientation Status: Oriented x4 Vision: no visual deficits Hearing: normal Social/Functional History Pt from home alone, one level, 3 steps to enter, indep with all, uses FWW with mobility Prior Level of Function ADL Assistance: Independent Ambulation Assistance: Independent Transfer Assistance: Independent Objective Lower Extremity Assessment AROM: WFL PROM: WFL Strength: WFL (3+/5 overall) Bed Mobility: Supine to sit: Mod Assist, x2 Person Assist HOB elevated, slight BLE assist, heavy trunk assist with high pain levels. Use of pillow for guarding and splinting cough Transfers Sit to stand: Min Assist, Mod Assist, x2 Person Assist Stand to sit: Min Assist, x2 Person Assist EOB x1 at FWW, Mod A on L side for elevation, Min in R side. Standing several minutes EOB, SpO2 maintained WFL Ambulation Ambulation 1 Assistive device(s) used: front wheeled walker Assist level: Min Assist, x2 Person Assist Distance (ft): 4' Quality of gait: antalgic, narrow LUCA, slow savanna, short step length, slight SOBOE Sensation: WFL Outcome Measures AM-PAC How much HELP from another person do you currently need Turning from your back to your side while in a flat bed without using bedrails?: A Lot Moving from lying on your back to sitting on the side of a flat bed without using bedrails?: A Lot Moving to and from a bed to a chair (including a wheelchair)?: A Lot Standing up from a chair using your arms (wheelchair or bedside chair)?: A Lot Walking in a hospital room?: A Lot Stair climbing assessed?: No AM-PAC Inpatient Mobility Raw Score (No Stairs) : 10 [facility] Score: Static standing (1 or more minutes) Plan Pt would benefit from skilled acute PT services to address Strengthening, Balance Training, Functional Mobility Training, Endurance Training, Gait Training, Stair Training, Safety Education and Training, Patient/Caregiver Training, and Equipment Evaluation/Education. Frequency: 5x/week for 4 weeks Barriers: Pain, Decreased endurance, Upper extremity weakness, and Lower extremity weakness Safety/Education Safety Safety Devices in place: call light within reach, left in chair, gait belt, patient at risk for falls, and nurse notified Restraints: No Education Education Given To: patient Education Provided: PT Role, PT Goals, Gait Training, Plan of Care, Precautions, Transfer Training, Equipment, Fall Prevention Education, and Benefits of Increasing Activity Education Method: Verbal Barriers to Learning: None Education Outcome: Verbalized Understanding Goals Patient Stated Goal: to feel better Encounter Problems Encounter Problems (Active) Balance Patient will maintain dynamic standing balance for 5 minutes with supervision in order to demonstrate decreased risk of falling. Start: 12/18/23 Expected End: 01/15/24 Mobility Patient will ambulate 75 feet with supervision and least restrictive device in order to improve safety and independence with mobility. Start: 12/18/23 Expected End: 01/15/24 Patient will ascend and descend 3 stairs with least restrictive device and supervision in order to safely negotiate home. Start: 12/18/23 Expected End: 01/15/24 Transfers Patient will perform bed mobility with supervision in order to improve independence and prepare for out of bed mobility. Start: 12/18/23 Expected End: 01/15/24 Patient will complete functional transfer with least restrictive device with modified independence in order to prepare for ambulation. Start: 12/18/23 Expected End: 01/15/24 Therapy Time Individual Co-treatment Time In 0910 Time Out 0932 Minutes 22 Timed Code Treatment Minutes: (re-eval) Mariely Saez PT Patient's Physical Therapy Plan of Care supervision is transferred to a [facility] Therapy Services Physical Therapist. Goals and/or treatment plan was established in collaboration with patient/family/other representatives. [facility] Geriatric Medicine Inpatient Consult Service Admission Date: 12/12/2023 Assessment Principal Problem: Closed fracture of multiple ribs of right side, initial encounter Plan Acute pain due to trauma --Recommend scheduled acetaminophen 1g TID with PRN oxycodone (5-10mg) PRN for breakthrough. Monitor for worsening mentation after oxycodone dosing. -Optimize nonpharmacologic pain treatment modalities. -Ensure that bowel regimen is in place while on narcotic regimen. Fall -Multiple risk factors includingweakness, cognitive deficits, diabetes, and possible medication side effect -Continue PT/OT as able while inpatient -Vitamin D low - see below -Check orthostatic vital signs as able -Medications with associated fall risk include: Insulin - continue closely monitoring blood sugars to determine most appropriate discharge dosing. Antihypertensives - continue to monitor vitals. Vitamin D deficiency Lab Results Component Value Date VITD25 25 (L) 12/14/2023 --Continue high dose replacement 50,000 Qweek x 8 weeks; follow up with PCP for follow up levels and need for on-going supplementation. Cognitive deficits --+ history of cognitive decline at home since stroke. + history of decline in IADL's --TSH WNL, B12 WNL --Head imaging - none recent --At risk for vascular dementia given cognitive changes since stroke in 2016. --Recommend outpatient follow up at [facility] ([facility]) for more in depth cognitive evaluation when in usual state of health. At risk for delirium --Risk factors: pain, advanced age, high risk medications, and baseline cognitive deficits --Encourage PO intake, time up in chair, family visits, supervised ambulation, and sleep hygiene --If agitated, assess for and consider treating for pain --QTc= 431 --No antipsychotic unless patient is danger to self/others/treatment --Continue scheduled melatonin at HS --Monitor for constipation/urinary retention - last BM 12/15 --Possible medication contributions: n/a Polypharmacy -Continue home trazodone 50 mg at bedtime prn -Agree with slower reduction of venlafaxine - continue 150mg in the AM, 75mg in the PM. Recommend switching PM dose to 4pm to prevent interference with sleep. -Continue home Vitamin B12 500 mcg daily, and folic acid 400 mcg daily -Watch for need to restart losartan 25 mg daily and magnesium oxide 400 mg daily - on DIRECTOR OF PREMIUM SEAT SALES , not on now. Declining functional status --Related to acute injuries --Continue PT/OT as able while inpatient --Anticipate d/c to SNF for ongoing daily PT/OT; she is agreeable. Discussed with son at bedside Follow-up: will follow with you Subjective Chief Complaint: fall Geriatrics consulted for "Fall at home with rib Fx and hemothorax HPI- The patient is new to me but seen by the Geriatric Inpatient Consult team. 78 y.o. year-old female admitted to acute care from home for falls. Diagnosed with hemothorax, rib fracture. Per initial geriatrics consult, lives at home alone. History of recurrent falls over the past year. Memory decline since stroke in 2016. Independent in ADL's, family manages most IADL's. Interval History: Remains on ICU. Underwent rib plating and cryoablation yesterday. Cooperative with scheduled meds last night and this morning. No PRN Dilaudid use since yesterday evening, PRN oxycodone x 1 this AM. BM 12/16. Pt reports feeling OK,still with pain in R side. Knows she had a procedure yesterday but not sure what they did. Doesn't know if her pain in better after the procedure or not. Thinks she's sleeping OK, doesn't remember any issues overnight. Thinks she's eating OK, can't recall what she had for breakfast. Admits to difficulty with her memory. Initially reports plan to return home at discharge but is easily reoriented and agreeable to plan for SNF at discharge. Seen by PT 12/13, min to mod assist, ambulated 15ft then 28ft. Recommending SNF. Has not yet been re-evaluated since her procedure. Review of Systems Musculoskeletal: Positive for arthralgias, gait problem and myalgias. Psychiatric/Behavioral: Positive for confusion. Negative for sleep disturbance. Objective BP 112/56 Pulse 97 Temp 36.1 C (96.9 F) Resp 24 Ht 5' 3" (1.6 m) Wt 160 lb (72.6 kg) SpO2 100% BMI 28.34 kg/m Intake/Output Summary (Last 24 hours) at 12/18/2023 1016 Last data filed at 12/18/2023 0600 Gross per 24 hour Intake 2083 ml Output 830 ml Net 1253 ml Wt Readings from Last 3 Encounters: 12/12/23 160 lb (72.6 kg) 12/11/23 160 lb (72.6 kg) 08/30/22 208 lb 3.2 oz (94.4 kg) Current Facility-Administered Medications: acetaminophen (Tylenol) tablet 1,000 mg, 1,000 mg, Oral, q8h, Lucille Soto MD, 1,000 mg at 12/18/23 0659 cyanocobalamin (Vitamin B-12) tablet 500 mcg, 500 mcg, Oral, Daily, Birgit Ramsey MD, 500 mcg at 12/18/23 0825 dextrose 5 % infusion, 100 mL/hr, IntraVENous, PRN, Evan Richardson MD dextrose 50 % solution 12.5 g, 12.5 g, IntraVENous, PRN, Lucille Soto MD enoxaparin (Lovenox) syringe 30 mg, 30 mg, SubCUTAneous, q12h, Evan Richardson MD, 30 mg at 12/18/23 0602 ergocalciferol (Vitamin D2) capsule 1.25 mg, 1.25 mg, Oral, Weekly, Cass Howe APRN - PROGRAM DEVELOPMENT MANAGER, 1.25 mg at 12/15/23 0954 folic acid (Folvite) tablet 1 mg, 1 mg, Oral, Daily, Birgit Ramsey MD, 1 mg at 12/18/23 0825 glucagon (human recombinant) injection 1 mg, 1 mg, IntraMUSCular, PRN, Evan Richardson MD glucose oral gel 15 g, 15 g, Oral, PRN, Lucille Soto MD glucose oral gel 15 g, 15 g, Oral, PRN, Evan Richardson MD, 15 g at 12/16/23 0217 hydrALAZINE (Apresoline) injection 10 mg, 10 mg, IntraVENous, q4h PRN, Linda Bueno MD HYDROmorphone (Dilaudid) injection 0.25 mg, 0.25 mg, IntraVENous, q4h PRN, 0.25 mg at 12/13/232100 OR HYDROmorphone (Dilaudid) injection 0.5 mg, 0.5 mg, IntraVENous, q4h PRN, Lucille Soto MD, 0.5 mg at 12/17/232058 insulin glargine (Lantus) injection 15 Units, 15 Units, SubCUTAneous, BID, Evan Richardson MD, 15 Units at 12/18/23 0828 Insulin Lispro (Humalog) injection 0-18 Units, 0-18 Units, SubCUTAneous, TID WC, 9 Units at 12/17/23 1723 AND Insulin Lispro (Humalog) injection 0-18 Units, 0-18 Units, SubCUTAneous, Nightly, Linda Bueno MD, 6 Units at 12/17/23 2044 ipratropium-albuterol (Duo-Neb) 0.5-2.5 mg/3 mL nebulizer solution 3 mL, 3 mL, Nebulization, BID PRN, Charlotte Braswell MD labetalol (Normodyne,Trandate) injection 10 mg, 10 mg, IntraVENous, q4h PRN, Linda Bueno MD Lidocaine 4 % patch 1 patch, 1 patch, TransDERmal, Daily, Birgit Ramsey MD, 1 patch at 12/18/23 0826 magnesium oxide (Mag-Ox) tablet 400 mg, 400 mg, Oral, BID, Birgit Ramsey MD, 400 mg at 12/18/23 0913 melatonin tablet 5 mg, 5 mg, Oral, Nightly, Lucille Soto MD, 5 mg at 12/17/232043 naloxone (Narcan) injection 0.4 mg, 0.4 mg, IntraVENous, PRN, Lucille Soto MD ondansetron ODT (Zofran-ODT) disintegrating tablet 4 mg, 4 mg, Oral, q8h PRN OR ondansetron (Zofran) injection 4 mg, 4 mg, IntraVENous, q6h PRN, Lucille Soto MD oxyCODONE (Roxicodone) immediate release tablet 5 mg, 5 mg, Oral, q6h PRN, 5 mg at 12/15/23 1013 OR oxyCODONE (Roxicodone) immediate release tablet 10 mg, 10 mg, Oral, q6h PRN, Lucille Soto MD, 10 mg at 12/18/23 0913 polyethylene glycol (PEG) 3350 (Miralax) packet 17 g, 17 g, Oral, Daily PRN, Lucille Soto MD, 17 g at 12/16/23 0954 polyethylene glycol (PEG) 3350 (Miralax) packet 17 g, 17 g, Oral, Daily, Jess Roca MD, 17 g at 12/18/23 08 pravastatin (Pravachol) tablet 80 mg, 80 mg, Oral, Daily, Lucille Soto MD, 80 mg at 12/18/23824 sennosides (Senokot) tablet 8.6 mg, 1 tablet, Oral, Nightly, Birgit Ramsey MD, 8.6 mg at 12/17/232043 sodium chloride 3 % hypertonic nebulizer solution 4 mL, 4 mL, Nebulization, PRN, Evan Richardson MD stomahesive in petrolatum (ET Mix), , Topical, q8h, RADHA Toth CNP, Given at 12/18/23 0358 stomahesive in petrolatum (ET Mix), , Topical, PRN, RADHA Toth CNP traZODone (Desyrel) tablet 50 mg, 50 mg, Oral, Nightly PRN, Linda Bueno MD, 50 mg at 12/15/23 2205 venlafaxine XR (Effexor XR) 24 hr capsule 150 mg, 150 mg, Oral, Daily with breakfast, Birgit Ramsey MD, 150 mg at 12/18/23 0825 venlafaxine XR (Effexor XR) 24 hr capsule 75 mg, 75 mg, Oral, Nightly, Birgit Ramsey MD, 75 mg at 12/17/232043 Physical Exam Constitutional: No acute distress, well-nourished, mildly disheveled Psych: Mood and affect Appropriate. Good eye contact. Cardiovascular: Regular rate and rhythm, no murmur, no BLE edema Pulmonary/Chest: Diminished to auscultation bilaterally, normal respiratory effort, no coughing noted. Chest tube in place. Abdominal: Soft, not distended, no tenderness to palpation, BS present, Neurological: alert, attentive, speech is clear but vague , oriented x month, place, city, and self, follows commands, no tremor Labs and Imaging: Recent Results (from the past 24 hour(s)) POCT glucose meter Collection Time: 12/17/23 3:28 PM Result Value Ref Range Glucose 252 (H) 70 - 100 mg/dL Hemoglobin and hematocrit, blood Collection Time: 12/17/23 5:16 PM Result Value Ref Range Hemoglobin 11.0 (L) 11.7 - 16.0 g/dL Hematocrit 33.1 (L) 35.0 - 47.0 % POCT glucose meter Collection Time: 12/17/23 5:17 PM Result Value Ref Range Glucose 252 (H) 70 - 100 mg/dL POCT glucose meter Collection Time: 12/17/23 8:39 PM Result Value Ref Range Glucose 218 (H) 70 - 100 mg/dL CBC Collection Time: 12/18/23 3:59 AM Result Value Ref Range Auto WBC 14.1 (H) 3.6 - 10.7 10*3/uL RBC 3.46 (L) 3.80 - 5.20 10*6/uL Hemoglobin 10.3 (L) 11.7 - 16.0 g/dL Hematocrit 30.8 (L) 35.0 - 47.0 % MCV 89.0 77.0 - 99.0 fL MCH 29.8 26.0 - 34.0 pg MCHC 33.4 30.5 - 36.0 % RDW 13.4 11.5 - 15.0 % Platelets 337 140 - 440 10*3/uL MPV 9.5 9.0 - 12.7 fL Basic metabolic panel Collection Time: 12/18/23 3:59 AM Result Value Ref Range SODIUM 131 (L) 135 - 145 mmol/L POTASSIUM 4.4 3.5 - 5.1 mmol/L CHLORIDE 100 98 - 107 mmol/L CARBON DIOXIDE 29 22 - 30 mmol/L UREA NITROGEN 17 7 - 17 mg/dL CREATININE 0.72 0.52 - 1.04 mg/dL GLUCOSE 141 (H) 70 - 100 mg/dL CALCIUM 9.3 8.4 - 10.4 mg/dL ANION GAP 2 (L) 3 - 13 mmol/L eGFR 86.8 >60.0 mL/min/1.73m*2 POCT glucose meter Collection Time: 12/18/23 8:13 AM Result Value Ref Range Glucose 120 (H) 70 - 100 mg/dL No results found for: "TSH" Lab Results Component Value Date [id number] 623 12/13/2023 Lab Results Component Value Date VITD25 25 (L) 12/14/2023 Reviewed: social history, imaging, active problem lists, medications, and labs Images from the original note were not included. OCCUPATIONAL THERAPY [facility] Initial Evaluation Name/MRN: Beverly Agee ([id number]) Evaluation Date: 12/18/2023 Date of : 1945 Admission Date: 12/12/2023 9:42 PM Age: 78 y.o. Room/Bed: T2-/T2 A Discharge Recommendation: IP Rehab Assessment IMPRESSION: Pt seen for OT eval. Pt admitted for fall with acute trauma. R hemothorax and R pneumothorax with Rib Fx 8-10 and displaced 9, 10 and seen s/p VATS. Pt previously independent with FWW, now requiring the assist of two skilled therapist to maximize functional gains. Pt currently completing ADLs in recliner and requires Modx2 for bed mobility, Mod and Min x2 for transfers, and MinAx2 for mobility. Pt appears motivated and would tolerate intensive therapies with rest breaks. Recommend IPR at discharge. Performance Deficits /Impairments: Increased Pain, Decreased Functional Mobility, Decreased ADL status, Decreased Strength, Decreased Endurance, Decreased High Level IADLs, and Decreased Posture Prognosis: Fair Decision Making: Medium Complexity Subjective Pt pleasant and agreeable to OT eval. Co-tx with PT to maximize gains. Pain: RN managing pain. Pt received pain medications upon entry. 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 artery occlusion with cerebral infarction ([facility]) 07/2016 right temporal /occiptial/ and hypocapal Depression History of blood transfusion Hyperlipidemia Hypertension Type II or unspecified type diabetes mellitus without mention of complication, not stated as uncontrolled ([facility]) Past Surgical History: Past Surgical History: Procedure Laterality Date BREAST LUMPECTOMY Left BREAST LUMPECTOMY Left 2012 s/p radiation as well CATARACT EXTRACTION W/ INTRAOCULAR LENS IMPLANT Bilateral 10/2015, 12/2015 SECTION (HISTORICAL) CHOLECYSTECTOMY DILATION AND CURETTAGE OF UTERUS FEMUR FRACTURE SURGERY Right 11/30/2019 HIP ARTHROPLASTY Right 01/21/2020 conversion JOINT REPLACEMENT Bilateral ROTATOR CUFF REPAIR Right TOTAL ABDOMINAL HYSTERECTOMY Admission Diagnosis: Patient Active Problem List Diagnosis Date Noted Closed fracture of multiple ribs of right side, initial encounter 12/12/2023 Weakness 10/03/2022 Hyperglycemia 10/03/2022 Noncompliance with treatment regimen 06/30/2022 UTI (urinary tract infection) 11/29/2019 Closed fracture of one rib of left side 08/01/2021 Hemothorax 08/01/2021 Anticoagulated 08/01/2021 Mood disorder ([facility]) 11/13/2020 Hip fracture requiring operative repair, right, closed, initial encounter ([facility]) 01/21/2020 E-coli UTI 12/01/2019 H/O: CVA (cerebrovascular accident) 11/29/2019 Tobacco dependence syndrome 11/29/2019 Memory impairment 11/29/2019 Fall 11/29/2019 Leukocytosis 11/29/2019 Closed fracture of hip (HCC) 11/29/2019 Unsteady gait 11/29/2019 Type 2 diabetes mellitus with hyperglycemia, with long-term current use of insulin (HCC) 11/29/2019 Acute cystitis 11/29/2019 Obesity 11/29/2019 Atrial fibrillation (HCC) 11/29/2019 Hypomagnesemia 02/18/2019 History of radial keratotomy 01/31/2017 Examination of participant in clinical trial 02/03/2016 Malignant neoplasm of upper-outer quadrant of female breast (HCC) 02/03/2016 Psychophysiological insomnia 05/06/2015 Essential hypertension 05/06/2015 Mixed anxiety depressive disorder 05/06/2015 Hyperlipidemia 05/06/2015 Medical Precautions: No active isolations Proper PPE donned/doffed in accordance with facility standards. Fall Risk: Loyd Fall Risk Score: 45 (High Risk) Precautions/Restrictions: Lines/Drains/Airways: R chest tube, PIV, ext cath, 2L O2 NC Fall risk, waffle cushion Family/Caregiver Present: none Overall Cognitive Status: WFL alert and attentive throughout session. Very friendly and joking with staff. Able to express needs without issue. Overall Orientation Status: Oriented x4 Social/Functional History Patient admitted from home. Lives With: Alone Type of Home: single family home Home Layout: Single Level Home Home Access: Stairs to Enter with Rails (# of stairs: 3) Bathroom Shower/Tub: Toilet: N/A Home Equipment: front wheeled walker and cane Homemaking Responsibilities: Independent Receives Help From: None Active Optomechanical Engineer: Prior Level of Function ADL Assistance: Independent Ambulation Assistance: Independent Device(s) used: front wheeled walker Transfer Assistance: Independent Objective ADLs Grooming: Supervision - Pt combed hair in recliner UE Bathing: Supervision - Pt washed face with wipe in recliner LE Dressing: Not assessed this session, but estimated to be at least ModA for socks and pants d/t pain and balance at this time Toileting: Not assessed this session but estimated to be at least ModA for LB clothing management and balance at this time. Upper Extremity Assessment AROM: WFL SKYLER shoulders ~115* flexion PROM: WFL Strength: WFL - SKYLER UEs 3+/5 throughout. Cage Operator strength fair Bed Mobility Supine to sit: Mod Assist, x2 Person Assist Assist with trunk and legs Transfers/Functional Mobility Sit to stand: Min Assist, Mod Assist, x2 Person Assist - different assist levels on each side for boost Stand to sit: Min Assist, Mod Assist, x2 Person Assist - different assist levels on each side for eccentric control. Stand step: Min Assist, x2 Person Assist to recliner Sitting balance: SBA EOB Standing balance: Min Assist, x2 Person Assist supported with FWW while managing lines. Device(s) used: front wheeled walker AM-PAC AM-PAC Inpatient Daily Activity Raw Score: 17 ADL Inpatient CMS G-Code Modifier: CK Plan Pt would benefit from skilled acute OT services to address Strengthening, Balance Training, Functional Mobility Training, Endurance Training, Pain Management, Safety Education and Training, Patient/Caregiver Training, Equipment Evaluation/Education, Positioning, Self-Care/ADL Training, Home Management Training, and Cognitive/Perceptual Training. Frequency: 4x/week for 4 weeks Barriers: Pain, Decreased endurance, Upper extremity weakness, Skin Care, Wound Care, and Medication managment Prognosis: fair Safety/Education Safety Safety Devices in place: call light within reach, left in chair, gait belt, patient at risk for falls, and nurse notified Restraints: N/A Education Education Given To: patient Education Provided: OT Role, Plan of Care, and Transfer Training Education Method: Verbal Barriers to Learning: None Education Outcome: Verbalized Understanding Goals Patient Stated Goal: Pt did not state Encounter Problems Encounter Problems (Active) Dressings Lower Extremities Patient will dress lower body Estephania Start: 12/18/23 Expected End: 01/15/24 Grooming Patient will complete daily grooming tasks Estephania at sink Start: 12/18/23 Expected End: 01/15/24 Toileting Patient will complete toileting tasks Estephania Start: 12/18/23 Expected End: 01/15/24 Transfers Patient will complete functional toilet transfer Estephnaia Start: 12/18/23 Expected End: 01/15/24 Therapy Time Individual Co-treatment Time In 0910 Time Out 0933 Minutes 23 Timed Code Treatment Minutes: 10 Minutes (1-FA) Rosalino Delgado/ANA Patient's Occupational Therapy Plan of Care supervision is transferred to a [facility] Occupational Therapist. Goals and/or treatment plan was established in collaboration with patient/family/other representatives. Images from the original note were not included. [facility] Wound Care Progress Note Beverly Agee AGE: 78 y.o. GENDER: female : 1945 Subjective: HISTORY of PRESENT ILLNESS HPI Beverly Agee is a 78 y.o. female who presents for a wound follow up. HPI: 78 y.o. female status post fall 4 days ago. The incident happened on 12/10/23 at home. When the event happened the patient fell and hit a table. She was seen by her PCP on 12/10 who ordered CXR, which showed rib fracture. She presented to [place] ED with SOB, hypoxic, and tachycardic. CT showed large R effusion likely hemothorax. Wound Care consulted for pressure injury. Patient resting in chair at time of visit. Patient reports treatment completed prior to this visit. Patient able to stand with minimal assistance. 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 Depression History of blood transfusion Hyperlipidemia Hypertension Type II or unspecified type diabetes mellitus without mention of complication, not stated as uncontrolled (HCC) PAST SURGICAL HISTORY Past Surgical History: Procedure Laterality Date BREAST LUMPECTOMY Left BREAST LUMPECTOMY Left 2012 s/p radiation as well CATARACT EXTRACTION W/ INTRAOCULAR LENS IMPLANT Bilateral 10/2015, 12/2015 SECTION (HISTORICAL) CHOLECYSTECTOMY DILATION AND CURETTAGE OF UTERUS FEMUR FRACTURE SURGERY Right 11/30/2019 HIP ARTHROPLASTY Right 01/21/2020 conversion JOINT REPLACEMENT Bilateral ROTATOR CUFF REPAIR Right TOTAL ABDOMINAL HYSTERECTOMY FAMILY HISTORY Family History Problem Relation Name Age of Onset Asthma Son Thyroid disease Brother Cancer Mother Cancer Father Thyroid disease Mother Cancer Brother Asthma Son Asthma Son SOCIAL HISTORY Social History Tobacco Use Smoking status: Every Day Packs/day: .75 Types: Cigarettes Smokeless tobacco: Never Substance Use Topics Alcohol use: Yes Alcohol/week: 0.0 standard drinks of alcohol Drug use: No ALLERGIES Allergies Allergen Reactions Aspirin Hives and Swelling Blotchy, GI, hives Penicillins blotchiness Sulfa Antibiotics Hives and Swelling blotchy MEDICATIONS No current facility-administered medications on file prior to encounter. Current Outpatient Medications on File Prior to Encounter Medication Sig Dispense Refill ascorbic acid (Vitamin C) 1000 MG tablet Take 1,000 mg by mouth daily. cholecalciferol (Vitamin D-3) 25 MCG (1000 UT) capsule Take 1,000 Units by mouth in the morning. cyanocobalamin (Vitamin B-12) 1000 MCG tablet Take 500 mcg by mouth in the morning. fenofibrate (Tricor) 145 MG tablet Take 1 tablet (145 mg) by mouth in the morning. 30 tablet 5 folic acid (Folvite) 400 MCG tablet Take by mouth daily. insulin aspart (NovoLOG FLEXPEN) 100 UNIT/ML pen Inject 10 Units under the skin in the morning and 10 Units at noon and 10 Units in the evening. Inject with meals. (Patient taking differently: Inject under the skin 3 times daily (with meals). Patient unsure of mealtime doses) 9 mL 1 insulin glargine (Basaglar KwikPen) 100 UNIT/ML pen Inject 30 Units under the skin 2 times daily. (Patient taking differently: Inject 30 Units under the skin 2 times daily. Patient unsure of dose) 3 mL 1 losartan (Cozaar) 50 MG tablet Take 1 tablet (50 mg) by mouth in the morning. Take 50 mg by mouth in the morning.. (Patient taking differently: Take 25 mg by mouth daily. Take 50 mg by mouth in the morning.) 90 tablet 1 magnesium oxide (Mag-Ox) 400 MG tablet Take 1 tablet (400 mg) by mouth in the morning and 1 tablet (400 mg) before bedtime. 180 tablet 1 pravastatin (Pravachol) 80 MG tablet Take 1 tablet (80 mg) by mouth in the morning. 90 tablet 1 rivaroxaban (Xarelto) 20 MG tablet TAKE 1 TABLET BY MOUTH EVERY MORNING WITH BREAKFAST 90 tablet 1 traZODone (Desyrel) 50 MG tablet Take 50 mg by mouth Nightly as needed for sleep. Patient states she takes most nights venlafaxine XR (Effexor XR) 150 MG 24 hr capsule TAKE 1 CAPSULE BY MOUTH TWICE DAILY 180 capsule 1 [DISCONTINUED] insulin aspart (NovoLOG) 100 UNIT/ML pen Inject 10 Int'l Units under the skin. [DISCONTINUED] mirtazapine (Remeron) 30 MG tablet Take 1 tablet (30 mg) by mouth Nightly. 90 tablet 1 REVIEW OF SYSTEMS Pertinent items are noted in HPI. Objective: BP 112/56 Pulse 97 Temp 36.1 C (96.9 F) Resp 24 Ht 1.6 m (5' 3") Wt 72.6 kg (160 lb) SpO2 100% BMI 28.34 kg/m PHYSICAL EXAM General appearance: in no apparent distress, well developed and well nourished, non-toxic, in no respiratory distress and acyanotic, and alert Skin: warm and dry Pulmonary: Normal effort, no respiratory distress, no cyanosis Sacrum: open wound noted. 0.5x0.5xUTDcm. Slough noted to wound bed. Scant sreosang drainage present. Lisa-wound intact and fragile. IMPROVING LABS CBC: Lab Results Component Value Date WBC 14.1 (H) 12/18/2023 HGB 10.3 (L) 12/18/2023 HCT 30.8 (L) 12/18/2023 MCV 89.0 12/18/2023 PLT 337 12/18/2023 BMP: Lab Results Component Value Date NA 131 (L) 12/18/2023 K 4.4 12/18/2023 CL 100 12/18/2023 CO2 29 12/18/2023 BUN 17 12/18/2023 CREATININE 0.72 12/18/2023 PT/INR: No results found for: "PROTIME", INR Prealbumin: No results found for: PREALBUMIN Albumin:No components found for: LABALBU Sed Rate:No results found for: SEDRATE Micro: No components found for: BC Assessment/Plan: Sacrum: Unstageable pressure injury - Present on admission - Cleanse with NS. Apply ET mix. Leave ESTELITA. Apply TID and PRN. - On ICU bed - Q2 hour turn and reposition Nutritional support Wound Care to follow Recommend to follow up at [facility] wound care center after hospital discharge. Any questions or concerns please secure chat "ACH wound/ostomy". Thank you for the consult! I personally obtained the virk and critical portions of the history and physical exam. I reviewed the labs, imaging studies, and electronic medical record. I reviewed the chart documentation and discussed the patient with treatment team members. I have edited the note to reflect my clinical findings and my assessment and plan. Please note, the time of this note does not reflect the time I saw this patient today, but the time of this documentaton. Portions of this note including HPI, ROS, impression/plan, and examination may have been copied forward from admission to today as to provide important historical information essential in contributing to medical decision making. Documentation has been reviewed and edited as necessary to support clinical decision making for today's visit and to reflect my own independent evaluation of this patient. Decision making for today's visit and to reflect my own independent evaluation of this patient. This is a non-billable note. Patient planned for rib block today per surgery. Will return tomorrow for formal follow up. Signed, Alaina Rodriguez APRN, CNP Palliative Care/Hospice [facility] [phone] Images from the original note were not included. PHYSICAL THERAPY [facility] Name/MRN: Beverly Agee ([id number]) Date: 12/17/2023 PT tx held today. Per EMR, "Plan for VATS today w/possible cryoablation possible rib plating". Dunia Lee PT Images from the original note were not included. Daily SICU Progress Note Resident 12/16/2023 6:36 AM Admit Date: 12/12/2023 HPI: 78 y.o. female status post fall 4 days ago. The incident happened on 12/10/23 at home. When the event happened the patient fell and hit a table. She was seen by her PCP on 12/10 who ordered CXR, which showed rib fracture. She presented to [place] ED with SOB, hypoxic, and tachycardic. CT showed large R effusion likely hemothorax. She was directly admitted to T2 ICU. The patient reports mild right chest pain and SOB. No LH or dizziness. Has been having frequent falls recently. She did not lose consciousness and recalls the fall, it was due to weakness in her legs. Doesn't think she hit her head. No other preceding symptoms. Last took Xarelto 1 day ago. Patient notes that she lives at home by herself. PROCEDURES: 12/12 - CT placement CHIEF COMPLAINT: Right rib pain PREVIOUS 24 HOUR EVENTS: CT chest with retain hemothorax and CT in the fissure/mediastinum Lovenox held Consults: IP CONSULT TO ANESTHESIOLOGY IP CONSULT TO PALLIATIVE CARE IP CONSULT TO GERIATRICS IP WOUND CARE NURSE CONSULT TO EVAL MEDICATIONS: Current Facility-Administered Medications: acetaminophen (Tylenol) tablet 1,000 mg, 1,000 mg, Oral, q8h, Lucille Soto MD, 1,000 mg at 12/16/23 0203 dextrose 5 % infusion, 100 mL/hr, IntraVENous, PRN, Evan Richardson MD dextrose 50 % solution 12.5 g, 12.5 g, IntraVENous, PRN, Lucille Soto MD [Held by provider] enoxaparin (Lovenox) syringe 30 mg, 30 mg, SubCUTAneous, q12h, Linda Bueno MD, 30 mg at 12/14/23 1745 ergocalciferol (Vitamin D2) capsule 1.25 mg, 1.25 mg, Oral, Weekly, Cass Howe, DYE MAKER - PROGRAM DEVELOPMENT MANAGER, 1.25 mg at 12/15/23 0954 glucagon (human recombinant) injection 1 mg, 1 mg, IntraMUSCular, PRN, Evan Richardson MD glucose oral gel 15 g, 15 g, Oral, PRN, Lucille Soto MD glucose oral gel 15 g, 15 g, Oral, PRN, Evan Richardson MD, 15 g at 12/16/23 0217 HYDROmorphone (Dilaudid) injection 0.25 mg, 0.25 mg, IntraVENous, q4h PRN, 0.25 mg at 12/13/23 210 OR HYDROmorphone (Dilaudid) injection 0.5 mg, 0.5 mg, IntraVENous, q4h PRN, Lucille Soto MD, 0.5 mg at 12/14/23 0308 insulin glargine (Lantus) injection 15 Units, 15 Units, SubCUTAneous, BID, Evan Richardson MD, 15 Units at 12/15/23 0953 Insulin Lispro (Humalog) injection 0-18 Units, 0-18 Units, SubCUTAneous, TID WC, 9 Units at 12/14/23 1745 AND Insulin Lispro (Humalog) injection 0-18 Units, 0-18 Units, SubCUTAneous, Nightly, Linda Bueno MD ipratropium-albuterol (Duo-Neb) 0.5-2.5 mg/3 mL nebulizer solution 3 mL, 3 mL, Nebulization, BID PRN, Charlotte Braswell MD Lidocaine 4 % patch 1 patch, 1 patch, TransDERmal, Daily, Birgit Ramsey MD, 1 patch at 12/15/23 0954 melatonin tablet 5 mg, 5 mg, Oral, Nightly, Lucille Soto MD, 5 mg at 12/15/23 2205 naloxone (Narcan) injection 0.4 mg, 0.4 mg, IntraVENous, PRN, Lucille Soto MD ondansetron ODT (Zofran-ODT) disintegrating tablet 4 mg, 4 mg, Oral, q8h PRN OR ondansetron (Zofran) injection 4 mg, 4 mg, IntraVENous, q6h PRN, Lucille Soto MD oxyCODONE (Roxicodone) immediate release tablet 5 mg, 5 mg, Oral, q6h PRN, 5 mg at 12/15/23 1013 OR oxyCODONE (Roxicodone) immediate release tablet 10 mg, 10 mg, Oral, q6h PRN, Lucille Soto MD, 10 mg at 12/14/23 0024 polyethylene glycol (PEG) 3350 (Miralax) packet 17 g, 17 g, Oral, Daily PRN, Lucille Soto MD, 17 g at 12/15/23 0700 pravastatin (Pravachol) tablet 80 mg, 80 mg, Oral, Daily, Lucille Soto MD, 80 mg at 12/15/23 0953 sodium chloride 3 % hypertonic nebulizer solution 4 mL, 4 mL, Nebulization, PRN, Evan Richardson MD stomahesive in petrolatum (ET Mix), , Topical, q8h, Rhianna Engel APRN - DONY, Given at 12/16/23 0221 stomahesive in petrolatum (ET Mix), , Topical, PRN, Rhianna Engel DYE MAKER - PROGRAM DEVELOPMENT MANAGER traZODone (Desyrel) tablet 50 mg, 50 mg, Oral, Nightly PRN, Linda Bueno MD, 50 mg at 12/15/23 2205 venlafaxine XR (Effexor XR) 24 hr capsule 150 mg, 150 mg, Oral, BID, Linda Bueno MD, 150 mg at 12/16/23 0611 ARE THERE PERTINENT UPDATES TO PAST,FAMILY, OR SOCIAL HISTORY?: No Subjective: Overall doing well. No increasing SOB or increasing O2 requirements Review of Systems Constitutional: Negative for chills and fever. HENT: Negative for congestion and drooling. Eyes: Negative for redness and visual disturbance. Respiratory: Negative for cough and choking. Cardiovascular: Negative for chest pain and leg swelling. Gastrointestinal: Negative for nausea and vomiting. Skin: Negative for rash and wound. Neurological: Negative for dizziness and light-headedness. Psychiatric/Behavioral: Negative for agitation and confusion. Objective: Patient Vitals for the past 24 hrs: BP Temp Pulse Resp SpO2 12/16/23 0500 (!) 129/49 -- 61 17 98 % 12/16/23 0400 132/80 -- 75 17 98 % 12/16/23 0300 (!) 123/49 -- 79 20 97 % 12/16/23 0210 118/74 -- 90 13 99 % 12/16/23 0100 143/70 -- 80 23 97 % 12/16/23 0000 (!) 106/43 -- 68 18 92 % 12/15/23 2300 (!) 122/44 -- 70 19 93 % 12/15/23 2200 142/50 -- 75 19 91 % 12/15/23 2100 147/63 -- 80 22 93 % 12/15/23 2032 146/65 -- 75 21 96 % 12/15/23 1800 131/56 -- 69 20 97 % 12/15/23 1700 118/95 -- 79 20 92 % 12/15/23 1612 -- -- 71 -- -- 12/15/23 1600 106/55 36.4 C (97.5 F) 83 21 95 % 12/15/23 1400 159/53 -- 76 25 98 % 12/15/23 1300 (!) 120/41 -- 71 (!) 26 98 % 12/15/23 1212 -- -- 79 -- -- 12/15/23 1200 -- 36.1 C (97 F) 76 15 99 % 12/15/23 1100 128/51 -- 76 20 98 % 12/15/23 0830 -- -- 77 21 96 % 12/15/23 0800 (!) 123/37 -- 60 17 (!) 86 % 12/15/23 0749 -- 36.1 C (97 F) 57 12 100 % 12/15/23 0743 -- -- 58 16 100 % Intake/Output Summary (Last 24 hours) at 12/16/2023 0636 Last data filed at 12/16/2023 0530 Gross per 24 hour Intake 750 ml Output 1270 ml Net -520 ml I/O this shift: In: - Out: 820 [Urine:700; Chest Tube:120] Chest Tubes: R: YesOutput: 690cc sanguinous output Air Leak: No Suction PHYSICAL: General Appearance: Awake, No acute distress, and Appears well-developed and well-nourished Head: Normocephalic and atraumatic Eyes: Sclera anicteric , EOM's grossly normal, and Conjunctivae normal ENT: Nares clear , Moist Mucous Membranes, Oropharynx clear, no blood , and Midface is stable. Neck: There is no cervical midline tenderness to palpation, step-offs or acute deformities, Trachea midline , No Thyromegaly , and No Crepitus Chest: Comments: right chest wall hematoma with ecchymosis, tenderness to palpation Right chest tube in place to suction without air leak, serosanguinous output Lungs: Clear and unlabored Respirations Heart/Cardiovascular: Rhythm Regular and Tachycardia Abdomen: Soft and Non-Tender : Normal external genitalia Rectal: Positive Gluteal Squeeze Musculoskeletal: Upper and lower extremities have no acute deformities and they are non-tender to palpation, Good ROM , and Log-roll negative for pain Extremities: Cyanosis Absent , Radial Pulses palpable , Posterior Tibial Pulses Palpable , and Dorsalis Pedis Pulses Palpable Skin: Warm Neurologic: Alert and oriented to person, place, and time. , CN II-XII grossly normal, no focal deficits. , Moving all extremities willfully, able to wiggle all fingers and toes. , Sensation grossly intact throughout. , and Strength 5/5 throughout. Psych: Affect Normal Data CBC with Differential: Lab Results Component Value Date WBC 10.0 12/16/2023 RBC 3.22 (L) 12/16/2023 HGB 9.4 (L) 12/16/2023 HCT 28.6 (L) 12/16/2023 PLT 248 12/16/2023 CMP: Lab Results Component Value Date NA 137 12/16/2023 K 4.0 12/16/2023 CL 104 12/16/2023 CO2 31 (H) 12/16/2023 BUN 15 12/16/2023 CREATININE 0.60 12/16/2023 GLUCOSE 58 (L) 12/16/2023 CALCIUM 9.5 12/16/2023 BMP: Hepatic Function Panel:Ionized Calcium: No components found for: "IONCA" Magnesium: No results found for: MG Phosphorus: No results found for: PHOS PT/INR: No results found for: "PROTIME", INR PTT: No results found for: "APTT"[APTT Last 3 Troponin: No results found for: "TROPONINI" Radiology: ECG 12 lead Result Date: 12/14/2023 Sinus rhythm Atrial premature complex Left anterior fascicular block Electronically Signed On 12-14-2023 08:24:18 EDT by James Griffithidcooper POCT glucose meter Result Date: 12/13/2023 Performed by: [facility], [address] [place] [id number] CLIA ID: [id number] POCT glucose meter Result Date: 12/13/2023 Performed by: [facility], [address] [place] [id number] CLIA ID: [id number] XR chest 1 view Result Date: 12/13/2023 Patient Name: BEVERLY AGEE : 1945 Exam Date/Time: 12/13/2023 04:41 Procedure: XR CHEST 1 VIEW Ordering Provider: BRASWELL LAURA Reason For Exam: s/p right chest tube insertion for hemopneumothorax CLINICAL INFORMATION: Shortness of breath. Hemopneumothorax. Right-sided chest tube now in place. Portable view of the chest at 0435 hours is provided and compared to a previous CT dated December 12, 2023. FINDINGS: A chest tube is now in place on the right. The sizable effusion is been evacuated. There is no significant pneumothorax. Emphysematous changes are noted diffusely. 1. New right-sided chest tube. 2. No pneumothorax. Report Dictated on Electronically Signed By: Chico Noguera MD Electronically Signed Date/Time: 12/13/2023 4:[address] chest abdomen pelvis without contrast Result Date: 12/12/2023 [facility] 1945 [id number] Exam Date/Time: 12/12/2023 23:06 Procedure: CT CHEST ABDOMEN PELVIS WO CONTRAST Ordering Provider: GOLDMAN AMY Reason For Exam: Fall INDICATION: 78-year-old; fall; rib pain (same day imaging demonstrated right rib#9 fracture) and difficulty breathing after a fall yesterday; fell on right side Scan Parameters: Multiple axial 1mm images were obtained of the chest and 3mm images of the abdomen and pelvis. Coronal and sagittal reconstructions were reviewed as well. Dose reduction was employed with automated exposure control. Additional reconstructed MIP images provided with 3-D postprocessing. A total of 11 image sets provided for review. CONTRAST: No IV and no oral contrast COMPARISON: Chest and right RIBS 12/11/2023; CT chest 08/01/2021 FINDINGS: CHEST: A very small right pneumothorax is present anteriorly and medially. There is a moderate to large right pleural effusion with associated blood products with compressive atelectasis and/or infiltrate. Pulmonary vascular congestion is present with septal thickening. There are multiple posterior right rib fractures including 8,9,10. Ribs #9 and 10 are displaced with surrounding locules of air. The bones are osteopenic. Old LEFT rib fractures #5,6,10,11. Ribs #6 and 10 are not united. Multilevel endplate degenerative changes are present. There is a soft tissue hematoma posterior to the right rib fractures with associated air locules within the muscle. This measures in greatest axial dimension 1.9 x 4.1 cm. The thyroid gland contour is normal. The airway is patent the tracheobronchial tree calcifications. The esophagus is decompressed with a small hiatal hernia. Dense atherosclerotic calcifications are present along the aorta and coronary arteries. There is no sizable pericardial effusion. The heart is not enlarged. There is no mediastinal, hilar, or axillary adenopathy. There is limited evaluation the breast tissue, correlate with mammography. 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 Superior endplate compression of L5 with mild height loss, age indeterminate. The gallbladder is surgically absent with clips present. The liver, pancreas, and spleen are within normal limits. A right adrenal gland with a rich adenoma measures 13 mm. There is thickening of the medial limb of the left adrenal gland versus small adenoma. There is no hydronephrosis. A left renal 14 mm cyst is present. There is thinning of the renal cortex of the right and left. The bladder contour is normal. The uterus is surgically absent. Multiple colonic diverticuli are present. Fecal retention is present. The appendix is normal. The aorta is tortuous with atherosclerotic dense calcifications. CHEST: 1. Acute RIGHT rib fractures # 8,9,10. Ribs #9 and 10 are displaced with surrounding locules of air and an associated hematoma in the posterior musculature measuring 4.1 cm. Old left rib fractures. 2. Very small RIGHT anterior pneumothorax. 3. Moderate to large RIGHT pleural fluid with blood products with associated atelectasis. 4. Atherosclerotic disease. ABDOMEN/PELVIS: 1. Superior endplate compression at L5, age indeterminate. Osteopenia. Right total hip arthroplasty. 2. Other: Cholecystectomy. Bilateral adrenal gland adenomas. Left renal cyst. Perinephric stranding. Colonic diverticulosis. Atherosclerotic disease. 3. Additional findings, as above. CRITICAL TEST COMMUNICATION: I called the emergency department around 11:26pm and spoke with SHAKEEL Saxena. Report Dictated on Electronically Signed By: Manisha Conroy MD Electronically Signed Date/Time: 12/12/2023 11:28 PM EDT ECG 12 lead Sinus tachycardia Abnormal R-wave progression, late transition Inferior infarct, old no stemi Electronically Signed On 12-12-2023 23:13:52 EDT by Marbin Flores Patient Active Problem List Diagnosis Mood disorder (HCC) Closed fracture of one rib of left side Hemothorax Anticoagulated H/O: CVA (cerebrovascular accident) Tobacco dependence syndrome Hip fracture requiring operative repair, right, closed, initial encounter ([facility]) Memory impairment Examination of participant in clinical trial Malignant neoplasm of upper-outer quadrant of female breast (HCC) Fall Leukocytosis Closed fracture of hip (HCC) Unsteady gait Type 2 diabetes mellitus with hyperglycemia, with long-term current use of insulin ([facility]) Acute cystitis E-coli UTI Obesity History of radial keratotomy Psychophysiological insomnia Hypomagnesemia Essential hypertension Mixed anxiety depressive disorder Hyperlipidemia Atrial fibrillation ([facility]) Noncompliance with treatment regimen Weakness UTI (urinary tract infection) Hyperglycemia Closed fracture of multiple ribs of right side, initial encounter ASSESSMENT: 78 y.o. female s/p fall on Xarelto with right 8,9,10 rib fractures, small right anterior pneumothorax, large right hemothorax PLAN: Neuro/Spine: - Multimodal pain control: Ajay tylenol, PRN oxy, dilaudid, PO robaxin, lidocaine patches - Acute pain consult for rib block, Rib block not completed - Palliative care, geriatrics consult Hx of Depression - Cont home Effexor - DC Remeron, patient not taking - Follow Geriatrics note for updated medications - Restart vitamins and mag oxide HEENT: - No acute issues Cardiovascular: Hx of Afib - Hold Eliquis - Telemetry Hypotension in the setting of acute rib fractures and hemothorax - MAP goal > 60 - Cont home pravastatin - Positive Orthostatic BP measurement 12/13, will repeat 12/14 HTN - Hold losartan HLD - Home Statin Pulmonary: R hemothorax - Chest tube to water seal, continue to monitor output - EZ pap, IS, acapella - Ajay duoneb - Daily CXR - rCT Chest 12/14 with retained hemothorax - Plan for VATS tomorrow w/possible cryoablation possible FEN/GI: - Regular diet, carb controlled with Ensure - DC fluids - Bowel regimen: Miralax daily prn, Senna nightly : - Monitor UOP Heme: - Daily CBC - Transfuse for Hgb < 8 - 1 unit pRBCs 12/13 - Hold Xarelto - Daily CBC ID: Chest tube placement - S/p ancef 24hr Endo: Hx of DM - Home lantus 15 BID - continue SSI - POC glucose -HA1c Lines/Devices: - PIV - R CT to WS Prophylaxis: DVT: SCD only, Restart lovenox Has DVT PPX been started? No If no, why? Bleeding disorder GI: none indicated Pressure Ulcer: turn self Musculoskeletal: - PT/OT as able Medications Reconciled- Yes [x] NO [], why Disposition: T2 Stepdown status Birgit Ramsey MD General Surgery PGY-1 Associated attestation - Layne Mcdowell MD - 12/16/2023 10:03 AM EDT ~~~~~~~~~~~~~~~~~~~~~~~~~~~~~~~~~~ ~~~~~~~~~~~~~~~~~~~~~~~~~~~ ATTENDING ADDENDUM Patient Active Problem List Diagnosis Mood disorder (HCC) Closed fracture of one rib of left side Hemothorax Anticoagulated H/O: CVA (cerebrovascular accident) Tobacco dependence syndrome Hip fracture requiring operative repair, right, closed, initial encounter ([facility]) Memory impairment Examination of participant in clinical trial Malignant neoplasm of upper-outer quadrant of female breast (HCC) Fall Leukocytosis Closed fracture of hip (HCC) Unsteady gait Type 2 diabetes mellitus with hyperglycemia, with long-term current use of insulin (HCC) Acute cystitis E-coli UTI Obesity History of radial keratotomy Psychophysiological insomnia Hypomagnesemia Essential hypertension Mixed anxiety depressive disorder Hyperlipidemia Atrial fibrillation (HCC) Noncompliance with treatment regimen Weakness UTI (urinary tract infection) Hyperglycemia Closed fracture of multiple ribs of right side, initial encounter I independently saw the above patient and reviewed the recent events, imaging, labs, vital signs; I performed a physical exam and ROS on the same date of service as above. My findings agree with the above note except for any details corrected below. A complete review of systems was obtained and is negative except as stated in HPI. 78F s/p multiple falls, states legs give out. -Acute R rib fractures # 8,9,10 (ribs 9,10 displaced), w/ associated hematoma in the posterior chest wall -Large R hemothorax -Small R pneumothorax -Chronic left rib fractures (5,6,10,11) -Age indeterminate L5 super endplate fracture 24h Rib block in OR tomorrow IS - 750 Poor cough due to pain Orthostatics - neg CT chest with IV contrast today to assess for retained cata - retained cata - CATA plan for R VATS possible cryo and rib plating Restart vitamins Lantus held due to poor PO intake, restart at 15 this morning SDS today Neurological system - Multimodal pain control - Delirium precautions #depression - home venlafaxine xr 150 mg BID #insomnia - restart home trazodone 50 mg prn Palliative and geriatrics -Recommend to restart Vitamin D 1000 units daily, Vitamin B12 500 mcg daily, and folic acid 400 mcg daily -Watch for need to restart losartan 25 mg daily and magnesium oxide 400 mg daily - on [employer] , not on now. - Consider weaning slower so adding venlafaxine XR 75 mg at 4pm ( rather than bedtime as she takes at home since it can cause insomnia. S/p multiple falls - orthostatics - neg Circulatory system #Shock - resolved - likely mixed 2/2 fall, hemorrhagic/hypovolemia, medication # H/o A-fib on Xarelto - hold Xarelto due to bleeding risk # H/o HTN on home losartan 25 mg - cont to hold # H/o HLD: continue home statin and fenofibrate Respiratory system #Right rib 8-10 displaced, at risk of worsening respiratory status given poor cough and pain with poss retained cata - large right CATA/PTX - cont suction on CT - water seal - monitor out --> serosang - Daily CXR - Aggressive pulmonary hygiene Gastrointestinal system - Diet - Bowel regimen #Vitamin D deficiency Renal function - Strict I/Os Elevated creatinine - resolved, acute renal insufficiency Immunologic system - Monitor for fevers Hematologic system - Monitor hemoglobin Acute blood loss anemia -monitor - stable Endocrine system - Monitor glucose T2DM - on home lantus (30 U BID) --> decrease 15 U - hypoglycemia this morning - aspart 10 U TID with meals (HOLD) - ISS Integumentary system (GI and cutaneous) - Skin checks Musculoskeletal system - PTOT - SNF Ppx - Lovenox 30 BID Level of Medical Decision Making: risk of morbidity from additional diagnostic testing or treatment [x]High []Moderate []Low Personally Reviewed/Independently interpreted patient's: [x]Epic notes [x]Radiology studies [x]Labs []EKG []Ordering tests []Other Discussed/ With: [x]Patient/Family []RN []Consultants []SW/TCC []Other I spent total time 51 minutes reviewing previous notes (pall, PT), test results, and face to face with Beverly Agee discussing the diagnosis (retained hemothorax) and importance of compliance with the treatment plan as well as documenting on the day of the visit. Time was spent, Reviewing medical record including recent tests and results Ordering prescription medications/tests and procedures Communicating results to the patient/family/caregiver Counseling/educating the patient/family/caregiver Documenting clinical information the patient's electronic record Coordination of care for the patient Performing a medical appropriate exam and evaluation Layne Mcdowell MD, FACS Division of Trauma Department of Surgery [facility] ~~~~~~~~~~~~~~~~~~~~~~~~~~~~~~~~~~ ~~~~~~~~~~~~~~~~~~~~~~~~~~~ This note may have been dictated using [employer] Edition 2.6 and/or Tag & See Voice Recognition Feature. The document was proofread; however, unrecognized voice recognition sieve grader tender errors may be present. [facility] Respiratory Care Department Progress Note As part of the Respiratory Assessment Program (RAP), the following Respiratory Therapist evaluation has been completed, including a chart review and clinical/physical assessment. Respiratory Therapist RAP Evaluation Guideline Points 0 1 2 3 4 Points Strongly Consider History Factor No Pulmonary conditions Stable Pulmonary condition(s) Surgery or Intervention that may impact Pulmonary system (at risk) Surgery or Intervention that is impacting Pulmonary system Active Exacerbation of Pulmonary Condition 0 Respiratory Pattern Regular, RR= 12-18 WEST or Increased RR= 19-24 Irregular, or RR= 25-30 SOB, talk in short sentences, or RR= 31-35 Severe SOB, accessory muscle use, one word answers, or RR>35 0 Aerosol Med(s), High Flow O2 Breath Sounds Clear Diminished in 1 lobe Diminished in ? 2 lobes Adventitious breath sounds Coarse crackles, Wheezes, or Diminished in >2 lobes 0 Aerosol Med(s), Bronchial Hygiene, Hyperinflation Cough & Sputum Strong cough, no secretion retention or production Weak cough, no secretion retention or production Weak cough, w/ production (less often than Q2hr), or secretion retention No cough, w/ secretion retention or production (less often than Q2hr) Significant secretion production (more often than Q2hr) or mucus plug 0 Aerosol Med(s), Bronchial Hygiene, Hyperinflation Level of Activity Ambulatory Ambulatory with Assist Up in chair or edge of bed (dangle) Non-ambulatory, bedridden with active ROM Completely paralyzed or without active ROM 0 Triage 5 0-2 Triage 4 3-5 Triage 3 6-10 Triage 2 11-14 Triage 1 ?15 Total 0 Triage Score = 5 TRIAGE SCORING - SUGGESTED FREQUENCIES Aerosol Therapy Bronchial Hygiene Hyperinflation Triage Score Q4h & PRN 1 Q4hWA (QID) & PRN 2 TID & PRN 3 BID & PRN 4 PRN 5 Therapy(s) Indicated Yes/No Aerosol Medication no Hyperinflation no Bronchial Hygiene no High Flow Oxygen no Based on this RAP evaluation the following therapy is being initiated: duo At the following frequency: prn Comments: Pt does IS, very light pain today, on room air, slight cough, change to prn Thank you for involving Respiratory in the care of this patient, Discussed with anesthesiologist. Plan for sunday12/17/23 due to OR burden on the weekend. Images from the original note were not included. Daily SICU Progress Note Resident 12/15/2023 6:19 AM Admit Date: 12/12/2023 HPI: 78 y.o. female status post fall 4 days ago. The incident happened on 12/10/23 at home. When the event happened the patient fell and hit a table. She was seen by her PCP on 12/10 who ordered CXR, which showed rib fracture. She presented to [place] ED with SOB, hypoxic, and tachycardic. CT showed large R effusion likely hemothorax. She was directly admitted to T2 ICU. The patient reports mild right chest pain and SOB. No LH or dizziness. Has been having frequent falls recently. She did not lose consciousness and recalls the fall, it was due to weakness in her legs. Doesn't think she hit her head. No other preceding symptoms. Last took Xarelto 1 day ago. Patient notes that she lives at home by herself. PROCEDURES: 12/12 - R CT placement CHIEF COMPLAINT: Right rib pain PREVIOUS 24 HOUR EVENTS: S/p 1 unit pRBCs Lovenox held for possible rib block Consults: IP CONSULT TO ANESTHESIOLOGY IP CONSULT TO PALLIATIVE CARE IP CONSULT TO GERIATRICS IP WOUND CARE NURSE CONSULT TO EVAL MEDICATIONS: Current Facility-Administered Medications: acetaminophen (Tylenol) tablet 1,000 mg, 1,000 mg, Oral, q8h, Lucille Soto MD, 1,000 mg at 12/15/23 0317 dextrose 5 % infusion, 100 mL/hr, IntraVENous, PRN, Evan Richardson MD dextrose 50 % solution 12.5 g, 12.5 g, IntraVENous, PRN, Lucille Soto MD [Held by provider] enoxaparin (Lovenox) syringe 30 mg, 30 mg, SubCUTAneous, q12h, Linda Bueno MD, 30 mg at 12/14/23 1745 ergocalciferol (Vitamin D2) capsule 1.25 mg, 1.25 mg, Oral, Weekly, Cass Howe, DYE MAKER - PROGRAM DEVELOPMENT MANAGER glucagon (human recombinant) injection 1 mg, 1 mg, IntraMUSCular, PRN, Evan Richardson MD glucose oral gel 15 g, 15 g, Oral, PRN, Lucille Soto MD glucose oral gel 15 g, 15 g, Oral, PRN, Evan Richardson MD, 15 g at 12/15/23 0312 HYDROmorphone (Dilaudid) injection 0.25 mg, 0.25 mg, IntraVENous, q4h PRN, 0.25 mg at 12/13/231 OR HYDROmorphone (Dilaudid) injection 0.5 mg, 0.5 mg, IntraVENous, q4h PRN, Lucille Soto MD, 0.5 mg at 12/14/23 0308 insulin glargine (Lantus) injection 30 Units, 30 Units, SubCUTAneous, BID, Radha Bond PA-C, 30 Units at 12/14/23 204 Insulin Lispro (Humalog) injection 0-18 Units, 0-18 Units, SubCUTAneous, TID WC, 9 Units at 12/14/23 1745 AND Insulin Lispro (Humalog) injection 0-18 Units, 0-18 Units, SubCUTAneous, Nightly, Linda Bueno MD ipratropium-albuterol (Duo-Neb) 0.5-2.5 mg/3 mL nebulizer solution 3 mL, 3 mL, Nebulization, BID, Lucille Soto MD, 3 mL at 12/14/23 1207 lactated Ringer's (LR) infusion, 100 mL/hr, IntraVENous, Continuous, Linda Bueno MD, Last Rate: 100 mL/hr at 12/14/23 1128, 100 mL/hr at 12/14/23 1128 Lidocaine 4 % patch 1 patch, 1 patch, TransDERmal, Daily, Birgit Ramsey MD, 1 patch at 12/14/23 0853 melatonin tablet 5 mg, 5 mg, Oral, Nightly, Lucille Soto MD, 5 mg at 12/14/232040 naloxone (Narcan) injection 0.4 mg, 0.4 mg, IntraVENous, PRN, Lucille Soto MD ondansetron ODT (Zofran-ODT) disintegrating tablet 4 mg, 4 mg, Oral, q8h PRN OR ondansetron (Zofran) injection 4 mg, 4 mg, IntraVENous, q6h PRN, Lucille Soto MD oxyCODONE (Roxicodone) immediate release tablet 5 mg, 5 mg, Oral, q6h PRN, 5 mg at 12/13/23 0509 OR oxyCODONE (Roxicodone) immediate release tablet 10 mg, 10 mg, Oral, q6h PRN, Lucille Soto MD, 10 mg at 12/14/23 0024 polyethylene glycol (PEG) 3350 (Miralax) packet 17 g, 17 g, Oral, Daily PRN, Lucille Soto MD pravastatin (Pravachol) tablet 80 mg, 80 mg, Oral, Daily, Lucille Soto MD, 80 mg at 12/14/23 0853 sodium chloride 0.9 % infusion, 250 mL/hr, IntraVENous, PRN, Linda Bueno MD sodium chloride 3 % hypertonic nebulizer solution 4 mL, 4 mL, Nebulization, PRN, Evan Richardson MD stomahesive in petrolatum (ET Mix), , Topical, q8h, RADHA Toth CNP, Given at 12/15/23 0317 stomahesive in petrolatum (ET Mix), , Topical, PRN, RADHA Toth CNP traZODone (Desyrel) tablet 50 mg, 50 mg, Oral, Nightly PRN, Linda Bueno MD, 50 mg at 12/14/232040 venlafaxine XR (Effexor XR) 24 hr capsule 150 mg, 150 mg, Oral, BID, Linda Bueno MD ARE THERE PERTINENT UPDATES TO PAST,FAMILY, OR SOCIAL HISTORY?: No Subjective: Patient reports she is feeling better today than yesterday. Denies any SOB or chest pain. Tolerating diet Review of Systems Constitutional: Negative for chills and fever. HENT: Negative for congestion and drooling. Eyes: Negative for redness and visual disturbance. Respiratory: Negative for cough and choking. Cardiovascular: Negative for chest pain and leg swelling. Gastrointestinal: Negative for nausea and vomiting. Skin: Negative for rash and wound. Neurological: Negative for dizziness and light-headedness. Psychiatric/Behavioral: Negative for agitation and confusion. Objective: Patient Vitals for the past 24 hrs: BP Temp Temp src Pulse Resp SpO2 12/15/23 0600 106/50 -- -- 72 24 95 % 12/15/23 0500 (!) 102/47 -- -- 54 16 99 % 12/15/23 0400 (!) 91/42 -- -- 55 16 99 % 12/15/23 0300 (!) 101/37 -- -- 53 15 99 % 12/15/23 0200 (!) 107/38 -- -- 62 16 100 % 12/15/23 0100 (!) 97/42 -- -- 59 16 100 % 12/15/23 0000 (!) 114/46 -- -- 60 18 100 % 12/14/23 2303 139/94 -- -- 69 17 98 % 12/14/23 2200 110/64 -- -- 69 25 95 % 12/14/23 2100 118/50 -- -- 70 18 99 % 12/14/23 2000 102/54 -- -- 79 17 100 % 12/14/23 1900 116/57 -- -- 87 23 97 % 12/14/23 1800 (!) 119/48 -- -- 82 18 98 % 12/14/23 1715 99/63 36.3 C (97.3 F) -- 67 22 -- 12/14/23 1700 -- -- -- 80 20 100 % 12/14/23 1600 114/52 -- -- 85 18 98 % 12/14/23 1517 110/53 36.2 C (97.1 F) -- 88 23 -- 12/14/23 1515 110/53 -- -- 91 18 100 % 12/14/23 1500 117/53 -- -- 86 20 99 % 12/14/23 1457 (!) 101/47 36.2 C (97.1 F) -- 87 21 -- 12/14/23 1400 111/55 -- -- 88 22 90 % 12/14/23 1300 (!) 113/48 -- -- 81 17 97 % 12/14/23 1200 110/52 -- -- 71 17 99 % 12/14/23 1100 106/50 -- -- 69 14 100 % 12/14/23 1000 -- -- -- 89 20 98 % 12/14/23 0900 101/55 -- -- 88 24 98 % 12/14/23 0802 (!) 119/42 -- -- 84 22 99 % 12/14/23 0801 -- -- -- 91 20 -- 12/14/23 0800 -- 36.7 C (98 F) Temporal -- -- -- 12/14/237 -- -- -- 91 23 -- 12/14/236 97/54 -- -- 90 (!) 28 -- 12/14/235 -- -- -- 86 23 -- 12/14/234 -- -- -- 78 24 -- 12/14/233 -- -- -- 71 (!) 26 100 % 12/14/232 115/52 -- -- 73 24 100 % 12/14/231 -- -- -- 71 20 100 % 12/14/230 -- -- -- 73 20 100 % 12/14/2349 -- -- -- 82 21 100 % 12/14/2348 -- -- -- 67 19 100 % 12/14/2347 -- -- -- 78 18 100 % 12/14/2346 -- -- -- 67 21 100 % 12/14/2345 -- -- -- 65 23 100 % 12/14/2344 -- -- -- 57 17 100 % 12/14/2343 -- -- -- 62 16 100 % 12/14/2342 -- -- -- 61 17 100 % 12/14/2341 -- -- -- 69 15 100 % 12/14/23 0740 -- -- -- 63 17 100 % 12/14/2339 -- -- -- 62 15 100 % 12/14/23 0738 -- -- -- 58 18 100 % 12/14/23 0737 -- -- -- 60 16 100 % 12/14/23 0736 -- -- -- 58 18 100 % 12/14/23 0735 -- -- -- 65 19 100 % 12/14/23 0734 -- -- -- 62 18 100 % 12/14/23 0733 -- -- -- 62 17 100 % 12/14/23 0732 -- -- -- 61 19 100 % 12/14/23 0731 -- -- -- 63 16 100 % 12/14/23 0730 -- -- -- 64 17 100 % 12/14/23 0724 (!) 136/122 -- -- 67 18 -- Intake/Output Summary (Last 24 hours) at 12/15/2023 0619 Last data filed at 12/15/2023 0615 Gross per 24 hour Intake 2541 ml Output 2865 ml Net -324 ml I/O this shift: In: 917 [I.V.:917] Out: 2170 [Urine:2000; Chest Tube:170] Chest Tubes: R: YesOutput: 690cc sanguinous output Air Leak: No Suction PHYSICAL: General Appearance: Awake, No acute distress, and Appears well-developed and well-nourished Head: Normocephalic and atraumatic Eyes: Sclera anicteric , EOM's grossly normal, and Conjunctivae normal ENT: Nares clear , Moist Mucous Membranes, Oropharynx clear, no blood , and Midface is stable. Neck: There is no cervical midline tenderness to palpation, step-offs or acute deformities, Trachea midline , No Thyromegaly , and No Crepitus Chest: Comments: right chest wall hematoma with ecchymosis, tenderness to palpation Right chest tube in place to suction without air leak, serosanguinous output Lungs: Clear and unlabored Respirations Heart/Cardiovascular: Rhythm Regular and Tachycardia Abdomen: Soft and Non-Tender : Normal external genitalia Rectal: Positive Gluteal Squeeze Musculoskeletal: Upper and lower extremities have no acute deformities and they are non-tender to palpation, Good ROM , and Log-roll negative for pain Extremities: Cyanosis Absent , Radial Pulses palpable , Posterior Tibial Pulses Palpable , and Dorsalis Pedis Pulses Palpable Skin: Warm Neurologic: Alert and oriented to person, place, and time. , CN II-XII grossly normal, no focal deficits. , Moving all extremities willfully, able to wiggle all fingers and toes. , Sensation grossly intact throughout. , and Strength 5/5 throughout. Psych: Affect Normal Data CBC with Differential: Lab Results Component Value Date WBC 11.1 (H) 12/14/2023 RBC 2.78 (L) 12/14/2023 HGB 8.2 (L) 12/14/2023 HCT 24.1 (L) 12/14/2023 PLT 183 12/14/2023 CMP: Lab Results Component Value Date NA 133 (L) 12/14/2023 K 3.9 12/14/2023 CL 106 12/14/2023 CO2 25 12/14/2023 BUN 29 (H) 12/14/2023 CREATININE 0.84 12/14/2023 GLUCOSE 78 12/14/2023 PROT 6.5 12/12/2023 CALCIUM 9.3 12/14/2023 BILITOT 0.8 12/12/2023 ALKPHOS 52 12/12/2023 AST 18 12/12/2023 ALT 13 12/12/2023 BMP: Hepatic Function Panel:Ionized Calcium: No components found for: "IONCA" Magnesium: No results found for: MG Phosphorus: No results found for: PHOS PT/INR: Lab Results Component Value Date PROTIME 12.1 (H) 12/13/2023 INR 1.1 12/13/2023 PTT: No results found for: "APTT"[APTT Last 3 Troponin: Lab Results Component Value Date TROPONINI <0.012 12/13/2023 TROPONINI <0.012 12/13/2023 TROPONINI <0.012 12/12/2023 Radiology: ECG 12 lead Result Date: 12/14/2023 Sinus rhythm Atrial premature complex Left anterior fascicular block Electronically Signed On 12-14-2023 08:24:18 EDT by James Birmingham POCT glucose meter Result Date: 12/13/2023 Performed by: [facility], [address] [place] [id number] CLIA ID: [id number] POCT glucose meter Result Date: 12/13/2023 Performed by: [facility], [address] [place] [id number] CLIA ID: [id number] XR chest 1 view Result Date: 12/13/2023 [facility] 1945 [id number] Exam Date/Time: 12/13/2023 04:41 Procedure: XR CHEST 1 VIEW Ordering Provider: BRASWELL LAURA Reason For Exam: s/p right chest tube insertion for hemopneumothorax CLINICAL INFORMATION: Shortness of breath. Hemopneumothorax. Right-sided chest tube now in place. Portable view of the chest at 0435 hours is provided and compared to a previous CT dated December 12, 2023. FINDINGS: A chest tube is now in place on the right. The sizable effusion is been evacuated. There is no significant pneumothorax. Emphysematous changes are noted diffusely. 1. New right-sided chest tube. 2. No pneumothorax. Report Dictated on Electronically Signed By: Chico Noguera MD Electronically Signed Date/Time: 12/13/2023 4:[address] chest abdomen pelvis without contrast Result Date: 12/12/2023 [facility] 1945 [id number] Exam Date/Time: 12/12/2023 23:06 Procedure: CT CHEST ABDOMEN PELVIS WO CONTRAST Ordering Provider: GOLDMAN AMY Reason For Exam: Fall INDICATION: 78-year-old; fall; rib pain (same day imaging demonstrated right rib#9 fracture) and difficulty breathing after a fall yesterday; fell on right side Scan Parameters: Multiple axial 1mm images were obtained of the chest and 3mm images of the abdomen and pelvis. Coronal and sagittal reconstructions were reviewed as well. Dose reduction was employed with automated exposure control. Additional reconstructed MIP images provided with 3-D postprocessing. A total of 11 image sets provided for review. CONTRAST: No IV and no oral contrast COMPARISON: Chest and right RIBS 12/11/2023; CT chest 08/01/2021 FINDINGS: CHEST: A very small right pneumothorax is present anteriorly and medially. There is a moderate to large right pleural effusion with associated blood products with compressive atelectasis and/or infiltrate. Pulmonary vascular congestion is present with septal thickening. There are multiple posterior right rib fractures including 8,9,10. Ribs #9 and 10 are displaced with surrounding locules of air. The bones are osteopenic. Old LEFT rib fractures #5,6,10,11. Ribs #6 and 10 are not united. Multilevel endplate degenerative changes are present. There is a soft tissue hematoma posterior to the right rib fractures with associated air locules within the muscle. This measures in greatest axial dimension 1.9 x 4.1 cm. The thyroid gland contour is normal. The airway is patent the tracheobronchial tree calcifications. The esophagus is decompressed with a small hiatal hernia. Dense atherosclerotic calcifications are present along the aorta and coronary arteries. There is no sizable pericardial effusion. The heart is not enlarged. There is no mediastinal, hilar, or axillary adenopathy. There is limited evaluation the breast tissue, correlate with mammography. 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 Superior endplate compression of L5 with mild height loss, age indeterminate. The gallbladder is surgically absent with clips present. The liver, pancreas, and spleen are within normal limits. A right adrenal gland with a rich adenoma measures 13 mm. There is thickening of the medial limb of the left adrenal gland versus small adenoma. There is no hydronephrosis. A left renal 14 mm cyst is present. There is thinning of the renal cortex of the right and left. The bladder contour is normal. The uterus is surgically absent. Multiple colonic diverticuli are present. Fecal retention is present. The appendix is normal. The aorta is tortuous with atherosclerotic dense calcifications. CHEST: 1. Acute RIGHT rib fractures # 8,9,10. Ribs #9 and 10 are displaced with surrounding locules of air and an associated hematoma in the posterior musculature measuring 4.1 cm. Old left rib fractures. 2. Very small RIGHT anterior pneumothorax. 3. Moderate to large RIGHT pleural fluid with blood products with associated atelectasis. 4. Atherosclerotic disease. ABDOMEN/PELVIS: 1. Superior endplate compression at L5, age indeterminate. Osteopenia. Right total hip arthroplasty. 2. Other: Cholecystectomy. Bilateral adrenal gland adenomas. Left renal cyst. Perinephric stranding. Colonic diverticulosis. Atherosclerotic disease. 3. Additional findings, as above. CRITICAL TEST COMMUNICATION: I called the emergency department around 11:26pm and spoke with SHAKEEL Saxena. Report Dictated on Electronically Signed By: Manisha Conroy MD Electronically Signed Date/Time: 12/12/2023 11:28 PM EDT ECG 12 lead Sinus tachycardia Abnormal R-wave progression, late transition Inferior infarct, old no stemi Electronically Signed On 12-12-2023 23:13:52 EDT by Marbin Flores Patient Active Problem List Diagnosis Mood disorder (HCC) Closed fracture of one rib of left side Hemothorax Anticoagulated H/O: CVA (cerebrovascular accident) Tobacco dependence syndrome Hip fracture requiring operative repair, right, closed, initial encounter (HCC) Memory impairment Examination of participant in clinical trial Malignant neoplasm of upper-outer quadrant of female breast (HCC) Fall Leukocytosis Closed fracture of hip (HCC) Unsteady gait Type 2 diabetes mellitus with hyperglycemia, with long-term current use of insulin (HCC) Acute cystitis E-coli UTI Obesity History of radial keratotomy Psychophysiological insomnia Hypomagnesemia Essential hypertension Mixed anxiety depressive disorder Hyperlipidemia Atrial fibrillation (HCC) Noncompliance with treatment regimen Weakness UTI (urinary tract infection) Hyperglycemia Closed fracture of multiple ribs of right side, initial encounter ASSESSMENT: 78 y.o. female s/p fall on Xarelto with right 8,9,10 rib fractures, small right anterior pneumothorax, large right hemothorax PLAN: Neuro/Spine: - Multimodal pain control: Ajay tylenol, PRN oxy, dilaudid, PO robaxin, lidocaine patches - Acute pain consult for rib block, possible block today - Palliative care, geriatrics consult Hx of Depression - Cont home Effexor - DC Remeron, patient not taking - Follow Geriatrics note for updated medications HEENT: - No acute issues Cardiovascular: Hx of Afib - Hold Eliquis - Telemetry Hypotension in the setting of acute rib fractures and hemothorax - MAP goal > 60 - Cont home pravastatin - Positive Orthostatic BP measurement 12/13, will repeat 12/14 HTN - Hold losartan HLD - Home Statin Pulmonary: R hemothorax - Chest tube to water seal, continue to monitor output - EZ pap, IS, acapella - Ajay duoneb - Daily CXR - rCT Chest 12/14 to assess for retained hemothorax FEN/GI: - Regular diet, carb controlled with Ensure - DC fluids - Bowel regimen: Miralax daily prn : - Monitor UOP Heme: - Daily CBC - Transfuse for Hgb < 8 - 1 unit pRBCs 12/13 - Hold Xarelto - Daily CBC ID: Chest tube placement - S/p ancef 24hr Endo: Hx of DM - Home lantus 15 BID - continue SSI - POC glucose -HA1c Lines/Devices: - PIV - R CT to WS Prophylaxis: DVT: SCD only, Hold lovenox for possible rib block Has DVT PPX been started? No If no, why? Bleeding disorder GI: none indicated Pressure Ulcer: turn self Musculoskeletal: - PT/OT as able Medications Reconciled- Yes [x] NO [], why Disposition: T2 Stepdown status Birgit Ramsey MD General Surgery PGY-1 Associated attestation - Layne Mcdowell MD - 12/15/2023 11:00 AM EDT ~~~~~~~~~~~~~~~~~~~~~~~~~~~~~~~~~~ ~~~~~~~~~~~~~~~~~~~~~~~~~~~ ATTENDING ADDENDUM Patient Active Problem List Diagnosis Mood disorder (HCC) Closed fracture of one rib of left side Hemothorax Anticoagulated H/O: CVA (cerebrovascular accident) Tobacco dependence syndrome Hip fracture requiring operative repair, right, closed, initial encounter (HCC) Memory impairment Examination of participant in clinical trial Malignant neoplasm of upper-outer quadrant of female breast (HCC) Fall Leukocytosis Closed fracture of hip (HCC) Unsteady gait Type 2 diabetes mellitus with hyperglycemia, with long-term current use of insulin (HCC) Acute cystitis E-coli UTI Obesity History of radial keratotomy Psychophysiological insomnia Hypomagnesemia Essential hypertension Mixed anxiety depressive disorder Hyperlipidemia Atrial fibrillation (HCC) Noncompliance with treatment regimen Weakness UTI (urinary tract infection) Hyperglycemia Closed fracture of multiple ribs of right side, initial encounter I independently saw the above patient and reviewed the recent events, imaging, labs, vital signs; I performed a physical exam and ROS on the same date of service as above. My findings agree with the above note except for any details corrected below. A complete review of systems was obtained and is negative except as stated in HPI. 78F s/p multiple falls, states legs give out. -Acute R rib fractures # 8,9,10 (ribs 9,10 displaced), w/ associated hematoma in the posterior chest wall -Large R hemothorax -Small R pneumothorax -Chronic left rib fractures (5,6,10,11) -Age indeterminate L5 super endplate fracture Acute pain service consult for rib block - reassess today IS - 750 Poor cough due to pain Serosang output from CT - 170 ml serosang overnight Orthostatics - recheck today CT chest with IV contrast today to assess for retained cata - if retained CATA plan for VATS Sunday CT to water seal today - am CXR DC IVF SDS today Neurological system - Multimodal pain control - Delirium precautions #depression - home venlafaxine xr 150 mg BID #insomnia - restart home trazodone 50 mg prn Palliative and geriatrics -Recommend to restart Vitamin D 1000 units daily, Vitamin B12 500 mcg daily, and folic acid 400 mcg daily -Watch for need to restart losartan 25 mg daily and magnesium oxide 400 mg daily - on [employer] , not on now. - Consider weaning slower so adding venlafaxine XR 75 mg at 4pm ( rather than bedtime as she takes at home since it can cause insomnia. S/p multiple falls - orthostatics - + -Recheck today Circulatory system #Shock - resolved - likely mixed 2/2 fall, hemorrhagic/hypovolemia, medication # H/o A-fib on Xarelto - hold Xarelto due to bleeding risk # H/o HTN on home losartan 25 mg (hold while hypotensive) # H/o HLD: continue home statin and fenofibrate Respiratory system #Right rib 8-10 displaced, at risk of worsening respiratory status given poor cough and pain with poss retained cata - large right CATA/PTX - cont suction on CT - water seal today - monitor out --> serosang - Daily CXR - Aggressive pulmonary hygiene -Will require repeat CT chest likely today Gastrointestinal system - Diet - Bowel regimen #Vitamin D deficiency Renal function - Strict I/Os Elevated creatinine - improved, acute renal insufficiency Immunologic system - Monitor for fevers Hematologic system - Monitor hemoglobin Acute blood loss anemia -monitor - repeat h/h in pm -> 7.9 and hypotension --> 1 prbc yesterday - improved Endocrine system - Monitor glucose T2DM - on home lantus (30 U BID) --> decrease 15 U - hypoglycemia this morning - aspart 10 U TID with meals (HOLD) - ISS Integumentary system (GI and cutaneous) - Skin checks Musculoskeletal system - PTOT Ppx - Lovenox 30 BID Level of Medical Decision Making: risk of morbidity from additional diagnostic testing or treatment [x]High []Moderate []Low Complexity: Acute or chronic illness posing a threat to life (HIGH) Personally Reviewed/Independently interpreted patient's: [x]Epic notes [x]Radiology studies [x]Labs []EKG []Ordering tests []Other Discussed/ With: [x]Patient/Family []RN []Consultants []SW/TCC []Other I spent total time 52 minutes reviewing previous notes (pall, wound, geriatrics), test results, and face to face with Beverly Agee discussing the diagnosis (multiple rib fractures, cata) and importance of compliance with the treatment plan as well as documenting on the day of the visit. Time was spent, Reviewing medical record including recent tests and results Ordering prescription medications/tests and procedures Communicating results to the patient/family/caregiver Counseling/educating the patient/family/caregiver Documenting clinical information the patient's electronic record Coordination of care for the patient Performing a medical appropriate exam and evaluation Layne Mcdowell MD, FACS Division of Trauma Department of Surgery [facility] ~~~~~~~~~~~~~~~~~~~~~~~~~~~~~~~~~~ ~~~~~~~~~~~~~~~~~~~~~~~~~~~ This note may have been dictated using [employer] Edition 2.6 and/or Tag & See Voice Recognition Feature. The document was proofread; however, unrecognized voice recognition sieve grader tender errors may be present. Images from the original note were not included. PHYSICAL THERAPY [facility] Treatment Note Name/MRN: Beverly Agee ([id number]) Date of : 1945 Age: 78 y.o. Room/Bed: T2/T2 A Discharge Recommendation: [facility] Facility Equipment Needed: No Prior Level of Function ADL Assistance: Independent Ambulation Assistance: Independent Device(s) used: front wheeled walker Transfer Assistance: Independent Assessment Pt progressing with mobility this date, remains limited d/t pain in R chest from rib fractures. She remains at high risk for falls. Would continue recommending SNF at discharge. Subjective Pt seated in recliner. Agreeable to PT session. Cleared by nursing Pain: Benjamin-Yu Pain Ratin = Hurts whole lot Pain Location: R chest (mainly with coughing) Medical Precautions: No active isolations Proper PPE donned/doffed in accordance with facility standards. Fall Risk: Loyd Fall Risk Score: 70 (High Risk) Precautions/Restrictions: Lines/Drains/Airways: PIV, tele, chest tube, purewick Overall Cognitive Status: Exceptions - Following commands: follows one step commands with increased time and follows one step commands with repetition - Memory: decreased short term memory Overall Orientation Status: Oriented to Place and Oriented to Person Family/Caregiver Present: none Objective Ambulation Ambulation 1 Assistive device(s) used: front wheeled walker Assist level: Min Assist Distance (ft): 15' + 28' Quality of gait: shuffling, narrow LUCA, slow savanna, FWW anterior to LUCA and slight correction with cuing. Transfers/Mobility Sit to stand: Min Assist, Mod Assist Stand to sit: Min Assist Min A from chair, Mod A from toilet with cuing for hand placement for each stand Device(s) used: front wheeled walker Exercises Exercises Gluteal Sets: x10 Hip Flexion: x10 BLE Knee Long Arc Quad: x10 BLE Ankle Pumps: x10 BLE Comments: rest break required between each therex d/t SpO2 dropping to 87-89% with therex. Pursed lip breathing with rise to 95% Other exercises Other exercises?: Yes Other exercises 1: IS 2x5 to 750mL Plan Continue acute PT per plan of care. Safety/Education Safety Safety Devices in place: call light within reach, left in chair, gait belt, patient at risk for falls, and nurse notified Restraints: No Education Education Given To: patient Education Provided: PT Role, PT Goals, Plan of Care, Home Exercise Program, Transfer Training, and Equipment Education Method: Verbal Barriers to Learning: None Education Outcome: Verbalized Understanding Outcome Measures AM-PAC AM-PAC Inpatient Mobility Raw Score (No Stairs) : 15 JH-HLM -HLM Score: Walked 25 ft or more (i.e. walked outside of room) Goals Patient Stated Goal: to decrease pain Encounter Problems Encounter Problems (Active) Mobility Patient will ambulate 75 feet with supervision and least restrictive device in order to improve safety and independence with mobility. (Progressing) Start: 12/13/23 Expected End: 01/10/24 Patient will ascend and descend 3 stairs with least restrictive device and supervision in order to safely negotiate home. (Not Addressed) Start: 12/13/23 Expected End: 01/10/24 Transfers Patient will perform bed mobility with supervision in order to improve independence and prepare for out of bed mobility. (Progressing) Start: 12/13/23 Expected End: 01/10/24 Patient will complete functional transfer with least restrictive device with supervision in order to prepare for ambulation. (Progressing) Start: 12/13/23 Expected End: 01/10/24 Therapy Time Individual Co-treatment Time In 0839 Time Out 0914 Minutes 35 Timed Code Treatment Minutes: (1 FA, 1 TP) Mariely Saez PT Images from the original note were not included. Palliative Care Progress Note Chief Complaint: Beverly Agee is a 78 y.o. female with chief complaint of fall. Palliative Care provider will follow-up on 12/16 or . Assessment/Plan Fall, initial encounter - 12/11/23 - worsening breathing prompting [facility] and [facility] ICU admission 12/12/23 - resultant in displaced rib fractures and hemothorax - tells me she has been falling more frequently at home, her knees just give out, appears 2020 was seen post fall with L rib fractures Rib fractures/hemothorax - per SICU: chest tube placed 12/13/23, duonebs, lidocaine patch - education that despite pain does need to do IS often to help prevent PNA Acute pain due to trauma - per SICU: scheduled tylenol and methocarbamol - per SICU: Prn hydromorphone and oxycodone--using both appropriately, is not oversedated - OARRS reviewed, is naive to opiates but pain is severe, she is not oversedated from medications - pain improved today compared to yesterday, still worst with cough Debility - PT/OT when able - 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, getting more forgetful per her - was able to dress and bathe herself, able to do light house keeping - up in bedside chair today - PT recommending SNF, she is open to this had been at [facility] before and would return if needed to make home more successful HX afib/CVA, HTN, HLD - prior on rivaroxaban--held for rib block with pain service - per SICU: home meds at discretion Risk for constipation - typically has BM daily, last 12/12/23 - due to immobility and opiates - per SICU: has polyethylene glycol prn, drinks enough water - hopeful to have BM today Palliative Care Encounter -DNRCCA-DNI - HCPOA is son Charbel, she does have capacity to make medical decisions for herself - asked if has [place] DNR form, she believes she does but uncertain, aware I will fill out form and place on paper chart for portability - will continue to follow for ongoing monitoring of progression of Pain - will continue to evaluate test results related to fall with rib fractures , medication effectiveness for Pain, response to treatment of fall with rib fractures and hemothorax - follow Total of 35 minutes spent on this encounter including Chart review, Patient visit and exam, Documentation in EHR, Care coordination, Communicating with primary attending or other consultants, and Counseling and educating patient/family/caregiver. Discharge planning: Not ready for discharge due to medical instability Patient meets criteria for general inpatient hospice care including the following: N/A - Palliative Care Patient Referrals to: None Discussed patient and the plan of care with the other interdisciplinary team (IDT) members of Palliative Care Team, and with Primary Attending, Patient, and Floor Nurse Insert attestation statement here if applicable (.disupervision) or (.npattest) Subjective: Subjective/Events Since last seen: continues with ICU level of care, she is working with therapy, sitting up in bedside chair, still with pain but improved compared to yesterday, no CP, abdominal pain, breathing not labored, no nausea, vomiting, appetite good today, last BM 12/12/23 Beverly Agee is a 78 y.o. female living alone at home, independent, more frequent falls as knees just give out, PMHx includes: afib on OAC, breast cancer, CVA, depression, HTN, HLD, DM2, suffered fall against table resultant in R sided rib fractures, seen at urgent care day of fall. Worsening pain and increased work of breathing went to [facility] CT chest revealing hemothorax and transferred to [facility] T2 ICU level of care to trauma service, requiring chest tube insertion this morning. Given elderly fall with rib fractures palliative care consulted for goals of care. Goals of care:Continue Current Management Functional Assessment: PPS: 80% Advance Directives: DNR-CCA Surrogate: Child Prognosis: unknown Spiritual assessment: No spiritual distress identified Bereavement and grief: Grief Issues Not Identified Review of Systems ROS: See palliative care ROS/ESAS below; All other systems were reviewed and are negative. Sandoval Symptom Assessment Score Sandoval Score Pain Score 6 Tiredness Score 0 Nausea Score 0 Depression Score 0 Anxiety Score 0 Drowsiness Score 0 Anorexia Score (0= eating well, 10= not eating) 0 Wellbeing Score (10= worst sense of well-being) 0 Constipation 2 Dyspnea Score (0= no shortness of breath) 3 FLACC Scale (For Pain Assessment of the Non-Verbal Patient) Patient is verbal Assessed by: patient and provider. Social history: [place] status: no Marital status: Living status: alone Work history: retired [employer] Family Meeting: (if discussing Advanced Care Planning, include .PALLACP) Participants: none held Family meeting was held to discuss:N/A Objective: Physical Exam BP 110/52 Pulse 71 Temp 36.7 C (98 F) (Temporal) Resp 17 Ht 5' 3" (1.6 m) Wt 160 lb (72.6 kg) SpO2 99% BMI 28.34 kg/m Physical Exam Vitals and nursing note reviewed. Constitutional: Appearance: She is ill-appearing. HENT: Head: Normocephalic and atraumatic. Nose: Nose normal. Mouth/Throat: Mouth: Mucous membranes are moist. Eyes: General: Right eye: No discharge. Left eye: No discharge. Pupils: Pupils are equal, round, and reactive to light. Cardiovascular: Rate and Rhythm: Normal rate and regular rhythm. Pulses: Normal pulses. Heart sounds: Normal heart sounds. No murmur heard. Comments: No edema B post tib/dorsalis pedis palpable Pulmonary: Effort: Pulmonary effort is normal. Breath sounds: Decreased breath sounds present. Comments: R chest tube Abdominal: General: Bowel sounds are normal. There is no distension. Palpations: Abdomen is soft. There is no mass. Musculoskeletal: Cervical back: Normal range of motion and neck supple. Right lower leg: No edema. Left lower leg: No edema. Skin: General: Skin is warm and dry. Comments: fragile Neurological: General: No focal deficit present. Mental Status: She is alert and oriented to person, place, and time. Psychiatric: Mood and Affect: Mood normal. Behavior: Behavior normal. Behavior is cooperative. Comments: No agitation Current Medications: Inpatient medications reviewed: yes Home medications reviewed: yes OARRS Reviewed: copied from initial: Yes-tramadol 50mg last filled #60(15D) filled 08/10/23 24 Hour PRN Meds: hydromorphone 0.25mg times 2, 0.5mg times 1, oxycodone 10mg times 2 Results/Verification of Data Review Objective data reviewed (be specific which labs, imaging reports with dates reviewed): MAR/vitals/labs/CXR report reviewed 12/14/23 Data in Support of Terminal Illness: Is patient hospice appropriate? TBD Verified with patient's son Charbel that last dose of Xarelto was Sunday morning 12/11. Xarelto must be held 72 hours prior to rib block. Possible block tomorrow pending availability. Thank you. Images from the original note were not included. [facility] Wound Care Progress Note Bveerly Agee AGE: 78 y.o. GENDER: female : 1945 Subjective: HISTORY of PRESENT ILLNESS HPI Beverly Agee is a 78 y.o. female who presents for a wound follow up. HPI: 78 y.o. female status post fall 4 days ago. The incident happened on 12/10/23 at home. When the event happened the patient fell and hit a table. She was seen by her PCP on 12/10 who ordered CXR, which showed rib fracture. She presented to [place] ED with SOB, hypoxic, and tachycardic. CT showed large R effusion likely hemothorax. Wound Care consulted for pressure injury. Patient resting in chair at time of visit. Patient reports treatment completed prior to this visit. 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 Depression History of blood transfusion Hyperlipidemia Hypertension Type II or unspecified type diabetes mellitus without mention of complication, not stated as uncontrolled (HCC) PAST SURGICAL HISTORY Past Surgical History: Procedure Laterality Date BREAST LUMPECTOMY Left BREAST LUMPECTOMY Left 2013 s/p radiation as well CATARACT EXTRACTION W/ INTRAOCULAR LENS IMPLANT Bilateral 10/2015, 12/2015 SECTION (HISTORICAL) CHOLECYSTECTOMY DILATION AND CURETTAGE OF UTERUS FEMUR FRACTURE SURGERY Right 11/30/2019 HIP ARTHROPLASTY Right 01/21/2020 conversion JOINT REPLACEMENT Bilateral ROTATOR CUFF REPAIR Right TOTAL ABDOMINAL HYSTERECTOMY FAMILY HISTORY Family History Problem Relation Name Age of Onset Asthma Son Thyroid disease Brother Cancer Mother Cancer Father Thyroid disease Mother Cancer Brother Asthma Son Asthma Son SOCIAL HISTORY Social History Tobacco Use Smoking status: Every Day Packs/day: .75 Types: Cigarettes Smokeless tobacco: Never Substance Use Topics Alcohol use: Yes Alcohol/week: 0.0 standard drinks of alcohol Drug use: No ALLERGIES Allergies Allergen Reactions Aspirin Hives and Swelling Blotchy, GI, hives Penicillins blotchiness Sulfa Antibiotics Hives and Swelling blotchy MEDICATIONS No current facility-administered medications on file prior to encounter. Current Outpatient Medications on File Prior to Encounter Medication Sig Dispense Refill cholecalciferol (D3-5) 5,000 Units tablet Take 5,000 Units by mouth in the morning. cyanocobalamin (Vitamin B-12) 1000 MCG tablet Take 500 mcg by mouth in the morning. fenofibrate (Tricor) 145 MG tablet Take 1 tablet (145 mg) by mouth in the morning. 30 tablet 5 insulin aspart (NovoLOG FLEXPEN) 100 UNIT/ML pen Inject 10 Units under the skin in the morning and 10 Units at noon and 10 Units in the evening. Inject with meals. 9 mL 1 insulin aspart (NovoLOG) 100 UNIT/ML pen Inject 10 Int'l Units under the skin. insulin glargine (Basaglar KwikPen) 100 UNIT/ML pen Inject 30 Units under the skin 2 times daily. 3 mL 1 losartan (Cozaar) 50 MG tablet Take 1 tablet (50 mg) by mouth in the morning. Take 50 mg by mouth in the morning.. 90 tablet 1 magnesium oxide (Mag-Ox) 400 MG tablet Take 1 tablet (400 mg) by mouth in the morning and 1 tablet (400 mg) before bedtime. 180 tablet 1 mirtazapine (Remeron) 30 MG tablet Take 1 tablet (30 mg) by mouth Nightly. 90 tablet 1 pravastatin (Pravachol) 80 MG tablet Take 1 tablet (80 mg) by mouth in the morning. 90 tablet 1 rivaroxaban (Xarelto) 20 MG tablet TAKE 1 TABLET BY MOUTH EVERY MORNING WITH BREAKFAST 90 tablet 1 venlafaxine XR (Effexor XR) 150 MG 24 hr capsule TAKE 1 CAPSULE BY MOUTH TWICE DAILY 180 capsule 1 REVIEW OF SYSTEMS Pertinent items are noted in HPI. Objective: BP 110/52 Pulse 71 Temp 36.7 C (98 F) (Temporal) Resp 17 Ht 1.6 m (5' 3") Wt 72.6 kg (160 lb) SpO2 99% BMI 28.34 kg/m PHYSICAL EXAM General appearance: in no apparent distress, well developed and well nourished, non-toxic, in no respiratory distress and acyanotic, and alert Skin: warm and dry Pulmonary: Normal effort, no respiratory distress, no cyanosis Sacrum: open wound noted. 1x0.5xUTDcm. Slough noted to wound bed. Scant sreosang drainage present. Lisa-wound intact and fragile. Surrounding wound edge red and non-blanchable. LABS CBC: Lab Results Component Value Date WBC 11.1 (H) 12/14/2023 HGB 7.9 (L) 12/14/2023 HCT 23.4 (L) 12/14/2023 MCV 90.6 12/14/2023 PLT 183 12/14/2023 BMP: Lab Results Component Value Date NA 133 (L) 12/14/2023 K 3.9 12/14/2023 CL 106 12/14/2023 CO2 25 12/14/2023 BUN 29 (H) 12/14/2023 CREATININE 0.84 12/14/2023 PT/INR: Lab Results Component Value Date PROTIME 12.1 (H) 12/13/2023 INR 1.1 12/13/2023 Prealbumin: No results found for: PREALBUMIN Albumin:No components found for: LABALBU Sed Rate:No results found for: SEDRATE Micro: No components found for: BC Assessment/Plan: Sacrum: Unstageable pressure injury - Present on admission - Cleanse with NS. Apply ET mix. Leave ESTELITA. Apply TID and PRN. - On ICU bed - Q2 hour turn and reposition Nutritional support Wound Care to follow Recommend to follow up at [facility] wound care center after hospital discharge. Any questions or concerns please secure chat "ACH wound/ostomy". Thank you for the consult! I personally obtained the virk and critical portions of the history and physical exam. I reviewed the labs, imaging studies, and electronic medical record. I reviewed the chart documentation and discussed the patient with treatment team members. I have edited the note to reflect my clinical findings and my assessment and plan. Please note, the time of this note does not reflect the time I saw this patient today, but the time of this documentaton. Portions of this note including HPI, ROS, impression/plan, and examination may have been copied forward from admission to today as to provide important historical information essential in contributing to medical decision making. Documentation has been reviewed and edited as necessary to support clinical decision making for today's visit and to reflect my own independent evaluation of this patient. Decision making for today's visit and to reflect my own independent evaluation of this patient. [facility] Geriatric Medicine Inpatient Consult Service Admission Date: 12/12/2023 Assessment Principal Problem: Closed fracture of multiple ribs of right side, initial encounter Plan Rib fractures/lumbar fracture/acute pain -Following with palliative care -continue with acetaminophen 1000mg every 8 hours -If narcotics are required recommend using lowest effective dose of oral narcotic as needed for breakthrough pain -last dose 0308 of Dilaudid -Monitor bowels -Osteoporosis work-up outpatient Falls/Debility -Continue with PT/OT as able too -Vitamin D level is low at 25--will start Vitamin D 91219 units weekly for 4 weeks, than re-check outpatient level -Debility likely contributing to falls -Agree with SNF at discharge Memory Loss Polypharmacy -Med list updated today. See below for recommendations from geriatric pharmacist -Son did not know doses for insulin since he does not give. Patient gave me several doses. Watch sugars closely and adjust current regimen as needed. -There are two sliding scale doses. Recommend to stop one since having both will increase risk of double-dosing -Patient stated she had trouble sleeping last night, Currently is on melatonin scheduled. Consider restart of trazodone 50 mg at bedtime prn -Watch for withdrawal of venlafaxine - patient is currently on once daily. She takes venlafaxine xr 150 mg twice daily at home. Consider weaning slower so adding venlafaxine XR 75 mg at 4pm ( rather than bedtime as she takes at home since it can cause insomnia. -Recommend to restart Vitamin D 1000 units daily, Vitamin B12 500 mcg daily, and folic acid 400 mcg daily -Watch for need to restart losartan 25 mg daily and magnesium oxide 400 mg daily - on [employer] , not on now. At risk for delirium -Risk factors for this patient include:advanced age, pain, medication effect -Delirium protocol - Continue evidence-based nonpharmacologic interventions for prevention and treatment of delirium Follow-up: will follow with you Subjective Chief Complaint: fall Geriatrics consulted for "Fall at home with rib Fx and hemothorax HPI- The patient is new to me but seen by the Geriatric Inpatient Consult team. 78 y.o. year-old female admitted to acute care from home for falls. Diagnosed with hemothorax, rib fracture. Interval History: Remains on ICU. Pt seen in ICU sitting in her chair. Currently not in any pain. Pt states that she did not sleep well last night. Pt is alert and oriented times 2-3 today, pleasant and cooperative. No interval events overnight. Discussed with RN and Palliative Care provider. Seen by PT. Mid to mod assist. Ambulated 20 feet. Recommending short term SNF for rehab. Review of Systems Constitutional: Negative for appetite change, fatigue and fever. HENT: Negative for congestion. Respiratory: Negative for cough and shortness of breath. Cardiovascular: Negative for chest pain. Gastrointestinal: Negative for abdominal pain and constipation. Genitourinary: Negative for difficulty urinating. Musculoskeletal: Positive for arthralgias, back pain and gait problem. Neurological: Negative for dizziness, light-headedness and headaches. Psychiatric/Behavioral: Negative for agitation and confusion. The patient is not nervous/anxious. Objective BP 111/55 Pulse 88 Temp 36.7 C (98 F) (Temporal) Resp 22 Ht 5' 3" (1.6 m) Wt 160 lb (72.6 kg) SpO2 90% BMI 28.34 kg/m Intake/Output Summary (Last 24 hours) at 12/14/2023 1449 Last data filed at 12/14/2023 0855 Gross per 24 hour Intake 1289 ml Output 1010 ml Net 279 ml Wt Readings from Last 3 Encounters: 12/12/23 160 lb (72.6 kg) 12/11/23 160 lb (72.6 kg) 08/30/22 208 lb 3.2 oz (94.4 kg) Current Facility-Administered Medications: acetaminophen (Tylenol) tablet 1,000 mg, 1,000 mg, Oral, q8h, Lucille Soto MD, 1,000 mg at 12/14/23 1136 dextrose 5 % infusion, 100 mL/hr, IntraVENous, PRN, Evan Richardson MD dextrose 50 % solution 12.5 g, 12.5 g, IntraVENous, PRN, Lucille Soto MD glucagon (human recombinant) injection 1 mg, 1 mg, IntraMUSCular, PRN, Evan Richardson MD glucose oral gel 15 g, 15 g, Oral, PRN, Lucille Soto MD glucose oral gel 15 g, 15 g, Oral, PRN, Evan Richardson MD HYDROmorphone (Dilaudid) injection 0.25 mg, 0.25 mg, IntraVENous, q4h PRN, 0.25 mg at 12/13/232100 OR HYDROmorphone (Dilaudid) injection 0.5 mg, 0.5 mg, IntraVENous, q4h PRN, Lucille Soto MD, 0.5 mg at 12/14/23 0308 insulin glargine (Lantus) injection 30 Units, 30 Units, SubCUTAneous, BID, Radha Bond PA-C, 30 Units at 12/14/23 0853 [DISCONTINUED] Insulin Lispro (Humalog) injection 0-18 Units, 0-18 Units, SubCUTAneous, TID WC, 6 Units at 12/13/23 0834 AND Insulin Lispro (Humalog) injection 0-18 Units, 0-18 Units, SubCUTAneous, Nightly, Lucille Soto MD, 6 Units at 12/13/232058 Insulin Lispro (Humalog) injection 0-6 Units, 0-6 Units, SubCUTAneous, TID WC AND Insulin Lispro (Humalog) injection 0-6 Units, 0-6 Units, SubCUTAneous, Nightly, Evan Richardson MD ipratropium-albuterol (Duo-Neb) 0.5-2.5 mg/3 mL nebulizer solution 3 mL, 3 mL, Nebulization, BID, Lucille Soto MD, 3 mL at 12/14/23 1207 lactated Ringer's (LR) infusion, 100 mL/hr, IntraVENous, Continuous, Linda Bueno MD, Last Rate: 100 mL/hr at 12/14/23 1128, 100 mL/hr at 12/14/23 1128 Lidocaine 4 % patch 1 patch, 1 patch, TransDERmal, Daily, Birgit Ramsey MD, 1 patch at 12/14/23 0853 melatonin tablet 5 mg, 5 mg, Oral, Nightly, Lucille Soto MD, 5 mg at 12/13/23 2059 methocarbamol (Robaxin) tablet 500 mg, 500 mg, Oral, q8h, Lucille Soto MD, 500 mg at 12/14/23 1136 naloxone (Narcan) injection 0.4 mg, 0.4 mg, IntraVENous, PRN, Lucille Soto MD ondansetron ODT (Zofran-ODT) disintegrating tablet 4 mg, 4 mg, Oral, q8h PRN OR ondansetron (Zofran) injection 4 mg, 4 mg, IntraVENous, q6h PRN, Lucille Soto MD oxyCODONE (Roxicodone) immediate release tablet 5 mg, 5 mg, Oral, q6h PRN, 5 mg at 12/13/23 0509 OR oxyCODONE (Roxicodone) immediate release tablet 10 mg, 10 mg, Oral, q6h PRN, Lucille Soto MD, 10 mg at 12/14/23 0024 polyethylene glycol (PEG) 3350 (Miralax) packet 17 g, 17 g, Oral, Daily PRN, Lucille Soto MD pravastatin (Pravachol) tablet 80 mg, 80 mg, Oral, Daily, Lucille Soto MD, 80 mg at 12/14/23 0853 sodium chloride 0.9 % infusion, 250 mL/hr, IntraVENous, PRN, Linda Bueno MD sodium chloride 3 % hypertonic nebulizer solution 4 mL, 4 mL, Nebulization, PRN, Evan Richardson MD stomahesive in petrolatum (ET Mix), , Topical, q8h, Rhianna Bremke, DYE MAKER - PROGRAM DEVELOPMENT MANAGER, Given at 12/14/23 1136 stomahesive in petrolatum (ET Mix), , Topical, PRN, Rhianna Bremke, DYE MAKER - PROGRAM DEVELOPMENT MANAGER venlafaxine XR (Effexor XR) 24 hr capsule 150 mg, 150 mg, Oral, Daily with breakfast, Lucille Soto MD, 150 mg at 12/14/23 0854 Physical Exam Vitals reviewed. Constitutional: General: She is not in acute distress. Appearance: She is ill-appearing. HENT: Head: Normocephalic. Right Ear: External ear normal. Left Ear: External ear normal. Cardiovascular: Rate and Rhythm: Normal rate and regular rhythm. Pulmonary: Breath sounds: No stridor. No wheezing. Comments: Diminished breath sounds Chest tube present Abdominal: General: Bowel sounds are normal. Palpations: Abdomen is soft. Musculoskeletal: Right lower leg: No edema. Left lower leg: No edema. Neurological: Mental Status: She is alert and oriented to person, place, and time. Sensory: No sensory deficit. Motor: No weakness. Psychiatric: Attention and Perception: Attention and perception normal. Mood and Affect: Mood and affect normal. Speech: Speech is not delayed. Behavior: Behavior normal. Behavior is cooperative. Cognition and Memory: Cognition is not impaired. Memory is not impaired. Labs and Imaging: Recent Results (from the past 24 hour(s)) Type and Screen Collection Time: 12/13/23 6:13 PM Result Value Ref Range ABO Grouping A Antibody Screen NEG Rh Type POS Hemoglobin and hematocrit, blood Collection Time: 12/13/23 6:13 PM Result Value Ref Range Hemoglobin 8.7 (L) 11.7 - 16.0 g/dL Hematocrit 26.6 (L) 35.0 - 47.0 % POCT glucose meter Collection Time: 12/13/23 8:54 PM Result Value Ref Range Glucose 240 (H) 70 - 100 mg/dL Hemoglobin and hematocrit, blood Collection Time: 12/14/23 12:42 AM Result Value Ref Range Hemoglobin 8.4 (L) 11.7 - 16.0 g/dL Hematocrit 25.8 (L) 35.0 - 47.0 % CBC Collection Time: 12/14/23 5:25 AM Result Value Ref Range Auto WBC 11.1 (H) 3.6 - 10.7 10*3/uL RBC 2.78 (L) 3.80 - 5.20 10*6/uL Hemoglobin 8.1 (L) 11.7 - 16.0 g/dL Hematocrit 25.2 (L) 35.0 - 47.0 % MCV 90.6 77.0 - 99.0 fL MCH 29.1 26.0 - 34.0 pg MCHC 32.1 30.5 - 36.0 % RDW 13.3 11.5 - 15.0 % Platelets 183 140 - 440 10*3/uL MPV 10.2 9.0 - 12.7 fL Vitamin D Deficiency Screening (Vit D 25) Collection Time: 12/14/23 5:25 AM Result Value Ref Range VIT D 25-OH, TOTAL 25 (L) 30 - 100 ng/mL Basic metabolic panel Collection Time: 12/14/23 5:25 AM Result Value Ref Range SODIUM 133 (L) 135 - 145 mmol/L POTASSIUM 3.9 3.5 - 5.1 mmol/L CHLORIDE 106 98 - 107 mmol/L CARBON DIOXIDE 25 22 - 30 mmol/L UREA NITROGEN 29 (H) 7 - 17 mg/dL CREATININE 0.84 0.52 - 1.04 mg/dL GLUCOSE 78 70 - 100 mg/dL CALCIUM 9.3 8.4 - 10.4 mg/dL ANION GAP 2 (L) 3 - 13 mmol/L eGFR 72.1 >60.0 mL/min/1.73m*2 Hemoglobin and hematocrit, blood Collection Time: 12/14/23 11:26 AM Result Value Ref Range Hemoglobin 7.9 (L) 11.7 - 16.0 g/dL Hematocrit 23.4 (L) 35.0 - 47.0 % Hemoglobin A1c Collection Time: 12/14/23 11:26 AM Result Value Ref Range HEMOGLOBIN A1C 7.1 (H) <5.7 % ESTIMATED AVERAGE GLUCOSE 157 mg/dL POCT glucose meter Collection Time: 12/14/23 11:32 AM Result Value Ref Range Glucose 120 (H) 70 - 100 mg/dL Prepare RBC: 1 Units Collection Time: 12/14/23 2:41 PM Result Value Ref Range PRODUCT CODE [id number] Unit Number [id number] Unit ABO O Unit RH POS Crossmatch interpretation COMP Dispense Status Issued Blood Expiration Date [id number] Product Blood Type 5100 Unit Volume 300 mL No results found for: "TSH" Lab Results Component Value Date [id number] 623 12/13/2023 Lab Results Component Value Date VITD25 25 (L) 12/14/2023 Reviewed: allergies, previous encounters, social history, imaging, active problem lists, medications, and labs Images from the original note were not included. Daily SICU Progress Note Resident 12/14/2023 6:14 AM Admit Date: 12/12/2023 HPI: 78 y.o. female status post fall 4 days ago. The incident happened on 12/10/23 at home. When the event happened the patient fell and hit a table. She was seen by her PCP on 12/10 who ordered CXR, which showed rib fracture. She presented to [place] ED with SOB, hypoxic, and tachycardic. CT showed large R effusion likely hemothorax. She was directly admitted to T2 ICU. The patient reports mild right chest pain and SOB. No LH or dizziness. Has been having frequent falls recently. She did not lose consciousness and recalls the fall, it was due to weakness in her legs. Doesn't think she hit her head. No other preceding symptoms. Last took Xarelto 1 day ago. Patient notes that she lives at home by herself. PROCEDURES: 12/12 CT placement CHIEF COMPLAINT: Right rib pain PREVIOUS 24 HOUR EVENTS: Patient continues to have low BP. Hgb stable and no transfusions need Positve orthostatics Consults: IP CONSULT TO ANESTHESIOLOGY IP CONSULT TO PALLIATIVE CARE IP CONSULT TO GERIATRICS IP WOUND CARE NURSE CONSULT TO EVAL MEDICATIONS: Current Facility-Administered Medications: acetaminophen (Tylenol) tablet 1,000 mg, 1,000 mg, Oral, q8h, Lucille Soto MD, 1,000 mg at 12/14/23 0307 dextrose 5 % infusion, 100 mL/hr, IntraVENous, PRN, Lucille Soto MD dextrose 50 % solution 12.5 g, 12.5 g, IntraVENous, PRN, Lucille Soto MD glucagon (human recombinant) injection 1 mg, 1 mg, IntraMUSCular, PRN, Lucille Soto MD glucose oral gel 15 g, 15 g, Oral, PRN, Lucille Soto MD HYDROmorphone (Dilaudid) injection 0.25 mg, 0.25 mg, IntraVENous, q4h PRN, 0.25 mg at 12/13/232100 OR HYDROmorphone (Dilaudid) injection 0.5 mg, 0.5 mg, IntraVENous, q4h PRN, Lucille Soto MD, 0.5 mg at 12/14/23 030 insulin glargine (Lantus) injection 30 Units, 30 Units, SubCUTAneous, BID, Radha Bond PA-C, 30 Units at 12/13/232058 [DISCONTINUED] Insulin Lispro (Humalog) injection 0-18 Units, 0-18 Units, SubCUTAneous, TID WC, 6 Units at 12/13/23 0834 AND Insulin Lispro (Humalog) injection 0-18 Units, 0-18 Units, SubCUTAneous, Nightly, Lucille Soto MD, 6 Units at 12/13/232058 ipratropium-albuterol (Duo-Neb) 0.5-2.5 mg/3 mL nebulizer solution 3 mL, 3 mL, Nebulization, BID, Lucille Soto MD, 3 mL at 12/13/23 1350 lactated Ringer's (LR) infusion, 100 mL/hr, IntraVENous, Continuous, Linda Bueno MD, Last Rate: 100 mL/hr at 12/14/23 0025, 100 mL/hr at 12/14/23 0025 Lidocaine 4 % patch 1 patch, 1 patch, TransDERmal, Daily, Birgit Ramsey MD, 1 patch at 12/13/23 1055 melatonin tablet 5 mg, 5 mg, Oral, Nightly, Lucille Soto MD, 5 mg at 12/13/23 2059 methocarbamol (Robaxin) tablet 500 mg, 500 mg, Oral, q8h, Lucille Soto MD, 500 mg at 12/14/23 0307 naloxone (Narcan) injection 0.4 mg, 0.4 mg, IntraVENous, PRN, Lucille Soto MD ondansetron ODT (Zofran-ODT) disintegrating tablet 4 mg, 4 mg, Oral, q8h PRN OR ondansetron (Zofran) injection 4 mg, 4 mg, IntraVENous, q6h PRN, Lucille Soto MD oxyCODONE (Roxicodone) immediate release tablet 5 mg, 5 mg, Oral, q6h PRN, 5 mg at 12/13/23 0509 OR oxyCODONE (Roxicodone) immediate release tablet 10 mg, 10 mg, Oral, q6h PRN, Lucille Soto MD, 10 mg at 12/14/23 0024 polyethylene glycol (PEG) 3350 (Miralax) packet 17 g, 17 g, Oral, Daily PRN, Lucille Soto MD pravastatin (Pravachol) tablet 80 mg, 80 mg, Oral, Daily, Lucille Soto MD, 80 mg at 12/13/23 0835 stomahesive in petrolatum (ET Mix), , Topical, q8h, Rhianna Engel APRN - PROGRAM DEVELOPMENT MANAGER, Given at 12/14/23 0308 stomahesive in petrolatum (ET Mix), , Topical, PRN, Rhianna Maren DYE MAKER - PROGRAM DEVELOPMENT MANAGER venlafaxine XR (Effexor XR) 24 hr capsule 150 mg, 150 mg, Oral, Daily with breakfast, Lucille Soto MD, 150 mg at 12/13/23 0835 ARE THERE PERTINENT UPDATES TO PAST,FAMILY, OR SOCIAL HISTORY?: No Subjective: Patient endorses right chest pain. Denies lightheadedness or dizziness. Review of Systems Constitutional: Negative for chills and fever. HENT: Negative for congestion and drooling. Eyes: Negative for redness and visual disturbance. Respiratory: Negative for cough and choking. Cardiovascular: Negative for chest pain and leg swelling. Gastrointestinal: Negative for nausea and vomiting. Skin: Negative for rash and wound. Neurological: Negative for dizziness and light-headedness. Psychiatric/Behavioral: Negative for agitation and confusion. Objective: Patient Vitals for the past 24 hrs: BP Temp Temp src Pulse Resp SpO2 12/14/23 0600 (!) 95/43 -- -- 61 16 100 % 12/14/23 0500 (!) 93/48 -- -- 65 (!) 30 99 % 12/14/23 0405 (!) 89/61 36.3 C (97.4 F) Temporal 85 24 100 % 12/14/23 0305 (!) 104/44 -- -- 71 (!) 33 99 % 12/14/23 0200 (!) 106/43 -- -- 68 19 97 % 12/14/23 0100 (!) 105/48 -- -- 65 19 99 % 12/14/23 0000 (!) 104/44 36.6 C (97.9 F) Temporal 65 17 99 % 12/13/23 2300 (!) 106/48 -- -- 66 20 97 % 12/13/23 2200 (!) 106/48 -- -- 68 20 96 % 12/13/23 2100 (!) 110/47 -- -- 70 (!) 26 100 % 12/13/23 2000 103/51 36.4 C (97.5 F) Temporal 70 19 97 % 12/13/23 1600 98/52 -- -- 72 18 99 % 12/13/23 1500 (!) 87/ -- -- 73 18 94 % 12/13/23 1400 (!) 87/41 -- -- 69 19 97 % 12/13/23 1350 -- -- -- 71 17 96 % 12/13/23 1300 (!) 85/48 -- -- 70 16 96 % 12/13/23 1200 (!) 80/45 -- -- 75 15 93 % 12/13/23 1130 (!) 82/45 -- -- 75 18 99 % 12/13/23 1128 (!) 97/43 -- -- 76 22 99 % 12/13/23 1100 -- -- -- 79 17 99 % 12/13/23 1000 (!) 85/52 -- -- 100 19 97 % 12/13/23 0900 -- -- -- 100 20 97 % 12/13/23 0825 -- 36.2 C (97.2 F) Temporal -- -- -- 12/13/23 0800 (!) 92/49 -- -- 80 15 99 % 12/13/23 0700 94/51 -- -- 89 16 99 % Intake/Output Summary (Last 24 hours) at 12/14/2023 06 Last data filed at 12/13/20232051 Gross per 24 hour Intake -- Output 605 ml Net -605 ml I/O this shift: In: - Out: 75 [Chest Tube:75] Chest Tubes: R: YesOutput: 690cc sanguinous output Air Leak: No Suction PHYSICAL: General Appearance: Awake, No acute distress, and Appears well-developed and well-nourished Head: Normocephalic and atraumatic Eyes: Sclera anicteric , EOM's grossly normal, and Conjunctivae normal ENT: Nares clear , Moist Mucous Membranes, Oropharynx clear, no blood , and Midface is stable. Neck: There is no cervical midline tenderness to palpation, step-offs or acute deformities, Trachea midline , No Thyromegaly , and No Crepitus Chest: Comments: right chest wall hematoma with ecchymosis, tenderness to palpation Right chest tube in place to suction without air leak, serosanguinous output Lungs: Clear and unlabored Respirations Heart/Cardiovascular: Rhythm Regular and Tachycardia Abdomen: Soft and Non-Tender : Normal external genitalia Rectal: Positive Gluteal Squeeze Musculoskeletal: Upper and lower extremities have no acute deformities and they are non-tender to palpation, Good ROM , and Log-roll negative for pain Extremities: Cyanosis Absent , Radial Pulses palpable , Posterior Tibial Pulses Palpable , and Dorsalis Pedis Pulses Palpable Skin: Warm Neurologic: Alert and oriented to person, place, and time. , CN II-XII grossly normal, no focal deficits. , Moving all extremities willfully, able to wiggle all fingers and toes. , Sensation grossly intact throughout. , and Strength 5/5 throughout. Psych: Affect Normal Data CBC with Differential: Lab Results Component Value Date WBC 11.1 (H) 12/14/2023 RBC 2.78 (L) 12/14/2023 HGB 8.1 (L) 12/14/2023 HCT 25.2 (L) 12/14/2023 PLT 183 12/14/2023 CMP: Lab Results Component Value Date NA 133 (L) 12/14/2023 K 3.9 12/14/2023 CL 106 12/14/2023 CO2 25 12/14/2023 BUN 29 (H) 12/14/2023 CREATININE 0.84 12/14/2023 GLUCOSE 78 12/14/2023 PROT 6.5 12/12/2023 CALCIUM 9.3 12/14/2023 BILITOT 0.8 12/12/2023 ALKPHOS 52 12/12/2023 AST 18 12/12/2023 ALT 13 12/12/2023 BMP: Hepatic Function Panel:Ionized Calcium: No components found for: "IONCA" Magnesium: No results found for: MG Phosphorus: No results found for: PHOS PT/INR: Lab Results Component Value Date PROTIME 12.1 (H) 12/13/2023 INR 1.1 12/13/2023 PTT: No results found for: "APTT"[APTT Last 3 Troponin: Lab Results Component Value Date TROPONINI <0.012 12/13/2023 TROPONINI <0.012 12/13/2023 TROPONINI <0.012 12/12/2023 Radiology: ECG 12 lead Result Date: 12/14/2023 Sinus rhythm Atrial premature complex Left anterior fascicular block Electronically Signed On 12-14-2023 08:24:18 EDT by James Birmingham POCT glucose meter Result Date: 12/13/2023 Performed by: [facility], [address] [place] [id number] CLIA ID: [id number] POCT glucose meter Result Date: 12/13/2023 Performed by: [facility], [address] [place] [id number] CLIA ID: [id number] XR chest 1 view Result Date: 12/13/2023 Patient Name: BEVERLY AGEE : 1945 Exam Date/Time: 12/13/2023 04:41 Procedure: XR CHEST 1 VIEW Ordering Provider: BRASWELL LAURA Reason For Exam: s/p right chest tube insertion for hemopneumothorax CLINICAL INFORMATION: Shortness of breath. Hemopneumothorax. Right-sided chest tube now in place. Portable view of the chest at 0435 hours is provided and compared to a previous CT dated December 12, 2023. FINDINGS: A chest tube is now in place on the right. The sizable effusion is been evacuated. There is no significant pneumothorax. Emphysematous changes are noted diffusely. 1. New right-sided chest tube. 2. No pneumothorax. Report Dictated on Electronically Signed By: Chico Noguera MD Electronically Signed Date/Time: 12/13/2023 4:[address] chest abdomen pelvis without contrast Result Date: 12/12/2023 Patient Name: BEVERLY AGEE : 1945 Exam Date/Time: 12/12/2023 23:06 Procedure: CT CHEST ABDOMEN PELVIS WO CONTRAST Ordering Provider: GOLDMAN AMY Reason For Exam: Fall INDICATION: 78-year-old; fall; rib pain (same day imaging demonstrated right rib#9 fracture) and difficulty breathing after a fall yesterday; fell on right side Scan Parameters: Multiple axial 1mm images were obtained of the chest and 3mm images of the abdomen and pelvis. Coronal and sagittal reconstructions were reviewed as well. Dose reduction was employed with automated exposure control. Additional reconstructed MIP images provided with 3-D postprocessing. A total of 11 image sets provided for review. CONTRAST: No IV and no oral contrast COMPARISON: Chest and right RIBS 12/11/2023; CT chest 08/01/2021 FINDINGS: CHEST: A very small right pneumothorax is present anteriorly and medially. There is a moderate to large right pleural effusion with associated blood products with compressive atelectasis and/or infiltrate. Pulmonary vascular congestion is present with septal thickening. There are multiple posterior right rib fractures including 8,9,10. Ribs #9 and 10 are displaced with surrounding locules of air. The bones are osteopenic. Old LEFT rib fractures #5,6,10,11. Ribs #6 and 10 are not united. Multilevel endplate degenerative changes are present. There is a soft tissue hematoma posterior to the right rib fractures with associated air locules within the muscle. This measures in greatest axial dimension 1.9 x 4.1 cm. The thyroid gland contour is normal. The airway is patent the tracheobronchial tree calcifications. The esophagus is decompressed with a small hiatal hernia. Dense atherosclerotic calcifications are present along the aorta and coronary arteries. There is no sizable pericardial effusion. The heart is not enlarged. There is no mediastinal, hilar, or axillary adenopathy. There is limited evaluation the breast tissue, correlate with mammography. 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 Superior endplate compression of L5 with mild height loss, age indeterminate. The gallbladder is surgically absent with clips present. The liver, pancreas, and spleen are within normal limits. A right adrenal gland with a rich adenoma measures 13 mm. There is thickening of the medial limb of the left adrenal gland versus small adenoma. There is no hydronephrosis. A left renal 14 mm cyst is present. There is thinning of the renal cortex of the right and left. The bladder contour is normal. The uterus is surgically absent. Multiple colonic diverticuli are present. Fecal retention is present. The appendix is normal. The aorta is tortuous with atherosclerotic dense calcifications. CHEST: 1. Acute RIGHT rib fractures # 8,9,10. Ribs #9 and 10 are displaced with surrounding locules of air and an associated hematoma in the posterior musculature measuring 4.1 cm. Old left rib fractures. 2. Very small RIGHT anterior pneumothorax. 3. Moderate to large RIGHT pleural fluid with blood products with associated atelectasis. 4. Atherosclerotic disease. ABDOMEN/PELVIS: 1. Superior endplate compression at L5, age indeterminate. Osteopenia. Right total hip arthroplasty. 2. Other: Cholecystectomy. Bilateral adrenal gland adenomas. Left renal cyst. Perinephric stranding. Colonic diverticulosis. Atherosclerotic disease. 3. Additional findings, as above. CRITICAL TEST COMMUNICATION: I called the emergency department around 11:26pm and spoke with SHAKEEL Saxena. Report Dictated on Electronically Signed By: Manisha Conroy MD Electronically Signed Date/Time: 12/12/2023 11:28 PM EDT ECG 12 lead Sinus tachycardia Abnormal R-wave progression, late transition Inferior infarct, old no stemi Electronically Signed On 12-12-2023 23:13:52 EDT by Marbin Cherrygers Patient Active Problem List Diagnosis Mood disorder (HCC) Closed fracture of one rib of left side Hemothorax Anticoagulated H/O: CVA (cerebrovascular accident) Tobacco dependence syndrome Hip fracture requiring operative repair, right, closed, initial encounter ([facility]) Memory impairment Examination of participant in clinical trial Malignant neoplasm of upper-outer quadrant of female breast (HCC) Fall Leukocytosis Closed fracture of hip (HCC) Unsteady gait Type 2 diabetes mellitus with hyperglycemia, with long-term current use of insulin (HCC) Acute cystitis E-coli UTI Obesity History of radial keratotomy Psychophysiological insomnia Hypomagnesemia Essential hypertension Mixed anxiety depressive disorder Hyperlipidemia Atrial fibrillation (HCC) Noncompliance with treatment regimen Weakness UTI (urinary tract infection) Hyperglycemia Closed fracture of multiple ribs of right side, initial encounter ASSESSMENT: 78 y.o. female s/p fall on Xarelto with right 8,9,10 rib fractures, small right anterior pneumothorax, large right hemothorax PLAN: Neuro/Spine: - Multimodal pain control: Ajay tylenol, PRN oxy, dilaudid, PO robaxin, lidocaine patches - Acute pain consult for rib block, possible block tomorrow - Palliative care, geriatrics consult Hx of Depression - Cont home Effexor - DC Remeron, patient not taking - Follow Geriatrics note for updated medications HEENT: - No acute issues Cardiovascular: Hx of Afib - Hold Eliquis - Telemetry Hypotension in the setting of acute rib fractures and hemothorax - MAP goal > 60 - Cont home pravastatin - Positive Orthostatic BP measurement, will repeat tomorrow - Repeat 500cc bolus HTN - Hold losartan HLD - Home Statin Pulmonary: R hemothorax - Chest tube to suction, continue to monitor output - EZ pap, IS, acapella - Ajay duoneb - Daily CXR - rCT Chest tomorrow vs 12/16/23 to assess for retained hemothorax FEN/GI: - Regular diet, carb controlled with Ensure - LR at 100 will DC when tolerating adequate diet - Repeat 500cc bolus - Bowel regimen: Miralax daily prn : - Monitor UOP Heme: - repeat PM H&H, DC q6h - Transfuse for Hgb < 8 - Hold Xarelto - Daily CBC ID: Chest tube placement - S/p ancef 24hr Endo: Hx of DM - Home lantus 30 - continue SSI - POC glucose -HA1c Lines/Devices: - PIV - R CT to suction Prophylaxis: DVT: SCD only, Start Lovenox this PM Has DVT PPX been started? No If no, why? Bleeding disorder GI: none indicated Pressure Ulcer: turn self Musculoskeletal: - PT/OT as able Medications Reconciled- Yes [x] NO [], why Disposition: T2 ICU acute monitoring of hemothorax and vital signs Linda Bueno MD General Surgery PGY-3 Pager # [phone] Associated attestation - Layne Mcdowell MD - 12/14/2023 4:01 PM EDT ATTENDING ADDENDUM I independently saw the above patient and reviewed the recent events, imaging, labs, vital signs; I performed a physical exam and ROS. My findings agree with the above note except for any details corrected below. Patient Active Problem List Diagnosis Mood disorder (HCC) Closed fracture of one rib of left side Hemothorax Anticoagulated H/O: CVA (cerebrovascular accident) Tobacco dependence syndrome Hip fracture requiring operative repair, right, closed, initial encounter ([facility]) Memory impairment Examination of participant in clinical trial Malignant neoplasm of upper-outer quadrant of female breast (HCC) Fall Leukocytosis Closed fracture of hip (HCC) Unsteady gait Type 2 diabetes mellitus with hyperglycemia, with long-term current use of insulin (HCC) Acute cystitis E-coli UTI Obesity History of radial keratotomy Psychophysiological insomnia Hypomagnesemia Essential hypertension Mixed anxiety depressive disorder Hyperlipidemia Atrial fibrillation (HCC) Noncompliance with treatment regimen Weakness UTI (urinary tract infection) Hyperglycemia Closed fracture of multiple ribs of right side, initial encounter A complete review of systems was obtained and is negative except as stated in HPI. 78F s/p multiple falls, states legs give out. -Acute R rib fractures # 8,9,10 (ribs 9,10 displaced), w/ associated hematoma in the posterior chest wall -Large R hemothorax -Small R pneumothorax -Chronic left rib fractures (5,6,10,11) -Age indeterminate L5 super endplate fracture Acute pain service consult for rib block - poss 12/14 IS - 500 Poor cough Serosang output from CT - no air leak appreciated today Orthostatics + - > 500cc bolus Vitamin D deficiency Neurological system - Multimodal pain control - Delirium precautions #depression - home venlafaxine Palliative and geriatrics S/p multiple falls - orthostatics - + -Recheck tomorrow Circulatory system #Shock - likely mixed 2/2 fall, hemorrhagic/hypovolemia, medication # H/o A-fib on Xarelto - hold Xarelto due to bleeding risk # H/o HTN on home losartan 50 mg (hold while hypotensive) # H/o HLD: continue home statin and fenofibrate Respiratory system #Right rib 8-10 displaced - large right CATA/PTX - cont suction on CT - monitor out --> serosang - Daily CXR - Aggressive pulmonary hygiene -Will require repeat CT chest likely tomorrow Gastrointestinal system - Diet - Bowel regimen Renal function - Strict I/Os Elevated creatinine - improved, acute renal insufficiency Immunologic system - Monitor for fevers Hematologic system - Monitor hemoglobin Acute blood loss anemia -monitor - repeat h/h in pm -> 7.9 and hypotension --> 1 prbc today Endocrine system - Monitor glucose T2DM - on home lantus (30 U BID) - aspart 10 U TID with meals (HOLD) - ISS Integumentary system (GI and cutaneous) - Skin checks Musculoskeletal system - PTOT Ppx - Lovenox 30 BID Critical Care time spent 42 min. The time involved in the performance of this care was exclusive of separately billable procedures, teaching time and treating other patients. The time was spent personally by the attending physician for the following activities: examination of the patient, ordering and/or performing treatment, reviewing the laboratory and radiographic studies, and if applicable, ventilator management and blood gas interpretation. Critical Care was necessary because of an illness or injury that actively impaired one or more vital organ systems such that there was a high probability of imminent life treatening deterioration in the patient's condition. The following organ systems are involved: CV Level of Medical Decision Making: risk of morbidity from additional diagnostic testing or treatment due to shock, traumatic hemothorax [x]High []Moderate Complexity: Acute or chronic illness posing a threat to life (HIGH) Personally Reviewed/Independently interpreted patient's: [x]Epic notes [x]Radiology studies [x]Labs []EKG []Ordering tests []Other Discussed/ With: [x]Patient/Family []RN []Consultants []SW/TCC []Other Layne Mcdowell MD Division of Trauma Department of Surgery [facility] ~~~~~~~~~~~~~~~~~~~~~~~~~~~~~~~~~~ ~~~~~~~~~~~~~~~~~~~~~~~~~~~~~~~~~~ ~~~ This note may have been dictated using [employer] Edition 2.6 and/or Tag & See Voice Recognition Feature. The document was proofread; however, unrecognized voice recognition sieve grader tender errors may be present. Patient prescribed Xarelto, she states she thinks the last dose was Sunday 12/10, however is asking to verify with her son. Possible block tomorrow pending last verified dose of Xarelto. Family Communication Number Called: [phone] Name of Designated Family Honing Machine Try Out Setter: Charbel Relationship: son Phone Call Outcome: I spoke with the individual listed above. Family Honing Machine Try Out Setter Updated on the Following: Updated Son/POA on injuries and plans for possible repeat CT Chest to further assess hemothorax. Discussed that patient could potentially require surgery in the days to come. Nutrition Assessment Type and Reason for Visit: Initial Nutrition Recommendations/Plan: Continue with current diet. Ordered Ensure HP @ 1400 + 2000 via MNT protocol. Monitor nutritional status. Malnutrition Assessment: Malnutrition Status: Insufficient data Context: Acute Illness Nutrition Assessment: HPI: Pt is a [id number][age]r-female on Xarelto s/p fall at home 4 days prior to presentation (~12/07), who initially saw her PCP on 12/10 for pain, at which time CXR showed a R 9th rib fracture and chronic pulmonary disease, but no hemo- or pneumothorax. Earlier this evening she presented to [facility] with worsening R chest pain and SOB, and she was found to be tachycardic (HR 116) and hypotensive (sBP 80s-90s), and CT showed acute right sided rib fractures and mod-large right hemothorax. Hb was 13.1 on arrival. She was transferred to for further management of her R hemothorax, acute pain, and hemodynamic instability. Acute R rib fractures # 8,9,10 (ribs 9,10 displaced), w/ associated hematoma in the posterior chest wall Large R hemothorax Small R pneumothorax Chronic left rib fractures (5,6,10,11) Age indeterminate L5 super endplate fracture. Pt is a 78 year old female with PMH that include arrhythmia, arthritis, A-fib, breast cancer, 09/30/2012 -Left quadrantectomy & axillary LN 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, stroke - cerebral artery occlusion (right temporal), depression, HPL, HTN, DM2. HPI below. Palliative consulted; DNR-DNI ok for ICU. Pt reporting more frequent falls. She is on a regular, 4 CHO per meal diet. Estimated Daily Nutrient Needs: Energy Requirements Based On: Kcal/kg Weight Used for Energy Requirements: [place] Weight for Energy Calculation (kg): 52.2 kg Total Energy Requirements (kcals/day): 25-30 kcals/kg = 8371-7382 kcals/day Weight Used for Protein Requirements: [place] Weight in Kg Used for Protein Requirements: 52.2 kg Estimated Total Protein (g/day): 1.2-1.4g protein/kg IBW = 63-73g protein/day Estimated Daily Total Fluid (ml/day): per MD Nutrition Related Findings: +BS, abd soft, no edema Wound Type: Stage II (sacral decub; present on admission) Net IO Since Admission: 460 mL [12/13/23 1510] Current Nutrition Therapies: Adult diet Regular; 4 carb choices (60 gm/meal) Current Oral Intake Average Meal Intake: Unable to assess (diet just advanced) Average Supplements Intake: None Ordered Anthropometric Measures: Height: 160 cm (5' 3") Current Body Weight: 72.6 kg (160 lb 0.9 oz) Weight Source: Stated [place] Body Weight (lbs) (Calculated): 115 lbs [place] Body Weight (Kg) (Calculated): 52 kg BMI (kg/m2) (Calculated): 28.4 BMI Categories: Overweight (BMI 25.0-29.9) Wt Readings from Last 10 Encounters: 12/12/23 72.6 kg (160 lb) 12/11/23 72.6 kg (160 lb) 08/30/22 94.4 kg (208 lb 3.2 oz) 06/28/22 94.8 kg (208 lb 14.4 oz) 01/04/22 94.8 kg (208 lb 14.4 oz) 10/04/21 98.2 kg (216 lb 6.4 oz) 07/04/21 98.6 kg (217 lb 4.8 oz) 03/30/21 100 kg (221 lb 6.4 oz) 11/10/20 96.8 kg (213 lb 8 oz) 07/14/20 88.5 kg (195 lb) LABS: Recent Labs 12/12/23 2228 12/13/23 0434 NA 134* 134* K 4.1 4.3 CL 99 104 CO2 24 24 BUN 21* 27* CREATININE 0.92 1.12* GLUCOSE 299* 292* CALCIUM 10.1 9.6 Recent Labs 12/12/23 2228 AST 18 ALT 13 BILITOT 0.8 ALKPHOS 52 Nutrition Diagnosis: Increased nutrient needs related to acute injury/trauma as evidenced by wounds Nutrition Interventions: Nutrition Education/Counseling: No recommendation at this time Coordination of Nutrition Care: Continue to monitor while inpatient Goals: Goals: PO intake 75% or greater, by next RD assessment Nutrition Monitoring and Evaluation: Food/Nutrient Intake Outcomes: Food and Nutrient Intake, Supplement Intake Physical Signs/Symptoms Outcomes: Biochemical Data, GI Status, Skin, Weight, Nutrition Focused Physical Findings Discharge Planning: Too soon to determine Shanel Jean RD,LD,[facility] Contact: *[phone] or BriefMe Chat Images from the original note were not included. PHYSICAL THERAPY [facility] Initial Evaluation Name/MRN: Beverly Agee ([id number]) Evaluation Date: 12/13/2023 Date of : 1945 Admission Date: 12/12/2023 9:42 PM Age: 78 y.o. Room/Bed: T2-204/T2-204 A Discharge Recommendation: [facility] Facility Equipment Needed: No Assessment IMPRESSION: 78 y.o. pt admitted to [facility] for fall, closed fracture R rib 8-10, small pneumothorax and large hemothorax, chest tube insertion. They were mod A for bed mobility, Min - Mod A for transfers, and Min A for ambulation. Mostly pain limited. She is from home alone, unsafe at this time, at high risk for falls. Would recommend SNF at discharge. Diagnosis: fall, closed fracture R rib 8-10, small pneumothorax and large hemothorax, chest tube insertion Prognosis: fair Performance Deficits /Impairments: Increased Pain, Decreased Functional Mobility, Decreased Strength, Decreased Endurance, and Decreased Balance Decision Making: Medium Complexity Subjective Pt supine in bed. Agreeable to PT session. Cleared by nursing Pain: Benjamin-Yu Pain Ratin = Hurts whole lot Pain Location: R chest, increased pain with coughing 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 Depression History of blood transfusion Hyperlipidemia Hypertension Type II or unspecified type diabetes mellitus without mention of complication, not stated as uncontrolled ([facility]) Past Surgical History: Past Surgical History: Procedure Laterality Date BREAST LUMPECTOMY Left BREAST LUMPECTOMY Left 2012 s/p radiation as well CATARACT EXTRACTION W/ INTRAOCULAR LENS IMPLANT Bilateral 10/2015, 12/2015 SECTION (HISTORICAL) CHOLECYSTECTOMY DILATION AND CURETTAGE OF UTERUS FEMUR FRACTURE SURGERY Right 11/30/2019 HIP ARTHROPLASTY Right 01/21/2020 conversion JOINT REPLACEMENT Bilateral ROTATOR CUFF REPAIR Right TOTAL ABDOMINAL HYSTERECTOMY Admission Diagnosis: Patient Active Problem List Diagnosis Date Noted Closed fracture of multiple ribs of right side, initial encounter 12/12/2023 Weakness 10/03/2022 Hyperglycemia 10/03/2022 Noncompliance with treatment regimen 06/30/2022 UTI (urinary tract infection) 11/29/2019 Closed fracture of one rib of left side 08/01/2021 Hemothorax 08/01/2021 Anticoagulated 08/01/2021 Mood disorder (HCC) 11/13/2020 Hip fracture requiring operative repair, right, closed, initial encounter ([facility]) 01/21/2020 E-coli UTI 12/01/2019 H/O: CVA (cerebrovascular accident) 11/29/2019 Tobacco dependence syndrome 11/29/2019 Memory impairment 11/29/2019 Fall 11/29/2019 Leukocytosis 11/29/2019 Closed fracture of hip ([facility]) 11/29/2019 Unsteady gait 11/29/2019 Type 2 diabetes mellitus with hyperglycemia, with long-term current use of insulin ([facility]) 11/29/2019 Acute cystitis 11/29/2019 Obesity 11/29/2019 Atrial fibrillation ([facility]) 11/29/2019 Hypomagnesemia 02/18/2019 History of radial keratotomy 01/31/2017 Examination of participant in clinical trial 02/03/2016 Malignant neoplasm of upper-outer quadrant of female breast ([facility]) 02/03/2016 Psychophysiological insomnia 05/06/2015 Essential hypertension 05/06/2015 Mixed anxiety depressive disorder 05/06/2015 Hyperlipidemia 05/06/2015 Medical Precautions: No active isolations Proper PPE donned/doffed in accordance with facility standards. Fall Risk: Loyd Fall Risk Score: 60 (High Risk) Precautions/Restrictions: Lines/Drains/Airways: PIV, tele, chest tube, purewick Family/Caregiver Present: none Overall Cognitive Status: WFL Overall Orientation Status: Oriented x4 Vision: not assessed this session Hearing: normal Social/Functional History Patient admitted from home. Lives With: Alone Type of Home: single family home Home Layout: Single Level Home Home Access: Stairs to Enter with Rails (# of stairs: 3) Bathroom Shower/Tub: Toilet: N/A Home Equipment: front wheeled walker and cane Homemaking Responsibilities: Independent Receives Help From: None Active Optomechanical Engineer: Prior Level of Function ADL Assistance: Independent Ambulation Assistance: Independent Device(s) used: front wheeled walker Transfer Assistance: Independent Objective Lower Extremity Assessment AROM: WFL PROM: WFL Strength: WFL (3+/5 overall, possible pain limited with muscle strain) Bed Mobility: Supine to sit: Mod Assist HOB elevated, use of bed rails. Cues for hand placement. Initially Min A for seated balance, progressed to SBA with placing Skyler feet on floor. Transfers Sit to stand: Min Assist, Mod Assist Stand to sit: Min Assist EOB x1, toilet x1, chair x1 all at FWW. Cues for hand placement and pushing up, Min A from EOB and chair, Mod A from toilet d/t lower surface. CGA standing balance Ambulation Ambulation 1 Assistive device(s) used: front wheeled walker Assist level: Min Assist Distance (ft): 10' + 10' Quality of gait: antalgic, shuffling, narrow LUCA, slow savanna, unstable, slight FWW assist with turning Sensation: WFL Outcome Measures AM-PAC How much HELP from another person do you currently need Turning from your back to your side while in a flat bed without using bedrails?: A Little Moving from lying on your back to sitting on the side of a flat bed without using bedrails?: A Lot Moving to and from a bed to a chair (including a wheelchair)?: A Little Standing up from a chair using your arms (wheelchair or bedside chair)?: A Lot Walking in a hospital room?: A Lot Stair climbing assessed?: No AM-PAC Inpatient Mobility Raw Score (No Stairs) : 12 [facility] Score: Walked 10 steps or more (i.e. walked to restroom) Plan Pt would benefit from skilled acute PT services to address Strengthening, Balance Training, Functional Mobility Training, Endurance Training, Gait Training, Stair Training, Safety Education and Training, Patient/Caregiver Training, and Equipment Evaluation/Education. Frequency: 5x/week for 4 weeks Barriers: Pain, Upper extremity weakness, and Lower extremity weakness Safety/Education Safety Safety Devices in place: call light within reach, left in chair, chair alarm in place, gait belt, patient at risk for falls, and nurse notified Restraints: No Education Education Given To: patient Education Provided: PT Role, PT Goals, Gait Training, Plan of Care, Transfer Training, Energy Conservation, Equipment, Fall Prevention Education, and Benefits of Increasing Activity Education Method: Verbal Barriers to Learning: None Education Outcome: Verbalized Understanding Goals Patient Stated Goal: to decrease pain Encounter Problems Encounter Problems (Active) Mobility Patient will ambulate 75 feet with supervision and least restrictive device in order to improve safety and independence with mobility. Start: 12/13/23 Expected End: 01/10/24 Patient will ascend and descend 3 stairs with least restrictive device and supervision in order to safely negotiate home. Start: 12/13/23 Expected End: 01/10/24 Transfers Patient will perform bed mobility with supervision in order to improve independence and prepare for out of bed mobility. Start: 12/13/23 Expected End: 01/10/24 Patient will complete functional transfer with least restrictive device with supervision in order to prepare for ambulation. Start: 12/13/23 Expected End: 01/10/24 Therapy Time Individual Co-treatment Time In 0844 Time Out 0907 Minutes 23 Timed Code Treatment Minutes: (Mod eval, 1 FA) Mariely Saez PT Patient's Physical Therapy Plan of Care supervision is transferred to a [facility] Services Physical Therapist. Goals and/or treatment plan was established in collaboration with patient/family/other representatives. Updated Plan Patient states that she had a mechanical fall on 12/09 due to her legs giving out and has has multiple falls recent. She lives at home by herself. She last took her Xarelto yesterday morning. This AM patient was noted to be hypotensive and was given an additional 500cc LR bolus. Poor IS. Lab Results Component Value Date WBC 12.9 (H) 12/13/2023 HGB 11.1 (L) 12/13/2023 HCT 33.8 (L) 12/13/2023 MCV 89.2 12/13/2023 PLT 248 12/13/2023 Lab Results Component Value Date GLUCOSE 292 (H) 12/13/2023 CALCIUM 9.6 12/13/2023 NA 134 (L) 12/13/2023 K 4.3 12/13/2023 CO2 24 12/13/2023 CL 104 12/13/2023 BUN 27 (H) 12/13/2023 CREATININE 1.12 (H) 12/13/2023 ASSESSMENT: 78 y.o. female s/p fall on Xarelto with right 8,9,10 rib fractures, small right anterior pneumothorax, large right hemothorax PLAN: Neuro/Spine: - Multimodal pain control: Ajay tylenol, PRN oxy, dilaudid, PO robaxin, lidocaine patches - Acute pain consult for rib block - Palliative care, geriatrics consult Hx of Depression - Cont home Remeron, Effexor HEENT: - No acute issues Cardiovascular: - Hx of Afib - Hold Eliquis - Telemetry - MAP goal > 65 - Cont home pravastatin - Orthostatic BP measurement - rEKG HTN - Hold losartan Pulmonary: R hemothorax - Chest tube to suction, continue to monitor output - EZ pap, IS, acapella - Ajay duoneb - Daily CXR - rCT Chest in the next 2 to 3 days, possible VATs FEN/GI: - Regular diet, carb controlled - LR at 75 will DC when tolerating adequate diet - Bowel regimen: Miralax daily prn : - Monitor UOP Heme: - H&H now - Hold Xarelto - Daily CBC ID: Chest tube placement - Ancef 24hr Endo: Hx of DM - Home lantus 30 - continue SSI - POC glucose Lines/Devices: - PIV - R CT to suction Prophylaxis: DVT: SCD only Has DVT PPX been started? No If no, why? Bleeding disorder GI: none indicated Pressure Ulcer: turn self Musculoskeletal: - PT/OT as able Medications Reconciled- Yes [x] NO [], why Disposition: T2 ICU acute monitoring of hemothorax and vital signs Linda Bueno MD General Surgery PGY-3 Pager # [phone] Associated attestation - Layne Mcdowell MD - 12/13/2023 11:45 AM EDT ATTENDING ADDENDUM I independently saw the above patient and reviewed the recent events, imaging, labs, vital signs; I performed a physical exam and ROS. My findings agree with the above note except for any details corrected below. Patient Active Problem List Diagnosis Mood disorder (HCC) Closed fracture of one rib of left side Hemothorax Anticoagulated H/O: CVA (cerebrovascular accident) Tobacco dependence syndrome Hip fracture requiring operative repair, right, closed, initial encounter ([facility]) Memory impairment Examination of participant in clinical trial Malignant neoplasm of upper-outer quadrant of female breast (HCC) Fall Leukocytosis Closed fracture of hip (HCC) Unsteady gait Type 2 diabetes mellitus with hyperglycemia, with long-term current use of insulin (HCC) Acute cystitis E-coli UTI Obesity History of radial keratotomy Psychophysiological insomnia Hypomagnesemia Essential hypertension Mixed anxiety depressive disorder Hyperlipidemia Atrial fibrillation (HCC) Noncompliance with treatment regimen Weakness UTI (urinary tract infection) Hyperglycemia Closed fracture of multiple ribs of right side, initial encounter A complete review of systems was obtained and is negative except as stated in HPI. 78F s/p multiple falls, states legs give out. -Acute R rib fractures # 8,9,10 (ribs 9,10 displaced), w/ associated hematoma in the posterior chest wall -Large R hemothorax -Small R pneumothorax -Chronic left rib fractures (5,6,10,11) -Age indeterminate L5 super endplate fracture Acute pain service consult for rib block 500 on IS Cont bloody output from CT Neurological system - Multimodal pain control - Delirium precautions #depression - home venlafaxine, mirtazapine Palliative and geriatrics S/p multiple falls - check orthostatics Circulatory system # H/o A-fib on Xarelto - hold Xarelto due to bleeding risk # H/o HTN on home lisinopril (hold while hypotensive) # H/o HLD: continue home statin and fenofibrate Recheck EKG Respiratory system #Right rib 8-10 displaced - large right CATA/PTX - cont suction on CT - monitor out --> bloody - Daily CXR - Aggressive pulmonary hygiene Gastrointestinal system - Diet - Bowel regimen Renal function - Strict I/Os Elevated creatinine - monitor at this time Immunologic system - Monitor for fevers Ancef x 24h Hematologic system - Monitor hemoglobin Acute blood loss anemia -monitor - repeat h/h Endocrine system - Monitor glucose T2DM - on home lantus (30 U BID) - aspart 10 U TID with meals (HOLD) - ISS Integumentary system (GI and cutaneous) - Skin checks Musculoskeletal system - PTOT Ppx - HOLD Lovenox Layne Mcdowell MD Division of Trauma Department of Surgery [facility] ~~~~~~~~~~~~~~~~~~~~~~~~~~~~~~~~~~ ~~~~~~~~~~~~~~~~~~~~~~~~~~~~~~~~~~ ~~~ This note may have been dictated using [employer] Edition 2.6 and/or Tag & See Voice Recognition Feature. The document was proofread; however, unrecognized voice recognition sieve grader tender errors may be present. I was notified by the resident that the patient had arrived on T2 as a Direct Admit. I immediately came to T2 ICU to evaluate patient. I was at the bedside within 15 minutes of patient arrival. Please see H&P for further details. Charlotte Braswell MD Division of Trauma Department of Surgery [facility] documented in this encounter [facility] 12-24-2023 Nurse Note This RN received a call back from [facility] @[phone]. Report was given and facility is ready for pt. documented in this encounter [facility] 12-24-2023 Hospital course Narrative Images from the original note were not included. Department of Trauma / Critical Care Discharge Summary Name: Beverly Agee Date: 12/24/2023 4:20 PM : 1945 Age/Sex: 78 y.o. female Admit Date: 12/12/2023 Discharge Date: 12/24/2023 Attending: No att. providers found Discharge Diagnosis: 1. Fall, initial encounter 2. Closed fracture of multiple ribs of right side, initial encounter 3. Traumatic pneumothorax, initial encounter 4. Pneumohemothorax, traumatic, initial encounter 5. 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) 6. Memory loss 7. Recurrent falls 8. Debility 9. Physical deconditioning 10. Polypharmacy 11. History of stroke 12. At risk for delirium Patient Active Problem List Diagnosis Mood disorder (HCC) Closed fracture of one rib of left side Hemothorax Anticoagulated H/O: CVA (cerebrovascular accident) Tobacco dependence syndrome Hip fracture requiring operative repair, right, closed, initial encounter ([facility]) Memory impairment Examination of participant in clinical trial Malignant neoplasm of upper-outer quadrant of female breast (HCC) Fall Leukocytosis Closed fracture of hip (HCC) Unsteady gait Type 2 diabetes mellitus with hyperglycemia, with long-term current use of insulin (HCC) Acute cystitis E-coli UTI Obesity History of radial keratotomy Psychophysiological insomnia Hypomagnesemia Essential hypertension Mixed anxiety depressive disorder Hyperlipidemia Atrial fibrillation (HCC) Noncompliance with treatment regimen Weakness UTI (urinary tract infection) Hyperglycemia Closed fracture of multiple ribs of right side, initial encounter Body mass index is 28.34 kg/m . BMI Classification: Overweight (BMI 25.0-29.9) Reason for Hospitalization: The patient was admitted for multiple rib fractures, . Hospital Course (Care, treatment and services provided): Please see H&P and prior notes for more detailed summary of previous investigations and clinical assessment prior to this admission. Injuries Right rib fractures 8,9, 10 Hemo Pneumothorax Brief HPI Mrs Agee fell 12/07 and hit a table. She was seen by her PCP on 12/10 who ordered CXR, which showed rib fracture. She presented to [place] ED with SOB, hypoxic, and tachycardic. CT showed large R effusion likely hemothorax. She was directly admitted to T2 ICU. Last took Xarelto 12/10. Incidental Findings: Chronic left rib fractures 5,6,10,11 Age indeterminate L5 superior endplate fracture Hospital course: Mrs Agee arrived as a direct admit to T2 ICU from [facility] on 12/12. Right chest tube placed with 750 ml thin blood drained. PT recommend SNF on discharge. 12/13 Received one unit of blood for hgb 7.9. Requiring oxygen, output from chest tube still > 150. 12/[address] chest reveals retained hemothorax. VATS completed with rib plating and cryoablation and chest tube placement. Patient returned to the OR post op. Patient was transferred to floor on 12/19/23. Patient had chest tube removal on 12/20/23. Patient received pulmonary hygiene during admission. Patient was evaluated by PT/OT-both of whom recommended inpatient care. Patient and family chose [facility] post discharge. Auth was started for [facility] on 12/21/23. Patient was tolerting diet and pain was controlled on po pain regimen prior to discharge. Auth was received on 12/24/23. Patient was discharged to SNF in stable position on 12/24/23. Consultations: IP CONSULT TO ANESTHESIOLOGY IP CONSULT TO PALLIATIVE CARE IP CONSULT TO GERIATRICS IP WOUND CARE NURSE CONSULT TO EVAL PCP: NENO IQBAL MD Recommended Follow-ups: Trauma Clinic PCP [facility] Treatments and Procedures with outcomes: Labs: Data Review Data CBC with Differential: Lab Results Component Value Date WBC 10.2 12/23/2023 RBC 3.91 12/23/2023 HGB 11.4 (L) 12/23/2023 HCT 34.3 (L) 12/23/2023 PLT 485 (H) 12/23/2023 CMP: Lab Results Component Value Date NA 129 (L) 12/23/2023 K 3.9 12/23/2023 CL 97 (L) 12/23/2023 CO2 23 12/23/2023 BUN 13 12/23/2023 CREATININE 0.58 12/23/2023 GLUCOSE 122 (H) 12/23/2023 CALCIUM 9.7 12/23/2023 BMP: Hepatic Function Panel: Ionized Calcium: No components found for: "IONCA" Magnesium: No results found for: MG Phosphorus: No results found for: PHOS PT/INR: No results found for: "PROTIME", "INR" PTT: No results found for: "APTT"[APTT Last 3 Troponin: No results found for: "TROPONINI" Urine Culture: No components found for: "CURINE" Blood Culture: No components found for: "CBLOOD", "CFUNGUSBL" Blood Culture from Central Line: No components found for: CBLOODLN Stool Culture: No components found for: "CSTOOL" Sputum Culture: No components found for: "CSPUTUM" Sputum Culture for AFB: No components found for: "CAFBSM" Wound Culture: n/a Procedures: 12/12 - R CT placement 12/16 - R VATS, cry, ribs 9,10 rib plating 12/19 - R CT removed Significant Imaging Results: ECG 12 lead Result Date: 12/14/2023 Sinus rhythm Atrial premature complex Left anterior fascicular block Electronically Signed On 12-14-2023 08:24:18 EDT by James Birmingham POCT glucose meter Result Date: 12/13/2023 Performed by: [facility], [address] [place] [id number] CLIA ID: [id number] POCT glucose meter Result Date: 12/13/2023 Performed by: [facility], [address] [place] [id number] CLIA ID: [id number] XR chest 1 view Result Date: 12/13/2023 Patient Name: BEVERLY AGEE : 1945 Exam Date/Time: 12/13/2023 04:41 Procedure: XR CHEST 1 VIEW Ordering Provider: BRASWELL LAURA Reason For Exam: s/p right chest tube insertion for hemopneumothorax CLINICAL INFORMATION: Shortness of breath. Hemopneumothorax. Right-sided chest tube now in place. Portable view of the chest at 0435 hours is provided and compared to a previous CT dated December 12, 2023. FINDINGS: A chest tube is now in place on the right. The sizable effusion is been evacuated. There is no significant pneumothorax. Emphysematous changes are noted diffusely. 1. New right-sided chest tube. 2. No pneumothorax. Report Dictated on Electronically Signed By: Chico Noguera MD Electronically Signed Date/Time: 12/13/2023 4:[address] chest abdomen pelvis without contrast Result Date: 12/12/2023 Patient Name: BEVERLY AGEE : 1945 Exam Date/Time: 12/12/2023 23:06 Procedure: CT CHEST ABDOMEN PELVIS WO CONTRAST Ordering Provider: GOLDMAN AMY Reason For Exam: Fall INDICATION: 78-year-old; fall; rib pain (same day imaging demonstrated right rib#9 fracture) and difficulty breathing after a fall yesterday; fell on right side Scan Parameters: Multiple axial 1mm images were obtained of the chest and 3mm images of the abdomen and pelvis. Coronal and sagittal reconstructions were reviewed as well. Dose reduction was employed with automated exposure control. Additional reconstructed MIP images provided with 3-D postprocessing. A total of 11 image sets provided for review. CONTRAST: No IV and no oral contrast COMPARISON: Chest and right RIBS 12/11/2023; CT chest 08/01/2021 FINDINGS: CHEST: A very small right pneumothorax is present anteriorly and medially. There is a moderate to large right pleural effusion with associated blood products with compressive atelectasis and/or infiltrate. Pulmonary vascular congestion is present with septal thickening. There are multiple posterior right rib fractures including 8,9,10. Ribs #9 and 10 are displaced with surrounding locules of air. The bones are osteopenic. Old LEFT rib fractures #5,6,10,11. Ribs #6 and 10 are not united. Multilevel endplate degenerative changes are present. There is a soft tissue hematoma posterior to the right rib fractures with associated air locules within the muscle. This measures in greatest axial dimension 1.9 x 4.1 cm. The thyroid gland contour is normal. The airway is patent the tracheobronchial tree calcifications. The esophagus is decompressed with a small hiatal hernia. Dense atherosclerotic calcifications are present along the aorta and coronary arteries. There is no sizable pericardial effusion. The heart is not enlarged. There is no mediastinal, hilar, or axillary adenopathy. There is limited evaluation the breast tissue, correlate with mammography. 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 Superior endplate compression of L5 with mild height loss, age indeterminate. The gallbladder is surgically absent with clips present. The liver, pancreas, and spleen are within normal limits. A right adrenal gland with a rich adenoma measures 13 mm. There is thickening of the medial limb of the left adrenal gland versus small adenoma. There is no hydronephrosis. A left renal 14 mm cyst is present. There is thinning of the renal cortex of the right and left. The bladder contour is normal. The uterus is surgically absent. Multiple colonic diverticuli are present. Fecal retention is present. The appendix is normal. The aorta is tortuous with atherosclerotic dense calcifications. CHEST: 1. Acute RIGHT rib fractures # 8,9,10. Ribs #9 and 10 are displaced with surrounding locules of air and an associated hematoma in the posterior musculature measuring 4.1 cm. Old left rib fractures. 2. Very small RIGHT anterior pneumothorax. 3. Moderate to large RIGHT pleural fluid with blood products with associated atelectasis. 4. Atherosclerotic disease. ABDOMEN/PELVIS: 1. Superior endplate compression at L5, age indeterminate. Osteopenia. Right total hip arthroplasty. 2. Other: Cholecystectomy. Bilateral adrenal gland adenomas. Left renal cyst. Perinephric stranding. Colonic diverticulosis. Atherosclerotic disease. 3. Additional findings, as above. CRITICAL TEST COMMUNICATION: I called the emergency department around 11:26pm and spoke with SHAKEEL Saxena. 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 Do all this for 10 days. ergocalciferol 1.25 MG (52450 UT) capsule Commonly known as: Vitamin D2 Take 1 capsule (1.25 mg) by mouth 1 (one) time per week for 2 doses. Start taking on: December 29, 2023 famotidine 20 MG tablet Commonly known as: Pepcid Take 1 tablet (20 mg) by mouth 2 times daily as needed for heartburn (heartburn). insulin glargine 100 UNIT/ML injection Commonly known as: Lantus Inject 13 Units under the skin 2 times daily. Replaces: Basaglar KwikPen 100 UNIT/ML pen Insulin Lispro 100 UNIT/ML solution injection Commonly known as: Humalog Dosage Start Date End Date Remaining doses 0-18 Units 3 times daily (with meals) High Dose Correction AlgorithmGlucose: Dose: LESS than 139 No [id number] ipratropium-albuterol 0.5-2.5 mg/3 mL nebulizer solution Commonly known as: Duo-Neb Take 3 mL by nebulization 2 times daily as needed for wheezing. magnesium oxide 400 (240 Mg) MG tablet Commonly known as: Mag-Ox Take 1 tablet (400 mg) by mouth 2 times daily. Replaces: magnesium oxide 400 MG tablet melatonin 5 MG tablet Take 1 tablet (5 mg) by mouth Nightly. ondansetron ODT 4 MG disintegrating tablet Commonly known as: Zofran-ODT Take 1 tablet (4 mg) by mouth every 8 hours as needed for nausea or vomiting for up to 7 days. oxyCODONE 5 MG immediate release tablet Commonly known as: Roxicodone Take 0.5 tablets (2.5 mg) by mouth every 6 hours as needed for moderate pain (4-6) for up to 5 days. polyethylene glycol (PEG) 3350 17 g packet Commonly known as: Miralax Take 17 g by mouth daily for 3 days. sennosides 8.6 MG tablet Commonly known as: Senokot Take 1 tablet (8.6 mg) by mouth Nightly. CHANGE how you take these medications fenofibrate 54 MG tablet Commonly known as: Tricor Take 1 tablet (54 mg) by mouth daily. Start taking on: December 25, 2023 What changed: medication strength how much to take folic acid 1 MG tablet Commonly known as: Folvite Take 1 tablet (1 mg) by mouth daily. Start taking on: December 25, 2023 What changed: medication strength how much to take losartan 25 MG tablet Commonly known as: Cozaar Take 1 tablet (25 mg) by mouth daily. Start taking on: December 25, 2023 What changed: medication strength how much to take additional instructions * venlafaxine XR 75 MG 24 hr capsule Commonly known as: Effexor XR Take 1 capsule (75 mg) by mouth Nightly. Do not crush or chew. What changed: You were already taking a medication with the same name, and this prescription was added. Make sure you understand how and when to take each. * venlafaxine XR 150 MG 24 hr capsule Commonly known as: Effexor XR Take 1 capsule (150 mg) by mouth daily (with breakfast). Do not crush or chew. Start taking on: December 25, 2023 What changed: when to take this additional instructions * This list has 2 medication(s) that are the same as other medications prescribed for you. Read the directions carefully, and ask your doctor or other care provider to review them with you. CONTINUE taking these medications cyanocobalamin 1000 MCG tablet Commonly known as: Vitamin B-12 pravastatin 80 MG tablet Commonly known as: Pravachol Take 1 tablet (80 mg) by mouth in the morning. traZODone 50 MG tablet Commonly known as: Desyrel Xarelto 20 MG tablet Generic drug: rivaroxaban TAKE 1 TABLET BY MOUTH EVERY MORNING WITH BREAKFAST STOP taking these medications ascorbic acid 1000 MG tablet Commonly known as: Vitamin C Basaglar KwikPen 100 UNIT/ML pen Generic drug: insulin glargine Replaced by: insulin glargine 100 UNIT/ML injection cholecalciferol 25 MCG (1000 UT) capsule Commonly known as: Vitamin D-3 magnesium oxide 400 MG tablet Commonly known as: Mag-Ox Replaced by: magnesium oxide 400 (240 Mg) MG tablet NovoLOG FLEXPEN 100 UNIT/ML pen Generic drug: insulin aspart Where to Get Your Medications These medications were sent to [facility] [address] [place] [address] acetaminophen 500 MG tablet ergocalciferol 1.25 MG (19137 UT) capsule famotidine 20 MG tablet fenofibrate 54 MG tablet folic acid 1 MG tablet insulin glargine 100 UNIT/ML injection ipratropium-albuterol 0.5-2.5 mg/3 mL nebulizer solution losartan 25 MG tablet magnesium oxide 400 (240 Mg) MG tablet melatonin 5 MG tablet ondansetron ODT 4 MG disintegrating tablet polyethylene glycol (PEG) 3350 17 g packet sennosides 8.6 MG tablet venlafaxine XR 150 MG 24 hr capsule venlafaxine XR 75 MG 24 hr capsule You can get these medications from any pharmacy Bring a paper prescription for each of these medications Insulin Lispro 100 UNIT/ML solution injection oxyCODONE 5 MG immediate release tablet Discharge Condition: Physical Exam at the time of discharge: Please refer to the "Progress note" on day of discharge for a detailed exam. At the time of discharge the patient is stable. Discharge Instructions: Activity: no driving while on analgesics Diet: diabetic diet Discharge needs: DME The patient's OARRS report was obtained and reviewed by myself on 12/24/23.. Discharge Instructions Provided: While taking narcotic medications be sure to: Not operate heavy machinery Do not drive while taking narcotic medication Return to the emergency department if: You are very drowsy. Your speech is slurred. You have trouble thinking, remembering things, or focusing. Contact your healthcare provider if: You want help or information on how to stop using or abusing narcotics. Follow up with your healthcare provider as directed: Write down your questions so you remember to ask them during your visits. Narcotic intoxication usually lasts for several hours. You may have the following during or after you use narcotics: Behavior or mood changes, such as a great feeling followed by the feeling that you do not care about anyone or anything Trouble thinking, remembering things, or focusing Small pupils Feeling very drowsy Slurred speech Narcotic withdrawal occurs if you stop using narcotics after using them heavily over a period of time. Signs and symptoms may begin within minutes or days and continue for days or even months: Depression and anxiety Nausea or vomiting Muscle aches Watery eyes or runny nose Large pupils Sweating or goosebumps on your skin Diarrhea Fever Trouble sleeping Attestation: I spent 37 minutes on pt discharge. documented in this encounter [facility] 12-24-2023 Miscellaneous Notes Transport arranged for 1529 today to transfer pt to [facility]. RN, , TCC, son and [facility] notified. Son aware of likely copay for transport and is agreeable. Patient Choice Patient Name: BEVERLY AGEE Date of : 1945 All Providers Sent Referral Name: [facility] Phone: [phone] Address: [address] [place] [address] [address] [place] [address] Discharge med list, MAR and updated notes transmitted to [facility] via [facility] per TCC request. 7000 was entered into [employer] for the [facility] aware of insurance auth obtained for [facility]. Discharge orders noted. INSURANCE RISK MANAGER tasked to complete 7000 and send discharge paperwork. fiber optic assembly worker aware of need to transport. TCC to assist and follow as needed. Images from the original note were not included. Care Management Progress Note Patient transferred to from ICU s/p VATS 12/17/202309/28 fall. Reg 4 carb choice diet noted. Tele noted. PT/OT following. Discharge plan is [facility], auth obtained. TCC to assist and follow as needed. Discharge Milestones and Delays Expected Date/Time: 12/24/[address] discharge order Complete med reconciliation Case mgmt discharge readiness Clinical Stability Diagnsotic Workup Facility Choice Selection Facility Pre-cert Expected Discharge History Expected Date/Time Set By Reviewed At 12/24/2023 Mary Andino RN 12/24/2023 8:38 AM Pending AUTH and completion of discharge orders/med rec" 12/23/2023 Mercedes Jackson RN 12/23/2023 7:15 AM 12/23/2023 Mercedes Jackson RN 12/22/2023 7:56 AM 12/21/2023 Mary Andino RN 12/21/2023 8:57 AM 12/21/2023 Mary Andino RN 12/20/2023 8:34 AM 12/20/2023 Mary Andino RN 12/19/2023 9:06 AM VATS 12/1612/20/2023 Rhianna Chen, TYLER 12/18/2023 8:55 AM 12/20/2023 Rhianna Chen RN 12/17/2023 7:39 AM 12/19/2023 Rhianna Chen RN 12/14/2023 1:48 PM 12/16/2023 Rhianna Chen RN 12/14/2023 7:32 AM 12/16/2023 Rhianna Chen RN 12/13/2023 7:41 AM 12/16/2023 SHAKEEL Cortes 12/13/2023 2:55 AM 12/15/2023 SHAKEEL Cortes 12/13/2023 12:08 AM 12/15/2023 SHAKEEL Cortes 12/12/2023 11:49 PM Length of Stay (Days): 12 GMLOS: 7.5 Images from the original note were not included. CARE COORDINATION DAILY NOTE/UPDATE Discharge Plan: [facility] Discharge Barriers: Pending AUTH and completion of discharge orders/med rec This TCC was tasked to follow this patient through the weekend assisting with discharge planning and check on AUTH status. Chart and Careport reviewed. Auth documented as still pending. Message sent to facility asking for update on status. Expected discharge, Discharge Milestones, and Rapid Rounding reviewed and updated. TCC will continue to follow. Discharge Milestones and Delays Expected Date/Time: 12/23/[address] discharge order Complete med reconciliation Case mgmt discharge readiness Clinical Stability Diagnsotic Workup Facility Choice Selection Facility Pre-cert Expected Discharge History Expected Date/Time Set By Reviewed At 12/23/2023 Mercedes Jackson RN 12/22/2023 7:56 AM Pending AUTH and completion of discharge orders/med rec" 12/21/2023 Mary Andino RN 12/21/2023 8:57 AM 12/21/2023 Mary Andino RN 12/20/2023 8:34 AM 12/20/2023 Mary Andino RN 12/19/2023 9:06 AM VATS 12/1612/20/2023 Rhianna Chen RN 12/18/2023 8:55 AM 12/20/2023 Rhianna Chen RN 12/17/2023 7:39 AM 12/19/2023 Rhianna Chen RN 12/14/2023 1:48 PM 12/16/2023 Rhianna Chen RN 12/14/2023 7:32 AM 12/16/2023 Rhianna Chen RN 12/13/2023 7:41 AM 12/16/2023 SHAKEEL Cortes 12/13/2023 2:55 AM 12/15/2023 SHAKEEL Cortes 12/13/2023 12:08 AM 12/15/2023 SHAKEEL Cortes 12/12/2023 11:49 PM Length of Stay (Days): 11 GMLOS: 7.5 Auth is still pending. Images from the original note were not included. CARE COORDINATION DAILY NOTE/UPDATE Discharge Plan: [facility] Discharge Barriers: Pending AUTH and completion of discharge orders/med rec This TCC was tasked to follow this patient through the weekend assisting with discharge planning and check on AUTH status. Chart and Careport reviewed. Auth is still pending. TCC portion of SEAN was updated by me. Expected discharge, Discharge Milestones, and Rapid Rounding reviewed and updated. TCC will continue to follow. Discharge Milestones and Delays Expected Date/Time: 12/23/[address] discharge order Complete med reconciliation Case mgmt discharge readiness Clinical Stability Diagnsotic Workup Facility Choice Selection Facility Pre-cert Expected Discharge History Expected Date/Time Set By Reviewed At 12/23/2023 Mercedes Jackson RN 12/22/2023 7:56 AM Pending AUTH and completion of discharge orders/med rec" 12/21/2023 Mary Andino RN 12/21/2023 8:57 AM 12/21/2023 Mary Andino RN 12/20/2023 8:34 AM 12/20/2023 Mary Andino RN 12/19/2023 9:06 AM VATS 12/1612/20/2023 Rhianna Chen, TYLER 12/18/2023 8:55 AM 12/20/2023 Rhianna Chen, TYLER 12/17/2023 7:39 AM 12/19/2023 Rhianna Chen, TYLER 12/14/2023 1:48 PM 12/16/2023 Rhianna Chen, TYLER 12/14/2023 7:32 AM 12/16/2023 Rhianna Chen, TYLER 12/13/2023 7:41 AM 12/16/2023 SHAKEEL Cortes 12/13/2023 2:55 AM 12/15/2023 SHAKEEL Cortes 12/13/2023 12:08 AM 12/15/2023 SHAKEEL Cortes 12/12/2023 11:49 PM Length of Stay (Days): 10 GMLOS: 7.5 Precert pending for [facility]. Weekend TCC tasked to follow for discharge needs. Updated notes placed to [facility] via [facility] per TCC request. Await review and response regarding ability to accept. TCC notified. TCC secure message trauma, patient is medically stable for discharge. Patient and son chose [facility]. Messaged [facility] regarding bed availability and starting insurance auth. TCC to assist and follow as needed. Problem: Urinary Incontinence Goal: Perineal skin integrity is maintained or improved Outcome: Progressing Problem: Potential for Compromised Skin Integrity Goal: Skin Integrity is Maintained or Improved Outcome: Progressing Goal: Nutritional status is improving Outcome: Progressing Images from the original note were not included. Care Management Progress Note Patient transferred to from ICU s/p VATS 12/17/2023 2/2 fall. Reg 4 carb choice diet noted. Tele noted. CT out. PT/OT following, recommending [facility]. TCC to discuss with patient. Discharge plan is [facility]. TCC to assist and follow as needed. Discharge Milestones and Delays Expected Date/Time: 12/21/[address] discharge order Complete med reconciliation Case mgmt discharge readiness Clinical Stability Diagnsotic Workup Facility Choice Selection Facility Pre-cert Expected Discharge History Expected Date/Time Set By Reviewed At 12/21/2023 Mary Andino RN 12/21/2023 8:57 AM 12/21/2023 Mary Andino RN 12/20/2023 8:34 AM 12/20/2023 Mary Andino RN 12/19/2023 9:06 AM VATS 12/1612/20/2023 Rhianna Chen RN 12/18/2023 8:55 AM 12/20/2023 Rhianna Chen RN 12/17/2023 7:39 AM 12/19/2023 Rhianna Chen RN 12/14/2023 1:48 PM 12/16/2023 Rhianna Chen RN 12/14/2023 7:32 AM 12/16/2023 Rhianna Chen RN 12/13/2023 7:41 AM 12/16/2023 SHAKEEL Cortes 12/13/2023 2:55 AM 12/15/2023 SHAKEEL Cortes 12/13/2023 12:08 AM 12/15/2023 SHAKEEL Cortes 12/12/2023 11:49 PM Length of Stay (Days): 9 GMLOS: 7.5 Problem: Knowledge Deficit Goal: Patient/family/caregiver demonstrates understanding of disease process, treatment plan, medications, and discharge instructions Outcome: Progressing Problem: Potential for Compromised Skin Integrity Goal: Skin Integrity is Maintained or Improved Outcome: Progressing Goal: Nutritional status is improving Outcome: Progressing Problem: Urinary Incontinence Goal: Perineal skin integrity is maintained or improved Outcome: Progressing Problem: Problem Interventions Goal: Assess Nutritional Intake Outcome: Progressing Patient transferred to from ICU s/p VATS 12/17/202309/28 fall. Reg 4 carb choice diet noted. Tele noted. CT noted to water seal. PT/OT following. Discharge plan is [facility]. TCC to assist and follow as needed. Completed ambulance form placed on pt chart. Problem: Knowledge Deficit Goal: Patient/family/caregiver demonstrates understanding of disease process, treatment plan, medications, and discharge instructions Outcome: Progressing Flowsheets (Taken 12/19/2023 0959) Patient/family/caregiver demonstrates understanding of disease process, treatment plan, medications, and discharge instructions: Provide teaching at level of understanding Provide teaching via preferred learning methods Problem: Potential for Compromised Skin Integrity Goal: Skin Integrity is Maintained or Improved Outcome: Progressing Flowsheets (Taken 12/19/2023 0959) Skin integrity is maintained or improved: Assess and monitor skin integrity Turn patient Images from the original note were not included. Care Management Progress Note Patient transferred to from ICU s/p VATS 12/17/2023 2/2 fall. Reg 4 carb choice diet noted. Tele noted. PT following, recommending snf. OT eval order noted. Therapy see today noted. CT noted to CS noted. Discharge plan is [facility]. TCC to assist and follow as needed. Discharge Milestones and Delays Expected Date/Time: 12/20/[address] discharge order Complete med reconciliation Case mgmt discharge readiness Clinical Stability Diagnsotic Workup Facility Choice Selection Facility Pre-cert Expected Discharge History Expected Date/Time Set By Reviewed At 12/20/2023 Mary Andino RN 12/19/2023 9:06 AM VATS 12/1612/20/2023 Rhianna Chen RN 12/18/2023 8:55 AM 12/20/2023 Rhianna Chen RN 12/17/2023 7:39 AM 12/19/2023 Rhianna Chen RN 12/14/2023 1:48 PM 12/16/2023 Rhianna Chen RN 12/14/2023 7:32 AM 12/16/2023 Rhianna Chen RN 12/13/2023 7:41 AM 12/16/2023 SHAKEEL Cortes 12/13/2023 2:55 AM 12/15/2023 SHAKEEL Cortes 12/13/2023 12:08 AM 12/15/2023 SHAKEEL Cortes 12/12/2023 11:49 PM Length of Stay (Days): 7 GMLOS: 7.5 Problem: Knowledge Deficit Goal: Patient/family/caregiver demonstrates understanding of disease process, treatment plan, medications, and discharge instructions Outcome: Progressing Problem: Potential for Compromised Skin Integrity Goal: Skin Integrity is Maintained or Improved Outcome: Progressing Goal: Nutritional status is improving Outcome: Progressing Problem: Urinary Incontinence Goal: Perineal skin integrity is maintained or improved Outcome: Progressing Problem: Problem Interventions Goal: Assess Nutritional Intake Outcome: Progressing Palliative Care Interdisciplinary Team Note: Diagnosis: Principal Problem: Closed fracture of multiple ribs of right side, initial encounter Chief Complaint: Beverly Agee is a 78 y.o. female with chief complaint of: fall with rib fx Reason Palliative Following:Goals of Care Plan:Follow Clinical Course Code Status: DNR-CCA Medications: Palliative Care Not Managing Any Medications Nursing: [facility] Care and Skin Integrity Social Work: No Unmet Needs Spiritual Care: No Unmet Needs Pharmacy: No Unmet Needs Psychology/Psychiatry: No Unmet Needs Dr Hwang aware of CT drainage 250cc since OR this was expected No insulin coverage for MBS [address] Cabrera Images from the original note were not included. DEPARTMENT OF SURGERY OPERATIVE NOTE DATE OF PROCEDURE: 12/17/2023 ATTENDING SURGEON: Charlotte Braswell MD DISTRICT SALES LEADER\\S: Melinda Hwang DO PGY 5, Linda Bueno MD PGY-3 PREOPERATIVE DIAGNOSIS: 1. Rib fractures (8-10, displaced rib fractures 9, 10) 2. Retained right hemothorax 2. Fall with acute traumatic pain POSTOPERATIVE DIAGNOSIS: Same PROCEDURES PERFORMED: Video-assisted thorascopic surgery of the right chest Evacuation of moderate right hemothorax. Open reduction and internal fixation of ribs 9,10 Insertion of right 28 Fr chest tube. Intercostal nerve cryoanalgesia of spaces 5 - 10 ANESTHESIA: General anesthesia ESTIMATED BLOOD LOSS: 50 mL acute blood loss, evacuation of approximately 300 mL right hemothorax FINDINGS: Moderate retained right hemothorax (300cc) with adhesions to chest wall. Acutely displaced rib fractures 9 & 10. COMPLICATIONS: None SPECIMENS: None IMPLANTS: RibFix Lex Thoracic Fixation plates x 2 DRAINS: right 28F chest tube in 8th intercostal space. HISTORY: The patient is a 78 y.o. year old female who initially presented on 12/12 after a fall resulting in multiple right sided rib fractures and a large right hemothorax. CT chest demonstrated significant displaced of ribs 9 & 10. A chest tube was placed that drained 750 mL. Patient received multi-modal pain control but still had persistent pain of her ribs that limited her mobility. Serial CXR also showed retained right hemothorax. Therefore the risks and benefits were discussed with the patient about proceeding with a VATS, cryoablation of the intercostal nerves, and rib plating of the displaced fractures. We also specifically discussed the risk of a pseudo hernia with cryoablation of the 10th intercostal space. Given that his is the location of much of her pain, she agreed to take the risk of pseudohernia and proceed with cryoablation at this level. Informed consent was obtained for right VATS, evacuation of right hemothorax, cryoablation of multiple right intercostal nerves and ORIF of ribs 9&10. DETAILS OF PROCEDURE: The patient was brought to the operating room, placed supine on the operating room table. Endotracheal intubation was established with a double lumen endotracheal tube. Induction of general anesthesia was smooth without cardiovascular compromise. The patient received 2g Ancef as a preoperative antibiotic. A time-out was performed identifying the correct patient, necessary equipment, anticipated challenges and all were in agreement in the room as the correct patient, and procedure to be performed and the laterality of procedure was confirmed. We then placed the patient in a left lateral decubitus / right side up position with a beanbag, maintaining neutral alignment of the neck. An axillary roll was placed. All the bony prominences were padded and purple foam was used to guard the knee and the ankle as well as the elbows. The bed was flexed to maximize the intercostal spaces, with reverse Trendelenburg so that she was level. We used a fly-over arm board to secure the right arm. The previously placed chest tube was removed. The chest was prepped with chlorhexidine and then draped with ioban and in the standard sterile fashion. A 12 millimeter port was placed through the anterior 4th ICS (previous chest tube site). A 5mm 30 degree camera was inserted. The lung was adhered to the chest wall with flimsy adhesions. Modearte retained hemothorax was visualized. The lung was placed on suction to facilitate single lung ventilation. A second 12mm thoracic port was placed in the posterior axillary line 8th intercostal space. A ringed forceps was used to take down adhesions and remove clot.The thoracic cavity was irrigated and suctioned until all of the hemothorax and clot was evacuated. A total of 300cc of old hemothorax was evacuated. A third port was placed in the anterior axillary line, 3rd intercostal space and cryoablation was then performed to the intercostal nerves 5-10. A chest tube cut to size was used to insulated the cryoablation probe to avoid injury to the lung. The displaced 9th and 10th rib fractures were palpated and visualized thoracoscopically and a best-fit incision was then made over the fractures that incorporated the posterior port site. The chest wall was exposed and an Ezequiel wound retractor was placed. Subcutaneous hematoma was evacuated. The 9th and 10th rib fractures were identified and cleaned off with Bovie electrocautery. The displaced rib fracture was reduced. After sizing the rib, we selected an 8-hole RibFix Lex plate and molded it to the contour of the 10th rib so that it lay flush over the reduced rib. The rib plate was then secured with 3 screws on either side of the fracture. We had excellent anatomic alignment and secured the titanium plate. We then repeated this process for rib 9 with excellent anatomic alignment. Rib 9 had a oblique fracture pattern with missing bone fragment at the end, however we were able to secure the plate with good stabilization. Reduction and fixation was excellent for all ribs. We took one final look with the thoracoscope. The fractures were now reduced and hemothorax evacuated. A 28F chest tube was placed posteriorly under direct thoracoscopic visualization, then secured with an 2-0 Nylon suture x 2 and connected to a Pleur-evac. The lung was then reinflated. The muscle layers and the dermis of all incisions were closed with 2-0 Vicryl sutures. The skin edges were reapproximated with 3-0 Monocryl and Dermabond. Sterile dressings were applied and the chest tube was placed to suction. Chest x-ray will be ordered post procedure. The sponge, instrument and needle counts were correct at the end of the case. The patient was successfully extubated and taken to PACU in stable condition Charlotte Braswell MD Division of Trauma Department of Surgery [facility] [facility] Date: 12/17/2023 Location: [facility] OR Name: Beverly Agee, : 1945, Diagnosis Pre-op Diagnosis * Closed fracture of multiple ribs of right side, initial encounter [S22.41XA] Post-op Diagnosis * Closed fracture of multiple ribs of right side, initial encounter [S22.41XA] Procedures THORACOSCOPY DIAGNOSTIC LUNGS AND PLEURAL SPACE WITHOUT BIOPSY, CRYOABLATION 7-10, EXTERNAL RIB PLATING 62375 - NC THORSC DX LUNGS/PERICAR/MED/PLEURAL SPACE W/O BX OPEN TREATMENT OF RIB FRACTURE(S) WITH INTERNAL FIXATION INCLUDES THORACOSCOPIC VISUALIZATION 11057 - NC OPEN TX RIB FX W/FIXJ THORACOSCOPIC VIS 1-3 RIBS Right VATS, evacuation of retained R hemothorax Cryoablation of intercostal spaces 5-10 Surgical fixation of R 9th and 10th rib fractures Surgeons * Charlotte Braswell - Primary Procedure Summary Anesthesia: General ASA: III Estimated Blood Loss: 300 ml evacuated hemothorax, 50 mL additional blood loss Drains: Chest Tube 1 Right 28 Fr (Active) Function -20 cm H2O 12/17/23 1525 Chest Tube Air Leak Yes 12/17/23 1525 Patency Intervention Tip/tilt 12/17/23 1525 Drainage Description Dark red 12/17/23 1525 Dressing Status Clean, dry & intact 12/17/23 1525 Site Assessment Clean;Dry;Intact 12/17/23 1525 Surrounding Skin Intact 12/17/23 1525 External Urinary Catheter (Active) External Catheter Status Changed 12/17/23 0815 Securement Method Mesh underwear 12/17/23 0815 Collection Container Other (Comment) 12/17/23 0815 Output (mL) 250 mL 12/17/23 0815 [REMOVED] Chest Tube 1 Right Midaxillary (Removed) Function To water seal 12/17/23814 Chest Tube Air Leak No 12/17/23 0815 Patency Intervention Tip/tilt 12/17/23814 Drainage Description Bright red 12/17/23 0815 Dressing Status Clean, dry & intact 12/17/23 0815 Site Assessment Clean;Dry;Intact 12/17/23 08 Surrounding Skin Dry;Intact 12/17/23814 Output (mL) 22 mL 12/17/23 0530 Implants Type Name Action Serial No. Implant RibFix Lex 8 hole Straight Plate Implanted Implant RibFix Lex SCR S/D-L< [id number] Implanted Implant Long Temporary Fixation Screw Used, Not Implanted Implant RibFix Lex 8 hole Plate Template Used, Not Implanted Implant RibFix Lex 12 Hole Plate Template Used, Not Implanted Implant RibFix Lex SCR EMG-[id number] Implanted Staff: Police Chief Deputy: Deepa Mcnally RN Relief Police Chief Deputy: Shabnam Arriola RN; Gus Resendiz RN Relief Scrub: Zoila iWck RN Scrub Person: Charissa Emmanuel Findings: retained moderate hemothorax, significantly displaced R (9th and 10th rib fractures Complications: None; patient tolerated the procedure well. Specimens Collected: No specimens collected during this procedure. Wound Class: Class I: Clean Blood Products: None Prophylactic Antibiotics: Procedure appropriate prophylactic antibiotic(s) given within 1 hour of surgical incision (two hours if receiving Vancomycin or flouroquinolone) Images from the original note were not included. Care Management Progress Note Chart reviewed. Patient admitted to [facility] ICU s/p fall at home 12/12/2023. Consults to IP CONSULT TO ANESTHESIOLOGY IP CONSULT TO PALLIATIVE CARE IP CONSULT TO GERIATRICS IP WOUND CARE NURSE CONSULT TO EVAL Discharge Planning/Barriers: Pain control. Chest tube x1. NPO - procedure today. PT/OT pending. Discharge Plan: [facility]. Awaiting clinical stability and medical clearance. Will continue to follow with . Discharge Milestones and Delays Expected Date/Time: 12/20/[address] discharge order Complete med reconciliation Case mgmt discharge readiness Clinical Stability Diagnsotic Workup Facility Choice Selection Facility Pre-cert Expected Discharge History Expected Date/Time Set By Reviewed At 12/20/2023 Rhianna Chen RN 12/17/2023 7:39 AM VATS 12/1612/19/2023 Rhianna Chen RN 12/14/2023 1:48 PM 12/16/2023 Rhianna Chen RN 12/14/2023 7:32 AM 12/16/2023 Rhianna Chen RN 12/13/2023 7:41 AM 12/16/2023 SHAKEEL Cortes 12/13/2023 2:55 AM 12/15/2023 SHAKEEL Cortes 12/13/2023 12:08 AM 12/15/2023 SHAKEEL Cortes 12/12/2023 11:49 PM Length of Stay (Days): 5 GMLOS: 3.2 Images from the original note were not included. Care Management Progress Note Chart reviewed. Patient admitted to [facility] ICU s/p fall at home 12/12/2023. Consults to IP CONSULT TO ANESTHESIOLOGY IP CONSULT TO PALLIATIVE CARE IP CONSULT TO GERIATRICS IP WOUND CARE NURSE CONSULT TO EVAL Discharge Planning/Barriers: Chest tube. Potential for rib block tomorrow per SICU notes. TCC met with patient and sohail Medellin at bedside, notified patient that [facility] is accepting when patient is medically ready; patient agreeable. TCC tasked weekend therapies via careport. Discharge Plan: [facility]. Awaiting clinical stability and medical clearance. Will continue to follow with SW. Discharge Milestones and Delays Expected Date/Time: 12/19/[address] discharge order Complete med reconciliation Case mgmt discharge readiness Clinical Stability Diagnsotic Workup Facility Choice Selection Facility Pre-cert Expected Discharge History Expected Date/Time Set By Reviewed At 12/19/2023 Rhianna Chen RN 12/14/2023 1:48 PM 12/16/2023 Rhianna Chen RN 12/14/2023 7:32 AM 12/16/2023 Rhianna Chen RN 12/13/2023 7:41 AM 12/16/2023 SHAKEEL Cortes 12/13/2023 2:55 AM 12/15/2023 SHAKEEL Cortes 12/13/2023 12:08 AM 12/15/2023 SHAKEEL Cortes 12/12/2023 11:49 PM Length of Stay (Days): 2 GMLOS: 3.2 Images from the original note were not included. [facility] Palliative Care Transitions of Care Note Beverly Agee : 1945 ADMIT DATE: 12/12/2023 DISCHARGE DATE: TBD PRIMARY CARE PHYSICIAN: NENO IQBAL MD CODE STATUS: DNR-CCA DISCHARGE DIAGNOSES: Principal Problem: Closed fracture of multiple ribs of right side, initial encounter HOSPITAL COURSE: Fall, initial encounter - 12/11/23 - worsening breathing prompting [facility] and [facility] ICU admission 12/12/23 - resultant in displaced rib fractures and hemothorax - tells me she has been falling more frequently at home, her knees just give out, appears 2020 was seen post fall with L rib fractures Rib fractures/hemothorax - per SICU: chest tube placed 12/13/23, paxtononejr lidocaine patch - education that despite pain does need to do IS often to help prevent PNA Acute pain due to trauma - per SICU: scheduled tylenol and methocarbamol - per SICU: Prn hydromorphone and oxycodone--using both appropriately, is not oversedated - OARRS reviewed, is naive to opiates but pain is severe, she is not oversedated from medications - pain improved today compared to yesterday, still worst with cough Debility - PT/OT when able - 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, getting more forgetful per her - was able to dress and bathe herself, able to do light house keeping - up in bedside chair today - PT recommending SNF, she is open to this had been at [facility] before and would return if needed to make home more successful HX afib/CVA, HTN, HLD - prior on rivaroxaban--held for rib block with pain service - per SICU: home meds at discretion Risk for constipation - typically has BM daily, last 12/12/23 - due to immobility and opiates - per SICU: has polyethylene glycol prn, drinks enough water - hopeful to have BM today Palliative Care Encounter -DNRCCA-DNI - HCPOA is sohail Barger, she does have capacity to make medical decisions for herself - asked if has [place] DNR form, she believes she does but uncertain, aware I will fill out form and place on paper chart for portability - will continue to follow for ongoing monitoring of progression of Pain - will continue to evaluate test results related to fall with rib fractures , medication effectiveness for Pain, response to treatment of fall with rib fractures and hemothorax - follow Per notes, plan [place] SN[place]. Palliative care signing off on 12-19-23 SIGNIFICANT DIAGNOSTIC STUDIES: Labs, imaging CODE STATUS DISCUSSIONS: Dnr-cca/dni SYMPTOM MANAGEMENT MEDICATIONS: N/a RECOMMENDED NEXT STEPS: Dc when medically stable. FOLLOW UP TESTING, PENDING RESULTS OR REFERRALS AT TRANSITIONAL CARE VISIT: No PENDING STUDIES: no DISPOSITION: Skilled Rehab Facility FACILITY/HOME CARE AGENCY NAME: TBD Follow up with PCP on office to call patient. If appointment not scheduled, patient should be scheduled within tbd . Reason for Outpatient/Home/ECF Palliative Care follow-up: N/A Opiate Prescribing N/a SIGNED: RADHA Villarreal CNP 12/19/2023, 9:05 AM Palliative Care Interdisciplinary Team Note: Diagnosis: Principal Problem: Closed fracture of multiple ribs of right side, initial encounter Chief Complaint: Beverly Agee is a 78 y.o. female with chief complaint of: fall with rib fx Reason Palliative Following:Goals of Care Plan:Follow Clinical Course Code Status: DNR-CCA Medications: Palliative Care Not Managing Any Medications Nursing: [facility] Social Work: No Unmet Needs Spiritual Care: No Unmet Needs Pharmacy: No Unmet Needs Psychology/Psychiatry: No Unmet Needs [facility]erral placed to SNF - [facility] via [facility] per TCC request. Await review and response regarding ability to accept. TCC notified. Care Managment Initial Assessment Date: 12/13/2023 Patient Name: Beverly Agee : 1945 Patient Information Source of Information: Patient Cognition/Language: WFL - Within Functional Limits Permission given to speak with patient plastic products sales representative/caregiver as indicated: Yes Confirmation of Payer with patient/family: Yes Payer Name: [employer] Medicare [place]: No Confirmation of Primary Care Physician: Confirmed PCP Name: Neno Iqbal MD Seen in last 2 years?: Yes Primary Caregiver: Self If assistance needed, confirmed caregiver ready, willing and able to care for patient at discharge: Confirmed with: Living Arrangements Current Residence: House Number of Floors 1 Number of Entry Steps: 1 Bed/Bath Levels: Both first floor Facility: Facility Name: Plan to Return: Lives with: Alone Support Systems: Children, Family members, Friends/neighbors Activities of Daily Living Ambulation: Independent Bathing/Dressing: Independent Elimination/Continence/Toileting: Independent Feeding: Independent Who Assists with Activities of Daily Living: Instrumental Activities of Daily Living Prescription Coverage: Yes Pharmacy Used: [facility] - [address] Medication Management: Independent Transportation/Shopping: Assistance Provider Transportation/Shopping Assistance Provider Name: family Transportation Mode: Car Needs Assistance with Transportation at Discharge: No Meal Preparation: Assistance Provider Meal Prep Assistance Provider Name: Meals on Wheels Laundry/Cleaning: Assistance Provider Laundry/Cleaning Assistance Provider Name: private pay Finances/Bill Paying: Assistance Provider Finances/Bill Payer Assistance Provider Name: Vignesh Communication: Independent, Emergency Call System Types of Care Services/Equipment Utilized Care Services: Skilled Home Health Services Care Services Provider Name: PT Dialysis Type: Durable Medical Equipment: Cane, Walker, Shower Seat, Glucometer Patient's Goal/Discharge Plan Patient expects to be discharged to: [facility] Discharge Planning Actions: Continue to follow, [facility] Facility referral indicated [place] of choice: [place] of choice discussed, Choice list provided Patient's Choice Rights and [employer] and Collaborative Relationships Disclosed as Indicated for Post-Acute Care: Yes Interdisciplinary Team Engagement: PT/OT Social Work Referral for: Transportation Assistance Additional Information: Chart reviewed. Patient admitted to [facility] ICU s/p fall at home 12/12/2023. Consults to IP CONSULT TO ANESTHESIOLOGY IP CONSULT TO PALLIATIVE CARE IP CONSULT TO GERIATRICS IP WOUND CARE NURSE CONSULT TO EVAL Initial Assessment: PPE worn. Spoke with patient at bedside. Introduced myself and role as TCC. IA complete. Patient personal information confirmed. Patient from home alone, independent in ADLs and iADLs, and drives. Patient has insurance, prescription coverage, and active with PCP. Discussed discharge planning. Patient agreeable to SNF, requesting referral to [facility] as she has been there before. [facility] printed list and asked for additional choices. Patient plans to discuss with sohail Medellin. [facility] tasked INSURANCE RISK MANAGER to send referral to [facility] via careport. Discharge Planning/Barrier: 3LNC - none baseline. Chest tube x1. IVABX. PT recs noted. OT pending. Discharge Plan: SNF. Awaiting clinical stability and medical clearance. Will continue to follow with SW. Rhianna Chen RN TCC notes LACE & Readmission Score >58. TCC completed referral to Ambulatory Transition Care Team. documented in this encounter [facility] 12-24-2023 Hospital Discharge instructions RADHA Miller CNP - 12/24/2023 10:50 AM EDT Use Incentive Spirometer ten times per hour while awake. RADHA Miller CNP - 12/24/2023 10:28 AM EDT Carb Control Diet Ajit Razo RN - 12/21/2023 11:28 AM EDT Images from the original note were not included. Continuity of Care Form Patient Name: Beverly Agee : 1945 Admit date: 12/12/2023 Discharge date: 12/24/23 Code Status Order: DNR-CCA Advance Directives: N Admitting Physician: Charlotte Braswell MD PCP: NENO IQBAL MD Discharging Nurse: Ajit Reyes Hospital Unit/Room#: [id number]/[id number] A Discharging Unit Emergency Contact: Extended Emergency Contact Information Primary Emergency Contact: FélixCharbel Relation: Child Secondary Emergency Contact: Marbin Agee Relation: Child Past Surgical History: Past Surgical History: Procedure Laterality Date BREAST LUMPECTOMY Left BREAST LUMPECTOMY Left 2012 s/p radiation as well CATARACT EXTRACTION W/ INTRAOCULAR LENS IMPLANT Bilateral 10/2015, 12/2015 SECTION (HISTORICAL) CHOLECYSTECTOMY DILATION AND CURETTAGE OF UTERUS FEMUR FRACTURE SURGERY Right 11/30/2019 HIP ARTHROPLASTY Right 01/21/2020 conversion JOINT REPLACEMENT Bilateral ROTATOR CUFF REPAIR Right TOTAL ABDOMINAL HYSTERECTOMY Immunization History: Immunization History Administered Date(s) Administered Influenza Whole 06/27/2012, 05/21/2013 Influenza, High Dose Seasonal, Preservative Free 08/11/2015, 08/07/2016, 06/06/2017, 07/02/2017, 07/21/2019, 06/28/2022 Influenza, High-dose Seasonal, Quadrivalent, Preservative Free 07/04/2021 Influenza, Unspecified 06/27/2012, 05/21/2013, 07/10/2014 Influenza, seasonal, injectable 07/10/2014, 08/11/2015 Pfizer SARS-CoV-2 Vaccination 11/12/2020, 12/02/2020, 06/16/2021 Pneumococcal Conjugate PCV 13 08/11/2015 Pneumococcal Conjugate, Unspecified 08/01/2012 Pneumococcal Polysaccharide PPSV23 08/07/2016 Active Problems: Medical Problems Problem List * (Principal) Closed fracture of multiple ribs of right side, initial encounter Noncompliance with treatment regimen Weakness UTI (urinary tract infection) Hyperglycemia Mood disorder (HCC) Overview Signed 06/23/2022 9:33 AM by Corin Lucero MA Last Assessment & Plan: Unsure ofstability of patient on Effexor and Remeron and compliance for diabetic management. Closed fracture of one rib of left side Hemothorax Anticoagulated H/O: CVA (cerebrovascular accident) Tobacco dependence syndrome Hip fracture requiring operative repair, right, closed, initial encounter (HCC) Memory impairment Examination of participant in clinical trial Malignant neoplasm of upper-outer quadrant of female breast (HCC) Fall Leukocytosis Closed fracture of hip (HCC) Unsteady gait Type 2 diabetes mellitus with hyperglycemia, with long-term current use of insulin (HCC) Acute cystitis E-coli UTI Obesity History of radial keratotomy Psychophysiological insomnia Hypomagnesemia Essential hypertension Overview Signed 06/23/2022 9:33 AM by Corin Lucero MA Last Assessment & Plan: Controlled on losartan. Mixed anxiety depressive disorder Hyperlipidemia Overview Signed 06/23/2022 9:33 AM by Corin Lucero MA Last Assessment & Plan: Uncertain control since patient has not had any lab work done on pravastatin. Atrial fibrillation (HCC) Isolation/Infection: No active isolations No active infections Nurse Assessment: Last Vital Signs: BP 120/70 (BP Location: Left arm, Patient Position: Sitting) Pulse 90 Temp 36.2 C (97.2 F) (Temporal) Resp 16 Ht 1.6 m (5' 3") Wt 72.6 kg (160 lb) SpO2 97% BMI 28.34 kg/m Last documented pain score (0-10 scale): Last Weight: Wt Readings from Last 1 Encounters: 12/12/23 72.6 kg (160 lb) Mental Status: SEAN Patient Mental Status: oriented IV Access: SEAN IV Access: None Nursing Mobility/ADLs: Walking Minimal assistance Transfer Minimal assistance Bathing Minimal assistance Dressing Minimal assistance Toileting Minimal assistance Feeding Independent Photography Intern Minimal assistance Med Delivery yes Wound Care Documentation and Therapy: Wound/Incision 12/12/23 Pressure Injury Sacrum Medial (Active) Wound Image 12/13/23314 Site Assessment Clean;Dry 12/20/232005 Lisa-Wound Assessment Blanchable erythema;[place] 12/14/231999 Wound Length (cm) 0.6 cm 12/13/23 08 Wound Width (cm) 0.3 cm 12/13/23 0800 Wound Surface Area (cm^2) 0.18 cm^2 12/13/23 08 Wound Depth (cm) 0.2 cm 12/13/23 0800 Wound Volume (cm^3) 0.036 cm^3 12/13/23 0800 Odor None 12/20/232005 Drainage Amount None 12/20/232005 Treatments Pharmaceutical agent 12/20/232005 Primary Dressing Open to air 12/20/232005 Number of days: 8 Wound/Incision 12/17/23 Incision Flank Right (Active) Site Assessment Clean;Dry;Intact 12/21/23 0814 Odor None 12/20/232005 Drainage Amount None 12/20/232005 Treatments Site care 12/18/232019 Primary Dressing Transparent film 12/21/23 0814 Dressing Status Clean, dry & intact 12/21/23 0814 Number of days: 4 Elimination: Continence: Bowel: yes Bladder: no Urinary Catheter: None Colostomy/Ileostomy/Ileal Conduit: None Date of Last BM: 12/23/23 Intake/Output Summary (Last 24 hours) at 12/21/2023 1128 Last data filed at 12/21/2023 0448 Gross per 24 hour Intake -- Output 600 ml Net -600 ml I/O last 3 completed shifts: In: - (0 mL/kg) Out: 1140 (15.7 mL/kg) [Urine:1100 (0.4 mL/kg/hr); Chest Tube:40] Weight: 72.6 kg Safety Concerns: at risk for falls Impairments/Disabilities: none Nutrition Therapy: Current Nutrition Therapy: Oral diet: general Routes of Feeding: oral Liquids: thin liquids Daily Fluid Restriction: no Last Modified Barium Swallow with Video (Video Swallowing Test): not done Treatments at the Time of Hospital Discharge: Respiratory Treatments: n/a Oxygen Therapy: is not on home oxygen therapy. Ventilator: No ventilator support Rehab Therapies: physical therapy, occupational therapy, and nursing Weight Bearing Status/Restrictions: no restriction Other Medical Equipment (for information only, NOT a DME order): wheeled walker Other Treatments: Patient's personal belongings (please select all that are sent with patient): none RN SIGNATURE: MANAGEMENT/SOCIAL WORK SECTION Inpatient Status Date: 12/12/23 Readmission Risk Assessment Score: @READMISSIONRISKDETAILS@ Discharging to Facility/ Agency [facility] None * COVID-19: Positive patients under care,* COVID-19: Willing/Equipped to accept COVID-19 positive patients,* High-Risk Isolation Patients: Willing/Equipped to accept High-Risk Isolation Patients [address] [facility] [address] [place] [address] [facility] [phone] [place] [address] Hydroelectric Systems Technician/Roll Dough Divider signature: ICIAN SECTION Prognosis: good Condition at Discharge: stable Rehab Potential (if transferring to Rehab): good Recommended Labs or Other Treatments After Discharge: BMP 12/25/23-Monitor hyponatremia. Glucose checks ac and hs-follow sliding scale insulin orders as in AVS, Physician Certification: I certify the above information and transfer of Beverly Agee is necessary for the continuing treatment of the diagnosis listed and that she requires intermediate facility for less than 30 days. Update Admission H&P: No change in H&P PHYSICIAN SIGNATURE: documented in this encounter [facility] 12-16-2023 Consult note Associated Order (s): IP CONSULT TO ANESTHESIOLOGY PAGING: The Acute Pain Service providers are available exclusively via BriefMe SECURE CHAT. APS does not utilize pagers. 12/16/2023 BLOCK COMMUNICATION NOTE Patient/MRN Beverly Agee [id number] Room T[address] C/A/P 12/12/23 There are multiple posterior right rib fractures including 8,9,10. Ribs #9 and 10 are displaced with surrounding locules of air. The bones are osteopenic. Old LEFT rib fractures #5,6,10,11. Ribs #6 and 10 are not united. Multilevel endplate degenerative changes are present. There is a soft tissue hematoma posterior to the right rib fractures with associated air locules within the muscle. This measures in greatest axial dimension 1.9 x 4.1 cm. Block requested Rib Block: RIGHT IOVERA Exclusion Criteria: Polytrauma? no Hx of Chronic Pain? no Hx of Narcotic dependence/substance abuse? no Inclusion Criteria: 4 or less rib fractures? no Fractures between ribs 3-11? yes A+O yes Can be positioned prone? no Platelets Lab Results Component Value Date PLT 248 12/16/2023 PLT 199 12/15/2023 PLT 183 12/14/2023 Anticoagulants? Inpatient: lovenox Last dose: has been held Outpatient: Xarelto: Last dose: 12/12/23 Pt seen and examined. Right rib pain is moderate, continuous, worse with deep breaths and movement. Is using incentive spirometer. Recommend Exparel block. Plan for block 12/17/23 due to OR burden over the weekend. Lovenox will need held. Consent on chart. Thank you. Hold parameters: Xarelto: 72h ; Lovenox: 24h if therapeutic, 12 hours if prophylactic NG: The Acute Pain Service providers are available exclusively via BriefMe SECURE CHAT. APS does not utilize pagers. Associated Order(s): IP CONSULT TO GERIATRICS Images from the original note were not included. [facility] Inpatient Consult Service Admission Date: 12/12/2023 Admission Status: INPATIENT Chief Complaint Patient presents with Rib Injury Shortness of Breath Reason for Appointment Geriatrics consulted for fall at home with rib fx, hemothorax Primary Care Physician:NENO IQBAL MD Assessment & Plan Principal Problem: Closed fracture of multiple ribs of right side, initial encounter Rib fractures/Lumbar fracture/Acute pain due to trauma -Agree with scheduled tylenol (1000 mg q 8 hours) unless otherwise contraindicated. -If narcotics are required recommend using lowest effective dose of oral narcotic as needed for breakthrough pain. -Optimize nonpharmacologic pain treatment modalities. -Ensure that bowel regimen is in place while on narcotic regimen. -Outpatient work-up for osteoporosis as clinically indicated. Fall/Recurrent falls -Multiple risk factors including weakness, chronic pain, and possible medication side effect -Continue PT/OT as able while inpatient -Vitamin D pending -Check orthostatic vital signs as able -Medications with associated fall risk include:insulin, losartan Debility/Physical deconditioning -Likely contributing to recurrent falls. -Fairly sedentary at home which likely contributed to unstageable pressure ulcer. -Therapy recommending SNF. -Mrs. Agee is in agreement with SNF at discharge. Memory loss -At risk for major neurocognitive disorder of vascular etiology given history of stroke. -Appointment information for [facility] included in discharge paperwork. History of thromboembolic stroke -In 2016 -[place] to be secondary to atrial fibrillation. She was started on anticoagulation by EP at that time. -Given previous stroke secondary to a.fib, I would be hesitant to discontinue her anticoagulation but defer to cardiology to determine if recurrent falls warrant trial off of anticoagulation. Generally literature does support the risk of stroke off anticoagulation as outweighing the risk of subdural hematoma or ICH due to a fall on oral anticogulation. Polypharmacy -Dispense history reviewed and meds discussed with patient. -No longer on mirtazapine. Discontinued here in the hospital. -Agree with holding antihypertensives in the setting of hypotension. At risk for delirium -Risk factors for this patient include:advanced age, pain, medication effect -Delirium protocol - Continue evidence-based nonpharmacologic interventions for prevention and treatment of delirium: - redirect/reorient/reassure frequently - avoid restraints and instead utilize sitter as needed for safety - early mobilization as medically appropriate, OOB for meals as able - have patient use glasses and hearing aides - use familiar objects (family photos and items from home) - sleep hygiene, limit nighttime care to promote sleep/wake cycle - hydrate and encourage PO intake when medically appropriate - minimize/camouflage lines and tethers as able - minimize narcotics as long as pain is adequately controlled - avoid benzos and anticholinergic medications -Avoid antipsychotics unless patient is a danger to themselves or others. -Encourage PO intake, time up in chair, family visits, supervised ambulation, and sleep hygiene -If agitated, assess for and consider treating for pain -Continue scheduled melatonin at HS -Monitor for constipation/urinary retention - last BM unknown During this encounter, I spent 75 minutes. . Follow-up: will follow with you Unless otherwise stated, the above assessment and plan has either been discussed with the consulting service or brought to their attention through notification that the consult was completed with recommendations available for review. Subjective: HPI 78 y.o. year-old femalepresented after a fall she has a past medical history of Arrhythmia, Arthritis, Atrial fibrillation ([facility]), Breast CA ([facility]), Cancer ([facility]) ([facility]) (09/30/2012), Cerebral artery occlusion with cerebral infarction ([facility]) (07/2016), Depression, History of blood transfusion, Hyperlipidemia, Hypertension, and Type II or unspecified type diabetes mellitus without mention of complication, not stated as uncontrolled ([facility]). She has no past medical history of AAA (abdominal aortic aneurysm) ([facility]), Asthma, CAD (coronary artery disease), CHF (congestive heart failure) ([facility]), COPD (chronic obstructive pulmonary disease) ([facility]), Hemodialysis patient ([facility]) ([facility]), blood clots, MDRO (multiple drug resistant organisms) resistance, Syncope and collapse, or Thyroid disease. The following is summarized from chart review and the admission history and physical for this patient: Fell 2 days prior to admission and was found to have rib fractures at her PCPs office. Prsented to [place] ED. With SOB, tachycardia, hypotension and hypoxia. WBC elevated on admission. Trending down. Had hemothorax and pleural effusion. She had a chest placed. Xarelto held due to bleeding. Age indeterminate superior endplate fracture of L5 also noted. Falls have been recurrent over the past year. She has been doing home PT over the past month. The patient is new to me Lives alone. Has three sons. . Therapy recommendations: PT: SNF Conversation with patient: -She is not sure how she fell. Feels that her legs just give out. States that she was using her walker when she fell. Says that occasionally her legs buckle. THInks that she has had 7-10 falls in the last year. -Reports pain with she takes a deep breath in. She lives alone, but no longer drives. Son has taken over bills and medications. -She has been getting PT at home once a week. -She denies any episodes of dizziness. She denies any palpitations. Says that she had palpitations before she was treated for atrial fibrillation. She had a stroke in 2016. -She takes trazodone PRN for sleep. -She denies any confusion inpatient and her son confirms this. She does note that her memory is poor. -She wears a medical alert device that detects falls. Conversation with caregiver: sonVignesh -Her son states that her legs have been getting progressive weaker over the past year. -He confirms that she has had several falls. She fractured her hip after one fall in 2019 . She transitioned to SNF after that. HE does feel that she improved functionally for some time after rehab. Notes that she tends to sit a fair amount at home. -Vignesh states that he has noticed a decline in her short term memory since her stroke. -Vignesh will be able to provide POA paperwork next week. 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 Depression History of blood transfusion Hyperlipidemia Hypertension Type II or unspecified type diabetes mellitus without mention of complication, not stated as uncontrolled (HCC) Past Surgical History: Procedure Laterality Date BREAST LUMPECTOMY Left BREAST LUMPECTOMY Left 2012 s/p radiation as well CATARACT EXTRACTION W/ INTRAOCULAR LENS IMPLANT Bilateral 10/2015, 12/2015 SECTION (HISTORICAL) CHOLECYSTECTOMY DILATION AND CURETTAGE OF UTERUS FEMUR FRACTURE SURGERY Right 11/30/2019 HIP ARTHROPLASTY Right 01/21/2020 conversion JOINT REPLACEMENT Bilateral ROTATOR CUFF REPAIR Right TOTAL ABDOMINAL HYSTERECTOMY Social History Tobacco Use Smoking status: Every Day Packs/day: .75 Types: Cigarettes Smokeless tobacco: Never Substance Use Topics Alcohol use: Yes Alcohol/week: 0.0 standard drinks of alcohol Social History Social History Narrative Not on file Family History Family History Problem Relation Name Age of Onset Asthma Son Thyroid disease Brother Cancer Mother Cancer Father Thyroid disease Mother Cancer Brother Asthma Son Asthma Son Family Status Relation Name Status Son Alive Brother Mother Father Brother Son Alive Son Alive Sister Parents are as above Current Meds acetaminophen, 1,000 mg, Oral, q8h ceFAZolin, 1,000 mg, IntraVENous, q8h insulin glargine, 30 Units, SubCUTAneous, BID insulin lispro, 0-18 Units, SubCUTAneous, Nightly ipratropium-albuterol, 3 mL, Nebulization, BID Lidocaine, 1 patch, TransDERmal, Daily melatonin, 5 mg, Oral, Nightly methocarbamol, 500 mg, Oral, q8h mirtazapine, 30 mg, Oral, Nightly pravastatin, 80 mg, Oral, Daily stomahesive in petrolatum, , Topical, q8h venlafaxine XR, 150 mg, Oral, Daily with breakfast PRN medications: dextrose, dextrose, glucagon (rDNA), glucose, HYDROmorphone OR HYDROmorphone, naloxone, ondansetron ODT OR ondansetron, oxyCODONE OR oxyCODONE, polyethylene glycol (PEG) 3350, stomahesive in petrolatum Home Meds No current facility-administered medications on file prior to encounter. Current Outpatient Medications on File Prior to Encounter Medication Sig cholecalciferol (D3-5) 5,000 Units tablet Take 5,000 Units by mouth in the morning. cyanocobalamin (Vitamin B-12) 1000 MCG tablet Take 500 mcg by mouth in the morning. fenofibrate (Tricor) 145 MG tablet Take 1 tablet (145 mg) by mouth in the morning. insulin aspart (NovoLOG FLEXPEN) 100 UNIT/ML pen Inject 10 Units under the skin in the morning and 10 Units at noon and 10 Units in the evening. Inject with meals. insulin aspart (NovoLOG) 100 UNIT/ML pen Inject 10 Int'l Units under the skin. insulin glargine (Basaglar KwikPen) 100 UNIT/ML pen Inject 30 Units under the skin 2 times daily. losartan (Cozaar) 50 MG tablet Take 1 tablet (50 mg) by mouth in the morning. Take 50 mg by mouth in the morning.. magnesium oxide (Mag-Ox) 400 MG tablet Take 1 tablet (400 mg) by mouth in the morning and 1 tablet (400 mg) before bedtime. mirtazapine (Remeron) 30 MG tablet Take 1 tablet (30 mg) by mouth Nightly. pravastatin (Pravachol) 80 MG tablet Take 1 tablet (80 mg) by mouth in the morning. rivaroxaban (Xarelto) 20 MG tablet TAKE 1 TABLET BY MOUTH EVERY MORNING WITH BREAKFAST venlafaxine XR (Effexor XR) 150 MG 24 hr capsule TAKE 1 CAPSULE BY MOUTH TWICE DAILY Geriatrics ED screen: Quick Cognitive Screen (QCS): Nursing Delirium Screen (Nu-Desc): Review of Systems Respiratory: Positive for shortness of breath. Cardiovascular: Positive for leg swelling. Negative for palpitations. Genitourinary: Positive for decreased urine volume. Neurological: Negative for dizziness, syncope and numbness. Psychiatric/Behavioral: Memory loss Functional Status Prior to Admission: (I: Independent, A: Assisted, D: Dependent) ADLs I A D Notes Bathing [x] [] [] Dressing [x] [] [] Toileting [x] [] [] Transfers [x] [] [] Feeding [x] [] [] Ambulation [] [x] [] Assistive devices: straight cane and walker IADLs I A D Telephone [x] [] [] Transportation [] [x] [] No longer drives Shopping [] [x] [] Delivered (starting 3-4 weeks ago) Meal prep [] [x] [] Delivered Housework [] [x] [] Son assists Medications [] [x] [] Son now manages Finances [] [x] [] Son now manages Objective: BP (!) 85/48 Pulse 70 Temp 36.2 C (97.2 F) (Temporal) Resp 16 Ht 5' 3" (1.6 m) Wt 160 lb (72.6 kg) SpO2 96% BMI 28.34 kg/m I/O last 3 completed shifts: In: 1510 (20.8 mL/kg) [I.V.:510 (7 mL/kg); IV Piggyback:1000] Out: 800 (11 mL/kg) [Chest Tube:800] Weight: 72.6 kg I/O this shift: In: - Out: 250 [Chest Tube:250] Physical Exam Constitutional: General: She is not in acute distress. Cardiovascular: Rate and Rhythm: Normal rate. Heart sounds: No murmur heard. Pulmonary: Comments: Shallow breaths, pain with inspiration Abdominal: General: Bowel sounds are normal. Palpations: Abdomen is soft. Musculoskeletal: Right lower leg: Edema present. Left lower leg: Edema present. Skin: General: Skin is warm and dry. Neurological: Mental Status: She is alert and oriented to person, place, and time. Psychiatric: Attention and Perception: Attention normal. Mood and Affect: Mood normal. Speech: Speech normal. Behavior: Behavior is cooperative. Thought Content: Thought content normal. Cognition and Memory: Memory normal. Judgment: Judgment normal. Cognitive Assessment: Full cognitive assessment not performed. Patient currently hypotensive. Clock draw was abnormal. See media tab. No longer driving. Significant results reviewed and summarized below: Labs and Imaging: Recent Results (from the past 24 hour(s)) ECG 12 lead Collection Time: 12/12/23 9:58 PM Result Value Ref Range Heart Rate 112 bpm QRSD Interval 79 ms QT Interval 331 ms QTC Interval 454 ms P Gifford 17 degrees QRS Gifford -49 degrees T Wave G[place] 35 degrees NC Interval 145 ms CBC auto differential Collection Time: 12/12/23 10:28 PM Result Value Ref Range Auto WBC 16.5 (H) 3.6 - 10.7 10*3/uL RBC 4.41 3.80 - 5.20 10*6/uL Hemoglobin 13.1 11.7 - 16.0 g/dL Hematocrit 39.6 35.0 - 47.0 % MCV 89.8 77.0 - 99.0 fL MCH 29.7 26.0 - 34.0 pg MCHC 33.1 30.5 - 36.0 % RDW 13.3 11.5 - 15.0 % Platelets 312 140 - 440 10*3/uL MPV 9.8 9.0 - 12.7 fL nRBC 0.0 0.0 - 2.0 /100 WBCs Neutrophils Relative 75.6 38.0 - 82.0 % Lymphocytes Relative 15.3 15.0 - 45.0 % Monocytes Relative 7.4 5.0 - 13.0 % Eosinophils Relative 0.4 0.0 - 6.0 % Basophils Relative 0.4 0.0 - 2.0 % Immature Grans % 0.9 0.0 - 2.0 % Neutrophils Absolute 12.5 (H) 1.8 - 7.5 10*3/uL Lymphocytes Absolute 2.5 1.0 - 4.3 10*3/uL Monocytes Absolute 1.2 (H) 0.0 - 0.9 10*3/uL Eosinophils Absolute 0.1 0.0 - 0.5 10*3/uL Basophils Absolute 0.1 0.0 - 0.2 10*3/uL Immature Grans Absolute 0.2 (H) <0.1 10*3/uL Troponin, with Serial Reflex Collection Time: 12/12/23 10:28 PM Result Value Ref Range TROPONIN I <0.012 <0.034 ng/mL NT PRO BNP Collection Time: 12/12/23 10:28 PM Result Value Ref Range NT PRO BNP 418 (H) <20 - 300 pg/mL Comprehensive metabolic panel Collection Time: 12/12/23 10:28 PM Result Value Ref Range SODIUM 134 (L) 135 - 145 mmol/L POTASSIUM 4.1 3.5 - 5.1 mmol/L CHLORIDE 99 98 - 107 mmol/L CARBON DIOXIDE 24 22 - 30 mmol/L ANION GAP 11 3 - 13 mmol/L UREA NITROGEN 21 (H) 7 - 17 mg/dL CREATININE 0.92 0.52 - 1.04 mg/dL GLUCOSE 299 (H) 70 - 100 mg/dL CALCIUM 10.1 8.4 - 10.4 mg/dL AST (SGOT) 18 15 - 46 U/L ALT 13 0 - 34 U/L ALKALINE PHOSPHATASE 52 38 - 126 U/L ALBUMIN 3.7 3.5 - 5.0 g/dL BILIRUBIN, TOTAL 0.8 0.2 - 1.3 mg/dL TOTAL PROTEIN 6.5 6.3 - 8.2 g/dL eGFR 64.7 >60.0 mL/min/1.73m*2 D-dimer, quantitative Collection Time: 12/12/23 10:28 PM Result Value Ref Range D-DIMER, INNOVANCE 0.57 (H) <0.50 mg/L Troponin I Collection Time: 12/13/23 1:46 AM Result Value Ref Range TROPONIN I <0.012 <0.034 ng/mL Troponin I Collection Time: 12/13/23 4:34 AM Result Value Ref Range TROPONIN I <0.012 <0.034 ng/mL CBC Collection Time: 12/13/23 4:34 AM Result Value Ref Range Auto WBC 12.9 (H) 3.6 - 10.7 10*3/uL RBC 3.79 (L) 3.80 - 5.20 10*6/uL Hemoglobin 11.1 (L) 11.7 - 16.0 g/dL Hematocrit 33.8 (L) 35.0 - 47.0 % MCV 89.2 77.0 - 99.0 fL MCH 29.3 26.0 - 34.0 pg MCHC 32.8 30.5 - 36.0 % RDW 13.3 11.5 - 15.0 % Platelets 248 140 - 440 10*3/uL MPV 9.7 9.0 - 12.7 fL Protime-INR Collection Time: 12/13/23 4:34 AM Result Value Ref Range PROTHROMBIN TIME 12.1 (H) 9.0 - 12.0 s INR 1.1 0.9 - 1.1 Basic metabolic panel Collection Time: 12/13/23 4:34 AM Result Value Ref Range SODIUM 134 (L) 135 - 145 mmol/L POTASSIUM 4.3 3.5 - 5.1 mmol/L CHLORIDE 104 98 - 107 mmol/L CARBON DIOXIDE 24 22 - 30 mmol/L UREA NITROGEN 27 (H) 7 - 17 mg/dL CREATININE 1.12 (H) 0.52 - 1.04 mg/dL GLUCOSE 292 (H) 70 - 100 mg/dL CALCIUM 9.6 8.4 - 10.4 mg/dL ANION GAP 6 3 - 13 mmol/L eGFR 51.1 (L) >60.0 mL/min/1.73m*2 POCT glucose meter Collection Time: 12/13/23 8:24 AM Result Value Ref Range Glucose 230 (H) 70 - 100 mg/dL Hemoglobin and hematocrit, blood Collection Time: 12/13/23 10:29 AM Result Value Ref Range Hemoglobin 10.4 (L) 11.7 - 16.0 g/dL Hematocrit 32.2 (L) 35.0 - 47.0 % No results found for: "TSH" No components found for: "B12" No results found for: "VITD25" POCT glucose meter [facility]formed by: [facility], [address] [place] [address] CLIA ID: [id number] XR chest 1 view Narrative: [facility] 1945 [id number] Exam Date/Time: 12/13/2023 04:41 Procedure: XR CHEST 1 VIEW Ordering Provider: BRASWELL LAURA Reason For Exam: s/p right chest tube insertion for hemopneumothorax CLINICAL INFORMATION: Shortness of breath. Hemopneumothorax. Right-sided chest tube now in place. Portable view of the chest at 0435 hours is provided and compared to a previous CT dated December 12, 2023. FINDINGS: A chest tube is now in place on the right. The sizable effusion is been evacuated. There is no significant pneumothorax. Emphysematous changes are noted diffusely. Impression: 1. New right-sided chest tube. 2. No pneumothorax. Report Dictated on Electronically Signed By: Chico Noguera MD Electronically Signed Date/Time: 12/13/2023 4:52 AM EDT Reviewed: active problem list, medication list, lab results, imaging Birdie Steele MD 12/13/2023 1:26 PM Comment: Please note that portions of this report were produced using speech recognition software and may contain errors related to that system including errors in grammar, punctuation, and spelling, as well as words and phrases that may be inappropriate. If there are any questions or concerns please feel free to contact the dictating provider for clarification. Associated Order(s): IP CONSULT TO PALLIATIVE CARE Images from the original note were not included. Palliative Care Initial Consult Chief Complaint: Beverly Agee is a 78 y.o. female with chief complaint of fall, initial encounter. Palliative Care is actively following. Assessment/Plan Fall, initial encounter - 12/11/23 - worsening breathing prompting [facility] and [facility] ICU admission 12/12/23 - resultant in displaced rib fractures and hemothorax - tells me she has been falling more frequently at home, her knees just give out, appears 2020 was seen post fall with L rib fractures Rib fractures/hemothorax - per SICU: chest tube placed this morning, duonebs, lidocaine patch - education that despite pain does need to do IS often to help prevent PNA Acute pain due to trauma - per SICU: scheduled tylenol and methocarbamol - per SICU: Prn hydromorphone and oxycodone - OARRS reviewed, is naive to opiates but pain is severe Debility - PT/OT when able - 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, getting more forgetful per her - was able to dress and bathe herself, able to do light house keeping HX afib/CVA, HTN, HLD - prior on rivaroxaban - per SICU: home meds at discretion Risk for constipation - typically has BM daily, last yesterday - due to immobility and opiates - per SICU: has polyethylene glycol prn Palliative Care Encounter -full code - consulted for goals of care - , has 3 sons, oldest is Charbel "Vignesh" who knows most of her medical issues and is HCPOA should she not be able to make her own decisions - tells me she and her sons have had discussions regarding if she worsened as she would not want to be resuscitated nor would she want to be placed on life supports knowing she would . Tells me she and her former Dandre discussed that in detail. Will place [id number], okay for ICU level of care, updated SICU team - will continue to follow for ongoing monitoring of progression of Pain - will continue to evaluate test results related to fall with rib fractures , medication effectiveness for Pain, response to treatment of fall with rib fractures and hemothorax - follow Total of 65 minutes spent on this encounter including Chart review, Patient visit and exam, Documentation in EHR, Care coordination, Communicating with primary attending or other consultants, Electronic bordereau clerk of medications, tests or procedures, and Counseling and educating patient/family/caregiver. Discharge planning: Not ready for discharge due to medical instability Patient meets criteria for general inpatient hospice care including the following: N/A - Palliative Care Patient Referrals to: None Discussed patient and the plan of care with the other interdisciplinary team (IDT) members of Palliative Care Team, and with Primary Attending, Patient, and Floor Nurse Insert attestation statement here if applicable (.disupervision) or (.npattest) I have discussed the patient's case and plan of care with my collaborating physician Dr. Narvaez Subjective: Hospital days prior to consult: 0 Trauma Consult: yes. (If yes, please add .traumapall daniel for tracking purposes.) This is a Palliative Care consultation in a Trauma patient. Subjective/Events Beverly Agee is a 78 y.o. female living alone at home, independent, more frequent falls as knees just give out, PMHx includes: afib on OAC, breast cancer, CVA, depression, HTN, HLD, DM2, suffered fall against table resultant in R sided rib fractures, seen at urgent care day of fall. Worsening pain and increased work of breathing went to [facility] CT chest revealing hemothorax and transferred to [facility] T2 ICU level of care to trauma service, requiring chest tube insertion this morning. Given elderly fall with rib fractures palliative care consulted for goals of care. Patient awake in bed in obvious pain R ribs, no CP, abdominal pain, breathing fair, positive cough, no nausea, vomiting, BM yesterday, [employer] appetite had not been great but has slowly reduced appetite in a number of years, does not believe she has lost much weight though since Benigno time. Pain Assessment (If Pain Scale >0) Description: sharp and stabbing Nonverbal patients: Grimacing, Posturing, and Restlessness Duration: day(s) Frequency:Daily Location: R sibs Alleviating Factors: pain medication Exacerbating Factors: movement, deep breathing and coughing mostly Effect:Change in Function, Interference with Activities, and Sleep Goals of care:Continue Current Management Functional Assessment: PPS: 80% Advance Directives: Full Code Surrogate: Child Prognosis: unknown Spiritual assessment: No spiritual distress identified Bereavement and grief: Grief Issues Not Identified 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 Depression History of blood transfusion Hyperlipidemia Hypertension Type II or unspecified type diabetes mellitus without mention of complication, not stated as uncontrolled (HCC) Past Surgical History: Procedure Laterality Date BREAST LUMPECTOMY Left BREAST LUMPECTOMY Left 2012 s/p radiation as well CATARACT EXTRACTION W/ INTRAOCULAR LENS IMPLANT Bilateral 10/2015, 12/2015 SECTION (HISTORICAL) CHOLECYSTECTOMY DILATION AND CURETTAGE OF UTERUS FEMUR FRACTURE SURGERY Right 11/30/2019 HIP ARTHROPLASTY Right 01/21/2020 conversion JOINT REPLACEMENT Bilateral ROTATOR CUFF REPAIR Right TOTAL ABDOMINAL HYSTERECTOMY Family History Problem Relation Name Age of Onset Asthma Son Thyroid disease Brother Cancer Mother Cancer Father Thyroid disease Mother Cancer Brother Asthma Son Asthma Son Unable to obtain family history due to N/A- family history available Allergies Allergen Reactions Aspirin Hives and Swelling Blotchy, GI, hives Penicillins blotchiness Sulfa Antibiotics Hives and Swelling blotchy Review of Systems ROS: See palliative care ROS/ESAS below; All other systems were reviewed and are negative. Sandoval Symptom Assessment Score Sandoval Score Pain Score 8 Tiredness Score 3 Nausea Score 0 Depression Score 0 Anxiety Score 0 Drowsiness Score 3 Anorexia Score (0= eating well, 10= not eating) 5 Wellbeing Score (10= worst sense of well-being) 10 Constipation 0 Dyspnea Score (0= no shortness of breath) 2 FLACC Scale (For Pain Assessment of the Non-Verbal Patient) Patient is verbal Assessed by: patient and provider. Social history: [place] status: no Marital status: Living status: alone Work history: retired from [employer] Advance Care Planning: The patient has capacity to make healthcare and advanced care planning decisions Yes The patient's identified surrogate decision maker is Child. Discussion participants: PatientDiagnosis and Prognosis, Goals of Care, Symptom Management, and code status Interventions reviewed: Resuscitation procedures (CPR) and Mechanical ventilator support Advance Care Planning Documents: Healthcare Power of Director Investor Relations: Other has in safe at home Financial Power of Director Investor Relations: Not completed Living Will: Other has in safe at home Code Status: DNR-CCA In addition to the time spent evaluating and managing the patient's medical diagnoses above, 16 minutes of this encounter was spent discussing advanced care planning documented above. Please bill [phone] for 16-46 minutes and add additional [phone] for >46 minutes. Family Meeting: Participants: patient Family meeting was held to discuss:Diagnosis and Prognosis, Goals of Care, Treatment Options, and Symptom Management Objective: Physical Exam BP (!) 92/49 Pulse 80 Temp 36.2 C (97.2 F) (Temporal) Resp 15 Ht 5' 3" (1.6 m) Wt 160 lb (72.6 kg) SpO2 99% BMI 28.34 kg/m Physical Exam Vitals and nursing note reviewed. Constitutional: Appearance: She is obese. She is ill-appearing. HENT: Head: Normocephalic and atraumatic. Nose: Nose normal. Mouth/Throat: Mouth: Mucous membranes are moist. Eyes: General: Right eye: No discharge. Left eye: No discharge. Pupils: Pupils are equal, round, and reactive to light. Cardiovascular: Rate and Rhythm: Normal rate and regular rhythm. Pulses: Normal pulses. Heart sounds: Normal heart sounds. No murmur heard. Comments: No edema B post tib/dorsalis pedis palpable Pulmonary: Effort: Pulmonary effort is normal. Breath sounds: Normal breath sounds. Comments: R chest tube Abdominal: General: Bowel sounds are normal. There is no distension. Palpations: Abdomen is soft. There is no mass. Musculoskeletal: Cervical back: Normal range of motion and neck supple. Right lower leg: No edema. Left lower leg: No edema. Skin: General: Skin is warm and dry. Comments: fragile Neurological: General: No focal deficit present. Mental Status: She is alert and oriented to person, place, and time. Psychiatric: Mood and Affect: Mood normal. Behavior: Behavior normal. Behavior is cooperative. Comments: No agitation Current Medications: Inpatient medications reviewed: yes Home medications reviewed: yes OARRS Reviewed: Yes-tramadol 50mg last filled #60(15D) filled 08/10/23 24 Hour PRN Meds: hydromorphone 0.25mg times 1, 0.5mg times 2, oxycodone 5mg times 1 Results/Verification of Data Review Objective data reviewed (be specific which labs, imaging reports with dates reviewed): MAR/vitals/labs/CXR report reviewed 12/13/23 12/12/23: CT chest report reviewed Data in Support of Terminal Illness: Is patient hospice appropriate? no Transition Note Initiated: yes. Associated Order(s): IP WOUND CARE NURSE CONSULT TO EVAL Images from the original note were not included. [facility] Wound Care CONSULT Note Beverly Agee AGE: 78 y.o. GENDER: female : 1945 Subjective: HISTORY of PRESENT ILLNESS HPI Beverly Agee is a 78 y.o. female who presents for a wound consult. HPI: 78 y.o. female status post fall 4 days ago. The incident happened on 12/10/23 at home. When the event happened the patient fell and hit a table. She was seen by her PCP on 12/10 who ordered CXR, which showed rib fracture. She presented to [place] ED with SOB, hypoxic, and tachycardic. CT showed large R effusion likely hemothorax. Wound Care consulted for pressure injury. Patient resting in chair at time of visit. PT present at bedside. 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 Depression History of blood transfusion Hyperlipidemia Hypertension Type II or unspecified type diabetes mellitus without mention of complication, not stated as uncontrolled (HCC) PAST SURGICAL HISTORY Past Surgical History: Procedure Laterality Date BREAST LUMPECTOMY Left BREAST LUMPECTOMY Left 2012 s/p radiation as well CATARACT EXTRACTION W/ INTRAOCULAR LENS IMPLANT Bilateral 10/2015, 12/2015 SECTION (HISTORICAL) CHOLECYSTECTOMY DILATION AND CURETTAGE OF UTERUS FEMUR FRACTURE SURGERY Right 11/30/2019 HIP ARTHROPLASTY Right 01/21/2020 conversion JOINT REPLACEMENT Bilateral ROTATOR CUFF REPAIR Right TOTAL ABDOMINAL HYSTERECTOMY FAMILY HISTORY Family History Problem Relation Name Age of Onset Asthma Son Thyroid disease Brother Cancer Mother Cancer Father Thyroid disease Mother Cancer Brother Asthma Son Asthma Son SOCIAL HISTORY Social History Tobacco Use Smoking status: Every Day Packs/day: .75 Types: Cigarettes Smokeless tobacco: Never Substance Use Topics Alcohol use: Yes Alcohol/week: 0.0 standard drinks of alcohol Drug use: No ALLERGIES Allergies Allergen Reactions Aspirin Hives and Swelling Blotchy, GI, hives Penicillins blotchiness Sulfa Antibiotics Hives and Swelling blotchy MEDICATIONS No current facility-administered medications on file prior to encounter. Current Outpatient Medications on File Prior to Encounter Medication Sig Dispense Refill cholecalciferol (D3-5) 5,000 Units tablet Take 5,000 Units by mouth in the morning. cyanocobalamin (Vitamin B-12) 1000 MCG tablet Take 500 mcg by mouth in the morning. fenofibrate (Tricor) 145 MG tablet Take 1 tablet (145 mg) by mouth in the morning. 30 tablet 5 insulin aspart (NovoLOG FLEXPEN) 100 UNIT/ML pen Inject 10 Units under the skin in the morning and 10 Units at noon and 10 Units in the evening. Inject with meals. 9 mL 1 insulin aspart (NovoLOG) 100 UNIT/ML pen Inject 10 Int'l Units under the skin. insulin glargine (Basaglar KwikPen) 100 UNIT/ML pen Inject 30 Units under the skin 2 times daily. 3 mL 1 losartan (Cozaar) 50 MG tablet Take 1 tablet (50 mg) by mouth in the morning. Take 50 mg by mouth in the morning.. 90 tablet 1 magnesium oxide (Mag-Ox) 400 MG tablet Take 1 tablet (400 mg) by mouth in the morning and 1 tablet (400 mg) before bedtime. 180 tablet 1 mirtazapine (Remeron) 30 MG tablet Take 1 tablet (30 mg) by mouth Nightly. 90 tablet 1 pravastatin (Pravachol) 80 MG tablet Take 1 tablet (80 mg) by mouth in the morning. 90 tablet 1 rivaroxaban (Xarelto) 20 MG tablet TAKE 1 TABLET BY MOUTH EVERY MORNING WITH BREAKFAST 90 tablet 1 venlafaxine XR (Effexor XR) 150 MG 24 hr capsule TAKE 1 CAPSULE BY MOUTH TWICE DAILY 180 capsule 1 REVIEW OF SYSTEMS Pertinent items are noted in HPI. Objective: BP (!) 92/49 Pulse 80 Temp 36.2 C (97.2 F) (Temporal) Resp 15 Ht 1.6 m (5' 3") Wt 72.6 kg (160 lb) SpO2 99% BMI 28.34 kg/m PHYSICAL EXAM General appearance: in no apparent distress, well developed and well nourished, non-toxic, in no respiratory distress and acyanotic, and alert Skin: warm and dry Pulmonary: Normal effort, no respiratory distress, no cyanosis Sacrum: open wound noted. 1x0.5xUTDcm. Slough noted to wound bed. Scant sreosang drainage present. Lisa-wound intact and fragile. Surrounding wound edge red and non-blanchable. LABS CBC: Lab Results Component Value Date WBC 12.9 (H) 12/13/2023 HGB 11.1 (L) 12/13/2023 HCT 33.8 (L) 12/13/2023 MCV 89.2 12/13/2023 PLT 248 12/13/2023 BMP: Lab Results Component Value Date NA 134 (L) 12/13/2023 K 4.3 12/13/2023 CL 104 12/13/2023 CO2 24 12/13/2023 BUN 27 (H) 12/13/2023 CREATININE 1.12 (H) 12/13/2023 PT/INR: Lab Results Component Value Date PROTIME 12.1 (H) 12/13/2023 INR 1.1 12/13/2023 Prealbumin: No results found for: PREALBUMIN Albumin:No components found for: LABALBU Sed Rate:No results found for: SEDRATE Micro: No components found for: BC Assessment/Plan: Sacrum: Unstageable pressure injury - Present on admission - Cleanse with NS. Apply ET mix. Leave ESTELITA. Apply TID and PRN. - On ICU bed - Q2 hour turn and reposition Nutritional support Wound Care to follow Recommend to follow up at [facility] wound care center after hospital discharge. Any questions or concerns please secure chat "ACH wound/ostomy". Thank you for the consult! I personally obtained the virk and critical portions of the history and physical exam. I reviewed the labs, imaging studies, and electronic medical record. I reviewed the chart documentation and discussed the patient with treatment team members. I have edited the note to reflect my clinical findings and my assessment and plan. Please note, the time of this note does not reflect the time I saw this patient today, but the time of this documentaton. Portions of this note including HPI, ROS, impression/plan, and examination may have been copied forward from admission to today as to provide important historical information essential in contributing to medical decision making. Documentation has been reviewed and edited as necessary to support clinical decision making for today's visit and to reflect my own independent evaluation of this patient. Decision making for today's visit and to reflect my own independent evaluation of this patient. documented in this encounter [facility] 12-13-2023 Procedure note Associated Ord er(s): Chest Tube Insertion Post-Procedure Diagnose(s): Pneumohemothorax, traumatic, initial encounter Chest Tube Insertion Date/Time: 12/13/2023 4:05 AM Performed by: Marybeth Marroquin MD Authorized by: Charlotte Braswell MD Consent: The indications, risks, benefits, alternatives to the procedure were explained to the patient/surrogate decision maker and their questions answered. Consent was obtained to proceed with the procedure. Timeout: Completed immediately prior to the start of the procedure which included verification of the correct patient, correct site and agreement on the procedure to be done. Indications: Indications: hemo-pneumothorax Anesthetic: Local anesthetic used: lidocaine with epinephrine Preparation: Patient was prepped and draped in usual sterile fashion. Skin prepped: skin prepped with chlorhexidine Sedation: Sedation: anxiolysis Procedure Details: Tube type: surgical Placement location: lateral midaxillary line Orientation: right Tube size: 28 Lithuanian Tube connected to: suction Ultrasound guidance: no Post-procedure Details: Post-procedure: dressing applied Drainage characteristics: bloody Drainage amount: 700 ml Air leak: No Breath sounds: equal Follow-up chest x-ray: ordered Estimated blood loss: other Complications: No apparent complications Assistants & Supervision: I personally performed the procedure documented as signed by this procedure note French Pastry Cook: Dr. Soto The attending physician was physically present while the proceduralist performed virk/critical components of the procedure. Attending: Dr. Braswell 2g Ancef were administered for this procedure Marybeth Marroquin MD General Surgery Resident 12/13/23 4:07 AM Associated attestation - Charlotte Braswell MD - 12/13/2023 9:25 AM EDT I attest that I was present and supervised the the entire procedure. I agree with the procedure details as documented in the resident's note. Additional comments below. Ancef administered prior to procedure. 750cc thin blood drained at time of chest tube placement CXR showed adequate placement of chest tube This note is electronically signed by: Charlotte Braswell MD 9:23 AM, 12/13/2023. documented in this encounter [facility] 12-13-2023 Emergency department Note [facility] at bedside at this time for transport Duyen Collins RN 12/13/23 0222 Report given to T-2 EPIC BEACON ANALYST at this time. Duyen Collins RN 12/13/23 0036 [facility] ETA [id number] Duyen Collins RN 12/13/23 0037 Patient placed on 3L NC via EMS and now, SPO2 at 100% Duyen Collins RN 12/12/23 3135 Emergency Department Encounter [facility] ED Patient: Beverly Agee : 1945 Date of Evaluation: 12/12/2023 ED Supervising Physician: Alexander Ledbetter MD I independently examined and evaluated Beverly Agee. This will serve as my Supervisory note as the eap clinician of record and shared attestation. I did perform a substantive portion of the visit including all aspects of the Medical Decision Making. I wore appropriate PPE for the entirety of this encounter. In brief, Beverly Agee is a 78 y.o. female that presents to the emergency department with concern of a fall that occurred yesterday. She is unsure of the events although son is present and notes that she fell on Sunday. It appears that EMS came to check her out although she did not want to come into the emergency department they went to a [facility] yesterday where x-rays were obtained and showed ninth rib fracture. She continued having pain and difficulty taking a full inspiration and was brought into the emergency department. Was hypoxic to 90% was placed on 3 L with some improvement. She states is very hard to take a deep breath in secondary to pain on the right side of her ribs. She also has pain over her bottom which son notes is likely from a bedsore Focused exam: Patient is coarse breath sounds bilaterally slightly diminished over the right lower lobe and left lower lobe. She has trace edema on lower extremities. Abdomen is soft, nontender nondistended no bruising noted Brief ED course/MDM: EMERGENCY DEPARTMENT COURSE and DIFFERENTIAL DIAGNOSIS/MDM: Vitals: Vitals: 12/12/23 2142 12/12/23 2149 BP: 122/56 BP Location: Left arm Patient Position: Sitting Pulse: (!) 111 Resp: 24 Temp: 36.4 C (97.6 F) TempSrc: Oral SpO2: (!) 90% 100% Weight: 72.6 kg (160 lb) Height: 1.6 m (5' 3") The patient presented with a chief complaint of with concern for fall, right-sided rib pain. The differential diagnosis associated with this patient's presentation includes fracture, dislocation, pneumothorax, hemoperitoneum or intra-abdominal injury. Our workup consisted of ordering/reviewing broad workup was initiated including blood work, CT chest abdomen pelvis without contrast. Vital signs on arrival with blood pressure 122/56 afebrile heart rate is 1. 111 and was saturating 90% placed on 3 L with some improvement. Blood work does show mild leukocytosis although no acute anemia dimer is mildly elevated although still within age-adjusted limits and BNP is only mildly elevated at 400. CT chest abdomen pelvis to evaluate for any traumatic injuries is concerning for multiple rib fractures of 8 9 and 10. There are displaced fractures of 9 and 10 with locules of air and associated hematoma in the posterior musculature. Very small right anterior pneumothorax moderate to large right pleural fluid with blood products and atelectasis. Superior endplate compression at L5 which is age-indeterminate. Will discuss with trauma surgery will give her slight pain control and fluid bolus. Will require admission although unsure if she is developing signs of cardiac tamponade causing hemodynamic instability that would necessitate more urgent chest tube placement and will continue monitoring for this Discussed with Dr. Mathis of trauma surgery who recommended admission to their trauma ICU on T2. Will be admitted to their service and transferred Diagnoses as of 12/12/23 8804 Closed fracture of multiple ribs of right side, initial encounter Traumatic pneumothorax, initial encounter Pneumohemothorax, traumatic, initial encounter Diagnostic tests considered but not performed: External records reviewed: Diagnostics interpreted by me: Discussions with other clinicians: Chronic conditions impacting care: Social determinants of health affecting care: ED Medications managed: Medications sodium chloride 0.9 % bolus 1,000 mL (has no administration in time range) fentaNYL (Sublimaze) injection 50 mcg (has no administration in time range) Prescription drugs considered: Disposition and plan: Multiple right-sided rib fractures, pneumohemothorax, traumatic pneumothorax, hypoxia, admission All diagnostic, treatment, and disposition decisions were made by myself in conjunction with the Resident/MILKA. I also supervised virk portions of any procedures performed by the Resident/MILKA. For all further details of the patient's emergency department visit, please see their documentation. (Comment: Please note this report has been produced using speech recognition software and may contain errors related to that system including errors in grammar, punctuation, and spelling, as well as words and phrases that may be inappropriate. If there are any questions or concerns please feel free to contact the dictating provider for clarification.) Alexander Ledbetter MD Acute Care [facility] Alexander Ledbetter MD 12/12/23 [id number] [facility] ED eMERGENCY dEPARTMENT eNCOUnter Pt Name: Beverly Agee Birthdate 1945 Date of evaluation: 12/12/2023 Provider: SHAKEEL CORTES CHIEF COMPLAINT Chief Complaint Patient presents with Rib Injury Shortness of Breath HISTORY OF PRESENT ILLNESS (Location/Symptom, Timing/Onset,Context/Setting, Quality, Duration, Modifying Factors, Severity) Note limiting factors. HPI This patient is seen in conjunction with Dr. Ledbetter who also interviewed and evaluated the patient at bedside. Beverly Agee is a 78 y.o. female who presents to the emergency department with increasing shortness of breath and right rib pain after a fall on Sunday. Patient states she fell in her home. She is unable to tell me if she fell forwards or backwards but she hit a table. Paramedics came out that she did not want to be seen at that time. She did follow-up with her primary care physician yesterday who ordered an outpatient x-ray which showed, according to the radiologist report, and ninth rib fracture. Patient presents today tachycardic, hypotensive, and hypoxic. Nursing Notes were reviewed. REVIEW OF SYSTEMS (2+ for4; 10+ for level 5) Review of Systems Constitutional: Negative for chills and fever. HENT: Negative for ear pain and sore throat. Eyes: Negative for pain and visual disturbance. Respiratory: Positive for shortness of breath. Negative for cough. Cardiovascular: Negative for chest pain and palpitations. Gastrointestinal: Negative for abdominal pain and vomiting. Genitourinary: Negative for dysuria and hematuria. Musculoskeletal: Negative for arthralgias and back pain. See history of present illness. Skin: Negative for color change and rash. Neurological: Negative for seizures and syncope. All other systems reviewed and are negative. 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 Depression History of blood transfusion Hyperlipidemia Hypertension Type II or unspecified type diabetes mellitus without mention of complication, not stated as uncontrolled (HCC) SURGICALHISTORY Past Surgical History: Procedure Laterality Date BREAST LUMPECTOMY Left BREAST LUMPECTOMY Left 2013 s/p radiation as well CATARACT EXTRACTION W/ INTRAOCULAR LENS IMPLANT Bilateral 10/2015, 12/2015 SECTION (HISTORICAL) CHOLECYSTECTOMY DILATION AND CURETTAGE OF UTERUS FEMUR FRACTURE SURGERY Right 11/30/2019 HIP ARTHROPLASTY Right 01/21/2020 conversion JOINT REPLACEMENT Bilateral ROTATOR CUFF REPAIR Right TOTAL ABDOMINAL HYSTERECTOMY CURRENT MEDICATIONS Previous Medications CHOLECALCIFEROL (D3-5) 5,000 UNITS TABLET Take 5,000 Units by mouth in the morning. CYANOCOBALAMIN (VITAMIN B-12) 1000 MCG TABLET Take 500 mcg by mouth in the morning. FENOFIBRATE (TRICOR) 145 MG TABLET Take 1 tablet (145 mg) by mouth in the morning. INSULIN ASPART (NOVOLOG FLEXPEN) 100 UNIT/ML PEN Inject 10 Units under the skin in the morning and 10 Units at noon and 10 Units in the evening. Inject with meals. INSULIN ASPART (NOVOLOG) 100 UNIT/ML PEN Inject 10 Int'l Units under the skin. INSULIN GLARGINE (BASAGLAR KWIKPEN) 100 UNIT/ML PEN Inject 30 Units under the skin 2 times daily. LOSARTAN (COZAAR) 50 MG TABLET Take 1 tablet (50 mg) by mouth in the morning. Take 50 mg by mouth in the morning.. MAGNESIUM OXIDE (MAG-OX) 400 MG TABLET Take 1 tablet (400 mg) by mouth in the morning and 1 tablet (400 mg) before bedtime. MIRTAZAPINE (REMERON) 30 MG TABLET Take 1 tablet (30 mg) by mouth Nightly. PRAVASTATIN (PRAVACHOL) 80 MG TABLET Take 1 tablet (80 mg) by mouth in the morning. RIVAROXABAN (XARELTO) 20 MG TABLET TAKE 1 TABLET BY MOUTH EVERY MORNING WITH BREAKFAST VENLAFAXINE XR (EFFEXOR XR) 150 MG 24 HR CAPSULE TAKE 1 CAPSULE BY MOUTH TWICE DAILY Aspirin, Penicillins, and Sulfa antibiotics FAMILY HISTORY Family History Problem Relation Name Age of Onset Asthma Son Thyroid disease Brother Cancer Mother Cancer Father Thyroid disease Mother Cancer Brother Asthma Son Asthma Son SOCIAL HISTORY Social History Socioeconomic History Marital status: Tobacco Use Smoking status: Every Day Packs/day: .75 Types: Cigarettes Smokeless tobacco: Never Substance and Sexual Activity Alcohol use: Yes Alcohol/week: 0.0 standard drinks of alcohol Drug use: No SCREENINGS PHYSICAL EXAM (5+ for level 4, 8+ for level 5) @EDTRIAGEVSS@ Physical Exam Vitals and nursing note reviewed. Constitutional: General: She is not in acute distress. Appearance: Normal appearance. She is well-developed. HENT: Head: Normocephalic and atraumatic. Eyes: Conjunctiva/sclera: Conjunctivae normal. Pupils: Pupils are equal, round, and reactive to light. Cardiovascular: Rate and Rhythm: Regular rhythm. Tachycardia present. Heart sounds: No murmur heard. Pulmonary: Effort: Pulmonary effort is normal. Comments: Pulse oximetry of 90% on room air. Diminished lung sounds in the base on the right. Abdominal: General: Abdomen is flat. There is no distension. Palpations: Abdomen is soft. Tenderness: There is no abdominal tenderness. Musculoskeletal: General: No swelling. Cervical back: Neck supple. Skin: General: Skin is warm and dry. Capillary Refill: Capillary refill takes less than 2 seconds. Neurological: General: No focal deficit present. Mental Status: She is alert and oriented to person, place, and time. Psychiatric: Mood and Affect: Mood normal. Behavior: Behavior normal. Thought Content: Thought content normal. Judgment: Judgment normal. DIAGNOSTIC RESULTS EKG (Per Emergency Physician): RADIOLOGY (Per EmergencyPhysician): Interpretation per the Radiologist below, if available at the time of this note: @EDRISRSLT@ : Labs Reviewed CBC WITH AUTO DIFFERENTIAL - Abnormal Result Value Auto WBC 16.5 (*) RBC 4.41 Hemoglobin 13.1 Hematocrit 39.6 MCV 89.8 MCH 29.7 MCHC 33.1 RDW 13.3 Platelets 312 MPV 9.8 nRBC 0.0 Neutrophils Relative 75.6 Lymphocytes Relative 15.3 Monocytes Relative 7.4 Eosinophils Relative 0.4 Basophils Relative 0.4 Immature Grans % 0.9 Neutrophils Absolute 12.5 (*) Lymphocytes Absolute 2.5 Monocytes Absolute 1.2 (*) Eosinophils Absolute 0.1 Basophils Absolute 0.1 Immature Grans Absolute 0.2 (*) NT PRO BNP - Abnormal NT PRO BNP 418 (*) COMPREHENSIVE METABOLIC PANEL - Abnormal SODIUM 134 (*) POTASSIUM 4.1 CHLORIDE 99 CARBON DIOXIDE 24 ANION GAP 11 UREA NITROGEN 21 (*) CREATININE 0.92 GLUCOSE 299 (*) CALCIUM 10.1 AST (SGOT) 18 ALT 13 ALKALINE PHOSPHATASE 52 ALBUMIN 3.7 BILIRUBIN, TOTAL 0.8 TOTAL PROTEIN 6.5 eGFR 64.7 D-DIMER,QUANTITATIVE - Abnormal D-DIMER, INNOVANCE 0.57 (*) Narrative: Innovance D-Dimer values of <0.50 mg/L FEU can be used in combination with a pre-test probability model (e.g. Well's) to exclude pulmonary embolism (PE) disease, as well as an aid in the diagnosis of deep vein thrombosis (DVT). TROPONIN, WITH SERIAL REFLEX - Normal TROPONIN I <0.012 Narrative: Patients with high levels of Biotin oral intake (ie >5 mg/day) may have falsely decreased Troponin levels. TROPONIN I TROPONIN I All other labs were within normal range or not returned as of this dictation. EMERGENCY DEPARTMENT COURSE and DIFFERENTIALDIAGNOSIS/MDM: Vitals: Vitals: 12/12/23 2142 12/12/23 2149 12/12/23 2300 BP: 122/56 98/50 BP Location: Left arm Patient Position: Sitting Pulse: (!) 111 (!) 116 Resp: 24 24 Temp: 36.4 C (97.6 F) TempSrc: Oral SpO2: (!) 90% 100% 100% Weight: 72.6 kg (160 lb) Height: 1.6 m (5' 3") Medications sodium chloride 0.9 % bolus 1,000 mL (1,000 mL IntraVENous New Bag 12/12/23 2341) fentaNYL (Sublimaze) injection 50 mcg (50 mcg IntraVENous Given 12/12/239) Medical Decision Making Problems Addressed: Closed fracture of multiple ribs of right side, initial encounter: complicated acute illness or injury Pneumohemothorax, traumatic, initial encounter: complicated acute illness or injury Traumatic pneumothorax, initial encounter: complicated acute illness or injury Amount and/or Complexity of Data Reviewed Labs: ordered. Radiology: ordered. ECG/medicine tests: ordered. Risk Prescription drug management. Decision regarding hospitalization. Patient presents to the emergency department after a fall on Sunday. She was unsure if she fell forwards or backwards. Paramedics came but she did not want to be transported. She had an outpatient x-ray done of the right ribs yesterday which, according to the radiologist report, showed 1/9 rib fracture. She presents today with increasing pain and increasing shortness of breath. Denies any reinjury. She arrives hypoxic, hypotensive, and tachycardic Differential diagnosis includes polytrauma, multiple rib fractures, pneumothorax, hemothorax, internal bleeding, hypovolemia Chronic conditions impacting care: CVA, history of breast cancer, diabetes, hypertension, A-fib Social determinants affecting health: Nicotine dependence ED diagnostics include a CMP with a sodium of 134 potassium 4.1. Glucose 299. Normal LFTs. Negative troponin. BNP of 418. CBC is a white count of 16.5 without shift. Hemoglobin 13.1. EKG, per ED physician review, showed sinus tachycardia with an abnormal R wave progression and an old inferior infarct. D-dimer elevated at 0.57. CT scan of the chest and abdomen, per radiologist review, shows fractures of right ribs #8, 9, and 10. Ribs 9 and 10 are displaced with surrounding locules of air and an associated hematoma. She has old left rib fractures. There is a moderate to large right pleural fluid with blood products with associated atelectasis. There is a very small right anterior pneumothorax. There is a superior endplate compression at L5 of indeterminate age. ED medications included 1 L IV normal saline. She was given fentanyl injection of 50 mcg. She was started on oxygen by 3 L of nasal cannula. I did discuss his case with Dr. Braswell of the trauma service at [facility] and the patient was accepted for admission to the T2 ICU for further trauma care. Findings were explained to the patient and family at bedside and they are agreeable with this plan. Total critical care time was 37 minutes, excluding separately reportable procedures. There is a high probability of clinically significant/life-threatening deterioration in the patient's condition which required my urgent intervention. CONSULTS: None PROCEDURES: Unless otherwise noted below, none Procedures Patients symptoms are consistent with sepsis, severe sepsis, or septic shock (If yes use ".sepsiscoremeasure"): No FINAL IMPRESSION 1. Closed fracture of multiple ribs of right side, initial encounter 2. Traumatic pneumothorax, initial encounter 3. Pneumohemothorax, traumatic, initial encounter DISPOSITION/PLAN DISPOSITION Admit 12/13/2023 12:07:56 AM PATIENT REFERRED TO: No follow-up provider specified. DISCHARGE MEDICATIONS: New Prescriptions No medications on file @[facility]([id number]:LAST:1)@ (Please note: Portions of this note were completed with a voice recognition program. Efforts were made to edit thedictations but occasionally words and phrases are mis-transcribed.) Form [id number] SHAKEEL CORTES (electronically signed) Emergency Medicine Provider SHAKEEL Cortes 12/13/23 0020 Patient arrived via EMS c/o rib pain and difficulty breathing secondary to a fall yesterday AM. States that her legs gave out and she fell onto her right side, hitting her ribs. EMS came out to evaluate her yesterday and she did not want to come in to hospital at that time. Now states it hurts to breathe and her ribs are hurting 6/10, constant, sharp pain. Denies CP. documented in this encounter [facility] 12-13-2023 History and physical note Images from the original note were not included. [facility] Trauma H&P 12/13/2023 2:16 AM Trauma Attending: Dr. Braswell Level of Initial Activation: Direct Admit Upgraded: No To:N/A Mechanism of Injury: Fall Mechanical Mechanism of Arrival:Transfer from [place] Chief Complaint: SOB History of Traumatic Injury: 78 y.o. female status post fall 4 days ago. The incident happened on 12/10/23 at home. When the event happened the patient fell and hit a table. She was seen by her PCP on 12/10 who ordered CXR, which showed rib fracture. She presented to [place] ED with SOB, hypoxic, and tachycardic. CT showed large R effusion likely hemothorax. She was directly admitted to T2 ICU. The patient reports mild right chest pain and SOB. No LH or dizziness. Has been having frequent falls recently. She did not lose consciousness and recalls the fall, it was due to weakness in her legs. Doesn't think she hit her head. No other preceding symptoms. Last took Xarelto 1 day ago. Did the Patient have LOC?No C-collar in place on arrival? No Was the patient on an antiplatelet or anticoagulant medication? Yes If yes, which one? 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 Depression History of blood transfusion Hyperlipidemia Hypertension Type II or unspecified type diabetes mellitus without mention of complication, not stated as uncontrolled (HCC) Past Surgical History: Procedure Laterality Date BREAST LUMPECTOMY Left BREAST LUMPECTOMY Left 2012 s/p radiation as well CATARACT EXTRACTION W/ INTRAOCULAR LENS IMPLANT Bilateral 10/2015, 12/2015 SECTION (HISTORICAL) CHOLECYSTECTOMY DILATION AND CURETTAGE OF UTERUS FEMUR FRACTURE SURGERY Right 11/30/2019 HIP ARTHROPLASTY Right 01/21/2020 conversion JOINT REPLACEMENT Bilateral ROTATOR CUFF REPAIR Right TOTAL ABDOMINAL HYSTERECTOMY Family History Problem Relation Name Age of Onset Asthma Son Thyroid disease Brother Cancer Mother Cancer Father Thyroid disease Mother Cancer Brother Asthma Son Asthma Son Social History Socioeconomic History Marital status: Spouse name: Not on file Number of children: Not on file Years of education: Not on file Highest education level: Not on file Occupational History Not on file Tobacco Use Smoking status: Every Day Packs/day: .75 Types: Cigarettes Smokeless tobacco: Never Substance and Sexual Activity Alcohol use: Yes Alcohol/week: 0.0 standard drinks of alcohol Drug use: No Sexual activity: Not on file Other Topics Concern Not on file Social History Narrative Not on file Social Determinants of Health Financial Resource Strain: Not on file Food Insecurity: Not on file Transportation Needs: Not on file Physical Activity: Not on file Stress: Not on file Social Connections: Not on file Intimate Partner Violence: Not on file Housing Stability: Not on file No current facility-administered medications on file prior to encounter. Current Outpatient Medications on File Prior to Encounter Medication Sig Dispense Refill cholecalciferol (D3-5) 5,000 Units tablet Take 5,000 Units by mouth in the morning. cyanocobalamin (Vitamin B-12) 1000 MCG tablet Take 500 mcg by mouth in the morning. fenofibrate (Tricor) 145 MG tablet Take 1 tablet (145 mg) by mouth in the morning. 30 tablet 5 insulin aspart (NovoLOG FLEXPEN) 100 UNIT/ML pen Inject 10 Units under the skin in the morning and 10 Units at noon and 10 Units in the evening. Inject with meals. 9 mL 1 insulin aspart (NovoLOG) 100 UNIT/ML pen Inject 10 Int'l Units under the skin. insulin glargine (Basaglar KwikPen) 100 UNIT/ML pen Inject 30 Units under the skin 2 times daily. 3 mL 1 losartan (Cozaar) 50 MG tablet Take 1 tablet (50 mg) by mouth in the morning. Take 50 mg by mouth in the morning.. 90 tablet 1 magnesium oxide (Mag-Ox) 400 MG tablet Take 1 tablet (400 mg) by mouth in the morning and 1 tablet (400 mg) before bedtime. 180 tablet 1 mirtazapine (Remeron) 30 MG tablet Take 1 tablet (30 mg) by mouth Nightly. 90 tablet 1 pravastatin (Pravachol) 80 MG tablet Take 1 tablet (80 mg) by mouth in the morning. 90 tablet 1 rivaroxaban (Xarelto) 20 MG tablet TAKE 1 TABLET BY MOUTH EVERY MORNING WITH BREAKFAST 90 tablet 1 venlafaxine XR (Effexor XR) 150 MG 24 hr capsule TAKE 1 CAPSULE BY MOUTH TWICE DAILY 180 capsule 1 No current facility-administered medications for this encounter. Current Outpatient Medications: cholecalciferol (D3-5) 5,000 Units tablet, Take 5,000 Units by mouth in the morning., Disp: , Rfl: cyanocobalamin (Vitamin B-12) 1000 MCG tablet, Take 500 mcg by mouth in the morning., Disp: , Rfl: fenofibrate (Tricor) 145 MG tablet, Take 1 tablet (145 mg) by mouth in the morning., Disp: 30 tablet, Rfl: 5 insulin aspart (NovoLOG FLEXPEN) 100 UNIT/ML pen, Inject 10 Units under the skin in the morning and 10 Units at noon and 10 Units in the evening. Inject with meals., Disp: 9 mL, Rfl: 1 insulin aspart (NovoLOG) 100 UNIT/ML pen, Inject 10 Int'l Units under the skin., Disp: , Rfl: insulin glargine (Basaglar KwikPen) 100 UNIT/ML pen, Inject 30 Units under the skin 2 times daily., Disp: 3 mL, Rfl: 1 losartan (Cozaar) 50 MG tablet, Take 1 tablet (50 mg) by mouth in the morning. Take 50 mg by mouth in the morning.., Disp: 90 tablet, Rfl: 1 magnesium oxide (Mag-Ox) 400 MG tablet, Take 1 tablet (400 mg) by mouth in the morning and 1 tablet (400 mg) before bedtime., Disp: 180 tablet, Rfl: 1 mirtazapine (Remeron) 30 MG tablet, Take 1 tablet (30 mg) by mouth Nightly., Disp: 90 tablet, Rfl: 1 pravastatin (Pravachol) 80 MG tablet, Take 1 tablet (80 mg) by mouth in the morning., Disp: 90 tablet, Rfl: 1 rivaroxaban (Xarelto) 20 MG tablet, TAKE 1 TABLET BY MOUTH EVERY MORNING WITH BREAKFAST, Disp: 90 tablet, Rfl: 1 venlafaxine XR (Effexor XR) 150 MG 24 hr capsule, TAKE 1 CAPSULE BY MOUTH TWICE DAILY, Disp: 180 capsule, Rfl: 1 Who is healthcare POA or next of kin? son Does the patient have a DNR? No Living Will? No Allergies Allergen Reactions Aspirin Hives and Swelling Blotchy, GI, hives Penicillins blotchiness Sulfa Antibiotics Hives and Swelling blotchy PRIMARY SURVEY: AIRWAY: Airway Normal EMS Airway Absent Noisy respirations Absent Vomiting/bleeding: Absent BREATHING: Spontaneous Respirations: Present Midaxillary breath sound left: Present Midaxillary breath sound right: Present CIRCULATION: Left Femoral pulse rate: Normal Left Femoral pulse intensity: Present Right Femoral pulse rate: Normal Right Femoral pulse intensity: Present INITIAL VITALS: BP 90/42 HR 103 RR 21 Temp 97.2 SpO2 100% on 3 L NC FAST EXAM: Performed: No Results: N/A DISABILITY: GCS Initial Eye Verbal Motor 4 - Opens eyes on own 5 - Alert and oriented 6 - Follows simple motor commands Neuromuscular blockade: No Pupil size: Left 3mm Right 3mm Pupil reaction: Yes Wiggles fingers: Left Yes Right Yes Wiggles toes: Left Yes Right Yes Hand grasp: Left Normal Right Normal Plantar flexion: Left Normal Right Normal Secondary Survey: SECONDARY VITALS: BP 120/80 HR 88 RR 15 Temp 97 SpO2 100% 3 L NC Review of Systems Constitutional: Negative for activity change, appetite change, fatigue and fever. HENT: Negative for congestion and dental problem. Eyes: Negative for discharge and itching. Respiratory: Negative for apnea. Cardiovascular: Positive for chest pain. Negative for palpitations. Gastrointestinal: Negative for abdominal distention, abdominal pain, blood in stool, nausea and vomiting. Endocrine: Negative for cold intolerance and heat intolerance. Genitourinary: Negative for difficulty urinating and dysuria. Musculoskeletal: Positive for arthralgias and back pain. Skin: Negative for color change and pallor. Allergic/Immunologic: Negative for environmental allergies, food allergies and immunocompromised state. Neurological: Negative for dizziness, weakness and numbness. Hematological: Negative for adenopathy. Does not bruise/bleed easily. Psychiatric/Behavioral: Negative for confusion. The patient is not nervous/anxious. Physical Exam General Appearance: Awake, No acute distress, and Appears well-developed and well-nourished Head: Normocephalic and atraumatic Eyes: Sclera anicteric , EOM's grossly normal, and Conjunctivae normal ENT: Nares clear , Moist Mucous Membranes, Oropharynx clear, no blood , and Midface is stable. Neck: There is no cervical midline tenderness to palpation, step-offs or acute deformities, Trachea midline , No Thyromegaly , and No Crepitus Chest: Comments: right chest wall hematoma with ecchymosis, tenderness to palpation Lungs: Clear and unlabored Respirations Heart/Cardiovascular: Rhythm Regular and Tachycardia Abdomen: Soft and Non-Tender : Normal external genitalia Rectal: Positive Gluteal Squeeze Musculoskeletal: Upper and lower extremities have no acute deformities and they are non-tender to palpation, Good ROM , and Log-roll negative for pain Extremities: Cyanosis Absent , Radial Pulses palpable , Posterior Tibial Pulses Palpable , and Dorsalis Pedis Pulses Palpable Skin: Warm Neurologic: Alert and oriented to person, place, and time. , CN II-XII grossly normal, no focal deficits. , Moving all extremities willfully, able to wiggle all fingers and toes. , Sensation grossly intact throughout. , and Strength 5/5 throughout. Psych: Affect Normal CBC: Lab Results Component Value Date WBC 16.5 (H) 12/12/2023 RBC 4.41 12/12/2023 HGB 13.1 12/12/2023 HCT 39.6 12/12/2023 MCV 89.8 12/12/2023 MCH 29.7 12/12/2023 MCHC 33.1 12/12/2023 RDW 13.3 12/12/2023 PLT 312 12/12/2023 MPV 9.8 12/12/2023 BMP: Lab Results Component Value Date NA 134 (L) 12/12/2023 K 4.1 12/12/2023 CL 99 12/12/2023 CO2 24 12/12/2023 BUN 21 (H) 12/12/2023 CREATININE 0.92 12/12/2023 CALCIUM 10.1 12/12/2023 GLUCOSE 299 (H) 12/12/2023 Urine Toxicology: No components found for: "IAMMENTA", "IBARBIT", "IBENZO", "ICOCAINE", "IMARTHC", "IOPIATES", "IPHENCYC" IV Access: PIV NG/OG: No Monge: No Radiology: CT chest abdomen pelvis without contrast Result Date: 12/12/2023 [facility] 1945 [id number] Exam Date/Time: 12/12/2023 23:06 Procedure: CT CHEST ABDOMEN PELVIS WO CONTRAST Ordering Provider: GOLDMAN AMY Reason For Exam: Fall INDICATION: 78-year-old; fall; rib pain (same day imaging demonstrated right rib#9 fracture) and difficulty breathing after a fall yesterday; fell on right side Scan Parameters: Multiple axial 1mm images were obtained of the chest and 3mm images of the abdomen and pelvis. Coronal and sagittal reconstructions were reviewed as well. Dose reduction was employed with automated exposure control. Additional reconstructed MIP images provided with 3-D postprocessing. A total of 11 image sets provided for review. CONTRAST: No IV and no oral contrast COMPARISON: Chest and right RIBS 12/11/2023; CT chest 08/01/2021 FINDINGS: CHEST: A very small right pneumothorax is present anteriorly and medially. There is a moderate to large right pleural effusion with associated blood products with compressive atelectasis and/or infiltrate. Pulmonary vascular congestion is present with septal thickening. There are multiple posterior right rib fractures including 8,9,10. Ribs #9 and 10 are displaced with surrounding locules of air. The bones are osteopenic. Old LEFT rib fractures #5,6,10,11. Ribs #6 and 10 are not united. Multilevel endplate degenerative changes are present. There is a soft tissue hematoma posterior to the right rib fractures with associated air locules within the muscle. This measures in greatest axial dimension 1.9 x 4.1 cm. The thyroid gland contour is normal. The airway is patent the tracheobronchial tree calcifications. The esophagus is decompressed with a small hiatal hernia. Dense atherosclerotic calcifications are present along the aorta and coronary arteries. There is no sizable pericardial effusion. The heart is not enlarged. There is no mediastinal, hilar, or axillary adenopathy. There is limited evaluation the breast tissue, correlate with mammography. 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 Superior endplate compression of L5 with mild height loss, age indeterminate. The gallbladder is surgically absent with clips present. The liver, pancreas, and spleen are within normal limits. A right adrenal gland with a rich adenoma measures 13 mm. There is thickening of the medial limb of the left adrenal gland versus small adenoma. There is no hydronephrosis. A left renal 14 mm cyst is present. There is thinning of the renal cortex of the right and left. The bladder contour is normal. The uterus is surgically absent. Multiple colonic diverticuli are present. Fecal retention is present. The appendix is normal. The aorta is tortuous with atherosclerotic dense calcifications. CHEST: 1. Acute RIGHT rib fractures # 8,9,10. Ribs #9 and 10 are displaced with surrounding locules of air and an associated hematoma in the posterior musculature measuring 4.1 cm. Old left rib fractures. 2. Very small RIGHT anterior pneumothorax. 3. Moderate to large RIGHT pleural fluid with blood products with associated atelectasis. 4. Atherosclerotic disease. ABDOMEN/PELVIS: 1. Superior endplate compression at L5, age indeterminate. Osteopenia. Right total hip arthroplasty. 2. Other: Cholecystectomy. Bilateral adrenal gland adenomas. Left renal cyst. Perinephric stranding. Colonic diverticulosis. Atherosclerotic disease. 3. Additional findings, as above. CRITICAL TEST COMMUNICATION: I called the emergency department around 11:26pm and spoke with SHAKEEL Saxena. Report Dictated on Electronically Signed By: Manisha Conroy MD Electronically Signed Date/Time: 12/12/2023 11:28 PM EDT ECG 12 lead Sinus tachycardia Abnormal R-wave progression, late transition Inferior infarct, old no stemi Electronically Signed On 12-12-2023 23:13:52 EDT by Marbin Flores ASSESSMENT: Patient Active Problem List Diagnosis Mood disorder (HCC) Closed fracture of one rib of left side Hemothorax Anticoagulated H/O: CVA (cerebrovascular accident) Tobacco dependence syndrome Hip fracture requiring operative repair, right, closed, initial encounter ([facility]) Memory impairment Examination of participant in clinical trial Malignant neoplasm of upper-outer quadrant of female breast (HCC) Fall Leukocytosis Closed fracture of hip (HCC) Unsteady gait Type 2 diabetes mellitus with hyperglycemia, with long-term current use of insulin (HCC) Acute cystitis E-coli UTI Obesity History of radial keratotomy Psychophysiological insomnia Hypomagnesemia Essential hypertension Mixed anxiety depressive disorder Hyperlipidemia Atrial fibrillation ([facility]) Noncompliance with treatment regimen Weakness UTI (urinary tract infection) Hyperglycemia Closed fracture of multiple ribs of right side, initial encounter ASSESSMENT: 78 y.o. female s/p fall on Xarelto with right 8,9,10 rib fractures, small right anterior pneumothorax, large right hemothorax PLAN: Neuro/Spine: - Ajay tylenol, PRN oxy, dilaudid - PO robaxin - Acute pain consult for rib block - Palliative care, geriatrics consult - Cont home Remeron, Effexor HEENT: - No acute issues Cardiovascular: - Hx of Afib - Telemetry - MAP goal > 65 - Cont home pravastatin - Hold losartan Pulmonary: - Plan for large R chest tube placement - EZ pap, IS, acapella - Ajay duoneb FEN/GI: - Regular diet, mIVF : - Monitor UOP Heme: - Hold Xarelto - Daily CBC ID: - No acute issues Endo: - SSI, POC glucose Lines/Devices: - PIV Prophylaxis: DVT: SCD only Has DVT PPX been started? No If no, why? Bleeding disorder GI: none indicated Pressure Ulcer: turn self Musculoskeletal: - PT/OT Medications Reconciled- Yes [x] NO [], why Disposition: T2 ICU Associated attestation - Charlotte Braswell MD - 12/13/2023 9:41 AM EDT ATTENDING ADDENDUM I personally supervised the resident or DYE MAKER/DEYVI in the evaluation and development of a treatment plan for this patient on the same day of service as above. I personally discussed the review of systems and interviewed the patient along with performing a physical examination. In addition, I discussed the patient's condition and treatment options with him/her when possible. All of the patient's questions were answered and family updated when appropriate and possible. I performed a physical exam and ROS on the same date of service as above. My findings agree with the above note except for any details corrected below. Patient Active Problem List Diagnosis Mood disorder (HCC) Closed fracture of one rib of left side Hemothorax Anticoagulated H/O: CVA (cerebrovascular accident) Tobacco dependence syndrome Hip fracture requiring operative repair, right, closed, initial encounter ([facility]) Memory impairment Examination of participant in clinical trial Malignant neoplasm of upper-outer quadrant of female breast (HCC) Fall Leukocytosis Closed fracture of hip ([facility]) Unsteady gait Type 2 diabetes mellitus with hyperglycemia, with long-term current use of insulin ([facility]) Acute cystitis E-coli UTI Obesity History of radial keratotomy Psychophysiological insomnia Hypomagnesemia Essential hypertension Mixed anxiety depressive disorder Hyperlipidemia Atrial fibrillation ([facility]) Noncompliance with treatment regimen Weakness UTI (urinary tract infection) Hyperglycemia Closed fracture of multiple ribs of right side, initial encounter ASSESSMENT: 78F on Xarelto s/p fall at home 4 days prior to presentation (~12/07), who initially saw her PCP on 12/10 for pain, at which time CXR showed a R 9th rib fracture and chronic pulmonary disease, but no hemo- or pneumothorax. Earlier this evening she presented to [facility] with worsening R chest pain and SOB, and she was found to be tachycardic (HR 116) and hypotensive (sBP 80s-90s), and CT showed acute right sided rib fractures and mod-large right hemothorax. Hb was 13.1 on arrival. She was transferred to for further management of her R hemothorax, acute pain, and hemodynamic instability. Acute R rib fractures # 8,9,10 (ribs 9,10 displaced), w/ associated hematoma in the posterior chest wall Large R hemothorax Small R pneumothorax Chronic left rib fractures (5,6,10,11) Age indeterminate L5 super endplate fracture PLAN: 1. Neuro: H/o depression: continue home venlafaxine, mirtazapine - Palliative care, Geriatrics consult 2. CVS: Hypotensive and tachycardic at [facility] - improved on arrival to [facility], 2/2 acute blood loss anemia - H/o A-fib on Xarelto - hold Xarelto due to bleeding risk - H/o HTN on home lisinopril (hold while hypotensive) - H/o HLD: continue home statin 3. Pulm: Acute R rib fractures 8-10) in the setting of baseline pulmonary fibrotic disease -> 4. GI: OK for ( regular carb controlled) diet 5. Renal: normal renal function (Cr 0.92), voiding spontaneously 6. Heme: acute blood loss 2/2 R hemothorax (750cc out with initial chest tube placement) - Hb 13 -> check AM CBC, expect drop - Hold home Xarelto due to bleeding risk in setting of large R hemothorax 7. Endo: hyperglycemia in setting of Type II DM: on home lantus (30 U BID) and aspart 10 U TID with meals) -> restart here - continue home Vit B12, Vit D supplements 8. ID: reactive leukocytosis (WBC 16.5) in setting of traumatic stress -> may require VAT washout if chest tube drainage insufficient 9. Lines: PIV - hold off on A-line for now, may need one if becomes hypotensive again 10. Proph: SCDs only due to bleeding risk, no indications for GI prophylaxis 11. MSK: PT/OT when able 12. Dispo: Trauma ICU for close hemodynamic and respiratory monitoring Critical Care time spent 45 min. The time involved in the performance of this care was exclusive of separately billable procedures, teaching time and treating other patients. The time was spent personally by the attending physician for the following activities: examination of the patient, ordering and/or performing treatment, reviewing the laboratory and radiographic studies, and if applicable, ventilator management and blood gas interpretation. Critical Care was necessary because of an illness or injury that actively impaired one or more vital organ systems such that there was a high probability of imminent life treatening deterioration in the patient's condition. The following organ systems are involved: Respiratory, Cardiovascular Charlotte Braswell MD Division of Trauma Department of Surgery [facility] documented in this encounter [facility] 12-11-2023 History of Present illness Narrative Chief Complaint Patient presents with Fall Pt fell last night on carpet. EMT came out to evaluate. Pt did not hit her head. RT abdominal and RET shoulder pain No LMP recorded. Patient has had a hysterectomy. 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 Depression History of blood transfusion Hyperlipidemia Hypertension Type II or unspecified type diabetes mellitus without mention of complication, not stated as uncontrolled (HCC) Past Surgical History: Procedure Laterality Date BREAST LUMPECTOMY Left BREAST LUMPECTOMY Left 2012 s/p radiation as well CATARACT EXTRACTION W/ INTRAOCULAR LENS IMPLANT Bilateral 10/2015, 12/2015 SECTION (HISTORICAL) CHOLECYSTECTOMY DILATION AND CURETTAGE OF UTERUS FEMUR FRACTURE SURGERY Right 11/30/2019 HIP ARTHROPLASTY Right 01/21/2020 conversion JOINT REPLACEMENT Bilateral ROTATOR CUFF REPAIR Right TOTAL ABDOMINAL HYSTERECTOMY Family History Problem Relation Name Age of Onset Asthma Son Thyroid disease Brother Cancer Mother Cancer Father Thyroid disease Mother Cancer Brother Asthma Son Asthma Son Social History Socioeconomic History Marital status: Tobacco Use Smoking status: Every Day Packs/day: .75 Types: Cigarettes Smokeless tobacco: Never Substance and Sexual Activity Alcohol use: Yes Alcohol/week: 0.0 standard drinks of alcohol Drug use: No Allergies: Allergies Allergen Reactions Aspirin Hives and Swelling Blotchy, GI, hives Penicillins blotchiness Sulfa Antibiotics Hives and Swelling blotchy Medications: Current Outpatient Medications on File Prior to Visit Medication Sig Dispense Refill cholecalciferol (D3-5) 5,000 Units tablet Take 5,000 Units by mouth in the morning. cyanocobalamin (Vitamin B-12) 1000 MCG tablet Take 500 mcg by mouth in the morning. insulin aspart (NovoLOG) 100 UNIT/ML pen Inject 10 Int'l Units under the skin. losartan (Cozaar) 50 MG tablet Take 1 tablet (50 mg) by mouth in the morning. Take 50 mg by mouth in the morning.. 90 tablet 1 magnesium oxide (Mag-Ox) 400 MG tablet Take 1 tablet (400 mg) by mouth in the morning and 1 tablet (400 mg) before bedtime. 180 tablet 1 pravastatin (Pravachol) 80 MG tablet Take 1 tablet (80 mg) by mouth in the morning. 90 tablet 1 rivaroxaban (Xarelto) 20 MG tablet TAKE 1 TABLET BY MOUTH EVERY MORNING WITH BREAKFAST 90 tablet 1 venlafaxine XR (Effexor XR) 150 MG 24 hr capsule TAKE 1 CAPSULE BY MOUTH TWICE DAILY 180 capsule 1 fenofibrate (Tricor) 145 MG tablet Take 1 tablet (145 mg) by mouth in the morning. 30 tablet 5 insulin aspart (NovoLOG FLEXPEN) 100 UNIT/ML pen Inject 10 Units under the skin in the morning and 10 Units at noon and 10 Units in the evening. Inject with meals. 9 mL 1 insulin glargine (Basaglar KwikPen) 100 UNIT/ML pen Inject 30 Units under the skin 2 times daily. 3 mL 1 mirtazapine (Remeron) 30 MG tablet Take 1 tablet (30 mg) by mouth Nightly. 90 tablet 1 No current facility-administered medications on file prior to visit. HPI: HPI Had a fall last night Currently in physical therapy Got up to go to bathroom, was using walking and misstepped and fell down Did not feel LH or dizzy Falls frequently Landed on bottom but side his bedside table Does not remember hitting head, did not lose consciousness Paramedics came - vitals were good at that time Pain on R side in the back Takes xarelto Denies abdominal pain Denies shoulder pain ROS: Review of Systems Musculoskeletal: Positive for back pain (posterior R rib pain). exam: BP 132/78 (BP Location: Left arm, Patient Position: Sitting) Pulse 74 Temp 36.1 C (97 F) Wt 160 lb (72.6 kg) SpO2 96% BMI 26.63 kg/m Physical Exam Vitals reviewed. Constitutional: General: She is not in acute distress. Appearance: Normal appearance. She is not ill-appearing. HENT: Head: Normocephalic and atraumatic. Cardiovascular: Rate and Rhythm: Normal rate. Pulmonary: Effort: No respiratory distress. Musculoskeletal: General: Tenderness present. No swelling or deformity. Comments: limited flexion, extension, Left and Right SB, Left and Right rotation. TTP along R posterior ribs in mid to lower thoracic region. No lateral or anterior rib TTP No thoracic or lumbar midline spinal TTP, no thoracic or lumbar musculature TTP Abrasions noted to lower back that are well healing without erythema, warmth or TTP Skin: General: Skin is warm. Capillary Refill: Capillary refill takes less than 2 seconds. Findings: No rash. Neurological: General: No focal deficit present. Mental Status: She is alert and oriented to person, place, and time. Motor: No weakness. Gait: Gait abnormal (antalgic, slowed, unsteady, uses walker). Assessment and Plan: Beverly was seen today for fall. Diagnoses and all orders for this visit: Rib pain on right side (Primary) - XR ribs 2 views right w chest anteroposterior Frequent falls - XR ribs 2 views right w chest anteroposterior Presents with son and grandsons for R sided posterior rib pain following a mechanical fall overnight. Patient denies lightheadedness or dizziness preceding the fall. Patient is on Xarelto however she states that she did not hit her head and did not lose consciousness. R rib XR today performed in clinic today however final result by radiologist is still pending. On review by this provider there is no obvious rib fracture. Patient requested to be contacted with results.. It was discussed with patient and son that unless rib fracture is notably displaced or there are multiple rib fractures that there is no indication for emergency room evaluation and treatment will be supportive. Encouraged ice or heat several times daily as well as Tylenol as needed for discomfort. Patient counseled against using any NSAIDs given Xarelto use. Discussed with patient. Should patient develop any worsening or severe pain, shortness of breath or difficulty breathing that she should be evaluated in the emergency room immediately. Both voiced understanding and are agreeable. documented in this encounter [facility] 12-11-2023 Instructions Mariah Catalan DO - 12/11/2023 1:00 PM EDT Ice or heat at least 2-3 times daily for 20 minutes as time allows Okay for 1000mg of Tylenol every 6 hours. Do not exceed greater than 3000 mg of Tylenol in 24 hours Use incentive spirometer- 10 breaths every 2 hours while awake Follow up with PCP in 10-14 days for re-evaluation If you develop any worsening or severe pain, shortness of breath or difficulty breathing please be evaluated in the emergency room immediately The following attachments cannot be sent through Care Everywhere.Bruised Rib Discharge Instructions (Bengali)documented in this encounter [facility] 09-02-2023 Telephone encounter Note Reason for Disposition Lab or radiology calling with CRITICAL test results Protocols used: PCP Call - No [id number] [facility] 09-02-2023 Miscellaneous Notes Reason for Disposition Lab or radiology calling with CRITICAL test results Protocols used: PCP Call - No [id number] S:patient lab called in per [employer] diagnostics client specific high glucose yesterday morning of 455. R: flooring helper provider advised of same, verbalizes understanding of same documented in this encounter [facility] 09-02-2023 Telephone encounter Note S:patient lab called in per [employer] [facility] client specific high glucose yesterday morning of 455. R: flooring helper provider advised of same, verbalizes understanding of same [facility] 02-17-2023 Telephone encounter Note S: Patient spoke with [facility] nurse regarding medication refill B: Onset of symptoms/concern 02.17.23 A: patient states she is out of Basaglar kwikpen 40 units bid. Patient states she accidentally put an empty box in her refrigerator and did not realize she is out of RX. Pharmacy confirmed on file. R: Collaborative care call placed to advertising operations manager provider Dr. Carlene Parikh- per physician ok to call in RX Basaglar 40 units BID 1 month w/ 1 refill. Called pharmacy and spoke with Taran Olson Pharmacist RX read back with accuracy. Attempted to call patient back and call went directly to voicemail. Advised patient to follow up with pharmacy. Reason for Disposition [1] Prescription refill request for ESSENTIAL medicine (i.e., likelihood of harm to patient if not taken) AND [2] triager unable to refill per department policy Protocols used: Medication Refill and Renewal [id number] [facility] 02-17-2023 Miscellaneous Notes S: Patient spoke with [facility] nurse regarding medication refill B: Onset of symptoms/concern 02.17.23 A: patient states she is out of Basaglar kwikpen 40 units bid. Patient states she accidentally put an empty box in her refrigerator and did not realize she is out of RX. Pharmacy confirmed on file. R: Collaborative care call placed to advertising operations manager provider Dr. Carlene Parikh- per physician ok to call in RX Basaglar 40 units BID 1 month w/ 1 refill. Called pharmacy and spoke with Taran Olson Pharmacist RX read back with accuracy. Attempted to call patient back and call went directly to voicemail. Advised patient to follow up with pharmacy. Reason for Disposition [1] Prescription refill request for ESSENTIAL medicine (i.e., likelihood of harm to patient if not taken) AND [2] triager unable to refill per department policy Protocols used: Medication Refill and Renewal [id number] documented in this encounter [facility] 12-21-2022 Telephone encounter Note Message released to patient as written. Patient's further questions if applicable: Pt states never received a call from office regarding Dr. Mccabe question. Pt states not sure why that appointment was cancelled in September with Analytical Scientist can not remember that far back. Pt states has been out of medicine for a week for insulin. I tried to get pt scheduled for an appointment. Pt states will have to call back when knows sons schedule. Pt sons drives pt to doctors office. Will be calling back to get scheduled. Were all questions from office addressed or relayed to the patient from encounter: Yes [facility] 12-21-2022 Miscellaneous Notes Message released to patient as written. Patient's further questions if applicable: Pt states never received a call from office regarding Dr. Mccabe question. Pt states not sure why that appointment was cancelled in September with Analytical Scientist can not remember that far back. Pt states has been out of medicine for a week for insulin. I tried to get pt scheduled for an appointment. Pt states will have to call back when knows sons schedule. Pt sons drives pt to doctors office. Will be calling back to get scheduled. Were all questions from office addressed or relayed to the patient from encounter: Yes Please call patient and ask her why she canceled the appointment with the telecommunications technician. She will need an appointment in order to get her medications refilled. I continue to highly recommend that she see the telecommunications technician but now will need to be rescheduled and will take several months probably. Ordering provider: eliot Date of last office visit: NICOLASA Date of next office visit: 08.30.2022 Updated/Validated preferred pharmacy: Yes Patient instructed to contact the pharmacy prior to picking up the medication: Yes (1) Medication name: insulin glargine (Basaglar KwikPen) Medication dosage: 100unit/ML Pen Monthly quantity needed: 90 How many day supply requestin days Medication route: subcutaneous injection (SQ/SC) Medication administration time(s): 2 times a day (BID) If taking medication PRN, reason for taking medication: N/A If this is a controlled substance do you receive this or any other controlled medication from any other doctor or facility: N/A Date of last refill (see medication tab): 07.07.22 (2) Medication name: insulin aspart (NovoLOG FLEXPEN) Medication dosage: 100unit/ML Pen Monthly quantity needed: 30 How many day supply requestin days Medication route: subcutaneous injection (SQ/SC) Medication administration time(s): 2 times a day (BID) If taking medication PRN, reason for taking medication: N/A If this is a controlled substance do you receive this or any other controlled medication from any other doctor or facility: Yes Date of last refill (see medication tab): 10.04.21 documented in this encounter [facility] 12-20-2022 Telephone encounter Note Please call patient and ask her why she canceled the appointment with the telecommunications technician. She will need an appointment in order to get her medications refilled. I continue to highly recommend that she see the telecommunications technician but now will need to be rescheduled and will take several months probably. [facility] 12-19-2022 History of Present illness Narrative Last appointment 06/28/2022 , Next appointment is Visit date not found Last filled: Novolog flexpen last filled 10/04/21 9ml with 3 refills (per pharmacist not filled since 11/15) Basaglar Kwikpen last filled 07/07/23 3 ml with 3 refills. Pended orders to provider for review. documented in this encounter [facility] 12-18-2022 Telephone encounter Note Ordering provider: eliot Date of last office visit: NA Date of next office visit: 08.30.2022 Updated/Validated preferred pharmacy: Yes Patient instructed to contact the pharmacy prior to picking up the medication: Yes (1) Medication name: insulin glargine (Basaglar KwikPen) Medication dosage: 100unit/ML Pen Monthly quantity needed: 90 How many day supply requestin days Medication route: subcutaneous injection (SQ/SC) Medication administration time(s): 2 times a day (BID) If taking medication PRN, reason for taking medication: N/A If this is a controlled substance do you receive this or any other controlled medication from any other doctor or facility: N/A Date of last refill (see medication tab): 07.07.22 (2) Medication name: insulin aspart (NovoLOG FLEXPEN) Medication dosage: 100unit/ML Pen Monthly quantity needed: 30 How many day supply requestin days Medication route: subcutaneous injection (SQ/SC) Medication administration time(s): 2 times a day (BID) If taking medication PRN, reason for taking medication: N/A If this is a controlled substance do you receive this or any other controlled medication from any other doctor or facility: Yes Date of last refill (see medication tab): 10.04.21 [facility] 09-11-2022 Telephone encounter Note Message released to patient as written. Please let patient know that her urine culture was positive for a UTI. The antibiotic prescribed should clear the infection. Thank you Patient's further questions if applicable: n/a Were all questions from office addressed or relayed to the patient from encounter: Yes [facility] [employer] 09-11-2022 Miscellaneous Notes Message released to patient as written. Please let patient know that her urine culture was positive for a UTI. The antibiotic prescribed should clear the infection. Thank you Patient's further questions if applicable: n/a Were all questions from office addressed or relayed to the patient from encounter: Yes documented in this encounter [facility] 09-01-2022 Telephone encounter Note Last seen: 06/28/2022 Next appt: 09/01/2022 Last filled: 05/04/2022 Quantity: 90 tab, refill: 0 [facility] [employer] 09-01-2022 Miscellaneous Notes Last seen: 06/28/2022 Next appt: 09/01/2022 Last filled: 05/04/2022 Quantity: 90 tab, refill: 0 documented in this encounter [facility] 08-30-2022 History of Present illness Narrative Images from the original note were not included. [facility] [address] [facility] [address] [facility] [address] Dept: [phone] Dept Visit type: Established patient Reason for Visit: UTI (Urinary urgency, urinary frequency, dysuria since about 07/27. ) Assessment and Plan 1. Dysuria - Complete Urinalysis - Urine culture (clean catch) - AMB POC URINALYSIS DIP STICK AUTO W/O MICRO - cephalexin (Keflex) 500 MG capsule; Take 1 capsule (500 mg) by mouth in the morning and 1 capsule (500 mg) at noon and 1 capsule (500 mg) in the evening and 1 capsule (500 mg) before bedtime. Do all this for 5 days., Starting Sun08/30/2022, Until Sun09/04/2022, Normal Acute issue. Urine POC in office is positive for nitrites and leukocytes. Symptoms consistent with UTI. Will start empiric treatment. Rx for ATB sent to pharmacy. Advised to take antibiotic as prescribed and complete course. Increase fluid intake. Will call patient with results. Patient to contact office if symptoms do not improve. ER eval for distressing symptoms. Follow up if symptoms worsen or fail to improve. Subjective Urinary Frequency This is a recurrent problem. The current episode started more than 1 month ago. The quality of the pain is described as burning. Associated symptoms include frequency and urgency. Pertinent negatives include no chills, flank pain, hematuria, hesitancy, nausea or vomiting. -She has had urinary frequency, urgency and burning with urination -Ongoing for about one month now -She was treated for a UTI in June and states after she finished her atb, her symptoms returned -She has been increasing fluid intake -No fever, chills, abdominal pain, flank pain, hematuria Review of Systems Constitutional: Negative for chills, fatigue and fever. HENT: Negative for congestion. Respiratory: Negative for shortness of breath. Cardiovascular: Negative for chest pain. Gastrointestinal: Negative for nausea and vomiting. Genitourinary: Positive for dysuria, frequency and urgency. Negative for difficulty urinating, flank pain, hematuria and hesitancy. Allergies Allergen Reactions Aspirin Hives and Swelling Blotchy, GI, hives Penicillins blotchiness Sulfa Antibiotics Hives and Swelling blotchy Current Outpatient Medications Medication Sig Dispense Refill cholecalciferol (D3-5) 5,000 Units tablet Take 5,000 Units by mouth in the morning. cyanocobalamin (Vitamin B-12) 1000 MCG tablet Take 500 mcg by mouth in the morning. fenofibrate (Tricor) 145 MG tablet Take 1 tablet (145 mg) by mouth in the morning. 30 tablet 5 insulin aspart (NovoLOG FLEXPEN) 100 UNIT/ML pen Inject 10 Units under the skin. insulin glargine (Basaglar KwikPen) 100 UNIT/ML pen Inject 30 Units under the skin in the morning and 30 Units before bedtime. 3 mL 3 losartan (Cozaar) 50 MG tablet Take 1 tablet (50 mg) by mouth in the morning. Take 50 mg by mouth in the morning.. 90 tablet 1 magnesium oxide (Mag-Ox) 400 MG tablet Take 1 tablet (400 mg) by mouth in the morning and 1 tablet (400 mg) before bedtime. 180 tablet 1 pravastatin (Pravachol) 80 MG tablet Take 1 tablet (80 mg) by mouth in the morning. 90 tablet 1 rivaroxaban (Xarelto) 20 MG tablet TAKE 1 TABLET BY MOUTH EVERY MORNING WITH BREAKFAST 90 tablet 1 venlafaxine XR (Effexor XR) 150 MG 24 hr capsule TAKE 1 CAPSULE BY MOUTH TWICE DAILY 180 capsule 1 cephalexin (Keflex) 500 MG capsule Take 1 capsule (500 mg) by mouth in the morning and 1 capsule (500 mg) at noon and 1 capsule (500 mg) in the evening and 1 capsule (500 mg) before bedtime. Do all this for 5 days. 20 capsule 0 mirtazapine (Remeron) 30 MG tablet TAKE 1 TABLET BY MOUTH DAILY IN THE EVENING No current facility-administered medications for this visit. Past Medical History: Diagnosis Date Arrhythmia Arthritis Atrial fibrillation (CMS/HCC) (HCC) Breast CA (HCC) Cancer (CMS/HCC) (HCC) 09/30/2012 Left quadrantectomy & axillary LN 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 artery occlusion with cerebral infarction (CMS/HCC) (HCC) 07/2016 right temporal /occiptial/ and hypocapal Depression History of blood transfusion Hyperlipidemia Hypertension Type II or unspecified type diabetes mellitus without mention of complication, not stated as uncontrolled ([facility]) Social History Tobacco Use Smoking status: Every Day Packs/day: 0.75 Types: Cigarettes Smokeless tobacco: Never Substance Use Topics Alcohol use: Yes Alcohol/week: 0.0 standard drinks Past Surgical History: Procedure Laterality Date BREAST LUMPECTOMY Left BREAST LUMPECTOMY Left 2013 s/p radiation as well CATARACT EXTRACTION W/ INTRAOCULAR LENS IMPLANT Bilateral 10/2015, 12/2015 SECTION (HISTORICAL) CHOLECYSTECTOMY DILATION AND CURETTAGE OF UTERUS FEMUR FRACTURE SURGERY Right 11/30/2019 HIP ARTHROPLASTY Right 01/21/2020 conversion JOINT REPLACEMENT Bilateral ROTATOR CUFF REPAIR Right TOTAL ABDOMINAL HYSTERECTOMY Family History Problem Relation Name Age of Onset Asthma Son Thyroid disease Brother Cancer Mother Cancer Father Thyroid disease Mother Cancer Brother Asthma Son Asthma Son Objective BP 130/84 (BP Location: Right arm, Patient Position: Sitting, BP Cuff Size: Small adult) Pulse 99 Temp 36.2 C (97.1 F) (Temporal) Ht 5' 5" (1.651 m) Wt 208 lb 3.2 oz (94.4 kg) SpO2 96% BMI 34.65 kg/m Physical Exam Vitals reviewed. Constitutional: General: She is not in acute distress. Appearance: She is not ill-appearing, toxic-appearing or diaphoretic. HENT: Head: Normocephalic and atraumatic. Cardiovascular: Rate and Rhythm: Normal rate and regular rhythm. Heart sounds: Normal heart sounds. No murmur heard. Pulmonary: Effort: Pulmonary effort is normal. No respiratory distress. Breath sounds: Normal breath sounds. Abdominal: General: Bowel sounds are normal. There is no distension. Palpations: Abdomen is soft. Tenderness: There is no abdominal tenderness. There is no right CVA tenderness or left CVA tenderness. Musculoskeletal: Cervical back: Neck supple. Skin: General: Skin is warm and dry. Neurological: Mental Status: She is alert and oriented to person, place, and time. Psychiatric: Mood and Affect: Mood normal. Behavior: Behavior normal. Data Reviewed and Summarized Labs: Imaging/Testing: RADHA Tomas CNP documented in this encounter [facility] 08-25-2022 Telephone encounter Note S: Patient spoke with [facility] nurse regarding urinary symptoms, frequency and urgency. B: Onset of symptoms/concern urinary symptoms since end of A: Pt had been treated for an UTI back in and Pt feels the the symptoms stated the Sunday or after. Patient had not taken his temperature, Reports doesn't feel like having fevers. Temp 95.5. Reporting burning. Denies hematuria. Denies odor. R: Advised would send an urgent note to office. No same days available today when she contacted the office. Patient understands care advice. No further needs at this time. Patient instructed to call back with new or worsening symptoms. Pharmacy and allergies were reviewed. See previous TE CB # [phone] should she go to the today. Reason for Disposition Urinating more frequently than usual (i.e., frequency) Protocols used: Urinary [id number] [facility] 08-25-2022 Miscellaneous Notes S: Patient spoke with [facility] nurse regarding urinary symptoms, frequency and urgency. B: Onset of symptoms/concern urinary symptoms since end of A: Pt had been treated for an UTI back in and Pt feels the the symptoms stated the Sunday or after. Patient had not taken his temperature, Reports doesn't feel like having fevers. Temp 95.5. Reporting burning. Denies hematuria. Denies odor. R: Advised would send an urgent note to office. No same days available today when she contacted the office. Patient understands care advice. No further needs at this time. Patient instructed to call back with new or worsening symptoms. Pharmacy and allergies were reviewed. See previous TE CB # [phone] should she go to the today. Reason for Disposition Urinating more frequently than usual (i.e., frequency) Protocols used: Urinary [id number] documented in this encounter [facility] 08-01-2021 Hospital Discharge instructions Ligia, Ken, MD - 08/01/2021 You were seen in the [facility] emergency department for abdominal pain, found to have 11th rib fracture. Plan for outpatient follow up with surgery for repeat imaging. Pain was stable while in the emergency department. Please follow-up with your primary care physician along with surgery as soon as possible, and return to the ER if you develop any chest pain, shortness of breath, nausea, vomiting, severe pain, inability to eat or drink, or any other symptoms that concern you. The following attachments cannot be sent through Care Everywhere.Rib Fracture (Bengali)documented in this encounter [facility] Work Phone: Evaluation note Diagnosis Closed fracture of one rib of left side, initial encounter- Primary Hemothorax Other specified forms of effusion, except tuberculous documented in this encounter [facility] Work Phone: Evaluation note* Diagnosis Sacrococcygeal disorders, not elsewhere classified documented in this encounter [facility]* Diagnosis Sacrococcygeal disorders, not elsewhere classified- Primary Sacrococcygeal disorders, not elsewhere classified documented in this encounter [facility]* Diagnosis Other chest pain documented in this encounter [facility] note* Diagnosis Other chest pain- Primary Other chest pain documented in this encounter [facility]* Diagnosis Rib pain on right side- Primary Frequent falls documented in this encounter [facility]* Diagnosis Closed fracture of multiple ribs of right side, initial encounter- Primary Closed fracture of multiple ribs of right side, initial encounter Traumatic pneumothorax, initial encounter Pneumohemothorax, traumatic, initial encounter 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) Memory loss Fall, initial encounter Recurrent falls Debility Unspecified debility Physical deconditioning Muscular wasting and disuse atrophy, not elsewhere classified Polypharmacy Issue of repeat prescriptions History of stroke Transient ischemic attack (TIA), and cerebral infarction without residual deficits At risk for delirium documented in this encounter [facility]* Diagnosis Repeated falls- Primary documented in this encounter [facility]* Diagnosis Complicated UTI (urinary tract infection)- Primary Complicated UTI (urinary tract infection) Fall, initial encounter documented in this encounter [facility] note* Diagnosis Pain in right hand Pain in right shoulder documented in this encounter [facility]* Diagnosis Pain in right hand- Primary Pain in right shoulder Pain in right hand Pain in right shoulder documented in this encounter [facility]* Diagnosis Dysuria- Primary documented in this encounter [facility]* Diagnosis Type 2 diabetes mellitus with hyperglycemia, with long-term current use of insulin (HCC)- Primary Essential hypertension Unspecified essential hypertension Atrial fibrillation, unspecified type (HCC) Mood disorder (HCC) Unspecified episodic mood disorder Mixed hyperlipidemia Urinary frequency Noncompliance with treatment regimen Need for influenza vaccination Need for prophylactic vaccination and inoculation against influenza Hypoglycemia- Primary Hypoglycemia, unspecified Hypoglycemia Hypoglycemia, unspecified Urinary tract infection without hematuria, site unspecified Cognitive impairment Unspecified persistent mental disorders due to conditions classified elsewhere Fall, initial encounter Vitamin D deficiency Polypharmacy Issue of repeat prescriptions Delirium Other alteration of consciousness documented in this encounter [facility]* Diagnosis Type 2 diabetes mellitus with hyperglycemia, with long-term current use of insulin (HCC)- Primary Essential hypertension Unspecified essential hypertension Atrial fibrillation, unspecified type (HCC) Mood disorder (HCC) Unspecified episodic mood disorder Mixed hyperlipidemia Urinary frequency Noncompliance with treatment regimen Need for influenza vaccination Need for prophylactic vaccination and inoculation against influenza Type 2 diabetes mellitus with hyperglycemia, with long-term current use of insulin (HCC)- Primary Hypertension associated with type 2 diabetes mellitus (HCC) Hyperlipidemia associated with type 2 diabetes mellitus (HCC) Class 1 obesity with serious comorbidity and body mass index (BMI) of 31.0 to 31.9 in adult, unspecified obesity type [facility] noteNo assessment information [facility]WShel[facility] Work Phone: Evaluation note* Diagnosis Type 2 diabetes mellitus with hyperglycemia, with long-term current use of insulin (HCC)- Primary Essential hypertension Unspecified essential hypertension Atrial fibrillation, unspecified type (HCC) Mood disorder (HCC) Unspecified episodic mood disorder Mixed hyperlipidemia Urinary frequency Noncompliance with treatment regimen Need for influenza vaccination Need for prophylactic vaccination and inoculation against influenza Type 2 diabetes mellitus with hyperglycemia, with long-term current use of insulin (HCC) documented in this encounter [facility]* Diagnosis Type 2 diabetes mellitus with hyperglycemia, with long-term current use of insulin (HCC)- Primary Essential hypertension Unspecified essential hypertension Atrial fibrillation, unspecified type (HCC) Mood disorder (HCC) Unspecified episodic mood disorder Mixed hyperlipidemia Urinary frequency Noncompliance with treatment regimen Need for influenza vaccination Need for prophylactic vaccination and inoculation against influenza Memory loss- Primary Cognitive impairment Unspecified persistent mental disorders due to conditions classified elsewhere Depression, unspecified depression type documented in this encounter [facility]* Diagnosis Type 2 diabetes mellitus with hyperglycemia, with long-term current use of insulin (HCC)- Primary Essential hypertension Unspecified essential hypertension Atrial fibrillation, unspecified type (HCC) Mood disorder (HCC) Unspecified episodic mood disorder Mixed hyperlipidemia Urinary frequency Noncompliance with treatment regimen Need for influenza vaccination Need for prophylactic vaccination and inoculation against influenza Type 2 diabetes mellitus with hyperglycemia, with long-term current use of insulin (HCC)- Primary Hypertension associated with type 2 diabetes mellitus (HCC) Hyperlipidemia associated with type 2 diabetes mellitus (HCC) Class 1 obesity with serious comorbidity and body mass index (BMI) of 31.0 to 31.9 in adult, unspecified obesity type [facility] Diagnosis Type 2 diabetes mellitus with hyperglycemia, with long-term current use of insulin (HCC)- Primary Essential hypertension Unspecified essential hypertension Atrial fibrillation, unspecified type (HCC) Mood disorder (HCC) Unspecified episodic mood disorder Mixed hyperlipidemia Urinary frequency Noncompliance with treatment regimen Need for influenza vaccination Need for prophylactic vaccination and inoculation against influenza Memory impairment- Primary Memory loss Palliative care encounter documented in this encounter [facility]* Diagnosis Type 2 diabetes mellitus with hyperglycemia, with long-term current use of insulin (HCC)- Primary Essential hypertension Unspecified essential hypertension Atrial fibrillation, unspecified type (HCC) Mood disorder (HCC) Unspecified episodic mood disorder Mixed hyperlipidemia Urinary frequency Noncompliance with treatment regimen Need for influenza vaccination Need for prophylactic vaccination and inoculation against influenza Mixed Alzheimer's and vascular dementia (HCC)- Primary Depression, unspecified depression type documented in this encounter [facility] note* Diagnosis Type 2 diabetes mellitus with hyperglycemia, with long-term current use of insulin (HCC)- Primary Essential hypertension Unspecified essential hypertension Atrial fibrillation, unspecified type (HCC) Mood disorder (HCC) Unspecified episodic mood disorder Mixed hyperlipidemia Urinary frequency Noncompliance with treatment regimen Need for influenza vaccination Need for prophylactic vaccination and inoculation against influenza Memory loss- Primary Cognitive impairment Unspecified persistent mental disorders due to conditions classified elsewhere Depression, unspecified depression type Cognitive impairment Unspecified persistent mental disorders due to conditions classified elsewhere Memory loss documented in this encounter [facility]* Diagnosis Type 2 diabetes mellitus with hyperglycemia, with long-term current use of insulin (HCC)- Primary Essential hypertension Unspecified essential hypertension Atrial fibrillation, unspecified type (HCC) Mood disorder (HCC) Unspecified episodic mood disorder Mixed hyperlipidemia Urinary frequency Noncompliance with treatment regimen Need for influenza vaccination Need for prophylactic vaccination and inoculation against influenza Type 2 diabetes mellitus with hyperglycemia, with long-term current use of insulin (HCC)- Primary Hypertension associated with type 2 diabetes mellitus (HCC) Hyperlipidemia associated with type 2 diabetes mellitus (HCC) Class 1 obesity with serious comorbidity and body mass index (BMI) of 31.0 to 31.9 in adult, unspecified obesity type documented in this encounter [facility] note* Diagnosis Type 2 diabetes mellitus with hyperglycemia, with long-term current use of insulin (HCC)- Primary Essential hypertension Unspecified essential hypertension Atrial fibrillation, unspecified type (HCC) Mood disorder (HCC) Unspecified episodic mood disorder Mixed hyperlipidemia Urinary frequency Noncompliance with treatment regimen Need for influenza vaccination Need for prophylactic vaccination and inoculation against influenza Other symptoms and signs involving cognitive functions and awareness- Primary Other amnesia documented in this encounter [facility]* Diagnosis Type 2 diabetes mellitus with hyperglycemia, with long-term current use of insulin (HCC)- Primary Essential hypertension Unspecified essential hypertension Atrial fibrillation, unspecified type (HCC) Mood disorder Unspecified episodic mood disorder Mixed hyperlipidemia Urinary frequency Noncompliance with treatment regimen Need for influenza vaccination Need for prophylactic vaccination and inoculation against influenza Type 2 diabetes mellitus with hyperglycemia, with long-term current use of insulin (HCC)- Primary Hypertension associated with type 2 diabetes mellitus (HCC) Hyperlipidemia associated with type 2 diabetes mellitus (HCC) Class 1 obesity with serious comorbidity and body mass index (BMI) of 31.0 to 31.9 in adult, unspecified obesity type documented in this encounter [facility]* Diagnosis Type 2 diabetes mellitus with hyperglycemia, with long-term current use of insulin (HCC)- Primary Essential hypertension Unspecified essential hypertension Atrial fibrillation, unspecified type (HCC) Mood disorder Unspecified episodic mood disorder Mixed hyperlipidemia Urinary frequency Noncompliance with treatment regimen Need for influenza vaccination Need for prophylactic vaccination and inoculation against influenza Fall, initial encounter- Primary Fall, initial encounter Syncope, unspecified syncope type Mixed Alzheimer and vascular dementia (CMS/HCC) At risk for delirium Moderate malnutrition (CMS/HCC) (HCC) [facility]* Diagnosis Type 2 diabetes mellitus with hyperglycemia, with long-term current use of insulin (HCC)- Primary Essential hypertension Unspecified essential hypertension Atrial fibrillation, unspecified type (HCC) Mood disorder Unspecified episodic mood disorder Mixed hyperlipidemia Urinary frequency Noncompliance with treatment regimen Need for influenza vaccination Need for prophylactic vaccination and inoculation against influenza Urinary tract infection in female- Primary Altered mental status, unspecified altered mental status type Urinary tract infection in female H/O: CVA (cerebrovascular accident) Memory impairment Memory loss Atrial fibrillation (HCC) Atrial fibrillation Obesity Obesity, unspecified [facility]* Attachments The following attachments cannot be sent through Care Everywhere. * Urinary Tract Infections in Adults (Bengali) [facility] for [facility] (narrative)* Consultation (Routine) - Pending Review Specialty Diagnoses / Procedures Referred By Contac t Referred To Contact Surgical Critical Care / Trauma Surgery Diagnoses Fall, initial encounter Procedures [place] OFFICE/OUTPATIENT NEW HIGH MDM 60 MINUTES Shaun Wang APRN - PROGRAM DEVELOPMENT MANAGER [address] [address] Ajit Morris MD [address] [address] Referral ID Status Reason Start Date Expiration Date Visits Requested Visits Authorized [id number] Pending Review Specialty Services Required 12/24/2023 12/23/2024 1 1 * Consultation (Routine) - Pending Review Specialty Diagnoses / Procedures Referred By Contac t Referred To Contact Geriatric Medicine Diagnoses Memory loss Procedures NC OFFICE/OUTPATIENT NEW HIGH MDM 60 MINUTES Birdie Steele MD 75 [facility] [address] [address] [facility] [address] [address] Referral ID Status Reason Start Date Expiration Date Visits Requested Visits Authorized [id number] Pending Review Specialty Services Required 12/13/2023 12/12/2024 1 1 * Consultation (Routine) - Pending Review Specialty Diagnoses / Procedures Referred By Minerva t Referred To Contact Wound Care Diagnoses 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) Procedures [place] OFFICE/OUTPATIENT NEW HIGH MDM 60 MINUTES Rhianna Engel APRN - CNP [address] [place] [address] [facility] [address] [place] [address] Referral ID Status Reason Start Date Expiration Date Visits Requested Visits Authorized [id number] Pending Review Specialty Services Required 12/13/2023 12/12/2024 1 1 [facility] for referral (narrative)No reason for referral information availableWSheltering Arms Hospital Work Phone: Advance Directives No Advanced Directives Records FoundDocuments on File Type Date Recorded Patient Honing Machine Try Out Setter Expl anation Advance Directives and Living Will Power of Director Investor Relations Latest Code Status on File Code Status Date Activated Date Inactivated Comments Full Code 11/29/2019 8:09 AM Latest Code Status on File Code Status Date Activated Date Inactivated Comments Full Code 01/21/2020 7:10 PM Full Code 01/21/2020 11:51 AM 01/21/2020 6:34 PM Full Code 11/29/2019 8:09 AM 12/03/2019 7:07 PM Documents on File Type Date Recorded Patient Honing Machine Try Out Setter Expl anation ACP-Advance Directive ACP-Power of Director Investor Relations Latest Code Status on File Code Status Date Activated Date Inactivated Comments Full Code 01/21/2020 7:10 PM 01/23/2020 5:58 PM Latest Code Status on File Code Status Date Activated Date Inactivated Comments DNR-CCA 12/13/2023 11:21 AM 12/24/2023 6:18 PM Question Answer Comments ICU transfer: Yes Intubation: No Code Status History Code Status Date Activated Date Inactivated Comments Full Code 12/13/2023 3:03 AM 12/13/2023 11:21 AM Documents on File Type Date Recorded Patient Honing Machine Try Out Setter Expl anation Advance Directives and Livin g Will 12/27/2023 11:38 AM Latest Code Status on File Code Status Date Activated Date Inactivated Comments DNR-CCA 12/13/2023 11:21 AM 12/24/2023 6:18 PM Question Answer Comments ICU transfer: Yes Intubation: No Code Status History Code Status Date Activated Date Inactivated Comments Full Code 12/13/2023 3:03 AM 12/13/2023 11:21 AM Documents on File Type Date Recorded Patient Honing Machine Try Out Setter Expl anation Advance Directives and Livin g Will 12/27/2023 11:38 AM Latest Code Status on File Code Status Date Activated Date Inactivated Comments DNR-CCA 01/11/2024 7:06 PM 01/15/2024 6:16 PM Question Answer Comments ICU transfer: Yes Intubation: No Code Status History Code Status Date Activated Date Inactivated Comments Full Code 01/11/2024 3:25 AM 01/11/2024 7:06 PM DNR-CCA 12/13/2023 11:21 AM 12/24/2023 6:18 PM Question Answer Comments ICU transfer: Yes Intubation: No Full Code 12/13/2023 3:03 AM 12/13/2023 11:21 AM Documents on File Type Date Recorded Patient Honing Machine Try Out Setter Expl anation Power of Director Investor Relations 02/04/2024 11:37 AM Advance Directives and Livin g Will 12/27/2023 11:38 AM Date Activated Date Inactivated Comments 01/11/2024 7:06 PM 01/15/2024 6:16 PM Question Answer Comments ICU transfer: Yes Intubation: No Date Activated Date Inactivated Comments 01/11/2024 3:25 AM 01/11/2024 7:06 PM Date Activated Date Inactivated Comments 12/13/2023 11:21 AM 12/24/2023 6:18 PM Question Answer Comments ICU transfer: Yes Intubation: No Date Activated Date Inactivated Comments 12/13/2023 3:03 AM 12/13/2023 11:21 AM Documents on File Type Date Recorded Patient Honing Machine Try Out Setter Expl anation Power of Director Investor Relations 02/04/2024 11:37 AM Advance Directives and Livin g Will 12/27/2023 11:38 AM Date Activated Date Inactivated Comments 10/18/2024 11:35 PM 10/23/2024 2:23 AM Question Answer Comments ICU transfer: Yes Intubation: No Date Activated Date Inactivated Comments 01/11/2024 7:06 PM 01/15/2024 6:16 PM Question Answer Comments ICU transfer: Yes Intubation: No Date Activated Date Inactivated Comments 01/11/2024 3:25 AM 01/11/2024 7:06 PM Date Activated Date Inactivated Comments 12/13/2023 11:21 AM 12/24/2023 6:18 PM Question Answer Comments ICU transfer: Yes Intubation: No Date Activated Date Inactivated Comments 12/13/2023 3:03 AM 12/13/2023 11:21 AM Healthcare Agents on File Name Relationship Healthcare Agent Relationshi p Communication Charbel Agee (POA) Child Health Care Agent Marbin Agee Child First Alternate Health Care Agent Date Activated Date Inactivated Comments 10/18/2024 11:35 PM 10/23/2024 2:23 AM Date Activated Date Inactivated Comments 01/11/2024 7:06 PM 01/15/2024 6:16 PM Question Answer Comments ICU transfer: Yes Intubation: No Date Activated Date Inactivated Comments 01/11/2024 3:25 AM 01/11/2024 7:06 PM Date Activated Date Inactivated Comments 12/13/2023 11:21 AM 12/24/2023 6:18 PM Question Answer Comments ICU transfer: Yes Intubation: No Date Activated Date Inactivated Comments 12/13/2023 3:03 AM 12/13/2023 11:21 AM Healthcare Agents on File Name Relationship Healthcare Agent Relationshi p Communication Charbel Agee (POA) Child Health Care Agent Marbin Agee Child First Alternate Health Care Agent Healthcare Agents on File Name Relationship Healthcare Agent Relationshi p Communication Charbel Agee (POA) Child Health Care Agent Marbin Agee Child First Alternate Health Care Agent Healthcare Agents on File Name Relationship Healthcare Agent Relationshi p Communication Charbel Agee (POA) Child Health Care Agent Marbin Agee Child First Alternate Health Care Agent Healthcare Agents on File Name Relationship Healthcare Agent Relationshi p Communication Charbel Agee (POA) Child Health Care Agent Marbin Agee Child First Alternate Health Care Agent Healthcare Agents on File Name Relationship Healthcare Agent Relationshi p Communication Charbel Agee (POA) Child Health Care Agent Marbin Agee Child First Alternate Health Care Agent Healthcare Agents on File Name Relationship Healthcare Agent Relationship Communication Charbel Agee (POA) Child Health Care Agent Marbin Agee Child First Alternate Health Care Agent Healthcare Agents on File Name Relationship Healthcare Agent Relationship Communication Charbel Agee (POA) Child Health Care Agent Marbin Agee Child First Alternate Health Care Agent Documents on File Type Date Recorded Patient Honing Machine Try Out Setter Expl anation Power of Director Investor Relations 02/04/2024 11:37 AM Advance Directives and Livin g Will 12/27/2023 11:38 AM DNR (Do Not Resuscitate) 01/21/2025 11:52 AM [place] DNR Form Healthcare Agents on File Name Relationship Healthcare Agent Relationship Communication Charbel Agee (POA) Child Health Care Agent Marbin Agee Child First Alternate Health Care Agent Documents on File Type Date Recorded Patient Honing Machine Try Out Setter Expl anation Power of Director Investor Relations 02/04/2024 11:37 AM Advance Directives and Livin g Will 12/27/2023 11:38 AM DNR (Do Not Resuscitate) 01/21/2025 11:52 AM [place] DNR Form Healthcare Agents on File Name Relationship Healthcare Agent Relationship Communication Charbel Agee (POA) Child Health Care Agent Marbin Agee Child First Alternate Health Care Agent Healthcare Agents on File Name Relationship Healthcare Agent Relationship Communication Charbel Agee (POA) Child Health Care Agent [email or web address] Marbin Agee Child First Alternate Health Care Agent Healthcare Agents on File Name Relationship Healthcare Agent Relationship Communication Charbel Félix (POA) Child Health Care Agent [email or web address] Marbin Agee Child First Alternate Health Care Agent Healthcare Agents on File Name Relationship Healthcare Agent Relationship Communication Charbel Félix (POA) Child Health Care Agent [email or web address] Marbni Agee Child First Alternate Health Care Agent Healthcare Agents on File Name Relationship Healthcare Agent Relationship Communication Charbel Félix (POA) Child Health Care Agent [email or web address] Marbin Agee Child First Alternate Health Care Agent Healthcare Agents on File Name Relationship Healthcare Agent Relationship Communication Charbel Félix (POA) Child Health Care Agent [email or web address] Marbin Agee Child First Alternate Health Care Agent Healthcare Agents on File Name Relationship Healthcare Agent Relationship Communication Charbel Félix (POA) Child Health Care Agent [email or web address] Marbin Agee Child First Alternate Health Care Agent Healthcare Agents on File Name Relationship Healthcare Agent Relationship Communication Charbel Félix (POA) Child Health Care Agent [email or web address] Marbin Sauceda First Alternate Health Care Agent Healthcare Agents on File Name Relationship Healthcare Agent Relationship Communication Charbel Agee (POA) Child Health Care Agent [email or web address] Marbin Sauceda First Alternate Health Care Agent Healthcare Agents on File Name Relationship Healthcare Agent Relationship Communication Charbel Agee (POA) Child Health Care Agent [email or web address] Marbin Shelton Alternate Health Care Agent Documents on File Type Date Recorded Patient Honing Machine Try Out Setter Expl anation Power of Director Investor Relations 02/04/2024 11:37 AM Advance Directives and Living Will 12/27/2023 11:38 AM DNR (Do Not Resuscitate) 06/09/2025 10:54 AM [place] DNR Form DNR (Do Not Resuscitate) 01/21/2025 11:52 AM [place] DNR Form Date Activated Date Inactivated Comments 06/05/2025 4:15 PM 06/09/2025 5:23 PM Date Activated Date Inactivated Comments 06/05/2025 2:48 PM 06/05/2025 4:15 PM Date Activated Date Inactivated Comments 10/18/2024 11:35 PM 10/23/2024 2:23 AM Date Activated Date Inactivated Comments 01/11/2024 7:06 PM 01/15/2024 6:16 PM Date Activated Date Inactivated Comments 01/11/2024 3:25 AM 01/11/2024 7:06 PM Healthcare Agents on File Name Relationship Healthcare Agent Relationship Communication Charbel Agee (POA) Child Health Care Agent [email or web address] Marbin Sauceda First Alternate Health Care Agent Healthcare Agents on File Name Relationship Healthcare Agent Relationship Communication Charbel Agee (POA) Child Health Care Agent [email or web address] Marbin Sauceda First Alternate Health Care Agent Healthcare Agents on File Name Relationship Healthcare Agent Relationship Communication Charbel Agee (POA) Child Health Care Agent [email or web address] Marbin Sauceda First Alternate Health Care Agent Documents on File Type Date Recorded Patient Honing Machine Try Out Setter Expl anation Power of Director Investor Relations 02/04/2024 11:37 AM Advance Directives and Living Will 12/27/2023 11:38 AM DNR (Do Not Resuscitate) 07/01/2025 10:40 AM [place] DNR Form DNR (Do Not Resuscitate) 06/09/2025 10:54 AM [place] DNR Form DNR (Do Not Resuscitate) 01/21/2025 11:52 AM [place] DNR Form Date Activated Date Inactivated Comments 06/28/2025 7:45 PM 07/01/2025 4:19 PM Question Answer Comments ICU transfer: Yes Intubation: Yes Date Activated Date Inactivated Comments 06/05/2025 4:15 PM 06/09/2025 5:23 PM Date Activated Date Inactivated Comments 06/05/2025 2:48 PM 06/05/2025 4:15 PM Date Activated Date Inactivated Comments 10/18/2024 11:35 PM 10/23/2024 2:23 AM Date Activated Date Inactivated Comments 01/11/2024 7:06 PM 01/15/2024 6:16 PM Question Answer Comments ICU transfer: Yes Intubation: No Healthcare Agents on File Name Relationship Healthcare Agent Relationship Communication Charbel Agee (POA) Child Health Care Agent [email or web address] Marbin Sauceda First Alternate Health Care Agent Hospital Course Note [facility] 1E MED SURG [address] [facility] [address] Dept: [phone] Loc: [phone] Adult Hip and Knee Reconstruction Service Patient Name: Beverly Agee Date of : 1945 Date: 01/23/20 Discharge Summary Admit date: 01/21/2020 Discharge date and time: 01/23/2020 3:15 PM Admitting Physician: Melo Keane MD Admission Diagnoses: right failed femoral nail Discharge Diagnoses: same Operative Procedures: right total hip arthroplasty Indication for Admission: The patient has a history of the above diagnosis that has become progressively worse and the patient has elected to proceed with the above procedure. Hospital Course: The patient was admitted to the hospital on the day of surgery and underwent the above procedure. Post-operatively, the patient was transferred to the orthopaedic floor. They received prophylactic intravenous antibiotics. DVT prophylaxis included SCDs, early ambulation, and Xarelto was started the evening of surgery. (more content not included)... Discharge Instructions * Discharge Instr - SEAN* Mercedes Sharma RN - 12/01/2019 12:23 PM EDT Continuity of Care Form Patient Name: Beverly Agee : 1945 Admit date: 11/29/2019 Discharge date: 12/03/19 Code Status Order: Full Code Advance Directives: Advance Care Flowsheet Documentation Date/Time Healthcare Directive Type of Healthcare Directive Copy in Chart Healthcare Agent Appointed Healthcare Agent's Name Healthcare Agent's Phone Number 11/29/19 0819 Yes, patient has an advance directive for healthcare treatment Living will;Durable power of securities attorney for health care No, copy requested from family Admitting Physician: Roula Coleman DO PCP: Grecia Mccabe MD Discharging Nurse: Mercedes SCOTT Discharging Hospital Unit/Room#: 1555/349223 Discharging Unit Emergency Contact: Extended Emergency Contact Information Primary Emergency Contact: FélixOdilon sauceda Address: [address] [place] [address] [place] [address] [facility] Relation: Child Secondary Emergency Contact: Charbel Agee [place] Relation: Child Past Surgical History: Past Surgical History: Procedure Laterality Date BREAST LUMPECTOMY Left 2012 s/p radiation as well BREAST LUMPECTOMY Left CATARACT REMOVAL WITH IMPLANT Bilateral 10/2015, 12/2015 SECTION CHOLECYSTECTOMY FEMUR FRACTURE SURGERY Right 11/30/2019 HYSTERECTOMY HYSTERECTOMY, TOTAL ABDOMINAL JOINT REPLACEMENT Immunization History: Immunization History Administered Date(s) Administered Influenza Vaccine, unspecified formulation 07/10/2014, 08/11/2015 Influenza Virus Vaccine 06/27/2012, 05/21/2013, 07/10/2014 Influenza Whole 06/27/2012, 05/21/2013 Influenza, High Dose (Fluzone 65 yrs and older) 08/11/2015, 08/07/2016, 06/06/2017, 07/02/2017, 07/21/2019 Pneumococcal Conjugate 13-valent ([id number]) 08/11/2015 Pneumococcal Conjugate Vaccine 08/01/2012 Pneumococcal Polysaccharide ([id number]) 08/07/2016 Active Problems: Patient Active Problem List Diagnosis Code 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, with long-term current use of insulin ([facility]) E11.22, E11.65, N18.3, Z79.4 Essential hypertension I10 Hyperlipidemia E78.5 Depression with anxiety F41.8 Psychophysiological insomnia F51.04 Malignant neoplasm of upper-outer quadrant of left female breast ([facility]) C50.412 Examination of participant in clinical trial Z00.6 Atrial fibrillation ([facility]) I48.91 History of radial keratotomy Z98.890 H/O: CVA (cerebrovascular accident) Z86.73 Hypomagnesemia E83.42 Hip fracture requiring operative repair, right, closed, initial encounter ([facility]) S72.001A Acute cystitis N30.00 Leukocytosis D72.829 Type 2 diabetes mellitus with hyperglycemia, with long-term current use of insulin ([facility]) E11.65, Z79.4 Falls W19.XXXA Unsteady gait R26.81 Memory problem R41.3 Tobacco dependence F17.200 Class 1 obesity due to excess calories with serious comorbidity and body mass index (BMI) of 33.0 to 33.9 in adult E66.09, Z68.33 E-coli UTI N39.0, B96.20 Isolation/Infection: Isolation No Isolation Patient Infection Status None to display Nurse Assessment: Last Vital Signs: BP (!) 117/55 Pulse 87 Temp 99 F (37.2 C) (Temporal) Resp 15 Ht 5' 5" (1.651 m) Wt 200 lb (90.7 kg) SpO2 95% BMI 33.28 kg/m Last documented pain score (0-10 scale): Pain Level: 4 Last Weight: Wt Readings from Last 1 Encounters: 11/29/19 200 lb (90.7 kg) Mental Status: oriented, alert, coherent, logical, thought processes intact and able to concentrateand follow conversation IV Access: - None Nursing Mobility/ADLs: Walking Assisted Transfer Assisted Bathing Assisted Dressing Assisted Toileting Assisted Feeding Independent Photography Intern Assisted Med Delivery whole Wound Care Documentation and Therapy: Elimination: Continence: Bowel: Yes Bladder: Yes Urinary Catheter: None Colostomy/Ileostomy/Ileal Conduit: No Date of Last BM: 11/29/19 Intake/Output Summary (Last 24 hours) at 12/01/2019 1439 Last data filed at 12/01/2019 1226 Gross per 24 hour Intake 3725 ml Output 2300 ml Net 1425 ml I/O last 3 completed shifts: In: 4225 [P.O.:1440; I.V.:2785] Out: 2240 [Urine:2140; Blood:100] Safety Concerns: History of Falls (last 30 days) and At Risk for Falls Impairments/Disabilities: None Nutrition Therapy: Current Nutrition Therapy: - Oral Diet: General Routes of Feeding: Oral Liquids: Thin Liquids Daily Fluid Restriction: no Last Modified Barium Swallow with Video (Video Swallowing Test): not done Treatments at the Time of Hospital Discharge: Respiratory Treatments: none Oxygen Therapy: is not on home oxygen therapy. Ventilator: - No ventilator support Rehab Therapies: Physical Therapy and Occupational Therapy Weight Bearing Status/Restrictions: No weight bearing restirctions Other Medical Equipment (for information only, NOT a DME order): walker Other Treatments: Patient's personal belongings (please select all that are sent with patient): Dentures upper and lower RN SIGNATURE: CASE MANAGEMENT/SOCIAL WORK SECTION Inpatient Status Date: 11/29/19 Readmission Risk Assessment Score: Readmission Risk Risk of Unplanned Readmission: 17 Discharging to Facility/ Agency Name: [facility] Address:[address] [place] [address] Dialysis Facility (if applicable) Name: Address: Dialysis Schedule: Phone: Fax: [employer] Technician/Roll Dough Divider signature: {Esignature:[id number]} ICIAN SECTION Prognosis: Fair Condition at Discharge: Stable Rehab Potential (if transferring to Rehab): Fair Recommended Labs or Other Treatments After Discharge: monitor BGT FOLLOW up with ortho in 2 weeks Physician Certification: I certify the above information and transfer of Beverly Agee is necessary for the continuing treatment of the diagnosis listed and that she requires Acute Rehab for less 30days. Update Admission H&P: No change in H&P PHYSICIAN SIGNATURE: * Additional Instructions* Khadar Chua MD - 11/30/2019 General Orthopedic Discharge Instructions The following instructions have been prepared to help you when you leave the hospital. These guidelines are for the post-surgery period. Activity: Ease into normal activity as tolerated. Medications: see medication instructions. Please be sure to read and understand the information provided by your pharmacy. Ask your Pharmacist if any questions. Wound Care and Hygiene: -Wash hands before touching or changing dressings -Do Not touch incision -Leave dressing till post-op day 2 and reapply dressing if wound is draining. If wound is dry, you may leave dressing off -May shower starting post-op day 3 Call Your Doctor for: -Excessive bleeding/swelling of incision -Fever with temperature above 100 F Anesthesia Precautions: -Do Not operate any vehicle (automobile, bicycle, motorcycle) or power tools for 24 hours -Do Not drink alcoholic beverages for 24 hours -As precaution to prevent post-operative nausea and vomiting, start your diet with liquids, then progress to light foods. If tolerated, resume normal diet. Additional Instructions: Weight bearing as tolerated right lower extremity Continue PT Contact your surgeon's office (Dr. Keane), to set up an appointment in 2 weeks, or if you have any problems or questions. documented in this encounter* Discharge Instr - Diet* Katheryn Flower RD, BEVERLY - 01/22/2020 9:44 AM EDT ? Good nutrition is important when healing from an illness, injury, or surgery. Follow any nutrition recommendations given to you during your hospital stay. ? If you were given an oral nutrition supplement while in the hospital, continue to take this supplement at home. You can take it with meals, in-between meals, and/or before bedtime. These supplements can be purchased at most local grocery stores, pharmacies, and chain [employer]-stores. ? If you have any questions about your diet or nutrition please call [phone] to speak with a dietitian * Discharge Instr - SEAN* Danni De Luna MD - 01/22/2020 1:16 PM EDT Continuity of Care Form Patient Name: Beverly Agee : 1945 Admit date: 01/21/2020 Discharge date: Code Status Order: Full Code Advance Directives: Advance Care Flowsheet Documentation Date/Time Healthcare Directive Type of Healthcare Directive Copy in Chart Healthcare Agent Appointed Healthcare Agent's Name Healthcare Agent's Phone Number 01/21/20 7752 Yes, patient has an advance directive for healthcare treatment Durable power of securities attorney for health care;Living will No, copy requested from family Healthcare power of securities attorney zohreh -- Admitting Physician: Melo Keane MD PCP: Grecia Mccabe MD Discharging Nurse: Discharging Hospital Unit/Room#: 146/1462 Discharging Unit Phone Number: Emergency Contact: Extended Emergency Contact Information Primary Emergency Contact: Odilon Agee Address: [address] [place] [address] [place] [address] [facility] Relation: Child Secondary Emergency Contact: Charbel Agee [facility] Relation: Child Past Surgical History: Past Surgical History: Procedure Laterality Date BREAST LUMPECTOMY Left 2012 s/p radiation as well BREAST LUMPECTOMY Left CATARACT REMOVAL WITH IMPLANT Bilateral 10/2015, 12/2015 SECTION CHOLECYSTECTOMY DILATION AND CURETTAGE OF UTERUS FEMUR FRACTURE SURGERY Right 11/30/2019 HIP ARTHROPLASTY Right 01/21/2020 conversion HYSTERECTOMY, TOTAL ABDOMINAL JOINT REPLACEMENT Bilateral ROTATOR CUFF REPAIR Right Immunization History: Immunization History Administered Date(s) Administered Influenza Vaccine, unspecified formulation 07/10/2014, 08/11/2015 Influenza Virus Vaccine 06/27/2012, 05/21/2013, 07/10/2014 Influenza Whole 06/27/2012, 05/21/2013 Influenza, High Dose (Fluzone 65 yrs and older) 08/11/2015, 08/07/2016, 06/06/2017, 07/02/2017, 07/21/2019 Pneumococcal Conjugate 13-valent (Cpsbtor50) 08/11/2015 Pneumococcal Conjugate Vaccine 08/01/2012 Pneumococcal Polysaccharide (Cjujsyljq04) 08/07/2016 Active Problems: Patient Active Problem List Diagnosis Code 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, with long-term current use of insulin ([facility]) E11.22, E11.65, N18.3, Z79.4 Essential hypertension I10 Hyperlipidemia E78.5 Depression with anxiety F41.8 Psychophysiological insomnia F51.04 Malignant neoplasm of upper-outer quadrant of left female breast ([facility]) C50.412 Examination of participant in clinical trial Z00.6 Atrial fibrillation ([facility]) I48.91 History of radial keratotomy Z98.890 H/O: CVA (cerebrovascular accident) Z86.73 Hypomagnesemia E83.42 Hip fracture requiring operative repair, right, closed, initial encounter ([facility]) S72.001A Acute cystitis N30.00 Leukocytosis D72.829 Type 2 diabetes mellitus with hyperglycemia, with long-term current use of insulin ([facility]) E11.65, Z79.4 Falls W19.XXXA Unsteady gait R26.81 Memory problem R41.3 Tobacco dependence F17.200 Class 1 obesity due to excess calories with serious comorbidity and body mass index (BMI) of 33.0 to 33.9 in adult E66.09, Z68.33 E-coli UTI N39.0, B96.20 Hip fracture, right, closed, initial encounter ([facility]) S72.001A Isolation/Infection: Isolation No Isolation Patient Infection Status None to display Nurse Assessment: Last Vital Signs: BP 102/66 Pulse 101 Temp 98.1 F (36.7 C) (Temporal) Resp 18 Ht 5' 5" (1.651 m) Wt 188 lb 1 oz (85.3 kg) SpO2 100% BMI 31.30 kg/m Last documented pain score (0-10 scale): Pain Level: 9 Last Weight: Wt Readings from Last 1 Encounters: 01/21/20 188 lb 1 oz (85.3 kg) Mental Status: {IP PT MENTAL STATUS:} IV Access: { SEAN IV ACCESS:302933773} Nursing Mobility/ADLs: Walking {CHP DME ADLs:632835882} Transfer {CHP DME ADLs:225593733} Bathing {CHP DME ADLs:235166727} Dressing {CHP DME ADLs:117210701} Toileting {CHP DME ADLs:496789684} Feeding {CHP DME ADLs:935961210} Photography Intern {CHP DME ADLs:023950628} Med Delivery { SEAN MED Delivery:712149188} Wound Care Documentation and Therapy: Elimination: Continence: Bowel: {YES / NO:} Bladder: {YES / NO:} Urinary Catheter: {Urinary Catheter:548866822} Colostomy/Ileostomy/Ileal Conduit: {YES / NO:} Date of Last BM: Intake/Output Summary (Last 24 hours) at 01/22/2020 1315 Last data filed at 01/22/2020 0722 Gross per 24 hour Intake 20 ml Output 105 ml Net -85 ml I/O last 3 completed shifts: In: - Out: 105 [Drains:105] Safety Concerns: { SEAN Safety Concerns:621548017} Impairments/Disabilities: { SEAN Impairments/Disabilities:233316453} Nutrition Therapy: Current Nutrition Therapy: { SEAN Diet List:014216363} Routes of Feeding: {CHP DME Other Feedings:857365976} Liquids: {Exchange Teller liquid thickness:89322} Daily Fluid Restriction: {CHP DME Yes amt example:091152818} Last Modified Barium Swallow with Video (Video Swallowing Test): {Done Not Done Date:} Treatments at the Time of Hospital Discharge: Respiratory Treatments: Oxygen Therapy: {Therapy; copd oxygen:46865} Ventilator: {[facility] Vent List:870896832} Rehab Therapies: {THERAPEUTIC INTERVENTION:0948571770} Weight Bearing Status/Restrictions: {[facility] Weight Bearin} Other Medical Equipment (for information only, NOT a DME order): {EQUIPMENT:676921740} Other Treatments: Patient's personal belongings (please select all that are sent with patient): {CHP DME Belongings:401800626} RN SIGNATURE: {Esignature:810900467} CASE MANAGEMENT/SOCIAL WORK SECTION Inpatient Status Date: Outpatient Readmission Risk Assessment Score: Readmission Risk Risk of Unplanned Readmission: 0 Discharging to Facility/ Agency Name: [facility] Address: [address] [place] [address] Dialysis Facility (if applicable) Name: Address: Dialysis Schedule: Phone: Fax: [employer] Technician/Roll Dough Divider signature: PHYSICIAN SECTION Prognosis: Good Condition at Discharge: Stable Rehab Potential (if transferring to Rehab): Good Recommended Labs or Other Treatments After Discharge: n/a Physician Certification: I certify the above information and transfer of Beverly Agee is necessary for the continuing treatment of the diagnosis listed and that she requires Acute Rehab for [id number] days. Update Admission H&P: No change in H&P PHYSICIAN SIGNATURE: * Additional Instructions* Dom Bush PA - 01/20/2020 [facility] DEPT [address] [place] [address] Dept: [phone] Loc: [phone] Melo Keane Adult Hip and Knee Reconstruction [phone] Total Hip Discharge Instruction Physical Therapy - PWB (50%) operative extremity Physical Therapy should be arranged for you prior to your discharge. Therapy should begin 1 or 2 days after surgery and continue 3 times a week for a month. Do the exercises at home on the days you do not see a therapist. Dressing Your wound will be covered by a dressing after surgery. It should usually be removed after 10 days.You can shower as long as there is no drainage from the wound. After the dressing is removed it is not recommended to apply any cream, ointment or lotion to the wound unless specifc instructions are given by your surgeon. Most of the time, your stitches will be under the skin and will dissolve of their own. If you have prakash or external stitches they can be removed 10 days after surgery as long as there is no drainage. If the wound is draining, the dressing should be changed daily. The wound should be dry and without drainage by about 7 days postoperative. If there is persistent drainage from the wound after this time period, you should call our office immediately. If there is worsening redness around the incision, you should also call the office immediately. These may be signs of a superficial or deep woundinfection and you may have to return to the office for an evaluation by one of our staff. Common concerns after hip replacement surgery include swelling and bruising. These can be quite signifcant in nature and can appear anywhere from the thigh to the toes. These are typically worse at night which can contribute to trouble sleeping comfortably for more than one to two hours at a time. Activity You will be using an assistive device (walker, crutches, or cane). Your physical therapist will help you with this. Most patients are able to get in and out of bed, use the rest room, and go up and down stairs when they go home. We d like you to get up and walk every hour after surgery. For the first 1-2 weeks you will be walking with a walker or two crutches. After that, you can start using a cane. Preventing Postoperative Hip Dislocations Dislocations are rare, but if they occur they most often occur the first 3 months after surgery. Before surgery, the physical therapist begins teaching you special precautions and how to avoid dislocation. After surgery, everyone will be reminding you not to bend the hip too much, not to twist at the waist, and to avoid turning your leg in or out.patients hip joints are so stable after surgery that they do not have dislocation precautions. If you are one of these patients, the therapist will tell you not to worry about dislocation but you should still avoid extreme bending and twisting. Again, your therapist will go over this after surgery. Bathing Your dressing is waterproof. You may take a shower but not a bath. Precautions It is very common to have swelling and bruising in the thigh, lower leg and foot after surgery. Elevating your leg, doing ankle pump exercises, and using ice packs will help. Call us if the swelling does not subside overnight. Call for a temperature over 101. Take the pain medications as needed for pain. Pain pills can cause constipation. Use over the counter stool softeners like Colace to avoid constipation. If Colace is not effective use a gentle over the counter laxative such as Miralx Please refer to your medication sheet for more information regarding any prescriptions you have been given to take after surgery. Follow up office visit The Doctor would like see you in 4 weeks. If the followup appointment is not already made the office will call within 2 weeks. Please avoid any other surgery, procedure or dental procedure until cleared by Dr. Keane * Attachments The following attachments cannot be sent through Care Everywhere. * DIABETES DIET GUIDELINES: GENERAL INFO (TAJIK) * DIABETES DIET MEAL PLANNING: GENERAL INFO (TAJIK) documented in this encounter History of Present Illness * Mercedes Sharma RN - 12/03/2019 4:54 PM EDT IV catheter discontinued with insyte intact. DSD applied. Report called to Eusebia SCOTT at [facility]. Nurse verbalized no further questions. * Marbin Mcguire PTA - 12/03/2019 10:53 AM EDT Physical Therapy Facility/Department: [facility] Daily Treatment Note NAME: Beverly Agee : 1945 Date of Service: 12/03/2019 Discharge Recommendations: IP Rehab PT Equipment Recommendations Other: tbd Assessment Body structures, Functions, Activity limitations: Decreased functional mobility ;Decreased balance;Decreased ADL status;Decreased endurance;Increased pain;Decreased strength Assessment: pt limited by decreased functional strength/endurance and impaired dynamic balance d/t decreased WB ability RLE. pt able to perform RLE ther ex w/ no c/o increased pain today. pt able to stand x2 trials w/ Min x1 today. pt able to increase overall gait distance using FWW; alternating between step-to and reciprocal gait patterns. pt would benefit from ongoing inpt rehab post Disch. Treatment Diagnosis: difficulty walking Specific instructions for Next Treatment: functional strength/endurance training. Prognosis: Fair Decision Making: Low Complexity REQUIRES PT FOLLOW UP: Yes Activity Tolerance Activity Tolerance: Patient Tolerated treatment well;Patient limited by fatigue;Patient limited by endurance Patient Diagnosis(es): The primary encounter diagnosis was Hyperglycemia. Diagnoses of Generalized weakness, Urinary tract infection without hematuria, site unspecified, Fall, initial encounter, Closed displaced intertrochanteric fracture of right femur, initial encounter (HCC), and Essential hypertension were also pertinent to this visit. has a past medical history of Arrhythmia, Arthritis, Atrial fibrillation (HCC), Breast CA (HCC), Cancer (HCC), Cerebral artery occlusion with cerebral infarction (HCC), Depression, History of blood transfusion, Hyperlipidemia, Hypertension, and Type II or unspecified type diabetes mellitus without mention of complication, not stated as uncontrolled. has a past surgical history that includes Breast lumpectomy (Left, 2012); Cholecystectomy; Cesareansection; Hysterectomy; joint replacement; Breast lumpectomy (Left); Cataract removal with implant (Bilateral, 10/2015, 12/2015 ); Hysterectomy, total abdominal; and Femur fracture surgery (Right, 11/30/2019). Restrictions Restrictions/Precautions Restrictions/Precautions: Fall Risk, Weight Bearing Required Braces or Orthoses?: No Lower Extremity Weight Bearing Restrictions Right Lower Extremity Weight Bearing: Weight Bearing As Tolerated Left Lower Extremity Weight Bearing: Weight Bearing As Tolerated Subjective General Chart Reviewed: Yes Additional Pertinent Hx: bilat. TKA Response To Previous Treatment: Patient with no complaints from previous session. Family / Caregiver Present: No Subjective Subjective: pt in chair, agreeable to PT. nsg cleared pt for PT. DIRECTOR OF PREMIUM SEAT SALES wore N95 throughout session. General Comment Comments: Dx: right IT fracture, s/p CMN Pain Screening Patient Currently in Pain: No(pt had no c/o pain pre Rx. ) Pain Assessment Clinical Progression: Not changed Vital Signs Patient Currently in Pain: No(pt had no c/o pain pre Rx. ) Orientation Orientation Overall Orientation Status: Within Functional Limits Cognition Objective Transfers Sit to Stand: Minimal Assistance(x2 rep) Stand to sit: Contact guard assistance Comment: x2 from chair; cues to scoot RLE forward for sit<-->stand. Ambulation Ambulation?: Yes WB Status: WBAT BLE More Ambulation?: No Ambulation 1 Surface: level tile Device: Rolling Walker Assistance: Minimal assistance Quality of Gait: decreased WB RLE; increased BUE support on FWW; decreased step length/height Gait Deviations: Slow [place];Decreased step length;Decreased step height Distance: 20' x2 Comments: x1 stand rest d/t BUE fatigue. Stairs/Curb Stairs?: No Balance Posture: Fair Sitting - Static: Good Sitting - Dynamic: Good;- Standing - Static: Fair Standing - Dynamic: Fair;- Comments: pt performed static standing in FWW; progressed to alt UE reaching across midline to target. Exercises Quad Sets: x8 rep w/ 3sec hold Gluteal Sets: x8 rep w/ 3 sec hold Knee Long Arc Quad: x10 rep ea LE; LLE AROM; RLE SAROM Ankle Pumps: x15 rep ea DF/PF seated Comments: ther ex handout provided. Other exercises Other exercises?: No G-Code OutComes Score AM-PAC Score AM-[facility] Inpatient Mobility Raw Score : 11 (12/03/19 105) AM-PAC Inpatient T-Scale Score : 33.86 (12/03/191052) Mobility Inpatient CMS 0-100% Score: 72.57 (12/03/191052) Mobility Inpatient CMS G-Code Modifier : CL (12/03/191052) Goals Short term goals Time Frame for Short term goals: 2 weeks Short term goal 1: bed mobility modified independent NOT MET Short term goal 2: transfers modified independent PROGRESSING Short term goal 3: ambulate 150 ft. with device, supervision PROGRESSING Short term goal 4: negotiate 2 steps, supervision NOT ADDRESSED Patient Goals Patient goals : To go home. Plan Plan Times per week: 5-7x/wk Plan weeks: 2 Specific instructions for Next Treatment: functional strength/endurance training. Current Treatment Recommendations: Strengthening, Transfer Training, Balance Training, Gait Training, Home Exercise Program, Functional Mobility Training, Stair training Plan Comment: Cont PT POC Safety Devices Type of devices: All fall risk precautions in place, Call light within reach, Gait belt, Left in chair, Nurse notified Restraints Initially in place: No Therapy Time Individual Concurrent Group Co-treatment Time In 1015 Time Out 1040 Minutes 25 Timed Code Treatment Minutes: 25 Minutes(FA x1; GT x1) Marbin Mcguire PTA * Lori Armas RN - 12/02/2019 4:01 PM EDT Cancelled Transport for pt as SNF will not accept pt WO auth. Waiting on response to CAROLA Garcia. * Lori Armas RN - 12/02/2019 3:44 PM EDT SNF called, stated they have no auth and cannot accept pt without it. Page to CAROLA Garcia to advise and update. Waiting for response. * Roosevelt Huang MD - 12/02/2019 12:02 PM EDT [facility] Progress Note Beverly Agee : 1945(74 y.o.) Date: 12/02/19 Subjective: HPI The patient complains of hip pain Feels ok this morning, mild hip sorenss Has been working with PT/OT Insurance denied IPR, looking into SNFs now Scheduled Meds: glipiZIDE 10 mg Oral BID AC rivaroxaban 20 mg Oral Daily sodium chloride flush 3 mL Intravenous Q8H vitamin D 5,000 Units Oral Daily fenofibrate 54 mg Oral Daily insulin lispro 10 Units Subcutaneous TID WC insulin glargine 40 Units Subcutaneous Nightly [Held by provider] losartan 25 mg Oral Daily insulin lispro 0-12 Units Subcutaneous TID WC insulin lispro 0-6 Units Subcutaneous Nightly mirtazapine 15 mg Oral Nightly pravastatin 40 mg Oral Daily venlafaxine 150 mg Oral Daily vitamin B-12 500 mcg Oral Daily sodium chloride flush 10 mL Intravenous 2 times per day magnesium oxide 400 mg Oral BID Continuous Infusions: dextrose 100 mL/hr (11/30/19 0840) PRN Meds:tiZANidine, sodium chloride flush, acetaminophen OR acetaminophen, polyethylene glycol, promethazine OR ondansetron, glucose, dextrose, glucagon (rDNA), dextrose, metoprolol, hydrALAZINE, oxyCODONE, oxyCODONE, morphine OR morphine Review of Systems Constitutional: Negative for chills and fever. Respiratory: Negative for cough and shortness of breath. Cardiovascular: Negative for chest pain and leg swelling. Gastrointestinal: Negative for abdominal pain, diarrhea, nausea and vomiting. Musculoskeletal: Positive for arthralgias (hip pain). Interval Pertinent History: Social History Tobacco Use Smoking status: Heavy Tobacco Smoker Packs/day: 0.50 Years: 45.00 Pack years: 22.50 Types: Cigarettes Smokeless tobacco: Never Used Tobacco comment: 15 cigarettes per day Substance Use Topics Alcohol use: Yes Alcohol/week: 0.0 standard drinks Comment: rarely Objective: Patient Vitals for the past 24 hrs: BP Temp Temp src Pulse Resp SpO2 12/02/19 0724 76 12/02/19 0538 135/75 97.2 F (36.2 C) Temporal 87 18 93 % 12/02/19 0047 126/66 97.5 F (36.4 C) Temporal 76 18 97 % 12/01/19 2119 126/74 95.9 F (35.5 C) Temporal 82 18 97 % 12/01/19 1604 (!) 113/48 98.6 F (37 C) Temporal 84 16 94 % Average, Min, and Max for last 24 hours Vitals: TEMPERATURE: Temp Av.3 F (36.3 C) Min: 95.9 F (35.5 C) Max: 98.6 F (37 C) RESPIRATIONS RANGE: Resp Av.5 Min: 16 Max: 18 PULSE RANGE: Pulse Av Min: 76 Max: 87 BLOOD PRESSURE RANGE: Systolic (24hrs), Av , Min:113 , Max:135 ; Diastolic (24hrs), Av, Min:48, Max:75 PULSE OXIMETRY RANGE: SpO2 Av.3 % Min: 93 % Max: 97 % I/O last 3 completed shifts: In: 2100 [P.O.:1500; I.V.:600] Out: 1200 [Urine:1200] Physical Exam Vitals signs and nursing note reviewed. Constitutional: General: She is not in acute distress. Appearance: She is well-developed. She is obese. She is not diaphoretic. Cardiovascular: Rate and Rhythm: Normal rate and regular rhythm. Heart sounds: Normal heart sounds. Pulmonary: Effort: Pulmonary effort is normal. No respiratory distress. Breath sounds: Normal breath sounds. Abdominal: General: Bowel sounds are normal. Palpations: Abdomen is soft. Musculoskeletal: General: Swelling ( improved) present. Comments: R hip with surgical wound dressing clean/dry/intact No large bruising Neurological: Mental Status: She is alert. Lab Results Component Value Date WBC 12.0 (H) 12/02/2019 HGB 9.2 (L) 12/02/2019 HCT 27.4 (L) 12/02/2019 MCV 89.9 12/02/2019 PLT 205 12/02/2019 Lab Results Component Value Date NA 137 12/02/2019 K 3.6 12/02/2019 CL 105 12/02/2019 CO2 26 12/02/2019 BUN 13 12/02/2019 CREATININE 0.61 12/02/2019 GLUCOSE 105 12/02/2019 CALCIUM 8.8 12/02/2019 Lab Results Component Value Date LABA1C 12.2 (H) 11/29/2019 Additional results of the last 24 hours have been reviewed. Assessment and Plan: Principal Problem: Hip fracture requiring operative repair, right, closed, initial encounter ([facility]) Active Problems: Essential hypertension Hyperlipidemia Depression with anxiety Psychophysiological insomnia Atrial fibrillation ([facility]) H/O: CVA (cerebrovascular accident) Hypomagnesemia Acute cystitis Leukocytosis Type 2 diabetes mellitus with hyperglycemia, with long-term current use of insulin ([facility]) Falls Unsteady gait Memory problem Tobacco dependence Class 1 obesity due to excess calories with serious comorbidity and body mass index (BMI) of 33.0 to 33.9 in adult E-coli UTI Resolved Problems: * No resolved hospital problems. * Right Hip fracture- s/p R intramedullary nailing 11/30/19 - Ortho signed off - WBAT, 24 h assist - Cont pain control - Will need repeat XRs in SNF and fu with ortho in 2 weeks Falls/Unsteady gait - pt/ot, placement Essential hypertension - Home losartan held given fall and pt being down when she came in - BP ok - PRN hydralazine and lopressor Hyperlipidemia - cont statin and fenofibrate Depression with anxiety/Psychophysiological - continue Effexor 150 mg daily. Remeron decreased 30--> 15 mg nightly for optimal benefit for insomnia Atrial fibrillation (HCC)/history of stroke - Cont xeralto Hypomagnesemia/hypokalemia - resolved E.coli UTI Leukocytosis- resolved - e.coli is fan sensitive. - completed treatment IDDM2, uncontrolled, A1c 12.2 - forgets for take insulin -at home on humalog 10 TID, lantus 40 units nightly , glipizide 10 mg BID - here on humalog 10 tid + lantus 40. Glipizide resarted 11/30 -Monitor BS Memory problem - ? After stroke - forgets to take meds per chart review - consider outpatient geriatrics eval Tobacco dependence - cessation education Obesity BMI 33.4 - healthy diet encouraged DVTProphylaxis: full anticoagulation xarelto Disposition:await placement Medically stable for discharge I spent over 51% of total time providing counseling or incoordination of care: > 35 minutes patient and family updated, I personally examined the patient and I personally reviewed chart, data, labs radiology reports D/W TCC 6AM-6PM please page: Roosevelt Huang 6PM-6AM please page: [facility] [place] [facility] * Jake Mckeon OTA - 12/02/2019 11:49 AM EDT Occupational Therapy Facility/Department: [facility] Daily Treatment Note NAME: Bevrely Agee : 1945 Date of Service: 12/02/2019 Discharge Recommendations: (facility base therapies vs home with 24 hour assist and home therapies) Assessment Assessment: Pt. tolerated OT fair due to pain. Pt. would have done better if she got her pain med prior to OT session. Pt. was told she did not qualify for IP Rehab and that she would have to go SNF.Pt. would rather go home instead. Pt. states she could have her unemployed son come live with her for 2 weeks and get home care therapies. OT recommend facility base therapy vs home with home therapies and 24 hour assist. depending on pt's progress. Prognosis: Good OT Education: OT Role;Transfer Training;Plan of Care;ADL Adaptive Strategies REQUIRES OT FOLLOW UP: Yes Activity Tolerance Activity Tolerance: Patient limited by pain;Patient limited by fatigue Safety Devices Safety Devices in place: Yes Type of devices: Call light within reach;Patient at risk for falls;All fall risk precautions in place;Left in bed;Gait belt;Nurse notified Patient Diagnosis(es): The primary encounter diagnosis was Hyperglycemia. Diagnoses of Generalized weakness, Urinary tract infection without hematuria, site unspecified, Fall, initial encounter, Closed displaced intertrochanteric fracture of right femur, initial encounter (HCC), and Essential hypertension were also pertinent to this visit. has a past medical history of Arrhythmia, Arthritis, Atrial fibrillation (HCC), Breast CA (HCC), Cancer (HCC), Cerebral artery occlusion with cerebral infarction (HCC), Depression, History of blood transfusion, Hyperlipidemia, Hypertension, and Type II or unspecified type diabetes mellitus without mention of complication, not stated as uncontrolled. has a past surgical history that includes Breast lumpectomy (Left, 2012); Cholecystectomy; Cesareansection; Hysterectomy; joint replacement; Breast lumpectomy (Left); Cataract removal with implant (Bilateral, 10/2015, 12/2015 ); Hysterectomy, total abdominal; and Femur fracture surgery (Right, 11/30/2019). Restrictions Restrictions/Precautions Restrictions/Precautions: Fall Risk, Weight Bearing Required Braces or Orthoses?: No Lower Extremity Weight Bearing Restrictions Right Lower Extremity Weight Bearing: Weight Bearing As Tolerated Left Lower Extremity Weight Bearing: Weight Bearing As Tolerated Subjective General Chart Reviewed: Yes Patient assessed for rehabilitation services?: Yes Family / Caregiver Present: No Pain Assessment Pain Level: 9 Pain Type: Acute pain;Surgical pain Pain Location: Hip Pain Orientation: Right Pain Frequency: Continuous Pre Treatment Pain Screening Intervention List: Patient able to continue with treatment;Nurse/Physician notified;Nurse called toadminister meds Vital Signs Patient Currently in Pain: Yes Orientation Orientation Overall Orientation Status: Within Normal Limits Objective ADL Grooming: Supervision;Increased time to complete(shampoo cap, oral care and combing hair) UE Bathing: Supervision;Increased time to complete LE Bathing: Increased time to complete;Maximum assistance UE Dressing: Increased time to complete;Minimal assistance(gown) LE Dressing: Increased time to complete(depends, pants and socks) Toileting: Moderate assistance Balance Sitting Balance: Supervision Standing Balance: Moderate assistance Functional Mobility Functional - Mobility Device: Rolling Walker Activity: To/from bathroom Assist Level: Minimal assistance Functional Mobility Comments: Pt. required increased time to performed functional mobility using FWW. Toilet Transfers Toilet - Technique: Ambulating Equipment Used: Standard bedside commode Toilet Transfer: Moderate assistance Bed mobility Rolling to Right: Stand by assistance Sit to Supine: Moderate assistance Scooting: Stand by assistance Transfers Stand Step Transfers: Minimal assistance Sit to stand: Moderate assistance Stand to sit: Minimal assistance Cognition Overall Cognitive Status: WFL Plan Plan Times per week: 5-7 Plan weeks: 2 Current Treatment Recommendations: Strengthening, Balance Training, Functional Mobility Training, Endurance Training, Gait Training, Pain Management, Safety Education & Training, Equipment Evaluation, Education, & procurement, Patient/Caregiver Education & Training, Self-Care / ADL, Home Management Training Plan Comment: continue OT POC Goals Short term goals Time Frame for Short term goals: 2 weeks Short term goal 1: LBD with AE supervision -progressing Short term goal 2: toileting with GB SBA -progressing Short term goal 3: grooming at sink in FWW SBA -progressing Short term goal 4: FWW safety no cues -progressing Therapy Time Individual Concurrent Group Co-treatment Time In 1017 Time Out 1112 Minutes 55 Timed Code Treatment Minutes: 55 Minutes(selfcare-2, ther act-2) ESTELITA Ly * Rin Navarro, PT - 12/02/2019 9:40 AM EDT Physical Therapy Facility/Department: [facility] Daily Treatment Note NAME: Beverly Agee : 1945 Date of Service: 12/02/2019 Discharge Recommendations: IP Rehab PT Equipment Recommendations Other: tbd Assessment Body structures, Functions, Activity limitations: Decreased functional mobility ;Decreased balance;Decreased ADL status;Decreased endurance;Increased pain;Decreased strength Assessment: Pt. present with impaired mobility. Difficulty with transfers and gait, c/p pain on right hip limiting functional mobility and level of independence. Unsafe to return home alone. RecommedRehab at discharge, fair potential to tolerate 15 hours of therapy per week. Treatment Diagnosis: difficulty walking PT Education: Goals;PT Role;Plan of Care;Home Exercise Program Patient Education: handout provided for hip fracture exercises REQUIRES PT FOLLOW UP: Yes Activity Tolerance Activity Tolerance: Patient limited by pain;Patient limited by fatigue Patient Diagnosis(es): The primary encounter diagnosis was Hyperglycemia. Diagnoses of Generalized weakness, Urinary tract infection without hematuria, site unspecified, Fall, initial encounter, Closed displaced intertrochanteric fracture of right femur, initial encounter (HCC), and Essential hypertension were also pertinent to this visit. has a past medical history of Arrhythmia, Arthritis, Atrial fibrillation (HCC), Breast CA (HCC), Cancer (HCC), Cerebral artery occlusion with cerebral infarction (HCC), Depression, History of blood transfusion, Hyperlipidemia, Hypertension, and Type II or unspecified type diabetes mellitus without mention of complication, not stated as uncontrolled. has a past surgical history that includes Breast lumpectomy (Left, 2012); Cholecystectomy; Cesareansection; Hysterectomy; joint replacement; Breast lumpectomy (Left); Cataract removal with implant (Bilateral, 10/2015, 12/2015 ); Hysterectomy, total abdominal; and Femur fracture surgery (Right, 11/30/2019). Restrictions Restrictions/Precautions Restrictions/Precautions: Fall Risk, Weight Bearing Lower Extremity Weight Bearing Restrictions Right Lower Extremity Weight Bearing: Weight Bearing As Tolerated Left Lower Extremity Weight Bearing: Weight Bearing As Tolerated Subjective General Chart Reviewed: Yes Additional Pertinent Hx: bilat. TKA Family / Caregiver Present: No Subjective Subjective: Pt. laying in bed, agree with PT treatment. PT wearing N95 mask. General Comment Comments: Dx: right IT fracture, s/p CMN Pain Screening Patient Currently in Pain: Yes Pain Assessment Pain Assessment: 0-10 Pain Level: 8 Pain Type: Acute pain;Surgical pain Pain Location: Hip Pain Orientation: Right Functional Pain Assessment: Prevents or interferes with all active and some passive activities Non-Pharmaceutical Pain Intervention(s): Ambulation/Increased Activity;Repositioned Vital Signs Patient Currently in Pain: Yes Orientation Orientation Overall Orientation Status: Within Functional Limits Cognition Cognition Overall Cognitive Status: WFL Objective Bed mobility Supine to Sit: Moderate assistance Scooting: Stand by assistance Transfers Sit to Stand: Minimal Assistance Stand to sit: Stand by assistance Comment: from EOB, from BSC Ambulation Ambulation?: Yes WB Status: WBAT More Ambulation?: No Ambulation 1 Surface: level tile Device: Rolling Walker Assistance: Minimal assistance Quality of Gait: antalgic gait Gait Deviations: Slow [place];Decreased step length;Decreased step height Distance: 5 ft x 2 Comments: rest between Stairs/Curb Stairs?: No Balance Comments: Standing performed functional reaching, self care with stand by assist. Exercises Quad Sets: x5 Heelslides: x10 SSROM Gluteal Sets: x5 Knee Long Arc Quad: x10 AAROM Ankle Pumps: x20 Comments: breathing ex. G-Code OutComes Score AM-PAC Score AM-PAC Inpatient Mobility Raw Score : 10 (12/01/191129) AM-PAC Inpatient T-Scale Score : 32.29 (12/01/191129) Mobility Inpatient CMS 0-100% Score: 76.75 (12/01/191129) Mobility Inpatient CMS G-Code Modifier : CL (12/01/191129) Goals Short term goals Time Frame for Short term goals: 2 weeks Short term goal 1: bed mobility modified independent PROGRESSING SLOWLY Short term goal 2: transfers modified independent PROGRESSING SLOWLY Short term goal 3: ambulate 150 ft. with device, supervision PROGRESSING SLOWLY Short term goal 4: negotiate 2 steps, supervision NOT ADDRESSED Patient Goals Patient goals : To go home. Plan Plan Times per week: 5-7x/wk Plan weeks: 2 Current Treatment Recommendations: Strengthening, Transfer Training, Balance Training, Gait Training, Home Exercise Program, Functional Mobility Training, Stair training Safety Devices Type of devices: Gait belt, Call light within reach, Left in chair Restraints Initially in place: No Therapy Time Individual Concurrent Group Co-treatment Time In 0900 Time Out 0925 Minutes 25 Timed Code Treatment Minutes: 25 Minutes(FA, TP) Rin Navarro PT, GCS * Danni De Luna MD - 12/02/2019 6:40 AM EDT [facility] [address] [facility] [address] [place] [address] Dept: [phone] Loc: [phone] Orthopedic Progress Note Name: Beverly Agee Date:12/02/2019 Attending:Roula Coleman, DO Subjective Resting comfortably. Denied numbness or tingling. Has not attempted ambulation, stood next to the bed earlier today. Plan to go to [facility] today. Objective Vitals: Vitals: 12/01/19 1604 12/01/19 2119 12/02/19 0047 12/02/19 0538 BP: (!) 113/48 126/74 126/66 135/75 Pulse: 84 82 76 87 Resp: 16 18 18 18 Temp: 98.6 F (37 C) 95.9 F (35.5 C) 97.5 F (36.4 C) 97.2 F (36.2 C) TempSrc: Temporal Temporal Temporal Temporal SpO2: 94% 97% 97% 93% Weight: Height: Physical Exam: General: NAD, resting comfortably RLE Dressings: changed, incisions Clean/Dry/Intact SILT: Saphenous/Superficial Peroneal/Deep Peroneal/Tibial/Sural distributions Motor: +Dorsiflexion/Plantarflexion/Great toe extension Pulses: Palpable DP LABS: Recent Labs 11/30/19 0239 12/01/19 0038 12/02/19 0121 WBC 11.6* 11.0* 12.0* HGB 11.5* 10.0* 9.2* HCT 33.6* 30.1* 27.4* PLT 192 194 205 Recent Labs 11/30/19 0239 12/01/19 0038 12/02/19 0121 NA 132* 131* 137 K 3.3* 4.2 3.6 CL 104 102 105 CO2 21* 22 26 BUN 15 17 13 CREATININE 0.54 0.64 0.61 CALCIUM 8.4 8.6 8.8 No results for input(s): INR in the last 72 hours. No results for input(s): SEDRATE, CRP in the last 72 hours. No results for input(s): HCG in the last 72 hours. Assessment Beverly is a 74 y.o.female s/p R CMN on 11/29 Plan -WBAT -PT/OT recommending IP rehab -up with assistance -dvt proph per primary -fx 2wks with milka or telemedicine if in rehab. xrays obtained at rehab -24hrs abx -Ice -Pain control/medical management per primary service -OK for d/c from ortho standpoint -Orthopaedics to sign off, please contact with questions or concerns Danni De Luna MD Orthopaedic Surgery, PGY-1 [phone] * Dom Govea, OT - 12/01/2019 12:19 PM EDT Occupational Therapy Occupational Therapy Initial Assessment Date: 12/01/2019 Patient Name: Beverly Agee : 1945 Date of Service: 12/01/2019 Discharge Recommendations: IP Rehab Assessment Performance deficits / Impairments: Decreased functional mobility ;Decreased ADL status;Decreased strength;Decreased safe awareness;Decreased endurance;Decreased balance;Decreased high-level IADLs Assessment: 74 y.o. female s/p R CMN for R IT fx, pt is WBAT. Lives alone with her dog, reports shehas local family who can assist PRN. Pt was indep with ADL [employer] and was not using device for mob. Oneval pt mod A for bed mob, mod A to stand from EOB and min A to pivot from EOB to chair with difficulty advancing the RLE using therapist for support. Pt max A LBD and would benefit from AE training.At this time will recommend IP rehab placement. Prognosis: Good Decision Making: Low Complexity OT Education: OT Role;Transfer Training;Plan of Care;ADL Adaptive Strategies REQUIRES OT FOLLOW UP: Yes Safety Devices Safety Devices in place: Yes Type of devices: Call light within reach;Patient at risk for falls;Left in chair Patient Diagnosis(es): The primary encounter diagnosis was Hyperglycemia. Diagnoses of Generalized weakness, Urinary tract infection without hematuria, site unspecified, Fall, initial encounter, and Closed displaced intertrochanteric fracture of right femur, initial encounter (HCC) were also pertinent to this visit. has a past medical history of Arrhythmia, Arthritis, Atrial fibrillation (HCC), Breast CA (HCC), Cancer (HCC), Cerebral artery occlusion with cerebral infarction (HCC), Depression, History of blood transfusion, Hyperlipidemia, Hypertension, and Type II or unspecified type diabetes mellitus without mention of complication, not stated as uncontrolled. has a past surgical history that includes Breast lumpectomy (Left, 2012); Cholecystectomy; Cesareansection; Hysterectomy; joint replacement; Breast lumpectomy (Left); Cataract removal with implant (Bilateral, 10/2015, 12/2015 ); Hysterectomy, total abdominal; and Femur fracture surgery (Right, 11/30/2019). Restrictions Restrictions/Precautions Restrictions/Precautions: Fall Risk, Weight Bearing Lower Extremity Weight Bearing Restrictions Right Lower Extremity Weight Bearing: Weight Bearing As Tolerated Left Lower Extremity Weight Bearing: Weight Bearing As Tolerated Subjective General Chart Reviewed: Yes Patient assessed for rehabilitation services?: Yes Family / Caregiver Present: No Social/Functional History Social/Functional History Lives With: Alone Type of Home: House Home Layout: One level Home Access: Stairs to enter without rails Entrance Stairs - Number of Steps: 2 Bathroom Shower/Tub: Tub/Shower unit Bathroom Toilet: Standard Bathroom Equipment: Shower chair Bathroom Accessibility: Accessible Home Equipment: Rolling walker, Cane Receives Help From: Family ADL Assistance: Independent Homemaking Assistance: Independent Homemaking Responsibilities: Yes Ambulation Assistance: Independent Transfer Assistance: Independent Active Optomechanical Engineer: Yes Mode of Transportation: Car Education: (NA) Occupation: Retired Type of occupation: (NA) Leisure & Hobbies: (NA) IADL Comments: (NA) Additional Comments: ambulates without device, Objective Orientation Overall Orientation Status: Within Normal Limits Observation/Palpation Posture: Fair Observation: dressing on right hip area, noted drainage on the gown. Balance Sitting Balance: Supervision Standing Balance: Moderate assistance ADL LE Dressing: Maximum assistance Tone RUE RUE Tone: Normotonic Tone LUE LUE Tone: Normotonic Bed mobility Supine to Sit: Moderate assistance Transfers Sit to stand: Moderate assistance Stand to sit: Minimal assistance Cognition Overall Cognitive Status: WFL Sensation Overall Sensation Status: WNL LUE AROM (degrees) LUE AROM : WFL RUE AROM (degrees) RUE AROM : WFL Plan Plan Times per week: 5-7 Plan weeks: 2 Current Treatment Recommendations: Strengthening, Balance Training, Functional Mobility Training, Endurance Training, Gait Training, Pain Management, Safety Education & Training, Equipment Evaluation, Education, & procurement, Patient/Caregiver Education & Training, Self-Care / ADL, Home Management Training G-Code OutComes Score AM-PAC Score AM-PAC Inpatient Daily Activity Raw Score: 18 (12/01/19 1213) AM-PAC Inpatient ADL T-Scale Score : 38.66 (12/01/19 1213) ADL Inpatient CMS 0-100% Score: 46.65 (12/01/19 1213) ADL Inpatient [facility] G-Code Modifier : CK (12/01/19 1213) Goals Short term goals Time Frame for Short term goals: 2 weeks Short term goal 1: LBD with AE supervision Short term goal 2: toileting with GB SBA Short term goal 3: grooming at sink in FWW SBA Short term goal 4: FWW safety no cues Therapy Time Individual Concurrent Group Co-treatment Time In 1022 Time Out 1040 Minutes 18 Dom Govea OT Goals and/or treatment plan was established in collaboration with patient/family/other representatives. Patient's Occupational Therapy Plan of Care supervision is transferred to [facility] Occupational Therapist. * Rin Navarro, PT - 12/01/2019 11:33 AM EDT Physical Therapy Facility/Department: [facility] Initial Assessment NAME: Beverly Agee : 1945 Date of Service: 12/01/2019 Discharge Recommendations: IP Rehab PT Equipment Recommendations Other: tbd Assessment Body structures, Functions, Activity limitations: Decreased functional mobility ;Decreased balance;Decreased ADL status;Decreased endurance;Increased pain;Decreased strength Assessment: Pt. present with impaired mobility. Noted generalized weakness and decreased activity tolerance. Pt unable to ambulate functional distance at this time. C/o pain on right hip limiting mobility. With current level of function, pt unsafe to return home. Recommend Rehab at discharge, fair potential to tolerate 15 hours of therapy per week. Treatment Diagnosis: difficulty walking Prognosis: Fair Decision Making: Low Complexity PT Education: Goals;PT Role;Plan of Care REQUIRES PT FOLLOW UP: Yes Activity Tolerance Activity Tolerance: Patient limited by pain;Patient limited by fatigue Patient Diagnosis(es): The primary encounter diagnosis was Hyperglycemia. Diagnoses of Generalized weakness, Urinary tract infection without hematuria, site unspecified, Fall, initial encounter, and Closed displaced intertrochanteric fracture of right femur, initial encounter (HCC) were also pertinent to this visit. has a past medical history of Arrhythmia, Arthritis, Atrial fibrillation (HCC), Breast CA (HCC), Cancer (HCC), Cerebral artery occlusion with cerebral infarction (HCC), Depression, History of blood transfusion, Hyperlipidemia, Hypertension, and Type II or unspecified type diabetes mellitus without mention of complication, not stated as uncontrolled. has a past surgical history that includes Breast lumpectomy (Left, 2012); Cholecystectomy; Cesareansection; Hysterectomy; joint replacement; Breast lumpectomy (Left); Cataract removal with implant (Bilateral, 10/2015, 12/2015 ); Hysterectomy, total abdominal; and Femur fracture surgery (Right, 11/30/2019). Restrictions Restrictions/Precautions Restrictions/Precautions: Fall Risk, Weight Bearing Lower Extremity Weight Bearing Restrictions Right Lower Extremity Weight Bearing: Weight Bearing As Tolerated Left Lower Extremity Weight Bearing: Weight Bearing As Tolerated Vision/Hearing Vision: Impaired Vision Exceptions: Wears glasses for reading Hearing: Within functional limits Subjective General Chart Reviewed: Yes Patient assessed for rehabilitation services?: Yes Additional Pertinent Hx: bilat. TKA Family / Caregiver Present: No Diagnosis: Right hip fracture Follows Commands: Within Functional Limits General Comment Comments: Dx: right IT fracture, s/p CMN Subjective Subjective: Pt. sitting on chair, agree with PT treatment. Pain Screening Patient Currently in Pain: Yes Pain Assessment Pain Assessment: 0-10 Pain Level: 10(2 at rest) Pain Type: Acute pain;Surgical pain Pain Location: Hip Pain Orientation: Right Functional Pain Assessment: Prevents or interferes with all active and some passive activities Non-Pharmaceutical Pain Intervention(s): Ambulation/Increased Activity;Repositioned Vital Signs Patient Currently in Pain: Yes Orientation Orientation Overall Orientation Status: Within Functional Limits Social/Functional History Social/Functional History Lives With: Alone Type of Home: House Home Layout: One level Home Access: Stairs to enter without rails Entrance Stairs - Number of Steps: 2 Bathroom Shower/Tub: Tub/Shower unit Bathroom Toilet: Standard Bathroom Equipment: Shower chair Bathroom Accessibility: Accessible Home Equipment: Rolling walker, Cane Receives Help From: Family ADL Assistance: Independent Homemaking Assistance: Independent Homemaking Responsibilities: Yes Ambulation Assistance: Independent Transfer Assistance: Independent Active Optomechanical Engineer: Yes Mode of Transportation: Car Education: (NA) Occupation: Retired Type of occupation: (NA) Leisure & Hobbies: (NA) IADL Comments: (NA) Additional Comments: ambulates without device, Cognition Cognition Overall Cognitive Status: WFL Objective Observation/Palpation Posture: Fair Observation: dressing on right hip area, noted drainage on the gown. PROM RLE (degrees) RLE PROM: WFL AROM RLE (degrees) RLE General AROM: hip flex 15 during swing phase on gait. AROM LLE (degrees) LLE AROM : WFL Strength RLE Comment: hip 2/5, knee extension 3-/5 Strength LLE Strength LLE: WFL Tone RLE RLE Tone: Normotonic Tone LLE LLE Tone: Normotonic Motor Control Gross Motor?: WFL Sensation Overall Sensation Status: WNL Bed mobility Comment: NT-pt. sitting on chair. Transfers Sit to Stand: Minimal Assistance Stand to sit: Stand by assistance Ambulation Ambulation?: Yes WB Status: WBAT More Ambulation?: No Ambulation 1 Surface: level tile Device: Rolling Walker Assistance: Minimal assistance Quality of Gait: antalgic gait Gait Deviations: Slow [place];Decreased step length;Decreased step height Distance: 4 ft Stairs/Curb Stairs?: No Balance Posture: Fair Sitting - Static: Good Sitting - Dynamic: Good;- Standing - Static: Fair Standing - Dynamic: Fair;- Plan Plan Times per week: 5-7x/wk Plan weeks: 2 Current Treatment Recommendations: Strengthening, Transfer Training, Balance Training, Gait Training, Home Exercise Program, Functional Mobility Training, Stair training Safety Devices Type of devices: Gait belt, Call light within reach, Left in chair(No chair alarm upon entry. ) Restraints Initially in place: No G-Code OutComes Score -[facility] Score AM-[facility] Inpatient Mobility Raw Score : 10 (12/01/191129) [facility] Inpatient T-Scale Score : 32.29 (12/01/191129) Mobility Inpatient [facility] 0-100% Score: 76.75 (12/01/191129) Mobility Inpatient [facility] G-Code Modifier : CL (12/01/191129) Goals Short term goals Time Frame for Short term goals: 2 weeks Short term goal 1: bed mobility modified independent Short term goal 2: transfers modified independent Short term goal 3: ambulate 150 ft. with device, supervision Short term goal 4: negotiate 2 steps, supervision Patient Goals Patient goals : To go home. Patient s Physical Therapy Plan of Care supervision is transferred to [facility] Rehab Department Physical Therapist. Therapy Time Individual Concurrent Group Co-treatment Time In 1105 Time Out 1120 Minutes 15 Rin Navarro PT, GCS * Roula Coleman, DO - 12/01/2019 9:44 AM EDT [facility] Progress Note Beverly Agee : 1945(74 y.o.) Date: 11/30/19 Subjective: Fall Pertinent negatives include no fever. The patient complains of R hip pain /R intertroch femur fracture The patient feels their symptoms are improving Pt had R intramedullary Nailing on 11/30/19 Feeling better. Pain is controlled Feels she can have BM soon Motivated to work with PT and be discharged. Scheduled Meds: rivaroxaban 20 mg Oral Daily sodium chloride flush 3 mL Intravenous Q8H vitamin D 5,000 Units Oral Daily fenofibrate 54 mg Oral Daily insulin lispro 10 Units Subcutaneous TID WC insulin glargine 40 Units Subcutaneous Nightly [Held by provider] losartan 25 mg Oral Daily insulin lispro 0-12 Units Subcutaneous TID WC insulin lispro 0-6 Units Subcutaneous Nightly mirtazapine 15 mg Oral Nightly pravastatin 40 mg Oral Daily venlafaxine 150 mg Oral Daily vitamin B-12 500 mcg Oral Daily sodium chloride flush 10 mL Intravenous 2 times per day cefTRIAXone (ROCEPHIN) IV 1 g Intravenous Q24H magnesium oxide 400 mg Oral BID Continuous Infusions: sodium chloride 50 mL/hr at 11/30/19 1600 dextrose 100 mL/hr (11/30/19 0840) PRN Meds:tiZANidine, sodium chloride flush, acetaminophen OR acetaminophen, polyethylene glycol, promethazine OR ondansetron, glucose, dextrose, glucagon (rDNA), dextrose, metoprolol, hydrALAZINE, oxyCODONE, oxyCODONE, morphine OR morphine Review of Systems Constitutional: Negative for chills and fever. Respiratory: Negative for shortness of breath. Cardiovascular: Negative for chest pain. Genitourinary: Negative for dysuria. Neurological: Negative for dizziness. Interval Pertinent History: Social History Tobacco Use Smoking status: Heavy Tobacco Smoker Packs/day: 0.50 Years: 45.00 Pack years: 22.50 Types: Cigarettes Smokeless tobacco: Never Used Tobacco comment: 15 cigarettes per day Substance Use Topics Alcohol use: Yes Alcohol/week: 0.0 standard drinks Comment: rarely Objective: Patient Vitals for the past 24 hrs: BP Temp Temp src Pulse Resp SpO2 12/01/19 0915 (!) 117/55 99 F (37.2 C) Temporal 87 15 95 % 12/01/19 0603 (!) 121/57 98.1 F (36.7 C) Temporal 85 16 95 % 12/01/19 0059 (!) 120/53 97.4 F (36.3 C) Temporal 81 16 97 % 11/30/19 2103 121/61 98 F (36.7 C) Temporal 104 20 95 % 11/30/19 1806 (!) 138/59 97.2 F (36.2 C) Temporal 92 16 92 % 11/30/19 1302 114/66 97.4 F (36.3 C) Temporal 89 16 96 % 11/30/19 1230 124/61 97.8 F (36.6 C) Temporal 88 16 97 % 11/30/19 1215 121/85 88 16 97 % 11/30/19 1200 127/60 99 16 97 % 11/30/19 1145 (!) 141/66 100 16 100 % 11/30/19 1130 (!) 146/74 108 16 100 % 11/30/19 1118 (!) 144/80 98.7 F (37.1 C) Temporal 90 16 100 % Average, Min, and Max for last 24 hours Vitals: TEMPERATURE: Temp Av F (36.7 C) Min: 97.2 F (36.2 C) Max: 99 F (37.2 C) RESPIRATIONS RANGE: Resp Av.3 Min: 15 Max: 20 PULSE RANGE: Pulse Av.6 Min: 81 Max: 108 BLOOD PRESSURE RANGE: Systolic (24hrs), Av , Min:114 , Max:146 ; Diastolic (24hrs), Av, Min:53, Max:85 PULSE OXIMETRY RANGE: SpO2 Av.8 % Min: 92 % Max: 100 % I/O last 3 completed shifts: In: 4225 [P.O.:1440; I.V.:2785] Out: 2240 [Urine:2140; Blood:100] Physical Exam Vitals signs and nursing note reviewed. Constitutional: General: She is not in acute distress. Appearance: She is well-developed. She is obese. She is not diaphoretic. HENT: Head: Normocephalic and atraumatic. Eyes: Conjunctiva/sclera: Conjunctivae normal. Neck: Vascular: No JVD. Trachea: No tracheal deviation. Cardiovascular: Rate and Rhythm: Normal rate and regular rhythm. Heart sounds: Normal heart sounds. Pulmonary: Effort: Pulmonary effort is normal. No respiratory distress. Breath sounds: Normal breath sounds. Abdominal: General: Bowel sounds are normal. Palpations: Abdomen is soft. Musculoskeletal: General: Swelling ( improved) present. Comments: R hip with surgical wound dressing clean/dry/intact No large bruising Skin: General: Skin is warm and dry. Neurological: Mental Status: She is alert and oriented to person, place, and time. Lab Results Component Value Date WBC 11.0 (H) 12/01/2019 HGB 10.0 (L) 12/01/2019 HCT 30.1 (L) 12/01/2019 MCV 89.3 12/01/2019 PLT 194 12/01/2019 @BRIEFLAB(NA,K,CL,CO2,BUN,CREATININE,GLUCOSE,CALCIUM)@ Lab Results Component Value Date LABA1C 12.2 (H) 11/29/2019 Additional results of thelast 24 hours have been reviewed. Assessment and Plan: Principal Problem: Hip fracture requiring operative repair, right, closed, initial encounter (HCC) Active Problems: Essential hypertension Hyperlipidemia Depression with anxiety Psychophysiological insomnia Atrial fibrillation ([facility]) H/O: CVA (cerebrovascular accident) Hypomagnesemia Acute cystitis Leukocytosis Type 2 diabetes mellitus with hyperglycemia, with long-term current use of insulin (HCC) Falls Unsteady gait Memory problem Tobacco dependence Class 1 obesity due to excess calories with serious comorbidity and body mass index (BMI) of 33.0 to 33.9 in adult Resolved Problems: * No resolved hospital problems. * Hip fracture requiring operative repair, right, closed - s/p R intramedullary nailing on 11/30/19 - pain control - WBAT, 24 hr abx, repeat xrays in rehab and f/u with ortho in 2 wks - appreciate ortho input Elevated CK/ Falls/Unsteady gait - pt/ot eval. Will need placement - CK is elevated due to being down. Improved - creat ok -DC IVF and monitor - hold losartan for now - BP ok Essential hypertension - on losartan at home - hold losartan as BP has been controlled.. may need to be discontinued to avoid hypotension as this can contribute to falls - PRN hydralazine and lopressor Hyperlipidemia - cont statin and fenofibrate Depression with anxiety/Psychophysiological - continue Effexor 150 mg daily. Decreased Remeron 30--> 15 mg nightly for optimal benefit for insomnia Atrial fibrillation (HCC)/history of stroke - resumed xeralto Hypomagnesemia/hypokalemia - replaced - monitor E.coli UTI - e.coli is fna sensitive. - received Ceftriaxone x 3 ( also rec'd perioperative cefazolin ) - stop Abx Leukocytosis - likely reactive and UTI - improved Uncontrolled Type 2 diabetes mellitus with hyperglycemia, with long-term current use of insulin (HCC) - forgets for take insulin - HgA1C = 12.2 -at home on humalog 10 TID, lantus 40 units nightly , glipizide 10 mg BID - here on humalog 10 tid + lantus 40 , glipizide held - BGT [id number] - resume glipizide and monitor Memory problem - ? After stroke - forgets to take meds per chart review - consider outpatient geriatrics eval Tobacco dependence - cessation education Obesity BMI 33.4 - healthy diet encouraged DVT Prophylaxis: xarelto Disposition: PT eval. DC planning. Possibly to rehab I spent over 51% of total time providing counseling or in coordination of care: 25 minutes discussed with nurse, TCC. I personally examined the patient and I personally reviewed chart, data,labs radiologyreports 7AM-5PM please page: 5PM-7AM please page: [facility] IM * Lori Aguilar - 12/01/2019 9:36 AM EDT .Nutrition rescreen completed. Chart reviewed. Patient to be monitored and followed by the diet microbiology quality control technician.RIVER Crabtree * Khadar Chua MD - 12/01/2019 7:10 AM EDT [facility] TELEMETRY [address] [place], [place] [id number] Dept: [phone] Loc: [phone] Orthopedic Progress Note Name: Beverly Agee Date:12/01/2019 Attending:Roula Coleman, DO Subjective Resting comfortably. Denied numbness or tingling. Has not attempted ambulation yet. Objective Vitals: Vitals: 11/30/19 1806 11/30/19 2103 12/01/19 0059 12/01/19 0603 BP: (!) 138/59 121/61 (!) 120/53 (!) 121/57 Pulse: 92 104 81 85 Resp: 16 20 16 16 Temp: 97.2 F (36.2 C) 98 F (36.7 C) 97.4 F (36.3 C) 98.1 F (36.7 C) TempSrc: Temporal Temporal Temporal Temporal SpO2: 92% 95% 97% 95% Weight: Height: Physical Exam: General: NAD, resting comfortably RLE Dressings: Clean/Dry/Intact SILT: Saphenous/Superficial Peroneal/Deep Peroneal/Tibial/Sural distributions Motor: +Dorsiflexion/Plantarflexion/Great toe extension Pulses: Palpable DP LABS: Recent Labs 11/29/19 0440 11/30/19 0239 12/01/19 0038 WBC 13.8* 11.6* 11.0* HGB 14.2 11.5* 10.0* HCT 42.0 33.6* 30.1* PLT 243 192 194 Recent Labs 11/29/19 0440 11/30/19 0239 12/01/19 0038 NA 134* 132* 131* K 4.0 3.3* 4.2 CL 99 104 102 CO2 24 21* 22 BUN 21* 15 17 CREATININE 0.69 0.54 0.64 CALCIUM 9.6 8.4 8.6 Recent Labs 11/29/19 0440 INR 1.0 No results for input(s): SEDRATE, CRP in the last 72 hours. No results for input(s): HCG in the last 72 hours. Assessment Beverly is a 74 y.o.female POD#1 s/p R CMN for R IT fx Plan -WBAT -PT/OT -up with assistance -dvt proph per primary -fx 2wks with milka or telemedicine if in rehab. xrays obtained at rehab -24hrs abx -Ice -Pain control/medical management per primary service Khadar Chua PGY-2 Orthopaedic Surgery 12/01/2019 7:11 AM [phone] * Roula Coleman, DO - 11/30/2019 2:30 PM EDT [facility] Progress Note Beverly Agee : 1945(74 y.o.) Date: 11/30/19 Subjective: Fall Pertinent negatives include no fever. The patient complains o R hip pain /R intertroch femur fracture The patient feels their symptoms are improving Pt had R intramedullary Nailing this am. Tolerated well and is feeling much better. She is back in her room and just had her jello. No flatus yet She is looking forward to going to rehab zoe Scheduled Meds: xeroform petrolat gauze 1"X8" ceFAZolin 1.5 g Intravenous Q8H magnesium sulfate 2 g Intravenous Once potassium chloride 40 mEq Oral Once sodium chloride flush 3 mL Intravenous Q8H vitamin D 5,000 Units Oral Daily fenofibrate 54 mg Oral Daily insulin lispro 10 Units Subcutaneous TID WC insulin glargine 40 Units Subcutaneous Nightly [Held by provider] losartan 25 mg Oral Daily insulin lispro 0-12 Units Subcutaneous TID WC insulin lispro 0-6 Units Subcutaneous Nightly mirtazapine 15 mg Oral Nightly pravastatin 40 mg Oral Daily venlafaxine 150 mg Oral Daily vitamin B-12 500 mcg Oral Daily sodium chloride flush 10 mL Intravenous 2 times per day cefTRIAXone (ROCEPHIN) IV 1 g Intravenous Q24H magnesium oxide 400 mg Oral BID Continuous Infusions: sodium chloride 125 mL/hr at 11/30/19 0841 sodium chloride 125 mL/hr at 11/29/192014 dextrose 100 mL/hr (11/30/19 0840) PRN Meds:tiZANidine, sodium chloride flush, acetaminophen OR acetaminophen, polyethylene glycol, promethazine OR ondansetron, glucose, dextrose, glucagon (rDNA), dextrose, metoprolol, hydrALAZINE, oxyCODONE, oxyCODONE, morphine OR morphine Review of Systems Constitutional: Negative for chills and fever. Respiratory: Negative for shortness of breath. Cardiovascular: Negative for chest pain. Genitourinary: Negative for dysuria. Neurological: Negative for dizziness. Interval Pertinent History: Social History Tobacco Use Smoking status: Heavy Tobacco Smoker Packs/day: 0.50 Years: 45.00 Pack years: 22.50 Types: Cigarettes Smokeless tobacco: Never Used Tobacco comment: 15 cigarettes per day Substance Use Topics Alcohol use: Yes Alcohol/week: 0.0 standard drinks Comment: rarely Objective: Patient Vitals for the past 24 hrs: BP Temp Temp src Pulse Resp SpO2 11/30/19 1302 114/66 97.4 F (36.3 C) Temporal 89 16 96 % 11/30/19 1230 124/61 97.8 F (36.6 C) Temporal 88 16 97 % 11/30/19 1215 121/85 88 16 97 % 11/30/19 1200 127/60 99 16 97 % 11/30/19 1145 (!) 141/66 100 16 100 % 11/30/19 1130 (!) 146/74 108 16 100 % 11/30/19 1118 (!) 144/80 98.7 F (37.1 C) Temporal 90 16 100 % 11/30/19 0510 139/70 98.4 F (36.9 C) Temporal 88 18 91 % 11/30/19 0029 120/64 97.3 F (36.3 C) Temporal 82 18 92 % 11/29/19 2108 125/75 97.7 F (36.5 C) Temporal 83 18 94 % 11/29/19 1826 126/72 98.4 F (36.9 C) Temporal 83 18 95 % Average, Min, and Max for last 24 hours Vitals: TEMPERATURE: Temp Av F (36.7 C) Min: 97.3 F (36.3 C) Max: 98.7 F (37.1 C) RESPIRATIONS RANGE: Resp Av.7 Min: 16 Max: 18 PULSE RANGE: Pulse Av.7 Min: 82 Max: 108 BLOOD PRESSURE RANGE: Systolic (24hrs), Av , Min:114 , Max:146 ; Diastolic (24hrs), Av, Min:60, Max:85 PULSE OXIMETRY RANGE: SpO2 Av.3 % Min: 91 % Max: 100 % I/O last 3 completed shifts: In: 3002 [I.V.:2902; IV Piggyback:100] Out: 1500 [Urine:1500] Physical Exam Vitals signs and nursing note reviewed. Constitutional: Appearance: She is well-developed. She is obese. Comments: Better appearing compared to yesterday HENT: Head: Normocephalic and atraumatic. Eyes: Conjunctiva/sclera: Conjunctivae normal. Neck: Vascular: No JVD. Trachea: No tracheal deviation. Cardiovascular: Rate and Rhythm: Normal rate and regular rhythm. Heart sounds: Normal heart sounds. Pulmonary: Effort: Pulmonary effort is normal. No respiratory distress. Breath sounds: Normal breath sounds. Abdominal: General: Bowel sounds are normal. Palpations: Abdomen is soft. Musculoskeletal: General: Swelling present. Skin: General: Skin is warm and dry. Neurological: Mental Status: She is alert and oriented to person, place, and time. Lab Results Component Value Date WBC 11.6 (H) 11/30/2019 HGB 11.5 (L) 11/30/2019 HCT 33.6 (L) 11/30/2019 MCV 88.4 11/30/2019 PLT 192 11/30/2019 @BRIEFLAB(NA,K,CL,CO2,BUN,CREATININE,GLUCOSE,CALCIUM)@ Lab Results Component Value Date LABA1C 12.2 (H) 11/29/2019 Additional results of thelast 24 hours have been reviewed. Assessment and Plan: Principal Problem: Hip fracture requiring operative repair, right, closed, initial encounter ([facility]) Active Problems: Essential hypertension Hyperlipidemia Depression with anxiety Psychophysiological insomnia Atrial fibrillation ([facility]) H/O: CVA (cerebrovascular accident) Hypomagnesemia Acute cystitis Leukocytosis Type 2 diabetes mellitus with hyperglycemia, with long-term current use of insulin ([facility]) Falls Unsteady gait Memory problem Tobacco dependence Class 1 obesity due to excess calories with serious comorbidity and body mass index (BMI) of 33.0 to 33.9 in adult Resolved Problems: * No resolved hospital problems. * Hip fracture requiring operative repair, right, closed - s/p R intramedullary nailing - pain control - WBAT, 24 hr abx, repeat xrays in rehab and f/u with ortho in 2 wks - appreciate ortho input Elevated CK/ Falls/Unsteady gait - pt/ot eval. Will need placement - CK is elevated due to being down. Slightly better today 283--> 281 - creat ok -decrease IVF and monitor - hold losartan for now - BP ok Essential hypertension - on losartan at home - hold losartan with elevated CK and lower BP - likely resume tomorrow - PRN hydralazine and lopressor Hyperlipidemia - cont statin and fenofibrate Depression with anxiety/Psychophysiological - continue Effexor 150 mg daily. Decreased Remeron 30--> 15 mg nightly for optimal benefit for insomnia Atrial fibrillation (HCC)/history of stroke - resume xeralto when ok after surgery Hypomagnesemia/hypokalemia - continue PO Mg and will give 2 mg IV again - replace K PO - monitor Acute cystitis - continue empiric Ceftriaxone pending culture Leukocytosis - likely reactive and UTI Uncontrolled Type 2 diabetes mellitus with hyperglycemia, with long-term current use of insulin (HCC) - forgets for take insulin - HgA1C = 12.2 - continue home insulin + SSI - BGT [phone] - hold oral hypoglycemics Memory problem - ? After stroke - forgets to take meds per chart review - consider outpatient geriatrics eval Tobacco dependence - cessation education Obesity BMI 33.4 - healthy diet encouraged DVT Prophylaxis: resume xarelto if ok with surgery Disposition: await peoplesoft consultant recommendations, await clinical improvement and awaitplacement I spent over 51% of total time providing counseling or in coordination of care: 25 minutes discussed with nurse, I personally examined the patient and I personally reviewed chart, data, labsradiologyreports 7AM-5PM please page: 5PM-7AM please page: [place] [facility] * Danni De Luna MD - 11/30/2019 6:57 AM EDT [facility] TELEMET[facility] [address] [facility] [address] Dept: [phone] Loc: [phone] Orthopedic Progress Note Name: Beverly Agee Date:11/30/2019 Attending:Roula Coleman, Subjective Resting comfortably. Reports R hip pain with movement. Relatively controlled with medications. Anticipating surgery today. Objective Vitals: Vitals: 11/29/19 1826 11/29/19 2108 11/30/19 0029 11/30/19 0510 BP: 126/72 125/75 120/64 139/70 Pulse: 83 83 82 88 Resp: 18 18 18 18 Temp: 98.4 F (36.9 C) 97.7 F (36.5 C) 97.3 F (36.3 C) 98.4 F (36.9 C) TempSrc: Temporal Temporal Temporal Temporal SpO2: 95% 94% 92% 91% Weight: Height: Physical Exam: General: NAD, resting comfortably RLE Skin: Clean/Dry/Intact SILT: Saphenous/Superficial Peroneal/Deep Peroneal/Tibial/Sural distributions Motor: +Dorsiflexion/Plantarflexion/Great toe extension Pulses: Palpable DP LABS: Recent Labs 11/29/19 0440 11/30/19 0239 WBC 13.8* 11.6* HGB 14.2 11.5* HCT 42.0 33.6* PLT 243 192 Recent Labs 11/29/19 0440 NA 134* K 4.0 CL 99 CO2 24 BUN 21* CREATININE 0.69 CALCIUM 9.6 Recent Labs 11/29/19 0440 INR 1.0 No results for input(s): SEDRATE, CRP in the last 72 hours. No results for input(s): HCG in the last 72 hours. Assessment Beverly is a 74 y.o.female R IT fx Plan -Plan for OR today 11/29 for R CMN -NPO now -Consented, in the chart -Cleared per primary team -Bedrest, NWB RLE -Monge -Ice -Pain control/medical management per primary service * Victor M Fuentes, PT - 11/29/2019 9:15 AM EDT Physical Therapy Pt admitted with R intertrochanteric Fx. Plan is for surgery 11/29. Anticipate PT to initiate post-op. Will follow. * Khadar Chua MD - 11/29/2019 8:10 AM EDT D/w Dr. Saenz and Dr. Keane. Dr. Keane will take to OR tomorrow for CMN in AM. Okay for diet today. NPO at midnight Khadar Chua PGY-2 Orthopaedic Surgery 11/29/2019 8:11 AM [phone] documented in this encounter* Noa Weiner OTA - 01/23/2020 11:47 AM EDT Occupational Therapy Facility/Department: [facility] SUR[facility] Daily Treatment Note NAME: Beverly Agee : 1945 Date of Service: 01/23/2020 Discharge Recommendations: Subacute/[facility] Facility Assessment Assessment: Pt very pleasant and cooperative for therapy. Needs min assist for transfers and LB self care. Limited standing and activity tolerance due to pain and fatigue. Pt educated on hip precautions and pt recalled 2/3. Maintains 50% PWB at the FWW. Would benefit from continued OT to increase strength and endurance needed for ADL's and transfers. REQUIRES OT FOLLOW UP: Yes Safety Devices Safety Devices in place: Yes Type of devices: All fall risk precautions in place;Call light within reach;Gait belt;Patient at risk for falls;Left in chair;Chair alarm in place;Nurse notified Patient Diagnosis(es): The primary encounter diagnosis was Hip fracture requiring operative repair,right, closed, initial encounter ([facility]). A diagnosis of Closed displaced intertrochanteric fracture of right femur, initial encounter ([facility]) was also pertinent to this visit. has a past medical history of Arrhythmia, Arthritis, Atrial fibrillation (HCC), Breast CA (HCC), Cancer (HCC), Cerebral artery occlusion with cerebral infarction (HCC), Depression, History of blood transfusion, Hyperlipidemia, Hypertension, and Type II or unspecified type diabetes mellitus without mention of complication, not stated as uncontrolled. has a past surgical history that includes Breast lumpectomy (Left, 2012); Cholecystectomy; Cesareansection; joint replacement (Bilateral); Breast lumpectomy (Left); Cataract removal with implant (Bilateral, 10/2015, 12/2015 ); Hysterectomy, total abdominal; Femur fracture surgery (Right, 11/30/2019); Dilation and curettage of uterus; Rotator cuff repair (Right); and Hip Arthroplasty (Right, 01/21/2020). Restrictions Restrictions/Precautions Restrictions/Precautions: Weight Bearing, General Precautions, ROM Restrictions, Surgical Protocols, Fall Risk Required Braces or Orthoses?: No Lower Extremity Weight Bearing Restrictions Right Lower Extremity Weight Bearing: Partial Weight Bearing Partial Weight Bearing Percentage Or Pounds: 50% Position Activity Restriction Hip Precautions: No hip flexion > 90 degrees, No hip internal rotation, No hip external rotation, Posterior hip precautions(no crossing legs, no SLR) Other position/activity restrictions: s/p conversion of previous sx to R RIC - posterior approach 01/21/2020. Subjective General Chart Reviewed: Yes Family / Caregiver Present: No Subjective Subjective: Sitting up in the chair. Pt pleasant and cooperative. General Comment Comments: Per RN, ok for pt to participate in OT. Pain Assessment Pain Level: 7 Pain Type: Surgical pain Pain Location: Hip Pain Orientation: Right Vital Signs Patient Currently in Pain: Yes Objective ADL Grooming: Stand by assistance(Standing at the sink.) LE Dressing: Minimal assistance(Assist needed with socks. Pt reports not wearing socks at home. Pt donned her brief using a shark biologist with min assist for standing.) Toileting: Stand by assistance(After voiding, able for hygiene. ) Additional Comments: Pt fatigues in standing and needed to sit on the BSC while brushing her teeth.Pt limited by 7/10 pain and had just finished with PT. Poor activity tolerance. Balance Sitting Balance: Independent Standing Balance: Contact guard assistance(SBA initally then CGA/min assist as she progressed with pain) Standing Balance Time: 1-2 min, 2-3 times Activity: Grooming at the sink and pulling up her brief. Comment: No true LOB. Functional Mobility Functional - Mobility Device: Rolling Walker Activity: To/from bathroom Assist Level: Minimal assistance Functional Mobility Comments: Pt maintains 50% PWB. Occasional cues for walker safety when approaching the sink. Toilet Transfers Toilet - Technique: Ambulating Equipment Used: Standard bedside commode(BSC over the toilet. ) Toilet Transfer: Contact guard assistance Toilet Transfers Comments: Cues for hand placement. Bed mobility Comment: Up in chair. Transfers Sit to stand: Contact guard assistance Stand to sit: Minimal assistance Transfer Comments: Light min assist at end of therapy. Pt fatiguing and needed min assist for eccentric control. Plan Plan Times per week: 4 visits Times per day: Daily Current Treatment Recommendations: Balance Training, Functional Mobility Training, Endurance Training, Safety Education & Training, Patient/Caregiver Education & Training, Equipment Evaluation, Education, & procurement, Self-Care / ADL, Strengthening, Positioning Plan Comment: POC and goals were made in collaboration with the pt. Goals Short term goals Time Frame for Short term goals: 5 visits Short term goal 1: Pt will complete functional transfers and mobility with SBA. progressing Short term goal 2: Pt will complete LB ADLs with AE with SBA. progressing Short term goal 3: Pt will complete UB ADLs with mod I. proressing Short term goal 4: Pt will complete functional standing >3 minutes with SBA in order to increaseoccupational participation. progressing Short term goal 5: Pt will complete BUE strengthening exercises in order to increase strength required for functional transfers. NA Short term goal 6: Pt will maintain WB/ROM restrictions throughout all ADLs, functional transfers and mobility. progressing Therapy Time Individual Concurrent Group Co-treatment Time In 0925 Time Out 0950 Minutes 25 Timed Code Treatment Minutes: 24 Minutes(adl and ther act) ESTELITA Sanford * Jada Arango PTA - 01/23/2020 10:54 AM EDT Physical Therapy Facility/Department: [facility] 1E MED SURG Daily Treatment Note NAME: Beverly Agee : 1945 Date of Service: 01/23/2020 Discharge Recommendations: Subacute/[facility] Facility Assessment Assessment: Pt presents with increased functional mobility. Pt is min A x 1 for bed mobility due assist for trunk elevation. Pt is SBA for transfers and ambulation. Pt able to ambulate further today and able to maintain 50% WB. pt demosntrated good strength and ROM with exercises. Pt is expected tobenefit from continued therapy in order to increase overall functional independence. REQUIRES PT FOLLOW UP: Yes Activity Tolerance Activity Tolerance: Patient Tolerated treatment well Patient Diagnosis(es): The primary encounter diagnosis was Hip fracture requiring operative repair,right, closed, initial encounter ([facility]). A diagnosis of Closed displaced intertrochanteric fracture of right femur, initial encounter ([facility]) was also pertinent to this visit. has a past medical history of Arrhythmia, Arthritis, Atrial fibrillation (HCC), Breast CA (HCC), Cancer (HCC), Cerebral artery occlusion with cerebral infarction (HCC), Depression, History of blood transfusion, Hyperlipidemia, Hypertension, and Type II or unspecified type diabetes mellitus without mention of complication, not stated as uncontrolled. has a past surgical history that includes Breast lumpectomy (Left, 2012); Cholecystectomy; Cesareansection; joint replacement (Bilateral); Breast lumpectomy (Left); Cataract removal with implant (Bilateral, 10/2015, 12/2015 ); Hysterectomy, total abdominal; Femur fracture surgery (Right, 11/30/2019); Dilation and curettage of uterus; Rotator cuff repair (Right); and Hip Arthroplasty (Right, 01/21/2020). Restrictions Restrictions/Precautions Restrictions/Precautions: Weight Bearing, General Precautions, ROM Restrictions, Surgical Protocols, Fall Risk Required Braces or Orthoses?: No Lower Extremity Weight Bearing Restrictions Right Lower Extremity Weight Bearing: Partial Weight Bearing Partial Weight Bearing Percentage Or Pounds: 50% Position Activity Restriction Hip Precautions: No hip flexion > 90 degrees, No hip internal rotation, No hip external rotation, Posterior hip precautions(no crossing legs, no SLR) Other position/activity restrictions: s/p conversion of previous sx to R RIC - posterior approach 01/21/2020. Subjective General Chart Reviewed: Yes Family / Caregiver Present: No Subjective Subjective: Pt pleasant and agreeable to therapy. General Comment Comments: Per RN patient okay for therapy. Pain Screening Patient Currently in Pain: Yes(Pt stated some discomfort in hip but didnt rate. ) Vital Signs Patient Currently in Pain: Yes(Pt stated some discomfort in hip but didnt rate. ) Objective Bed mobility Supine to Sit: Minimal assistance Sit to Supine: Unable to assess(Pt sitting in chair post session. ) Scooting: Stand by assistance;Supervision Comment: Pt denied dizziness with position change. HOB elevated and no use of bed rails. Min A x 1 for trunk elevation. Pt able to complete within hip precautions. Transfers Sit to Stand: Stand by assistance(To FWW) Stand to sit: Stand by assistance Comment: Pt denied dizziness with position change. Pt able to demonstrate proper hand and foot placement with ascends and descends. Pt able to demonstrate 50% WB on R LE. Pt able to transfer from EOBand chair x 4. Ambulation Ambulation?: Yes WB Status: R LE 50% WB Ambulation 1 Surface: level tile Device: Rolling Walker Assistance: Stand by assistance Quality of Gait: Pt demonstrate a step to pattern with slight increase UE support on FWW, no unsteadiness or LOB, demonstrates ability to maintain 50% WB on R LE. Distance: 35ft x 1, 45ft x 1 Comments: Pt demonstrated increased ability to glide FWW and maintain 50% WB on R LE. Stairs/Curb Stairs?: No Exercises Quad Sets: 1 set of 10 reps R LE supine Heelslides: 1 set of 10 reps R LE supine Knee Long Arc Quad: 1 set of 10 reps R LE sitting Knee Short Arc Quad: 1 set of 10 reps R LE supine Ankle Pumps: 1 set of 10 reps B LE supine Comments: Pt able to demonstrate good stength and ROM. Other exercises Other exercises?: Yes Other exercises 1: Hip adduction: 1 set of 10 reps B LE sitting isometrically Goals Short term goals Time Frame for Short term goals: 6 visits Short term goal 1: Pt yulia be able to verbalize hip precautions to therapist accurately with out cues in order to demonstrate improved understanding. (not met) Short term goal 2: Pt will complete functional transfers with FWW and SBA in order to improve safety and prepare for ambulation. (met) Short term goal 3: Pt will ambulate 25 ft x 2 with FWW and SBA in order to improve safety with gait. (met) Short term goal 4: Pt will complete 2-3 sets / 10 reps LE exercises in order to improve strength and activity tolerance for mobility. (not met) Short term goal 5: Pt will maintain 50% WB on R LE 100% of time with mobility in order to improve safety and healing. (met) Patient Goals Patient goals : Pt states she wants to not fall anymore Plan Plan Times per week: 4 visits Times per day: Twice a day Current Treatment Recommendations: Strengthening, Balance Training, Functional Mobility Training, Transfer Training, Endurance Training, Gait Training, Neuromuscular Re-education, Pain Management, Stair training, Home Exercise Program, Safety Education & Training, Patient/Caregiver Education & Training, Equipment Evaluation, Education, & procurement Plan Comment: Goals and/or treatment plan were established in collaboration with patient. Safety Devices Type of devices: All fall risk precautions in place, Call light within reach, Chair alarm in place,Gait belt, Patient at risk for falls, Nurse notified, Left in chair Therapy Time Individual Concurrent Group Co-treatment Time In 0846 Time Out 0916 Minutes 30 Timed Code Treatment Minutes: 23 Minutes(1 ther ex, 1 gait ) Jada Arango PTA * Khadar Chua MD - 01/23/2020 6:39 AM EDT [facility] 1E MED SURG [address] [facility] [id number] Dept: [phone] Loc: [phone] Adult Hip and Knee Reconstruction Service Patient Name: Beverly Agee Date of : 1945 Date: 01/23/20 Assessment: 74 yo F s/p RIGHT RIC on 01/21/2020 doing well Plan: 50% weightbearing PT/OT: SNF Strict anterior posterior hip precautions dvt proph: Okay to resume home anticoagulation Continue antibiotics for cultures are pending IMS consulted followup 2-4wks Discharge when SNF arranged, clears PT, and cleared by IMS Subjective: Pain controlled, tolerating diet. Ambulated with therapy, anticipates discharge to a rehab facility. Denied numbness or tingling. Medications: sodium chloride flush 10 mL Intravenous 2 times per day ceFAZolin (ANCEF) IVPB 2 g Intravenous Q8H acetaminophen 650 mg Oral Q6H sennosides-docusate sodium 1 tablet Oral BID rivaroxaban 20 mg Oral Daily with breakfast traMADol 50 mg Oral Q6H vitamin B-12 500 mcg Oral Daily venlafaxine 150 mg Oral Daily pravastatin 40 mg Oral Daily mirtazapine 30 mg Oral Nightly losartan 25 mg Oral Daily insulin glargine 40 Units Subcutaneous Nightly insulin lispro 10 Units Subcutaneous TID fenofibrate 54 mg Oral Daily magnesium oxide 400 mg Oral BID insulin lispro 0-12 Units Subcutaneous TID WC insulin lispro 0-6 Units Subcutaneous Nightly Physical Exam: Vitals: 01/23/20 0301 BP: (!) 93/52 Pulse: 76 Resp: 16 Temp: 98.2 F (36.8 C) SpO2: 97% Intake and Output Summary (Last 24 hours) at Date Time Intake/Output Summary (Last 24 hours) at 01/23/2020 0641 Last data filed at 01/22/2020 1857 Gross per 24 hour Intake 320 ml Output 400 ml Net -80 ml General appearance - no acute distress Musculoskeletal - Dressing C/D/I Fires quad/TA/EHL/GSC SILT S/S/SP/DP/TN WWP distally Calves soft, nontender bilateral Labs: CBC: Lab Results Component Value Date WBC 10.5 01/21/2020 WBC 7.3 02/04/2015 RBC 4.78 01/21/2020 HGB 10.1 01/22/2020 HCT 30.8 01/22/2020 MCV 87.9 01/21/2020 MCH 28.5 01/21/2020 MCHC 32.4 01/21/2020 RDW 13.9 01/21/2020 PLT 382 01/21/2020 MPV 7.6 01/21/2020 Cx: NGTD Signed by: Khadar Chua * Layne Adler, TYLER - 01/22/2020 3:36 PM EDT Patient giving resource information on more affordable glucose monitoring supplies. * Jada Arango PTA - 01/22/2020 2:50 PM EDT Physical Therapy Facility/Department: [facility] 1E MED SURG Daily Treatment Note NAME: Beverly Agee : 1945 Date of Service: 01/22/2020 Discharge Recommendations: Subacute/[facility] Facility Assessment Assessment: Pt presents with increased functional mobility. Pt still requires a mod A x 1 for bed mobility. Pt is CGA for transfers and ambulaiton. Pt able to maintain 50% WB on R LE. Pt demonstratesgood safety awareness. Pt able to demonstrate good strength and ROM. Pt is expected to benefit fromcontinued therapy in order to increase overall functional independence. REQUIRES PT FOLLOW UP: Yes Activity Tolerance Activity Tolerance: Patient Tolerated treatment well;Patient limited by pain Patient Diagnosis(es): The primary encounter diagnosis was Hip fracture requiring operative repair,right, closed, initial encounter ([facility]). A diagnosis of Closed displaced intertrochanteric fracture of right femur, initial encounter ([facility]) was also pertinent to this visit. has a past medical history of Arrhythmia, Arthritis, Atrial fibrillation ([facility]), Breast CA ([facility]), Cancer ([facility]), Cerebral artery occlusion with cerebral infarction ([facility]), Depression, History of blood transfusion, Hyperlipidemia, Hypertension, and Type II or unspecified type diabetes mellitus without mention of complication, not stated as uncontrolled. has a past surgical history that includes Breast lumpectomy (Left, 2012); Cholecystectomy; Cesareansection; joint replacement (Bilateral); Breast lumpectomy (Left); Cataract removal with implant (Bilateral, 10/2015, 12/2015 ); Hysterectomy, total abdominal; Femur fracture surgery (Right, 11/30/2019); Dilation and curettage of uterus; Rotator cuff repair (Right); and Hip Arthroplasty (Right, 01/21/2020). Restrictions Restrictions/Precautions Restrictions/Precautions: Weight Bearing, General Precautions, ROM Restrictions, Surgical Protocols, Fall Risk Required Braces or Orthoses?: No Lower Extremity Weight Bearing Restrictions Right Lower Extremity Weight Bearing: Partial Weight Bearing Partial Weight Bearing Percentage Or Pounds: 50% Position Activity Restriction Hip Precautions: No hip flexion > 90 degrees, No hip internal rotation, No hip external rotation, Posterior hip precautions(no crossing legs, no SLR) Other position/activity restrictions: s/p conversion of previous sx to R RIC - posterior approach 01/21/2020. Subjective General Chart Reviewed: Yes Family / Caregiver Present: No Subjective Subjective: Pt pleasant and agreeable to therapy. General Comment Comments: Per RN patient okay for therapy. Pain Screening Patient Currently in Pain: Yes Pain Assessment Pain Assessment: 0-10 Pain Level: 7 Pain Type: Surgical pain Pain Location: Hip Pain Orientation: Right Pain Descriptors: Aching Non-Pharmaceutical Pain Intervention(s): Ambulation/Increased Activity;Elevation Vital Signs Patient Currently in Pain: Yes Objective Bed mobility Supine to Sit: Moderate assistance(Assist of trunk to EOB) Sit to Supine: Minimal assistance(Assist on R LE back onto bed ) Scooting: Stand by assistance(to EOB and HOB once in bed ) Comment: Pt denied dizziness with position change. Pt able to complete bed mobility within her hip precautions after educated. Pt could only recall 1 of the hip precautions. Pt needed verbal cues forsequencing. Transfers Sit to Stand: Contact guard assistance(To FWW ) Stand to sit: Contact guard assistance Comment: Pt denied dizziness with position change. Pt able to demonstrate proper hand and foot placement with ascends and descends and 1 cue. Pt able to maintain 50% WB. Ambulation Ambulation?: Yes WB Status: R LE 50% WB Ambulation 1 Surface: level tile Device: Rolling Walker Assistance: Contact guard assistance Quality of Gait: Pt demonstrate a step to pattern with slight increase UE support on FWW, no unsteadiness or LOB, demonstrates ability to maintain 50% WB on R LE. Distance: 35ft x 1, 5 ft x 1 ([facility]) Stairs/Curb Stairs?: No Exercises Quad Sets: 1 set of 10 reps R LE supine Heelslides: 1 set of 10 reps R LE supine Gluteal Sets: 1 set of 10 reps B LE supine Knee Long Arc Quad: 1 set of 10 reps R LE sitting Knee Short Arc Quad: 1 set of 10 reps R LE supine Ankle Pumps: 1 set of 10 reps B LE supine Comments: Pt able to demonstrate good stength and ROM. Other exercises Other exercises?: Yes Other exercises 1: Hip adduction: 1 set of 10 reps B LE sitting isometrically Goals Short term goals Time Frame for Short term goals: 6 visits Short term goal 1: Pt yulia be able to verbalize hip precautions to therapist accurately with out cues in order to demonstrate improved understanding. (partially met) Short term goal 2: Pt will complete functional transfers with FWW and SBA in order to improve safety and prepare for ambulation. (not met) Short term goal 3: Pt will ambulate 25 ft x 2 with FWW and SBA in order to improve safety with gait. (not met) Short term goal 4: Pt will complete 2-3 sets / 10 reps LE exercises in order to improve strength and activity tolerance for mobility. (not met) Short term goal 5: Pt will maintain 50% WB on R LE 100% of time with mobility in order to improve safety and healing. (met) Patient Goals Patient goals : Pt states she wants to not fall anymore Plan Plan Times per week: 5 visits Times per day: Twice a day Current Treatment Recommendations: Strengthening, Balance Training, Functional Mobility Training, Transfer Training, Endurance Training, Gait Training, Neuromuscular Re-education, Pain Management, Stair training, Home Exercise Program, Safety Education & Training, Patient/Caregiver Education & Training, Equipment Evaluation, Education, & procurement Plan Comment: Goals and/or treatment plan were established in collaboration with patient. Safety Devices Type of devices: All fall risk precautions in place, Call light within reach, Chair alarm in place,Gait belt, Patient at risk for falls, Nurse notified, Left in bed Therapy Time Individual Concurrent Group Co-treatment Time In 1330 Time Out 1400 Minutes 30 Timed Code Treatment Minutes: 23 Minutes(1 ther ex, 1 gait ) Jada Arango, DIRECTOR OF [employer] * Kandace Payton OT - 01/22/2020 1:58 PM EDT Occupational Therapy Occupational Therapy Initial Assessment Date: 01/22/2020 Patient Name: Beverly Agee : 1945 Having reviewed the treatment plan and goals for this patient, I certify that the plan of care below is medically necessary and appropriate. Date of Service: 01/22/2020 Discharge Recommendations: Subacute/[facility] Facility Assessment Performance deficits / Impairments: Decreased functional mobility ;Decreased ADL status;Decreased endurance;Decreased safe awareness;Decreased balance;Decreased strength;Decreased high-level IADLs Assessment: Pt was previously independent in ADLs, functional transfers and mobility; pt now requires SBA-mod A for ADLs, min A for sit<>stands and mod A for short mobility. Pt is limited by impaired balance and endurance. Pt should benefit from skilled OT services in order to increase occupational participation. Prognosis: Good Decision Making: Medium Complexity History: Pt s/p conversion to R RIC. PMH is listed above. Exam: AM-PAC Assistance / Modification: mod A OT Education: Plan of Care;OT Role;Precautions;Transfer Training;Equipment Barriers to Learning: pt reports memory deficits REQUIRES OT FOLLOW UP: Yes Activity Tolerance Activity Tolerance: Patient limited by fatigue Safety Devices Safety Devices in place: Yes Type of devices: All fall risk precautions in place;Call light within reach;Gait belt;Patient at risk for falls;Left in chair;Chair alarm in place;Nurse notified Patient Diagnosis(es): The primary encounter diagnosis was Hip fracture requiring operative repair,right, closed, initial encounter ([facility]). A diagnosis of Closed displaced intertrochanteric fracture of right femur, initial encounter ([facility]) was also pertinent to this visit. has a past medical history of Arrhythmia, Arthritis, Atrial fibrillation (HCC), Breast CA (HCC), Cancer (HCC), Cerebral artery occlusion with cerebral infarction (HCC), Depression, History of blood transfusion, Hyperlipidemia, Hypertension, and Type II or unspecified type diabetes mellitus without mention of complication, not stated as uncontrolled. has a past surgical history that includes Breast lumpectomy (Left, 2012); Cholecystectomy; Cesareansection; joint replacement (Bilateral); Breast lumpectomy (Left); Cataract removal with implant (Bilateral, 10/2015, 12/2015 ); Hysterectomy, total abdominal; Femur fracture surgery (Right, 11/30/2019); Dilation and curettage of uterus; Rotator cuff repair (Right); and Hip Arthroplasty (Right, 01/21/2020). Restrictions Restrictions/Precautions Restrictions/Precautions: Weight Bearing, General Precautions, ROM Restrictions, Surgical Protocols, Fall Risk Required Braces or Orthoses?: No Lower Extremity Weight Bearing Restrictions Right Lower Extremity Weight Bearing: Partial Weight Bearing Partial Weight Bearing Percentage Or Pounds: 50% Position Activity Restriction Hip Precautions: No hip flexion > 90 degrees, No hip internal rotation, No hip external rotation, Posterior hip precautions(no crossing legs, no SLR) Other position/activity restrictions: s/p conversion of previous sx to R RIC - posterior approach 01/21/2020. Subjective General Chart Reviewed: Yes Patient assessed for rehabilitation services?: Yes Subjective Subjective: Pt pleasant and cooperative. General Comment Comments: Per RN, ok for pt to participate in OT eval. Patient Currently in Pain: Denies Vital Signs Temp: 98.1 F (36.7 C) Temp Source: Temporal Pulse: 101 Heart Rate Source: Monitor Resp: 18 BP: 102/66 BP Location: Right Arm MAP (mmHg): 78 Patient Position: Sitting Patient Currently in Pain: Denies Oxygen Therapy SpO2: 100 % O2 Device: None (Room air) Social/Functional History Social/Functional History Lives With: Alone Type of Home: House Home Layout: One level Home Access: Stairs to enter with rails Entrance Stairs - Number of Steps: 2+1 Entrance Stairs - Rails: Both Bathroom Shower/Tub: Walk-in shower Bathroom Toilet: (BSC over toilet) Bathroom Equipment: Grab bars around toilet, 3-in-1 commode Bathroom Accessibility: Walker accessible Home Equipment: Rolling walker, Cane, Corn Cutter Operator ADL Assistance: Independent Homemaking Assistance: Independent Homemaking Responsibilities: Yes Ambulation Assistance: Independent(with fww since sx in November 2019, prior did not use device) Transfer Assistance: Independent Active Optomechanical Engineer: Yes Mode of Transportation: Car Objective Vision: Within Functional Limits Vision Exceptions: Wears glasses for reading Hearing: Within functional limits Observation/Palpation Posture: Fair Observation: R hip sx dressing clean/dry/intact, 3L O2 donned Balance Sitting Balance: Independent(static sitting at EOB) Standing Balance: Moderate assistance(static/dynamic standing at fww) Functional Mobility Functional - Mobility Device: Rolling Walker Activity: Other(short distance to chair) Assist Level: Moderate assistance Functional Mobility Comments: Pt educated on maintaining 50% WB restrcition during mobility- pt completed short mobility with VC for sequencing and mod A for balance/weight shifting. No LOB noted. ADL Feeding: Independent Grooming: Stand by assistance UE Bathing: Stand by assistance LE Bathing: Moderate assistance UE Dressing: Stand by assistance LE Dressing: Moderate assistance Toileting: Minimal assistance Bed mobility Supine to Sit: Moderate assistance(Assist for trunk management, increased time to manage B LE to EOB ) Sit to Supine: Unable to assess(NT patient up in chair end of session) Scooting: Moderate assistance Comment: Pt educated on posterior hip precautions prior to mobility in order to improve safety in occupational participation/mobility. Handout provided with restrictions listed. Pt able to verbalize good understanding. To complete sup to sit pt required VC for sequencing in order to maintain restrictions. Denied dizziness with changes in positioning. Transfers Sit to stand: Stand by assistance;Supervision Stand to sit: Supervision;Stand by assistance Transfer Comments: x1 at fww- pt required VC for safe hand placement as well as BLE placement in order to maintain precautions during transfers, pt with VC for carryover. Pt required SBA progressing to SUP for transfers. Cognition Overall Cognitive Status: WFL Cognition Comment: Pt reports memory deficits. Sensation Overall Sensation Status: WFL(Denies numbness/tingling) LUE AROM (degrees) LUE AROM : WFL RUE AROM (degrees) RUE AROM : WFL LUE Strength LUE Strength Comment: >3/5 RUE Strength RUE Strength Comment: >3/5 Plan Plan Times per week: 5 visits Times per day: Daily Current Treatment Recommendations: Balance Training, Functional Mobility Training, Endurance Training, Safety Education & Training, Patient/Caregiver Education & Training, Equipment Evaluation, Education, & procurement, Self-Care / ADL, Strengthening, Positioning Plan Comment: POC and goals were made in collaboration with the pt. AM-PAC Score [facility] Inpatient Daily Activity Raw Score: 17 (01/22/20 134) [facility] Inpatient ADL T-Scale Score : 37.26 (01/22/20 1346) ADL Inpatient CMS 0-100% Score: 50.11 (01/22/20 1346) ADL Inpatient CMS G-Code Modifier : CK (01/22/201345) Goals Short term goals Time Frame for Short term goals: 5 visits Short term goal 1: Pt will complete functional transfers and mobility with SBA. Short term goal 2: Pt will complete LB ADLs with AE with SBA. Short term goal 3: Pt will complete UB ADLs with mod I. Short term goal 4: Pt will complete functional standing >3 minutes with SBA in order to increaseoccupational participation. Short term goal 5: Pt will complete BUE strengthening exercises in order to increase strength required for functional transfers. Short term goal 6: Pt will maintain WB/ROM restrictions throughout all ADLs, functional transfers and mobility. Therapy Time Individual Concurrent Group Co-treatment Time In 1119(co-eval with PT) Time Out 1148 Minutes 29 Kandace Payton OT * Deepa Lozano, PT - 01/22/2020 1:57 PM EDT Physical Therapy Facility/Department: [facility] 1E MED SURG Initial Assessment NAME: Beverly Agee : 1945 Date of Service: 01/22/2020 Having reviewed the treatment plan and goals for this patient, I certify that the plan of care below is medically necessary and appropriate. Discharge Recommendations: Subacute/[facility] Facility PT Equipment Recommendations Other: TBD at next level of care Assessment Body structures, Functions, Activity limitations: Decreased functional mobility ;Decreased strength;Decreased safe awareness;Decreased endurance;Decreased balance Assessment: Pt presents with decreased functional mobility, decreased R knee ROM, decreased strength, decreased safety awareness with new 50% WB restrictions and use of FWW, decreased endurance, impaired balance and increased pain s/p conversion of previous sx to R RIC - posterior approach. Pt has decreased standing balance requiring FWW and Estephania/modA at this time for mobility placing her at an increased risk of falling. Pt could benefit from skilled PT in order to address her decreased functional mobility, strength, balance and safety. Prognosis: Good Decision Making: Medium Complexity History: Pt s/p conversion of previous sx to R RIC - posterior approach 01/21/2020. Exam: AM-PAC Clinical Presentation: s/p conversion of previous sx to R RIC - posterior approach. Pt has medical history as indicated above that contributes to her clinical presentation. At baseline patient is functionally without a device, with recent need for FWW for the last 2 months. Currently patient is unsafe to return home alone secondary to her increased need for assist and fall risks with mobility. PT Education: Goals;PT Role;Plan of Care;Precautions;Transfer Training;General Safety;Weight-bearing Education;Adaptive Device Training;Gait Training;Functional Mobility Training;Injury Prevention Patient Education: recommendation for rehab Barriers to Learning: Pt has reported memory deficits which may impact her ability to learn. REQUIRES PT FOLLOW UP: Yes Activity Tolerance Activity Tolerance: Patient limited by fatigue;Patient limited by endurance Patient Diagnosis(es): The primary encounter diagnosis was Hip fracture requiring operative repair,right, closed, initial encounter ([facility]). A diagnosis of Closed displaced intertrochanteric fracture of right femur, initial encounter ([facility]) was also pertinent to this visit. has a past medical history of Arrhythmia, Arthritis, Atrial fibrillation ([facility]), Breast CA ([facility]), Cancer ([facility]), Cerebral artery occlusion with cerebral infarction ([facility]), Depression, History of blood transfusion, Hyperlipidemia, Hypertension, and Type II or unspecified type diabetes mellitus without mention of complication, not stated as uncontrolled. has a past surgical history that includes Breast lumpectomy (Left, 2012); Cholecystectomy; Cesareansection; joint replacement (Bilateral); Breast lumpectomy (Left); Cataract removal with implant (Bilateral, 10/2015, 12/2015 ); Hysterectomy, total abdominal; Femur fracture surgery (Right, 11/30/2019); Dilation and curettage of uterus; Rotator cuff repair (Right); and Hip Arthroplasty (Right, 01/21/2020). Restrictions Restrictions/Precautions Restrictions/Precautions: Weight Bearing, General Precautions, ROM Restrictions, Surgical Protocols, Fall Risk Required Braces or Orthoses?: No Lower Extremity Weight Bearing Restrictions Right Lower Extremity Weight Bearing: Partial Weight Bearing Partial Weight Bearing Percentage Or Pounds: 50% Position Activity Restriction Hip Precautions: No hip flexion > 90 degrees, No hip internal rotation, No hip external rotation, Posterior hip precautions(no crossing legs, no SLR) Other position/activity restrictions: s/p conversion of previous sx to R RIC - posterior approach 01/21/2020. Vision/Hearing Vision: Within Functional Limits Vision Exceptions: Wears glasses for reading Hearing: Within functional limits Subjective General Chart Reviewed: Yes Patient assessed for rehabilitation services?: Yes Family / Caregiver Present: No General Comment Comments: Per RN patient okay for therapy. Co-eval with OT. Subjective Subjective: Pt pleasant and agreeable to therapy. Anxious about getting upon and out of bed the first time. Pain Screening Patient Currently in Pain: Denies Vital Signs Patient Currently in Pain: Denies Orientation Orientation Overall Orientation Status: Within Normal Limits Social/Functional History Social/Functional History Lives With: Alone Type of Home: House Home Layout: One level Home Access: Stairs to enter with rails Entrance Stairs - Number of Steps: 2+1 Entrance Stairs - Rails: Both Bathroom Shower/Tub: Walk-in shower Bathroom Toilet: (BSC over toilet) Bathroom Equipment: Grab bars around toilet, 3-in-1 commode Bathroom Accessibility: Walker accessible Home Equipment: Rolling walker, Cane, Corn Cutter Operator ADL Assistance: Independent Homemaking Assistance: Independent Homemaking Responsibilities: Yes Ambulation Assistance: Independent(with fww since sx in November 2019, prior did not use device) Transfer Assistance: Independent Active Optomechanical Engineer: Yes Mode of Transportation: Car Cognition Cognition Overall Cognitive Status: WFL Cognition Comment: Pt reports memory deficits. Objective Observation/Palpation Posture: Fair Observation: R hip sx dressing clean/dry/intact, 3L O2 donned AROM RLE (degrees) RLE AROM: WFL AROM LLE (degrees) LLE AROM : WFL Strength RLE Comment: hip NT, knee and ankle 4/5 1 Strength LLE Comment: 4+/5 Sensation Overall Sensation Status: WFL(Denies numbness/tingling) Bed mobility Supine to Sit: Moderate assistance(Assist for trunk management, increased time to manage B LE to EOB ) Sit to Supine: Unable to assess(NT patient up in chair end of session) Scooting: Moderate assistance Comment: Pt educated on posterior hip precautions prior to mobility in order to improve patient understanding and compliance during mobility. Handout provided with restrictions listed. Pt able to verbalize fair understanding, however requires frequent cues within session to maintian restrictions. Pt demonstrating improved awareness within session. To complete supine to sit patient requires verbalinstruction for sequencing in order to maintain restrictions and avoid SLR on R LE. Denies dizziness with positional changes. Transfers Sit to Stand: Minimal Assistance(to FWW from EOB ) Stand to sit: Minimal Assistance Bed to Chair: Moderate assistance(with FWW EOB > recliner ) Comment: Demonstration and verbal instruction for sequencing transfers with FWW with emphasis on R LE placement, hand placement, placement of FWW and R LE 50% WB in preparation for transfers. Pt has decreased standing balance requiring consistent Estephania to complete. Denies dizziness in standing. Ambulation Ambulation?: Yes WB Status: R LE 50% WB Ambulation 1 Surface: level tile Device: Rolling Walker Other Apparatus: O2 Assistance: Moderate assistance Quality of Gait: Pt demonstrates step to pattern with increased UE support on FWW during R SLS, no true LOB, demonstrates ability to maintain 50% WB on R LE with assist for weight shifting Distance: 2 ft to chair Comments: Demonstration and verbal instruction for sequencing gait with FWW with emphasis on R LE 50% WB, step to pattern, proximity from FWW and equal UE support on FWW during R SLS. Pt demonstratesgood carryover within session with observable UE fatigue with these distances at this time, howeverable to maintain R LE 50% WB at this time with assist for weight shifting. Pt educated on importance of maintaining R LE WB restriction until progressed by ortho MD, educated on current level of assist and recommendation for rehab at this time, pt agreeable. Stairs/Curb Stairs?: No Balance Posture: Fair Sitting - Static: Fair;+ Sitting - Dynamic: Fair Standing - Static: Poor;+ Standing - Dynamic: Poor Plan Plan Times per week: 6 visits Times per day: Twice a day Current Treatment Recommendations: Strengthening, Balance Training, Functional Mobility Training, Transfer Training, Endurance Training, Gait Training, Neuromuscular Re-education, Pain Management, Stair training, Home Exercise Program, Safety Education & Training, Patient/Caregiver Education & Training, Equipment Evaluation, Education, & procurement Plan Comment: Goals and/or treatment plan were established in collaboration with patient. Safety Devices Type of devices: All fall risk precautions in place, Call light within reach, Chair alarm in place,Gait belt, Patient at risk for falls, Left in chair, Nurse notified [facility] Score [facility] Inpatient Mobility Raw Score : 10 (01/22/20 1350) [facility] Inpatient T-Scale Score : 32.29 (01/22/20 135) Mobility Inpatient CMS 0-100% Score: 76.75 (01/22/20 135) Mobility Inpatient CMS G-Code Modifier : CL (01/22/201349) [facility] Mobility Inpatient How much difficulty turning over in bed?: A Lot How much difficulty sitting down on / standing up from a chair with arms?: A Lot How much difficulty moving from lying on back to sitting on side of bed?: A Lot How much help from another person moving to and from a bed to a chair?: A Lot How much help from another person needed to walk in hospital room?: Total How much help from another person for climbing 3-5 steps with a railing?: Total [facility] Inpatient Mobility Raw Score : 10 [facility] Inpatient T-Scale Score : 32.29 Mobility Inpatient CMS 0-100% Score: 76.75 Mobility Inpatient CMS G-Code Modifier : CL Goals Short term goals Time Frame for Short term goals: 6 visits Short term goal 1: Pt yulia be able to verbalize hip precautions to therapist accurately with out cues in order to demonstrate improved understanding. Short term goal 2: Pt will complete functional transfers with FWW and SBA in order to improve safety and prepare for ambulation. Short term goal 3: Pt will ambulate 25 ft x 2 with FWW and SBA in order to improve safety with gait. Short term goal 4: Pt will complete 2-3 sets / 10 reps LE exercises in order to improve strength and activity tolerance for mobility. Short term goal 5: Pt will maintain 50% WB on R LE 100% of time with mobility in order to improve safety and healing. Patient Goals Patient goals : Pt states she wants to not fall anymore Therapy Time Individual Concurrent Group Co-treatment Time In 1119(co-eval with OT ) Time Out 1148 Minutes 29 Timed Code Treatment Minutes: 11 Minutes(theract x 1) Deepa Lozano, PT * Katheryn Flower, RD, LD - 01/22/2020 9:44 AM EDT Nutrition Assessment Type and Reason for Visit: Initial, Positive Nutrition Screen Nutrition Recommendations: Per mnt protocols will initiate 60gm cho/meal diet to help with blood sugar management. Suggest goal diet to include cardiac restriction when pt tolerating meals optimally General diabetes diet information attached to discharge instructions and guidelines reviewed. good nutrition encouraged -suggest continue diet reinforcement as pt states she is forgetful at this time. Pt has RD contact number for questions and concerns Continue karrie bid (90 kcals, 14 g amino acids, and 300 mg Vitamin C per packet serving) Monitor weight, labs, po intake; RD to follow up Nutrition Assessment: pt admits with hip fx. 01/21/20 Conversion of previous surgery to right total hip arthroplasty. hx includes breast ca, HLD, HTN, DM, CVA. pt reports she broke her hip 11/2019 and has not been eating well since. pt has had wt loss but unable to give reliable hx "my memory is loopy after surgery" ?12# in <2 months. a1c =12.2% 11/2019. pt reports prior diabetic diet ecucation and has "cut-out soda". pt states her family Dr. heredia is working to get "affordable blood sugar test meter". pt reports good appetite at this time Malnutrition Assessment: Malnutrition Status: At risk for malnutrition Context: Acute illness or injury Findings of the 6 clinical characteristics of malnutrition (Minimum of 2 out of 6 clinical characteristics is required to make the diagnosis of moderate or severe Protein Calorie Malnutrition based on AND/ASPEN Guidelines): 1. Energy Intake-Less than or equal to 75% of estimated energy requirement, Greater than or equal to 1 month 2. Weight Loss-7.5% loss or greater, unable to assess Nutrition Risk Level: High Nutrient Needs: Estimated Daily Total Kcal: 4639-5981 Estimated Daily Protein (g): 57-74 Nutrition Diagnosis: Problem: Increased nutrient needs, Altered nutrition-related lab values Etiology: related to Acute injury/trauma, Endocrine dysfunction ? Signs and symptoms: as evidenced by Diet history of poor intake, Presence of wounds, Weight loss,Lab values(s/p ortho surgery) Objective Information: Nutrition-Focused Physical Findings: trace LE edema, bm 01/19 per nursing Wound Type: Surgical Wound(R. RIC /drain tube) Current Nutrition Therapies: Oral Diet Orders: Carb Control 5 Carbs/Meal Oral Diet intake: Unable to assess(pt states she tolerated breakfast well today +appetite) Oral Nutrition Supplement (ONS) Orders: Wound Healing Oral Supplement Anthropometric Measures: Ht: 5' 5" (165.1 cm) Current Body Wt: 188 lb (85.3 kg) Admission Body Wt: 188 lb (85.3 kg) Usual Body Wt: 205 lb (93 kg)(pt states she was over 300# but unsure of timeframe) % Weight Change: , 8.7% wt loss since 08/2019 per records (09/25/19- 206#) [place] Body Wt: 125 lb (56.7 kg), % [place] Body 150% BMI Classification: BMI 30.0 - 34.9 Obese Class I Nutrition Interventions: Modify current diet, Continue current ONS Continued Inpatient Monitoring, Education Initiated Nutrition Evaluation: Evaluation: Goals set Goals: pt will receive and tolerate adequate nutrition for wound healing; pt will not have unintended wt loss; labs will trend to baseline Monitoring: Meal Intake, Supplement Intake, Diet Tolerance, Skin Integrity, Wound Healing, I&O,Mental Status/Confusion, Weight, Pertinent Labs, Monitor Hemodynamic Status, Monitor Bowel Function Contact Number: [phone] * Norm Coyne MD - 01/22/2020 8:46 AM EDT [facility] 1E MED SURG [address] [facility] [address] Dept: [phone] Loc: [phone] Adult Hip and Knee Reconstruction Service Patient Name: Beverly Agee Date of : 1945 Date: 01/22/20 Assessment: s/p left RIC on 01/21/2020 doing well Plan: 50% weightbearing Strict anterior posterior hip precautions dvt proph: Okay to resume home anticoagulation Continue antibiotics for cultures are pending followup 2-4wks Subjective: Pain controlled, tolerating diet Medications: sodium chloride flush 10 mL Intravenous 2 times per day ceFAZolin (ANCEF) IVPB 2 g Intravenous Q8H acetaminophen 650 mg Oral Q6H sennosides-docusate sodium 1 tablet Oral BID rivaroxaban 20 mg Oral Daily with breakfast traMADol 50 mg Oral Q6H vitamin B-12 500 mcg Oral Daily venlafaxine 150 mg Oral Daily pravastatin 40 mg Oral Daily mirtazapine 30 mg Oral Nightly losartan 25 mg Oral Daily insulin glargine 40 Units Subcutaneous Nightly insulin lispro 10 Units Subcutaneous TID WC fenofibrate 54 mg Oral Daily magnesium oxide 400 mg Oral BID insulin lispro 0-12 Units Subcutaneous TID WC insulin lispro 0-6 Units Subcutaneous Nightly Physical Exam: Vitals: 01/22/20 0722 BP: (!) 121/58 Pulse: 69 Resp: 16 Temp: 97.6 F (36.4 C) SpO2: 97% Intake and Output Summary (Last 24 hours) at Date Time Intake/Output Summary (Last 24 hours) at 01/22/2020 0846 Last data filed at 01/22/2020 0722 Gross per 24 hour Intake 20 ml Output 105 ml Net -85 ml General appearance - no acute distress Musculoskeletal - Dressing C/D/I Fires quad/TA/EHL/GSC SILT SP/DP/TN WWP distally Calves soft, nontender bilateral Drain pulled --> <50cc Labs: CBC: Lab Results Component Value Date WBC 10.5 01/21/2020 WBC 7.3 02/04/2015 RBC 4.78 01/21/2020 HGB 10.1 01/22/2020 HCT 30.8 01/22/2020 MCV 87.9 01/21/2020 MCH 28.5 01/21/2020 MCHC 32.4 01/21/2020 RDW 13.9 01/21/2020 PLT 382 01/21/2020 MPV 7.6 01/21/2020 Rads: Radiological Procedure reviewed. Signed by: Norm Coyne * Mickey Aguilar MD - 01/21/2020 7:28 PM EDT Hospitalist Progress Note 01/21/2020 7:28 PM [id number]: Please page me ([phone]) for patient care issues. [phone]: Please page [facility] night Hospitalist for any issues. Subjective: Admit Date: 01/21/2020 PCP: Grecia Mccabe MD Hospital Day: 1 Interval History: Seen today in the room. She is seen in the room, after surgery She has had some liquid, she want to advance her diet now No nausea Pain is dull and aching, worse with movement in her right hip, but controlled at rest At baseline she states takes her lantus regularly, but misses her mealtime insulin She does not always eat full meals at home. Medications: Current Facility-Administered Medications: midazolam (VERSED) 2 MG/2ML injection, , , , SHAKEEL Jones 0.9 % sodium chloride infusion, , Intravenous, Continuous, SHAKEEL Jones sodium chloride flush 0.9 % injection 10 mL, 10 mL, Intravenous, 2 times per day, SHAKEEL Jones sodium chloride flush 0.9 % injection 10 mL, 10 mL, Intravenous, PRN, SHAKEEL Jones ceFAZolin (ANCEF) 2 g in dextrose 4 % 100 mL IVPB (premix), 2 g, Intravenous, Q8H, SHAKEEL Jones acetaminophen (TYLENOL) tablet 650 mg, 650 mg, Oral, Q6H, SHAKEEL Jones HYDROmorphone (DILAUDID) injection 0.25 mg, 0.25 mg, Intravenous, Q3H PRN OR HYDROmorphone (DILAUDID) injection 0.5 mg, 0.5 mg, Intravenous, Q3H PRN, SHAKEEL Jones sennosides-docusate sodium (SENOKOT-S) 8.6-50 MG tablet 1 tablet, 1 tablet, Oral, BID, SHAKEEL Jones magnesium hydroxide (MILK OF MAGNESIA) 400 MG/5ML suspension 30 mL, 30 mL, Oral, Daily PRN, SHAKEEL Jones [START ON 01/22/2020] rivaroxaban (XARELTO) tablet 20 mg, 20 mg, Oral, Daily with breakfast, SHAKEEL Jones dexamethasone (DECADRON) injection 10 mg, 10 mg, Intravenous, Q8H, SHAKEEL Jones oxyCODONE-acetaminophen (PERCOCET) 5-325 MG per tablet 1 tablet, 1 tablet, Oral, Q4H PRN OR oxyCODONE-acetaminophen (PERCOCET) 5-325 MG per tablet 2 tablet, 2 tablet, Oral, Q4H PRN, SHAKEEL Jones traMADol (ULTRAM) tablet 50 mg, 50 mg, Oral, Q6H, SHAKEEL Jones Objective: BP Min: 100/57 Max: 125/70 Temp Av.4 F (36.3 C) Min: 96.9 F (36.1 C) Max: 98 F (36.7 C) Pulse Av.4 Min: 79 Max: 89 Resp Av.9 Min: 17 Max: 18 SpO2 Av.9 % Min: 92 % Max: 100 % Height Av' 5" (165.1 cm) Min: 5' 5" (165.1 cm) Max: 5' 5" (165.1 cm) Weight Av lb 1 oz (85.3 kg) Min: 188 lb 1 oz (85.3 kg) Max: 188 lb 1 oz (85.3 kg) Temp (48hrs), Av.4 F (36.3 C), Min:96.9 F (36.1 C), Max:98 F (36.7 C) Patient Vitals for the past 96 hrs (Last 3 readings): Weight 01/21/20 1224 188 lb 1 oz (85.3 kg) No intake or output data in the 24 hours ending 01/21/20 1928 IV Intake: Monge: No flowsheet data found. No intake/output data recorded. Vitals: BP 125/70 Pulse 89 Temp 96.9 F (36.1 C) (Temporal) Resp 17 Ht 5' 5" (1.651 m) Wt 188 lb 1 oz (85.3 kg) SpO2 99% BMI 31.30 kg/m Pulse Ox: SpO2 Av.9 % Min: 92 % Max: 100 % Supplemental O2: O2 Flow Rate (L/min): 3 L/min General appearance: Wf, in bed, calm HEENT: Normal cephalic, atraumatic without obvious deformity. Pupils equal, round, and reactive to light. Neck: Supple, with full range of motion. No jugular venous distention. Trachea midline. No lymphadenopathy. Respiratory: Normal respiratory effort. Clear to auscultation, bilaterally without Rales/Wheezes/Rhonchi. Cardiovascular: Regular rate and rhythm with normal S1/S2 without murmurs, rubs or gallops. Abdomen: Soft, non-tender, non-distended with normal bowel sounds. No rebound or guarding. Musculoskeletal: No clubbing, cyanosis or edema bilaterally. Full range of motion without deformity. Drain present right hip Skin: Skin color, texture, turgor normal. No rashes or lesions. Neurologic: Neurovascularly intact without any focal sensory/motor deficits. Cranial nerves: II-XIIintact, grossly non-focal. 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 3.HTN Losartan 25mg daily 4.AFIB h/o embolic cva Chronic anticoagulation with xarelto Was on hold now restarting tomorrow 5.h/o breast cancer 6.hld pravastatin and fenofibrate 7 dvt prophylaxis She is resumine xarelto DIET CLEAR LIQUID; Dietary Nutrition Supplements: Wound Healing Oral Supplement replace lytes prn -increase activity -DVT prophylaxis: ? Pharmocologic prophylaxis on hold to due risk of bleeding or procedure ? DOAC ? Lovenox ? Heparin ? SCDs ? Encourage ambulation x Already on full dose anticoagulation to be started tomorrow MICKEY AGUILAR MD Division of Hospitalist Medicine Inpatient Medical Services PAGER: [phone] * Flora Gee RN - 01/21/2020 6:31 PM EDT To [facility] via bed on 3 l report to [facility] Monitor nsr during pacu stay * Flora Nelson RN - 01/21/2020 12:53 PM EDT Skin intact per pt * Flora Nelson RN - 01/21/2020 12:38 PM EDT OR control desk notified that lab states pt has antibodies in her blood. documented in this encounter Assessments Diagnosis Hyperglycemia Other abnormal glucose Generalized weakness Other malaise and fatigue Urinary tract infection without hematuria, site unspecified Fall, initial encounter Closed displaced intertrochanteric fracture of right femur, initial encounter ([facility]) Essential hypertension Unspecified essential hypertension Hip fracture requiring operative repair, right, closed, initial encounter ([facility]) Acute cystitis Leukocytosis Leukocytosis, unspecified Type 2 diabetes mellitus with hyperglycemia, with long-term current use of insulin ([facility]) Depression with anxiety Dysthymic disorder Atrial fibrillation ([facility]) Atrial fibrillation Hyperlipidemia Other and unspecified hyperlipidemia Hypomagnesemia Disorders of magnesium metabolism Psychophysiological insomnia Persistent disorder of initiating or maintaining sleep Unsteady gait Abnormality of gait H/O: CVA (cerebrovascular accident) Memory problem Memory loss Tobacco dependence Tobacco use disorder Class 1 obesity due to excess calories with serious comorbidity and body mass index (BMI) of 33.0 to 33.9 in adult E-coli UTI Urinary tract infection, site not specified Diagnosis Closed displaced intertrochanteric fracture of right femur, initial encounter ([facility]) Hip fracture requiring operative repair, right, closed, initial encounter ([facility]) Hip fracture, right, closed, initial encounter ([facility]) Summary Purpose Family History No Family History Records FoundNo Family History Records FoundNo Family History Records FoundNo Family History Records FoundNo Family History Records FoundNo Family History Records Found Reason for Referral Specialty Diagnoses / Procedures Referred By Contac t Referred To Contact Physical Therapy Diagnoses Repeated falls Procedures [place] OFFICE/OUTPATIENT [facility] 60 MINUTES Neno Iqbal MD [address] [place] [address] [place] [address] [place] [address] Referral ID Status Reason Start Date Expiration Date V isits Requested Visits Authorized [id number] Closed Eval and Treat 10/02/2023 09/26/2024 99 99 Chief Complaint and Reason for Visit Chief Complaint Admit Date [facility] October 23 5:00am [facility] November 03, 2024 9 :30pm Additional Source Comments Reason for Visit (unrecogniz ed section and content) Reason Comments Fall pt states she has be en laying on the ground for > 24 hours. states she got up to use restroom and fell hitting her right hip crawling around on the floor until she found her cell phone Reason Comments Abdominal Pain LLQ Fall 5 days ago, landed o n left side Reason Onset Date Comments Urinary Frequency 08/25/2022 UTI 08/25/2022 Reason Onset Date Comments Med Refill 12/18/2022 Reason Onset Date Comments Med Refill 02/17/2023 Reason Onset Date Comments Other 09/02/2023 Reason Comments Fall Pt fell last night o n carpet. EMT came out to evaluate. Pt did not hit her head. RT abdominal and RET shoulder pain Reason Comments Rib Injury Shortness of Breath Specialty Diagnoses / Procedures Referred By Contac t Referred To Contact Diagnoses Pneumohemothorax, traumatic, initial encounter Traumatic pneumothorax, initial encounter Closed fracture of multiple ribs of right side, initial encounter Procedures . Charlotte Braswell MD [address] [place] [address] [address] [place] [address] Referral ID Status Reason Start Date Expiration Date Visits Re quested Visits Authorized [id number] 1 1 Reason Comments Knee Pain Pt states that today she fell and no she has bilateral knee pain. Altered Mental Status Per EMS the pt isabella parmar states that she is not acting like her normal self. EMS states that the pt was just at a retirement for rehab after being in the hospital however, they were unsure of what the pt was in the hospital for. Specialty Diagnoses / Procedures Referred By Minerva jarquin Referred To Contact Diagnoses Complicated UTI (urinary tract infection) Fall, initial encounter Procedures .. Mónica Tiwari MD [address] [place] [address] [address] [place] [address] Referral ID Status Reason Start Date Expiration Date Visits Re quested Visits Authorized [id number] 1 1 Reason Onset Date Comments Other 03/24/2024 PCP Call Reason Comments UTI Urinary urgency, uri nary frequency, dysuria since about 07/27. Reason Onset Date Comments Med Refill 08/31/2022 Reason Onset Date Comments Release of Information 09/11/2022 Reason Comments Hypoglycemia Found by ems to have blood sugar in 30's and unresponsive. EMS gave 2 amps of dextrose. Specialty Diagnoses / Procedures Referred By Minerva jarquin Referred To Contact Diagnoses Hypoglycemia Urinary tract infection without hematuria, site unspecified Procedures . Mónica Tiwari MD [address] [place] [address] Phone: tel: fax: [facility] [address] [place] [address] Phone: tel: Referral ID Status Reason Start Date Expiration Date Visits Re quested Visits Authorized [id number] 1 1 Reason Comments Hospital Follow-up Reason Onset Date Comments Advice Only 11/29/2024 Reason Onset Date Comments Release of Information 12/05/2024 Reason Comments Memory Loss Specialty Diagnoses / Procedures Referred By Contac t Referred To Contact Geriatric Medicine Diagnoses Cognitive impairment Procedures NC OFFICE/OUTPATIENT [facility] 60 MINUTES Birdie Steele MD [address] [address] Phone: tel: fax: [facility] [address] [address] Phone: tel: fax: Referral ID Status Reason Start Date Expiration Date V isits Requested Visits Authorized [id number] Closed Specialty Services Required 10/21/2024 10/21/2025 1 1 Reason Onset Date Comments Results 01/14/2025 Reason Comments Fatigue Depression Reason Comments Memory Loss Reason Comments Follow-up Diabetes Mellitus Reason Comments Diabetes Mellitus Hyperglycemia Follow-up Reason Comments Fall Specialty Diagnoses / Procedures Referred By Jaimeac t Referred To Contact Diagnoses Fall, initial encounter Procedures . Jayy White MD [address] [place] [address] Phone: tel: fax: [facility] [address] [place] [phone] Phone: tel: fax: Referral ID Status Reason Start Date Expiration Date Visits Re quested Visits Authorized [id number] 1 1 Reason Onset Date Comments Other 06/23/2025 Reason Onset Date Comments New Patient 06/24/2025 07/02/25 1:00 PM new patient appointment Reason Comments Altered Mental Status Pt from home, live s alone. Recently admitted for a fall. Pt has no complaints. Pt is afraid to fall and very emotional during triage Specialty Diagnoses / Procedures Referred By Contac t Referred To Contact Diagnoses Altered mental status, unspecified altered mental status type Urinary tract infection in female Procedures . Darrin Iniguez MD [address] [place] [address] Phone: tel: fax: [facility] [address] [place] [phone] Phone: tel: Referral ID Status Reason Start Date Expiration Date Visits Re quested Visits Authorized [id number] 1 1 INFORMATION SOURCE (unrecogn ized section and content) DATE CREATED AUTHOR 06/10/2020 [facility] DATE CREATED AUTHOR AUTHOR'S ORGANIZ ATION 08/02/2021 [facility] DATE CREATED AUTHOR AUTHOR'S ORGANIZ ATION 08/09/2021 [facility] DATE CREATED AUTHOR AUTHOR'S ORGANIZ ATION 11/23/2024 [facility] DATE CREATED AUTHOR AUTHOR'S ORGANIZ ATION 06/12/2025 [facility] DATE CREATED AUTHOR AUTHOR'S ORGANIZ ATION [facility]02[facility]20[facility] Ordered Prescriptions (unrec ognized section and content) Prescription Sig Dispensed Refills Start Date End Da te lidocaine 4 % external patch Place 1 patch onto the skin daily for 10 days 10 patch 0 08/01/2021 08/11/2021 oxyCODONE-acetaminophen (PERCOCET) 5-325 MG per tabletIndications:Closed fracture of one rib of left side, initial encounter Take 1 tablet by mouth every 6 hours as needed for Pain for up to 5 days. Intended supply: 5 days. Take lowest dose possible to manage pain 20 tablet 0 08/01/2021 08/06/2021 methocarbamol (ROBAXIN) 500 MG tablet Take 1 tablet by mouth 3 times daily for 10 days 30 tablet 0 08/01/2021 08/11/2021 Scheduled Active and Recently Administ ered Medications (unrecognized section and content) Medication Order 07/30/2021 07/31/2021 08/01/2021 0.9 % sodium chloride bolus (COMPLETED) 1,000 mL (10 mL/kg), IntraVENous, at 1,000 mL/hr, Administer over 1 Hours, ONCE, On 08/01/21 at 1430, For 1 dose 1640 (New Bag - Prov ider: Radha Gaytan RN)1745 (Stopped - Provider: Radha Gaytan RN) Scheduled Medication Order 12/22/2023 12/23/2023 12/24/2023 acetaminophen (Tylenol) tablet 1,000 mg 1,000 mg, Oral, Every 8 hours, First dose on Cata 12/13/23 at 0305, Maximum dose of acetaminophen is 4000 mg from all sources in 24 hours. 0611 (Given - Provider: Brittany Catalan RN)1230 (Not Given - Provider: Volodymyr Paul RN - Reason: Patient/family refused)2030 (Given - Provider: Brittany Catalan RN) 0502 (Given - Provider: Brittany Catalan RN)1230 (Not Given - Provider: Volodymyr Paul RN - Reason: Patient/family refused)2103 (Given - Provider: Katheryn Sharma RN) 0513 (Given - Provider: Katheryn Sharma RN)1155 (Given - Provider: Ajit Razo, RN) cyanocobalamin (Vitamin B-12) tablet 500 mcg 500 mcg, Oral, Daily, First dose on 12/16/23 at 1030 0813 (Given - Provider: Volodymyr Paul RN) 0805 (Given - Provider: Volodymyr Paul RN) 0832 (Given - Provider: Ajit Razo, TYLER) enoxaparin (Lovenox) syringe 40 mg (CANCELED) 40 mg, SubCUTAneous, Every 12 hours, First dose (after last modification) on Sun12/19/23 at 1800, Indication of Use: Prophylaxis-DVT/PE, Indications: Prophylaxis of Venous Thromboembolism 0611 (Given - Provider: Brittany Catalan RN) ergocalciferol (Vitamin D2) capsule 1.25 mg 1.25 mg, Oral, Weekly, First dose on 12/15/23 at 0900, For 4 doses 0813 (Given - Provider: Volodymyr Paul RN) fenofibrate (Tricor) tablet 54 mg 54 mg, Oral, Daily, First dose on Sun12/19/23 at 1115, Substituted for Fenofibrate (Non-Formulary Dose). 0813 (Given - Provider: Volodymyr Paul RN) 0805 (Given - Provider: Volodymyr Paul RN) 1008 (Given - Provider: Ajit Razo RN) folic acid (Folvite) tablet 1 mg 1 mg, Oral, Daily, First dose on 12/16/23 at 1030 0813 (Given - Provider: Volodymyr Paul RN) 0805 (Given - Provider: Volodymyr Paul RN) 0832 (Given - Provider: Ajit Razo RN) insulin glargine (Lantus) injection 13 Units 13 Units, SubCUTAneous, 2 times daily, First dose (after last modification) on Sun12/20/23 at 0900 0813 (Given - Provider: Volodymyr Paul RN)2128 (Given - Provider: Brittany Catalan RN) 0805 (Given - Provider: Volodymyr Paul RN)2103 (Given - Provider: Katheryn Sharma, RN) 0832 (Given - Provider: Ajit Razo RN) Insulin Lispro (Humalog) injection 0-18 Units(Linked Group 1) 0-18 Units, SubCUTAneous, 3 times daily with meals, First dose on Sun12/14/23 at 1700, High Dose Correction Algorithm Glucose: Dose: LESS than 139 No Insulin 140-199 3 Unit 200-249 6 Units 250-299 9 Units 300-349 12 Units 350-400 15 Units Above 400 18 Units 0813 (Given - Provider: Volodymyr Paul RN)1200 (Not Given - Provider: Volodymyr Paul RN - Reason: Order parameters not met)1727 (Given - Provider: Volodymyr Paul RN) 0805 (Given - Provider: Volodymyr Paul RN)1245 (Given - Provider: Volodymyr Paul RN)1700 (Not Given - Provider: Volodymyr Paul RN - Reason: Order parameters not met) 0800 (Not Given - Provider: Ajit Razo RN - Reason: Order parameters not met)1156 (Given - Provider: Ajit Razo RN)1700 (Canceled Entry - Provider: Automatic Discharge Provider - Comment: Automatically canceled at discontinue of medication order) Insulin Lispro (Humalog) injection 0-18 Units(Linked Group 1) 0-18 Units, SubCUTAneous, Nightly, First dose on Sun12/14/23 at 2100, If continuous tube feedings/TPN/NPO, give correction dose based on result, no reduction in dose. If eating or bolus tube feeding: High Dose Correction Algorithm Glucose: Dose: LESS than 139 No Insulin 140-199 3 Unit 200-249 6 Units 250-299 9 Units 300-349 12 Units 350-400 15 Units Above 400 18 Units 2100 (Not Given - Provider: Brittany Catalan RN - Reason: Order parameters not met - Comment: BG 130) 2100 (Not Given - Provider: Katheryn Sharma RN - Reason: Order parameters not met) losartan (Cozaar) tablet 25 mg 25 mg, Oral, Daily, First dose on 12/22/23 at 0900, Indications: Hypertension 0814 (Given - Provider: Volodymyr Paul RN) 0806 (Given - Provider: Volodymyr Paul RN) 0832 (Given - Provider: Ajit Razo, RN) magnesium oxide (Mag-Ox) tablet 400 mg 400 mg, Oral, 2 times daily, First dose on 12/16/23 at 1030 0814 (Given - Provider: Volodymyr Paul RN)2030 (Given - Provider: Brittany Catalan RN) 08 (Given - Provider: Volodymyr Paul RN)210 (Given - Provider: Katheryn Sharma RN) 0832 (Given - Provider: Ajit Razo RN) melatonin tablet 5 mg 5 mg, Oral, Nightly, First dose on Cata 12/13/23 at 2100 2030 (Given - Provider: Brittany Catalan RN) 2102 (Given - Provider: Katheryn Sharma RN) polyethylene glycol (PEG) 3350 (Miralax) packet 17 g 17 g, Oral, Daily, First dose on Sun12/18/23 at 0900 0814 (Given - Provider: Volodymyr Paul RN) 0806 (Given - Provider: Volodymyr Paul RN) 0900 (Given - Provider: Ajit Razo RN) pravastatin (Pravachol) tablet 80 mg 80 mg, Oral, Daily, First dose on Cata 12/13/23 at 0900 0814 (Given - Provider: Volodymyr Paul RN) 08 (Given - Provider: Volodymyr Paul RN) 0832 (Given - Provider: Ajit Razo RN) rivaroxaban (Xarelto) tablet 20 mg 20 mg, Oral, Daily with breakfast, First dose on 12/22/23 at 0800, Anticoagulant! Best administered with food or immediately before tube feedings. If ordered via NG or G-tube route, crush and mix with 50 mL water; give within 4 hours of mixing. 0814 (Given - Provider: Volodymyr Paul RN) 0806 (Given - Provider: Volodymyr Paul RN) 0832 (Given - Provider: Ajit Razo RN) sennosides (Senokot) tablet 8.6 mg 8.6 mg (1 tablet), Oral, Nightly, First dose on 12/16/23 at 2100 2029 (Given - Provider: Brittany Catalan RN) 2102 (Given - Provider: Katheryn Sharma, RN) stomahesive in petrolatum (ET Mix) Topical, Every 8 hours, First dose on Cata 12/13/23 at 1130 0611 (Given - Provider: Brittany Catalan RN)1130 (Given - Provider: Volodymyr Paul RN)2028 (Given - Provider: Brittany Catalan RN) 0502 (Given - Provider: Brittany Catalan RN)1245 (Given - Provider: Volodymyr Palu RN)210 (Given - Provider: Katheryn Sharma RN) 0513 (Given - Provider: Katheryn Sharma RN)1156 (Given - Provider: Ajit Razo RN) venlafaxine XR (Effexor XR) 24 hr capsule 150 mg 150 mg, Oral, Daily with breakfast, First dose on Sun12/17/23 at 0800, Capsule may be swallowed whole, or may be opened and its contents sprinkled on applesauce if consumed immediately without chewing. Do not crush or chew. 0814 (Given - Provider: Volodymyr Paul RN) 0806 (Given - Provider: Volodymyr Paul RN) 1008 (Given - Provider: Ajit Razo RN) venlafaxine XR (Effexor XR) 24 hr capsule 75 mg 75 mg, Oral, Nightly, First dose on 12/16/23 at 2100, Capsule may be swallowed whole, or may be opened and its contents sprinkled on applesauce if consumed immediately without chewing. Do not crush or chew. 2127 (Given - Provider: Brittany Catalan RN) 2104 (Given - Provider: Katheryn Sharma, RN) PRN Medication Order 12/22/2023 12/23/2023 12/24/2023 dextrose 5 % infusion 100 mL/hr, IntraVENous, PRN, Blood sugar less than 70mg/dL, Starting on Sun12/14/23 at 1056, Start infusion following administration of dextrose 50% or glucagon. dextrose 50 % solution 12.5 g 12.5 g, IntraVENous, PRN, low blood sugar, Blood glucose less than 70 mg/dL and patient NOT ALERT or NPO., Starting on Sun12/13/23 at 0302, If patient does not respond within 5 minutes, repeat dose x1. Start D5W at 100 mL/hour until ordering provider can be reached. Repeat blood glucose in 15 minutes. If blood glucose is less than 70 mg/dL, repeat treatment and recheck blood glucose in 15 minutes x2. If using Glucostabilizer, dose as instructed per system. famotidine (Pepcid) tablet 20 mg 20 mg, Oral, 2 times daily PRN, heartburn, heartburn, Starting on Sun12/23/23 at 0803 0813 (Given - Provider: Volodymyr Paul RN) glucagon (human recombinant) injection 1 mg 1 mg, IntraMUSCular, PRN, low blood sugar, Blood glucose less than 70 mg/dL and patient NOT ALERT or NPO and does not have IV access., Starting on Sun12/14/23 at 1056, After administration, attempt intravenous access and start D5W at 100 mL/hr. Repeat blood glucose in 15 minutes x2 and notify provider. glucose oral gel 15 g 15 g, Oral, As needed, low blood sugar, Starting on Sun12/13/23 at 0302, If blood glucose less than 50 mg/dL and patient ALERT and NOT NPO, give 2 tubes glucose gel. If blood glucose less than 70 mg/dL and patient ALERT and NOT NPO, give 1 tube glucose gel. Repeat blood glucose in 15 minutes. If blood glucose is less than 70 mg/dL, repeat treatment and recheck blood glucose in 15 minutes x2 and notify provider. glucose oral gel 15 g 15 g, Oral, As needed, low blood sugar, Starting on Sun12/14/23 at 1056, If blood glucose less than 50 mg/dL and patient ALERT and NOT NPO, give 2 tubes glucose gel. If blood glucose less than 70 mg/dL and patient ALERT and NOT NPO, give 1 tube glucose gel. Repeat blood glucose in 15 minutes. If blood glucose is less than 70 mg/dL, repeat treatment and recheck blood glucose in 15 minutes x2 and notify provider. hydrALAZINE (Apresoline) injection 10 mg 10 mg, IntraVENous, Every 4 hours PRN, high blood pressure, Starting on Sun12/17/23 at 1150, 2nd line Administer for SBP >150. Hold for HR >100. 0832 (Given - Provider: Ajit Razo RN) ipratropium-albuterol (Duo-Neb) 0.5-2.5 mg/3 mL nebulizer solution 3 mL 3 mL, Nebulization, 2 times daily PRN, wheezing, Starting on 12/15/23 at 0845, For Bronchospasm. Consider with ACCUPAP/ESPAP if indicated. labetalol (Normodyne,Trandate) injection 10 mg 10 mg, IntraVENous, Every 4 hours PRN, high blood pressure, Starting on 12/17/23 at 1151, 1st line Administer for SBP >150. Hold for HR <60. naloxone (Narcan) injection 0.4 mg 0.4 mg, IntraVENous, As needed, opioid reversal, pinpoint pupils, Starting on Cata 12/13/23 at 0304, administer IV PRN for oversedation, RR LESS than 10 ondansetron (Zofran) injection 4 mg(Linked Group 2) 4 mg, IntraVENous, Every 6 hours PRN, nausea, vomiting, Starting on Cata 12/13/23 at 0252, 1st Line. Give IV if patient is unable to take orally. If inadequate response within 60 minutes, proceed to next-line agent or contact provider if no further options ordered. 2206 (Given - Provider: Brittany Catalan RN) 0833 (See Alternative - Provider: Ajit Razo RN) ondansetron ODT (Zofran-ODT) disintegrating tablet 4 mg(Linked Group 2) 4 mg, Oral, Every 8 hours PRN, nausea, vomiting, Starting on Cata 12/13/23 at 0252, 1st Line. If inadequate response within 60 minutes, proceed to next-line agent or contact provider if no further options ordered. Patient should allow tablet to dissolve on tongue. Do not remove from blister pack until just before administering. 2206 (See Alternative - Provider: Brittany Catalan RN) 0833 (Given - Provider: Ajit Razo RN) oxyCODONE (Roxicodone) immediate release tablet 10 mg(Linked Group 3) 10 mg, Oral, Every 6 hours PRN, severe pain (7-10), Starting on Cata 12/13/23 at 0256, Use first if Tolerating PO and pain is not acute. 2030 (Given - Provider: Brittany Catalan RN) 002 (Given - Provider: Katheryn Sharma, RN)0637 (Given - Provider: Katheryn Sharma, RN) oxyCODONE (Roxicodone) immediate release tablet 5 mg(Linked Group 3) 5 mg, Oral, Every 6 hours PRN, moderate pain (4-6), Starting on Sun12/13/23 at 0256, Use first if patient is tolerating PO and pain is not acute. May repeat times one, no sooner than 60 minutes if no relief. 2029 (See Alternative - Provider: Brittany Catalan RN) 002 (See Alternative - Provider: Katheryn Sharma, RN)0637 (See Alternative - Provider: Katheryn Sharma, RN) polyethylene glycol (PEG) 3350 (Miralax) packet 17 g 17 g, Oral, Daily PRN, constipation, Starting on Sun12/13/23 at 0252, 1st line for treatment of constipation - give scheduled if no bowel movement in past 24 hours. sodium chloride 3 % hypertonic nebulizer solution 4 mL 4 mL, Nebulization, PRN, cough, Starting on Sun12/14/23 at 1059 stomahesive in petrolatum (ET Mix) Topical, As needed, dry skin, Starting on Sun12/13/23 at 1128 traZODone (Desyrel) tablet 50 mg 50 mg, Oral, Nightly PRN, sleep, Starting on Sun12/14/23 at 1517 2029 (Given - Provider: Brittany Catalan RN) 210 (Given - Provider: Katheryn Sharma, RN) Linked Groups Order Group 1: Insulin Lispro (Humalog) injection 0-18 UnitsJump to med 0-18 Units, SubCUTAneous, 3 times daily with meals, First dose on Sun12/14/23 at 1700, High Dose Correction Algorithm Glucose: Dose: LESS than 139 No Insulin 140-199 3 Unit 200-249 6 Units 250-299 9 Units 300-349 12 Units 350-400 15 Units Above 400 18 Units And Insulin Lispro (Humalog) injection 0-18 UnitsJump to med 0-18 Units, SubCUTAneous, Nightly, First dose on Sun12/14/23 at 2100, If continuous tube feedings/TPN/NPO, give correction dose based on result, no reduction in dose. If eating or bolus tube feeding: High Dose Correction Algorithm Glucose: Dose: LESS than 139 No Insulin 140-199 3 Unit 200-249 6 Units 250-299 9 Units 300-349 12 Units 350-400 15 Units Above 400 18 Units Group 2: ondansetron ODT (Zofran-ODT) disintegrating tablet 4 mgJump to med 4 mg, Oral, Every 8 hours PRN, nausea, vomiting, Starting on Cata 12/13/23 at 0252, 1st Line. If inadequate response within 60 minutes, proceed to next-line agent or contact provider if no further options ordered. Patient should allow tablet to dissolve on tongue. Do not remove from blister pack until just before administering. Or ondansetron (Zofran) injection 4 mgJump to med 4 mg, IntraVENous, Every 6 hours PRN, nausea, vomiting, Starting on Cata 12/13/23 at 0252, 1st Line. Give IV if patient is unable to take orally. If inadequate response within 60 minutes, proceed to next-line agent or contact provider if no further options ordered. Group 3: oxyCODONE (Roxicodone) immediate release tablet 5 mgJump to med 5 mg, Oral, Every 6 hours PRN, moderate pain (4-6), Starting on Cata 12/13/23 at 0256, Use first if patient is tolerating PO and pain is not acute. May repeat times one, no sooner than 60 minutes if no relief. Or oxyCODONE (Roxicodone) immediate release tablet 10 mgJump to med 10 mg, Oral, Every 6 hours PRN, severe pain (7-10), Starting on Cata 12/13/23 at 0256, Use first if Tolerating PO and pain is not acute. Scheduled Medication Order 01/13/2024 01/14/2024 01/15/2024 cefTRIAXone (Rocephin) 1,000 mg in sodium chloride 0.9 % 50 mL IVPB Mini-Bag Plus (CANCELED) 1,000 mg, IntraVENous, at 100 mL/hr, Administer over 30 Minutes, Every 24 hours, First dose on 01/12/24 at 0100, Mini-Bag Plus bag, Suspected Indication (Select all that apply): Urinary Tract Infection 0122 (New Bag - Provider: Rick Galarza RN)0152 (Stopped - Provider: Rick Galarza RN) 0150 (New Bag - Provider: Rick Galarza RN)0220 (Stopped - Provider: Rick Galarza RN) 0058 (New Bag - Provider: Dona Perdue, TYLER)0128 (Stopped - Provider: Dona Perdue, TYLER) cyanocobalamin (Vitamin B-12) tablet 500 mcg 500 mcg, Oral, Daily, First dose on Sun01/11/24 at 0900 0836 (Given - Provider: Cristian Pryor RN) 0850 (Given - Provider: Maya Mejia, TYLER) 0853 (Given - Provider: Kassidy Dumont, TYLER) fenofibrate (Tricor) tablet 54 mg 54 mg, Oral, Daily, First dose on Sun01/11/24 at 0900, Substituted for Fenofibrate (Non-Formulary Dose). 0837 (Given - Provider: Cristian Pryor RN) 0852 (Given - Provider: Maya Mejia RN) 0852 (Given - Provider: Kassidy Dumont, TYLER) folic acid (Folvite) tablet 1 mg 1 mg, Oral, Daily, First dose on Sun01/11/24 at 0900 0836 (Given - Provider: Cristian Pryor RN) 0850 (Given - Provider: Maya Mejia, TYLER) 0853 (Given - Provider: Kassidy Dumont, TYLER) insulin glargine (Lantus) injection 13 Units 13 Units, SubCUTAneous, 2 times daily, First dose on Sun01/11/24 at 0900 0835 (Given - Provider: Cristian Pryor RN)2024 (Given - Provider: Rick Galarza RN) 0904 (Given - Provider: Maya Mejia, TYLER)2037 (Given - Provider: Dona Perdue, TYLER) 0853 (Given - Provider: Kassidy Dumont, TYLER) Insulin Lispro (Humalog) injection 0-6 Units(Linked Group 1) 0-6 Units, SubCUTAneous, 3 times daily with meals, First dose on Sun01/11/24 at 0800, Low Dose Correction Algorithm Glucose: Dose: LESS than 139 No Insulin 140-199 1 Unit 200-249 2 Units 250-299 3 Units 300-349 4 Units 350-400 5 Units Above 400 6 Units 0800 (Not Given - Provider: Cristian Pryor RN - Reason: Order parameters not met)1200 (Not Given - Provider: Cristian Pryor RN - Reason: Order parameters not met)1700 (Not Given - Provider: Cristian Pryor RN - Reason: Order parameters not met) 1010 (Given - Provider: Maya Mejia RN)1200 (Not Given - Provider: Maya Mejia RN - Reason: Order parameters not met)1849 (Given - Provider: Maya Mejia RN) 0800 (Not Given - Provider: Kassidy Dumont RN - Reason: Order parameters not met)1200 (Not Given - Provider: Kassidy Dumont RN - Reason: Order parameters not met)1700 (Canceled Entry - Provider: Automatic Discharge Provider - Comment: Automatically canceled at discontinue of medication order) Insulin Lispro (Humalog) injection 0-6 Units(Linked Group 1) 0-6 Units, SubCUTAneous, Nightly, First dose on Sun01/11/24 at 2100, If continuous tube feedings/TPN/NPO, give correction dose based on result, no reduction in dose. If eating or bolus tube feeding: Low Dose Correction Algorithm Glucose: Dose: LESS than 139 No Insulin 140-199 1 Unit 200-249 2 Units 250-299 3 Units 300-349 4 Units 350-400 5 Units Above 400 6 Units 2100 (Not Given - Provider: Rick Galarza RN - Reason: Order parameters not met) 2100 (Not Given - Provider: Dona Perdue RN - Reason: Order parameters not met) losartan (Cozaar) tablet 25 mg 25 mg, Oral, Daily, First dose on Sun01/11/24 at 0900, Indications: Hypertension 0835 (Given - Provider: Cristian Pryor RN) 0850 (Given - Provider: Maya Mejia RN) 0853 (Given - Provider: Kassidy Dumont, TYLER) magnesium oxide (Mag-Ox) tablet 400 mg 400 mg, Oral, 2 times daily, First dose on Sun01/11/24 at 0900 0835 (Given - Provider: Cristian Pryor RN)202 (Given - Provider: Rick Galarza RN) 0850 (Given - Provider: Maya Mejia, TYLER)2011 (Given - Provider: Dona Perdue, RN) 0853 (Given - Provider: Kassidy Dumont, RN) melatonin tablet 5 mg 5 mg, Oral, Nightly, First dose on Sun01/11/24 at 2099 2025 (Given - Provider: Rick Galarza RN) 2011 (Given - Provider: Dona Perdue, TYLER) pravastatin (Pravachol) tablet 80 mg 80 mg, Oral, Daily, First dose on Sun01/11/24 at 0900 0836 (Given - Provider: Cristian Pryor, TYLER) 0852 (Given - Provider: Maya Mejia, TYLER) 0852 (Given - Provider: Kassidy Dumont, RN) rivaroxaban (Xarelto) tablet 20 mg 20 mg, Oral, Daily with breakfast, First dose on Sun01/11/24 at 0800, Anticoagulant! Best administered with food or immediately before tube feedings. If ordered via NG or G-tube route, crush and mix with 50 mL water; give within 4 hours of mixing. 0837 (Given - Provider: Cristian Pryor RN) 0851 (Given - Provider: Maya Mejia, TYLER) 0852 (Given - Provider: Kassidy Dumont, TYLER) sennosides (Senokot) tablet 8.6 mg 8.6 mg (1 tablet), Oral, Nightly, First dose on Sun01/11/24 at 2099 2025 (Given - Provider: Rick Galarza RN) 2011 (Given - Provider: Dona Perdue, TYLER) stomahesive in petrolatum (ET Mix) Topical, Every 8 hours, First dose on Sun01/11/24 at 1230, Sacrum: PREVENTION - Clean with soap and water, apply ET mix then leave JUMP IRON MACHINE PRESSER TID 0547 (Given - Provider: Rick Galarza RN)1206 (Given - Provider: Cristian Pryor RN)2034 (Given - Provider: Rick Galarza RN) 0430 (Not Given - Provider: Rick Galarza RN - Reason: Other - Comment: asleep)1230 (Given - Provider: Maya Mejia RN)2013 (Given - Provider: Dona Perdue RN) 0520 (Given - Provider: Dona Perdue RN)1230 (Not Given - Provider: Kassidy Dumont RN - Reason: Patient/family refused) venlafaxine XR (Effexor XR) 24 hr capsule 150 mg 150 mg, Oral, Daily with breakfast, First dose on Sun01/11/24 at 0800, Capsule may be swallowed whole, or may be opened and its contents sprinkled on applesauce if consumed immediately without chewing. Do not crush or chew. 37 (Given - Provider: Cristian Pryor RN) 0852 (Given - Provider: Maya Mejia RN) 0852 (Given - Provider: Kassidy Dumont, TYLER) venlafaxine XR (Effexor XR) 24 hr capsule 75 mg 75 mg, Oral, Nightly, First dose on Sun01/11/24 at 2100, Capsule may be swallowed whole, or may be opened and its contents sprinkled on applesauce if consumed immediately without chewing. Do not crush or chew. 2035 (Given - Provider: Rick Galarza RN) 2011 (Given - Provider: Dona Perdue RN) PRN Medication Order 01/13/2024 01/14/2024 01/15/2024 acetaminophen (Tylenol) suppository 650 mg(Linked Group 2) 650 mg, Rectal, Every 6 hours PRN, mild pain (1-3), fever, For temp greater than 100.4 F (38 C), Starting on Sun01/11/24 at 0325, Administer if oral route cannot be used. Maximum dose of acetaminophen is 4000 mg from all sources in 24 hours. acetaminophen (Tylenol) tablet 650 mg(Linked Group 2) 650 mg, Oral, Every 6 hours PRN, mild pain (1-3), fever, For temp greater than 100.4 F (38 C), Starting on Sun01/11/24 at 0325, Maximum dose of acetaminophen is 4000 mg from all sources in 24 hours. dextrose 5 % infusion 100 mL/hr, IntraVENous, PRN, Blood sugar less than 70mg/dL, Starting on Sun01/11/24 at 0325, Start infusion following administration of dextrose 50% or glucagon. dextrose 50 % solution 12.5 g 12.5 g, IntraVENous, PRN, low blood sugar, Blood glucose less than 70 mg/dL and patient NOT ALERT or NPO., Starting on Sun01/11/24 at 0325, If patient does not respond within 5 minutes, repeat dose x1. Start D5W at 100 mL/hour until ordering provider can be reached. Repeat blood glucose in 15 minutes. If blood glucose is less than 70 mg/dL, repeat treatment and recheck blood glucose in 15 minutes x2. If using Glucostabilizer, dose as instructed per system. famotidine (Pepcid) tablet 20 mg 20 mg, Oral, 2 times daily PRN, heartburn, heartburn, Starting on Sun01/11/24 at 0325 glucagon (human recombinant) injection 1 mg 1 mg, IntraMUSCular, PRN, low blood sugar, Blood glucose less than 70 mg/dL and patient NOT ALERT or NPO and does not have IV access., Starting on Sun01/11/24 at 324, After administration, attempt intravenous access and start D5W at 100 mL/hr. Repeat blood glucose in 15 minutes x2 and notify provider. glucose oral gel 15 g 15 g, Oral, As needed, low blood sugar, Starting on Sun01/11/24 at 0325, If blood glucose less than 50 mg/dL and patient ALERT and NOT NPO, give 2 tubes glucose gel. If blood glucose less than 70 mg/dL and patient ALERT and NOT NPO, give 1 tube glucose gel. Repeat blood glucose in 15 minutes. If blood glucose is less than 70 mg/dL, repeat treatment and recheck blood glucose in 15 minutes x2 and notify provider. ipratropium-albuterol (Duo-Neb) 0.5-2.5 mg/3 mL nebulizer solution 3 mL 3 mL, Nebulization, 2 times daily PRN, wheezing, Starting on Sun01/11/24 at 0325 ondansetron (Zofran) injection 4 mg(Linked Group 3) 4 mg, IntraVENous, Every 6 hours PRN, nausea, vomiting, Starting on Sun01/11/24 at 0325, 1st Line. Give IV if patient is unable to take orally. If inadequate response within 60 minutes, proceed to next-line agent or contact provider if no further options ordered. ondansetron ODT (Zofran-ODT) disintegrating tablet 4 mg(Linked Group 3) 4 mg, Oral, Every 8 hours PRN, nausea, vomiting, Starting on Sun01/11/24 at 0325, 1st Line. If inadequate response within 60 minutes, proceed to next-line agent or contact provider if no further options ordered. Patient should allow tablet to dissolve on tongue. Do not remove from blister pack until just before administering. polyethylene glycol (PEG) 3350 (Miralax) packet 17 g 17 g, Oral, Daily PRN, constipation, Starting on Sun01/11/24 at 0325, 1st line for treatment of constipation - give scheduled if no bowel movement in past 24 hours. QUEtiapine (SEROquel) tablet 12.5 mg 12.5 mg, Oral, Every 8 hours PRN, agitation/anxiety, Starting on Sun01/11/24 at 1735 1206 (Given - Provider: Cristian Pryor, RN) traZODone (Desyrel) tablet 50 mg 50 mg, Oral, Nightly PRN, sleep, Starting on Sun01/11/24 at 0325 2305 (Given - Provider: Rick Galarza RN) Linked Groups Order Group 1: Insulin Lispro (Humalog) injection 0-6 UnitsJump to med 0-6 Units, SubCUTAneous, 3 times daily with meals, First dose on Sun01/11/24 at 0800, Low Dose Correction Algorithm Glucose: Dose: LESS than 139 No Insulin 140- 199 1 Unit 200-249 2 Units 250-299 3 Units 300-349 4 Units 350-400 5 Units Above 400 6 Units And Insulin Lispro (Humalog) injection 0-6 UnitsJump to med 0-6 Units, SubCUTAneous, Nightly, First dose on Sun01/11/24 at 2100, If continuous tube feedings/TPN/NPO, give correction dose based on result, no reduction in dose. If eating or bolus tube feeding: Low Dose Correction Algorithm Glucose: Dose: LESS than 139 No Insulin 140-199 1 Unit 200-249 2 Units 250-299 3 Units 300-349 4 Units 350-400 5 Units Above 400 6 Units Group 2: acetaminophen (Tylenol) tablet 650 mgJump to med 650 mg, Oral, Every 6 hours PRN, mild pain (1-3), fever, For temp greater than 100.4 F (38 C), Starting on Sun01/11/24 at 0325, Maximum dose of acetaminophen is 4000 mg from all sources in 24 hours. Or acetaminophen (Tylenol) suppository 650 mgJump to med 650 mg, Rectal, Every 6 hours PRN, mild pain (1-3), fever, For temp greater than 100.4 F (38 C), Starting on Sun01/11/24 at 0325, Administer if oral route cannot be used. Maximum dose of acetaminophen is 4000 mg from all sources in 24 hours. Group 3: ondansetron ODT (Zofran-ODT) disintegrating tablet 4 mgJump to med 4 mg, Oral, Every 8 hours PRN, nausea, vomiting, Starting on Sun01/11/24 at 0325, 1st Line. If inadequate response within 60 minutes, proceed to next-line agent or contact provider if no further options ordered. Patient should allow tablet to dissolve on tongue. Do not remove from blister pack until just before administering. Or ondansetron (Zofran) injection 4 mgJump to med 4 mg, IntraVENous, Every 6 hours PRN, nausea, vomiting, Starting on Sun01/11/24 at 0325, 1st Line. Give IV if patient is unable to take orally. If inadequate response within 60 minutes, proceed to next-line agent or contact provider if no further options ordered. Scheduled Medication Order 10/20/2024 10/21/2024 10/22/2024 cefTRIAXone (Rocephin) 1,000 mg in sodium chloride 0.9 % 50 mL IVPB Mini-Bag Plus (CANCELED) 1,000 mg, IntraVENous, at 100 mL/hr, Administer over 30 Minutes, Every 24 hours, First dose on Sun10/19/24 at 2130, For 4 doses, Mini-Bag Plus bag, Suspected Indication (Select all that apply): Urinary Tract Infection 2033 (New Bag - Provider: Shakir Hutchison LPN)2103 (Stopped - Provider: Shakir Hutchison LPN) 2230 (New Bag - Provider: Elizabeth Nguyen RN)230 (Stopped - Provider: Elizabeth Nguyen RN) cephalexin (Keflex) capsule 500 mg 500 mg, Oral, 2 times daily, First dose on Sun10/22/24 at 1630, Suspected Indication (Select all that apply): Urinary Tract Infection 171 (Given - Provid er: Shanel Rodney RN) cholecalciferol (Vitamin D-3) tablet 1,000 Units 1,000 Units, Oral, Daily, First dose on Sun10/22/24 at 1215 1244 (Given - Provid er: Shanel Rodney, RN) cyanocobalamin (Vitamin B-12) tablet 500 mcg 500 mcg, Oral, Daily, First dose on Sun10/19/24 at 0900 0859 (Given - Provider: Funmilayo Atkins RN) 0858 (Given - Provider: Funmilayo Atkins RN) 0914 (Given - Provider: Shanel Rodney, RN) insulin glargine (Lantus) injection 12 Units 12 Units, SubCUTAneous, Every morning, First dose on Sun10/21/24 at 1200 1212 (Given - Provider: Funmilayo Atkins RN) 0913 (Given - Provider: Shanel Rodney, RN) Insulin Lispro (Humalog) injection 0-5 Units(Linked Group 1) 0-5 Units, SubCUTAneous, 4 times daily before meals & nightly, First dose (after last modification) on Sun10/20/24 at 1700, Low Dose Correction Algorithm Glucose: Dose: LESS than 150 No Insulin 150-199 0 Unit 200-249 1 Units 250-299 2 Units 300-349 3 Units 350-400 4 Units Above 400 5 Units 1650 (Given - Provider: Funmilayo Atkins RN)2034 (Given - Provider: Shakir Hutchison LPN) 0859 (Given - Provider: Funmilayo Atkins RN)1211 (Given - Provider: Funmilayo Atkins RN)1809 (Given - Provider: Funmilayo Atkins RN)2100 (Not Given - Provider: Elizabeth Nguyen RN - Reason: Order parameters not met) 0800 (Not Given - Provider: Shanel Rodney RN - Reason: Order parameters not met)1244 (Given - Provider: Shanel Rodney, TYLER)1700 (Not Given - Provider: Shanel Rodney, RN - Reason: Order parameters not met)2100 (Canceled Entry - Provider: Automatic Discharge Provider - Comment: Automatically canceled at discontinue of medication order) Insulin Lispro (Humalog) injection 0-6 Units (CANCELED) 0-6 Units, SubCUTAneous, 3 times daily with meals, First dose on Sun10/19/24 at 0800, Low Dose Correction Algorithm Glucose: Dose: LESS than 150 No Insulin 150-199 1 Unit 200-249 2 Units 250-299 3 Units 300-349 4 Units 350-400 5 Units Above 400 6 Units 0800 (Not Given - Provider: Funmilayo Atkins RN - Reason: Order parameters not met)1206 (Given - Provider: Funmilayo Atkins RN) Insulin Lispro (Humalog) injection 4 Units 4 Units, SubCUTAneous, 3 times daily with meals, First dose on Sun10/21/24 at 1200 1214 (Given - Provider: Funmilayo Atkins RN)1813 (Given - Provider: Funmilayo Atkins RN) 0913 (Given - Provider: Shanel Rodney RN)1244 (Given - Provider: Shanel Rodney RN)1719 (Given - Provider: Shanel Rodney, RN) losartan (Cozaar) tablet 25 mg 25 mg, Oral, Daily, First dose on Sun10/19/24 at 0900, Indications: Hypertension 0900 (Given - Provider: Funmilayo Atkins RN) 0859 (Given - Provider: Funmilayo Atkins RN) 0914 (Given - Provider: Shanel Rodney, TYLER) magnesium oxide (Mag-Ox) tablet 400 mg 400 mg, Oral, 2 times daily, First dose on 10/18/24 at 2345 0859 (Given - Provider: Funmilayo Atkins RN)2033 (Given - Provider: Shakir Hutchison LPN) 0859 (Given - Provider: Funmilayo Atkins RN)2012 (Given - Provider: Elizabeth Nguyen RN) 0914 (Given - Provider: Shanel Rodney RN)2100 (Canceled Entry - Provider: Automatic Discharge Provider - Comment: Automatically canceled at discontinue of medication order) melatonin tablet 5 mg 5 mg, Oral, Nightly, First dose on 10/18/24 at 2345 2034 (Given - Provider: Shakir Hutchison LPN) 2012 (Given - Provider: Elizabeth Nguyen RN) 2100 (Canceled Entry - Provider: Automatic Discharge Provider - Comment: Automatically canceled at discontinue of medication order) nicotine (Nicoderm, Step 2) 14 MG/24HR patch 1 patch(Linked Group 2) 1 patch, TransDERmal, Administer over 24 Hours, Daily, First dose on Sun10/20/24 at 1800, For 42 days, Apply new patch to nonhairy, clean, dry skin on the upper body or upper outer arm. Rotate patch sites. Notify Pharmacy if patient or provider prefers patch to be removed at bedtime and replaced in the morning. 1829 (Medication Applied - Provider: Funmilayo Atkins RN) 0859 (Medication Removed - Provider: Funmilayo Atkins RN)0903 (Medication Applied - Provider: Funmilayo Atkins RN) 0914 (Medication Removed - Provider: Shanel Rodney RN)0916 (Medication Applied - Provider: Shanel Rodney, TYLER)2121 (Due: Medication Removed - Provider: Automatic Discharge Provider - Comment: Time automatically adjusted from order being discontinued) nicotine (Nicoderm, Step 3) 7 MG/24HR patch 1 patch(Linked Group 2) 1 patch, TransDERmal, Administer over 24 Hours, Daily, First dose on Sun12/01/24 at 0900, For 14 days, Apply new patch to nonhairy, clean, dry skin on the upper body or upper outer arm. Rotate patch sites. Notify Pharmacy if patient or provider prefers patch to be removed at bedtime and replaced in the morning. pravastatin (Pravachol) tablet 80 mg 80 mg, Oral, Daily, First dose on Sun10/19/24 at 0900 0859 (Given - Provider: Funmilayo Atkins RN) 0859 (Given - Provider: Funmilayo Atkins RN) 0900 (Given - Provider: Shanel Rodney, TYLER) rivaroxaban (Xarelto) tablet 20 mg 20 mg, Oral, Daily with breakfast, First dose on Sun10/19/24 at 0800, Anticoagulant! Best administered with food or immediately before tube feedings. If ordered via NG or G-tube route, crush and mix with 50 mL water; give within 4 hours of mixing. 0859 (Given - Provider: Funmilayo Atkins RN) 0900 (Given - Provider: Funmilayo Atkins RN) 0925 (Given - Provider: Shanel Rodney, TYLER) sennosides (Senokot) tablet 8.6 mg 8.6 mg (1 tablet), Oral, 2 times daily, First dose (after last modification) on Sun10/21/24 at 2100 2023 (Given - Provider: Elizabeth Nguyen RN) 0915 (Given - Provider: Shanel Rodney RN)2099 (Canceled Entry - Provider: Automatic Discharge Provider - Comment: Automatically canceled at discontinue of medication order) stomahesive in petrolatum (ET Mix) Topical, Every 8 hours, First dose on Sun10/20/24 at 1130, Sacrum: Pressure Injury (DTI) - Clean with soap and water, apply ET mix then leave ESTELITA TID and PRN Right buttock: Pressure Injury (Stage 3) - Clean with soap and water, apply ET mix then leave ESTELITA TID and PRN 1550 (Given - Provider: Funmilayo Atkins RN)1930 (Given - Provider: Shakir Hutchison LPN) 0330 (Given - Provider: Shakir Hutchison LPN)121 (Given - Provider: Funmilayo Atkins RN)2008 (Given - Provider: Elizabeth Nguyen RN) 09 (Given - Provider: Shanel Rodney RN)185 (Given - Provider: Shanel Rodney RN) venlafaxine XR (Effexor XR) 24 hr capsule 150 mg (CANCELED) 150 mg, Oral, Daily with breakfast, First dose on Sun10/19/24 at 0800, Capsule may be swallowed whole, or may be opened and its contents sprinkled on applesauce if consumed immediately without chewing. Do not crush or chew. 0904 (Given - Provider: Funmilayo Atkins RN) 0901 (Given - Provider: Funmilayo Atkins RN) venlafaxine XR (Effexor XR) 24 hr capsule 225 mg 225 mg, Oral, Daily with breakfast, First dose (after last modification) on Sun10/22/24 at 0800, Capsule may be swallowed whole, or may be opened and its contents sprinkled on applesauce if consumed immediately without chewing. Do not crush or chew. 0914 (Given - Provid er: Shanel Rodney RN) venlafaxine XR (Effexor XR) 24 hr capsule 75 mg (CANCELED) 75 mg, Oral, Nightly, First dose on 10/18/24 at 2345, Capsule may be swallowed whole, or may be opened and its contents sprinkled on applesauce if consumed immediately without chewing. Do not crush or chew. 2033 (Given - Provider: Shakir Hutchison LPN) Continuous Medication Order 10/20/2024 10/21/2024 10/22/2024 dextrose 5 % and sodium chloride 0.45 % infusion (CANCELED) 100 mL/hr, IntraVENous, Continuous, Starting on 10/19/24 at 0900 0858 (Restarted - Provider: Funmilayo Atkins RN)1209 (Restarted - Provider: Funmilayo Atkins RN)1255 (Rate/Dose Verify - Provider: Funmilayo Atkins RN)1256 (Rate/Dose Verify - Provider: Funmilayo Atkins RN)1257 (Rate/Dose Verify - Provider: Funmilayo Atkins RN)1548 (New Bag - Provider: Funmilayo Atkins RN)1811 (Rate/Dose Verify - Provider: Funmilayo Atkins RN)2246 (Rate/Dose Verify - Provider: Shakir Hutchison LPN) PRN Medication Order 10/20/2024 10/21/2024 10/22/2024 acetaminophen (Tylenol) suppository 650 mg(Linked Group 3) 650 mg, Rectal, Every 6 hours PRN, fever, For temp greater than 100.4 F (38 C), Starting on 10/18/24 at 2335, Administer if oral route cannot be used. Maximum dose of acetaminophen is 4000 mg from all sources in 24 hours. acetaminophen (Tylenol) tablet 650 mg(Linked Group 3) 650 mg, Oral, Every 6 hours PRN, mild pain (1-3), fever, For temp greater than 100.4 F (38 C), Starting on 10/18/24 at 2335, Maximum dose of acetaminophen is 4000 mg from all sources in 24 hours. dextrose 5 % infusion 100 mL/hr, IntraVENous, PRN, Blood sugar less than 70mg/dL, Starting on 10/18/24 at 2335, Start infusion following administration of dextrose 50% or glucagon. dextrose 50 % solution 12.5 g 12.5 g, IntraVENous, PRN, low blood sugar, Blood glucose less than 70 mg/dL and patient NOT ALERT or NPO., Starting on 10/18/24 at 2335, If patient does not respond within 5 minutes, repeat dose x1. Start D5W at 100 mL/hour until ordering provider can be reached. Repeat blood glucose in 15 minutes. If blood glucose is less than 70 mg/dL, repeat treatment and recheck blood glucose in 15 minutes x2. If using Glucostabilizer, dose as instructed per system. glucagon (human recombinant) injection 1 mg 1 mg, IntraMUSCular, PRN, low blood sugar, Blood glucose less than 70 mg/dL and patient NOT ALERT or NPO and does not have IV access., Starting on 10/18/24 at 2335, After administration, attempt intravenous access and start D5W at 100 mL/hr. Repeat blood glucose in 15 minutes x2 and notify provider. glucose oral gel 15 g 15 g, Oral, As needed, low blood sugar, Starting on 10/18/24 at 2335, If blood glucose less than 50 mg/dL and patient ALERT and NOT NPO, give 2 tubes glucose gel. If blood glucose less than 70 mg/dL and patient ALERT and NOT NPO, give 1 tube glucose gel. Repeat blood glucose in 15 minutes. If blood glucose is less than 70 mg/dL, repeat treatment and recheck blood glucose in 15 minutes x2 and notify provider. haloperidol lactate (Haldol) injection 0.5 mg 0.5 mg, IntraMUSCular, Every 6 hours PRN, agitation, Starting on 10/19/24 at 1456, IM route of administration preferred. Because of the risk of TdP and QT prolongation, ECG monitoring is recommended if haloperidol is given IV ipratropium-albuterol (Duo-Neb) 0.5-2.5 mg/3 mL nebulizer solution 3 mL 3 mL, Nebulization, 2 times daily PRN, wheezing, Starting on 10/18/24 at 2335 ondansetron (Zofran) injection 4 mg(Linked Group 4) 4 mg, IntraVENous, Every 6 hours PRN, nausea, vomiting, Starting on 10/18/24 at 2335, 1st Line. Give IV if patient is unable to take orally. If inadequate response within 60 minutes, proceed to next-line agent or contact provider if no further options ordered. ondansetron ODT (Zofran-ODT) disintegrating tablet 4 mg(Linked Group 4) 4 mg, Oral, Every 8 hours PRN, nausea, vomiting, Starting on 10/18/24 at 2335, 1st Line. If inadequate response within 60 minutes, proceed to next-line agent or contact provider if no further options ordered. Patient should allow tablet to dissolve on tongue. Do not remove from blister pack until just before administering. polyethylene glycol (PEG) 3350 (Miralax) packet 17 g 17 g, Oral, Daily PRN, constipation, Starting on 10/18/24 at 2335, 1st line for treatment of constipation - give scheduled if no bowel movement in past 24 hours. potassium chloride CR (Klor-Con M10) ER tablet 40 mEq 40 mEq, Oral, Daily PRN, Administer daily for serum potassium <3.5, Starting on 10/18/24 at 2335, Best given with food and plenty of water to minimize gastric irritation. Do not crush or chew. stomahesive in petrolatum (ET Mix) Topical, PRN, dry skin, Starting on Sun10/20/24 at 1125, Sacrum: Pressure Injury (DTI) - Clean with soap and water, apply ET mix then leave ESTELITA TID and PRN Right buttock: Pressure Injury (Stage 3) - Clean with soap and water, apply ET mix then leave ESTELITA TID and PRN 0925 (Given - Provider: Funmilayo Atkins RN - Comment: Sacrum) traZODone (Desyrel) tablet 50 mg 50 mg, Oral, Nightly PRN, sleep, Starting on 10/18/24 at 2335 Linked Groups Order Group 1: Insulin Lispro (Humalog) injection 0-5 UnitsJump to med 0-5 Units, SubCUTAneous, 4 times daily before meals & nightly, First dose (after last modification) on Sun10/20/24 at 1700, Low Dose Correction Algorithm Glucose: Dose: LESS than 150 No Insulin 150-199 0 Unit 200-249 1 Units 250-299 2 Units 300-349 3 Units 350-400 4 Units Above 400 5 Units Group 2: nicotine (Nicoderm, Step 2) 14 MG/24HR patch 1 patchJump to med 1 patch, TransDERmal, Administer over 24 Hours, Daily, First dose on Sun10/20/24 at 1800, For 42 days, Apply new patch to nonhairy, clean, dry skin on the upper body or upper outer arm. Rotate patch sites. Notify Pharmacy if patient or provider prefers patch to be removed at bedtime and replaced in the morning. Followed by nicotine (Nicoderm, Step 3) 7 MG/24HR patch 1 patchJump to med 1 patch, TransDERmal, Administer over 24 Hours, Daily, First dose on Sun12/01/24 at 0900, For 14 days, Apply new patch to nonhairy, clean, dry skin on the upper body or upper outer arm. Rotate patch sites. Notify Pharmacy if patient or provider prefers patch to be removed at bedtime and replaced in the morning. Group 3: acetaminophen (Tylenol) tablet 650 mgJump to med 650 mg, Oral, Every 6 hours PRN, mild pain (1-3), fever, For temp greater than 100.4 F (38 C), Starting on 10/18/24 at 2335, Maximum dose of acetaminophen is 4000 mg from all sources in 24 hours. Or acetaminophen (Tylenol) suppository 650 mgJump to med 650 mg, Rectal, Every 6 hours PRN, fever, For temp greater than 100.4 F (38 C), Starting on 10/18/24 at 2335, Administer if oral route cannot be used. Maximum dose of acetaminophen is 4000 mg from all sources in 24 hours. Group 4: ondansetron ODT (Zofran-ODT) disintegrating tablet 4 mgJump to med 4 mg, Oral, Every 8 hours PRN, nausea, vomiting, Starting on 10/18/24 at 2335, 1st Line. If inadequate response within 60 minutes, proceed to next-line agent or contact provider if no further options ordered. Patient should allow tablet to dissolve on tongue. Do not remove from blister pack until just before administering. Or ondansetron (Zofran) injection 4 mgJump to med 4 mg, IntraVENous, Every 6 hours PRN, nausea, vomiting, Starting on 10/18/24 at 2335, 1st Line. Give IV if patient is unable to take orally. If inadequate response within 60 minutes, proceed to next-line agent or contact provider if no further options ordered. Scheduled Medication Order 06/07/2025 06/08/2025 06/09/2025 ascorbic acid (Vitamin C) tablet 1,000 mg 1,000 mg, Oral, Daily, First dose on Sun06/05/25 at 1500 0900 (Given - Provider: Noa May RN) 0839 (Given - Provider: Mireya Lagunas, RN) 0933 (Given - Provider: Linda Stevens, RN) calcium carbonate (Tums) chewable tablet 500 mg 500 mg, Oral, Daily, First dose on Sun06/05/25 at 1545 0859 (Given - Provider: Noa May RN) 0839 (Given - Provider: Mireya Lagunas RN) 0931 (Not Given - Provider: Linda Stevens RN - Reason: Patient/family refused) cefTRIAXone (Rocephin) 1,000 mg in sodium chloride 0.9 % 50 mL IVPB Mini-Bag Plus (CANCELED) 1,000 mg, IntraVENous, at 100 mL/hr, Administer over 30 Minutes, Every 24 hours, First dose on Sun06/06/25 at 1030, Mini-Bag Plus bag, Suspected Indication (Select all that apply): Urinary Tract Infection 1135 (New Bag - Provider: Noa May RN)1224 (Stopped - Provider: Noa May RN) cholecalciferol (Vitamin D-3) tablet 5,000 Units 5,000 Units, Oral, Daily, First dose on Sun06/05/25 at 1500 0859 (Given - Provider: Noa May RN) 0839 (Given - Provider: Mireya Lagunas RN) 0933 (Given - Provider: Linda Stevens, TYLER) cyancobalamin (Vitamin B-12) tablet 2,500 mcg 2,500 mcg, Oral, Daily, First dose on Sun06/05/25 at 1500 0900 (Given - Provider: Noa May RN) 0840 (Given - Provider: Mireya Lagunas RN) 0932 (Given - Provider: Linda Stevens, RN) donepezil (Aricept) tablet 10 mg 10 mg, Oral, Daily, First dose on Sun06/05/25 at 1500 0859 (Given - Provider: Noa May RN) 0839 (Given - Provider: Mireya Lagunas RN) 0933 (Given - Provider: Linda Stevens, RN) fenofibrate (Tricor) tablet 54 mg 54 mg, Oral, Daily, First dose on Sun06/05/25 at 1615 0859 (Given - Provider: Noa May RN) 1012 (Given - Provider: Mireya Lagunas RN) 0932 (Given - Provider: Linda Stevens RN) insulin glargine (Lantus) injection 20 Units 20 Units, SubCUTAneous, Every morning, First dose (after last modification) on Sun06/06/25 at 1500 0900 (Given - Provider: Noa May RN) 0838 (Given - Provider: Mireya Lagunas RN) 0933 (Given - Provider: Linda Stevens RN) Insulin Lispro (Humalog) injection 0-12 Units(Linked Group 1) 0-12 Units, SubCUTAneous, 3 times daily with meals, First dose on Sun06/05/25 at 1700, Medium Dose Correction Algorithm Glucose: Dose: LESS than 150 No Insulin 150-199 2 Units 200-249 4 Units 250-299 6 Units 300-349 8 Units 350-400 10 Units Above 400 12 Units 0755 (Not Given - Provider: Noa May RN - Reason: Order parameters not met)1230 (Given - Provider: Noa May RN)1756 (Given - Provider: Noa May RN) 0748 (Not Given - Provider: Mireya Lagunas RN - Reason: Order parameters not met)1159 (Given - Provider: Mireya Lagunas RN)1722 (Given - Provider: Mireya Lagunas RN) 0920 (Not Given - Provider: Jenni Garrison RN - Reason: Order parameters not met)1228 (Given - Provider: Jenni Garrison RN)1700 (Canceled Entry - Provider: Automatic Discharge Provider - Comment: Automatically canceled at discontinue of medication order) Insulin Lispro (Humalog) injection 0-12 Units(Linked Group 1) 0-12 Units, SubCUTAneous, Nightly, First dose on Sun06/05/25 at 2100, If eating or bolus tube feeding: Medium Dose Correction Algorithm Glucose: Dose: LESS than 150 No Insulin 150-199 2 Units 200-249 4 Units 250-299 6 Units 300-349 8 Units 350-400 10 Units Above 400 12 Units 2117 (Not Given - Provider: Rhianna Yadav RN - Reason: Order parameters not met - Comment: bgt [id number]) 2039 (Not Given - Provider: Srinath Cisneros RN - Reason: Order parameters not met - Comment: bg [id number]) Insulin Lispro (Humalog) injection 8 Units 8 Units, SubCUTAneous, 2 times daily before meals, First dose (after last modification) on Sun06/06/25 at 1600 0818 (Given - Provider: Noa May RN)1756 (Given - Provider: Noa May RN) 0748 (Not Given - Provider: Mireya Lagunas RN - Reason: Order parameters not met)1722 (Given - Provider: Mireya Lagunas RN) 0935 (Given - Provider: Linda Stevens RN - Comment: pt just ate breakfast at this time)1600 (Canceled Entry - Provider: Automatic Discharge Provider - Comment: Automatically canceled at discontinue of medication order) losartan (Cozaar) tablet 25 mg 25 mg, Oral, Daily, First dose on Sun06/05/25 at 1615, Indications: Hypertension 0859 (Given - Provider: Noa May RN) 0840 (Given - Provider: Mireya Lagunas RN) 0932 (Given - Provider: Linda Stevens RN) magnesium oxide (Mag-Ox) tablet 400 mg 400 mg, Oral, 2 times daily, First dose on Sun06/05/25 at 2100 0900 (Given - Provider: Noa May RN)2120 (Given - Provider: Rhianna Yadav RN) 0840 (Given - Provider: Mireya Lagunas RN)2040 (Given - Provider: Srinath Cisneros RN) 0932 (Given - Provider: Linda Stevens RN) melatonin tablet 5 mg 5 mg, Oral, Nightly, First dose on Sun06/05/25 at 2100 212 (Given - Provider: Rhianna Yadav, TYLER) 2040 (Given - Provider: Srinath Cisneros, TYLER) nystatin (Mycostatin) ointment Topical, 2 times daily, First dose on Sun06/06/25 at 0330, Under breast 0859 (Given - Provider: Noa May RN)2120 (Given - Provider: Rhianna Yadav, TYLER) 0842 (Given - Provider: Mireya Lagunas RN)2043 (Given - Provider: Srinath Cisneros RN) 0932 (Given - Provider: Linda Stevens, TYLER) pravastatin (Pravachol) tablet 80 mg 80 mg, Oral, Daily, First dose on Sun06/05/25 at 1500 0859 (Given - Provider: Noa May RN) 0839 (Given - Provider: Mireya Lagunas RN) 0933 (Given - Provider: Linda Stevens, RN) rivaroxaban (Xarelto) tablet 20 mg 20 mg, Oral, Daily with breakfast, First dose on 06/06/25 at 0800, Anticoagulant! Best administered with food or immediately before tube feedings. If ordered via NG or G-tube route, crush and mix with 50 mL water; give within 4 hours of mixing. 0859 (Given - Provider: Noa May RN) 0839 (Given - Provider: Mireya Lagunas RN) 0933 (Given - Provider: Linda Stevens RN) venlafaxine XR (Effexor XR) 24 hr capsule 150 mg 150 mg, Oral, Daily with breakfast, First dose on 06/06/25 at 0800, Capsule may be swallowed whole, or may be opened and its contents sprinkled on applesauce if consumed immediately without chewing. Do not crush or chew. 0859 (Given - Provider: Noa May RN) 1012 (Given - Provider: Mireya Lagunas RN) 0933 (Given - Provider: Linda Stevens RN) PRN Medication Order 06/07/2025 06/08/2025 06/09/2025 acetaminophen (Tylenol) suppository 650 mg(Linked Group 2) 650 mg, Rectal, Every 6 hours PRN, fever, For temp greater than 100.4 F (38 C), Starting on Sun06/05/25 at 1448, Administer if oral route cannot be used. Maximum dose of acetaminophen is 4000 mg from all sources in 24 hours. 0859 (See Alternative - Provider: Noa May RN) acetaminophen (Tylenol) tablet 650 mg(Linked Group 2) 650 mg, Oral, Every 6 hours PRN, mild pain (1-3), fever, For temp greater than 100.4 F (38 C), Starting on Sun06/05/25 at 1448, Maximum dose of acetaminophen is 4000 mg from all sources in 24 hours. 0859 (Given - Provider: Noa May RN) dextrose 5 % infusion 100 mL/hr, IntraVENous, PRN, Blood sugar less than 70mg/dL, Starting on Sun06/05/25 at 1448, Start infusion following administration of dextrose 50% or glucagon. dextrose 50 % solution 12.5 g 12.5 g, IntraVENous, PRN, low blood sugar, Blood glucose less than 70 mg/dL and patient NOT ALERT or NPO., Starting on Sun06/05/25 at 1448, If patient does not respond within 5 minutes, repeat dose x1. Start D5W at 100 mL/hour until ordering provider can be reached. Repeat blood glucose in 15 minutes. If blood glucose is less than 70 mg/dL, repeat treatment and recheck blood glucose in 15 minutes x2. If using Glucostabilizer, dose as instructed per system. glucagon (human recombinant) injection 1 mg 1 mg, IntraMUSCular, PRN, low blood sugar, Blood glucose less than 70 mg/dL and patient NOT ALERT or NPO and does not have IV access., Starting on Sun06/05/25 at 1448, After administration, attempt intravenous access and start D5W at 100 mL/hr. Repeat blood glucose in 15 minutes x2 and notify provider. glucose oral gel 15 g 15 g, Oral, As needed, low blood sugar, Starting on Sun06/05/25 at 1448, If blood glucose less than 50 mg/dL and patient ALERT and NOT NPO, give 2 tubes glucose gel. If blood glucose less than 70 mg/dL and patient ALERT and NOT NPO, give 1 tube glucose gel. Repeat blood glucose in 15 minutes. If blood glucose is less than 70 mg/dL, repeat treatment and recheck blood glucose in 15 minutes x2 and notify provider. labetalol (Normodyne,Trandate) injection 10 mg 10 mg, IntraVENous, Every 4 hours PRN, high blood pressure, SBP > 150 and/or DBP 100 > and or HR > 100, Starting on Sun06/05/25 at 1610 ondansetron (Zofran) injection 4 mg(Linked Group 3) 4 mg, IntraVENous, Every 6 hours PRN, nausea, vomiting, Starting on Sun06/05/25 at 1448, 1st Line. Give IV if patient is unable to take orally. If inadequate response within 60 minutes, proceed to next-line agent or contact provider if no further options ordered. ondansetron ODT (Zofran-ODT) disintegrating tablet 4 mg(Linked Group 3) 4 mg, Oral, Every 8 hours PRN, nausea, vomiting, Starting on Sun06/05/25 at 1448, 1st Line. If inadequate response within 60 minutes, proceed to next-line agent or contact provider if no further options ordered. Patient should allow tablet to dissolve on tongue. Do not remove from blister pack until just before administering. perflutren protein A microsphere (Optison) 3 mL in sodium chloride (PF) 0.9 % 10 mL IV 0-10 mL, IntraVENous, IMG once PRN, other, Suboptimal echo image, Starting on Sun06/05/25 at 1448, For 1 dose, CV Procedural Medications, Administer via slow IVP for suboptimal echocardiogram enhancement. May administer as divided doses to reach optimal image enhancement polyethylene glycol (PEG) 3350 (Miralax) packet 17 g 17 g, Oral, Daily PRN, constipation, Starting on Sun06/05/25 at 1448, 1st line for treatment of constipation - give scheduled if no bowel movement in past 24 hours. 0900 (Given - Provider: Noa May, TYLER) traZODone (Desyrel) tablet 50 mg 50 mg, Oral, Nightly PRN, sleep, Starting on Sun06/05/25 at 1448 2240 (Given - Provider: Rhianna Yadav RN) 2 (Given - Provider: Srinath Cisneros RN) Linked Groups Order Group 1: Insulin Lispro (Humalog) injection 0-12 UnitsJump to med 0-12 Units, SubCUTAneous, 3 times daily with meals, First dose on Sun06/05/25 at 1700, Medium Dose Correction Algorithm Glucose: Dose: LESS than 150 No Insulin 150-199 2 Units 200-249 4 Units 250-299 6 Units 300-349 8 Units 350-400 10 Units Above 400 12 Units And Insulin Lispro (Humalog) injection 0-12 UnitsJump to med 0-12 Units, SubCUTAneous, Nightly, First dose on Sun06/05/25 at 2100, If eating or bolus tube feeding: Medium Dose Correction Algorithm Glucose: Dose: LESS than 150 No Insulin 150-199 2 Units 200-249 4 Units 250-299 6 Units 300-349 8 Units 350- 400 10 Units Above 400 12 Units Group 2: acetaminophen (Tylenol) tablet 650 mgJump to med 650 mg, Oral, Every 6 hours PRN, mild pain (1-3), fever, For temp greater than 100.4 F (38 C), Starting on Sun06/05/25 at 1448, Maximum dose of acetaminophen is 4000 mg from all sources in 24 hours. Or acetaminophen (Tylenol) suppository 650 mgJump to med 650 mg, Rectal, Every 6 hours PRN, fever, For temp greater than 100.4 F (38 C), Starting on Sun06/05/25 at 1448, Administer if oral route cannot be used. Maximum dose of acetaminophen is 4000 mg from all sources in 24 hours. Group 3: ondansetron ODT (Zofran-ODT) disintegrating tablet 4 mgJump to med 4 mg, Oral, Every 8 hours PRN, nausea, vomiting, Starting on Sun06/05/25 at 1448, 1st Line. If inadequate response within 60 minutes, proceed to next-line agent or contact provider if no further options ordered. Patient should allow tablet to dissolve on tongue. Do not remove from blister pack until just before administering. Or ondansetron (Zofran) injection 4 mgJump to med 4 mg, IntraVENous, Every 6 hours PRN, nausea, vomiting, Starting on Sun06/05/25 at 1448, 1st Line. Give IV if patient is unable to take orally. If inadequate response within 60 minutes, proceed to next-line agent or contact provider if no further options ordered. Scheduled Medication Order 06/29/2025 06/30/2025 07/01/2025 ascorbic acid (Vitamin C) tablet 1,000 mg 1,000 mg, Oral, Daily, First dose on 06/28/25 at 2000 0904 (Given - Provider: Fercho Coates, TYLER) 0846 (Given - Provider: Belem Cisneros, TYLER) 0810 (Given - Provider: Jocelyne Garland RN) cefTRIAXone (Rocephin) 1,000 mg in sodium chloride 0.9 % 50 mL IVPB Mini-Bag Plus (CANCELED) 1,000 mg, IntraVENous, at 100 mL/hr, Administer over 30 Minutes, Every 24 hours, First dose on 06/28/25 at 2030, Mini-Bag Plus bag, Suspected Indication (Select all that apply): Aspiration Pneumonia 2009 (New Bag - Provider: Ana Nieto, RN)2130 (Stopped - Provider: Ana Nieto, RN) 2003 (New Bag - Provider: Phyllis Hancock, RN)2037 (Stopped - Provider: Phyllis Hancock, RN) cholecalciferol (Vitamin D-3) tablet 5,000 Units 5,000 Units, Oral, Daily, First dose on 06/28/25 at 1999 09 (Given - Provider: Fercho Coates RN) 0846 (Given - Provider: Belem Cisneros, TYLER) 0810 (Given - Provider: Jocelyne Garland, TYLER) cyanocobalamin (Vitamin B-12) tablet 1,000 mcg 1,000 mcg, Oral, Daily, First dose on 06/28/25 at 1999 0902 (Given - Provider: Fercho Coates RN) 0846 (Given - Provider: Belem Cisneros RN) 0811 (Given - Provider: Jocelyne Garland RN) donepezil (Aricept) tablet 10 mg 10 mg, Oral, Daily, First dose on 06/28/25 at 1999 09 (Given - Provider: Fercho Coates RN) 0846 (Given - Provider: Belem Cisneros, TYLER) 0810 (Given - Provider: Jocelyne Garland, TYLER) insulin glargine (Lantus) injection 20 Units 20 Units, SubCUTAneous, Every morning, First dose on Sun06/29/25 at 0900 0904 (Given - Provider: Fercho Coates RN) 0847 (Given - Provider: Belem Cisneros, TYLER) 0811 (Given - Provider: Jocelyne Garland RN - Comment: BS 140) Insulin Lispro (Humalog) injection 0-12 Units(Linked Group 1) 0-12 Units, SubCUTAneous, 3 times daily with meals, First dose on 06/28/25 at 1999, Medium Dose Correction Algorithm Glucose: Dose: LESS than 150 No Insulin 150-199 2 Units 200-249 4 Units 250-299 6 Units 300-349 8 Units 350-400 10 Units Above 400 12 Units 0905 (Given - Provider: Fercho Coates RN)1211 (Not Given - Provider: Fercho Coates RN - Reason: Order parameters not met)1759 (Given - Provider: Fercho Coates RN) 0847 (Given - Provider: Belem Cisneros, TYLER)1153 (Not Given - Provider: Belem Cisneros, TYLER - Reason: Order parameters not met)1747 (Given - Provider: Belem Cisneros RN) 0735 (Not Given - Provider: Jocelyne Garland RN - Reason: Order parameters not met)1207 (Not Given - Provider: Jocelyne Garland RN - Reason: Order parameters not met) Insulin Lispro (Humalog) injection 0-12 Units(Linked Group 1) 0-12 Units, SubCUTAneous, Nightly, First dose on 06/28/25 at 2100, If eating or bolus tube feeding: Medium Dose Correction Algorithm Glucose: Dose: LESS than 150 No Insulin 150-199 2 Units 200-249 4 Units 250-299 6 Units 300-349 8 Units 350-400 10 Units Above 400 12 Units 2131 (Not Given - Provider: Ana Nieto RN - Reason: Order parameters not met) 2003 (Not Given - Provider: Phyllis Hancock RN - Reason: Order parameters not met) Insulin Lispro (Humalog) injection 8 Units 8 Units, SubCUTAneous, 2 times daily before meals, First dose on 06/29/25 at 0800 0904 (Given - Provider: Fercho Coates RN)1759 (Given - Provider: Fercho Coates RN) 0847 (Given - Provider: Belem Cisneros, TYLER)1747 (Given - Provider: Belem Cisneros, TYLER) 0811 (Given - Provider: Jocelyne Garland, TYLER - Comment: BS 140)1600 (Canceled Entry - Provider: Automatic Discharge Provider - Comment: Automatically canceled at discontinue of medication order) magnesium oxide (Mag-Ox) tablet 400 mg 400 mg, Oral, 2 times daily, First dose on 06/28/25 at 2100 0902 (Given - Provider: Fercho Coates RN)2009 (Given - Provider: Ana Nieto RN) 0846 (Given - Provider: Belem Cisneros, TYLER)2003 (Given - Provider: Phyllis Hancock, RN) 810 (Given - Provider: Jocelyne Garland, RN) melatonin tablet 5 mg 5 mg, Oral, Nightly, First dose on 06/28/25 at 2099 2009 (Given - Provider: Ana Nieto RN) 2003 (Given - Provider: Phyllis Hancock, RN) nitrofurantoin (macrocrystal-monohydr ate) (Macrobid) capsule 100 mg 100 mg, Oral, Every 12 hours scheduled (2 times per day), First dose on Sun07/01/25 at 0900, For 11 days, Suspected Indication (Select all that apply): Urinary Tract Infection 0953 (Given - Provid er: Jocelyne Garland RN) pravastatin (Pravachol) tablet 80 mg 80 mg, Oral, Nightly, First dose on 06/28/25 at 2099 2009 (Given - Provider: Ana Nieto RN) 2003 (Given - Provider: Phyllis Hancock, TYLER) rivaroxaban (Xarelto) tablet 20 mg 20 mg, Oral, Daily with breakfast, First dose on Sun06/29/25 at 0800, Anticoagulant! 0902 (Given - Provider: Fercho Coates RN) 0846 (Given - Provider: Belem Cisneros, TYLER) 08 (Given - Provider: Jocelyne Garland, TYLER) venlafaxine XR (Effexor XR) 24 hr capsule 150 mg 150 mg, Oral, Daily with breakfast, First dose on Sun06/29/25 at 0800, Capsule may be swallowed whole, or may be opened and its contents sprinkled on applesauce if consumed immediately without chewing. Do not crush or chew. 0902 (Given - Provider: Fercho Coates RN) 0846 (Given - Provider: Belem Cisneros, TYLER) 08 (Given - Provider: Jocelyne Garland, TYLER) PRN Medication Order 06/29/2025 06/30/2025 07/01/2025 acetaminophen (Tylenol) suppository 650 mg(Linked Group 2) 650 mg, Rectal, Every 6 hours PRN, fever, For temp greater than 100.4 F (38 C), Starting on 06/28/25 at 1945, Administer if oral route cannot be used. Maximum dose of acetaminophen is 4000 mg from all sources in 24 hours. acetaminophen (Tylenol) tablet 650 mg(Linked Group 2) 650 mg, Oral, Every 6 hours PRN, mild pain (1-3), fever, For temp greater than 100.4 F (38 C), Starting on 06/28/25 at 1945, Maximum dose of acetaminophen is 4000 mg from all sources in 24 hours. dextrose 5 % infusion 100 mL/hr, IntraVENous, PRN, Blood sugar less than 70mg/dL, Starting on 06/28/25 at 1945, Start infusion following administration of dextrose 50% or glucagon. dextrose 50 % solution 12.5 g 12.5 g, IntraVENous, PRN, low blood sugar, Blood glucose less than 70 mg/dL and patient NOT ALERT or NPO., Starting on 06/28/25 at 1945, If patient does not respond within 5 minutes, repeat dose x1. Start D5W at 100 mL/hour until ordering provider can be reached. Repeat blood glucose in 15 minutes. If blood glucose is less than 70 mg/dL, repeat treatment and recheck blood glucose in 15 minutes x2. If using Glucostabilizer, dose as instructed per system. glucagon (human recombinant) injection 1 mg 1 mg, IntraMUSCular, PRN, low blood sugar, Blood glucose less than 70 mg/dL and patient NOT ALERT or NPO and does not have IV access., Starting on Sun06/28/25 at 1945, After administration, attempt intravenous access and start D5W at 100 mL/hr. Repeat blood glucose in 15 minutes x2 and notify provider. glucose oral gel 15 g 15 g, Oral, As needed, low blood sugar, Starting on 06/28/25 at 1945, If blood glucose less than 50 mg/dL and patient ALERT and NOT NPO, give 2 tubes glucose gel. If blood glucose less than 70 mg/dL and patient ALERT and NOT NPO, give 1 tube glucose gel. Repeat blood glucose in 15 minutes. If blood glucose is less than 70 mg/dL, repeat treatment and recheck blood glucose in 15 minutes x2 and notify provider. ondansetron (Zofran) injection 4 mg(Linked Group 3) 4 mg, IntraVENous, Every 6 hours PRN, nausea, vomiting, Starting on 06/28/25 at 1945, 1st Line. Give IV if patient is unable to take orally. If inadequate response within 60 minutes, proceed to next-line agent or contact provider if no further options ordered. 227 (Given - Provider: Christa Torres, TYLER - Comment: pt actively dry heaving; unable to give PO at this time) ondansetron ODT (Zofran-ODT) disintegrating tablet 4 mg(Linked Group 3) 4 mg, Oral, Every 8 hours PRN, nausea, vomiting, Starting on 06/28/25 at 1945, 1st Line. If inadequate response within 60 minutes, proceed to next-line agent or contact provider if no further options ordered. Patient should allow tablet to dissolve on tongue. Do not remove from blister pack until just before administering. 227 (See Alternative - Provider: Christa Torres RN) polyethylene glycol (PEG) 3350 (Miralax) packet 17 g 17 g, Oral, Daily PRN, constipation, Starting on 06/28/25 at 1945, 1st line for treatment of constipation - give scheduled if no bowel movement in past 24 hours. 2009 (Given - Provider: Ana Nieto, TYLER) traZODone (Desyrel) tablet 50 mg 50 mg, Oral, Nightly PRN, sleep, Starting on 06/28/25 at 1945 2009 (Given - Provider: Ana Nieto, RN) 2003 (Given - Provider: Phyllis Hancock RN) Linked Groups Order Group 1: Insulin Lispro (Humalog) injection 0-12 UnitsJump to med 0-12 Units, SubCUTAneous, 3 times daily with meals, First dose on 06/28/25 at 2000, Medium Dose Correction Algorithm Glucose: Dose: LESS than 150 No Insulin 150-199 2 Units 200-249 4 Units 250-299 6 Units 300-349 8 Units 350-400 10 Units Above 400 12 Units And Insulin Lispro (Humalog) injection 0-12 UnitsJump to med 0-12 Units, SubCUTAneous, Nightly, First dose on 06/28/25 at 2100, If eating or bolus tube feeding: Medium Dose Correction Algorithm Glucose: Dose: LESS than 150 No Insulin 150-199 2 Units 200-249 4 Units 250-299 6 Units 300-349 8 Units 350- 400 10 Units Above 400 12 Units Group 2: acetaminophen (Tylenol) tablet 650 mgJump to med 650 mg, Oral, Every 6 hours PRN, mild pain (1-3), fever, For temp greater than 100.4 F (38 C), Starting on 06/28/25 at 1945, Maximum dose of acetaminophen is 4000 mg from all sources in 24 hours. Or acetaminophen (Tylenol) suppository 650 mgJump to med 650 mg, Rectal, Every 6 hours PRN, fever, For temp greater than 100.4 F (38 C), Starting on 06/28/25 at 1945, Administer if oral route cannot be used. Maximum dose of acetaminophen is 4000 mg from all sources in 24 hours. Group 3: ondansetron ODT (Zofran-ODT) disintegrating tablet 4 mgJump to med 4 mg, Oral, Every 8 hours PRN, nausea, vomiting, Starting on 06/28/25 at 1945, 1st Line. If inadequate response within 60 minutes, proceed to next-line agent or contact provider if no further options ordered. Patient should allow tablet to dissolve on tongue. Do not remove from blister pack until just before administering. Or ondansetron (Zofran) injection 4 mgJump to med 4 mg, IntraVENous, Every 6 hours PRN, nausea, vomiting, Starting on 06/28/25 at 1945, 1st Line. Give IV if patient is unable to take orally. If inadequate response within 60 minutes, proceed to next-line agent or contact provider if no further options ordered. Care Teams (unrecognized sec tion and content) Bond Analyst Relationship Specialty Start Date End Date Grecia Mccabe MD [address] [facility] [address] [place] [address] PCP - General Family Medicine 02/17/19 Bond Analyst Relationship Specialty Start Date End Date Grecia Mccabe MD [address] [facility] [address] [place], [place] [id number] PCP - General 02/17/19 Bond Analyst Relationship Specialty Start Date End Date Grecia Mccabe MD [address] [facility] [address] [place] [address] PCP - General 02/17/19 Bond Analyst Relationship Specialty Start Date End Date Grecia Mccabe MD [address] [facility] [address] [place] [address] PCP - General 02/17/19 Bond Analyst Relationship Specialty Start Date End Date Neno Iqbal MD [address] [place] [address] PCP - General Family Medicine 03/17/23 Bond Analyst Relationship Specialty Start Date End Date Neno Iqbal MD [facility] [address] PCP - General Family Medicine 03/17/23 Bond Analyst Relationship Specialty Start Date End Date Neno Iqbal MD [facility] [place] [address] PCP - General Family Medicine 03/17/23 Bond Analyst Relationship Specialty Start Date End Date Neno Iqbal MD [facility] [address] PCP - General Family Medicine 03/17/23 Bond Analyst Relationship Specialty Start Date End Date Neno Iqbal MD [address] [place] [address] PCP - General Family Medicine 03/17/23 Bond Analyst Relationship Specialty Start Date End Date Neno Iqbal MD [address] [place] [address] PCP - General Family Medicine 03/17/23 Bond Analyst Relationship Specialty Start Date End Date Neno Iqbal MD [facility] [place] [address] PCP - General Family Medicine 03/17/23 Bond Analyst Relationship Specialty Start Date End Date Neno Iqbal MD [address] [place] [phone] PCP - General Family Medicine 03/17/23 Bond Analyst Relationship Specialty Start Date End Date Neno Iqbal MD [address] [place] [phone] PCP - General Family Medicine 03/17/23 Bond Analyst Relationship Specialty Start Date End Date Neno Iqbal MD [address] [place] [phone] PCP - General Family Medicine 03/17/23 Bond Analyst Relationship Specialty Start Date End Date Grecia Mccabe MD 1 [facility] [address] [place] [address] PCP - General 02/17/19 Bond Analyst Relationship Specialty Start Date End Date Grecia Mccabe MD 1 [facility] [address] [place] [address] PCP - General 02/17/19 Bond Analyst Relationship Specialty Start Date End Date Neno Iqbal MD [address] [place] [phone] PCP - General Family Medicine 03/17/23 Bond Analyst Relationship Specialty Start Date End Date Neno Iqbal MD [facility] [place] [address] PCP - General Family Medicine 03/17/23 Team Status: Inactive Member Role Status Dates Mónica SAN Attending Provider Active Star t: October 23, 2024 End: October 23, 2024 Team Status: Active Member Role Status Dates Mónica SAN Attending Provider Active Star t: November 03, 2024 Team Status: Inactive Member Role Status Dates Mónica SAN Attending Provider Active Star t: November 03, 2024 End: November 03, 2024 Bond Analyst Relationship Specialty Start Date End Date Neno Iqbal MD [facility] [place] [address] PCP - General Family Medicine 03/17/23 Bond Analyst Relationship Specialty Start Date End Date Neno Iqbal MD [address] [place], [place] [address] [place] [address] PCP - General Family Medicine 03/17/23 Bond Analyst Relationship Specialty Start Date End Date Neno Iqbal MD [facility] [address] [facility] [place] [address] PCP - General Family Medicine 03/17/23 Bond Analyst Relationship Specialty Start Date End Date Neno Iqbal MD [address] [place], [place] [address] [address] PCP - General Family Medicine 03/17/23 Bond Analyst Relationship Specialty Start Date End Date Neno Iqbal MD [facility] [place] [address] PCP - General Family Medicine 03/17/23 01/08/25 Neno Iqbal MD [facility] [place] [address] PCP - General Family Medicine 01/09/25 Agueda Burch APRN - PROGRAM DEVELOPMENT MANAGER [address] [phone] Nurse Practitioner Nurse Practitioner Gerontology 01/09/25 Bond Analyst Relationship Specialty Start Date End Date Neno Iqbal MD [address] [place] [phone] PCP - General Family Medicine 01/09/25 Agueda Burch DYE MAKER - PROGRAM DEVELOPMENT MANAGER [address] [phone] Nurse Practitioner Nurse Practitioner Gerontology 01/09/25 Bond Analyst Relationship Specialty Start Date End Date Neno Iqbal MD [address] [place] [phone] PCP - General Family Medicine 01/09/25 Agueda Burch, DYE MAKER - PROGRAM DEVELOPMENT MANAGER [address] [phone] Nurse Practitioner Nurse Practitioner Gerontology 01/09/25 Bond Analyst Relationship Specialty Start Date End Date Neno Iqbal MD [address] [place] [phone] PCP - General Family Medicine 03/17/23 01/08/25 Bond Analyst Relationship Specialty Start Date End Date Neno Iqbal MD [address] [place] [address] PCP - General Family Medicine 01/09/25 Agueda Burch DYE MAKER - PROGRAM DEVELOPMENT MANAGER [address] [place] [phone] Nurse Practitioner Nurse Practitioner Gerontology 01/09/25 Bond Analyst Relationship Specialty Start Date End Date Neno Iqbal MD [address] [place] [phone] PCP - General Family Medicine 01/09/25 Agueda Burch, DYE MAKER - PROGRAM DEVELOPMENT MANAGER [address] [place] [phone] Nurse Practitioner Nurse Practitioner Gerontology 01/09/25 Bond Analyst Relationship Specialty Start Date End Date Neno Iqbal MD [address] [place] [phone] PCP - General Family Medicine 01/09/25 Agueda Burch, DYE MAKER - PROGRAM DEVELOPMENT MANAGER [address] [place] [phone] Nurse Practitioner Nurse Practitioner Gerontology 01/09/25 Bond Analyst Relationship Specialty Start Date End Date Neno Iqbal MD [address] [place] [phone] PCP - General Family Medicine 01/09/25 Agueda Burch, DYE MAKER - PROGRAM DEVELOPMENT MANAGER [address] [phone] Nurse Practitioner Nurse Practitioner Gerontology 01/09/25 Bond Analyst Relationship Specialty Start Date End Date Neno Iqbal MD [address] [place] [phone] PCP - General Family Medicine 01/09/25 Agueda Burch APRN - PROGRAM DEVELOPMENT MANAGER [address] [place] [phone] Nurse Practitioner Nurse Practitioner Gerontology 01/09/25 Bond Analyst Relationship Specialty Start Date End Date Neno Iqbal MD [address] [place] [phone] PCP - General Family Medicine 01/09/25 Agueda Burch DYE MAKER - PROGRAM DEVELOPMENT MANAGER [address] [place] [phone] Nurse Practitioner Nurse Practitioner Gerontology 01/09/25 Bond Analyst Relationship Specialty Start Date End Date Neno Iqbal MD [address] [place] [phone] PCP - General Family Medicine 01/09/25 Agueda Burch DYE MAKER - PROGRAM DEVELOPMENT MANAGER [address] [place] [phone] Nurse Practitioner Nurse Practitioner Gerontology 01/09/25 Bond Analyst Relationship Specialty Start Date End Date Neno Iqbal MD [address] [place] [phone] PCP - General Family Medicine 01/09/25 Agueda Burch DYE MAKER - PROGRAM DEVELOPMENT MANAGER [address] [phone] Nurse Practitioner Nurse Practitioner Gerontology 01/09/25 Bond Analyst Relationship Specialty Start Date End Date Neno Iqbal MD [facility] [place] [address] PCP - General Family Medicine 01/09/25 Agueda Burch APRN - [facility] [address] [phone] Nurse Practitioner Nurse Practitioner Gerontology 01/09/25 Neno Euceda MD [address] [place] [address] Urology 06/24/25 Bond Analyst Relationship Specialty Start Date End Date Neno Iqbal MD [facility] [place] [address] PCP - General Family Medicine 01/09/25 Agueda Burch APRN - [facility] [address] [phone] Nurse Practitioner Nurse Practitioner Gerontology 01/09/25 Neno Euceda MD [address] [place] [address] Urology 06/24/25 Goals (unrecognized section and content) Goals may be documented in a n alternate sectionGoals may be documented in an alternate section FOR RECORDS PERTAINING TO PATIENTS WHO ARE OR HAVE BEEN ENROLLED IN A CHEMICAL DEPENDENCY/SUBSTANCEABUSE PROGRAM, SOME INFORMATION MAY BE OMITTED. This clinical summary was aggregated from multiple sources. Caution should be exercised in using it in the provision of clinical care. This summary normalizes information from multiple sources, and as a consequence, information in this document may materially change the coding, format and clinical context of patient data. In addition, data may be omitted in some cases. CLINICAL DECISIONS SHOULD BE BASED ON THE PRIMARY CLINICAL RECORDS. [employer] provides no warranty or guarantee of the accuracy or completeness of information in this document.
[2025-07-03 07:12] LABS: Hematocrit 38.6 % (37-47); Hemoglobin 12.6 g/dL (12.0-15.0); Mean Corp Hgb Conc 32.6 g/dL (32-36); Mean Corpuscular Volume 89.8 fL (81-99); Mean Platelet Vol. 9.7 fl (6.2-12.0); Platelet Count 235 K/mm3 (150-450); RBC Distribution Width CV 13.1 % (11.6-14.6); RBC Distribution Width SD 42.8 fl (35.1-43.9); Red Blood Count 4.30 M/mm3 (4.2-5.4); White Blood Count 8.6 K/mm3 (4.4-11.0)
[2025-07-03 07:46] LABS: AST(SGOT) 12 U/L (<=31); Alanine Aminotransfer ALT/SGPT 5 U/L (<=34); Albumin, Serum 3.5 g/dL (3.4-4.8); Alkaline Phosphatase 50 U/L (35-104); Anion Gap 10 (5-15); BUN 20 mg/dL (4-19); BUN/Creat Ratio 21.9 RATIO (10-20); Calcium,Total 9.8 mg/dL (7.6-11.0); Carbon Dioxide 24.5 mmol/L (21.0-32.0); Chloride 104 mmol/L (98-108); Globulin 2.4 g/dL (2.2-4.2); Glucose 158 mg/dL (70-99); Potassium 4.1 mmol/L (3.3-5.1); Vitamin D,25 Hydroxy 37.8 ng/mL (30-100)
== END ==
LOC: OLS.ACW300 05:00
PROVIDERS: Visit Provider Family Medicine
DX: N39.0 Urinary tract infection, site not specified (principal); F03.B18 Unspecified dementia, moderate, with other behavioral disturbance; R41.3 Other amnesia; W19.XXXD Unspecified fall, subsequent encounter
CPT/HCPCS: 36415; 80053; 82306; 83036; 84443; 85027